=== PATIENT | female | born 1940 | race Caucasian/White ===

== ENCOUNTER → 2018-11-01 | Outpatient (CLI) | payer MEDICARE, SELFPAY ==
--- NOTE | 2018-11-01 16:27 | RAD_ITS ---
STUDY: X-RAY - LUMBAR SPINE REASON FOR EXAM: Female, 78 years old. Pain in right hip and lower back. TECHNIQUE: 3 view(s) of the lumbar spine were obtained. COMPARISON: May 02, 2015 FINDINGS: There is a grade 2 anterior spondylolisthesis of L4 on L5. There is a levoscoliosis of the lumbar spine. The bones are diffusely demineralized. There are chronic appearing compression deformities. There is diffuse demineralization with multi-level endplate spondylosis. There is multi-level degenerative disc disease with multi-level disc space narrowing. There is atherosclerotic calcification of the abdominal aorta without a demonstrated aneurysm. There is a round calcified focus within the pelvis and system with a calcified fibroid. RAD/Lumbar Spine 2 or 3 Views IMPRESSION: Levoscoliosis of the lumbar spine associated with degenerative changes of the spine, as detailed above. Atherosclerosis. Electronically Signed: Neeta Poole MD at 18:23 EDT Tel , Service support ,
--- NOTE | 2018-11-01 16:28 | RAD_ITS ---
STUDY: X-RAY - PELVIS AND RIGHT HIP REASON FOR EXAM: Female, 78 years old. Pain. TECHNIQUE: 3 views of the pelvis and hip. COMPARISON: None. FINDINGS: There is a non-specific bowel gas pattern. There are rounded calcifications within the pelvis consistent with calcified fibroids. There are vascular calcifications present. There are degenerative changes of the lumbar spine. Normal bilateral iliac wings, sacroiliac joints and visualized sacrum. Normal bilateral superior and inferior pubic rami. There are degenerative changes of the pubic symphysis. Normal bilateral ischial tuberosities. There are degenerative changes of the hips. RAD/HIP, UNI W/ Pelvis 2-3 Views IMPRESSION: Degenerative changes. Atherosclerosis. Electronically Signed: Neeta Poole MD at 17:36 EDT Tel , Service support ,
== END | disposition home or self-care (01) ==
LOC: RAD 16:24
PROVIDERS: Family Provider Physician Assistant; PCP Physician Assistant; Referring Provider Anesthesiology Pain Medicine; Visit Provider Anesthesiology Pain Medicine
DX: M54.5 Low back pain (principal); M25.551 Pain in right hip
CPT/HCPCS: 72100; 73502

== ENCOUNTER → 2019-01-21 | Outpatient (CLI) | payer MEDICARE, SELFPAY ==
[2018-11-10 14:12] VITALS: BMI 23.3
--- NOTE | 2019-01-21 16:45 | MRI_ITS ---
We are attempting to reach an attending provider to discuss findings. An addendum with communication details will be sent when the communication is complete. STUDY: MRI LUMBAR SPINE WITHOUT CONTRAST REASON FOR EXAM: Female, 78 years old. Right hip pain TECHNIQUE: Standardized fat and water weighted pulse sequences were obtained in the sagittal and axial planes. COMPARISON: None FINDINGS: T12-L1: Narrowed disc space and endplate spurring with desiccation of the disc and minimal bulging disc osteophyte complex. Normal bilateral facet joints. Normal central canal and bilateral lateral recesses. Normal bilateral intervertebral neural foramina. Normal lumbar lordosis. There is severe levo scoliosis. Normal conus medullaris that terminates at T12-L1 L1-2: There is mild compression of superior endplate of L2 demonstrating intramedullary bone marrow edema and linear fracture line.. Narrowed disc space with desiccation of disc and mild annular bulge with right foraminal disc protrusion. Right facet arthropathy.. Normal central canal. Moderate left lateral recess and neuroforaminal stenosis with more severe narrowing on the right.. L2-3: Degenerative endplate changes.. Normal disc height, desiccation and mild annular bulge. Bilateral facet arthropathy greater on the right. Normal central canal. Moderate left lateral recess and neuroforaminal stenosis with more severe narrowing on the right L3-4: Degenerative endplate changes. Old narrowing of the disc space with desiccation of the disc and moderate annular bulge.. Facet arthropathy greater on the left.. Normal central canal. Moderate bilateral recess stenosis and severe bilateral neuroforaminal stenosis. L4-5: Degenerative endplate changes. Grade 1 spondylolisthesis. Normal disc space height and mild bulging disc osteophyte complex. Bilateral facet arthropathy and thickening of ligamenta flava greater on the left. Mild narrowing of the central canal. Moderate right lateral recess and neural foraminal stenosis with more severe narrowing on the left. L5-S1: Normal endplates. Normal disc height, desiccation and minor annular bulge.. Bilateral facet arthropathy and thickening of ligamenta flava slightly more pronounced on the left. Normal central canal and bilateral lateral recesses. Mild right neuroforaminal stenosis and moderate narrowing on the left. Normal visualized sacral ala. 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 MRI/Spine Lumbar (Routine) IMPRESSION: Mild acute compression fracture of the superior endplate of L2 Severe scoliosis and degenerative changes with multilevel spinal stenosis secondary to disc disease and bony hypertrophy. Findings as above Electronically Signed: Erik Ruiz MD at 22:20 EDT , Service support ,
== END | disposition home or self-care (01) ==
LOC: MRI 16:16
PROVIDERS: Family Provider Physician Assistant; PCP Physician Assistant; Referring Provider Anesthesiology Pain Medicine; Visit Provider Anesthesiology Pain Medicine
DX: M54.9 Dorsalgia, unspecified (principal); M79.604 Pain in right leg
CPT/HCPCS: 72148

== ENCOUNTER → 2019-03-31 13:53 | Outpatient (CLI) | payer MEDICARE, SELFPAY ==
[2018-11-10 14:12] VITALS: BMI 23.3
[2019-03-31 15:02] LABS: Amphetamine Urine VISTA NEGATIVE (<1000 ng/mL); Barbiturate Urine VISTA NEGATIVE (< 200 ng/mL); Benzodiazepine Urine VISTA NEGATIVE (< 200 ng/mL); Cocaine Urine VISTA NEGATIVE (< 300 ng/mL); Ecstacy Urine VISTA NEGATIVE (< 500 ng/mL); Methadone Urine VISTA NEGATIVE (< 300 ng/mL); PCP Urine VISTA NEGATIVE (< 25 ng/mL); THC Urine VISTA NEGATIVE (< 50 ng/mL); Vista UDS pH Range 5
== END ==
PROVIDERS: Family Provider Physician Assistant; PCP Physician Assistant; Referring Provider Anesthesiology Pain Medicine; Visit Provider Anesthesiology Pain Medicine
DX: F11.20 Opioid dependence, uncomplicated (principal)
CPT/HCPCS: 80307

== ENCOUNTER → 2019-06-20 | Outpatient (CLI) | payer MEDICARE, SELFPAY ==
[2018-11-10 14:12] VITALS: BMI 23.3
--- NOTE | 2019-06-20 13:00 | SP.MBSS_ITS ---
PRIMARY / SECONDARY DIAGNOSIS: dysphagia (R13.10) REFERRING PHYSICIAN: Dr. Shad Freeman MD CURRENT DIET: regular textures, thin liquids DENTITION: WFL MENTAL STATUS: WNL RESPIRATORY STATUS: O2 via room air REASON FOR REFERRAL: The Patient is an 78 year old female referred for a modified barium swallow (MBS) study to objectively assess the Patients oropharyngeal swallow function under fluoroscopy secondary to reported post prandial globus sensation with occasional post prandial burning sensations described as moving superiorly through the esophagus; the Patient is currently under the care of a fisher swordfish (Dr. Freeman) with additional upcoming testing reported MEDICAL HISTORY: History of esophageal strictures status post dilation, gastroesophageal reflux disease, premature ventricular and atrial contraction, supraventricular tachycardia, status post cardiac radiofrequency ablation, status post total knee replacement, status post cataract surgery, status post hernia repair. PREVIOUS MODIFIED BARIUM SWALLOW STUDY: None ADDITIONAL OBJECTIVE ASSESSMENT RESULTS: 09/28/2015 upper GI study revealed moderate esophageal stricture in the upper esophagus most likely due to reflect esophagitis. 05/07/2015 upper GI series revealed an extremely large hiatal hernia with significant GE reflux; dilated esophagus with tertiary contractions and intraesophageal reflux ASSESSMENT PARAMETERS: The Patient participated in a Modified Barium Swallow (MBS) study on 06/20/2019. This study was recorded in the lateral view and images were sent to PACs for storage. Scoring was completed through each trial using the 8- point Penetration-Aspiration Scale (PAS) and summarized via the Videofluoroscopic Dysphagia Scale (VDS) and the Bolus Residue Scale (BRS), with severity scoring through the Dysphagia Severity Rating Scale (DSRS) and the Swallowing Performance Scale (SPS), and recommended diet textures through the International Dysphagia Diet Standardisation Initiative (IDDSI) RESULTS OF THE EVALUATION: The Patient presents with mastication and deglutition abilities found to be grossly within functional limits (DSRS: 1; SPS: 2) with abnormal esophageal phase findings. OBJECTIVE ASSESSMENT OF SWALLOW FUNCTION (QUANTITATIVE ? PER TRIAL): PENETRATION / ASPIRATION SCALE (CADENA): 1 = does not enter airway 2 = enters airway/above vocal folds/ejected 3 = enters airway/above vocal folds/not ejected 4 = enters airway/contacts vocal folds/ejected 5 = enters airway/contacts vocal folds/not ejected 6 = enters airway/below vocal folds/ejected 7 = enters airway/below vocal folds/not ejected despite effort 8 = enters airway/below vocal folds/no effort PENETRATION / ASPIRATION SCALE (SCORE): Thin liquid - 5 mL tsp.: 1 Thin liquids via cup (single sip): 1 Thin liquids via cup (single sip): 1 Thin liquids via cup (single sip): 1 Thin liquids via cup (sequential swallows): 2 Pudding via spoon: 1 Regular textured cookie: 1 Thin liquids via cup (single sip): 1 Thin liquids via cup (single sip): 1 OBJECTIVE ASSESSMENT OF SWALLOW FUNCTION (QUANTITATIVE ? AGGREGATE): VIDEOFLOROSCOPIC DYSPHAGIA SCALE (VDS): LIP CLOSURE: 0 (of 4) Intact BOLUS FORMATION: 0 (of 6) Intact MASTICATION: 0 (of 8) Intact APRAXIA: 0 (of 4.5) None TONGUE TO PALATE CONTACT: 0 (of 10) Intact PREMATURE BOLUS LOSS: 0 (of 4.5) None ORAL TRANSIT TIME: 0 (of 3) < 1.5s TRIGGERING OF PHARYNGEAL SWALLOW: 0 (of 4.5) Normal VALLECULAR RESIDUE: 2 (of 6) <10% LARYNGEAL ELEVATION: 0 (of 9) Normal PYRIFORM SINUS RESIDUE: 0 (of 13.5) None COATING OF PHARYNGEAL WALL: 0 (of 9) No PHARYNGEAL TRANSIT TIME: 0 (of 6) <1.0s ASPIRATION: 6 (of 12) Supraglottic penetration BOLUS RESIDUE SCALE (BRS): 2 (of 6) residue in valleculae OBJECTIVE ASSESSMENT OF SWALLOW FUNCTION (SEVERITY GRADING): DYSPHAGIA SEVERITY RATING SCALE (DSRS): 1 (within functional limits) SWALLOWING PERFORMANCE SCALE (SPS): 2 (within functional limits) OBJECTIVE ASSESSMENT OF SWALLOW FUNCTION (QUALITATIVE): ORAL PREPARATORY PHASE: competent bolus manipulation without fragmented swallowing (piecemeal deglutition); sufficient anterior oral containment during oral manipulation; preserved management of breathing / bolus formation ORAL TRANSITIONAL PHASE: no presence of transitional incompetence; no lingual discoordination (no tremor / undulations); no bolus consolidation impairments; no presence of premature posterior bolus loss. PHARYNGEAL PHASE: no functionally relevant dyssynchrony; appropriate hyolaryngeal excursion and laryngeal vestibule closure / pressure; sufficient / consistent laryngeal vestibule pressure generated to expel penetrated material; no signs of pharyngeal dysmotility; no signs of velopharyngeal impairments; ESOPHAGEAL PHASE: consolidated location of post prandial retention within the upper 3rd of the esophagus with what appears to be a rather large cricopharyngeal bar located at the C-7 location. INTERVENTION RECOMMENDATIONS AND CONSIDERATIONS: The Patient was able to comprehend information presented upon review and express recommended intake precautions (reduced bolus volume) to suggest high likelihood of compliance. I provided a brief overview of signs and symptoms of aspiration, with recommendations for the Patient to further discuss any further symptoms with the Patients primary care physician. No further skilled speech-language services warranted at this time targeting dysphagia. DIET TEXTURE RECOMMENDATIONS: Will recommend a regular textured (IDDSI: 7), thin liquid diet (IDDSI: 0) diet RECOMMENDED COMPENSATORY STRATEGIES: Consider cutting tougher textures into bite sized pieces, reduced bolus volume / rate of ingestion, seated upright at 90 degrees during PO intake, remain upright for 30-60 minutes post meal (GERD precaution) IMAGE COUNT: [id number] Jaxon Leach M.A., [employer]ER, CBIS MBSImP Certified, LSVT Certified [facility] Speech-Language Pathology Department [email or web address]
== END | disposition home or self-care (01) ==
LOC: RAD 13:06
PROVIDERS: Family Provider Physician Assistant; PCP Physician Assistant; Referring Provider Internal Medicine Gastroenterology; Visit Provider Internal Medicine Gastroenterology
DX: R13.10 Dysphagia, unspecified (principal)
CPT/HCPCS: 76000; 92611

== ENCOUNTER → 2020-01-09 | Outpatient (CLI) | payer MEDICARE, SELFPAY ==
[2019-11-09 13:06] VITALS: BMI 21.5
--- NOTE | 2020-01-09 11:51 | RAD_ITS ---
HISTORY: bilateral hip painNKI ADDITIONAL HISTORY: None provided. EXAMINATION/TECHNIQUE: XR Hips Bilateral with Pelvis when performed; 3-4 Views Bilateral Number of images including paperwork: 5 COMPARISON: None FINDINGS: BONES: No acute fracture. JOINTS: No subluxation. Moderate degenerative changes of the hips with joint space narrowing. Degenerative changes of the sacroiliac joints, symphysis pubis and visible spine. SOFT TISSUES: No distinct foreign body. Calcified uterine fibroid. Vascular calcifications. RAD/Hips B/L min 2 views w/ Pelvis IMPRESSION: Degenerative changes without acute osseous abnormality. at 0721 Reported and signed by: Tracy Clark MD Electronically Signed: Tracy Clark MD at 7:21 EDT Tel , Service support ,
== END | disposition home or self-care (01) ==
PROVIDERS: PCP Family Medicine; Referring Provider Anesthesiology Pain Medicine; Visit Provider Anesthesiology Pain Medicine
DX: M25.551 Pain in right hip (principal); M25.552 Pain in left hip
CPT/HCPCS: 73521

== ENCOUNTER → 2020-02-27 | Outpatient (CLI) | payer MEDICARE, SELFPAY ==
[2019-11-09 13:06] VITALS: BMI 21.5
== END | disposition home or self-care (01) ==
LOC: MFPLAB 16:52
PROVIDERS: PCP Family Medicine; Visit Provider Family Medicine
DX: Z20.828 Contact with and (suspected) exposure to other viral communicable diseases (principal)
CPT/HCPCS: 87635; U0003

== ENCOUNTER 2020-03-12 17:17 | Emergency (ER) | payer MEDICARE, SELFPAY ==
[2019-11-09 13:06] VITALS: BMI 21.5
[2020-03-12 17:18] VITALS: BP 100/63; PULSE 82; RESP 16; TEMP 36.2; O2SAT 96; BMI 21.4
--- NOTE | 2020-03-12 17:59 | ED.VIS.GEN ---
History of Present Illness Chief Complaint: Weakness Informant: Patient Narrative: Patient is an 79-year-old female with a past medical history of rheumatoid arthritis who presents to the emergency department for multiple complaints. She has been having significant pain in her joints including her lower extremities, hips mostly. She was taken off all of her RA medications at the beginning of February she states because of coronavirus. She did test positive after being taken off of these medications. She states that over the 1 week she was starting to get better but now she feels like she is getting much worse. She denies any shortness of breath or chest pain. She is had a mild nonproductive cough. She has had a fever that comes and goes. She denies any urinary symptoms. She denies any change in bowel habits. Denies any falls or trauma causing her joint pain. She has not been taking anything for this. She feels very weak in general. No unilateral focality to this. She has not been able to eat or drink lately given her nausea but has not been vomiting. She lives with her grandson currently. Past Medical History - Allergies and Home Meds Allergies/Adverse Reactions: Allergies amoxicillin trihydrate [From Trimox] Allergy (Verified 03/12/20 17:21) Rash Primary Care Physician: Po Ford MD [Primary Care Provider] - 3-5 Days Prior records reviewed: Yes - Rheumatoid arthritis Smoking Status: Never smoker Review of Systems All systems negative except as indicated General: Reports: Fever. Denies: Chills, Sweats Eyes: Denies: Visual changes - bilaterally, Diplopia ENT: Denies: Rhinorrhea, Sore throat Cardiovascular: Denies: Chest pain, Palpitations Respiratory: Reports: Cough. Denies: Dyspnea, Dyspnea on exertion Gastrointestinal: Reports: Abdominal pain - Chronic, at baseline, Nausea. Denies: Vomiting, Diarrhea, Melena, Hematochezia Genitourinary: Denies: Dysuria, Hematuria, Frequency Musculoskeletal: Reports: Arthralgias, Back pain, Extremity Pain Skin: Denies: Rash, Wounds Neurological: Denies: Headache, Weakness, Numbness Physical Exam Vital Signs/Narrative: Vital Signs Temp Pulse Resp BP Pulse Ox 03/12/20 17:18 97.2 F L 82 16 100/63 96 Inital Vital Signs reviewed: Yes General: Well nourished, Well developed, No Acute Distress Head: Normocephalic, Atraumatic Eyes: Perrl, EOMI ENT: No rhinorrhea, Dry mucous membranes Neck: Supple, Nontender Cardiovascular: Regular rate, Regular rhythm, No murmurs Respiratory: No distress, CTA bilaterally, Chest nontender Abdomen: Soft, Nontender, Nondistended, Normal bowel sounds Back: Nontender, Normal Inspection Extremities: Nontender, No edema. Negative for: Edema, Calf Tenderness Skin: Normal color, No rash Neurological: Alert, Cranial nerves II-XII grossly intact, Normal Strength, Normal Sensation Psychological: Normal affect, Normal Mood Diagnostic/Tx/Re-eval - Medical Decision Making Patient presents to the emergency department for joint pain that is diffuse. She has a history of RA and has been off of her prednisone and methotrexate given the immunosuppression and current pandemic. She did test positive for coronavirus 2 weeks ago. She states that she felt like she recovered from that but all of her other symptoms have been getting worse. She has been not eating or drinking well. She feels generally weak. Has been having significant joint pain. Will check basic lab work at this time. Will give [place] for symptomatic treatment. Lab work-up did not reveal any significant acute abnormalities. She is not anemic. No elevated white blood cell count. Kidney function within normal limits. Urine showed some evidence of possible UTI but she is denying any symptoms so we will send for culture and treat if this is positive. After the [place] and IV fluids she is feeling much better and would like to be discharged home. She was able to ambulate to the bathroom without any issues. This is been 2 weeks since her coronavirus test was positive but she is did start to feel better after the initial first week I do feel that she would probably benefit from restarting her prednisone and methotrexate. 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 At this time will discharge home in stable condition. Warning signs and symptoms for which to return to the ED were reviewed with her. She understands and is agreeable this plan. All questions answered. ED Disposition - Plan for ED Patient: Disposition: Home or Assisted Living Diagnosis: Joint pain, Generalized weakness Instructions: ED JOINT PAIN, ED Weakness [facility] Referrals: Po Ford MD [Primary Care Provider] - 3-5 Days
[2020-03-12] MEDS: HYDROcodone Bitartrate/Apap 5/325 Tablet PO (18:10)
[2020-03-12] MEDS: 0.9% Normal Saline 1,000 ML 999 ML IV (18:13)
[2020-03-12 18:53] LABS: Absolute Neutrophil Count 7.1 X10^3/uL (2.0-7.7); Basophil# 0.03 X10^3/uL; Basophil% 0.3 % (0-1); Eosinophil# 0.01 X10^3/uL; Eosinophils% 0.1 % (0-5); Hemoglobin 12.9 g/dL (12.0-15.0); Lymphocyte % 10.9 % (19-41); Mean Corp Hgb Conc 33.1 g/dL (32-36); Mean Corpuscular Hgb 32.3 pg (27.0-32.0); Mean Corpuscular Volume 97.7 fL (81-99); Mean Platelet Vol. 11.5 fl (6.2-12.0); Monocyte# 1.78 X10^3/uL; Monocyte% 17.7 % (0-10); NRBC Flagged by Analyzer 0 % (0-5); Neutrophil # 7.09 X10^3/uL (2.7-7.7); Neutrophil % 70.5 % (47-70); POSITIVE DIFFERENTIAL YES; Platelet Count 254 K/mm3 (150-450); RBC Distribution Width CV 13.4 % (11.6-14.6); RBC Distribution Width SD 47.8 fl (35.1-43.9); Red Blood Count 3.99 M/mm3 (4.2-5.4); White Blood Count 10.1 K/mm3 (4.4-11.0)
[2020-03-12 19:02] LABS: Differential Indicated SCAN CRITERIA MET
[2020-03-12 19:09] LABS: Anion Gap 7 (5-15); BUN 15 mg/dL (7-18); BUN/Creat Ratio 23.6 RATIO (10-20); Calcium,Total 9.2 mg/dL (8.5-10.1); Chloride 100 mmol/L (98-107); Creatinine, Serum 0.64 mg/dL (0.55-1.02); EST Glomerular Filtration Rate 95 mL/min (>60); Est Glom Filt Rate - Afr Amer 115 mL/min (>60); Glucose 97 mg/dL (74-106); Magnesium 2.1 mg/dL (1.6-2.6); Sodium Level 136 mmol/L (136-145)
[2020-03-12 19:19] LABS: Differential Comment SCANNED
[2020-03-12 19:37] LABS: Bacteria 0 SEEN /hpf (None Seen)
[2020-03-12 19:40] LABS: Color, Urine Amber (Yellow); Glucose, Dipstick Normal (Normal); Ketone-Dipstick 15 mg/dl (Negative); Leukocyte Esterase-Dipstick 500 /ul (Negative); Nitrite-Dipstick Negative (Negative); Occult Blood-Urine 10 /ul (Negative); Protein-Dipstick 30 mg/dl (Negative); Specific Gravity, Urine 1.025 (1.002-1.030); Urine Clarity Sl. Cloudy (Clear); Urine Urobilinogen 4 mg/dl (Normal)
[2020-03-12 19:45] LABS: Urine Bilirubin Dipstick 1 mg/dL (Negative)
[2020-03-12 19:49] LABS: White Blood Cells 10-25 SEEN /hpf (0-5)
[2020-03-12 19:50] LABS: Squamous Epithelial Cells - UA 0-5 SEEN /hpf (5-10)
[2020-03-12 19:51] LABS: Mucous, Urine 1+ /hpf (<or=2+); Red Blood Cells-Urine 0 SEEN /hpf (0-5); Renal Epithelial Cells 0-5 SEEN /hpf (0-5)
[2020-03-12 20:07] VITALS: BP 117/70; PULSE 74; RESP 16; O2SAT 96
== END 2020-03-12 20:07 | disposition home or self-care (01) ==
PROVIDERS: Emergency Provider Emergency Medicine; PCP Family Medicine
DX: R53.1 Weakness (principal); M06.9 Rheumatoid arthritis, unspecified
CPT/HCPCS: 80048; 81001; 83735; 84484; 85025; 96360; 96361; 99284; J7030; A4216

== ENCOUNTER 2021-02-13 10:00 | Outpatient (RCR) | payer MEDICARE, SELFPAY ==
--- NOTE | 2021-01-02 10:56 | HP.PTEVAL ---
Patient's Visit Information ESTEBAN VALERIO is a 80 year old F referred to Physical Therapy by Dr. Po Ford MD with a diagnosis of Dizzyness with walking.. Date of Evaluation: 01/02/21 Physical Therapist: Parviz Joshua, GEORGETTET, OCS, CSCS - Visit Plan Frequency: 2x /Week Duration: 4-6 Weeks Plan: 2x/week for 4-6 weeks for. 1. monitor any dizzyness for feeligns of unsteaddiness vs spinning(not present today or lately). 2. Teach and progress balance ex and LE strength ex at counter . Emphasize weight shifts, ec, foam and functional. 3. Encourage use of cane for safety - Subjective Feels dizzy. Has to be careful when she first gets up. This started in the summer insidiously. Started lying flat in bed adn ceiling started swirling for short time. Now just feeling wobbly. No falls. Balance is normal but has been less for 2-3 years. Happens when she gets up from chair, not anymore with lying or turning in bed. Activities are pretty normal just has to be very careful. Sleep is OK on meds from / [place]. Not employed. Hobbies include working in garden, is being careful and using gardening stool. Basic ADLs are going OK. Has neuropathy - Objective Walks without pushoff but I on firm flat surface. Trasnfer I with UE, steps reciprocal with two rails. Cervical aROM WFL and some pain end range rotation B. UE AROM limited in elevation and ext rotation due to RA. reflexes 2/3 bi and tri. Sensation UE WNL to gross light touch. LE Sensation inn feet at deficit to gross light touch. LE strength 4-/5, except PF whcih is 3 adn unable to heel raise or push off with gait. Obvious neuropathic gait pattern avoiding push off. Flexibilitya dn ROM WNL LE, Pes planus B with collapsing arches. - B hallpike brody. - roll test. Oculomotor: unremarkable. no nystagmus with gaze or head shake. - skew eye deviation. - ocular tilt. - head thrust. Pursuit is normal, convergence is slow. Saccades are slow adn give a little JACKSON but no dizzyness. VOR is normal albeit a little slow but no symptoms. No dizzyness able to be reproduced today but unsteadiness getting out of chair likely due to neuropathy. - Balance/Special Test Scores Functional Gait Assessment Score: 21 % Disability: 30.0000 CATSIB Score (Max score 120 seconds): 65 - Goals Goal 1:: Pt feel like balance is imroved 33% and manageable dizzyness unsteadiness. Goal Time Frame: 4-6 Weeks Goal 2:: I approp HEP to minimzie fall risk for balance and general LE ex Goal Time Frame: 4-6 Weeks Goal 3:: FGa to reduce fallr isk. Goal Time Frame: 4-6 Weeks - Rehabilitation Potential Physical Therapy Diagnosis: neuropathy creating unsteadiness with ambulation initially. Rehabilitation Potential: Fair - Anticipated Interventions Patient/Client Instruction: Educate patient on: Condition, Plan of Care For the Purpose of:: To improve muscle performance and motor function, To increase tolerance to activity/condition/position, To improve gait and locomotor functions Therapeutic Exercise to Include: Strength training, Balance training, Neuromotor development For the Purpose of:: To improve muscle performance and motor function, To increase tolerance to activity/condition/position, To improve gait and locomotor functions, To improve safety Thank you for the opportunity to evaluate your patient. For Medicare and Medicare HMO plans, please review the plan of care and approve it. It will need to be FAXED BACK to us at [phone] for Medicare purposes. For Medicare only, by signing this I certify the plan of care. Please let me know if there are questions or concerns regarding this plan of care. Physician Signature: Date:
--- NOTE | 2021-02-13 10:50 | HP.PTDCSUM_ITS ---
It has been my pleasure to treat ESTEBAN VALERIO referred by Dr. Po Ford MD, with the diagnosis of Dizzyness with walking. for a total of 6 visit(s). Discharge Date: 02/13/21 Please see the following information for a summary of their discharge status. Subjective: I think I am doing better. Not llurching so much when I walk. I can walk outside on eneven ground. No dizzyness with exercises , only if gets up too fast momentarily. HEP going well. % Improvement: 60 Objective/Function: FGA is +3 and patient has gained I with HEP. May talk to doctor about general strengthening exercises as she does have silver sneakers as an option but is not 100% sure what to do out in the gym(PT vs vocational trainer) Goal 1:: Pt feel like balance is imroved 33% and manageable dizzyness unsteadiness. Goal Progress: Goal Met Goal 2:: I approp HEP to minimzie fall risk for balance and general LE ex Goal Progress: Goal Met Goal 3:: FGa to reduce fallr isk. Goal Progress: Goal Met Plan: d/c to HEP, pt had visit from son which pushed her therapy back for a week or more and she ran out of time for all visits but doing well despite that. If there are questions or concerns regarding this patient's physical therapy, please feel free to call me at [phone]. Thank you for the referral of this patient. Sincerely, Parviz Joshua, DPT, OCS, CSCS Balance/Gait/Functional tests - Balance/Special Test Scores Functional Gait Assessment Score: 24 % Disability: 20.0000 CATSIB Score (Max score 120 seconds): 65 Lower Extremity Functional Score: 43
== END 2021-02-13 19:00 | disposition home or self-care (01) ==
LOC: PT 10:00
PROVIDERS: PCP Family Medicine; Referring Provider Family Medicine; Visit Provider Family Medicine
DX: R42 Dizziness and giddiness (principal)
CPT/HCPCS: 97110; 97162

== ENCOUNTER 2021-03-06 11:48 | Emergency (ER) | payer MEDICARE, SELFPAY ==
[2021-03-06 11:49] VITALS: BP 155/96; PULSE 83; RESP 16; TEMP 36.3; BMI 23.0
--- NOTE | 2021-03-06 12:13 | ED.VIS.BACK ---
HPI History of Present Illness Chief Complaint: Back Onset/Context/Timing Onset: Weeks (1) Context: - (Unsure of exact onset, thinks it was severe fairly quick but does not remember what she was doing or the exact day of onset last week) Injury: - (No injury) Timing: Continuous Quality: Aching Location: - (Mid back bilateral/across without radiation) Current Severity: Severe Maximum Severity: Severe Worsened by: improves with Movement Relieved by: Remaining Still Associated Symptoms Associated Symptoms: Abdominal Pain; Negative for Numbness, Tingling, Radiation to Right Leg, Radiation to Left Leg, Fever, Dysuria, Unable to Ambulate, Unable to Transfer, Urinary Retention, Urinary Incontinence, Constipation and Fecal Incontinence Narrative Narrative: Patient states for about the last week she has had this pain in her mid back as well as burning abdominal pain up the middle toward her esophagus/chest. All of this has been constant. She states she takes acid reflux medication and it apparently is not working because she associates this burning abdominal discomfort with reflux that she has had off and in the past. States she had a stomach surgery in [place], she is not sure which she had done but denies weight loss surgery or a Rosemary. Other than the burning esophagus discomfort she denies any other chest symptoms/angina/pain. No dyspnea or palpitations. No focal neurologic symptoms, no radiation of pain down her legs. Pain is not really in her low back it is intermittent upper back, below the scapula. Also states in the same period of time her knees have been more sore than usual, they were both replaced, with the right one being worse and warm but not red. She is stable to move them and walk on them. [facility] Medical History MVP (mitral valve prolapse) Premature atrial contraction Premature ventricular contraction Supraventricular tachycardia Home Medications methotrexate sodium (PF) 75 mg IM QWEEK 11/29/13 [History Last Taken Unknown] prednisone 5 mg PO DAILY 11/29/13 [History Last Taken Unknown] alendronate 70 mg tablet 70 mg PO QWEEK 11/10/18 [History Last Taken Unknown] folic acid 400 mcg tablet 0.8 mg PO DAILY@0800 tab 11/10/18 [History Last Taken Unknown] multivitamin 1 tab PO DAILY 11/10/18 [History Last Taken Unknown] tofacitinib 5 mg tablet 5 mg PO BID 11/10/18 [History Last Taken Unknown] tramadol 50 mg tablet 50 mg PO BID 11/09/19 [History Last Taken Unknown] celecoxib 200 mg capsule 200 mg PO DAILY PRN cap 12/12/20 [History Last Taken Unknown] famotidine 20 mg tablet 20 mg PO BID 12/12/20 [History Last Taken Unknown] loratadine 10 mg tablet 10 mg PO DAILY PRN 12/12/20 [History Last Taken Unknown] hydrocodone-acetaminophen 1 tab PO Q4H PRN PRN 2 Days #10 tablet 03/06/21 [Rx Last Taken Unknown] Allergy/AdvReac Type Severity Reaction Status Date / Time amoxicillin trihydrate Allergy Rash Verified 12/12/20 13:32 [From Trimox] Family History Father CAD (coronary artery disease) CVA (cerebral vascular accident) Hypertension Brother CAD (coronary artery disease) Mother No problems noted. Surgical History H/O total knee replacement History of cardiac radiofrequency ablation (~2000) Hx of cataract surgery Hx of hernia repair Social History Smoking Status: Never smoker ROS ROS ED Constitutional Constitutional ED: Denies chills or fever(s) Eyes Eyes: Denies change in vision or diplopia ENT ENT ED: Denies rhinorrhea or sore throat Cardiovascular Cardiovascular: Reports chest pain; Denies palpitations Respiratory/Chest Respiratory/Chest: Denies cough or dyspnea Gastrointestinal Gastrointestinal: Reports abdominal pain; Denies diarrhea, nausea or vomiting Genitourinary Genitourinary ED: Denies dysuria or hematuria Musculoskeletal Musculoskeletal: Reports as per HPI, back pain, extremity pain and joint pain; Denies neck pain Integumentary Denies abscess or rash Neurologic Neurologic: Denies headache(s), paresthesias or weakness Psychiatric Psychiatric: Denies anxiety or suicidal thoughts EXAM Physical Exam Const Vital Signs: 03/06/21 11:49 03/06/21 13:18 03/06/21 15:02 Temperature 97.3 F L Temperature Source Temporal Pulse Rate 83 62 80 Respiratory Rate 16 22 H 18 Blood Pressure 155/96 H 136/65 H 154/63 H Blood Pressure Mean 115 88 93 Pulse Ox 97 98 Oxygen Delivery Method Room Air Room Air Positive well nourished and well developed General Appearance ED: well developed and NAD HEENT Reports moist mucous membranes normocephalic and atraumatic Eyes PERRL and EOMs intact bilaterally Neck full ROM and supple Chest Wall inspection of chest normal and palpation of chest normal Resp normal respiratory effort and clear to auscultation bilaterally Cardio regular rate, regular rhythm and no murmurs Rate: Negative for tachycardic GI non-tender and non-distended Auscultation: normoactive bowel sounds Palpation: soft Back/Spine no CVA tenderness and normal to inspection Back/Spine Narrative: Straight leg raises increase her mid upper back pain but no radicular symptoms General Back: other FROM Lumbar Spine / Lower Back: straight leg raise negative bilaterally Extremity normal to inspection Extremity Narrative: Both knees normal-appearing with well-healed TKA scars and full range of motion without apparent difficulty without effusions. The right one is warmer than the left. There is no erythema or abnormal skin. General Extremety ED: Negative for edema, pulses abnormal or tenderness General Extremity: Negative for edema or pulses abnormal Neuro oriented x3, CN's II-XII intact bilaterally and no sensory deficits noted Sensorium / Orientation: awake and alert Motor Exam: strength 5/5 throughout Skin no rashes or lesions noted and no wounds MDM MDM MDM Narrative Medical decision making narrative: Patient was given morphine for pain which did take the edge off. She was seen by nursing walking comfortably to and from the bathroom but then moaning in pain whenever she would lay in bed. Given this patient's age, there is a wide differential diagnosis including musculoskeletal etiologies, aortic catastrophes, pulmonary embolus, pancreatitis, diverticulitis, cholecystitis, as well as sensory peripheral neuropathy in the thoracic spine. Therefore CTA of the chest abdomen pelvis was performed, it is negative for any obvious explanation of her pain. Incidentally it does show a right ovarian cystic mass 6x4, of unknown etiology. I discussed this with the patient, including the possibility that it could represent something malignant, and she does indicate that she wants to explore this more so she will be referred to gynecology since she does not have a local 1. She also does not have a PCP since she saw Dr. Ford and he retired and she has not been reassigned anyone to this point that she knows of. On reevaluation, she also states that she sees pain management. She sees him for her low back which she did not tell me early on in the history, and then goes on to say that the pain she has had in the past week or so has been completely different than her chronic low back pain that she associates with her rheumatoid arthritis, and this has indeed been higher. She will be given a short prescription for some analgesics, referral to gynecology and primary care. She is comfortable with that plan. Lab Data Attestation: I reviewed the patient's lab results. Labs: Laboratory Results - last 24 hr 03/06/21 03/06/21 03/06/21 12:20 12:20 13:55 WBC 5.8 RBC 3.81 L Hgb 12.1 Hct 37.6 MCV 98.7 MCH 31.8 MCHC 32.2 RDW Std Deviation 52.8 H RDW Coeff of Eusebio 14.8 H Plt Count 331 MPV 10.9 Immature Gran % (Auto) 0.300 Neut % (Auto) 79.9 H Lymph % (Auto) 9.4 L [place] % (Auto) 9.4 Eos % (Auto) 0.5 Baso % (Auto) 0.5 Absolute Neuts (auto) 4.6 Absolute Lymphs (auto) 0.54 L Nucleated RBC % 0 Differential Comment SCANNED Sodium 140 Potassium 4.4 Chloride 107 Carbon Dioxide 28.0 Anion Gap 5 BUN 18 Creatinine 0.81 Estim Creat Clear Calc 44.30 Est GFR (MDRD) Af Amer 87 Est GFR (MDRD) Non-Af 72 BUN/Creatinine Ratio 22.2 H Glucose 104 Calcium 9.2 Total Bilirubin 0.40 AST 28 ALT 16 Alkaline Phosphatase 103 Troponin I High Sens 6 Total Protein 6.9 Albumin 3.3 Globulin 3.6 Albumin/Globulin Ratio 0.9 Lipase 83 Urine Color Yellow Urine Clarity Sl. Cloudy Urine pH 7.0 Ur Specific [place] 1.010 Urine Protein Negative Urine Glucose (UA) Normal Urine Ketones Negative Urine Occult Blood Negative Urine Nitrite Negative Urine Bilirubin Negative Urine Urobilinogen Normal Ur Leukocyte Esterase 100 H Urine RBC 0 SEEN Urine WBC 0-5 SEEN Ur Squamous Epith Cells 0-5 SEEN Urine Bacteria 0 SEEN Urine Mucus 0 SEEN Radiography Diagnostic Testing: Clinical Impression(s) from Imaging Studies Chest/Abdomen/Pelvis CTA 03/06/21 13:30 IMPRESSION: No evidence of aortic dissection. Mild scarring at the lung bases. Enlarged calcified fibroid uterus. There is a 5.7 cm x 3.8 cm right ovarian cystic mass. Electronically Signed: Tanner Clemens MD at 14:08 EDT , Service support , Discharge Plan Triage Chief Complaint: Back ED Provider: Eb Kendrick Dx/Rx/DC Orders Clinical Impression: Acute bilateral thoracic back pain, Mass of right ovary, Chronic low back pain Instructions: ED Back Care Tips Prescriptions: New hydrocodone-acetaminophen [hydrocodone-acetaminophen] 1 TABLET tablet 1 tab PO Q4H PRN PRN (Reason: Pain) 2 Days Qty: 10 RF: 0 No Action Xeljanz 5 mg tablet 5 mg PO BID RF: 0 alendronate [Fosamax] 70 mg tablet 70 mg PO QWEEK RF: 0 multivitamin Tablet 1 tab PO DAILY RF: 0 tramadol 50 mg tablet 50 mg PO BID RF: 0 loratadine [Claritin] 10 mg tablet 10 mg PO DAILY PRNRF: 0 famotidine 20 mg tablet 20 mg PO BID RF: 0 prednisone 5 MG tablet 5 mg PO DAILY RF: 0 methotrexate sodium (PF) 25 MG/ML solution 75 mg IM QWEEK RF: 0 folic acid 400 mcg tablet 0.8 mg PO DAILY@0800 RF: 0 celecoxib 200 mg capsule 200 mg PO DAILY PRNRF: 0 Primary Care Provider: Care Physician,No Primary Referrals: Cade Pond MD [STAFF PHYSICIAN] - (call for follow up appt) Batool Marsh MD [STAFF PHYSICIAN] - (Call to make an appointment for further evaluation of right ovarian mass) Care Physician,No Primary [Primary Care Provider] - Disposition Disposition: Home, Self Care
[2021-03-06] MEDS: Ondansetron 4 MG/2 ML Vial IV (12:23)
[2021-03-06] MEDS: Morphine 4 MG/ML Syringe IV (12:23)
[2021-03-06] MEDS: Contrast Allergy Safety Check IV (12:26)
[2021-03-06 12:29] LABS: Absolute Lymphocyte Count 0.54 X10^3/uL (0.83-4.51); Absolute Neutrophil Count 4.6 X10^3/uL (2.0-7.7); Basophil# 0.03 X10^3/uL; Basophil% 0.5 % (0-1); Eosinophil# 0.03 X10^3/uL; Eosinophils% 0.5 % (0-5); Hematocrit 37.6 % (37-47); Hemoglobin 12.1 g/dL (12.0-15.0); Lymphocyte # 0.54 X10^3/ul (0.83-4.51); Lymphocyte % 9.4 % (19-41); Mean Corp Hgb Conc 32.2 g/dL (32-36); Mean Corpuscular Hgb 31.8 pg (27.0-32.0); Mean Corpuscular Volume 98.7 fL (81-99); Mean Platelet Vol. 10.9 fl (6.2-12.0); Monocyte# 0.54 X10^3/uL; Monocyte% 9.4 % (0-10); NRBC Flagged by Analyzer 0 % (0-5); Neutrophil % 79.9 % (47-70); POSITIVE DIFFERENTIAL YES; Platelet Count 331 K/mm3 (150-450); RBC Distribution Width CV 14.8 % (11.6-14.6); RBC Distribution Width SD 52.8 fl (35.1-43.9); Red Blood Count 3.81 M/mm3 (4.2-5.4); White Blood Count 5.8 K/mm3 (4.4-11.0)
[2021-03-06 12:42] LABS: Differential Indicated SCAN CRITERIA MET
[2021-03-06 12:46] LABS: Differential Comment SCANNED
[2021-03-06 13:10] LABS: ALB/GLOB Ratio 0.9 RATIO (0.9-2.4); AST(SGOT) 28 U/L (15-37); Alanine Aminotransfer ALT/SGPT 16 U/L (13-56); Albumin, Serum 3.3 g/dL (3.2-5.0); Alkaline Phosphatase 103 U/L (45-117); Anion Gap 5 (5-15); BUN 18 mg/dL (7-18); BUN/Creat Ratio 22.2 RATIO (10-20); Calcium,Total 9.2 mg/dL (8.5-10.1); Chloride 107 mmol/L (98-107); Creatinine, Serum 0.81 mg/dL (0.55-1.02); EST Glomerular Filtration Rate 72 mL/min (>60); Est Glom Filt Rate - Afr Amer 87 mL/min (>60); Globulin 3.6 g/dL (2.2-4.2); Glucose 104 mg/dL (74-106); Lipase 83 U/L (73-393); Potassium 4.4 mmol/L (3.5-5.1); Protein, Total 6.9 g/dL (6.4-8.2); Sodium Level 140 mmol/L (136-145); Troponin-I HS 6 pg/mL (3.0-54.0)
[2021-03-06 13:18] VITALS: BP 136/65; PULSE 62; RESP 22; O2SAT 97
--- NOTE | 2021-03-06 13:30 | CT_ITS ---
STUDY: CTA CHEST AND CTA ABDOMEN/PELVIS WITH CONTRAST REASON FOR EXAM: Female, 80 years old. Upper back pain, abd pain RADIATION DOSAGE (If Supplied By Facility): CTDIvol = ( 14.37 ) mGy, DLP = ( 718.26 ) mGycm TECHNIQUE: The examination was performed with the intravenous administration of IV 100mL Isovue-370. Post-processing of the angiographic images was performed, with multiplanar reformation and 3D reconstruction. Individualized dose optimization techniques were used for this CT. COMPARISON: No relevant priors. FINDINGS: CTA Chest Normal enhancement of the main pulmonary artery and right and left pulmonary arteries. Normal enhancement of the bilateral peripheral pulmonary arteries. There is no demonstrated pulmonary embolism. There is atherosclerotic calcification of the aortic arch with tortuosity. There is no demonstrated aortic dissection. Normal heart and pericardium. Normal mediastinum. Normal hilar regions. Normal visualized trachea and bronchi. The lungs are well expanded. Increased linear markings at the lung bases suggestive of a linear atelectasis and/or scarring. Linear scarring and/or atelectasis in the posterolateral aspect of the right Normal pleura. Normal chest wall structures. There are degenerative changes of thoracic spine. Almost complete collapse of the T4 vertebrae. Increased kyphosis. CTAAbdomen T Pelvis The visualized lung bases are unremarkable. The visualized portions of the heart are within normal limits. Normal liver. Normal gallbladder and extrahepatic biliary system. Normal spleen. Normal pancreas. Normal bilateral adrenal glands. Normal right kidney. Normal left kidney. The patient is status post hiatal hernia repair. Normal small intestine. There are multiple colonic diverticula consistent with diverticulosis. There is evidence of surgical anastomosis in the ascending colon. The appendix is visualized and appears normal. There is scattered atherosclerotic calcification of the abdominal aorta, without a demonstrated aneurysm. Normal inferior vena cava. Normal retroperitoneum. Normal urinary bladder. The largest calcified fibroid uterus. There is a 5.7 cm x 3.8 cm right ovarian cystic mass. Normal abdominal wall. There are diffuse degenerative changes of the visualized lumbar spine. Levoscoliosis. CT/CTA Chst, Abd, Pel W and/or WO IMPRESSION: No evidence of aortic dissection. Mild scarring at the lung bases. Enlarged calcified fibroid uterus. There is a 5.7 cm x 3.8 cm right ovarian cystic mass. Electronically Signed: Tanner Clemens MD at 14:08 EDT , Service support ,
--- NOTE | 2021-03-06 14:03 | ED.RN ---
PT AMBULATED TO BATHROOM WITHOUT DIFFICULTY. UPON REENTERING ROOM WITH FAMILY PT BEGINS MOANING AND VERBALIZING DISCOMFORT WHILE GETTING INTO BED. PT. AND FAMILY UPDATED THAT RESULTS ARE PENDING.
[2021-03-06 14:06] LABS: Bacteria 0 SEEN /hpf (None Seen); Mucous, Urine 0 SEEN /hpf (<or=2+); Red Blood Cells-Urine 0 SEEN /hpf (0-5)
[2021-03-06 14:13] LABS: Color, Urine Yellow (Yellow); Glucose, Dipstick Normal (Normal); Ketone-Dipstick Negative (Negative); Leukocyte Esterase-Dipstick 100 /ul (Negative); Nitrite-Dipstick Negative (Negative); Occult Blood-Urine Negative /ul (Negative); Protein-Dipstick Negative (Negative); Urine Bilirubin Dipstick Negative (Negative); Urine Clarity Sl. Cloudy (Clear); Urine Urobilinogen Normal (Normal)
[2021-03-06 14:18] LABS: Squamous Epithelial Cells - UA 0-5 SEEN /hpf (5-10)
[2021-03-06 14:19] LABS: White Blood Cells 0-5 SEEN /hpf (0-5)
[2021-03-06 15:02] VITALS: BP 154/63; PULSE 80; RESP 18; O2SAT 98
[2021-03-06 15:30] VITALS: BP 135/78; PULSE 72
[2021-03-06] MEDS: oxyCODONE 5 MG Tablet PO (15:31)
== END 2021-03-06 15:38 | disposition home or self-care (01) ==
PROVIDERS: Emergency Provider Emergency Medicine
DX: M54.6 Pain in thoracic spine (principal); G89.29 Other chronic pain; M54.50 Low back pain, unspecified; N83.9 Noninflammatory disorder of ovary, fallopian tube and broad ligament, unspecified
CPT/HCPCS: 71275; 74174; 80053; 81001; 83690; 84484; 85025; 96361; 96374; 96375; 99285; J7040; Q9967; A4216; J2405

== ENCOUNTER → 2021-03-15 09:56 | Outpatient (CLI) | payer MEDICARE, SELFPAY ==
--- NOTE | 2021-03-15 10:03 | US_ITS ---
STUDY: ULTRASOUND OF THE FEMALE PELVIS - COMPLETE REASON FOR EXAM: Female, 80 years old. OVARIAN MA TECHNIQUE: Transabdominal COMPARISON: CT 03/06/2021 FINDINGS: The uterus is anteverted and is in a midline position. The uterus measures 5.6 x 3.8 cm. Normal uterine cervix. The endometrium measures 1.4 mm in thickness, and is hyperechoic. There is no demonstrated endometrial mass. Uterine fibroid visualized measuring 28x 27 mm. I.U.D. - The patient does not have an I.U.D. The right ovary is visualized. The right ovary measures 6 x 6 cm. There is 51 x 52mm right ovarian cyst or ovarian mass. There is no visualized right adnexal mass or complex lesion. There is normal arterial and normal venous vascularity. There is nonvisualization of the left ovary due to overlying bowel gas. There is no fluid in the cul-de-sac. Urinary bladder measures 73 cc. US/Pelvic (Non ) IMPRESSION: Fibroid uterus. Cystic lesion of the right ovary. SRU Consensus Conference guidelines (Chan, et. al. Radiology 2019;293:359-371) suggest no follow-up is necessary. Electronically Signed: Jovan Lowe MD at 16:54 EDT , Service support ,
== END ==
PROVIDERS: Referring Provider Obstetrics & Gynecology; Visit Provider Obstetrics & Gynecology
DX: N83.8 Other noninflammatory disorders of ovary, fallopian tube and broad ligament (principal)
CPT/HCPCS: 76856

== ENCOUNTER → 2021-03-28 15:08 | Outpatient (CLI) | payer MEDICARE, SELFPAY ==
[2021-03-28 17:41] LABS: Absolute Lymphocyte Count 0.69 X10^3/uL (0.83-4.51); Absolute Neutrophil Count 10.9 X10^3/uL (2.0-7.7); Basophil# 0.06 X10^3/uL; Basophil% 0.5 % (0-1); Eosinophil# 0.05 X10^3/uL; Eosinophils% 0.4 % (0-5); Hematocrit 38.4 % (37-47); Hemoglobin 12.2 g/dL (12.0-15.0); Lymphocyte # 0.69 X10^3/ul (0.83-4.51); Lymphocyte % 5.4 % (19-41); Mean Corp Hgb Conc 31.8 g/dL (32-36); Mean Corpuscular Hgb 31.9 pg (27.0-32.0); Mean Corpuscular Volume 100.3 fL (81-99); Mean Platelet Vol. 11.1 fl (6.2-12.0); Monocyte# 0.91 X10^3/uL; Monocyte% 7.2 % (0-10); NRBC Flagged by Analyzer 0 % (0-5); Platelet Count 360 K/mm3 (150-450); RBC Distribution Width CV 14.7 % (11.6-14.6); RBC Distribution Width SD 52.9 fl (35.1-43.9); Red Blood Count 3.83 M/mm3 (4.2-5.4); White Blood Count 12.7 K/mm3 (4.4-11.0)
[2021-03-28 18:18] LABS: BNP,B-Type NATRIURETIC PEPTIDE 70.8 pg/mL (0-100)
[2021-03-28 18:43] LABS: Anion Gap 5 (5-15); BUN 17 mg/dL (7-18); BUN/Creat Ratio 23.4 RATIO (10-20); Calcium,Total 10.4 mg/dL (8.5-10.1); Chloride 104 mmol/L (98-107); Creatinine, Serum 0.73 mg/dL (0.55-1.02); EST Glomerular Filtration Rate 82 mL/min (>60); Est Glom Filt Rate - Afr Amer 99 mL/min (>60); Glucose 92 mg/dL (74-106); Sodium Level 139 mmol/L (136-145)
== END ==
PROVIDERS: PCP Nurse Practitioner Family; Referring Provider Nurse Practitioner Family; Visit Provider Nurse Practitioner Family
DX: L03.90 Cellulitis, unspecified (principal)
CPT/HCPCS: 36415; 80048; 83880; 85025

== ENCOUNTER → 2021-04-24 11:52 | Outpatient (CLI) | payer MEDICARE, SELFPAY ==
--- NOTE | 2021-04-24 11:59 | BI_ITS ---
MAMMOGRAPHY - BILATERAL SCREENING REASON FOR EXAM: Female, 80 years old. Routine annual screening examination. PERTINENT HISTORY: Grandmother with breast cancer. TECHNIQUE: Digital bilateral breast star (3D mammographic acquisition) in the CC and MLO projections. 2-D mediolateral oblique (MLO) and craniocaudad (CC) views of both breasts were obtained. CAD: Full Field Digital Mammography with Computer Added Detection was performed. COMPARISON: Comparison is made with prior outside examination dated 12/02/2017. FINDINGS: Breast Composition: There are scattered areas of fibroglandular density. There are no dominant masses or suspicious calcifications. No other significant abnormalities are identified. There has been no significant change since the prior study. BI/SCRN MAMM (CAD)W/STAR BILAT IMPRESSION: Stable bilateral screening mammogram. Yearly follow-up mammogram recommended. (A) ASSESSMENT CATEGORY: BIRADS Category 1: Negative. A letter regarding these results will be sent to the patient by the facility within 30 days. Approximately 10% of breast cancers are not detected by mammography. A normal mammogram should not delay biopsy of a clinically suspicious abnormality. [id number] Electronically Signed: Tanner Clemens MD at 13:06 EST , Service support ,
--- NOTE | 2021-04-24 13:28 | US_ITS ---
STUDY: ULTRASOUND OF THE FEMALE PELVIS - COMPLETE REASON FOR EXAM: Female, 80 years old. Right ovarian cyst. LMP: Patient is postmenopausal. TECHNIQUE: Transabdominal TECHNICAL QUALITY: Adequate. COMPARISON: Comparison is made with prior study dated 03/15/2021. FINDINGS: The uterus is retroflexed and is in a midline position. The uterus measures 4.8 cm x 1.9 cm x 1.5 cm. Normal uterine cervix. The endometrium measures 1.7 mm in thickness, and is hyperechoic. There is no demonstrated endometrial mass. There is a 3.1 cm x 4.2 cm x 2.8 cm calcified fibroid. I.U.D. - The patient does not have an I.U.D. The right ovary is visualized. The right ovary measures 7 cm x 4.8 cm x 3.8 cm. There is a 6.5 cm x 4.8 cm x 3.5 cm cyst within the ovary. This has increased in size as compared to prior study. There is no visualized right adnexal mass or complex lesion. There is normal arterial and normal venous vascularity. The left ovary is non-visualized. There is no fluid in the cul-de-sac. The pre void volume of the bladder was 195.5 ml. . US/Pelvic (Non ) IMPRESSION: 3.1 cm x 4.2 cm x 2.8 cm calcified fibroid. 6.5 cm x 4.8 cm x 3.5 cm right ovarian cyst. Electronically Signed: Tanner Clemens MD at 14:50 EST , Service support ,
== END ==
PROVIDERS: PCP Nurse Practitioner Family; Referring Provider Obstetrics & Gynecology; Visit Provider Obstetrics & Gynecology
DX: Z12.31 Encounter for screening mammogram for malignant neoplasm of breast (principal); N83.201 Unspecified ovarian cyst, right side
CPT/HCPCS: 76856; 77063; 77067

== ENCOUNTER 2021-07-02 12:37 | Day surgery (SDC) | payer MEDICARE, SELFPAY ==
--- NOTE | 2021-07-01 08:48 | EKG12_ITS ---
Test Reason : PREOP Blood Pressure : / mmHG Vent. Rate : 094 BPM Atrial Rate : 094 BPM P-R Int : 130 ms QRS Dur : 070 ms QT Int : 352 ms P-R-T Axes : 065 -49 -02 degrees QTc Int : 440 ms Normal sinus rhythm with sinus arrhythmia Left axis deviation Low voltage QRS Abnormal ECG Confirmed by ORLANDO VALERIO, SRINIVAS ([id number]), photo editor MARIA TERESA JACOBS ([id number]) on 07/02/2021 6:41:52 AM Referred By: Nilda Ulrich Confirmed By:SRINIVAS PERRY MD
[2021-07-01 09:52] LABS: Absolute Lymphocyte Count 0.65 X10^3/uL (0.83-4.51); Absolute Neutrophil Count 6.2 X10^3/uL (2.0-7.7); Basophil# 0.05 X10^3/uL; Basophil% 0.6 % (0-1); Eosinophils% 2.5 % (0-5); Hematocrit 40.4 % (37-47); Hemoglobin 13.2 g/dL (12.0-15.0); Lymphocyte # 0.65 X10^3/ul (0.83-4.51); Lymphocyte % 8.1 % (19-41); Mean Corp Hgb Conc 32.7 g/dL (32-36); Mean Corpuscular Hgb 31.4 pg (27.0-32.0); Mean Corpuscular Volume 96.2 fL (81-99); Mean Platelet Vol. 12.1 fl (6.2-12.0); Monocyte# 0.96 X10^3/uL; Monocyte% 11.9 % (0-10); NRBC Flagged by Analyzer 0 % (0-5); Neutrophil # 6.18 X10^3/uL (2.7-7.7); Neutrophil % 76.5 % (47-70); POSITIVE COUNT YES; Platelet Count 296 K/mm3 (150-450); RBC Distribution Width CV 15.9 % (11.6-14.6); RBC Distribution Width SD 55.9 fl (35.1-43.9); White Blood Count 8.1 K/mm3 (4.4-11.0)
[2021-07-01 09:53] LABS: Differential Indicated SCAN CRITERIA MET
[2021-07-01 10:17] LABS: ALB/GLOB Ratio 1.1 RATIO (0.9-2.4); AST(SGOT) 32 U/L (15-37); Alanine Aminotransfer ALT/SGPT 18 U/L (13-56); Albumin, Serum 3.5 g/dL (3.2-5.0); Alkaline Phosphatase 98 U/L (45-117); Anion Gap 4 (5-15); BUN 14 mg/dL (7-18); BUN/Creat Ratio 18.3 RATIO (10-20); Chloride 107 mmol/L (98-107); Creatinine, Serum 0.76 mg/dL (0.55-1.02); EST Glomerular Filtration Rate 77 mL/min (>60); Est Glom Filt Rate - Afr Amer 93 mL/min (>60); Globulin 3.2 g/dL (2.2-4.2); Glucose 88 mg/dL (74-106); Potassium 3.9 mmol/L (3.5-5.1); Protein, Total 6.7 g/dL (6.4-8.2); Sodium Level 141 mmol/L (136-145)
[2021-07-02] VITALS (8 sets, daily range): BP systolic 106–127; BP diastolic 54–81; PULSE 45–83; RESP 16; TEMP 36.3–37; O2SAT 92–99; BMI 21.3
--- NOTE | 2021-07-02 | OV_PTH ---
PATIENT: ESTEBAN VALERIO I LOC: [facility] [place] U#:[id number] AGE/SX: 80/F ROOM: RE07/02/[address]: Dr. Nilda Ulrich DO : 1940 BED: DIS: 07/02/2021 SPEC #: [id number] RECD: 07/03/21 09:46 STATUS: PARKER JAGUAR #: [id number] YASMIN: 07/02/21 00:[address]: Nilda Ulrich DEPT: SURGICAL PATHOLOGY RECD BY: Arian Sinclair ENTERED: 07/03/21 09:47 SP TYPE: OVARY OTHR DR: Milagros Aguirre, PIE FILLING MIXER-C Tissues: Right ovary Procedures: Surgery Specimen Level V HEADER OPERATION: Diagnostic laparoscopy, salpingo-oophorectomy PRE-OP DIAGNOSIS: Right ovarian cyst TISSUE SUBMITTED: Right ovary and fallopian tube MICROSCOPIC DIAGNOSIS Right ovary and fallopian tube, salpingo-oophorectomy: Ovary with serous cystadenoma. Fallopian tube with no significant pathologic change. AM:didi 07/04/2021 MICROSCOPIC DESCRIPTION Slides are reviewed. GROSS DESCRIPTION Received in fixative is one container labeled with the patient's name and designated right ovary and fallopian tube. The specimen consists of a smooth, glistening cystic ovary measuring 5 x 3 x 1 cm. The cyst ovary appears to have been collapsed. The external surface is inked and the ovary serially sectioned to reveal smooth, glistening inner lining without papillary projections or mass lesions. The cyst wall ranges in thickness from 0.1 to 0.2 cm. The adjacent fallopian tube measures 5 cm in length and 0.4 cm in average diameter and contains a normal fimbriated end. No tubo-ovarian adhesions are identified. Manager Pet sections are submitted in two cassettes as follows: 1 ? ovary, 2 ? fallopian tube. / AM:didi 07/03/2021 TC:1 CPT: 72463
[2021-07-02] MEDS: Lactated Ringers 1,000 ML 125 ML IV (13:17)
--- NOTE | 2021-07-02 14:57 | HP.PCM_ITS ---
History and Physical Date of Admission: 07/02/21 :1940 Provider:Dr. Nilda Ulrich, DOAge/Sex: 80/F [facility] Int[facility] Vital Signs 06/19/21 10:58 Height 5 ft 3 in Weight: 117 lb BMI 20.7 BP 130/80 H Intake Visit Reasons: review US results Information Systems Security Specialist Required: No Is patient in pain?: No Allergies amoxicillin trihydrate [From Trimox] Allergy (Verified 06/19/21 10:58) Rash Medications methotrexate sodium (PF) 75 mg IM QWEEK 11/29/13 [History Confirmed 06/19/21] prednisone 5 mg PO DAILY 11/29/13 [History Confirmed 06/19/21] alendronate 70 mg tablet 70 mg PO QWEEK 11/10/18 [History Confirmed 06/19/21] folic acid 400 mcg tablet 0.8 mg PO DAILY@0800 tab 11/10/18 [History Confirmed 06/19/21] multivitamin 1 tab PO DAILY 11/10/18 [History Confirmed 06/19/21] tofacitinib 5 mg tablet 5 mg PO BID 11/10/18 [History Confirmed 06/19/21] tramadol 50 mg tablet 50 mg PO BID 11/09/19 [History Confirmed 06/19/21] celecoxib 200 mg capsule 200 mg PO DAILY PRN cap 12/12/20 [History Confirmed 06/19/21] famotidine 20 mg tablet 20 mg PO BID 12/12/20 [History Confirmed 06/19/21] loratadine 10 mg tablet 10 mg PO DAILY PRN 12/12/20 [History Confirmed 06/19/21] hydrocodone-acetaminophen 1 tab PO Q4H PRN PRN 2 Days #10 tablet 03/06/21 [Rx Confirmed 06/19/21] Is last menstrual period known: No Post menopausal: Yes Patient : No : No PFSH Medical History MVP (mitral valve prolapse) Premature atrial contraction Premature ventricular contraction Supraventricular tachycardia Surgical History H/O total knee replacement History of cardiac radiofrequency ablation (~2000) Hx of cataract surgery Hx of hernia repair Family History Father CAD (coronary artery disease) CVA (cerebral vascular accident) Hypertension Brother CAD (coronary artery disease) Mother No problems noted. Social History Smoking Status: Never smoker alcohol intake: never substance use type: does not use what type of physical activity do you participate in: none HPI Details: HUYEN VALERIO is a 80 year old who presents for follow up ultrasound of right ovarian cyst. The cyst has grown from 5 cm to 6.5 cm from March to April and the patient continues to experience worse and worse pelvic pain. Huyen is 80 years old and has lost 15 pounds since her last visit due to the discomfort this cyst has caused. She states that she does not feel like sitting up to eat because of the pressure. The report does not have any mention of complexity or malignancy. ROS Const ROS Unobtainable: All systems reviewed & are unremarkable except as noted in H Resp Resp: Reports system reviewed and no additional complaints, except as documented; Denies cough GI GI: Reports as per HPI Psych Psych: Reports system reviewed and no additional complaints, except as documented Exam Const General: cooperative, healthy appearing, comfortable and no acute distress Resp Effort & Inspection: normal respiratory effort Skin General: no rashes or lesions noted Psych Appearance: grossly normal Speech and Movement: speech and movement normal Coding Level of Care Code Off vis,est,level 4 Diagnoses Ovarian cyst, right N83.201 MVP (mitral valve prolapse) I34.1 Premature ventricular contraction I49.3 Premature atrial contraction I49.1 History of cardiac radiofrequency ablation Z98.890 Supraventricular tachycardia I47.1 Assessment and Plan Assessment and Plan (1) Ovarian cyst, right: Status: Acute (2) MVP (mitral valve prolapse): Status: Acute (3) Premature ventricular contraction: Status: Acute (4) Premature atrial contraction: Status: Acute (5) History of cardiac radiofrequency ablation: Status: Resolved Comment: For SVT (6) Supraventricular tachycardia: Status: Resolved Plan - Dr. Nilda Ulrich, DO: After discussing the patient's diagnosis and treatment plan options, patient wishes to proceed with surgical management. I have discussed with the patient the risks, benefits, and alternatives of the procedure which include but are not limited to risks of anesthesia, bleeding, infection, possible damage to bowel, bladder, or surrounding vasculature which could lead to additional surgery to evaluate any complications. Patient agrees to procedure and wishes to proceed. ACOG/uptodate references given for additional information regarding procedure. The patient's daughter was with her during the entire exam and also agrees to proceed with surgery. Huyen will need permission from her flatwork assembler prior to proceeding with the planned laparoscopic RSO. UPDATE- I have seen the patient and performed any clinically relevant updates to the history and physical exam. Nilda Ulrich,
--- NOTE | 2021-07-02 14:58 | PCM.OP.BLANK ---
Problems Associated Problem List Diagnoses (1) Ovarian cyst, right: (2) MVP (mitral valve prolapse): (3) Premature ventricular contraction: (4) Premature atrial contraction: (5) History of cardiac radiofrequency ablation: (6) Supraventricular tachycardia: Operative Report Date of Procedure: 07/02/21 Pre-operative diagnosis: enlarging 6 cm right ovarian cyst, pelvic pain Post-operative diagnosis: enlarging 6 cm right ovarian cyst, pelvic pain Surgeon: Dr. Nilda Ulrich DO Net Developer Programmer: Shalonda TROY EBL: minimal Specimens removed: right ovary and fallopian tube Urine output: 100cc Fluids: 800cc complications: none Procedure details: Patient was taken in the operating room and was placed under general anesthesia was prepped and draped in normal sterile fashion in the dorsal lithotomy position. Bladder was drained of clear urine and SCDs were on preoperatively. Uterus was sounded and a uterine manipulator was placed after dilating. Attention was then paid to the abdominal portion of the procedure and the umbilicus was elevated and injected with Marcaine and after a 5 mm incision was made, a 5 mm trocar was inserted into the abdomen under direct visualization using the laparoscope. The Abdomen was insufflated with CO2 gas. A left lower quadrant 5 mm port and a 1 mm port suprapubically were placed under direct visualization. Uterus was well visualized and bilateral fallopian tubes identified. The left ovary was noted to be normal. The right contained a 6 cm clear cyst. The right IP ligament was grasped with the 1 mm trocar grasper and the LigaSure device was used to cauterize and cut the ligament. The ovary and fallopian tube were amputated from the uterus and side wall and then placed into an endocatch bag. The specimen was drawn to the level of the skin incision and the bag was opened. the cyst wall was pierced and a clear fluid returned. The specimen was then easily slipped through the 5 mm incision. Excellent hemostasis was noted at the operative site. . Liver and upper abdomen were visualized notably within normal limits and no other gross abnormalities were seen in the abdomen. All instruments removed from the abdomen after gas was desufflated. Port sites were closed with 3-0 Monocryl Steri's and surgical glue. All instruments removed from the vagina and patient was awoken and taken recovery in stable condition. Multi Select Codes Urinary/Genital Urinary/Genital CPT Codes: 90723 Laproscopic BS/O
--- NOTE | 2021-07-02 15:07 | PCM.DC ---
Discharge Instructions Diet Discharge Diet: No restrictions Activity Discharge Activity: Return to Normal Activity, May Not Drive (for two weeks or while taking narcotic pain medications.), May Shower and May Take a Tub Bath (in 7 days) May resume sexual activity in: 1 week Weight Bearing Status: Full weight bearing Dressing / Incision Call your doctor if you observe: Using more than 1 pad per hour, Shortness of breath, Chest pain and Uncontrolled pain Suture Line Care: Avoid Pulling/Pushing and Avoid Pinching/Bending Remove Dressing in: 1 week (if present) Cleanse incision/area with: Soap & Water and Keep Dressing Clean & Dry Follow Up Care Please Follow Up With: Nilda Ulrich DO When: Call to make an appointment with your doctor for a follow up incision check in 1-2 weeks. Test Results: Test results from this visit will be discussed in further detail at your follow-up appointment, if applicable. Discharge Plan Admission Primary Reason for Your Visit: laparoscopic removal of right ovary and fallopian tube Attending Provider: Nilda Ulrich Primary Care Provider: Milagros Aguirre NP Discharge Orders/Prescriptions Prescriptions: New ibuprofen 600 mg tablet 600 mg PO Q6H PRN (Reason: pain (scale score 4-6)) 7 Days Qty: 28 RF: 0 hydrocodone-acetaminophen 2.5-325 mg tablet 1 tab PO TID PRN (Reason: pain) 3 Days RF: 0 hydrocodone-acetaminophen 2.5-325 mg tablet 1 tab PO TID PRN (Reason: pain) 3 Days Qty: 10 RF: 0 Continued alendronate [Fosamax] 70 mg tablet 70 mg PO QWEEK RF: 0 multivitamin Tablet 2 tab PO DAILY RF: 0 tramadol 50 mg tablet 50 mg PO TID RF: 0 famotidine 20 mg tablet 20 mg PO BID RF: 0 prednisone 5 MG tablet 5 mg PO DAILY RF: 0 methotrexate sodium (PF) 25 MG/ML solution 75 mg IM TH RF: 0 folic acid 400 mcg tablet 0.8 mg PO DAILY@0800 RF: 0 celecoxib 200 mg capsule 200 mg PO DAILY PRN (Reason: Pain) RF: 0 multivitamin Tablet 3 tab PO DAILY RF: 0 buprenorphine [Butrans] 10 mcg/hour patch weekly 10 mcg topical FR RF: 0 Xeljanz 5 mg tablet 5 mg PO BID RF: 0 Referrals / Follow Up: Milagros Aguirre PROJECT MANAGEMENT PROFESSIONAL, PROJECT MANAGEMENT PROFESSIONAL-C [Primary Care Provider] - Disposition Disposition (needs filled in before D/C Order can be placed): Home, Self Care
[2021-07-02] MEDS: Ketorolac 15 MG/ML Vial IV (15:34)
== END 2021-07-02 23:59 | disposition home or self-care (01) ==
LOC: SDC 12:39 → AC 12:40
PROVIDERS: PCP Registered Nurse; Referring Provider Obstetrics & Gynecology; Visit Provider Obstetrics & Gynecology
PROC: (CPT 49320; principal; 2021-07-02 14:05)
DX: D27.0 Benign neoplasm of right ovary (principal); M06.9 Rheumatoid arthritis, unspecified; G47.30 Sleep apnea, unspecified; K21.9 Gastro-esophageal reflux disease without esophagitis; Z79.899 Other long term (current) drug therapy
CPT/HCPCS: 58661; 00840; 36415; 80053; 85025; 86850; 86900; 86901; 88305; 88307; 93005; J7120; J2405

== ENCOUNTER → 2021-09-16 | Outpatient (CLI) | payer MEDICARE, SELFPAY ==
--- NOTE | 2021-09-16 10:54 | CT_ITS ---
STUDY: CT ABDOMEN AND PELVIS WITHOUT CONTRAST REASON FOR EXAM: Female, 81 years old. Possible Incisional Hernia RADIATION DOSAGE (If Supplied By Facility): CTDIvol = ( 6.17 ) mGy, DLP = ( 63.7 ) mGycm TECHNIQUE: Transaxial images were obtained from the dome of the diaphragm to the symphysis pubis without oral contrast, and without intravenous contrast. Sagittal and coronal images were reconstructed. Individualized dose optimization techniques were used for this CT. COMPARISON: Comparison is made with prior study 03/06/2021. FINDINGS: The visualized lung bases are unremarkable. Coronary artery calcification. Normal liver. Normal gallbladder and extrahepatic biliary system. Normal spleen. Normal pancreas. Normal bilateral adrenal glands. Normal right kidney. Normal left kidney. Status post hiatal hernia repair. Persistent ventral hernia is seen. Normal small intestine. There are multiple colonic diverticula consistent with diverticulosis. The appendix is visualized and appears normal. There is diffuse atherosclerotic calcification of the abdominal aorta and its major visceral branches, without a demonstrated aneurysm. Normal inferior vena cava. Normal retroperitoneum. Normal urinary bladder. Densely calcified fibroid uterus. The previously seen right-sided cystic ovarian mass is not seen at this time. No evidence of incisional hernia. There are diffuse degenerative changes of the visualized lumbar spine. Levoconvex scoliosis. Grade 1 anterior listhesis of L4 on L5. Facet joint osteoarthritis. CT/Abdomen/Pelvis without Cont IMPRESSION: Calcified fibroid uterus. Atherosclerotic calcification of the abdominal aorta and its major visceral branches. Status post hiatal hernia repair. Persistent small hiatal hernia. Electronically Signed: Tanner Clemens MD at 12:17 EDT ,
== END | disposition home or self-care (01) ==
LOC: CT 10:53
PROVIDERS: PCP Registered Nurse; Visit Provider Surgery
DX: K46.9 Unspecified abdominal hernia without obstruction or gangrene (principal)
CPT/HCPCS: 74176

== ENCOUNTER 2021-10-01 10:24 | Day surgery (SDC) | payer MEDICARE, SELFPAY ==
--- NOTE | 2021-09-30 12:48 | EKG12_ITS ---
Test Reason : PREOP Blood Pressure : / mmHG Vent. Rate : 081 BPM Atrial Rate : 081 BPM P-R Int : 132 ms QRS Dur : 070 ms QT Int : 364 ms P-R-T Axes : 080 -47 -12 degrees QTc Int : 422 ms Sinus rhythm with Premature atrial complexes Low voltage QRS Left anterior fascicular block Abnormal ECG Confirmed by QAMAR VALERIO, MERI ([id number]), editor index MARIA TERESA JACOBS ([id number]) on 10/01/2021 7:13:25 AM Referred By: RADHA Confirmed By:MERI FOOTE MD
[2021-09-30 13:30] LABS: Hemoglobin 13.2 g/dL (12.0-15.0); Mean Corp Hgb Conc 31.4 g/dL (32-36); Mean Corpuscular Hgb 30.4 pg (27.0-32.0); Mean Corpuscular Volume 96.8 fL (81-99); Mean Platelet Vol. 11.3 fl (6.2-12.0); Platelet Count 290 K/mm3 (150-450); RBC Distribution Width CV 14.6 % (11.6-14.6); RBC Distribution Width SD 51.9 fl (35.1-43.9); Red Blood Count 4.34 M/mm3 (4.2-5.4); White Blood Count 11.7 K/mm3 (4.4-11.0)
[2021-09-30 13:51] LABS: Anion Gap 2 (5-15); BUN 18 mg/dL (7-18); BUN/Creat Ratio 23.9 RATIO (10-20); Calcium,Total 9.7 mg/dL (8.5-10.1); Chloride 108 mmol/L (98-107); Creatinine, Serum 0.75 mg/dL (0.55-1.02); EST Glomerular Filtration Rate 78 mL/min (>60); Est Glom Filt Rate - Afr Amer 94 mL/min (>60); Glucose 103 mg/dL (74-106); Potassium 4.6 mmol/L (3.5-5.1); Sodium Level 141 mmol/L (136-145)
[2021-10-01] VITALS (8 sets, daily range): BP systolic 117–134; BP diastolic 61–84; PULSE 65–90; RESP 15–18; TEMP 36.4–37.2; O2SAT 90–98; BMI 19.9
[2021-10-01] MEDS: Lactated Ringers 1,000 ML 15 ML IV (10:40)
--- NOTE | 2021-10-01 11:39 | PCM.HP.BLA ---
History and Physical Date of Admission: 10/01/21 Date of Service: 09/16/21 MR#:[id number]:[id number]: ESTEBAN VALERIO [facility] #:[id number]:[id number] Provider:Nita Greene/Sex: 81/F [facility] Vital Signs 09/16/21 09:33 Height 5 ft 3 in Weight: 114 lb 4 oz BMI 20.2 BP 133/82 H Blood Pressure Location Rt brachial Position Sitting Respiration 17 Pulse 70 Pulse Source Monitor Temp 97.2 F L Temp Source Temporal Pulse Oximetry (%) 96 Oxygen Delivery Method room air Intake Visit Reasons: ABDOMINAL HERNIA Chief Complaint: Incisional Hernia Pilot Safety Inspector Required: No Is patient in pain?: No Allergies amoxicillin trihydrate [From Trimox] Allergy (Verified 09/16/21 09:34) Rash Medications methotrexate sodium (PF) 75 mg IM TH 11/29/13 [History Confirmed 09/16/21] prednisone 5 mg PO DAILY 11/29/13 [History Confirmed 09/16/21] alendronate 70 mg tablet 70 mg PO QWEEK 11/10/18 [History Confirmed 09/16/21] folic acid 400 mcg tablet 0.8 mg PO DAILY@0800 tab 11/10/18 [History Confirmed 09/16/21] celecoxib 200 mg capsule 200 mg PO DAILY PRN cap 12/12/20 [History Confirmed 09/16/21] Xeljanz 5 mg PO BID 06/25/21 [History Confirmed 09/16/21] multivitamin 3 tab PO DAILY 06/25/21 [History Confirmed 09/16/21] ibuprofen 600 mg PO Q6H PRN 7 Days #28 tab 07/02/21 [Rx Confirmed 09/16/21] sertraline 50 mg tablet 50 mg PO DAILY 09/09/21 [History Confirmed 09/16/21] buprenorphine 10 mcg/hour weekly transdermal patch 5 mcg TOPICAL QWEEK ea 09/16/21 [History Confirmed 09/16/21] tramadol 50 mg tablet 50 mg PO DAILY tab 09/16/21 [History Confirmed 09/16/21] PFSH Medical History Arthritis Back pain Cardiology follow-up encounter Easy bruising Gastric reflux History of hiatal hernia History of irregular heartbeat History of pain when walking History of steroid therapy Injury of back MVP (mitral valve prolapse) Normal stress echocardiogram Post-menopausal Premature atrial contraction Premature ventricular contraction Rheumatoid arthritis Sleep apnea Supraventricular tachycardia Wears contact lenses Wears glasses Surgical History H/O total knee replacement History of cardiac radiofrequency ablation (~2000) Hx of cataract surgery Hx of hernia repair Hx of kyphoplasty Family History (Updated 09/16/21 @ 09:28 by Geraldine Thursday) Father CAD (coronary artery disease) CVA (cerebral vascular accident) Hypertension Heart disease Brother CAD (coronary artery disease) Mother Osteoporosis Social History Smoking Status: Never smoker alcohol intake: never substance use type: does not use what type of physical activity do you participate in: none HPI HPI HPI: ESTEBAN VALERIO, is a 81 F who presents to the office today for left lower quadrant hernia patient states she had laparoscopic surgery in June for laparoscopic oophorectomy states that right after surgery she noticed a bulge in the left lower quadrant trocar site which is a 5 mm. Patient states the last 2 to 3 weeks she has had pain at that site with the bulge, patient states the bulge always comes back after reducing. Patient did not does not have constant pain at the site but again its been more frequent recently. Patient states that she pushes hard she needed to go back in. Patient is tolerating diet and having bowel function. ROS General General: Yes weight change and fatigue; No appetite, colon cancer or breast cancer HEENT HEENT: Yes difficulty swallowing and eye surgery; No eye injury, swollen glands or hoarseness Endo Endocrine: No thyroid disease, diabetes mellitus, thyroid cancer, Hair loss, heat intolerance or cold intolerance Skin Skin: No rash or changing moles Musc Musculoskeletal: Yes back problems, arthritis and rheumatoid arthritis; No gout or joint pain Cardio Cardiovascular: No murmur, pacemaker, heart disease, atrial fibrillation, high blood pressure, heart attack, heart stent, palpitations, shortness of breat with exertion or chest pain Psych Psychiatric: No depression, anxiety or hearing voices Resp Respiratory: No shortness of breath, Yes sleep apnea, No cough, No COPD, No asthma, No emphysema and No wheezing Gastro Gastrointestinal: Yes abdominal pain, Yes nausea or vomiting, No diarrhea, Yes constipation, No blood in stool, No acid reflux, No hemorrhoids, No ulcers, No gallbladder problem and No black,tarry stools Luis Daniel Hematologic: No blood thinners, No blood disorders, No bleeding, No anemia and No blood clots Neuro Neurologic: No abnormal speech and No confusion Exam Const General: cooperative, healthy appearing, comfortable and no acute distress Neck Neck: normal visual inspection Resp Effort & Inspection: normal respiratory effort Cardio Rate: regular rate GI Inspection: non-distended Palpation: soft, no guarding, hernia (Left lower quadrant likely incisional) and tender in the LLQ (Hernia on exam believe it is reducible however it still difficult to tell as it recurs almost immediately and patient is quite slender); with no rebound tenderness Skin General: no rashes or lesions noted Neuro General: patient oriented x3 Psych Affect: normal affect COVID (Procedure Consent) Procedure Criteria Procedure Criteria: Yes Elective The surgeon/proceduralist and patient have discussed in detail the risk of exposure to and/or potential harm posed by the COVID-19 virus with having a surgery/procedure at this time versus the risk of delaying the surgery/procedure. It is not possible to know either the risk of delaying the surgery or procedure or chance of getting an infection with perfect accuracy, but a joint decision was made between the patient and the surgeon/proceduralist to proceed at this time with the scheduled surgery/procedure as indicated on the consent form. Assessment and Plan Assessment and Plan (1) Incisional hernia: Status: Acute Plan - Dr. Maria Victoria Campoverde MD: Plan to check a CT abdomen pelvis without contrast to better evaluate the hernia does seem to reduce in office but does immediately recur unsure if this is just due to weakness in the wall or if it could be a possible spigelian due to location just medial to the iliac and just happens to be where the previous incision was. Discussed with patient and her daughter would plan for repair either open at the site if it is incisional or if spigelian with plan to likely start laparoscopically but still does plan on permanent sutures and no mesh. Discussed the procedure with the patient and her daughter including risk of bleeding, infection, injury to another organ, and anesthesia. Will call patient with CT abdomen pelvis results to discuss plan for surgery further and then schedule. Maria Victoria Campoverde M.D. Pager: [phone] [facility] [address] [place] [address], [facility], [address] [place] [address] Office: [phone] Plan Details Other Orders: Orders: Abdomen/Pelvis without Cont Today K46.9 Coding Level of Care Code Off vis,new,level 4 Diagnoses Incisional hernia K43.2 09/16/21 1118<Electronically signed by Maria Victoria Campoverde MD>Date Maria Victoria Campoverde MD
[2021-10-01] MEDS: Clindamycin 900 MG/50 ML BAG 75 MG IV (11:56)
[2021-10-01] MEDS: Bupivacaine Mpf 0.5% 30 ML VIAL (11:58)
--- NOTE | 2021-10-01 12:55 | PCM.OPRPT ---
Report of Operation Date of Procedure: 10/01/21 Pre-Operative Diagnosis: Left lower quadrant incisional hernia Post-Operative Diagnosis: Same Surgery/Procedure Performed:: Repair of left lower quadrant abdominal incisional hernia Surgeon: Maria Victoria Campoverde temperature regulator: Caridad Nj Type of Anesthesia: Local MAC Anesthesiologist: Bi Aquino Special Medications: Clindamycin 900 mg IV x1 Specimen's removed: None Estimated Blood Loss (mL): <10 cc Description of Procedure: Patient was brought into the operating placed plan operating table. Timeout was completed verifying correct patient, procedure, site, positioning cervical vertebrae beginning procedure. MAC anesthesia was induced. Abdomen was prepped draped in a sterile fashion with chlorhexidine. The previous left lower quadrant trocar site was infiltrated with 0.5% Marcaine and an incision was made with 15 blade scalpel. This was deepened to the fascia. Hernia defect was identified about 7 mm in size. Intra-abdominal contents were reduced. Peritoneum was closed with 0 Vicryl [id number] suture. Fascia was closed with 0 Prolene [id number] suture. Skin was closed closed with 4-0 Monocryl. Dressed with OpSite. Patient tolerated procedure well. Taken to the postanesthesia care unit in stable condition. Complications none
--- NOTE | 2021-10-01 12:58 | DCINST_ITS ---
Discharge Instructions Diet Discharge Diet: Light diet - advance as tolerated Activity Discharge Activity: May Not Drive (while taking narcotic pain medications.) May shower in (days): 1 Lifting Restrictions: no lifting >20 lbs x 2 wks, no strenuous exercise for 4 wks Dressing / Incision Call your doctor if your incision/area has: Continuous Slow Oozing, Sudden Increased Bleeding, Increased Pain/ Swelling, Increased Redness, Foul Smelling Discharge and Swelling at the incision site Call your doctor if you observe: Fever of 101 or Higher Remove Dressing in: 2 days Cleanse incision/area with: Soap & Water Additional Dressing/Incision Instructions:: Steri-Strips will fall off in 7 to 10 days, if they do not fall off okay to remove after 10 days. Follow Up Care Please Follow Up With: Maria Victoria Campoverde MD When: Call the office for a follow-up appointment 2 weeks; after 5 PM and on the weekends call [phone] with any concerns. Test Results: Test results from this visit will be discussed in further detail at your follow-up appointment, if applicable. Discharge Plan Admission Attending Provider: Maria Victoria Campoverde Primary Care Provider: Milagros Aguirre NP Discharge Orders/Prescriptions Prescriptions: New oxycodone-acetaminophen 5-325 mg tablet 1 tab PO Q6H PRN (Reason: pain) 2 Days Qty: 3 RF: 0 Continued alendronate [Fosamax] 70 mg tablet 70 mg PO QWEEK RF: 0 tramadol 50 mg tablet 50 mg PO DAILY RF: 0 sertraline 50 mg tablet 50 mg PO DAILY RF: 0 prednisone 5 MG tablet 5 mg PO DAILY RF: 0 folic acid 400 mcg tablet 0.8 mg PO DAILY@0800 RF: 0 celecoxib 200 mg capsule 200 mg PO DAILY PRN (Reason: Pain) RF: 0 multivitamin Tablet 3 tab PO DAILY RF: 0 buprenorphine [Butrans] 10 mcg/hour patch weekly 5 mcg topical QWEEK RF: 0 Held methotrexate sodium (PF) 25 MG/ML solution 75 mg IM TH RF: 0 Hold Instructions: Resume on 10/15/21. Xeljanz 5 mg tablet 5 mg PO BID RF: 0 Hold Instructions: Resume on 10/15/21. Other Ambulatory Orders: 12 Lead EKG (Routine) Timeframe: [id number] Location: None Selected Ordered By: Dr. Parviz Escalona Referrals / Follow Up: Milagros Aguirre CREDIT HISTORIAN, CREDIT HISTORIAN-C [Primary Care Provider] - Disposition Disposition (needs filled in before D/C Order can be placed): Home, Self Care
[2021-10-01] MEDS: oxyCODONE 5 MG Tablet PO (14:25)
[2021-10-01] MEDS: Acetaminophen 325 MG Tablet PO (14:25)
== END 2021-10-01 14:44 | disposition home or self-care (01) ==
LOC: SDC 10:25 → AC 10:25
PROVIDERS: Anesthesiology; PCP Registered Nurse; Referring Provider Surgery; Visit Provider Surgery
PROC: (CPT 49560; principal; 2021-10-01 11:45)
DX: K43.2 Incisional hernia without obstruction or gangrene (principal); G47.30 Sleep apnea, unspecified; K21.9 Gastro-esophageal reflux disease without esophagitis
CPT/HCPCS: 49560; 00752; 36415; 80048; 85027; 93005; J7120; J2405

== ENCOUNTER 2021-10-18 16:51 | Emergency (ER) | payer MEDICARE, SELFPAY ==
[2021-10-18 16:52] VITALS: BP 190/100; PULSE 100; RESP 16; TEMP 37.2; O2SAT 98
--- NOTE | 2021-10-18 17:13 | EDS_ITS ---
HPI History of Present Illness HPI Narrative: Patient presents with right hand, left shoulder, neck, and back pain that began this morning. Patient states she woke up with the pain this morning. Patient has a history of rheumatoid arthritis. Patient states her pain is aching. Patient states it is worse with any movement. Patient denies any trauma or injury. Patient states she had her medications stopped for recent surgery. Patient states she started back on her medications 3 days ago. Patient states she took them Thursday, Thursday, and . Patient states she did not take them today because her stomach was upset. Patient admits to nausea but denies any vomiting. Patient admits to some urinary frequency. Chief Complaint: Upper Extremity Injury Informant: patient Onset/Context/Timing Onset: Today Context: Sudden Onset Timing: Continuous Quality of Pain: Aching Location: Right hand, left shoulder, neck, back Worsened by: Movement Relieved by: Nothing Associated Symptoms Associated Symptoms: Negative for Parasthesia, Weakness and Loss of Funtion PFSH PFSH Medical History Arthritis Back pain Cardiology follow-up encounter Easy bruising Gastric reflux History of hiatal hernia History of irregular heartbeat History of pain when walking History of steroid therapy Injury of back MVP (mitral valve prolapse) Normal stress echocardiogram Post-menopausal Premature atrial contraction Premature ventricular contraction Rheumatoid arthritis Sleep apnea Supraventricular tachycardia Wears contact lenses Wears glasses Home Medications methotrexate sodium (PF) 75 mg IM TH 11/29/13 [History Last Taken 09/16/21] prednisone 5 mg PO DAILY 11/29/13 [History Last Taken 07/02/21] alendronate 70 mg tablet 70 mg PO QWEEK 11/10/18 [History Last Taken Unknown] folic acid 400 mcg tablet 0.8 mg PO DAILY@0800 tab 11/10/18 [History Last Taken Unknown] celecoxib 200 mg capsule 200 mg PO DAILY PRN cap 12/12/20 [History Last Taken Unknown] Xeljanz 5 mg PO BID 06/25/21 [History Last Taken 09/16/21] multivitamin 3 tab PO DAILY 06/25/21 [History Last Taken Unknown] sertraline 50 mg tablet 50 mg PO DAILY 09/09/21 [History Last Taken Unknown] buprenorphine 10 mcg/hour weekly transdermal patch 5 mcg TOPICAL QWEEK ea 09/16/21 [History Last Taken Unknown] tramadol 50 mg tablet 50 mg PO DAILY tab 09/16/21 [History Last Taken Unknown] oxycodone-acetaminophen 1 tab PO Q6H PRN 2 Days #3 tab 10/01/21 [Rx Last Taken Unknown] prednisone 60 mg PO DAILY #15 tablet 10/18/21 [Rx Last Taken Unknown] Allergy/AdvReac Type Severity Reaction Status Date / Time amoxicillin trihydrate Allergy Rash Verified 10/18/21 16:52 [From Trimox] Family History (Updated 09/16/21 @ 09:28 by Geraldine Thursday) Father CAD (coronary artery disease) CVA (cerebral vascular accident) Hypertension Heart disease Brother CAD (coronary artery disease) Mother Osteoporosis Surgical History H/O total knee replacement History of cardiac radiofrequency ablation (~2000) Hx of cataract surgery Hx of hernia repair Hx of kyphoplasty Social History Smoking Status: Never smoker alcohol intake: never substance use type: does not use what type of physical activity do you participate in: none ROS ROS ED Constitutional Constitutional ED: Reports chills and subjective; Denies fever(s) Eyes Eyes: Denies blurry vision or change in vision ENT ENT ED: Reports sore throat; Denies rhinorrhea Cardiovascular Cardiovascular: Denies chest pain or palpitations Respiratory/Chest Respiratory/Chest: Denies cough or dyspnea Gastrointestinal Gastrointestinal: Reports nausea; Denies vomiting Genitourinary Genitourinary ED: Denies dysuria or hematuria Musculoskeletal Musculoskeletal: Denies back pain or neck pain Integumentary Denies abscess or rash Neurologic Neurologic: Reports headache(s); Denies weakness Allergic/Immunologic Allergic/Immunologic ED: Denies mouth swelling or urticaria EXAM Physical Exam Const Vital Signs: 10/18/21 16:52 Temperature 99 F Temperature Source Temporal Pulse Rate 100 Respiratory Rate 16 Blood Pressure 190/100 H Blood Pressure Mean 130 Pulse Ox 98 Oxygen Delivery Method Room Air Positive well nourished and well developed General Appearance ED: well developed and NAD HEENT Reports moist mucous membranes Neck Neck Narrative: There is tenderness over the cervical spine and paraspinal muscles. There is no bony crepitance or step-off. Range of motion was slightly limited in all motions of the cervical spine secondary to pain. General: tenderness Resp normal respiratory effort and clear to auscultation bilaterally Cardio regular rate and regular rhythm GI non-tender Palpation: soft Back/Spine Back/Spine Narrative: There is tenderness over the thoracic spine. There is no bony crepitance or step-off. Range of motion was limited in all motions of the thoracic spine secondary to pain. Thoracic Spine / Upper Back: thoracic spinal tenderness Extremity Extremity Narrative: There is edema, tenderness, and erythema over the right second, third, and fourth MCP joints. Range of motion was limited in all motions of the second, third, fourth digit secondary to pain. Radial pulses are equal bilaterally. There is also mild tenderness over the dorsal aspect of the right wrist. There is mild tenderness over the left shoulder and proximal humerus. There is no deformity. Range of motion was limited in all motions of the left shoulder secondary to pain. Sensation was intact to light touch bilat erally in the radial, median, and ulnar areas. Strength is 5/5 bilaterally in the radial, median, and ulnar areas. Neuro oriented x3, CN's II-XII intact bilaterally, moves all extremities, no focal motor deficits and no sensory deficits noted Sensorium / Orientation: alert Psych mental status grossly normal MDM MDM MDM Narrative Medical decision making narrative: Patient was given a dose of oxycodone here initially. X-rays of the cervical spine were obtained. There are 3 views. On my interpretation, there is no acute fracture or dislocation. There is no spondylolisthesis. Radiologist also interpreted the x-rays and agrees. X-rays of the left shoulder were obtained. There are 4 views. On my interpretation, there is no acute fracture or dislocation. There is no soft tissue swelling. Radiologist also interpreted the x-rays and agrees. X-rays of the right hand were obtained. There are 3 views. On my interpretation, there is no acute fracture. There is no dislocation. There is some mild soft tissue swelling. Radiologist also interpreted the x-rays and agrees. Patient was advised of her findings. Patient was given a repeat dose of morphine and a dose of prednisone here. Patient states her pain is improving. Patient was given a prescription for prednisone. Patient was instructed to follow-up with her primary care physician in 3 to 5 days. Patient was instructed return if worse in any way. Patient understood and was agreeable with the plan. All questions were answered. Discharge Plan Triage Chief Complaint: Upper Extremity Injury ED Provider: Parviz Berg Dx/Rx/DC Orders Clinical Impression: Rheumatoid arthritis flare Instructions: ED Rheumatoid Arthritis Prescriptions: New prednisone 20 MG tablet 60 mg PO DAILY Qty: 15 RF: 0 No Action alendronate [Fosamax] 70 mg tablet 70 mg PO QWEEK RF: 0 tramadol 50 mg tablet 50 mg PO DAILY RF: 0 sertraline 50 mg tablet 50 mg PO DAILY RF: 0 prednisone 5 MG tablet 5 mg PO DAILY RF: 0 methotrexate sodium (PF) 25 MG/ML solution 75 mg IM TH RF: 0 Hold Instructions: Resume on 10/15/21. folic acid 400 mcg tablet 0.8 mg PO DAILY@0800 RF: 0 celecoxib 200 mg capsule 200 mg PO DAILY PRN (Reason: Pain) RF: 0 multivitamin Tablet 3 tab PO DAILY RF: 0 Xeljanz 5 mg tablet 5 mg PO BID RF: 0 Hold Instructions: Resume on 10/15/21. buprenorphine [Butrans] 10 mcg/hour patch weekly 5 mcg topical QWEEK RF: 0 oxycodone-acetaminophen 5-325 mg tablet 1 tab PO Q6H PRN (Reason: pain) 2 Days Qty: 3 RF: 0 Primary Care Provider: Care Physician,No Primary Referrals: Katarina Wilks MD [STAFF PHYSICIAN] - 3-5 Days Care Physician,No Primary [Primary Care Provider] - Doctor,Your [STAFF PHYSICIAN] - 3-5 Days Activity Restrictions/Additional Instructions: Take the prednisone that we have prescribed for you for the next 5 days. After that you may return to your 5 mg dose daily. Disposition Disposition: Home, Self Care Discharge Date/Time: 10/18/21 20:37
--- NOTE | 2021-10-18 17:19 | RAD_ITS ---
INDICATION: Injury/Pain EXAMINATION/TECHNIQUE: X-RAY - XR Spine Cervical 4 or 5 Views COMPARISON: None. FINDINGS: VERTEBRAE: Vertebral body height and alignment are maintained. Multilevel cervical spondylosis with disc space narrowing endplate sclerosis and marginal osteophyte most notable at C5-6 and C6-7. No fracture destructive bony process. Odontoid process is intact. Facet hypertrophic changes are present from approximately C3-C7. DISCS: Disc space narrowing endplate sclerosis and marginal osteophyte formation most notable at C5-6 and C6-7. NECK SOFT TISSUES: No prevertebral soft tissue widening. LUNG APICES: Clear. RAD/Cerv Spine 2 or 3 Views IMPRESSION: 1. Diffuse cervical spondylosis and facet arthrosis without evidence of fracture malalignment or focal acute bony or paraspinous soft tissue abnormality.. Electronically Signed: Hever Aguero MD at 18:39 EDT ,
--- NOTE | 2021-10-18 17:19 | RAD_ITS ---
INDICATION: Injury/Pain EXAMINATION/TECHNIQUE: X-RAY - LEFT XR Shoulder Min 2 Views 4 VIEWS COMPARISON: None. FINDINGS: SOFT TISSUES: No soft tissue swelling or gas. No radiopaque foreign body. BONES/JOINTS: Moderate degenerative change at the glenohumeral joint with joint space narrowing subchondral sclerosis and marginal osteophyte formation. No fracture or dislocation. There is narrowing of the subacromial space which can contribute to rotator cuff impingement. Mild degenerative change involving the AC joint. Visualized rib cage is intact. RAD/Shoulder min 2 Views IMPRESSION: 1. Degenerative change noted at the level of the AC joint, osteophyte formation and subacromial space narrowing noted which can contribute to rotator cuff impingement. 2. Degenerative change of the glenohumeral joint as detailed, no fracture or dislocation noted. Electronically Signed: Hever Aguero MD at 18:35 EDT ,
--- NOTE | 2021-10-18 17:19 | RAD_ITS ---
INDICATION: Injury/Pain EXAMINATION/TECHNIQUE: X-RAY - RIGHT XR Hand Min 3 Views 3 VIEWS COMPARISON: None. FINDINGS: SOFT TISSUES: No soft tissue swelling or gas. No radiopaque foreign body. BONES/JOINTS: 1. No fractures noted. Significant degenerative change however present including phalangeal joints of digits 2-5, additional MCP degenerative changes most notable at the third digit, and marked degenerative change at the trapeziometacarpal articulation at the base of the thumb. Coarse osteophytes are noted. Joint space narrowing and subchondral sclerosis at these levels. 2. No fractures identified. No dislocation. 3. Degenerative change at the wrist also noted with chondrocalcinosis of TFCC. RAD/Hand Min 3 Views IMPRESSION: 1. Degenerative change as detailed, no evidence of fracture or dislocation involving the hand or visualized wrist. Electronically Signed: Hever Aguero MD at 18:37 EDT ,
[2021-10-18] MEDS: oxyCODONE 5 MG Tablet PO (17:32)
[2021-10-18 18:05] LABS: Absolute Lymphocyte Count 1.03 X10^3/uL (0.83-4.51); Absolute Neutrophil Count 10.2 X10^3/uL (2.0-7.7); Basophil# 0.07 X10^3/uL; Basophil% 0.5 % (0-1); Eosinophil# 0.07 X10^3/uL; Eosinophils% 0.5 % (0-5); Hematocrit 43.5 % (37-47); Hemoglobin 13.5 g/dL (12.0-15.0); Lymphocyte # 1.03 X10^3/ul (0.83-4.51); Lymphocyte % 8.1 % (19-41); Mean Corpuscular Hgb 29.3 pg (27.0-32.0); Mean Corpuscular Volume 94.6 fL (81-99); Mean Platelet Vol. 10.9 fl (6.2-12.0); Monocyte# 1.34 X10^3/uL; Monocyte% 10.5 % (0-10); NRBC Flagged by Analyzer 0 % (0-5); Neutrophil # 10.16 X10^3/uL (2.7-7.7); Neutrophil % 79.9 % (47-70); Platelet Count 400 K/mm3 (150-450); RBC Distribution Width CV 14.6 % (11.6-14.6); RBC Distribution Width SD 49.3 fl (35.1-43.9); White Blood Count 12.7 K/mm3 (4.4-11.0)
[2021-10-18 18:20] LABS: Anion Gap 5 (5-15); BUN 18 mg/dL (7-18); BUN/Creat Ratio 28.9 RATIO (10-20); Calcium,Total 9.5 mg/dL (8.5-10.1); Chloride 104 mmol/L (98-107); Creatinine, Serum 0.62 mg/dL (0.55-1.02); EST Glomerular Filtration Rate 97 mL/min (>60); Est Glom Filt Rate - Afr Amer 118 mL/min (>60); Estimated Creatinine Clearance 34.59 ml/min; Glucose 100 mg/dL (74-106); Potassium 4.1 mmol/L (3.5-5.1); Sodium Level 138 mmol/L (136-145)
--- NOTE | 2021-10-18 18:56 | CM.ED ---
Social Work Note Reason for Referral: No PCP SW reviewed chart and No PCP is listed for pt. SW in to speak with pt. Pt states she was seeing Dr. Ford but he left. Pt states that she then saw Milagros Aguirre but she left town. Pt states she is trying to get a PCP. SW provided pt with list of PCP. Binta Ortega COMPENSATION AND BENEFITS ADVISOR, SHRINKING MACHINE OPERATOR
[2021-10-18] MEDS: Morphine 4 MG/ML Syringe IV (18:59)
[2021-10-18] MEDS: predniSONE 20 MG Tablet 60 MG PO (19:03)
[2021-10-18 20:33] VITALS: BP 125/87
== END 2021-10-18 20:37 | disposition home or self-care (01) ==
PROVIDERS: Emergency Provider Emergency Medicine; Visit Provider Emergency Medicine
DX: M06.9 Rheumatoid arthritis, unspecified (principal)
CPT/HCPCS: 72040; 73030; 73130; 80048; 85025; 96374; 99284; A4216

== ENCOUNTER → 2022-01-28 | Outpatient (CLI) | payer MEDICARE, SELFPAY ==
[2022-01-28 16:50] LABS: BUP Internal Control LINE = VALID (VALID); Buprenorphine Drug Screen Positive (<10 ng/mL)
[2022-01-28 17:07] LABS: Amphetamine Urine VISTA NEGATIVE (<1000 ng/mL); Barbiturate Urine VISTA NEGATIVE (< 200 ng/mL); Benzodiazepine Urine VISTA NEGATIVE (< 200 ng/mL); Cocaine Urine VISTA NEGATIVE (< 300 ng/mL); Ecstacy Urine VISTA NEGATIVE (< 500 ng/mL); Methadone Urine VISTA NEGATIVE (< 300 ng/mL); PCP Urine VISTA NEGATIVE (< 25 ng/mL); THC Urine VISTA NEGATIVE (< 50 ng/mL); Vista UDS pH Range 4
== END | disposition home or self-care (01) ==
PROVIDERS: PCP Family Medicine; Visit Provider Anesthesiology Pain Medicine
DX: F11.20 Opioid dependence, uncomplicated (principal)
CPT/HCPCS: 80307

== ENCOUNTER 2022-05-04 12:06 | Emergency (ER) | payer MEDICARE, SELFPAY ==
[2022-05-04 12:07] VITALS: BP 150/102; PULSE 116; RESP 16; TEMP 36.8; O2SAT 98; BMI 19.6
--- NOTE | 2022-05-04 12:26 | CT_ITS ---
STUDY: CT Abdomen And Pelvis W/ Contrast Injection 05/04/2022 3:18 PM REASON FOR EXAM: Female, 81 years old. Abdominal pain RLQ pain -- IV PO Contrast Individualized dose optimization techniques were used for this CT. COMPARISON: 03/06/2021 and 9.22 TECHNIQUE: CT Abdomen And Pelvis W/ Contrast Injection Oral and amp; IV Gastrografin and amp; 100mL Isovue-370 FINDINGS: There are atherosclerotic calcifications of visualized coronary arteries. The visualized portions of the heart are within normal limits. Normal liver. Normal gallbladder and extrahepatic biliary system. Normal spleen. Normal pancreas. Normal bilateral adrenal glands. No acute findings of the right kidney. No acute findings of the left kidney. There is a small hiatal hernia. Normal small intestine. Stool throughout the colon. The appendix is visualized and appears normal. There are calcifications of the abdominal aorta. This is consistent for atherosclerotic disease. There is NO abdominal aortic aneurysm. Vascular workup can be obtained based on clinical correlation. Normal inferior vena cava. Subcentimeter mesenteric lymph nodes. Normal urinary bladder. The uterus is lobulated in contour. There are multiple partially calcified masses in the uterus. This is consistent for a fibroid/ myomatous uterus. There is scoliosis of the lumbar spine. Degenerative findings of the hips. Normal abdominal wall. There are diffuse degenerative changes of the visualized lumbar spine. There is a Grade [address]/Abdomen/Pelvis WITH Contrast IMPRESSION: (NOT LISTED IN ORDER OF SIGNIFICANCE) The appendix is visualized and appears normal. Fibroid uterus. Other findings as above. Electronically Signed: Jovan Lowe MD at 15:21 EST ,
--- NOTE | 2022-05-04 12:26 | EDS_ITS ---
HPI HPI - GI History of Present Illness Chief Complaint: Abd Pain Informant: patient and family Narrative Narrative: Here with daughter persistent right lower quadrant pain since this morning. No fevers. No vomiting or diarrhea normal bowel movement this morning. States had mild symptoms end of summer early fall that she noted similar have it went away. Has not caused problems since then. 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 States noncancerous. History of methotrexate secondary to rheumatoid arthritis. She is on tramadol for pain control. Denies urinary symptoms. Of note, 10 days out from COVID symptoms. Had diagnosis a week ago in [place]. Status post packed Slo-Bid. Symptomatically improved from her congestion sore throat and headaches.COVID 1 other time and has been vaccinated. Prior similar symptoms: Yes PFSH PFSH Medical History Arthritis Back pain Cardiology follow-up encounter Easy bruising Gastric reflux History of hiatal hernia History of irregular heartbeat History of pain when walking History of steroid therapy Injury of back MVP (mitral valve prolapse) Normal stress echocardiogram Post-menopausal Premature atrial contraction Premature ventricular contraction Rheumatoid arthritis Sleep apnea Supraventricular tachycardia Wears contact lenses Wears glasses Home Medications methotrexate sodium (PF) 25 mg/mL injection solution 75 mg IM TH 11/29/13 [History Last Taken 09/16/21] prednisone 5 mg tablet 5 mg PO DAILY 11/29/13 [History Last Taken 07/02/21] alendronate 70 mg tablet (Fosamax) 70 mg PO QWEEK 11/10/18 [History Last Taken Unknown] folic acid 400 mcg tablet 0.8 mg PO DAILY@0800 11/10/18 [History Last Taken Unknown] celecoxib 200 mg capsule 200 mg PO DAILY PRN Pain 12/12/20 [History Last Taken Unknown] multivitamin 3 tab PO DAILY 06/25/21 [History Last Taken Unknown] tofacitinib 5 mg tablet (Xeljanz) 5 mg PO BID 06/25/21 [History Last Taken 09/16/21] buprenorphine 10 mcg/hour weekly transdermal patch (Butrans) 5 mcg topical QWEEK 09/16/21 [History Last Taken Unknown] tramadol 50 mg tablet 50 mg PO BID 12/18/21 [History Last Taken Unknown] Allergy/AdvReac Type Severity Reaction Status Date / Time amoxicillin trihydrate Allergy Rash Verified 12/18/21 15:42 [From Trimox] Family History Father CAD (coronary artery disease) CVA (cerebral vascular accident) Hypertension Heart disease Brother CAD (coronary artery disease) Mother Osteoporosis Surgical History H/O total knee replacement History of cardiac radiofrequency ablation (~2000) History of incisional hernia repair History of removal of ovarian cyst Hx of cataract surgery Hx of hernia repair Hx of kyphoplasty Social History Smoking Status: Never smoker alcohol intake: never substance use type: does not use what type of physical activity do you participate in: none ROS ROS ED Constitutional Constitutional ED: Denies chills, fever(s) or sweats Eyes Eyes: Denies change in vision ENT ENT ED: Denies dysphagia or sore throat Cardiovascular Cardiovascular: Denies chest pain, leg edema, palpitations or racing heartbeat Respiratory/Chest Respiratory/Chest: Denies cough, dyspnea or dyspnea on exertion Gastrointestinal Gastrointestinal: Reports abdominal pain; Denies diarrhea, nausea or vomiting Genitourinary Genitourinary ED: Denies dysuria, hematuria or urinary frequency Musculoskeletal Musculoskeletal: Denies back pain, extremity pain or neck pain Integumentary Denies rash or wounds Neurologic Neurologic: Denies headache(s), paresthesias or weakness EXAM Physical Exam Const Vital Signs: 05/04/22 12:07 Temperature 98.3 F Temperature Source Temporal Pulse Rate 116 H Respiratory Rate 16 Blood Pressure 150/102 H Blood Pressure Mean 118 Pulse Ox 98 Oxygen Delivery Method Room Air Positive well nourished and well developed General Appearance ED: well developed and NAD HEENT Reports moist mucous membranes normocephalic and atraumatic Eyes PERRL, EOMs intact bilaterally and conjunctivae normal General Eye ED: Yes normal appearance of both eyes Neck no lymphadenopathy and supple General: Negative for tenderness Chest Wall Chest: Negative for tenderness Resp normal respiratory effort and normal air movement Effort and Inspection: symmetric chest movement; Negative for respiratory distress Cardio regular rhythm and no murmurs Rate: tachycardic Peripheral Pulses: pulses 2+ throughout GI normal to inspection, nondistended, normoactive bowel sounds GI Narrative: Tenderness to deep palpation right lower quadrant. Negative Zamora's. Negative Rovsing's. No rash. Palpation: Negative for guarding or rebound tenderness present Back/Spine no CVA tenderness and no thoracic nor lumbar tenderness Extremity normal to inspection General Extremety ED: Negative for edema or tenderness General Extremity: Negative for edema Neuro oriented x3 and no sensory deficits noted Sensorium / Orientation: awake and alert Skin no rashes or lesions noted and no wounds MDM MDM MDM Narrative Medical decision making narrative: Exam tender palpation right lower quadrant. Work-up initiated. She declined any medications. Abdominal labs were all normal. Urine with leukocytes and white cells and 3+ bacteria however she denies any urine symptoms or frequency or dysuria. Contrast CT scan abdomen pelvis per radiology normal appendix notes multiple uterine fibroids. Discussed the findings with patient and family. Discussed urine culture sent should be contacted for treatment. She will use Tylenol she will follow-up with her baker doughnut Dr. Vickers for outpatient evaluation. All questions were answered. Lab Data Labs: Laboratory Results - last 24 hr 05/04/22 05/04/22 05/04/22 12:55 12:55 13:40 WBC 8.8 RBC 4.26 Hgb 13.0 Hct 41.4 MCV 97.2 MCH 30.5 MCHC 31.4 L RDW Std Deviation 51.4 H RDW Coeff of Eusebio 14.6 Plt Count 357 MPV 10.6 Immature Gran % (Auto) 0.700 Neut % (Auto) 77.7 H Lymph % (Auto) 8.0 L [place] % (Auto) 12.2 H Eos % (Auto) 0.9 Baso % (Auto) 0.5 Absolute Neuts (auto) 6.9 Absolute Lymphs (auto) 0.71 L Nucleated RBC % 0 Sodium 142 Potassium 3.8 Chloride 107 Carbon Dioxide 29.0 Anion Gap 6 BUN 18 Creatinine 0.83 Estim Creat Clear Calc 40.82 Est GFR (MDRD) Af Amer 84 Est GFR (MDRD) Non-Af 70 BUN/Creatinine Ratio 21.6 H Glucose 94 Calcium 9.7 Total Bilirubin 0.60 AST 38 H ALT 22 Alkaline Phosphatase 109 Total Protein 7.0 Albumin 3.4 Globulin 3.6 Albumin/Globulin Ratio 0.9 Lipase 103 Urine Color Yellow Urine Clarity Sl. Cloudy Urine pH 5.0 Ur Specific [place] 1.020 Urine Protein 30 H Urine Glucose (UA) Normal Urine Ketones Negative Urine Occult Blood 50 H Urine Nitrite Negative Urine Bilirubin Negative Urine Urobilinogen Normal Ur Leukocyte Esterase 500 H Urine RBC 0-5 SEEN Urine WBC 50-100 SEEN Ur Squamous Epith Cells 0-5 SEEN Urine Bacteria 3+ Urine Mucus 0 SEEN Radiography Diagnostic Testing: Clinical Impression(s) from Imaging Studies Abdomen/Pelvis CT 05/04/22 12:26 IMPRESSION: (NOT LISTED IN ORDER OF SIGNIFICANCE) The appendix is visualized and appears normal. Fibroid uterus. Other findings as above. Electronically Signed: Jovan Lowe MD at 15:21 EST Reading Location ID and State: [facility] / [place] , Service support , Discharge Plan Triage Chief Complaint: Abd Pain ED Provider: Jackson Manning Dx/Rx/DC Orders Clinical Impression: Fibroid, uterine, Pain, pelvic, female Instructions: ED Uterine Fibroids Prescriptions: No Action alendronate [Fosamax] 70 mg tablet 70 mg PO QWEEK tramadol 50 mg tablet 50 mg PO BID prednisone 5 MG tablet 5 mg PO DAILY methotrexate sodium (PF) 25 MG/ML solution 75 mg IM TH Hold Instructions: Resume on 10/15/21. Label Comments: HOLD WEEK OF SURGERY-PER DR. HOLDEN folic acid 400 mcg tablet 0.8 mg PO DAILY@0800 celecoxib 200 mg capsule 200 mg PO DAILY PRN (Reason: Pain) multivitamin Tablet 3 tab PO DAILY Xeljanz 5 mg tablet 5 mg PO BID Hold Instructions: Resume on 10/15/21. buprenorphine [Butrans] 10 mcg/hour patch weekly 5 mcg topical QWEEK Label Comments: Thursday Primary Care Provider: Milagros Aguirre NP Referrals: Nilda Ulrich DO [Med Staff - Active Staff] - 1-2 Weeks Milagros Aguirre NP, JOB DEVELOPER-C [Primary Care Provider] - Activity Restrictions/Additional Instructions: Normal appendix on CT. uterine fibroids noted. Labs were normal. Urine culture sent will be contacted if you need antibiotics Since you are not having any symptoms of urine infection. Tylenol as needed. Follow-up with Dr. Vickers. Disposition Disposition: Home, Self Care Discharge Date/Time: 05/04/22 15:47
[2022-05-04] MEDS: 0.9% Normal Saline 1,000 ML 125 ML IV (12:58)
[2022-05-04 13:00] LABS: Absolute Lymphocyte Count 0.71 X10^3/uL (0.83-4.51); Absolute Neutrophil Count 6.9 X10^3/uL (2.0-7.7); Basophil# 0.04 X10^3/uL; Basophil% 0.5 % (0-1); Eosinophil# 0.08 X10^3/uL; Eosinophils% 0.9 % (0-5); Hematocrit 41.4 % (37-47); Lymphocyte # 0.71 X10^3/ul (0.83-4.51); Mean Corp Hgb Conc 31.4 g/dL (32-36); Mean Corpuscular Hgb 30.5 pg (27.0-32.0); Mean Corpuscular Volume 97.2 fL (81-99); Mean Platelet Vol. 10.6 fl (6.2-12.0); Monocyte# 1.08 X10^3/uL; Monocyte% 12.2 % (0-10); NRBC Flagged by Analyzer 0 % (0-5); Neutrophil # 6.85 X10^3/uL (2.7-7.7); Neutrophil % 77.7 % (47-70); Platelet Count 357 K/mm3 (150-450); RBC Distribution Width CV 14.6 % (11.6-14.6); RBC Distribution Width SD 51.4 fl (35.1-43.9); Red Blood Count 4.26 M/mm3 (4.2-5.4); White Blood Count 8.8 K/mm3 (4.4-11.0)
[2022-05-04 13:17] LABS: ALB/GLOB Ratio 0.9 RATIO (0.9-2.4); AST(SGOT) 38 U/L (15-37); Alanine Aminotransfer ALT/SGPT 22 U/L (13-56); Albumin, Serum 3.4 g/dL (3.2-5.0); Alkaline Phosphatase 109 U/L (45-117); Anion Gap 6 (5-15); BUN 18 mg/dL (7-18); BUN/Creat Ratio 21.6 RATIO (10-20); Calcium,Total 9.7 mg/dL (8.5-10.1); Chloride 107 mmol/L (98-107); Creatinine, Serum 0.83 mg/dL (0.55-1.02); EST Glomerular Filtration Rate 70 mL/min (>60); Est Glom Filt Rate - Afr Amer 84 mL/min (>60); Estimated Creatinine Clearance 40.82 ml/min; Globulin 3.6 g/dL (2.2-4.2); Glucose 94 mg/dL (74-106); Lipase 103 U/L (73-393); Potassium 3.8 mmol/L (3.5-5.1); Sodium Level 142 mmol/L (136-145)
[2022-05-04 13:44] LABS: Mucous, Urine 0 SEEN /hpf (<or=2+)
[2022-05-04 13:45] LABS: Color, Urine Yellow (Yellow); Glucose, Dipstick Normal (Normal); Ketone-Dipstick Negative (Negative); Leukocyte Esterase-Dipstick 500 /ul (Negative); Nitrite-Dipstick Negative (Negative); Occult Blood-Urine 50 /ul (Negative); Protein-Dipstick 30 mg/dl (Negative); Urine Bilirubin Dipstick Negative (Negative); Urine Clarity Sl. Cloudy (Clear); Urine Urobilinogen Normal (Normal)
[2022-05-04 13:51] LABS: Bacteria 3+ /hpf (None Seen); Red Blood Cells-Urine 0-5 SEEN /hpf (0-5); Squamous Epithelial Cells - UA 0-5 SEEN /hpf (5-10); White Blood Cells 50-100 SEEN /hpf (0-5)
== END 2022-05-04 15:47 | disposition home or self-care (01) ==
PROVIDERS: Emergency Provider Emergency Medicine; PCP Registered Nurse; Visit Provider Emergency Medicine
DX: D25.9 Leiomyoma of uterus, unspecified (principal); J02.9 Acute pharyngitis, unspecified; R51.9 Headache, unspecified; R10.813 Right lower quadrant abdominal tenderness; R10.31 Right lower quadrant pain; R10.2 Pelvic and perineal pain
CPT/HCPCS: 74177; 80053; 81001; 83690; 85025; 87086; 87088; 87811; 96360; 96361; 99283; J7030; Q9967

== ENCOUNTER 2022-05-11 10:16 | Emergency (ER) | payer MEDICARE, SELFPAY ==
[2022-05-11 10:17] VITALS: BP 146/79; PULSE 73; RESP 18; TEMP 36.1; O2SAT 100; BMI 19.3
--- NOTE | 2022-05-11 10:39 | CT_ITS ---
STUDY: CT ABDOMEN AND PELVIS WITH CONTRAST REASON FOR EXAM: Female, 81 years old. Abdominal pain RADIATION DOSAGE (If Supplied By Facility): CTDIvol = ( 13.91 ) mGy, DLP = ( 348.29 ) mGycm TECHNIQUE: Transaxial images were obtained from the dome of the diaphragm to the symphysis pubis without oral contrast. IV 100mL Isovue-370 was administered. Sagittal and coronal images were reconstructed. Individualized dose optimization techniques were used for this CT. COMPARISON: May 04, 2022 FINDINGS: There are chronic interstitial fibrotic changes of the lung bases. There are coronary artery calcifications. Normal liver. Normal gallbladder and extrahepatic biliary system. Normal spleen. Normal pancreas. Normal bilateral adrenal glands. Normal right kidney. Normal left kidney. There is moderate hiatal hernia with postoperative change at the gastroesophageal junction. There is wall thickening of the stomach. Normal small intestine. Normal colon. The appendix is visualized and appears normal. There is diffuse atherosclerotic calcification of the abdominal aorta with elongation and tortuosity, but without a demonstrated aneurysm. Normal inferior vena cava. Normal retroperitoneum. Normal urinary bladder. There are multiple calcified uterine fibroids. There is no free fluid in the abdomen or pelvis. Normal abdominal wall. There is levoscoliosis with degenerative change of the spine. There is arthritic change at the pubic symphysis. CT/Abdomen/Pelvis W IV Cont ONLY IMPRESSION: No obstruction. Hiatal hernia with postoperative change. Wall thickening of the stomach suggesting gastritis versus ulcer disease. Calcified uterine fibroids. Electronically Signed: Eb Franklin MD at 12:00 EST ,
--- NOTE | 2022-05-11 10:40 | ED.VIS.GI ---
HPI HPI - GI History of Present Illness Chief Complaint: Abd Pain Detail of Chief Complaint: Abdominal pain Informant: patient Abdominal Pain/Flank Pain Current Severity: 02/17 Narrative Narrative: Patient presents the emergency department complaint of abdominal pain that woke her up around 3 AM. She describes a sharp stabbing pain left abdomen from her ribs down to her lower abdomen. She has had dry heaves. She denies urinary symptoms. Patient states that last week she was seen in the ER for right-sided abdominal pain that then just resolved and no etiology was found. Patient denies any blood in her stool or black tarry stool. [facility] Medical History Arthritis Back pain Cardiology follow-up encounter Easy bruising Gastric reflux History of hiatal hernia History of irregular heartbeat History of pain when walking History of steroid therapy Injury of back MVP (mitral valve prolapse) Normal stress echocardiogram Post-menopausal Premature atrial contraction Premature ventricular contraction Rheumatoid arthritis Sleep apnea Supraventricular tachycardia Wears contact lenses Wears glasses Home Medications methotrexate sodium (PF) 25 mg/mL injection solution 75 mg IM TH 11/29/13 [History Last Taken 09/16/21] prednisone 5 mg tablet 5 mg PO DAILY 11/29/13 [History Last Taken 07/02/21] alendronate 70 mg tablet (Fosamax) 70 mg PO QWEEK 11/10/18 [History Last Taken Unknown] folic acid 400 mcg tablet 0.8 mg PO DAILY@0800 11/10/18 [History Last Taken Unknown] celecoxib 200 mg capsule 200 mg PO DAILY PRN Pain 12/12/20 [History Last Taken Unknown] multivitamin 3 tab PO DAILY 06/25/21 [History Last Taken Unknown] tofacitinib 5 mg tablet (Xeljanz) 5 mg PO BID 06/25/21 [History Last Taken 09/16/21] buprenorphine 10 mcg/hour weekly transdermal patch (Butrans) 5 mcg topical QWEEK 09/16/21 [History Last Taken Unknown] tramadol 50 mg tablet 50 mg PO BID 12/18/21 [History Last Taken Unknown] hydrocodone-acetaminophen 5-325mg 5mg-325mg 1 tab PO Q4H PRN PRN Pain 2 days #10 TABLETS 05/11/22 [Rx Last Taken Unknown] lansoprazole 30 mg capsule,delayed release (Prevacid) 30 mg PO DAILY 4 weeks #28 caps 05/11/22 [Rx Last Taken Unknown] Allergy/AdvReac Type Severity Reaction Status Date / Time amoxicillin trihydrate Allergy Rash Verified 05/11/22 10:18 [From Trimox] Family History Father CAD (coronary artery disease) CVA (cerebral vascular accident) Hypertension Heart disease Brother CAD (coronary artery disease) Mother Osteoporosis Surgical History H/O total knee replacement History of cardiac radiofrequency ablation (~2000) History of incisional hernia repair History of removal of ovarian cyst Hx of cataract surgery Hx of hernia repair Hx of kyphoplasty Social History Smoking Status: Never smoker alcohol intake: never substance use type: does not use what type of physical activity do you participate in: none ROS ROS ED Review of Systems ROS Unobtainable: other Constitutional Constitutional ED: Reports lethargy; Denies chills, fever(s), sweats or weight loss Eyes Eyes: Denies blurry vision, change in vision or diplopia ENT ENT ED: Denies rhinorrhea or sore throat Cardiovascular Cardiovascular: Denies chest pain, orthopnea or racing heartbeat Respiratory/Chest Respiratory/Chest: Denies cough, dyspnea, dyspnea on exertion, orthopnea or sputum Gastrointestinal Gastrointestinal: Reports abdominal pain, nausea and vomiting; Denies diarrhea Genitourinary Genitourinary ED: Denies dysuria, hematuria or urinary frequency Musculoskeletal Musculoskeletal: Denies arthralgias, back pain, myalgias or neck pain Integumentary Denies abscess, Abrasions or rash Neurologic Neurologic: Denies headache(s) or weakness Psychiatric Psychiatric: Denies anxiety, depression or suicidal thoughts Endocrine Endocrinology: Denies polydipsia, polyphagia or polyuria Hematologic/Lymphatic Hematologic/Lymphatic: Denies easy bleeding, easy bruising or lymphadenopathy Allergic/Immunologic Allergic/Immunologic ED: Denies mouth swelling, tongue swelling or urticaria EXAM Physical Exam Const Vital Signs: 05/11/22 10:17 05/11/22 12:41 Temperature 96.9 F L Temperature Source Temporal Pulse Rate 73 82 Respiratory Rate 18 18 Blood Pressure 146/79 H 158/87 H Blood Pressure Mean 101 110 Pulse Ox 100 96 Oxygen Delivery Method Room Air Room Air Positive well nourished and well developed General Appearance ED: well developed and NAD HEENT Reports TM's clear and moist mucous membranes normocephalic and atraumatic; Negative for trauma or tenderness Tympanic Membrane ED: Yes TM's clear Eyes PERRL and EOMs intact bilaterally General Eye ED: Negative for pale conjunctiva or scleral icterus Neck no lymphadenopathy, supple and no JVD General: Negative for tenderness Chest Wall inspection of chest normal and palpation of chest normal Chest: Negative for tenderness Resp normal respiratory effort and clear to auscultation bilaterally Effort and Inspection: Negative for respiratory distress or pain with movement Auscultation: Negative for rhonchi, wheezes or diminished lung sounds Cardio regular rate, regular rhythm, S1 normal heart sound, S2 normal heart sound and no murmurs Peripheral Pulses: pulses 2+ throughout GI normal to inspection, nondistended, normoactive bowel sounds, soft to palpation, non-distended and no masses GI Narrative: Tenderness palpation over left lower quadrant and left upper quadrant with guarding. There is no rebound, rigidity, or peritoneal signs. Mild CVA tenderness on the left. Back/Spine no CVA tenderness and no thoracic nor lumbar tenderness Extremity normal to inspection General Extremety ED: Negative for edema General Extremity: Negative for edema Neuro oriented x3, CN's II-XII intact bilaterally, no sensory deficits noted and gait normal Sensorium / Orientation: awake, alert, oriented to person, oriented to place and oriented to time Motor Exam: strength 5/5 throughout and strength abnormal Psych mental status grossly normal Skin no rashes or lesions noted and no wounds MDM MDM MDM Narrative Medical decision making narrative: IV line established on arrival. Patient was medicated with the law did and Zofran IV. Patient continued to have pain and was given a second dose of Dilaudid. Patient lab work-up was unremarkable. Lactate was normal. Urinalysis was normal. CT scan of the abdomen pelvis obtained with IV contrast that shows some thickening of the stomach wall which might represent gastritis versus an ulcer. I did give patient Protonix 80 mg bolus. I will start patient on Prevacid and write for a few hydrocodone for pain. I attempted to consult her shading painter but did not hear back. Patient advised to return if worsening pain, fever, vomiting, or condition should worsen anyway. She is to return if blood in her vomitus or black tarry stools. Lab Data Labs: Laboratory Results - last 24 hr 05/11/22 05/11/22 05/11/22 10:54 10:54 10:54 WBC 8.6 RBC 4.29 Hgb 13.1 Hct 41.5 MCV 96.7 MCH 30.5 MCHC 31.6 L RDW Std Deviation 49.5 H RDW Coeff of Eusebio 14.1 Plt Count 343 MPV 11.0 Immature Gran % (Auto) 0.600 Neut % (Auto) 75.9 H Lymph % (Auto) 9.7 L Crisp % (Auto) 12.8 H Eos % (Auto) 0.5 Baso % (Auto) 0.5 Absolute Neuts (auto) 6.5 Absolute Lymphs (auto) 0.83 Nucleated RBC % 0 Sodium 144 Potassium 3.9 Chloride 111 H Carbon Dioxide 30.0 Anion Gap 3 L BUN 12 Creatinine 0.77 Estim Creat Clear Calc 33.27 Est GFR (MDRD) Af Amer 92 Est GFR (MDRD) Non-Af 76 BUN/Creatinine Ratio 15.5 Glucose 106 Lactic Acid 0.9 Calcium 9.1 Total Bilirubin 0.40 AST 27 ALT 18 Alkaline Phosphatase 98 Total Protein 6.6 Albumin 3.2 Globulin 3.4 Albumin/Globulin Ratio 0.9 Urine Color Urine Clarity Urine pH Ur Specific [place] Urine Protein Urine Glucose (UA) Urine Ketones Urine Occult Blood Urine Nitrite Urine Bilirubin Urine Urobilinogen Ur Leukocyte Esterase Urine RBC Urine WBC Ur Squamous Epith Cells Urine Bacteria Urine Mucus 05/11/22 12:35 WBC RBC Hgb Hct MCV MCH MCHC RDW Std Deviation RDW Coeff of Eusebio Plt Count MPV Immature Gran % (Auto) Neut % (Auto) Lymph % (Auto) Crisp % (Auto) Eos % (Auto) Baso % (Auto) Absolute Neuts (auto) Absolute Lymphs (auto) Nucleated RBC % Sodium Potassium Chloride Carbon Dioxide Anion Gap BUN Creatinine Estim Creat Clear Calc Est GFR (MDRD) Af Amer Est GFR (MDRD) Non-Af BUN/Creatinine Ratio Glucose Lactic Acid Calcium Total Bilirubin AST ALT Alkaline Phosphatase Total Protein Albumin Globulin Albumin/Globulin Ratio Urine Color Yellow Urine Clarity Clear Urine pH 7.0 Ur Specific [place] 1.015 Urine Protein Negative Urine Glucose (UA) Normal Urine Ketones Negative Urine Occult Blood 250 H Urine Nitrite Negative Urine Bilirubin Negative Urine Urobilinogen Normal Ur Leukocyte Esterase 25 H Urine RBC 10-25 SEEN Urine WBC 0 SEEN Ur Squamous Epith Cells 0-5 SEEN Urine Bacteria 0 SEEN Urine Mucus 0 SEEN Radiography Diagnostic Testing: Clinical Impression(s) from Imaging Studies Abdomen/Pelvis CT 05/11/22 10:39 IMPRESSION: No obstruction. Hiatal hernia with postoperative change. Wall thickening of the stomach suggesting gastritis versus ulcer disease. Calcified uterine fibroids. Electronically Signed: Eb Franklin MD at 12:00 EST , Discharge Plan Triage Chief Complaint: Abd Pain ED Provider: Ross Adler Dx/Rx/DC Orders Clinical Impression: Abdominal pain Instructions: ED Abdominal Pain Unkn Cause Fem Prescriptions: New hydrocodone-acetaminophen [hydrocodone-acetaminophen] 1 TABLET tablet 1 tab PO Q4H PRN PRN (Reason: Pain) 2 Days Qty: 10 0RF lansoprazole [Prevacid] 30 mg capsule,delayed release(DR/EC) 30 mg PO DAILY 28 Days Qty: 28 0RF No Action alendronate [Fosamax] 70 mg tablet 70 mg PO QWEEK tramadol 50 mg tablet 50 mg PO BID prednisone 5 MG tablet 5 mg PO DAILY methotrexate sodium (PF) 25 MG/ML solution 75 mg IM TH Hold Instructions: Resume on 10/15/21. Label Comments: HOLD WEEK OF SURGERY-PER DR. HOLDEN folic acid 400 mcg tablet 0.8 mg PO DAILY@0800 celecoxib 200 mg capsule 200 mg PO DAILY PRN (Reason: Pain) multivitamin Tablet 3 tab PO DAILY Xeljanz 5 mg tablet 5 mg PO BID Hold Instructions: Resume on 10/15/21. buprenorphine [Butrans] 10 mcg/hour patch weekly 5 mcg topical QWEEK Label Comments: Thursday Primary Care Provider: Milagros Aguirre NP Referrals: Milagros Aguirre NP, [employer]ING MACHINE OPERATOR-[employer] [Primary Care Provider] - 3-5 Days Disposition Disposition: Home, Self Care
[2022-05-11] MEDS: HYDROmorphone 1 MG/ML Syringe IV ×2 (10:51→12:48)
[2022-05-11] MEDS: Ondansetron 4 MG/2 ML Vial IV (10:51)
[2022-05-11] MEDS: 0.9% Normal Saline 1,000 ML 125 ML IV (10:53)
[2022-05-11 11:09] LABS: Absolute Lymphocyte Count 0.83 X10^3/uL (0.83-4.51); Absolute Neutrophil Count 6.5 X10^3/uL (2.0-7.7); Basophil# 0.04 X10^3/uL; Basophil% 0.5 % (0-1); Eosinophil# 0.04 X10^3/uL; Eosinophils% 0.5 % (0-5); Hematocrit 41.5 % (37-47); Hemoglobin 13.1 g/dL (12.0-15.0); Lymphocyte # 0.83 X10^3/ul (0.83-4.51); Lymphocyte % 9.7 % (19-41); Mean Corp Hgb Conc 31.6 g/dL (32-36); Mean Corpuscular Hgb 30.5 pg (27.0-32.0); Mean Corpuscular Volume 96.7 fL (81-99); Monocyte% 12.8 % (0-10); NRBC Flagged by Analyzer 0 % (0-5); Neutrophil # 6.52 X10^3/uL (2.7-7.7); Neutrophil % 75.9 % (47-70); Platelet Count 343 K/mm3 (150-450); RBC Distribution Width CV 14.1 % (11.6-14.6); RBC Distribution Width SD 49.5 fl (35.1-43.9); Red Blood Count 4.29 M/mm3 (4.2-5.4); White Blood Count 8.6 K/mm3 (4.4-11.0)
[2022-05-11 11:17] LABS: ALB/GLOB Ratio 0.9 RATIO (0.9-2.4); AST(SGOT) 27 U/L (15-37); Alanine Aminotransfer ALT/SGPT 18 U/L (13-56); Albumin, Serum 3.2 g/dL (3.2-5.0); Alkaline Phosphatase 98 U/L (45-117); Anion Gap 3 (5-15); BUN 12 mg/dL (7-18); BUN/Creat Ratio 15.5 RATIO (10-20); Calcium,Total 9.1 mg/dL (8.5-10.1); Chloride 111 mmol/L (98-107); Creatinine, Serum 0.77 mg/dL (0.55-1.02); EST Glomerular Filtration Rate 76 mL/min (>60); Est Glom Filt Rate - Afr Amer 92 mL/min (>60); Estimated Creatinine Clearance 33.27 ml/min; Globulin 3.4 g/dL (2.2-4.2); Glucose 106 mg/dL (74-106); Potassium 3.9 mmol/L (3.5-5.1); Protein, Total 6.6 g/dL (6.4-8.2); Sodium Level 144 mmol/L (136-145)
[2022-05-11 11:25] LABS: Lactic Acid 0.9 mmol/L (0.4-1.9)
[2022-05-11 12:41] VITALS: BP 158/87; PULSE 82; RESP 18; O2SAT 96
[2022-05-11 12:42] LABS: Bacteria 0 SEEN /hpf (None Seen); Mucous, Urine 0 SEEN /hpf (<or=2+); White Blood Cells 0 SEEN /hpf (0-5)
[2022-05-11 12:49] LABS: Color, Urine Yellow (Yellow); Glucose, Dipstick Normal (Normal); Ketone-Dipstick Negative (Negative); Leukocyte Esterase-Dipstick 25 /ul (Negative); Nitrite-Dipstick Negative (Negative); Occult Blood-Urine 250 /ul (Negative); Protein-Dipstick Negative (Negative); Specific Gravity, Urine 1.015 (1.002-1.030); Urine Bilirubin Dipstick Negative (Negative); Urine Clarity Clear (Clear); Urine Urobilinogen Normal (Normal)
[2022-05-11 12:59] LABS: Red Blood Cells-Urine 10-25 SEEN /hpf (0-5); Squamous Epithelial Cells - UA 0-5 SEEN /hpf (5-10)
[2022-05-11 15:20] VITALS: BP 115/72; O2SAT 98
== END 2022-05-11 15:21 | disposition home or self-care (01) ==
PROVIDERS: Emergency Provider Emergency Medicine; PCP Registered Nurse; Visit Provider Emergency Medicine
DX: R10.9 Unspecified abdominal pain (principal); G47.30 Sleep apnea, unspecified
CPT/HCPCS: 74177; 80053; 81001; 83605; 85025; 96361; 96365; 96366; 96375; 96376; 99282; J7030; Q9967; J2405; J3490

== ENCOUNTER → 2022-05-27 | Outpatient (CLI) | payer MEDICARE, SELFPAY ==
--- NOTE | 2022-05-27 13:59 | BD_ITS ---
STUDY: DUAL ENERGY X-RAY ABSORPTIOMETRY / DXA REASON FOR EXAM: Female, 81 years old. [id number] TECHNIQUE: Bone Mineral Density (BMD) measurements of lumbar spine and bilateral hips were obtained. COMPARISON: None. FINDINGS: Lumbar Spine (L1-L4): g/cm2 (0.752) / T-score (-2.4) / Z-score (0.3) Findings are suggestive of osteopenia with a high fracture risk. Left Femur Total: g/cm2 (0.559) / T-score (-3.1) / Z-score (-0.9) Left Femoral Neck: g/cm2 (0.469) / T-score (-3.4) / Z-score (-1.0) Right Femur Total: g/cm2 (0.517) / T-score (-3.5) / Z-score (-1.2) Right Femoral Neck: g/cm2 (0.470) / T-score (-3.4) / Z-score (-1.0) BD/Dexa Bone Density Study IMPRESSION: The patient is considered osteoporotic as outlined below according to World Henrik Organization (WHO) criteria with a high fracture risk. Reference Information: The T-score is the number of standard deviations above or below the standard which is normal for young adults at their peak bone mineral density. The World Health Organization (WHO) interprets the T-scores as follows: Above -1 Normal bone density Between -1 and -2.5 Osteopenia Equal to / or below -2.5 Osteoporosis As a practical clinical guideline, osteopenia may be graded as follows: Mild -1 through -1.5 Moderate -1.6 through -2.0 Severe -2.1 through -2.4 The Z-score is the number of standard deviations above or below age-matched controls. A Z-score of less than -1.5 would be considered abnormal. References: 1. NIH Osteoporosis and Related Bone Diseases www osteo.org 2. International Society for Clinical Densitometry www iscd.org 3. National Osteoporosis Foundation www nof.org Electronically Signed: Tanner Clemens MD at 13:30 EST ,
== END | disposition home or self-care (01) ==
LOC: OPBD 13:50
PROVIDERS: PCP Registered Nurse; Visit Provider Registered Nurse
DX: M81.0 Age-related osteoporosis without current pathological fracture (principal)
CPT/HCPCS: 77080

== ENCOUNTER → 2022-06-24 | Outpatient (CLI) | payer MEDICARE, SELFPAY ==
--- NOTE | 2022-06-24 11:00 | BI_ITS ---
MAMMOGRAPHY - BILATERAL SCREENING REASON FOR EXAM: Female, 81 years old. Routine annual screening examination. PERTINENT HISTORY: Grandmother with breast cancer. TECHNIQUE: Digital bilateral breast star (3D mammographic acquisition) in the CC and MLO projections. 2-D mediolateral oblique (MLO) and craniocaudad (CC) views of both breasts were obtained. CAD: Full Field Digital Mammography with Computer Added Detection was performed. COMPARISON: Comparison is made with prior study dated 01/23/2021 and 11/04/2013. FINDINGS: Breast Composition: There are scattered areas of fibroglandular density. There are no dominant masses or suspicious calcifications. Stable bilateral secretory calcifications. No other significant abnormalities are identified. There has been no significant change since the prior study. BI/SCRN MAMM (CAD)W/STAR BILAT IMPRESSION: Stable bilateral screening mammogram. Yearly follow-up mammogram recommended. (A) ASSESSMENT CATEGORY: BIRADS Category 2: Benign. A letter regarding these results will be sent to the patient by the facility within 30 days. Approximately 10% of breast cancers are not detected by mammography. A normal mammogram should not delay biopsy of a clinically suspicious abnormality. [id number] Electronically Signed: Tanner Clemens MD at 12:02 EST ,
== END | disposition home or self-care (01) ==
LOC: OPBI 10:58
PROVIDERS: PCP Registered Nurse; Visit Provider Registered Nurse
DX: Z12.31 Encounter for screening mammogram for malignant neoplasm of breast (principal)
CPT/HCPCS: 77063; 77067

== ENCOUNTER → 2022-09-16 | Outpatient (CLI) | payer MEDICARE, SELFPAY ==
[2022-09-16 17:09] LABS: Amphetamine Urine VISTA NEGATIVE (<1000 ng/mL); Barbiturate Urine VISTA NEGATIVE (< 200 ng/mL); Benzodiazepine Urine VISTA NEGATIVE (< 200 ng/mL); Cocaine Urine VISTA NEGATIVE (< 300 ng/mL); Ecstacy Urine VISTA NEGATIVE (< 500 ng/mL); Methadone Urine VISTA NEGATIVE (< 300 ng/mL); PCP Urine VISTA NEGATIVE (< 25 ng/mL); THC Urine VISTA NEGATIVE (< 50 ng/mL); Vista UDS pH Range 4
== END | disposition home or self-care (01) ==
PROVIDERS: PCP Registered Nurse; Referring Provider Anesthesiology Pain Medicine; Visit Provider Anesthesiology Pain Medicine
DX: F11.20 Opioid dependence, uncomplicated (principal)
CPT/HCPCS: 80307

== ENCOUNTER 2022-09-29 09:09 | Inpatient (IN) | payer MEDICARE, SELFPAY ==
[2022-09-29] VITALS (9 sets, daily range): BP systolic 119–157; BP diastolic 7–88; PULSE 66–81; RESP 13–18; TEMP 36.7–37.8; O2SAT 91–98; BMI 21.5; BMI 20.3
--- NOTE | 2022-09-29 09:51 | RAD_ITS ---
INDICATION: fall EXAMINATION/TECHNIQUE: X-RAY - RIGHT XR Femur Min 2 Views 4 VIEWS COMPARISON: FINDINGS: SOFT TISSUES: There are vascular calcifications. There are rounded calcified foci within the pelvis suggestive of calcified fibroids. BONES/JOINTS: There appears to be a femoral neck deformity. No dislocation is visualized. There is a total knee arthroplasty that is grossly anatomic in alignment. Preservation of the joint space.. No sclerotic or destructive changes observed. RAD/Femur Min 2 Views IMPRESSION: Findings concerning for a femoral neck fracture. Electronically Signed: Neeta Poole MD at 11:11 EDT ,
--- NOTE | 2022-09-29 09:51 | RAD_ITS ---
STUDY: X-RAY - PELVIS REASON FOR EXAM: Female, 82 years old. Acute pain after a fall TECHNIQUE: One view of the pelvis was obtained. COMPARISON: None. FINDINGS: There is a non-specific bowel gas pattern. Normal visualized soft tissue structures. There is diffuse demineralization of the osseous structures. There is narrowing with cortical sclerosis and osteophyte formation of the sacroiliac joint consistent with degenerative osteoarthritic changes. Normal visualized bilateral superior and inferior pubic rami. Normal pubic symphysis. Normal ischial tuberosities. Popcorn-like calcification in the left hemipelvis likely represents involuted uterine fibroid. There are osteoarthritic changes of the right femoral head with marginal osteophyte formation. Normal right acetabulum. There is moderate articular joint space narrowing of the right hip. There are osteoarthritic changes of the left femoral head with marginal osteophyte formation. Normal left acetabulum. There is moderate articular joint space narrowing of the left hip. RAD/Pelvis 1 or 2 Views IMPRESSION: Osteopenia with age consistent bilateral hip and SI joint arthrosis, no demonstrated fracture or suspicious osseous lesion Electronically Signed: Catarino Ramírez MD at 10:53 EDT ,
--- NOTE | 2022-09-29 09:51 | CT_ITS ---
STUDY: CT BRAIN WITHOUT CONTRAST REASON FOR EXAM: Female, 82 years old. Headache after fall RADIATION DOSAGE (If Supplied By Facility): CTDIvol = ( 44.99 ) mGy, DLP = ( 812.98 ) mGycm TECHNIQUE: Transaxial CT imaging of the brain was performed without administration of intravenous contrast material. Individualized dose optimization techniques were used for this CT. COMPARISON: No relevant priors. FINDINGS: Normal soft tissue structures. Normal calvarium. There is mild cerebral atrophy with widening of the extra-axial spaces and ventricular dilatation. There are areas of decreased attenuation within the white matter tracts of the supratentorial brain, consistent with microvascular disease changes. Normal basal ganglia and thalami. Normal brainstem. Normal cerebellum. There is no intracranial hemorrhage. There are no findings of an acute ischemic infarction. Normal visualized paranasal sinuses. CT/Brain/Head without Contrast IMPRESSION: Chronic involutional changes of the brain, no acute hemorrhage. Electronically Signed: Catarino Ramírez MD at 10:48 EDT ,
--- NOTE | 2022-09-29 09:52 | CT_ITS ---
STUDY: CT CERVICAL SPINE WITHOUT CONTRAST REASON FOR EXAM: Female, 82 years old. Headache and neck pain after trauma RADIATION DOSAGE (If Supplied By Facility): CTDIvol = ( 11.81 ) mGy, DLP = ( 204.19 ) mGycm TECHNIQUE: High resolution transaxial imaging was performed without contrast material. Sagittal and coronal images were reconstructed. Individualized dose optimization techniques were used for this CT. COMPARISON: None FINDINGS: Normal craniovertebral junction. There are degenerative changes of the anterior atlantoaxial articulation. Normal odontoid process. Normal cervical lordosis. Bones are diffusely demineralized. C2-3: Normal endplates. Mild disc space narrowing.. Normal central canal and intervertebral neuroforamina. C3-4: Normal endplates. Disc space narrowing without central canal stenosis, bilateral foraminal narrowing due to facet joint hypertrophy. C4-5: Normal endplates. Disc space narrowing with broad-based central disc bulge which is partially calcified, no central canal stenosis, bilateral foraminal narrowing due to facet joint hypertrophy and spur formation C5-6: Normal endplates. Disc space narrowing with broad-based central disc bulge which is partially calcified, no central canal stenosis, bilateral foraminal narrowing due to facet joint hypertrophy and spur formation C6-7: Normal endplates. Disc space narrowing with broad-based central disc bulge which is partially calcified, no central canal stenosis, bilateral foraminal narrowing due to facet joint hypertrophy and spur formation C7-T1: Normal endplates. Mild disc space narrowing with broad-based central disc bulge, no central canal stenosis or foraminal narrowing. Normal visualized soft tissue structures. CT/Spine Cervical without Contras IMPRESSION: Multilevel degenerative changes, as described above. Electronically Signed: Catarino Ramírez MD at 10:51 EDT ,
[2022-09-29] MEDS: fentaNYL 100 MCG/2 ML Ampul 12.5 MCG IV (10:15)
[2022-09-29] MEDS: Ondansetron 4 MG/2 ML Vial IV (10:16)
[2022-09-29 10:18] LABS: Absolute Lymphocyte Count 0.82 X10^3/uL (0.83-4.51); Absolute Neutrophil Count 8.5 X10^3/uL (2.0-7.7); Basophil# 0.06 X10^3/uL; Basophil% 0.6 % (0-1); Hematocrit 44.5 % (37-47); Hemoglobin 14.4 g/dL (12.0-15.0); Lymphocyte # 0.82 X10^3/ul (0.83-4.51); Lymphocyte % 7.8 % (19-41); Mean Corp Hgb Conc 32.4 g/dL (32-36); Mean Corpuscular Hgb 31.4 pg (27.0-32.0); Mean Corpuscular Volume 97.2 fL (81-99); Mean Platelet Vol. 11.6 fl (6.2-12.0); Monocyte# 1.01 X10^3/uL; Monocyte% 9.6 % (0-10); NRBC Flagged by Analyzer 0 % (0-5); Neutrophil # 8.45 X10^3/uL (2.7-7.7); Neutrophil % 80.5 % (47-70); Platelet Count 338 K/mm3 (150-450); RBC Distribution Width CV 14.9 % (11.6-14.6); RBC Distribution Width SD 53.1 fl (35.1-43.9); Red Blood Count 4.58 M/mm3 (4.2-5.4); White Blood Count 10.5 K/mm3 (4.4-11.0)
[2022-09-29 10:47] LABS: Anion Gap 6 (5-15); BUN 13 mg/dL (7-18); BUN/Creat Ratio 19.3 RATIO (10-20); Calcium,Total 9.4 mg/dL (8.5-10.1); Chloride 108 mmol/L (98-107); Creatinine, Serum 0.67 mg/dL (0.55-1.02); EST Glomerular Filtration Rate 89 mL/min (>60); Est Glom Filt Rate - Afr Amer 107 mL/min (>60); Estimated Creatinine Clearance 33.12 ml/min; Glucose 91 mg/dL (74-106); Potassium 3.5 mmol/L (3.5-5.1); Sodium Level 143 mmol/L (136-145)
[2022-09-29] MEDS: fentaNYL 100 MCG/2 ML Ampul 25 MCG IV (11:43)
--- NOTE | 2022-09-29 11:56 | CT_ITS ---
STUDY: CT RIGHT FEMUR WITHOUT CONTRAST REASON FOR EXAM: Female, 82 years old. hip fracture RADIATION DOSAGE (If Supplied By Facility): CTDIvol = ( 12.36 ) mGy, DLP = ( 419.71 ) mGycm TECHNIQUE: Transaxial CT imaging of the femur was performed. Sagittal and coronal images were reconstructed. Individualized dose optimization techniques were used for this CT. COMPARISON: None. FINDINGS: An acute oblique subcapital/femoral neck fracture is present with mild displacement and foreshortening of the femur due to impaction. No additional acute fractures are present in the right hemipelvic structures. There is a healed fracture deformity in the posterior aspect of the right inferior pubic ramus. A small right hip joint effusion is present. Normal visualized soft tissue structure. The visualized intrapelvic structures are grossly unremarkable. CT/Extremity Lower without Contra IMPRESSION: 1. Complete oblique fracture through the right femoral neck with mild displacement. Electronically Signed: Eric Beasley MD at 12:56 EDT ,
[2022-09-29] MEDS: Morphine 4 MG/ML Syringe IV (12:19)
--- NOTE | 2022-09-29 13:03 | ED.VIS.FALL ---
HPI HPI - Fall History of Present Illness Chief Complaint: Fall Informant: patient Occured/Mechanism Occurred: Today Pain/Injury Pain Location: head and lower extremity Current Severity: Moderate Maximum Severity: Moderate Narrative Narrative: Presents secondary to fall. She states she tripped and fell this morning. She struck her forehead and injured her right hip. She did not get knocked out. She is not on blood thinners. PFSH PFS Medical History Arthritis Back pain Cardiology follow-up encounter Easy bruising Gastric reflux History of hiatal hernia History of irregular heartbeat History of pain when walking History of steroid therapy Injury of back MVP (mitral valve prolapse) Normal stress echocardiogram Post-menopausal Premature atrial contraction Premature ventricular contraction Rheumatoid arthritis Sleep apnea Supraventricular tachycardia Wears contact lenses Wears glasses Home Medications methotrexate sodium (PF) 25 mg/mL injection solution 75 mg IM TH 11/29/13 [History Last Taken 09/16/21] prednisone 5 mg tablet 5 mg PO DAILY 11/29/13 [History Last Taken 07/02/21] alendronate 70 mg tablet (Fosamax) 70 mg PO QWEEK 11/10/18 [History Last Taken 09/24/22] folic acid 400 mcg tablet 0.8 mg PO DAILY@0800 11/10/18 [History Last Taken Unknown] celecoxib 200 mg capsule 200 mg PO DAILY PRN Pain 12/12/20 [History Last Taken Unknown] multivitamin 3 tab PO DAILY 06/25/21 [History Last Taken Unknown] tofacitinib 5 mg tablet (Xeljanz) 5 mg PO BID 06/25/21 [History Last Taken 09/16/21] buprenorphine 10 mcg/hour weekly transdermal patch (Butrans) 5 mcg topical QWEEK 09/16/21 [History Last Taken 09/27/22] tramadol 50 mg tablet 50 mg PO BID 12/18/21 [History Last Taken Unknown] lansoprazole 30 mg capsule,delayed release (Prevacid) 30 mg PO DAILY 4 weeks #28 caps 05/11/22 [Rx Last Taken Unknown] ascorbic acid (vitamin C) 500 mg capsule 500 mg PO DAILY 05/27/22 [History Last Taken Unknown] cholecalciferol (vitamin D3) 50 mcg (2,000 unit) capsule 50 mcg PO DAILY 05/27/22 [History Last Taken Unknown] Allergy/AdvReac Type Severity Reaction Status Date / Time amoxicillin trihydrate Allergy Rash Verified 09/29/22 09:13 [From Trimox] Family History Father CAD (coronary artery disease) CVA (cerebral vascular accident) Hypertension Heart disease Brother CAD (coronary artery disease) Mother Osteoporosis Surgical History H/O total knee replacement History of cardiac radiofrequency ablation (~2000) History of incisional hernia repair History of removal of ovarian cyst Hx of cataract surgery Hx of hernia repair Hx of kyphoplasty Social History Smoking Status: Never smoker alcohol intake: never substance use type: does not use what type of physical activity do you participate in: none ROS ROS ED Constitutional Constitutional ED: Denies chills or fever(s) Eyes Eyes: Denies change in vision or discharge from eye(s) ENT ENT ED: Denies discharge from eye(s), rhinorrhea or sore throat Cardiovascular Cardiovascular: Denies chest pain or palpitations Respiratory/Chest Respiratory/Chest: Denies cough or dyspnea Gastrointestinal Gastrointestinal: Denies abdominal pain, nausea or vomiting Genitourinary Genitourinary ED: Denies difficulty urinating or dysuria Musculoskeletal Musculoskeletal: Reports extremity pain; Denies back pain Integumentary Reports other Details: Bruising to forehead ; Denies Abrasions or rash Neurologic Neurologic: Denies headache(s) or weakness Psychiatric Psychiatric: Denies anxiety or depression Allergic/Immunologic Allergic/Immunologic ED: Denies lip swelling or urticaria EXAM Physical Exam Const Vital Signs: 09/29/22 09:10 09/29/22 09:10 09/29/22 10:57 Temperature 98.1 F Temperature Source Oral Pulse Rate 67 66 Respiratory Rate 16 13 Respiratory Effort Normal Non-Labored Respiratory Depth Normal Respiratory Pattern Normal Blood Pressure 157/70 H 134/88 H Blood Pressure Mean 99 103 Pulse Ox 95 92 Oxygen Delivery Method Room Air Room Air Room Air 09/29/22 13:00 Temperature Temperature Source Pulse Rate 78 Respiratory Rate 17 Respiratory Effort Respiratory Depth Respiratory Pattern Blood Pressure 137/80 H Blood Pressure Mean 99 Pulse Ox 91 Oxygen Delivery Method Room Air Positive well nourished and well developed General Appearance ED: well developed HEENT Reports normocephalic HEENT Narrative: Right forehead ecchymosis. Eyes PERRL and EOMs intact bilaterally Neck supple Neck Narrative: No C-spine tenderness. Chest Wall inspection of chest normal and palpation of chest normal Resp normal respiratory effort and clear to auscultation bilaterally Cardio regular rate and regular rhythm GI normal to inspection, nondistended, normoactive bowel sounds Palpation: soft Extremity Extremity Narrative: Tenderness outpatient over the anterior right hip. Equal leg lengths. Strong distal pulses. Neuro oriented x3 and no sensory deficits noted Sensorium / Orientation: alert Psych mental status grossly normal MDM MDM MDM Narrative Medical decision making narrative: Given the patient's fall and history of rheumatoid arthritis, CT scan of the head as well as C-spine is obtained. X-ray of the pelvis and right femur obtained. Patient given fentanyl and Zofran for pain. Lab Data Attestation: I reviewed the patient's lab results. Labs: Laboratory Results - last 24 hr 09/29/22 09/29/22 09:40 09:40 WBC 10.5 RBC 4.58 Hgb 14.4 Hct 44.5 MCV 97.2 MCH 31.4 MCHC 32.4 RDW Std Deviation 53.1 H RDW Coeff of Eusebio 14.9 H Plt Count 338 MPV 11.6 Immature Gran % (Auto) 0.500 Neut % (Auto) 80.5 H Lymph % (Auto) 7.8 L [place] % (Auto) 9.6 Eos % (Auto) 1.0 Baso % (Auto) 0.6 Absolute Neuts (auto) 8.5 H Absolute Lymphs (auto) 0.82 L Nucleated RBC % 0 Sodium 143 Potassium 3.5 Chloride 108 H Carbon Dioxide 29.0 Anion Gap 6 BUN 13 Creatinine 0.67 Estim Creat Clear Calc 33.12 Est GFR (MDRD) Af Amer 107 Est GFR (MDRD) Non-Af 89 BUN/Creatinine Ratio 19.3 Glucose 91 Calcium 9.4 Radiography Diagnostic Testing: Clinical Impression(s) from Imaging Studies Brain CT 09/29/22 09:51 IMPRESSION: Chronic involutional changes of the brain, no acute hemorrhage. Electronically Signed: Catarino Ramírez MD at 10:48 EDT , Femur X-Ray 09/29/22 09:51 IMPRESSION: Findings concerning for a femoral neck fracture. Electronically Signed: Neeta Poole MD at 11:11 EDT , Pelvis X-Ray 09/29/22 09:51 IMPRESSION: Osteopenia with age consistent bilateral hip and SI joint arthrosis, no demonstrated fracture or suspicious osseous lesion Electronically Signed: Catarino Ramírez MD at 10:53 EDT , ADDENDUM: 09/29/22 1319 IMPRESSION: There is a slightly impacted subcapital femoral neck fracture the right femur. This is better seen and discussed on the dedicated study of the right femur. Electronically Signed: Catarino Ramírez MD at 13:12 EDT , Cervical Spine CT 09/29/22 09:52 IMPRESSION: Multilevel degenerative changes, as described above. Electronically Signed: Catarino Ramírez MD at 10:51 EDT , Lower Extremity CT 09/29/22 11:56 IMPRESSION: 1. Complete oblique fracture through the right femoral neck with mild displacement. Electronically Signed: Eric Beasley MD at 12:56 EDT , Treatment and Re-Evaluation Narrative: CBC and chemistry studies are unremarkable. Pelvis x-ray per my interpretation reveals shortening of the right femoral neck compared to left with concern for fracture. Right femur x-ray reveals similar. Radiology interpretation is reviewed and feels that there are findings suspicious for a right femoral neck fracture. Patient is then sent for CT scan of the pelvis/right hip. There is a complete oblique fracture through the right femoral neck with mild displacement. Patient has received fentanyl as well as morphine for pain. She continues to have muscle spasm. She will be given a small dose of Norflex. I will discuss case with orthopedics as well as hospitalist for admission. Patient's family members do comment that she has been having diarrhea since August. She has had C. difficile in the past. Although she does not have significantly elevated white count, I will order stool studies. Discharge Plan Dx/Rx/DC Orders Clinical Impression: Fracture of hip, right, closed, Fall, Closed head injury Disposition Disposition: Acute Care Hospital [facility]
--- NOTE | 2022-09-29 13:17 | ED.RN ---
THIS RN RECEIVES PHONE CALL FROM PT DAUGHTER, REPORTS CONCERN FOR PT BECAUSE SHE IS ON XELGANZ. REPORTS PT WILL NEED PRE-OPERATIVE ANTIBIOTICS.
[2022-09-29] MEDS: Orphenadrine 60 MG/2 ML Ampul 30 MG IM (13:26)
[2022-09-29 13:50] LABS: Magnesium 2.3 mg/dL (1.6-2.6); Phosphorus 1.9 mg/dL (2.5-4.9)
--- NOTE | 2022-09-29 13:51 | HP.PCM.HOS_ITS ---
HPI - General General Date of Admission: 09/29/22 Date of Service: 09/29/22 Chief Complaint: Fall after tripping over this morning stroke her right hip and had. No LOC. HPI Narrative ESTEBAN VALERIO, is a 82 F came to ED with her daughter after she tripped over in the morning and fell on the right side and hit her right hip and forehead. Peter clinton herself does not remember exact mechanism and circumstances of fall but is stuck on some thing and fell down on the right side. No LOC. Mild bruise on her right forehead. She also has diarrhea ongoing since August this year. As per the daughter she did not seek any medical attention or testing done for that. She has history of C. difficile about 3 to 4 years ago. No fever or chills. Denies abdominal pain or cramps. Denies outside unusual food, trips or camp. Patient has history of rheumatoid arthritis and she is on methotrexate, Xeljanz, folic acid and Celebrex by her air hole driller Dr. Church. Bilateral hand, wrist and small joints deformity. She complains of intermittent pain and spasm starting from hip area and spreads downwards. Pain about 7-8/10 intensity, intermittent. No acute swelling of her right hip. Patient had right hip x-ray which was not very clear therefore RLE CT scan which shows complete oblique fracture through right femoral neck with mild displacement. [facility] Medical History Arthritis Back pain Cardiology follow-up encounter Easy bruising Gastric reflux History of hiatal hernia History of irregular heartbeat History of pain when walking History of steroid therapy Injury of back MVP (mitral valve prolapse) Normal stress echocardiogram Post-menopausal Premature atrial contraction Premature ventricular contraction Rheumatoid arthritis Sleep apnea Supraventricular tachycardia Wears contact lenses Wears glasses Home Medications methotrexate sodium (PF) 25 mg/mL injection solution 75 mg IM TH 11/29/13 [History Last Taken 09/16/21] prednisone 5 mg tablet 5 mg PO DAILY 11/29/13 [History Last Taken 07/02/21] alendronate 70 mg tablet (Fosamax) 70 mg PO QWEEK 11/10/18 [History Last Taken 09/24/22] folic acid 400 mcg tablet 0.8 mg PO DAILY@0800 11/10/18 [History Last Taken Unknown] celecoxib 200 mg capsule 200 mg PO DAILY PRN Pain 12/12/20 [History Last Taken Unknown] multivitamin 3 tab PO DAILY 06/25/21 [History Last Taken Unknown] tofacitinib 5 mg tablet (Xeljanz) 5 mg PO BID 06/25/21 [History Last Taken 09/16/21] buprenorphine 10 mcg/hour weekly transdermal patch (Butrans) 5 mcg topical QWEEK 09/16/21 [History Last Taken 09/27/22] tramadol 50 mg tablet 50 mg PO BID 12/18/21 [History Last Taken Unknown] lansoprazole 30 mg capsule,delayed release (Prevacid) 30 mg PO DAILY 4 weeks #28 caps 05/11/22 [Rx Last Taken Unknown] ascorbic acid (vitamin C) 500 mg capsule 500 mg PO DAILY 05/27/22 [History Last Taken Unknown] cholecalciferol (vitamin D3) 50 mcg (2,000 unit) capsule 50 mcg PO DAILY 05/27/22 [History Last Taken Unknown] Allergy/AdvReac Type Severity Reaction Status Date / Time amoxicillin trihydrate Allergy Rash Verified 09/29/22 09:13 [From Trimox] Family History Father CAD (coronary artery disease) CVA (cerebral vascular accident) Hypertension Heart disease Brother CAD (coronary artery disease) Mother Osteoporosis Surgical History H/O total knee replacement History of cardiac radiofrequency ablation (~2000) History of incisional hernia repair History of removal of ovarian cyst Hx of cataract surgery Hx of hernia repair Hx of kyphoplasty Social History Smoking Status: Never smoker alcohol intake: never substance use type: does not use what type of physical activity do you participate in: none ROS ROS Narrative Constitutional: Reports fatigue and weakness. No fever. HEENT: Reports systems reviewed and no addt'l complaints, except as documented Respiratory/Chest: No acute shortness of breath or respiratory distress or w heezing. CVS: History of SVT and mitral valve prolapse status post ablation in 2000. No chest pain tightness or pressure. No palpitation. Gastrointestinal: Denies coffee ground emesis, hematemesis or vomiting. Diarrhea as described in HPI Genitourinary: Drinks less water usually. Urine output usually dark-colored illness amount due to low intake. Denies burning urination or new urinary tract symptoms Musculoskeletal: As described in HPI. History of RA Neurologic: Denies seizure-like symptoms. Denies strokelike symptoms. skin: No ulcer. No rash Endocrinology: Reports systems reviewed and no addt'l complaints, except as documented Hematologic/Lymphatic: Reports systems reviewed and no addt'l complaints, except as documented Rest 14 ROS are negative except as mentioned in HPI Vital Signs Vital Signs Vital Signs: 09/29/22 09:10 09/29/22 09:10 09/29/22 10:57 Temperature 98.1 F Temperature Source Oral Pulse Rate 67 66 Respiratory Rate 16 13 Respiratory Effort Normal Non-Labored Respiratory Depth Normal Respiratory Pattern Normal Blood Pressure 157/70 H 134/88 H Blood Pressure Mean 99 103 Pulse Ox 95 92 Oxygen Delivery Method Room Air Room Air Room Air 09/29/22 13:00 09/29/22 13:21 Temperature 98.1 F Temperature Source Oral Pulse Rate 78 79 Respiratory Rate 17 13 Respiratory Effort Respiratory Depth Respiratory Pattern Blood Pressure 137/80 H 126/69 H Blood Pressure Mean 99 88 Pulse Ox 91 92 Oxygen Delivery Method Room Air Room Air Weight Weight: 117 lb 15.157 oz Body Mass Index (BMI) 21.5 Physical Exam Narrative General: Alert, Oriented x3, Cooperative HEENT: Atraumatic, PERRLA, EOMI, Normocephalic Oral: Oral mucosa very dry. No Gingival or Mucosal Lesions/ Ulcerations Neck: Supple, No JVD, Negative Carotid Bruits Lungs: Air entry diminished in bilateral lung bases. No crepitation/rhonchi Cardiovascular: Regular rate, Regular Rhythm, Normal S1, Normal S2, soft LLSB systolic murmur grade 2/6 Abdomen: Bowel Sounds Present, Soft, Non Tender, Non-Distended : No renal angle tenderness. No suprapubic tenderness. Extremities: No edema, Capillary Refill Less than 3 Seconds Skin: No rashes, No breakdown Musculoskeletal: Acute tenderness present over right hip and right thigh joint. No acute swelling. ROM not attempted due to fracture and pain. Neurological: Cranial nerves II-XII grossly intact, DTR 2+/4 and Symmetrical, Neuro grossly intact Psych/Mental Status: Normal Affect, Appropriate. Results Lab / Micro Data Result Diagrams: 09/29/22 09:40 09/29/22 09:40 Labs: Laboratory Results - last 24 hr 09/29/22 09:40: WBC 10.5, RBC 4.58, Hgb 14.4, Hct 44.5, MCV 97.2, MCH 31.4, MCHC 32.4, RDW Std Deviation 53.1 H, RDW Coeff of Eusebio 14.9 H, Plt Count 338, MPV 11.6, Immature Gran % (Auto) 0.500, Neut % (Auto) 80.5 H, Lymph % (Auto) 7.8 L, [place] % (Auto) 9.6, Eos % (Auto) 1.0, Baso % (Auto) 0.6, Absolute Neuts (auto) 8.5 H, Absolute Lymphs (auto) 0.82 L, Nucleated RBC % 0 09/29/22 09:40: Sodium 143, Potassium 3.5, Chloride 108 H, Carbon Dioxide 29.0, Anion Gap 6, BUN 13, Creatinine 0.67, Estim Creat Clear Calc 33.12, Est GFR (MDRD) Af Amer 107, Est GFR (MDRD) Non-Af 89, BUN/Creatinine Ratio 19.3, Glucose 91, Calcium 9.4 09/29/22 09:40: Phosphorus 1.9 L, Magnesium 2.[address] 09/29/22 09:51 IMPRESSION: Chronic involutional changes of the brain, no acute hemorrhage. Electronically Signed: Catarino Ramírez MD at 10:48 EDT , Femur X-Ray 09/29/22 09:51 IMPRESSION: Findings concerning for a femoral neck fracture. Electronically Signed: Neeta Poole MD at 11:11 EDT , Pelvis X-Ray 09/29/22 09:51 IMPRESSION: Osteopenia with age consistent bilateral hip and SI joint arthrosis, no demonstrated fracture or suspicious osseous lesion Electronically Signed: Catarino Ramírez MD at 10:53 EDT , ADDENDUM: 09/29/22 1319 IMPRESSION: There is a slightly impacted subcapital femoral neck fracture the right femur. This is better seen and discussed on the dedicated study of the right femur. Electronically Signed: Catarino Ramírez MD at 13:12 EDT , Cervical Spine CT 09/29/22 09:52 IMPRESSION: Multilevel degenerative changes, as described above. Electronically Signed: Catarino Ramírez MD at 10:51 EDT , Lower Extremity CT 09/29/22 11:56 IMPRESSION: 1. Complete oblique fracture through the right femoral neck with mild displacement. Electronically Signed: Eric Beasley MD at 12:56 EDT , Assessment & Plan Assessment/Plan (1) Fracture of hip, right, closed: (2) Fall: PLAN: Plan This 82-year-old female is being admitted for right hip/RLE pain and debility after fall resulting into right femoral neck fracture. 1. Acute debility due to right complete optic femoral neck fracture with mild displacement: Patient is being admitted on MedSur floor. IV fluid Ringer lactate 100 mL/h for 2 L. Pain control and muscle relaxant with a small dose NSAID ibuprofen, tizanidine and opioids. Orthopedic surgeon Dr. Knutson is consulted. Perioperative risk assessment: As per the patient's daughter, after the of her about 20 years ago she usually stays at home but she can walk independently at home. Overall seems moderate functional capacity, >4 METS. She has rheumatoid arthritis and on Xeljanz, immunomodulator, Janus kinase inhibitor, methotrexate and folic acid. NSQIP surgical risk was calculated and serious complication, any complication pneumonia cardiac complication surgical site infection, UTI, VTE renal failure, readmission is below average. 2. Severe dehydration with chronic diarrhea: Patient having diarrhea for more than a month since beginning of August. No work-up has been done as an outpatient. Stool for C. difficile and Giardia antigen ordered. Enteric bacteriology panel, stool for occult blood and lactoferrin also ordered. She of C. difficile 3 to 4 years ago. Continue IV fluid as mentioned above. Patient does not have leukocytosis, fever therefore will wait for the test to come. Stool for Calmoseptine can be ordered but it takes 1 week time therefore may be appropriate for outpatient work-up. 3. Cardiac conditions: Patient has history of mitral valve prolapse, SVT status post ablation. Patient used to follow Dr. Nasir tomas February 2021. History of SVT status post radiofrequency ablation in 2000, mitral valve prolapse.Her cholesterols are in normal range LDL 112, HDL 83. Her last echo in February 2014 reported as EF 65%, LA mildly enlarged. Acute focal mitral valve prolapse trivial MR. Mild MR. RVSP 26 mmHg. Dobutamine stress echo was negative for acute ischemia last EKG in September 2021 sinus rhythm with PAC low voltage QRS LAFB. 4. 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 Yoan aguilera. On medications as mentioned above. Hold Xeljanz but continue folic acid and methotrexate. 5. VTE prophylaxis high risk: Heparin 5000 subcutaneous 3 times daily. Hold the morning dose before surgery Living will/advanced directive/end of life care: Patient does have living will or advanced directive. Patient's daughter who is nurses first POA and daughter present in ED his second POA. After discussion of benefits/risks procedures involved with full code, DNR CC arrest and DNR CC, the patient and her daughter opted for full code. Patient does want artificial life support including intubation, tube feed, ventilator and/chest compression, central venous catheter, vasopressor and DC shock if needed Total time spent in [id number] encounter in discussion of advanced directive 17 minutes. Laboratory Results 09/29/22 09:40: WBC 10.5, RBC 4.58, Hgb 14.4, Hct 44.5, MCV 97.2, MCH 31.4, MCHC 32.4, RDW Std Deviation 53.1 H, RDW Coeff of Eusebio 14.9 H, Plt Count 338, MPV 11.6, Immature Gran % (Auto) 0.500, Neut % (Auto) 80.5 H, Lymph % (Auto) 7.8 L, [place] % (Auto) 9.6, Eos % (Auto) 1.0, Baso % (Auto) 0.6, Absolute Neuts (auto) 8 .5 H, Absolute Lymphs (auto) 0.82 L, Nucleated RBC % 0 09/29/22 09:40: Sodium 143, Potassium 3.5, Chloride 108 H, Carbon Dioxide 29.0, Anion Gap 6, BUN 13, Creatinine 0.67, Estim Creat Clear Calc 33.12, Est GFR (M DRD) Af Amer 107, Est GFR (MDRD) Non-Af 89, BUN/Creatinine Ratio 19.3, Glucose 91, Calcium 9.4 09/29/22 09:40: Phosphorus 1.9 L, Magnesium 2.3 Clinical Impression(s) from Imaging Studies Brain CT 09/29/22 09:51 IMPRESSION: Chronic involutional changes of the brain, no acute hemorrhage. Femur X-Ray 09/29/22 09:51 IMPRESSION: Findings concerning for a femoral neck fracture. Cervical Spine CT 09/29/22 09:52 IMPRESSION: Multilevel degenerative changes, as described above. Electronically Signed: Catarino Ramírez MD at 10:51 EDT Reading Location ID and State: [facility] / [place] , Service support , Lower Extremity CT 09/29/22 11:56 IMPRESSION: 1. Complete oblique fracture through the right femoral neck with mild displacement. Electronically Signed: Charges/Coding Visit Charges Inpatient E&M: 16055 Init Hosp L3 Procedures Hospitalists Procedures: 70488 Advncd Care Plan 30 Min
[2022-09-29] MEDS: Lactated Ringers 1,000 ML 100 ML IV ×2 (13:59→21:39)
[2022-09-29] MEDS: Celecoxib 200 MG Capsule PO (16:43)
[2022-09-29] MEDS: oxyCODONE 5 MG Tablet PO ×2 (16:43→21:34)
[2022-09-29] MEDS: tiZANidine HCl 2 MG Tablet PO (16:43)
[2022-09-29] MEDS: Heparin Injection (Vial) 5,000 UNIT/ML VIAL 5000 UNIT SC ×2 (16:43→21:35)
[2022-09-30] VITALS (10 sets, daily range): BP systolic 100–139; BP diastolic 57–79; PULSE 82–95; RESP 12–16; TEMP 36.4–37.5; O2SAT 91–99; BMI 21.7; BMI 20.4
--- NOTE | 2022-09-30 01:22 | EKG12_ITS ---
Test Reason : PRE-OP Blood Pressure : / mmHG Vent. Rate : 084 BPM Atrial Rate : 084 BPM P-R Int : 128 ms QRS Dur : 076 ms QT Int : 336 ms P-R-T Axes : 066 -46 004 degrees QTc Int : 397 ms Normal sinus rhythm Left axis deviation Nonspecific T wave abnormality Abnormal ECG When compared with ECG of 30-SEP-2021 12:55, Premature atrial complexes are no longer Present Confirmed by QAMAR VALERIO, MERI ([id number]), news copy editor MARIA TERESA JACOBS ([id number]) on 09/30/2022 11:23:55 AM Referred By: AZIZA Confirmed By:MERI FOOTE MD
[2022-09-30] MEDS: oxyCODONE 5 MG Tablet PO ×2 (05:28→22:17)
[2022-09-30] MEDS: tiZANidine HCl 2 MG Tablet PO (05:28)
[2022-09-30 06:08] LABS: Absolute Lymphocyte Count 0.35 X10^3/uL (0.83-4.51); Absolute Neutrophil Count 9.4 X10^3/uL (2.0-7.7); Basophil# 0.04 X10^3/uL; Basophil% 0.3 % (0-1); Eosinophil# 0.11 X10^3/uL; Eosinophils% 0.9 % (0-5); Hematocrit 39.8 % (37-47); Hemoglobin 12.5 g/dL (12.0-15.0); Lymphocyte # 0.35 X10^3/ul (0.83-4.51); Mean Corp Hgb Conc 31.4 g/dL (32-36); Mean Corpuscular Hgb 30.6 pg (27.0-32.0); Mean Corpuscular Volume 97.3 fL (81-99); Mean Platelet Vol. 11.6 fl (6.2-12.0); Monocyte# 1.71 X10^3/uL; Monocyte% 14.6 % (0-10); NRBC Flagged by Analyzer 0 % (0-5); Neutrophil # 9.41 X10^3/uL (2.7-7.7); Neutrophil % 80.5 % (47-70); POSITIVE DIFFERENTIAL YES; Platelet Count 249 K/mm3 (150-450); RBC Distribution Width CV 14.8 % (11.6-14.6); RBC Distribution Width SD 52.7 fl (35.1-43.9); Red Blood Count 4.09 M/mm3 (4.2-5.4); White Blood Count 11.7 K/mm3 (4.4-11.0)
[2022-09-30 06:10] LABS: Differential Indicated SCAN CRITERIA MET
[2022-09-30 06:27] LABS: Partial Thromboplast Time 33.3 Seconds (24.1-36.2)
[2022-09-30 06:33] LABS: Differential Comment SCANNED
[2022-09-30 06:37] LABS: Anion Gap 8 (5-15); BUN 9 mg/dL (7-18); BUN/Creat Ratio 15.6 RATIO (10-20); Calcium,Total 8.5 mg/dL (8.5-10.1); Chloride 106 mmol/L (98-107); Creatinine, Serum 0.58 mg/dL (0.55-1.02); EST Glomerular Filtration Rate 106 mL/min (>60); Est Glom Filt Rate - Afr Amer 128 mL/min (>60); Estimated Creatinine Clearance 33.12 ml/min; Glucose 99 mg/dL (74-106); Potassium 3.7 mmol/L (3.5-5.1); Sodium Level 139 mmol/L (136-145)
[2022-09-30 06:54] LABS: AST(SGOT) 42 U/L (15-37); Alanine Aminotransfer ALT/SGPT 22 U/L (13-56); Albumin, Serum 2.9 g/dL (3.2-5.0); Alkaline Phosphatase 87 U/L (45-117); Bilirubin, Direct 0.39 mg/dL (0.00-0.30); Protein, Total 5.9 g/dL (6.4-8.2)
--- NOTE | 2022-09-30 07:39 | PCM.PN.HOSP ---
Reason for Visit Reason for Visit: Mechanical fall/right hip pain Subjective Subjective Mrs. Lakhani is an 82-year-old white female who presented to the emergency department on 09/29/2022 after mechanical fall. At the time she fell onto her right side and hit her right hip and forehead. She had no loss of consciousness and a mild bruise on her right forehead at presentation. She also complained of right hip pain. CT of the brain was unremarkable other than chronic involutional changes. CT of the cervical spine was unremarkable other than multilevel degenerative changes. Pelvic x-ray demonstrated osteopenia with age consistent bilateral hip SI joint arthrosis. And femoral x-ray on the right demonstrated findings concerning for femoral neck fracture. CT scan was then performed of the hip and pelvis and there was a complete oblique fracture through the right femoral neck with mild displacement. Patient also complained of ongoing diarrhea that has been problematic since August. She does have history of C. difficile however is reported that she tested negative for C. difficile just a few days prior. Stool studies were ordered on upon presentation however not yet been collected as patient has not yet had a bowel movement. Orthopedic surgery has been consulted and we are waiting input. I do anticipate that she will need to go to the OR for surgery on her right hip. Patient states her pain is currently well controlled. She was told she will go to the OR later this afternoon. It sounds like the plan is for a total hip arthroplasty. No diarrhea since admission. Patient does complain of some urinary frequency. I did discuss that we would order a UA for this and treat for UTI if UA is suggestive of urinary tract infection. Objective Data Objective Data Vital Signs: Vital Signs Temp Pulse Resp BP Pulse Ox O2 Del Method O2 Flow Rate 98.6 F 69 14 119/68 96 Nasal Cannula 2 09/29/22 22:00 09/29/22 22:00 09/29/22 22:00 09/29/22 22:00 09/29/22 22:00 09/29/22 22:00 09/29/22 22:00 Oxygen Flow Rate (L/min) 2 Oxygen Delivery Method Nasal Cannula Weight: 53.4 kg Body Mass Index (BMI) 21.7 Intake & Output: Intake and Output for Last 24 Hours 09/28/22 09/29/22 09/30/22 23:59 23:59 23:59 Intake Total 866.67 / 866.67 Balance 866.67 / 866.67 Lab / Micro Data Result Diagrams: 09/30/22 05:25 09/30/22 05:25 Labs: Laboratory Results - last 24 hr 09/29/22 09:40: WBC 10.5, RBC 4.58, Hgb 14.4, Hct 44.5, MCV 97.2, MCH 31.4, MCHC 32.4, RDW Std Deviation 53.1 H, RDW Coeff of Eusebio 14.9 H, Plt Count 338, MPV 11.6, Immature Gran % (Auto) 0.500, Neut % (Auto) 80.5 H, Lymph % (Auto) 7.8 L, [place] % (Auto) 9.6, Eos % (Auto) 1.0, Baso % (Auto) 0.6, Absolute Neuts (auto) 8.5 H, Absolute Lymphs (auto) 0.82 L, Nucleated RBC % 0 09/29/22 09:40: Sodium 143, Potassium 3.5, Chloride 108 H, Carbon Dioxide 29.0, Anion Gap 6, BUN 13, Creatinine 0.67, Estim Creat Clear Calc 33.12, Est GFR (MDRD) Af Amer 107, Est GFR (MDRD) Non-Af 89, BUN/Creatinine Ratio 19.3, Glucose 91, Calcium 9.4 09/29/22 09:40: Phosphorus 1.9 L, Magnesium 2.3 09/30/22 05:25: WBC 11.7 H, RBC 4.09 L, Hgb 12.5, Hct 39.8, MCV 97.3, MCH 30.6, MCHC 31.4 L, RDW Std Deviation 52.7 H, RDW Coeff of Eusebio 14.8 H, Plt Count 249, MPV 11.6, Immature Gran % (Auto) 0.700, Neut % (Auto) 80.5 H, Lymph % (Auto) 3.0 L, [place] % (Auto) 14.6 H, Eos % (Auto) 0.9, Baso % (Auto) 0.3, Absolute Neuts (auto) 9.4 H, Absolute Lymphs (auto) 0.35 L, Nucleated RBC % 0, Differential Comment SCANNED, Diff Path Review September09/30/22 05:25: Sodium 139, Potassium 3.7, Chloride 106, Carbon Dioxide 25.0, Anion Gap 8, BUN 9, Creatinine 0.58, Estim Creat Clear Calc 33.12, Est GFR (MDRD) Af Amer 128, Est GFR (MDRD) Non-Af 106, BUN/Creatinine Ratio 15.6, Glucose 99, Calcium 8.5 09/30/22 05:25: APTT 33.3 09/30/22 05:25: Total Bilirubin 1.30 H, Direct Bilirubin 0.39 H, AST 42 H, ALT 22, Alkaline Phosphatase 87, Total Protein 5.9 L, Albumin 2.9 L, Globulin 3.0 09/30/22 05:25: Blood Type O POSITIVE, Antibody Screen NEGATIVE Radiography Diagnostic Testing: Radiology Impression Brain CT 09/29/22 09:51 IMPRESSION: Chronic involutional changes of the brain, no acute hemorrhage. Electronically Signed: Catarino Ramírez MD at 10:48 EDT , Femur X-Ray 09/29/22 09:51 IMPRESSION: Findings concerning for a femoral neck fracture. Electronically Signed: Neeta Poole MD at 11:11 EDT , Pelvis X-Ray 09/29/22 09:51 IMPRESSION: Osteopenia with age consistent bilateral hip and SI joint arthrosis, no demonstrated fracture or suspicious osseous lesion Electronically Signed: Catarino Ramírez MD at 10:53 EDT , ADDENDUM: 09/29/22 1319 IMPRESSION: There is a slightly impacted subcapital femoral neck fracture the right femur. This is better seen and discussed on the dedicated study of the right femur. Electronically Signed: Catarino Ramírez MD at 13:12 EDT , Cervical Spine CT 09/29/22 09:52 IMPRESSION: Multilevel degenerative changes, as described above. Electronically Signed: Catarino Ramírez MD at 10:51 EDT , Lower Extremity CT 09/29/22 11:56 IMPRESSION: 1. Complete oblique fracture through the right femoral neck with mild displacement. Electronically Signed: Eric Beasley MD at 12:56 EDT , Physical Exam Const alert, oriented x3, no apparent distress and average body habitus Constitutional Narrative: Thin, elderly white female lying in bed, family at bedside, patient appears comfortable and nontoxic HEENT moist oral mucous membranes HEENT Narrative: Right frontotemporal ecchymotic area from fall, mild tenderness but no lacerations, dentition is poor, Mallampati is 2, no thrush Head and Scalp: normocephalic Resp normal respiratory effort, no retractions, no use of accessory muscles and clear to auscultation bilaterally Auscultation: Negative for rales, rhonchi or wheezes Cardio regular rate, regular rhythm, S1 normal heart sound, S2 normal heart sound, no murmurs, no rub, no gallops and no clicks GI normal to inspection, nondistended, normoactive bowel sounds, soft to palpation and non-tender Extremity no clubbing, cyanosis or edema Extremity Narrative: Right lower extremity is shortened and externally rotated Neuro oriented x3, no focal motor deficits and no sensory deficits noted Neuro Narrative: Otherwise generallyDecreased movement right lower extremity due to fracture and weakness proximal greater than distal in all other extremities Speech: speech normal Psych affect normal Psych Narrative: Pleasant, appropriately interactive Assessment & Plan Assessment/Plan (1) Fracture of hip, right, closed: (2) Fall: (3) Closed head injury: (4) Diarrhea: (5) Leukocytosis: (6) Hypophosphatemia: (7) Hyperbilirubinemia: (8) Dysuria: PLAN: Plan Right femoral neck fracture secondary to mechanical fall -Awaiting orthopedic input -Anticipate surgical repair -Nonweightbearing for now -PT/OT consultation after surgery -We will schedule Tylenol 1000 every 8 -Continue Norflex as ordered -Continue oxycodone as ordered -Start stool softeners as needed with history of diarrhea -Vitamin D level Diarrhea -No stool since admitted -Enteric panel and C. difficile have been ordered -Giardia/ova parasites pending -Stool lactoferrin pending -Hemoccult pending -Monitor clinically -At the very least we will make referral to GI at discharge Dysuria -Check UA -If UA consistent with infection we will obtain culture and start antibiotics Hypophosphatemia -Repeat Phos level in a.m. -Unclear if replacement was initiated on presentation Hyperbilirubinemia -This appears to be new -Repeat in a.m. for trend Closed head injury -CT negative for any acute findings -No laceration -Monitor clinically Falls -We will likely require placement at discharge -PT/OT consulted History of osteoporosis -Continue alendronate -Continue vitamin D as ordered -Vitamin D level is pending with fracture RA -Continue methotrexate at discharge -Hold Xeljanz--> we will hold at least for a week and discuss further with orthopedic surgery prior to discharge -Continue prednisone as ordered -We will hold Ultram and utilize oxycodone for now GERD -Continue PPI DVT prophylaxis -Heparin 5000 units 3 times daily CODE STATUS Full code Charges/Coding Visit Charges Inpatient E&M: 62349 Subs Hosp L2
--- NOTE | 2022-09-30 08:00 | CON.PCM.OR_ITS ---
HPI Consult Data Date of Consult: 09/30/22 HPI Narrative HPI Narrative: ESTEBAN VALERIO, is a 82 F who presents after a mechanical fall 09/29/2022 at home where she resides with her daughter. Patient is a household ambulator without assistive device. Patient states she tripped and fell, hit her head on the refrigerator door and then landed on the floor on her right hip. She was unable to bear weight following the injury. She denies any loss of consciousness, neck pain, and new numbness or tingling. Patient was brought to [facility] emergency department where x-rays and subsequent CT scan revealed a displaced right femoral neck fracture. Patient was admitted under the service of the hospitalist. Orthopedics was consulted. At time my examination, patient denies any other new pain. Patient reports polyarticular pain secondary to history of rheumatoid arthritis. Patient follows with a fiberglass finisher. She denies antecedent right hip or groin pain. She reports history of low back pain for which she receives injections from her pain management provider. [facility] Medical History (Updated 09/30/22 @ 07:[address] Josephine Watson, ) Arthritis Back pain Cardiology follow-up encounter Easy bruising Gastric reflux History of hiatal hernia History of irregular heartbeat History of pain when walking History of steroid therapy Injury of back Irregular heart beat Kidney stones MVP (mitral valve prolapse) Normal stress echocardiogram Post-menopausal Premature atrial contraction Premature ventricular contraction Rheumatoid arthritis Sleep apnea Supraventricular tachycardia Wears contact lenses Wears glasses Home Medications methotrexate sodium (PF) 25 mg/mL injection solution 75 mg IM TH 11/29/13 [History Last Taken 09/16/21] prednisone 5 mg tablet 5 mg PO DAILY 11/29/13 [History Last Taken 07/02/21] alendronate 70 mg tablet (Fosamax) 70 mg PO QWEEK 11/10/18 [History Last Taken 09/24/22] folic acid 400 mcg tablet 0.8 mg PO DAILY@0800 11/10/18 [History Last Taken Unknown] celecoxib 200 mg capsule 200 mg PO DAILY PRN Pain 12/12/20 [History Last Taken Unknown] multivitamin 3 tab PO DAILY 06/25/21 [History Last Taken Unknown] tofacitinib 5 mg tablet (Xeljanz) 5 mg PO BID 06/25/21 [History Last Taken 09/16/21] buprenorphine 10 mcg/hour weekly transdermal patch (Butrans) 5 mcg topical QWEEK 09/16/21 [History Last Taken 09/27/22] tramadol 50 mg tablet 50 mg PO BID 12/18/21 [History Last Taken Unknown] lansoprazole 30 mg capsule,delayed release (Prevacid) 30 mg PO DAILY 4 weeks #28 caps 05/11/22 [Rx Last Taken Unknown] ascorbic acid (vitamin C) 500 mg capsule 500 mg PO DAILY 05/27/22 [History Last Taken Unknown] cholecalciferol (vitamin D3) 50 mcg (2,000 unit) capsule 50 mcg PO DAILY 05/27/22 [History Last Taken Unknown] Allergy/AdvReac Type Severity Reaction Status Date / Time amoxicillin trihydrate Allergy Intermediate Rash Verified 09/29/22 14:48 [From Trimox] Penicillins Allergy Swelling Verified 09/29/22 14:49 Family History Father CAD (coronary artery disease) CVA (cerebral vascular accident) Hypertension Heart disease Brother CAD (coronary artery disease) Mother Osteoporosis Surgical History H/O total knee replacement History of cardiac radiofrequency ablation (~2000) History of incisional hernia repair History of removal of ovarian cyst Hx of cataract surgery Hx of hernia repair Hx of kyphoplasty Social History Smoking Status: Never smoker alcohol intake: never substance use type: does not use what type of physical activity do you participate in: none ROS ROS Narrative 12 point review systems obtained, negative as otherwise noted in HPI. Vital Signs Vital Signs Vital Signs: 09/29/22 09:10 09/29/22 09:10 09/29/22 10:57 Temperature 98.1 F Temperature Source Oral Pulse Rate 67 66 Pulse Strength Respiratory Rate 16 13 Respiratory Effort Normal Non-Labored Respiratory Depth Normal Respiratory Pattern Normal Blood Pressure 157/70 H 134/88 H Blood Pressure Mean 99 103 Blood Pressure Source Blood Pressure Position Blood Pressure Location Pulse Ox 95 92 Oxygen Delivery Method Room Air Room Air Room Air Oxygen Flow Rate (L/min) 09/29/22 13:00 09/29/22 13:21 09/29/22 14:35 Temperature 98.1 F 98.4 F Temperature Source Oral Oral Pulse Rate 78 79 81 Pulse Strength Respiratory Rate 17 13 16 Respiratory Effort Respiratory Depth Respiratory Pattern Blood Pressure 137/80 H 126/69 H 153/68 H Blood Pressure Mean 99 88 96 Blood Pressure Source Monitor Blood Pressure Position Supine Blood Pressure Location Right Arm Pulse Ox 91 92 95 Oxygen Delivery Method Room Air Room Air Room Air Oxygen Flow Rate (L/min) 3 09/29/22 14:19 09/29/22 13:50 09/29/22 18:15 Temperature 100.0 F H Temperature Source Oral Pulse Rate 80 Pulse Strength Respiratory Rate 18 Respiratory Effort Respiratory Depth Respiratory Pattern Blood Pressure 136/7 H Blood Pressure Mean 50 Blood Pressure Source Monitor Blood Pressure Position Semi-Fowlers Blood Pressure Location Right Arm Pulse Ox 95 98 Oxygen Delivery Method Nasal Cannula Nasal Cannula Nasal Cannula Oxygen Flow Rate (L/min) 2 2 2 09/29/22 21:29 09/29/22 22:00 09/29/22 22:00 Temperature 98.6 F Temperature Source Oral Pulse Rate 69 Pulse Strength Normal (2+) Respiratory Rate 14 Respiratory Effort Normal Respiratory Depth Normal Respiratory Pattern Normal Blood Pressure 119/68 Blood Pressure Mean 85 Blood Pressure Source Monitor Blood Pressure Position Semi-Fowlers Blood Pressure Location Left Arm Pulse Ox 96 Oxygen Delivery Method Nasal Cannula Nasal Cannula Oxygen Flow Rate (L/min) 2 2 09/29/22 22:00 09/30/22 07:54 09/30/22 07:40 Temperature 98.6 F 98.0 F Temperature Source Oral Oral Pulse Rate 69 83 Pulse Strength Respiratory Rate 14 16 Respiratory Effort Respiratory Depth Respiratory Pattern Blood Pressure 119/68 139/79 H Blood Pressure Mean 85 99 Blood Pressure Source Monitor Monitor Blood Pressure Position Semi-Fowlers Semi-Fowlers Blood Pressure Location Left Arm Right Arm Pulse Ox 96 96 96 Oxygen Delivery Method Nasal Cannula Nasal Cannula Room Air Oxygen Flow Rate (L/min) 2 2 Weight Weight: 117 lb 11.629 oz Body Mass Index (BMI) 21.7 Physical Exam Narrative General -A&Ox3, NAD, appears stated age. Vital signs stable, afebrile. Respiratory -normal work of breathing, no intercostal retractions. CV -pulses regular, brisk capillary refill ?4 limbs. Abdomen-soft, nontender, nondistended. No guarding, rigidity, rebound tenderness. Musculoskeletal/neurologic -full range of motion nontender throughout bilateral upper extremities, left lower extremity with full sensation and strength in all dermatomes and myotomes. No midline cervical tenderness. Right lower extremity-no obvious deformity. Pain with logroll of the left lower extremity. Nontender throughout the right knee, femoral shaft, tibial shaft and left foot/ankle. Brisk capillary refill. Sensation intact light touch L3-S1 dermatomes. DF, PF, EHL intact. DP, PT 2+. Pelvis is stable, nontender. Skin is intact without lacerations, abrasions. No ecchymosis noted. Lab / Micro Data Result Diagrams: 09/30/22 05:25 09/30/22 05:25 Labs: Laboratory Results - last 24 hr 09/29/22 09:40: WBC 10.5, RBC 4.58, Hgb 14.4, Hct 44.5, MCV 97.2, MCH 31.4, MCHC 32.4, RDW Std Deviation 53.1 H, RDW Coeff of Eusebio 14.9 H, Plt Count 338, MPV 11.6, Immature Gran % (Auto) 0.500, Neut % (Auto) 80.5 H, Lymph % (Auto) 7.8 L, [place] % (Auto) 9.6, Eos % (Auto) 1.0, Baso % (Auto) 0.6, Absolute Neuts (auto) 8.5 H, Absolute Lymphs (auto) 0.82 L, Nucleated RBC % 0 09/29/22 09:40: Sodium 143, Potassium 3.5, Chloride 108 H, Carbon Dioxide 29.0, Anion Gap 6, BUN 13, Creatinine 0.67, Estim Creat Clear Calc 33.12, Est GFR (MDRD) Af Amer 107, Est GFR (MDRD) Non-Af 89, BUN/Creatinine Ratio 19.3, Glucose 91, Calcium 9.4 09/29/22 09:40: Phosphorus 1.9 L, Magnesium 2.3 09/30/22 05:25: WBC 11.7 H, RBC 4.09 L, Hgb 12.5, Hct 39.8, MCV 97.3, MCH 30.6, MCHC 31.4 L, RDW Std Deviation 52.7 H, RDW Coeff of Eusebio 14.8 H, Plt Count 249, MPV 11.6, Immature Gran % (Auto) 0.700, Neut % (Auto) 80.5 H, Lymph % (Auto) 3.0 L, [place] % (Auto) 14.6 H, Eos % (Auto) 0.9, Baso % (Auto) 0.3, Absolute Neuts (auto) 9.4 H, Absolute Lymphs (auto) 0.35 L, Nucleated RBC % 0, Differential Comment SCANNED, Diff Path Review September09/30/22 05:25: Sodium 139, Potassium 3.7, Chloride 106, Carbon Dioxide 25.0, Anion Gap 8, BUN 9, Creatinine 0.58, Estim Creat Clear Calc 33.12, Est GFR (MDRD) Af Amer 128, Est GFR (MDRD) Non-Af 106, BUN/Creatinine Ratio 15.6, Glucose 99, Calcium 8.5 09/30/22 05:25: APTT 33.3 09/30/22 05:25: Total Bilirubin 1.30 H, Direct Bilirubin 0.39 H, AST 42 H, ALT 22, Alkaline Phosphatase 87, Total Protein 5.9 L, Albumin 2.9 L, Globulin 3.0 09/30/22 05:25: Blood Type O POSITIVE, Antibody Screen NEGATIVE Radiology Impression Brain CT 09/29/22 09:51 IMPRESSION: Chronic involutional changes of the brain, no acute hemorrhage. Electronically Signed: Catarino Ramírez MD at 10:48 EDT , Femur X-Ray 09/29/22 09:51 IMPRESSION: Findings concerning for a femoral neck fracture. Electronically Signed: Neeta Poole MD at 11:11 EDT , Pelvis X-Ray 09/29/22 09:51 IMPRESSION: Osteopenia with age consistent bilateral hip and SI joint arthrosis, no demonstrated fracture or suspicious osseous lesion Electronically Signed: Catarino Ramírez MD at 10:53 EDT , ADDENDUM: 09/29/22 1319 IMPRESSION: There is a slightly impacted subcapital femoral neck fracture the right femur. This is better seen and discussed on the dedicated study of the right femur. Electronically Signed: Catarino Ramírez MD at 13:12 EDT , Cervical Spine CT 09/29/22 09:52 IMPRESSION: Multilevel degenerative changes, as described above. Electronically Signed: Catarino Ramírez MD at 10:51 EDT , Lower Extremity CT 09/29/22 11:56 IMPRESSION: 1. Complete oblique fracture through the right femoral neck with mild displacement. Electronically Signed: Eric Beasley MD at 12:56 EDT , Assessment & Plan Assessment/Plan (1) Fracture of hip, right, closed: PLAN: Patient sustained a right displaced femoral neck fracture -Closed, neurovascularly intact -Isolated injury -Recommending surgical intervention in the form of right hip hemiarthroplasty -I discussed the procedure-its risks, benefits and alternative. Risks include but are not limited to bleeding, infection, loss of life or limb, risk of anesthesia, persistent pain or disability, need for additional surgery, instability, nonhealing wounds, failure of orthopedic hardware, neurovascular injury, DVT or PE. Patient expressed understanding these risks and wished proceed with surgery. -Maintenance IV fluids, clear liquid diet after midnight n.p.o. at 2 hours prior to surgery -Type and screen -AncTANYA henderson on-call to the OR -Bedrest, heel protectors -Plan to proceed with surgery later today when OR becomes available Thank you for this consultation.
[2022-09-30] MEDS: Morphine 2 MG/ML Syringe IV ×2 (08:33→11:12)
[2022-09-30 08:36] LABS: Vitamin D,25 Hydroxy 79.8 ng/mL
--- NOTE | 2022-09-30 10:39 | CASEMGMT ---
Discharge Planning SNF list created and sent to SW. Avani Edwards
--- NOTE | 2022-09-30 10:40 | CASEMGMT ---
JOSELO BENNETT Assessment: Face to Face with pt for initial transition planning/care coordination assessment. RN SABRINA introduced self and role at [facility], pt voices understanding and consents to assessment. Pt is A/O x4 and answers all questions appropriately at this time. Pt dtr present in room and another dtr and grandson came in mid assessment. Pt agreeable to assessment with family in room. Care providers, pharmacy, and demographics verified/updated. Admitting Dx: R femur neck fracture PCP:Milagros Aguirre QUALITATIVE EXECUTIVE RESEARCHER Specialists:Lashaun, rheum; Cardio, WHG; Aidee, pain mgmt; Bina, INDUSTRIAL CHEMISTRY TEACHER; Lydia, GI [facility] [place] Insurance: [employer] Prescription Benefit: yes LNOK: Cassy Yen, dtr; stephanie Corear Living Arrangements: Pt lives with grandcheyanne Alexander in a single story home with 5 steps to enter with a rail. Pt reports she was I in ADL's and denies concerns at home. Pt family present state they are all able to assist pt post surgery. Transportation: Pt drives self and denies concerns with transportation. Pt dtrs are able to transport her post surgery. DME/HHC/SNF: Pt does not have any DME in the home. Pt denies hx of HHC or SNF stays. Pt states no concerns with going home at time of dc. She is aware after surgery therapy will eval and RN CM will follow. Pt states no further concerns/needs. CM to follow. Advised pt to ask CM if any further question/concerns/needs arise, voices understanding. Pt Goal: Home Plan: TBD pending surgery and therapy evals
--- NOTE | 2022-09-30 11:39 | NURSING ---
Bladder scanned for 760cc made Dr. Watson aware. UA sent.
[2022-09-30 12:52] LABS: Pathologist Review Reviewed
[2022-09-30] MEDS: Lactated Ringers 1,000 ML 15 ML IV ×2 (14:00→17:38)
--- NOTE | 2022-09-30 14:30 | HIP_PTH ---
PATIENT: ESTEBAN VALERIO I LOC: MS3 U#:[id number] AGE/SX: 82/F [place] [facility] [id number] RE09/29/[address]: Dr. Josephine Watson DO : 1940 BED: 1 DIS: 10/02/2022 SPEC #: [id number] RECD: 09/30/22 17:05 STATUS: PARKER REAngelia #: [id number] YASMIN: 09/30/22 14:[address]: Constantine Preston DEPT: SURGICAL PATHOLOGY RECD BY: Ino Keith ENTERED: 10/01/22 09:27 SP TYPE: TOTAL HIP OTHR DR: DO Dr. Ever Bai MD Dr. Steven Widmer, MD Elizabeth Steiner, MOLECULAR SPECTROSCOPIST-C Tissues: Hip, NOS Procedures: Decalcification bone/plaque Surgery Specimen Level IV HEADER OPERATION: Hemiarthroplasty right hip PRE-OP DIAGNOSIS: Fracture of right hip, closed TISSUE SUBMITTED: Right hip MICROSCOPIC DIAGNOSIS Right hip, total hip replacement/hemiarthroplasty: Femoral head and detached pieces of bone with focal area of hemorrhage, clinically fractured right hip. RASHAUN:didi 10/03/2022 MICROSCOPIC DESCRIPTION Slides are reviewed. GROSS DESCRIPTION Received is one container labeled with the patient's name and designated right hip. The specimen consists of a colon femoral head with numerous instrumentation montes de oca measuring 5.0 x 4.5 x 4.0 cm. The articular surface is smooth. Resection margin is irregular and hemorrhagic. Also present free in the specimen container are multiple irregular fragments of dark colon bone measuring in aggregate 5.0 x 3.0 x 2.5 cm. Engraving Supervisor sections are submitted in three cassettes after decalcification as follows: 1 & 2 - femoral head, 3 - fragments of bone free in container. / AM:didi 10/01/2022 TC:5 CPT: 41639, 30978
[2022-09-30 14:32] LABS: Color, Urine Yellow (Yellow); Glucose, Dipstick Normal (Normal); Ketone-Dipstick 50 mg/dl (Negative); Leukocyte Esterase-Dipstick Negative /ul (Negative); Nitrite-Dipstick Negative (Negative); Occult Blood-Urine 10 /ul (Negative); Protein-Dipstick Negative (Negative); Urine Bilirubin Dipstick Negative (Negative); Urine Clarity Clear (Clear); Urine Urobilinogen Normal (Normal)
[2022-09-30] MEDS: Cefazolin 2 GM in 0.9% Normal Saline 100 ML IV (15:03)
[2022-09-30] MEDS: Bupivacaine Mpf 0.5% 30 ML VIAL (16:28)
--- NOTE | 2022-09-30 16:54 | PCM.OPRPT ---
Report of Operation Date of Procedure: 09/30/22 Description of Surgical Findings:: Preoperative diagnosis: Right displaced femoral neck fracture Postoperative diagnosis: Right displaced femoral neck fracture Procedure: Cemented right hip hemiarthroplasty Surgeon: Constantine Preston DO Environmental Safety Specialist: Yesi Shirley PA-C Anesthesia: General endotracheal Anesthesiologist: Dr. Escalona Complications: None apparent Drains: None Estimated blood loss: 200 cc Urinary output: Per anesthesia record IV fluids: 1600 cc crystalloid Specimens: Right femoral head Surgical implants: Sumner Accolade C 127 degree neck angle hip stem size #5 with Simplex cement, Unitrax neck adjustment sleeve +4 mm, Unitrax endoprosthesis head component outer diameter 48 mm Indications: This is an 82-year-old female who sustained a mechanical ground-level fall 09/29/2022.. She landed on her right side. She was brought to [facility] where x-rays revealed a displaced right femoral neck fracture. She was admitted under the service of the hospitalist. I was consulted to see the patient for surgical recommendations. I recommended a right hip hemiarthroplasty due to the pattern and displacement. I reviewed the procedure with the patient, its risk, benefits, alternatives. Risks included but were not limited to bleeding, infection, loss of life or limb, risk of anesthesia, neurovascular injury, persistent pain, instability, need for additional surgery, failure of orthopedic hardware, loosening, osteolysis, need for assistive devices long-term. Patient expressed understanding wish to proceed with surgery. Description of procedure: Prior to the procedure, patient was brought to the preoperative holding area where patient was identified by name, medical record number and date of . I confirmed the side, site, operation to be performed with the patient. Informed consent was confirmed, All questions were answered to patient satisfaction. The operative extremity was marked. She was also seen by anesthesia staff and anesthesia consent obtained.At time of the operative procedure, pt was brought to the operative suite. General anesthesia was induced on the hospital bed and endotracheal tube placed. After adequate anesthesia, patient was transferred to a standard operating table. She was then positioned in the lateral decubitus position with the right side up and held in position by AppNeta hip positioner system. All bony prominences were well-padded. A axillary roll was placed under the patient's left axilla. Peroneal nerve was free with a blanket on the nonoperative extremity. Leg lengths were reproduced from patient's position when she was supine. The right lower extremity was then prepped and draped in normal, sterile orthopedic fashion. We performed a timeout with all parties in attendance in agreement with the side, site, and operation to be performed. No concerns were voiced and would like to proceed. 2 g Ancef was administered IV prior to the incision by anesthesia staff. I first marked an incision along the lateral aspect of the hip centered over the greater trochanteric tip. In standard posterior approach, a curvilinear incision was made above the trochanter. Skin was sharply incised with a 10 blade scalpel carried deep through subcutaneous layers to the level of the IT band. Gelpi retractors were then placed. A Pate was used to expose the IT band. Bovie cautery was then used for hemostasis and then to open the IT band. This was opened in line with the incision. A Charnley retractor was then placed. Sciatic nerve was free. The trochanteric bursa was then debrided. This identified the short external rotators after internal rotation of the hip. The fracture site was easily identified at this point. Short external rotators were taken down and tagged for later repair. Hip capsule was also tagged for repair with a stay suture. We then freshened the neck cut with a sagittal saw. Anterior and posterior acetabular retractors were placed to gain access to the femoral head. A corkscrew was used to remove the head. Any remaining debris was debrided from the acetabulum. We then placed the femoral head on the back table for measurement. We did use trial heads and selected a final size 48 with good suction fit. Box chisel was then utilized to gain access to the femoral canal. Canal finder was placed. Sequential broaches were used in press-fit manner. A final size 5 achieved excellent vertical and rotational stability. We then trialed with a standard and subsequently high offset stem. I offset did achieve excellent stability and reproduction of abductor tension. I then prepared the femur for cementing. We trialed a centralizer to determine appropriate size. Simplex cement was then mixed on the back table. I placed a cement restrictor to an appropriate depth allowing for a 5 mm distal cement mantle. Wire brush was used to remove blood from the femoral canal. I then thoroughly irrigated the femoral canal. Canal was suctioned dry. I then placed dry vaginal packing to pack the femoral canal. After 3 minutes, the cement was pressurized in the femoral canal. Size # 5 stem was then placed by hand to an appropriate depth recreating appropriate anteversion of the femoral neck. This was held in place while cement cured. Excess cement was removed. After the cemented cured, we copiously irrigated the wound with normal saline solution. I retrialed with a +4 mm head trial which appropriately reproduce her leg lengths and was stable through an arc of motion. Final dislocation was performed. The trunnion was irrigated and dried. Final head was then impacted over the Wise taper neck. Final reduction was performed. A posterior capsular repair was performed with #2 Ethibond suture via bone tunnels. IT band was closed watertight with #1 strata fix suture. Deeper fascial layers were closed with 0 Vicryl suture in interrupted fashion. Subcutaneous layers were reapproximated with 2-0 Vicryl suture and skin reapproximated with skin duy. A silver dressing was applied. Patient tolerated procedure well without complication. She was positioned back in the supine position on her hospital bed and subsequently extubated safely. She was transferred to PACU in stable condition. Blankets were placed between the patient's legs. Need for skilled technical support assistant: Yesi Shirley PA-C was critical to the outcome of the case. During the course of the procedure the physician technical support assistant played a vital role. Her intimate knowledge of my steps in the procedure aided in safe and expedient completion of the procedure. The PA played a vital role in positioning particularly in obtaining the appropriate positioning. The PA was also vital in the retraction of soft tissues during the exposure and protecting vital structures. The PA was also vital in performing dislocations and reductions of the trial and final orthopedic components. She also played a vital role in closure and dressing application with my direct supervision. Post Operative Plan: Weightbearing: Weightbearing as tolerated left lower extremity, posterior hip precautions. Blankets between the legs for the first 24 hours Antibiotics: Ancef 1 g every 8 hours x 3 doses DVT Prophylaxis: Lovenox 30 mg subcu daily started postoperative day #1, SCDyokasta, EDWIN macias, early mobilization Gardner: Remove postoperative day #1 Dressing: Maintain silver dressing x7 days X-Rays: PACU x-rays were reviewed demonstrated well-positioned right hip hemiarthroplasty implant. Follow-up 2-week x-rays in the office. Follow-up: 2 weeks in my office for staple removal
--- NOTE | 2022-09-30 17:10 | RAD_ITS ---
INDICATION: Post Op EXAMINATION/TECHNIQUE: X-RAY - RIGHT XR Hip Unilateral with Pelvis when performed; 2-3 Views 2 VIEWS COMPARISON: 09/29/2022 FINDINGS: SOFT TISSUES: Postoperative changes involving the soft tissues, skin duy in place. No radiopaque foreign body. Pelvic calcifications likely fibroids are unchanged. BONES/JOINTS: Interval placement of a RIGHT hip arthroplasty,, normal alignment. No hardware failure or fracture. Visualized pelvic ring is unchanged. LEFT hip has unchanged appearance. RAD/Hip Min 2 Views (Portable) IMPRESSION: 1. Normal postoperative examination status post RIGHT hip arthroplasty with normal alignment. No fractures or acute bony changes. 2. Expected postoperative changes in the soft tissues. Electronically Signed: Hever Aguero MD at 17:31 EDT ,
[2022-09-30] MEDS: 0.9% Saline Lock 10 ML Syringe IV (19:53)
[2022-09-30] MEDS: Ketorolac 15 MG/ML Vial IV (19:53)
[2022-09-30] MEDS: Acetaminophen 500 MG Tablet 1000 MG PO (22:16)
[2022-09-30] MEDS: Heparin Injection (Vial) 5,000 UNIT/ML VIAL 5000 UNIT SC (22:18)
[2022-09-30] MEDS: Cefazolin 1 GM/50 ML BAG IV (22:18)
[2022-10-01 02:30] VITALS: BP 100/53; PULSE 83; RESP 16; TEMP 36.7; O2SAT 98
[2022-10-01] MEDS: Cefazolin 1 GM/50 ML BAG IV ×2 (05:56→16:05)
[2022-10-01 06:00] VITALS: BP 100/62; PULSE 85; RESP 16; TEMP 36.7; O2SAT 97
[2022-10-01] MEDS: Heparin Injection (Vial) 5,000 UNIT/ML VIAL 5000 UNIT SC (06:03)
[2022-10-01] MEDS: Acetaminophen 500 MG Tablet 1000 MG PO ×3 (06:03→21:14)
[2022-10-01] MEDS: Celecoxib 200 MG Capsule PO (06:04)
[2022-10-01 07:30] VITALS: O2SAT 94
--- NOTE | 2022-10-01 07:44 | PCM.PN.ORT ---
Subjective Subjective Patient seen and examined. Patient denies any new complaints. Patient denies fevers, chills, nausea vomiting, chest pain or shortness of breath. States pain is better controlled now than prior to surgery. Objective Data Objective Data Vital Signs: Vital Signs Temp Pulse Resp BP Pulse Ox O2 Del Method O2 Flow Rate 98.1 F 85 16 100/62 97 Room Air 2 10/01/22 06:00 10/01/22 06:00 10/01/22 06:00 10/01/22 06:00 10/01/22 06:00 10/01/22 06:00 09/30/22 22:25 Oxygen Flow Rate (L/min) 2 Oxygen Delivery Method Room Air Weight: 111 lb 1.808 oz Body Mass Index (BMI) 20.4 Intake & Output: Intake and Output for Last 24 Hours 09/29/22 09/30/22 10/01/22 23:59 23:59 23:59 Intake Total 866.67 / 866.67 2160 / 2260 300 / 300 Output Total 950 / 1100 450 / 450 Balance 866.67 / 866.67 1210 / 1160 -150 / -150 Lab / Micro Data Result Diagrams: 09/30/22 05:25 09/30/22 05:25 Labs: Laboratory Results - last 24 hr 09/30/22 05:25: Diff Path Review Reviewed 09/30/22 05:25: Vitamin D 25-Hydroxy 79.8 09/30/22 11:40: Urine Color Yellow, Urine Clarity Clear, Urine pH 7.0, Ur Specific [place] 1.010, Urine Protein Negative, Urine Glucose (UA) Normal, Urine Ketones 50 H, Urine Occult Blood 10 H, Urine Nitrite Negative, Urine Bilirubin Negative, Urine Urobilinogen Normal, Ur Leukocyte Esterase Negative Radiography Diagnostic Testing: Radiology Impression Hip X-Ray 09/30/22 17:10 IMPRESSION: 1. Normal postoperative examination status post RIGHT hip arthroplasty with normal alignment. No fractures or acute bony changes. 2. Expected postoperative changes in the soft tissues. Electronically Signed: Hever Aguero MD at 17:31 EDT , Physical Exam Narrative General - A&Ox3, NAD. VSS/AF Right lower extremity -incisional dressing C/D/I. SILT Sural, Saphenous, SPN, DPN, Tibial N. distributions. DP, PT 2+. BCR. DF, PF, EHL /. No calf TTP. Assessment & Plan Assessment/Plan (1) Fracture of hip, right, closed: PLAN: POD#1 s/p right hip hemiarthroplasty - Pain control - Medicine following for medical management - PT/OT -posterior hip precautions, weightbearing as tolerated right lower extremity - DVT PPX -subcutaneous heparin, SCDs, EDWIN colleen, early mobilization - Case management - D/C planning. Family wanting to take patient home when ready. We will mobilize with therapy today to ensure the safety of this disposition. Will follow
[2022-10-01] MEDS: Multivitamins,Therapeutic Tablet 3 TABLET PO (07:59)
[2022-10-01] MEDS: predniSONE 5 MG Tablet PO (08:00)
[2022-10-01] MEDS: Cholecalciferol (VIT D3) 25 MCG TABLET (1,000 UNITS) 50 MCG PO (08:00)
[2022-10-01] MEDS: Calcium Carbonate 500 MG Tablet PO ×3 (08:00→16:05)
[2022-10-01] MEDS: Pantoprazole Sodium 40 MG Tablet PO (08:00)
[2022-10-01] MEDS: Ascorbic Acid 500 MG Tablet PO (08:00)
[2022-10-01 08:40] LABS: Absolute Lymphocyte Count 0.25 X10^3/uL (0.83-4.51); Absolute Neutrophil Count 8.7 X10^3/uL (2.0-7.7); Basophil# 0.03 X10^3/uL; Basophil% 0.3 % (0-1); Hematocrit 35.2 % (37-47); Hemoglobin 11.2 g/dL (12.0-15.0); Lymphocyte # 0.25 X10^3/ul (0.83-4.51); Lymphocyte % 2.5 % (19-41); Mean Corp Hgb Conc 31.8 g/dL (32-36); Mean Corpuscular Hgb 31.5 pg (27.0-32.0); Mean Corpuscular Volume 98.9 fL (81-99); Mean Platelet Vol. 11.4 fl (6.2-12.0); Monocyte# 0.94 X10^3/uL; Monocyte% 9.4 % (0-10); NRBC Flagged by Analyzer 0 % (0-5); Neutrophil # 8.66 X10^3/uL (2.7-7.7); Neutrophil % 86.1 % (47-70); POSITIVE DIFFERENTIAL YES; Platelet Count 224 K/mm3 (150-450); RBC Distribution Width CV 14.6 % (11.6-14.6); RBC Distribution Width SD 53.1 fl (35.1-43.9); Red Blood Count 3.56 M/mm3 (4.2-5.4); White Blood Count 10.1 K/mm3 (4.4-11.0)
[2022-10-01 08:41] LABS: Differential Indicated SCAN CRITERIA MET
[2022-10-01 09:01] LABS: Anion Gap 6 (5-15); BUN 14 mg/dL (7-18); BUN/Creat Ratio 17.7 RATIO (10-20); Calcium,Total 8.6 mg/dL (8.5-10.1); Chloride 104 mmol/L (98-107); Creatinine, Serum 0.79 mg/dL (0.55-1.02); EST Glomerular Filtration Rate 74 mL/min (>60); Est Glom Filt Rate - Afr Amer 89 mL/min (>60); Glucose 141 mg/dL (74-106); Potassium 4.1 mmol/L (3.5-5.1); Sodium Level 137 mmol/L (136-145)
--- NOTE | 2022-10-01 10:46 | CASEMGMT ---
Social Work SW met with patient and patient's daughter Nona with daughter Cassy via phone and introduced herself and role as [facility] SW. Patient agreeable to discuss discharge plan. SW provided list of SNF providers including quality and resource use data and consistent with patient?s preferred geographic region, medical needs, and insurance network were provided from the [facility] Guide. Patient's daughter Cassy explains she works at [facility] [employer] [facility] but wants patient to go to a different rehab located in [facility]. SW discussed reviewing rehab facilities in network with patient's insurance and discussed admission criteria. SW also reviewed [facility] rehab, unaware of bed availability. Patient and family would like [facility] IPR as first choice. SW updated MD Watson who contacted ROMAIN Manley and reports patient is accepted to [facility] pending precert. MD Watson updated patient and patient's family. VICENTA spoke with Tara, IPR admissions, no beds available but will further review with MD Manley. Plan: IPR or rehab Michelle RICHARD, ROXANA
--- NOTE | 2022-10-01 11:51 | CASEMGMT ---
Social Work Tara with IPR admissions, states patient could come to TCU as a bed will be available tomorrow. Tara explained she could request IPR once a bed is available, however, does not believe patient's insurance will approve rehab. VICENTA met with patient and patient's daughters to review option for TCU. VICENTA explained therapy is provided daily but would not be as frequent as therapy would be for rehab. Patient reports being exhausted by therapy from earlier today and is agreeable to TCU. VICENTA explained admissions staff would try to have therapy approve IPR when a bed is available, however, insurance might not approve. Patient and patient's daughter voiced understanding. VICENTA updated Tara patient is agreeable to TCU. Plan: TCU pending precert Michelle RICHARD, ROXANA
[2022-10-01] MEDS: Alendronate Sodium 70 MG Tablet PO (12:04)
--- NOTE | 2022-10-01 13:13 | PCM.PN.HOSP ---
Reason for Visit Reason for Visit: Fall/right hip pain Subjective Subjective Urinary retention yesterday however the patient was limited to a bedpan preoperatively. We will try to get Gardner out today. UA done yesterday was not consistent with infection. Feels well this morning and had no issues overnight. Has yet to get up with therapy however. Would like to go home if possible however will need to see how she does with physical therapy and Occupational Therapy. Objective Data Objective Data Vital Signs: Vital Signs Temp Pulse Resp BP Pulse Ox O2 Del Method O2 Flow Rate 98.1 F 85 16 100/62 97 Room Air 2 10/01/22 06:00 10/01/22 06:00 10/01/22 06:00 10/01/22 06:00 10/01/22 06:00 10/01/22 08:00 09/30/22 22:25 Oxygen Flow Rate (L/min) 2 Oxygen Delivery Method Room Air Weight: 50.4 kg Body Mass Index (BMI) 20.4 Intake & Output: Intake and Output for Last 24 Hours 09/29/22 09/30/22 10/01/22 23:59 23:59 23:59 Intake Total 866.67 / 866.67 2160 / 2260 500 / 500 Output Total 950 / 1100 450 / 450 Balance 866.67 / 866.67 1210 / 1160 50 / 50 Lab / Micro Data Result Diagrams: 10/01/22 08:30 10/01/22 08:30 Labs: Laboratory Results - last 24 hr 09/30/22 11:40: Urine Color Yellow, Urine Clarity Clear, Urine pH 7.0, Ur Specific [place] 1.010, Urine Protein Negative, Urine Glucose (UA) Normal, Urine Ketones 50 H, Urine Occult Blood 10 H, Urine Nitrite Negative, Urine Bilirubin Negative, Urine Urobilinogen Normal, Ur Leukocyte Esterase Negative 10/01/22 08:30: WBC 10.1, RBC 3.56 L, Hgb 11.2 L, Hct 35.2 L, MCV 98.9, MCH 31.5, MCHC 31.8 L, RDW Std Deviation 53.1 H, RDW Coeff of Eusebio 14.6, Plt Count 224, MPV 11.4, Immature Gran % (Auto) 0.700, Neut % (Auto) 86.1 H, Lymph % (Auto) 2.5 L, [place] % (Auto) 9.4, Eos % (Auto) 1.0, Baso % (Auto) 0.3, Absolute Neuts (auto) 8.7 H, Absolute Lymphs (auto) 0.25 L, Nucleated RBC % 0, Differential Comment COMMENT 10/01/22 08:30: Sodium 137, Potassium 4.1, Chloride 104, Carbon Dioxide 27.0, Anion Gap 6, BUN 14, Creatinine 0.79, Estim Creat Clear Calc 31.60, Est GFR (MDRD) Af Amer 89, Est GFR (MDRD) Non-Af 74, BUN/Creatinine Ratio 17.7, Glucose 141 H, Calcium 8.6 Radiography Diagnostic Testing: Radiology Impression Hip X-Ray 09/30/22 17:10 IMPRESSION: 1. Normal postoperative examination status post RIGHT hip arthroplasty with normal alignment. No fractures or acute bony changes. 2. Expected postoperative changes in the soft tissues. Electronically Signed: Hever Aguero MD at 17:31 EDT , Physical Exam Const alert, oriented x3, no apparent distress and average body habitus Constitutional Narrative: Thin, elderly white female lying in bed, daughter at bedside, patient appears comfortable and nontoxic HEENT head/scalp atraumatic and moist oral mucous membranes Head and Scalp: normocephalic Resp normal respiratory effort, no retractions, no use of accessory muscles and clear to auscultation bilaterally Auscultation: Negative for rales, rhonchi or wheezes Cardio regular rate, regular rhythm, S1 normal heart sound, S2 normal heart sound, no murmurs, no rub, no gallops and no clicks GI normal to inspection, nondistended, normoactive bowel sounds, soft to palpation and non-tender Extremity no clubbing, cyanosis or edema Extremity Narrative: EDWIN hose in place, postoperative dressing covered with polar ice and EDWIN hose, no drainage Neuro oriented x3, no focal motor deficits and no sensory deficits noted Neuro Narrative: Decreased right lower extremity movement due to pain however improved since surgical intervention Speech: speech normal Psych affect normal Psych Narrative: Pleasant, appropriately interactive Assessment & Plan Assessment/Plan (1) Fracture of hip, right, closed: (2) Fall: (3) Closed head injury: (4) Diarrhea: (5) Leukocytosis: (6) Hypophosphatemia: (7) Hyperbilirubinemia: (8) Dysuria: PLAN: Plan Right femoral neck fracture secondary to mechanical fall -Postop day 1 right total hip arthroplasty -Weightbearing as tolerated -DVT prophylaxis with Lovenox 30 mg subcu recommended postoperatively for 30 days -Dressing to be maintained for 7 days -PT/OT has since seen the patient and are recommending rehab/skilled at discharge -I discussed the case with Dr. Manley and she is willing to take her at rehab -No beds currently available therefore will discharge to TCU with transition to acute rehab once bed becomes available -Will need pre-CERT prior to discharge -Continue Tylenol 1000 every 8 -Continue Norflex as ordered -Continue oxycodone as ordered -Start stool softeners as needed with history of diarrhea -Vitamin D level is 78.8 we will continue home supplementation -Appreciate orthopedic surgery input -Will need outpatient follow-up in 2 weeks Diarrhea -No significant stooling since admission therefore stool samples have not been able to be sent -At the very least we will make referral to GI at discharge Dysuria -UA is not consistent with infection Hypophosphatemia -Resolved Hyperbilirubinemia -This appears to be new -Repeat in a.m. for trend Closed head injury -CT negative for any acute findings -No laceration -Monitor clinically Falls -We will likely require placement at discharge -PT/OT consulted History of osteoporosis -Continue alendronate -Continue vitamin D as ordered -Vitamin D level is within normal range RA -Continue methotrexate at discharge -Hold Xeljanz--> we will hold at least for a week and discuss further with orthopedic surgery prior to discharge -Continue prednisone as ordered -We will hold Ultram and utilize oxycodone for now GERD -Continue PPI DVT prophylaxis -Lovenox 30 mg daily -Discontinue heparin CODE STATUS Full code Charges/Coding Visit Charges Inpatient E&M: 55954 Subs Hosp L2
[2022-10-01 15:00] VITALS: BP 112/60; PULSE 84; RESP 16; TEMP 36.9; O2SAT 99
[2022-10-01] MEDS: Enoxaparin 30 MG/0.3 ML Syringe SC (15:09)
[2022-10-01 17:46] VITALS: BMI 20.7
[2022-10-01] MEDS: Lactated Ringers 1,000 ML 100 ML IV (20:57)
[2022-10-01] MEDS: 0.9% Saline Lock 10 ML Syringe IV (20:57)
[2022-10-01 21:06] VITALS: BP 90/49; PULSE 81; RESP 18; TEMP 36.9; O2SAT 93
[2022-10-02 00:46] VITALS: BP 95/56; PULSE 79; RESP 18; TEMP 36.5; O2SAT 92
[2022-10-02] MEDS: Ketorolac 15 MG/ML Vial IV (00:53)
[2022-10-02 04:23] VITALS: BMI 20.7
[2022-10-02 04:35] LABS: Absolute Lymphocyte Count 0.38 X10^3/uL (0.83-4.51); Absolute Neutrophil Count 8.7 X10^3/uL (2.0-7.7); Basophil# 0.02 X10^3/uL; Basophil% 0.2 % (0-1); Eosinophil# 0.11 X10^3/uL; Eosinophils% 1.1 % (0-5); Hematocrit 29.2 % (37-47); Hemoglobin 9.2 g/dL (12.0-15.0); Lymphocyte # 0.38 X10^3/ul (0.83-4.51); Lymphocyte % 3.7 % (19-41); Mean Corp Hgb Conc 31.5 g/dL (32-36); Mean Corpuscular Hgb 30.7 pg (27.0-32.0); Mean Corpuscular Volume 97.3 fL (81-99); Mean Platelet Vol. 11.9 fl (6.2-12.0); Monocyte# 1.13 X10^3/uL; Monocyte% 10.9 % (0-10); NRBC Flagged by Analyzer 0 % (0-5); Neutrophil # 8.66 X10^3/uL (2.7-7.7); Neutrophil % 83.6 % (47-70); POSITIVE DIFFERENTIAL YES; Platelet Count 199 K/mm3 (150-450); RBC Distribution Width CV 14.8 % (11.6-14.6); RBC Distribution Width SD 52.6 fl (35.1-43.9); White Blood Count 10.4 K/mm3 (4.4-11.0)
[2022-10-02 04:38] LABS: Differential Indicated SCAN CRITERIA MET
[2022-10-02 04:46] VITALS: BP 96/52; PULSE 82; RESP 18; TEMP 36.6; O2SAT 96
[2022-10-02] MEDS: oxyCODONE 5 MG Tablet PO (04:49)
[2022-10-02] MEDS: Acetaminophen 500 MG Tablet 1000 MG PO ×2 (04:50→14:50)
[2022-10-02 05:09] LABS: Differential Comment SCANNED
[2022-10-02 05:24] LABS: ALB/GLOB Ratio 0.7 RATIO (0.9-2.4); AST(SGOT) 69 U/L (15-37); Alanine Aminotransfer ALT/SGPT 19 U/L (13-56); Albumin, Serum 2.1 g/dL (3.2-5.0); Alkaline Phosphatase 74 U/L (45-117); Anion Gap 5 (5-15); BUN 20 mg/dL (7-18); Calcium,Total 8.4 mg/dL (8.5-10.1); Chloride 109 mmol/L (98-107); Creatinine, Serum 0.74 mg/dL (0.55-1.02); EST Glomerular Filtration Rate 79 mL/min (>60); Est Glom Filt Rate - Afr Amer 96 mL/min (>60); Globulin 2.9 g/dL (2.2-4.2); Glucose 122 mg/dL (74-106); Phosphorus 1.9 mg/dL (2.5-4.9); Potassium 3.8 mmol/L (3.5-5.1); Sodium Level 141 mmol/L (136-145)
[2022-10-02 07:55] VITALS: O2SAT 94
[2022-10-02 08:39] VITALS: BP 99/62; PULSE 78; RESP 18; TEMP 36.6; O2SAT 93
[2022-10-02] MEDS: Multivitamins,Therapeutic Tablet 3 TABLET PO (08:57)
[2022-10-02] MEDS: Cholecalciferol (VIT D3) 25 MCG TABLET (1,000 UNITS) 50 MCG PO (08:57)
[2022-10-02] MEDS: Calcium Carbonate 500 MG Tablet PO ×3 (08:57→17:52)
[2022-10-02] MEDS: Pantoprazole Sodium 40 MG Tablet PO (08:57)
[2022-10-02] MEDS: Ascorbic Acid 500 MG Tablet PO (08:57)
[2022-10-02] MEDS: predniSONE 5 MG Tablet PO (09:02)
[2022-10-02] MEDS: Enoxaparin 30 MG/0.3 ML Syringe SC (09:02)
[2022-10-02] MEDS: 0.9% Saline Lock 10 ML Syringe IV (09:12)
[2022-10-02] MEDS: Tamsulosin HCl 0.4 MG Capsule PO ×2 (09:59→17:52)
[2022-10-02 10:16] VITALS: O2SAT 99
--- NOTE | 2022-10-02 11:33 | CASEMGMT ---
Addendum entered by Елена Aguirre 10/02/22 13:37: Discharge orders faxed to TCU for admission today. KEANU Doan Original Note: Social Work Per Tara in TCU precert has been obtained and pt can admit to TCU today. Physician updated and pt is ready for discharge today. SW met with pt and pt dgt and updated, both agreeable to d/c to TCU today. Bed will be available later in the day. Disposition: TCU, skilled level of care KEANU Doan
--- NOTE | 2022-10-02 12:27 | TREXTCAR_ITS ---
Diet Diet Order/Speech Therapy: 10/01/22 04:56 Diet: Regular - General Is pt able to select menu?: Yes Diet Comments: Distant supervision, No straws, GERD precautions Routine Orders/Code Status Suppository Frequency: Daily PRN O2 Frequency: PRN Routine Lab Work: CBC (1 week) and BMP (1 week) Code Status: Full Code Wound(s) right hip: Wound Type: Surgical Incision Suggestions for Active Care Change Position every (hours): 2 Therapies Weight Bearing: Weight bearing as tolerated Extremity Affected:: Right Lower Physical Therapy: Eval and Treat Occupational Therapy: Eval and Treat Speech Therapy: Eval and Treat Problem/Diagnosis (1) Fracture of hip, right, closed: Status: Acute Code(s): S72.001A - Fracture of unspecified part of neck of right femur, initial encounter for closed fracture (2) Fall: Status: Acute Code(s): W19.XXXA - Unspecified fall, initial encounter (3) Closed head injury: Status: Acute Code(s): S09.90XA - Unspecified injury of head, initial encounter (4) Diarrhea: Status: Acute Code(s): R19.7 - Diarrhea, unspecified (5) Leukocytosis: Status: Acute Code(s): D72.829 - Elevated white blood cell count, unspecified (6) Hypophosphatemia: Status: Acute Code(s): E83.39 - Other disorders of phosphorus metabolism (7) Hyperbilirubinemia: Status: Acute Code(s): E80.6 - Other disorders of bilirubin metabolism (8) Dysuria: Status: Acute Code(s): R30.0 - Dysuria Allergies/Procedures Done in Hospital Allergies amoxicillin trihydrate [From Trimox] Allergy (Intermediate, Verified 09/29/22 14:48) Rash Penicillins Allergy (Verified 09/29/22 14:49) Swelling Procedures: - (CT cervical spine/CT lower extremity/hips x-rays/CT brain) Type of Care/Length of Stay Estimated LOS: Convalescent Care Less Than 30 days Type of Care Needed: Skilled Rehab Potential: Good Prognosis: Good Additional Orders/Day of Discharge Additional Orders: As needed straight catheterizations. She is having some postop urinary retention Day of Discharge: 10/02/22 Dietary and Speech Recommendations Dietitian Recommendations/Changes: Continue liberal regular diet Discuss ONS w/ pt at time of follow up pending po intake and wt trends. Discharge Plan Admission Admit Date/Time: 09/29/22 13:18 Attending Provider: Josephine Watson Primary Care Provider: Milagros Aguirre NP Consulting Providers: Ever Hummel ; Alfred Knutson Discharge Orders/Prescriptions Prescriptions: No Action alendronate [Fosamax] 70 mg tablet 70 mg PO QWEEK tramadol 50 mg tablet 50 mg PO BID ascorbic acid (vitamin C) 500 mg capsule 500 mg PO DAILY cholecalciferol (vitamin D3) 50 mcg (2,000 unit) capsule 50 mcg PO DAILY prednisone 5 MG tablet 5 mg PO DAILY methotrexate sodium (PF) 25 MG/ML solution 75 mg IM TH Hold Instructions: Resume on 10/15/21. Label Comments: HOLD WEEK OF SURGERY-PER DR. HOLDEN folic acid 400 mcg tablet 0.8 mg PO DAILY@0800 celecoxib 200 mg capsule 200 mg PO DAILY PRN (Reason: Pain) multivitamin Tablet 3 tab PO DAILY Xeljanz 5 mg tablet 5 mg PO BID Hold Instructions: Resume on 10/15/21. buprenorphine [Butrans] 10 mcg/hour patch weekly 5 mcg topical QWEEK Label Comments: Thursday lansoprazole [Prevacid] 30 mg capsule,delayed release(/EC) 30 mg PO DAILY 28 Days Qty: 28 0RF Referrals / Follow Up: Milagros Aguirre NP, [facility] [Primary Care Provider] -
--- NOTE | 2022-10-02 12:32 | DS.PCM_ITS ---
Providers Date of Admission: 09/29/22 Date of Discharge: 10/02/22 Primary Care Physician: YENIFER Barrera Consultations 09/29/22 14:33 Consult: Orthopedics Routine Consulting Provider: Alfred Knutson Reason for Consult: right femoral neck fracture EMERGENT Consult: No MD Notified: Yes Date Notified: 09/29/22 Time Notified: 13:24 Method of Notification: ED Physician Initiated Reason For Visit: RIGHT FEMUR NECK FRACTURE Diagnosis Discharge Diagnosis (1) Fracture of hip, right, closed: Status: Acute Code(s): S72.001A - Fracture of unspecified part of neck of right femur, initial en counter for closed fracture (2) Fall: Status: Acute Code(s): W19.XXXA - Unspecified fall, initial encounter (3) Closed head injury: Status: Acute Code(s): S09.90XA - Unspecified injury of head, initial encounter (4) Diarrhea: Status: Acute Code(s): R19.7 - Diarrhea, unspecified (5) Leukocytosis: Status: Acute Code(s): D72.829 - Elevated white blood cell count, unspecified (6) Hypophosphatemia: Status: Acute Code(s): E83.39 - Other disorders of phosphorus metabolism (7) Hyperbilirubinemia: Status: Acute Code(s): E80.6 - Other disorders of bilirubin metabolism (8) Dysuria: Status: Acute Code(s): R30.0 - Dysuria Medications at Discharge Home Medications methotrexate sodium (PF) 25 mg/mL injection solution 75 mg IM TH 11/29/13 prednisone 5 mg tablet 5 mg PO DAILY 11/29/13 alendronate 70 mg tablet (Fosamax) 70 mg PO QWEEK 11/10/18 folic acid 400 mcg tablet 0.8 mg PO DAILY@0800 11/10/18 celecoxib 200 mg capsule 200 mg PO DAILY PRN Pain 12/12/20 multivitamin 3 tab PO DAILY 06/25/21 tofacitinib 5 mg tablet (Xeljanz) 5 mg PO BID 06/25/21 buprenorphine 10 mcg/hour weekly transdermal patch (Butrans) 5 mcg topical QWEEK 09/16/21 lansoprazole 30 mg capsule,delayed release (Prevacid) 30 mg PO DAILY 4 weeks #28 caps 05/11/22 ascorbic acid (vitamin C) 500 mg capsule 500 mg PO DAILY 05/27/22 cholecalciferol (vitamin D3) 50 mcg (2,000 unit) capsule 50 mcg PO DAILY 05/27/22 acetaminophen 500 mg tablet 1,000 mg PO Q8 #0 tabs 10/02/22 calcium carbonate 200 mg calcium (500 mg) chewable tablet 500 mg PO TIDCM #0 tabs 10/02/22 enoxaparin 30 mg/0.3 mL subcutaneous syringe 30 mg (0.3 mL) subcut DAILY #0 mL 10/02/22 tamsulosin 0.4 mg capsule 0.4 mg PO DAILY@1730 #0 caps 10/02/22 tizanidine 2 mg tablet 2 mg PO Q8H PRN PRN muscle spasm #0 tabs 10/02/22 tramadol 50 mg tablet 50 mg PO Q8H PRN pain #3 tabs 10/02/22 Hospital Course Operations total hip replacement Summary of Care Provided Minutes Spent on Discharge: 37 Hospital Course: Mrs. Lakhani is an 82-year-old white female who presented to the emergency department on 09/29/2022 after mechanical fall.? At the time she fell onto her right side and hit her right hip and forehead.? She had no loss of consciousness and a mild bruise on her right forehead at presentation.? She also complained of right hip pain.? CT of the brain was unremarkable other than chronic involutional changes.? CT of the cervical spine was unremarkable other than mu ltilevel degenerative changes.? Pelvic x-ray demonstrated osteopenia with age consistent bilateral hip SI joint arthrosis.? And femoral x-ray on the right demonstrated findings concerning for femoral neck fracture.? CT scan was then performed of the hip and pelvis and there was a complete oblique fracture through the right femoral neck with mild displacement.? Patient also complained of ongoing diarrhea that has been problematic since August.? She does have history of C. difficile however is reported that she tested negative for C. difficile just a few days prior.? Stool studies were ordered on upon presentation however he did not have any diarrhea throughout her hospital course so they were discontinued. She complained of dysuria at 1 point during her hospitalization and a UA was obtained and not consistent with infection. She was taken to the OR on 09/30/2022 at which time a right hip hemiarthroplasty was performed. We did obtain a vitamin D level and it was within normal range. She did extremely well postoperatively except with physical therapy she needed more help than she initially thought she was going to. She did anticipate being able to go home at the time of discharge however therapy recommended ongoing therapy prior to going home. Family was amenable to going to rehab or the TCU. She was excepted by the TCU with plans to transition to rehab if patient would be able to tolerate that therapy and they were able to obtain insurance approval. She did have some urinary retention postoperatively for which we started some Flomax. This can be discontinued once she starts voiding adequately. She may need some intermittent straight cathing depending on urinary production. Oral intake has been good. Pain has overall been well controlled with current regimen. Family had some concerns with regards to silent aspiration so speech therapy was consulted however they did not have time to evaluate her prior to discharge and she will be evaluated at TCU with regards to this. Orthopedic surgery has recommended?weightbearing as tolerated of the left lower extremity with posterior hip precautions, DVT prophylaxis with Lovenox 30 mg subcu daily for 30 days, SCDs, EDWIN hose and early mobilization, maintain her silver dressing for 7 days and postoperative follow-up in 2 weeks at his office. Also recommended that she follow-up with her primary care physician within the next month. We have held her Xeljanz for the time being given its immunosuppression and will hold it for another week postoperatively. She was able to be discharged in stable condition to the transitional care unit on 10/02/2022. Discharge diagnoses: Mechanical fall Right femoral neck fracture status post total hip arthroplasty Diarrhea-resolved Dysuria-resolved Urinary retention Hypophosphatemia-resolved Closed head injury History of osteoporosis Rheumatoid arthritis GERD Chronic prednisone use Physical Exam Const alert, oriented x3, no apparent distress and average body habitus Constitutional Narrative: Thin, elderly white female sitting up in bed, nursing at bedside, patient appears comfortable and nontoxic General Appearance: cooperative, comfortable, well kempt and well developed Orientation / Consciousness: awake, oriented to person, oriented to place and oriented to time Exam Limitations: no limitations Nutritional Appearance: thin HEENT normocephalic, head/scalp atraumatic and moist oral mucous membranes HEENT Narrative: Dentition is fair, Mallampati is 2, no thrush, moderate hearing loss Eyes PERRL, EOMs intact bilaterally and conjunctivae normal Eyes Narrative: No scleral icterus Neck no lymphadenopathy, supple and no JVD Neck Narrative: Trachea midline, no thyroid enlargement Resp normal respiratory effort, no retractions, no use of accessory muscles and clear to auscultation bilaterally Auscultation: Negative for rales, rhonchi or wheezes Cardio regular rate, regular rhythm, S1 normal heart sound, S2 normal heart sound, no murmurs, no rub, no gallops and no clicks GI normal to inspection, nondistended, normoactive bowel sounds, soft to palpation and non-tender Extremity no clubbing, cyanosis or edema Extremity Narrative: EDWIN hose in place, postoperative dressing covered with polar ice and EDWIN hose--> dressing is clean dry and intact without any signs of postoperative drainage Skin no wounds, skin turgor normal and no jaundice Skin Narrative: Scattered ecchymosis, ecchymosis noted on right yazidism from fall-healing well and no breaks in the skin Neuro oriented x3, CN's II-XII intact bilaterally, no focal motor deficits and no sensory deficits noted Neuro Narrative: Decreased right lower extremity movement due to pain however improved since surgical intervention Speech: speech normal Psych affect normal Psych Narrative: Pleasant, appropriately interactive Weight / BMI Weight Weight: 51.2 kg Body Mass Index (BMI) 20.7 ABG / Lab / Microbiology Data Result Diagrams: 10/02/22 04:10 10/02/22 04:10 Laboratory: Laboratory Results - last 24 hr 10/02/22 04:10: WBC 10.4, RBC 3.00 L, Hgb 9.2 L, Hct 29.2 L, MCV 97.3, MCH 30.7, MCHC 31.5 L, RDW Std Deviation 52.6 H, RDW Coeff of Eusebio 14.8 H, Plt Count 199, MPV 11.9, Immature Gran % (Auto) 0.500, Neut % (Auto) 83.6 H, Lymph % (Auto) 3.7 L, Medina % (Auto) 10.9 H, Eos % (Auto) 1.1, Baso % (Auto) 0.2, Absolute Neuts ( auto) 8.7 H, Absolute Lymphs (auto) 0.38 L, Nucleated RBC % 0, Differential Comment SCANNED 10/02/22 04:10: Sodium 141, Potassium 3.8, Chloride 109 H, Carbon Dioxide 27.0, Anion Gap 5, BUN 20 H, Creatinine 0.74, Estim Creat Clear Calc 31.60, Est GFR (MDRD) Af Amer 96, Est GFR (MDRD) Non-Af 79, BUN/Creatinine Ratio 27.0 H, Glucose 122 H, Calcium 8.4 L, Phosphorus 1.9 L, Total Bilirubin 0.50, AST 69 H, ALT 19, Alkaline Phosphatase 74, Total Protein 5.0 L, Albumin 2.1 L, Globulin 2.9, Albumin/Globulin Ratio 0.7 L D/C Instructions Discharge Diet: No restrictions Meaningful Use Info Meaningful Use Diagnoses (Choose all that apply): None applicable Discharge Plan Admission Admit Date/Time: 09/29/22 13:18 Primary Reason for Your Visit: Fall/ R Hip Pain Attending Provider: Josephine Watson Primary Care Provider: Milagros Aguirre NP Consulting Providers: Ever Hummel ; Alfred Knutson Discharge Orders/Prescriptions Prescriptions: New acetaminophen 500 mg Tablet 1,000 mg PO Q8 Qty: 0 0RF calcium carbonate 200 mg calcium (500 mg) Tablet,Chewable 500 mg PO TIDCM Qty: 0 0RF tizanidine 2 mg Tablet 2 mg PO Q8H PRN PRN (Reason: muscle spasm) Qty: 0 0RF tamsulosin 0.4 mg Capsule 0.4 mg PO DAILY@1730 Qty: 0 0RF Rx Instructions: stop if voiding well enoxaparin 30 mg/0.3 mL Syringe 30 mg subcut DAILY Qty: 0 0RF Rx Instructions: for 30 days postoperatively Continued alendronate [Fosamax] 70 mg tablet 70 mg PO QWEEK ascorbic acid (vitamin C) 500 mg capsule 500 mg PO DAILY cholecalciferol (vitamin D3) 50 mcg (2,000 unit) capsule 50 mcg PO DAILY prednisone 5 MG tablet 5 mg PO DAILY methotrexate sodium (PF) 25 MG/ML solution 75 mg IM TH Hold Instructions: Resume on 10/15/21. Label Comments: HOLD WEEK OF SURGERY-PER DR. HOLDEN folic acid 400 mcg tablet 0.8 mg PO DAILY@0800 celecoxib 200 mg capsule 200 mg PO DAILY PRN (Reason: Pain) multivitamin Tablet 3 tab PO DAILY buprenorphine [Butrans] 10 mcg/hour patch weekly 5 mcg topical QWEEK Label Comments: Thursday lansoprazole [Prevacid] 30 mg capsule,delayed release(DR/EC) 30 mg PO DAILY 28 Days Qty: 28 0RF Changed tramadol 50 mg tablet 50 mg PO Q8H PRN (Reason: pain) Qty: 3 0RF Held Xeljanz 5 mg tablet 5 mg PO BID Hold Instructions: Resume on 10/09/22. Referrals / Follow Up: Constantine Preston DO [Med Staff - Active Staff] - Within 2 Weeks Milagros Aguirre NP, [employer] [Primary Care Provider] - Within 1 Month Disposition Disposition (needs filled in before D/C Order can be placed): [facility] Facility Charges/Coding Visit Charges Inpatient E&M: 26146 SNF Disch >30 Min
[2022-10-02 13:34] VITALS: BP 95/59; PULSE 86; RESP 18; TEMP 36.7; O2SAT 94
--- NOTE | 2022-10-02 14:58 | NURSING ---
REINFORCED FLUID INTAKE WITH PATIENT. IVAC CHANGED, KPHOS INFUSING.
--- NOTE | 2022-10-02 17:55 | NURSING ---
report called to carlos in tcu
== END 2022-10-02 18:11 | disposition skilled nursing facility (03) | DRG 522 ==
LOC: ED 13:08 → MS3 13:53
PROVIDERS: Anesthesiology; Student in an Organized Health Care Education/Training Program; Admitting Provider Internal Medicine; Emergency Provider Emergency Medicine; PCP Registered Nurse; Visit Provider Internal Medicine
PROC: (CPT 27125; principal; 2022-09-30 14:10)
DX: S72.011A Unspecified intracapsular fracture of right femur, initial encounter for closed fracture (principal); Z79.891 Long term (current) use of opiate analgesic; E83.39 Other disorders of phosphorus metabolism; D72.829 Elevated white blood cell count, unspecified; S00.83XA Contusion of other part of head, initial encounter; E80.6 Other disorders of bilirubin metabolism; M06.9 Rheumatoid arthritis, unspecified; W18.09XA Striking against other object with subsequent fall, initial encounter; K52.9 Noninfective gastroenteritis and colitis, unspecified; I34.0 Nonrheumatic mitral (valve) insufficiency; K21.9 Gastro-esophageal reflux disease without esophagitis; M16.0 Bilateral primary osteoarthritis of hip; E86.0 Dehydration; Z79.83 Long term (current) use of bisphosphonates; R30.0 Dysuria; R33.9 Retention of urine, unspecified; Z79.52 Long term (current) use of systemic steroids; Z20.822 Contact with and (suspected) exposure to COVID-19; Z79.899 Other long term (current) drug therapy
CPT/HCPCS: 36415; 70450; 72125; 72170; 73502; 73552; 73700; 80048; 80053; 80076; 81002; 82306; 83735; 84100; 85025; 85730; 86850; 86900; 86901; 87426; 88305; 88311; 92610; 93005; 94668; 97110; 97162; 97166; 97530; 97535; 97802; 99284; C1776; J7050; J7120; A4216; J2405

== ENCOUNTER 2022-10-02 18:30 | Inpatient (IN) | payer MEDICARE, SELFPAY ==
--- NOTE | 2022-10-02 20:18 | HP.PCM_ITS ---
HPI - General General Date of Admission: 10/02/22 Date of Service: 10/02/22 Chief Complaint: Here for rehabilitation. HPI Narrative 09/29/2022 ESTEBAN VALERIO, is a 82 Female who presents to [facility] Emergency Department with fall. Tripped, fell, hit forehead, injured right hip, no loss of consciousness. X-ray showed right hip fracture. CT showed right hip fracture. Fentanyl, Morphine, Norflex given for pain/spasm. Check stool for c. diff due to chronic diarrhea. 09/29/2022 Admit to Hospital. IV fluids, pain control, Dr. Preston for right hip fracture. IV fluids, stool studies for diarrhea, deyhydration. 09/30/2022 PT/OT after surgery. CT head negative for intracranial injury. No stool since admission. 09/30/2022 Dr. Preston performed cemented right hip hemiarthroplasty. 10/01/2022 Lovenox 30mg sc daily x 30 days for DVT prophylaxis. PT/OT for SNF/Acute rehab. Diarrhea resolved. 10/02/2022 Replace phosphorous. 10/02/2022 Admit to TCU with debility, here for rehabilitation, strengthening, prior to discharge home alone. [facility] Medical History (Updated 10/02/22 @ 20:[address] Adalberto Willingham MD) Arthritis Back pain Cardiology follow-up encounter Easy bruising Gastric reflux History of hiatal hernia History of irregular heartbeat History of pain when walking History of steroid therapy Injury of back Irregular heart beat Kidney stones MVP (mitral valve prolapse) Normal stress echocardiogram Post-menopausal Premature atrial contraction Premature ventricular contraction Rheumatoid arthritis Sleep apnea Supraventricular tachycardia Wears contact lenses Wears glasses Home Medications methotrexate sodium (PF) 25 mg/mL injection solution 75 mg IM TH Check with primary doctor 11/29/13 [History Last Taken 09/16/21] prednisone 5 mg tablet 5 mg PO DAILY Check with primary doctor 11/29/13 [History Last Taken 07/02/21] alendronate 70 mg tablet (Fosamax) 70 mg PO QWEEK Check with primary doctor 11/10/18 [History Last Taken 10/01/22 12:05] folic acid 400 mcg tablet 0.8 mg PO DAILY@0800 Supplement 11/10/18 [History Last Taken Unknown] celecoxib 200 mg capsule 200 mg PO DAILY PRN Pain 12/12/20 [History Last Taken Unknown] multivitamin 3 tab PO DAILY Supplement 06/25/21 [History Last Taken Unknown] tofacitinib 5 mg tablet (Xeljanz) 5 mg PO BID Check with primary doctor 06/25/21 [History Last Taken 09/16/21] buprenorphine 10 mcg/hour weekly transdermal patch (Butrans) 5 mcg topical QWEEK Check with primary doctor 09/16/21 [History Last Taken 09/27/22] ascorbic acid (vitamin C) 500 mg capsule 500 mg PO DAILY Supplement 05/27/22 [History Last Taken Unknown] cholecalciferol (vitamin D3) 50 mcg (2,000 unit) capsule 50 mcg PO DAILY Supplement 05/27/22 [History Last Taken Unknown] acetaminophen 500 mg tablet 1,000 mg PO Q8 Pain 10/02/22 [History Last Taken Unknown] calcium carbonate 200 mg calcium (500 mg) chewable tablet 500 mg PO TIDCM Check with primary doctor 10/02/22 [History Last Taken Unknown] enoxaparin 30 mg/0.3 mL subcutaneous syringe 30 mg subcut DAILY Anticoagulant 10/02/22 [History Last Taken Unknown] lansoprazole 30 mg capsule,delayed release (Prevacid) 30 mg PO DAILY Check with primary doctor 10/02/22 [History Last Taken Unknown] tamsulosin 0.4 mg capsule 0.4 mg PO DAILY@1730 Bladder 10/02/22 [History Last Taken Unknown] tizanidine 2 mg tablet 2 mg PO Q8H PRN PRN muscle spasm #0 tabs 10/02/22 [Rx Last Taken Unknown] tramadol 50 mg tablet 50 mg PO Q8H PRN pain #3 tabs 10/02/22 [Rx Last Taken Unknown] Allergy/AdvReac Type Severity Reaction Status Date / Time amoxicillin trihydrate Allergy Intermediate Rash Verified 09/29/22 14:48 [From Trimox] Penicillins Allergy Swelling Verified 09/29/22 14:49 Family History Father CAD (coronary artery disease) CVA (cerebral vascular accident) Hypertension Heart disease Brother CAD (coronary artery disease) Mother Osteoporosis Surgical History (Updated 10/02/22 @ 20:[address] Adalberto Willingham MD) H/O total knee replacement History of cardiac radiofrequency ablation (~2000) History of incisional hernia repair History of removal of ovarian cyst History of right hip hemiarthroplasty Hx of cataract surgery Hx of hernia repair Hx of kyphoplasty Social History (Updated 10/02/22 @ 20:[address] Adalberto Willingham MD) household members: none Smoking Status: Never smoker alcohol intake: never substance use type: does not use what type of physical activity do you participate in: none ROS Constitutional Constitutional: Denies chills, fever(s) or weight gain ENT HEENT: Denies headache(s), nasal congestion or nasal discharge Cardiovascular Cardiovascular: Denies chest pain or palpitations Respiratory/Chest Respiratory/Chest: Denies cough, excessive phlegm production or shortness of breath with exertion Gastrointestinal Gastrointestinal: Denies abdominal pain, nausea or vomiting Genitourinary Genitourinary: Denies dysuria Musculoskeletal Musculoskeletal: Denies joint pain or joint swelling Integumentary Integumentary: Denies rash or wounds Neurologic Neurologic: Denies focal weakness, numbness or tingling Psychiatric Psychiatric: Denies anxiety, auditory hallucinations, depression, homicidal ideation or suicidal ideation Physical Exam Const alert General Appearance: cooperative HEENT normocephalic Eyes PERRL and EOMs intact bilaterally Neck supple, no JVD and no carotid bruits Resp normal respiratory effort, normal air movement and clear to auscultation bilaterally Cardio regular rate and regular rhythm GI normal to inspection, nondistended, normoactive bowel sounds, non-tender and non-distended Extremity normal capillary refill General Extremity: Negative for edema Skin no rashes or lesions noted General Skin Exam: no breakdown Psych affect normal Appearance: appropriate Assessment & Plan Assessment/Plan (1) Debility: (2) Fracture of hip, right, closed: (3) History of right hip hemiarthroplasty: (4) Chronic diarrhea: (5) Hypophosphatemia: (6) Rheumatoid arthritis: (7) Osteoporosis: (8) Osteoarthritis: (9) GERD (gastroesophageal reflux disease): PLAN: Plan 82 year old female with below past medical history hospitalized for right hip fracture, underwent cemented right hip hemiarthroplasty with Dr. Preston, complicated by low phosphorous, admitted to TCU with debility, here for rehabilitation, strengthening, prior to discharge home alone. * Debility - PT/OT. * Pain - Tylenol 1000mg q8, Tramadol 50mg q6h prn pain (1-5), Oxycodone 5mg q4h prn pain (6-10). * Bowel - Miralax 17gm daily, senna/colace 2 tablets bid, Dulcolax 10mg daily prn. * Adult immunization - Administer prevnar 20, covid19, flu vaccine as appropriate. * DVT prophylaxis - Lovenox 30mg sc daily thru 11/01/2022. * Osteoporosis - Alendronate 70mg qweek. * Vitamin C deficiency - Vitamin C 500mg daily. * Calcium deficiency - TUMS 500mg tidcm. * Osteoarthritis - Celebrex 200mg daily. * Folate deficiency - Folic acid 1 mg daily. * Nutrition - MVI 3 tablets daily. * GERD - Pantoprazole 40mg daily. * Rheumatoid arthritis - Prednisone 5mg daily. * Muscle spasm - Tizanidine 2mg q8h prn. * Vitamin D deficiency - D3 25mcg daily.
[2022-10-02 22:00] VITALS: BP 119/53; PULSE 82; PULSE 95; RESP 14; TEMP 36.2; O2SAT 92
[2022-10-02] MEDS: Acetaminophen 500 MG Tablet 1000 MG PO (22:00)
[2022-10-02 23:13] VITALS: BMI 19.8
[2022-10-03] MEDS: oxyCODONE 5 MG Tablet PO ×2 (06:01→11:39)
[2022-10-03] MEDS: Menthol/Lanolin/Calamine/Znox 113 GM Tube 1 APPLIC TOPICAL ×2 (06:01→17:31)
[2022-10-03] MEDS: Pantoprazole Sodium 40 MG Tablet PO (06:03)
[2022-10-03] MEDS: Enoxaparin 30 MG/0.3 ML Syringe SC (06:03)
[2022-10-03] MEDS: Bisacodyl 5 MG Tablet 10 MG PO (06:03)
[2022-10-03] MEDS: Acetaminophen 500 MG Tablet 1000 MG PO ×3 (06:04→20:22)
[2022-10-03] MEDS: Senna/Docusate Sodium 1 Tablet 2 TABLET PO ×2 (06:04→17:30)
[2022-10-03] MEDS: Cholecalciferol (VIT D3) 25 MCG TABLET (1,000 UNITS) 50 MCG PO (06:05)
[2022-10-03] MEDS: Ascorbic Acid 500 MG Tablet PO (06:05)
[2022-10-03 06:26] LABS: Absolute Lymphocyte Count 0.51 X10^3/uL (0.83-4.51); Absolute Neutrophil Count 7.2 X10^3/uL (2.0-7.7); Basophil# 0.03 X10^3/uL; Basophil% 0.3 % (0-1); Eosinophil# 0.16 X10^3/uL; Eosinophils% 1.8 % (0-5); Hematocrit 28.2 % (37-47); Hemoglobin 8.8 g/dL (12.0-15.0); Lymphocyte # 0.51 X10^3/ul (0.83-4.51); Lymphocyte % 5.6 % (19-41); Mean Corp Hgb Conc 31.2 g/dL (32-36); Mean Corpuscular Hgb 30.9 pg (27.0-32.0); Mean Corpuscular Volume 98.9 fL (81-99); Mean Platelet Vol. 12.1 fl (6.2-12.0); Monocyte# 1.06 X10^3/uL; Monocyte% 11.7 % (0-10); NRBC Flagged by Analyzer 0 % (0-5); Neutrophil # 7.22 X10^3/uL (2.7-7.7); Neutrophil % 79.5 % (47-70); POSITIVE DIFFERENTIAL YES; Platelet Count 244 K/mm3 (150-450); RBC Distribution Width CV 15.1 % (11.6-14.6); RBC Distribution Width SD 54.8 fl (35.1-43.9); Red Blood Count 2.85 M/mm3 (4.2-5.4); White Blood Count 9.1 K/mm3 (4.4-11.0)
[2022-10-03 06:39] LABS: Differential Indicated SCAN CRITERIA MET
[2022-10-03 06:41] LABS: Anion Gap 4 (5-15); BUN 21 mg/dL (7-18); BUN/Creat Ratio 41.9 RATIO (10-20); Calcium,Total 8.6 mg/dL (8.5-10.1); Chloride 111 mmol/L (98-107); EST Glomerular Filtration Rate 125 mL/min (>60); Est Glom Filt Rate - Afr Amer 151 mL/min (>60); Glucose 99 mg/dL (74-106); Potassium 4.3 mmol/L (3.5-5.1); Sodium Level 142 mmol/L (136-145)
--- NOTE | 2022-10-03 06:56 | NURSING ---
Pt bladder scanned at 428mL , Straight cathed per order for 450mL. Residual amount 58mL.RNs aware.
[2022-10-03 07:14] LABS: Differential Comment SCANNED
[2022-10-03] MEDS: Folic Acid 1 MG Tablet PO (09:17)
[2022-10-03] MEDS: predniSONE 5 MG Tablet PO (09:17)
[2022-10-03] MEDS: Multivitamins,Therapeutic Tablet 3 TABLET PO (09:17)
[2022-10-03] MEDS: Calcium Carbonate 500 MG Tablet PO ×3 (09:17→17:30)
[2022-10-03] MEDS: Polyethylene Glycol 3350 17 GM PACKET PO (09:19)
--- NOTE | 2022-10-03 09:24 | NURSING ---
Daughter brought in Butrans patch. This Nurse and Bernie RN counted in front of daughter. 2 Butrans patches noted and locked in medication room.
[2022-10-03] MEDS: traMADol 50 MG Tablet PO (09:28)
[2022-10-03] MEDS: Tuberculin,Purif.prot.deriv. 50 TU/ML Vial 0.1 ML ID (11:34)
--- NOTE | 2022-10-03 12:32 | CASEMGMT ---
Social Work Met with patient to complete initial assessment. Introduced self and role. Verified contacts. Discussed code status and MOLST form. Pt confirms full code. MOLST placed in chart. Educated to [facility] insurance with NRD 10/07 and continued stay is not guaranteed. Pt's goal is to return home close to PLOF , adult grandson can assist as needed. SW to continue to follow for DC planning. Beliks Reaves, ORTHOPAEDIC TECHNOLOGIST THERAPEUTIC SPECIALIST
--- NOTE | 2022-10-03 15:27 | SP.MBSS_ITS ---
Modified Barium Swallow - Patient Information Study Date: 10/03/22 Study Time: 14:30 Direct Billable Minutes: 180 Total Minutes procedure & reportin Diagnosis: GERD K21.9, DEBILITY R53.81 Referring Physician: Adalberto Willingham Chi Reason for Referral: Objectively assess swallow function, risk for aspiration, and determine recommendations for least restrictive diet textures and compensatory strategies to improve safety of swallow. Medical History: Huyen Lakhani is an 82-year-old female with PMH including arthritis, gastric reflux, hx of hiatal hernia (SEE EMR for full PMH) who came to ED with her daughter after fall in the morning on the right side, hitting her R hip and forehead. No LOC. She also has diarrhea ongoing since August this year. In ED, RLE CT scan which showed complete oblique fracture through right femoral neck with mild displacement. She was admitted and underwent cemented right hip hemiarthroplasty 09/30/2022. She was referred for ST consult for swallowing difficulty. Per pt and daughter, Cassy, the patient has history of swallowing difficulty for the past nine months characterized by sensation of foods caught in throat and chest, coughing episodes on foods (sometimes drinks), occ sensation of choking (however, never required the Heimlich), and occ regurgitation of foods. She feels full very quickly. Associated with these symptoms is at least 30lbs of unintentional weight loss in the past ~9 months. She has difficulty swallowing harder meats, such as hamburger, chicken breast, pork chop. Current Diet Ordered: Regular / Thin Liquids Dentition: WNL, Missing Teeth Mental Status: WNL Respiratory Status: Oxygenating on Room Air - Penetration-Aspiration Scale Penetration-Aspiration Scale: OBJECTIVE ASSESSMENT OF SWALLOW FUNCTION (QUANTITATIVE ? PER TRIAL): PENETRATION / ASPIRATION SCALE (CADENA): 1 = does not enter airway 2 = enters airway/above vocal folds/ejected 3 = enters airway/above vocal folds/not ejected 4 = enters airway/contacts vocal folds/ejected 5 = enters airway/contacts vocal folds/not ejected 6 = enters airway/below vocal folds/ejected 7 = enters airway/below vocal folds/not ejected despite effort 8 = enters airway/below vocal folds/no effort VIDEOFLOROSCOPIC SCALE SCORE (CADENA): Grade I = aspiration of material that has penetrated into the laryngeal vestibule, intact cough reflex Grade II = aspiration < 10 % of the bolus, intact cough reflex Grade III = aspiration of < 10 % of the bolus, reduced cough reflex or aspiration of > 10 % of the bolus, intact cough reflex Grade IV = aspiration of > 10 % of the bolus, reduced cough reflex - Penetration-Aspiration Scale Score Thin Liquid via teaspoon Result: 1= does not enter airway Thin Liquid via teaspoon Trial 2 Result: 1= does not enter airway Thin Liquid via small single sip from cup Result: 1= does not enter airway Thin Liquid via small single sip from cup Trial 2 Result: 1= does not enter airway [place] Thick Liquid via small single sip from cup Result: 1= does not enter airway Honey Thick Liquid via small single sip from cup Result: 1= does not enter airway Pudding Result: 1= does not enter airway Pudding Trial 2 Result: 1= does not enter airway Cookie Result: 1= does not enter airway - Oral Phase Labial Seal: No Labial Escape Tongue Control During Bolus Hold: Escape to lateral buccal cavity/floor of mouth Bolus Preparation/Mastication: Slow prolonged chewing/mashing with complete recollection Bolus Transport/Lingual Motion: Slowed tongue motion Oral Residue: Residue collection on oral structures - Pharyngeal Phase Initiation of Pharyngeal Swallow: Bolus head in valleculae Soft Palate Elevation: No bolus between soft palate and pharyngeal wall Laryngeal Elevation: Comp. Superior move thyroid cart w/comp. apprx arytenoid cart-epig pet Anterior Hyoid Excursion: Complete anterior movement Epiglottic Movement: Complete inversion Laryngeal Vestibule Closure at Height of Swallow: Complete; no air/contrast in laryngeal vestibule Pharyngeal Stripping Wave: Present - diminished Pharyngoesophageal Segment Opening: Parital distension and partial duration; parital obstruction of flow Tongue Base Retraction: No contrast between tongue base and posterior pharyngeal wall Pharyngeal Residue: Collection of residue within or on pharyngeal structures - Esophageal Phase Esophageal Clearance: Esophageal retention - Treatment Strategies Effects of treatment strategies attemped:: double swallows = not effective to clear retention liquid wash = not effective to clear retention - Diagnosis/Impression Diagnosis: oral phase dysphagia (R13.11), esophageal dysphagia (R13.14) Impression: Oral phase primarily marked by... - mastication insufficiency - swallow onset delay w/ various consistencies - up to 12-15s in length w/ pudding-thick consistency - poor AP transit w/ patient tilting head back to propel bolus - oral residue remaining in oral cavity requiring multiple swallows to clear - patient reports using effort to initiate swallow PO as seen during swallow study No penetration or aspiration observed throughout study. Patient is at high risk of reflux aspiration. CP bar at the level of C6 with outpouching above. Contrast collecting in pouch. PERPETUAL INVENTORY CLERK is suspecting Zenker's diverticulum. - Recommendations Diet: Regular Textures, Thin Liquids Compensatory Strategies: Small Bites, Small Sips, No Straws, Slow Rate, Multiple Swallows, Alternate bites/solids and sips/liquids, Sitting upright, Remain sitti ng upright for 30 minutes after PO intake Recommend Repeat Modified Barium Swallow: Yes Need for Skilled Speech Therapy Services: Yes Comment: Will recommend the patient for dysphagia therapy to address deficits in oropharyngeal swallow function. The patient would benefit from thorough education regarding diet recommendations and recommended compensatory strategies specifically GERD precautions. Recommended Referrals: GI Consult - PERPETUAL INVENTORY CLERK contacted Dr. Matthew for further intervention or if patient should be seen by ENT., ENT Consult Education Completed: 1. Described result of evaluation., 2. Pt understands evaluation & agrees with goals and treatment plan. - Status Active ST Patient: Active - Contact Information [facility] Speech Therapy:: Gladys Alejandro M.A., CCC-PERPETUAL INVENTORY CLERK Speech-Language Pathologist [facility] [address] [place] [address] [email or web address] [phone] 10/03/22 17:15
[2022-10-03 16:00] VITALS: BP 105/53; PULSE 73; RESP 18; TEMP 36.2; O2SAT 94
[2022-10-03] MEDS: Ensure Plus High Protein 120 ML LIQUID PO (20:24)
[2022-10-03] MEDS: 0.9% Saline Lock 10 ML Syringe IV (20:26)
[2022-10-03 22:30] VITALS: PULSE 95; RESP 14; O2SAT 94
[2022-10-04] MEDS: Fluconazole 100 MG Tablet PO (05:11)
[2022-10-04] MEDS: Menthol/Lanolin/Calamine/Znox 113 GM Tube 1 APPLIC TOPICAL ×2 (05:11→17:31)
[2022-10-04] MEDS: Bisacodyl 5 MG Tablet 10 MG PO (05:12)
[2022-10-04] MEDS: Senna/Docusate Sodium 1 Tablet 2 TABLET PO ×2 (05:12→17:30)
[2022-10-04] MEDS: Acetaminophen 500 MG Tablet 1000 MG PO ×3 (05:12→21:50)
[2022-10-04] MEDS: Pantoprazole Sodium 40 MG Tablet PO (05:13)
[2022-10-04] MEDS: Ascorbic Acid 500 MG Tablet PO (05:13)
[2022-10-04] MEDS: Cholecalciferol (VIT D3) 25 MCG TABLET (1,000 UNITS) 50 MCG PO (05:13)
[2022-10-04] MEDS: Enoxaparin 30 MG/0.3 ML Syringe SC (05:13)
[2022-10-04] MEDS: Ensure Plus High Protein 120 ML LIQUID PO ×4 (05:19→21:51)
[2022-10-04] MEDS: Folic Acid 1 MG Tablet PO (08:02)
[2022-10-04] MEDS: Multivitamins,Therapeutic Tablet 3 TABLET PO (08:02)
[2022-10-04] MEDS: Calcium Carbonate 500 MG Tablet PO ×3 (08:03→17:30)
[2022-10-04] MEDS: predniSONE 5 MG Tablet PO (08:03)
--- NOTE | 2022-10-04 10:53 | NURSING ---
Alexis patch changed. Old patch removed from right upper chest and wasted with RN. New patch applied to left upper chest per pt request
[2022-10-04 10:55] VITALS: PULSE 74; RESP 16; O2SAT 98
[2022-10-04 14:19] VITALS: BP 117/59; PULSE 76; RESP 16; TEMP 36.3; O2SAT 96
[2022-10-04] MEDS: 0.9% Saline Lock 10 ML Syringe IV (14:23)
[2022-10-04] MEDS: traMADol 50 MG Tablet PO (14:23)
[2022-10-04] MEDS: tiZANidine HCl 2 MG Tablet PO (17:30)
[2022-10-05] MEDS: Ensure Plus High Protein 120 ML LIQUID PO ×4 (06:09→21:39)
[2022-10-05] MEDS: Enoxaparin 30 MG/0.3 ML Syringe SC (06:09)
[2022-10-05] MEDS: Fluconazole 100 MG Tablet PO (06:09)
[2022-10-05] MEDS: Bisacodyl 5 MG Tablet 10 MG PO (06:09)
[2022-10-05] MEDS: Cholecalciferol (VIT D3) 25 MCG TABLET (1,000 UNITS) 50 MCG PO (06:10)
[2022-10-05] MEDS: traMADol 50 MG Tablet PO (06:10)
[2022-10-05] MEDS: Ascorbic Acid 500 MG Tablet PO (06:10)
[2022-10-05] MEDS: Acetaminophen 500 MG Tablet 1000 MG PO ×3 (06:10→21:39)
[2022-10-05] MEDS: Senna/Docusate Sodium 1 Tablet 2 TABLET PO ×2 (06:10→17:04)
[2022-10-05] MEDS: Pantoprazole Sodium 40 MG Tablet PO (06:10)
[2022-10-05] MEDS: Menthol/Lanolin/Calamine/Znox 113 GM Tube 1 APPLIC TOPICAL ×2 (06:18→17:04)
[2022-10-05 06:55] VITALS: BP 147/67; PULSE 72
[2022-10-05] MEDS: Folic Acid 1 MG Tablet PO (07:44)
[2022-10-05] MEDS: Calcium Carbonate 500 MG Tablet PO ×3 (07:44→17:04)
[2022-10-05] MEDS: predniSONE 5 MG Tablet PO (07:44)
[2022-10-05] MEDS: Multivitamins,Therapeutic Tablet 3 TABLET PO (07:44)
[2022-10-05 13:57] VITALS: BP 121/57; PULSE 74; RESP 16; TEMP 36.5; O2SAT 96
[2022-10-05 20:00] VITALS: PULSE 74; RESP 14; O2SAT 94
[2022-10-06] MEDS: Ascorbic Acid 500 MG Tablet PO (06:19)
[2022-10-06] MEDS: Enoxaparin 30 MG/0.3 ML Syringe SC (06:19)
[2022-10-06] MEDS: Cholecalciferol (VIT D3) 25 MCG TABLET (1,000 UNITS) 50 MCG PO (06:19)
[2022-10-06] MEDS: Acetaminophen 500 MG Tablet 1000 MG PO ×3 (06:21→19:59)
[2022-10-06] MEDS: traMADol 50 MG Tablet 75 MG PO (06:21)
[2022-10-06] MEDS: Fluconazole 100 MG Tablet PO (06:21)
[2022-10-06] MEDS: Pantoprazole Sodium 40 MG Tablet PO (06:21)
[2022-10-06] MEDS: Ensure Plus High Protein 120 ML LIQUID PO ×4 (06:25→20:00)
[2022-10-06] MEDS: Menthol/Lanolin/Calamine/Znox 113 GM Tube 1 APPLIC TOPICAL ×2 (06:25→17:04)
[2022-10-06] MEDS: Multivitamins,Therapeutic Tablet 3 TABLET PO (08:32)
[2022-10-06] MEDS: Calcium Carbonate 500 MG Tablet PO ×3 (08:33→17:02)
[2022-10-06] MEDS: Folic Acid 1 MG Tablet PO (08:34)
[2022-10-06] MEDS: predniSONE 5 MG Tablet PO (08:34)
[2022-10-06 14:42] VITALS: BP 108/67; PULSE 83; RESP 18; TEMP 36.4; O2SAT 95
[2022-10-07] MEDS: Bisacodyl 5 MG Tablet 10 MG PO (05:19)
[2022-10-07] MEDS: Acetaminophen 500 MG Tablet 1000 MG PO ×3 (05:19→20:32)
[2022-10-07] MEDS: Cholecalciferol (VIT D3) 25 MCG TABLET (1,000 UNITS) 50 MCG PO (05:19)
[2022-10-07] MEDS: Pantoprazole Sodium 40 MG Tablet PO (05:19)
[2022-10-07] MEDS: Ascorbic Acid 500 MG Tablet PO (05:19)
[2022-10-07] MEDS: Ensure Plus High Protein 120 ML LIQUID PO ×4 (05:20→20:31)
[2022-10-07] MEDS: Senna/Docusate Sodium 1 Tablet 2 TABLET PO (05:20)
[2022-10-07] MEDS: Enoxaparin 30 MG/0.3 ML Syringe SC (05:21)
[2022-10-07] MEDS: Menthol/Lanolin/Calamine/Znox 113 GM Tube 1 APPLIC TOPICAL ×2 (05:25→17:04)
[2022-10-07] MEDS: Multivitamins,Therapeutic Tablet 3 TABLET PO (07:37)
[2022-10-07] MEDS: predniSONE 5 MG Tablet PO (07:37)
[2022-10-07] MEDS: Calcium Carbonate 500 MG Tablet PO ×3 (07:38→17:02)
[2022-10-07] MEDS: Folic Acid 1 MG Tablet PO (07:38)
--- NOTE | 2022-10-07 09:58 | PCM.PN.DRR ---
TCU RX Drug Regimen Review Subjective: TCU Admission. 82 YOF presented to the ER with a fall. Hospitalized for right hip fracture, underwent cemented right hip hemiarthroplasty with Dr. Preston, complicated by low phosphorous. Admitted to TCU with debility for strengthening and rehabilitation. Objective: Allergies amoxicillin trihydrate [From Trimox] Allergy (Intermediate, Verified 09/29/22 14:48) Rash Penicillins Allergy (Verified 09/29/22 14:49) Swelling Current Medications Generic Name Dose Route Start Last Admin Trade Name Freq PRN Reason Stop Dose Admin Acetaminophen 1,000 mg 10/02/22 22:00 10/07/22 05:19 Acetaminophen 500 Mg Tablet PO 1,000 mg Q8 KALI Administration Alendronate Sodium 70 mg 10/08/22 06:00 Alendronate Sodium 70 Mg Tablet PO QWEEK KALI Ascorbic Acid 500 mg 10/03/22 06:00 10/07/22 05:19 Ascorbic Acid 500 Mg Tablet PO 500 mg DAILY KALI Administration Bisacodyl 10 mg 10/03/22 06:00 10/07/22 05:19 Bisacodyl 5 Mg Tablet PO 10 mg DAILY [facility] Administration Buprenorphine 1 each 10/04/22 10:00 10/04/22 10:36 Buprenorphine 5mcg/Hr Patch TD 1 each QWEEK [facility] Administration Calamine/Phenol 1 applic 10/03/22 06:00 10/07/22 05:25 Menthol/Lanolin/Calamine/Znox 113 Gm Tube TOPICAL 1 applic BID [facility] Administration Protocol Calcium Carbonate 500 mg 10/03/22 07:45 10/07/22 07:38 Calcium Carbonate 500 Mg Tablet PO 500 mg TIDCM KALI Administration Celecoxib 200 mg 10/02/22 19:07 Celecoxib 200 Mg Capsule PO DAILY PRN Pain Cholecalciferol 50 mcg 10/03/22 06:00 10/07/22 05:19 Cholecalciferol (Vit D3) 25 Mcg Tablet (1,000 Units) PO 50 mcg DAILY KALI Administration Enoxaparin Sodium 30 mg 10/03/22 06:00 10/07/22 05:21 Enoxaparin 30 Mg/0.3 Ml Syringe SC 11/01/22 06:01 30 mg DAILY KALI Administration Folic Acid 1 mg 10/03/22 08:00 10/07/22 07:38 Folic Acid 1 Mg Tablet PO 1 mg BREAKFAST KALI Administration Multivitamins 3 tablet 10/03/22 08:00 10/07/22 07:37 Multivitamins,Therapeutic Tablet PO 3 tablet DAILYCM KALI Administration Nutritional Formula (Lactose Free) 120 ml 10/03/22 06:00 10/07/22 05:20 Ensure Plus High Protein 120 Ml Liquid PO 120 ml 4X/DAY KALI Administration Pantoprazole Sodium 40 mg 10/03/22 06:00 10/07/22 05:19 Pantoprazole Sodium 40 Mg Tablet PO 40 mg DAILY KALI Administration Polyethylene Glycol 17 gm 10/03/22 06:00 10/07/22 05:25 Polyethylene Glycol 3350 17 Gm Packet PO Not Given DAILY KALI Prednisone 5 mg 10/03/22 08:00 10/07/22 07:37 Prednisone 5 Mg Tablet PO 5 mg DAILYCM KALI Administration Senna/Docusate Sodium 2 tablet 10/03/22 06:00 10/07/22 05:20 Senna/Docusate Sodium 1 Tablet PO 2 tablet BID KALI Administration Sodium Chloride 10 - 40 ml 10/03/22 00:07 10/04/22 14:23 0.9% Saline Lock 10 Ml Syringe IV 10 ml UD PRN Administration SALINE FLUSH Tizanidine HCl 2 mg 10/02/22 19:07 10/04/22 17:30 Tizanidine Hcl 2 Mg Tablet PO 2 mg Q8H PRN PRN Administration muscle spasm Tramadol HCl 75 mg 10/05/22 17:06 10/06/22 06:21 Tramadol 50 Mg Tablet PO 75 mg Q6H PRN PRN Administration Pain Score 1-5 Tuberculin PPD 0.1 ml 10/10/22 10:00 Tuberculin,Purif.Prot.Deriv. 50 Tu/Ml Vial ID 10/10/22 10:01 X1 ONE Problem List (Last Reviewed 10/02/22 @ 20:[address] Adalberto Willingham MD) GERD (gastroesophageal reflux disease) (Acute) Osteoarthritis (Acute) Osteoporosis (Acute) Rheumatoid arthritis (Acute) Hypophosphatemia (Acute) Chronic diarrhea (Chronic) History of right hip hemiarthroplasty (Acute) Debility (Acute) Fracture of hip, right, closed (Acute) Vital Signs Temp Pulse Resp BP Pulse Ox O2 Del Method 97.5 F L 83 18 108/67 95 Room Air 10/06/22 14:42 10/06/22 14:42 10/06/22 14:42 10/06/22 14:42 10/06/22 14:42 10/06/22 14:42 Oxygen Delivery Method Room Air Weight: 49.158 kg Body Mass Index (BMI) 19.8 Sodium 142 mmol/L (136-145) 10/03/22 05:17 Potassium 4.3 mmol/L (3.5-5.1) 10/03/22 05:17 Chloride 111 mmol/L (98-107) H 10/03/22 05:17 Carbon Dioxide 27.0 mmol/L (21.0-32.0) 10/03/22 05:17 Anion Gap 4 (5-15) L 10/03/22 05:17 BUN 21 mg/dL (7-18) H 10/03/22 05:17 Creatinine 0.50 mg/dL (0.55-1.02) L 10/03/22 05:17 Est GFR (MDRD) Af Amer 151 mL/min (>60) 10/03/22 05:17 Est GFR (MDRD) Non-Af 125 mL/min (>60) 10/03/22 05:17 BUN/Creatinine Ratio 41.9 RATIO (10-20) H 10/03/22 05:17 Glucose 99 mg/dL (74-106) 10/03/22 05:17 Assessment/Plan: 1. Pain: acetaminophen 1000mg PO Q8, buprenorphine patch 5mcg/hr 1 patch topical weekly and tramadol 75mg PO Q6H PRN pain 1-10. Resident has had 4 doses of tramadol for pain of 5-7 in the hip. Please continue to monitor for increased pain, constipation, PRN usage, rash and respiratory depression. 2. Bowel: Miralax 17gm PO daily, senna/docusate 2T PO BID and bisacodyl 10mg PO daily. Please consider changing Miralax to PRN as resident has refused 4/5 doses. Thanks. Please continue to monitor for constipation. Last documented bowel movement from 10/06. 3. DVT prophylaxis: enoxaparin 30mg SC daily thru 11/03/22. Please continue to monitor for S/S of bleeding/DVT, hemoglobin (last 8.8g/dL), platelets (last 244,000) and renal function. 4. Osteoporosis: alendronate 70mg PO weekly. Please continue to monitor for jaw pain, GI side effects and renal function. Please administer alendronate first thing in the morning on an empty stomach with a full glass of water and remain upright for 1 hour after dose. 5. GERD: pantoprazole 40mg PO daily. Please continue to monitor for S/S of GERD and diarrhea (BEERs medication). 6. Rheumatoid arthritis: prednisone 5mg PO daily. Please continue to monitor for S/S of RA, glucose and trouble sleeping. 7. Osteoarthritis: celecoxib 200mg PO daily PRN pain 1-10. Resident had not had any doses. Please continue to monitor for pain, PRN usage and S/S of osteoarthritis. 8. Muscle spasm: tizanidine 2mg PO Q8H PRN muscle spams. Resident has had 1 dose so far. Please continue to monitor for muscle spasms, PRN usage and BP (last 108/67) 9. Nutrition: multivitamin 3T PO DAILYCM. Please continue to monitor. 10. Vitamin C/vitamin D/calcium/folate deficiencies: ascorbic acid 500mg PO daily, calcium carbonate 500mg PO TIDCM, foliac acid 1mg PO daily and cholecalciferol 25mcg PO daily. Please continue to monitor calcium (last 8.6mg/dl) and vitamin D (last 09/30/22). Assessment/Plan for indications treated with psychotropic medications: None Medical chart and medication regimen reviewed. The following medication irregularities or issues were identified: 1. Miralax 17gm PO daily. Please consider changing Miralax to PRN as resident has refused 4/5 doses. Thanks. Date of Note:: 10/07/22
[2022-10-07 10:00] VITALS: PULSE 109; RESP 16; O2SAT 92
--- NOTE | 2022-10-07 10:25 | NURSING ---
Dr. Matthew notified of GI consult. He reviewed chart and says patient needs to see ENT. Received order for ENT consult and set up appointment with Fernanda LANGE. Patient aware of date and time, daughter to transport her.
[2022-10-07 11:25] VITALS: BMI 21.5
--- NOTE | 2022-10-07 12:35 | NURSING ---
Butrans patch confirmed on left chest/breast
--- NOTE | 2022-10-07 14:23 | NURSING ---
Offered bivalent covid booster and provided education on vaccine. Patient refuses at this time.
[2022-10-07 14:32] VITALS: BP 112/63; PULSE 82; RESP 16; TEMP 36.6; O2SAT 99
--- NOTE | 2022-10-07 17:52 | EX.PCM.CON.G ---
HPI Consult Data Date of Consult: 10/07/22 HPI Narrative Reason for Consultation: dysphagia HPI Narrative: ESTEBAN VALERIO, is a 82 F with a history of rheumatoid arthritis, Sjogren's syndrome and possibly scleroderma and she is on methotrexate, prednisone, Xeljanz, folic acid and Celebrex by her real estate appraiser Dr. Church.? Bilateral hand, wrist and small joints deformity.?history of palpitations, PACs/PVCs, SVT status post EPS/RFA in 2000, and mitral valve prolapse. I was asked to see her after she underwent a swallowing test and exhibited esophageal dysphagia and oropharyngeal dysphagia with regurgitation and double swallowing. She says that she has had trouble swallowing for the last 10 years. She was diagnosed with a Zenker's diverticulum multiple years ago. She says it has been really bad regarding her swallowing solid foods including pills and liquids over the last 6 months. [facility] Medical History (Updated 10/07/22 @ 17:[address] Gaona Friend, DO) Arthritis Back pain Cardiology follow-up encounter Easy bruising Gastric reflux History of hiatal hernia History of irregular heartbeat History of pain when walking History of steroid therapy Injury of back Irregular heart beat Kidney stones MVP (mitral valve prolapse) Normal stress echocardiogram Post-menopausal Premature atrial contraction Premature ventricular contraction Rheumatoid arthritis Sleep apnea Supraventricular tachycardia Wears contact lenses Wears glasses Home Medications methotrexate sodium (PF) 25 mg/mL injection solution 75 mg IM TH Check with primary doctor 11/29/13 [History Last Taken 09/16/21] prednisone 5 mg tablet 5 mg PO DAILY Check with primary doctor 11/29/13 [History Last Taken 07/02/21] alendronate 70 mg tablet (Fosamax) 70 mg PO QWEEK Check with primary doctor 11/10/18 [History Last Taken 10/01/22 12:05] folic acid 400 mcg tablet 0.8 mg PO DAILY@0800 Supplement 11/10/18 [History Last Taken Unknown] celecoxib 200 mg capsule 200 mg PO DAILY PRN Pain 12/12/20 [History Last Taken Unknown] multivitamin 3 tab PO DAILY Supplement 06/25/21 [History Last Taken Unknown] tofacitinib 5 mg tablet (Xeljanz) 5 mg PO BID Check with primary doctor 06/25/21 [History Last Taken 09/16/21] buprenorphine 10 mcg/hour weekly transdermal patch (Butrans) 5 mcg topical QWEEK Check with primary doctor 09/16/21 [History Last Taken 09/27/22] ascorbic acid (vitamin C) 500 mg capsule 500 mg PO DAILY Supplement 05/27/22 [History Last Taken Unknown] cholecalciferol (vitamin D3) 50 mcg (2,000 unit) capsule 50 mcg PO DAILY Supplement 05/27/22 [History Last Taken Unknown] acetaminophen 500 mg tablet 1,000 mg PO Q8 Pain 10/02/22 [History Last Taken Unknown] calcium carbonate 200 mg calcium (500 mg) chewable tablet 500 mg PO TIDCM Check with primary doctor 10/02/22 [History Last Taken Unknown] enoxaparin 30 mg/0.3 mL subcutaneous syringe 30 mg subcut DAILY Anticoagulant 10/02/22 [History Last Taken Unknown] lansoprazole 30 mg capsule,delayed release (Prevacid) 30 mg PO DAILY Check with primary doctor 10/02/22 [History Last Taken Unknown] tamsulosin 0.4 mg capsule 0.4 mg PO DAILY@1730 Bladder 10/02/22 [History Last Taken Unknown] tizanidine 2 mg tablet 2 mg PO Q8H PRN PRN muscle spasm #0 tabs 10/02/22 [Rx Last Taken Unknown] tramadol 50 mg tablet 50 mg PO Q8H PRN pain #3 tabs 10/02/22 [Rx Last Taken Unknown] Allergy/AdvReac Type Severity Reaction Status Date / Time amoxicillin trihydrate Allergy Intermediate Rash Verified 09/29/22 14:48 [From Trimox] Penicillins Allergy Swelling Verified 09/29/22 14:49 Family History Father CAD (coronary artery disease) CVA (cerebral vascular accident) Hypertension Heart disease Brother CAD (coronary artery disease) Mother Osteoporosis Surgical History (Updated 10/02/22 @ 20:[address] Adalberto Willingham MD) H/O total knee replacement History of cardiac radiofrequency ablation (~2000) History of incisional hernia repair History of removal of ovarian cyst History of right hip hemiarthroplasty Hx of cataract surgery Hx of hernia repair Hx of kyphoplasty Social History (Updated 10/02/22 @ 20:[address] Adalberto Willingham MD) household members: none Smoking Status: Never smoker alcohol intake: never substance use type: does not use what type of physical activity do you participate in: none ROS Constitutional Constitutional: Denies chills, fever(s) or weight gain ENT HEENT: Denies headache(s), nasal congestion or nasal discharge Cardiovascular Cardiovascular: Denies chest pain or palpitations Respiratory/Chest Respiratory/Chest: Denies cough, excessive phlegm production or shortness of breath with exertion Gastrointestinal Gastrointestinal: Denies abdominal pain, nausea or vomiting Genitourinary Genitourinary: Denies dysuria Musculoskeletal Musculoskeletal: Denies joint pain or joint swelling Integumentary Integumentary: Denies rash or wounds Neurologic Neurologic: Denies focal weakness, numbness or tingling Psychiatric Psychiatric: Denies anxiety, auditory hallucinations, depression, homicidal ideation or suicidal ideation Physical Exam Const alert General Appearance: cooperative HEENT normocephalic Eyes PERRL and EOMs intact bilaterally Neck supple, no JVD and no carotid bruits Resp normal respiratory effort, normal air movement and clear to auscultation bilaterally Cardio regular rate and regular rhythm GI normal to inspection, nondistended, normoactive bowel sounds, non-tender and non-distended Extremity normal capillary refill General Extremity: Negative for edema Skin no rashes or lesions noted General Skin Exam: no breakdown Psych affect normal Appearance: appropriate Medical Records Data Medical Nutrition Assessment Dietitian: Malnutrition Criteria Met Start: 10/03/22 14:22 Freq: Status: Active Protocol: Document 10/03/22 14:22 [facility] (Rec: 10/03/22 14:23 [facility] [id number]) Nutrition Malnutrition Evidence of Malnutrition Exists Yes Malnutrition (severe): Chronic Evidenced By Suboptimal Energy Intake ( Severe),Weight Loss (Severe), Physical Changes (Moderate) Clinical Problem Chronic Disease or Condition Related Malnutrition Etiology severe related to inadequate energy intake Signs/Symptoms as evidenced by 22.6% unintended wt loss and po intake meeting <50% of estimated nutritional needs x 3 years; 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 Status Active Problem Recommendation Dietitian Recommendations/Changes Continue liberal regular diet d/t signs/symptoms of malnutrition. Try chocolate CIB w/ dinner tonight - if res likes, then change to CIB w/ meals tid and d/c Ensure [place] High Protein at medpass. Rec consider appetite stimulant to help encourage increased po intake at meals. Lab / Micro Data Result Diagrams: 10/03/22 05:17 10/03/22 05:17 Assessment & Plan Assessment/Plan (1) Dysphagia: PLAN: The differential diagnosis for progressive dysphagia does include Sjogren syndrome, cricopharyngeal achalasia in the setting of a Zenker's diverticulum, esophageal dysmotility disorder, Alexa esophagitis secondary to prednisone, methotrexate and Xeljanz, esophageal ring or eosinophilic esophagitis with multiple esophageal rings. She should undergo an upper endoscopy to evaluate upper GI tract. If there is no clear abnormality other than the diverticulum then she may need a esophageal manometry. We also discussed possibility of doing Botox therapy and she has a scheduled appointment to see ENT on 10/20/2022. Charges/Coding Visit Charges Inpatient E&M: 16780 SNF Init L2
[2022-10-08] MEDS: Cholecalciferol (VIT D3) 25 MCG TABLET (1,000 UNITS) 50 MCG PO (05:15)
[2022-10-08] MEDS: Acetaminophen 500 MG Tablet 1000 MG PO ×3 (05:16→21:09)
[2022-10-08] MEDS: Pantoprazole Sodium 40 MG Tablet PO (05:16)
[2022-10-08] MEDS: Ascorbic Acid 500 MG Tablet PO (05:16)
[2022-10-08] MEDS: Alendronate Sodium 70 MG Tablet PO (05:16)
[2022-10-08] MEDS: Ensure Plus High Protein 120 ML LIQUID PO ×3 (05:17→21:10)
[2022-10-08] MEDS: Enoxaparin 30 MG/0.3 ML Syringe SC (05:17)
[2022-10-08] MEDS: Menthol/Lanolin/Calamine/Znox 113 GM Tube 1 APPLIC TOPICAL ×2 (05:30→17:06)
[2022-10-08] MEDS: Calcium Carbonate 500 MG Tablet PO ×2 (07:41→17:06)
[2022-10-08] MEDS: traMADol 50 MG Tablet 75 MG PO (07:41)
[2022-10-08] MEDS: predniSONE 5 MG Tablet PO (07:41)
[2022-10-08] MEDS: Folic Acid 1 MG Tablet PO (07:41)
[2022-10-08] MEDS: Multivitamins,Therapeutic Tablet 3 TABLET PO (07:41)
--- NOTE | 2022-10-08 10:44 | CASEMGMT ---
Social Work IDT met with patient and dtr for care plan meeting. Discussed patient's progress in PT/OT/ST/SN. Educated to [employer] insurance with NRD 10/14, EDC 10/17. Pt's goal is to return home with adult grandson, whom can assist as needed. SW to continue to follow for DC planning. Belkis Reaves, PATIENT FINANCIAL ADVOCATE PATTERNMAKER APPRENTICE WOOD
--- NOTE | 2022-10-08 11:04 | NURSING ---
THIS NURSE WENT TO OFFICE DUE TO OFFICE NOT GETTING BACK IN A TIMELY MANNER TO SEE IF PT IS HAVING A SCOPE TOMORROW [10/09/22] PER FAMILY. IN REPORT IT STATED IT WAS SUGGESTED. THIS NURSE TALKED TO TACK CUTTER AND STATED THAT WE NEED TO KNOW TODAY IF PT IS HAVING A SCOPE DONE AND IF SO TO MAKE SURE THAT PT INSURANCE COVERS IT AND TO PLEASE LET TCU KNOW TODAY. RN AWARE.
[2022-10-08 14:01] VITALS: BP 114/71; PULSE 94; RESP 16; TEMP 36.6; O2SAT 96
--- NOTE | 2022-10-08 16:37 | NURSING ---
TALKED TO SURGERY ON PT EGD TOMORROW 10/09/22. PT IS TO BE NPO AFTER MIDNIGHT. PT CAN HAVE TYLENOL IF NEEDED AND THE BUTRANS PATCH CAN STAY ON. STAFF WILL COME FOR PT AT 11:30 AM. DAUGHTER AND PT HAVE BEEN UPDATED. RN AWARE.
[2022-10-08 21:00] VITALS: O2SAT 96
[2022-10-09] MEDS: Acetaminophen 500 MG Tablet 1000 MG PO ×3 (05:22→21:09)
--- NOTE | 2022-10-09 05:26 | NURSING ---
Pt NPO since midnight. Scheduled tylenol administered per Dr. Matthew's order with small sips of water.
--- NOTE | 2022-10-09 10:05 | NURSING ---
Dr. Preston office contacted. Dr. Preston will be in to see patient on 10/16. Appt on 10/13 cancelled. Daughter made aware.
--- NOTE | 2022-10-09 11:29 | CASEMGMT ---
Social Work BIMS () and PHQ-9 (07/07) completed for MDS assessment. Belkis Reaves MSW ROLL SHEETING CUTTER
[2022-10-09 11:30] VITALS: BP 125/70; PULSE 78; RESP 16; TEMP 36.4; O2SAT 98
[2022-10-09] MEDS: predniSONE 5 MG Tablet PO (15:53)
--- NOTE | 2022-10-09 16:43 | NURSING ---
Return from EGD at 1520. Tolerated procedure well. Dilation of diverticulum to throat performed. Okay to return to regular diet. Daughter reports the plan is for patient to see ENT Dr. Snow for throat and possible Botox injections. Came back with IV that patient request be removed. Patient also requests all other missed daily medications besides prednisone be given with dinner.
[2022-10-09] MEDS: Cholecalciferol (VIT D3) 25 MCG TABLET (1,000 UNITS) 50 MCG PO (17:51)
[2022-10-09] MEDS: Ascorbic Acid 500 MG Tablet PO (17:51)
[2022-10-09] MEDS: Multivitamins,Therapeutic Tablet 3 TABLET PO (17:52)
[2022-10-09] MEDS: Folic Acid 1 MG Tablet PO (17:52)
[2022-10-09] MEDS: Senna/Docusate Sodium 1 Tablet 2 TABLET PO (17:53)
[2022-10-09] MEDS: Enoxaparin 40 MG/0.4 ML Syringe SC (17:54)
[2022-10-09] MEDS: Pantoprazole Sodium 40 MG Tablet PO (17:55)
[2022-10-09] MEDS: Ensure Plus High Protein 120 ML LIQUID PO ×2 (17:58→21:09)
[2022-10-09] MEDS: Calcium Carbonate 500 MG Tablet PO (17:59)
[2022-10-09] MEDS: Menthol/Lanolin/Calamine/Znox 113 GM Tube 1 APPLIC TOPICAL (18:02)
[2022-10-09 20:50] VITALS: PULSE 114; RESP 16; O2SAT 95
[2022-10-10 05:38] LABS: Absolute Lymphocyte Count 1.33 X10^3/uL (0.83-4.51); Absolute Neutrophil Count 11.6 X10^3/uL (2.0-7.7); Basophil# 0.05 X10^3/uL; Basophil% 0.3 % (0-1); Eosinophil# 0.06 X10^3/uL; Eosinophils% 0.4 % (0-5); Hematocrit 29.5 % (37-47); Hemoglobin 9.1 g/dL (12.0-15.0); Lymphocyte # 1.33 X10^3/ul (0.83-4.51); Lymphocyte % 9.1 % (19-41); Mean Corp Hgb Conc 30.8 g/dL (32-36); Mean Corpuscular Hgb 30.5 pg (27.0-32.0); Mean Platelet Vol. 10.6 fl (6.2-12.0); Monocyte# 1.26 X10^3/uL; Monocyte% 8.6 % (0-10); NRBC Flagged by Analyzer 0 % (0-5); Neutrophil # 11.57 X10^3/uL (2.7-7.7); Neutrophil % 78.9 % (47-70); Platelet Count 511 K/mm3 (150-450); RBC Distribution Width CV 15.2 % (11.6-14.6); RBC Distribution Width SD 55.3 fl (35.1-43.9); Red Blood Count 2.98 M/mm3 (4.2-5.4); White Blood Count 14.7 K/mm3 (4.4-11.0)
[2022-10-10 06:02] LABS: Anion Gap 4 (5-15); BUN 18 mg/dL (7-18); BUN/Creat Ratio 27.7 RATIO (10-20); Chloride 108 mmol/L (98-107); Creatinine, Serum 0.65 mg/dL (0.55-1.02); EST Glomerular Filtration Rate 92 mL/min (>60); Est Glom Filt Rate - Afr Amer 112 mL/min (>60); Estimated Creatinine Clearance 33.12 ml/min; Glucose 102 mg/dL (74-106); Potassium 4.9 mmol/L (3.5-5.1); Sodium Level 143 mmol/L (136-145)
[2022-10-10] MEDS: Ensure Plus High Protein 120 ML LIQUID PO ×4 (06:32→22:12)
[2022-10-10] MEDS: Cholecalciferol (VIT D3) 25 MCG TABLET (1,000 UNITS) 50 MCG PO (06:33)
[2022-10-10] MEDS: Senna/Docusate Sodium 1 Tablet 2 TABLET PO (06:33)
[2022-10-10] MEDS: Acetaminophen 500 MG Tablet 1000 MG PO ×3 (06:33→22:15)
[2022-10-10] MEDS: Ascorbic Acid 500 MG Tablet PO (06:33)
[2022-10-10] MEDS: Menthol/Lanolin/Calamine/Znox 113 GM Tube 1 APPLIC TOPICAL ×2 (06:37→16:40)
[2022-10-10] MEDS: Enoxaparin 40 MG/0.4 ML Syringe SC (06:39)
[2022-10-10] MEDS: Folic Acid 1 MG Tablet PO (07:44)
[2022-10-10] MEDS: Calcium Carbonate 500 MG Tablet PO ×3 (07:44→16:40)
[2022-10-10] MEDS: predniSONE 5 MG Tablet PO (07:44)
[2022-10-10] MEDS: traMADol 50 MG Tablet 75 MG PO (07:44)
[2022-10-10] MEDS: Tuberculin,Purif.prot.deriv. 50 TU/ML Vial 0.1 ML ID (10:03)
[2022-10-10] MEDS: Multivitamins,Therapeutic Tablet 3 TABLET PO (10:03)
[2022-10-10 12:48] VITALS: PULSE 75; RESP 16; O2SAT 96
[2022-10-10 13:56] VITALS: BP 117/61; PULSE 106; RESP 16; TEMP 36.7; O2SAT 96
[2022-10-10] MEDS: Pantoprazole Sodium 40 MG Tablet PO (16:40)
[2022-10-11] MEDS: Menthol/Lanolin/Calamine/Znox 113 GM Tube 1 APPLIC TOPICAL ×2 (05:53→17:11)
[2022-10-11] MEDS: Ensure Plus High Protein 120 ML LIQUID PO ×3 (05:53→17:08)
[2022-10-11] MEDS: Enoxaparin 40 MG/0.4 ML Syringe SC (05:53)
[2022-10-11] MEDS: Acetaminophen 500 MG Tablet 1000 MG PO ×3 (05:54→21:02)
[2022-10-11] MEDS: Ascorbic Acid 500 MG Tablet PO (05:55)
[2022-10-11] MEDS: Cholecalciferol (VIT D3) 25 MCG TABLET (1,000 UNITS) 50 MCG PO (05:55)
[2022-10-11] MEDS: Calcium Carbonate 500 MG Tablet PO ×3 (08:09→17:05)
[2022-10-11] MEDS: Multivitamins,Therapeutic Tablet 3 TABLET PO (08:09)
[2022-10-11] MEDS: Folic Acid 1 MG Tablet PO (08:10)
[2022-10-11] MEDS: predniSONE 5 MG Tablet PO (08:12)
[2022-10-11 08:15] LABS: Absolute Lymphocyte Count 1.23 X10^3/uL (0.83-4.51); Absolute Neutrophil Count 6.1 X10^3/uL (2.0-7.7); Basophil# 0.08 X10^3/uL; Basophil% 0.9 % (0-1); Eosinophil# 0.23 X10^3/uL; Eosinophils% 2.6 % (0-5); Hematocrit 31.2 % (37-47); Hemoglobin 9.6 g/dL (12.0-15.0); Lymphocyte # 1.23 X10^3/ul (0.83-4.51); Mean Corp Hgb Conc 30.8 g/dL (32-36); Mean Corpuscular Hgb 30.5 pg (27.0-32.0); Mean Platelet Vol. 10.4 fl (6.2-12.0); Monocyte# 0.91 X10^3/uL; Monocyte% 10.4 % (0-10); NRBC Flagged by Analyzer 0 % (0-5); Neutrophil # 6.07 X10^3/uL (2.7-7.7); Neutrophil % 69.4 % (47-70); Platelet Count 524 K/mm3 (150-450); RBC Distribution Width CV 15.5 % (11.6-14.6); RBC Distribution Width SD 56.1 fl (35.1-43.9); Red Blood Count 3.15 M/mm3 (4.2-5.4); White Blood Count 8.8 K/mm3 (4.4-11.0)
--- NOTE | 2022-10-11 09:33 | NURSING ---
OLD BUTRANS PATCH REMOVED,DISPOSED OF AND WITNESS BY JOSELO BARKLEY. NEW PATCH APPLIED TO RIGHT CHEST. LAST PATCH WAS USED,STATED TO PT THAT SHE NEEDED MORE. PT STATED OK I WILL LET MY DAUGHTER KNOW AND I SEE NEXT WEEK.
--- NOTE | 2022-10-11 14:51 | NURSING ---
dr miner notified of pt request to change miralax and senna s to PRN
[2022-10-11 16:00] VITALS: BP 111/61; PULSE 108; RESP 18; TEMP 36.3; O2SAT 96
[2022-10-11] MEDS: Pantoprazole Sodium 40 MG Tablet PO (17:05)
[2022-10-11 17:40] VITALS: PULSE 87
[2022-10-12] MEDS: Acetaminophen 500 MG Tablet 1000 MG PO ×3 (06:10→21:58)
[2022-10-12] MEDS: Ascorbic Acid 500 MG Tablet PO (06:11)
[2022-10-12] MEDS: Cholecalciferol (VIT D3) 25 MCG TABLET (1,000 UNITS) 50 MCG PO (06:11)
[2022-10-12] MEDS: Ensure Plus High Protein 120 ML LIQUID PO ×4 (06:11→21:57)
[2022-10-12] MEDS: Enoxaparin 40 MG/0.4 ML Syringe SC (06:11)
[2022-10-12] MEDS: Senna/Docusate Sodium 1 Tablet 2 TABLET PO (06:19)
--- NOTE | 2022-10-12 06:28 | NURSING ---
Pt continues to c/o LLQ abdominal pain that is constant and sharp. In mild distress. Has been passing gas. Reports LBM yesterday and feels she is passing an adequate amount of stool. Denies any loose or liquid stools. Denies any vomiting. Bowel sounds slightly hyperactive x 4 quadrants. Tenderness upon palpation to LLQ. No ecchymosis noted to abdomen. Small area of a raised texture to LLQ near the anterior hip bone. Pt reports pain is not improved or worse since last night. Has experienced this type of pain in the past. Unsure when this pain occurred last and what she did to relieve the symptoms. Senna-S 2 tablets given per pt request. Pt verbalizes she will continue to monitor symptoms. Staff to continue to monitor.
[2022-10-12] MEDS: Menthol/Lanolin/Calamine/Znox 113 GM Tube 1 APPLIC TOPICAL ×2 (07:58→17:32)
[2022-10-12] MEDS: Calcium Carbonate 500 MG Tablet PO ×3 (07:59→17:27)
[2022-10-12] MEDS: Multivitamins,Therapeutic Tablet 3 TABLET PO (08:00)
[2022-10-12] MEDS: Folic Acid 1 MG Tablet PO (08:00)
[2022-10-12] MEDS: predniSONE 5 MG Tablet PO (08:00)
[2022-10-12 09:25] VITALS: PULSE 85; RESP 18; O2SAT 92
--- NOTE | 2022-10-12 09:49 | NURSING ---
PT STATED SHE WANTED TO GO HOME SOON AND WAS CONCERNED ABOUT GETTING IN AND OUT OF THE SHOWER,CAR AND ETC. PT ALSO STATED SHE WOULD LIKE TO BE AB NICOLE IN ROOM. THIS NURSE STATED SHE WOULD LET THERAPY AND GLAZIER SUPERVISOR KNOW. PT THANKED THIS NURSE.
[2022-10-12 15:33] VITALS: BP 114/63; PULSE 73; RESP 18; TEMP 36.9; O2SAT 96
--- NOTE | 2022-10-12 19:11 | NURSING ---
BUTRANS PATCH VERIFIED TO RIGHT CHEST. PT ALSO STATED HER PAIN IN LLQ WENT AWAY THIS MORNING AND HASN'T CAME BACK.
[2022-10-12] MEDS: Pantoprazole Sodium 40 MG Tablet PO (21:59)
--- NOTE | 2022-10-13 04:31 | NURSING ---
Left vm for Belkis YADAV, to update on pt's request to dc home this week. Reports her grandson will be staying w/ her and assist her as needed. Dr. Preston is scheduled to visit pt on unit on 10/16 and encouraged pt to keep this appt prior to dc.
[2022-10-13] MEDS: Ensure Plus High Protein 120 ML LIQUID PO ×4 (05:56→21:05)
[2022-10-13] MEDS: Enoxaparin 40 MG/0.4 ML Syringe SC (05:56)
[2022-10-13] MEDS: Ascorbic Acid 500 MG Tablet PO (05:57)
[2022-10-13] MEDS: Cholecalciferol (VIT D3) 25 MCG TABLET (1,000 UNITS) 50 MCG PO (05:57)
[2022-10-13] MEDS: Acetaminophen 500 MG Tablet 1000 MG PO ×3 (05:57→21:05)
[2022-10-13] MEDS: Calcium Carbonate 500 MG Tablet PO ×3 (07:59→16:27)
[2022-10-13] MEDS: Multivitamins,Therapeutic Tablet 3 TABLET PO (07:59)
[2022-10-13] MEDS: predniSONE 5 MG Tablet PO (07:59)
[2022-10-13] MEDS: Folic Acid 1 MG Tablet PO (07:59)
[2022-10-13 15:19] VITALS: BP 98/71; PULSE 99; RESP 19; TEMP 36.6; O2SAT 97
--- NOTE | 2022-10-13 15:44 | CASEMGMT ---
Addendum entered by Belkis Reaves 10/13/22 16:20: Followed up with pt. Pt requesting to DC. Pt has f/u appt with ortho to remove sutures on 10/16. SW suggested 10/17. Pt agreed. Offered C PT/OT. Pt agreed but does not have a preference of HHC agency. SW provided printed list of skilled [facility] agencies with quality and resource data via [employer]. Dtr to review and pt to notify this worker of selections. No DME needs. Dtr to transport. Plan: DC home with son 10/17, [facility] PT/OT HILARY Johnson Original Note: Social Work SW attempted to follow up with pt about request to DC, but pt busy and requested this worker return. HILARY Johnson
[2022-10-13] MEDS: Menthol/Lanolin/Calamine/Znox 113 GM Tube 1 APPLIC TOPICAL (16:28)
--- NOTE | 2022-10-13 20:26 | DS.PCM_ITS ---
Providers Date of Admission: 10/02/22 Primary Care Physician: Milagros Aguirre, YENIFER Consultations 10/07/22 09:02 Consult: Gastroenterology Routine Consulting Provider: [facility] Reason for Consult: Zenkers diverticulum EMERGENT Consult: No Notified: Yes Date Notified: 10/07/22 Time Notified: 09:02 Method of Notification: Verbal Comments:: Notified Rashmi at office of consult 10/07/22 10:17 Consult: ENT Routine Consulting Provider: Michelle Manley Reason for Consult: Cricopharyngeal diverticulum EMERGENT Consult: No Notified: Yes Date Notified: 10/07/22 Time Notified: 10:17 Method of Notification: Verbal Comments:: Spoke w/ office staff Reason For Visit: RIGHT FEMORAL HIP FRACTURE Diagnosis Discharge Diagnosis (1) Dysphagia: Status: Acute Code(s): R13.10 - Dysphagia, unspecified (2) Fracture of hip, right, closed: Status: Inactive Code(s): S72.001A - Fracture of unspecified part of neck of right femur, initial encounter for closed fracture (3) Debility: Status: Acute Code(s): R53.81 - Other malaise (4) History of right hip hemiarthroplasty: Status: Acute Code(s): Z96.641 - Presence of right artificial hip joint (5) Chronic diarrhea: Status: Chronic Code(s): K52.9 - Noninfective gastroenteritis and colitis, unspecified (6) Hypophosphatemia: Status: Acute Code(s): E83.39 - Other disorders of phosphorus metabolism (7) Rheumatoid arthritis: Status: Acute Code(s): M06.9 - Rheumatoid arthritis, unspecified (8) Osteoporosis: Status: Acute Code(s): M81.0 - Age-related osteoporosis without current pathological fracture (9) Osteoarthritis: Status: Acute Code(s): M19.90 - Unspecified osteoarthritis, unspecified site (10) GERD (gastroesophageal reflux disease): Status: Acute Code(s): K21.9 - Gastro-esophageal reflux disease without esophagitis Plan 82 year old female with below past medical history hospitalized for right hip fracture, underwent cemented right hip hemiarthroplasty with Dr. Preston, complicated by low phosphorous, admitted to TCU with debility, here for rehabilitation, strengthening, prior to discharge home alone. * Debility - PT/OT. * Pain - Tylenol 1000mg q8, Tramadol 50mg q6h prn pain (1-5), Oxycodone 5mg q4h prn pain (6-10). * Bowel - Miralax 17gm daily, senna/colace 2 tablets bid, Dulcolax 10mg daily prn. * Adult immunization - Administer prevnar 20, covid19, flu vaccine as appropriate. * DVT prophylaxis - Lovenox 30mg sc daily thru 11/01/2022. * Osteoporosis - Alendronate 70mg qweek. * Vitamin C deficiency - Vitamin C 500mg daily. * Calcium deficiency - TUMS 500mg tidcm. * Osteoarthritis - Celebrex 200mg daily. * Folate deficiency - Folic acid 1 mg daily. * Nutrition - MVI 3 tablets daily. * GERD - Pantoprazole 40mg daily. * Rheumatoid arthritis - Prednisone 5mg daily. * Muscle spasm - Tizanidine 2mg q8h prn. * Vitamin D deficiency - D3 25mcg daily. Medications at Discharge Home Medications methotrexate sodium (PF) 25 mg/mL injection solution 75 mg IM TH Check with primary doctor 11/29/13 prednisone 5 mg tablet 5 mg PO DAILY Check with primary doctor 11/29/13 alendronate 70 mg tablet (Fosamax) 70 mg PO QWEEK Check with primary doctor 11/10/18 folic acid 400 mcg tablet 0.8 mg PO DAILY@0800 Supplement 11/10/18 celecoxib 200 mg capsule 200 mg PO DAILY PRN Pain 12/12/20 multivitamin 3 tab PO DAILY Supplement 06/25/21 tofacitinib 5 mg tablet (Xeljanz) 5 mg PO BID Check with primary doctor 06/25/21 buprenorphine 10 mcg/hour weekly transdermal patch (Butrans) 5 mcg topical QWEEK Check with primary doctor 09/16/21 ascorbic acid (vitamin C) 500 mg capsule 500 mg PO DAILY Supplement 05/27/22 cholecalciferol (vitamin D3) 50 mcg (2,000 unit) capsule 50 mcg PO DAILY Supplement 05/27/22 acetaminophen 500 mg tablet 1,000 mg PO Q8 Pain 10/02/22 calcium carbonate 200 mg calcium (500 mg) chewable tablet 500 mg PO TIDCM Check with primary doctor 10/02/22 lansoprazole 30 mg capsule,delayed release (Prevacid) 30 mg PO DAILY Check with primary doctor 10/02/22 tramadol 50 mg tablet 50 mg PO Q8H PRN pain #3 tabs 10/02/22 buprenorphine 5 mcg/hour weekly transdermal patch (Butrans) 1 ea transdermal QWEEK #0 ea 10/13/22 tizanidine 2 mg tablet 2 mg PO Q8H PRN PRN muscle spasm 30 days #90 tabs 10/13/22 Hospital Course Operations None and - (Right hip hemiarthroplasty.) Procedures EGD Summary of Care Provided Minutes Spent on Discharge: 35 Hospital Course: 82 year old female with below past medical history hospitalized for right hip fracture, underwent cemented right hip hemiarthroplasty with Dr. Preston, complicated by low phosphorous, admitted to TCU with debility, here for rehabilitation, strengthening, prior to discharge home alone. 10/09/2022 Dr. Matthew EGD showed Zenker's diverticulum, benign esophageal stenosis dilated, large hiatal hernia. Discharge home with son 10/17/2022, Home Health Care PT/OT. Physical Exam Const alert General Appearance: cooperative HEENT normocephalic Eyes PERRL and EOMs intact bilaterally Neck supple, no JVD and no carotid bruits Resp normal respiratory effort, normal air movement and clear to auscultation bilaterally Cardio regular rate and regular rhythm GI normal to inspection, nondistended, normoactive bowel sounds, non-tender and non-distended Extremity normal capillary refill General Extremity: Negative for edema Skin no rashes or lesions noted General Skin Exam: no breakdown Psych affect normal Appearance: appropriate Medical Records Data Medical Nutrition Assessment Dietitian: Malnutrition Criteria Met Start: 10/03/22 14:22 Freq: Status: Active Protocol: Document 10/08/22 12:04 NAVJOT (Rec: 10/08/22 12:04 [facility] [id number]) Nutrition Malnutrition Evidence of Malnutrition Exists Yes Malnutrition (severe): Chronic Evidenced By Suboptimal Energy Intake ( Severe),Weight Loss (Severe), Physical Changes (Moderate) Clinical Problem Chronic Disease or Condition Related Malnutrition Etiology severe related to inadequate energy intake Signs/Symptoms as evidenced by 22.6% unintended wt loss and po 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 Status Active Problem Recommendation Dietitian Recommendations/Changes Continue liberal regular diet d/t signs/symptoms of malnutrition. Continue Ensure [place] High Protein 4x/day w/ medpass at [facility]. Rec consider appetite stimulant to help encourage increased po intake at meals. Weight / BMI Weight Weight: 53.524 kg Body Mass Index (BMI) 21.5 ABG / Lab / Microbiology Data Result Diagrams: 10/11/22 07:51 10/10/22 05:12 Microbiology: Microbiology 10/06/22 06:30 Nasal Secretion SARS-CoV-2 Antigen (Rapid) - Final 10/04/22 05:30 Nasal Secretion SARS-CoV-2 Antigen (Rapid) - Final D/C Instructions Discharge Diet: No restrictions Discharge Activity: Return to Normal Activity, May Shower and Use Walker Weight Bearing Status: Weight bearing as tolerated Call your doctor if you observe: Fever of 101 or Higher, Inability to urinate, Inability to have a bowel movement, Shortness of breath, Dizziness, Fainting spells, Swelling in the ankles, Chest pain and Uncontrolled pain Additional Instructions: Discharge home with son 10/17/2022, Home Health Care PT/OT. Please Follow Up With: Constantine Preston, DO When: As scheduled. Meaningful Use Info Meaningful Use Diagnoses (Choose all that apply): None applicable Discharge Plan Admission Admit Date/Time: 10/02/22 18:30 Primary Reason for Your Visit: Debility. Attending Provider: Adalberto Willingham Chi Primary Care Provider: Milagros Aguirre NP Consulting Providers: Michelle Manley Instructions Additional Instructions / Restrictions: Discharge home with son 10/17/2022, Home Health Care PT/OT. Discharge Orders/Prescriptions Prescriptions: New tizanidine 2 mg Tablet 2 mg PO Q8H PRN PRN (Reason: muscle spasm) 30 Days Qty: 90 0RF buprenorphine [Butrans] 5 mcg/hour Patch Weekly 1 ea transdermal QWEEK Qty: 0 0RF Continued alendronate [Fosamax] 70 mg tablet 70 mg PO QWEEK ascorbic acid (vitamin C) 500 mg capsule 500 mg PO DAILY cholecalciferol (vitamin D3) 50 mcg (2,000 unit) capsule 50 mcg PO DAILY prednisone 5 MG tablet 5 mg PO DAILY methotrexate sodium (PF) 25 MG/ML solution 75 mg IM TH Hold Instructions: Resume on 10/15/21. Label Comments: HOLD WEEK OF SURGERY-PER DR. HOLDEN folic acid 400 mcg tablet 0.8 mg PO DAILY@0800 celecoxib 200 mg capsule 200 mg PO DAILY PRN (Reason: Pain) multivitamin Tablet 3 tab PO DAILY Xeljanz 5 mg tablet 5 mg PO BID Hold Instructions: Resume on 10/09/22. buprenorphine [Butrans] 10 mcg/hour patch weekly 5 mcg topical QWEEK Label Comments: Thursday tramadol 50 mg tablet 50 mg PO Q8H PRN (Reason: pain) Qty: 3 0RF acetaminophen 500 mg tablet 1,000 mg PO Q8 lansoprazole [Prevacid] 30 mg capsule,delayed release(DR/EC) 30 mg PO DAILY calcium carbonate 200 mg calcium (500 mg) tablet,chewable 500 mg PO TIDCM Discontinued tizanidine 2 mg Tablet 2 mg PO Q8H PRN PRN (Reason: muscle spasm) Qty: 0 0RF tamsulosin 0.4 mg capsule 0.4 mg PO DAILY@1730 Rx Instructions: stop if voiding well enoxaparin 30 mg/0.3 mL syringe 30 mg subcut DAILY Rx Instructions: for 30 days postoperatively Referrals / Follow Up: Milagros Aguirre NP, SYSTEMS OPERATOR-C [Primary Care Provider] - Disposition Disposition (needs filled in before D/C Order can be placed): Home Health Service
[2022-10-13 21:00] VITALS: O2SAT 94
[2022-10-13] MEDS: Pantoprazole Sodium 40 MG Tablet PO (21:06)
[2022-10-14] MEDS: Enoxaparin 40 MG/0.4 ML Syringe SC (05:08)
[2022-10-14] MEDS: Cholecalciferol (VIT D3) 25 MCG TABLET (1,000 UNITS) 50 MCG PO (05:10)
[2022-10-14] MEDS: Acetaminophen 500 MG Tablet 1000 MG PO ×3 (05:10→22:06)
[2022-10-14] MEDS: Ascorbic Acid 500 MG Tablet PO (05:11)
[2022-10-14] MEDS: Ensure Plus High Protein 120 ML LIQUID PO ×4 (05:11→22:06)
[2022-10-14] MEDS: Menthol/Lanolin/Calamine/Znox 113 GM Tube 1 APPLIC TOPICAL ×2 (05:13→17:40)
[2022-10-14] MEDS: Calcium Carbonate 500 MG Tablet PO ×3 (07:59→17:36)
[2022-10-14] MEDS: predniSONE 5 MG Tablet PO (07:59)
[2022-10-14] MEDS: Multivitamins,Therapeutic Tablet 3 TABLET PO (07:59)
[2022-10-14] MEDS: Folic Acid 1 MG Tablet PO (07:59)
[2022-10-14 10:18] VITALS: BMI 20.9
--- NOTE | 2022-10-14 11:13 | MDS.RN ---
Information for the mds was obtained from review of the clinical record, interview of resident, staff, and direct observation of resident's care.
--- NOTE | 2022-10-14 11:15 | NURSING ---
Patient returned from appointment with Dr. Hoskins. Patient to continue on current pain regimen, no new orders.
--- NOTE | 2022-10-14 13:17 | CASEMGMT ---
Social Work SW received call from dtr requesting [facility] services. Also requesting resources on Medicaid. SW offered to provide GUILLERMO marti and can assist with completion and submission. SW phoned referral to [facility] PT/OT. HILARY Johnson
[2022-10-14 14:46] VITALS: BP 127/61; PULSE 105; RESP 18; TEMP 36.3; O2SAT 96
--- NOTE | 2022-10-14 15:11 | NURSING ---
Patient returned from appointment at this time. No new orders.
--- NOTE | 2022-10-14 16:18 | CHAPLAIN ---
Type of Pastoral Visit _x__ Initial Visit ___ Follow-up Visit ___ On-call Visit ___ General Patient Visit ___ Spiritual Assessment ___ Family Conference ___ Bereavement ___ Rapid Response ___ Code Blue ___ Other (describe below) Pastoral Care Referral From _x__ Patient ___ Family ___ Nurse ___ Physician ___ Financial Services Auditor ___ Steamfitter Supervisor ___ Other (describe below) Sacrament/Intervention ___ Active listening ___ Anointing ___ Roman Catholic ___ Bereavement ___ Communion ___ Maryanne exploration ___ ___ Life review ___ Prayer ___ Reconciliation ___ Sacrament of Sick ___ Supportive presence ___ Wedding _x__ Other (describe below) Pastoral Comments patient was having therapy but interacted with daughter who was visiting and offered support; daughter is very pleased with TCU and the progress of mother; daughter believes pt is concerned about going home but daughter believes she is ready; daughter asks for cmm inspector to attempt a visit tomorrow
[2022-10-14] MEDS: traMADol 50 MG Tablet 75 MG PO (17:37)
[2022-10-14] MEDS: Pantoprazole Sodium 40 MG Tablet PO (22:06)
[2022-10-15] MEDS: Cholecalciferol (VIT D3) 25 MCG TABLET (1,000 UNITS) 50 MCG PO (06:08)
[2022-10-15] MEDS: Enoxaparin 40 MG/0.4 ML Syringe SC (06:08)
[2022-10-15] MEDS: Acetaminophen 500 MG Tablet 1000 MG PO ×3 (06:08→21:06)
[2022-10-15] MEDS: Ascorbic Acid 500 MG Tablet PO (06:08)
[2022-10-15] MEDS: Alendronate Sodium 70 MG Tablet PO (06:09)
[2022-10-15 06:43] VITALS: BP 124/68; PULSE 77
[2022-10-15] MEDS: Calcium Carbonate 500 MG Tablet PO ×3 (07:54→17:17)
[2022-10-15] MEDS: Multivitamins,Therapeutic Tablet 3 TABLET PO (07:54)
[2022-10-15] MEDS: predniSONE 5 MG Tablet PO (07:55)
[2022-10-15] MEDS: Folic Acid 1 MG Tablet PO (07:55)
[2022-10-15] MEDS: Ensure Plus High Protein 120 ML LIQUID PO ×3 (11:54→21:06)
[2022-10-15] MEDS: traMADol 50 MG Tablet 75 MG PO (11:54)
--- NOTE | 2022-10-15 13:45 | NURSING ---
NEW ORDERS FROM DR. MAY FOR LT HIP XRAYS,POST OP.
[2022-10-15 14:55] VITALS: BP 100/59; PULSE 103; RESP 14; TEMP 36.1; O2SAT 94
--- NOTE | 2022-10-15 15:30 | RAD_ITS ---
INDICATION: POST OP EXAMINATION/TECHNIQUE: X-RAY - XR Hip Unilateral with Pelvis when performed; 2-3 Views COMPARISON: None. FINDINGS: PELVIC BONES: No displaced fracture, destructive or sclerotic lesions. Note that overlapping bowel shadows may however obscure fine detail. Sacroiliac joints are unremarkable. No widening of the pubic symphysis. Degenerative lower lumbar vertebral changes and mild scoliosis. HIPS: There is a right hip prosthesis in place. Skin duy are noted laterally at the right hip. SOFT TISSUES: No soft tissue swelling or gas. There are pelvic calcifications related to fibroids. Vascular calcifications. RAD/HIP, UNI W/ Pelvis 2-3 Views IMPRESSION: Right hip prosthesis placement with postsurgical changes. Electronically Signed: Riley Miller DO at 17:06 EDT Reading Location ID and State: [facility] / [place] Tel [phone], Service support ,
[2022-10-15 20:25] VITALS: PULSE 78; RESP 16; O2SAT 98
[2022-10-15] MEDS: Pantoprazole Sodium 40 MG Tablet PO (21:06)
[2022-10-16] MEDS: Acetaminophen 500 MG Tablet 1000 MG PO ×3 (06:00→20:48)
[2022-10-16] MEDS: Cholecalciferol (VIT D3) 25 MCG TABLET (1,000 UNITS) 50 MCG PO (06:01)
[2022-10-16] MEDS: Ascorbic Acid 500 MG Tablet PO (06:01)
[2022-10-16] MEDS: Enoxaparin 40 MG/0.4 ML Syringe SC (06:01)
[2022-10-16] MEDS: Ensure Plus High Protein 120 ML LIQUID PO ×4 (06:01→20:48)
[2022-10-16] MEDS: Folic Acid 1 MG Tablet PO (07:40)
[2022-10-16] MEDS: Multivitamins,Therapeutic Tablet 3 TABLET PO (07:40)
[2022-10-16] MEDS: predniSONE 5 MG Tablet PO (07:40)
[2022-10-16] MEDS: Calcium Carbonate 500 MG Tablet PO ×3 (07:40→17:42)
--- NOTE | 2022-10-16 11:01 | CASEMGMT ---
Social Work BIMS () and PHQ-9 (07/07) completed for MDS assessment. Belkis Reaves MSW NARCOTICS INVESTIGATOR
[2022-10-16 13:51] VITALS: BP 93/46; PULSE 110; RESP 18; TEMP 36.6; O2SAT 90
--- NOTE | 2022-10-16 14:06 | PN.ORTHO_ITS ---
Subjective Subjective Patient seen and examined. Pain controlled. Ambulates without assistance utilizing a front wheel walker. She denies any new complaints. Denies fevers, chills, nausea vomiting, chest pain or shortness of breath. Objective Data Objective Data Vital Signs: Vital Signs Temp Pulse Resp BP Pulse Ox O2 Del Method 97.8 F 110 H 18 93/46 L 90 Room Air 10/16/22 13:51 10/16/22 13:51 10/16/22 13:51 10/16/22 13:51 10/16/22 13:51 10/16/22 13:51 Oxygen Delivery Method Room Air Weight: 114 lb 8 oz Body Mass Index (BMI) 20.9 Intake & Output: Intake and Output for Last 24 Hours 10/14/22 10/15/22 10/16/22 23:59 23:59 23:59 Intake Total 480 / 480 720 / 720 360 / 360 Balance 480 / 480 720 / 720 360 / 360 Medical Nutrition Assessment Dietitian: Malnutrition Criteria Met Start: 10/03/22 14:22 Freq: Status: Active Protocol: Document 10/08/22 12:04 NAVJOT (Rec: 10/08/22 12:04 [facility] [id number]) Nutrition Malnutrition Evidence of Malnutrition Exists Yes Malnutrition (severe): Chronic Evidenced By Suboptimal Energy Intake ( Severe),Weight Loss (Severe), Physical Changes (Moderate) Clinical Problem Chronic Disease or Condition Related Malnutrition Etiology severe related to inadequate energy intake Signs/Symptoms as evidenced by 22.6% unintended wt loss and 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 Status Active Problem Recommendation Dietitian Recommendations/Changes Continue liberal regular diet d/t signs/symptoms of malnutrition. Continue Ensure [place] High Protein 4x/day w/ medpass at medpass. Rec consider appetite stimulant to help encourage increased po intake at meals. Lab / Micro Data Result Diagrams: 10/11/22 07:51 10/10/22 05:12 Micro: Microbiology 10/06/22 06:30 Nasal Secretion SARS-CoV-2 Antigen (Rapid) - Final 10/04/22 05:30 Nasal Secretion SARS-CoV-2 Antigen (Rapid) - Final Physical Exam Narrative General - A&Ox3, NAD. VSS/AF Gait demonstrates significant knee flexion when ambulating, passively correctable right knee flexion contractures noted. Right lower extremity -well approximated posterior lateral hip incision with duy in place. No erythema or drainage. SILT Sural, Saphenous, SPN, DPN, Tibial N. distributions. DP, PT 2+. BCR. DF, PF, EHL 5/5. No calf TTP. Assessment & Plan Assessment/Plan (1) History of right hip hemiarthroplasty: PLAN: Patient doing well approximately 2 weeks status post right hip hemiarthroplasty. Continue posterior hip precautions. Continue PT/OT. Weightbearing as tolerated. Continue Lovenox for 4 weeks postoperatively as ordered. X-rays reviewed and appear benign. Plan to follow-up in 4 weeks for a 6-week postoperative follow-up. We will obtain new x-rays at that time. I explained we will discuss her driving privileges at that visit. I will have nursing remove duy. No tub soaks until 6 weeks postop. Please call if any questions or concerns arise in the meantime.
[2022-10-16] MEDS: Pneumococcal Vaccine 20 Valent 0.5 ML Syringe IM (15:03)
--- NOTE | 2022-10-16 15:20 | CHAPLAIN ---
Type of Pastoral Visit _x__ Initial Visit ___ Follow-up Visit ___ On-call Visit ___ General Patient Visit ___ Spiritual Assessment ___ Family Conference ___ Bereavement ___ Rapid Response ___ Code Blue ___ Other (describe below) Pastoral Care Referral From _x__ Patient ___ Family ___ Nurse ___ Physician ___ Turning Machine Operator Helper ___ Spectrograph Operator ___ Other (describe below) Sacrament/Intervention _x__ Active listening ___ Anointing ___ Restorationism ___ Bereavement ___ Communion ___ Maryanne exploration ___ _x__ Life review ___ Prayer ___ Reconciliation ___ Sacrament of Sick ___ Supportive presence ___ Wedding ___ Other (describe below) Pastoral Comments
--- NOTE | 2022-10-16 15:23 | NURSING ---
Removed duy from Lft hip, 23 duy intact. Surgical incision well approximated, minor swelling and redness noted. Scabs noted, drainage noted
[2022-10-16] MEDS: Pantoprazole Sodium 40 MG Tablet PO (20:48)
[2022-10-16] MEDS: tiZANidine HCl 2 MG Tablet PO (20:49)
[2022-10-16 20:56] VITALS: PULSE 71; RESP 16
[2022-10-17 05:53] LABS: Absolute Neutrophil Count 3.1 X10^3/uL (2.0-7.7); Basophil# 0.08 X10^3/uL; Basophil% 1.5 % (0-1); Eosinophil# 0.19 X10^3/uL; Eosinophils% 3.4 % (0-5); Hematocrit 32.1 % (37-47); Hemoglobin 9.7 g/dL (12.0-15.0); Lymphocyte % 18.1 % (19-41); Mean Corp Hgb Conc 30.2 g/dL (32-36); Mean Corpuscular Hgb 30.1 pg (27.0-32.0); Mean Corpuscular Volume 99.7 fL (81-99); Mean Platelet Vol. 10.9 fl (6.2-12.0); Monocyte# 1.11 X10^3/uL; Monocyte% 20.1 % (0-10); NRBC Flagged by Analyzer 0 % (0-5); Neutrophil # 3.07 X10^3/uL (2.7-7.7); Neutrophil % 55.8 % (47-70); Platelet Count 482 K/mm3 (150-450); RBC Distribution Width CV 15.6 % (11.6-14.6); RBC Distribution Width SD 56.6 fl (35.1-43.9); Red Blood Count 3.22 M/mm3 (4.2-5.4); White Blood Count 5.5 K/mm3 (4.4-11.0)
[2022-10-17] MEDS: Enoxaparin 40 MG/0.4 ML Syringe SC (06:15)
[2022-10-17] MEDS: Cholecalciferol (VIT D3) 25 MCG TABLET (1,000 UNITS) 50 MCG PO (06:17)
[2022-10-17] MEDS: Acetaminophen 500 MG Tablet 1000 MG PO (06:18)
[2022-10-17] MEDS: Ascorbic Acid 500 MG Tablet PO (06:18)
[2022-10-17 06:36] LABS: Anion Gap 6 (5-15); BUN 23 mg/dL (7-18); Calcium,Total 9.3 mg/dL (8.5-10.1); Chloride 107 mmol/L (98-107); EST Glomerular Filtration Rate 85 mL/min (>60); Est Glom Filt Rate - Afr Amer 103 mL/min (>60); Estimated Creatinine Clearance 33.12 ml/min; Glucose 88 mg/dL (74-106); Potassium 4.6 mmol/L (3.5-5.1); Sodium Level 143 mmol/L (136-145)
[2022-10-17] MEDS: Folic Acid 1 MG Tablet PO (09:05)
[2022-10-17] MEDS: Calcium Carbonate 500 MG Tablet PO (09:05)
[2022-10-17] MEDS: Multivitamins,Therapeutic Tablet 3 TABLET PO (09:05)
[2022-10-17] MEDS: predniSONE 5 MG Tablet PO (09:06)
[2022-10-17 09:15] VITALS: PULSE 69; RESP 16; O2SAT 94
[2022-10-17 09:37] VITALS: BP 100/64; PULSE 69; RESP 18; TEMP 36.8; O2SAT 94
--- NOTE | 2022-10-17 10:28 | CASEMGMT ---
Social Work Nursing notified this worker pt/dtr is asking for a walker. SW presented to room to inquire about walker needs. Confirmed pt does not have a walker at home and would need one to DC. Verbalized some options, but ultimately dtr agreed to wait to DC until [facility] could provide an answer on supplying a walker. VICENTA spoke with [facility] and [facility] [employer] to confirm a walker is in stock and can be dispensed to provide to pt for DC this date from onsite closet. Official referral sent to [facility] via [employer] to process through insurance. FWW provided to pt in room. Both appreciative. Belkis Reaves, CLINICAL EXERCISE PHYSIOLOGIST BALL MILL OPERATOR
[2022-10-17 11:09] VITALS: BP 100/64; PULSE 69; RESP 16; TEMP 36.8; O2SAT 94
== END 2022-10-17 10:40 | disposition home health service (06) | DRG 561 ==
PROVIDERS: Admitting Provider Family Medicine Geriatric Medicine; PCP Registered Nurse; Visit Provider Family Medicine Geriatric Medicine
DX: S72.001D Fracture of unspecified part of neck of right femur, subsequent encounter for closed fracture with routine healing (principal); E53.8 Deficiency of other specified B group vitamins; M06.9 Rheumatoid arthritis, unspecified; K21.9 Gastro-esophageal reflux disease without esophagitis; E55.9 Vitamin D deficiency, unspecified; M19.90 Unspecified osteoarthritis, unspecified site; W19.XXXD Unspecified fall, subsequent encounter; G47.30 Sleep apnea, unspecified; K22.5 Diverticulum of esophagus, acquired; Z79.01 Long term (current) use of anticoagulants; Z79.83 Long term (current) use of bisphosphonates; Z79.899 Other long term (current) drug therapy; R13.12 Dysphagia, oropharyngeal phase; Z79.52 Long term (current) use of systemic steroids; M81.0 Age-related osteoporosis without current pathological fracture; Z23 Encounter for immunization
CPT/HCPCS: 36415; 73502; 74230; 80048; 85025; 87811; 90677; 92526; 92610; 92611; 97110; 97112; 97116; 97162; 97166; 97530; 97535; 97802; G0009; A4216; J2405

== ENCOUNTER 2022-10-09 12:34 | Day surgery (SDC) | payer MEDICARE, SELFPAY ==
[2022-10-09] VITALS (7 sets, daily range): BP systolic 93–112; BP diastolic 54–75; PULSE 74–85; RESP 16–18; TEMP 36.4–36.9; O2SAT 95–100; BMI 21.6
--- NOTE | 2022-10-09 12:42 | PCM.HP.BLA ---
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 Bilateral hand, wrist and small joints deformity.?history of palpitations, PACs/PVCs, SVT status post EPS/RFA in 2000, and mitral valve prolapse.? I was asked to see her after she underwent a swallowing test and exhibited esophageal dysphagia and oropharyngeal dysphagia with regurgitation and double swallowing.? She says that she has had trouble swallowing for the last 10 years.? She was diagnosed with a Zenker's diverticulum multiple years ago.? She says it has been really bad regarding her swallowing solid foods including pills and liquids over the last 6 months. [facility] Medical History?(Updated 10/07/22 @ 17:[address] Gaona Friend, DO) Arthritis Back pain Cardiology follow-up encounter Easy bruising Gastric reflux History of hiatal hernia History of irregular heartbeat History of pain when walking History of steroid therapy Injury of back Irregular heart beat Kidney stones MVP (mitral valve prolapse) Normal stress echocardiogram Post-menopausal Premature atrial contraction Premature ventricular contraction Rheumatoid arthritis Sleep apnea Supraventricular tachycardia Wears contact lenses Wears glasses Home Medications methotrexate sodium (PF) 25 mg/mL injection solution 75 mg IM TH Check with primary doctor 11/29/13 [History Last Taken 09/16/21] prednisone 5 mg tablet 5 mg PO DAILY Check with primary doctor 11/29/13 [History Last Taken 07/02/21] alendronate 70 mg tablet (Fosamax) 70 mg PO QWEEK Check with primary doctor 11/10/18 [History Last Taken 10/01/22 12:05] folic acid 400 mcg tablet 0.8 mg PO DAILY@0800 Supplement 11/10/18 [History Last Taken Unknown] celecoxib 200 mg capsule 200 mg PO DAILY PRN Pain 12/12/20 [History Last Taken Unknown] multivitamin 3 tab PO DAILY Supplement 06/25/21 [History Last Taken Unknown] tofacitinib 5 mg tablet (Xeljanz) 5 mg PO BID Check with primary doctor 06/25/21 [History Last Taken 09/16/21] buprenorphine 10 mcg/hour weekly transdermal patch (Butrans) 5 mcg topical QWEEK Check with primary doctor 09/16/21 [History Last Taken 09/27/22] ascorbic acid (vitamin C) 500 mg capsule 500 mg PO DAILY Supplement 05/27/22 [History Last Taken Unknown] cholecalciferol (vitamin D3) 50 mcg (2,000 unit) capsule 50 mcg PO DAILY Supplement 05/27/22 [History Last Taken Unknown] acetaminophen 500 mg tablet 1,000 mg PO Q8 Pain 10/02/22 [History Last Taken Unknown] calcium carbonate 200 mg calcium (500 mg) chewable tablet 500 mg PO TIDCM Check with primary doctor 10/02/22 [History Last Taken Unknown] enoxaparin 30 mg/0.3 mL subcutaneous syringe 30 mg subcut DAILY Anticoagulant 10/02/22 [History Last Taken Unknown] lansoprazole 30 mg capsule,delayed release (Prevacid) 30 mg PO DAILY Check with primary doctor 10/02/22 [History Last Taken Unknown] tamsulosin 0.4 mg capsule 0.4 mg PO DAILY@1730 Bladder 10/02/22 [History Last Taken Unknown] tizanidine 2 mg tablet 2 mg PO Q8H PRN PRN muscle spasm #0 tabs 10/02/22 [Rx Last Taken Unknown] tramadol 50 mg tablet 50 mg PO Q8H PRN pain #3 tabs 10/02/22 [Rx Last Taken Unknown] Allergy/AdvReac Type Severity Reaction Status Date / Time amoxicillin trihydrate Allergy Intermediate Rash Verified 09/29/22 14:48 [From Trimox] ? Penicillins Allergy ? Swelling Verified 09/29/22 14:49 Family History? Father CAD (coronary artery disease) CVA (cerebral vascular accident) Hypertension Heart diseaseBrother CAD (coronary artery disease)Mother?? Osteoporosis Surgical History?(Updated 10/02/22 @ 20:[address] Adalberto Willingham MD) H/O total knee replacement History of cardiac radiofrequency ablation (~2000) History of incisional hernia repair History of removal of ovarian cyst History of right hip hemiarthroplasty Hx of cataract surgery Hx of hernia repair Hx of kyphoplasty Social History?(Updated 10/02/22 @ 20:[address] Adalberto Willingham MD) household members:? none Smoking Status:? Never smoker alcohol intake:? never substance use type:? does not use what type of physical activity do you participate in:? none ROS Constitutional Constitutional: Denies chills, fever(s) or weight gain ENT HEENT: Denies headache(s), nasal congestion or nasal discharge Cardiovascular Cardiovascular: Denies chest pain or palpitations Respiratory/Chest Respiratory/Chest: Denies cough, excessive phlegm production or shortness of breath with exertion Gastrointestinal Gastrointestinal: Denies abdominal pain, nausea or vomiting Genitourinary Genitourinary: Denies dysuria Musculoskeletal Musculoskeletal: Denies joint pain or joint swelling Integumentary Integumentary: Denies rash or wounds Neurologic Neurologic: Denies focal weakness, numbness or tingling Psychiatric Psychiatric: Denies anxiety, auditory hallucinations, depression, homicidal ideation or suicidal ideation Physical Exam Const alert General Appearance: cooperative HEENT normocephalic Eyes PERRL and EOMs intact bilaterally Neck supple, no JVD and no carotid bruits Resp normal respiratory effort, normal air movement and clear to auscultation bilaterally Cardio regular rate and regular rhythm GI normal to inspection, nondistended, normoactive bowel sounds, non-tender and non-distended Extremity normal capillary refill General Extremity: Negative for edema Skin no rashes or lesions noted General Skin Exam: no breakdown Psych affect normal Appearance: appropriate Medical Records Data Medical Nutrition Assessment Dietitian: Malnutrition Criteria Met ? Start:? 10/03/22 14:22 Freq:? Status: Active? Protocol:?Document ? ? 10/03/22 14:22? SLA? (Rec: 10/03/22 14:23? SLA? [id number]) ?Nutrition ?? ? Malnutrition ? ? ? Evidence of Malnutrition Exists? Yes ? ? ? Malnutrition (severe): ? Chronic ? ? ? Evidenced By ? Suboptimal Energy Intake ( ? Severe),Weight Loss (Severe), ? Physical Changes (Moderate) ?? ? Clinical Problem ? ? ? Chronic Disease or Condition Related Malnutrition ? Etiology? severe related to inadequate ? energy intake ? Signs/Symptoms? as evidenced by 22.6% ? unintended wt loss and po ? intake meeting <50% of ? estimated nutritional needs x ? 3 years; NFPA indicates ? moderate fat/muscle loss ? throughout body. ? Status? Active Problem ?? ? Recommendation ? ? ? Dietitian Recommendations/Changes? Continue liberal regular diet ? d/t signs/symptoms of ? malnutrition. ? Try chocolate CIB w/ dinner ? tonight - if res likes, then ? change to CIB w/ meals tid and ? d/c Ensure [place] High Protein ? at [facility]. ? Rec consider appetite ? stimulant to help encourage ? increased po intake at meals. Lab / Micro Data Result Diagrams: 10/03/22 05:17? 10/03/22 05:17? Assessment & Plan Assessment/Plan (1) Dysphagia: PLAN: The differential diagnosis for progressive dysphagia does include Sjogren syndrome, cricopharyngeal achalasia in the setting of a Zenker's diverticulum, esophageal dysmotility disorder, Alexa esophagitis secondary to prednisone, methotrexate and Xeljanz, esophageal ring or eosinophilic esophagitis with multiple esophageal rings.? She should undergo an upper endoscopy to evaluate upper GI tract.? If there is no clear abnormality other than the diverticulum then she may need a esophageal manometry.? We also discussed possibility of doing Botox therapy and she has a scheduled appointment to see ENT on 10/20/2022. I have examined the patient and the H&P has been reviewed. There are no clinical changes since date of exam.
--- NOTE | 2022-10-09 13:08 | OP.EGD_ITS ---
Patient Name: Huyen Lakhani Procedure Date: 10/09/2022 12:37 PM Date of : 1940 Age: 82 Procedure: Upper GI endoscopy Indications: Dysphagia, Abnormal cine-esophagram Providers: Jimenez Matthew DO Medicines: Monitored Anesthesia Care Patient Profile: This is an 82 year old female. Refer to note in patient chart for documentation of history and physical. Patient has symptoms of dysphagia with both liquids and solids. 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 Previously obtained barium swallow. Complications: No immediate complications. Procedure: Pre-Anesthesia Assessment: - Prior to the procedure, a History and Physical was performed, and patient medications and allergies were reviewed. The patient is competent. The risks and benefits of the procedure and the sedation options and risks were discussed with the patient. All questions were answered and informed consent was obtained. Patient identification and proposed procedure were verified by the physician in the pre-procedure area. Mental Status Examination: alert and oriented. Prophylactic Antibiotics: The patient does not require prophylactic antibiotics. Prior Anticoagulants: The patient has taken no previous anticoagulant or antiplatelet agents. After reviewing the risks and benefits, the patient was deemed in satisfactory condition to undergo the procedure. The anesthesia plan was to use monitored anesthesia care (MAC). Immediately prior to administration of medications, the patient was re-assessed for adequacy to receive sedatives. The heart rate, respiratory rate, oxygen saturations, blood pressure, adequacy of pulmonary ventilation, and response to care were monitored throughout the procedure. The physical status of the patient was re-assessed after the procedure. After obtaining informed consent, the endoscope was passed under direct vision. Throughout the procedure, the patient's blood pressure, pulse, and oxygen saturations were monitored continuously. The gastroscope was introduced through the mouth, and advanced to the second part of duodenum. The upper GI endoscopy was accomplished without difficulty. The patient tolerated the procedure well. Scope In: 12:52:21 PM Scope Out: 12:59:44 PM Total Procedure Duration Time 0 hours 7 minutes 23 seconds Findings: A non-bleeding Zenker's diverticulum with a small opening, no impacted food and no stigmata of recent bleeding was found. One benign-appearing, intrinsic stenosis was found 16 to 18 cm from the incisors. This stenosis was moderately severe and. The stenosis was traversed. A guidewire was placed and the scope was withdrawn. Dilation was performed with a Savary dilator with no resistance at 45 Fr. The dilation site was examined and showed moderate improvement in luminal narrowing. Estimated blood loss was minimal. A large hiatal hernia was present. No gross lesions were noted in the first portion of the duodenum. Impression: - Zenker's diverticulum. - Benign-appearing esophageal stenosis. Dilated. - Large hiatal hernia. - No gross lesions in the first portion of the duodenum. - No specimens collected. Recommendation: - Discharge patient to home. - Resume previous diet. - Continue present medications. Jimenez Matthew DO 10/09/2022 1:07:46 PM This report has been signed electronically. Number of Addenda: 0 Note Initiated On: 10/09/2022 12:37 PM
--- NOTE | 2022-10-09 13:08 | OP.CCLET_ITS ---
10/09/2022 Aiad Barrera Re : Upper GI endoscopy procedure for Huyen Lakhani Dear Carla This procedure was performed on October. My impressions and recommendations are as follows: Impressions : - Zenker's diverticulum. - Benign-appearing esophageal stenosis. Dilated. - Large hiatal hernia. - No gross lesions in the first portion of the duodenum. - No specimens collected. Recommendations : - Discharge patient to home. - Resume previous diet. - Continue present medications. My findings are described in the full procedure note, which is enclosed. If I can be of further assistance, please feel free to contact me at . Sincerely, Jimenez Matthew, 10/09/2022 1:07:46 PM This report has been signed electronically.
== END 2022-10-09 15:12 | disposition home or self-care (01) ==
LOC: EN 12:35 → AC 12:35
PROVIDERS: PCP Registered Nurse; Referring Provider Registered Nurse; Visit Provider Internal Medicine Gastroenterology
PROC: 0DJ08ZZ Inspection of Upper Intestinal Tract, Via Natural or Artificial Opening Endoscopic (ICD-10-PCS; CPT 43235; principal; 2022-10-09 12:40)
DX: K22.2 Esophageal obstruction (principal); K44.9 Diaphragmatic hernia without obstruction or gangrene; K22.5 Diverticulum of esophagus, acquired; Z79.01 Long term (current) use of anticoagulants; K21.9 Gastro-esophageal reflux disease without esophagitis
CPT/HCPCS: 43248; J7120

== ENCOUNTER 2022-11-27 11:21 | Emergency (ER) | payer MEDICARE, SELFPAY ==
[2022-11-27 11:22] VITALS: BP 137/96; PULSE 100; RESP 16; TEMP 38.6; O2SAT 96; BMI 20.2
--- NOTE | 2022-11-27 11:42 | EX.ED.DYSGE1 ---
HPI History of Present Illness Chief Complaint: Back Detail of Chief Complaint: Not feeling well since November 24 Informant: patient and family Onset/Context/Timing Onset: Days Context: Sudden Onset Timing: Continuous and Waxes and wanes Quality: Sense of unwellness, frequency, shaking chills this morning Location: Generalized Current Severity: Mild Maximum Severity: Moderate Worsened by: Nothing Relieved by: Nothing Associated Symptoms Associated Symptoms: Nausea and vomiting x1 today Narrative Narrative: Patient is an 82-year-old woman with history of rheumatoid arthritis on immunosuppressive meds. Her last dose of methotrexate was 1 week ago. She once when she received the other meds. She has not felt well since Thursday. She had trouble getting up out of bed. She had decreased p.o. intake and poor appetite. Patient states she felt worse on Thursday. She had increased urination starting Thursday. She denies dysuria or hematuria. She states yesterday November 26 she felt a little better. This morning she felt cold and had shaking chills. She states she felt worse after she took a shower. She does endorse thirst and dry mouth as well as orthostatic symptoms. She was not aware that she had a temperature of 101.4. She does complain of vague frontal head discomfort. She also reports rhinorrhea that started this morning. She denies trouble with her ears, hearing or ringing or ears. She denies sore throat. She denies difficulty swallowing. She reported coughing slightly this morning. She denies chest discomfort. She denies shortness of breath. She denies abdominal pain. She had nausea with emesis x1 today. She denies diarrhea. She does have back pain which is worse on the right side. She has not noted a rash. She does complain of aches in her arms and legs. Patient had a total right hip arthroplasty performed in September by Dr. Preston. She was released out of the transitional care unit in October. Recent Illness/Hospitalization: Yes (Total hip arthroplasty on the right) [facility] Medical History Arthritis Back pain Cardiology follow-up encounter Closed head injury Easy bruising Fracture of hip, right, closed Gastric reflux History of hiatal hernia History of irregular heartbeat History of pain when walking History of steroid therapy Injury of back Irregular heart beat Kidney stones MVP (mitral valve prolapse) Normal stress echocardiogram Post-menopausal Premature atrial contraction Premature ventricular contraction Rheumatoid arthritis Sleep apnea Supraventricular tachycardia Wears contact lenses Wears glasses Home Medications methotrexate sodium (PF) 25 mg/mL injection solution 75 mg IM TH Check with primary doctor 11/29/13 [History Last Taken 09/16/21] prednisone 5 mg tablet 5 mg PO DAILY Check with primary doctor 11/29/13 [History Last Taken 07/02/21] alendronate 70 mg tablet (Fosamax) 70 mg PO QWEEK Check with primary doctor 11/10/18 [History Last Taken 10/01/22 12:05] folic acid 400 mcg tablet 0.8 mg PO DAILY@0800 Supplement 11/10/18 [History Last Taken Unknown] celecoxib 200 mg capsule 200 mg PO DAILY PRN Pain 12/12/20 [History Last Taken Unknown] multivitamin 3 tab PO DAILY Supplement 06/25/21 [History Last Taken Unknown] tofacitinib 5 mg tablet (Xeljanz) 5 mg PO BID Check with primary doctor 06/25/21 [History Last Taken 09/16/21] buprenorphine 10 mcg/hour weekly transdermal patch (Butrans) 5 mcg topical QWEEK Check with primary doctor 09/16/21 [History Last Taken 09/27/22] ascorbic acid (vitamin C) 500 mg capsule 500 mg PO DAILY Supplement 05/27/22 [History Last Taken Unknown] cholecalciferol (vitamin D3) 50 mcg (2,000 unit) capsule 50 mcg PO DAILY Supplement 05/27/22 [History Last Taken Unknown] acetaminophen 500 mg tablet 1,000 mg PO Q8 Pain 10/02/22 [History Last Taken Unknown] calcium carbonate 200 mg calcium (500 mg) chewable tablet 500 mg PO TIDCM Check with primary doctor 10/02/22 [History Last Taken Unknown] lansoprazole 30 mg capsule,delayed release (Prevacid) 30 mg PO DAILY Check with primary doctor 10/02/22 [History Last Taken Unknown] tramadol 50 mg tablet 50 mg PO Q8H PRN pain #3 tabs 10/02/22 [Rx Last Taken Unknown] buprenorphine 5 mcg/hour weekly transdermal patch (Butrans) 1 ea transdermal QWEEK #0 ea 10/13/22 [Rx Last Taken Unknown] tizanidine 2 mg tablet 2 mg PO Q8H PRN PRN muscle spasm 30 days #90 tabs 10/13/22 [Rx Last Taken Unknown] rivaroxaban 10 mg tablet (Xarelto) 10 mg PO DAILY #15 TABLETS 10/14/22 [Rx Last Taken Unknown] levofloxacin 500 mg tablet 500 mg PO DAILY #2 tabs 11/27/22 [Rx Last Taken Unknown] Allergy/AdvReac Type Severity Reaction Status Date / Time amoxicillin trihydrate Allergy Intermediate Rash Verified 11/27/22 11:22 [From Trimox] Penicillins Allergy Swelling Verified 11/27/22 11:22 Family History Father CAD (coronary artery disease) CVA (cerebral vascular accident) Hypertension Heart disease Brother CAD (coronary artery disease) Mother Osteoporosis Surgical History H/O total knee replacement History of cardiac radiofrequency ablation (~2000) History of incisional hernia repair History of removal of ovarian cyst History of right hip hemiarthroplasty Hx of cataract surgery Hx of hernia repair Hx of kyphoplasty Social History household members: none Smoking Status: Never smoker alcohol intake: never substance use type: does not use what type of physical activity do you participate in: none ROS ROS ED Constitutional Constitutional ED: Reports chills; Denies sweats or weight loss Eyes Eyes: Denies blurry vision, change in vision or diplopia ENT ENT ED: Denies ear pain, rhinorrhea or sore throat Cardiovascular Cardiovascular: Reports other Details: Orthostatic symptoms ; Denies chest pain, orthopnea, palpitations, paroxysmal nocturnal dyspnea or racing heartbeat Respiratory/Chest Respiratory/Chest: Reports cough; Denies dyspnea, dyspnea on exertion, orthopnea, paroxysmal nocturnal dyspnea or sputum Gastrointestinal Gastrointestinal: Reports nausea and vomiting; Denies abdominal pain, constipation, diarrhea or melena Genitourinary Genitourinary ED: Denies dysuria, hematuria or urinary frequency Musculoskeletal Musculoskeletal: Reports back pain; Denies arthralgias, myalgias or neck pain Integumentary Denies abscess Neurologic Neurologic: Reports headache(s) and weakness; Denies paresthesias Psychiatric Psychiatric: Denies anxiety or depression Endocrine Endocrinology: Denies cold intolerance or heat intolerance Hematologic/Lymphatic Hematologic/Lymphatic: Reports systems reviewed and no addt'l complaints, except as documented EXAM Physical Exam Const Vital Signs: 11/27/22 11:22 11/27/22 12:23 Temperature 101.4 F H Temperature Source Temporal Pulse Rate 100 Respiratory Rate 16 Blood Pressure 137/96 H Blood Pressure Mean 109 Pulse Ox 96 96 Oxygen Delivery Method Room Air Room Air Positive well nourished and well developed Constitutional Narrative: Patient does not appear well. General Appearance ED: well developed, NAD and pallor; Negative for cyanotic or diaphoretic HEENT Reports dry mucous membranes HEENT Narrative: Head is atraumatic normocephalic. Ears normal. Nares patent. Posterior pharynx out erythema or exudate. Uvula is midline. Deviation with protrusion. Mouth ED: Yes dry mucous membranes Mouth: dry mucous membranes Eyes PERRL and EOMs intact bilaterally General Eye ED: Negative for pale conjunctiva or scleral icterus Neck no lymphadenopathy, supple and no JVD Neck Narrative: He has been blind. There is no dysphonia. There is no stridor. Chest Wall inspection of chest normal and palpation of chest normal Resp normal respiratory effort and clear to auscultation bilaterally Cardio regular rate, regular rhythm, S1 normal heart sound, S2 normal heart sound and no murmurs GI normal to inspection, nondistended, normoactive bowel sounds, non-tender, non-distended and no masses; Negative for hepatosplenomegaly Auscultation: hypoactive bowel sounds Palpation: soft Back/Spine General Back: CVA tenderness right Thoracic Spine / Upper Back: Negative for thoracic spinal tenderness Lumbar Spine / Lower Back: Negative for lumbar spinal tenderness Extremity normal to inspection General Extremety ED: Negative for edema or tenderness General Extremity: Negative for edema Neuro oriented x3, CN's II-XII intact bilaterally and no sensory deficits noted Sensorium / Orientation: alert Psych mental status grossly normal Skin no rashes or lesions noted, no wounds and No skin turgor normal General Skin Exam: pallor; Negative for elasticity normal or jaundice MDM MDM MDM Narrative Medical decision making narrative: With patient complaining of shaking chills documented temperature of 101.4 urinary frequency and right CVA tenderness is concerned patient's origin for infection is urologic. Because of her reported allergies to penicillin or amoxicillin she was treated with levofloxacin. This will also cover pulmonary pathogens since she does report cough. Chest x-ray was obtained to evaluate for evidence of pneumonia. Sepsis order set was initiated. A 10 cc/kg bolus of normal saline was ordered especially since clinically she appears dehydrated. Appropriate blood work was obtained to assess for endorgan dysfunction. History & Record Review Additional record(s) reviewed:: Prior inpatient record (Records regarding right total hip arthroplasty.) Lab Data Attestation: I reviewed the patient's lab results. Lab results narrative: White count is normal with shift. Coags are doing. Comp metabolic panel reveals an elevated BUN to creatinine ratio 22:1 and glucose of 162 with a normal CO2 and anion gap. Labs: Laboratory Results - last 24 hr 11/27/22 11/27/22 11/27/22 11:57 12:20 12:45 WBC 10.2 RBC 4.13 L Hgb 12.3 Hct 38.4 MCV 93.0 MCH 29.8 MCHC 32.0 RDW Std Deviation 49.3 H RDW Coeff of Eusebio 14.6 Plt Count 262 MPV 11.4 Immature Gran % (Auto) 0.800 Neut % (Auto) 90.7 H Lymph % (Auto) 2.2 L [place] % (Auto) 5.7 Eos % (Auto) 0.2 Baso % (Auto) 0.4 Absolute Neuts (auto) 9.3 H Absolute Lymphs (auto) 0.22 L Nucleated RBC % 0 Differential Comment COMMENT PT Cancelled 12.0 INR Cancelled 0.9 APTT Cancelled 28.0 Sodium 136 Potassium 3.9 Chloride 102 Carbon Dioxide 27.0 Anion Gap 7 BUN 18 Creatinine 0.81 Estim Creat Clear Calc 40.89 Est GFR (MDRD) Af Amer 87 Est GFR (MDRD) Non-Af 72 BUN/Creatinine Ratio 22.2 H Glucose 162 H Lactic Acid 1.7 Calcium 9.1 Total Bilirubin 0.80 AST 48 H ALT 21 Alkaline Phosphatase 194 H Total Protein 7.1 Albumin 3.3 Globulin 3.8 Albumin/Globulin Ratio 0.9 Urine Color Yellow Urine Clarity Clear Urine pH 5.0 Ur Specific [place] 1.020 Urine Protein 30 H Urine Glucose (UA) Normal Urine Ketones 15 H Urine Occult Blood 25 H Urine Nitrite Negative Urine Bilirubin Negative Urine Urobilinogen 4 H Ur Leukocyte Esterase Negative Urine RBC 0-5 SEEN Urine WBC 0 SEEN Ur Squamous Epith Cells 0 SEEN Urine Bacteria 0 SEEN Urine Mucus 0 SEEN Rhythm Strip Rhythm Strip: Narrow complex tachycardia. There appears to be some type of heart block. Rate: 110 Ectopy: None EKG Initial EKG: Interpretation: Sinus Tachycardia (Rate is 106 with Mobitz type I second-degree heart block. QRS duration 76 ms. QT duration 386 ms. There is evidence of low voltage. Stewart is to the left as well. 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 The automated manufacturing instructor Dr. Leiva was paged through service. Landfill Attendant has attempted to contact patient's nurse practitioner as well.) Treatment and Re-Evaluation :: Since patient is on immunosuppressive meds with fever prescribed short course of levofloxacin. If cultures come back positive will need additional doses of levofloxacin otherwise she can discontinue. Discharge Plan Triage Chief Complaint: Back ED Provider: Tommy Vazquez Dx/Rx/DC Orders Clinical Impression: Rheumatoid arthritis, Acute dehydration, Frequency of urination, Fever and chills Instructions: ED FUO Adult Prescriptions: New levofloxacin [levofloxacin] 500 mg tablet 500 mg PO DAILY Qty: 2 0RF Rx Instructions: Take first dose tomorrow Thursday, November 28 No Action alendronate [Fosamax] 70 mg tablet 70 mg PO QWEEK ascorbic acid (vitamin C) 500 mg capsule 500 mg PO DAILY cholecalciferol (vitamin D3) 50 mcg (2,000 unit) capsule 50 mcg PO DAILY prednisone 5 MG tablet 5 mg PO DAILY methotrexate sodium (PF) 25 MG/ML solution 75 mg IM TH Hold Instructions: Resume on 10/15/21. Patient Comments: HOLD WEEK OF SURGERY-PER DR. HOLDEN folic acid 400 mcg tablet 0.8 mg PO DAILY@0800 celecoxib 200 mg capsule 200 mg PO DAILY PRN (Reason: Pain) multivitamin Tablet 3 tab PO DAILY Xeljanz 5 mg tablet 5 mg PO BID Hold Instructions: Resume on 10/09/22. buprenorphine [Butrans] 10 mcg/hour patch weekly 5 mcg topical QWEEK Patient Comments: Thursday tramadol 50 mg tablet 50 mg PO Q8H PRN (Reason: pain) Qty: 3 0RF acetaminophen 500 mg tablet 1,000 mg PO Q8 lansoprazole [Prevacid] 30 mg capsule,delayed release(DR/EC) 30 mg PO DAILY calcium carbonate 200 mg calcium (500 mg) tablet,chewable 500 mg PO TIDCM tizanidine 2 mg Tablet 2 mg PO Q8H PRN PRN (Reason: muscle spasm) 30 Days Qty: 90 0RF buprenorphine [Butrans] 5 mcg/hour Patch Weekly 1 ea transdermal QWEEK Qty: 0 0RF Xarelto 10 mg tablet 10 mg PO DAILY Qty: 15 0RF Primary Care Provider: Milagros Aguirre NP Referrals: Katarina Holden MD [Med Staff - Vice President And Portfolio Manager] - As soon as possible Milagros Aguirre NP, IN [employer] REPA[employer] [Primary Care Provider] - 2 Days Activity Restrictions/Additional Instructions: Contact Dr. Holden regarding your next dose of medication to treat your rheumatoid arthritis since you have a fever. Take antibiotics starting tomorrow. If your cultures are positive you will be contacted and will have Prescribe appropriate duration of medication. If your blood cultures are positive you will be asked to return. Disposition Disposition: Home, Self Care
[2022-11-27 12:09] LABS: Absolute Lymphocyte Count 0.22 X10^3/uL (0.83-4.51); Absolute Neutrophil Count 9.3 X10^3/uL (2.0-7.7); Basophil# 0.04 X10^3/uL; Basophil% 0.4 % (0-1); Eosinophil# 0.02 X10^3/uL; Eosinophils% 0.2 % (0-5); Hematocrit 38.4 % (37-47); Hemoglobin 12.3 g/dL (12.0-15.0); Lymphocyte # 0.22 X10^3/ul (0.83-4.51); Lymphocyte % 2.2 % (19-41); Mean Corpuscular Hgb 29.8 pg (27.0-32.0); Mean Platelet Vol. 11.4 fl (6.2-12.0); Monocyte# 0.58 X10^3/uL; Monocyte% 5.7 % (0-10); NRBC Flagged by Analyzer 0 % (0-5); Neutrophil # 9.29 X10^3/uL (2.7-7.7); Neutrophil % 90.7 % (47-70); POSITIVE DIFFERENTIAL YES; Platelet Count 262 K/mm3 (150-450); RBC Distribution Width CV 14.6 % (11.6-14.6); RBC Distribution Width SD 49.3 fl (35.1-43.9); Red Blood Count 4.13 M/mm3 (4.2-5.4); White Blood Count 10.2 K/mm3 (4.4-11.0)
[2022-11-27 12:10] LABS: Differential Indicated SCAN CRITERIA MET
[2022-11-27 12:23] VITALS: O2SAT 96
[2022-11-27 12:24] LABS: ALB/GLOB Ratio 0.9 RATIO (0.9-2.4); AST(SGOT) 48 U/L (15-37); Alanine Aminotransfer ALT/SGPT 21 U/L (13-56); Albumin, Serum 3.3 g/dL (3.2-5.0); Alkaline Phosphatase 194 U/L (45-117); Anion Gap 7 (5-15); BUN 18 mg/dL (7-18); BUN/Creat Ratio 22.2 RATIO (10-20); Calcium,Total 9.1 mg/dL (8.5-10.1); Chloride 102 mmol/L (98-107); Creatinine, Serum 0.81 mg/dL (0.55-1.02); EST Glomerular Filtration Rate 72 mL/min (>60); Est Glom Filt Rate - Afr Amer 87 mL/min (>60); Estimated Creatinine Clearance 40.89 ml/min; Globulin 3.8 g/dL (2.2-4.2); Glucose 162 mg/dL (74-106); Potassium 3.9 mmol/L (3.5-5.1); Protein, Total 7.1 g/dL (6.4-8.2); Sodium Level 136 mmol/L (136-145)
[2022-11-27] MEDS: Acetaminophen 325 MG Tablet PO (12:28)
[2022-11-27] MEDS: levoFLOXacin IV 750 MG/150 ML BAG 100 MG IV (12:29)
--- NOTE | 2022-11-27 12:30 | RAD_ITS ---
STUDY: X-RAY CHEST REASON FOR EXAM: Female, 82 years old. Fever, shortness of breath TECHNIQUE: PA and 2 lateral views of the chest. COMPARISON: None. FINDINGS: Lungs are hyperexpanded with chronic interstitial changes, no superimposed acute pulmonary process. There is no demonstrated pleural abnormality. Normal size heart. Normal mediastinum and dian. Normal visualized pulmonary arteries. Normal visualized aortic arch and descending thoracic aorta. There are diffuse degenerative changes of the visualized thoracic spine. There is degenerative osteoarthritis of the bilateral shoulders. There is no demonstrated abnormality of the visualized soft tissue structures of the upper abdomen. RAD/Chest PA and Lateral IMPRESSION: Hyperexpanded lungs, no superimposed acute pulmonary process Electronically Signed: Catarino Ramírez MD at 12:49 EDT ,
[2022-11-27 12:41] LABS: International Normalized Ratio 0.9
[2022-11-27 12:43] LABS: Lactic Acid 1.7 mmol/L (0.4-1.9)
[2022-11-27 12:51] LABS: Bacteria 0 SEEN /hpf (None Seen); Mucous, Urine 0 SEEN /hpf (<or=2+); Squamous Epithelial Cells - UA 0 SEEN /hpf (5-10); White Blood Cells 0 SEEN /hpf (0-5)
[2022-11-27 12:56] LABS: Color, Urine Yellow (Yellow); Glucose, Dipstick Normal (Normal); Ketone-Dipstick 15 mg/dl (Negative); Leukocyte Esterase-Dipstick Negative /ul (Negative); Nitrite-Dipstick Negative (Negative); Occult Blood-Urine 25 /ul (Negative); Protein-Dipstick 30 mg/dl (Negative); Urine Bilirubin Dipstick Negative (Negative); Urine Clarity Clear (Clear); Urine Urobilinogen 4 mg/dl (Normal)
[2022-11-27 13:18] LABS: Red Blood Cells-Urine 0-5 SEEN /hpf (0-5)
[2022-11-27 14:43] VITALS: BP 132/87; PULSE 95; RESP 16; TEMP 37.2; O2SAT 97
== END 2022-11-27 14:45 | disposition home or self-care (01) ==
PROVIDERS: Emergency Provider Emergency Medicine; PCP Registered Nurse; Visit Provider Emergency Medicine
DX: E86.0 Dehydration (principal); M06.9 Rheumatoid arthritis, unspecified; R35.0 Frequency of micturition; Z96.641 Presence of right artificial hip joint; R50.9 Fever, unspecified; Z79.899 Other long term (current) drug therapy
CPT/HCPCS: 71046; 80053; 81001; 83605; 85025; 85610; 85730; 87040; 87086; 93005; 96365; 96366; 99285; J7030; A4216

== ENCOUNTER 2022-11-27 21:57 | Observation (INO) | payer MEDICARE, SELFPAY ==
[2022-11-27 21:58] VITALS: BP 138/74; PULSE 88; RESP 16; TEMP 38.2; O2SAT 93; BMI 21.4
--- NOTE | 2022-11-27 22:23 | CT_ITS ---
STUDY: CT BRAIN WITHOUT CONTRAST REASON FOR EXAM: Female, 82 years old. confusion RADIATION DOSAGE (If Supplied By Facility): CTDIvol = ( 44.99 ) mGy, DLP = ( 815.79 ) mGycm TECHNIQUE: Transaxial CT imaging of the brain was performed without administration of intravenous contrast material. Individualized dose optimization techniques were used for this CT. COMPARISON: 09/29/2022 FINDINGS: Normal soft tissue structures. Normal calvarium. There is mild cerebral atrophy with widening of the extra-axial spaces and ventricular dilatation. There are areas of decreased attenuation within the white matter tracts of the supratentorial brain, consistent with microvascular disease changes. Normal basal ganglia and thalami. Normal brainstem. Normal cerebellum. There is no intracranial hemorrhage. There are no findings of an acute ischemic infarction. Normal visualized paranasal sinuses. CT/Brain/Head without Contrast IMPRESSION: Chronic involutional changes of the brain. Electronically Signed: Hever Patten MD at 23:15 EDT ,
--- NOTE | 2022-11-27 22:26 | EX.ED.DYSGE1 ---
HPI History of Present Illness Chief Complaint: Weakness Informant: patient and family (daughter) Narrative Narrative: 82-year-old not feeling well for the last couple days, she was seen here in the ER earlier today almost 12 hours ago, the only thing that is different is that family talk to her on the phone and they were in different towns and the patient thought that she was in her basement. The daughter who is here states that the conversation occurred with the other daughter who is a nurse and so she called for an ambulance and for her to come back to the hospital. Details of the visit are not available from the patient and her family, but I did review it in the EMR. Patient states she is not confused. The daughter who is here disagrees with her. As per prior visit history, patient did not recognize any fevers prior to being in the ER, apparently she had a temperature of 101.4 the last time earlier today and now it is 100.7. She had some nausea and vomiting earlier after she took some sips of water, and she has chronic diarrhea for months and that is no different now. Has complained of a headache she states it is bifrontal and on top of her head and between my ears and she has back pain that is not new, family states she has a history of a problem at T4 with chronic pain there and lower in her back. She denies any trouble urinating when she went earlier at home. [facility] Medical History Arthritis Back pain Cardiology follow-up encounter Closed head injury Easy bruising Fracture of hip, right, closed Gastric reflux History of hiatal hernia History of irregular heartbeat History of pain when walking History of steroid therapy Injury of back Irregular heart beat Kidney stones MVP (mitral valve prolapse) Normal stress echocardiogram Post-menopausal Premature atrial contraction Premature ventricular contraction Rheumatoid arthritis Sleep apnea Supraventricular tachycardia Wears contact lenses Wears glasses Home Medications methotrexate sodium (PF) 25 mg/mL injection solution 75 mg IM TH Check with primary doctor 11/29/13 [History Last Taken 09/16/21] prednisone 5 mg tablet 5 mg PO DAILY Check with primary doctor 11/29/13 [History Last Taken 07/02/21] alendronate 70 mg tablet (Fosamax) 70 mg PO QWEEK Check with primary doctor 11/10/18 [History Last Taken 10/01/22 12:05] folic acid 400 mcg tablet 0.8 mg PO DAILY@0800 Supplement 11/10/18 [History Last Taken Unknown] celecoxib 200 mg capsule 200 mg PO DAILY PRN Pain 12/12/20 [History Last Taken Unknown] multivitamin 3 tab PO DAILY Supplement 06/25/21 [History Last Taken Unknown] tofacitinib 5 mg tablet (Xeljanz) 5 mg PO BID Check with primary doctor 06/25/21 [History Last Taken 09/16/21] ascorbic acid (vitamin C) 500 mg capsule 500 mg PO DAILY Supplement 05/27/22 [History Last Taken Unknown] cholecalciferol (vitamin D3) 50 mcg (2,000 unit) capsule 50 mcg PO DAILY Supplement 05/27/22 [History Last Taken Unknown] acetaminophen 500 mg tablet 1,000 mg PO Q8 Pain 10/02/22 [History Last Taken Unknown] calcium carbonate 200 mg calcium (500 mg) chewable tablet 500 mg PO TIDCM Check with primary doctor 10/02/22 [History Last Taken Unknown] lansoprazole 30 mg capsule,delayed release (Prevacid) 30 mg PO DAILY Check with primary doctor 10/02/22 [History Last Taken Unknown] tramadol 50 mg tablet 50 mg PO Q8H PRN pain #3 tabs 10/02/22 [Rx Last Taken Unknown] buprenorphine 5 mcg/hour weekly transdermal patch (Butrans) 1 ea transdermal QWEEK #0 ea 10/13/22 [Rx Last Taken Unknown] rivaroxaban 10 mg tablet (Xarelto) 10 mg PO DAILY #15 TABLETS 10/14/22 [Rx Last Taken Unknown] levofloxacin 500 mg tablet 500 mg PO DAILY #2 tabs 11/27/22 [Rx Last Taken Unknown] Allergy/AdvReac Type Severity Reaction Status Date / Time amoxicillin trihydrate Allergy Intermediate Rash Verified 11/27/22 11:22 [From Trimox] Penicillins Allergy Swelling Verified 11/27/22 11:22 Family History Father CAD (coronary artery disease) CVA (cerebral vascular accident) Hypertension Heart disease Brother CAD (coronary artery disease) Mother Osteoporosis Surgical History H/O total knee replacement History of cardiac radiofrequency ablation (~2000) History of incisional hernia repair History of removal of ovarian cyst History of right hip hemiarthroplasty Hx of cataract surgery Hx of hernia repair Hx of kyphoplasty Social History household members: none Smoking Status: Never smoker alcohol intake: never substance use type: does not use what type of physical activity do you participate in: none ROS ROS ED Constitutional Constitutional ED: Reports fatigue and weakness; Denies chills or fever(s) Eyes Eyes: Denies change in vision or diplopia ENT ENT ED: Denies rhinorrhea or sore throat Cardiovascular Cardiovascular: Denies chest pain or palpitations Respiratory/Chest Respiratory/Chest: Denies cough or dyspnea Gastrointestinal Gastrointestinal: Reports diarrhea, nausea and vomiting; Denies abdominal pain Genitourinary Genitourinary ED: Denies dysuria or hematuria Musculoskeletal Musculoskeletal: Reports back pain; Denies neck pain Integumentary Denies abscess or rash Neurologic Neurologic: Reports confusion and headache(s); Denies paresthesias or weakness Psychiatric Psychiatric: Denies anxiety or suicidal thoughts EXAM Physical Exam Const Vital Signs: 11/27/22 21:58 11/27/22 22:03 Temperature 100.7 F H Temperature Source Oral Pulse Rate 88 Respiratory Rate 16 Respiratory Effort Normal Non-Labored Respiratory Pattern Normal Blood Pressure 138/74 H Blood Pressure Mean 95 Pulse Ox 93 Oxygen Delivery Method Room Air Positive well nourished and well developed General Appearance ED: well developed and NAD HEENT HEENT Narrative: Dry lips. Patient states she is thirsty. normocephalic and atraumatic Eyes PERRL and EOMs intact bilaterally Neck full ROM, no lymphadenopathy and supple Chest Wall inspection of chest normal and palpation of chest normal Resp normal respiratory effort and clear to auscultation bilaterally Cardio regular rate, regular rhythm and no murmurs Rate: other Other Details: Occasional irregularity. No tachycardia or bradycardia. GI non-tender and non-distended Auscultation: normoactive bowel sounds Palpation: soft Back/Spine Back/Spine Narrative: Mild tenderness with Pradeep's punch bilateral CVA and with midline palpation upper thoracic spine no step-off, skin abnormalities, rash, or crepitance. General Back: other FROM Extremity normal to inspection General Extremety ED: Negative for edema, pulses abnormal or tenderness General Extremity: Negative for edema or pulses abnormal Neuro oriented x3, CN's II-XII intact bilaterally and no sensory deficits noted Neuro Narrative: Oriented x3, but needs to be prompted repeatedly to provide the answers although they are correct when she does so. Does seem mildly disoriented with conversation at times, patient states she is not disoriented and it is because I do not hear well. No aphasia or dysarthria. Sensorium / Orientation: awake and alert Motor Exam: general weakness Skin no rashes or lesions noted and no wounds MDM MDM MDM Narrative Medical decision making narrative: I reviewed the prior visit. I think the management was extremely reasonable. It was a septic work-up given her temperature, and although no source of infection or weakness was found except for dehydration, she was placed on empiric levofloxacin because of a relative immunocompromise state being on methotrexate for rheumatoid arthritis. She does have some CVA tenderness for me to, it is bilateral and nonspecific, she has pain throughout her back but is able to sit up with assistance without a significant degree of difficulty, and her urinalysis from earlier was negative for infection although it was concentrated. 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 I reviewed the images as well as the radiology interpretation which I agree with, basically negative for anything acute. Her chemistries are improved, with regards to her prerenal azotemia, a little. I reviewed her 2 view chest x-ray from earlier today, I agree it does not show acute consolidation/pneumonia. We gave her Tylenol for her temperature and some gentle IV fluids while waiting for the work-up. In talking to the patient more about her back, she states she does have chronic pain in her mid-low back as well as up closer to T4, and it is significantly worse in the last few days since she has been feeling weak. My concern is that she is on methotrexate and relatively immunocompromise due to that and could have developed discitis that is causing this fever. Also in the differential is low-grade fevers related to rheumatoid arthritis itself and not because of an acute infection. She is here late at night when MRI is not readily available. Her most recent imaging of the lower back is a lumbar spine MRI January 2019 that showed multilevel disc disease, multilevel spinal stenosis and severe scoliosis as well as a compression fracture superior endplate of L2. Discussed all this w/ Dr. Simon w/ spine surgery; agrees that especially given that pt has already had some empiric antibiotics, admitting for further evaluation including urgent nonemergent MRI of the affected area of the back to rule out discitis tomorrow when MRI available is most reasonable. Lab Data Attestation: I reviewed the patient's lab results. Labs: Laboratory Results - last 24 hr 11/27/22 22:29 Sodium 134 L Potassium 3.8 Chloride 101 Carbon Dioxide 27.0 Anion Gap 6 BUN 14 Creatinine 0.80 Estim Creat Clear Calc 41.40 Est GFR (MDRD) Af Amer 88 Est GFR (MDRD) Non-Af 73 BUN/Creatinine Ratio 17.6 Glucose 140 H Calcium 8.7 Radiography Diagnostic Testing: Clinical Impression(s) from Imaging Studies Brain CT 11/27/22 22:23 IMPRESSION: Chronic involutional changes of the brain. Electronically Signed: Hever Patten MD at 23:15 EDT Reading Location ID and State: [facility] hospital [facility] [place] Tel , Service support , Management Discussion w/another healthcare provider: Hospitalist and Regional Climate Change Analyst (Spine Dr. Simon) Discharge Plan Triage Chief Complaint: Weakness ED Provider: Eb Kendrick Dx/Rx/DC Orders Clinical Impression: Fever, Back pain Prescriptions: No Action alendronate [Fosamax] 70 mg tablet 70 mg PO QWEEK ascorbic acid (vitamin C) 500 mg capsule 500 mg PO DAILY cholecalciferol (vitamin D3) 50 mcg (2,000 unit) capsule 50 mcg PO DAILY prednisone 5 MG tablet 5 mg PO DAILY methotrexate sodium (PF) 25 MG/ML solution 75 mg IM TH Hold Instructions: Resume on 10/15/21. Patient Comments: HOLD WEEK OF SURGERY-PER DR. HOLDEN folic acid 400 mcg tablet 0.8 mg PO DAILY@0800 celecoxib 200 mg capsule 200 mg PO DAILY PRN (Reason: Pain) multivitamin Tablet 3 tab PO DAILY Xeljanz 5 mg tablet 5 mg PO BID Hold Instructions: Resume on 10/09/22. tramadol 50 mg tablet 50 mg PO Q8H PRN (Reason: pain) Qty: 3 0RF acetaminophen 500 mg tablet 1,000 mg PO Q8 lansoprazole [Prevacid] 30 mg capsule,delayed release(DR/EC) 30 mg PO DAILY calcium carbonate 200 mg calcium (500 mg) tablet,chewable 500 mg PO TIDCM buprenorphine [Butrans] 5 mcg/hour Patch Weekly 1 ea transdermal QWEEK Qty: 0 0RF Xarelto 10 mg tablet 10 mg PO DAILY Qty: 15 0RF levofloxacin [levofloxacin] 500 mg tablet 500 mg PO DAILY Qty: 2 0RF Rx Instructions: Take first dose tomorrow November 28 Primary Care Provider: Milagros Aguirre NP Referrals: Milagros Aguirre NP, [employer] [Primary Care Provider] - Disposition Disposition: [facility] Capacity Capacity Assessment Tool Can the patient make a choice & communicate that choice?: Yes Can the patient understand benefits, risks and alternatives?: Yes Can the patient make a logical, rational choice?: Yes Is the choice the patient makes consistent w/ their values?: Yes Is there an impending, emergent risk to the patient?: No Does the patient have an Advance Directive?: No Is there a Surrogate Available?: Yes i.e. close relative (spouse, child, parent, sibling)?: Yes
[2022-11-27] MEDS: Acetaminophen 500 MG Tablet 1000 MG PO (22:32)
[2022-11-27] MEDS: Ondansetron 4 MG/2 ML Vial IV (22:32)
[2022-11-27] MEDS: 0.9% Normal Saline 1,000 ML 200 ML IV (22:32)
[2022-11-27 23:05] LABS: Anion Gap 6 (5-15); BUN 14 mg/dL (7-18); BUN/Creat Ratio 17.6 RATIO (10-20); Calcium,Total 8.7 mg/dL (8.5-10.1); Chloride 101 mmol/L (98-107); EST Glomerular Filtration Rate 73 mL/min (>60); Est Glom Filt Rate - Afr Amer 88 mL/min (>60); Glucose 140 mg/dL (74-106); Potassium 3.8 mmol/L (3.5-5.1); Sodium Level 134 mmol/L (136-145)
[2022-11-28] VITALS (9 sets, daily range): BP systolic 86–148; BP diastolic 52–96; PULSE 64–113; RESP 16–20; TEMP 36.6–37.5; O2SAT 94–98; BMI 21.0
--- NOTE | 2022-11-28 00:55 | PCM.HP.STD ---
HPI - General General Date of Admission: 11/28/22 Date of Service: 11/28/22 Chief Complaint: Back pain HPI Narrative ESTEBAN VALERIO, is a 82 F with a significant history of rheumatoid arthritis who presents to the emergency department with excruciating back pain that started 3 days before presentation. Associated with her symptomis fever. On the same day of presentation patient was at the emergency department 2 times. After discharge from the hospital the first time patient became confused. [facility] Medical History Arthritis Back pain Cardiology follow-up encounter Closed head injury Easy bruising Fracture of hip, right, closed Gastric reflux History of hiatal hernia History of irregular heartbeat History of pain when walking History of steroid therapy Injury of back Irregular heart beat Kidney stones MVP (mitral valve prolapse) Normal stress echocardiogram Post-menopausal Premature atrial contraction Premature ventricular contraction Rheumatoid arthritis Sleep apnea Supraventricular tachycardia Wears contact lenses Wears glasses Home Medications methotrexate sodium (PF) 25 mg/mL injection solution 75 mg IM TH Check with primary doctor 11/29/13 [History Last Taken 11/20/22] prednisone 5 mg tablet 5 mg PO DAILY Check with primary doctor 11/29/13 [History Last Taken 11/25/22] alendronate 70 mg tablet (Fosamax) 70 mg PO QWEEK Check with primary doctor 11/10/18 [History Last Taken 11/26/22] folic acid 400 mcg tablet 0.8 mg PO DAILY@0800 Supplement 11/10/18 [History Last Taken Unknown] celecoxib 200 mg capsule 200 mg PO DAILY PRN Pain 12/12/20 [History Last Taken Unknown] multivitamin 3 tab PO DAILY Supplement 06/25/21 [History Last Taken 11/24/22] tofacitinib 5 mg tablet (Xeljanz) 5 mg PO BID Check with primary doctor 06/25/21 [History Last Taken 11/27/22] ascorbic acid (vitamin C) 500 mg capsule 500 mg PO DAILY Supplement 05/27/22 [History Last Taken 11/24/22] cholecalciferol (vitamin D3) 50 mcg (2,000 unit) capsule 50 mcg PO DAILY Supplement 05/27/22 [History Last Taken 11/24/22] acetaminophen 500 mg tablet 1,000 mg PO Q8 Pain 10/02/22 [History Last Taken 11/27/22] calcium carbonate 200 mg calcium (500 mg) chewable tablet 500 mg PO TIDCM Check with primary doctor 10/02/22 [History Last Taken Unknown] lansoprazole 30 mg capsule,delayed release (Prevacid) 30 mg PO DAILY Check with primary doctor 10/02/22 [History Last Taken 11/27/22] tramadol 50 mg tablet 50 mg PO Q8H PRN pain #3 tabs 10/02/22 [Rx Last Taken 11/27/22] buprenorphine 5 mcg/hour weekly transdermal patch (Butrans) 1 ea transdermal QWEEK #0 ea 10/13/22 [Rx Last Taken 11/22/22] levofloxacin 500 mg tablet 500 mg PO DAILY #2 tabs 11/27/22 [Rx Last Taken Unknown] Allergy/AdvReac Type Severity Reaction Status Date / Time amoxicillin trihydrate Allergy Intermediate Rash Verified 11/27/22 11:22 [From Trimox] Penicillins Allergy Swelling Verified 11/27/22 11:22 Family History Father CAD (coronary artery disease) CVA (cerebral vascular accident) Hypertension Heart disease Brother CAD (coronary artery disease) Mother Osteoporosis Surgical History H/O total knee replacement History of cardiac radiofrequency ablation (~2000) History of incisional hernia repair History of removal of ovarian cyst History of right hip hemiarthroplasty Hx of cataract surgery Hx of hernia repair Hx of kyphoplasty Social History household members: none Smoking Status: Never smoker alcohol intake: never substance use type: does not use what type of physical activity do you participate in: none ROS ROS Narrative Pertinent positives and pertinent negatives as noted in HPI. All other systems were reviewed and are negative Vital Signs Vital Signs Vital Signs: 11/27/22 21:58 11/27/22 22:03 11/28/22 00:45 Temperature 100.7 F H Temperature Source Oral Pulse Rate 88 76 Respiratory Rate 16 16 Respiratory Effort Normal Non-Labored Respiratory Pattern Normal Blood Pressure 138/74 H 92/52 L Blood Pressure Mean 95 65 Pulse Ox 93 Oxygen Delivery Method Room Air Weight Weight: 53.1 kg Body Mass Index (BMI) 21.4 Physical Exam Narrative Physical exam: General: Well-nourished, well-developed. Head: Normocephalic, atraumatic, no tenderness Eyes: Vision is grossly intact. EOMI ENT, no trauma, moist mucous membranes, no rhinorrhea Neck: Nontender, No thyromegaly. CVS: Regular rate and rhythm. S1-S2 present. No murmur, gallop or rub. Respiratory : clear to auscultation bilaterally, chest wall nontender Abdomen: Soft, nontender, nondistended, normal bowel sounds, no masses : Deferred Back: Nontender, no CVA tenderness, no midline spinal tenderness, deformities, step-offs Extremities: Nontender full range of motion, no trauma Skin: Normal color, no trauma, abrasions Neuro: Alert, oriented, cranial nerves II through XII grossly intact. Psychiatry: Normal mood. Normal affect. Not depressed. Not anxious. Results Lab / Micro Data 11/27/22 22:29 Labs: Laboratory Results - last 24 hr 11/27/22 22:29: Sodium 134 L, Potassium 3.8, Chloride 101, Carbon Dioxide 27.0, Anion Gap 6, BUN 14, Creatinine 0.80, Estim Creat Clear Calc 41.40, Est GFR (MDRD) Af Amer 88, Est GFR (MDRD) Non-Af 73, BUN/Creatinine Ratio 17.6, Glucose 140 H, Calcium 8.[address] 11/27/22 22:23 IMPRESSION: Chronic involutional changes of the brain. Electronically Signed: Hever Patten MD at 23:15 EDT , Assessment & Plan Assessment/Plan (1) Febrile illness, acute: PLAN: Plan Acute febrile illness Etiology unclear. No sports tenderness to assume discitis. We will hold off further antibiotics at this time. Will check MRI of back. We will check flu and COVID. Urinalysis not revealing. Urine culture ordered in the ED, follow. Blood culture ordered in the ED, follow. We will get MRI of back. Hold off immunosuppressants. Tramadol as needed continued. Impression of Head CT by radiology: Chronic involutional changes of the brain. Head CT was independently interpreted and I agree with radiologist interpretation. Tylenol as needed ordered. CBC showed normal white count. Trend. Check ESR and CRP. Paroxysmal A-fib Stable Xarelto continued DVT prophylaxis: Xarelto continued. Time spent in the patient's overall evaluation,decision-making process, review of diagnostic data, adjustment of management, discussion with other providers, nursing nursing and ancillary staff involved in patient's care documentation, 52 minutes. Charges/Coding Visit Charges Inpatient E&M: 26112 Init Hosp L2
--- NOTE | 2022-11-28 02:06 | MRI_ITS ---
STUDY: MRI THORACIC SPINE WITH AND WITHOUT CONTRAST REASON FOR EXAM: Female, 82 years old. Discitis, fever and back pain, covid + TECHNIQUE: IV 10 cc clariscan was administered for the contrast portion of the examination. COMPARISON: None. FINDINGS: Normal kyphosis of the thoracic spine. There is no substantial scoliosis. Old compression fractures of T7 and T8 status post kyphoplasty. There is retropulsion of the inferior endplate of T8 and disc narrowing the spinal canal but without cord compression. There is narrowing of T6-7 T7-8 and T8-9 disc spaces. There is tiny central disc protrusion at T6-7 mildly narrowing the spinal canal. . Grade 1 retrolisthesis at T12-L1. Narrowed disc space with mild bulging disc osteophyte complex mildly narrowing the spinal canal without cord compression Normal visualized thoracic cord. Normal conus medullaris that terminates at T12-L1 The soft tissue structures are unremarkable. There is no enhancing abnormality. MRI/Spine Thoracic W/WO Contrast IMPRESSION: No evidence for acute fracture or other significant bony pathology. . Old compression fractures of T7 and T8 status post kyphoplasty. Spondylosis and mild multilevel spinal stenosis without cord compression. No evidence for acute osteomyelitis or discitis Electronically Signed: Erik Ruiz MD at 17:16 EDT ,
--- NOTE | 2022-11-28 02:06 | MRI_ITS ---
STUDY: MRI LUMBAR SPINE WITH AND WITHOUT CONTRAST REASON FOR EXAM: Female, 82 years old. Discitis Discitis, fever and back pain, covid + TECHNIQUE: Standardized fat and water weighted pulse sequences were obtained in the sagittal and axial planes. IVclariscan 10 cc was administered for the contrast portion of the examination. COMPARISON: None FINDINGS: . Normal lumbar lordosis. There is severe levo scoliosis. Normal conus medullaris that terminates at T12-L1 L1-2: Grade 1 retrolisthesis. Narrowed disc space with degenerative endplate changes Desiccation of disc and mild to moderate bulging disc osteophyte complex. Facet arthropathy on the right. Mild narrowing the central canal. Moderate right lateral recess stenosis and severe bilateral neural foraminal stenosis. L2-3: Narrowed disc space with desiccation of the disc and small right foraminal disc protrusion. Mild facet arthropathy. Normal central canal and bilateral lateral recesses. Mild right neural foraminal stenosis. L3-4: Degenerative endplate changes. Mildly narrowed disc space with desiccation of the disc and mild to moderate annular bulge. Bilateral facet arthropathy slightly worse on the right. Mild narrowing of the central canal. Moderate right lateral recess stenosis. Severe bilateral neural foraminal stenosis L4-5: Grade 1 spondylolisthesis. Normal disc space height with desiccation of disc and mild bulging disc osteophyte complex. Facet arthropathy and thickening of ligamenta flava more severe on the left. Mild narrowing of the central canal. Normal bilateral lateral recesses. Severe bilateral neural foraminal stenosis worse on the left L5-S1: Normal endplates. Normal disc height, desiccation and mild annular bulge.. Mild facet arthropathy slightly worse on the left. Normal central canal and bilateral lateral recesses. Moderate right neural foraminal stenosis and more severe narrowing on the left. Normal visualized sacral ala. 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 Normal visualized paraspinous soft tissue structures. No enhancement following contrast administration. MRI/Spine Lumbar W/WO Contrast IMPRESSION: Severe scoliosis and degenerative changes. Multilevel spinal stenosis secondary to disc disease and facet arthropathy. No evidence for acute osteomyelitis or discitis Electronically Signed: Erik Ruiz MD at 17:27 EDT ,
--- NOTE | 2022-11-28 02:06 | MRI_ITS ---
STUDY: MRI CERVICAL SPINE WITH AND WITHOUT CONTRAST REASON FOR EXAM: Female, 82 years old. Discitis, fever and back pain, covid + TECHNIQUE: Standardized fat and water weighted pulse sequences were obtained in the sagittal and axial following administration of iv 10 cc clariscan. COMPARISON: CT scan of the cervical spine September 29, 2022 FINDINGS: Normal foramen magnum and brainstem-cervical cord junction. Normal craniovertebral junction. Normal anterior atlantoaxial articulation. Normal odontoid process. Normal cervical lordosis. Normal vertebral bodies and posterior osseous elements. C2-3: Normal endplates. Normal disc height, signal and morphology. Normal central canal and intervertebral neural foramina. C3-4: Normal endplates. Narrowed disc space and minor bulging of the disc.. Mild narrowing of the central canal. Minor bilateral neural foraminal encroachment secondary to bony hypertrophy.. C4-5: Normal endplates. Narrowed disc space and minor bulging of the disc with small right foraminal disc/osteophyte protrusion. Normal central canal. Moderate right neural foraminal stenosis secondary to disc and bony hypertrophy. C5-6: Normal endplates. Narrowed disc space and minor bulging of the disc.. Normal central canal. Minor bilateral neural foraminal encroachment secondary to bony hypertrophy. C6-7: Normal endplates. Narrowed disc space and minor bulging of the disc.. Mild narrowing of the central canal. Minor bilateral neural foraminal encroachment secondary to bony hypertrophy.. C7-T1: Normal endplates. Normal disc height, signal and tiny right paracentral disc protrusion. Normal central canal and intervertebral neural foramina. Normal cervical cord. Normal visualized soft tissue structures. MRI/Spine Cervical W/WO Contrast IMPRESSION: Spondylosis and mild multilevel spinal stenosis secondary to disc disease and bony hypertrophy. No evidence for cord compression or focal cord pathology. No enhancing lesions to suggest osteomyelitis and discitis. Electronically Signed: Erik Ruiz MD at 17:10 EDT ,
[2022-11-28] MEDS: 0.9% Normal Saline 1,000 ML 100 ML IV ×2 (02:27→09:10)
[2022-11-28] MEDS: Acetaminophen 325 MG Tablet 650 MG PO (04:46)
[2022-11-28 06:47] LABS: Absolute Lymphocyte Count 0.21 X10^3/uL (0.83-4.51); Absolute Neutrophil Count 7.1 X10^3/uL (2.0-7.7); Basophil# 0.02 X10^3/uL; Basophil% 0.2 % (0-1); Eosinophil# 0.01 X10^3/uL; Eosinophils% 0.1 % (0-5); Hematocrit 32.1 % (37-47); Hemoglobin 9.9 g/dL (12.0-15.0); Lymphocyte # 0.21 X10^3/ul (0.83-4.51); Lymphocyte % 2.6 % (19-41); Mean Corp Hgb Conc 30.8 g/dL (32-36); Mean Corpuscular Hgb 29.5 pg (27.0-32.0); Mean Corpuscular Volume 95.5 fL (81-99); Mean Platelet Vol. 11.5 fl (6.2-12.0); Monocyte# 0.78 X10^3/uL; Monocyte% 9.6 % (0-10); NRBC Flagged by Analyzer 0 % (0-5); Neutrophil # 7.07 X10^3/uL (2.7-7.7); Neutrophil % 86.6 % (47-70); POSITIVE DIFFERENTIAL YES; Platelet Count 192 K/mm3 (150-450); RBC Distribution Width CV 14.6 % (11.6-14.6); RBC Distribution Width SD 50.8 fl (35.1-43.9); Red Blood Count 3.36 M/mm3 (4.2-5.4); White Blood Count 8.2 K/mm3 (4.4-11.0)
[2022-11-28 06:53] LABS: Differential Indicated SCAN CRITERIA MET
[2022-11-28 07:11] LABS: Differential Comment SCANNED
[2022-11-28 07:15] LABS: Anion Gap 5 (5-15); BUN 12 mg/dL (7-18); BUN/Creat Ratio 20.6 RATIO (10-20); Calcium,Total 7.9 mg/dL (8.5-10.1); Chloride 108 mmol/L (98-107); Creatinine, Serum 0.58 mg/dL (0.55-1.02); EST Glomerular Filtration Rate 105 mL/min (>60); Est Glom Filt Rate - Afr Amer 127 mL/min (>60); Glucose 115 mg/dL (74-106); Potassium 3.6 mmol/L (3.5-5.1); Sodium Level 139 mmol/L (136-145)
[2022-11-28 07:51] LABS: Erythrocyte Sedimentation Rate 29 mm/hr (0-30)
--- NOTE | 2022-11-28 08:36 | PN.HOSP_ITS ---
Reason for Visit Reason for Visit: Back pain Subjective Subjective Patient is an 82-year-old white female who has a history of rheumatoid arthritis and is on immunosuppressive medication who presented to the emergency department at [facility] on 11/27/2022 for back pain and generalized malaise and not feeling well since Thursday. She evidently had trouble getting up out of bed and has had decreased p.o. intake with poor appetite. She woke up feeling worse on Thursday and reported increased urination but no dysuria or hematuria. She reported on Thursday she had felt a little bit better but did have some chills on the morning of admission. She got up and took a shower and felt worse following that. She did indicate she was thirsty and have a dry mouth. She had a fever of 101.4 as well as rhinorrhea that started on the morning of pres entation. She had 1 not episode of nausea and emesis on the day of presentation but no diarrhea. She reported her back pain was worse on the right. She was discharged home initially on a short course of Levaquin but came back to the emergency department later on the and her daughter reported she been having some confusion at home. Fever at the time of presentation at this visit was 100.7. Vital signs were otherwise stable at that time. CBC did show a significant left shift however her white count was not markedly elevated at 10.2. Left shift was 90.7%. Her sed rate was normal at 29. Her chemistry panel was overall unremarkable other than some mild hyperglycemia with a blood sugar 140. CRP was obtained and found to be 122. CT of the brain was performed and showed chronic involutional changes. Blood cultures and urine culture were obtained and pending at this time. Her SARS COVID-19 was positive. I suspect her fever is likely related to this however with her worsening back pain there was concern of discitis especially given the fact that she is immunosuppressed at baseline and MRI of her spine is pending. Objective Data Objective Data Vital Signs: Vital Signs Temp Pulse Resp BP Pulse Ox O2 Del Method 98.0 F 69 16 98/58 L 95 Room Air 11/28/22 03:09 11/28/22 03:09 11/28/22 03:09 11/28/22 03:09 11/28/22 03:09 11/28/22 04:00 Oxygen Delivery Method Room Air Weight: 50.6 kg Body Mass Index (BMI) 21.0 Intake & Output: Intake and Output for Last 24 Hours 11/26/22 11/27/22 11/28/22 23:59 23:59 23:59 Intake Total 893.33 / 893.33 Output Total 0 / 0 Balance 893.33 / 893.33 Lab / Micro Data 11/29/22 06:35 11/29/22 06:35 Labs: Laboratory Results - last 24 hr 11/27/22 22:29: Sodium 134 L, Potassium 3.8, Chloride 101, Carbon Dioxide 27.0, Anion Gap 6, BUN 14, Creatinine 0.80, Estim Creat Clear Calc 41.40, Est GFR (MDRD) Af Amer 88, Est GFR (MDRD) Non-Af 73, BUN/Creatinine Ratio 17.6, Glucose 140 H, Calcium 8.7 11/28/22 06:35: WBC 8.2, RBC 3.36 L, Hgb 9.9 L, Hct 32.1 L, MCV 95.5, MCH 29.5, MCHC 30.8 L, RDW Std Deviation 50.8 H, RDW Coeff of Eusebio 14.6, Plt Count 192, MPV 11.5, Immature Gran % (Auto) 0.900, Neut % (Auto) 86.6 H, Lymph % (Auto) 2.6 L, [place] % (Auto) 9.6, Eos % (Auto) 0.1, Baso % (Auto) 0.2, Absolute Neuts (auto) 7.1, Absolute Lymphs (auto) 0.21 L, Nucleated RBC % 0, Differential Comment SCANNED, ESR 29, Sodium 139, Potassium 3.6, Chloride 108 H, Carbon Dioxide 26.0, Anion Gap 5, BUN 12, Creatinine 0.58, Estim Creat Clear Calc 31.60, Est GFR (MDRD) Af Amer 127, Est GFR (MDRD) Non-Af 105, BUN/Creatinine Ratio 20.6 H, Glucose 115 H, Calcium 7.9 L, C-React Prot High Sens 122.00 H Micro: Microbiology 11/28/22 02:50 Nasal Secretion SARS-CoV-2 & FLU Antigen (Rapid) - Final SARS-CoV-2 (COVID 19) Radiography Diagnostic Testing: Radiology Impression Brain CT 11/27/22 22:23 IMPRESSION: Chronic involutional changes of the brain. Electronically Signed: Hever Patten MD at 23:15 EDT , Assessment & Plan Assessment/Plan (1) COVID-19 virus infection: (2) Back pain: PLAN: Plan COVID-19 infection -Suspect this is the etiology of her fever -Supportive care -Continue IV fluids at 100 cc/h for now and will reevaluate need once p.o. intake has been evaluated -No need for Decadron or remdesivir the patient is not hypoxic Back pain -With elevated CRP and fever MRI of spine is pending to rule out any discitis or epidural abscess however no neurological deficits noted -Suspect Alistair fever is from the above COVID-19 infection Recent right femoral neck fracture secondary to mechanical fall -September 2022 -Had right total hip arthroplasty performed -Seems to be progressing well Diarrhea -No significant stooling since admission therefore stool samples have not been able to be sent -At the very least we will make referral to GI at discharge Dysuria -UA is not consistent with infection Falls -We will likely require placement at discharge -PT/OT consulted History of osteoporosis -Continue alendronate -Continue vitamin D as ordered -Vitamin D level checked at last admission with fracture is within normal range RA -Continue methotrexate at discharge -Hold Xeljanz--> we will hold at least for a week and discuss further with orthopedic surgery prior to discharge -Continue prednisone as ordered -We will hold Ultram and utilize oxycodone for now GERD -Continue PPI DVT prophylaxis -Lovenox 40 mg daily CODE STATUS Full code
[2022-11-28] MEDS: Ascorbic Acid 500 MG Tablet PO (09:09)
[2022-11-28] MEDS: Folic Acid 1 MG Tablet PO (09:09)
[2022-11-28] MEDS: Pantoprazole Sodium 40 MG Tablet PO (09:09)
[2022-11-28] MEDS: Cholecalciferol (VIT D3) 25 MCG TABLET (1,000 UNITS) 50 MCG PO (09:09)
[2022-11-28] MEDS: Multivitamins,Therapeutic Tablet 1 TABLET PO ×3 (09:09→16:43)
[2022-11-28] MEDS: Menthol/Lanolin/Calamine/Znox 113 GM Tube 1 APPLIC TOPICAL ×2 (09:09→23:00)
[2022-11-28] MEDS: Enoxaparin 40 MG/0.4 ML Syringe SC (09:09)
[2022-11-28] MEDS: traMADol 50 MG Tablet PO ×2 (09:17→18:15)
--- NOTE | 2022-11-28 11:40 | CASEMGMT ---
JOSELO BENNETT Assessment: Face to Face with pt for initial transition planning/care coordination assessment. JOSELO BENNETT introduced self and role at [facility], pt voices understanding and consents to assessment. Pt is A/O x4 and answers all questions appropriately at this time. Pt sitting up in bed in no distress on RA. Care providers, pharmacy, and demographics verified/updated. Admitting Dx: possible discitis PCP:Milagros Aguirre CARBONATOR Specialists:HAYDEG, cardio; Basali, pain mgmt; Vellanki, rheum Preferred Pharmacy: [facility] Pres[facility] Benefit: yes LNOK: Cassy Yen, dtr; Nona Rich, dtr Living Arrangements: Pt lives with grandson in a single story home with no steps to enter but once in entrance there are 5 steps to go up with a rail. Pt reports she is I in ADL's and denies concerns at home. Pt states she does her own meals, laundry and grocery shopping. Transportation: Pt drives self and denies concerns with transportation. Pt states that her car is not running now and her dtr has been taking her to medical appts. DME/HHC/SNF: Pt states she is currently using a FWW at home as she is recovering from hip surgery but she typically does not use AD. Pt is active with [facility] PT. Pt would like to resume this upon dc. Pt denies need for a list of other options for agencies. Notified Richa at [facility] that pt would like to resume services. Pt denies SNF stays. Pt states no concerns with going home at time of dc. Pt states no further concerns/needs. CM to follow. Advised pt to ask CM if any further question/concerns/needs arise, voices understanding. Pt Goal: Home with [facility] PT resuming Plan: Home with [facility] PT resuming
[2022-11-28] MEDS: LORazepam 1 MG Tablet PO (13:40)
--- NOTE | 2022-11-28 15:15 | CASEMGMT ---
Discharge Planning Referral sent to [facility] via [facility]. Avani Edwards, Discharge Planning Asst.
[2022-11-28] MEDS: Acetaminophen 500 MG Tablet 1000 MG PO ×2 (16:42→23:00)
--- NOTE | 2022-11-28 17:16 | EKG12_ITS ---
Test Reason : TACHY Blood Pressure : / mmHG Vent. Rate : 107 BPM Atrial Rate : 170 BPM P-R Int : 000 ms QRS Dur : 076 ms QT Int : 300 ms P-R-T Axes : 000 -48 -36 degrees QTc Int : 400 ms Sinus tachycardia with AV dissociation Left axis deviation Low voltage QRS Abnormal ECG When compared with ECG of 27-NOV-2022 11:49, MANUAL COMPARISON REQUIRED, DATA IS UNCONFIRMED Confirmed by QAMAR VALERIO, MERI ([id number]), book or script editor MARIA TERESA JACOBS ([id number]) on 12/02/2022 7:26:26 AM Referred By: Tate Moreno Confirmed By:MERI FOOTE MD
--- NOTE | 2022-11-28 17:45 | EKG12_ITS ---
Test Reason : TACHY Blood Pressure : / mmHG Vent. Rate : 114 BPM Atrial Rate : 159 BPM P-R Int : 000 ms QRS Dur : 078 ms QT Int : 268 ms P-R-T Axes : 000 -51 -27 degrees QTc Int : 369 ms Sinus tachycardia with AV dissociation Left axis deviation Low voltage QRS Abnormal ECG When compared with ECG of 28-NOV-2022 17:16, MANUAL COMPARISON REQUIRED, DATA IS UNCONFIRMED Confirmed by QAMAR VALERIO, MERI ([id number]), design editor MARIA TERESA JACOBS ([id number]) on 12/02/2022 7:24:36 AM Referred By: Tate Moreno Confirmed By:MERI FOOTE MD
[2022-11-28] MEDS: Metoprolol Tartrate 25 MG Tablet PO (18:11)
[2022-11-28] MEDS: 0.9% Saline Lock 10 ML Syringe IV (23:00)
[2022-11-29 01:18] VITALS: PULSE 59; O2SAT 93
[2022-11-29 05:00] VITALS: BP 107/74; PULSE 65; RESP 18; TEMP 36.7; O2SAT 98
[2022-11-29] MEDS: Acetaminophen 500 MG Tablet 1000 MG PO (05:25)
[2022-11-29] MEDS: traMADol 50 MG Tablet PO (05:40)
[2022-11-29 06:52] LABS: Absolute Lymphocyte Count 0.43 X10^3/uL (0.83-4.51); Absolute Neutrophil Count 7.5 X10^3/uL (2.0-7.7); Basophil# 0.03 X10^3/uL; Basophil% 0.3 % (0-1); Eosinophil# 0.06 X10^3/uL; Eosinophils% 0.7 % (0-5); Hematocrit 31.6 % (37-47); Lymphocyte # 0.43 X10^3/ul (0.83-4.51); Mean Corp Hgb Conc 31.6 g/dL (32-36); Mean Corpuscular Hgb 29.9 pg (27.0-32.0); Mean Corpuscular Volume 94.3 fL (81-99); Mean Platelet Vol. 11.2 fl (6.2-12.0); Monocyte# 0.57 X10^3/uL; Monocyte% 6.6 % (0-10); NRBC Flagged by Analyzer 0 % (0-5); Neutrophil # 7.45 X10^3/uL (2.7-7.7); Neutrophil % 86.5 % (47-70); POSITIVE DIFFERENTIAL YES; Platelet Count 200 K/mm3 (150-450); RBC Distribution Width CV 14.8 % (11.6-14.6); RBC Distribution Width SD 51.1 fl (35.1-43.9); Red Blood Count 3.35 M/mm3 (4.2-5.4); White Blood Count 8.6 K/mm3 (4.4-11.0)
[2022-11-29 07:18] LABS: Anion Gap 4 (5-15); BUN 11 mg/dL (7-18); BUN/Creat Ratio 22.1 RATIO (10-20); Calcium,Total 8.5 mg/dL (8.5-10.1); Chloride 106 mmol/L (98-107); EST Glomerular Filtration Rate 126 mL/min (>60); Est Glom Filt Rate - Afr Amer 152 mL/min (>60); Glucose 97 mg/dL (74-106); Potassium 3.6 mmol/L (3.5-5.1); Sodium Level 136 mmol/L (136-145)
[2022-11-29 07:19] LABS: Differential Indicated SCAN CRITERIA MET
[2022-11-29 07:20] LABS: Differential Comment SCANNED
--- NOTE | 2022-11-29 09:48 | CASEMGMT ---
JOSELO BENNETT made tc to discuss GRIMES form with patient. JOSELO BENNETT explained GRIMES form, patient voiced understanding. Pt gave verbal consent that she understood, witnessed by second person. Pt provided with a copy of signed GRIMES form. Patient had no further questions or concerns at this time.
--- NOTE | 2022-11-29 09:52 | CASEMGMT ---
TC to [facility] [place], left message on intake's line to make aware pt is dc'ing today and to add APPLICATION MANAGER to referral for AL information per hospitalist.
[2022-11-29 10:21] VITALS: BP 100/75; PULSE 65; RESP 18; TEMP 36.3; O2SAT 96
[2022-11-29] MEDS: Enoxaparin 40 MG/0.4 ML Syringe SC (10:22)
[2022-11-29] MEDS: Pantoprazole Sodium 40 MG Tablet PO (10:22)
[2022-11-29 10:23] VITALS: PULSE 65
[2022-11-29] MEDS: Ascorbic Acid 500 MG Tablet PO (10:23)
[2022-11-29] MEDS: Multivitamins,Therapeutic Tablet 1 TABLET PO (10:23)
[2022-11-29] MEDS: Cholecalciferol (VIT D3) 25 MCG TABLET (1,000 UNITS) 50 MCG PO (10:23)
[2022-11-29] MEDS: Menthol/Lanolin/Calamine/Znox 113 GM Tube 1 APPLIC TOPICAL (10:23)
[2022-11-29] MEDS: Folic Acid 1 MG Tablet PO (10:23)
[2022-11-29] MEDS: Metoprolol Tartrate 25 MG Tablet PO (10:23)
[2022-11-29 11:03] VITALS: O2SAT 96
--- NOTE | 2022-11-29 11:19 | PCM.DC.SUM ---
Providers Date of Admission: 11/28/22 Date of Discharge: 11/29/22 Primary Care Physician: Milagros Aguirre, KULDIPC Reason For Visit: POSSIBLE DISCITIS Diagnosis Discharge Diagnosis (1) COVID-19 virus infection: Status: Acute Code(s): U07.1 - COVID-19 (2) Back pain: Status: Acute Code(s): M54.9 - Dorsalgia, unspecified Medications at Discharge Home Medications methotrexate sodium (PF) 25 mg/mL injection solution 75 mg IM TH Check with primary doctor 11/29/13 prednisone 5 mg tablet 5 mg PO DAILY Check with primary doctor 11/29/13 alendronate 70 mg tablet (Fosamax) 70 mg PO QWEEK Check with primary doctor 11/10/18 folic acid 400 mcg tablet 0.8 mg PO DAILY@0800 Supplement 11/10/18 celecoxib 200 mg capsule 200 mg PO DAILY PRN Pain 12/12/20 multivitamin 3 tab PO DAILY Supplement 06/25/21 tofacitinib 5 mg tablet (Xeljanz) 5 mg PO BID Check with primary doctor 06/25/21 ascorbic acid (vitamin C) 500 mg capsule 500 mg PO DAILY Supplement 05/27/22 cholecalciferol (vitamin D3) 50 mcg (2,000 unit) capsule 50 mcg PO DAILY Supplement 05/27/22 acetaminophen 500 mg tablet 1,000 mg PO Q8 Pain 10/02/22 calcium carbonate 200 mg calcium (500 mg) chewable tablet 500 mg PO TIDCM Check with primary doctor 10/02/22 lansoprazole 30 mg capsule,delayed release (Prevacid) 30 mg PO DAILY Check with primary doctor 10/02/22 tramadol 50 mg tablet 50 mg PO Q8H PRN pain #3 tabs 10/02/22 buprenorphine 5 mcg/hour weekly transdermal patch (Butrans) 1 ea transdermal QWEEK #0 ea 10/13/22 Hospital Course Operations None Procedures - (MRI cervical/thoracic/lumbar spine/CT brain) Summary of Care Provided Minutes Spent on Discharge: 37 Hospital Course: Mrs. Lakhani is an 82-year-old white female who has a history of rheumatoid arthritis and is on immunosuppressive medication who presented to the emergency department at [facility] on 11/27/2022 for back pain, generalized malaise, and not feeling well since Thursday. She evidently had trouble getting up out of bed and has had decreased p.o. intake with poor appetite. She woke up feeling worse on Thursday and reported increased urination but no dysuria or hematuria. She reported on Thursday she had felt a little bit better but did have some chills on the morning of admission which was . She got up and took a shower and felt worse following that. She did indicate she was thirsty and have a dry mouth. She had a fever of 101.4 as well as rhinorrhea that started on the morning of presentation. She had one episode of nausea and emesis on the day of presentation but no diarrhea. She reported her back pain was worse on the right. She was discharged home initially on a short course of Levaquin for the concern of UTI but came back to the emergency department later on the and her daughter reported she been having some confusion at home. Fever at the time of presentation at this visit was 100.7. Vital signs were otherwise stable at that time. CBC did show a significant left shift however her white count was not markedly elevated at 10.2. Left shift was 90.7%. Her sed rate was normal at 29. Her chemistry panel was overall unremarkable other than some mild hyperglycemia with a blood sugar 140. CRP was obtained and found to be 122. CT of the brain was performed and showed chronic involutional changes. Blood cultures and urine culture were obtained and pending at this time. Her SARS COVID-19 was found to be positive. There was concern about osteomyelitis or discitis as her back pain had worsened and an MRI of her cervical/thoracic/lumbar spine was performed. Patient has significant arthritis but no signs of any infectious process. Her urine culture was unremarkable and antibiotics were discontinued. Blood cultures remain pending at discharge however I have low anticipation that these are going to be positive as I suspect her fevers are related to her COVID-19 infection. She was seen by therapy and had some debility greater than baseline but not significantly impaired and home health was thought to be a reasonable option for her. She had been receiving home health for therapy services. Her oral intake improved dramatically within 24 hours of being admitted. We monitored her through 11/29/2022 and she was feeling much better overall. She was not quite back to her baseline however she indicated she wanted to go home and was feeling significantly improved. We have advised her to hold her oral immunosuppression Xeljanz until 10 days post symptoms which should be on Thursday. She is not due through her methotrexate until so she should be able to continue this without any issue and she is okay to continue her prednisone. I discussed the discharge plan with her daughter Stephanie prior to discharge and she voiced understanding. The patient was able to be discharged home in stable condition with home health care on 11/29/2022. Discharge diagnoses: Acute COVID-19 infection Fever-resolved Back pain Recent right femoral neck fracture status post mechanical fall Diarrhea Falls Osteoporosis Rheumatoid arthritis History of paroxysmal supraventricular tachycardia GERD Physical Exam Const alert, oriented x3, no apparent distress and average body habitus Constitutional Narrative: Elderly white female, sitting up in a chair at the bedside reclined reading a book, appears comfortable and nontoxic General Appearance: cooperative, comfortable, well kempt and well developed Orientation / Consciousness: awake, oriented to person, oriented to place and oriented to time Exam Limitations: no limitations Nutritional Appearance: thin HEENT normocephalic, head/scalp atraumatic and moist oral mucous membranes HEENT Narrative: Mild hearing loss, Mallampati is 2, no thrush Eyes PERRL, EOMs intact bilaterally and conjunctivae normal Eyes Narrative: No scleral icterus Neck no lymphadenopathy and supple Neck Narrative: Trachea No thyroid enlargement Resp normal respiratory effort, no retractions, no use of accessory muscles and clear to auscultation bilaterally Auscultation: Negative for rales, rhonchi or wheezes Cardio regular rate, regular rhythm, S1 normal heart sound, S2 normal heart sound, no murmurs, no rub, no gallops and no clicks Cardio Narrative: Few intermittent ectopic GI normal to inspection, nondistended, normoactive bowel sounds, soft to palpation and non-tender Extremity no clubbing, cyanosis or edema Extremity Narrative: Pedal pulses are 2+ Skin no wounds, skin turgor normal and no jaundice Skin Narrative: Skin is thin with few scattered ecchymosis Neuro oriented x3, CN's II-XII intact bilaterally, moves all extremities, no focal motor deficits and no sensory deficits noted Neuro Narrative: Mild to moderate generalized weakness-proximal greater than distal Speech: speech normal Psych affect normal Psych Narrative: Very pleasant, appropriately interactive Weight / BMI Weight Weight: 50.6 kg Body Mass Index (BMI) 21.0 ABG / Lab / Microbiology Data 11/29/22 06:35 11/29/22 06:35 Laboratory: Laboratory Results - last 24 hr 11/29/22 06:35: WBC 8.6, RBC 3.35 L, Hgb 10.0 L, Hct 31.6 L, MCV 94.3, MCH 29.9, MCHC 31.6 L, RDW Std Deviation 51.1 H, RDW Coeff of Eusebio 14.8 H, Plt Count 200, MPV 11.2, Immature Gran % (Auto) 0.900, Neut % (Auto) 86.5 H, Lymph % (Auto) 5.0 L, [place] % (Auto) 6.6, Eos % (Auto) 0.7, Baso % (Auto) 0.3, Absolute Neuts (auto) 7.5, Absolute Lymphs (auto) 0.43 L, Nucleated RBC % 0, Differential Comment SCANNED, Sodium 136, Potassium 3.6, Chloride 106, Carbon Dioxide 26.0, Anion Gap 4 L, BUN 11, Creatinine 0.50 L, Estim Creat Clear Calc 31.60, Est GFR (MDRD) Af Amer 152, Est GFR (MDRD) Non-Af 126, BUN/Creatinine Ratio 22.1 H, Glucose 97, Calcium 8.5 Microbiology: Microbiology 11/28/22 02:50 Nasal Secretion SARS-CoV-2 & FLU Antigen (Rapid) - Final SARS-CoV-2 (COVID 19) Radiography Diagnostic Testing: Radiology Impression Cervical Spine MRI 11/28/22 02:06 IMPRESSION: Spondylosis and mild multilevel spinal stenosis secondary to disc disease and bony hypertrophy. No evidence for cord compression or focal cord pathology. No enhancing lesions to suggest osteomyelitis and discitis. Electronically Signed: Erik Ruiz MD at 17:10 EDT , Lumbar Spine MRI 11/28/22 02:06 IMPRESSION: Severe scoliosis and degenerative changes. Multilevel spinal stenosis secondary to disc disease and facet arthropathy. No evidence for acute osteomyelitis or discitis Electronically Signed: Erik Ruiz MD at 17:27 EDT , Thoracic Spine MRI 11/28/22 02:06 IMPRESSION: No evidence for acute fracture or other significant bony pathology. . Old compression fractures of T7 and T8 status post kyphoplasty. Spondylosis and mild multilevel spinal stenosis without cord compression. No evidence for acute osteomyelitis or discitis Electronically Signed: Erik Ruiz MD at 17:16 EDT Reading Location ID and State: [facility] / [place] , Service support , D/C Instructions Discharge Diet: No restrictions Discharge Activity: Return to Normal Activity Meaningful Use Info Meaningful Use Diagnoses (Choose all that apply): None applicable Discharge Plan Admission Admit Date/Time: 11/28/22 01:08 Primary Reason for Your Visit: Fever/confusion Attending Provider: Josephine Watson Primary Care Provider: Milagros Aguirre NP Consulting Providers: Tate Moreno Instructions Additional Instructions / Restrictions: 1. Please wear a mask when around people through 12/03/2022 to avoid COVID-19 transmission Discharge Orders/Prescriptions Prescriptions: Continued alendronate [Fosamax] 70 mg tablet 70 mg PO QWEEK ascorbic acid (vitamin C) 500 mg capsule 500 mg PO DAILY cholecalciferol (vitamin D3) 50 mcg (2,000 unit) capsule 50 mcg PO DAILY prednisone 5 MG tablet 5 mg PO DAILY methotrexate sodium (PF) 25 MG/ML solution 75 mg IM TH Hold Instructions: Resume on 10/15/21. Patient Comments: HOLD WEEK OF SURGERY-PER DR. HOLDEN folic acid 400 mcg tablet 0.8 mg PO DAILY@0800 celecoxib 200 mg capsule 200 mg PO DAILY PRN (Reason: Pain) Hold Instructions: MD Ordered multivitamin Tablet 3 tab PO DAILY tramadol 50 mg tablet 50 mg PO Q8H PRN (Reason: pain) Qty: 3 0RF acetaminophen 500 mg tablet 1,000 mg PO Q8 lansoprazole [Prevacid] 30 mg capsule,delayed release(DR/EC) 30 mg PO DAILY calcium carbonate 200 mg calcium (500 mg) tablet,chewable 500 mg PO TIDCM Hold Instructions: MD Ordered buprenorphine [Butrans] 5 mcg/hour Patch Weekly 1 ea transdermal QWEEK Qty: 0 0RF Held Xeljanz 5 mg tablet 5 mg PO BID Hold Instructions: Resume on 12/03/22. Discontinued levofloxacin [levofloxacin] 500 mg tablet 500 mg PO DAILY Qty: 2 0RF Rx Instructions: Take first dose tomorrow November 28 Referrals / Follow Up: Milagros Aguirre NP, [facility] [Primary Care Provider] - Within 2 Weeks Disposition Disposition (needs filled in before D/C Order can be placed): Home Health Service Charges/Coding Visit Charges Inpatient E&M: 88080 Disch Hosp >30min
[2022-11-29 13:00] VITALS: BP 107/75; PULSE 57; RESP 18; O2SAT 94
[2022-11-29] MEDS: Acetaminophen 325 MG Tablet 650 MG PO (13:20)
== END 2022-11-29 13:25 | disposition home health service (06) ==
LOC: ED 11-28 00:24 → MS3 11-28 02:37
PROVIDERS: Admitting Provider Hospitalist; Emergency Provider Emergency Medicine; PCP Registered Nurse; Referring Provider Hospitalist; Visit Provider Internal Medicine
DX: U07.1 COVID-19 (principal); D84.9 Immunodeficiency, unspecified; M06.9 Rheumatoid arthritis, unspecified; I48.0 Paroxysmal atrial fibrillation; S72.001D Fracture of unspecified part of neck of right femur, subsequent encounter for closed fracture with routine healing; K21.9 Gastro-esophageal reflux disease without esophagitis; Z79.52 Long term (current) use of systemic steroids; E86.0 Dehydration; R73.9 Hyperglycemia, unspecified; Z79.83 Long term (current) use of bisphosphonates; M41.9 Scoliosis, unspecified; Z79.899 Other long term (current) drug therapy; W19.XXXD Unspecified fall, subsequent encounter
CPT/HCPCS: 36415; 70450; 72156; 72157; 72158; 80048; 85025; 85652; 86141; 87428; 93005; 96361; 96372; 96374; 97162; 97165; 99221; 99284; A9575; J7030; A4216; G0378; J2405

== ENCOUNTER 2023-06-30 09:34 | Emergency (ER) | payer MEDICARE, MEDICAID, SELFPAY ==
[2023-06-30 09:35] VITALS: BP 123/75; PULSE 94; RESP 14; TEMP 36.2; O2SAT 97
[2023-06-30 09:37] VITALS: BMI 21.4
--- NOTE | 2023-06-30 09:46 | ED.VIS.LOWEX ---
HPI History of Present Illness HPI Narrative: 82-year-old female fell last September had a right hip replacement done by Dr. Preston of orthopedics. She has been doing well. She is in the last 2 weeks she has had atraumatic right hip pain. Worse with walking. No fever. No redness or swelling. Chief Complaint: Lower Extremity Injury Informant: patient Occured/Mechanism Mechanism/Context: No injury and No blunt trauma Onset/Context/Timing Onset: Weeks Context: Gradual Onset Timing: Continuous Quality of Pain: Dull and Aching Current Severity: Mild Maximum Severity: Mild Associated Symptoms Associated Symptoms: Negative for Parasthesia, Weakness or Loss of Funtion Narrative Narrative: 82-year-old with prior right hip replacement May almost a year ago. Complaining of right hip pain for the last 2 weeks. No fall injury or trauma. No fever or redness or swelling. Prior similar symptoms: No Recent Illness/Hospitalization: No PFSH PFSH Medical History Arthritis Back pain Back pain Cardiology follow-up encounter Closed head injury Easy bruising Fracture of hip, right, closed Gastric reflux History of hiatal hernia History of irregular heartbeat History of pain when walking History of steroid therapy Injury of back Irregular heart beat Kidney stones MVP (mitral valve prolapse) Normal stress echocardiogram Post-menopausal Premature atrial contraction Premature ventricular contraction Rheumatoid arthritis Sleep apnea Supraventricular tachycardia Wears contact lenses Wears glasses Zenkers diverticulum Home Medications methotrexate sodium (PF) 25 mg/mL injection solution 75 mg IM TH Check with primary doctor 11/29/13 [History Last Taken 11/20/22] prednisone 5 mg tablet 5 mg PO DAILY Check with primary doctor 11/29/13 [History Last Taken 11/25/22] alendronate 70 mg tablet (Fosamax) 70 mg PO QWEEK Check with primary doctor 11/10/18 [History Last Taken 11/26/22] folic acid 400 mcg tablet 0.8 mg PO DAILY@0800 Supplement 11/10/18 [History Last Taken Unknown] multivitamin 3 tab PO DAILY Supplement 06/25/21 [History Last Taken 11/24/22] tofacitinib 5 mg tablet (Xeljanz) 5 mg PO BID Check with primary doctor 06/25/21 [History Last Taken 11/27/22] ascorbic acid (vitamin C) 500 mg capsule 500 mg PO DAILY Supplement 05/27/22 [History Last Taken 11/24/22] acetaminophen 500 mg tablet 1,000 mg PO Q8 Pain 10/02/22 [History Last Taken 11/27/22] lansoprazole 30 mg capsule,delayed release (Prevacid) 30 mg PO DAILY Check with primary doctor 10/02/22 [History Last Taken 11/27/22] tramadol 50 mg tablet 50 mg PO Q8H PRN pain #3 tabs 10/02/22 [Rx Last Taken 11/27/22] buprenorphine HCl 75 mcg buccal film (Belbuca) 75 mcg buccal Q12H 03/17/23 [History Last Taken Unknown] cholecalciferol (vitamin D3) 50 mcg (2,000 unit) capsule 125 mcg PO DAILY Supplement 03/17/23 [History Last Taken Unknown] zinc sulfate 66 mg tablet (Zinc-15) 66 mg PO DAILY 03/17/23 [History Last Taken Unknown] Allergy/AdvReac Type Severity Reaction Status Date / Time amoxicillin trihydrate Allergy Intermediate Rash Verified 06/30/23 09:34 [From Trimox] Penicillins Allergy Swelling Verified 06/30/23 09:34 Family History Father CAD (coronary artery disease) CVA (cerebral vascular accident) Hypertension Heart disease Brother CAD (coronary artery disease) Mother Osteoporosis Surgical History H/O total knee replacement History of cardiac radiofrequency ablation (~2000) History of incisional hernia repair History of removal of ovarian cyst History of right hip hemiarthroplasty Hx of cataract surgery Hx of hernia repair Hx of kyphoplasty Social History household members: none Smoking Status: Never smoker alcohol intake: never substance use type: does not use what type of physical activity do you participate in: none ROS ROS ED ROS Narrative Denies recent illness. Review of Systems ROS Unobtainable: Denies due to encephalopathy Constitutional Constitutional ED: Denies chills or fever(s) Eyes Eyes: Denies blurry vision ENT ENT ED: Denies ear pain Cardiovascular Cardiovascular: Denies chest pain Respiratory/Chest Respiratory/Chest: Denies cough or dyspnea Gastrointestinal Gastrointestinal: Denies abdominal pain Genitourinary Genitourinary ED: Denies dysuria or hematuria Musculoskeletal Musculoskeletal: Denies arthralgias Integumentary Denies abscess Neurologic Neurologic: Denies headache(s) Psychiatric Psychiatric: Denies anxiety or depression Endocrine Endocrinology: Denies polydipsia, polyphagia or polyuria Hematologic/Lymphatic Hematologic/Lymphatic: Denies easy bleeding or easy bruising Allergic/Immunologic Allergic/Immunologic ED: Denies mouth swelling, tongue swelling or urticaria EXAM Physical Exam Narrative Exam Narrative: Well-appearing 82-year-old female. Vital signs are stable afebrile. No acute distress. H EENT exam unremarkable. Neck nontender. Lungs clear to auscultation. Heart regular rhythm rate about 90 no murmur. Chest wall and ribs nontender. Abdomen soft nontender. Back nontender. Moving all 4 extremities. The right hip has mild tenderness. There is no redness, warmth or swelling. There is no bruising or signs of trauma. There is no gross bony deformity or any signs of obvious dislocation. She is able to flex and extend the right hip with mild discomfort. She has bilateral knee replacements she is able to flex and extend both knees and able to dorsi plantarflex. Both right and left lower extremities neurovascularly intact without edema. Neurologically she is awake and alert with no focal motor deficits. Const Vital Signs: 06/30/23 09:35 Temperature 97.2 F L Temperature Source Temporal Pulse Rate 94 Respiratory Rate 14 Blood Pressure 123/75 H Blood Pressure Mean 91 Pulse Ox 97 Oxygen Delivery Method Room Air Positive well nourished and well developed; Negative for obese, cachectic, contractures or unkempt General Appearance ED: well developed and NAD; Negative for unkempt, cachectic or contractures Nutritional Appearance: Negative for cachectic or obese HEENT Reports moist mucous membranes normocephalic and atraumatic; Negative for trauma or tenderness Eyes PERRL General Eye ED: Negative for other Neck full ROM and supple Thyroid: Negative for tender or other Lymph Lymphatic: Negative for other Chest Wall inspection of chest normal and palpation of chest normal Chest: Negative for other Resp normal respiratory effort, no retractions and clear to auscultation bilaterally Effort and Inspection: Negative for pain with movement Auscultation: Negative for rales, rhonchi or wheezes Cardio regular rate, regular rhythm, S1 normal heart sound, S2 normal heart sound and no murmurs Rate: Negative for bradycardia or tachycardic Rhythm: Negative for abnormal rhythm Bruits: Negative for other GI non-tender, non-distended and no masses Inspection: Negative for abdominal distention Auscultation: normoactive bowel sounds Palpation: Negative for guarding Bladder / Kidney Exam: No other Back/Spine no CVA tenderness General Back: Negative for CVA tenderness Cervical Spine: Negative for cervical spine tenderness Thoracic Spine / Upper Back: Negative for thoracic spinal tenderness Lumbar Spine / Lower Back: Negative for lumbar spinal tenderness Extremity normal to inspection and full ROM Extremity Narrative: Mild tenderness right hip. No gross bony deformity. No redness or warmth. No swelling. Able to do flexion extension of the right hip with some discomfort. No shortening or rotation. General Extremety ED: Negative for cyanosis or edema General Extremity: Negative for cyanosis or edema Neuro CN's II-XII intact bilaterally and moves all extremities Sensorium / Orientation: alert, oriented to person, oriented to place and oriented to time; Negative for orientation impaired, confused, lethargic or stuporous Motor Exam: strength 5/5 throughout Psych mental status grossly normal Appearance: Negative for unkempt Speech: No other Mood & Affect: Negative for anxious Skin no wounds Lesions: no lesions Rashes: no rashes Trauma: Negative for abrasion, laceration or puncture MDM MDM MDM Narrative Medical decision making narrative: 82-year-old female prior right hip replacement after a fall and fracture last September. Complaining of pain for the last 2 weeks worse with ambulation. Exam other than tender there is no signs of infection or trauma. X-ray of the pelvis and right hip being obtained. Repeat exam patient doing well. We went over x-ray results. I reexamined her hip no change. Again no redness, warmth, swelling or bruising. Normal range of motion. Patient be discharged home. She is on chronic pain medication she sees pain management. She will call make an appointment with Dr. Mohan grissom reevaluation of her hip and the prosthesis. History & Record Review Discussion w/independent historian: Patient Additional record(s) reviewed:: Prior inpatient record, Prior outpatient record, Prior ED visit and Prior labs Radiography Diagnostic Testing: Right hip x-ray and pelvis 3 views interpreted by myself shows no acute abnormality. No fracture or dislocation. Prosthesis appears to be in good shape. I went over the x-rays with the patient and family. Discharge Plan Triage Chief Complaint: Lower Extremity Injury ED Provider: Cyril Burden Dx/Rx/DC Orders Clinical Impression: Acute pain of right hip, History of hip fracture Instructions: ED Pain, Acute, Uncertain Cause Prescriptions: No Action alendronate [Fosamax] 70 mg tablet 70 mg PO QWEEK ascorbic acid (vitamin C) 500 mg capsule 500 mg PO DAILY cholecalciferol (vitamin D3) 50 mcg (2,000 unit) capsule 125 mcg PO DAILY Zinc-15 66 mg tablet 66 mg PO DAILY buprenorphine HCl [Belbuca] 75 mcg film 75 mcg buccal Q12H prednisone 5 MG tablet 5 mg PO DAILY methotrexate sodium (PF) 25 MG/ML solution 75 mg IM TH Hold Instructions: Resume on 10/15/21. Patient Comments: HOLD WEEK OF SURGERY-PER DR. HOLDEN folic acid 400 mcg tablet 0.8 mg PO DAILY@0800 multivitamin Tablet 3 tab PO DAILY Xeljanz 5 mg tablet 5 mg PO BID Hold Instructions: Resume on 12/03/22. tramadol 50 mg tablet 50 mg PO Q8H PRN (Reason: pain) Qty: 3 0RF acetaminophen 500 mg tablet 1,000 mg PO Q8 lansoprazole [Prevacid] 30 mg capsule,delayed release(DR/EC) 30 mg PO DAILY Primary Care Provider: Milagros Aguirre NP Referrals: Constantine Preston DO [Med Staff - Active Staff] - As soon as possible Milagros Aguirre NP, [facility] [Primary Care Provider] - Activity Restrictions/Additional Instructions: Ice to your hip. Your hip exam looks good. The hip prosthesis looks good. There is no fracture seen or dislocation. Usual pain medications at home. Call and follow-up with Dr. Preston for further evaluation. Disposition Disposition: Home, Self Care
--- NOTE | 2023-06-30 09:50 | RAD_ITS ---
STUDY: X-RAY - PELVIS AND RIGHT HIP REASON FOR EXAM: Female, 82 years old. Atraumatic right hip pain. History of prosthesis. TECHNIQUE: 3 views of the pelvis and hip. COMPARISON: Comparison is made with prior study dated October 15, 2022. FINDINGS: Moderate amount of fecal material is seen in the colon. Calcified fibroid uterus. There are atherosclerotic vascular calcifications. Normal bilateral iliac wings, sacroiliac joints and visualized sacrum. Healed fractures along the medial aspect of the right superior and inferior pubic rami. There is narrowing with sclerosis of the pubic symphysis. Normal bilateral ischial tuberosities. The patient is status post right total hip replacement. RAD/HIP, UNI W/ Pelvis 2-3 Views IMPRESSION: Status post right total hip replacement. No acute abnormality is seen. Electronically Signed: Tanner Clemens MD at 10:48 EST ,
[2023-06-30 10:32] VITALS: BP 149/91; PULSE 81; RESP 16; TEMP 36.4; O2SAT 98
== END 2023-06-30 10:35 | disposition home or self-care (01) ==
LOC: ED 10:23
PROVIDERS: Emergency Provider Emergency Medicine; PCP Registered Nurse; Visit Provider Emergency Medicine
DX: M25.551 Pain in right hip (principal); G89.29 Other chronic pain; Z96.641 Presence of right artificial hip joint; Z87.81 Personal history of (healed) traumatic fracture
CPT/HCPCS: 73502; 99282

== ENCOUNTER → 2023-09-08 | Outpatient (CLI) | payer MEDICARE, MEDICAID, SELFPAY ==
[2023-09-08 14:27] LABS: BUP Internal Control LINE = VALID (VALID); Buprenorphine Drug Screen Negative (<10 ng/mL)
[2023-09-08 14:32] LABS: Amphetamine Urine VISTA NEGATIVE (<1000 ng/mL); Barbiturate Urine VISTA NEGATIVE (< 200 ng/mL); Benzodiazepine Urine VISTA NEGATIVE (< 200 ng/mL); Cocaine Urine VISTA NEGATIVE (< 300 ng/mL); Ecstacy Urine VISTA NEGATIVE (< 500 ng/mL); Methadone Urine VISTA NEGATIVE (< 300 ng/mL); PCP Urine VISTA NEGATIVE (< 25 ng/mL); THC Urine VISTA NEGATIVE (< 50 ng/mL); Vista UDS pH Range 5
== END | disposition home or self-care (01) ==
PROVIDERS: PCP Registered Nurse; Referring Provider Anesthesiology Pain Medicine; Visit Provider Anesthesiology Pain Medicine
DX: F11.20 Opioid dependence, uncomplicated (principal)
CPT/HCPCS: 80307

== ENCOUNTER → 2023-09-18 | Outpatient (CLI) | payer MEDICARE, MEDICAID, SELFPAY ==
--- NOTE | 2023-09-18 07:45 | MRI_ITS ---
STUDY: MRI LUMBAR SPINE WITHOUT CONTRAST REASON FOR EXAM: Female, 83 years old. SPINAL STENOSIS TECHNIQUE: Standardized fat and water weighted pulse sequences were obtained in the sagittal and axial planes. COMPARISON: None FINDINGS: Normal lumbar lordosis. Severe levoscoliosis is present. No visualized acute fracture or compression deformity. Normal conus medullaris that terminates at the T12-L1 level. Sacral Tarlov cyst noted which is of no clinical significance. T12-L1: Moderate to severe disc space narrowing with a diffuse disc osteophyte complex. Retrolisthesis of T12 on L1 of 2 to 3 mm. Mild to moderate bilateral foraminal stenosis. Moderate facet joint hypertrophy. Normal central canal and bilateral lateral recesses. L1-2: Severe disc space narrowing with a diffuse disc osteophyte complex. Retrolisthesis of L1 on L2 of no more than 2 mm. Moderate right facet joint hypertrophy. Right lateral recess stenosis with nerve root compression. Moderate to severe right foraminal stenosis with nerve root compression. Normal left neural foramen and left lateral recess. Normal central canal. L2-3: Mild to moderate asymmetric disc space narrowing with diffuse disc bulge/disc spur complex. Mild facet joint hypertrophy. Normal central canal and bilateral lateral recesses. Normal bilateral intervertebral neural foramina. L3-4: Mild to moderate disc space narrowing with posterior annular bulging. Mild endplate spurring. Mild central canal stenosis and bilateral lateral recess stenosis. Moderate facet joint hypertrophy. Moderate bilateral foraminal stenosis with nerve root compression. L4-5: Left paracentral inferiorly extruded disc material which is a cluster and measures 4.4 mm in diameter see image 8/17 series 7 Diffuse disc desiccation with mild to moderate asymmetric disc space narrowing and posterior annular bulging. Mild Modic endplate degenerative signal and Schmorl''s node changes moderate facet joint hypertrophy. Left lateral recess stenosis with nerve root compression. Mild central canal stenosis. Severe left foraminal stenosis with nerve root compression. Normal right neural foramen. Anterolisthesis of L4 and L5 of 3 to 4 mm. L5-S1: Normal endplates. Diffuse disc desiccation with mild posterior asymmetric disc space narrowing and annular bulging. Moderate facet joint hypertrophy and degeneration. Normal central canal and bilateral lateral recesses. Normal bilateral intervertebral neural foramina. Normal visualized sacral ala. There is mild paraspinal muscular atrophy. MRI/Spine Lumbar (Routine) IMPRESSION: Multilevel degenerative changes, as described above. Electronically Signed: Eric Beasley MD at 14:37 EDT ,
--- NOTE | 2023-09-18 07:51 | BI_ITS ---
MAMMOGRAPHY - BILATERAL SCREENING REASON FOR EXAM: Female, 83 years old. Routine annual screening examination. PERTINENT HISTORY: Grandmother with breast cancer. TECHNIQUE: Digital bilateral breast star (3D mammographic acquisition) in the CC and MLO projections. 2-D mediolateral oblique (MLO) and craniocaudad (CC) views of both breasts were obtained. CAD: Full Field Digital Mammography with Computer Added Detection was performed. COMPARISON: Comparison is made with prior study dated June 24, 2022 and April 24, 2021. FINDINGS: Breast Composition: The breasts are heterogeneously dense, which may obscure small masses. There are no dominant masses or suspicious calcifications. Stable bilateral secretory calcifications. No other significant abnormalities are identified. There has been no significant change since the prior study. BI/SCRN MAMM (CAD)W/STAR BILAT IMPRESSION: Stable bilateral screening mammogram. Yearly follow-up mammogram recommended. (A) ASSESSMENT CATEGORY: BIRADS Category 2: Benign. A letter regarding these results will be sent to the patient by the facility within 30 days. Approximately 10% of breast cancers are not detected by mammography. A normal mammogram should not delay biopsy of a clinically suspicious abnormality. [id number] Electronically Signed: Tanner Clemens MD at 8:48 EDT ,
== END | disposition home or self-care (01) ==
PROVIDERS: PCP Registered Nurse; Referring Provider Orthopaedic Surgery; Visit Provider Orthopaedic Surgery
DX: Z12.31 Encounter for screening mammogram for malignant neoplasm of breast (principal); S32.040A Wedge compression fracture of fourth lumbar vertebra, initial encounter for closed fracture; S32.030A Wedge compression fracture of third lumbar vertebra, initial encounter for closed fracture; M48.061 Spinal stenosis, lumbar region without neurogenic claudication; X58.XXXA Exposure to other specified factors, initial encounter
CPT/HCPCS: 72148; 77063; 77067

== ENCOUNTER 2023-10-13 15:14 | Emergency (ER) | payer MEDICARE, MEDICAID, SELFPAY ==
[2023-10-13 15:16] VITALS: BP 156/86; PULSE 81; RESP 18; TEMP 36.9; O2SAT 97; BMI 21.4
--- NOTE | 2023-10-13 15:40 | VDLE_ITS ---
Reason For Study: Pain and swelling RIGHT LEFT GSV is normal. CFV is compressible, spontaneous, phasic, CFV is compressible, spontaneous, phasic, competent, and demonstrates normal competent and demonstrates normal augmentation. augmentation. FV is compressible, spontaneous, phasic, competent and demonstrates normal augmentation. POP V is compressible, spontaneous, phasic, competent and demonstrates normal augmentation. T/P Trunk is compressible. PTV is compressible. RT PerV is compressible. Procedure This is a venous duplex using B-mode, color flow and spectral Doppler. Exam performed in department. A preliminary report was called and/or faxed to Dr. Zimmerman. VL/Venous Duplex US, Unilateral Interpretation Summary Deep veins of the right lower extremity are patent and compressible segmentally . There is no evidence of right lower extremity deep vein thrombosis. The right great sapheno us vein appears patent and compressible segmentally. Ordering Physician: Roosevelt Zimmerman Referring Physician: Milagros Aguirre Performed By: Binta Levy RVT
--- NOTE | 2023-10-13 15:40 | CT_ITS ---
STUDY: CT BRAIN WITHOUT CONTRAST REASON FOR EXAM: Female, 83 years old. Trauma RADIATION DOSAGE (If Supplied By Facility): CTDIvol = ( 44.99 ) mGy, DLP = ( 796.11 ) mGycm TECHNIQUE: Transaxial CT imaging of the brain was performed without administration of intravenous contrast material. Individualized dose optimization techniques were used for this CT. COMPARISON: No relevant priors. FINDINGS: There is left periorbital soft tissue swelling. Fracture lines are noted involving the medial wall, lateral wall, and the floor of the left orbit. Fracture lines are noted of the left maxillary sinus inferior and lateral ventura. Normal size ventricles and extra-axial spaces for the patient''s age. Bilateral white matter microangiopathic ischemic changes of the cerebral hemispheres. Normal basal ganglia and thalami. Normal brainstem. Normal cerebellum. There is no intracranial hemorrhage. There are no findings of an acute ischemic infarction. Opacity of the left paranasal sinuses. CT/Brain/Head without Contrast IMPRESSION: No acute intracranial pathology of the brain. Left orbital and maxillary fractures. Electronically Signed: Riley Miller DO at 16:33 EDT Reading Location ID and State: [facility] / [place] Tel [phone], Service support ,
--- NOTE | 2023-10-13 15:43 | ED.VIS.FALL ---
HPI HPI - Fall History of Present Illness Chief Complaint: Fall Narrative Narrative: 83-year-old female presents via EMS status post fall in the parking lot. Her daughter is with her and states that they were coming out of the [employer] store. She stepped down off a curb. She fell forward onto her face, and left shoulder. She complains of headache on the left side, laceration to the left orthodox, no neck pain but has left shoulder pain. She is right-hand dominant. She has had bilateral total knee arthroplasties and complains of left knee pain as well. There was no loss of consciousness with the fall. She is unsure of her last tetanus immunization. [facility] Medical History Zenkers diverticulum Back pain Kidney stones Irregular heart beat Closed head injury Fracture of hip, right, closed Wears glasses Wears contact lenses Post-menopausal History of steroid therapy Arthritis Rheumatoid arthritis Easy bruising Injury of back Back pain History of hiatal hernia Gastric reflux Sleep apnea History of pain when walking Normal stress echocardiogram Cardiology follow-up encounter History of irregular heartbeat MVP (mitral valve prolapse) Premature ventricular contraction Premature atrial contraction Supraventricular tachycardia Home Medications ?Medication ?Instructions ?Recorded ?Last Taken ?Type methotrexate sodium (PF) 25 mg/mL 75 mg IM TH Check with primary 11/29/13 11/20/22 History injection solution doctor prednisone 5 mg tablet 5 mg PO DAILY Check with primary 11/29/13 11/25/22 History doctor alendronate 70 mg tablet (Fosamax) 70 mg PO QWEEK Check with primary 11/10/18 11/26/22 History doctor folic acid 400 mcg tablet 0.8 mg PO DAILY@0800 Supplement 11/10/18 Unknown History multivitamin 3 tab PO DAILY Supplement 06/25/21 11/24/22 History tofacitinib 5 mg tablet (Xeljanz) 5 mg PO BID Check with primary 06/25/21 11/27/22 History doctor ascorbic acid (vitamin C) 500 mg 500 mg PO DAILY Supplement 05/27/22 11/24/22 History capsule acetaminophen 500 mg tablet 1,000 mg PO Q8 Pain 10/02/22 11/27/22 History lansoprazole 30 mg capsule,delayed 30 mg PO DAILY Check with primary 10/02/22 11/27/22 History release (Prevacid) doctor tramadol 50 mg tablet 50 mg PO Q8H PRN pain #3 tabs 10/02/22 11/27/22 Rx buprenorphine HCl 75 mcg buccal 75 mcg buccal Q12H 03/17/23 Unknown History film (Belbuca) cholecalciferol (vitamin D3) 50 125 mcg PO DAILY Supplement 03/17/23 Unknown History mcg (2,000 unit) capsule zinc sulfate 66 mg tablet (Zinc-15) 66 mg PO DAILY 03/17/23 Unknown History hydrocodone-acetaminophen 5-325mg 1 tab PO Q6H PRN PRN Pain 3 days 10/13/23 Unknown Rx 5mg-325mg #12 TABLETS Allergy/AdvReac Type Severity Reaction Status Date / Time amoxicillin trihydrate (From Allergy Intermediate Rash Verified 06/30/23 09:34 Trimox) Penicillins Allergy Swelling Verified 06/30/23 09:34 Family History Father CAD (coronary artery disease) CVA (cerebral vascular accident) Hypertension Heart disease Brother CAD (coronary artery disease) Mother Osteoporosis Surgical History History of right hip hemiarthroplasty History of removal of ovarian cyst History of incisional hernia repair Hx of kyphoplasty History of cardiac radiofrequency ablation (~2000) Hx of cataract surgery Hx of hernia repair H/O total knee replacement Social History household members: none Smoking Status: Never smoker alcohol intake: never substance use type: does not use what type of physical activity do you participate in: none ROS ROS ED ROS Narrative Constitutional: No fever, no chills. HEENT: No sore throat. No neck pain. No loss of vision. No rhinorrhea. Laceration to left orthodox. Cardiovascular: No chest pain. No palpitations. Right pedal edema. Respiratory: No cough, no shortness of breath. Abdominal: No abdominal pain. No nausea. No vomiting. Genitourinary: No dysuria. No hematuria. Musculoskeletal: No myalgias. Left shoulder pain, left knee pain Neurologic: Positive left-sided headaches. No dizziness. No lightheadedness. Skin: No rash. No change in color. Psychiatric: No depression. No anxiety. EXAM Physical Exam Narrative Exam Narrative: Afebrile. Vital signs noted. GCS 15. ABCs intact. HEENT: Normocephalic. Positive tenderness to palpation left orthodox with 1.5 to 2 cm laceration running vertically. PERRL, EOMI. Neck soft and supple. No point tenderness or step off. Cardiovascular: Regular rate and rhythm. No murmurs, rubs, or gallops appreciated. Respiratory: No tachypnea. Lungs clear to auscultation bilaterally. Gastrointestinal: Abdomen soft, nontender, with normoactive bowel sounds. No rebound or guarding. Neurological: Awake. Alert. Nonfocal, nonlateralizing. Skin: No rash. Normal color. No pallor. Musculoskeletal: No pedal edema. Diffuse left shoulder pain and tenderness to palpation on proximal humerus. Neurovascular intact distally. With palpable radial pulse. Diffuse tenderness to palpation left knee. Flexion and extension mechanism intact. Palpable dorsalis pedis pulse. Mild swelling right foot. Const Vital Signs: 10/13/23 15:16 10/13/23 15:23 10/13/23 17:15 Temperature 98.4 F Temperature Source Oral Pulse Rate 81 71 Respiratory Rate 18 18 Respiratory Effort Normal Respiratory Depth Normal Respiratory Pattern Normal Blood Pressure 156/86 H 163/95 H Blood Pressure Mean 109 117 Pulse Ox 97 98 Oxygen Delivery Method Room Air Room Air MDM MDM MDM Narrative Medical decision making narrative: Patient will be given a tetanus immunization as she is unclear as to when her last one was. In the differential diagnosis is intracranial hemorrhage and skull fracture versus closed head injury. I will discuss closure of the laceration on the orthodox with the patient whether it be with sutures or skin adhesive. Lidocaine 1% was ordered for local anesthetic, and her wound will be cleansed. Regarding her left shoulder injury, she may have a contusion versus a proximal humerus fracture, and I doubt dislocation based on her physical examination. She may have more of a left knee contusion versus periprosthetic fracture. As I was exiting the room, her daughter requested that ultrasound be obtained of the right lower extremity because she relates history that they saw her nurse practitioner for right foot swelling, and they are unable to schedule an outpatient ultrasound until the , 2 weeks from now. Ultrasound will be obtained to rule out DVT. I reviewed the radiology report of the ultrasound and there is no evidence of DVT. X-rays of the left knee interpreted by myself independently shows no periprosthetic fracture. Reviewed the radiology report which confirms my independent interpretation. I also independently interpreted the left shoulder x-rays, and while there are degenerative changes no evidence of dislocation or fracture. I reviewed the radiology report which once again confirms my independent interpretation. I reviewed the radiology report of the CT of the brain. While there is no evidence of intracranial hemorrhage, she does have facial fractures. She has fractures of the left orbit and of the maxillary sinus. I was able to discuss the patient with plastic surgery at [facility], Dr. Calvin, who will follow-up with the patient as an outpatient a week from tomorrow. She had been given 1 [place] tablet here in the emergency department and a prescription written for 12 tablets to take for breakthrough pain. Procedure note: Laceration repair of 1.5 centimeter laceration left orthodox area by left eye. Patient was informed of the risk of infection and scarring and acknowledges an understanding. Lidocaine 1% was used as a local anesthetic. Area was irrigated and cleansed with Shur-Clens and normal saline. No evidence of foreign body. 3 simple interrupted sutures using 4 point 0 nylon were inserted without difficulty for good skin approximation. Patient tolerated procedure well. She is to have the sutures removed in 5 days. I feel she can be discharged to follow-up and that she does not require transfer for trauma evaluation. Disposition is discharged home in stable condition. Radiography Diagnostic Testing: Clinical Impression(s) from Imaging Studies Brain CT 10/13/23 15:40 IMPRESSION: No acute intracranial pathology of the brain. Left orbital and maxillary fractures. Electronically Signed: Riley Miller DO at 16:33 EDT Reading Location ID and State: [facility] / [place] Tel [phone], Service support , Venous Doppler Study 10/13/23 15:40 Interpretation Summary Deep veins of the right lower extremity are patent and compressible segmentally. There is no evidence of right lower extremity deep vein thrombosis. The right great saphenous vein appears patent and compressible segmentally. Ordering Physician: Roosevelt Zimmerman Referring Physician: Milagros Aguirre Performed By: Binta Levy T Knee X-Ray 10/13/23 16:20 IMPRESSION: Total knee placement. No acute bony injury. Electronically Signed: Riley Miller DO at 16:39 EDT , Shoulder X-Ray 10/13/23 16:20 IMPRESSION: Degenerative changes. Electronically Signed: Riley Miller DO at 16:42 EDT , Discharge Plan Triage Chief Complaint: Fall ED Provider: Roosevelt Zimmerman Dx/Rx/DC Orders Clinical Impression: Fall, Orbital fracture, Fracture of maxillary sinus, Facial laceration Instructions: ED Facial Fracture, ED Mechanical Fall, ED Head Injury (Adult), ED Laceration, All Closures Prescriptions: New hydrocodone-acetaminophen 5-325 mg tablet 1 tab PO Q6H PRN PRN (Reason: Pain) 3 Days Qty: 12 0RF No Action alendronate [Fosamax] 70 mg tablet 70 mg PO QWEEK ascorbic acid (vitamin C) 500 mg capsule 500 mg PO DAILY cholecalciferol (vitamin D3) 50 mcg (2,000 unit) capsule 125 mcg PO DAILY Zinc-15 66 mg tablet 66 mg PO DAILY buprenorphine HCl [Belbuca] 75 mcg film 75 mcg buccal Q12H prednisone 5 MG tablet 5 mg PO DAILY methotrexate sodium (PF) 25 MG/ML solution 75 mg IM TH Patient Comments: HOLD WEEK OF SURGERY-PER DR. HOLDEN folic acid 400 mcg tablet 0.8 mg PO DAILY@0800 multivitamin Tablet 3 tab PO DAILY Xeljanz 5 mg tablet 5 mg PO BID tramadol 50 mg tablet 50 mg PO Q8H PRN (Reason: pain) Qty: 3 0RF acetaminophen 500 mg tablet 1,000 mg PO Q8 lansoprazole [Prevacid] 30 mg capsule,delayed release(DR/EC) 30 mg PO DAILY Primary Care Provider: Milagros Aguirre NP Referrals: Milagros Aguirre NP, GE[employer] H[employer]BER OPERATOR-C [Primary Care Provider] - 5 Days for suture removal Activity Restrictions/Additional Instructions: Follow-up with Dr. Calvin with plastic surgery in one week from tomorrow. Call for an appointment. [phone] Have sutures removed by her primary care provider in 5 days. Print Language: Portuguese Disposition Disposition: Home, Self Care
[2023-10-13] MEDS: Lidocaine 1% (20 ml mdv) 20 ML Vial INFILT (15:55)
[2023-10-13] MEDS: Diphth,Pertuss(Acell),Tet Vac 0.5 ML Vial IM (15:56)
--- NOTE | 2023-10-13 16:20 | RAD_ITS ---
INDICATION: trauma EXAMINATION/TECHNIQUE: X-RAY - LEFT XR Shoulder Min 2 Views 2 VIEWS COMPARISON: FINDINGS: SOFT TISSUES: No soft tissue swelling or gas. No radiopaque foreign body. BONES/JOINTS: No acute fracture or subluxation.. Degenerative hypertrophy at the acromioclavicular articulation.. No sclerotic or destructive changes observed. RAD/Shoulder min 2 Views IMPRESSION: Degenerative changes. Electronically Signed: Riley Miller DO at 16:42 EDT ,
--- NOTE | 2023-10-13 16:20 | RAD_ITS ---
INDICATION: Trauma EXAMINATION/TECHNIQUE: X-RAY - LEFT XR Knee Complete 4 Views or More 4 VIEWS COMPARISON: FINDINGS: Status post total knee replacement. The hardware components are well aligned.. No acute bony injury. Vascular calcifications are present. RAD/Knee 4 or More Views IMPRESSION: Total knee placement. No acute bony injury. Electronically Signed: Riley Miller DO at 16:39 EDT ,
[2023-10-13 17:15] VITALS: BP 163/95; PULSE 71; RESP 18; O2SAT 98
[2023-10-13] MEDS: HYDROcodone Bitartrate/Apap 5/325 Tablet PO (17:35)
[2023-10-13 18:29] VITALS: BP 149/87; PULSE 86; RESP 18; TEMP 36.6; O2SAT 98
== END 2023-10-13 18:33 | disposition home or self-care (01) ==
PROVIDERS: Emergency Provider Emergency Medicine; PCP Registered Nurse; Visit Provider Emergency Medicine
DX: S01.81XA Laceration without foreign body of other part of head, initial encounter (principal); S02.832A Fracture of medial orbital wall, left side, initial encounter for closed fracture; S02.842A Fracture of lateral orbital wall, left side, initial encounter for closed fracture; S02.32XA Fracture of orbital floor, left side, initial encounter for closed fracture; S02.40DA Maxillary fracture, left side, initial encounter for closed fracture; M25.562 Pain in left knee; M19.012 Primary osteoarthritis, left shoulder; Z96.653 Presence of artificial knee joint, bilateral; W10.1XXA Fall (on)(from) sidewalk curb, initial encounter; Y92.481 Parking lot as the place of occurrence of the external cause; K21.9 Gastro-esophageal reflux disease without esophagitis; Z23 Encounter for immunization; M79.89 Other specified soft tissue disorders
CPT/HCPCS: 12011; 70450; 73030; 73564; 90471; 90715; 93971; 99283

== ENCOUNTER → 2023-11-03 | Outpatient (CLI) | payer MEDICARE, MEDICAID, SELFPAY ==
--- NOTE | 2023-11-03 11:25 | RAD_ITS ---
STUDY: X-RAY - FACIAL BONES REASON FOR STUDY: Female, 83 years old. Fall. Evaluate for facial fractures. TECHNIQUE: 3 view(s) of the facial bones. COMPARISON: None. FINDINGS: Osteopenia. Normal bilateral frontozygomatic and zygomatic-temporal arches. Normal bilateral medial and inferior orbital ventura. Normal bilateral orbits. Normal visualized nasal bones. Mild deviation of the nasal septum. Normal anterior nasal spine. The remaining visualized osseous structures are normal. Normal visualized paranasal sinuses. RAD/Facial Bones min 3 Views IMPRESSION: Osteopenia with mild deviation of the nasal septum. No acute abnormality. Electronically Signed: Girma Barajas MD at 11:46 EDT ,
== END | disposition home or self-care (01) ==
LOC: RAD 11:19
PROVIDERS: PCP Registered Nurse; Referring Provider Registered Nurse; Visit Provider Registered Nurse
DX: S02.92XA Unspecified fracture of facial bones, initial encounter for closed fracture (principal); X58.XXXA Exposure to other specified factors, initial encounter
CPT/HCPCS: 70150

== ENCOUNTER 2024-03-08 10:53 | Day surgery (SDC) | payer MEDICARE, SELFPAY ==
[2024-03-08] VITALS (8 sets, daily range): BP systolic 90–128; BP diastolic 56–74; PULSE 70–76; RESP 16; TEMP 36.3–37.7; O2SAT 97–100; BMI 22.4
--- NOTE | 2024-03-08 11:40 | PCM.PRE.AN2 ---
ASA Classification* ASA Classification ASA Classification: 3 Assessment & Plan Anesthesia* Anesthesia Assessment Anesthesia Assessment: Discussed sedation and/or anesthesia options, risks, benefits, and alternatives with patient/parents/legal guardian/POA. Questions invited. The patient/parents/legal guardian/POA seems to understand and agrees to proceed with anesthesia plan. Reviewed the physical assessment, medical history, allergy history and patient home medications list prior to surgery/procedure/anesthetic and documented any changes. Performed airway and anesthesia risk assessments. Anesthesia Type Anesthesia Type: MAC History Source History Obtained from:: Patient and Chart Anesthesia Focused Assessment* Temperature: 100 F Pulse Rate: 72 Blood Pressure: 128/74 Respiratory Rate: 16 Pulse Ox: 100 Oxygen Delivery Method: Room Air Airway Assessment Mouth opens: >3 cm Mallampati Score: III Teeth Condition: Chipped/Broken (Patient has several patient has several chipped teeth.) Neck Range of motion (ROM): Full ROM Focused Labs Anesthesia Preop lab: CBC WBC 8.6 K/mm3 (4.4-11.0) 11/29/22 06:35 RBC 3.35 M/mm3 (4.2-5.4) L 11/29/22 06:35 Hgb 10.0 g/dL (12.0-15.0) L 11/29/22 06:35 Hct 31.6 % (37-47) L 11/29/22 06:35 Plt Count 200 K/mm3 (150-450) 11/29/22 06:35 CHEMISTRY Potassium 3.6 mmol/L (3.5-5.1) 11/29/22 06:35 Sodium 136 mmol/L (136-145) 11/29/22 06:35 Magnesium 2.3 mg/dL (1.6-2.6) 09/29/22 09:40 Phosphorus 1.9 mg/dL (2.5-4.9) L 10/02/22 04:10 BUN 11 mg/dL (7-18) 11/29/22 06:35 Creatinine 0.50 mg/dL (0.55-1.02) L 11/29/22 06:35 Glucose 97 mg/dL (74-106) 11/29/22 06:35 TSH 0.81 uIU/mL (0.358-3.74) 11/04/13 09:53 COAG PT 12.0 SECONDS (11.7-14.9) 11/27/22 12:20 Pre-Assessment Diagnosis/Proposed Procedure Planned Operative Procedure(s): EGD Anesthesia History 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 When Was Last Pacemaker Check QUESTION #4 FULL TEXT: You/Your Family Experience fever (hyperthermia) with Anesthesia Last Oral Intake Last Oral intake: Last Oral Intake NPO since 00:00 03/08/24 11:18 Meds taken in AM with sips of Yes 03/08/24 11:18 water? 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 Female Yes 03/07/24 08:47 HX of Motion Sickness No 03/07/24 08:47 HX of N/V After Surgery No 03/07/24 08:47 Non-Smoker Yes 03/07/24 08:47 Duration of Surgery greater No 03/07/24 08:47 than 60 minutes Number of Risk Factors 2 03/07/24 08:47 PONV Score Moderate Risk 03/07/24 08:47 Height & Weight Height & Weight: Anesthesia: Height & Weight Height 5 ft 1 in 03/08/24 11:18 Weight: 53.8 kg 03/08/24 11:18 Body Mass Index (BMI) 22.4 03/08/24 11:18 Respiratory Assessment Respiratory Assessment - technical cable jointer: Respiratory Tract Infection Hx - technical cable jointer Hx Respiratory Tract Infection No 03/07/24 08:47 STOP Sleep Apnea STOP Sleep Apnea - technical cable jointer: STOP Sleep Apnea - technical cable jointer Hx Hypertension No 03/07/24 08:47 Hx Sleep Apnea Yes 03/07/24 08:47 CPAP No 03/07/24 08:47 BIPAP No 03/07/24 08:47 Do you snore loudly (louder than talking or can be heard Do you often feel tired/ fatigued/ sleepy during daytime? Has anyone observed you stop breathing during sleep? STOP Results Positive 03/07/24 08:47 QUESTION #5 FULL TEXT : Do you snore loudly (louder than talking or can be heard through closed doors)? 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 Specify any problems Hx of Preganancy in last 3 N/A 03/07/24 08:47 Months Nurse Filling Out Transfusion NBUCHER 03/07/24 08:47 & Questions: Date: 03/07/24 03/07/24 08:47 Time: 08:49 03/07/24 08:47 Patient unable to answer at this time (ie. confused, unrespo /Reproduction History /Reproductive History - technical cable jointer: /Reproductive Hx- technical cable jointer Hx Now Gestational Age (in weeks): EDC: Hx Hx Para Hx Section SAB No 03/07/24 08:47 PFSH Medical History (Updated 03/07/24 @ 08:52 by Earlene Vargas) History of fall Zenkers diverticulum Back pain Kidney stones Irregular heart beat Closed head injury Fracture of hip, right, closed Wears glasses Wears contact lenses Post-menopausal History of steroid therapy Arthritis Rheumatoid arthritis Easy bruising Injury of back Back pain History of hiatal hernia Gastric reflux Sleep apnea History of pain when walking Normal stress echocardiogram Cardiology follow-up encounter History of irregular heartbeat MVP (mitral valve prolapse) Premature ventricular contraction Premature atrial contraction Supraventricular tachycardia Home Medications ?Medication ?Instructions ?Recorded ?Last Taken ?Type methotrexate sodium (PF) 25 mg/mL 75 mg IM TH Check with primary 11/29/13 03/03/24 History injection solution doctor prednisone 5 mg tablet 5 mg PO DAILY Check with primary 11/29/13 03/07/24 History doctor alendronate 70 mg tablet (Fosamax) 70 mg PO QWEEK Check with primary 11/10/18 03/02/24 History doctor folic acid 400 mcg tablet 0.8 mg PO DAILY@0800 Supplement 11/10/18 03/07/24 History multivitamin 3 tab PO DAILY Supplement 06/25/21 03/07/24 History tofacitinib 5 mg tablet (Xeljanz) 5 mg PO BID Check with primary 06/25/21 03/08/24 History doctor ascorbic acid (vitamin C) 500 mg 500 mg PO DAILY Supplement 05/27/22 03/07/24 History capsule acetaminophen 500 mg tablet 1,000 mg PO Q8 Pain 10/02/22 03/07/24 History lansoprazole 30 mg capsule,delayed 30 mg PO DAILY Check with primary 10/02/22 03/08/24 History release (Prevacid) doctor tramadol 50 mg tablet 50 mg PO Q8H PRN pain #3 tabs 10/02/22 03/08/24 Rx cholecalciferol (vitamin D3) 50 125 mcg PO DAILY Supplement 03/17/23 03/07/24 History mcg (2,000 unit) capsule Allergy/AdvReac Type Severity Reaction Status Date / Time amoxicillin trihydrate (From Allergy Intermediate Rash Verified 03/08/24 11:17 Trimox) Penicillins Allergy Swelling Verified 03/08/24 11:17 Family History Father CAD (coronary artery disease) CVA (cerebral vascular accident) Hypertension Heart disease Brother CAD (coronary artery disease) Mother Osteoporosis Surgical History (Updated 03/07/24 @ 08:52 by Earlene Vargas) History of Zenker's diverticulum removal History of esophagogastroduodenoscopy (EGD) History of right hip hemiarthroplasty History of removal of ovarian cyst History of incisional hernia repair Hx of kyphoplasty History of cardiac radiofrequency ablation (~2000) Hx of cataract surgery Hx of hernia repair H/O total knee replacement Social History household members: none Smoking Status: Never smoker alcohol intake: never substance use type: does not use what type of physical activity do you participate in: none Review of Systems (Anesthesia) ROS Narrative System reviewed and no additional complaints, except as documented.
--- NOTE | 2024-03-08 11:52 | PCM.HP.BLA ---
History and Physical Date of Admission: 03/08/24 ESTEBAN VALERIO, is a 83 F who presents to the office today for establishment with [facility]. She has a PMHx of Zenker diverticulum, GERD, RA, MVP, PVCs and osteoporosis. She is here today for persistent nausea and epigastric pain. She had an EGD with Dr. Matthew in October 2022 which showed Zenker diverticulum, hiatal hernia and stenosis. She had repair of the diverticulum in March which helped with her dysphagia a little bit. She has had nausea for years. When she eats she will feel nauseous very quickly but tries hard not to vomit. She does not eat large meals. She has had a 30 lbs weight loss over the past year. The epigastric pain starts in her esophagus and goes up to her jaw. It wakes her up at night sometimes. SHe has been on prescription and OTC mediations for heartburn and nausea and nothing works. EGD .06.02 Zenker's diverticulum. - Benign-appearing esophageal stenosis. Dilated. - Large hiatal hernia. - No gross lesions in the first portion of the duodenum. - No specimens collected. ROS Const Constitutional: Positive for fatigue, fever(s), weakness and weight change (weight loss) ENT ENT: Positive for difficulty swallowing Cardio Cardiology: Positive for leg pain with exertion Gastro GI: Positive for abdominal pain, bloating, change in bowel habits, heartburn, difficulty swallowing, excessive flatus and nausea/dyspepsia; No belching, change in stool character, coffee ground emesis, constipation, cramping, diarrhea, feeling full early, incontinent of stools, Vomiting blood/hematemesis, Blood in stool, loose stools, Black,tarry stools, pain with swallowing, vomiting or other Musc Musculoskeletal: Positive for abnormal gait, joint pain, joint swelling, sciatica and leg pain with exertion Skin Skin: Positive for itchy eyes; No yellowing of the eye Neuro Neurology: Positive for abnormal gait and weakness Psych Psychiatric: No anxiety, No depression and Positive for Temper Tantrums Endo Endocrine: Positive for fatigue and weight change (weight loss) Aller/Imm Allergy/Immunologic: Positive for itchy eyes Luis Daniel/Lymp Hematologic/Lymphatic: No easy bleeding or easy bruising Exam Const General: cooperative and comfortable Nutritional Appearance: average body habitus and well nourished HENMT Head: normal to inspection Ears: hearing grossly normal bilaterally Nose: external nose normal Face and sinus: normal facial exam Mouth: oral mucosae normal Throat: posterior oropharynx normal Eyes General: appearance normal, both eyes and all related structures Neck Neck: normal visual inspection Chest Chest palpation & inspection: normal inspection of the chest Resp Effort & Inspection: normal respiratory effort GI Inspection: normal to inspection Palpation: no hepatosplenomegaly Skin General: no rashes or lesions noted Neuro General: patient alert Extrem General: normal to inspection Psych Affect: normal affect Assessment and Plan Assessment and Plan (1) Abdominal pain: (2) Nausea: Status: Acute (3) Hiatal hernia with GERD: Status: Acute Plan: Pt is an 83 yo female here today for evaluation. She has had chronic nausea and epigastric pain for years now. In March 2023 she has procedure to fix a zenker diverticulum. Since then her swallowing has improved but she still has to eat slow. She did have an EGD with dilation in October [address] Matthew. She may need dilation again. She will be scheduled for this.She has nausea daily but does not vomit. She is very hungry but as soon as she eats she gets full and feels nauseous. It is worse in the evening. She has never had a GES. Her symptoms seem consisted for gastroparesis. I will order GES to rule out a motility issue with her stomach. -EGD with dilation -GES -f/u in 3 months Orders: Orders Gastric Emptying Study Today R11.0 - Nausea
--- NOTE | 2024-03-08 12:00 | EGD_PTH ---
PATHOLOGY RESULTS PATIENT: ESTEBAN VALERIO I LOC: EN U#:[id number] AGE/SX: 83/F ROOM: RE03/08/[address]: Dr. Jimenez Matthew DO : 1940 BED: DIS: 03/08/2024 SPEC #: [id number] RECD: 03/08/24 12:58 STATUS: PARKER JAGUAR #: [id number] YASMIN: 03/08/24 12:[address]: Jimenez Matthew DEPT: SURGICAL PATHOLOGY RECD BY: Ino Keith ENTERED: 03/08/24 13:27 SP TYPE: EGD BIOPSY [facility] DR: Milagros Aguirre, DISPLAY ASSOCIATE-C Tissues: Esophagus, NOS Procedures: Special Stain Group I Surgery Specimen Level IV Alcian Blue/PAS (control) HEADER OPERATION: EGD with biopsy PRE-OP DIAGNOSIS: Abdominal pain, nausea, Hiatal hernia with GERD TISSUE SUBMITTED: Distal esophagus biopsy MICROSCOPIC DIAGNOSIS Distal esophagus, biopsy: Fragments of gastroesophageal mucosa with moderate chronic inflammation and mild acute inflammation. Intestinal metaplasia (goblet cell metaplasia) not identified. See comment. 03/09/2024 COMMENT Alcian blue/PAS stain with matched control is used in the evaluation of the specimen. MICROSCOPIC DESCRIPTION Slides are reviewed. GROSS DESCRIPTION Received in fixative is one container labeled with the patient's name and designated Distal esophagus biopsy. The specimen consists of two irregular fragments of light colon soft tissue that in aggregate measure 0.6 x 0.3 x 0.1 cm. The specimen is totally submitted in one cassette. 03/08/2024 TC:3 CPT:38400,45918
--- NOTE | 2024-03-08 12:12 | OP.EGD_ITS ---
Patient Name: Huyen Lakhani Procedure Date: 03/08/2024 11:53 AM Date of : 1940 Age: 83 Procedure: Upper GI endoscopy Indications: Epigastric abdominal pain, Dysphagia Providers: Jimenez Matthew DO Medicines: Monitored Anesthesia Care Patient Profile: This is an 83 year old female. Refer to note in patient chart for documentation of history and physical. Patient has symptoms of chronic abdominal cramping and acute abdominal distention. Complications: No immediate complications. Procedure: Pre-Anesthesia Assessment: - Prior to the procedure, a History and Physical was performed, and patient medications and allergies were reviewed. The patient is competent. The risks and benefits of the procedure and the sedation options and risks were discussed with the patient. All questions were answered and informed consent was obtained. Patient identification and proposed procedure were verified by the physician in the pre-procedure area. Mental Status Examination: alert and oriented. Airway Examination: normal oropharyngeal airway and neck mobility. Respiratory Examination: clear to auscultation. CV Examination: normal. Prophylactic Antibiotics: The patient does not require prophylactic antibiotics. Prior Anticoagulants: The patient has taken no anticoagulant or antiplatelet agents except for NSAID medication. ASA Grade Assessment: II - A patient with mild systemic disease. After reviewing the risks and benefits, the patient was deemed in satisfactory condition to undergo the procedure. The anesthesia plan was to use monitored anesthesia care (MAC). Immediately prior to administration of medications, the patient was re-assessed for adequacy to receive sedatives. The heart rate, respiratory rate, oxygen saturations, blood pressure, adequacy of pulmonary ventilation, and response to care were monitored throughout the procedure. The physical status of the patient was re-assessed after the procedure. After obtaining informed consent, the endoscope was passed under direct vision. Throughout the procedure, the patient's blood pressure, pulse, and oxygen saturations were monitored continuously. The Endoscope was introduced through the mouth, and advanced to the second part of duodenum. The upper GI endoscopy was accomplished without difficulty. The patient tolerated the procedure well. 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 The maximum longitudinal extent of these mucosal changes was 1 cm in length. Mucosa was biopsied with a cold forceps for histology in a targeted manner at intervals of 1 cm in the lower third of the esophagus. One specimen bottle was sent to pathology. Biopsies were taken with a cold forceps for histology. Verification of patient identification for the specimen was done. Estimated blood loss was minimal. Evidence of a fundoplication was found in the gastric fundus. The wrap appeared loose. This was traversed. A large amount of food (residue) was found in the gastric body. No gross lesions were noted in the first portion of the duodenum. 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 Biopsied. - A fundoplication was found. The wrap appears loose. There was partial dehiscence of previous fundoplication - A large amount of food (residue) in the stomach. - No gross lesions in the first portion of the duodenum. Recommendation: - Discharge patient to home. - Gastroparesis diet. - Use metoclopramide 5 mg PO QID; 30 min AC and HS for 4 weeks. - Continue present medications. Procedure Code(s): --- Professional --- 37883, Esophagogastroduodenoscopy, flexible, transoral; with biopsy, single or multiple CPT copyright 2021 [employer]. All rights reserved. The codes documented in this report are preliminary and upon printed circuit photographer review may be revised to meet current compliance requirements. Jimenez Matthew DO 03/08/2024 12:12:28 PM This report has been signed electronically. Number of Addenda: 0 Note Initiated On: 03/08/2024 11:53 AM
--- NOTE | 2024-03-08 12:12 | OP.CCLET_ITS ---
03/08/2024 Aida Barrera Re : Upper GI endoscopy procedure for Huyen Lakhani Dear Carla This procedure was performed on Friday, March 08, 2024. 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 Biopsied. - A fundoplication was found. The wrap appears loose. There was partial dehiscence of previous fundoplication - A large amount of food (residue) in the stomach. - No gross lesions in the first portion of the duodenum. Recommendations : - Discharge patient to home. - Gastroparesis diet. - Use metoclopramide 5 mg PO QID; 30 min AC and HS for 4 weeks. - Continue present medications. My findings are described in the full procedure note, which is enclosed. If I can be of further assistance, please feel free to contact me at . Sincerely, Jimenez Matthew, 03/08/2024 12:12:28 PM This report has been signed electronically.
--- NOTE | 2024-03-08 12:15 | PCM.POST.ANE ---
Anesthesia: Postop Eval I Current Vital Signs Temperature: 97.9 F Pulse Rate: 76 Blood Pressure: 105/64 Respiratory Rate: 16 Pulse Ox: 99 Oxygen Delivery Method: Room Air Assessment Airway patent: Yes Spontaneous unlabored respirations: Yes Mental status: Asleep nausea: No Vomiting: No Anesthesia Complication: No Fluid Hydration Crystalloid volume administer (ml): 30 Total IV fluid infused: 30 Progress Note Anesthesia document: Postop Eval 1 completed: Yes
--- NOTE | 2024-03-08 12:29 | PCM.POSTANE2 ---
Anesthesia Postop Eval I Sum Postop Eval Completion status Anesthesia document: Postop Eval 1 completed: Yes Anesthesia Postop Eval I Summary Anesthesia Postop Eval I Summary: Anesthesia Postop Eval I: Assessment Summary Airway patent Yes 03/08/24 12:16 [email or web address] Spontaneous unlabored Yes 03/08/24 12:16 [email or web address] respirations Mental status Asleep 03/08/24 12:16 [email or web address] nausea No 03/08/24 12:16 [email or web address] Vomiting No 03/08/24 12:16 [email or web address] Anesthesia Postop Eval I: Fluid Summary Crystalloid volume administer 30 03/08/24 12:16 [email or web address] (ml) Colloids volume administered ( ml) Blood Product volume administered (ml) Total IV fluid infused 30 03/08/24 12:16 [email or web address] Anesthesia Postop Eval I: Summary Notes Anesthesia Complication No 03/08/24 12:16 [email or web address] Anesthesia Complication Comment: Post-operative progress note Anesthesia: Postop Eval II Evaluation Mental status: Awake Pain Level: 0 nausea: No Vomiting: No
== END 2024-03-08 13:15 | disposition home or self-care (01) ==
LOC: EN 10:54 → AC 10:56
PROVIDERS: PCP Registered Nurse; Referring Provider Registered Nurse; Visit Provider Internal Medicine Gastroenterology
PROC: 0DJ08ZZ Inspection of Upper Intestinal Tract, Via Natural or Artificial Opening Endoscopic (ICD-10-PCS; CPT 43235; principal; 2024-03-08 11:55)
DX: K21.00 Gastro-esophageal reflux disease with esophagitis, without bleeding (principal); K44.9 Diaphragmatic hernia without obstruction or gangrene; Z79.52 Long term (current) use of systemic steroids; Z79.899 Other long term (current) drug therapy; Z87.19 Personal history of other diseases of the digestive system
CPT/HCPCS: 43239; 88305; 88312; A4216; J2405

== ENCOUNTER → 2024-04-19 | Outpatient (CLI) | payer MEDICARE, SELFPAY ==
--- NOTE | 2024-04-19 13:07 | NM_ITS ---
CLINICAL: 83-year-old female with history of chronic nausea. SEMI-SOLID PHASE 99m Tc SULFUR COLLOID GASTRIC EMPTYING STUDY COMPARISON: None available FINDINGS: The patient was administered 1.0 mCi of 99m Tc sulfur colloid mixed with oatmeal and consumed per os. Image acquisitions in the anterior-posterior projections were obtained for 60 minutes. There is prompt visualization of the stomach. There is no gastroesophageal reflux identified. The T ? linear fit was calculated to be 32.58 minutes, (Normal: 12-56 minutes). NM/Gastric Emptying Study IMPRESSION: 1. NORMAL 99m Tc sulfur colloid semi-solid phase (oatmeal) gastric emptying imaging examination. A. There is normal and preserved semi-solid phase gastric emptying compared to normal controls. (Yane et al, J Nucl Med Tech 38: 186, 2010). Electronically Signed: Hever Hernandez DO at 11:35 EST ,
== END | disposition home or self-care (01) ==
PROVIDERS: PCP Registered Nurse; Referring Provider Student in an Organized Health Care Education/Training Program; Visit Provider Student in an Organized Health Care Education/Training Program
DX: R11.0 Nausea (principal)
CPT/HCPCS: 78264; A9541

== ENCOUNTER → 2024-07-05 | Outpatient (CLI) | payer MEDICARE, SELFPAY ==
--- NOTE | 2024-07-05 12:30 | RAD_ITS ---
PROCEDURE: THORACIC SPINE 3 VIEWS REASON FOR EXAM: History of compression fracture. TECHNIQUE: AP and lateral views of the thoracic spine were obtained. COMPARISON: None. FINDINGS: Almost complete collapse of the T4 and T5 vertebrae. Prior vertebroplasty of the T4 vertebrae. Loss of height of the superior endplate of the T6 vertebrae. Mild multilevel disc space narrowing. Demineralization of the thoracic vertebrae. Increased kyphosis. Reading Location: [id number]
== END | disposition home or self-care (01) ==
LOC: RAD 12:28
PROVIDERS: PCP Registered Nurse; Referring Provider Anesthesiology Pain Medicine; Visit Provider Anesthesiology Pain Medicine
DX: S22.000A Wedge compression fracture of unspecified thoracic vertebra, initial encounter for closed fracture (principal); X58.XXXA Exposure to other specified factors, initial encounter
CPT/HCPCS: 72072

== ENCOUNTER → 2024-09-15 | Outpatient (CLI) | payer MEDICARE, SELFPAY ==
--- NOTE | 2024-09-15 14:42 | RAD_ITS ---
EXAM: XR Cervical Spine, 2 or 3 Views CLINICAL INDICATION: NECK PAIN TECHNIQUE: Frontal and lateral views of the cervical spine. COMPARISON: XR Cervical Spine dated 10/18/2021 FINDINGS: VERTEBRAE: Degenerative facet arthropathy throughout the cervical spine. Normal alignment. No acute fracture. DISC SPACES: Degenerative disc disease throughout the cervical spine. SOFT TISSUES: Unremarkable. RAD/Cerv Spine 2 or 3 Views IMPRESSION: 1. No acute fracture. 2. If symptoms persist, further evaluation with MRI is recommended. 3. Degenerative changes of the cervical spine as described. Reading Location: [id number]
== END | disposition home or self-care (01) ==
LOC: RAD 14:38
PROVIDERS: PCP Registered Nurse; Referring Provider Anesthesiology Pain Medicine; Visit Provider Anesthesiology Pain Medicine
DX: M54.2 Cervicalgia (principal)
CPT/HCPCS: 72040

== ENCOUNTER → 2024-10-04 | Outpatient (CLI) | payer MEDICARE, SELFPAY ==
--- NOTE | 2024-10-04 10:15 | BI_ITS ---
EXAM: SCRN MAMM (CAD)W/STAR BILAT DATE: 10/04/2024 CLINICAL HISTORY: F, Age 84 y/o , SCREENING Grandmother with breast cancer. BREAST CANCER RISK ASSESSMENT: Not assessed. TECHNIQUE: Bilateral screening digital breast tomosynthesis with 2D and 3D images. Computer aided detection. COMPARISON: Prior exam(s) dated September 18, 2023.. FINDINGS: TISSUE DENSITY: The breast tissue is composed of scattered area of fibroglandular density. Bilateral Breast Mammographic Findings: No significant masses, calcifications or other abnormalities are identified. No suspicious masses, areas of developing architectural distortion, or suspicious calcifications. There has been no significant interval change. BI/SCRN MAMM (CAD)W/STAR BILAT IMPRESSION: OVERALL FINAL ASSESSMENT: BIRADS 1 NEGATIVE RECOMMENDATION: Routine annual follow-up in 1 Year A letter with findings and recommendations will be mailed to the patient. Reading Location: [place] [id number]
== END | disposition home or self-care (01) ==
LOC: OPBI 10:14
PROVIDERS: PCP Registered Nurse; Referring Provider Registered Nurse; Visit Provider Registered Nurse
DX: Z12.31 Encounter for screening mammogram for malignant neoplasm of breast (principal)
CPT/HCPCS: 77063; 77067

== ENCOUNTER 2024-10-15 07:56 | Observation (INO) | payer MEDICARE, SELFPAY ==
[2024-10-15] VITALS (7 sets, daily range): BP systolic 130–154; BP diastolic 63–85; PULSE 62–87; RESP 15–18; TEMP 36.4–37.2; O2SAT 94–99; BMI 25.2; BMI 22.4
--- OUTSIDE RECORDS SUMMARY | 2024-10-15 08:35 | XMS RPT_ITS | CCD ---
Author Organization [facility] Care Team Providers Care Bulb Packer Name Role Phone Nasir VALERIO, Matias Shin Unavailable Taj Birmingham Unavailable Unavailable Blake RN, Jamila Frost Unavailable Lu DAY, LEAD PROGRAMMER-C Geraldine Primary Care Provider [phone] Lu DAY, LEAD PROGRAMMER-C Geraldine Referring Provider Dr. Nilda Ulrich Attending Provider Elsa DAY NP-C Milagros Primary Care Provider Dr. Matias Best Attending Provider Dr. Nilda Ulrich Referring Provider Dr. Nilda Ulrich Other Provider Elsa DAY NP-C Milagros Referring Provider Nancy DAY NP-C Jacquie Attending Provider Dr. Maria Victoria Campoverde Attending Provider Dr. Maria Victoria Campoverde Referring Provider Dr. Maria Victoria Campoverde Other Provider Dr. Nilda Ulrich Attending Provider Lu DAY LEAD PROGRAMMER-C Geraldine Referring Provider Dr. Tucker Hernandez Attending Provider [phone] Maria Victoria Campoverde Referring Provider Elsa DAY NP-C Milagros Primary Care Provider Elsa LEAD PROGRAMMER, LEAD PROGRAMMER-C Milagros Referring Provider [phone] Dr. Maria Victoria Campoverde Attending Provider Care Physician, No Primary Primary Care Provider Unavailable Care Physician, No Primary Referring Provider Un available Dr. Po Ford Referring Provider Roof LEAD PROGRAMMER, LEAD PROGRAMMER-C Po Powell Attending Provider ELSA CORK TILE FLOOR LAYER-SPENT GRAIN DRYER, MILAGROS A Primary Care Physi rubina JESSE MCDONALD, DR. POOLE Attending Unavaila ble ELSA SPENT GRAIN DRYER, MILAGROS A Primary Care Unavail able Elsa LEAD PROGRAMMER, LEAD PROGRAMMER-C Milagros Primary Care Provider Elsa LEAD PROGRAMMER, LEAD PROGRAMMER-C Milagros Referring Provider Nancy LEAD PROGRAMMER, LEAD PROGRAMMER-C Jacquie Attending Provider Elsa LEAD PROGRAMMER, LEAD PROGRAMMER-C Milagros Primary Care Provider Elsa LEAD PROGRAMMER, LEAD PROGRAMMER-C Milagros Referring Provider [phone] Nancy LEAD PROGRAMMER, LEAD PROGRAMMER-C Jacquie Attending Provider Elsa LEAD PROGRAMMER, LEAD PROGRAMMER-C Milagros Primary Care Provider Dr. Nilda Cole Emergency Provider Dr. Ever Hummel Admit Provider Dr. Ever Hummel Attending Provider Dr. Ever Hummel Other Provider Dr. Alfred Knutson Other Provider Dr. Josephine Watson Attending Provider Dr. Josephine Watson Other Provider Dr. Adalberto Willingham Chi Admit Provider Dr. Adalberto Willingham Chi Other Provider Dr. Michelle Manley Other Provider [phone] Tiff, Dr. Gaona Attending Provider Elsa LEAD PROGRAMMER, LEAD PROGRAMMER-C Milagros Referring Provider [phone] Dr. Jimenez Matthew Other Provider Dr. Adalberto Willingham Chi Referring Provider [phone] ALLAN, NORA C Primary Care Unavailable ALLAN, NORA C Attending Unavailable SALAZAR, KIYA J Consulting Unavailable ALLAN, NORA C Admitting Unavailable PROVIDER, UNKNOWN Consulting Unavailable MONAHAN, LORENZO C Attending Unavailable SALAZAR, KIYA J Consulting Unavailable SALAZAR, KIYA J Referring Unavailable MONAHAN, LORENZO C Admitting Unavailable MONAHAN, LORENZO C Primary Care Unavailable PROVIDER, UNKNOWN Consulting Unavailable ALLAN, NORA C Primary Care Unavailable ALLAN NORA C Attending Unavailable MILAGROS HUNTER NP Consulting Unavailabl e ALLAN, NORA C Admitting Unavailable PROVIDER, UNKNOWN Consulting Unavailable Elsa LEAD PROGRAMMER, LEAD PROGRAMMER-C Milagros Primary Care Provider Elsa LEAD PROGRAMMER, LEAD PROGRAMMER-Micheal Linares Referring Provider [phone] Alice LEAD PROGRAMMER, LEAD PROGRAMMER-C Po Powell Attending Provider [phone] Salazar, Kiya J Unavailable Elsa SPENT GRAIN DRYER, Milagros Angelo Primary Care Provider Katarina Wilks Unavailable HORN, NEFTALY GHANSHYAM Referring Unavailable HORN, NEFTALY GHANSHYAM Referring Unavailable HORN, NEFTALY GHANSHYAM Referring Unavailable HORN, NEFTALY GHANSHYAM Referring Unavailable HORN, NEFTALY GHANSHYAM Referring Unavailable HORN, NEFTALY GHANSHYAM Referring Unavailable HORN, NEFTALY GHANSHYAM Referring Unavailable HORN, NEFTALY GHANSHYAM Referring Unavailable HORN, NEFTALY GHANSHYAM Referring Unavailable HORN, NEFTALY GHANSHYAM Referring Unavailable HORN, NEFTALY GHANSHYAM Referring Unavailable HORN, NEFTALY GHANSHYAM Referring Unavailable HORN, NEFTALY GHANSHYAM Referring Unavailable HORN, NEFTALY GHANSHYAM Referring Unavailable HORN, NEFTALY GHANSHYAM Referring Unavailable HORN, NEFTALY GHANSHYAM Referring Unavailable SOCORRO ALCAZAR Referring Unavailable INGE, SOCORRO M Referring Unavailable INGE, SOCORRO M Referring Unavailable INGE, SOCORRO M Referring Unavailable INGE, SOCORRO M Referring Unavailable INGE, SOCORRO M Referring Unavailable HORN, NEFTALY GHANSHYAM Referring Unavailable SALAZAR, KIYA J Primary Care Unavailable VELLANVERONICA KATARINA L Referring Unavailable SALAZAR, KIYA J Primary Care Unavailable COOPERLAURE COCHRAN II Attending Unavailabl e ELSA, MILAGROS A Primary Care Unavailable SALAZAR, KIYA J Primary Care Unavailable SALAZAR, KIYA J Primary Care Unavailable SALAZAR, KIYA J Primary Care Unavailable SALAZAR, KIYA J Primary Care Unavailable SALAZAR, KIYA J Primary Care Unavailable KATARINA WILKS Referring Unavailable Elsa SPENT GRAIN DRYER, Milagros A Primary Care Provider ELSA CORK TILE FLOOR LAYER-SPENT GRAIN DRYER, MILAGROS Angelo Attending Un available ELSA CORK TILE FLOOR LAYER-SPENT GRAIN DRYER, MILAGROS A Primary Care Un available Elsa LEAD PROGRAMMER-C, [place] Primary Care Provider Elsa LEAD PROGRAMMER-C, Milagros Referring Provider [phone] Leilani Finch Attending Provider Leilani Finch Referring Provider Dr. Mylene Hoskins MD Attending Provider Dr. Mylene Hoskins MD Referring Provider Elsa LEAD PROGRAMMER-C, [place] Primary Care Provider [phone] Elsa LEAD PROGRAMMER-C, Milagros Referring Provider [phone] Leilani Finch Attending Provider Elsa LEAD PROGRAMMER-C, Milagros Attending Provider [phone] Roosevelt Zimmerman Attending Unavailable Elsa LEAD PROGRAMMER, [facility] Unavailabl e Elsa LEAD PROGRAMMER, Milagros Referring Unavailabl e Elsa LEAD PROGRAMMER, Milagros Attending Unavailabl e Elsa LEAD PROGRAMMER, [place] [facility] Unavailabl e Elsa LEAD PROGRAMMER, Milagros Attending Unavailabl e Elsa LEAD PROGRAMMER, [place] [facility] Unavailabl e Elsa LEAD PROGRAMMER, Milagros Referring Unavailabl e Parviz Mandujano Attending Unavailable Elsa LEAD PROGRAMMER, [place] [facility] Unavailabl e Elsa LEAD PROGRAMMER, Milagros Referring Unavailabl e Leilani Gonzales Attending Unavailable Elsa LEAD PROGRAMMER, [facility] UnavailMylene Sierra Referring Unavailable Mylene Hoskins Attending Unavailable Elsa LEAD PROGRAMMER, [place] [facility] Unavailabl e Elsa LEAD PROGRAMMER, [place] Referring Unavailabl Jimenez Rebolledo Attending Unavailable Jimenez Matthew Consulting Unavailable Elsa LEAD PROGRAMMER, [facility] Unavailabl e Atanasov, Leilani Attending Unavailable Elsa LEAD PROGRAMMER, Milagros Referring Unavailabl e Elsa LEAD PROGRAMMER, [facility] Unavailabl e Elsa LEAD PROGRAMMER, [place] Referring Unavailabl e Jus LEAD PROGRAMMER, Inge Attending Unavailable Elsa LEAD PROGRAMMER, [facility] Unavailabl e Atanasov, Leilani Referring Unavailable Atanasmax, Leilani Attending Unavailable Elsa LEAD PROGRAMMER, [facility] Unavailabl e Elsa LEAD PROGRAMMER, [place] Referring Unavailabl e Friend, Jimenez Attending Unavailable Elsa LEAD PROGRAMMER, [facility] Unavailabl e Basali, Ayman Referring Unavailable Basali, Mylene Attending Unavailable Elsa LEAD PROGRAMMER, [facility] Unavailabl e Elsa LEAD PROGRAMMER, [place] Referring Unavailabl e Atanasov, Leilani Attending Unavailable Elsa LEAD PROGRAMMER, [facility] Unavailabl e Basali, Ayman Referring Unavailable Basali, Mylene Attending Unavailable Elsa LEAD PROGRAMMER, [facility] Unavailabl e Elsa LEAD PROGRAMMER, Milagros Attending Unavailabl e Elsa LEAD PROGRAMMER, [facility] Unavailabl e Elsa LEAD PROGRAMMER, [place] Referring Unavailabl e Allergies Allergy Classification Reported Allergen(s) Allergy Type Date of Onset Reaction(s) Facility Penicillins (antibiotic) (1 source) Penicillins Drug Allergy 4 Hives, Rash, Swelling [facility] (4 sources) amoxicillin drug allergy 4 [facility] Work Phone: (18 sources) Amoxicillin; Translations: [amoxicillin trihydrate] Drug Allergy 2 [facility] (2 sources) Penicillin; Translations: [penicillins] Drug Allergy Weal (disorder) [facility] (9 sources) Penicillins; Translations: [PENICILLINS] Allergy to substance 4 [facility] (1 source) Penicillins Drug allergy (disorder) [facility] Repository (1 source) 06/10/17(+) CDIFF; Translations: [06/10/17(+) CDIFF] Propensity to adverse reactions (disorder) [facility] Repository (1 source) Penicillins Drug Allergy 4 Hives, Rash, Swelling [facility] (3 sources) Trimax; Translations: [TRIMAX] Drug Allergy 3 Rash [facility] (2 sources) ALLERGIES NOT ON FILE; Translations: [ALLERGIES NOT ON FILE] Propensity to adverse reactions (disorder) [facility] 2 Repository (1 source) Penicillins Drug allergy (disorder) 4 [facility] Repository Medications Current Medications Medication Drug Class(es) Dates Sig (Normalized) Sig (Original) acetaminophen 500 mg oral tablet (20 sources) Start: 10-31-2022 Tylenol Oral, 0 Refill(s) Start Date: 10/31/22 Status: Ordered Start: 10-02-2022 End: 03-15-2024 take 2 tablets by mouth every eight hours Acetaminophen 500 mg tablet Discontinued 1000 mg PO EVERY 8 HOURS October 02, 2022 6:52pm March 15, 2024 11:35am Start: 10-02-2022 End: 10-02-2022 take 1000 mg by mouth every eight hours Acetaminophen Active 1000 MG PO EVERY 8 HOURS October 02, 2022 6:52pm 0.8 ml adalimumab 50 mg/ml prefilled syringe (2 sources) Tumor Necrosis Factor Sarah inject 40 mg by subcutaneous injection once adalimumab (HUMIRA) 40 mg/0.8 mL injection Inject 40 mg subcutaneously one time only. 0 Active Comment on above: Inject 40 mg subcuta neously one time only. alendronic acid 70 mg oral tablet (20 sources) Bisphosphonate Start: 019 End: 025 take 1 tablet by mouth every week Alendronate (Fosamax) 70 mg tablet Active 70 mg PO EVERY WEEK November 10, 2018 12:00am ascorbic acid 500 mg oral capsule (13 sources) Vitamin C Start: 023 take 1 capsule by mouth once daily Ascorbic Acid (Vitamin C) 500 mg capsule Active 500 mg PO DAILY May 27, 2022 1:00am Start: 05-27-2022 Ascorbic Acid (Vitamin C) Active MG PO May 27, 2022 1:00am take 1 tablet by mouth once booker y Ascorbic Acid (VITAMIN C) 1,000 mg tablet Take 1,000 mg by mouth once daily. 0 Active Comment on above: Take 1,000 mg by олег th once daily. benoxinate hydrochloride 4 mg/ml / fluorescein sodium 3 mg/ml ophthalmic solution (1 source) Diagnostic Dye Start: 08-20-19 End: 08-21-19 fluorescein-benoxina te 0.3-0.4 % 1 Drop (FLURESS) 168 hr buprenorphine 0.005 mg/hr transdermal system (20 sources) Partial Opioid Agonist Start: 03-15-20 apply 5 ug transdermal route every week Buprenorphine (Butrans) 5 mcg/hour patch weekly Active 1 NMA TD EVERY WEEK March 15, 2024 1:00am Start: 07-29-2023 buprenorphine (BUTRANS) 5 mcg/hour Start: 06-19-2023 apply 1 dose transde rmal route every week buprenorphine 5 mcg/hr transdermal film, extended release Dose = 1 patch(es), Transdermal, qWeek, # 4 patch(es), 0 Refill(s), 52.7 Start Date: 06/19/23 Status: Ordered Start: 03-17-2023 End: 03-07-2024 Buprenorphine Hcl (Belbuca) 75 mcg film Discontinued 75 ug BUCCAL Q12H March 17, 2023 1:00am March 07, 2024 8:46am Start: 10-13-2022 End: 03-17-2023 apply 5 ug transdermal route every week Buprenorphine (Butrans) 5 mcg/hour Patch Weekly Discontinued 1 NMA TD EVERY WEEK 0 October 13, 2022 12:00am March 17, 2023 12:41pm Start: 12-18-2021 buprenorphine 5 mcg/hr transdermal film, extended release Apply 1 patch(es), Transdermal, qWeek, # 4 patch(es), 0 Refill(s) Start Date: 12/18/21 Status: Ordered Start: 09-16-2021 apply 10 ug topically every we ek Buprenorphine (Butrans) 10 mcg/hour patch weekly Active 5 MCG TOPICAL EVERY WEEK September 16, 2021 9:35am Start: 06-25-2021 End: 09-16-2021 apply 10 ug topically every hour Buprenorphine (Butran s) 10 mcg/hour patch weekly Discontinued 10 ug TOPICAL FR June 25, 2021 1:00am September 16, 2021 9:37am carboxymethylcellulose sodium 5 mg/ml / glycerin 10 mg/ml / polysorbate 80 5 mg/ml ophthalmic solution (2 sources) Non-Standardized Chemical Allergen Start: 05-26-2015 [id number] (REFRESH OPTIVE ADVANCED, PF,) 0.5-1-0.5 % dpet Use 1 Drop in both eyes four times daily. 0 05/26/2015 Active Comment on above: Use 1 Drop in both e yes four times daily. cholecalciferol 0.05 mg oral capsule (20 sources) Vitamin D Start: 03-17-2023 take 1 capsul e by mouth once daily Cholecalciferol (Vitamin D3) 50 mcg (2,000 unit) capsule Active 125 ug PO DAILY March 17, 2023 12:41pm Start: 05-27-2022 End: 03-17-2023 take 1 capsule by mouth once daily Cholecalciferol (Vitamin D3) 50 mcg (2,000 unit) capsule Discontinued 50 ug PO DAILY May 27, 2022 1:00am March 17, 2023 12:43pm Start: 05-16-2022 Vitamin D (3) 45 units oral capsule 0 Refill(s) Start Date: 05/16/22 Status: Ordered Start: 01-19-2014 take 1 tablet by олег th once daily VITAMIN D 400 UNIT TABS One tablet by mouth daily CHOLECALCIFEROL [id number] Michelle Pickering RN Start: 01-19-2014 take 1 tablet by олег th once daily VITAMIN D 2000 UNIT TABS One tablet by mouth daily CHOLECALCIFEROL [id number] Matias Best MD Start: 11-29-2013 End: 11-10-2018 take 1 capsule by mouth once daily Cholecalciferol (Vitamin D3) 1,000 UNIT capsule Discontinued 1000 U PO DAILY November 29, 2013 12:00am November 10, 2018 2:16pm Cholecalciferol, Vitamin D3, 25 mcg (1,000 unit) cap Take 1,000 Units by mouth. 0 Active Comment on above: Take 1,000 Units by mouth. cycloSPORINE 0.5 mg/ml ophthalmic suspension (6 sources) Calcineurin Inhibitor Immunosuppressant Start: 01-26-20 16 take 1 drop(s) into the eye(s) twice daily cycloSPORINE (RESTASIS) 0.05 % ophthalmic emulsion Use 1 Drop in both eyes twice daily. 60 Vial 2 01/26/2016 Active Start: 10-15-2015 RESTASIS 0.05 % EMUL as directed CYCLOSPORINE [id number] Matias Best MD Start: 10-15-2015 RESTASIS 0.05 % EMUL as directed CYCLOSPORINE [id number] Matias Best MD Comment on above: Use 1 Drop in both e yes twice daily. ERGOCALCIFEROL, VITAMIN D2, (VITAMIN D ORAL) (2 sources) ERGOCALCIFEROL, VITAMIN D2, (VITAMIN D ORAL) Take by mouth. 0 Active Comment on above: Take by mouth. famotidine 20 mg oral tablet (18 sources) Histamine-2 Receptor Antagonist Start: 05-16-2022 famotidine 20 mg oral tablet Dose : 20 mg = 1 tab(s), Oral, qHS, # 60 tab(s), 0 Refill(s), other reason (Rx) Start Date: 05/16/22 Status: Ordered Start: 12-12-2020 End: 09-16-2021 take 1 tablet by mouth twice daily Famotidine 20 mg tablet Discontinued 20 mg PO TWICE A DAY December 12, 2020 12:00am September 16, 2021 9:37am folic acid (20 sources) Start: 12-18-2021 folic acid qDa y, 800 mg daily, 0 Refill(s) Start Date: 12/18/21 Status: Ordered Start: 11-10-2018 take 0.8 mg by mouth once booker y Folic Acid 400 mcg tablet Active 0.8 mg PO DAILY@799November 10, 2018 2:14pm Start: 11-10-2018 take 0.8 mg by mouth once booker y Folic Acid Active 0.8 MG PO DAILY@799November 10, 2018 2:14pm Start: 01-19-2014 take 1 tablet by олег th once daily FOLIC ACID 800 MCG TABS One tablet by mouth daily FOLIC ACID [id number] Michelle Pickering RN Start: 11-29-2013 End: 11-10-2018 take 1 tablet by mouth once daily Folic Acid 0.4 MG tablet Discontinued 0.4 mg PO DAILY@799November 29, 2013 12:00am November 10, 2018 2:17pm take 1 tablet by олег th once daily folic acid 1 mg tablet Take 1 mg by mouth once daily. 0 Active Comment on above: Take 1 mg by mouth o nce daily. ibuprofen 600 mg oral tablet (1 source) Nonsteroidal Anti-inflammatory Drug Start: 07-02-19 take 1 tablet by mouth every six hours as needed for pain Ibuprofen Active 600 MG PO EVERY 6 HOURS 28 7 July 02, 2021 4:07pm one tab every 6 hrs as needed for mild to moderate pain. Do not take with celecoxib medication lansoprazole 30 mg delayed release oral capsule (20 sources) Proton Pump Inhibitor Start: 05-11-19 End: 01-10-20 take 1 capsule by mouth once daily Lansoprazole (Prevacid) 30 mg capsule,delayed release(DR/EC) Active 30 mg PO DAILY October 02, 2022 6:52pm lansoprazole ora lly disintegrating 30 mg disintegrating tablet Take 60 mg by mouth once daily. 0 Active Comment on above: Take 60 mg by mouth once daily. linseed oil 1000 mg oral capsule (2 sources) Start: 05-26-19 take 1 capsule by mouth twice daily Flaxseed Oil 1,000 mg cap Take 1 capsule by mouth twice daily. 0 05/26/2015 Active Comment on above: Take 1 capsule by mo ut twice daily. methotrexate 25 mg/mL injectable solution (2 sources) Start: 05-16-19 inject 1 dose by subcutaneous injection every week methotrexate 25 mg/mL injectable solution Dose : 25 mg =, Subcutaneous, qWeek, 0 Refill(s) Start Date: 05/16/22 Status: Ordered MiscMED Miscellaneous Medication (1 source) Start: 03-20-20 MiscMED Miscellaneous Medication See Instructions, Takes Align probiotic dailyisc, 0 Refill(s), 50.3 Start Date: 03/20/23 Status: Ordered Multivitamin preparation (20 sources) Start: 05-16-19 take 1 tablet by mouth once daily Multivitamin Dose = 1 tab(s), Oral, Daily, 0 Refill(s) Start Date: 05/16/22 Status: Ordered Start: 06-25-2021 take 3 tablets by mo uth once daily Multivitamin Active 3 TABLET PO DAILY June 25, 2021 3:33pm Start: 06-25-2021 take 3 tablets by mo uth once daily Multivitamin Active 3 TABLET PO DAILY June 25, 2021 12:00am Start: 06-25-2021 take 3 tablets by mo ut once daily Multivitamin Active 3 TABLET PO DAILY June 25, 2021 1:00am Start: 11-10-2018 End: 09-16-2021 take 2 tablets by mouth once daily Multivitamin Discontinued 2 TABLET PO DAILY November 10, 2018 2:15pm September 16, 2021 9:36am Start: 11-10-2018 End: 09-16-2021 take 2 tablets by mouth once daily Multivitamin Discontinued 2 TABLET PO DAILY November 09, 2018 11:00pm September 16, 2021 8:36am Start: 11-10-2018 End: 09-16-2021 take 2 tablets by mouth once daily Multivitamin Discontinued 2 TABLET PO DAILY November 10, 2018 12:00am September 16, 2021 9:36am Multivitamin Tablet (3 sources) Start: 06-25-2021 Multivitamin Tablet Active 3 {tbl} PO DAILY June 25, 2021 1:00am omeprazole 40 mg delayed release oral capsule (10 sources) Proton Pump Inhibitor Start: 01-19-2014 End: 10-20-2016 Omeprazole 40 mg capsule pantoprazole 40 mg delayed release oral tablet (3 sources) Proton Pump Inhibitor Start: 03-29-2024 take 1 tablet by mouth twice daily Pantoprazole 40 mg tablet,delayed release (DR/EC) Active 40 mg PO TWICE A DAY 60 March 29, 2024 1:00am predniSONE 10 mg oral tablet (20 sources) Corticosteroid Start: 02-17-2024 End: 02-29-2024 prednisone 10mg tab (TAPER) Taper 40-30-20-10 x 3 days each dose, Oral, qDay, Take with food/meal, # 30 tab(s), 0 Refill(s), Pharmacy: [facility], Right knee pain, 155, cm, 02/17/24 11:24:00 EDT, Height, kg, 02/17/24 11:34:00 EDT, Dosing Weight Start Date: 02/17/24 Stop Date: 02/29/24 Status: Ordered Start: 12-18-2021 predniSONE 5 m g oral delayed release tablet Dose : 5 mg = 1 tab(s), Oral, qDay, # 30 tab(s), 0 Refill(s) Start Date: 12/18/21 Status: Ordered Start: 10-18-2021 End: 12-18-2021 take 3 tablets by mouth once daily Prednisone 20 MG tablet Discontinued 60 mg PO DAILY October 18, 2021 12:00am December 18, 2021 3:46pm Start: 10-18-2021 End: 12-18-2021 take 60 mg by mouth once daily Prednisone Discontinued 60 MG PO DAILY October 18, 2021 12:00am December 18, 2021 3:46pm Start: 11-29-2013 take 1 tablet by олег th once daily Prednisone 5 MG tablet Active 5 mg PO DAILY November 29, 2013 12:00am take 5 mg by mouth once daily pr edniSONE 10 mg tablet Take 5 mg by mouth once daily. 0 Active Comment on above: Take 5 mg by mouth o nce daily. tofacitinib 5 mg oral tablet (20 sources) Kinase Inhibitor Start: 06-25-2021 take 1 tablet by mouth twice daily Tofacitinib (Xeljanz) 5 mg tablet Active 5 mg PO TWICE A DAY June 25, 2021 1:00am Start: 01-19-2014 take 1 tablet by олег th twice daily XELJANZ TABS One tablet by mouth twice daily TOFACITINIB CITRATE TABS [id number] Matias Best MD Start: 01-19-2014 take 1 tablet by олег th once daily XELJANZ TABS One tablet by mouth daily TOFACITINIB CITRATE TABS [id number] Michelle Pickering RN Start: 11-29-2013 End: 11-10-2018 take 1 tablet by mouth twice daily Tofacitinib 5 MG tablet Discontinued 5 mg PO TWICE A DAY November 29, 2013 12:00am November 10, 2018 2:16pm traMADol hydrochloride 50 mg oral tablet (20 sources) Opioid Agonist Start: 03-15-2024 take 1 tablet by mouth twice daily Tramadol 50 mg tablet Active 50 mg PO TWICE A DAY March 15, 2024 11:35am Start: 10-02-2022 End: 03-15-2024 take 1 tablet by mouth every eight hours as needed for pain Tramadol 50 mg tablet Discontinued 50 mg PO Q8H as needed for pain October 02, 2022 12:35pm March 15, 2024 11:35am Start: 12-18-2021 End: 10-02-2022 take 1 tablet by mouth twice daily Tramadol 50 mg tablet Discontinued 50 mg PO TWICE A DAY December 18, 2021 3:45pm October 02, 2022 12:35pm Start: 09-16-2021 End: 12-18-2021 take 1 tablet by mouth once daily Tramadol 50 mg tablet Discontinued 50 mg PO DAILY September 16, 2021 9:36am December 18, 2021 3:46pm Start: 11-09-2019 End: 09-16-2021 take 1 tablet by mouth three times daily Tramadol 50 mg tablet Discontinued 50 mg PO THREE TIMES A DAY November 09, 2019 12:00am September 16, 2021 9:37am tropicamide 10 mg/ml ophthalmic solution (1 source) Anticholinergic Start: 08-20-2023 End: 08-21-2023 tropicamide 1 % 1 Drop (MYDRIACYL) Vitamin C 25 mg oral tablet, chewable (2 sources) Start: 05-16-2022 Vitamin C 25 m g oral tablet, chewable Dose : 25 mg = 1 tab(s), Chewed, qDay, # 30 tab(s), 0 Refill(s) Start Date: 05/16/22 Status: Ordered Vonoprazan (Voquezna) 10 mg tablet (6 sources) Start: 07-05-2024 take 1 tablet by mouth once daily Vonoprazan (Voquezna) 10 mg tablet Active 10 mg PO daily July 05, 2024 1:00am Start: 06-28-2024 End: 07-05-2024 take 1 tablet by mouth once daily Vonoprazan (Voquezna) 10 mg tablet Discontinued 10 mg PO daily June 28, 2024 1:00am July 05, 2024 7:35am Completed/Discontinued Medications Medication Drug Class(es) Dates Sig (Normalized) Sig (Original) acetaminophen 325 mg / HYDROcodone bitartrate 5 mg oral tablet (20 sources) Opioid Agonist Start: 10-13-2023 End: 03-07-2024 Hydrocodone-Acetami nophen 5-325 mg tablet Discontinued 1 {tbl} PO EVERY 6 HOURS NEEDED as needed for Pain 04 12October 13, 2023 March 07, 2024 8:43am Start: 05-11-2022 End: 05-27-2022 Hydrocodone-Acetaminophen 1 TABLET tablet Discontinued 1 {tbl} PO EVERY 4 HOURS NEEDED as needed for Pain 10 2 May 11, 2022 May 27, 2022 9:53am Start: 05-11-2022 End: 05-27-2022 take 1 tablet by mouth every four hours as needed Hydrocodone-Acetaminophen Discontinued 1 TABLET PO EVERY 4 HOURS NEEDED 10 2 May 11, 2022 May 27, 2022 9:53am Start: 07-02-2021 End: 07-17-2021 Hydrocodone-Acetaminophen 2. 5-325 mg tablet Discontinued 1 {tbl} PO THREE TIMES A DAY as needed for pain 3 July 02, 2021 July 17, 2021 11:57am Start: 07-02-2021 End: 07-17-2021 take 1 tablet by mouth three times daily Hydrocodone-Acetaminophen Discontinued 1 TABLET PO THREE TIMES A DAY 3 July 02, 2021 July 17, 2021 11:57am acetaminophen 325 mg / oxyCODONE hydrochloride 5 mg oral tablet (20 sources) Opioid Agonist Start: 10-01-2021 End: 11-13-2021 Oxycodone-Acetaminophen 5-32 5 mg tablet Discontinued 1 {tbl} PO EVERY 6 HOURS as needed for pain 3 2 October 01, 2021 November 13, 2021 1:02pm Start: 10-01-2021 End: 11-13-2021 take 1 tablet by mouth every six hours Oxycodone-Acetaminophen Discontinued 1 TABLET PO EVERY 6 HOURS 3 2 October 01, 2021 November 13, 2021 1:02pm Start: 01-19-2014 End: 01-26-2014 PERCOCET 5-325 MG TABS As ne eded OXYCODONE-ACETAMINOPHEN [id number] Matias Best MD Start: 01-19-2014 End: 01-26-2014 PERCOCET 5-325 MG TABS As ne eded OXYCODONE-ACETAMINOPHEN [id number] Matias Best MD Start: 01-19-2014 PERCOCET 5-325 MG TABS As needed OXYCODONE-ACETAMINOPHEN [id number] Michelle Pickering RN Start: 11-29-2013 End: 11-10-2018 Oxycodone-Acetaminophen 1 TA BLET tablet Discontinued 1 - 2 {tbl} PO EVERY 4 HOURS NEEDED as needed for Pain November 29, 2013 12:00am November 10, 2018 2:16pm Start: 11-29-2013 End: 11-10-2018 take 1 tablet by mouth every four hours as needed Oxycodone-Acetaminophen Discontinued 1 - 2 TABLET PO EVERY 4 HOURS NEEDED November 29, 2013 12:00am November 10, 2018 2:16pm Biotene Dry Mouth oral solution (1 source) Start: 06-19-2023 End: 12-16-2023 apply 1 dose topically twice daily Biotene Dry Mouth oral solution Dose = 15 mL, Topical, BID, # 900 mL, 5 Refill(s), Pharmacy: [id number], Dry mouth, 155, cm, 06/19/23 11:39:00 EST, Height, kg, 06/19/23 11:39:00 EST, Dosing Weight Start Date: 06/19/23 Stop Date: 12/16/23 Status: Ordered Calcium (17 sources) Phosphate Binder, Calcium Start: 11-29-2013 End: 11-10-2018 Calcium (Elemental) Discontinued November 29, 2013 10:22am November 10, 2018 2:16pm Start: 11-29-2013 End: 11-10-2018 Calcium (Elemental) Disconti nued November 28, 2013 11:00pm November 10, 2018 1:16pm Start: 11-29-2013 End: 11-10-2018 Calcium (Elemental) Disconti nued November 29, 2013 12:00am November 10, 2018 2:16pm calcium carbonate 500 mg chewable tablet (20 sources) Start: 10-02-2022 End: 03-17-2023 take 1 tablet by mouth three times daily at mealtime Calcium Carbonate 200 mg calcium (500 mg) tablet,chewable Discontinued 500 mg PO 3 TIMES DAILY WITH MEALS October 02, 2022 6:52pm March 17, 2023 12:42pm Start: 01-19-2014 take 1 tablet by олег th once daily CALCIUM 600 600 MG TABS One tablet by mouth daily CALCIUM CARBONATE [id number] Michelle Pickering RN Start: 01-19-2014 take 1 tablet by олег th once daily CALCIUM 600 600 MG TABS One tablet by mouth daily CALCIUM CARBONATE [id number] Michelle Pickering RN calcium citrate / vitamin D (4 sources) Start: 01-19-2014 take 1 tablet by mouth once daily CALCIUM + D 315-200 MG-UNIT TABS One tablet by mouth daily CALCIUM CITRATE-VITAMIN D [id number] Matias Best MD celecoxib 200 mg oral capsule (20 sources) Nonsteroidal Anti-inflammatory Drug Start: 12-12-2020 End: 03-17-2023 take 1 capsule by mouth once daily as needed for pain Celecoxib 200 mg capsule Discontinued 200 mg PO DAILY as needed for Pain December 12, 2020 1:33pm March 17, 2023 12:42pm Start: 11-10-2018 End: 12-12-2020 take 1 capsule by mouth every other day Celecoxib 200 mg capsule Discontinued 200 mg PO every other day November 10, 2018 2:14pm December 12, 2020 1:34pm Start: 05-01-2015 take 1 tablet by олег every other day CELEBREX 200 MG CAPS One tablet by mouth every other day CELECOXIB [id number] Matias Best MD Start: 11-29-2013 End: 11-10-2018 take 1 capsule by mouth once daily Celecoxib 200 MG capsule Discontinued 200 mg PO DAILY November 29, 2013 12:00am November 10, 2018 2:17pm take [address] [facility] twice daily celecoxib (CELEBREX) 200 mg capsule Take 200 mg by mouth twice daily. 0 Active Comment on above: Take 200 mg by mouth twice daily. cyclobenzaprine hydrochloride 10 mg oral tablet (8 sources) Muscle Relaxant Start: End: CYCLOBENZAPRINE HCL 10 MG TABS As needed CYCLOBENZAPRINE HCL [id number] Michelle Pickering RN dexlansoprazole 60 mg delayed release oral capsule (6 sources) Proton Pump Inhibitor Start: 017 take 1 tablet by mouth once daily DEXILANT 60 MG CPDR One tablet by mouth daily DEXLANSOPRAZOLE [id number] Matias Best MD Comment on above: Take 60 mg by mouth once daily. 0.3 ml enoxaparin sodium 100 mg/ml prefilled syringe (16 sources) Low Molecular Weight Heparin Start: 023 End: 023 Enoxaparin 30 mg/0.3 mL syringe Discontinued 30 mg SC DAILY October 02, 2022 6:52pm October 13, 2022 8:28pm for 30 days postoperatively flaxseed extract (4 sources) Non-Standardized Food Allergenic Extract, Non-Standardized Plant Allergenic Extract Start: 017 take 1 tablet by mouth once daily FLAX SEED OIL CAPS One tablet by mouth daily FLAXSEED (LINSEED) CAPS [id number] Matias Best MD fluticasone propionate 0.05 mg/actuat metered dose nasal spray (16 sources) Corticosteroid Start: 015 End: FLUTICASONE PROPIONATE 50 MCG/ACT SUSP (0.05mg/inh) 1 spray each nostril once a day FLUTICASONE PROPIONATE [id number] Matias Best MD Start: 11-06-2014 End: 05-01-2015 take 0.05 mg by inhalation once daily FLUTICASONE PROPIONATE 50 MCG/ACT SUSP (0.05mg/inh) 1 spray each nostril once a day FLUTICASONE PROPIONATE [id number] Matias Best MD Start: 01-19-2014 End: 01-26-2014 FLONASE 50 MCG/ACT SUSP Take as directed FLUTICASONE PROPIONATE [id number] Michelle Pickering RN Start: 01-19-2014 FLONASE 50 MCG /ACT SUSP Take as directed FLUTICASONE PROPIONATE [id number] Michelle Pickering RN Start: 01-19-2014 End: 01-26-2014 FLONASE 50 MCG/ACT SUSP Take as directed FLUTICASONE PROPIONATE [id number] Matias Best MD ibandronic acid 150 mg oral tablet (6 sources) Bisphosphonate Start: 01-19-2014 take 1 tablet by mouth every month BONIVA 150 MG TABS One tablet by mouth monthly IBANDRONATE SODIUM [id number] Michelle Pickering RN Comment on above: Take 150 mg by mouth once every month. Lactobacillus Combination No.9 (Adult 50+ Probiotic) 4 billion cell capsule (17 sources) Start: 11-10-2018 End: 11-09-2019 take 4 capsules by mouth once daily Lactobacillus Combination No.9 (Adult 50+ Probiotic) 4 billion cell capsule Discontinued 4000 MMU CELLS PO DAILY November 10, 2018 2:15pm November 09, 2019 1:06pm Start: 11-10-2018 End: 11-09-2019 take 4 capsules by mouth once daily Lactobacillus Combination No.9 (Adult 50+ Probiotic) 4 billion cell capsule Discontinued 4000 NMA PO DAILY November 10, 2018 12:00am November 09, 2019 1:06pm Start: 11-10-2018 End: 11-09-2019 take 4 capsules by mouth once daily Lactobacillus Combination No.9 (Adult 50+ Probiotic) 4 billion cell capsule Discontinued 4000 MMU CELLS PO DAILY November 09, 2018 11:00pm November 09, 2019 12:06pm Start: 11-10-2018 End: 11-09-2019 take 4 capsules by mouth once daily Lactobacillus Combination No.9 (Adult 50+ Probiotic) 4 billion cell capsule Discontinued 4000 MMU CELLS PO DAILY November 10, 2018 12:00am November 09, 2019 1:06pm levoFLOXacin 500 mg oral tablet (20 sources) Quinolone Antimicrobial Start: 11-27-2022 End: 11-29-2022 take 1 tablet by mouth once daily Levofloxacin 500 mg tablet Discontinued 500 mg PO DAILY November 27, 2022 12:00am November 29, 2022 11:19am Take first dose tomorrow November 28 Start: 11-29-2013 End: 11-10-2018 take 1 tablet by mouth once daily Levofloxacin 750 MG tablet Discontinued 750 mg PO DAILY November 29, 2013 12:00am November 10, 2018 2:16pm LOTEPREDNOL ETABONATE (8 sources) Corticosteroid Start: 10-15-2015 End: 10-20-2016 LOTEMAX 0.5 % SUSP as directed LOTEPREDNOL ETABONATE [id number] Matias Best MD Start: 10-15-2015 End: 10-20-2016 LOTEMAX 0.5 % SUSP as direct ed LOTEPREDNOL ETABONATE [id number] Matias Best MD Start: 10-15-2015 LOTEMAX 0.5 % SUSP as directed LOTEPREDNOL ETABONATE [id number] Matias Best MD METHOTREXATE SODIUM SOLN (20 sources) Folate Analog Metabolic Inhibitor Start: 11-06-2014 METHOTREXATE SODIUM SOLN 75 mg once a week METHOTREXATE SODIUM SOLN Maitas Best MD Start: 01-19-2014 End: 01-26-2014 METHOTREXATE SODIUM SOLN as directed METHOTREXATE SODIUM SOLN Matias Best MD Start: 01-19-2014 METHOTREXATE S ODIUM SOLN as directed METHOTREXATE SODIUM SOLN Michelle Ray Raheel RN Start: 11-29-2013 Methotrexate S odium (Pf) 25 MG/ML solution Active 75 mg IM November 29, 2013 12:00am Start: 11-29-2013 Methotrexate S odium (Pf) Active 75 MG IM November 29, 2013 12:00am methotrexate 10 mg tablet Take 75 mg by mouth every Thursday. 0 Active Comment on above: Take 75 mg by mouth every Thursday. metoclopramide 5 mg oral tablet (3 sources) Dopamine-2 Receptor Antagonist Start: 03-08-20 End: 03-29-20 take 1 tablet by mouth three times daily Metoclopramide Hcl 5 mg tablet Discontinued 5 mg PO THREE TIMES A DAY 63 March 08, 2024 12:00am March 28, 2024 1:00am March 29, 2024 1:09am Multivitamin tablet (3 sources) Start: 11-11-19 End: 09-17-19 Multivitamin tablet Discontinued 2 {tbl} PO DAILY November 10, 2018 12:00am September 16, 2021 9:36am POLYVINYL ALCOHOL-POVIDONE (4 sources) Start: 10-15-19 16 REFRESH 1.4-0.6 % SOLN as directed POLYVINYL ALCOHOL-POVIDONE [id number] Matias Best MD Start: 10-15-2015 REFRESH 1.4-0. 6 % SOLN as directed POLYVINYL ALCOHOL-POVIDONE [id number] Matias Best MD raNITIdine 150 mg oral tablet (20 sources) Histamine-2 Receptor Antagonist Start: 11-29-2013 End: 11-10-2018 take 1 tablet by mouth twice daily Ranitidine Hcl 150 MG tablet Discontinued 150 mg PO TWICE A DAY November 29, 2013 12:00am November 10, 2018 2:16pm rivaroxaban 10 mg oral tablet (7 sources) Factor Xa Inhibitor Start: 10-14-2022 End: 11-28-2022 take 1 tablet by mouth once daily Rivaroxaban (Xarelto) 10 mg tablet Discontinued 10 mg PO DAILY October 14, 2022 12:00am November 28, 2022 2:20am sertraline 50 mg oral tablet (17 sources) Serotonin Reuptake Inhibitor Start: 09-09-2021 End: 12-18-2021 take 1 tablet by mouth once daily Sertraline 50 mg tablet Discontinued 50 mg PO DAILY September 09, 2021 12:00am December 18, 2021 3:46pm tamsulosin hydrochloride 0.4 mg oral capsule (16 sources) alpha-Adrenergic Sarah Start: 10-02-2022 End: 10-13-2022 take 1 capsule by mouth once daily Tamsulosin 0.4 mg capsule Discontinued 0.4 mg PO DAILY@1730 October 02, 2022 6:52pm October 13, 2022 8:28pm stop if voiding well tiZANidine 2 mg oral tablet (15 sources) Central alpha-2 Adrenergic Agonist Start: 10-02-2022 End: 11-27-2022 take 1 tablet by mouth every eight hours as needed for muscle spasms Tizanidine 2 mg Tablet Discontinued 2 mg PO EVERY 8 HOURS NEEDED as needed for muscle spasm 90 October 13, 2022 12:00am November 27, 2022 11:53pm traZODone hydrochloride 50 mg oral tablet (20 sources) Serotonin Reuptake Inhibitor Start: 01-19-2014 End: 11-06-2014 take 1 tablet by mouth at bedtime TRAZODONE HCL 50 MG TABS One tablet by mouth at bedtime. TRAZODONE HCL [id number] Matias Best MD Start: 11-29-2013 End: 11-10-2018 take 1 tablet by mouth once daily Trazodone 150 MG tablet Discontinued 150 mg PO DAILY November 29, 2013 12:00am November 10, 2018 2:17pm Vitamin B Complex (B Complex-Vitamin B12) tablet (17 sources) Start: 11-10-2018 End: 11-09-2019 take 1 tablet by mouth once daily Vitamin B Complex (B Complex-Vitamin B12) tablet Discontinued 1 TABLET PO DAILY November 10, 2018 2:16pm November 09, 2019 1:07pm Start: 11-10-2018 End: 11-09-2019 Vitamin B Complex (B Complex -Vitamin B12) tablet Discontinued 1 {tbl} PO DAILY November 10, 2018 12:00am November 09, 2019 1:07pm Start: 11-10-2018 End: 11-09-2019 take 1 tablet by mouth once daily Vitamin B Complex (B Complex-Vitamin B12) tablet Discontinued 1 TABLET PO DAILY November 09, 2018 11:00pm November 09, 2019 12:07pm Start: 11-10-2018 End: 11-09-2019 take 1 tablet by mouth once daily Vitamin B Complex (B Complex-Vitamin B12) tablet Discontinued 1 TABLET PO DAILY November 10, 2018 12:00am November 09, 2019 1:07pm zinc sulfate 66 mg oral tablet (5 sources) Start: 03-17-2023 End: 03-07-2024 take 1 tablet by mouth once daily Zinc Sulfate (Zinc-15) 66 mg tablet Discontinued 66 mg PO DAILY March 17, 2023 1:00am March 07, 2024 8:44am Problems Active Problems Problem Classification Problem Date Documented Date Episodic/Chronic Abdominal hernia (20 sources) Incisional hernia; Translations: [Incisional hernia without obstruction or gangrene] Episodic Comment on above: EGD 10/09/2022, Dr. Fr villagomez, noted diverticulum, large hiatal hernia, and patient had her throat stretched during EGD. Benign neoplasm of uterus (20 sources) Uterine leiomyoma; Translations: [Leiomyoma of uterus, unspecified] 05-27-2022 Episodic Cardiac dysrhythmias (20 sources) Ventricular premature beats; Translations: [Sinus tachycardia] Onset: 01-27-20 14 01-26-2014 Chronic Diseases of white blood cells (11 sources) Leukocytosis; Translations: [Elevated white blood cell count, unspecified] 09-30-2022 Chronic Disorders of teeth and jaw (1 source) Temporomandibular joint crepitus 01-30-2023 Episodic E Codes: Fall (14 sources) Fall; Translations: [Unspecified fall, initial encounter] 09-29-2022 Episodic Esophageal disorders (13 sources) Gastroesophageal reflux disease with hiatal hernia; Translations: [Gastroesophageal reflux disease] 12-20-2021 Chronic Esophageal disorders (9 sources) Zenker's diverticulum; Translations: [Diverticulum of esophagus, acquired] Onset: 10-22-19 23 03-17-2023 Episodic Comment on above: EGD 10/09/2022, Dr. Fr villagomez, noted diverticulum, large hiatal hernia, and patient had her throat stretched during EGD. Fever of unknown origin (19 sources) Fever with chills; Translations: [Fever, unspecified] 11-27-2022 Episodic Fluid and electrolyte disorders (7 sources) Dehydration; Translations: [Dehydration] 11-27-2022 Episodic Fracture of neck of femur (hip) (10 sources) Closed fracture of hip; Translations: [Fracture of unspecified part of neck of right femur, initial encounter for closed fracture] 09-29-2022 Episodic Genitourinary symptoms and ill-defined conditions (18 sources) Dysuria; Translations: [Dysuria] 09-30-2022 Episodic Heart valve disorders (20 sources) Mitral valve prolapse; Translations: [Nonrheumatic mitral (valve) prolapse] Onset: 01-27-20 14 01-26-2014 Chronic Malaise and fatigue (20 sources) Fatigue; Translations: [Asthenia] Onset: 10-21-19 17 10-20-2016 Episodic Noninfectious gastroenteritis (11 sources) Chronic diarrhea; Translations: [Noninfective gastroenteritis and colitis, unspecified] 10-02-2022 Episodic Open wounds of head; neck; and trunk (3 sources) Facial laceration ; Translations: [Laceration without foreign body of other part of head, initial encounter] 10-21-2023 Episodic Osteoarthritis (12 sources) Osteoarthritis; Translations: [Unspecified osteoarthritis, unspecified site] Onset: 07-08-19 24 10-02-2022 Chronic Osteoporosis (13 sources) Osteoporosis; Translations: [Age-related osteoporosis without current pathological fracture] 03-21-2022 Chronic Other connective tissue disease (8 sources) History of repair of hip joint; Translations: [Presence of right artificial hip joint] 10-02-2022 Chronic Other connective tissue disease (3 sources) Presence of right artificial hip joint; Translations: [Hip joint replacement] 10-02-2022 Chronic Other connective tissue disease (1 source) Pain of right lower leg 10-12-2023 Episodic Other connective tissue disease (2 sources) Calcium deposit in bursa, unspecified site; Translations: [Calcium deposit in bursa, unspecified site] Onset: 03-21-20 Episodic Other eye disorders (3 sources) Bilateral vitreous floaters; Translations: [Other vitreous opacities, bilateral] Onset: 05-26-19 16 08-20-2023 Chronic Other eye disorders (1 source) Fourth nerve palsy 11-06-2023 Episodic Other female genital disorders (17 sources) Mass of right ovary; Translations: [Other noninflammatory disorders of ovary, fallopian tube and broad ligament] 03-14-2021 Episodic Other fractures (1 source) Fracture of bone of hip region 10-31-2022 Episodic Other fractures (1 source) Wedge compression fracture of unspecified thoracic vertebra, initial encounter for closed fracture; Translations: [Wedge compression fracture of unspecified thoracic vertebra, initial encounter for closed fracture] Onset: 07-21-19 Episodic Other gastrointestinal disorders (10 sources) Dysphagia; Translations: [Dysphagia, unspecified] 12-18-2021 Episodic Other gastrointestinal disorders (8 sources) Diarrhea; Translations: [Diarrhea, unspecified] 09-30-2022 Episodic Other gastrointestinal disorders (3 sources) Diarrhea, unspecified; Translations: [Diarrhea] 10-02-2022 Episodic Other injuries and conditions due to external causes (8 sources) Closed injury of head; Translations: [Unspecified injury of head, initial encounter] 09-29-2022 Episodic Other injuries and conditions due to external causes (1 source) Unspecified injury of head, initial encounter; Translations: [Head injury, unspecified] 10-02-2022 Episodic Other injuries and conditions due to external causes (5 sources) H/O: hip fracture; Translations: [Personal history of (healed) traumatic fracture] 06-30-2023 Episodic Other liver diseases (2 sources) Elevated liver enzymes level 03-21-2022 Episodic Other lower respiratory disease (1 source) Rib pain 10-19-2023 Episodic Other nervous system disorders (2 sources) Other abnormalities of gait and mobility; Translations: [Other abnormalities of gait and mobility] Onset: 07-06-19 Episodic Other non-traumatic joint disorders (17 sources) Joint pain; Translations: [Pain in unspecified joint] 03-13-2020 Episodic Other non-traumatic joint disorders (5 sources) Hip pain; Translations: [Pain in right hip] 06-30-2023 Episodic Other non-traumatic joint disorders (2 sources) Pain in right hip; Translations: [Pain in right hip] Onset: 07-06-19 Episodic Other nutritional; endocrine; and metabolic disorders (8 sources) Hyperbilirubinemia; Translations: [Other disorders of bilirubin metabolism] 09-30-2022 Chronic Other nutritional; endocrine; and metabolic disorders (16 sources) Hypophosphatemia; Translations: [Other disorders of phosphorus metabolism] 09-30-2022 Chronic Other nutritional; endocrine; and metabolic disorders (3 sources) Other disorders of bilirubin metabolism; Translations: [Jaundice, unspecified, not of ] 10-02-2022 Chronic Other nutritional; endocrine; and metabolic disorders (6 sources) Other disorders of phosphorus metabolism; Translations: [Disorders of phosphorus metabolism] 10-02-2022 Chronic Other nutritional; endocrine; and metabolic disorders (2 sources) Abnormal weight loss; Translations: [Abnormal weight loss] Onset: 05-19-19 Episodic Other screening for suspected conditions (not mental disorders or infectious disease) (1 source) Encounter for screening mammogram for malignant neoplasm of breast; Translations: [Encounter for screening mammogram for malignant neoplasm of breast] Onset: 10-08-19 Episodic Ovarian cyst (20 sources) Cyst of ovary; Translations: [Unspecified ovarian cyst, right side] Episodic Comment on above: pathology showed ser ous cystadenoma Residual codes; unclassified (17 sources) History of radiofrequency ablation operation for arrhythmia; Translations: [Other specified postprocedural states] 03-12-2020 Episodic Comment on above: For SVT Residual codes; unclassified (10 sources) Other specified postprocedural states; Translations: [Personal history of surgery to heart and great vessels, presenting hazards to health] Episodic Residual codes; unclassified (15 sources) History of hernia repair; Translations: [Other specified postprocedural states] 10-11-2021 Episodic Rheumatoid arthritis and related disease (20 sources) Flare of rheumatoid arthritis; Translations: [Rheumatoid arthritis, unspecified] Onset: 05-26-1912-18-2021 Chronic Spondylosis; intervertebral disc disorders; other back problems (2 sources) Other spondylosis, cervical region; Translations: [Other spondylosis, lumbosacral region] Onset: 10-22-19 23 Chronic Spondylosis; intervertebral disc disorders; other back problems (20 sources) Chronic low back pain; Translations: [Chronic low back pain] Onset: 09-21-19 25 03-14-2021 Episodic Systemic lupus erythematosus and connective tissue disorders (6 sources) Keratoconjunctivitis sicca; 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] Onset: 10-16-19 16 08-20-2023 Chronic Viral infection (5 sources) Disease caused by 2019-nCoV; Translations: [COVID-19] 12-05-2022 Episodic Past or Other Problems Problem Classification Problem Date Documented Da te Episodic/Chronic Abdominal pain (20 sources) Pain in female pelvis; Translations: [Pelvic and perineal pain] Onset: 4 12-18-2021 Episodic Blindness and vision defects (5 sources) Bilateral regular astigmatism; Translations: [Regular astigmatism, bilateral] Onset: 6 Resolved: 6 08-20-2023 Episodic Cataract (3 sources) Bilateral pseudophakia; Translations: [Presence of intraocular lens] Onset: 6 Resolved: 6 08-20-2023 Chronic Nausea and vomiting (8 sources) Nausea; Translations: [Nausea] Onset: 5 02-02-2024 Episodic Other aftercare (2 sources) Taking high risk medication; Translations: [Other extermination supervisor (current) drug therapy] Onset: 6 05-26-2015 Episodic Other aftercare (5 sources) Other extermination supervisor (current) drug therapy; Translations: [Other extermination supervisor (current) drug therapy] Onset: 3 Episodic Other aftercare (4 sources) termite exterminator (current) use of systemic steroids; Translations: [[facility] (current) use of systemic steroids] Onset: 3 Episodic Other circulatory disease (4 sources) Electrocardiogram abnormal; Translations: [Abnormal electrocardiogram [ECG] [EKG]] Onset: 4 01-19-2014 Episodic Other connective tissue disease (1 source) Fibromyalgia; Translations: [Fibromyalgia] Onset: 4 Episodic Other connective tissue disease (1 source) Pain in right lower leg; Translations: [Pain in right lower leg] Onset: 4 Episodic Other eye disorders (1 source) Tear film insufficiency; Translations: [Dry eye syndrome of unspecified lacrimal gland] Onset: 6 Resolved: 6 10-16-2015 Episodic Other gastrointestinal disorders (4 sources) Dysphagia, unspecified; Translations: [Dysphagia, unspecified] Onset: 4 10-02-2022 Episodic Other injuries and conditions due to external causes (1 source) Encounter for examination and observation following other accident; Translations: [Encounter for examination and observation following other accident] Onset: 4 Episodic Other lower respiratory disease (4 sources) Dyspnea; Translations: [Shortness of breath] Onset: 4 01-19-2014 Episodic Residual codes; unclassified (1 source) Body mass index (BMI) 24.0-24.9, adult; Translations: [Body mass index (BMI) 24.0-24.9, adult] Onset: 7 10-20-2016 Episodic Residual codes; unclassified (1 source) Family history of stroke; Translations: [Family history of stroke] 01-26-2014 Episodic Skull and face fractures (8 sources) Fracture of maxilla; Translations: [Fracture of orbit] Onset: 4 10-19-2023 Episodic Unclassified (10 sources) FH: Hypertension; Translations: [Family history of stroke] Onset: 7 01-26-2014 Episodic Results Test Name Value Interpretation Reference Range Facility Breast imaging reportOrdered By: Tanner Clemens on 10-04-2024 Study report [facility] Imaging Services [address] [place], [place] [id number] SCRN MAMM (CAD)W/GABRIELBart LAURA MR#: [id number] Acct: [id number] Name: HUYEN VALERIO I Rep #: [id number] : 1940 F [id number] From: Bret Clemens MD PCP: Milagros Hunter NP-C Status: RE G CLI Study:SCRN MAMM (CAD)W/GABRIEL BOAT Date of Exa m: 10/04/24 Exam# [id number] Ordering Dr: Milagros Hunter NP LEAD PROGRAMMER-C EXAM: SCRN MAMM (CAD)W/GABRIEL BILAT DATE: 10/04/2024 CLINICAL HISTORY: F, Age 84 y/o , SCREENING Grandmother with breast cancer. BREAST CANCER RISK ASSESSMENT: Not assessed. TECHNIQUE: Bilateral screening digital breast tomosynthesis with 2D and 3D images. Computeraided detection. COMPARISON: Prior exam(s) dated September 18, 2023.. FINDINGS: TISSUE DENSITY: The breast tissue is composed of scattered area of fibroglandular density. Bilateral Breast Mammographic Findings: No significant masses, calcifications or other abnormalities are identified. No suspicious masses, areas of developing architectural distortion, or suspicious calcifications. There has been no significant interval change. BI/SCRN MAMM (CAD)W/GABRIEL BILAT IMPRESSION: OVERALL FINAL ASSESSMENT: BIRADS 1 NEGATIVE RECOMMENDATION: Routine annual follow-up in 1 Year A letter with findings and recommendations will be mailed to the patient. Reading Location: [place] [address] CC: LEAD PROGRAMMER-C Milagros Hunter ~ Hydro Operator: Signed [employer] [facility] SCRN MAMM (CAD)W/GABRIEL BILATo n 10-04-2024 SCRN MAMM (CAD)W/GABRIEL BILAT [facility] Imaging Services [address] [place] [address] [id number] SCRN MAMM (CAD)W/GABRIEL BILAT MR#: [id number] Acct: [id number] Name: HUYEN VALERIO I Rep #: [id number] : 1940 F 84 From: Tanner allan MD PCP: YENIFER Barrera Status: REG CLI Study: SCRN MAMM (CAD)W/GABRIEL BILAT Date of Exam: 09/09 12/02 Exam# [id number] Ordering Dr: Milagros Hunter NP LEAD PROGRAMMER-C EXAM: SCRN MAMM (CAD)W/GABRIEL BILAT DATE: 10/04/2024 CLINICAL HISTORY: F, Age 84 y/o , SCREENING Grandmother with breast cancer. BREAST CANCER RISK ASSESSMENT: Not assessed. TECHNIQUE: Bilateral screening digital breast tomosynthesis with 2D and 3D images. Computer aided detection. COMPARISON: Prior exam(s) dated September 18, 2023.. FINDINGS: TISSUE DENSITY: The breast tissue is composed of scattered area of fibroglandular density. Bilateral Breast Mammographic Findings: No significant masses, calcifications or other abnormalities are identified. No suspicious masses, areas of developing architectural distortion, or suspicious calcifications. There has been no significant interval change. BI/SCRN MAMM (CAD)W/GABRIEL BILAT IMPRESSION: OVERALL FINAL ASSESSMENT: BIRADS 1 NEGATIVE RECOMMENDATION: Routine annual follow-up in 1 Year A letter with findings and recommendations will be mailed to the patient. Reading Location: [place] [address] CC: LEAD PROGRAMMER-C Milagros Hunter Hydro Operator: Signed Normal [facility] Cerv Spine 2 or 3 Viewson Cerv Spine 2 or 3 Views [facility] Imaging Services [address] [place] [address] [id number] Cerv Spine 2 or 3 Views MR#: [id number] Acct: [id number] Name: HUYEN VALERIO I Rep #: [id number] : 1940 F 84 From: Rian Manning MD PCP: Milagros Hunter LEAD PROGRAMMER-C Status: REG CLI Study: Cerv Spine 2 or 3 Views Date of Exam: 09/15/24 Exam# [id number] Ordering Dr: Mylene Hoskins MD EXAM: XR Cervical Spine, 2 or 3 Views CLINICAL INDICATION: NECK PAIN TECHNIQUE: Frontal and lateral views of the cervical spine. COMPARISON: XR Cervical Spine dated 10/18/2021 FINDINGS: VERTEBRAE: Degenerative facet arthropathy throughout the cervical spine. Normal alignment. No acute fracture. DISC SPACES: Degenerative disc disease throughout the cervical spine. SOFT TISSUES: Unremarkable. RAD/Cerv Spine 2 or 3 Views IMPRESSION: 1. No acute fracture. 2. If symptoms persist, further evaluation with MRI is recommended. 3. Degenerative changes of the cervical spine as described. Reading Location: [facility] CC: YENIFER Hunter; Dr. Mylene Hoskins MD Hydro Operator: Signed Normal [facility] CBC (INCLUDES DIFF/PLT)on Basophils (Bld) [#/Vol] 0.061 10*3/uL Normal 0-200 [facility] Comment on above: Performed By: #### 6 399, 02846 #### [facility] of [address], [address] [place] [address] Supervisor [employer] Plant: Feliciano Corley MD Basophils/100 WBC (Bld) 1.1 % Normal [facility] Comment on above: Performed By: #### 6 399, 58799 #### [facility] of [place] [address] Supervisor [employer]: Feliciano Corley MD Eosinophils (Bld) [#/Vol] 0.072 10*3/uL Normal 15-500 [facility] Comment on above: Performed By: #### 6 399, 61561 #### [facility] of [address], [address] [place] [address] Supervisor [employer]: Feliciano Corley MD Eosinophils/100 WBC (Bld) 1.3 % Normal [facility] Comment on above: Performed By: #### 6 399, 60881 #### [facility] of [place] [address] Supervisor [employer]: Feliciano Corley MD Erythrocyte distribution width (RBC) [Ratio] 13.8 % Normal 11.0-15.0 [facility] Comment on above: Performed By: #### 6 399, 96093 #### [facility] of [place] [address] Supervisor [employer]: Feliciano Corley MD Hematocrit (Bld) [Volume fraction] 39.0 % Normal 35.0-45.0 [facility] Comment on above: Performed By: #### 6 399, 27028 #### [facility] of [place] [address] Supervisor [employer]: Feliciano Corley MD Hemoglobin (Bld) [Mass/Vol] 12.7 g/dL Normal 11.7-15.5 [facility] Comment on above: Performed By: #### 6 399, 72717 #### [facility] of [place] [address] Supervisor [employer]: Feliciano Corley MD Lymphocytes (Bld) [#/Vol] 0.974 10*3/uL Normal 850-3900 [facility] Comment on above: Performed By: #### 6 399, 88552 #### [facility] of [place] [address] Supervisor [employer]: Feliciano Corley MD Lymphocytes/100 WBC (Bld) 17.7 % Normal [facility] Comment on above: Performed By: #### 6 399, 80776 #### [facility] [place] [address] Supervisor [employer]ulf[employer] Plant: Feliciano Corley MD MCH (RBC) [Entitic mass] 31.1 pg Normal 27.0-33.0 [facility] Comment on above: Performed By: #### 6 399, 74772 #### [facility] of [place] [address] Supervisor [employer]: Feliciano Corley MD MCHC (RBC) [Mass/Vol] 32.6 g/dL Normal 32.0-36.[address] [facility] Comment on above: Result Comment: For adults, a slight decrease in the calculated MCHC value (in the range of 30 to 32 g/dL) is most likely not clinically significant; however, it should be interpreted with caution in correlation with other red cell parameters and the patient's clinical condition. Performed By: #### 6 399, 28048 #### [facility] of [place] [address] Supervisor [employer]: Feliciano Corley MD MCV (RBC) [Entitic vol] 95.6 fL Normal 80.0-100.0 [facility] Comment on above: Performed By: #### 6 399, 01356 #### [facility] of [place] [address] Supervisor [employer] Plant: Feliciano Corley MD Monocytes (Bld) [#/Vol] 0.6 10*3/uL Normal 200-950 [facility] Comment on above: Performed By: #### 6 399, 96465 #### [facility] of [place] [address] Supervisor [employer]: Feliciano Corley MD Monocytes/100 WBC (Bld) 10.9 % Normal [facility] Comment on above: Performed By: #### 6 399, 21210 #### [facility] of [place] [address] Supervisor [employer] Plant: Feliciano Corley MD Neutrophils (Bld) [#/Vol] 3.795 10*3/uL Normal 7655-2423 [facility] Comment on above: Performed By: #### 6 399, 61988 #### [facility] of [place] [address] Supervisor [employer]: Feliciano Corley MD Neutrophils/100 WBC (Bld) 69 % Normal [facility] Comment on above: Performed By: #### 6 399, 74897 #### [facility] of [place] [address] Supervisor [employer] Plant: Feliciano Corley MD Platelet mean volume (Bld) [Entitic vol] 12.3 fL Normal 7.5-12.5 [facility] Comment on above: Performed By: #### 6 399, 78795 #### [facility] of [place] [address] Supervisor [employer] Plant: Feliciano Corley MD Platelets (Bld) [#/Vol] 327 10*3/uL Normal 140-400 [facility] Comment on above: Performed By: #### 6 399, 76115 #### [facility] of [place] [address] Supervisor [employer]ulf[employer]: Feliciano Corley MD RBC (Bld) [#/Vol] 4.08 10*6/uL Normal 3.80-5.10 [facility] Comment on above: Performed By: #### 6 399, 07780 #### [facility] of [place] [address] Supervisor [employer]ulf[employer] Plant: Feliciano Corley MD WBC (Bld) [#/Vol] 5.5 10*3/uL Normal 3.8-10.8 [facility] Comment on above: Performed By: #### 6 399, 46515 #### [facility] of [place] [address] Supervisor Sulfuric Acid Plant: Feliciano Corley MD [facility] 08-20-2024 Albumin [Mass/Vol] 4.5 g/dL Normal 3.6-5.1 [facility] Comment on above: Performed By: #### 6 399, 89556 #### [facility] of [place] [address] Supervisor [employer]ulf[employer] Plant: Feliciano Corley MD Albumin/Globulin [Mass ratio] 2.4 {ratio} Normal 1.0-2.5 [facility] Comment on above: Performed By: #### 6 399, 25796 #### [facility] [place] [address] Supervisor Sulfuric [employer] Plant: Feliciano Corley MD ALP [Catalytic activity/Vol] 76 U/L Normal 37-153 [facility] Comment on above: Performed By: #### 6 399, 31123 #### [facility] of [place] [address] Supervisor Sulfuric [employer] Plant: Feliciano Corley MD ALT [Catalytic activity/Vol] 13 U/L Normal 6-29 [facility] Comment on above: Performed By: #### 6 399, 41732 #### [facility] of [place] [address] Supervisor [employer]ulfuric [employer] Plant: Feliciano Corley MD AST [Catalytic activity/Vol] 36 U/L High 10-35 [facility] Comment on above: Performed By: #### 6 399, 33989 #### [facility] of [place] [address] [place] [address] Supervisor Sulfuric Acid Plant: Feliciano Corley MD Bilirubin [Mass/Vol] 0.7 mg/dL Normal 0.2-1.2 [facility] Comment on above: Performed By: #### 6 399, 41769 #### [facility] [place] [address] Supervisor Sulfuric [employer] Plant: Feliciano Corley MD BUN/CREATININE RATIO SEE NOTE: Normal 6-22 [facility] Comment on above: Result Comment: Not Reported: BUN and Creatinine are within reference range. Performed By: #### 6 399, 84215 #### [facility] [place] [address] Supervisor Sulfuric [employer] Plant: Feliciano Corley MD Calcium [Mass/Vol] 9.4 mg/dL Normal 8.6-10.4 [facility] Comment on above: Performed By: #### 6 399, 37289 #### [facility] [place] [address] Supervisor Sulfuric [employer] Plant: Feliciano Corley MD Chloride [Moles/Vol] 104 mmol/L Normal 98-110 [facility] Comment on above: Performed By: #### 6 399, 60512 #### [facility] [place] [address] Supervisor [employer]ulf[employer] Plant: Feliciano Corley MD CO2 [Moles/Vol] 29 mmol/L Normal 20-32 [facility] Comment on above: Performed By: #### 6 399, 71614 #### [facility] [place] [address] Supervisor Sulfuric [employer] Plant: Feliciano Corley MD Creatinine [Mass/Vol] 0.83 mg/dL Normal 0.60-0.[address] [facility] Comment on above: Performed By: #### 6 399, 47854 #### [facility] [place] [address] Supervisor Sulfuric Acid Plant: Feliciano Corley MD GFR/1.73 sq M.predicted among non-blacks MDRD (S/P/Bld) [Vol rate/Area] 69 mL/min/{1.73_m2} Normal > OR = 60 [facility] Comment on above: Performed By: #### 6 399, 43754 #### [facility] [place] [address] Supervisor Sulfuric Acid Plant: Feliciano Corley MD Globulin (S) [Mass/Vol] 1.9 g/dL Normal 1.9-3.7 [facility] Comment on above: Performed By: #### 6 399, 42968 #### [facility] [place] [address] Supervisor Sulfuric Acid Plant: Feliciano Corley MD Glucose [Mass/Vol] 82 mg/dL Normal 65-99 [facility] Comment on above: Result Comment: Fasting reference interval Performed By: #### 6 399, 43339 #### [facility] [place] [address] Supervisor Sulfuric Acid Plant: Feliciano Corley MD Potassium [Moles/Vol] 4.6 mmol/L Normal 3.5-5.[address] [facility] [address] [facility] Comment on above: Performed By: #### 6 399, 49305 #### [facility] [place] [address] Supervisor Sulfuric Acid Plant: Feliciano Corley MD Protein [Mass/Vol] 6.4 g/dL Normal 6.1-8.1 [facility] Comment on above: Performed By: #### 6 399, 59281 #### [facility] [place] [address] Supervisor Sulfuric [employer] Plant: Feliciano Corley MD Sodium [Moles/Vol] 141 mmol/L Normal 135-146 [facility] Comment on above: Performed By: #### 6 399, 01944 #### [facility] [place] [address] Supervisor Sulfuric [employer] Plant: Feliciano Corley MD Urea nitrogen [Mass/Vol] 15 mg/dL Normal 7-25 [facility] Comment on above: Performed By: #### 6 399, 60952 #### [facility] [address], [address] [place] [address] Supervisor Sulfuric Acid Plant: Feliciano Corley MD Thoracic Spine 3 Viewson Thoracic Spine 3 Views [facility] Imaging Services [address] [place] [address] Thoracic Spine 3 Views MR#: [id number] Acct: [id number] Name: HUYEN VALERIO I Rep #: [id number] : 1940 F 83 From: Tanner allan MD PCP: Milagros Hunter, LEAD PROGRAMMER-C Status: REG CLI Study: Thoracic Spine 3 Views Date of Exam: 07/05/24 Exam# [id number] Ordering Dr: Mylene Hoskins MD PROCEDURE: THORACIC SPINE 3 VIEWS REASON FOR EXAM: History of compression fracture. TECHNIQUE: AP and lateral views of the thoracic spine were obtained. COMPARISON: None. FINDINGS: Almost complete collapse of the T4 and T5 vertebrae. Prior vertebroplasty of the T4 vertebrae. Loss of height of the superior endplate of the T6 vertebrae. Mild multilevel disc space narrowing. Demineralization of the thoracic vertebrae. Increased kyphosis. Reading Location: [id number] CC: LEAD PROGRAMMER-C Milagros Hunter; Dr. Mylene Hoskins MD Hydro Operator: Signed Normal [facility] Gastroenterology Visit Repor ton 06-28-2024 Gastroenterology Visit Report [facility] [address] [place] [address] OFFICE VISIT Date of Service: 06/28/24 MR#: [id number] Acct: [id number] Name: HUYEN VALERIO I I Rep #: [id number] : 1940 Provider: LESLIE Aguilar Age/Sex: 83/F Location: [facility] Status: Signed Intake Vital Signs 03/15/24 10:32 Height 5 ft 1 in Weight: 115 lb BMI 21.7 BP 120/78 Blood Pressure Location Lt brachial Position Sitting Respiration 16 Pulse 79 Pulse Source NIBP Intake Visit Reasons: Test Result Chief Complaint: heartburn Accompanied by: Daughter Allergies amoxicillin trihydrate (From Trimox) Allergy (Intermediate, Verified 03/29/24 13:59) Rash Penicillins Allergy (Verified 03/29/24 13:59) Swelling Have you fallen in the past year?: Yes Nurse's Note: OV Pt here for f/u. PFSH Medical History History of fall Zenkers diverticulum Back pain Kidney stones Irregular heart beat Closed head injury Fracture of hip, right, closed Wears glasses Wears contact lenses Post-menopausal History of steroid therapy Arthritis Rheumatoid arthritis Easy bruising Injury of back Back pain History of hiatal hernia Gastric reflux Sleep apnea History of pain when walking Normal stress echocardiogram Cardiology follow-up encounter History of irregular heartbeat MVP (mitral valve prolapse) Premature ventricular contraction Premature atrial contraction Supraventricular tachycardia Surgical History History of Zenker's diverticulum removal History of esophagogastroduodenoscopy (EGD) History of right hip hemiarthroplasty History of removal of ovarian cyst History of incisional hernia repair Hx of kyphoplasty History of cardiac radiofrequency ablation ( 2000) Hx of cataract surgery Hx of hernia repair H/O total knee replacement Family History Father CAD (coronary artery disease) CVA (cerebral vascular accident) Hypertension Heart disease Brother CAD (coronary artery disease) Mother Osteoporosis Social History household members: none Smoking Status: Never smoker alcohol intake: never substance use type: does not use what type of physical activity do you participate in: none HPI HPI Chief Complaint: heartburn Details: HUYEN VALERIO, is a 83 F who presents to the office today for f/u. BGI established 02.02.24 with PMHx of Zenker diverticulum in March 2023 which improved her dysphagia. Nausea for years. Endorses 30 lbs weight loss over the past year. EGD 10.09.22 Zenker's diverticulum. - Benign-appearing esophageal stenosis. Dilated. - Large hiatal hernia. - No gross lesions in the first portion of the duodenum. - No specimens collected. 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 Biopsied. - A fundoplication was found. The wrap appears loose. There was partial dehiscence of previous fundoplication - A large amount of food (residue) in the stomach. - No gross lesions in the first portion of the duodenum. Office visit 03.29.24 with continues nausea and abd fullness. Started on Reglan but discontinued it. GES ordered. Pantoprazole BID GES 04.19.24 normal 32 minutes OV 2.18.25 Pt with continues issues with heartburn mostly in the night. She continues with pantoprazole 40 mg BID. She does feel this has improved some of her symptoms. ROS Const Constitutional: Positive for fatigue; No fever(s) or weight change ENT ENT: No difficulty swallowing Gastro GI: Positive for abdominal pain and heartburn; No belching, bloating, change in bowel habits, change in stool character, coffee ground emesis, constipation, cramping, diarrhea, difficulty swallowing, feeling full early, excessive flatus, incontinent of stools, Vomiting blood/hematemesis, Blood in stool, loose stools, Black,tarry stools, nausea/dyspepsia, pain with swallowing, vomiting or other Musc Musculoskeletal: Positive for abnormal gait and joint pain Skin Skin: No yellowing of the eye or itchy eyes Neuro Neurology: Positive for abnormal gait and Increased tone in limbs Psych Psychiatric: No anxiety and No depression Endo Endocrine: Positive for fatigue; No weight change Aller/Imm Allergy/Immunologic: No itchy eyes Luis Daniel/Lymp Hematologic/Lymphatic: Positive for easy bruising; No easy bleeding Exam Const General: cooperative and comfortable Nutritional Appearance: average body habitus and well nourished [facility] Head: normal to inspection Ears: hearing grossly normal bilaterally Nose: external nose normal Face and sinus: normal f (more content not included)... Normal [facility] CBC W Auto Differential pane l (Bld)on 05-23-2024 Basophils (Bld) [#/Vol] 0.08 x10*3/uL Normal 0.00-0.10 [facility] Comment on above: Performed By: #### 5 7021-8 #### MEMBRENO KARRIE ([id number]) [facility]) [address] [place] [address] Basophils/100 WBC (Bld) 1.1 % Normal 0.0-2.0 [facility] Comment on above: Performed By: #### 5 7021-8 #### HASEEB YOON ([id number]) [facility] ([facility]) [address] [place] [address] 54670 Eosinophils (Bld) [#/Vol] 0.09 x10*3/uL Normal 0.00-0.40 [facility] Comment on above: Performed By: #### 7021-8 #### HASEEB YOON ([id number]) [facility] ([facility]) [address] [place] [address] 69198 Eosinophils/100 WBC (Bld) 1.3 % Normal 0.0-6.0 [facility] Comment on above: Performed By: #### 7021-8 #### HASEEB YOON ([id number]) [facility] ([facility]) [address] [place] [address] 90010 Erythrocyte distribution width (RBC) [Ratio] 15.4 % High 11.5-14.5 [facility] Comment on above: Performed By: #### 7021-8 #### HASEEB YOON ([id number]) [facility] ([facility]) [address] [place] [address] 94709 Hematocrit (Bld) [Volume fraction] 44.3 % Normal 36.0-46.0 [facility] Comment on above: Performed By: #### 5 7021-8 #### HASEEB YOON ([id number]) [facility] ([facility]) [address] [place] [address] 50345 Hemoglobin (Bld) [Mass/Vol] 13.3 g/dL Normal 12.0-16.0 [facility] Comment on above: Performed By: #### 5 7021-8 #### HASEEB YOON ([id number]) [facility] ([facility]) [address] [place] [address] 46121 Immature granulocytes (Bld) [#/Vol] 0.02 x10*3/uL Normal 0.00-0.50 [facility] Comment on above: Performed By: #### 5 7021-8 #### HASEEB YOON ([id number]) [facility]) [address] [place] [address] 10077 Immature granulocytes/100 WBC (Bld) 0.3 % Normal 0.0-0.9 [facility] Comment on above: Result Comment: Paty ture Granulocyte Count (IG) includes promyelocytes, myelocytes and metamyelocytes but does not include bands. Percent differential counts (%) should be interpreted in the context of the absolute cell counts (cells/UL). Performed By: #### 5 7021-8 #### HASEEB YOON ([id number]) [facility]) [address] [place] [address] 76224 Lymphocytes (Bld) [#/Vol] 1.05 x10*3/uL Normal 0.80-3.00 [facility] Comment on above: Performed By: #### 5 7021-8 #### HASEEB YOON ([id number]) [facility]) [address] [place] [address] 79272 Lymphocytes/100 WBC (Bld) 14.8 % Normal 13.0-44.0 [facility] Comment on above: Performed By: #### 5 7021-8 #### HASEEB YOON ([id number]) [facility]) [address] [place] [address] 18288 MCH (RBC) [Entitic mass] 30.4 pg Normal 26.0-34.0 [facility] Comment on above: Performed By: #### 5 7021-8 #### HASEEB YOON ([id number]) [facility]) [address] [place] [address] 41358 MCHC (RBC) [Mass/Vol] 30.0 g/dL Low 32.0-36.0 [facility] Comment on above: Performed By: #### 5 7021-8 #### HASEEB YOON ([id number]) [facility]) [address] [place] [address] 87165 MCV (RBC) [Entitic vol] 101 fL High 80-100 [facility] Comment on above: Performed By: #### 5 7021-8 #### HASEEB YOON ([id number]) [facility]) [address] [place] [address] 96175 Monocytes (Bld) [#/Vol] 0.87 x10*3/uL High 0.05-0.80 [facility] Comment on above: Performed By: #### 5 7021-8 #### HASEEB YOON ([id number]) [facility]) [address] [place] [address] 24273 Monocytes/100 WBC (Bld) 12.3 % Normal 2.0-10.0 [facility] Comment on above: Performed By: #### 5 7021-8 #### HASEEB YOON ([id number]) [facility]) [address] [place] [address] 72996 Neutrophils (Bld) [#/Vol] 4.98 x10*3/uL Normal 1.60-5.50 [facility] Comment on above: Result Comment: Perc ent differential counts (%) should be interpreted in the context of the absolute cell counts (cells/uL). Performed By: #### 5 7021-8 #### HASEEB YOON ([id number]) [facility]) [address] [place] [address] 30677 Neutrophils/100 WBC (Bld) 70.2 % Normal 40.0-80.0 [facility] Comment on above: Performed By: #### 5 7021-8 #### HASEEB YOON ([id number]) [facility]) [address] [place] [address] 68128 Nucleated RBC/100 WBC (Bld) [Ratio] 0.0 /100 WBCs Normal 0.0-0.0 [facility] Comment on above: Performed By: #### 5 7021-8 #### HASEEB YOON ([id number]) [facility]) [address] [place] [address] 80784 Platelets (Bld) [#/Vol] 357 x10*3/uL Normal 150-450 [facility] Comment on above: Performed By: #### 5 7021-8 #### HASEEB YOON ([id number]) [facility]) [address] [place] [address] 90225 RBC (Bld) [#/Vol] 4.38 x10*6/uL Normal 4.00-5.20 [facility] Comment on above: Performed By: #### 5 7021-8 #### HASEEB YOON ([id number]) [facility]) [address] [place] [address] 91577 WBC (Bld) [#/Vol] 7.1 x10*3/uL Normal 4.4-11.3 [facility] Comment on above: Performed By: #### 5 7021-8 #### HASEEB YOON ([id number]) [facility]) [address] [place] [address] 03188 Comprehensive metabolic 2000 panelon 05-23-2024 Albumin BCP dye [Mass/Vol] 4.2 g/dL Normal 3.4-5.0 [facility] Comment on above: Performed By: #### 2 4323-8 #### HASEEB YOON ([id number]) [facility]) [address] [place] [address] 03559 ALP [Catalytic activity/Vol] 76 U/L Normal 33-136 [facility] Comment on above: Performed By: #### 2 4323-8 #### HASEEB YOON ([id number]) [facility]) [address] [place] [address] 84563 ALT With P-5'-P [Catalytic activity/Vol] 10 U/L Normal 7-45 [facility] Comment on above: Result Comment: Bev ents treated with Sulfasalazine may generate falsely decreased results for ALT. Performed By: #### 2 4323-8 #### HASEEB YOON ([id number]) [facility]) [address] [place] [address] 91836 Anion gap [Moles/Vol] 8 mmol/L Low 10-20 [facility] Comment on above: Performed By: #### 2 4323-8 #### HASEEB YOON ([id number]) [facility] ([facility]) [address] [place] [address] AST With P-5'-P [Catalytic activity/Vol] 31 U/L Normal 9-39 [facility] Comment on above: Performed By: #### 2 432-8 #### HASEEB YOON ([id number]) [facility] ([facility]) [address] [place] [address] Bilirubin [Mass/Vol] 0.7 mg/dL Normal 0.0-1.2 [facility] Comment on above: Performed By: #### 2 4322-8 #### HASEEB YOON ([id number]) [facility] ([facility]) [address] [place] [address] 15971 Calcium [Mass/Vol] 9.8 mg/dL Normal 8.6-10.3 [facility] Comment on above: Performed By: #### 2 4322-8 #### HASEEB YOON ([id number]) [facility] ([facility]) [address] [place] [address] Chloride [Moles/Vol] 105 mmol/L Normal 98-107 [facility] Comment on above: Performed By: #### 2 4322-8 #### HASEEB YOON ([id number]) [facility] ([facility]) [address] [place] [address] CO2 [Moles/Vol] 33 mmol/L High 21-32 [facility] Comment on above: Performed By: #### 2 4322-8 #### HASEEB YOON ([id number]) [facility] ([facility]) [address] [place] [address] Creatinine [Mass/Vol] 0.79 mg/dL Normal 0.50-1.05 [facility] Comment on above: Performed By: #### 2 4322-8 #### HASEEB YOON ([id number]) [facility] ([facility]) [address] [place] [address] Glomerular filtration rate/1.73 sq M.predicted 73 mL/min/1.73m*2 Normal >60 [facility] Comment on above: Result Comment: Calc ulations of estimated GFR are performed using the 2020 CKD-EPI Study Refit equation without the race variable for the IDMS-Traceable creatinine methods. https://jasn.asnjournals.org/content//ASN.067920 0799 Performed By: #### 2 4323-8 #### HASEEB YOON ([id number]) [facility] ([facility]) [facility] [place] [address] Glucose [Mass/Vol] 104 mg/dL High 74-99 [facility] Comment on above: Performed By: #### 2 4323-8 #### HASEEB YOON ([id number]) [facility] ([facility]) [address] [place] [address] 07204 Potassium [Moles/Vol] 4.2 mmol/L Normal 3.5-5.3 [facility] Comment on above: Performed By: #### 2 4323-8 #### HASEEB YOON ([id number]) [facility] ([facility]) [address] [place] [address] 80039 Protein [Mass/Vol] 6.1 g/dL Low 6.4-8.2 [facility] Comment on above: Performed By: #### 2 4323-8 #### HASEEB YOON ([id number]) [facility] ([facility]) [address] [place] [address] 15249 Sodium [Moles/Vol] 142 mmol/L Normal 136-145 [facility] Comment on above: Performed By: #### 2 4323-8 #### HASEEB YOON ([id number]) [facility] ([facility]) [address] [place] [address] 13417 Urea nitrogen [Mass/Vol] 15 mg/dL Normal 6-23 [facility] Comment on above: Performed By: #### 2 4323-8 #### HASEEB YOON ([id number]) [facility] ([facility]) [address] [place] [address] 92299 Gastric Emptying Study Gastric Emptying Study [facility] Imaging Services [address] [place] [address] Gastric Emptying Study MR#: [id number] Acct: [id number] Name: HUYEN VALERIO I Rep #: [id number] : 1940 F 83 From: Marisol Arriaga PCP: Milagros Hunter, LEAD PROGRAMMER-C Status: REG CLI Study: Gastric Emptying Study Date of Exam: 04/19/24 Exam# [id number] Ordering Dr: Leilani Gonzales [id number] CLINICAL: 83-year-old female with history of chronic nausea. SEMI-SOLID PHASE 99m Tc SULFUR COLLOID GASTRIC EMPTYING STUDY COMPARISON: None available FINDINGS: The patient was administered 1.0 mCi of 99m Tc sulfur colloid mixed with oatmeal and consumed per os. Image acquisitions in the anterior-posterior projections were obtained for 60 minutes. There is prompt visualization of the stomach. There is no gastroesophageal reflux identified. The T ? linear fit was calculated to be 32.58 minutes, (Normal: 12-56 minutes). NM/Gastric Emptying Study IMPRESSION: 1. NORMAL 99m Tc sulfur colloid semi-solid phase (oatmeal) gastric emptying imaging examination. A. There is normal and preserved semi-solid phase gastric emptying compared to normal controls. (Yane garcia al, J Nucl Med Tech 38: 186, 2010). Electronically Signed: Marisol Hernandez DO at 11:35 EST , CC: LEAD PROGRAMMER-C Milagros Hunter; LESLIE Aguilar Hydro Operator: Signed Normal [facility] Gastroenterology Visit Repor ton 03-29-2024 Gastroenterology Visit Report [facility] [address] [place] [address] OFFICE VISIT Date of Service: 03/29/24 MR#: [id number] Acct: [id number] Name: HUYEN VALERIO I Rep #: [id number] : 1940 Provider: LESLIE Aguilar Age/Sex: 83/F Location: [facility] Status: Signed Intake Vital Signs 03/08/24 11:18 03/15/24 10:32 Height 5 ft 1 in 5 ft 1 in Weight: 115 lb BMI 21.7 BP 120/78 Blood Pressure Location Lt brachial Position Sitting Respiration 16 Pulse 79 Pulse Source NIBP Intake Visit Reasons: FOLLOW UP FROM [facility] Chief Complaint: f/u Allergies amoxicillin trihydrate (From Trimox) Allergy (Intermediate, Verified 03/29/24 13:59) Rash Penicillins Allergy (Verified 03/29/24 13:59) Swelling Medications ???Medication ???Instructions ???Recorded ???Confirmed ???Type methotrexate sodium (PF) 25 mg/mL 75 mg IM TH Check with primary 11/29/13 03/29/24 History injection solution doctor prednisone 5 mg tablet 5 mg PO DAILY Check with primary 11/29/13 03/29/24 History doctor alendronate 70 mg tablet (Fosamax) 70 mg PO QWEEK Check with primary 11/10/18 03/29/24 History doctor folic acid 400 mcg tablet 0.8 mg PO DAILY@0800 Supplement 11/10/18 03/29/24 History multivitamin 3 tab PO DAILY Supplement 06/25/21 03/29/24 History tofacitinib 5 mg tablet (Xeljanz) 5 mg PO BID Check with primary 06/25/21 03/29/24 History doctor ascorbic acid (vitamin C) 500 mg 500 mg PO DAILY Supplement 05/27/22 03/29/24 History capsule lansoprazole 30 mg capsule,delayed 30 mg PO DAILY Check with primary 10/02/22 03/29/24 History release (Prevacid) doctor cholecalciferol (vitamin D3) 50 125 mcg PO DAILY Supplement 03/17/23 03/29/24 History mcg (2,000 unit) capsule acetaminophen 500 mg tablet 1,000 mg PO Q8 PRN Pain 03/15/24 03/29/24 History buprenorphine 5 mcg/hour weekly 1 patch transdermal QWEEK 03/15/24 03/29/24 History transdermal patch (Butrans) tramadol 50 mg tablet 50 mg PO BID pain 03/15/24 03/29/24 History pantoprazole 40 mg tablet,delayed 40 mg PO BID #60 tabs 03/29/24 03/29/24 Rx release Have you fallen in the past year?: No Nurse's Note: Pt here to discuss test results. Reports no change in sx. Continues to take Reglan but says she hasn't seen any improvement in sx. [facility] Medical History History of fall Zenkers diverticulum Back pain Kidney stones Irregular heart beat Closed head injury Fracture of hip, right, closed Wears glasses Wears contact lenses Post-menopausal History of steroid therapy Arthritis Rheumatoid arthritis Easy bruising Injury of back Back pain History of hiatal hernia Gastric reflux Sleep apnea History of pain when walking Normal stress echocardiogram Cardiology follow-up encounter History of irregular heartbeat MVP (mitral valve prolapse) Premature ventricular contraction Premature atrial contraction Supraventricular tachycardia Surgical History History of Zenker's diverticulum removal History of esophagogastroduodenoscopy (EGD) History of right hip hemiarthroplasty History of removal of ovarian cyst History of incisional hernia repair Hx of kyphoplasty History of cardiac radiofrequency ablation ( 2000) Hx of cataract surgery Hx of hernia repair H/O total knee replacement Family History Father CAD (coronary artery disease) CVA (cerebral vascular accident) Hypertension Heart disease Brother CAD (coronary artery disease) Mother Osteoporosis Social History household members: none Smoking Status: Never smoker alcohol intake: never substance use type: does not use what type of physical activity do you participate in: none HPI HPI Chief Complaint: f/u Details: HUYEN VALERIO, is a 83 F who presents to the office today for f/u. [facility] established 02.02.24; She has a PMHx of Zenker diverticulum, GERD, RA, MVP, PVCs and osteoporosis. She is here today for persistent nausea and epigastric pain. She had an EGD with Dr. Matthew in October 2022 which showed Zenker diverticulum, hiatal hernia and stenosis. She had repair of the diverticulum in March which helped with her dysphagia a little bit. She has had nausea for years. When she eats she will feel nauseous very quickly but tries hard not to vomit. She does not eat large meals. She has had a 30 lbs weight loss over the past year. The epigastric pain starts in her esophagus and goes up to her jaw. It wakes her up at night sometimes. SHe has been on prescription and OTC mediations for heartburn and nausea and nothing works. EGD 6.. Zenker's diverticul (more content not included)... Normal [facility] CBC W Auto Differential pane l (Bld)on 03-21-2024 Basophils (Bld) [#/Vol] 0.05 x10*3/uL Normal 0.00-0.10 [facility] Comment on above: Performed By: #### 5 7021-8 #### HASEEB YOON ([id number]) [facility] ([facility]) [address] [place] [address] 48042 Basophils/100 WBC (Bld) 0.7 % Normal 0.0-2.0 [facility] Comment on above: Performed By: #### 5 7021-8 #### HASEEB YOON ([id number]) [facility] ([facility]) [address] [place] [address] 87384 Eosinophils (Bld) [#/Vol] 0.11 x10*3/uL Normal 0.00-0.40 [facility] Comment on above: Performed By: #### 5 7021-8 #### HASEEB YOON ([id number]) [facility] ([facility]) [address] [place] [address] 69231 Eosinophils/100 WBC (Bld) 1.5 % Normal 0.0-6.0 [facility] Comment on above: Performed By: #### 5 7021-8 #### HASEEB YOON ([id number]) [facility] ([facility]) [address] [place] [address] 96002 Erythrocyte distribution width (RBC) [Ratio] 16.2 % High 11.5-14.5 [facility] Comment on above: Performed By: #### 5 7021-8 #### HASEEB YOON ([id number]) [facility] ([facility]) [address] [place] [address] 44631 Hematocrit (Bld) [Volume fraction] 39.3 % Normal 36.0-46.0 [facility] Comment on above: Performed By: #### 5 7021-8 #### HASEEB YOON ([id number]) [facility] ([facility]) [address] [place] [address] 13782 Hemoglobin (Bld) [Mass/Vol] 12.1 g/dL Normal 12.0-16.0 [facility] Comment on above: Performed By: #### 5 7021-8 #### HASEEB YOON ([id number]) [facility] ([facility]) [address] [place] [address] 02407 Immature granulocytes (Bld) [#/Vol] 0.06 x10*3/uL Normal 0.00-0.50 [facility] Comment on above: Performed By: #### 5 7021-8 #### HASEEB YOON ([id number]) [facility] ([facility]) [address] [place] [address] 67250 Immature granulocytes/100 WBC (Bld) 0.8 % Normal 0.0-0.9 [facility] Comment on above: Result Comment: Paty ture Granulocyte Count (IG) includes promyelocytes, myelocytes and metamyelocytes but does not include bands. Percent differential counts (%) should be interpreted in the context of the absolute cell counts (cells/UL). Performed By: #### 5 7021-8 #### HASEEB YOON ([id number]) [facility] ([facility]) [address] [place] [address] 93801 Lymphocytes (Bld) [#/Vol] 0.59 x10*3/uL Low 0.80-3.00 [facility] Comment on above: Performed By: #### 5 7021-8 #### HASEEB YOON ([id number]) [facility] ([facility]) [address] [place] [address] 19652 Lymphocytes/100 WBC (Bld) 8.0 % Normal 13.0-44.0 [facility] Comment on above: Performed By: #### 5 7021-8 #### HASEEB YOON ([id number]) [facility] ([facility]) [address] [place] [address] 35229 MCH (RBC) [Entitic mass] 30.9 pg Normal 26.0-34.0 [facility] Comment on above: Performed By: #### 5 7021-8 #### HASEEB YOON ([id number]) [facility] ([facility]) [address] [place] [address] 51709 MCHC (RBC) [Mass/Vol] 30.8 g/dL Low 32.0-36.0 [facility] Comment on above: Performed By: #### 5 7021-8 #### HASEEB YOON ([id number]) [facility] ([facility]) [address] [place] [address] 06316 MCV (RBC) [Entitic vol] 100 fL Normal 80-100 [facility] Comment on above: Performed By: #### 5 7021-8 #### HASEEB YOON ([id number]) [facility] ([facility]) [address] [place] [address] 83452 Monocytes (Bld) [#/Vol] 0.92 x10*3/uL High 0.05-0.80 [facility] Comment on above: Performed By: #### 5 7021-8 #### HASEEB YOON ([id number]) [facility] ([facility]) [address] [place] [address] 51246 Monocytes/100 WBC (Bld) 12.5 % Normal 2.0-10.0 [facility] Comment on above: Performed By: #### 5 7021-8 #### HASEEB YOON ([id number]) [facility] ([facility]) [address] [place] [address] 76658 Neutrophils (Bld) [#/Vol] 5.63 x10*3/uL High 1.60-5.50 [facility] Comment on above: Result Comment: Perc ent differential counts (%) should be interpreted in the context of the absolute cell counts (cells/uL). Performed By: #### 5 7021-8 #### HASEEB YOON ([id number]) [facility] ([facility]) [address] [place] [address] 81239 Neutrophils/100 WBC (Bld) 76.5 % Normal 40.0-80.0 [facility] Comment on above: Performed By: #### 5 7021-8 #### HASEEB YOON ([id number]) [facility] ([facility]) [address] [place] [address] 30423 Nucleated RBC/100 WBC (Bld) [Ratio] 0.0 /100 WBCs Normal 0.0-0.0 [facility] Comment on above: Performed By: #### 5 7021-8 #### HASEEB YOON ([id number]) [facility] ([facility]) [address] [place] [address] 28446 Platelets (Bld) [#/Vol] 400 x10*3/uL Normal 150-450 [facility] Comment on above: Performed By: #### 5 7021-8 #### HASEEB YOON ([id number]) [facility] ([facility]) [address] [place] [address] 12045 RBC (Bld) [#/Vol] 3.92 x10*6/uL Low 4.00-5.20 [facility] Comment on above: Performed By: #### 5 7021-8 #### HASEEB YOON ([id number]) [facility] ([facility]) [address] [place] [address] 71609 WBC (Bld) [#/Vol] 7.4 x10*3/uL Normal 4.4-11.3 [facility] Comment on above: Performed By: #### 5 7021-8 #### HASEEB OYON ([id number]) [facility] ([facility]) [address] [place] [address] 89318 Comprehensive metabolic 2000 panelon 03-21-2024 Albumin BCP dye [Mass/Vol] 4.0 g/dL Normal 3.4-5.0 [facility] Comment on above: Performed By: #### 2 4323-8 #### HASEEB YOON ([id number]) [facility] ([facility]) [address] [place] [address] 38668 ALP [Catalytic activity/Vol] 140 U/L High 33-136 [facility] Comment on above: Performed By: #### 2 432-8 #### HASEEB YOON ([id number]) [facility] ([facility]) [address] [place] [address] ALT With P-5'-P [Catalytic activity/Vol] 12 U/L Normal 7-45 [facility] Comment on above: Result Comment: Bev ents treated with Sulfasalazine may generate falsely decreased results for ALT. Performed By: #### 2 432-8 #### HASEEB YOON ([id number]) [facility] ([facility]) [address] [place] [address] Anion gap [Moles/Vol] 9 mmol/L Low 10-20 [facility] Comment on above: Performed By: #### 2 4322-8 #### HASEEB YOON ([id number]) [facility] ([facility]) [address] [place] [address] 37939 AST With P-5'-P [Catalytic activity/Vol] 31 U/L Normal 9-39 [facility] Comment on above: Performed By: #### 2 432-8 #### HASEEB YOON ([id number]) [facility] ([facility]) [address] [place] [address] 91718 Bilirubin [Mass/Vol] 0.3 mg/dL Normal 0.0-1.2 [facility] Comment on above: Performed By: #### 2 432-8 #### HASEEB YOON ([id number]) [facility] ([facility]) [address] [place] [address] 49742 Calcium [Mass/Vol] 9.6 mg/dL Normal 8.6-10.3 [facility] Comment on above: Performed By: #### 2 432-8 #### HASEEB YOON ([id number]) [facility] ([facility]) [address] [place] [address] Chloride [Moles/Vol] 107 mmol/L Normal 98-107 [facility] Comment on above: Performed By: #### 2 432-8 #### HASEEB YOON ([id number]) [facility] ([facility]) [facility] [place] [address] CO2 [Moles/Vol] 32 mmol/L Normal 21-32 [facility] Comment on above: Performed By: #### 2 4323-8 #### HASEEB YOON ([id number]) [facility] ([facility]) [address] [place] [address] 47318 Creatinine [Mass/Vol] 0.72 mg/dL Normal 0.50-1.05 [facility] Comment on above: Performed By: #### 2 432-8 #### HASEEB YOON ([id number]) [facility] ([facility]) [address] [place] [address] 02776 Glomerular filtration rate/1.73 sq M.predicted 82 mL/min/1.73m*2 Normal >60 [facility] Comment on above: Result Comment: Calc ulations of estimated GFR are performed using the 2020 CKD-EPI Study Refit equation without the race variable for the IDMS-Traceable creatinine methods. https://jasn.asnjournals.org/content//ASN.147858 1632 Performed By: #### 2 4323-8 #### HASEEB YOON ([id number]) [facility] ([facility]) [address] [place] [address] 30249 Glucose [Mass/Vol] 106 mg/dL High 74-99 [facility] Comment on above: Performed By: #### 2 4323-8 #### HASEEB YOON ([id number]) [facility] ([facility]) [address] [place] [address] 95432 Potassium [Moles/Vol] 4.7 mmol/L Normal 3.5-5.3 [facility] Comment on above: Performed By: #### 2 4323-8 #### HASEEB YOON ([id number]) [facility] ([facility]) [address] [place] [address] 90078 Protein [Mass/Vol] 5.9 g/dL Low 6.4-8.2 [facility] Comment on above: Performed By: #### 2 4323-8 #### HASEEB YOON ([id number]) [facility] ([facility]) [address] [place] [address] 02122 Sodium [Moles/Vol] 143 mmol/L Normal 136-145 [facility] Comment on above: Performed By: #### 2 4323-8 #### HASEEB YOON ([id number]) [facility] ([facility]) [address] [place] [address] 18960 Urea nitrogen [Mass/Vol] 16 mg/dL Normal 6-23 [facility] Comment on above: Performed By: #### 2 4323-8 #### HASEEB YOON ([id number]) [facility] ([facility]) [address] [place] [address] 29713 Cardiology Visit Reporton Cardiology Visit Report [facility]. [address] [place], [place] [address] OFFICE VISIT Date of Service: 03/15/24 MR#: [id number] Acct: [id number] Name: HUYEN VALERIO I Rep #: [id number] : 1940 Provider: YENIFER fernández Age/Sex: 83/F Location: [facility] Status: Signed HPI HPI History of Present Illness Details: This is an 83-year-old white female who presents today for a cardiovascular follow-up visit. She has a history of palpitations, PACs/PVCs, SVT status post EPS/RFA in 2000, and mitral valve prolapse. From a cardiac standpoint, the patient is doing well. She denies any palpitations, chest pain, pressure or heaviness. She denies SOB, Orthopnea, and PND. She does not have bleeding issues; no blood in urine, stool or nosebleeds. She does acknowledge a decrease in energy level-she attributes this to her RA. She denies myalgias, or claudication. She does have bilateral lower extremity edema R>L-improves with elevation. She denies sudden weight gain. She denies dizziness, lightheadedness, syncopal or near syncopal episodes, and headaches. Intake Vital Signs 03/17/23 11:31 10/13/23 15:16 03/08/24 11:18 03/15/24 10:32 Height 5 ft 1 in 5 ft 2 in 5 ft 1 in 5 ft 1 in Weight: 115 lb BMI 21.7 BP 120/78 Blood Pressure Location Lt brachial Position Sitting Respiration 16 Pulse 79 Pulse Source NIBP Intake Visit Reasons: 1 Y FU/PREV PFM Hearing Aid Technician Required: No Accompanied by: Daughter Is patient in pain?: No Allergies amoxicillin trihydrate (From Trimox) Allergy (Intermediate, Verified 03/15/24 10:40) Rash Penicillins Allergy (Verified 03/15/24 10:40) Swelling Medications ???Medication ???Instructions ???Recorded ???Confirmed ???Type methotrexate sodium (PF) 25 mg/mL 75 mg IM TH Check with primary 11/29/13 03/15/24 History injection solution doctor prednisone 5 mg tablet 5 mg PO DAILY Check with primary 11/29/13 03/15/24 History doctor alendronate 70 mg tablet (Fosamax) 70 mg PO QWEEK Check with primary 11/10/18 03/15/24 History doctor folic acid 400 mcg tablet 0.8 mg PO DAILY@0800 Supplement 11/10/18 03/15/24 History multivitamin 3 tab PO DAILY Supplement 06/25/21 03/15/24 History tofacitinib 5 mg tablet (Xeljanz) 5 mg PO BID Check with primary 06/25/21 03/15/24 History doctor ascorbic acid (vitamin C) 500 mg 500 mg PO DAILY Supplement 05/27/22 03/15/24 History capsule lansoprazole 30 mg capsule,delayed 30 mg PO DAILY Check with primary 10/02/22 03/15/24 History release (Prevacid) doctor cholecalciferol (vitamin D3) 50 125 mcg PO DAILY Supplement 03/17/23 03/15/24 History mcg (2,000 unit) capsule metoclopramide HCl 5 mg tablet 5 mg PO TID 3 weeks #63 tabs 03/08/24 03/15/24 Rx acetaminophen 500 mg tablet 1,000 mg PO Q8 PRN Pain 03/15/24 03/15/24 History buprenorphine 5 mcg/hour weekly 1 patch transdermal QWEEK 03/15/24 03/15/24 History transdermal patch (Butrans) tramadol 50 mg tablet 50 mg PO BID pain 03/15/24 03/15/24 History Have you fallen in the past year?: Yes (October; missed step on curb; no major injury) [facility] Medical History History of fall Zenkers diverticulum Back pain Kidney stones Irregular heart beat Closed head injury Fracture of hip, right, closed Wears glasses Wears contact lenses Post-menopausal History of steroid therapy Arthritis Rheumatoid arthritis Easy bruising Injury of back Back pain History of hiatal hernia Gastric reflux Sleep apnea History of pain when walking Normal stress echocardiogram Cardiology follow-up encounter History of irregular heartbeat MVP (mitral valve prolapse) Premature ventricular contraction Premature atrial contraction Supraventricular tachycardia Surgical History History of Zenker's diverticulum removal History of esophagogastroduodenoscopy (EGD) History of right hip hemiarthroplasty History of removal of ovarian cyst History of incisional hernia repair Hx of kyphoplasty History of cardiac radiofrequency ablation ( 2000) Hx of cataract surgery Hx of hernia repair H/O total knee replacement Family History Father CAD (coronary artery disease) CVA (cerebral vascular accident) Hypertension Heart disease Brother CAD (coronary artery disease) Mother Osteoporosis Social History household members: none Smoking Status: Never smoker alcohol intake: never substance use type: does not use what type of physical activity do you participate in: none ROS Const Const: Positive for fatigue (chronic attributes to RA); Negative for weaknes (more content not included)... Normal [facility] EGD Reporton 03-08-2024 EGD Report [facility] Medical Records Department [address] [place] [address] EGD Report MR#: [id number] Acct: [id number] Name: HUYEN VALERIO I Rep #: [id number] : 1940 83 From: Jimenez Friend DO PCP: YENIFER Barrera Status:REG [facility] Patient Name: Huyen Valerio Procedure Date: 03/08/2024 11:53 AM Date of : 1940 Age: 83 Procedure: Upper GI endoscopy Indications: Epigastric abdominal pain, Dysphagia Providers: Jimenez Matthew DO Medicines: Monitored Anesthesia Care Patient Profile: This is an 83 year old female. Refer to note in patient chart for documentation of history and physical. Patient has symptoms of chronic abdominal cramping and acute abdominal distention. Complications: No immediate complications. Procedure: Pre-Anesthesia Assessment: - Prior to the procedure, a History and Physical was performed, and patient medications and allergies were reviewed. The patient is competent. The risks and benefits of the procedure and the sedation options and risks were discussed with the patient. All questions were answered and informed consent was obtained. Patient identification and proposed procedure were verified by the physician in the pre-procedure area. Mental Status Examination: alert and oriented. Airway Examination: normal oropharyngeal airway and neck mobility. Respiratory Examination: clear to auscultation. CV Examination: normal. Prophylactic Antibiotics: The patient does not require prophylactic antibiotics. Prior Anticoagulants: The patient has taken no anticoagulant or antiplatelet agents except for NSAID medication. ASA Grade Assessment: II - A patient with mild systemic disease. After reviewing the risks and benefits, the patient was deemed in satisfactory condition to undergo the procedure. The anesthesia plan was to use monitored anesthesia care (MAC). Immediately prior to administration of medications, the patient was re-assessed for adequacy to receive sedatives. The heart rate, respiratory rate, oxygen saturations, blood pressure, adequacy of pulmonary ventilation, and response to care were monitored throughout the procedure. The physical status of the patient was re-assessed after the procedure. After obtaining informed consent, the endoscope was passed under direct vision. Throughout the procedure, the patient's blood pressure, pulse, and oxygen saturations were monitored continuously. The Endoscope was introduced through the mouth, and advanced to the second part of duodenum. The upper GI endoscopy was accomplished without difficulty. The patient tolerated the procedure well. 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 The maximum longitudinal extent of these mucosal changes was 1 cm in length. Mucosa was biopsied with a cold forceps for histology in a targeted manner at intervals of 1 cm in the lower third of the esophagus. One specimen bottle was sent to pathology. Biopsies were taken with a cold forceps for histology. Verification of patient identification for the specimen was done. Estimated blood loss was minimal. Evidence of a fundoplication was found in the gastric fundus. The wrap appeared loose. This was traversed. A large amount of food (residue) was found in the gastric body. No gross lesions were noted in the first portion of the duodenum. 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 Biopsied. - A fundoplication was found. The wrap appears loose. There was partial dehiscence of previous fundoplication - A large amount of food (residue) in the stomach. - No gross lesions in the first portion of the duodenum. Recommendation: - Discharge patient to home. - Gastroparesis diet. - Use metoclopramide 5 mg PO QID; 30 min AC and HS for 4 weeks. - Continue present medications. Procedure Code(s): --- Professional --- 16726, Esophagogastroduodenoscopy, flexible, transoral; with biopsy, single or multiple CPT copyright 2021 [employer]. All rights reserved. The codes documented in this report are preliminary and upon orthopedic coder review may be revised to meet current compliance requirements. Jimenez Matthew DO 03/08/2024 12:12:28 PM This report has been signed electronically. Number of Addenda: 0 Note Initiated On: 03/08/2024 11:53 AM 03/08/24 1212 Date Jimenez Matthew DO Cosigner Signature: Date (if indicated) CC: LEAD PROGRAMMER-C Milagros Matthew DO Date Dictated: 03/08/24 1153 Date Transcribed: Tra (more content not included)... Normal [facility] MR/POSTOP.ANEon 03-08-2024 MR/POSTOP.ANE [facility] Medical Records Department [address] [place] [address] Anesthesia Postop Eval I 03/08/24 1215 MR#: [id number] Acct: [id number] Name: HUYEN VALERIO I Rep #: [id number] : 1940 83 From: Girma Whyte PCP: KULDIP BarreraC Status:REG SDC Y Race: C Location: [place] [address] Anesthesia: Postop Eval I Current Vital Signs Temperature: 97.9 F Pulse Rate: 76 Blood Pressure: 105/64 Respiratory Rate: 16 Pulse Ox: 99 Oxygen Delivery Method: Room Air Assessment Airway patent: Yes Spontaneous unlabored respirations: Yes Mental status: Asleep nausea: No Vomiting: No Anesthesia Complication: No Fluid Hydration Crystalloid volume administer (ml): 30 Total IV fluid infused: 30 Progress Note Anesthesia document: Postop Eval 1 completed: Yes 03/08/241215 Date Girma Brock Signature: Date CC: Signed [facility] MR/[id number] 03-08-2024 MR/POSTOPAN2 [facility] Medical Records Department [address] [place] [address] Anesthesia Postop Eval II 03/08/24 1229 MR#: [id number] Acct: [id number] Name: HUYEN VALERIO I Rep #: [id number] : 1940 83 From: Parviz Escalona MD PCP: YENIFER Barrera Status:REG SDC Y Race: C Location: [place] [address] Anesthesia Postop Eval I Sum Postop Eval Completion status Anesthesia document: Postop Eval 1 completed: Yes Anesthesia Postop Eval I Summary Anesthesia Postop Eval I Summary: Anesthesia Postop Eval I: Assessment Summary Airway patent Yes 03/08/24 12:16 [email or web address] Spontaneous unlabored Yes 03/08/24 12:16 [email or web address] respirations Mental status Asleep 03/08/24 12:16 [email or web address] nausea No 03/08/24 12:16 [email or web address] Vomiting No 03/08/24 12:16 [email or web address] Anesthesia Postop Eval I: Fluid Summary Crystalloid volume administer 30 03/08/24 12:16 [email or web address] (ml) Colloids volume administered ( ml) Blood Product volume administered (ml) Total IV fluid infused 30 03/08/24 12:16 [email or web address] Anesthesia Postop Eval I: Summary Notes Anesthesia Complication No 03/08/24 12:16 [email or web address] Anesthesia Complication Comment: Post-operative progress note Anesthesia: Postop Eval II Evaluation Mental status: Awake Pain Level: 0 nausea: No Vomiting: No 03/08/24 1229 Date Parviz Brock Signature: Date CC: Signed Normal [facility] Special Stain Group Ion 10-2 Special Stain Group I --------- Patient Age/Sex Location Account Attending Physician HUYEN VALERIO I 83/F EN [id number] Jimenez Matthew DO Specimen: [id number] Received: 03/08/24 Status: PARKER Rober Num: [id number] Spec Type: EGD BIOPSY Subm Dr: Jimenez Matthew DO HEADER OPERATION: EGD with biopsy PRE-OP DIAGNOSIS: Abdominal pain, nausea, Hiatal hernia with GERD TISSUE SUBMITTED: Distal esophagus biopsy MICROSCOPIC DIAGNOSIS Distal esophagus, biopsy: Fragments of gastroesophageal mucosa with moderate chronic inflammation and mild acute inflammation. Intestinal metaplasia (goblet cell metaplasia) not identified. See comment. 03/09/2024 COMMENT Alcian blue/PAS stain with matched control is used in the evaluation of the specimen. MICROSCOPIC DESCRIPTION Slides are reviewed. GROSS DESCRIPTION Received in fixative is one container labeled with the patient's name and designated Distal esophagus biopsy. The specimen consists of two irregular fragments of light colon soft tissue that in aggregate measure 0.6 x 0.3 x 0.1 cm. The specimen is totally submitted in one cassette. 03/08/2024 TC:3 CPT:30146,02504 Patient Age/Sex Location Account Attending Physician HUYEN VALERIO I 83/F EN [id number] Jimenez Matthew DO Signed (signature on file) Dr. Geoffrey Cristobal MD 03/09/24 1151 Normal [facility] Comment on above: Performed By: #### P SSI ####[facility] [address] [place], [place], [address] XR KNEE THREE VIEWS RIGHTon 02-17-2024 XR KNEE THREE VIEWS RIGHT ORIGINAL HISTORY: Pain COMPARISON: No FINDINGS: There is an arthroplasty in near anatomic alignment. There is no radiographic evidence of loosening or failure of hardware. There is soft tissue swelling, most prominently at the patella. There are vascular calcifications. IMPRESSION: Soft tissue swelling. Interpreted by: Karthikeyan Wakefield MD Preliminary Report By: Karthikeyan Wakefield MD Electronically signed By Karthikeyan Wakefield MD Dictated Date: 02/17/2024 1:16:17 PM Prelim Date: 02/17/2024 1:17:15 PM Sign Date: 02/17/2024 1:17:15 PM Ordering Provider: MILAGROS HUNTER [facility] Gastroenterology Visit Repor ton 02-02-2024 Gastroenterology Visit Report [facility]enterology [address] [place] [address] OFFICE VISIT Date of Service: 02/02/24 MR#: [id number] Acct: [id number] Name: HUYEN VALERIO I Rep #: [id number] : 1940 Provider: LESLIE Aguilar Age/Sex: 83/F Location: [facility] Status: Signed Intake Vital Signs 10/13/23 15:16 Height 5 ft 2 in Intake Visit Reasons: Abdominal pain Chief Complaint: nausea, GERD Allergies amoxicillin trihydrate (From Trimox) Allergy (Intermediate, Verified 06/30/23 09:34) Rash Penicillins Allergy (Verified 06/30/23 09:34) Swelling Medications ???Medication ???Instructions ???Recorded ???Confirmed ???Type methotrexate sodium (PF) 25 mg/mL 75 mg IM TH Check with primary 11/29/13 02/02/24 History injection solution doctor prednisone 5 mg tablet 5 mg PO DAILY Check with primary 11/29/13 02/02/24 History doctor alendronate 70 mg tablet (Fosamax) 70 mg PO QWEEK Check with primary 11/10/18 02/02/24 History doctor folic acid 400 mcg tablet 0.8 mg PO DAILY@0800 Supplement 11/10/18 02/02/24 History multivitamin 3 tab PO DAILY Supplement 06/25/21 02/02/24 History tofacitinib 5 mg tablet (Xeljanz) 5 mg PO BID Check with primary 06/25/21 02/02/24 History doctor ascorbic acid (vitamin C) 500 mg 500 mg PO DAILY Supplement 05/27/22 02/02/24 History capsule acetaminophen 500 mg tablet 1,000 mg PO Q8 Pain 10/02/22 02/02/24 History lansoprazole 30 mg capsule,delayed 30 mg PO DAILY Check with primary 10/02/22 02/02/24 History release (Prevacid) doctor tramadol 50 mg tablet 50 mg PO Q8H PRN pain #3 tabs 10/02/22 02/02/24 Rx buprenorphine HCl 75 mcg buccal 75 mcg buccal Q12H 03/17/23 02/02/24 History film (Belbuca) cholecalciferol (vitamin D3) 50 125 mcg PO DAILY Supplement 03/17/23 02/02/24 History mcg (2,000 unit) capsule zinc sulfate 66 mg tablet (Zinc-15) 66 mg PO DAILY 03/17/23 02/02/24 History hydrocodone-acetaminophen 5-325mg 1 tab PO Q6H PRN PRN Pain 3 days 10/13/23 02/02/24 Rx 5mg-325mg #12 TABLETS Have you fallen in the past year?: No PFSH Medical History Zenkers diverticulum Back pain Kidney stones Irregular heart beat Closed head injury Fracture of hip, right, closed Wears glasses Wears contact lenses Post-menopausal History of steroid therapy Arthritis Rheumatoid arthritis Easy bruising Injury of back Back pain History of hiatal hernia Gastric reflux Sleep apnea History of pain when walking Normal stress echocardiogram Cardiology follow-up encounter History of irregular heartbeat MVP (mitral valve prolapse) Premature ventricular contraction Premature atrial contraction Supraventricular tachycardia Surgical History History of right hip hemiarthroplasty History of removal of ovarian cyst History of incisional hernia repair Hx of kyphoplasty History of cardiac radiofrequency ablation ( 2000) Hx of cataract surgery Hx of hernia repair H/O total knee replacement Family History Father CAD (coronary artery disease) CVA (cerebral vascular accident) Hypertension Heart disease Brother CAD (coronary artery disease) Mother Osteoporosis Social History household members: none Smoking Status: Never smoker alcohol intake: never substance use type: does not use what type of physical activity do you participate in: none HPI HPI Chief Complaint: nausea, GERD Details: HUYEN VALERIO, is a 83 F who presents to the office today for establishment with [facility]. She has a PMHx of Zenker diverticulum, GERD, RA, MVP, PVCs and osteoporosis. She is here today for persistent nausea and epigastric pain. She had an EGD with Dr. Matthew in October 2022 which showed Zenker diverticulum, hiatal hernia and stenosis. She had repair of the diverticulum in March which helped with her dysphagia a little bit. She has had nausea for years. When she eats she will feel nauseous very quickly but tries hard not to vomit. She does not eat large meals. She has had a 30 lbs weight loss over the past year. The epigastric pain starts in her esophagus and goes up to her jaw. It wakes her up at night sometimes. SHe has been on prescription and OTC mediations for heartburn and nausea and nothing works. EGD 10.09.22 Zenker's diverticulum. - Benign-appearing esophageal stenosis. Dilated. - Large hiatal hernia. - No gross lesions in the first portion of the duodenum. - No specimens collected. ROS Const Constitutional: Positive for fatigue, fever(s), weakness and weight change (weight loss) ENT ENT: Positive for difficulty swallowing Cardio Cardiology: Positive for leg pain wi (more content not included)... Normal [facility] CBC W Auto Differential pane l (Bld)on 01-04-2024 Basophils (Bld) [#/Vol] 0.05 x10*3/uL Normal 0.00-0.10 [facility] Comment on above: Performed By: #### 5 7021-8 #### HASEEB YOON ([id number]) [facility]) [address] [place] [address] 75520 Basophils/100 WBC (Bld) 0.6 % Normal 0.0-2.0 [facility] Comment on above: Performed By: #### 5 7021-8 #### HASEEB YOON ([id number]) [facility]) [facility] [place] [address] Eosinophils (Bld) [#/Vol] 0.05 x10*3/uL Normal 0.00-0.40 [facility] Comment on above: Performed By: #### 5 7021-8 #### HASEEB YOON ([id number]) [facility] ([facility]) [address] [place] [address] 88919 Eosinophils/100 WBC (Bld) 0.6 % Normal 0.0-6.0 [facility] Comment on above: Performed By: #### 5 7021-8 #### HASEEB YOON ([id number]) [facility] ([facility]) [address] [place] [address] 10884 Erythrocyte distribution width (RBC) [Ratio] 15.5 % High 11.5-14.5 [facility] Comment on above: Performed By: #### 5 7021-8 #### HASEEB YOON ([id number]) [facility]) [address] [place] [address] 06372 Hematocrit (Bld) [Volume fraction] 39.8 % Normal 36.0-46.0 [facility] Comment on above: Performed By: #### 5 7021-8 #### HASEEB YOON ([id number]) [facility]) [address] [place] [address] 23409 Hemoglobin (Bld) [Mass/Vol] 12.3 g/dL Normal 12.0-16.0 [facility] Comment on above: Performed By: #### 5 7021-8 #### HASEEB YOON ([id number]) [facility]) [address] [place] [address] 21764 Immature granulocytes (Bld) [#/Vol] 0.03 x10*3/uL Normal 0.00-0.50 [facility] Comment on above: Performed By: #### 5 7021-8 #### HASEEB YOON ([id number]) [facility]) [address] [place] [address] 06086 Immature granulocytes/100 WBC (Bld) 0.4 % Normal 0.0-0.9 [facility] Comment on above: Result Comment: Paty ture Granulocyte Count (IG) includes promyelocytes, myelocytes and metamyelocytes but does not include bands. Percent differential counts (%) should be interpreted in the context of the absolute cell counts (cells/UL). Performed By: #### 5 7021-8 #### HASEEB YOON ([id number]) [facility]) [address] [place] [address] Lymphocytes (Bld) [#/Vol] 1.01 x10*3/uL Normal 0.80-3.00 [facility] Comment on above: Performed By: #### 5 7021-8 #### HASEEB YOON ([id number]) [facility]) [address] [place], [place] [id number] Lymphocytes/100 WBC (Bld) 12.8 % Normal 13.0-44.0 [facility] Comment on above: Performed By: #### 5 7021-8 #### HASEEB YOON ([id number]) [facility]) [address] [place] [address] 11297 MCH (RBC) [Entitic mass] 30.3 pg Normal 26.0-34.0 [facility] Comment on above: Performed By: #### 5 7021-8 #### HASEEB YOON ([id number]) [facility]) [address] [place] [address] 34909 MCHC (RBC) [Mass/Vol] 30.9 g/dL Low 32.0-36.0 [facility] Comment on above: Performed By: #### 5 7021-8 #### HASEEB YOON ([id number]) [facility]) [address] [place] [address] 46682 MCV (RBC) [Entitic vol] 98 fL Normal 80-100 [facility] Comment on above: Performed By: #### 5 7021-8 #### HASEEB YOON ([id number]) [facility]) [address] [place] [address] 19754 Monocytes (Bld) [#/Vol] 0.84 x10*3/uL High 0.05-0.80 [facility] Comment on above: Performed By: #### 5 7021-8 #### HASEEB YOON ([id number]) [facility]) [address] [place] [address] 97130 Monocytes/100 WBC (Bld) 10.7 % Normal 2.0-10.0 [facility] Comment on above: Performed By: #### 5 7021-8 #### HASEEB YOON ([id number]) [facility]) [address] [place] [address] 07827 Neutrophils (Bld) [#/Vol] 5.88 x10*3/uL High 1.60-5.50 [facility] Comment on above: Result Comment: Perc ent differential counts (%) should be interpreted in the context of the absolute cell counts (cells/uL). Performed By: #### 5 7021-8 #### HASEEB YOON ([id number]) [facility]) [address] [place] [address] 45172 Neutrophils/100 WBC (Bld) 74.9 % Normal 40.0-80.0 [facility] Comment on above: Performed By: #### 5 7021-8 #### HASEEB YOON ([id number]) [facility]) [address] [place] [address] 76573 Nucleated RBC/100 WBC (Bld) [Ratio] 0.0 /100 WBCs Normal 0.0-0.0 [facility] Comment on above: Performed By: #### 5 7021-8 #### HASEEB YOON ([id number]) [facility]) [address] [place] [address] 30940 Platelets (Bld) [#/Vol] 373 x10*3/uL Normal 150-450 [facility] Comment on above: Performed By: #### 5 7021-8 #### HASEEB YOON ([id number]) [facility]) [address] [place] [address] 77236 RBC (Bld) [#/Vol] 4.06 x10*6/uL Normal 4.00-5.20 [facility] Comment on above: Performed By: #### 5 7021-8 #### HASEEB YOON ([id number]) [facility]) [facility] [place] [address] WBC (Bld) [#/Vol] 7.9 x10*3/uL Normal 4.4-11.3 [facility] Comment on above: Performed By: #### 5 7021-8 #### HASEEB YOON ([id number]) [facility]) [address] [place] [address] Comprehensive metabolic 2000 panelon 01-04-2024 Albumin BCP dye [Mass/Vol] 4.2 g/dL Normal 3.4-5.0 [facility] Comment on above: Performed By: #### 2 4323-8 #### HASEEB YOON ([id number]) [facility]) [address] [place] [address] ALP [Catalytic activity/Vol] 91 U/L Normal 33-136 [facility] Comment on above: Performed By: #### 2 4323-8 #### HASEEB YOON ([id number]) [facility]) [address] [place] [address] 24057 ALT With P-5'-P [Catalytic activity/Vol] 10 U/L Normal 7-45 [facility] Comment on above: Result Comment: Bev ents treated with Sulfasalazine may generate falsely decreased results for ALT. Performed By: #### 2 4323-8 #### HASEEB YOON ([id number]) [facility]) [address] [place] [address] 60430 Anion gap [Moles/Vol] 12 mmol/L Normal 10-20 [facility] Comment on above: Performed By: #### 2 4323-8 #### HASEEB YOON ([id number]) [facility]) [address] [place] [address] 90021 AST With P-5'-P [Catalytic activity/Vol] 31 U/L Normal 9-39 [facility] Comment on above: Performed By: #### 2 4323-8 #### HASEEB YOON ([id number]) [facility]) [address] [place] [address] Bilirubin [Mass/Vol] 0.6 mg/dL Normal 0.0-1.2 [facility] Comment on above: Performed By: #### 2 4323-8 #### HASEEB YOON ([id number]) [facility]) [address] [place] [address] Calcium [Mass/Vol] 10.0 mg/dL Normal 8.6-10.3 [facility] Comment on above: Performed By: #### 2 432-8 #### HASEEB YOON ([id number]) [facility]) [address] [place] [address] 59072 Chloride [Moles/Vol] 104 mmol/L Normal 98-107 [facility] Comment on above: Performed By: #### 2 432-8 #### HASEEB YOON ([id number]) [facility]) [address] [place] [address] 75677 CO2 [Moles/Vol] 28 mmol/L Normal 21-32 [facility] Comment on above: Performed By: #### 2 4323-8 #### HASEEB YOON ([id number]) [facility]) [facility] [place] [address] Creatinine [Mass/Vol] 0.83 mg/dL Normal 0.50-1.05 [facility] Comment on above: Performed By: #### 2 4323-8 #### HASEEB YOON ([id number]) [facility]) [address] [place] [address] 12603 Glomerular filtration rate/1.73 sq M.predicted 69 mL/min/1.73m*2 Normal >60 [facility] Comment on above: Result Comment: Calc ulations of estimated GFR are performed using the 2020 CKD-EPI Study Refit equation without the race variable for the IDMS-Traceable creatinine methods. https://jasn.asnjournals.org/content//ASN.080508 0579 Performed By: #### 2 4323-8 #### HASEEB YOON ([id number]) [facility]) [facility] [place] [address] Glucose [Mass/Vol] 115 mg/dL High 74-99 [facility] Comment on above: Performed By: #### 2 4323-8 #### HASEEB YOON ([id number]) [facility]) [address] [place] [address] 46060 Potassium [Moles/Vol] 4.5 mmol/L Normal 3.5-5.3 [facility] Comment on above: Performed By: #### 2 4323-8 #### HASEEB YOON ([id number]) [facility]) [address] [place] [address] 90346 Protein [Mass/Vol] 6.6 g/dL Normal 6.4-8.2 [facility] Comment on above: Performed By: #### 2 4323-8 #### HASEEB YOON ([id number]) [facility]) [address] [place] [address] 82908 Sodium [Moles/Vol] 139 mmol/L Normal 136-145 [facility] Comment on above: Performed By: #### 2 4323-8 #### HASEEB YOON ([id number]) [facility]) [facility] [place] [address] Urea nitrogen [Mass/Vol] 20 mg/dL Normal 6-23 [facility] Comment on above: Performed By: #### 2 4323-8 #### HASEEB YOON ([id number]) [facility]) [address] [place] [address] 48955 Facial Bones min 3 Viewson 0 11-03-2023 Facial Bones min 3 Views [facility] Imaging Services [address] [place] [address] Facial Bones min 3 Views MR#: [id number] Acct: [id number] Name: HUYEN VALERIO I Rep #: [id number] : 1940 F 83 From: Girma Barajas MD PCP: YENIFER Barrera Status: REG CLI Study: Facial Bones min 3 Views Date of Exam: 4 Exam# [id number] Ordering Dr: Milagros Hunter NP 3:[id number] STUDY: X-RAY - FACIAL BONES REASON FOR STUDY: Female, 83 years old. Fall. Evaluate for facial fractures. TECHNIQUE: 3 view(s) of the facial bones. COMPARISON: None. FINDINGS: Osteopenia. Normal bilateral frontozygomatic and zygomatic-temporal arches. Normal bilateral medial and inferior orbital ventura. Normal bilateral orbits. Normal visualized nasal bones. Mild deviation of the nasal septum. Normal anterior nasal spine. The remaining visualized osseous structures are normal. Normal visualized paranasal sinuses. RAD/Facial Bones min 3 Views IMPRESSION: Osteopenia with mild deviation of the nasal septum. No acute abnormality. Electronically Signed: Girma Barajas MD at 11:46 EDT , CC: YENIFER Hunter Hydro Operator: Signed Normal [facility] 10-20-2023 [facility] TEODOROHUYEN I ([id number]) 1940 F Date Time Provider Department 10/20/23 DC [facility] During your visit today, we recorded the following information about you: Allergies As of Date: 10/20/2023 Noted Allergy Reaction PENICILLINS 01/19/2014 4 - Hives 2 - Rash 7 - Swelling TRIMAX 11/09/2012 2 - Rash Date Reviewed: 08/20/2023 Reviewed by: Ariel Kilgore COA - Fully Assessed Prescriptions as of 10/20/2023 - traMADol (ULTRAM) 50 mg tablet - XELJANZ 5 mg tablet - alendronate (FOSAMAX) 70 mg tablet - Cholecalciferol, Vitamin D3, 25 mcg (1,000 unit) cap Take 1,000 Units by mouth. - buprenorphine (BUTRANS) 5 mcg/hour - Dexlansoprazole 60 mg CpDM Take 60 mg by mouth once daily. - cycloSPORINE (RESTASIS) 0.05 % ophthalmic emulsion Use 1 Drop in both eyes twice daily. - Ibandronate 150 mg tablet Take 150 mg by mouth once every month. - Omeprazole 40 mg capsule - vtfogttqerujs-bpc-qwvj68-PF (REFRESH OPTIVE ADVANCED, PF,) 0.5-1-0.5 % dpet Use 1 Drop in both eyes four times daily. - Flaxseed Oil 1,000 mg cap Take 1 capsule by mouth twice daily. - methotrexate 10 mg tablet Take 75 mg by mouth every Thursday. - celecoxib (CELEBREX) 200 mg capsule Take 200 mg by mouth twice daily. - adalimumab (HUMIRA) 40 mg/0.8 mL injection Inject 40 mg subcutaneously one time only. - predniSONE 10 mg tablet Take 5 mg by mouth once daily. - lansoprazole orally disintegrating 30 mg disintegrating tablet Take 60 mg by mouth once daily. - folic acid 1 mg tablet Take 1 mg by mouth once daily. - Ascorbic Acid (VITAMIN C) 1,000 mg tablet Take 1,000 mg by mouth once daily. - ERGOCALCIFEROL, VITAMIN D2, (VITAMIN D ORAL) Take by mouth. 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] 10/16/2015 Regular astigmatism [H52.229] 11/26/2015 01/26/2016 Pseudophakia, right eye [Z96.1] 12/07/2015 01/31/2016 Astigmatism of left eye [H52.202] 12/10/2015 01/26/2016 S/P cataract extraction and insertion of intrao*01/31/2016 Encounter Status:Closed by SEPIDEH BAUTISTA on 10/20/23 Normal [facility] Brain/Head without Contrasto n 10-13-2023 Brain/Head without Contrast [facility] Imaging Services [address] [place] [address] Brain/Head without Contrast MR#: [id number] Acct: [id number] Name: HUYEN VALERIO I Rep #: [id number] : 1940 F 83 From: Riley Miller DO PCP: YENIFER Barrera Status: REG ER Study: Brain/Head without Contrast Date of Exam: 09/01 Exam# [id number] Ordering Dr: Roosevelt Zimmerman MD 0:[id number] STUDY: CT BRAIN WITHOUT CONTRAST REASON FOR EXAM: Female, 83 years old. Trauma RADIATION DOSAGE (If Supplied By Facility): CTDIvol = ( 44.99 ) mGy, DLP = ( 796.11 ) mGycm TECHNIQUE: Transaxial CT imaging of the brain was performed without administration of intravenous contrast material. Individualized dose optimization techniques were used for this CT. COMPARISON: No relevant priors. FINDINGS: There is left periorbital soft tissue swelling. Fracture lines are noted involving the medial wall, lateral wall, and the floor of the left orbit. Fracture lines are noted of the left maxillary sinus inferior and lateral ventura. Normal size ventricles and extra-axial spaces for the patient''s age. Bilateral white matter microangiopathic ischemic changes of the cerebral hemispheres. Normal basal ganglia and thalami. Normal brainstem. Normal cerebellum. There is no intracranial hemorrhage. There are no findings of an acute ischemic infarction. Opacity of the left paranasal sinuses. CT/Brain/Head without Contrast IMPRESSION: No acute intracranial pathology of the brain. Left orbital and maxillary fractures. Electronically Signed: Riley Miller DO at 16:33 EDT Reading Location ID and State: [facility] / [place] Tel [phone], Service support , CC: YENIFER Hunter; Dr. Roosevelt Zimmerman MD Hydro Operator: Signed Normal [facility] CBC W Auto Differential pane l (Bld)on 10-13-2023 Basophils (Bld) [#/Vol] 0.07 10*3/uL Normal <0.11 [facility] Comment on above: Order Comment: Speci men Type: BLOOD SPECIMEN Ordering Facility: [facility] Address: [address] [place] [address] Performed By: #### 5 7021-8 #### [facility] CLIA [id number] [address] [place] [address] [place] Basophils/100 WBC (Bld) 0.8 % Normal [facility] Comment on above: Order Comment: Speci men Type: BLOOD SPECIMEN Ordering Facility: [facility] Address: [address] [place] [address] Performed By: #### 5 7021-8 #### [facility] CLIA [id number] [address] [place] [address] [place] Differential cell count method Nom (Bld) Auto Normal [facility] Comment on above: Order Comment: Speci men Type: BLOOD SPECIMEN Ordering Facility: [facility] Address: [address] [place] [address] Performed By: #### 5 7021-8 #### [facility] CLIA [id number] [address] [place] [address] [place] Eosinophils (Bld) [#/Vol] 0.08 10*3/uL Normal <0.46 [facility] Comment on above: Order Comment: Speci men Type: BLOOD SPECIMEN Ordering Facility: [facility] Address: [address] [place] [address] Performed By: #### 5 7021-8 #### [facility] CLIA [id number] [address] [place] [address] [place] Eosinophils/100 WBC (Bld) 1.0 % Normal [facility] Comment on above: Order Comment: Speci men Type: BLOOD SPECIMEN Ordering Facility: [facility] Address: [address] [place] [address] Performed By: #### 5 7021-8 #### [facility] CLIA [id number] [address] [place] [address] [place] Erythrocyte distribution width (RBC) [Ratio] 16.9 % High 11.5-15.0 [facility] Comment on above: Order Comment: Speci men Type: BLOOD SPECIMEN Ordering Facility: [facility] Address: [address] [place] [address] Performed By: #### 5 7021-8 #### [facility] CLIA [id number] [address] [place] [address] [place] Hematocrit (Bld) [Volume fraction] 38.5 % Normal 36.0-46.0 [facility] Comment on above: Order Comment: Speci men Type: BLOOD SPECIMEN Ordering Facility: [facility] Address: [address] [place] [address] Performed By: #### 5 7021-8 #### [facility] CLIA [id number] [address] [place] [address] [place] Hemoglobin (Bld) [Mass/Vol] 11.9 g/dL Normal 11.5-15.5 [facility] Comment on above: Order Comment: Speci men Type: BLOOD SPECIMEN Ordering Facility: [facility] Address: [address] [place] [address] Performed By: #### 5 7021-8 #### [facility] CLIA [id number] [address] [place] [address] [place] Immature granulocytes (Bld) [#/Vol] 0.04 10*3/uL Normal <0.10 [facility] Comment on above: Order Comment: Speci men Type: BLOOD SPECIMEN Ordering Facility: [facility] Address: [address] [place] [address] Performed By: #### 5 7021-8 #### [facility] CLIA [id number] [address] [place] [address] [place] Immature granulocytes/100 WBC (Bld) 0.5 % Normal [facility] Comment on above: Order Comment: Speci men Type: BLOOD SPECIMEN Ordering Facility: [facility] Address: [address] [place] [address] Performed By: #### 5 7021-8 #### [facility] CLIA [id number] [address] [place] [address] [place] Lymphocytes (Bld) [#/Vol] 0.71 10*3/uL Low 1.00-4.00 [facility] Comment on above: Order Comment: Speci men Type: BLOOD SPECIMEN Ordering Facility: [facility] Address: [address] [place] [address] Performed By: #### 5 7021-8 #### [facility] CLIA [id number] [address] [place] [address] [place] Lymphocytes/100 WBC (Bld) 8.6 % Normal [facility] Comment on above: Order Comment: Speci men Type: BLOOD SPECIMEN Ordering Facility: [facility] Address: [address] [place] [address] Performed By: #### 5 7021-8 #### [facility] CLIA [id number] [address] [place] [address] [place] MCH (RBC) [Entitic mass] 29.7 pg Normal 26.0-34.0 [facility] Comment on above: Order Comment: Speci men Type: BLOOD SPECIMEN Ordering Facility: [facility] Address: [address] [place] [address] Performed By: #### 5 7021-8 #### [facility] CLIA [id number] [address] [place] [address] [place] MCHC (RBC) [Mass/Vol] 30.9 g/dL Normal 30.5-36.0 [facility] Comment on above: Order Comment: Speci men Type: BLOOD SPECIMEN Ordering Facility: [facility] Address: [address] [place] [address] Performed By: #### 5 7021-8 #### [facility] CLIA [id number] [address] [place] [address] [place] MCV (RBC) [Entitic vol] 96.0 fL Normal 80.0-100.0 [facility] Comment on above: Order Comment: Speci men Type: BLOOD SPECIMEN Ordering Facility: [facility] Address: [address] [place] [address] Performed By: #### 5 7021-8 #### [facility] CLIA [id number] [address] [place] [address] [place] Monocytes (Bld) [#/Vol] 0.78 10*3/uL Normal <0.87 [facility] Comment on above: Order Comment: Speci men Type: BLOOD SPECIMEN Ordering Facility: [facility] Address: [address] [place] [address] Performed By: #### 5 7021-8 #### [facility] CLIA [id number] [address] [place] [address] [place] Monocytes/100 WBC (Bld) 9.5 % Normal [facility] Comment on above: Order Comment: Speci men Type: BLOOD SPECIMEN Ordering Facility: [facility] Address: [address] [place] [address] Performed By: #### 5 7021-8 #### [facility] CLIA [id number] [address] [place] [address] [place] Neutrophils (Bld) [#/Vol] 6.56 10*3/uL Normal 1.45-7.50 [facility] Comment on above: Order Comment: Speci men Type: BLOOD SPECIMEN Ordering Facility: [facility] Address: [address] [place] [address] Performed By: #### 5 7021-8 #### [facility] CLIA [id number] [address] [place] [address] [place] Neutrophils/100 WBC (Bld) 79.6 % Normal [facility] Comment on above: Order Comment: Speci men Type: BLOOD SPECIMEN Ordering Facility: [facility] Address: [address] [place] [address] Performed By: #### 5 7021-8 #### [facility] CLIA [id number] [address] [place] [address] [place] Nucleated RBC (Bld) [#/Vol] 10*3/uL Normal <0.01 [facility] Comment on above: Order Comment: Speci men Type: BLOOD SPECIMEN Ordering Facility: [facility] Address: [address] [place] [address] Performed By: #### 5 7021-8 #### [facility] CLIA [id number] [address] [place] [address] [place] Nucleated RBC/100 WBC (Bld) [Ratio] 0.0 /100 WBC Normal [facility] Comment on above: Order Comment: Speci men Type: BLOOD SPECIMEN Ordering Facility: [facility] Address: [address] [place] [address] Performed By: #### 5 7021-8 #### [facility] CLIA [id number] [address] [place], [place] [address] [place] Platelet mean volume (Bld) [Entitic vol] 12.0 fL Normal 9.0-12.7 [facility] Comment on above: Order Comment: Speci men Type: BLOOD SPECIMEN Ordering Facility: [facility] Address: [address] [place] [address] Performed By: #### 5 7021-8 #### [facility] CLIA [id number] [address] [place] [address] [place] Platelets (Bld) [#/Vol] 326 10*3/uL Normal 150-400 [facility] Comment on above: Order Comment: Speci men Type: BLOOD SPECIMEN Ordering Facility: [facility] Address: [address] [place] [address] Performed By: #### 5 7021-8 #### [facility] CLIA [id number] [address] [place] [address] [place] RBC (Bld) [#/Vol] 4.01 10*6/uL Normal 3.90-5.20 [facility] Comment on above: Order Comment: Speci men Type: BLOOD SPECIMEN Ordering Facility: [facility] Address: [address] [place] [address] Performed By: #### 5 7021-8 #### [facility] CLIA [id number] [address] [place] [address] [place] WBC (Bld) [#/Vol] 8.24 10*3/uL Normal 3.70-11.00 [facility] Comment on above: Order Comment: Speci men Type: BLOOD SPECIMEN Ordering Facility: [facility] Address: [address] [place] [address] Performed By: #### 5 7021-8 #### [facility] CLIA [id number] [address] [place] [id number] [address] [place] Comprehensive metabolic 2000 panelon 10-13-2023 Albumin [Mass/Vol] 4.0 g/dL Normal 3.9-4.9 [facility] Comment on above: Order Comment: Speci men Type: BLOOD SPECIMEN Ordering Facility: [facility] Address: [address] [place] [address] Performed By: #### 2 4323-8 #### [facility] CLIA [id number] [address] [place] [address] [place] ALP [Catalytic activity/Vol] 112 U/L Normal 34-123 [facility] Comment on above: Order Comment: Speci men Type: BLOOD SPECIMEN Ordering Facility: [facility] Address: [address] [place] [address] Performed By: #### 2 4323-8 #### [facility] CLIA [id number] [address] [place] [address] [place] ALT [Catalytic activity/Vol] 13 U/L Normal 7-38 [facility] Comment on above: Order Comment: Speci men Type: BLOOD SPECIMEN Ordering Facility: [facility] Address: [address] [place] [address] Performed By: #### 2 4323-8 #### [facility] CLIA [id number] [address] [place] [address] [place] Anion gap [Moles/Vol] 13 mmol/L Normal 8-15 [facility] Comment on above: Order Comment: Speci men Type: BLOOD SPECIMEN Ordering Facility: [facility] Address: [address] [place] [address] Performed By: #### 2 4323-8 #### [facility] CLIA [id number] [address] [place] [address] [place] AST [Catalytic activity/Vol] 41 U/L High 13-35 [facility] Comment on above: Order Comment: Speci men Type: BLOOD SPECIMEN Ordering Facility: [facility] Address: [address] [place] [address] Performed By: #### 2 4323-8 #### [facility] CLIA [id number] [address] [place] [address] [place] Bilirubin [Mass/Vol] 0.4 mg/dL Normal 0.2-1.3 [facility] Comment on above: Order Comment: Speci men Type: BLOOD SPECIMEN Ordering Facility: [facility] Address: [address] [place] [address] Performed By: #### 2 4323-8 #### [facility] CLIA [id number] [address] [place] [address] [place] Calcium [Mass/Vol] 10.3 mg/dL High 8.5-10.2 [facility] Comment on above: Order Comment: Speci men Type: BLOOD SPECIMEN Ordering Facility: [facility] Address: [address] [place] [address] Performed By: #### 2 4323-8 #### [facility] CLIA [id number] [address] [place] [address] [place] Chloride [Moles/Vol] 103 mmol/L Normal 98-107 [facility] Comment on above: Order Comment: Speci men Type: BLOOD SPECIMEN Ordering Facility: [facility] Address: [address] [place] [address] Performed By: #### 2 4323-8 #### [facility] CLIA [id number] [address] [place] [address] [place] CO2 [Moles/Vol] 26 mmol/L Normal 22-30 [facility] Comment on above: Order Comment: Speci men Type: BLOOD SPECIMEN Ordering Facility: [facility] Address: [address] [place], [place] [id number] Performed By: #### 2 4323-8 #### [facility] CLIA [id number] [address] [place] [address] [place] Creatinine [Mass/Vol] 0.78 mg/dL Normal 0.58-0.96 [facility] Comment on above: Order Comment: Maryann patel Type: BLOOD SPECIMEN Ordering Facility: [facility] Address: [address] [place] [address] Performed By: #### 2 4323-8 #### [facility] CLIA [id number] [address] [place] [address] [place] Creatinine and Glomerular filtration rate.predicted panel (S/P/Bld) 75 mL/min/1.73m??? Normal >=60 [facility] Comment on above: Order Comment: Maryann patel Type: BLOOD SPECIMEN Ordering Facility: [facility] Address: [address] [place] [address] Result Comment: Kallie mated Glomerular Filtration Rate (eGFR) is calculated using the 2020 CKD-EPI creatinine equation. This equation utilizes serum creatinine, sex, and age as parameters. The creatinine assay has traceable calibration to isotope dilution-mass spectrometry. Refer to KDIGO guidelines for clinical interpretation. In patients with unstable renal function, e.g. those with acute kidney injury, the eGFR may not accurately reflect actual GFR. Performed By: #### 2 4323-8 #### [facility] CLIA [id number] [address] [place] [address] [place] Glucose [Mass/Vol] 94 mg/dL Normal 74-99 [facility] Comment on above: Order Comment: Maryann patel Type: BLOOD SPECIMEN Ordering Facility: [facility] Address: [address] [place] [address] Result Comment: The [place] [employer] (ADA) provides guidance for cutoff values for fasting glucose and random glucose. The ADA defines fasting as no caloric intake for at least 8 hours. Fasting plasma glucose results between 100 to 125 mg/dL indicate increased risk for diabetes (prediabetes). Fasting plasma glucose results greater than or equal to 126 mg/dL meet the criteria for diagnosis of diabetes. In the absence of unequivocal hyperglycemia, results should be confirmed by repeat testing. In a patient with classic symptoms of hyperglycemia or hyperglycemic crisis, random plasma glucose results greater than or equal to 200 mg/dL meet the criteria for diagnosis of diabetes. Reference: Standards of Medical Care in Diabetes 2016, [place] [employer]. Diabetes Care. 2016.39(Suppl 1). Performed By: #### 2 4323-8 #### [facility] CLIA [id number] [address] [place] [address] [place] Potassium [Moles/Vol] 4.5 mmol/L Normal 3.7-5.1 [facility] Comment on above: Order Comment: Speci men Type: BLOOD SPECIMEN Ordering Facility: [facility] Address: [address] [place] [address] Performed By: #### 2 4323-8 #### [facility] CLIA [id number] [address] [place] [address] [place] Protein [Mass/Vol] 6.2 g/dL Low 6.3-8.0 [facility] Comment on above: Order Comment: Speci men Type: BLOOD SPECIMEN Ordering Facility: [facility] Address: [address] [place] [address] Performed By: #### 2 4323-8 #### [facility] CLIA [id number] [address] [place] [address] [place] Sodium [Moles/Vol] 142 mmol/L Normal 136-144 [facility] Comment on above: Order Comment: Speci men Type: BLOOD SPECIMEN Ordering Facility: [facility] Address: [address] [place] [address] Performed By: #### 2 4323-8 #### [facility] CLIA [id number] [address] [place] [address] [place] Urea nitrogen [Mass/Vol] 18 mg/dL Normal 7-21 [facility] Comment on above: Order Comment: Speci men Type: BLOOD SPECIMEN Ordering Facility: [facility] Address: [address] [place] [address] Performed By: #### 2 4323-8 #### [facility] CLIA [id number] [address] [place] [address] OF [facility] Emergency Department Summary on 10-13-2023 Emergency Department Summary [facility] Medical Records Department [address] [place] [address] Emergency Department Summary 10/13/23 MR#: [id number] Acct: [id number] Name: HUYEN VALERIO I Rep #: [id number] : 1940 83 From: Roosevelt Zimmerman MD PCP: Milagros Hunter [employer]C Status:REG ER Location: ED HPI HPI - Fall History of Present Illness Chief Complaint: Fall Narrative Narrative: 83-year-old female presents via EMS status post fall in the parking lot. Her daughter is with her and states that they were coming out of the [employer] store. She stepped down off a curb. She fell forward onto her face, and left shoulder. She complains of headache on the left side, laceration to the left anglican, no neck pain but has left shoulder pain. She is right-hand dominant. She has had bilateral total knee arthroplasties and complains of left knee pain as well. There was no loss of consciousness with the fall. She is unsure of her last tetanus immunization. [facility] Medical History Zenkers diverticulum Back pain Kidney stones Irregular heart beat Closed head injury Fracture of hip, right, closed Wears glasses Wears contact lenses Post-menopausal History of steroid therapy Arthritis Rheumatoid arthritis Easy bruising Injury of back Back pain History of hiatal hernia Gastric reflux Sleep apnea History of pain when walking Normal stress echocardiogram Cardiology follow-up encounter History of irregular heartbeat MVP (mitral valve prolapse) Premature ventricular contraction Premature atrial contraction Supraventricular tachycardia Home Medications ???Medication ???Instructions ???Recorded ???Last Taken ???Type methotrexate sodium (PF) 25 mg/mL 75 mg IM TH Check with primary 11/29/13 11/20/22 History injection solution doctor prednisone 5 mg tablet 5 mg PO DAILY Check with primary 11/29/13 11/25/22 History doctor alendronate 70 mg tablet (Fosamax) 70 mg PO QWEEK Check with primary 11/10/18 11/26/22 History doctor folic acid 400 mcg tablet 0.8 mg PO DAILY@0800 Supplement 11/10/18 Unknown History multivitamin 3 tab PO DAILY Supplement 06/25/21 11/24/22 History tofacitinib 5 mg tablet (Xeljanz) 5 mg PO BID Check with primary 06/25/21 11/27/22 History doctor ascorbic acid (vitamin C) 500 mg 500 mg PO DAILY Supplement 05/27/22 11/24/22 History capsule acetaminophen 500 mg tablet 1,000 mg PO Q8 Pain 10/02/22 11/27/22 History lansoprazole 30 mg capsule,delayed 30 mg PO DAILY Check with primary 10/02/22 11/27/22 History release (Prevacid) doctor tramadol 50 mg tablet 50 mg PO Q8H PRN pain #3 tabs 10/02/22 11/27/22 Rx buprenorphine HCl 75 mcg buccal 75 mcg buccal Q12H 03/17/23 Unknown History film ([place]) cholecalciferol (vitamin D3) 50 125 mcg PO DAILY Supplement 03/17/23 Unknown History mcg (2,000 unit) capsule zinc sulfate 66 mg tablet (Zinc-15) 66 mg PO DAILY 03/17/23 Unknown History hydrocodone-acetaminophen 5-325mg 1 tab PO Q6H PRN PRN Pain 3 days 10/13/23 Unknown Rx 5mg-325mg #12 TABLETS Allergy/AdvReac Type Severity Reaction Status Date / Time amoxicillin trihydrate (From Allergy Intermediate Rash Verified 06/30/23 09:34 Trimox) Penicillins Allergy Swelling Verified 06/30/23 09:34 Family History Father CAD (coronary artery disease) CVA (cerebral vascular accident) Hypertension Heart disease Brother CAD (coronary artery disease) Mother Osteoporosis Surgical History History of right hip hemiarthroplasty History of removal of ovarian cyst History of incisional hernia repair Hx of kyphoplasty History of cardiac radiofrequency ablation ( 2000) Hx of cataract surgery Hx of hernia repair H/O total knee replacement Social History household members: none Smoking Status: Never smoker alcohol intake: never substance use type: does not use what type of physical activity do you participate in: none ROS ROS ED ROS Narrative Constitutional: No fever, no chills. HEENT: No sore throat. No neck pain. No loss of vision. No rhinorrhea. Laceration to left anglican. Cardiovascular: No chest pain. No palpitations. Right pedal edema. Respiratory: No cough, no shortness of breath. Abdominal: No abdominal pain. No nausea. No vomiting. Genitourinary: No dysuria. No hematuria. Musculoskeletal: No myalgias. Left shoulder pain, left knee pain Neurologic: Positive left-sided headaches. No dizziness. No lightheadedness. Skin: No rash. No change in color. Psychiatric: No depression. No anxiety. EXAM Physical Exam Narrative Exam Narrative: Afebrile. Vital signs noted. GCS 15. ABCs intact. HEENT: Normoceph (more content not included)... Normal [facility] Knee 4 or More Viewson 10-12 Knee 4 or More Views [facility] Imaging Services [address] [place] [address] [id number] Knee 4 or More Views MR#: [id number] Acct: [id number] Name: HUYEN VALERIO I Rep #: [id number] : 1940 F 83 From: Riley Miller DO PCP: YENIFER Barrera Status: REG ER Study: Knee 4 or More Views Date of Exam: 10/13/23 Exam# [id number] Ordering Dr: Roosevelt Zimmerman MD [id number] INDICATION: Trauma EXAMINATION/TECHNIQUE: X-RAY - LEFT XR Knee Complete 4 Views or More 4 VIEWS COMPARISON: FINDINGS: Status post total knee replacement. The hardware components are well aligned.. No acute bony injury. Vascular calcifications are present. RAD/Knee 4 or More Views IMPRESSION: Total knee placement. No acute bony injury. Electronically Signed: Riley Miller DO at 16:39 EDT , CC: YENIFER Hunter; Dr. Roosevelt Zimmerman MD Hydro Operator: Signed Normal [facility] Shoulder min 2 Viewson 10-12 Shoulder min 2 Views [facility] Imaging Services [address] [place] [address] Shoulder min 2 Views MR#: [id number] Acct: [id number] Name: HUYEN VALERIO I Rep #: [id number] : 1940 F 83 From: Riley Miller DO PCP: YENIFER Barrera Status: REG ER Study: Shoulder min 2 Views Date of Exam: 10/13/23 Exam# [id number] Ordering Dr: Roosevelt Zimmerman MD [id number] INDICATION: trauma EXAMINATION/TECHNIQUE: X-RAY - LEFT XR Shoulder Min 2 Views 2 VIEWS COMPARISON: FINDINGS: SOFT TISSUES: No soft tissue swelling or gas. No radiopaque foreign body. BONES/JOINTS: No acute fracture or subluxation.. Degenerative hypertrophy at the acromioclavicular articulation.. No sclerotic or destructive changes observed. RAD/Shoulder min 2 Views IMPRESSION: Degenerative changes. Electronically Signed: Riley Miller DO at 16:42 EDT , CC: YENIFER Hunter; Dr. Roosevelt Zimmerman MD Hydro Operator: Signed Normal [facility] Venous Duplex US, Unilateral on 10-13-2023 Venous Duplex US, Unilateral [facility] [address] [place] [address] Venous Duplex US, Unilateral 10/13/23 1544 MR#: [id number] Acct: [id number] Name: HUYEN VALERIO I Rep #: [id number] : 1940 83 From: Parviz Mandujano MD Attending Dr: Status: REG ER Ordering Dr: Roosevelt Zimmerman MD Date: 10/13/23 Location: ED Sex: F C Admitted: Reason For Study: Pain and swelling RIGHT LEFT GSV is normal. CFV is compressible, spontaneous, phasic, CFV is compressible, spontaneous, phasic, competent, and demonstrates normal competent and demonstrates normal augmentation. augmentation. FV is compressible, spontaneous, phasic, competent and demonstrates normal augmentation. POP V is compressible, spontaneous, phasic, competent and demonstrates normal augmentation. T/P Trunk is compressible. PTV is compressible. RT PerV is compressible. Procedure This is a venous duplex using B-mode, color flow and spectral Doppler. Exam performed in department. A preliminary report was called and/or faxed to Dr. Zimmerman. VL/Venous Duplex US, Unilateral Interpretation Summary Deep veins of the right lower extremity are patent and compressible segmentally. There is no evidence of right lower extremity deep vein thrombosis. The right great saphenous vein appears patent and compressible segmentally. Ordering Physician: Roosevelt Zimmerman Referring Physician: Milagros Hunter Performed By: Binta Levy T 10/13/23 1632 Date Parviz Mandujano MD CC: LEAD PROGRAMMER-C Milagros Hunter; Dr. Roosevelt Zimmerman MD Date Dictated: 10/13/23 1544 Date Transcribed: 10/13/23 0371 Hydro Operator: Signed Normal [facility] Laboratory - Drug toxicology Ordered By: Mylene Hoskins on 09-08-2023 Amphetamines Ql (U) Negative <1000 ng/mL [facility] Benzodiazepines Ql (U) Negative < 200 ng/mL [facility] Cannabinoids Screen Ql (U) Negative < 50 ng/mL [facility] Cocaine Ql (U) Negative < 300 ng/mL [facility] Opiates Ql (U) Negative < 300 ng/mL [facility] No Panel InformationOrdered By: Mylene Hoskins on 09-08-2023 MDMA (Ecstasy) Screen Negative < 500 ng/mL [facility] Miscellaneous Test See comment [facility] Comment on above: TEST RESULTS LIMITST ramadol POSITIVE [id number] Tramadol Conf, MS, UR >59033 ng/mL UFLYSE=604 TESTING PERFORMED AT [facility]. ORIGINAL REPORT ON FILE IN LAB CONTAINS ADDITIONAL TEST SITE INFORMATION. Urine Barbiturates Screen Negative < 200 ng/mL [facility] Urine Buprenorphine Screen Negative <10 ng/mL [facility] Urine Drug Screen Comment [facility] Comment on above: *Additional results available. Contact laboratory/see report*CONFIRMATORY TESTING FOR ALL POSITIVE URINE DRUG SCREENRESULTS WILL ONLY BE SENT OUT UPON PHYSICIAN ORDER. The results of Urine Drug Screen methods provide only preliminary analytical test results. A more specific alternate chemical method must be used in order to obtain a confirmed analytical result. Gas chromatography/mass spectrometery (GC/MS) is the preferred confirmatory method. Clinical consideration and professional judgement should be applied to any drug of abuse test result, particularly whenpreliminary positive results are used. Urine Methadone Screen Negative < 300 ng/mL [facility] Urine phencyclidine (PCP) de tectionOrdered By: Mylene Hoskins on 09-08-2023 Phencyclidine Ql (U) Negative < 25 ng/mL [facility] CBC W Auto Differential pane l (Bld)on 07-08-2023 Basophils (Bld) [#/Vol] 0.06 10*3/uL Normal <0.11 [facility] Comment on above: Order Comment: Speci men Type: BLOOD SPECIMEN Ordering Facility: [facility] Address: [address] [place] [address] Performed By: #### 5 7021-8 #### [facility] CLIA [id number] [address] [place] [address] [place] Basophils/100 WBC (Bld) 0.7 % Normal [facility] Comment on above: Order Comment: Speci men Type: BLOOD SPECIMEN Ordering Facility: [facility] Address: [address] [place] [address] Performed By: #### 5 7021-8 #### [facility] CLIA [id number] [address] [place] [address] [place] Differential cell count method Nom (Bld) Auto Normal [facility] Comment on above: Order Comment: Speci men Type: BLOOD SPECIMEN Ordering Facility: [facility] Address: [address] [place] [address] Performed By: #### 5 7021-8 #### [facility] CLIA [id number] [address] [place] [address] [place] Eosinophils (Bld) [#/Vol] 0.10 10*3/uL Normal <0.46 [facility] Comment on above: Order Comment: Speci men Type: BLOOD SPECIMEN Ordering Facility: [facility] Address: [address] [place] [address] Performed By: #### 5 7021-8 #### [facility] CLIA [id number] [address] [place] [address] [place] Eosinophils/100 WBC (Bld) 1.2 % Normal [facility] Comment on above: Order Comment: Speci men Type: BLOOD SPECIMEN Ordering Facility: [facility] Address: [address] [place] [address] Performed By: #### 5 7021-8 #### [facility] CLIA [id number] [address] [place] [address] [place] Erythrocyte distribution width (RBC) [Ratio] 16.3 % High 11.5-15.0 [facility] Comment on above: Order Comment: Speci men Type: BLOOD SPECIMEN Ordering Facility: [facility] Address: [address] [place] [address] Performed By: #### 5 7021-8 #### [facility] CLIA [id number] [address] [place] [address] [place] Hematocrit (Bld) [Volume fraction] 38.6 % Normal 36.0-46.0 [facility] Comment on above: Order Comment: Speci men Type: BLOOD SPECIMEN Ordering Facility: [facility] Address: [address] [place] [address] Performed By: #### 5 7021-8 #### [facility] CLIA [id number] [address] [place] [address] [place] Hemoglobin (Bld) [Mass/Vol] 12.0 g/dL Normal 11.5-15.5 [facility] Comment on above: Order Comment: Speci men Type: BLOOD SPECIMEN Ordering Facility: [facility] Address: [address] [place] [address] Performed By: #### 5 7021-8 #### [facility] CLIA [id number] [address] [place] [address] [place] Immature granulocytes (Bld) [#/Vol] 0.04 10*3/uL Normal <0.10 [facility] Comment on above: Order Comment: Speci men Type: BLOOD SPECIMEN Ordering Facility: [facility] Address: [address] [place] [address] Performed By: #### 5 7021-8 #### [facility] CLIA [id number] [address] [place] [address] [place] Immature granulocytes/100 WBC (Bld) 0.5 % Normal [facility] Comment on above: Order Comment: Speci men Type: BLOOD SPECIMEN Ordering Facility: [facility] Address: [address] [place] [address] Performed By: #### 5 7021-8 #### [facility] CLIA [id number] [address] [place] [address] [place] Lymphocytes (Bld) [#/Vol] 0.74 10*3/uL Low 1.00-4.00 [facility] Comment on above: Order Comment: Speci men Type: BLOOD SPECIMEN Ordering Facility: [facility] Address: [address] [place] [address] Performed By: #### 5 7021-8 #### [facility] IA [id number] [address] [place] [address] [place] Lymphocytes/100 WBC (Bld) 8.7 % Normal [facility] Comment on above: Order Comment: Speci men Type: BLOOD SPECIMEN Ordering Facility: [facility] Address: [address] [place] [address] Performed By: #### 5 7021-8 #### [facility] [place] [id number] [address] [place] [address] [place] MCH (RBC) [Entitic mass] 29.1 pg Normal 26.0-34.0 [facility] Comment on above: Order Comment: Speci men Type: BLOOD SPECIMEN Ordering Facility: [facility] Address: [address] [place] [address] Performed By: #### 5 7021-8 #### [facility] [place] [id number] [address] [place] [address] [place] MCHC (RBC) [Mass/Vol] 31.1 g/dL Normal 30.5-36.0 [facility] Comment on above: Order Comment: Speci men Type: BLOOD SPECIMEN Ordering Facility: [facility] Address: [address] [place] [address] Performed By: #### 5 7021-8 #### [facility] CLIA [id number] [address] [place] [address] [place] MCV (RBC) [Entitic vol] 93.5 fL Normal 80.0-100.0 [facility] Comment on above: Order Comment: Speci men Type: BLOOD SPECIMEN Ordering Facility: [facility] Address: [address] [place] [address] Performed By: #### 5 7021-8 #### [facility] CLIA [id number] [address] [place] [address] [place] Monocytes (Bld) [#/Vol] 0.64 10*3/uL Normal <0.87 [facility] Comment on above: Order Comment: Speci men Type: BLOOD SPECIMEN Ordering Facility: [facility] Address: [address] [place] [address] Performed By: #### 5 7021-8 #### [facility] CLIA [id number] [address] [place] [address] [place] Monocytes/100 WBC (Bld) 7.5 % Normal [facility] Comment on above: Order Comment: Speci men Type: BLOOD SPECIMEN Ordering Facility: [facility] Address: [address] [place] [address] Performed By: #### 5 7021-8 #### [facility] CLIA [id number] [address] [place] [address] [place] Neutrophils (Bld) [#/Vol] 6.92 10*3/uL Normal 1.45-7.50 [facility] Comment on above: Order Comment: Speci men Type: BLOOD SPECIMEN Ordering Facility: [facility] Address: [address] [place] [address] Performed By: #### 5 7021-8 #### [facility] CLIA [id number] [address] [place] [address] [place] Neutrophils/100 WBC (Bld) 81.4 % Normal [facility] Comment on above: Order Comment: Speci men Type: BLOOD SPECIMEN Ordering Facility: [facility] Address: [address] [place] [address] Performed By: #### 5 7021-8 #### [facility] CLIA [id number] [address] [place] [address] [place] Nucleated RBC (Bld) [#/Vol] 10*3/uL Normal <0.01 [facility] Comment on above: Order Comment: Speci men Type: BLOOD SPECIMEN Ordering Facility: [facility] Address: [address] [place] [address] Performed By: #### 5 7021-8 #### [facility] CLIA [id number] [address] [place] [address] [place] Nucleated RBC/100 WBC (Bld) [Ratio] 0.0 /100 WBC Normal [facility] Comment on above: Order Comment: Speci men Type: BLOOD SPECIMEN Ordering Facility: [facility] Address: [address] [place] [address] Performed By: #### 5 7021-8 #### [facility] CLIA [id number] [address] [place] [address] [place] Platelet mean volume (Bld) [Entitic vol] 11.3 fL Normal 9.0-12.7 [facility] Comment on above: Order Comment: Speci men Type: BLOOD SPECIMEN Ordering Facility: [facility] Address: [address] [place] [address] Performed By: #### 5 7021-8 #### [facility] CLIA [id number] [address] [place] [address] [place] Platelets (Bld) [#/Vol] 389 10*3/uL Normal 150-400 [facility] Comment on above: Order Comment: Speci men Type: BLOOD SPECIMEN Ordering Facility: [facility] Address: [address] [place] [address] Performed By: #### 5 7021-8 #### [facility] CLIA [id number] [address] [place] [address] [place] RBC (Bld) [#/Vol] 4.13 10*6/uL Normal 3.90-5.20 [facility] Comment on above: Order Comment: Speci men Type: BLOOD SPECIMEN Ordering Facility: [facility] Address: [address] [place] [address] Performed By: #### 5 7021-8 #### [facility] CLIA [id number] [address] [place] [address] [place] WBC (Bld) [#/Vol] 8.50 10*3/uL Normal 3.70-11.00 [facility] Comment on above: Order Comment: Speci men Type: BLOOD SPECIMEN Ordering Facility: [facility] Address: [address] [place] [address] Performed By: #### 5 7021-8 #### [facility] CLIA [id number] [address] [place] [address] [place] Comprehensive metabolic 2000 panelon 07-08-2023 Albumin [Mass/Vol] 4.0 g/dL Normal 3.9-4.9 [facility] Comment on above: Order Comment: Speci men Type: BLOOD SPECIMEN Ordering Facility: [facility] Address: [address] [place] [address] Performed By: #### 2 4323-8 #### [facility] CLIA [id number] [address] [place] [address] [place] ALP [Catalytic activity/Vol] 125 U/L High 34-123 [facility] Comment on above: Order Comment: Speci men Type: BLOOD SPECIMEN Ordering Facility: [facility] Address: [address] [place] [address] Performed By: #### 2 4323-8 #### [facility] CLIA [id number] [address] [place] [address] [place] ALT [Catalytic activity/Vol] 10 U/L Normal 7-38 [facility] Comment on above: Order Comment: Speci men Type: BLOOD SPECIMEN Ordering Facility: [facility] Address: [address] [place] [address] Performed By: #### 2 4323-8 #### [facility] CLIA [id number] [address] [place] [address] [place] Anion gap [Moles/Vol] 11 mmol/L Normal 9-18 [facility] Comment on above: Order Comment: Speci men Type: BLOOD SPECIMEN Ordering Facility: [facility] Address: [address] [place] [address] Performed By: #### 2 4323-8 #### [facility] CLIA [id number] [address] [place] [address] [place] AST [Catalytic activity/Vol] 36 U/L High 13-35 [facility] Comment on above: Order Comment: Speci men Type: BLOOD SPECIMEN Ordering Facility: [facility] Address: [address] [place] [address] Performed By: #### 2 4323-8 #### [facility] CLIA [id number] [address] [place] [address] [place] Bilirubin [Mass/Vol] 0.3 mg/dL Normal 0.2-1.3 [facility] Comment on above: Order Comment: Speci men Type: BLOOD SPECIMEN Ordering Facility: [facility] Address: [address] [place] [address] Performed By: #### 2 4323-8 #### [facility] CLIA [id number] [address] [place] [id number] [place] Calcium [Mass/Vol] 10.0 mg/dL Normal 8.5-10.2 [facility] Comment on above: Order Comment: Speci men Type: BLOOD SPECIMEN Ordering Facility: [facility] Address: [address] [place] [address] Performed By: #### 2 4323-8 #### [facility] CLIA [id number] [address] [place] [address] [place] Chloride [Moles/Vol] 102 mmol/L Normal 97-105 [facility] Comment on above: Order Comment: Speci men Type: BLOOD SPECIMEN Ordering Facility: [facility] Address: [address] [place] [address] Performed By: #### 2 4323-8 #### [facility] CLIA [id number] [address] [place] [address] [place] CO2 [Moles/Vol] 29 mmol/L Normal 22-30 [facility] Comment on above: Order Comment: Speci men Type: BLOOD SPECIMEN Ordering Facility: [facility] Address: [address] [place] [address] Performed By: #### 2 4323-8 #### [facility] CLIA [id number] [address] [place] [address] [place] Creatinine [Mass/Vol] 0.63 mg/dL Normal 0.58-0.96 [facility] Comment on above: Order Comment: Speci men Type: BLOOD SPECIMEN Ordering Facility: [facility] Address: [address] [place] [address] Performed By: #### 2 4323-8 #### [facility] CLIA [id number] [address] [place] [address] [place] Creatinine and Glomerular filtration rate.predicted panel (S/P/Bld) 88 mL/min/1.73m??? Normal >=60 [facility] Comment on above: Order Comment: Speci men Type: BLOOD SPECIMEN Ordering Facility: [facility] Address: [address] [place] [address] Result Comment: Kallie mated Glomerular Filtration Rate (eGFR) is calculated using the 2020 CKD-EPI creatinine equation. This equation utilizes serum creatinine, sex, and age as parameters. The creatinine assay has traceable calibration to isotope dilution-mass spectrometry. Refer to KDIGO guidelines for clinical interpretation. In patients with unstable renal function, e.g. those with acute kidney injury, the eGFR may not accurately reflect actual GFR. Performed By: #### 2 4323-8 #### [facility] CLIA [id number] [address] [place] [address] [place] Glucose [Mass/Vol] 100 mg/dL High 74-99 [facility] Comment on above: Order Comment: Maryann patel Type: BLOOD SPECIMEN Ordering Facility: [facility] Address: [address] [place] [address] Result Comment: The [place] [employer] (ADA) provides guidance for cutoff values for fasting glucose and random glucose. The ADA defines fasting as no caloric intake for at least 8 hours. Fasting plasma glucose results between 100 to 125 mg/dL indicate increased risk for diabetes (prediabetes). Fasting plasma glucose results greater than or equal to 126 mg/dL meet the criteria for diagnosis of diabetes. In the absence of unequivocal hyperglycemia, results should be confirmed by repeat testing. In a patient with classic symptoms of hyperglycemia or hyperglycemic crisis, random plasma glucose results greater than or equal to 200 mg/dL meet the criteria for diagnosis of diabetes. Reference: Standards of Medical Care in Diabetes 2016, [place] [employer]. Diabetes Care. 2016.39(Suppl 1). Performed By: #### 2 4323-8 #### [facility] CLIA [id number] [address] [place], [place] [address] [place] Potassium [Moles/Vol] 4.5 mmol/L Normal 3.7-5.1 [facility] Comment on above: Order Comment: Maryann patel Type: BLOOD SPECIMEN Ordering Facility: [facility] Address: [address] [place], [place] [id number] Performed By: #### 2 4323-8 #### [facility] CLIA [id number] [address] [address] [place] Protein [Mass/Vol] 6.9 g/dL Normal 6.3-8.0 [facility] Comment on above: Order Comment: Maryann patel Type: BLOOD SPECIMEN Ordering Facility: [facility] Address: [address] [place] [address] Performed By: #### 2 4323-8 #### [facility] CLIA [id number] [address] [place] [address] [place] Sodium [Moles/Vol] 142 mmol/L Normal 136-144 [facility] Comment on above: Order Comment: Skipi men Type: BLOOD SPECIMEN Ordering Facility: [facility] Address: [address] [place] [address] Performed By: #### 2 4323-8 #### [facility] CLIA [id number] [address] [place] [address] [place] Urea nitrogen [Mass/Vol] 10 mg/dL Normal 7-21 [facility] Comment on above: Order Comment: Skipi jorge Type: BLOOD SPECIMEN Ordering Facility: [facility] Address: [address] [place] [address] Performed By: #### 2 4323-8 #### [facility] CLIA [id number] [address] [place] [address] [place] BLOOD TB SCREENon 04-14-2023 M. tuberculosis tuberculin stim IFN-g Ql (Bld) Negative Normal [facility] Comment on above: Order Comment: Maryann patel Type: BLOOD SPECIMEN Ordering Facility: [facility] Address: [address] [place] [address] Performed By: #### I NFTBP #### [facility] CLIA [id number] [address] [place] [address] [place] MITOGEN MINUS NIL 2.59 IU/mL Normal >=0.50 [facility] Comment on above: Order Comment: Maryann patel Type: BLOOD SPECIMEN Ordering Facility: [facility] Address: [address] [place] [address] Performed By: #### I NFTBP #### [facility] CLIA [id number] [address] [place] [address] [place] TB GAMMA INTERPRETATION Infection with M. tuberculosis complex is unlikely. If latent tuberculosis infection is highly suspected, a negative result does not rule out the infection. Specimens from immunocompromised patients and those <5 years of age may show false negative results. In case of a contact investigation, please repeat 8-12 weeks after a known exposure. Normal [facility] Comment on above: Order Comment: Speci men Type: BLOOD SPECIMEN Ordering Facility: [facility] Address: [address] [place] [address] Performed By: #### I NFTBP #### [facility] CLIA [id number] [address] [place] [address] [place] TB NIL 0.09 IU/mL Normal <=8.00 [facility] Comment on above: Order Comment: Speci men Type: BLOOD SPECIMEN Ordering Facility: [facility] Address: [address] [place] [address] Performed By: #### I NFTBP #### [facility] CLIA [id number] [address] [place] [address] [place] TB1 AG MINUS NIL <0.00 Normal <0.35 [facility] Comment on above: Order Comment: Speci men Type: BLOOD SPECIMEN Ordering Facility: [facility] Address: [address] [place] [address] Performed By: #### I NFTBP #### [facility] CLIA [id number] [address] [place] [address] [place] TB2 AG MINUS NIL <0.00 Normal <0.35 [facility] Comment on above: Order Comment: Speci men Type: BLOOD SPECIMEN Ordering Facility: [facility] Address: [address] [place] [address] Performed By: #### I NFTBP #### [facility] CLIA [id number] [address] [place] [address] [place] CBC W Auto Differential pane l (Bld)on 04-07-2023 Anisocytosis Ql (Bld) Present Normal [facility] Comment on above: Order Comment: Specpatrick patel Type: BLOOD SPECIMEN Ordering Facility: [facility] Address: [address] [place] [address] Performed By: #### 5 7021-8 #### [facility] CLIA [id number] [address] [place] [address] [place] Basophils (Bld) [#/Vol] 0.18 10*3/uL High <0.11 [facility] Comment on above: Order Comment: Maryann patel Type: BLOOD SPECIMEN Ordering Facility: [facility] Address: [address] [place] [address] Performed By: #### 5 7021-8 #### [facility] CLIA [id number] [address] [place] [address] [place] Basophils/100 WBC (Bld) 1.7 % Normal [facility] Comment on above: Order Comment: Maryann patel Type: BLOOD SPECIMEN Ordering Facility: [facility] Address: [address] [place] [address] Performed By: #### 5 7021-8 #### [facility] CLIA [id number] [address] [place] [address] [place] Differential cell count method Nom (Bld) Manual Normal [facility] Comment on above: Order Comment: Skipi jorge Type: BLOOD SPECIMEN Ordering Facility: [facility] Address: [address] [place] [address] Performed By: #### 5 7021-8 #### [facility] CLIA [id number] [address] [place] [address] [place] Eosinophils (Bld) [#/Vol] 0.09 10*3/uL Normal <0.46 [facility] Comment on above: Order Comment: Skipi men Type: BLOOD SPECIMEN Ordering Facility: [facility] Address: [address] [place] [address] Performed By: #### 5 7021-8 #### [facility] CLIA [id number] [address] [place] [address] [place] Eosinophils/100 WBC (Bld) 0.9 % Normal [facility] Comment on above: Order Comment: Speci men Type: BLOOD SPECIMEN Ordering Facility: [facility] Address: [address] [place] [address] Performed By: #### 5 7021-8 #### [facility] CLIA [id number] [address] [place] [address] [place] Erythrocyte distribution width (RBC) [Ratio] 15.4 % High 11.5-15.0 [facility] Comment on above: Order Comment: Speci men Type: BLOOD SPECIMEN Ordering Facility: [facility] Address: [address] [place] [address] Performed By: #### 5 7021-8 #### [facility] CLIA [id number] [address] [place] [address] [place] Hematocrit (Bld) [Volume fraction] 39.6 % Normal 36.0-46.0 [facility] Comment on above: Order Comment: Speci men Type: BLOOD SPECIMEN Ordering Facility: [facility] Address: [address] [place] [address] Performed By: #### 5 7021-8 #### [facility] CLIA [id number] [address] [place] [address] [place] Hemoglobin (Bld) [Mass/Vol] 12.0 g/dL Normal 11.5-15.5 [facility] Comment on above: Order Comment: Speci men Type: BLOOD SPECIMEN Ordering Facility: [facility] Address: [address] [place] [address] Performed By: #### 5 7021-8 #### [facility] CLIA [id number] [address] [place] [address] [place] Lymphocytes (Bld) [#/Vol] 2.23 10*3/uL Normal 1.00-4.00 [facility] Comment on above: Order Comment: Speci men Type: BLOOD SPECIMEN Ordering Facility: [facility] Address: [address] [place] [address] Performed By: #### 5 7021-8 #### [facility] CLIA [id number] [address] [place] [address] [place] Lymphocytes/100 WBC (Bld) 21.6 % Normal [facility] Comment on above: Order Comment: Speci men Type: BLOOD SPECIMEN Ordering Facility: [facility] Address: [address] [place] [address] Performed By: #### 5 7021-8 #### [facility] CLIA [id number] [address] [place] [address] [place] MCH (RBC) [Entitic mass] 29.9 pg Normal 26.0-34.0 [facility] Comment on above: Order Comment: Speci men Type: BLOOD SPECIMEN Ordering Facility: [facility] Address: [address] [place] [address] Performed By: #### 5 7021-8 #### [facility] CLIA [id number] [address] [place] [address] [place] MCHC (RBC) [Mass/Vol] 30.3 g/dL Low 30.5-36.0 [facility] Comment on above: Order Comment: Speci men Type: BLOOD SPECIMEN Ordering Facility: [facility] Address: [address] [place] [address] Performed By: #### 5 7021-8 #### [facility] CLIA [id number] [address] [place] [address] [place] MCV (RBC) [Entitic vol] 98.8 fL Normal 80.0-100.0 [facility] Comment on above: Order Comment: Speci men Type: BLOOD SPECIMEN Ordering Facility: [facility] Address: [address] [place] [address] Performed By: #### 5 7021-8 #### [facility] CLIA [id number] [address] [place] [address] [place] Monocytes (Bld) [#/Vol] 1.96 10*3/uL High <0.87 [facility] Comment on above: Order Comment: Speci men Type: BLOOD SPECIMEN Ordering Facility: [facility] Address: [address] [place] [address] Performed By: #### 5 7021-8 #### [facility] CLIA [id number] [address] [place] [address] [place] Monocytes/100 WBC (Bld) 19.0 % Normal [facility] Comment on above: Order Comment: Speci men Type: BLOOD SPECIMEN Ordering Facility: [facility] Address: [address] [place] [address] Performed By: #### 5 7021-8 #### [facility] CLIA [id number] [address] [place] [address] [place] Neutrophils (Bld) [#/Vol] 5.87 10*3/uL Normal 1.45-7.50 [facility] Comment on above: Order Comment: Speci men Type: BLOOD SPECIMEN Ordering Facility: [facility] Address: [address] [place] [address] Performed By: #### 5 7021-8 #### [facility] CLIA [id number] [address] [place] [address] [place] Neutrophils/100 WBC (Bld) 56.8 % Normal [facility] Comment on above: Order Comment: Speci men Type: BLOOD SPECIMEN Ordering Facility: [facility] Address: [address] [place] [address] Performed By: #### 5 7021-8 #### [facility] CLIA [id number] [address] [place] [address] [place] Nucleated RBC (Bld) [#/Vol] 10*3/uL Normal <0.01 [facility] Comment on above: Order Comment: Speci men Type: BLOOD SPECIMEN Ordering Facility: [facility] Address: [address] [place] [address] Performed By: #### 5 7021-8 #### [facility] CLIA [id number] [address] [place] [address] [place] Nucleated RBC/100 WBC (Bld) [Ratio] 0.0 /100 WBC Normal [facility] Comment on above: Order Comment: Skipi men Type: BLOOD SPECIMEN Ordering Facility: [facility] Address: [address] [place] [address] Performed By: #### 5 7021-8 #### [facility] CLIA [id number] [address] [place] [address] [place] Ovalocytes LM Ql (Bld) Few Normal [facility] Comment on above: Order Comment: Skipi men Type: BLOOD SPECIMEN Ordering Facility: [facility] Address: [address] [place] [address] Performed By: #### 5 7021-8 #### [facility] CLIA [id number] [address] [place] [address] [place] Platelet mean volume (Bld) [Entitic vol] 11.7 fL Normal 9.0-12.7 [facility] Comment on above: Order Comment: Speci men Type: BLOOD SPECIMEN Ordering Facility: [facility] Address: [address] [place] [address] Performed By: #### 5 7021-8 #### [facility] CLIA [id number] [address] [place] [address] [place] Platelets (Bld) [#/Vol] 468 10*3/uL High 150-400 [facility] Comment on above: Order Comment: Speci men Type: BLOOD SPECIMEN Ordering Facility: [facility] Address: [address] [place] [address] Performed By: #### 5 7021-8 #### [facility] CLIA [id number] [address] [place] [address] [place] Platelets Estimate (Bld) [#/Vol] Increased Normal [facility] Comment on above: Order Comment: Speci men Type: BLOOD SPECIMEN Ordering Facility: [facility] Address: [address] [place] [address] Performed By: #### 5 7021-8 #### [facility] CLIA [id number] [address] [place] [address] [place] Polychromasia LM Ql (Bld) Slight Normal [facility] Comment on above: Order Comment: Speci men Type: BLOOD SPECIMEN Ordering Facility: [facility] Address: [address] [place] [address] Performed By: #### 5 7021-8 #### [facility] CLIA [id number] [address] [place] [address] [place] RBC (Bld) [#/Vol] 4.01 10*6/uL Normal 3.90-5.20 [facility] Comment on above: Order Comment: Speci men Type: BLOOD SPECIMEN Ordering Facility: [facility] Address: [address] [place] [address] Performed By: #### 5 7021-8 #### [facility] CLIA [id number] [address] [place] [address] [place] RED CELL MORPH Reviewed: see result s of individual morphologies Normal [facility] Comment on above: Order Comment: Speci men Type: BLOOD SPECIMEN Ordering Facility: [facility] Address: [address] [place] [address] Performed By: #### 5 7021-8 #### [facility] CLIA [id number] [address] [place] [address] [place] WBC (Bld) [#/Vol] 10.34 10*3/uL Normal 3.70-11.00 [facility] Comment on above: Order Comment: Speci men Type: BLOOD SPECIMEN Ordering Facility: [facility] Address: [address] [place] [address] Performed By: #### 5 7021-8 #### [facility] CLIA [id number] [address] [place] [address] [place] Comprehensive metabolic 2000 panelon 04-07-2023 Albumin [Mass/Vol] 3.8 g/dL Low 3.9-4.9 [facility] Comment on above: Order Comment: Speci men Type: BLOOD SPECIMEN Ordering Facility: [facility] Address: [address] [place] [address] Performed By: #### 2 4323-8 #### [facility] CLIA [id number] [address] [place] [address] [place] ALP [Catalytic activity/Vol] 121 U/L Normal 34-123 [facility] Comment on above: Order Comment: Speci men Type: BLOOD SPECIMEN Ordering Facility: [facility] Address: [address] [place] [address] Performed By: #### 2 4323-8 #### [facility] CLIA [id number] [address] [place] [address] [place] ALT [Catalytic activity/Vol] 10 U/L Normal 7-38 [facility] Comment on above: Order Comment: Speci men Type: BLOOD SPECIMEN Ordering Facility: [facility] Address: [address] [place] [address] Performed By: #### 2 4323-8 #### [facility] CLIA [id number] [address] [place] [address] [place] Anion gap [Moles/Vol] 14 mmol/L Normal 9-18 [facility] Comment on above: Order Comment: Speci men Type: BLOOD SPECIMEN Ordering Facility: [facility] Address: [address] [place] [address] Performed By: #### 2 4323-8 #### [facility] CLIA [id number] [address] [place] [address] [place] AST [Catalytic activity/Vol] 28 U/L Normal 13-35 [facility] Comment on above: Order Comment: Speci men Type: BLOOD SPECIMEN Ordering Facility: [facility] Address: [address] [place] [address] Performed By: #### 2 4323-8 #### [facility] CLIA [id number] [address] [place] [address] [place] Bilirubin [Mass/Vol] 0.4 mg/dL Normal 0.2-1.3 [facility] Comment on above: Order Comment: Speci men Type: BLOOD SPECIMEN Ordering Facility: [facility] Address: [address] [place] [address] Performed By: #### 2 4323-8 #### [facility] CLIA [id number] [address] [place] [address] [place] Calcium [Mass/Vol] 10.2 mg/dL Normal 8.5-10.2 [facility] Comment on above: Order Comment: Speci men Type: BLOOD SPECIMEN Ordering Facility: [facility] Address: [address] [place] [address] Performed By: #### 2 4323-8 #### [facility] CLIA [id number] [address] [place] [address] [place] Chloride [Moles/Vol] 103 mmol/L Normal 97-105 [facility] Comment on above: Order Comment: Speci men Type: BLOOD SPECIMEN Ordering Facility: [facility] Address: [address] [place], [place] [id number] Performed By: #### 2 4323-8 #### [facility] CLIA [id number] [address] [place] [address] [place] CO2 [Moles/Vol] 25 mmol/L Normal 22-30 [facility] Comment on above: Order Comment: Speci men Type: BLOOD SPECIMEN Ordering Facility: [facility] Address: [address] [place] [address] Performed By: #### 2 4323-8 #### [facility] CLIA [id number] [address] [place] [address] [place] Creatinine [Mass/Vol] 0.71 mg/dL Normal 0.58-0.96 [facility] Comment on above: Order Comment: Speci men Type: BLOOD SPECIMEN Ordering Facility: [facility] Address: [address] [place] [address] Performed By: #### 2 4323-8 #### [facility] CLIA [id number] [address] [place] [address] [place] Creatinine and Glomerular filtration rate.predicted panel (S/P/Bld) 84 mL/min/1.73m??? Normal >=60 [facility] Comment on above: Order Comment: Speci men Type: BLOOD SPECIMEN Ordering Facility: [facility] Address: [address] [place] [address] Result Comment: Kallie mated Glomerular Filtration Rate (eGFR) is calculated using the 2020 CKD-EPI creatinine equation. This equation utilizes serum creatinine, sex, and age as parameters. The creatinine assay has traceable calibration to isotope dilution-mass spectrometry. Refer to KDIGO guidelines for clinical interpretation. In patients with unstable renal function, e.g. those with acute kidney injury, the eGFR may not accurately reflect actual GFR. Performed By: #### 2 4323-8 #### [facility] CLIA [id number] [address] [place] [address] [place] Glucose [Mass/Vol] 92 mg/dL Normal 74-99 [facility] Comment on above: Order Comment: Speci men Type: BLOOD SPECIMEN Ordering Facility: [facility] Address: [address] [place] [address] Result Comment: The [place] [employer] (ADA) provides guidance for cutoff values for fasting glucose and random glucose. The ADA defines fasting as no caloric intake for at least 8 hours. Fasting plasma glucose results between 100 to 125 mg/dL indicate increased risk for diabetes (prediabetes). Fasting plasma glucose results greater than or equal to 126 mg/dL meet the criteria for diagnosis of diabetes. In the absence of unequivocal hyperglycemia, results should be confirmed by repeat testing. In a patient with classic symptoms of hyperglycemia or hyperglycemic crisis, random plasma glucose results greater than or equal to 200 mg/dL meet the criteria for diagnosis of diabetes. Reference: Standards of Medical Care in Diabetes 2016, [place] [employer]. Diabetes Care. 2016.39(Suppl 1). Performed By: #### 2 4323-8 #### [facility] CLIA [id number] [address] [place] [address] [place] Potassium [Moles/Vol] 4.2 mmol/L Normal 3.7-5.1 [facility] Comment on above: Order Comment: Speci men Type: BLOOD SPECIMEN Ordering Facility: [facility] Address: [address] [place] [address] Performed By: #### 2 432-8 #### [facility] CLIA [id number] [address] [place] [address] [place] Protein [Mass/Vol] 7.3 g/dL Normal 6.3-8.0 [facility] Comment on above: Order Comment: Speci men Type: BLOOD SPECIMEN Ordering Facility: [facility] Address: [address] [place] [address] Performed By: #### 2 4323-8 #### [facility] CLIA [id number] [address] [place] [address] [place] Sodium [Moles/Vol] 142 mmol/L Normal 136-144 [facility] Comment on above: Order Comment: Speci men Type: BLOOD SPECIMEN Ordering Facility: [facility] Address: [address] [place] [address] Performed By: #### 2 4323-8 #### [facility] CLIA [id number] [address] [place] Urea nitrogen [Mass/Vol] 14 mg/dL Normal 7-21 [facility] Comment on above: Order Comment: Speci men Type: BLOOD SPECIMEN Ordering Facility: [facility] Address: [address] [place] [address] Performed By: #### 2 4323-8 #### [facility] CLIA [id number] [address] [place] [address] [place] [address] [place] CHEST 1 VIEWon 03-31-2023 CHEST 1 VIEW [place] [address] Patient: HUYEN VALERIO I. Phone#: : 1940 Age: 82 Gender: F Pt. Type: Out Account: [id number] Location: [facility] Ordering: NORA LEMUS Exam Date: 03/31/2023/16:50 Family Phys: KIYA GIBBONSER Charge Code: [id number] Physician: Carolina Order #: [id number] Dose#: PROCEDURE: X-RAY CHEST 1 VIEW COMPARISON: [facility], , CHEST 2 VIEWS, 03/13/2023, 11:20. INDICATIONS: Chest pain. FINDINGS: LUNGS: Additional changes are present. No significant pulmonary parenchymal abnormalities. VASCULATURE: Normal. Unremarkable pulmonary vasculature. CARDIAC: Mild worsening cardiomegaly. MEDIASTINUM: The aorta is ectatic. PLEURA: Normal. No effusion or pleural thickening. BONES: Degenerative changes of the spine are present. There is curvature to the right. Degenerative changes of the shoulders are present. OTHER: Negative. CONCLUSION: 1. There is no evidence of acute pulmonary abnormality. 2. Cardiomegaly. Dictated by: Kathy Gan MD on 03/31/2023 at 17:57 Approved by: Kathy Gan MD on 03/31/2023 at 17:[address] [facility] CHEST 2 VIEWSon 03-31-2023 CHEST 2 VIEWS [place] [id number] Patient: HUYEN VALERIO I. Phone#: : 1940 Age: 82 Gender: F Pt. Type: Out Account: [id number] Location: [facility] Ordering: NORA LEMUS Exam Date: 03/31/2023/20:55 Family Phys: KIYA SALAZAR Charge Code: [id number] Physician: Carolina Order #: [id number] Dose#: PROCEDURE: X-RAY CHEST 2 VIEWS COMPARISON: [facility], XR, CHEST 1 VIEW, 03/31/2023, 16:50. INDICATIONS: Chest pain. FINDINGS: LUNGS: Chronic interstitial changes are present. No significant pulmonary parenchymal abnormalities. VASCULATURE: Normal. Unremarkable pulmonary vasculature. CARDIAC: Mild stable cardiomegaly. MEDIASTINUM: Retrocardiac density is consistent with hiatal hernia. PLEURA: Normal. No effusion or pleural thickening. BONES: Thoracolumbar scoliosis and degenerative changes are present. Degenerative changes are present at the shoulders. There is loss of height of midthoracic vertebral bodies. Vertebroplasty is present. OTHER: Negative. CONCLUSION: 1. There is no evidence of acute pulmonary abnormality. 2. Probable hiatal hernia is present. Dictated by: Kathy Gan MD on 04/01/2023 at 8:43 Approved by: Kathy Gan MD on 04/01/2023 at 8:[address] [facility] HEMATOCRITon 03-31-2023 Hematocrit (Bld) [Volume fraction] 37.3 % Normal 34.0 - 46.[address] [facility] Comment on above: Result Comment: {HH] Performed By: #### 2 59126 #### [facility],[address] [place] [address] HEMOGLOBINon 03-31-2023 Hemoglobin (Bld) [Mass/Vol] 11.7 g/dL Low 12.0 - 16.[address] [facility] Comment on above: Result Comment: {HH] Performed By: #### 2 34508 #### [facility],[address] [place], [place] [id number] CBC + DIFFon 03-13-2023 Baso # 0.10 x10EE3/UL Normal 0.00 - 0.[address] [facility] Comment on above: Performed By: #### 2 73373 #### [facility],[address] [place] [address] Basophils/100 WBC (Bld) 0.6 % Normal 0.0 - 2.[address] [facility] Comment on above: Performed By: #### 2 83834 #### [facility],[address] [place] [address] CBC + DIFF Normal [facility] Comment on above: Result Comment: CBC- COMPLETE BLOOD COUNT Performed By: #### 2 72272 #### [place] [address] EO # 0.10 x10EE3/UL Normal 0.00 - 0.[address] [facility] Comment on above: Performed By: #### 2 30174 #### [place] [address] Eosinophils/100 WBC (Bld) 1.4 % Normal 0.0 - 7.[address] [facility] Comment on above: Performed By: #### 2 04154 #### [place] [address] Erythrocyte distribution width (RBC) [Ratio] 18.5 % High 12.0 - 15.[address] [facility] Comment on above: Performed By: #### 2 84977 #### [facility],[address] [place] [address] Hematocrit (Bld) [Volume fraction] 35.4 % Normal 34.0 - 46.[address] [facility] Comment on above: Performed By: #### 2 15738 #### [facility],[address] [place] [address] Hemoglobin (Bld) [Mass/Vol] 11.1 g/dL Low 12.0 - 16.[address] [facility] Comment on above: Performed By: #### 2 49365 #### [facility],[address] [place] [address] Lymph # 0.80 x10EE3/UL Normal 0.80 - 2.[address] [facility] Comment on above: Performed By: #### 2 06898 #### [facility],[address] [place] [address] Lymphocytes/100 WBC (Bld) 8.0 % Low 20.0 - 45.[address] [facility] Comment on above: Performed By: #### 2 59916 #### [facility],[address] [place] [address] MANUAL DIFF N/A Normal [facility] Comment on above: Performed By: #### 2 37356 #### [facility],[address] [place] [address] MCH (RBC) [Entitic mass] 31 pg Normal 27 - [address] [facility] Comment on above: Performed By: #### 2 56597 #### [facility],[address] [place] [address] MCHC 32 X10 3 Normal 32 - [address] [facility] Comment on above: Performed By: #### 2 30528 #### [facility],[address] [place] [address] MCV (RBC) [Entitic vol] 97 fL Normal 80 - [address] [facility] Comment on above: Performed By: #### 2 25893 #### [facility],[address] [place] [address] Fleming # 1.10 x10EE3/UL High 0.20 - 1.[address] [facility] Comment on above: Performed By: #### 2 39587 #### [facility],[address] [place] [address] MONOS % 11.6 % High 0.0 - 10.[address] [facility] Comment on above: Performed By: #### 2 67404 #### [facility],[address] [place], [place] [address] Morphology Sukhwinder (Bld) [Interp] N/A Normal [facility] Comment on above: Performed By: #### 2 29468 #### [facility],[address] [place] [address]269 Neut # 7.50 x10EE3/UL High 1.50 - 7.[address] [facility] Comment on above: Performed By: #### 2 29271 #### [address] [address] Neutrophils/100 WBC (Bld) 78.4 % High 46.0 - 76.[address] [facility] Comment on above: Performed By: #### 2 18588 #### [facility],[address] [place] [address]328 PLATELET 460 x10EE3/UL High 150 - [address] [facility] Comment on above: Performed By: #### 2 12146 #### [facility],[address] [place] [address]447 Platelet mean volume (Bld) [Entitic vol] 9.3 fL Normal 6.6 - 10.[address] [facility] Comment on above: Result Comment: AUTO MATED DIFFERENTIAL Performed By: #### 2 52994 #### [address] [address] RBC 3.65 x 10EE6/UL Low 4.10 - 5.[address] [facility] Comment on above: Performed By: #### 2 83830 #### [facility],[address] [place] [address]346 WBC 9.6 x 10EE3/UL Normal 4.5 - 10.[address] [facility] Comment on above: Performed By: #### 2 84955 #### [facility],[address] [place] [address] 39017 CHEST 2 VIEWSon 03-13-2023 CHEST 2 VIEWS [place] [address] Patient: HUYEN VALERIO I. Phone#: : 1940 Age: 82 Gender: F Pt. Type: Out Account: [id number] Location: 2 Ordering: NORA LEMUS Exam Date: 03/13/2023/11:20 Family Phys: MILAGROS HUNTER Charge Code: [id number] Physician: Carolina Order #: [id number] Dose#: PROCEDURE: X-RAY CHEST 2 VIEWS COMPARISON: [facility], XR, CHEST 2 VIEWS, 06/24/2018, 14:42. INDICATIONS: Cough. FINDINGS: LUNGS: Lungs are hyperinflated. Chronic interstitial changes are present. VASCULATURE: Normal. Unremarkable pulmonary vasculature. CARDIAC: Moderate stable cardiomegaly. MEDIASTINUM: The aorta is ectatic. PLEURA: Normal. No effusion or pleural thickening. BONES: Curvature of the thoracic spine to the right is present there has been kyphoplasty at an upper thoracic vertebral body. OTHER: Negative. CONCLUSION: 1. There is no evidence of acute pulmonary abnormality. Mild hyperinflation. Dictated by: Kathy Gan MD on 03/13/2023 at 11:46 Approved by: Kathy Gan MD on 03/13/2023 at 11:[address] [facility] CMP with eGFRon 03-13-2023 AGE 82 years Normal [facility] Comment on above: Performed By: #### 2 97083 #### [facility],[address] [place] [address]991 Albumin [Mass/Vol] 3.4 g/dL Normal 3.4 - 5.[address] [facility] Comment on above: Performed By: #### 2 96466 #### [facility],[address] [place] [address]009 Albumin/Globulin [Mass ratio] 1.0 {ratio} Normal 0.9 - 1.[address] [facility] Comment on above: Performed By: #### 2 37013 #### [facility],[address] [place] [address]9535 ALK PHOS 120 U/L High 46 - [address] [facility] Comment on above: Performed By: #### 2 42932 #### [facility],[address] [place] [address] 38260 ALT [Catalytic activity/Vol] 20 U/L Normal 14 - [address] [facility] Comment on above: Performed By: #### 2 07228 #### [facility],[address] [place] [address] 26777 Anion gap [Moles/Vol] 14 mmol/L Normal 10 - 20 [facility] Comment on above: Performed By: #### 2 20350 #### [facility],[address] [place] [address] 13288 AST [Catalytic activity/Vol] 39 U/L Normal 13 - [address] [facility] Comment on above: Performed By: #### 2 63908 #### [facility],[address] [place] [address] 92902 B/C RATIO 24 ratio Normal 0 - [address] [facility] Comment on above: Performed By: #### 2 05423 #### [facility],[address] [place] [address] 17607 Bilirubin [Mass/Vol] 0.3 mg/dL Normal 0.2 - 1.[address] [facility] Comment on above: Performed By: #### 2 09618 #### [facility],[address] [place] [address] Calcium [Mass/Vol] 9.1 mg/dL Normal 8.5 - 10.[address] [facility] Comment on above: Performed By: #### 2 93213 #### [facility],[address] [place] [address] 75516 Chloride [Moles/Vol] 107 mmol/L Normal 98 - [address] [facility] Comment on above: Performed By: #### 2 10679 #### [facility],[address] [place] [address] 53014 CMP with eGFR Normal [facility] Comment on above: Result Comment: COMP REHENSIVE METABOLIC PANEL Performed By: #### 2 07825 #### [facility],[address] [place] [address] 95454 CO2 [Moles/Vol] 28.0 mmol/L Normal 21.0 - 32.[address] [facility] Comment on above: Performed By: #### 2 52716 #### [facility],[address] [place] [address] 15335 Creatinine [Mass/Vol] 0.66 mg/dL Normal 0.55 - 1.[address] [facility] Comment on above: Performed By: #### 2 72568 #### [facility],[address] [place] [address]1915 GFR/1.73 sq M.predicted among non-blacks MDRD (S/P/Bld) [Vol rate/Area] mL/min/{1.73_m2} Normal 60 - [address] [facility] Comment on above: Performed By: #### 2 06482 #### [facility],[address] [place] [address] Result Comment: ACCO RDING TO THE NATIONAL KIDNEY DISEASE EDUCATION PROGRAM(NKDE), A NORMAL eGFR IS A VALUE GREATER THAN OR EQUAL TO 60 ML/MIN/1.73 SQ METERS. CHRONIC KIDNEY DISEASE: <60mL/MIN/1.73 SQ METERS KIDNEY FAILURE: <15mL/MIN/1.73 SQ METERS THIS TEST SHOULD ONLY BE USED FOR PATIENTS 18 YEARS OF AGE AND OLDER. Globulin (S) [Mass/Vol] 3.3 g/dL Normal 1.5 - 3.[address] [facility] Comment on above: Performed By: #### 2 50252 #### [facility],[address] [place] [address] 73599 Glucose [Mass/Vol] 102 mg/dL Normal 74 - [address] [facility] Comment on above: Performed By: #### 2 52960 #### [facility],[address] [place] [address] 40473 Potassium [Moles/Vol] 4.2 mmol/L Normal 3.5 - 5.1 [facility] Comment on above: Performed By: #### 2 68301 #### [address] [address] Protein [Mass/Vol] 6.7 g/dL Normal 6.4 - 8.[address] [facility] Comment on above: Performed By: #### 2 87882 #### [facility],[address] [place] [address] 41997 Sodium [Moles/Vol] 145 mmol/L Normal 136 - [address] [facility] Comment on above: Performed By: #### 2 96616 #### [place] [id number] Urea nitrogen [Mass/Vol] 16 mg/dL Normal 7 - [address] [facility] Comment on above: Performed By: #### 2 86470 #### [facility],[address] [place], [place] [address] CBC W Auto Differential pane l (Bld)on 12-30-2022 Basophils (Bld) [#/Vol] 0.06 10*3/uL Normal <0.11 [facility] Comment on above: Order Comment: Speci men Type: BLOOD SPECIMEN Ordering Facility: [facility] Address: [address] [place] [address] Performed By: #### 5 7021-8 #### [facility] CLIA [id number] [address] [place] [address] [place] Basophils/100 WBC (Bld) 0.4 % Normal [facility] Comment on above: Order Comment: Speci men Type: BLOOD SPECIMEN Ordering Facility: [facility] Address: [address] [place] [address] Performed By: #### 5 7021-8 #### [facility] CLIA [id number] [address] [place] [address] [place] Differential cell count method Nom (Bld) Auto Normal [facility] Comment on above: Order Comment: Speci men Type: BLOOD SPECIMEN Ordering Facility: [facility] Address: [address] [place] [address] Performed By: #### 5 7021-8 #### [facility] CLIA [id number] [address] [place] [address] [place] Eosinophils (Bld) [#/Vol] 0.08 10*3/uL Normal <0.46 [facility] Comment on above: Order Comment: Speci men Type: BLOOD SPECIMEN Ordering Facility: [facility] Address: [address] [place] [address] Performed By: #### 5 7021-8 #### [facility] CLIA [id number] [address] [place] [address] [place] Eosinophils/100 WBC (Bld) 0.5 % Normal [facility] Comment on above: Order Comment: Speci men Type: BLOOD SPECIMEN Ordering Facility: [facility] Address: [address] [place] [address] Performed By: #### 5 7021-8 #### [facility] CLIA [id number] [address] [place] [address] [place] Erythrocyte distribution width (RBC) [Ratio] 15.9 % High 11.5-15.0 [facility] Comment on above: Order Comment: Speci men Type: BLOOD SPECIMEN Ordering Facility: [facility] Address: [address] [place] [address] Performed By: #### 5 7021-8 #### [facility] CLIA [id number] [address] [place] [address] [place] Hematocrit (Bld) [Volume fraction] 37.0 % Normal 36.0-46.0 [facility] Comment on above: Order Comment: Speci men Type: BLOOD SPECIMEN Ordering Facility: [facility] Address: [address] [place] [address] Performed By: #### 5 7021-8 #### [facility] CLIA [id number] [address] [place] [address] [place] Hemoglobin (Bld) [Mass/Vol] 11.4 g/dL Low 11.5-15.5 [facility] Comment on above: Order Comment: Speci men Type: BLOOD SPECIMEN Ordering Facility: [facility] Address: [address] [place] [address] Performed By: #### 5 7021-8 #### [facility] CLIA [id number] [address] [place] [address] [place] Immature granulocytes (Bld) [#/Vol] 0.20 10*3/uL High <0.10 [facility] Comment on above: Order Comment: Speci men Type: BLOOD SPECIMEN Ordering Facility: [facility] Address: [address] [place] [address] Performed By: #### 5 7021-8 #### [facility] CLIA [id number] [address] [place] [address] [place] Immature granulocytes/100 WBC (Bld) 1.2 % Normal [facility] Comment on above: Order Comment: Speci men Type: BLOOD SPECIMEN Ordering Facility: [facility] Address: [address] [place] [address] Performed By: #### 5 7021-8 #### [facility] CLIA [id number] [address] [place] [address] [place] Lymphocytes (Bld) [#/Vol] 1.54 10*3/uL Normal 1.00-4.00 [facility] Comment on above: Order Comment: Speci men Type: BLOOD SPECIMEN Ordering Facility: [facility] Address: [address] [place] [address] Performed By: #### 5 7021-8 #### [facility] CLIA [id number] [address] [place] [address] [place] Lymphocytes/100 WBC (Bld) 9.0 % Normal [facility] Comment on above: Order Comment: Speci men Type: BLOOD SPECIMEN Ordering Facility: [facility] Address: [address] [place] [address] Performed By: #### 5 7021-8 #### [facility] CLIA [id number] [address] [place] [address] [place] MCH (RBC) [Entitic mass] 28.9 pg Normal 26.0-34.0 [facility] Comment on above: Order Comment: Speci men Type: BLOOD SPECIMEN Ordering Facility: [facility] Address: [address] [place] [address] Performed By: #### 5 7021-8 #### [facility] CLIA [id number] [address] [place] [address] [place] MCHC (RBC) [Mass/Vol] 30.8 g/dL Normal 30.5-36.0 [facility] Comment on above: Order Comment: Speci men Type: BLOOD SPECIMEN Ordering Facility: [facility] Address: [address] [place] [address] Performed By: #### 5 7021-8 #### [facility] CLIA [id number] [address] [place] [address] [place] MCV (RBC) [Entitic vol] 93.7 fL Normal 80.0-100.0 [facility] Comment on above: Order Comment: Speci men Type: BLOOD SPECIMEN Ordering Facility: [facility] Address: [address] [place] [address] Performed By: #### 5 7021-8 #### [facility] CLIA [id number] [address] [place] [address] [place] Monocytes (Bld) [#/Vol] 0.81 10*3/uL Normal <0.87 [facility] Comment on above: Order Comment: Speci men Type: BLOOD SPECIMEN Ordering Facility: [facility] Address: [address] [place] [address] Performed By: #### 5 7021-8 #### [facility] CLIA [id number] [address] [place], [place] [address] [place] Monocytes/100 WBC (Bld) 4.7 % Normal [facility] Comment on above: Order Comment: Speci men Type: BLOOD SPECIMEN Ordering Facility: [facility] Address: [address] [place] [address] Performed By: #### 5 7021-8 #### [facility] CLIA [id number] [address] [place] [address] [place] Neutrophils (Bld) [#/Vol] 14.40 10*3/uL High 1.45-7.50 [facility] Comment on above: Order Comment: Speci men Type: BLOOD SPECIMEN Ordering Facility: [facility] Address: [address] [place] [address] Performed By: #### 5 7021-8 #### [facility] CLIA [id number] [address] [place] [address] [place] Neutrophils/100 WBC (Bld) 84.2 % Normal [facility] Comment on above: Order Comment: Speci men Type: BLOOD SPECIMEN Ordering Facility: [facility] Address: [address] [place] [address] Performed By: #### 5 7021-8 #### [facility] CLIA [id number] [address] [place] [address] [place] Nucleated RBC (Bld) [#/Vol] 10*3/uL Normal <0.01 [facility] Comment on above: Order Comment: Speci men Type: BLOOD SPECIMEN Ordering Facility: [facility] Address: [address] [place] [address] Performed By: #### 5 7021-8 #### [facility] CLIA [id number] [address] [place] [address] [place] Nucleated RBC/100 WBC (Bld) [Ratio] 0.0 /100 WBC Normal [facility] Comment on above: Order Comment: Speci men Type: BLOOD SPECIMEN Ordering Facility: [facility] Address: [address] [place] [address] Performed By: #### 5 7021-8 #### [facility] CLIA [id number] [address] [place] [address] [place] Platelet mean volume (Bld) [Entitic vol] 10.7 fL Normal 9.0-12.7 [facility] Comment on above: Order Comment: Speci men Type: BLOOD SPECIMEN Ordering Facility: [facility] Address: [address] [place] [address] Performed By: #### 5 7021-8 #### [facility] CLIA [id number] [address] [place] [address] [place] Platelets (Bld) [#/Vol] 722 10*3/uL High 150-400 [facility] Comment on above: Order Comment: Speci men Type: BLOOD SPECIMEN Ordering Facility: [facility] Address: [address] [place] [address] Performed By: #### 5 7021-8 #### [facility] CLIA [id number] [address] [place] [address] [place] RBC (Bld) [#/Vol] 3.95 10*6/uL Normal 3.90-5.20 [facility] Comment on above: Order Comment: Speci men Type: BLOOD SPECIMEN Ordering Facility: [facility] Address: [address] [place] [address] Performed By: #### 5 7021-8 #### [facility] CLIA [id number] [address] [place] [address] [place] WBC (Bld) [#/Vol] 17.09 10*3/uL High 3.70-11.00 [facility] Comment on above: Order Comment: Speci men Type: BLOOD SPECIMEN Ordering Facility: [facility] Address: [address] [place] [address] Performed By: #### 5 7021-8 #### [facility] CLIA [id number] [address] [place] [address] [place] Comprehensive metabolic 2000 panelon 12-30-2022 Albumin [Mass/Vol] 3.9 g/dL Normal 3.9-4.9 [facility] Comment on above: Order Comment: Speci men Type: BLOOD SPECIMEN Ordering Facility: [facility] Address: [address] [place] [address] Performed By: #### 2 4323-8 #### [facility] CLIA [id number] [address] [place] [address] [place] ALP [Catalytic activity/Vol] 206 U/L High 34-123 [facility] Comment on above: Order Comment: Speci men Type: BLOOD SPECIMEN Ordering Facility: [facility] Address: [address] [place] [address] Performed By: #### 2 4323-8 #### [facility] CLIA [id number] [address] [place] [address] [place] ALT [Catalytic activity/Vol] 14 U/L Normal 7-38 [facility] Comment on above: Order Comment: Speci men Type: BLOOD SPECIMEN Ordering Facility: [facility] Address: [address] [place] [address] Performed By: #### 2 4323-8 #### [facility] CLIA [id number] [address] [place] [address] [place] Anion gap [Moles/Vol] 12 mmol/L Normal 9-18 [facility] Comment on above: Order Comment: Speci men Type: BLOOD SPECIMEN Ordering Facility: [facility] Address: [address] [place], [place] [id number] Performed By: #### 2 4323-8 #### [facility] CLIA [id number] [address] [place] [address] [place] AST [Catalytic activity/Vol] 35 U/L Normal 13-35 [facility] Comment on above: Order Comment: Speci men Type: BLOOD SPECIMEN Ordering Facility: [facility] Address: [address] [place] [address] Performed By: #### 2 4323-8 #### [facility] CLIA [id number] [address] [place] [address] [place] Bilirubin [Mass/Vol] 0.5 mg/dL Normal 0.2-1.3 [facility] Comment on above: Order Comment: Speci men Type: BLOOD SPECIMEN Ordering Facility: [facility] Address: [address] [place] [address] Performed By: #### 2 4323-8 #### [facility] CLIA [id number] [address] [place] [address] [place] Calcium [Mass/Vol] 10.1 mg/dL Normal 8.5-10.2 [facility] Comment on above: Order Comment: Speci men Type: BLOOD SPECIMEN Ordering Facility: [facility] Address: [address] [place] [address] Performed By: #### 2 4323-8 #### [facility] CLIA [id number] [address] [place] [address] [place] Chloride [Moles/Vol] 100 mmol/L Normal 97-105 [facility] Comment on above: Order Comment: Speci men Type: BLOOD SPECIMEN Ordering Facility: [facility] Address: [address] [place] [address] Performed By: #### 2 4323-8 #### [facility] CLIA [id number] [address] [place] [address] [place] CO2 [Moles/Vol] 25 mmol/L Normal 22-30 [facility] Comment on above: Order Comment: Speci men Type: BLOOD SPECIMEN Ordering Facility: [facility] Address: [address] [place] [address] Performed By: #### 2 4323-8 #### [facility] CLIA [id number] [address] [place] [address] [place] Creatinine [Mass/Vol] 0.69 mg/dL Normal 0.58-0.96 [facility] Comment on above: Order Comment: Maryann patel Type: BLOOD SPECIMEN Ordering Facility: [facility] Address: [address] [place] [address] Performed By: #### 2 4323-8 #### [facility] CLIA [id number] [address] [place] [address] [place] [facility] Creatinine and Glomerular filtration rate.predicted panel (S/P/Bld) 86 mL/min/1.73m??? Normal >=60 [facility] Comment on above: Order Comment: Maryann patel Type: BLOOD SPECIMEN Ordering Facility: [facility] Address: [address] [place] [address] Result Comment: Kallie mated Glomerular Filtration Rate (eGFR) is calculated using the 2020 CKD-EPI creatinine equation. This equation utilizes serum creatinine, sex, and age as parameters. The creatinine assay has traceable calibration to isotope dilution-mass spectrometry. Refer to KDIGO guidelines for clinical interpretation. In patients with unstable renal function, e.g. those with acute kidney injury, the eGFR may not accurately reflect actual GFR. Performed By: #### 2 4323-8 #### [facility] CLIA [id number] [address] [place] [address] [place] Glucose [Mass/Vol] 78 mg/dL Normal 74-99 [facility] Comment on above: Order Comment: Maryann patel Type: BLOOD SPECIMEN Ordering Facility: [facility] Address: [address] [place] [address] Result Comment: The [place] [employer] (ADA) provides guidance for cutoff values for fasting glucose and random glucose. The ADA defines fasting as no caloric intake for at least 8 hours. Fasting plasma glucose results between 100 to 125 mg/dL indicate increased risk for diabetes (prediabetes). Fasting plasma glucose results greater than or equal to 126 mg/dL meet the criteria for diagnosis of diabetes. In the absence of unequivocal hyperglycemia, results should be confirmed by repeat testing. In a patient with classic symptoms of hyperglycemia or hyperglycemic crisis, random plasma glucose results greater than or equal to 200 mg/dL meet the criteria for diagnosis of diabetes. Reference: Standards of Medical Care in Diabetes 2016, [place] [employer]. Diabetes Care. 2016.39(Suppl 1). Performed By: #### 2 4323-8 #### [facility] CLIA [id number] [address] [place] [address] [place] Potassium [Moles/Vol] 5.0 mmol/L Normal 3.7-5.1 [facility] Comment on above: Order Comment: Speci men Type: BLOOD SPECIMEN Ordering Facility: [facility] Address: [address] [place] [address] Performed By: #### 2 4323-8 #### [facility] CLIA [id number] [address] [place] [address] [place] Protein [Mass/Vol] 7.0 g/dL Normal 6.3-8.0 [facility] Comment on above: Order Comment: Speci men Type: BLOOD SPECIMEN Ordering Facility: [facility] Address: [address] [place] [address] Performed By: #### 2 4323-8 #### [facility] CLIA [id number] [address] [place] [address] [place] Sodium [Moles/Vol] 137 mmol/L Normal 136-144 [facility] Comment on above: Order Comment: Speci men Type: BLOOD SPECIMEN Ordering Facility: [facility] Address: [address] [place] [address] Performed By: #### 2 4323-8 #### [facility] CLIA [id number] [address] [place] [address] [place] Urea nitrogen [Mass/Vol] 12 mg/dL Normal 7-21 [facility] Comment on above: Order Comment: Speci men Type: BLOOD SPECIMEN Ordering Facility: [facility] Address: [address] [place], [place] [address] Performed By: #### 2 4323-8 #### [facility] CLIA [id number] [address] [place] [address] [place] Absolute lymphocyte countOrd ered By: Tommy Vazquez on 11-27-2022 Lymphocytes Auto (Unsp spec) [#/Vol] 0.22 10*3/uL 0.83-4.51 [facility] Basophil percentageOrdered B y: Eb Kendrick on 11-27-2022 Chloride [Moles/Vol] 101 mmol/L 98-107 [facility] Glucose [Mass/Vol] 140 mg/dL 74-106 [facility] Comment on above: Fasting Glucose resu lt greater than or equal to 126 mg/dL suggests DIABETES MELLITUS per A.D.A. criteria. Potassium [Moles/Vol] 3.8 mmol/L 3.5-5.1 [facility] Sodium [Moles/Vol] 134 mmol/L 136-145 [facility] Basophil percentageOrdered B y: Tommy Vazquez on 11-27-2022 Basophil percentage 0 SEEN /hpf 0-5 [facility] Basophils/100 WBC (Bld) 0.4 % 0-1 [facility] Bilirubin [Mass/Vol] 0.80 mg/dL 0.20-1.00 [facility] Comment on above: For patients on eltr ombopag therapy, use of Dimension [place] TBIL is not recommended. Chloride [Moles/Vol] 102 mmol/L 98-107 [facility] Eosinophils/100 WBC (Bld) 0.2 % 0-5 [facility] Glucose [Mass/Vol] 162 mg/dL 74-106 [facility] Comment on above: Fasting Glucose resu lt greater than or equal to 126 mg/dL suggests DIABETES MELLITUS per A.D.A. criteria. Lactate [Moles/Vol] 1.7 mmol/L 0.4-2.0 [facility] Neutrophils (Bld) [#/Vol] 9.3 10*3/uL 2.0-7.7 [facility] Neutrophils/100 WBC (Bld) 90.7 % 47-70 [facility] Potassium [Moles/Vol] 3.9 mmol/L 3.5-5.1 [facility] Protein [Mass/Vol] 7.1 g/dL 6.4-8.2 [facility] Sodium [Moles/Vol] 136 mmol/L 136-145 [facility] WBC (Bld) [#/Vol] 10.2 10*3/uL 4.4-11.0 [facility] Bilirubin Test strip Ql (U)O rdered By: Tommy Vazquez on 11-27-2022 Bilirubin Ql (U) Negative Negative [facility] Blood erythrocytes count (nu mber/volume)Ordered By: Tommy Vazquez on 11-27-2022 RBC (Bld) [#/Vol] 4.13 10*6/uL 4.2-5.4 [facility] Blood hemoglobin measurement (mass/volume)Ordered By: Tommy Vazquez on 11-27-2022 Hemoglobin (Bld) [Mass/Vol] 12.3 g/dL 12.0-15.0 [facility] Blood lymphocytes/100 leukoc ytesOrdered By: Tommy Vazquez on 11-27-2022 Lymphocytes/100 WBC (Bld) 2.2 % 19-41 [facility] Blood manual differential co mment interpretation (narrative result)Ordered By: Tommy Vazquez on 11-27-2022 Manual differential comment Sukhwinder (Bld) [Interp] COMMENT [facility] Comment on above: LYMPHOPENIA. Blood monocytes/100 leukocyt esOrdered By: Tommy Vazquez on 11-27-2022 Monocytes/100 WBC (Bld) 5.7 % 0-10 [facility] Blood platelet mean volumeOr dered By: Tommy Vazquez on 11-27-2022 Platelet mean volume (Bld) [Entitic vol] 11.4 fL 6.2-12.0 [facility] Determination of erythrocyte mean corpuscular volume (MCV)Ordered By: Tommy Vazquez on 11-27-2022 MCV (RBC) [Entitic vol] 93.0 fL 81-99 [facility] Hematocrit Auto (Bld) [Volum e fraction]Ordered By: Tommy Vazquez on 11-27-2022 Hematocrit (Bld) [Volume fraction] 38.4 % 37-47 [facility] INR in Blood by Coagulation assayOrdered By: Tommy Vazquez on 11-27-2022 INR Coag (Bld) [Relative time] 0.9 {INR} [facility] Ketones Test strip Ql (U)Ord ered By: Tommy Vazquez on 11-27-2022 Ketones Ql (U) 15 mg/dl Negative [facility] Laboratory - Chemistry and C hemistry - challengeOrdered By: Eb Kendrick on 11-27-2022 CO2 [Moles/Vol] 27.0 mmol/L 21.0-32.0 [facility] Urea nitrogen/Creatinine [Mass ratio] 17.6 mg/mg 02-27 [facility] Laboratory - Chemistry and C hemistry - challengeOrdered By: Tommybart Vazquez on 11-27-2022 ALP [Catalytic activity/Vol] 194 U/L 45-117 [facility] ALT [Catalytic activity/Vol] 21 U/L 13-56 [facility] CO2 [Moles/Vol] 27.0 mmol/L 21.0-32.0 [facility] Globulin (S) [Mass/Vol] 3.8 g/dL 2.2-4.2 [facility] Urea nitrogen/Creatinine [Mass ratio] 22.2 mg/mg 02-27 [facility] Laboratory - CoagulationOrde red By: Tommy Vazquez on 11-27-2022 aPTT Coag (Bld) [Time] 28.0 s 24.1-36.2 [facility] PT Coag (PPP) [Time] 12.0 s 11.7-14.9 [facility] Laboratory - Hematology and Cell countsOrdered By: Tommy Vazquez on 11-27-2022 Erythrocyte distribution width (RBC) [Entitic vol] 49.3 fL 35.1-43.9 [facility] Erythrocyte distribution width (RBC) [Ratio] 14.6 % 11.6-14.6 [facility] Immature granulocytes/100 WBC (Bld) 0.800 % 0.0-0.9 [facility] Comment on above: IG% - Immature Granu locytes (promyelocytes, myelocytes and metamyelocytes) > 1% indicates that a LEFT SHIFT is Present. MCH (RBC) [Entitic mass] 29.8 pg 27.0-32.0 [facility] Nucleated RBC/100 WBC (Bld) [Ratio] 0 % 0-5 [facility] MCHC Auto (RBC) [Mass/Vol]Or dered By: Tommy Vazquez on 11-27-2022 MCHC (RBC) [Mass/Vol] 32.0 g/dL 32-36 [facility] Mucus LM Ql (Urine sed)Order ed By: Tommy Vazquez on 11-27-2022 Mucus Ql (Urine sed) 0 SEEN /hpf [facility] Nitrite Test strip Ql (U)Ord ered By: Tommy Vazquez on 11-27-2022 Nitrite Ql (U) Negative Negative [facility] No Panel InformationOrdered By: Eb Kendrick on 11-27-2022 Estimated Creatinine Clearance Calc 41.40 ml/min [facility] Estimated GFR (MDRD) Amer 88 mL/min >60 [facility] Comment on above: GFR Calc Estimated GFR (MDRD) Non-Af Amer 73 mL/min >60 [facility] Comment on above: Non- GFR Calc No Panel InformationOrdered By: Tommy Vazquez on 11-27-2022 Estimated Creatinine Clearance Calc 40.89 ml/min [facility] Estimated GFR (MDRD) Amer 87 mL/min >60 [facility] Comment on above: GFR Calc Estimated GFR (MDRD) Non-Af Amer 72 mL/min >60 [facility] Comment on above: Non- GFR Calc Platelets bldOrdered By: Tommy Vazquez on 11-27-2022 Platelets (Bld) [#/Vol] 262 10*3/uL 150-450 [facility] Protein Test strip Ql (U)Ord ered By: Tommy Vazquez on 11-27-2022 Protein Ql (U) 30 mg/dl Negative [facility] Serum or plasma albumin anay urement (mass/volume)Ordered By: Tommy Vazquez on 11-27-2022 Albumin [Mass/Vol] 3.3 g/dL 3.2-5.0 [facility] Serum or plasma albumin/glob ulin mass ratioOrdered By: Tommy Vazquez on 11-27-2022 Albumin/Globulin [Mass ratio] 0.9 {ratio} 0.9-2.4 [facility] Serum or plasma calcium anay urement (mass/volume)Ordered By: Eb Kendrick on 11-27-2022 Calcium [Mass/Vol] 8.7 mg/dL 8.5-10.1 [facility] Serum or plasma calcium anay urement (mass/volume)Ordered By: Tommy Vazquez on 11-27-2022 Calcium [Mass/Vol] 9.1 mg/dL 8.5-10.1 [facility] Serum or plasma creatinine m easurement (mass/volume)Ordered By: Eb Kendrick on 11-27-2022 Creatinine [Mass/Vol] 0.80 mg/dL 0.55-1.02 [facility] Comment on above: The validity of the calculated GFR & GFRAA in patients over 70 years has not been determined. Clinical correlation is essential. Serum or plasma creatinine m easurement (mass/volume)Ordered By: Tommy Vazquez on 11-27-2022 Creatinine [Mass/Vol] 0.81 mg/dL 0.55-1.02 [facility] Comment on above: The validity of the calculated GFR & GFRAA in patients over 70 years has not been determined. Clinical correlation is essential. Serum or plasma urea nitroge n measurement (mass/volume)Ordered By: Eb Kendrick on 11-27-2022 Urea nitrogen [Mass/Vol] 14 mg/dL 11-25 [facility] Serum or plasma urea nitroge n measurement (mass/volume)Ordered By: Tommy Vazquez on 11-27-2022 Urea nitrogen [Mass/Vol] 18 mg/dL 11-25 [facility] Squamous epithelial cells de tection in urine sediment by light microscopyOrdered By: Tommy Vazquez on 11-27-2022 Epithelial cells.squamous LM Ql (Urine sed) 0 SEEN /hpf 5-10 [facility] Thin prep Papanicolaou smear with manual screeningOrdered By: Eb Kendrick on 11-27-2022 Thin prep Papanicolaou smear with manual screening 6 - [facility] Thin prep Papanicolaou smear with manual screeningOrdered By: Tommy Vazquez on 11-27-2022 Thin prep Papanicolaou smear with manual screening 48 U/L 15-37 [facility] Thin prep Papanicolaou smear with manual screening 7 5-15 [facility] Urine blood detectionOrdered By: Tommy Vazquez on 11-27-2022 RBC Ql (U) 25 /ul Negative [facility] RBC Ql (U) 0-5 SEEN /hpf 0-5 [facility] Urine clarityOrdered By: Tommy Vazquez on 11-27-2022 Clarity (U) Clear Clear [facility] Urine color determinationOrd ered By: Tommy Vazquez on 11-27-2022 Color (U) Yellow Yellow [facility] Urine glucose detectionOrder ed By: Tommy Vazquez on 11-27-2022 Glucose Ql (U) Normal mg/dl Normal [facility] Urine leukocyte esterase det ection by dipstickOrdered By: Tommy Vazquez on 11-27-2022 Leukocyte esterase Test strip Ql (U) Negative Negative [facility] Urine pHOrdered By: Tommy arriaga on 11-27-2022 pH (U) 5.0 [pH] 5.0 - 8.0 [facility] Urine sediment bacteria coun t by microscopy (number/high power field)Ordered By: Tommy Vazquez on 11-27-2022 Bacteria LM.HPF (Urine sed) [#/Area] 0 /[HPF] None Seen [facility] Urine specific gravity measu rementOrdered By: Tommy Vazquez on 11-27-2022 Specific gravity (U) [Rel density] 1.020 1.002-1.03 0 [facility] Urobilinogen Auto test strip Ql (U)Ordered By: Tommy Vazquez on 11-27-2022 Urobilinogen Ql (U) 4 mg/dl Normal [facility] CBC W Auto Differential pane l (Bld)on 10-21-2022 Basophils (Bld) [#/Vol] 0.08 10*3/uL Normal <0.11 [facility] Comment on above: Order Comment: Speci men Type: BLOOD SPECIMEN Ordering Facility: [facility] Address: [address] [place], [place] [id number] Performed By: #### 5 7021-8 #### [facility] CLIA [id number] [address] [place] [address] [place] Basophils/100 WBC (Bld) 0.7 % Normal [facility] Comment on above: Order Comment: Speci men Type: BLOOD SPECIMEN Ordering Facility: [facility] Address: [address] [place] [address] Performed By: #### 5 7021-8 #### [facility] CLIA [id number] [address] [place] [address] [place] Differential cell count method Nom (Bld) Auto Normal [facility] Comment on above: Order Comment: Speci men Type: BLOOD SPECIMEN Ordering Facility: [facility] Address: [address] [place] [address] Performed By: #### 5 7021-8 #### [facility] CLIA [id number] [address] [place] [address] [place] Eosinophils (Bld) [#/Vol] 0.06 10*3/uL Normal <0.46 [facility] Comment on above: Order Comment: Speci men Type: BLOOD SPECIMEN Ordering Facility: [facility] Address: [address] [place] [address] Performed By: #### 5 7021-8 #### [facility] CLIA [id number] [address] [place] [address] [place] Eosinophils/100 WBC (Bld) 0.5 % Normal [facility] Comment on above: Order Comment: Speci men Type: BLOOD SPECIMEN Ordering Facility: [facility] Address: [address] [place] [address] Performed By: #### 5 7021-8 #### [facility] CLIA [id number] [address] [place] [address] [place] Erythrocyte distribution width (RBC) [Ratio] 15.4 % High 11.5-15.0 [facility] Comment on above: Order Comment: Speci men Type: BLOOD SPECIMEN Ordering Facility: [facility] Address: [address] [place] [address] Performed By: #### 5 7021-8 #### [facility] CLIA [id number] [address] [place] [address] [place] Hematocrit (Bld) [Volume fraction] 38.1 % Normal 36.0-46.0 [facility] Comment on above: Order Comment: Speci men Type: BLOOD SPECIMEN Ordering Facility: [facility] Address: [address] [place] [address] Performed By: #### 5 7021-8 #### [facility] CLIA [id number] [address] [place] [address] [place] Hemoglobin (Bld) [Mass/Vol] 11.3 g/dL Low 11.5-15.5 [facility] Comment on above: Order Comment: Speci men Type: BLOOD SPECIMEN Ordering Facility: [facility] Address: [address] [place] [address] Performed By: #### 5 7021-8 #### [facility] CLIA [id number] [address] [place] [address] [place] Immature granulocytes (Bld) [#/Vol] 0.08 10*3/uL Normal <0.10 [facility] Comment on above: Order Comment: Speci men Type: BLOOD SPECIMEN Ordering Facility: [facility] Address: [address] [place] [address] Performed By: #### 5 7021-8 #### [facility] CLIA [id number] [address] [place] [address] [place] Immature granulocytes/100 WBC (Bld) 0.7 % Normal [facility] Comment on above: Order Comment: Speci men Type: BLOOD SPECIMEN Ordering Facility: [facility] Address: [address] [place] [address] Performed By: #### 5 7021-8 #### [facility] CLIA [id number] [address] [place] [address] [place] Lymphocytes (Bld) [#/Vol] 0.86 10*3/uL Low 1.00-4.00 [facility] Comment on above: Order Comment: Speci men Type: BLOOD SPECIMEN Ordering Facility: [facility] Address: [address] [place] [address] Performed By: #### 5 7021-8 #### [facility] CLIA [id number] [address] [place] [address] [place] Lymphocytes/100 WBC (Bld) 7.4 % Normal [facility] Comment on above: Order Comment: Speci men Type: BLOOD SPECIMEN Ordering Facility: [facility] Address: [address] [place] [address] Performed By: #### 5 7021-8 #### [facility] CLIA [id number] [address] [place] [address] [place] MCH (RBC) [Entitic mass] 30.0 pg Normal 26.0-34.0 [facility] Comment on above: Order Comment: Speci men Type: BLOOD SPECIMEN Ordering Facility: [facility] Address: [address] [place] [address] Performed By: #### 5 7021-8 #### [facility] CLIA [id number] [address] [place] [address] [place] MCHC (RBC) [Mass/Vol] 29.7 g/dL Low 30.5-36.0 [facility] Comment on above: Order Comment: Speci men Type: BLOOD SPECIMEN Ordering Facility: [facility] Address: [address] [place] [address] Performed By: #### 5 7021-8 #### [facility] CLIA [id number] [address] [place] [address] [place] MCV (RBC) [Entitic vol] 101.1 fL High 80.0-100.0 [facility] Comment on above: Order Comment: Speci men Type: BLOOD SPECIMEN Ordering Facility: [facility] Address: [address] [place] [address] Performed By: #### 5 7021-8 #### [facility] CLIA [id number] [address] [place] [id number] [place] Monocytes (Bld) [#/Vol] 0.73 10*3/uL Normal <0.87 [facility] Comment on above: Order Comment: Speci men Type: BLOOD SPECIMEN Ordering Facility: [facility] Address: [address] [place] [address] Performed By: #### 5 7021-8 #### [facility] CLIA [id number] [address] [place] [address] [place] Monocytes/100 WBC (Bld) 6.2 % Normal [facility] Comment on above: Order Comment: Speci men Type: BLOOD SPECIMEN Ordering Facility: [facility] Address: [address] [place] [address] Performed By: #### 5 7021-8 #### [facility] CLIA [id number] [address] [place] [address] [place] Neutrophils (Bld) [#/Vol] 9.89 10*3/uL High 1.45-7.50 [facility] Comment on above: Order Comment: Speci men Type: BLOOD SPECIMEN Ordering Facility: [facility] Address: [address] [place] [address] Performed By: #### 5 7021-8 #### [facility] CLIA [id number] [address] [place] [address] [place] Neutrophils/100 WBC (Bld) 84.5 % Normal [facility] Comment on above: Order Comment: Speci men Type: BLOOD SPECIMEN Ordering Facility: [facility] Address: [address] [place] [address] Performed By: #### 5 7021-8 #### [facility] CLIA [id number] [address] [place] [id number] [place] Nucleated RBC (Bld) [#/Vol] 10*3/uL Normal <0.01 [facility] Comment on above: Order Comment: Speci men Type: BLOOD SPECIMEN Ordering Facility: [facility] Address: [address] [place] [address] Performed By: #### 5 7021-8 #### [facility] CLIA [id number] [address] [place] [address] [place] Nucleated RBC/100 WBC (Bld) [Ratio] 0.0 /100 WBC Normal [facility] Comment on above: Order Comment: Speci men Type: BLOOD SPECIMEN Ordering Facility: [facility] Address: [address] [place] [address] Performed By: #### 5 7021-8 #### [facility] CLIA [id number] [address] [place] [address] [place] Platelet mean volume (Bld) [Entitic vol] 12.0 fL Normal 9.0-12.7 [facility] Comment on above: Order Comment: Skipi men Type: BLOOD SPECIMEN Ordering Facility: [facility] Address: [address] [place] [address] Performed By: #### 5 7021-8 #### [facility] CLIA [id number] [address] [place] [address] [place] Platelets (Bld) [#/Vol] 440 10*3/uL High 150-400 [facility] Comment on above: Order Comment: Skipi men Type: BLOOD SPECIMEN Ordering Facility: [facility] Address: [address] [place] [address] Performed By: #### 5 7021-8 #### [facility] CLIA [id number] [address] [place] [address] [place] RBC (Bld) [#/Vol] 3.77 10*6/uL Low 3.90-5.20 [facility] Comment on above: Order Comment: Speci men Type: BLOOD SPECIMEN Ordering Facility: [facility] Address: [address] [place] [address] Performed By: #### 5 7021-8 #### [facility] CLIA [id number] [address] [place] [id number] [place] WBC (Bld) [#/Vol] 11.70 10*3/uL High 3.70-11.00 [facility] Comment on above: Order Comment: Speci men Type: BLOOD SPECIMEN Ordering Facility: [facility] Address: [address] [place] [address] Performed By: #### 5 7021-8 #### [facility] CLIA [id number] [address] [place], [place] [id number] [place] Comprehensive metabolic 2000 panelon 10-21-2022 Albumin [Mass/Vol] 4.0 g/dL Normal 3.9-4.9 [facility] Comment on above: Order Comment: Speci men Type: BLOOD SPECIMEN Ordering Facility: [facility] Address: [address] [place] [address] Performed By: #### 2 4323-8 #### [facility] CLIA [id number] [address] [place], [place] [id number] [place] ALP [Catalytic activity/Vol] 133 U/L High 34-123 [facility] Comment on above: Order Comment: Speci men Type: BLOOD SPECIMEN Ordering Facility: [facility] Address: [address] [place] [address] Performed By: #### 2 4323-8 #### [facility] CLIA [id number] [address] [place], [place] [id number] [place] ALT [Catalytic activity/Vol] 11 U/L Normal 7-38 [facility] Comment on above: Order Comment: Speci men Type: BLOOD SPECIMEN Ordering Facility: [facility] Address: [address] [place] [address] Performed By: #### 2 4323-8 #### [facility] CLIA [id number] [address] [place], [place] [id number] [place] Anion gap [Moles/Vol] 12 mmol/L Normal 9-18 [facility] Comment on above: Order Comment: Speci men Type: BLOOD SPECIMEN Ordering Facility: [facility] Address: [address] [place], [place] [address] Performed By: #### 2 4323-8 #### [facility] CLIA [id number] [address] [place] [address] [place] AST [Catalytic activity/Vol] 33 U/L Normal 13-35 [facility] Comment on above: Order Comment: Speci men Type: BLOOD SPECIMEN Ordering Facility: [facility] Address: [address] [place] [address] Performed By: #### 2 4323-8 #### [facility] CLIA [id number] [address] [place] [address] [place] Bilirubin [Mass/Vol] 0.3 mg/dL Normal 0.2-1.3 [facility] Comment on above: Order Comment: Speci men Type: BLOOD SPECIMEN Ordering Facility: [facility] Address: [address] [place] [address] Performed By: #### 2 4323-8 #### [facility] CLIA [id number] [address] [place] [address] [place] Calcium [Mass/Vol] 10.2 mg/dL Normal 8.5-10.2 [facility] Comment on above: Order Comment: Speci men Type: BLOOD SPECIMEN Ordering Facility: [facility] Address: [address] [place], [place] [id number] Performed By: #### 2 4323-8 #### [facility] CLIA [id number] [address] [place] [address] [place] Chloride [Moles/Vol] 105 mmol/L Normal 97-105 [facility] Comment on above: Order Comment: Speci men Type: BLOOD SPECIMEN Ordering Facility: [facility] Address: [address] [place] [address] Performed By: #### 2 4323-8 #### [facility] CLIA [id number] [facility] [place] [address] [place] CO2 [Moles/Vol] 24 mmol/L Normal 22-30 [facility] Comment on above: Order Comment: Speci men Type: BLOOD SPECIMEN Ordering Facility: [facility] Address: [address] [place] [address] Performed By: #### 2 4323-8 #### [facility] CLIA [id number] [address] [place] [address] [place] Creatinine [Mass/Vol] 0.68 mg/dL Normal 0.58-0.96 [facility] Comment on above: Order Comment: Speci men Type: BLOOD SPECIMEN Ordering Facility: [facility] Address: [address] [place] [address] Performed By: #### 2 4323-8 #### [facility] CLIA [id number] [address] [place] [address] [place] ESTIMATED GLOMERULAR FILTRATION RATE 86 mL/min/1.73m??? Normal >=60 [facility] Comment on above: Order Comment: Speci men Type: BLOOD SPECIMEN Ordering Facility: [facility] Address: [address] [place] [address] Result Comment: Kallie mated Glomerular Filtration Rate (eGFR) is calculated using the 2020 CKD-EPI creatinine equation. This equation utilizes serum creatinine, sex, and age as parameters. The creatinine assay has traceable calibration to isotope dilution-mass spectrometry. Refer to KDIGO guidelines for clinical interpretation. In patients with unstable renal function, e.g. those with acute kidney injury, the eGFR may not accurately reflect actual GFR. Performed By: #### 2 4323-8 #### [facility] CLIA [id number] [address] [place] [address] [place] Glucose [Mass/Vol] 92 mg/dL Normal 74-99 [facility] Comment on above: Order Comment: Speci men Type: BLOOD SPECIMEN Ordering Facility: [facility] Address: [address] [place] [address] Result Comment: The [place] [employer] (ADA) provides guidance for cutoff values for fasting glucose and random glucose. The ADA defines fasting as no caloric intake for at least 8 hours. Fasting plasma glucose results between 100 to 125 mg/dL indicate increased risk for diabetes (prediabetes). Fasting plasma glucose results greater than or equal to 126 mg/dL meet the criteria for diagnosis of diabetes. In the absence of unequivocal hyperglycemia, results should be confirmed by repeat testing. In a patient with classic symptoms of hyperglycemia or hyperglycemic crisis, random plasma glucose results greater than or equal to 200 mg/dL meet the criteria for diagnosis of diabetes. Reference: Standards of Medical Care in Diabetes 2016, [place] [employer]. Diabetes Care. 2016.39(Suppl 1). Performed By: #### 2 4323-8 #### [facility] CLIA [id number] [address] [place] [address] [place] Potassium [Moles/Vol] 5.2 mmol/L High 3.7-5.1 [facility] Comment on above: Order Comment: Speci men Type: BLOOD SPECIMEN Ordering Facility: [facility] Address: [address] [place] [address] Performed By: #### 2 4323-8 #### [facility] CLIA [id number] [address] [place] [address] [place] Protein [Mass/Vol] 6.8 g/dL Normal 6.3-8.0 [facility] Comment on above: Order Comment: Speci men Type: BLOOD SPECIMEN Ordering Facility: [facility] Address: [address] [place] [address] Performed By: #### 2 4323-8 #### [facility] CLIA [id number] [address] [place] [address] [place] Sodium [Moles/Vol] 141 mmol/L Normal 136-144 [facility] Comment on above: Order Comment: Speci men Type: BLOOD SPECIMEN Ordering Facility: [facility] Address: [address] [place] [address] Performed By: #### 2 4323-8 #### [facility] CLIA [id number] [address] [place] [address] [place] Urea nitrogen [Mass/Vol] 14 mg/dL Normal 7-21 [facility] Comment on above: Order Comment: Speci men Type: BLOOD SPECIMEN Ordering Facility: [facility] Address: [address] [place] [address], [place] [address] Performed By: #### 2 4323-8 #### [facility] CLIA [id number] [address] [place] [address] [place] Absolute lymphocyte countOrd ered By: Adalberto Willingham on 10-17-2022 Lymphocytes Auto (Unsp spec) [#/Vol] 1.00 10*3/uL 0.83-4.51 [facility] Basophil percentageOrdered B y: Adalberto Willingham on 10-17-2022 Basophils/100 WBC (Bld) 1.5 % 0-1 [facility] Chloride [Moles/Vol] 107 mmol/L 98-107 [facility] Eosinophils/100 WBC (Bld) 3.4 % 0-5 [facility] Glucose [Mass/Vol] 88 mg/dL 74-106 [facility] Neutrophils (Bld) [#/Vol] 3.1 10*3/uL 2.0-7.7 [facility] Neutrophils/100 WBC (Bld) 55.8 % 47-70 [facility] Potassium [Moles/Vol] 4.6 mmol/L 3.5-5.1 [facility] Sodium [Moles/Vol] 143 mmol/L 136-145 [facility] WBC (Bld) [#/Vol] 5.5 10*3/uL 4.4-11.0 [facility] Blood erythrocytes count (nu mber/volume)Ordered By: Adalberto Willingham on 10-17-2022 RBC (Bld) [#/Vol] 3.22 10*6/uL 4.2-5.4 [facility] Blood hemoglobin measurement (mass/volume)Ordered By: Adalberto Willingham on 10-17-2022 Hemoglobin (Bld) [Mass/Vol] 9.7 g/dL 12.0-15.0 [facility] Blood lymphocytes/100 leukoc ytesOrdered By: Adalberto Willingham on 10-17-2022 Lymphocytes/100 WBC (Bld) 18.1 % 19-41 [facility] Blood monocytes/100 leukocyt esOrdered By: Adalberto Willingham on 10-17-2022 Monocytes/100 WBC (Bld) 20.1 % 0-10 [facility] Blood platelet mean volumeOr dered By: Adalberto Willingham on 10-17-2022 Platelet mean volume (Bld) [Entitic vol] 10.9 fL 6.2-12.0 [facility] Determination of erythrocyte mean corpuscular volume (MCV)Ordered By: Adalberto Willingham on 10-17-2022 MCV (RBC) [Entitic vol] 99.7 fL 81-99 [facility] Hematocrit Auto (Bld) [Volum e fraction]Ordered By: Adalberto Willingham on 10-17-2022 Hematocrit (Bld) [Volume fraction] 32.1 % 37-47 [facility] Laboratory - Chemistry and C hemistry - challengeOrdered By: Adalberto Willingham 10-17-2022 CO2 [Moles/Vol] 30.0 mmol/L 21.0-32.0 [facility] Urea nitrogen/Creatinine [Mass ratio] 33.0 mg/mg 10-20 [facility] Laboratory - Hematology and Cell countsOrdered By: Adalberto Willingham 10-17-2022 Erythrocyte distribution width (RBC) [Entitic vol] 56.6 fL 35.1-43.9 [facility] Erythrocyte distribution width (RBC) [Ratio] 15.6 % 11.6-14.6 [facility] Immature granulocytes/100 WBC (Bld) 1.100 % 0.0-0.9 [facility] Comment on above: IG% - Immature Granu locytes (promyelocytes, myelocytes and metamyelocytes) > 1% indicates that a LEFT SHIFT is Present. MCH (RBC) [Entitic mass] 30.1 pg 27.0-32.0 [facility] Nucleated RBC/100 WBC (Bld) [Ratio] 0 % 0-5 [facility] MCHC Auto (RBC) [Mass/Vol]Or dered By: Adalberto Willingham on 10-17-2022 MCHC (RBC) [Mass/Vol] 30.2 g/dL 32-36 [facility] No Panel InformationOrdered By: Adalberto Willingham on 10-17-2022 Estimated Creatinine Clearance Calc 33.12 ml/min [facility] Estimated GFR (MDRD) Amer 103 mL/min >60 [facility] Comment on above: GFR Calc Estimated GFR (MDRD) Non-Af Amer 85 mL/min >60 [facility] Comment on above: Non- GFR Calc Platelets bldOrdered By: Adalberto Willingham on 10-17-2022 Platelets (Bld) [#/Vol] 482 10*3/uL 150-450 [facility] Serum or plasma calcium anay urement (mass/volume)Ordered By: Adalberto Willingham on 10-17-2022 Calcium [Mass/Vol] 9.3 mg/dL 8.5-10.1 [facility] Serum or plasma creatinine m easurement (mass/volume)Ordered By: Adalberto Willingham on 10-17-2022 Creatinine [Mass/Vol] 0.70 mg/dL 0.55-1.02 [facility] Comment on above: The validity of the calculated GFR & GFRAA in patients over 70 years has not been determined. Clinical correlation is essential. Serum or plasma urea nitroge n measurement (mass/volume)Ordered By: Adalberto Willingham on 10-17-2022 Urea nitrogen [Mass/Vol] 23 mg/dL 7-18 [facility] Thin prep Papanicolaou smear with manual screeningOrdered By: Adalberto Willingham on 10-17-2022 Thin prep Papanicolaou smear with manual screening 6 5-15 [facility] COVID-19 virus antigen assay Ordered By: Adalberto Willingham on 10-06-2022 SARS-CoV-2 (COVID-19) Ag IA.rapid Ql (Resp) [facility] COVID-19 virus antigen assay Ordered By: Dr. Willingham on 10-06-2022 SARS-CoV-2 (COVID-19) Ag IA.rapid Ql (Resp) [facility] Absolute lymphocyte countOrd ered By: Dr. Willingham on 10-03-2022 Lymphocytes Auto (Unsp spec) [#/Vol] 0.51 10*3/uL 0.83-4.51 [facility] Basophil percentageOrdered B y: Dr. Willingham on 10-03-2022 Basophils/100 WBC (Bld) 0.3 % 0-1 [facility] Chloride [Moles/Vol] 111 mmol/L 98-107 [facility] Eosinophils/100 WBC (Bld) 1.8 % 0-5 [facility] Glucose [Mass/Vol] 99 mg/dL 74-106 [facility] Neutrophils (Bld) [#/Vol] 7.2 10*3/uL 2.0-7.7 [facility] Neutrophils/100 WBC (Bld) 79.5 % 47-70 [facility] Potassium [Moles/Vol] 4.3 mmol/L 3.5-5.1 [facility] Sodium [Moles/Vol] 142 mmol/L 136-145 [facility] WBC (Bld) [#/Vol] 9.1 10*3/uL 4.4-11.0 [facility] Blood erythrocytes count (nu mber/volume)Ordered By: Dr. Willingham on 10-03-2022 RBC (Bld) [#/Vol] 2.85 10*6/uL 4.2-5.4 [facility] Blood hemoglobin measurement (mass/volume)Ordered By: Dr. Willingham on 10-03-2022 Hemoglobin (Bld) [Mass/Vol] 8.8 g/dL 12.0-15.0 [facility] Blood lymphocytes/100 leukoc ytesOrdered By: Dr. Willingham on 10-03-2022 Lymphocytes/100 WBC (Bld) 5.6 % 19-41 [facility] Blood manual differential co mment interpretation (narrative result)Ordered By: Dr. Willingham on 10-03-2022 Manual differential comment Sukhwinder (Bld) [Interp] SCANNED [facility] Comment on above: LYMPHOPENIA Blood monocytes/100 leukocyt esOrdered By: Dr[address] Willingham on 10-03-2022 Monocytes/100 WBC (Bld) 11.7 % 0-10 [facility] Blood platelet mean volumeOr dered By: Dr. Willingham on 10-03-2022 Platelet mean volume (Bld) [Entitic vol] 12.1 fL 6.2-12.0 [facility] Determination of erythrocyte mean corpuscular volume (MCV)Ordered By: Dr. Willingham on 10-03-2022 MCV (RBC) [Entitic vol] 98.9 fL 81-99 [facility] Hematocrit Auto (Bld) [Volum e fraction]Ordered By: Dr. Willingham on 10-03-2022 Hematocrit (Bld) [Volume fraction] 28.2 % 37-47 [facility] Laboratory - Chemistry and C hemistry - challengeOrdered By: Dr. Willingham on 10-03-2022 CO2 [Moles/Vol] 27.0 mmol/L 21.0-32.0 [facility] Urea nitrogen/Creatinine [Mass ratio] 41.9 mg/mg 10-20 [facility] Laboratory - Hematology and Cell countsOrdered By: Dr. Willingham on 10-03-2022 Erythrocyte distribution width (RBC) [Entitic vol] 54.8 fL 35.1-43.9 [facility] Erythrocyte distribution width (RBC) [Ratio] 15.1 % 11.6-14.6 [facility] Immature granulocytes/100 WBC (Bld) 1.100 % 0.0-0.9 [facility] Comment on above: IG% - Immature Granu locytes (promyelocytes, myelocytes and metamyelocytes) > 1% indicates that a LEFT SHIFT is Present. MCH (RBC) [Entitic mass] 30.9 pg 27.0-32.0 [facility] Nucleated RBC/100 WBC (Bld) [Ratio] 0 % 0-5 [facility] MCHC Auto (RBC) [Mass/Vol]Or dered By: Dr. Willingham on 10-03-2022 MCHC (RBC) [Mass/Vol] 31.2 g/dL 32-36 [facility] No Panel InformationOrdered By: Dr. Willingham on 10-03-2022 Estimated Creatinine Clearance Calc 32.50 ml/min [facility] Estimated GFR (MDRD) Amer 151 mL/min >60 [facility] Comment on above: GFR Calc Estimated GFR (MDRD) Non-Af Amer 125 mL/min >60 [facility] Comment on above: Non- GFR Calc Platelets bldOrdered By: Dr. Willingham on 10-03-2022 Platelets (Bld) [#/Vol] 244 10*3/uL 150-450 [facility] Serum or plasma calcium anay urement (mass/volume)Ordered By: Dr. Willingham on 10-03-2022 Calcium [Mass/Vol] 8.6 mg/dL 8.5-10.1 [facility] Serum or plasma creatinine m easurement (mass/volume)Ordered By: Dr. Willingham on 10-03-2022 Creatinine [Mass/Vol] 0.50 mg/dL 0.55-1.02 [facility] Comment on above: The validity of the calculated GFR & GFRAA in patients over 70 years has not been determined. Clinical correlation is essential. Serum or plasma urea nitroge n measurement (mass/volume)Ordered By: Dr. Willingham on 10-03-2022 Urea nitrogen [Mass/Vol] 21 mg/dL 7-18 [facility] Thin prep Papanicolaou smear with manual screeningOrdered By: Dr. Willingham on 10-03-2022 Thin prep Papanicolaou smear with manual screening 4 5-15 [facility] Absolute lymphocyte countOrd ered By: Dr. Watson on 10-02-2022 Lymphocytes Auto (Unsp spec) [#/Vol] 0.38 10*3/uL 0.83-4.51 [facility] Basophil percentageOrdered B y: Dr. Watson on 10-02-2022 Basophil percentage 1.9 mg/dL 2.5-4.9 [facility] Basophils/100 WBC (Bld) 0.2 % 0-1 [facility] Bilirubin [Mass/Vol] 0.50 mg/dL 0.20-1.00 [facility] Comment on above: For patients on eltr ombopag therapy, use of Dimension [place] TBIL is not recommended. Chloride [Moles/Vol] 109 mmol/L 98-107 [facility] Eosinophils/100 WBC (Bld) 1.1 % 0-5 [facility] Glucose [Mass/Vol] 122 mg/dL 74-106 [facility] Comment on above: Fasting Glucose resu lt from 100 to 125 mg/dL suggests IMPAIRED HOMEOSTASIS per A.D.A. criteria. Neutrophils (Bld) [#/Vol] 8.7 10*3/uL 2.0-7.7 [facility] Neutrophils/100 WBC (Bld) 83.6 % 47-70 [facility] Potassium [Moles/Vol] 3.8 mmol/L 3.5-5.1 [facility] Protein [Mass/Vol] 5.0 g/dL 6.4-8.2 [facility] Sodium [Moles/Vol] 141 mmol/L 136-145 [facility] WBC (Bld) [#/Vol] 10.4 10*3/uL 4.4-11.0 [facility] Blood erythrocytes count (nu mber/volume)Ordered By: Dr. Watson on 10-02-2022 RBC (Bld) [#/Vol] 3.00 10*6/uL 4.2-5.4 [facility] Blood hemoglobin measurement (mass/volume)Ordered By: Dr. Watson on 10-02-2022 Hemoglobin (Bld) [Mass/Vol] 9.2 g/dL 12.0-15.0 [facility] Blood lymphocytes/100 leukoc ytesOrdered By: Dr. Watson on 10-02-2022 Lymphocytes/100 WBC (Bld) 3.7 % 19-41 [facility] Blood manual differential co mment interpretation (narrative result)Ordered By: Dr. Watson on 10-02-2022 Manual differential comment Sukhwinder (Bld) [Interp] SCANNED [facility] Comment on above: LYMPHOPENIA NOTED Blood monocytes/100 leukocyt esOrdered By: Dr[address] Watson on 10-02-2022 Monocytes/100 WBC (Bld) 10.9 % 0-10 [facility] Blood platelet mean volumeOr dered By: Dr. Watson on 10-02-2022 Platelet mean volume (Bld) [Entitic vol] 11.9 fL 6.2-12.0 [facility] COVID-19 virus antigen assay Ordered By: Josephine Watson on 10-02-2022 SARS-CoV-2 (COVID-19) Ag IA.rapid Ql (Resp) [facility] COVID-19 virus antigen assay Ordered By: Dr. Watson on 10-02-2022 SARS-CoV-2 (COVID-19) Ag IA.rapid Ql (Resp) [facility] Determination of erythrocyte mean corpuscular volume (MCV)Ordered By: Dr. Watson on 10-02-2022 MCV (RBC) [Entitic vol] 97.3 fL 81-99 [facility] Hematocrit Auto (Bld) [Volum e fraction]Ordered By: Dr. Watson on 10-02-2022 Hematocrit (Bld) [Volume fraction] 29.2 % 37-47 [facility] Laboratory - Chemistry and C hemistry - challengeOrdered By: Dr. Watson on 10-02-2022 ALP [Catalytic activity/Vol] 74 U/L 45-117 [facility] ALT [Catalytic activity/Vol] 19 U/L 13-56 [facility] CO2 [Moles/Vol] 27.0 mmol/L 21.0-32.0 [facility] Globulin (S) [Mass/Vol] 2.9 g/dL 2.2-4.2 [facility] Urea nitrogen/Creatinine [Mass ratio] 27.0 mg/mg 10-20 [facility] Laboratory - Hematology and Cell countsOrdered By: Dr. Watson on 10-02-2022 Erythrocyte distribution width (RBC) [Entitic vol] 52.6 fL 35.1-43.9 [facility] Erythrocyte distribution width (RBC) [Ratio] 14.8 % 11.6-14.6 [facility] Immature granulocytes/100 WBC (Bld) 0.500 % 0.0-0.9 [facility] Comment on above: IG% - Immature Granu locytes (promyelocytes, myelocytes and metamyelocytes) > 1% indicates that a LEFT SHIFT is Present. MCH (RBC) [Entitic mass] 30.7 pg 27.0-32.0 [facility] Nucleated RBC/100 WBC (Bld) [Ratio] 0 % 0-5 [facility] MCHC Auto (RBC) [Mass/Vol]Or dered By: Dr. Watson on 10-02-2022 MCHC (RBC) [Mass/Vol] 31.5 g/dL 32-36 [facility] No Panel InformationOrdered By: Dr. Watson on 10-02-2022 Estimated Creatinine Clearance Calc 31.60 ml/min [facility] Estimated GFR (MDRD) Amer 96 mL/min >60 [facility] Comment on above: GFR Calc Estimated GFR (MDRD) Non-Af Amer 79 mL/min >60 [facility] Comment on above: Non- GFR Calc Platelets bldOrdered By: Dr. Watson on 10-02-2022 Platelets (Bld) [#/Vol] 199 10*3/uL 150-450 [facility] Serum or plasma albumin anay urement (mass/volume)Ordered By: Dr. Watson on 10-02-2022 Albumin [Mass/Vol] 2.1 g/dL 3.2-5.0 [facility] Serum or plasma albumin/glob ulin mass ratioOrdered By: Dr. Watson on 10-02-2022 Albumin/Globulin [Mass ratio] 0.7 {ratio} 0.9-2.4 [facility] Serum or plasma calcium anay urement (mass/volume)Ordered By: Dr. Watson on 10-02-2022 Calcium [Mass/Vol] 8.4 mg/dL 8.5-10.1 [facility] Serum or plasma creatinine m easurement (mass/volume)Ordered By: Dr. Watson on 10-02-2022 Creatinine [Mass/Vol] 0.74 mg/dL 0.55-1.02 [facility] Comment on above: The validity of the calculated GFR & GFRAA in patients over 70 years has not been determined. Clinical correlation is essential. Serum or plasma urea nitroge n measurement (mass/volume)Ordered By: Dr. Watson on 10-02-2022 Urea nitrogen [Mass/Vol] 20 mg/dL 7-18 [facility] Thin prep Papanicolaou smear with manual screeningOrdered By: Dr. Watson on 10-02-2022 Thin prep Papanicolaou smear with manual screening 69 U/L 15-37 [facility] Thin prep Papanicolaou smear with manual screening 5 5-15 [facility] Bilirubin Test strip Ql (U)O rdered By: Dr. Watson on 09-30-2022 Bilirubin Ql (U) Negative Negative [facility] Direct bilirubinOrdered By: Dr. Alaniz on 09-30-2022 Bilirubin.direct [Mass/Vol] 0.39 mg/dL 0.00-0.30 [facility] Ketones Test strip Ql (U)Ord ered By: Dr. Watson on 09-30-2022 Ketones Ql (U) 50 mg/dl Negative [facility] Laboratory - CoagulationOrde red By: Dr. Alaniz on 09-30-2022 aPTT Coag (Bld) [Time] 33.3 s 24.1-36.2 [facility] Nitrite Test strip Ql (U)Ord ered By: Dr. Watson on 09-30-2022 Nitrite Ql (U) Negative Negative [facility] No Panel InformationOrdered By: Dr. Watson on 09-30-2022 Vitamin D 25-Hydroxy 79.8 ng/mL [facility] Comment on above: Vitamin D 25(OH) Sta tus Range Deficiency <20 ng/mL (50nmol/L) Insufficiency 20 - 30 ng/mL (50 - 75 nmol/L) Sufficiency 30 - 100 ng/mL (75 - 250 nmol/L) Toxicity >100 ng/mL (>250 nmol/L) Protein Test strip Ql (U)Ord ered By: Dr. Watson on 09-30-2022 Protein Ql (U) Negative Negative [facility] Review by pathologistOrdered By: Dr. Hummel on 09-30-2022 Pathologist review Sukhwinder (Unsp spec) [Interp] Reviewed [facility] Comment on above: Previous reported re sult: September foll Edited by: RGOOD on 09/30/22:1252Neutrophilic leukocytosis.Clinical correlation necessary.Geoffrey Cristobal M.D. 09/30/22 AMENDED REPORT 09/30/22 1252 PATH REV previously reported as: Wendy neely Urine blood detectionOrdered By: Dr. Watson on 09-30-2022 RBC Ql (U) 10 /ul Negative [facility] Urine clarityOrdered By: Dr. Watson on 09-30-2022 Clarity (U) Clear Clear [facility] Urine color determinationOrd ered By: Dr. Watson on 09-30-2022 Color (U) Yellow Yellow [facility] Urine glucose detectionOrder ed By: Dr. Watson on 09-30-2022 Glucose Ql (U) Normal mg/dl Normal [facility] Urine leukocyte esterase det ection by dipstickOrdered By: Dr. Watson on 09-30-2022 Leukocyte esterase Test strip Ql (U) Negative Negative [facility] Urine pHOrdered By: Dr. Watson on 09-30-2022 pH (U) 7.0 [pH] 5.0 - 8.0 [facility] Urine specific gravity measu rementOrdered By: Dr. Watson on 09-30-2022 Specific gravity (U) [Rel density] 1.010 1.002-1.03 0 [facility] Urobilinogen Auto test strip Ql (U)Ordered By: Dr. Watson on 09-30-2022 Urobilinogen Ql (U) Normal mg/dl Normal [facility] Laboratory - Chemistry and C hemistry - challengeOrdered By: Dr. Hummel on 09-29-2022 Magnesium [Mass/Vol] 2.3 mg/dL 1.6-2.6 [facility] Laboratory - Drug toxicology Ordered By: Dr. Hoskins on 09-16-2022 Amphetamines Ql (U) Negative <1000 ng/mL [facility] Benzodiazepines Ql (U) Negative < 200 ng/mL [facility] Cannabinoids Screen Ql (U) Negative < 50 ng/mL [facility] Cocaine Ql (U) Negative < 300 ng/mL [facility] Opiates Ql (U) Negative < 300 ng/mL [facility] No Panel InformationOrdered By: Dr. Hoskins on 09-16-2022 MDMA (Ecstasy) Screen Negative < 500 ng/mL [facility] Miscellaneous Test See comment [facility] Comment on above: TEST RESULT LIMITSTr amadol Positive [id number] Tramad[place] [address] ng/mL Tqerqi=100 ___ [facility] ORIGINAL REPORT ON FILE IN LAB CONTAINS ADDITIONAL TEST SITE INFORMATION. Urine Barbiturates Screen Negative < 200 ng/mL [facility] Urine Drug Screen Comment [facility] Comment on above: CONFIRMATORY TESTING FOR ALL POSITIVE URINE DRUG SCREENRESULTS WILL ONLY BE SENT OUT UPON PHYSICIAN ORDER. VISTA Urine Drug Screen methods provide only preliminaryanalytical test results. A more specific alternate chemicalmethod must be used in order to obtain a confirmedanalytical result. Gas chromatography/mass spectrometery(GC/MS) is the preferred confirmatory method. Clinicalconsideration and professional judgement should be appliedto any drug of abuse test result, particularly whenpreliminary positive results are used. URINE TCA TESTING MUST BE ORDERED SEPARATELY. USE TESTMNEMONIC: [facility] Urine Methadone Screen Negative < 300 ng/mL [facility] Urine phencyclidine (PCP) de tectionOrdered By: Dr. Hoskins on 09-16-2022 Phencyclidine Ql (U) Negative < 25 ng/mL [facility] Final Surgical Pathology Rep meera 05-21-2022 Final Surgical Pathology Report . Pathology Reports Accession: Collected Date/Time: Received Date/Time: Pathologist: [id number] 05/19/2022 10:06 EST 05/20/2022 11:23 EST MD MARISOL COATS Final Surgical Pathology Report DIAGNOSIS: A. STOMACH, BIOPSY: - REACTIVE GASTROPATHY WITH MINIMAL CHRONIC INFLAMMATION - NEGATIVE FOR H. PYLORI COMMENT: [facility] [id number] CLINICAL INFORMATION: Procedure: EGD WITH BIOPSY Preoperative diagnosis: WEIGHT LOSS, ABNORMAL CT Postoperative diagnosis: SAME SPECIMEN: A GASTRIC BODY BIOPSY GROSS DESCRIPTION: A. Received in formalin, labeled with the patients name, Case #[id number], and gastric body 3 colon tissue fragments ranging from less than 0.1 to 0.4 cm. TS -1 Dictated by EUGENIA ALEXANDER MICROSCOPIC DESCRIPTION: The microscopic examination is performed, except in the case of Gross Only. Electronically Signed by Pathology Report verified by [facility] MARISOL COATS MD Sign out Date: 05/21/2022 11:40 Performing Lab: [facility], [address] [place] [address] Pathology Dept Normal [facility] ([place]) Absolute lymphocyte countOrd ered By: Dr. Adler on 05-11-2022 Lymphocytes Auto (Unsp spec) [#/Vol] 0.83 10*3/uL 0.83-4.51 [facility] Basophil percentageOrdered B y: Dr. Adler on 01-01-2023 Basophil percentage 0 SEEN /hpf 0-5 [facility] Basophils/100 WBC (Bld) 0.5 % 0-1 [facility] Bilirubin [Mass/Vol] 0.40 mg/dL 0.20-1.00 [facility] Comment on above: For patients on eltr ombopag therapy, use of Dimension [place] TBIL is not recommended. Chloride [Moles/Vol] 111 mmol/L 98-107 [facility] Eosinophils/100 WBC (Bld) 0.5 % 0-5 [facility] Glucose [Mass/Vol] 106 mg/dL 74-106 [facility] Comment on above: Fasting Glucose resu lt from 100 to 125 mg/dL suggests IMPAIRED HOMEOSTASIS per A.D.A. criteria. Lactate [Moles/Vol] 0.9 mmol/L 0.4-2.0 [facility] Neutrophils (Bld) [#/Vol] 6.5 10*3/uL 2.0-7.7 [facility] Neutrophils/100 WBC (Bld) 75.9 % 47-70 [facility] Potassium [Moles/Vol] 3.9 mmol/L 3.5-5.1 [facility] Protein [Mass/Vol] 6.6 g/dL 6.4-8.2 [facility] Sodium [Moles/Vol] 144 mmol/L 136-145 [facility] WBC (Bld) [#/Vol] 8.6 10*3/uL 4.4-11.0 [facility] Bilirubin Test strip Ql (U)O rdered By: Dr. Adler on 05-11-2022 Bilirubin Ql (U) Negative Negative [facility] Blood erythrocytes count (nu mber/volume)Ordered By: Dr. Adler on 05-11-2022 RBC (Bld) [#/Vol] 4.29 10*6/uL 4.2-5.4 [facility] Blood hemoglobin measurement (mass/volume)Ordered By: Dr. Adler on 05-11-2022 Hemoglobin (Bld) [Mass/Vol] 13.1 g/dL 12.0-15.0 [facility] Blood lymphocytes/100 leukoc ytesOrdered By: Dr. Adler on 05-11-2022 Lymphocytes/100 WBC (Bld) 9.7 % 19-41 [facility] Blood monocytes/100 leukocyt esOrdered By: Dr. Adler on 05-11-2022 Monocytes/100 WBC (Bld) 12.8 % 0-10 [facility] Blood platelet mean volumeOr dered By: Dr. Adler on 05-11-2022 Platelet mean volume (Bld) [Entitic vol] 11.0 fL 6.2-12.0 [facility] Determination of erythrocyte mean corpuscular volume (MCV)Ordered By: Dr. Adler on 05-11-2022 MCV (RBC) [Entitic vol] 96.7 fL 81-99 [facility] Hematocrit Auto (Bld) [Volum e fraction]Ordered By: Dr. Adler on 05-11-2022 Hematocrit (Bld) [Volume fraction] 41.5 % 37-47 [facility] Ketones Test strip Ql (U)Ord ered By: Dr. Adler on 05-11-2022 Ketones Ql (U) Negative Negative [facility] Laboratory - Chemistry and C hemistry - challengeOrdered By: Dr. Adler on 05-11-2022 ALP [Catalytic activity/Vol] 98 U/L 45-117 [facility] ALT [Catalytic activity/Vol] 18 U/L 13-56 [facility] CO2 [Moles/Vol] 30.0 mmol/L 21.0-32.0 [facility] Globulin (S) [Mass/Vol] 3.4 g/dL 2.2-4.2 [facility] Urea nitrogen/Creatinine [Mass ratio] 15.5 mg/mg 10-20 [facility] Laboratory - Hematology and Cell countsOrdered By: Dr. Adler on 05-11-2022 Erythrocyte distribution width (RBC) [Entitic vol] 49.5 fL 35.1-43.9 [facility] Erythrocyte distribution width (RBC) [Ratio] 14.1 % 11.6-14.6 [facility] Immature granulocytes/100 WBC (Bld) 0.600 % 0.0-0.9 [facility] Comment on above: IG% - Immature Granu locytes (promyelocytes, myelocytes and metamyelocytes) > 1% indicates that a LEFT SHIFT is Present. MCH (RBC) [Entitic mass] 30.5 pg 27.0-32.0 [facility] Nucleated RBC/100 WBC (Bld) [Ratio] 0 % 0-5 [facility] MCHC Auto (RBC) [Mass/Vol]Or dered By: Dr. Adler on 05-11-2022 MCHC (RBC) [Mass/Vol] 31.6 g/dL 32-36 [facility] Mucus LM Ql (Urine sed)Order ed By: Dr. Adler on 05-11-2022 Mucus Ql (Urine sed) 0 SEEN /hpf [facility] Nitrite Test strip Ql (U)Ord ered By: Dr. Adler on 05-11-2022 Nitrite Ql (U) Negative Negative [facility] No Panel InformationOrdered By: Dr. Adler on 05-11-2022 Estimated Creatinine Clearance Calc 33.27 ml/min [facility] Estimated GFR (MDRD) Amer 92 mL/min >60 [facility] Comment on above: GFR Calc Estimated GFR (MDRD) Non-Af Amer 76 mL/min >60 [facility] Comment on above: Non- GFR Calc Platelets bldOrdered By: Dr. Adler on 05-11-2022 Platelets (Bld) [#/Vol] 343 10*3/uL 150-450 [facility] Protein Test strip Ql (U)Ord ered By: Dr. Adler on 05-11-2022 Protein Ql (U) Negative Negative [facility] Serum or plasma albumin anay urement (mass/volume)Ordered By: Dr. Adler on 05-11-2022 Albumin [Mass/Vol] 3.2 g/dL 3.2-5.0 [facility] Serum or plasma albumin/glob ulin mass ratioOrdered By: Dr. Adler on 05-11-2022 Albumin/Globulin [Mass ratio] 0.9 {ratio} 0.9-2.4 [facility] Serum or plasma calcium anay urement (mass/volume)Ordered By: Dr. Adler on 05-11-2022 Calcium [Mass/Vol] 9.1 mg/dL 8.5-10.1 [facility] Serum or plasma creatinine m easurement (mass/volume)Ordered By: Dr. Adler on 05-11-2022 Creatinine [Mass/Vol] 0.77 mg/dL 0.55-1.02 [facility] Comment on above: The validity of the calculated GFR & GFRAA in patients over 70 years has not been determined. Clinical correlation is essential. Serum or plasma urea nitroge n measurement (mass/volume)Ordered By: Dr. Adler on 05-11-2022 Urea nitrogen [Mass/Vol] 12 mg/dL 7-18 [facility] Squamous epithelial cells de tection in urine sediment by light microscopyOrdered By: Dr. Adler on 05-11-2022 Epithelial cells.squamous LM Ql (Urine sed) 0-5 SEEN /hpf 5-10 [facility] Thin prep Papanicolaou smear with manual screeningOrdered By: Dr. Adler on 05-11-2022 Thin prep Papanicolaou smear with manual screening 27 U/L 15-37 [facility] Thin prep Papanicolaou smear with manual screening 3 5-15 [facility] Urine blood detectionOrdered By: Dr. Adler on 05-11-2022 RBC Ql (U) 250 /ul Negative [facility] RBC Ql (U) 10-25 SEEN /hpf 0-5 [facility] Urine clarityOrdered By: Dr. Adler on 05-11-2022 Clarity (U) Clear Clear [facility] Urine color determinationOrd ered By: Dr. Adler on 05-11-2022 Color (U) Yellow Yellow [facility] Urine glucose detectionOrder ed By: Dr. Adler on 05-11-2022 Glucose Ql (U) Normal mg/dl Normal [facility] Urine leukocyte esterase det ection by dipstickOrdered By: Dr. Adler on 05-11-2022 Leukocyte esterase Test strip Ql (U) 25 /ul Negative [facility] Urine pHOrdered By: Dr. Nati richardson on 05-11-2022 pH (U) 7.0 [pH] 5.0 - 8.0 [facility] Urine sediment bacteria coun t by microscopy (number/high power field)Ordered By: Dr. Adler on 05-11-2022 Bacteria LM.HPF (Urine sed) [#/Area] 0 /[HPF] None Seen [facility] Urine specific gravity measu rementOrdered By: Dr. dAler on 05-11-2022 Specific gravity (U) [Rel density] 1.015 1.002-1.03 0 [facility] Urobilinogen Auto test strip Ql (U)Ordered By: Dr. 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 Manning on 05-04-2022 Lymphocytes Auto (Unsp spec) [#/Vol] 0.71 10*3/uL 0.83-4.51 [facility] Basophil percentageOrdered B y: Dr. Manning on 05-04-2022 Basophil percentage 50-100 SEEN /hpf 0-5 [facility] Basophils/100 WBC (Bld) 0.5 % 0-1 [facility] Bilirubin [Mass/Vol] 0.60 mg/dL 0.20-1.00 [facility] Comment on above: For patients on eltr ombopag therapy, use of Dimension [place] TBIL is not recommended. Chloride [Moles/Vol] 107 mmol/L 98-107 [facility] Eosinophils/100 WBC (Bld) 0.9 % 0-5 [facility] Glucose [Mass/Vol] 94 mg/dL 74-106 [facility] Neutrophils (Bld) [#/Vol] 6.9 10*3/uL 2.0-7.7 [facility] Neutrophils/100 WBC (Bld) 77.7 % 47-70 [facility] Potassium [Moles/Vol] 3.8 mmol/L 3.5-5.1 [facility] Protein [Mass/Vol] 7.0 g/dL 6.4-8.2 [facility] Sodium [Moles/Vol] 142 mmol/L 136-145 [facility] WBC (Bld) [#/Vol] 8.8 10*3/uL 4.4-11.0 [facility] Bilirubin Test strip Ql (U)O rdered By: Dr. Manning on 05-04-2022 Bilirubin Ql (U) Negative Negative [facility] Blood erythrocytes count (nu mber/volume)Ordered By: Dr. Manning on 05-04-2022 RBC (Bld) [#/Vol] 4.26 10*6/uL 4.2-5.4 [facility] Blood hemoglobin measurement (mass/volume)Ordered By: Dr. Manning on 05-04-2022 Hemoglobin (Bld) [Mass/Vol] 13.0 g/dL 12.0-15.0 [facility] Blood lymphocytes/100 leukoc ytesOrdered By: Dr. Manning on 05-04-2022 Lymphocytes/100 WBC (Bld) 8.0 % 19-41 [facility] Blood monocytes/100 leukocyt esOrdered By: Dr. Manning on 05-04-2022 Monocytes/100 WBC (Bld) 12.2 % 0-10 [facility] Blood platelet mean volumeOr dered By: Dr. Manning on 05-04-2022 Platelet mean volume (Bld) [Entitic vol] 10.6 fL 6.2-12.0 [facility] COVID-19 virus antigen assay Ordered By: Dr. Manning on 05-04-2022 SARS-CoV-2 (COVID-19) Ag IA.rapid Ql (Resp) [facility] Determination of erythrocyte mean corpuscular volume (MCV)Ordered By: Dr. Manning on 05-04-2022 MCV (RBC) [Entitic vol] 97.2 fL 81-99 [facility] Hematocrit Auto (Bld) [Volum e fraction]Ordered By: Dr. Manning on 05-04-2022 Hematocrit (Bld) [Volume fraction] 41.4 % 37-47 [facility] Ketones Test strip Ql (U)Ord ered By: Dr. Manning on 05-04-2022 Ketones Ql (U) Negative Negative [facility] Laboratory - Chemistry and C hemistry - challengeOrdered By: Dr. Manning on 05-04-2022 ALP [Catalytic activity/Vol] 109 U/L 45-117 [facility] ALT [Catalytic activity/Vol] 22 U/L 13-56 [facility] CO2 [Moles/Vol] 29.0 mmol/L 21.0-32.0 [facility] Globulin (S) [Mass/Vol] 3.6 g/dL 2.2-4.2 [facility] Lipase [Catalytic activity/Vol] 103 U/L 73-393 [facility] Urea nitrogen/Creatinine [Mass ratio] 21.6 mg/mg 10-20 [facility] Laboratory - Hematology and Cell countsOrdered By: Dr. Manning on 05-04-2022 Erythrocyte distribution width (RBC) [Entitic vol] 51.4 fL 35.1-43.9 [facility] Erythrocyte distribution width (RBC) [Ratio] 14.6 % 11.6-14.6 [facility] Immature granulocytes/100 WBC (Bld) 0.700 % 0.0-0.9 [facility] Comment on above: IG% - Immature Granu locytes (promyelocytes, myelocytes and metamyelocytes) > 1% indicates that a LEFT SHIFT is Present. MCH (RBC) [Entitic mass] 30.5 pg 27.0-32.0 [facility] Nucleated RBC/100 WBC (Bld) [Ratio] 0 % 0-5 [facility] MCHC Auto (RBC) [Mass/Vol]Or dered By: Dr. Manning on 05-04-2022 MCHC (RBC) [Mass/Vol] 31.4 g/dL 32-36 [facility] Mucus LM Ql (Urine sed)Order ed By: Dr. Manning on 05-04-2022 Mucus Ql (Urine sed) 0 SEEN /hpf [facility] Nitrite Test strip Ql (U)Ord ered By: Dr. Manning on 05-04-2022 Nitrite Ql (U) Negative Negative [facility] No Panel InformationOrdered By: Dr. Manning on 05-04-2022 Estimated Creatinine Clearance Calc 40.82 ml/min [facility] Estimated GFR (MDRD) Amer 84 mL/min >60 [facility] Comment on above: GFR Calc Estimated GFR (MDRD) Non-Af Amer 70 mL/min >60 [facility] Comment on above: Non- GFR Calc Platelets bldOrdered By: Dr. Manning on 05-04-2022 Platelets (Bld) [#/Vol] 357 10*3/uL 150-450 [facility] Protein Test strip Ql (U)Ord ered By: Dr. Manning on 05-04-2022 Protein Ql (U) 30 mg/dl Negative [facility] Serum or plasma albumin anay urement (mass/volume)Ordered By: Dr. Manning on 05-04-2022 Albumin [Mass/Vol] 3.4 g/dL 3.2-5.0 [facility] Serum or plasma albumin/glob ulin mass ratioOrdered By: Dr. Manning on 05-04-2022 Albumin/Globulin [Mass ratio] 0.9 {ratio} 0.9-2.4 [facility] Serum or plasma calcium anay urement (mass/volume)Ordered By: Dr. Manning on 05-04-2022 Calcium [Mass/Vol] 9.7 mg/dL 8.5-10.1 [facility] Serum or plasma creatinine m easurement (mass/volume)Ordered By: Dr. Manning on 05-04-2022 Creatinine [Mass/Vol] 0.83 mg/dL 0.55-1.02 [facility] Comment on above: The validity of the calculated GFR & GFRAA in patients over 70 years has not been determined. Clinical correlation is essential. Serum or plasma urea nitroge n measurement (mass/volume)Ordered By: Dr. Manning on 05-04-2022 Urea nitrogen [Mass/Vol] 18 mg/dL 7-18 [facility] Squamous epithelial cells de tection in urine sediment by light microscopyOrdered By: Dr. Manning on 05-04-2022 Epithelial cells.squamous LM Ql (Urine sed) 0-5 SEEN /hpf 5-10 [facility] Thin prep Papanicolaou smear with manual screeningOrdered By: Dr. Manning on 05-04-2022 Thin prep Papanicolaou smear with manual screening 38 U/L 15-37 [facility] Thin prep Papanicolaou smear with manual screening 6 5-15 [facility] Urine blood detectionOrdered By: Dr. Manning on 05-04-2022 RBC Ql (U) 50 /ul Negative [facility] RBC Ql (U) 0-5 SEEN /hpf 0-5 [facility] Urine clarityOrdered By: Dr. Manning on 05-04-2022 Clarity (U) Sl. Cloudy Clear [facility] Urine color determinationOrd ered By: Dr. Manning on 05-04-2022 Color (U) Yellow Yellow [facility] Urine glucose detectionOrder ed By: Dr. Manning on 05-04-2022 Glucose Ql (U) Normal mg/dl Normal [facility] Urine leukocyte esterase det ection by dipstickOrdered By: Dr. Manning on 05-04-2022 Leukocyte esterase Test strip Ql (U) 500 /ul Negative [facility] Urine pHOrdered By: Dr. Manning o n 05-04-2022 pH (U) 5.0 [pH] 5.0 - 8.0 [facility] Urine sediment bacteria coun t by microscopy (number/high power field)Ordered By: Dr. Manning on 05-04-2022 Bacteria LM.HPF (Urine sed) [#/Area] 3 /[HPF] None Seen [facility] Urine specific gravity measu rementOrdered By: Dr. Manning on 05-04-2022 Specific gravity (U) [Rel density] 1.020 1.002-1.03 0 [facility] Urobilinogen Auto test strip Ql (U)Ordered By: Dr. Manning on 05-04-2022 Urobilinogen Ql (U) Normal mg/dl Normal [facility] EMERGENCY REPORTon 2 EMERGENCY REPORT [facility] EMERGENCY ROOM REPORT NAME ACCOUNT SEX AGE ADMIT DISCHARGE PT MED. RECORD# NUMBER DATE DATE TYPE HUYEN VALERIO I [id number] F 81 04/27/22 04/27/22 [id number] ROOM: ER DATE OF : 1940 DICTATING PHYSICIAN: Lorenzo Monahan CHIEF COMPLAINT: Head congestion, sore throat and fever. HISTORY OF PRESENT ILLNESS: The patient began on Thursday, 4 days ago, with symptoms. She states that it mainly just started with some mild sore throat and head congestion and has gotten gradually worse. She has had some fever with this, very minimal cough, nausea but no vomiting, generalized aching, and fatigue. She is able to get up and ambulate. She does go from room to room without difficulty. She is not complaining of shortness of breath. No chest pain. No recent injuries. PAST MEDICAL HISTORY: Significant for mainly rheumatoid arthritis. She does have a history of SVT in the past. PAST SURGICAL HISTORY: She has had knee replacements, hernia and cardiac ablation. MEDICATIONS: Per medication reconciliation list and include methotrexate for her rheumatoid arthritis. SOCIAL HISTORY: She lives at home. She does not smoke or drink alcohol. PHYSICAL EXAMINATION: GENERAL: This is an 81-year-old, pleasant female who is alert and appropriate. She does not appear toxic or in any distress. She ambulates well. SKIN: Her skin is pink, warm and dry. HEENT: Pupils are equal, round, and reactive to light. Extraocular muscles are intact. TMs, nose, mouth and throat are all within normal limits. NECK: Her neck is supple without any adenopathy. LUNGS: Lungs are clear without crackles or wheezes. CARDIAC: Cardiac examination is a regular rhythm without any ectopy, murmurs, gallops or rubs. ABDOMEN: Abdomen is soft and nontender. EXTREMITIES: She has good peripheral pulses and good capillary refill. No redness, tenderness or asymmetry. VITAL SIGNS: Temperature is 99.1, pulse 80, respirations 18, blood pressure 164/96, and oxygen saturation 97%. DIAGNOSTIC DATA: We do not have any influenza swabs. I did check for COVID-19, and it was a positive swab. EMERGENCY DEPARTMENT COURSE AND TREATMENT: I discussed management with her. With her age, rheumatoid arthritis and some degree of being immunocompromised, I felt that she certainly would be a candidate for Paxlovid, and I Page 1 of 2 HUYEN VALERIO I Emergency Room Report HUYEN VALERIO I : 1940 discussed this with her. She was in agreement with that. She has no history of any kidney disease or impairment. She was given a prescription for standard-dose Paxlovid. She is to follow up with her family doctor in 1-2 days, returning if symptoms worsen. DIAGNOSIS: COVID-19. Dictated By: Lorenzo Monahan MD 04/27/22 13:04 JOB #: [id number] Transcribed By: trinidad 04/28/22 09:00 Electronically signed by: IVIS Monahan M.D. 05/02/22 07:09 Page 2 of 2 HUYEN VALERIO I Emergency Room Report Normal [facility] CORONAVIRUS (SARS) ANTIGEN T ESTon 04-27-2022 EXTERNAL QC DONE? YES Normal [facility] Comment on above: Performed By: #### [id number] #### [facility],[address] [place] [address] INTERNAL CONTROL PASS Normal [facility] Comment on above: Performed By: #### [id number] #### [facility],[address] [place] [id number] SARS ANTIGEN Positive Abnormal NORMAL: NEGATIVE [facility] Comment on above: Result Comment: { CA LLED TO FELIBERTO/KYLAH 1249 { READ BACK BY [id number] Performed By: #### 2 [id number] #### [facility],[address] [place] [address] SEND TO ? YES Normal [facility] Comment on above: Result Comment: SARS -CoV-2 THIS TEST IS BEING USED UNDER THE FDA EUA PROCEDURE. THIS ASSAY HAS BEEN VALIDATED AT [facility] FOR USE WITH NASAL AND NASOPHARYNGEAL SWAB SPECIMENS. INTERPRETIVE DATA TEST RESULTS SHOULD ALWAYS BE CONSIDERED IN THE CONTEXT OF CLINICAL OBSERVATIONS AND EPIDEMIOLOGICAL DATA IN MAKING FINAL DIAGNOSIS AND PATIENT MANAGEMENT DECISIONS. PATIENT MANAGEMENT SHOULD FOLLOW CURRENT CDC GUIDELINES. THE CASSIE SARS ANTIGEN LUIS MIGUEL DOES NOT DIFFERENTIATE BETWEEN SARS-CoV & SARS-CoV-2. A POSITIVE TEST RESULT INDICATES THE PRESENCE OF SARS-CoV-2 NUCLEOCAPSID PROTEIN ANTIGEN, AND THE PATIENT IS INFECTED WITH THE VIRUS AND PRESUMED TO BE CONTAGIOUS. A NEGATIVE TEST RESULT FOR THIS TEST MEANS THAT SARS-CoV-2 NUCLEOCAPSID PROTEIN ANTIGEN WAS NOT PRESENT IN THE SPECIMEN ABOVE THE LIMIT OF DETECTION. HOWEVER, A NEGATIVE RESULT DOES NOT RULE OUT COVID-19 AND SHOULD NOT BE USED THE SOLE BASIS FOR TREATMENT OR PATIENT MANAGEMENT DECISIONS. A NEGATIVE RESULT DOES NOT EXCLUDE THE POSSIBILITY OF COVID-19. NEGATIVE RESULTS, FROM PATIENTS WITH SYMPTOM ONSET BEYOND FIVE DAYS, SHOULD BE TREATED PRESUMPTIVE AND CONFIRMATION WITH A MOLECULAR ASSAY, IF NECESSARY, FOR PATIENT MANAGEMENT, MAY BE PERFORMED. WHEN DIAGNOSTIC TESTING IS NEGATIVE, THE POSSIBLILTY OF A FALSE NEGATIVE RESULT SHOULD BE CONSIDERED IN THE CONTEXT OF A PATIENT'S RECENT EXPOSURES AND THE PRESENCE OF CLINICAL SIGNS AND SYMPTOMS CONSISTENT WITH COVID-19. THE POSSIBILITY OF A FALSE NEGATIVE RESULT SHOULD ESPECIALLY BE CONSIDERED IF THE PATIENT'S RECENT EXPOSURES OR CLINICAL PRESENTATION INDICATE THAT COVID-19 IS LIKELY, AND DIAGNOSTIC TESTS FOR OTHER CAUSES OF ILLNESS (e.g., OTHER RESPIRATORY ILLNESS) ARE NEGATIVE. IF COVID-19 IS STILL SUSPECTED BASED ON EXPOSURE HISTORY TOGETHER WITH OTHER CLINICAL FINDINGS, RE-TESTING SHOULD BE CONSIDERED BY HEALTHCARE PROVIDERS IN CONSULTATION WITH PUBLIC HEALTH AUTHORITIES. Performed By: #### 2 [id number] #### [facility],[address] [address] Laboratory - Drug toxicology on 01-28-2022 Amphetamines Ql (U) Negative <1000 ng/mL [facility] Work Phone: [phone] Benzodiazepines Ql (U) Negative < 200 ng/mL [facility] Work Phone: [phone] Cannabinoids Screen Ql (U) Negative < 50 ng/mL [facility] Work Phone: [phone] Cocaine Ql (U) Negative < 300 ng/mL [facility] Work Phone: [phone] Opiates Ql (U) Negative < 300 ng/mL [facility] Work Phone: [phone] Panel Informationon 01-28 MDMA (Ecstasy) Screen Negative < 500 ng/mL [facility] Work Phone: [phone] Miscellaneous Test See comment [facility] Work Phone: [phone] Comment on above: TEST RESULT LIMITSTr amadol Positive [id number] Tramadol Conf, [place], [place] >[id number] ___ TESTING PERFORMED AT [facility]. ORIGINAL REPORT ON FILE IN LAB CONTAINS ADDITIONAL TEST SITE INFORMATION. Urine Barbiturates Screen Negative < 200 ng/mL [facility] Work Phone: [phone] Urine Drug Screen Comment [facility] Work Phone: [phone] Comment on above: CONFIRMATORY TESTING FOR ALL POSITIVE URINE DRUG SCREENRESULTS WILL ONLY BE SENT OUT UPON PHYSICIAN ORDER. The results of Urine Drug Screen methods provide only preliminary analytical test results. A more specific alternate chemical method must be used in order to obtain a confirmed analytical result. Gas chromatography/mass spectrometery (GC/MS) is the preferred confirmatory method. Clinical consideration and professional judgement should be applied to any drug of abuse test result, particularly whenpreliminary positive results are used. Urine Methadone Screen Negative < 300 ng/mL [facility] Work Phone: Screening buprenorphine dete ctionon 01-28-2022 Buprenorphine Screen Ql (Unsp spec) Positive <10 ng/mL [facility] Work Phone: Urine phencyclidine (PCP) de tectionon 01-28-2022 Phencyclidine Ql (U) Negative < 25 ng/mL [facility] Work Phone: Absolute lymphocyte counton 10-18-2021 Lymphocytes Auto (Unsp spec) [#/Vol] 1.03 10*3/uL 0.83-4.51 [facility] Work Phone: Basophil percentageon 2021 Basophils/100 WBC (Bld) 0.5 % 0-1 [facility] Work Phone: Chloride [Moles/Vol] 104 mmol/L 98-107 [facility] Work Phone: Eosinophils/100 WBC (Bld) 0.5 % 0-5 [facility] Work Phone: Glucose [Mass/Vol] 100 mg/dL 74-106 [facility] Work Phone: Comment on above: Fasting Glucose resu lt from 100 to 125 mg/dL suggests IMPAIRED HOMEOSTASIS per A.D.A. criteria. Neutrophils (Bld) [#/Vol] 10.2 10*3/uL 2.0-7.7 [facility] Work Phone: Neutrophils/100 WBC (Bld) 79.9 % 47-70 [facility] Work Phone: Potassium [Moles/Vol] 4.1 mmol/L 3.5-5.1 [facility] Work Phone: Sodium [Moles/Vol] 138 mmol/L 136-145 [facility] Work Phone: WBC (Bld) [#/Vol] 12.7 10*3/uL 4.4-11.0 [facility] Work Phone: Blood erythrocytes count (nu mber/volume)on 10-18-2021 RBC (Bld) [#/Vol] 4.60 10*6/uL 4.2-5.4 [facility] Work Phone: Blood hemoglobin measurement (mass/volume)on 10-18-2021 Hemoglobin (Bld) [Mass/Vol] 13.5 g/dL 12.0-15.0 [facility] Work Phone: Blood lymphocytes/100 leukoc yteson 10-18-2021 Lymphocytes/100 WBC (Bld) 8.1 % 19-41 [facility] Work Phone: Blood monocytes/100 leukocyt eson 10-18-2021 Monocytes/100 WBC (Bld) 10.5 % 0-10 [facility] Work Phone: Blood platelet mean volumeon 10-18-2021 Platelet mean volume (Bld) [Entitic vol] 10.9 fL 6.2-12.0 [facility] Work Phone: Determination of erythrocyte mean corpuscular volume (MCV)on 10-18-2021 MCV (RBC) [Entitic vol] 94.6 fL 81-99 [facility] Work Phone: Hematocrit Auto (Bld) [Volum e fraction]on 10-18-2021 Hematocrit (Bld) [Volume fraction] 43.5 % 37-47 [facility] Work Phone: Laboratory - Chemistry and C hemistry - challengeon 10-18-2021 CO2 [Moles/Vol] 29.0 mmol/L 21.0-32.0 [facility] Work Phone: Urea nitrogen/Creatinine [Mass ratio] 28.9 mg/mg 10-20 [facility] Work Phone: Laboratory - Hematology and Cell countson 10-18-2021 Erythrocyte distribution width (RBC) [Entitic vol] 49.3 fL 35.1-43.9 [facility] Work Phone: Erythrocyte distribution width (RBC) [Ratio] 14.6 % 11.6-14.6 [facility] Work Phone: [phone] Immature granulocytes/100 WBC (Bld) 0.500 % 0.0-0.9 [facility] Work Phone: Comment on above: IG% - Immature Granu locytes (promyelocytes, myelocytes and metamyelocytes) > 1% indicates that a LEFT SHIFT is Present. MCH (RBC) [Entitic mass] 29.3 pg 27.0-32.0 [facility] Work Phone: Nucleated RBC/100 WBC (Bld) [Ratio] 0 % 0-5 [facility] Work Phone: [phone] MCHC Auto (RBC) [Mass/Vol]on 10-18-2021 MCHC (RBC) [Mass/Vol] 31.0 g/dL 32-36 [facility] Work Phone: No Panel Informationon 10-18 Estimated Creatinine Clearance Calc 34.59 ml/min [facility] Work Phone: [phone] Estimated GFR (MDRD) Amer 118 mL/min >60 [facility] Work Phone: [phone] Comment on above: GFR Calc Estimated GFR (MDRD) Non-Af Amer 97 mL/min >60 [facility] Work Phone: Comment on above: Non- GFR Calc Platelets bldon 10-18-2021 Platelets (Bld) [#/Vol] 400 10*3/uL 150-450 [facility] Work Phone: [phone] Serum or plasma calcium anay urement (mass/volume)on 10-18-2021 Calcium [Mass/Vol] 9.5 mg/dL 8.5-10.1 [facility] Work Phone: [phone] Serum or plasma creatinine m easurement (mass/volume)on 10-18-2021 Creatinine [Mass/Vol] 0.62 mg/dL 0.55-1.02 [facility] Work Phone: Comment on above: The validity of the calculated GFR & GFRAA in patients over 70 years has not been determined. Clinical correlation is essential. Serum or plasma urea nitroge n measurement (mass/volume)on 10-18-2021 Urea nitrogen [Mass/Vol] 18 mg/dL 7-18 [facility] Work Phone: Thin prep Papanicolaou smear with manual screeningon 10-18-2021 Thin prep Papanicolaou smear with manual screening 5 5-15 [facility] Work Phone: [phone] Basophil percentageon 2021 Chloride [Moles/Vol] 108 mmol/L 98-107 [facility] Work Phone: [phone] Glucose [Mass/Vol] 103 mg/dL 74-106 [facility] Work Phone: Comment on above: Fasting Glucose resu lt from 100 to 125 mg/dL suggests IMPAIRED HOMEOSTASIS per A.D.A. criteria. Potassium [Moles/Vol] 4.6 mmol/L 3.5-5.1 [facility] Work Phone: [phone] Sodium [Moles/Vol] 141 mmol/L 136-145 [facility] Work Phone: [phone] WBC (Bld) [#/Vol] 11.7 10*3/uL 4.4-11.0 [facility] Work Phone: [phone] Blood erythrocytes count (nu mber/volume)on 09-30-2021 RBC (Bld) [#/Vol] 4.34 10*6/uL 4.2-5.4 [facility] Work Phone: [phone] Blood hemoglobin measurement (mass/volume)on 09-30-2021 Hemoglobin (Bld) [Mass/Vol] 13.2 g/dL 12.0-15.0 [facility] Work Phone: [phone] Blood platelet mean volumeon 09-30-2021 Platelet mean volume (Bld) [Entitic vol] 11.3 fL 6.2-12.0 [facility] Work Phone: [phone] Determination of erythrocyte mean corpuscular volume (MCV)on 09-30-2021 MCV (RBC) [Entitic vol] 96.8 fL 81-99 [facility] Work Phone: [phone] Hematocrit Auto (Bld) [Volum e fraction]on 09-30-2021 Hematocrit (Bld) [Volume fraction] 42.0 % 37-47 [facility] Work Phone: [phone] Laboratory - Chemistry and C hemistry - challengeon 09-30-2021 CO2 [Moles/Vol] 31.0 mmol/L 21.0-32.0 [facility] Work Phone: [phone] Urea nitrogen/Creatinine [Mass ratio] 23.9 mg/mg 10-20 [facility] Work Phone: [phone] Laboratory - Hematology and Cell countson 09-30-2021 Erythrocyte distribution width (RBC) [Entitic vol] 51.9 fL 35.1-43.9 [facility] Work Phone: [phone] Erythrocyte distribution width (RBC) [Ratio] 14.6 % 11.6-14.6 [facility] Work Phone: [phone] MCH (RBC) [Entitic mass] 30.4 pg 27.0-32.0 [facility] Work Phone: [phone] MCHC Auto (RBC) [Mass/Vol]on 09-30-2021 MCHC (RBC) [Mass/Vol] 31.4 g/dL 32-36 [facility] Work Phone: No Panel Informationon 09-30 Estimated GFR (MDRD) Amer 94 mL/min >60 [facility] Work Phone: Comment on above: GFR Calc Estimated GFR (MDRD) Non-Af Amer 78 mL/min >60 [facility] Work Phone: [phone] Comment on above: Non- GFR Calc Platelets bldon 09-30-2021 Platelets (Bld) [#/Vol] 290 10*3/uL 150-450 [facility] Work Phone: [phone] Serum or plasma calcium anay urement (mass/volume)on 09-30-2021 Calcium [Mass/Vol] 9.7 mg/dL 8.5-10.1 [facility] Work Phone: Serum or plasma creatinine m easurement (mass/volume)on 09-30-2021 Creatinine [Mass/Vol] 0.75 mg/dL 0.55-1.02 [facility] Work Phone: Comment on above: The validity of the calculated GFR & GFRAA in patients over 70 years has not been determined. Clinical correlation is essential. Serum or plasma urea nitroge n measurement (mass/volume)on 09-30-2021 Urea nitrogen [Mass/Vol] 18 mg/dL 7-18 [facility] Work Phone: Thin prep Papanicolaou smear with manual screeningon 09-30-2021 Thin prep Papanicolaou smear with manual screening 2 5-15 [facility] Work Phone: Absolute lymphocyte counton 07-01-2021 Lymphocytes Auto (Unsp spec) [#/Vol] 0.65 10*3/uL 0.83-4.51 [facility] Work Phone: Basophil percentageon 2021 Basophils/100 WBC (Bld) 0.6 % 0-1 [facility] Work Phone: Bilirubin [Mass/Vol] 0.40 mg/dL 0.20-1.00 [facility] Work Phone: Comment on above: For patients on eltr ombopag therapy, use of [employer] [place] TBIL is not recommended. Chloride [Moles/Vol] 107 mmol/L 98-107 [facility] Work Phone: Eosinophils/100 WBC (Bld) 2.5 % 0-5 [facility] Work Phone: Glucose [Mass/Vol] 88 mg/dL 74-106 [facility] Work Phone: Neutrophils (Bld) [#/Vol] 6.2 10*3/uL 2.0-7.7 [facility] Work Phone: Neutrophils/100 WBC (Bld) 76.5 % 47-70 [facility] Work Phone: Potassium [Moles/Vol] 3.9 mmol/L 3.5-5.1 [facility] Work Phone: Protein [Mass/Vol] 6.7 g/dL 6.4-8.2 [facility] Work Phone: Sodium [Moles/Vol] 141 mmol/L 136-145 [facility] Work Phone: WBC (Bld) [#/Vol] 8.1 10*3/uL 4.4-11.0 [facility] Work Phone: Blood erythrocytes count (nu mber/volume)on 07-01-2021 RBC (Bld) [#/Vol] 4.20 10*6/uL 4.2-5.[address] [facility] Work Phone: Blood hemoglobin measurement (mass/volume)on 07-01-2021 Hemoglobin (Bld) [Mass/Vol] 13.2 g/dL 12.0-15.0 [facility] Work Phone: Blood lymphocytes/100 leukoc yteson 07-01-2021 Lymphocytes/100 WBC (Bld) 8.1 % 19-41 [facility] Work Phone: Blood monocytes/100 leukocyt eson 07-01-2021 Monocytes/100 WBC (Bld) 11.9 % 0-10 [facility] Work Phone: Blood platelet mean volumeon 07-01-2021 Platelet mean volume (Bld) [Entitic vol] 12.1 fL 6.2-12.0 [facility] Work Phone: Determination of erythrocyte mean corpuscular volume (MCV)on 07-01-2021 MCV (RBC) [Entitic vol] 96.2 fL 81-99 [facility] Work Phone: Hematocrit Auto (Bld) [Volum e fraction]on 07-01-2021 Hematocrit (Bld) [Volume fraction] 40.4 % 37-47 [facility] Work Phone: [phone] Laboratory - Chemistry and C hemistry - challengeon 07-01-2021 ALP [Catalytic activity/Vol] 98 U/L 45-117 [facility] Work Phone: [phone] ALT [Catalytic activity/Vol] 18 U/L 13-56 [facility] Work Phone: [phone] CO2 [Moles/Vol] 30.0 mmol/L 21.0-32.0 [facility] Work Phone: [phone] Globulin (S) [Mass/Vol] 3.2 g/dL 2.2-4.2 [facility] Work Phone: [phone] Urea nitrogen/Creatinine [Mass ratio] 18.3 mg/mg 10-20 [facility] Work Phone: [phone] Laboratory - Hematology and Cell countson 07-01-2021 Erythrocyte distribution width (RBC) [Entitic vol] 55.9 fL 35.1-43.9 [facility] Work Phone: [phone] Erythrocyte distribution width (RBC) [Ratio] 15.9 % 11.6-14.6 [facility] Work Phone: [phone] Immature granulocytes/100 WBC (Bld) 0.400 % 0.0-0.9 [facility] Work Phone: [phone] Comment on above: IG% - Immature Granu locytes (promyelocytes, myelocytes and metamyelocytes) > 1% indicates that a LEFT SHIFT is Present. MCH (RBC) [Entitic mass] 31.4 pg 27.0-32.0 [facility] Work Phone: [phone] Nucleated RBC/100 WBC (Bld) [Ratio] 0 % 0-5 [facility] Work Phone: [phone] MCHC Auto (RBC) [Mass/Vol]on 07-01-2021 MCHC (RBC) [Mass/Vol] 32.7 g/dL 32-36 [facility] Work Phone: [phone] Panel Informationon 07-01 Estimated GFR (MDRD) Amer 93 mL/min >60 [facility] Work Phone: Comment on above: GFR Calc Estimated GFR (MDRD) Non-Af Amer 77 mL/min >60 [facility] Work Phone: Comment on above: Non- GFR Calc Platelets bldon 07-01-2021 Platelets (Bld) [#/Vol] 296 10*3/uL 150-450 [facility] Work Phone: Serum or plasma albumin anay urement (mass/volume)on 07-01-2021 Albumin [Mass/Vol] 3.5 g/dL 3.2-5.0 [facility] Work Phone: Serum or plasma albumin/glob ulin mass ratioon 07-01-2021 Albumin/Globulin [Mass ratio] 1.1 {ratio} 0.9-2.4 [facility] Work Phone: Serum or plasma calcium anay urement (mass/volume)on 07-01-2021 Calcium [Mass/Vol] 9.0 mg/dL 8.5-10.1 [facility] Work Phone: Serum or plasma creatinine m easurement (mass/volume)on 07-01-2021 Creatinine [Mass/Vol] 0.76 mg/dL 0.55-1.02 [facility] Work Phone: Comment on above: The validity of the calculated GFR & GFRAA in patients over 70 years has not been determined. Clinical correlation is essential. Serum or plasma urea nitroge n measurement (mass/volume)on 07-01-2021 Urea nitrogen [Mass/Vol] 14 mg/dL 7-18 [facility] Work Phone: [phone] Thin prep Papanicolaou smear with manual screeningon 07-01-2021 Thin prep Papanicolaou smear with manual screening 32 U/L 15-37 [facility] Work Phone: [phone] Thin prep Papanicolaou smear with manual screening 4 5-15 [facility] Work Phone: Clinical Lists Update: [employer] 11-24-2016 Thyroid stimulating hormone (TSH) 1.090 u[iU]/mL Invalid Interpretation Code [employer] Work Phone: [phone] Erythrocytes (RBC) 3.98 10*6/uL Invalid Interpretation Code [employer] Work Phone: [phone] Hematocrit (HCT) 41.8 % Invalid Interpretation Code [employer] Work Phone: [phone] Hemoglobin (HGB) 12.5 g/dL Invalid Interpretation Code [employer] Work Phone: [phone] MCH 31.4 pg Invalid Interpretation Code [employer] Work Phone: [phone] MCHC 29.9 g/dL Low [employer] Work Phone: [phone] MCV 105.0 fL High [employer] Work Phone: [phone] Platelets 310 10*3/mm3 Invalid Interpretation Code [employer] Work Phone: [phone] PMV by Dawna 11.6 fL Invalid Interpretation Code [employer] Work Phone: [phone] RDW-CA 15.0 % Invalid Interpretation Code [employer] Work Phone: [phone] WBC (Leukocytes) 7.36 10*3/uL Invalid Interpretation Code [employer] Work Phone: [phone] Clinical Lists Update: [employer] 10-27-2016 Alanine aminotransferase (ALT) 8 U/L Invalid Interpretation Code [employer] Work Phone: [phone] Albumin 4.0 g/dL Invalid Interpretation Code [employer] Work Phone: [phone] Alkaline phosphatase (ALP) 92 U/L Invalid Interpretation Code [employer] Work Phone: [phone] ALP enzyme act/vol (Bld) 92 U/L [employer] Work Phone: [phone] Aspartate aminotransferase (AST) 22 U/L Invalid Interpretation Code [employer] Work Phone: [phone] Bilirubin (total) 0.8 mg/dL Invalid Interpretation Code [employer] Work Phone: [phone] BUN/Creatinine Ratio 19.8 mg/mg Invalid Interpretation Code [employer] Work Phone: [phone] Calcium 9.5 mg/dL Invalid Interpretation Code [employer] Work Phone: [phone] Chloride 108 mmol/L Invalid Interpretation Code [employer] Work Phone: [phone] Cholesterol 244 mg/dL Invalid Interpretation Code [employer] Work Phone: [phone] Cholesterol to HDL Ratio 25 {ratio} Invalid Interpretation Code [employer] Work Phone: [phone] CO2 30 mmol/L Invalid Interpretation Code [employer] Work Phone: [phone] CO2 ppres (BldV) 30 mmol/L [employer] Work Phone: [phone] Creatinine 0.83 mg/dL Invalid Interpretation Code [employer] Work Phone: [phone] Globulin 2.3 g/dL Invalid Interpretation Code [employer] Work Phone: [phone] Globulin mass conc (S) 2.3 g/dL [employer] Work Phone: [phone] Glucose 88 mg/dL Invalid Interpretation Code [employer] Work Phone: [phone] Glucose mass conc 88 mg/dL [employer] Work Phone: [phone] HDL Cholesterol 98 mg/dL Invalid Interpretation Code [employer] Work Phone: [phone] LDL Cholesterol 125 mg/dL Invalid Interpretation Code [employer] Work Phone: [phone] Potassium 3.9 mmol/L Invalid Interpretation Code [employer] Work Phone: [phone] Protein 6.3 g/dL Invalid Interpretation Code [employer] Work Phone: [phone] Sodium 143 mmol/L Invalid Interpretation Code [employer] Work Phone: [phone] Thyroid stimulating hormone (TSH) 1.53 u[iU]/mL [employer] Work Phone: [phone] Triglyceride 105 mg/dL Invalid Interpretation Code [employer] Work Phone: [phone] Urea nitrogen 16 mg/dL Invalid Interpretation Code [employer] Work Phone: [phone] Office Visiton 10-20-2016 Documentation of current medications (procedure) Done Invalid Interpretation Code [employer] Work Phone: [phone] Protein mass conc Done [employer] Work Phone: Office Visit: [facility] 05-01-20 15 Tobacco smoking status NHIS Never smoker [employer] Phone: [phone] Tobacco use [facility] Never smoker Invalid Interpretation Code [employer] Phone: [phone] Office Visiton 11-06-2014 cardiac risk group B Invalid Interpretation Code [employer] Phone: [phone] General cardiovascular disease 10Y risk [#] Monse.Jessica'Pedro 3 % Invalid Interpretation Code [employer] Work Phone: [phone] Replaced Document: [employer] [facility] CG Observationson 11-06-2014 EKG QRS axis -14 deg [employer] Work Phone: [phone] electrocardiogram interpretation Sinus Bradycardia - occasional ectopic ventricular beat Low voltage in limb leads. -Inferior infarct -age undetermined. ABNORMAL Invalid Interpretation Code [employer] Phone: [phone] GE use only - for [employer] import when terms are not otherwise specified 407 ms Invalid Interpretation Code [employer] Phone: [phone] Interpretation Sinus Bradycardia - occasional ectopic ventricular beat Low voltage in limb leads. -Inferior infarct -age undetermined. ABNORMAL [employer] Work Phone: [phone] P English 59 deg [employer] Work Phone: [phone] P wave axis, electrocardiogram 59 deg Invalid Interpretation Code [employer] Phone: [phone] MO Interval 130 ms [employer] Work Phone: [phone] MO interval, electrocardiogram 130 ms Invalid Interpretation Code [employer] Work Phone: [phone] Pulse (Heart Rate) 56 /min Invalid Interpretation Code [employer] Work Phone: [phone] QRS axis, electrocardiogram -14 deg Invalid Interpretation Code [employer] Phone: [phone] QRS Duration 80 ms [employer] Work Phone: [phone] QRS duration, electrocardiogram 80 ms Invalid Interpretation Code [employer] Phone: QT Interval new path ms [employer] Work Phone: QT interval, electrocardiogram new path ms Invalid Interpretation Code [employer] Work Phone: QTc Jay 407 ms [facility] Work Phone: [phone] T English -17 deg [facility] Work Phone: [phone] T wave axis, electrocardiogram -17 deg Invalid Interpretation Code [facility] Work Phone: [phone] Clinical Lists Update: [employer] 07-19-2014 Alanine aminotransferase (ALT) 15 U/L Invalid Interpretation Code [facility] Work Phone: [phone] Alkaline phosphatase (ALP) 94 U/L Invalid Interpretation Code [facility] Work Phone: [phone] Anion gap 9 mmol/L Invalid Interpretation Code [facility] Work Phone: [phone] Anion gap molar conc 9 mmol/L [facility] Work Phone: [phone] Aspartate aminotransferase (AST) 27 U/L Invalid Interpretation Code [facility] Work Phone: [phone] Bilirubin (total) 0.50 mg/dL Invalid Interpretation Code [facility] Work Phone: [phone] BUN/Creatinine Ratio 22.2 mg/mg Invalid Interpretation Code [facility] Work Phone: [phone] Calcium 10.1 mg/dL Invalid Interpretation Code [facility] Work Phone: [phone] Chloride 104 mmol/L Invalid Interpretation Code [facility] Work Phone: [phone] CO2 28.0 mmol/L Invalid Interpretation Code [facility] Work Phone: [phone] Creatinine 0.9 mg/dL Invalid Interpretation Code [facility] Work Phone: [phone] Erythrocytes (RBC) 4.23 10*6/uL Invalid Interpretation Code [facility] Work Phone: [phone] Glucose 68 mg/dL Low [facility] Work Phone: [phone] Hematocrit (HCT) 38.8 % Invalid Interpretation Code [facility] Work Phone: [phone] Hematocrit Volume Fraction (Bld) 38.8 % [facility] Work Phone: [phone] Hemoglobin (HGB) 12.1 g/dL [facility] Work Phone: [phone] MCH 28.6 pg Invalid Interpretation Code [facility] Work Phone: [phone] MCH Entitic mass (RBC) 28.6 pg [facility] Work Phone: [phone] MCHC 31.2 g/dL Invalid Interpretation Code [facility] Work Phone: [phone] MCHC mass conc (RBC) 31.2 g/dL [facility] Work Phone: [phone] MCV 91.7 fL Invalid Interpretation Code [facility] Work Phone: [phone] MCV Entitic volume (RBC) 91.7 fL [facility] Work Phone: [phone] Platelets 306 10*3/mm3 Invalid Interpretation Code [facility] Work Phone: [phone] Platelets #/vol (Bld) 306 10*3/mm3 [facility] Work Phone: [phone] Potassium 3.7 mmol/L Invalid Interpretation Code [facility] Work Phone: [phone] RBC #/vol (Bld) 4.23 10*6/uL [facility] Work Phone: [phone] Sodium 141 mmol/L Invalid Interpretation Code [facility] Work Phone: [phone] Urea nitrogen 20 mg/dL Invalid Interpretation Code [facility] Work Phone: [phone] WBC #/vol (Bld) 8.7 10*3/uL [facility] Work Phone: [phone] WBC (Leukocytes) 8.7 10*3/uL Invalid Interpretation Code [facility] Work Phone: [phone] Replaced Document: Bronson Ray [facility] Observationson 01-26-2014 Pulse (Heart Rate) 398 ms Invalid Interpretation Code [facility] Work Phone: [phone] Clinical Lists Update: [employer] 11-04-2013 Cholesterol 209 mg/dL High [facility] Work Phone: [phone] HDL Cholesterol 83 mg/dL High [facility] Work Phone: [phone] LDL Cholesterol 112 mg/dL Invalid Interpretation Code [facility] Work Phone: [phone] Thyroid stimulating hormone (TSH) 0.81 u[iU]/mL Invalid Interpretation Code [facility] Work Phone: [phone] Triglyceride 69 mg/dL Invalid Interpretation Code [facility] Work Phone: [phone] very low density lipoproteins 14 mg/dL Invalid Interpretation Code [facility] Work Phone: [phone] Albumin 3.5 g/dL Invalid Interpretation Code [facility] Work Phone: [phone] Erythrocyte distribution width Ratio (RBC) 17.0 % [facility] Work Phone: [phone] Globulin 3.6 g/dL Invalid Interpretation Code [facility] Work Phone: [phone] Platelet mean volume Entitic volume (Bld) 11.2 fL [facility] Work Phone: [phone] PMV by Dawna 11.2 fL Invalid Interpretation Code [facility] Work Phone: [phone] Protein 7.1 g/dL Invalid Interpretation Code [facility] Work Phone: [phone] RDW-CA 17.0 % Invalid Interpretation Code [facility] Work Phone: [phone] COVID-19 virus antigen assay SARS-CoV-2 (COVID-19) Ag IA.rapid Ql (Resp) [facility] Work Phone: Culture, urine Bacteria identified Cx Nom (U) 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 [facility] Work Phone: [phone] Vital Signs Date Time Vital Sign Value Performing Clinician Facility 06-30-2023 10:32-0500 Body temperature 97.5 [degF] LEAD PROGRAMMER-C Milagros Hunter LEAD PROGRAMMER Work Phone: [facility] 06-30-2023 10:32-0500 Diastolic blood pressure 91 mm[Hg] LEAD PROGRAMMER-Micheal Hunter LEAD PROGRAMMER Work Phone: [facility] 06-30-2023 10:32-0500 Heart rate 81 /min LEAD PROGRAMMER-Micheal Hunter LEAD PROGRAMMER Work Phone: [facility] 06-30-2023 10:32-0500 Respiratory rate 16 /min LEAD PROGRAMMER-Micheal Hunter LEAD PROGRAMMER Work Phone: [facility] 06-30-2023 10:32-0500 SaO2% (BldA) [Mass fraction] 98 % LEAD PROGRAMMER-C Milagros Hunter LEAD PROGRAMMER Work Phone: [facility] 06-30-2023 10:32-0500 Systolic blood pressure 149 mm[Hg] LEAD PROGRAMMER-C Milagros Hunter LEAD PROGRAMMER Work Phone: [facility] 06-30-2023 09:37-0500 Body mass index (BMI) [Ratio] 21.4 kg/m2 LEAD PROGRAMMER-C Milagros Hunter LEAD PROGRAMMER Work Phone: [facility] 06-30-2023 09:37-0500 Body weight 51.5 kg LEAD PROGRAMMER-C Milagros Hunter LEAD PROGRAMMER Work Phone: [facility] 06-30-2023 09:35-0500 Body height 154.94 cm LEAD PROGRAMMER-C Milagros Hunter LEAD PROGRAMMER Work Phone: [facility] 03-17-2023 11:31-0500 Body mass index (BMI) [Ratio] 21.1 kg/m2 LEAD PROGRAMMER-C Milagros Hunter LEAD PROGRAMMER Work Phone: [facility] 03-17-2023 11:31-0500 Body weight 50.8 kg LEAD PROGRAMMER-C Milagros Hunter LEAD PROGRAMMER Work Phone: [facility] 03-17-2023 11:31-0500 Diastolic blood pressure 74 mm[Hg] LEAD PROGRAMMER-C Milagros Hunter LEAD PROGRAMMER Work Phone: [facility] 03-17-2023 11:31-0500 Heart rate 81 /min LEAD PROGRAMMER-C Milagros Hunter LEAD PROGRAMMER Work Phone: [facility] 03-17-2023 11:31-0500 Respiratory rate 16 /min LEAD PROGRAMMER-C Milagros Hunter LEAD PROGRAMMER Work Phone: [facility] 03-17-2023 11:31-0500 Systolic blood pressure 117 mm[Hg] LEAD PROGRAMMER-C Milagros Hunter LEAD PROGRAMMER Work Phone: [facility] 11-28-2022 00:45-0400 Diastolic blood pressure 52 mm[Hg] LEAD PROGRAMMER-C Milagros Hunter LEAD PROGRAMMER Work Phone: [facility] 11-28-2022 00:45-0400 Heart rate 76 /min LEAD PROGRAMMER-C Milgaros Hunter LEAD PROGRAMMER Work Phone: [facility] 11-28-2022 00:45-0400 Respiratory rate 16 /min LEAD PROGRAMMER-C Milagros Hunter LEAD PROGRAMMER Work Phone: [facility] 11-28-2022 00:45-0400 Systolic blood pressure 92 mm[Hg] LEAD PROGRAMMER-C Milagros Hunter LEAD PROGRAMMER Work Phone: [facility] 11-27-2022 21:58-0400 Body height 157.48 cm LEAD PROGRAMMER-Micheal Hunter LEAD PROGRAMMER Work Phone: [facility] 11-27-2022 21:58-0400 Body mass index (BMI) [Ratio] 21.4 kg/m2 LEAD PROGRAMMER-Micheal Hunter LEAD PROGRAMMER Work Phone: [facility] 11-27-2022 21:58-0400 Body temperature 100.7 [degF] LEAD PROGRAMMER-C Milagros Hunter LEAD PROGRAMMER Work Phone: [facility] 11-27-2022 21:58-0400 Body weight 53.1 kg LEAD PROGRAMMER-iMcheal Hunter LEAD PROGRAMMER Work Phone: [facility] 11-27-2022 21:58-0400 SaO2% (BldA) [Mass fraction] 93 % LEAD PROGRAMMER-Micheal Hunter LEAD PROGRAMMER Work Phone: [facility] 11-27-2022 14:43-0400 Body temperature 98.9 [degF] LEAD PROGRAMMER-Micheal Hunter LEAD PROGRAMMER Work Phone: [facility] 11-27-2022 14:43-0400 Diastolic blood pressure 87 mm[Hg] LEAD PROGRAMMER-Micheal Hunter LEAD PROGRAMMER Work Phone: [facility] 11-27-2022 14:43-0400 Heart rate 95 /min LEAD PROGRAMMER-C Milagros Hunter LEAD PROGRAMMER Work Phone: [facility] 11-27-2022 14:43-0400 Respiratory rate 16 /min LEAD PROGRAMMER-C Milagros Hunter LEAD PROGRAMMER Work Phone: [facility] 11-27-2022 14:43-0400 SaO2% (BldA) [Mass fraction] 97 % LEAD PROGRAMMER-C Milagros Hunter LEAD PROGRAMMER Work Phone: [facility] 11-27-2022 14:43-0400 Systolic blood pressure 132 mm[Hg] LEAD PROGRAMMER-C Milagros Hunter LEAD PROGRAMMER Work Phone: [facility] 11-27-2022 11:22-0400 Body height 157.48 cm LEAD PROGRAMMER-C Milagros Hunter LEAD PROGRAMMER Work Phone: [facility] 11-27-2022 11:22-0400 Body mass index (BMI) [Ratio] 20.2 kg/m2 LEAD PROGRAMMER-C Milagros Hunter LEAD PROGRAMMER Work Phone: [facility] 11-27-2022 11:22-0400 Body weight 50.34 kg LEAD PROGRAMMER-C Milagros Hunter LEAD PROGRAMMER Work Phone: [facility] 10-17-2022 11:09-0400 Body temperature 98.3 [degF] LEAD PROGRAMMER-C Milagros Hunter LEAD PROGRAMMER Work Phone: [facility] 10-17-2022 11:09-0400 Diastolic blood pressure 64 mm[Hg] LEAD PROGRAMMER-C Milagros Hunter LEAD PROGRAMMER Work Phone: [facility] 10-17-2022 11:09-0400 Heart rate 69 /min LEAD PROGRAMMER-C Milagros Hunter LEAD PROGRAMMER Work Phone: [facility] 10-17-2022 11:09-0400 Respiratory rate 16 /min LEAD PROGRAMMER-C Milagros Hunter LEAD PROGRAMMER Work Phone: [facility] 10-17-2022 11:09-0400 SaO2% (BldA) [Mass fraction] 94 % LEAD PROGRAMMER-C Milagros Hunter LEAD PROGRAMMER Work Phone: [facility] 10-17-2022 11:09-0400 Systolic blood pressure 100 mm[Hg] LEAD PROGRAMMER-C Milagros Hunter LEAD PROGRAMMER Work Phone: [facility] 10-14-2022 10:18-0400 Body mass index (BMI) [Ratio] 20.9 kg/m2 LEAD PROGRAMMER-C Milagros Hunter LEAD PROGRAMMER Work Phone: [facility] 10-14-2022 10:18-0400 Body weight 51.93 kg LEAD PROGRAMMER-C Milagros Hunter LEAD PROGRAMMER Work Phone: [facility] 10-09-2022 13:25-0400 Body temperature 97.6 [degF] LEAD PROGRAMMER-C Milagros Hunter LEAD PROGRAMMER Work Phone: [facility] 10-09-2022 13:25-0400 Diastolic blood pressure 59 mm[Hg] LEAD PROGRAMMER-C Milagros Hunter LEAD PROGRAMMER Work Phone: [facility] 10-09-2022 13:25-0400 Heart rate 75 /min LEAD PROGRAMMER-C Milagros Hunter LEAD PROGRAMMER Work Phone: [facility] 10-09-2022 13:25-0400 Respiratory rate 18 /min LEAD PROGRAMMER-C Milagros Hunter LEAD PROGRAMMER Work Phone: [facility] 10-09-2022 13:25-0400 SaO2% (BldA) [Mass fraction] 100 % LEAD PROGRAMMER-C Milagros Hunter LEAD PROGRAMMER Work Phone: [facility] 10-09-2022 13:25-0400 Systolic blood pressure 109 mm[Hg] LEAD PROGRAMMER-C Milagros Hunter LEAD PROGRAMMER Work Phone: [facility] 10-09-2022 12:33-0400 Body height 157.48 cm LEAD PROGRAMMER-C Milagros Hunter LEAD PROGRAMMER Work Phone: [facility] 10-09-2022 12:33-0400 Body mass index (BMI) [Ratio] 21.6 kg/m2 LEAD PROGRAMMER-C Milagros Hunter LEAD PROGRAMMER Work Phone: [facility] 10-09-2022 12:33-0400 Body weight 53.58 kg LEAD PROGRAMMER-C Milagros Hunter LEAD PROGRAMMER Work Phone: [facility] 10-09-2022 11:30-0400 Body temperature 97.6 [degF] LEAD PROGRAMMER-C Milagros Hunter LEAD PROGRAMMER Work Phone: [facility] 10-09-2022 11:30-0400 Diastolic blood pressure 70 mm[Hg] LEAD PROGRAMMER-C Milagros Hunter LEAD PROGRAMMER Work Phone: [facility] 10-09-2022 11:30-0400 Heart rate 78 /min LEAD PROGRAMMER-C Milagros Hunter LEAD PROGRAMMER Work Phone: [facility] 10-09-2022 11:30-0400 Respiratory rate 16 /min LEAD PROGRAMMER-C Milagros Hunter LEAD PROGRAMMER Work Phone: [facility] 10-09-2022 11:30-0400 SaO2% (BldA) [Mass fraction] 98 % LEAD PROGRAMMER-C Milagros Hunter LEAD PROGRAMMER Work Phone: [facility] 10-09-2022 11:30-0400 Systolic blood pressure 125 mm[Hg] LEAD PROGRAMMER-C Milagros Hunter LEAD PROGRAMMER Work Phone: [facility] 10-08-2022 11:54-0400 Body weight 53.52 kg LEAD PROGRAMMER-C Milagros Hunter LEAD PROGRAMMER Work Phone: [facility] 10-07-2022 11:25-0400 Body mass index (BMI) [Ratio] 21.5 kg/m2 LEAD PROGRAMMER-C Milagros Hunter LEAD PROGRAMMER Work Phone: [facility] 10-02-2022 13:34-0400 Body temperature 98.1 [degF] LEAD PROGRAMMER-C Milagros Hunter LEAD PROGRAMMER Work Phone: [facility] 10-02-2022 13:34-0400 Diastolic blood pressure 59 mm[Hg] LEAD PROGRAMMER-C Milagros Hunter LEAD PROGRAMMER Work Phone: [facility] 10-02-2022 13:34-0400 Heart rate 86 /min LEAD PROGRAMMER-C Milagros Hunter LEAD PROGRAMMER Work Phone: [facility] 10-02-2022 13:34-0400 Respiratory rate 18 /min LEAD PROGRAMMER-C Milagros Hunter LEAD PROGRAMMER Work Phone: [facility] 10-02-2022 13:34-0400 SaO2% (BldA) [Mass fraction] 94 % LEAD PROGRAMMER-C Milagros Hunter LEAD PROGRAMMER Work Phone: [facility] 10-02-2022 13:34-0400 Systolic blood pressure 95 mm[Hg] LEAD PROGRAMMER-C Milagros Hunter LEAD PROGRAMMER Work Phone: [facility] 10-02-2022 04:23-0400 Body mass index (BMI) [Ratio] 20.7 kg/m2 LEAD PROGRAMMER-C Milagros Hunter LEAD PROGRAMMER Work Phone: [facility] 10-02-2022 04:23-0400 Body weight 51.2 kg LEAD PROGRAMMER-C Milagros Hunter LEAD PROGRAMMER Work Phone: [facility] 09-30-2022 22:25-0400 Inhaled oxygen flow rate 2 L/min LEAD PROGRAMMER-C Milagros Hunter LEAD PROGRAMMER Work Phone: [facility] 05-27-2022 08:57-0500 Body height 160.02 cm LEAD PROGRAMMER-C Milagros Hunter LEAD PROGRAMMER Work Phone: [facility] 05-27-2022 08:49-0500 Body mass index (BMI) [Ratio] 20.2 kg/m2 LEAD PROGRAMMER-C Milagros Hunter LEAD PROGRAMMER Work Phone: [facility] 05-27-2022 08:49-0500 Body weight 51.82 kg LEAD PROGRAMMER-C Milagros Hunter LEAD PROGRAMMER Work Phone: [facility] 05-27-2022 08:49-0500 Diastolic blood pressure 82 mm[Hg] LEAD PROGRAMMER-C Milagros Hunter LEAD PROGRAMMER Work Phone: [facility] 05-27-2022 08:49-0500 Systolic blood pressure 124 mm[Hg] LEAD PROGRAMMER-C Milagros Hunter LEAD PROGRAMMER Work Phone: [facility] 05-19-2022 10:25-0500 Diastolic Blood Pressure Non-Invasive [address] ZULEMA MOLINA MD [facility] 05-19-2022 10:25-0500 Systolic Blood Pressure Non-Invasive [address] ZULEMA MOLINA MD [facility] 05-19-2022 10:21-0500 Diastolic Blood Pressure Non-Invasive [address] ZULEMA MOLINA MD [facility] 05-19-2022 10:21-0500 Heart rate 67 /min DR ZULEMA MOLINA MD [facility] 05-19-2022 10:21-0500 Respiratory rate 16 /min DR ZULEMA MOLINA MD [facility] 05-19-2022 10:21-0500 Systolic Blood Pressure Non-Invasive [address] ZULEMA MOLINA MD [facility] 05-19-2022 10:09-0500 Body temperature 97.16 [degF] DR ZULEMA MOLINA MD [facility] 05-19-2022 10:09-0500 Diastolic Blood Pressure Non-Invasive [address] ZULEMA MOLINA MD [facility] 05-19-2022 10:09-0500 Heart rate 69 /min DR ZULEMA MOLINA MD [facility] 05-19-2022 10:09-0500 Respiratory rate 22 /min DR ZULEMA MOLINA MD [facility] 05-19-2022 10:09-0500 Systolic Blood Pressure Non-Invasive [address] ZULEMA MOLINA MD [facility] 05-19-2022 10:05-0500 Heart rate 77 /min DR ZULEMA MOLINA MD [facility] 05-19-2022 10:05-0500 Respiratory Rate - Anes 23 br/min DR ZULEMA MOLINA MD [facility] 05-19-2022 10:00-0500 Respiratory Rate - Anes 17 br/min DR ZULEMA MOLINA MD [facility] 05-19-2022 09:55-0500 Respiratory Rate - Anes 20 br/min DR ZULEMA MOLINA MD [facility] 05-19-2022 07:58-[address] ZULEMA MOLINA MD [facility] 05-19-2022 07:58-0500 Body height [address] ZULEMA MOLINA MD [facility] 05-19-2022 07:58-0500 Body temperature 97.16 [degF] DR ZULEMA MOLINA MD [facility] 05-19-2022 07:58-0500 Body weight [address] ZULEMA MOLINA MD [facility] 05-19-2022 07:58-0500 Heart rate 71 /min DR ZULEMA MOLINA MD [facility] 05-19-2022 07:58-0500 Respiratory rate 15 /min DR ZULEMA MOLINA MD [facility] 05-11-2022 15:20-0500 Diastolic blood pressure 72 mm[Hg] [facility] 05-11-2022 15:20-0500 SaO2% (BldA) [Mass fraction] 98 % [facility] 05-11-2022 15:20-0500 Systolic blood pressure 115 mm[Hg] [facility] 05-11-2022 12:41-0500 Heart rate 82 /min [facility] 05-11-2022 12:41-0500 Respiratory rate 18 /min [facility] 05-11-2022 10:17-0500 Body height 160.02 cm [facility] Work Phone: 05-11-2022 10:17-0500 Body mass index (BMI) [Ratio] 19.3 kg/m2 [facility] 05-11-2022 10:17-0500 Body temperature 96.9 [degF] [facility] 05-11-2022 10:17-0500 Body weight 49.44 kg [facility] 05-04-2022 12:07-0500 Body height 160.02 cm [facility] Work Phone: 05-04-2022 12:07-0500 Body mass index (BMI) [Ratio] 19.6 kg/m2 [facility] 05-04-2022 12:07-0500 Body temperature 98.3 [degF] [facility] 05-04-2022 12:07-0500 Body weight 50.34 kg [facility] 05-04-2022 12:07-0500 Diastolic blood pressure 102 mm[Hg] [facility] 05-04-2022 12:07-0500 Heart rate 116 /min [facility] 05-04-2022 12:07-0500 Respiratory rate 16 /min [facility] 05-04-2022 12:07-0500 SaO2% (BldA) [Mass fraction] 98 % [facility] 05-04-2022 12:07-0500 Systolic blood pressure 150 mm[Hg] [facility] 12-18-2021 15:41-0400 Body height 160.02 cm LEAD PROGRAMMER-C Milagros Hunter LEAD PROGRAMMER Work Phone: [facility] Work Phone: 12-18-2021 15:41-0400 Body mass index (BMI) [Ratio] 23 kg/m2 LEAD PROGRAMMER-C Milagros Hunter LEAD PROGRAMMER Work Phone: [facility] Work Phone: 12-18-2021 15:30-0400 Body weight 50.8 kg LEAD PROGRAMMER-C Milagros Hunter LEAD PROGRAMMER Work Phone: [facility] Work Phone: 12-18-2021 15:30-0400 Diastolic blood pressure 78 mm[Hg] LEAD PROGRAMMER-C Milagros Hunter LEAD PROGRAMMER Work Phone: [facility] Work Phone: 12-18-2021 15:30-0400 Heart rate 84 /min LEAD PROGRAMMER-C Milagros Hunter LEAD PROGRAMMER Work Phone: [facility] Work Phone: 12-18-2021 15:30-0400 Respiratory rate 16 /min LEAD PROGRAMMER-C Milagros Hunter LEAD PROGRAMMER Work Phone: [facility] Work Phone: 12-18-2021 15:30-0400 Systolic blood pressure 114 mm[Hg] LEAD PROGRAMMER-C Milagros Hunter LEAD PROGRAMMER Work Phone: [facility] Work Phone: 10-18-2021 20:33-0400 Diastolic blood pressure 87 mm[Hg] LEAD PROGRAMMER-C Milagros Hunter LEAD PROGRAMMER Work Phone: [facility] Work Phone: 10-18-2021 20:33-0400 Systolic blood pressure 125 mm[Hg] LEAD PROGRAMMER-C Milagros Hunter LEAD PROGRAMMER Work Phone: [facility] Work Phone: 10-18-2021 16:52-0400 Body height 160.02 cm LEAD PROGRAMMER-C Milagros Hunter LEAD PROGRAMMER Work Phone: [facility] Work Phone: 10-18-2021 16:52-0400 Body mass index (BMI) [Ratio] 20 kg/m2 LEAD PROGRAMMER-C Milagros Hunter LEAD PROGRAMMER Work Phone: [facility] Work Phone: 10-18-2021 16:52-0400 Body temperature 99 [degF] LEAD PROGRAMMER-C Milagros Hunter LEAD PROGRAMMER Work Phone: [facility] Work Phone: 10-18-2021 16:52-0400 Body weight 51.4 kg LEAD PROGRAMMER-C Milagros Hunter LEAD PROGRAMMER Work Phone: [facility] Work Phone: 10-18-2021 16:52-0400 Heart rate 100 /min LEAD PROGRAMMER-C Milagros Hunter LEAD PROGRAMMER Work Phone: [facility] Work Phone: 10-18-2021 16:52-0400 Respiratory rate 16 /min LEAD PROGRAMMER-C Milagros Hunter LEAD PROGRAMMER Work Phone: [facility] Work Phone: 10-18-2021 16:52-0400 SaO2% (BldA) [Mass fraction] 98 % LEAD PROGRAMMER-C Milagros Hunter LEAD PROGRAMMER Work Phone: [facility] Work Phone: 10-01-2021 14:42-0400 Diastolic blood pressure 78 mm[Hg] LEAD PROGRAMMER-C Geraldine Leigh LEAD PROGRAMMER Work Phone: [facility] Work Phone: 10-01-2021 14:42-0400 Heart rate 90 /min LEAD PROGRAMMER-C Geraldine Leigh LEAD PROGRAMMER Work Phone: [facility] Work Phone: 10-01-2021 14:42-0400 Respiratory rate 16 /min LEAD PROGRAMMER-C Geraldine Lu LEAD PROGRAMMER Work Phone: [facility] Work Phone: 10-01-2021 14:42-0400 SaO2% (BldA) [Mass fraction] 98 % LEAD PROGRAMMER-C Geraldine Lu LEAD PROGRAMMER Work Phone: [facility] Work Phone: 10-01-2021 14:42-0400 Systolic blood pressure 122 mm[Hg] LEAD PROGRAMMER-C Geraldine Lu LEAD PROGRAMMER Work Phone: [facility] Work Phone: 10-01-2021 13:45-0400 Body temperature 97.5 [degF] LEAD PROGRAMMER-C Geraldine Lu LEAD PROGRAMMER Work Phone: [facility] Work Phone: 10-01-2021 10:43-0400 Body height 160.02 cm LEAD PROGRAMMER-C Geraldine Lu LEAD PROGRAMMER Work Phone: [facility] Work Phone: 10-01-2021 10:43-0400 Body mass index (BMI) [Ratio] 19.9 kg/m2 LEAD PROGRAMMER-C Geraldine Lu LEAD PROGRAMMER Work Phone: [facility] Work Phone: 10-01-2021 10:43-0400 Body weight 51 kg LEAD PROGRAMMER-C Geraldine Lu LEAD PROGRAMMER Work Phone: [facility] Work Phone: 09-16-2021 09:33-0400 Body height 160.02 cm LEAD PROGRAMMER-C Geraldine Lu LEAD PROGRAMMER Work Phone: [facility] Work Phone: 09-16-2021 09:33-0400 Body mass index (BMI) [Ratio] 20.2 kg/m2 LEAD PROGRAMMER-C Geraldine Lu LEAD PROGRAMMER Work Phone: [facility] Work Phone: 09-16-2021 09:33-0400 Body temperature 97.2 [degF] LEAD PROGRAMMER-C Geraldine Lu LEAD PROGRAMMER Work Phone: [facility] Work Phone: 09-16-2021 09:33-0400 Body weight 51.82 kg LEAD PROGRAMMER-C Geraldine Lu LEAD PROGRAMMER Work Phone: [facility] Work Phone: 09-16-2021 09:33-0400 Diastolic blood pressure 82 mm[Hg] LEAD PROGRAMMER-C Geraldine Lu LEAD PROGRAMMER Work Phone: [facility] Work Phone: 09-16-2021 09:33-0400 Heart rate 70 /min LEAD PROGRAMMER-C Geraldine Lu LEAD PROGRAMMER Work Phone: [facility] Work Phone: 09-16-2021 09:33-0400 Respiratory rate 17 /min LEAD PROGRAMMER-C Geraldine Lu LEAD PROGRAMMER Work Phone: [facility] Work Phone: 09-16-2021 09:33-0400 SaO2% (BldA) [Mass fraction] 96 % LEAD PROGRAMMER-C Geraldine Lu LEAD PROGRAMMER Work Phone: [facility] Work Phone: 09-16-2021 09:33-0400 Systolic blood pressure 133 mm[Hg] LEAD PROGRAMMER-C Geraldine Lu LEAD PROGRAMMER Work Phone: [facility] Work Phone: 09-09-2021 14:54-0400 Body weight 53.07 kg LEAD PROGRAMMER-C Geraldine Lu LEAD PROGRAMMER Work Phone: [facility] Work Phone: 09-09-2021 14:54-0400 Diastolic blood pressure 78 mm[Hg] LEAD PROGRAMMER-C Geraldnie Lu LEAD PROGRAMMER Work Phone: [facility] Work Phone: 09-09-2021 14:54-0400 Systolic blood pressure 118 mm[Hg] LEAD PROGRAMMER-C Geraldine Lu LEAD PROGRAMMER Work Phone: [facility] Work Phone: 07-17-2021 09:58-0500 Body weight 52.21 kg LEAD PROGRAMMER-C Geraldine Lu LEAD PROGRAMMER Work Phone: [facility] Work Phone: 07-17-2021 09:58-0500 Diastolic blood pressure 74 mm[Hg] LEAD PROGRAMMER-C Geraldine Lu LEAD PROGRAMMER Work Phone: [facility] Work Phone: 07-17-2021 09:58-0500 Systolic blood pressure 118 mm[Hg] LEAD PROGRAMMER-C Geraldine Lu LEAD PROGRAMMER Work Phone: [facility] Work Phone: 07-02-2021 15:40-0500 Body temperature 98.1 [degF] LEAD PROGRAMMER-C Geraldine Lu LEAD PROGRAMMER Work Phone: [facility] Work Phone: 07-02-2021 15:40-0500 Diastolic blood pressure 59 mm[Hg] LEAD PROGRAMMER-C Geraldine Lu LEAD PROGRAMMER Work Phone: [facility] Work Phone: 07-02-2021 15:40-0500 Heart rate 79 /min LEAD PROGRAMMER-C Geraldine Lu LEAD PROGRAMMER Work Phone: [facility] Work Phone: 07-02-2021 15:40-0500 Respiratory rate 16 /min LEAD PROGRAMMER-C Geraldine Lu LEAD PROGRAMMER Work Phone: [facility] Work Phone: 07-02-2021 15:40-0500 SaO2% (BldA) [Mass fraction] 94 % LEAD PROGRAMMER-C Geraldine Lu LEAD PROGRAMMER Work Phone: [facility] Work Phone: 07-02-2021 15:40-0500 Systolic blood pressure 106 mm[Hg] LEAD PROGRAMMER-C Geraldine Lu LEAD PROGRAMMER Work Phone: [facility] Work Phone: 07-02-2021 12:11-0500 Body mass index (BMI) [Ratio] 21.3 kg/m2 LEAD PROGRAMMER-C Geraldine Lu LEAD PROGRAMMER Work Phone: [facility] Work Phone: 07-02-2021 12:11-0500 Body weight 52.9 kg LEAD PROGRAMMER-C Geraldine Lu LEAD PROGRAMMER Work Phone: [facility] Work Phone: 06-19-2021 09:58-0500 Body mass index (BMI) [Ratio] 20.7 kg/m2 LEAD PROGRAMMER-C Geraldine Lu LEAD PROGRAMMER Work Phone: [facility] Work Phone: 06-19-2021 09:58-0500 Body weight 53.07 kg LEAD PROGRAMMER-C Geraldine Lu LEAD PROGRAMMER Work Phone: [facility] Work Phone: 06-19-2021 09:58-0500 Diastolic blood pressure 80 mm[Hg] LEAD PROGRAMMER-C Geraldine Lu LEAD PROGRAMMER Work Phone: [facility] Work Phone: 06-19-2021 09:58-0500 Systolic blood pressure 130 mm[Hg] LEAD PROGRAMMER-C Geraldine Lu LEAD PROGRAMMER Work Phone: [facility] Work Phone: 10-20-2016 13:08-0400 BMI (Body Mass Index) 24.13 kg/m2 Matias Best MD [facility] Work Phone: 10-20-2016 13:08-0400 BP Diastolic 82 mm[Hg] Matias Best MD [facility] Work Phone: 10-20-2016 13:08-0400 BP Systolic 118 mm[Hg] Matias Best MD [facility] Work Phone: 10-20-2016 13:08-0400 Height 165.1 cm Matias Best MD [facility] Work Phone: 10-20-2016 13:08-0400 Pulse (Heart Rate) 68 /min [facility] Work Phone: 10-20-2016 13:08-0400 Respiratory Rate 16 /min Matias Best MD [facility] Work Phone: 10-20-2016 13:08-0400 Weight 65.77 kg Matias Best MD [facility] Work Phone: 10-15-2015 14:05-0400 BSA (Body Surface Area) 1.7 m2 Matias Best MD [facility] Work Phone: 11-06-2014 16:09-0400 Heart rate 56 /min Jamila Lozano RN [facility] Work Phone: 01-26-2014 11:01-0400 Heart rate 398 ms Jamila Lozano RN [facility] Work Phone: 01-26-2014 10:34-0400 Height 165.1 cm Matias Best MD [facility] Work Phone: Encounters Encounter Date Encounter Type Care Provider Facility Start: 10-04-2024 End: 10-04-2024 ambulatory Milagros Hunter NP-C Work Phone: [facility] Work Phone: Start: 10-04-2024 End: 10-04-2024 Patient encounter procedure Milagros Hunter LEAD PROGRAMMER-C -Outpatient Breast Imaging Work Phone: Start: 10-04-2024 End: 10-04-2024 ambulatory Milagros Hunter LEAD PROGRAMMER Facility:[facility] Start: 09-15-2024 End: 09-15-2024 ambulatory Milagros Hunter LEAD PROGRAMMER-C Work Phone: [facility] Work Phone: Start: 09-15-2024 End: 09-15-[address] Mylene Hoskins MD -Radiology, [facility] Work Phone: Start: 09-15-2024 End: 09-15-2024 ambulatory Mylene Hoskins Facility:[facility] Start: 07-05-2024 End: 07-05-2024 ambulatory Milagros Hunter LEAD PROGRAMMER-C Work Phone: [facility] Work Phone: Start: 07-05-2024 End: 07-05-[address] Mylene Hoskins MD -Radiology, [facility] Work Phone: Start: 07-05-2024 End: 07-05-2024 ambulatory Mylene Hoskins Facility:[facility] Start: 06-28-2024 End: 06-28-2024 Patient encounter procedure Leilani NELSON -[facility] Work Phone: Start: 06-28-2024 End: 06-28-2024 ambulatory Leilani Gonzales Facility:[facility] Start: 05-23-2024 End: 05-23-2024 ambulatory [facility] Start: 04-19-2024 End: 04-19-2024 Patient encounter procedure Leilani NELSON -Nuclear Medicine, [facility] Work Phone: Start: 04-19-2024 End: 04-19-2024 ambulatory Leilani Gonzales Facility:[facility] Start: 03-29-2024 End: 03-29-2024 Patient encounter procedure Leilani NELSON -[facility] Work Phone: Start: 03-29-2024 End: 03-29-2024 ambulatory Milagros Hunter LEAD PROGRAMMER Facility:[facility] Start: 03-21-2024 End: 03-21-2024 ambulatory [facility] Start: 03-15-2024 End: 03-15-2024 ambulatory Milagros Hunter LEAD PROGRAMMER Facility:[facility] Start: 03-08-2024 End: 03-08-2024 ambulatory Milagros Hunter LEAD PROGRAMMER Facility:[facility] Start: 02-17-2024 End: 02-17-2024 ambulatory MILAGROS HUNTER CORK TILE FLOOR LAYER-SPENT GRAIN DRYER Facility:[facility] Start: 02-17-2024 End: 02-17-2024 Patient encounter procedure MILAGROS HUNTER CORK TILE FLOOR LAYER-SPENT GRAIN DRYER [facility] Start: 02-02-2024 End: 02-02-2024 ambulatory Milagros Hunter LEAD PROGRAMMER Facility:[facility] Start: 01-21-2024 ambulatory Mylene Brooks Facility:[facility] Start: 01-04-2024 End: 01-04-2024 ambulatory [facility] Start: 11-03-2023 End: 11-03-2023 ambulatory Milagros Hunter LEAD PROGRAMMER Facility:[facility] Start: 10-27-2023 ambulatory Milagros Hunter LEAD PROGRAMMER Fa cility:[facility] Start: 10-20-2023 Telephone encounter Dc weems MD Work Phone: Plastic Surgery Start: 10-13-2023 ambulatory Parviz Mandujano Facility:[facility] Start: 10-13-2023 End: 10-13-2023 Emergency department patient visit Roosevelt Zimmerman Facility:[facility] Start: 10-13-2023 End: 10-13-2023 ambulatory MILAGROS HUNTER Facility:[facility] Start: 09-08-2023 End: 09-08-2023 ambulatory [facility] Work Phone: Start: 09-08-2023 End: 09-08-2023 Patient encounter procedure [facility]-Laboratory Work Phone: Start: 08-24-2023 End: 08-25-2023 ambulatory [facility] Start: 08-20-2023 End: 08-20-2023 ambulatory KIYA SALAZAR Facility:[facility] Start: 08-20-2023 End: 08-20-2023 Patient encounter procedure Laure Varela OD Work Phone: Optometry Comment on above: Keratitis sicca, bo ateral (HCC) (Primary Dx); Rheumatoid arthritis involving multiple sites, unspecified whether rheumatoid factor present (HCC); Pseudophakia of both eyes; Vitreous floaters of both eyes; Regular astigmatism, bilateral Start: 08-17-2023 End: 08-18-2023 ambulatory SOCORRO Carey [facility] Start: 08-14-2023 End: 08-15-2023 ambulatory SOCORRO M [facility] Start: 08-10-2023 End: 08-11-2023 ambulatory SOCORRO ALCAZAR [facility] Start: 08-05-2023 End: 08-06-2023 ambulatory SOCORRO Carey [facility] Start: 08-03-2023 End: 08-04-2023 ambulatory SOCORRO ALCAZAR [facility] Start: 07-29-2023 End: 07-30-2023 ambulatory SOCORRO Carey [facility] Start: 07-10-2023 End: 07-11-2023 ambulatory [facility] Start: 07-08-2023 ambulatory KIYA SALAZAR Facili ty:[facility] Start: 07-08-2023 End: 07-08-2023 ambulatory KIYA SALAZAR Facility:[facility] Start: 07-06-2023 End: 07-07-2023 ambulatory [facility] Start: 06-30-2023 End: 06-30-2023 Emergency department patient visit LEAD PROGRAMMER-C Milagros Hunter LEAD PROGRAMMER Work Phone: [facility]-Emergency Department Work Phone: Start: 06-29-2023 End: 06-30-2023 ambulatory [facility] Start: 06-26-2023 End: 06-27-2023 ambulatory [facility] Start: 06-19-2023 End: 06-20-2023 ambulatory [facility] Start: 06-17-2023 End: 06-18-2023 ambulatory [facility] Start: 06-08-2023 End: 06-09-2023 ambulatory [facility] Start: 06-05-2023 End: 06-06-2023 ambulatory [facility] Start: 06-01-2023 End: 06-02-2023 ambulatory [facility] Start: 05-22-2023 End: 05-23-2023 ambulatory [facility] Start: 05-15-2023 End: 05-16-2023 ambulatory [facility] Start: 05-13-2023 End: 05-14-2023 ambulatory [facility] Start: 05-06-2023 End: 05-07-2023 ambulatory [facility] Start: 04-29-2023 End: 04-30-2023 ambulatory [facility] Start: 04-27-2023 End: 04-28-2023 ambulatory [facility] Start: 04-20-2023 End: 04-21-2023 ambulatory [facility] Start: 04-14-2023 End: 04-14-2023 ambulatory [facility] Facility:[facility] Start: 04-07-2023 End: 04-07-2023 ambulatory [facility] Facility:[facility] Start: 03-31-2023 End: 04-01-2023 ambulatory NORA [facility] Start: 03-17-2023 Patient encounter status LEAD PROGRAMMER-Micheal Hunter LEAD PROGRAMMER Work Phone: [facility] Start: 03-17-2023 End: 03-17-2023 Encounter for other preprocedural examination LEAD PROGRAMMER-Micheal Hunter LEAD PROGRAMMER Work Phone: [facility] Start: 03-17-2023 End: 03-17-2023 Patient encounter procedure LEAD PROGRAMMER-Micheal Hunter LEAD PROGRAMMER Work Phone: [facility] Work Phone: Start: 03-13-2023 End: 03-13-2023 ambulatory NORA [facility] Start: 03-13-2023 End: 03-13-2023 Encounter for other preprocedural examination NORA [facility] Start: 12-30-2022 End: 12-30-2022 ambulatory [facility] Facility:[facility] Start: 11-28-2022 Evaluation and management of inpatient LEAD PROGRAMMER-C Milagros Hunter LEAD PROGRAMMER Work Phone: [facility]-Medical Surgical 3 Work Phone: Start: 11-28-2022 observation encounter LEAD PROGRAMMER-C Lexie aaliyah Hunter LEAD PROGRAMMER Work Phone: [facility] Work Phone: Start: 11-27-2022 End: 11-27-2022 Emergency department patient visit LEAD PROGRAMMER-C Milagros Hunter LEAD PROGRAMMER Work Phone: [facility]-Emergency Department Work Phone: Start: 10-21-2022 End: 10-21-2022 ambulatory [facility] Facility:[facility] Start: 10-09-2022 Non-patient / Non-visit LEAD PROGRAMMER-C Milagros Hunter LEAD PROGRAMMER Work Phone: [facility] Start: 10-09-2022 End: 10-09-2022 Admission to same day surgery center LEAD PROGRAMMER-C Milagros Hunter LEAD PROGRAMMER Work Phone: [facility]-Endoscopy Start: 10-09-2022 End: 10-09-2022 ambulatory LEAD PROGRAMMER-C Milagros Hunter LEAD PROGRAMMER Work Phone: [facility] Work Phone: Start: 10-07-2022 Non-patient / Non-visit LEAD PROGRAMMER-C Milagros Hunter LEAD PROGRAMMER Work Phone: [facility] Start: 10-02-2022 End: 10-17-2022 Evaluation and management of inpatient LEAD PROGRAMMER-C Milagros Hunter LEAD PROGRAMMER Work Phone: [facility]-Transitional Care Unit Start: 10-02-2022 Non-patient / Non-visit LEAD PROGRAMMER-C Milagros Hunter LEAD PROGRAMMER Work Phone: [facility] Start: 10-01-2022 Non-patient / Non-visit LEAD PROGRAMMER-C Milagros Hunter LEAD PROGRAMMER Work Phone: [facility] Start: 09-30-2022 Non-patient / Non-visit LEAD PROGRAMMER-C Milagros Hunter LEAD PROGRAMMER Work Phone: [facility] Start: 09-29-2022 Non-patient / Non-visit LEAD PROGRAMMER-C Milagros Hunter LEAD PROGRAMMER Work Phone: [facility] Start: 09-29-2022 End: 10-02-2022 Evaluation and management of inpatient LEAD PROGRAMMER-C Milagros Hunter LEAD PROGRAMMER Work Phone: [facility]-Medical Surgical 3 Start: 09-16-2022 End: 09-16-2022 ambulatory LEAD PROGRAMMER-C Milagros Hunter LEAD PROGRAMMER Work Phone: [facility] Work Phone: Start: 09-16-2022 End: 09-16-2022 Patient encounter procedure LEAD PROGRAMMER-C Milagros Hunter LEAD PROGRAMMER Work Phone: [facility]-Laboratory Start: 06-24-2022 End: 06-24-2022 ambulatory LEAD PROGRAMMER-C Mialgros Hunter LEAD PROGRAMMER Work Phone: [facility] Work Phone: Start: 06-24-2022 End: 06-24-2022 Patient encounter procedure LEAD PROGRAMMER-C Milagros Hunter LEAD PROGRAMMER Work Phone: [facility]-Outpatient Breast Imaging Start: 05-27-2022 End: 05-27-2022 ambulatory LEAD PROGRAMMER-C Milagros Hunter LEAD PROGRAMMER Work Phone: [facility] Work Phone: Start: 05-27-2022 End: 05-27-2022 Patient encounter procedure LEAD PROGRAMMER-C Milagros Robleser LEAD PROGRAMMER Work Phone: [facility]-Outpatient Bone Densitometry Start: 05-27-2022 End: 05-27-2022 Patient encounter procedure LEAD PROGRAMMER-C Milagros Hunter LEAD PROGRAMMER Work Phone: [facility] Start: 05-19-2022 End: 05-20-[address] ZULEMA MOLINA MD. Facility:[facility] Start: 05-19-2022 End: 05-19-[address] ZULEMA MOLINA MD [facility] Start: 05-11-2022 End: 05-11-2022 Emergency department patient visit [facility]-Emergency Department Start: 05-04-2022 End: 05-04-2022 Emergency department patient visit [facility]-Emergency Department Start: 04-27-2022 End: 04-27-2022 Emergency department patient visit LORENZO Micheal [facility] Start: 01-28-2022 End: 01-28-2022 ambulatory LEAD PROGRAMMER-C Milagros Hunter LEAD PROGRAMMER Work Phone: [facility] Work Phone: Start: 01-28-2022 End: 01-28-2022 Patient encounter procedure LEAD PROGRAMMER-C Milagros Hunter LEAD PROGRAMMER Work Phone: [facility]-Laboratory Start: 12-18-2021 End: 12-18-2021 Patient encounter procedure LEAD PROGRAMMER-C Milagros Hunter LEAD PROGRAMMER Work Phone: [facility] Start: 11-13-2021 End: 11-13-2021 Patient encounter procedure LEAD PROGRAMMER-C Milagros Hunter LEAD PROGRAMMER Work Phone: [facility] Start: 10-18-2021 End: 10-18-2021 Emergency department patient visit LEAD PROGRAMMER-Micheal Hunter LEAD PROGRAMMER Work Phone: [facility]-Emergency Department Start: 10-11-2021 End: 10-11-2021 Patient encounter procedure LEAD PROGRAMMER-C Milagros Hunter LEAD PROGRAMMER Work Phone: [facility] Start: 10-01-2021 Non-patient / Non-visit LEAD PROGRAMMER-C Geraldine Leigh LEAD PROGRAMMER Work Phone: [facility] Start: 10-01-2021 End: 10-01-2021 Admission to same day surgery center LEAD PROGRAMMER-C Geraldine Leigh LEAD PROGRAMMER [facility] Start: 09-30-2021 Non-patient / Non-visit LEAD PROGRAMMER-C Milagros Hunter LEAD PROGRAMMER Work Phone: [facility] Start: 09-16-2021 End: 09-16-2021 Patient encounter procedure LEAD PROGRAMMER-C Geraldine Leigh LEAD PROGRAMMER Work Phone: [facility] Start: 09-16-2021 End: 09-16-2021 Patient encounter procedure LEAD PROGRAMMER-C Geraldine Leigh LEAD PROGRAMMER Work Phone: [facility] Start: 09-09-2021 End: 09-09-2021 Patient encounter procedure LEAD PROGRAMMER-C Geraldine Leigh LEAD PROGRAMMER Work Phone: [facility] Start: 07-17-2021 End: 07-17-2021 Patient encounter procedure LEAD PROGRAMMER-C Geraldine Leigh LEAD PROGRAMMER Work Phone: [facility] Start: 07-02-2021 Non-patient / Non-visit LEAD PROGRAMMER-C Geraldine Leigh LEAD PROGRAMMER Work Phone: [facility] Start: 07-02-2021 End: 07-02-2021 Admission to same day surgery center LEAD PROGRAMMER-C Geraldine Leigh LEAD PROGRAMMER [facility] Start: 07-01-2021 Non-patient / Non-visit LEAD PROGRAMMER-C Geraldine Leigh LEAD PROGRAMMER [facility] Start: 06-19-2021 End: 06-19-2021 Patient encounter procedure LEAD PROGRAMMER-C Geraldine Leigh NP Work Phone: [facility] Procedures Date Procedure Procedure Detail Performing Clinician Start: 10-04-2024 Screening mammography Milagros CHRISTIANSENC Work Phone: Start: 09-15-2024 X-ray of cervical spine Mliagros CHRISTIANSENC Work Phone: Start: 07-05-2024 X-ray of thoracic spine, three views Milagros CHRISTIANSENC Work Phone: Start: 04-19-2024 Radionuclide gastric emptying study Milagros CHRISTIANSENC Work Phone: Start: 08-24-2023 FOLLOW UP IN PHYSICAL THERAPY NEFTALY HOR N Start: 08-17-2023 FOLLOW UP IN PHYSICAL THERAPY NEFTALY HOR N Start: 08-14-2023 FOLLOW UP IN PHYSICAL THERAPY NEFTALY HOR N Start: 08-10-2023 FOLLOW UP IN PHYSICAL THERAPY NEFTALY HOR N Start: 08-05-2023 FOLLOW UP IN PHYSICAL THERAPY NEFTALY HOR N Start: 08-03-2023 FOLLOW UP IN PHYSICAL THERAPY NEFTALY HOR N Start: 07-29-2023 FOLLOW UP IN PHYSICAL THERAPY NEFTALY HOR N Start: 07-10-2023 FOLLOW UP IN PHYSICAL THERAPY NEFTALY HOR N Start: 07-06-2023 FOLLOW UP IN PHYSICAL THERAPY NEFTALY HOR N Start: 06-30-2023 Plain x-ray of pelvis and lower extremity Start: 06-29-2023 FOLLOW UP IN PHYSICAL THERAPY NEFTALY HOR N Start: 06-26-2023 FOLLOW UP IN PHYSICAL THERAPY NEFTALY HOR N Start: 06-19-2023 FOLLOW UP IN PHYSICAL THERAPY NEFTALY HOR N Start: 06-17-2023 FOLLOW UP IN PHYSICAL THERAPY NEFTALY HOR N Start: 06-08-2023 FOLLOW UP IN PHYSICAL THERAPY NEFTALY HOR N Start: 06-05-2023 FOLLOW UP IN PHYSICAL THERAPY NEFTALY HOR N Start: 06-01-2023 FOLLOW UP IN PHYSICAL THERAPY NEFTALY HOR N Start: 05-22-2023 FOLLOW UP IN PHYSICAL THERAPY NEFTALY HOR N Start: 05-15-2023 FOLLOW UP IN PHYSICAL THERAPY NEFTALY HOR N Start: 05-13-2023 FOLLOW UP IN PHYSICAL THERAPY NEFTALY HOR N Start: 05-06-2023 FOLLOW UP IN PHYSICAL THERAPY NEFTALY HOR N Start: 04-29-2023 FOLLOW UP IN PHYSICAL THERAPY NEFTALY HOR N Start: 04-27-2023 FOLLOW UP IN PHYSICAL THERAPY NEFTALY HOR N Start: 04-20-2023 AMB REFERRAL TO PHYSICAL THERAPY NEFTALY SUGGS Start: 11-27-2022 CT of head without contrast LEAD PROGRAMMER-C Nicho mena Elsa LEAD PROGRAMMER Work Phone: Start: 10-15-2022 Plain x-ray of pelvis and lower extremity LEAD PROGRAMMER-C Milagros Elsa LEAD PROGRAMMER Work Phone: Start: 10-09-2022 Esophagogastroduodenoscopy LEAD PROGRAMMER-C Nae chris Elsa LEAD PROGRAMMER Work Phone: Start: 10-06-2022 Viral antigen assay LEAD PROGRAMMER-C Milagros Hunter LEAD PROGRAMMER Work Phone: Start: 10-03-2022 [employer] LEAD PROGRAMMER-C Milagros Elsa LEAD PROGRAMMER Work Phone: Start: 10-02-2022 Viral antigen assay LEAD PROGRAMMER-C Milagros Elsa LEAD PROGRAMMER Work Phone: Start: 09-30-2022 Plain X-ray of hip LEAD PROGRAMMER-C Milagros Hunter LEAD PROGRAMMER Work Phone: Start: 09-30-2022 Primary uncemented hemiarthroplasty of hip LEAD PROGRAMMER-C Milagros Hunter LEAD PROGRAMMER Work Phone: Start: 09-29-2022 MRI of lower extremity LEAD PROGRAMMER-C Milagros Hunter LEAD PROGRAMMER Work Phone: Start: 09-29-2022 CT cervical spine without contrast LEAD PROGRAMMER-C Milagros Hunter LEAD PROGRAMMER Work Phone: Start: 09-29-2022 CT of head without contrast LEAD PROGRAMMER-C Nicho Hunter LEAD PROGRAMMER Work Phone: Start: 09-29-2022 Pelvis X-ray LEAD PROGRAMMER-C Milagros Hunter LEAD PROGRAMMER Work Phone: Start: 09-29-2022 Plain X-ray of femur LEAD PROGRAMMER-C Milagros Hunter LEAD PROGRAMMER Work Phone: Start: 06-24-2022 Screening mammography LEAD PROGRAMMER-C Milagros Hunter LEAD PROGRAMMER Work Phone: Start: 05-27-2022 Dual energy X-ray absorptiometry LEAD PROGRAMMER-C Regino Hunter LEAD PROGRAMMER Work Phone: Start: 05-11-2022 Computed tomography of abdomen and pelvis with intravenous contrast Start: 05-04-2022 Computed tomography of abdomen and pelvis with contrast Start: 10-18-2021 Plain x-ray of hand LEAD PROGRAMMER-C Milagros Hunter LEAD PROGRAMMER Work Phone: Start: 10-18-2021 Plain X-ray of shoulder LEAD PROGRAMMER-C Milagros Hunter LEAD PROGRAMMER Work Phone: Start: 10-18-2021 X-ray of cervical spine LEAD PROGRAMMER-C Milagros Hunter LEAD PROGRAMMER Work Phone: Start: 10-01-2021 Repair of incisional hernia using surgical mesh LEAD PROGRAMMER-C Geraldine Leigh LEAD PROGRAMMER Work Phone: Start: 09-16-2021 CT of abdomen and pelvis without contrast LEAD PROGRAMMER-C Geraldine Leigh LEAD PROGRAMMER Work Phone: Start: 11-19-2016 End: 11-26-2016 CBC W Auto Differential panel - Blood Matias Best MD Start: 11-19-2016 End: 11-26-2016 Thyroid stimulating hormone (TSH) Matias Best MD Start: 11-18-2016 End: 11-19-2016 Stress Echocardiogram - Dobutamine Matias Best MD Start: 10-20-2016 End: 10-20-2016 Follow Up Appt 1 year Matias Best MD Start: 10-20-2016 End: 10-20-2016 PFM Matias Best MD Start: 01-31-2016 History of cataract extraction S/P cataract extraction and insertion of intraocular lens Laure Varela II, OD Work Phone: Start: 10-15-2015 End: 10-15-2015 Follow Up Appt 1 year Matias Best MD Start: 10-15-2015 End: 10-15-2015 PFM Matias Best MD Start: 05-01-2015 End: 05-01-2015 Follow Up Appt 6 months Jamila Bob PA-C Work Phone: Start: 05-01-2015 End: 05-01-2015 PFM Jamila Bob PA-C Work Phone: Start: 11-06-2014 End: 11-07-2014 Documentation of current medications Matias Best MD Start: 11-06-2014 End: 11-06-2014 Electrocardiogram, danie meadows MD Start: 11-06-2014 End: 11-06-2014 Follow Up Appt 6 months Matias Best MD Start: 11-06-2014 End: 11-06-2014 MMM Matias Best MD Start: 03-15-2014 End: 03-15-2014 Follow Up Appt 6 months Jamila Bob PA-C Work Phone: Start: 03-15-2014 End: 03-15-2014 PFM Jamila Bob PA-C Work Phone: Start: 01-26-2014 End: 03-02-2014 Echocardiography Matias Best MD Start: 01-26-2014 End: 03-02-2014 Electrocardiogram, danie meadows MD Start: 01-26-2014 End: 01-26-2014 Follow Up Appt 6 weeks Matias Best MD Start: 01-26-2014 End: 01-26-2014 MMM Matias Best MD Start: 01-26-2014 End: 03-02-2014 Stress Echocardiogram - Dobutamine Matias Best MD Arthrp kne condyle&p latu medial&lat compartments DR ZULEMA MOLINA MD Comment on above: BILATERAL Catheter ablation of arrhythmogenic focus DR ZULEMA MOLINA MD CT guided kyphoplast y of fracture of thoracic spine DR ZULEMA MOLINA MD Esophageal hiatus hernia repair DR ZULEMA MOLINA MD Urine culture Urine culture LEAD PROGRAMMER-C Milagros Hunter LEAD PROGRAMMER Work Phone: Viral antigen assay Viral antigen assay LEAD PROGRAMMER-C Lexie Hunter LEAD PROGRAMMER Work Phone: Plan of Treatment Date Care Activity Detail Author Start: 04-30-2030 Urine microalbumin profile DTa P,Tdap,Td Vaccine (2 - Td or Tdap) [facility] Start: 10-12-2026 Diabetes Screening Diabetes Screenin g [facility] Start: 07-08-2026 Diabetes Screening Diabetes Screenin g [facility] Start: 08-24-2024 End: 08-24-2024 Patient encounter procedure 08/24/2024 11:00 AM EDT Office Visit [facility] [address] [place] [address] Laure Varela II, OD [address] [place] [address] Eye exam Optometry Comment on above: Eye exam Start: 01-10-2024 Influenza vaccination Influenz a Vaccine (Season Ended) [facility] Start: 10-21-2023 End: 10-21-2023 Patient encounter procedure 10/21/2023 11:30 AM EDT Office Visit Plastic Surgery [address] [facility] [address] [place] [address] Dc Lemos MD [address] [facility] [address] [place] [address] Facial Fracture On 10/13/2023 went to [facility] for this and was told to follow up Plastic Surgery Comment on above: Facial Fracture On went to [facility] for this and was told to follow up Start: 06-30-2023 [facility] Start: 06-30-2023 Plain x-ray of pelvi s and lower extremity HIP, UNI W/ Pelvis 2-3 Views [facility] Start: 06-30-2023 XR Pelvis and Hip Views [facility] Start: 05-11-2023 Advance Directive Discussion Advance Directive Discussion [facility] Start: 05-11-2023 Behavioral Health Screening Behavioral Health Screening [facility] Start: 01-09-2023 Covid-19 Vaccine () Covid-19 Vaccine () [facility] Start: 11-28-2022 Blood chemistry [facility] Start: 11-28-2022 Assessment of risk o f venous thromboembolism [facility] Start: 11-28-2022 Insertion of cathete r into peripheral vein [facility] Start: 11-28-2022 Oxygen therapy [facility] Start: 11-28-2022 Providing care accor ding to standard [facility] Start: 11-28-2022 Provision of activit y privileges [facility] Start: 11-28-2022 Referral to occupati onal therapist [facility] Start: 11-28-2022 Referral to service [facility] Start: 11-28-2022 [facility] Start: 11-28-2022 Verification routine [facility] Start: 11-28-2022 Admission procedure [facility] Start: 11-27-2022 Bacteria identified in Blood by Culture Blood Culture [facility] Start: 11-27-2022 Bacteria identified in Urine by Culture Urine Culture [facility] Start: 11-27-2022 [facility] Start: 11-27-2022 Plain chest X-ray Chest PA and Later al [facility] Start: 11-27-2022 XR Chest PA and Lateral [facility] Start: 11-27-2022 End: 11-27-2022 Blood culture [facility] Start: 11-27-2022 End: 11-27-2022 [facility] Start: 11-07-2022 Blood chemistry [facility] Start: 10-31-2022 Blood chemistry [facility] Start: 10-24-2022 Blood chemistry [facility] Start: 10-17-2022 Blood chemistry [facility] Start: 10-17-2022 Patient discharge [facility] Start: 10-16-2022 Development of care plan [facility] Start: 10-16-2022 [facility] Start: 10-16-2022 [facility] Start: 10-14-2022 Referral to service [facility] Start: 10-13-2022 [facility] Start: 10-10-2022 Blood chemistry [facility] Start: 10-09-2022 Egd insert guide wir e dilator passage esophagus EGD GUIDE WIRE INSERTION [facility] Start: 10-09-2022 Patient discharge [facility] Start: 10-07-2022 Referral to ear, nos e and throat service [facility] Start: 10-07-2022 Referral to gastroenterology service [facility] Start: 10-03-2022 Application of device [facility] Start: 10-03-2022 Development of care plan [facility] Start: 10-03-2022 Developing a treatme nt plan [facility] Start: 10-03-2022 Verification routine [facility] Start: 10-03-2022 Introduction of urin samantha catheter [facility] Start: 10-03-2022 Speech therapy assessment [facility] Start: 10-03-2022 Following clinical p athway protocol [facility] Start: 10-02-2022 Admission procedure [facility] Start: 10-02-2022 Measuring intake and output [facility] Start: 10-02-2022 Patient referral to dietitian [facility] Start: 10-02-2022 Referral to occupati onal therapist [facility] Start: 10-02-2022 Referral to service [facility] Start: 10-02-2022 Vital signs measurements [facility] Start: 10-02-2022 End: 10-03-2022 [facility] Start: 10-02-2022 Patient discharge [facility] Start: 10-02-2022 Introduction of urin samantha catheter [facility] Start: 10-01-2022 Speech therapy assessment [facility] Start: 10-01-2022 Removal of urinary catheter [facility] Start: 10-01-2022 Removal of urinary catheter [facility] Start: 09-30-2022 End: 09-30-2022 [facility] Start: 09-30-2022 Ambulation therapy management [facility] Start: 09-30-2022 Application of device [facility] Start: 09-30-2022 Exercises [facility] Start: 09-30-2022 Following clinical p athway protocol [facility] Start: 09-30-2022 Neurovascular assessment [facility] Start: 09-30-2022 Patient education [facility] Start: 09-30-2022 Provision of activit y privileges [facility] Start: 09-30-2022 Recommendation to co judie with treatment [facility] Start: 09-30-2022 Referral to occupati onal therapist [facility] Start: 09-30-2022 Referral to service [facility] Start: 09-30-2022 Vital signs measurements [facility] Start: 09-30-2022 Wound care [facility] Start: 09-29-2022 End: 09-30-2022 [facility] Start: 09-29-2022 Ambulation without limitation [facility] Start: 09-29-2022 Assessment of risk o f venous thromboembolism [facility] Start: 09-29-2022 Consultation [facility] Start: 09-29-2022 Inhalation therapy procedure [facility] Start: 09-29-2022 Insertion of cathete r into peripheral vein [facility] Start: 09-29-2022 Measuring intake and output [facility] Start: 09-29-2022 Providing care accor ding to standard [facility] Start: 09-29-2022 Referral to occupati onal therapist [facility] Start: 05-22-2023 Referral to service [facility] Start: 09-29-2022 Care of central veno us catheter [facility] Start: 09-29-2022 Following clinical p athway protocol [facility] Start: 09-29-2022 Admission procedure [facility] Start: 09-29-2022 Patient referral to dietitian [facility] Start: 09-29-2022 [facility] Start: 09-16-2022 Procedure [facility] Start: 05-04-2022 [facility] Work Phone: Start: 05-04-2022 [facility] Start: 01-28-2022 Procedure [facility] Work Phone: Start: 10-01-2021 Anes hrna rpr upr ab d lmbr&ventral hernia&dehisc ANESTH REPAIR OF HERNIA [facility] Work Phone: Start: 10-01-2021 Repair first abdomin al wall hernia RPR VENTRAL UTE INIT REDUC [facility] Work Phone: Start: 09-09-2021 Patient referral [facility] Work Phone: Start: 07-02-2021 Anesthesia intraperi toneal lower abd w/laps nos ANESTH SURG LOWER ABDOMEN [facility] Work Phone: Start: 07-02-2021 Laparoscopy w/rmvl a dnexal structures LAPAROSCOPY REMOVE ADNEXA [facility] Work Phone: Start: 10-19-2017 End: 10-19-2017 Appointment [facility] Work Phone: Start: 11-19-2016 End: 11-26-2016 CBC W Auto Differential panel - Blood *CBC without Diff [facility] Work Phone: Start: 11-19-2016 End: 11-26-2016 Thyroid stimulating hormone (TSH) *TSH [facility] Work Phone: Start: 11-18-2016 End: 11-14-2016 Stress Echocardiogram - Dobutamine Stress Echocardiogram - Dobutamine [facility] Work Phone: Start: 10-20-2016 End: 10-20-2016 Follow Up Appt 1 year Follow Up Appt 1 year [facility] Work Phone: Start: 10-20-2016 End: 10-20-2016 Follow Up Appt Other Follow Up Appt Other [facility] Work Phone: Start: 10-20-2016 End: 10-20-2016 PFM PFM [facility] Work Phone: Start: 10-20-2016 End: 10-20-2016 Stress Echocardiogram - Dobutamine Stress Echocardiogram - Dobutamine [facility] Work Phone: Start: 10-15-2015 End: 10-15-2015 Follow Up Appt 1 year Follow Up Appt 1 year [facility] Work Phone: Start: 10-15-2015 End: 10-15-2015 PFM PFM [facility] Work Phone: Start: 05-01-2015 End: 05-01-2015 Follow Up Appt 6 months Follow Up Appt 6 months [facility] Work Phone: Start: 05-01-2015 End: 05-01-2015 PFM PFM [facility] Work Phone: Start: 11-06-2014 End: 11-06-2014 Electrocardiogram, complete EKG (In office) [facility] Work Phone: Start: 11-06-2014 End: 11-06-2014 Follow Up Appt 6 months Follow Up Appt 6 months [facility] Work Phone: Start: 11-06-2014 End: 11-06-2014 MMM MMM [facility] Work Phone: Start: 03-15-2014 End: 03-15-2014 Follow Up Appt 6 months Follow Up Appt 6 months [facility] Work Phone: Start: 03-15-2014 End: 03-15-2014 PFM PFM [facility] Work Phone: Start: 01-26-2014 End: 01-26-2014 Echocardiography Echocardiogram (complete) [facility] Work Phone: Start: 01-26-2014 End: 03-02-2014 [facility] Start: 01-26-2014 End: 01-26-2014 Follow Up Appt 6 weeks Follow Up Appt 6 weeks [facility] Work Phone: Start: 01-26-2014 End: 01-26-2014 MMM MMM [facility] Work Phone: Start: 01-26-2014 End: 01-26-2014 Stress Echocardiogram - Dobutamine Stress Echocardiogram - Dobutamine [facility] Work Phone: Start: 09-08-2003 Screening for osteoporosis Bone Dens ity Screening [facility] Start: 1998 RSV Vaccine (1 - 1-d ose 60+ series) RSV Vaccine (1 - 1-dose 60+ series) [facility] Start: 1957 Shingrix Vaccine (1 of 2) Hahn grix Vaccine (1 of 2) [facility] Start: 1949 Screening for malign ant neoplasm of cervix Cervical Cancer Screening [facility] Anion gap measurement [facility] Anion gap measurement [facility] Anion gap measurement [facility] Anion gap measurement [facility] Anion gap measurement [facility] Anion gap measurement [facility] Bacteria identified in Urine by Culture Urine Culture [facility] Work Phone: BUN/Creatinine ratio [facility] BUN/Creatinine ratio [facility] BUN/Creatinine ratio [facility] BUN/Creatinine ratio [facility] BUN/Creatinine ratio [facility] BUN/Creatinine ratio [facility] Calcium [Mass/volume ] in Serum or Plasma [facility] Calcium [Mass/volume ] in Serum or Plasma [facility] Calcium [Mass/volume ] in Serum or Plasma [facility] Calcium [Mass/volume ] in Serum or Plasma [facility] Calcium [Mass/volume ] in Serum or Plasma [facility] Calcium [Mass/volume ] in Serum or Plasma [facility] Carbon dioxide, tota l [Moles/volume] in Serum or Plasma [facility] Carbon dioxide, tota l [Moles/volume] in Serum or Plasma [facility] Carbon dioxide, tota l [Moles/volume] in Serum or Plasma [facility] Carbon dioxide, tota l [Moles/volume] in Serum or Plasma [facility] Carbon dioxide, tota l [Moles/volume] in Serum or Plasma [facility] Carbon dioxide, tota l [Moles/volume] in Serum or Plasma [facility] Chloride [Moles/volu me] in Serum or Plasma [facility] Chloride [Moles/volu me] in Serum or Plasma [facility] Chloride [Moles/volu me] in Serum or Plasma [facility] Chloride [Moles/volu me] in Serum or Plasma [facility] Chloride [Moles/volu me] in Serum or Plasma [facility] Chloride [Moles/volu me] in Serum or Plasma [facility] Creatinine [Moles/vo lume] in Serum or Plasma [facility] Creatinine [Moles/vo lume] in Serum or Plasma [facility] Creatinine [Moles/vo lume] in Serum or Plasma [facility] Creatinine [Moles/vo lume] in Serum or Plasma [facility] Creatinine [Moles/vo lume] in Serum or Plasma [facility] Creatinine [Moles/vo lume] in Serum or Plasma [facility] Glucose [Mass/volume ] in Serum or Plasma [facility] Glucose [Mass/volume ] in Serum or Plasma [facility] Glucose [Mass/volume ] in Serum or Plasma [facility] Glucose [Mass/volume ] in Serum or Plasma [facility] Glucose [Mass/volume ] in Serum or Plasma [facility] Glucose [Mass/volume ] in Serum or Plasma [facility] Hematocrit [Volume Fraction] of Blood [facility] Hematocrit [Volume Fraction] of Blood [facility] Hematocrit [Volume Fraction] of Blood [facility] Hematocrit [Volume Fraction] of Blood [facility] Hematocrit [Volume Fraction] of Blood [facility] Hematocrit [Volume Fraction] of Blood [facility] Hemoglobin [Mass/vol ume] in Blood [facility] Hemoglobin [Mass/vol ume] in Blood [facility] Hemoglobin [Mass/vol ume] in Blood [facility] Hemoglobin [Mass/vol ume] in Blood [facility] Hemoglobin [Mass/vol ume] in Blood [facility] Hemoglobin [Mass/vol ume] in Blood [facility] Leukocytes [#/volume ] in Blood [facility] Leukocytes [#/volume ] in Blood [facility] Leukocytes [#/volume ] in Blood [facility] Leukocytes [#/volume ] in Blood [facility] Leukocytes [#/volume ] in Blood [facility] Leukocytes [#/volume ] in Blood [facility] Mean corpuscular hemoglobin concentration determination [facility] Mean corpuscular hemoglobin concentration determination [facility] Mean corpuscular hemoglobin concentration determination [facility] Mean corpuscular hemoglobin concentration determination [facility] Mean corpuscular hemoglobin concentration determination [facility] Mean corpuscular hemoglobin concentration determination [facility] Mean corpuscular hemoglobin determination [facility] Mean corpuscular hemoglobin determination [facility] Mean corpuscular hemoglobin determination [facility] Mean corpuscular hemoglobin determination [facility] Mean corpuscular hemoglobin determination [facility] Mean corpuscular hemoglobin determination [facility] Measurement of renal function [facility] Measurement of renal function [facility] Measurement of renal function [facility] Measurement of renal function [facility] Measurement of renal function [facility] Measurement of renal function [facility] Neutrophil count [place] [facility] Neut[facility]il count [facility] Neutrophil count [facility] Neutrophil count [facility] Neutrophil count [facility] Neutrophil count [facility] Neutrophil percent differential count [facility] Neutrophil percent differential count [facility] Neutrophil percent differential count [facility] Neutrophil percent differential count [facility] Neutrophil percent differential count [facility] Neutrophil percent differential count [facility] Patient Education [facility] Work Phone: Patient referral [facility] Work Phone: Platelets [#/volume] in Blood [facility] Platelets [#/volume] in Blood [facility] Platelets [#/volume] in Blood [facility] Platelets [#/volume] in Blood [facility] Platelets [#/volume] in Blood [facility] Platelets [#/volume] in Blood [facility] Potassium [Moles/vol ume] in Serum or Plasma [facility] Potassium [Moles/vol ume] in Serum or Plasma [facility] Potassium [Moles/vol ume] in Serum or Plasma [facility] Potassium [Moles/vol ume] in Serum or Plasma [facility] Potassium [Moles/vol ume] in Serum or Plasma [facility] Potassium [Moles/vol ume] in Serum or Plasma [facility] Procedure [facility] Work Phone: Red blood cell count [facility] Red blood cell count [facility] Red blood cell count [facility] Red blood cell count [facility] Red blood cell count [facility] Red blood cell count [facility] Red cell distributio n width determination [facility] Red cell distributio n width determination [facility] Red cell distributio n width determination [facility] Red cell distributio n width determination [facility] Red cell distributio n width determination [facility] Red cell distributio n width determination [facility] Sodium [Moles/volume ] in Serum or Plasma [facility] Sodium [Moles/volume ] in Serum or Plasma [facility] Sodium [Moles/volume ] in Serum or Plasma [facility] Sodium [Moles/volume ] in Serum or Plasma [facility] Sodium [Moles/volume ] in Serum or Plasma [facility] Sodium [Moles/volume ] in Serum or Plasma [facility] Urea nitrogen [Mass/volume] in Serum or Plasma [facility] Urea nitrogen [Mass/volume] in Serum or Plasma [facility] Urea nitrogen [Mass/volume] in Serum or Plasma [facility] Urea nitrogen [Mass/volume] in Serum or Plasma [facility] Urea nitrogen [Mass/volume] in Serum or Plasma [facility] Urea nitrogen [Mass/volume] in Serum or Plasma [facility] Immunizations Immunization Date Immunization Notes Care Provider [facility] 10-13-2023 tetanus toxoid, redu natalee diphtheria toxoid, and acellular pertussis vaccine, adsorbed MILAGROS ELSA CORK TILE FLOOR LAYER-SPENT GRAIN DRYER [facility] 10-16-2022 pneumococcal 20-edel nt conjugate vaccine MILAGROSAALIYAH ROBLESER CORK TILE FLOOR LAYER-SPENT GRAIN DRYER [facility] 10-16-2022 Pneumococcal Vaccine PCV20 (Prevnar 20) LEAD PROGRAMMER-C Milagros Hunter LEAD PROGRAMMER Work Phone: [facility] 03-25-2022 influenza virus vacc ine, unspecified formulation DR ZULEMA MOLINA MD [facility] 03-25-2022 Influenza, high dose seasonal Milagros Hunter LEAD PROGRAMMER-C Work Phone: [facility] 03-25-2022 influenza, high dose seasonal, preservative-free LEAD PROGRAMMER-C Milagros Hunter LEAD PROGRAMMER Work Phone: [facility] 06-11-2021 SARS-CoV-2 (COVID-19 ) mRNA-[address] ZULEMA MOLINA MD [facility] 04-16-2021 influenza virus vacc ine, unspecified formulation DR ZULEMA MOLINA MD [facility] 04-16-2021 influenza, injectabl e, quadrivalent, preservative free LEAD PROGRAMMER-C Milagros Hunter LEAD PROGRAMMER Work Phone: [facility] 04-16-2021 influenza, seasonal, injectable LEAD PROGRAMMER-C Milagros Hunter LEAD PROGRAMMER Work Phone: [facility] 07-05-2020 SARS-CoV-2 (COVID-19 ) mRNA-[address] ZULEMA MOLINA MD [facility] 06-07-2020 SARS-CoV-2 (COVID-19 ) mRNA-[address] ZULEMA MOLINA MD [facility] 04-30-2020 tetanus toxoid, redu natalee diphtheria toxoid, and acellular pertussis vaccine, adsorbed DR ZULEMA MOLINA MD [facility] 03-27-2020 influenza virus vacc ine, unspecified formulation DR ZULEMA MOLINA MD [facility] 03-27-2020 Influenza, high dose seasonal Milagros Elsa LEAD PROGRAMMER-C Work Phone: [facility] 03-27-2020 influenza, high dose seasonal, preservative-free LEAD PROGRAMMER-C Milagros Elsa LEAD PROGRAMMER Work Phone: [facility] 03-16-2019 influenza virus vacc ine, unspecified formulation DR ZULEMA MOLINA MD [facility] 03-16-2019 influenza, injectabl e, quadrivalent, preservative free LEAD PROGRAMMER-C Milagros Elsa LEAD PROGRAMMER Work Phone: [facility] 03-16-2019 influenza, seasonal, injectable LEAD PROGRAMMER-C Milagros Elsa LEAD PROGRAMMER Work Phone: [facility] 03-12-2018 influenza virus vacc ine, unspecified formulation DR ZULEMA MOLINA MD [facility] 03-12-2018 influenza, injectabl e, quadrivalent, preservative free LEAD PROGRAMMER-C Milagros Elsa LEAD PROGRAMMER Work Phone: [facility] 03-12-2018 influenza, seasonal, injectable LEAD PROGRAMMER-C Milagros Elsa LEAD PROGRAMMER Work Phone: [facility] 05-01-2017 influenza virus vacc ine, unspecified formulation DR ZULEMA MOLINA MD [facility] 05-01-2017 influenza, injectabl e, quadrivalent, preservative free LEAD PROGRAMMER-C Milagros Elsa LEAD PROGRAMMER Work Phone: [facility] 05-01-2017 influenza, seasonal, injectable LEAD PROGRAMMER-C Milagros Elsa LEAD PROGRAMMER Work Phone: [facility] 11-07-2016 pneumococcal polysaccharide vaccine, [address] ZULEMA MOLINA MD [facility] 07-02-2016 influenza virus vacc ine, unspecified formulation DR ZULEMA MOLINA MD [facility] 07-02-2016 influenza, injectabl e, quadrivalent, preservative free LEAD PROGRAMMER-C Milagros Elsa LEAD PROGRAMMER Work Phone: [facility] 07-02-2016 influenza, seasonal, injectable LEAD PROGRAMMER-C Milagros Elsa LEAD PROGRAMMER Work Phone: [facility] 03-28-2015 influenza virus vacc ine, unspecified formulation DR ZULEMA MOLINA MD [facility] 03-28-2015 influenza, injectabl e, quadrivalent, preservative free LEAD PROGRAMMER-C Milagros Elsa LEAD PROGRAMMER Work Phone: [facility] 03-28-2015 influenza, seasonal, injectable LEAD PROGRAMMER-C Milagros Elsa LEAD PROGRAMMER Work Phone: [facility] 03-10-2014 influenza virus vacc ine, unspecified formulation DR ZULEMA MOLINA MD [facility] 03-10-2014 influenza, injectabl e, quadrivalent, preservative free LEAD PROGRAMMER-C Milagros Elsa LEAD PROGRAMMER Work Phone: [facility] 03-10-2014 influenza, seasonal, injectable LEAD PROGRAMMER-C Milagros Elsa LEAD PROGRAMMER Work Phone: [facility] 03-10-2014 pneumococcal polysaccharide vaccine, [address] ZULEMA MOLINA MD [facility] 06-29-2013 influenza virus vacc ine, unspecified formulation DR ZULEMA MOLINA MD [facility] 06-29-2013 influenza, injectabl e, quadrivalent, preservative free LEAD PROGRAMMER-C Milagros Hunter LEAD PROGRAMMER Work Phone: [facility] 06-29-2013 influenza, seasonal, injectable LEAD PROGRAMMER-C Milagros Robleser LEAD PROGRAMMER Work Phone: [facility] 04-22-2012 influenza virus vacc ine, unspecified formulation DR ZULEMA MOLINA MD [facility] 04-22-2012 influenza, injectabl e, quadrivalent, preservative free LEAD PROGRAMMER-C Milagros Hunter LEAD PROGRAMMER Work Phone: [facility] 04-22-2012 influenza, seasonal, injectable LEAD PROGRAMMER-C Milagros Robleser LEAD PROGRAMMER Work Phone: [facility] Payers Date Payer Category Payer Private Health Insurance [id number] 2023 Self-pay [id number] 2022 Medicaid [id number] 2011 Medicare HUMANA MEDICARE HUMANA MEDICARE PPO [id number] 2011-Present [phone] [place] [address] PPO [id number] 2011 Medicare [id number] 1938 Unknown [id number] 2..840.1.733988.3.579.2.6 1938 Unknown [id number] 2.16.840.1.463074.3.579.2.6 27 1938 Unknown [id number] 2.16.840.1.777142.3.579.2.6 1938 Unknown [id number] 2.16.840.1.498452.3.579.2.6 51 1938 Unknown [id number] 2.16.840.1.591814.3.579.2.6 51 1938 Unknown [id number] 2.16.840.1.960182.3.579.2.1 243 1938 Unknown [id number] 2.16.840.1.789687.3.579.2.1 243 1938 Unknown [id number] 2.16.840.1.058993.3.579.2.1 243 1938 Unknown [id number] 2.16.840.1.240022.3.579.2.1 243 1938 Unknown [id number] 2.16.840.1.506836.3.579.2.1 243 1938 Unknown [id number] 2.16.840.1.012532.3.579.2.1 243 1938 Unknown [id number] 2.16.840.1.337138.3.579.2.1 1938 Unknown [id number] 2.16.840.1.649465.3.579.2.1 1938 Unknown [id number] 2.16.840.1.776714.3.579.2.1 1938 Unknown [id number] 2.16.840.1.578134.3.579.2.1 1938 Unknown [id number] 2.16.840.1.891347.3.579.2.1 1938 Unknown [id number] 2.16.840.1.014239.3.579.2.1 1938 Unknown [id number] 2.16.840.1.314210.3.579.2.1 1938 Unknown [id number] 2.16.840.1.601945.3.579.2.1 1938 Unknown [id number] 2.16.840.1.810510.3.579.2.1 1938 Unknown [id number] 2.16.840.1.535755.3.579.2.1 1938 Unknown [id number] 2.16.840.1.782707.3.579.2.1 1938 Unknown [id number] 2.16.840.1.539163.3.579.2.1 1938 Unknown [id number] 2.840.1.565686.3.579.2.1 1938 Unknown [id number] 2.840.1.889279.3.579.2.1 1938 Unknown [id number] 2.840.1.359968.3.579.2.1 1938 Unknown [id number] 2.840.1.491614.3.579.2.1 [facility] 1940 Unknown [id number] 2.840.1.742791.3.579.2.1 1938 Unknown [id number] 2.840.1.135858.3.579.2.1 [facility] 1940 Unknown [id number] 2.840.1.029794.3.579.2.1 [facility] 1940 Unknown [id number] 2.16840.1.469964.3.579.2.1 245 Medicaid MEDICAID [id number] Unknown [id number] 2.16840.1.516345.3.579.2.4 62 Unknown [id number] 2.16840.1.635755.3.579.2.4 62 Unknown [id number] 2.16.840.1.243649.3.579.2.4 62 Unknown [id number] 2.16.840.1.797994.3.579.2.4 62 Unknown [id number] 2.16.840.1.455189.3.579.2.4 62 Unknown [id number] 2.16.840.1.290288.3.579.2.4 62 Unknown [id number] 2.16.840.1.893922.3.579.2.4 62 Unknown [id number] 2.16.840.1.750193.3.579.2.4 62 Unknown [id number] 2.16.840.1.688641.3.579.2.4 62 Unknown [id number] 2.16.840.1.593832.3.579.2.4 62 Unknown [id number] 2.16.840.1.451839.3.579.2.4 62 Unknown [id number] 2.16.840.1.399136.3.579.2.4 62 Unknown [id number] 2.16.840.1.577800.3.579.2.4 62 Unknown [id number] 2.16.840.1.399113.3.579.2.4 62 Unknown [id number] 2.16.840.1.395397.3.579.2.4 62 Social History Date Type Detail Facility [facility] Work Phone: Start: 09-16-2021 End: 06-30-2023 Tobacco smoking status INIS Unknown if ever smoked [facility] Start: 1940 Sex Assigned At Female [facility] Start: 12-18-2021 End: 03-07-2024 Tobacco smoking status Never smoked tobacco (finding) [facility] Start: 05-26-2015 Tobacco use and exposure Smokeless tobacco non-user [facility] Start: 08-20-2023 Alcohol intake Ex-drinker (finding) [facility] Start: 08-20-2023 History of Social function [facility] Start: 08-20-2023 Area Deprivation Index [facility] National Score (1-100), lower number is lower risk 47 [facility] Start: 1940 Sex Assigned At Not on file [facility] Start: 07-20-2024 Sex Female (finding) [facility] NEGATED: Highlighted row [facility] Medical Equipment Procedure Code Equipment Code Equipment Origin al Text Equipment Identifier Dates Primary uncemented hemiarthroplasty of hip KIT,FEMORAL BONE CEMENT PREP FDA Start: 09-30-2022 Primary uncemented hemiarthroplasty of hip ([id number]) Uncoated hip femur prosthesis, one-piece ()[id number] FDA Start: 09-30-2022 Primary uncemented hemiarthroplasty of hip ([id number]) Orthopaedic cement spacer ()[id number] FDA Start: 09-30-2022 Primary uncemented hemiarthroplasty of hip (104507310) Coated hip femur prosthesis, modular ()[id number] FDA Start: 09-30-2022 Primary uncemented hemiarthroplasty of hip (028898028) Uncoated hip femur prosthesis, one-piece ()[id number] FDA Start: 09-30-2022 Primary uncemented hemiarthroplasty of hip Orthopaedic cement, non-antimicrobial ()[id number] FDA Start: 09-30-2022 Primary uncemented hemiarthroplasty of hip KIT,FEMORAL BONE CEMENT PREP FDA Start: 09-30-2022 Primary uncemented hemiarthroplasty of hip KIT,FEMORAL BONE CEMENT PREP FDA Start: 09-30-2022 Primary uncemented hemiarthroplasty of hip KIT,FEMORAL BONE CEMENT PREP FDA Start: 09-30-2022 Primary uncemented hemiarthroplasty of hip KIT,FEMORAL BONE CEMENT PREP FDA Start: 09-30-2022 Primary uncemented hemiarthroplasty of hip KIT,FEMORAL BONE CEMENT PREP FDA Start: 09-30-2022 Primary uncemented hemiarthroplasty of hip KIT,FEMORAL BONE CEMENT PREP FDA Start: 09-30-2022 Primary uncemented hemiarthroplasty of hip KIT,FEMORAL BONE CEMENT PREP FDA Start: 09-30-2022 Goals Date Patient Goal Desired Activity /State Functional Status Date Assessment Result Facility 10-17-2022 Functional status Ambulates;Up ad gaye [facility] Work Phone: 10-09-2022 Functional status Bedrest [facility] Work Phone: 10-07-2022 Functional status Tolerates Activity Fair [facility] Work Phone: 10-02-2022 Functional status Chair [facility] Work Phone: 10-02-2022 Functional status Assistive Hannah faheem Rolling Walker [facility] Work Phone: 09-30-2022 Functional status Tolerates Activity Fair [facility] Work Phone: 05-19-2022 Functional Status Standard Safet y Precautions maintained [facility] 05-19-2022 Functional Status [facility] Mental Status Date Assessment Result Facility 11-27-2022 Cognitive function Level Of Cons ciousness Awake;Alert;Appropriate;Follow s Commands [facility] Work Phone: 10-17-2022 Cognitive function Voice/Name [facility] Work Phone: 10-13-2022 Cognitive function Appropriate [facility] Work Phone: 10-09-2022 Cognitive function Voice/Name [facility] Work Phone: 10-08-2022 Cognitive function Voice/Name [facility] Work Phone: 10-02-2022 Cognitive function Voice/Name [facility] Work Phone: 05-19-2022 Mental Status Orientation Oriented x 4 [facility] 10-01-2021 Cognitive function Voice/Name [facility] Work Phone: 07-02-2021 Cognitive function Voice/Name [place] [facility] Work Phone: Clinical Notes 12-10-2015 to 09-17-2024 Note Date & Type Note Facility 09-17-2024 Radiology Diagnostic study note [facility] Imaging Services [address] [place] [address] Cerv Spine 2 or 3 Views MR#: [id number] Acct: [id number] Name: HUYEN VALERIO Rep #: [id number] : 1940 F 84 From: Kelli Manning MD PCP: KULDIP BarreraC Status: HECTOR Nix CLI Study:Cerv Spine 2 or 3 Views Date of Exam: 09/15/24 Exam# [id number] Ordering Dr: Gi Hoskins MD EXAM: XR Cervical Spine, 2 or 3 Views CLINICAL INDICATION: NECK PAIN TECHNIQUE: Frontal and lateral views of the cervical spine. COMPARISON: XR Cervical Spine dated 10/18/2021 FINDINGS: VERTEBRAE: Degenerative facet arthropathy throughout the cervical spine. Normal alignment. No acute fracture. DISC SPACES: Degenerative disc disease throughout the cervical spine. SOFT TISSUES: Unremarkable. RAD/Cerv Spine 2 or 3 Views IMPRESSION: 1. No acute fracture. 2. If symptoms persist, further evaluation with MRI is recommended. 3. Degenerative changes of the cervical spine as described. Reading Location: [facility] CC: LEAD PROGRAMMER-Micheal Hunter; Dr. Mylene Hoskins MD ~ Hydro Operator: Signed [facility] 07-05-2024 Radiology Diagnostic study note [facility] Imaging Services [address] [place] [address] Thoracic Spine 3 Views MR#: [id number] Acct: [id number] Name: HUYEN VALERIO I Rep #: [id number] : 1940 F 83 From: Bret Clemens MD PCP: KULDIP BarreraC Status: HECTOR G CLI Study:Thoracic Spine 3 Views Date of Exam: 07/05/24 Exam# [id number] Ordering Dr: Gi Hoskins MD PROCEDURE: THORACIC SPINE 3 VIEWS REASON FOR EXAM: History of compression fracture. TECHNIQUE: AP and lateral views of the thoracic spine were obtained. COMPARISON: None. FINDINGS: Almost complete collapse of the T4 and T5 vertebrae. Prior vertebroplasty of the T4 vertebrae. Loss of height of the superior endplate of the T6 vertebrae. Mild multilevel disc space narrowing. Demineralization of the thoracic vertebrae. Increased kyphosis. Reading Location: [id number] CC: LEAD PROGRAMMER-C Milagros Hunter; Dr. Mylene Hoskins MD ~ Hydro Operator: Signed [facility] 06-28-2024 Evaluation note Diagnosis Onset Date Resolution Hiatal hernia with GERD acute June 28, 9:15am Nausea acute June 28, 2024 9:15am [facility] Work Phone: 1(493) 516-541211-19-2024 Evaluation note* Diagnosis Onset Date Resolution Status Admit Date Hiatal hernia with GERD acute N ovember 2023 1:49pm Nausea acute March 29, 2024 1:49pm Hiatal hernia with GERD acute F ebruary 2024 9:15am Nausea acute June 28, 2024 9:15am [facility] Work Phone: 1(124) 261-292310-29-2024 [facility] Medical Records Department [address] [place] [id number] History Physical Exam 03/08/24 1152 MR#: [id number] Acct: [id number] Name: HUYEN VALERIO I Rep #: [id number] : 1940 83 From: Jimenez Friend DO PCP: YENIFER Barrera Status:[facility] Location: [address] History and Physical Date of Admission: 03/08/24 HUYEN VALERIO, is a 83 F who presents to the office today for establishment with [facility]. She has a PMHx of Zenker diverticulum, GERD, RA, MVP, PVCs and osteoporosis. She is here today for persistent nausea and epigastric pain. She had an EGD with Dr. Matthew in October 2022 which showed Zenker diverticulum, hiatal hernia and stenosis. She had repair of the diverticulum in March which helped with her dysphagia a little bit. She has had nausea for years. When she eats she will feel nauseous very quickly but tries hard not to vomit. She does not eat large meals. She has had a 30 lbs weight loss over the past year. The epigastric pain starts in her esophagus and goes up to her jaw. It wakes her up at night sometimes. SHe has been on prescription and OTC mediations for heartburn and nausea and nothing works. EGD 10.09.22 Zenker's diverticulum. - Benign-appearing esophageal stenosis. Dilated. - Large hiatal hernia. - No gross lesions in the first portion of the duodenum. - No specimens collected. ROS Const Constitutional: Positive for fatigue, fever(s), weakness and weight change (weight loss) ENT ENT: Positive for difficulty swallowing Cardio Cardiology: Positive for leg pain with exertion Gastro GI: Positive for abdominal pain, bloating, change in bowel habits, heartburn, difficulty swallowing, excessive flatus and nausea/dyspepsia; No belching, change in stool character, coffee ground emesis, constipation, cramping, diarrhea, feeling full early, incontinent of stools, Vomiting blood/hematemesis, Blood in stool, loose stools, Black,tarry stools, pain with swallowing, vomiting or other Musc Musculoskeletal: Positive for abnormal gait, joint pain, joint swelling, sciatica and leg pain with exertion Skin Skin: Positive for itchy eyes; No yellowing of the eye Neuro Neurology: Positive for abnormal gait and weakness Psych Psychiatric: No anxiety, No depression and Positive for Temper Tantrums Endo Endocrine: Positive for fatigue and weight change (weight loss) Aller/Imm Allergy/Immunologic: Positive for itchy eyes Luis Daniel/Lymp Hematologic/Lymphatic: No easy bleeding or easy bruising Exam Const General: cooperative and comfortable Nutritional Appearance: average body habitus and well nourished [facility] Head: normal to inspection Ears: hearing grossly normal bilaterally Nose: external nose normal Face and sinus: normal facial exam Mouth: oral mucosae normal Throat: posterior oropharynx normal Eyes General: appearance normal, both eyes and all related structures Neck Neck: normal visual inspection Chest Chest palpation inspection: normal inspection of the chest Resp Effort Inspection: normal respiratory effort GI Inspection: normal to inspection Palpation: no hepatosplenomegaly Skin General: no rashes or lesions noted Neuro General: patient alert Extrem General: normal to inspection Psych Affect: normal affect Assessment and Plan Assessment and Plan (1) Abdominal pain: (2) Nausea: Status: Acute (3) Hiatal hernia with GERD: Status: Acute Plan: Pt is an 83 yo female here today for evaluation. She has had chronic nausea and epigastric pain for years now. In March 2023 she has procedure to fix a zenker diverticulum. Since then her swallowing has improved but she still has to eat slow. She did have an EGD with dilation in October [address] Matthew. She may need dilation again. She will be scheduled for this.She has nausea daily but does not vomit. She is very hungry but as soon as she eats she gets full and feels nauseous. It is worse in the evening. She has never had a GES. Her symptoms seem consisted for gastroparesis. I will order GES to rule out a motility issue with her stomach. -EGD with dilation -GES -f/u in 3 months Orders: Orders Gastric Emptying Study Today R11.0 - Nausea 03/08/24 1153 Cosigner Signature (if applicable): CC: LEAD PROGRAMMEROlvin Hunter; Jimenez Matthew DO [facility]igned[facility] Note ORIGINAL HISTORY: Pain COMPARISON: No FINDINGS: There is an arthroplasty in near anatomic alignment. There is no radiographic evidence of loosening or failure of hardware. There is soft tissue swelling, most prominently at the patella. There are vascular calcifications. IMPRESSION: Soft tissue swelling. 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 M06.9 Rheumatoid arthritis involving multiple sites, unspecified whether rheumatoid factor present (HCC) Comment: No ocular complications at this time. Monitor yearly. Z96.1 Pseudophakia of both eyes Comment: Posterior chamber intraocular lenses are well positioned and clear. H43.393 Vitreous floaters of both eyes Comment: Vitreal floaters stable both eyes. Retinas flat and intact with no apparent retinal tear or traction. Monitor yearly. H52.223 Regular astigmatism, bilateral Comment: Reported occasional ghosting likely due to uncorrected astigmatic refractive error. Patient tolerates for now and uses OTC readers for near tasks. I have confirmed and edited as necessary the relevant HPI, ophthalmic history, ROS, and the neuro exam findings as obtained by others. I have seen and examined Huyen Valerio. I have discussed the case and the management of this patient's care with the Resident/Fellow, if applicable. I also have reviewed and agree with the assessment and plan as stated above and agree withall of its relevant components. [facility]-2024 NoteHNO ID: [id number] Author: LAURE VARELA II, OD Service: ? 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 M06.9 Rheumatoid arthritis involving multiple sites, unspecified whether rheumatoid factor present (HCC) Comment: No ocular complications at this time. Monitor yearly. Z96.1 Pseudophakia of both eyes Comment: Posterior chamber intraocular lenses are well positioned and clear. H43.393 Vitreous floaters of both eyes Comment: Vitreal floaters stable both eyes. Retinas flat and intact with no apparent retinal tear or traction. Monitor yearly. H52.223 Regular astigmatism, bilateral Comment: Reported occasional ghosting likely due to uncorrected astigmatic refractive error. Patient tolerates for now and uses OTC readers for near tasks. I have confirmed and edited as necessary the relevant HPI, ophthalmic history, ROS, and the neuro exam findings as obtained by others. I have seen and examined Huyen Valerio. I have discussed the case and the management of this patient's care with the Resident/Fellow, if applicable. 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 M06.9 Rheumatoid arthritis involving multiple sites, unspecified whether rheumatoid factor present ([facility]) Comment: No ocular complications at this time. Monitor yearly. Z96.1 Pseudophakia of both eyes Comment: Posterior chamber intraocular lenses are well positioned and clear. H43.393 Vitreous floaters of both eyes Comment: Vitreal floaters stable both eyes. Retinas flat and intact with no apparent retinal tear or traction. Monitor yearly. H52.223 Regular astigmatism, bilateral Comment: Reported occasional ghosting likely due to uncorrected astigmatic refractive error. Patient tolerates for now and uses OTC readers for near tasks. I have confirmed and edited as necessary the relevant HPI, ophthalmic history, ROS, and the neuro exam findings as obtained by others. I have seen and examined Huyen Valerio. I have discussed the case and the management of this patient's care with the Resident/Fellow, if applicable. I also have reviewed and agree with the assessment and plan as stated above and agree withall of its relevant components. documented in this encounterChildren[facility]07-20-2023 Discharge summary Author Tommy Vazquez [facility] November 27, 2022 2:18pm Note Date/Time November 27, 2022 11:5 0am [facility] Medical Records Department [address] [place] [address] Emergency Department Summary 11/27/22 MR#: [id number] Acct: [id number] Name: HUYEN VALERIO I Rep #:[id number] : 1940 82 From: Tommy Vazquez MD PCP: KULDIP BarreraC Status:RE G ER Location: ED HPI History of Present Illness Chief Complaint: Back Detail of Chief Complaint: Not feeling well since November 24 Informant: patient and family Onset/Context/Timing Onset: Days Context: Sudden Onset Timing: Continuous and Waxes and wanes Quality: Sense of unwellness, frequency, shaking chills this morning Location: Generalized Current Severity: Mild Maximum Severity: Moderate Worsened by: Nothing Relieved by: Nothing Associated Symptoms Associated Symptoms: Nausea and vomiting x1 today Narrative Narrative: Patient is an 82-year-old woman with history of rheumatoid arthritis on immunosuppressive meds. Her last dose of methotrexate was 1 week ago. She oncewhen she received the other meds. She has not felt well since Thursday. She had trouble getting up out of bed. She had decreased p.o. intake and poor appetite. Patient states she felt worse on Thursday. She had increased urination startingThursday. She denies dysuria or hematuria. She states yesterday she felt a little better. This morning she felt cold and had shaking chills. She states she felt worse after she took a shower. She does endorse thirst anddry mouth as well as orthostatic symptoms. She was not aware that she had a temperature of 101.4. She does complain of vague frontal head discomfort. She also reports rhinorrhea that started this morning. She denies trouble with her ears, hearing or ringing or ears. She denies sore throat. She denies difficulty swallowing. She reported coughing slightly this morning. She denieschest discomfort. She denies shortness of breath. She denies abdominal pain. She had nausea with emesis x1 today. She denies diarrhea. She does have back pain which is worse on the right side. She has not noted a rash. She does complain of aches in her arms and legs. Patient had a total right hip arthroplasty performed in September by Dr. Preston. Shewas released out of the transitional care unit in October. Recent Illness/Hospitalization: Yes (Total hip arthroplasty on the right) [facility] Medical History Arthritis Back pain Cardiology follow-up encounter Closed head injury Easy bruising Fracture of hip, right, closed Gastric reflux History of hiatal hernia History of irregular heartbeat History of pain when walking History of steroid therapy Injury of back Irregular heart beat Kidney stones MVP (mitral valve prolapse) Normal stress echocardiogram Post-menopausal Premature atrial contraction Premature ventricular contraction Rheumatoid arthritis Sleep apnea Supraventricular tachycardia Wears contact lenses Wears glasses Home Medications methotrexate sodium (PF) 25 mg/mL injection solution 75 mg IM TH Check with primary doctor 11/29/13 [History Last Taken 09/16/21] prednisone 5 mg tablet 5 mg PO DAILY Check with primary doctor 11/29/13 [History Last Taken 07/02/21] alendronate 70 mg tablet (Fosamax) 70 mg PO QWEEK Check with primary doctor 11/10/18 [History Last Taken 10/01/22 12:05] folic acid 400 mcg tablet 0.8 mg PO DAILY@0800 Supplement 11/10/18 [History Last Taken Unknown] celecoxib 200 mg capsule 200 mg PO DAILY PRN Pain 12/12/20 [History Last Taken Unknown] multivitamin 3 tab PO DAILY Supplement 06/25/21 [History Last Taken Unknown] tofacitinib 5 mg tablet (Xeljanz) 5 mg PO BID Check with primary doctor 06/25/21[History Last Taken 09/16/21] buprenorphine 10 mcg/hour weekly transdermal patch (Butrans) 5 mcg topical QWEEKCheck with primary doctor 09/16/21 [History Last Taken 09/27/22] ascorbic acid (vitamin C) 500 mg capsule 500 mg PO DAILY Supplement 05/27/22 [History Last Taken Unknown] cholecalciferol (vitamin D3) 50 mcg (2,000 unit) capsule 50 mcg PO DAILY Supplement 05/27/22 [History Last Taken Unknown] acetaminophen 500 mg tablet 1,000 mg PO Q8 Pain 10/02/22 [History Last Taken Unknown] calcium carbonate 200 mg calcium (500 mg) chewable tablet 500 mg PO TIDCM Check with primary doctor 10/02/22 [History Last Taken Unknown] lansoprazole 30 mg capsule,delayed release (Prevacid) 30 mg PO DAILY Check with primary doctor 10/02/22 [History Last Taken Unknown] tramadol 50 mg tablet 50 mg PO Q8H PRN pain #3 tabs 10/02/22 [Rx Last Taken Unknown] buprenorphine 5 mcg/hour weekly transdermal patch (Butrans) 1 ea transdermal QWEEK #0 ea 10/13/22 [Rx Last Taken Unknown] tizanidine 2 mg tablet 2 mg PO Q8H PRN PRN muscle spasm 30 days #90 tabs 10/13/22 [Rx Last Taken Unknown] rivaroxaban 10 mg tablet (Xarelto) 10 mg PO DAILY #15 TABLETS 10/14/22 [Rx Last Taken Unknown] levofloxacin 500 mg tablet 500 mg PO DAILY #2 tabs 11/27/22 [Rx Last Taken Unknown] Allergy/AdvReac Type Severity Reaction Status Date / Time amoxicillin trihydrate Allergy Intermediate Rash Verified 11/27/22 11:22 [From Trimox] Penicillins Allergy Swelling Verified 11/27/22 11:22 Family History Father CAD (coronary artery disease) CVA (cerebral vascular accident) Hypertension Heart disease Brother CAD (coronary artery disease) Mother Osteoporosis Surgical History H/O total knee replacement History of cardiac radiofrequency ablation (~2000) History of incisional hernia repair History of removal of ovarian cyst History of right hip hemiarthroplasty Hx of cataract surgery Hx of hernia repair Hx of kyphoplasty Social History household members: none Smoking Status: Never smoker alcohol intake: never substance use type: does not use what type of physical activity do you participate in: none ROS ROS ED Constitutional Constitutional ED: Reports chills; Denies sweats or weight loss Eyes Eyes: Denies blurry vision, change in vision or diplopia ENT ENT ED: Denies ear pain, rhinorrhea or sore throat Cardiovascular Cardiovascular: Reports other Details: Orthostatic symptoms ; Denies chest pain, orthopnea, palpitations, paroxysmal nocturnal dyspnea or racing heartbeat Respiratory/Chest Respiratory/Chest: Reports cough; Denies dyspnea, dyspnea on exertion, orthopnea, paroxysmal nocturnal dyspnea or sputum Gastrointestinal Gastrointestinal: Reports nausea and vomiting; Denies abdominal pain, constipation, diarrhea or melena Genitourinary Genitourinary ED: Denies dysuria, hematuria or urinary frequency Musculoskeletal Musculoskeletal: Reports back pain; Denies arthralgias, myalgias or neck pain Integumentary Denies abscess Neurologic Neurologic: Reports headache(s) and weakness; Denies paresthesias Psychiatric Psychiatric: Denies anxiety or depression Endocrine Endocrinology: Denies cold intolerance or heat intolerance Hematologic/Lymphatic Hematologic/Lymphatic: Reports systems reviewed and no addt'l complaints, exceptas documented EXAM Physical Exam Const Vital Signs: 11/27/22 11:22 11/27/22 12:23 Temperature 101.4 F H Temperature Source Temporal Pulse Rate 100 Respiratory Rate 16 Blood Pressure 137/96 H Blood Pressure Mean 109 Pulse Ox 96 96 Oxygen Delivery Method Room Air Room Air Positive well nourished and well developed Constitutional Narrative: Patient does not appear well. General Appearance ED: well developed, NAD and pallor; Negative for cyanotic or diaphoretic HEENT Reports dry mucous membranes HEENT Narrative: Head is atraumatic normocephalic. Ears normal. Nares patent. Posterior pharynx out erythema or exudate. Uvula is midline. Deviation with protrusion. Mouth ED: Yes dry mucous membranes Mouth: dry mucous membranes Eyes PERRL and EOMs intact bilaterally General Eye ED: Negative for pale conjunctiva or scleral icterus Neck no lymphadenopathy, supple and no JVD Neck Narrative: He has been blind. There is no dysphonia. There is no stridor. Chest Wall inspection of chest normal and palpation of chest normal Resp normal respiratory effort and clear to auscultation bilaterally Cardio regular rate, regular rhythm, S1 normal heart sound, S2 normal heart sound and no murmurs GI normal to inspection, nondistended, normoactive bowel sounds, non-tender, non-distended and no masses; Negative for hepatosplenomegaly Auscultation: hypoactive bowel sounds Palpation: soft Back/Spine General Back: CVA tenderness right Thoracic Spine / Upper Back: Negative for thoracic spinal tenderness Lumbar Spine / Lower Back: Negative for lumbar spinal tenderness Extremity normal to inspection General Extremety ED: Negative for edema or tenderness General Extremity: Negative for edema Neuro oriented x3, CN's II-XII intact bilaterally and no sensory deficits noted Sensorium / Orientation: alert Psych mental status grossly normal Skin no rashes or lesions noted, no wounds and No skin turgor normal General Skin Exam: pallor; Negative for elasticity normal or jaundice MDM MDM MDM Narrative Medical decision making narrative: With patient complaining of shaking chills documented temperature of 101.4 urinary frequency and right CVA tenderness is concerned patient's origin for infection is urologic. Because of her reported allergies to penicillin or amoxicillin she was treated with levofloxacin. This will also cover pulmonary pathogens since she does report cough. Chest x-ray was obtained to evaluate forevidence of pneumonia. Sepsis order set was initiated. A 10 cc/kg bolus of normal saline was ordered especially since clinically she appears dehydrated. Appropriate blood work was obtained to assess for endorgan dysfunction. History & Record Review Additional record(s) reviewed:: Prior inpatient record (Records regarding right total hip arthroplasty.) Lab Data Attestation: I reviewed the patient's lab results. Lab results narrative: White count is normal with shift. Coags are doing. Comp metabolic panel reveals an elevated BUN to creatinine ratio 22:1 and glucose of 162 with a normal CO2 and anion gap. Labs: Laboratory Results - last 24 hr 11/27/22 11/27/22 11/27/22 11:57 12:20 12:45 WBC 10.2 RBC 4.13 L Hgb 12.3 Hct 38.4 MCV 93.0 MCH 29.8 MCHC 32.0 RDW Std Deviation 49.3 H RDW Coeff of Eusebio 14.6 Plt Count 262 MPV 11.4 Immature Gran % (Auto) 0.800 Neut % (Auto) 90.7 H Lymph % (Auto) 2.2 L Fleming % (Auto) 5.7 Eos % (Auto) 0.2 Baso % (Auto) 0.4 Absolute Neuts (auto) 9.3 H Absolute Lymphs (auto) 0.22 L Nucleated RBC % 0 Differential Comment COMMENT PT Cancelled 12.0 INR Cancelled 0.9 APTT Cancelled 28.0 Sodium 136 Potassium 3.9 Chloride 102 Carbon Dioxide 27.0 Anion Gap 7 BUN 18 Creatinine 0.81 Estim Creat Clear Calc 40.89 Est GFR (MDRD) Af Amer 87 Est GFR (MDRD) Non-Af 72 BUN/Creatinine Ratio 22.2 H Glucose 162 H Lactic Acid 1.7 Calcium 9.1 Total Bilirubin 0.80 AST 48 H ALT 21 Alkaline Phosphatase 194 H Total Protein 7.1 Albumin 3.3 Globulin 3.8 Albumin/Globulin Ratio 0.9 Urine Color Yellow Urine Clarity Clear Urine pH 5.0 Ur Specific Mooers 1.020 Urine Protein 30 H Urine Glucose (UA) Normal Urine Ketones 15 H Urine Occult Blood 25 H Urine Nitrite Negative Urine Bilirubin Negative Urine Urobilinogen 4 H Ur Leukocyte Esterase Negative Urine RBC 0-5 SEEN Urine WBC 0 SEEN Ur Squamous Epith Cells 0 SEEN Urine Bacteria 0 SEEN Urine Mucus 0 SEEN Rhythm Strip Rhythm Strip: Narrow complex tachycardia. There appears to be some type of heart block. Rate: 110 Ectopy: None EKG Initial EKG: Interpretation: Sinus Tachycardia (Rate is 106 with Mobitz type I second-degree heart block. QRS duration 76 ms. QT duration 386 ms. There is evidenceof low voltage. English is to the left as well. The EKG is not normal.) Differential Diagnosis Chest pain/SOB: pneumothorax Reason(s) pneumothorax less likely: Positive for bilateral breath sounds and COMMUNITY RECREATION PROGRAMMER withhout PTX, pneumonia Reason(s) pneumonia lesslikely: Positive for no infiltrate on CXR and aortic dissection Management Discussion w/another healthcare provider: Other (Her radiation control health physicist office apparently is closed today. The radiation control health physicist Dr. Leiva was paged through service. [facility] has attempted to contact patient's nurse practitioner as well.) Treatment and Re-Evaluation :: Since patient is on immunosuppressive meds with fever prescribed short course oflevofloxacin. If cultures come back positive will need additional doses of levofloxacin otherwise she can discontinue. Discharge Plan Triage Chief Complaint: Back ED Provider: Tommy Vazquez Dx/Rx/DC Orders Clinical Impression: Rheumatoid arthritis, Acute dehydration, Frequency of urination, Fever and chills Instructions: ED FUO Adult Prescriptions: New levofloxacin [levofloxacin] 500 mg tablet 500 mg PO DAILY Qty: 2 0RF Rx Instructions: Take first dose tomorrow November 28 No Action alendronate [Fosamax] 70 mg tablet 70 mg PO QWEEK ascorbic acid (vitamin C) 500 mg capsule 500 mg PO DAILY cholecalciferol (vitamin D3) 50 mcg (2,000 unit) capsule 50 mcg PO DAILY prednisone 5 MG tablet 5 mg PO DAILY methotrexate sodium (PF) 25 MG/ML solution 75 mg IM TH Hold Instructions: Resume on 10/15/21. Patient Comments: HOLD WEEK OF SURGERY-PER DR. WILKS folic acid 400 mcg tablet 0.8 mg PO DAILY@0800 celecoxib 200 mg capsule 200 mg PO DAILY PRN (Reason: Pain) multivitamin Tablet 3 tab PO DAILY Xeljanz 5 mg tablet 5 mg PO BID Hold Instructions: Resume on 10/09/22. buprenorphine [Butrans] 10 mcg/hour patch weekly 5 mcg topical QWEEK Patient Comments: Thursday tramadol 50 mg tablet 50 mg PO Q8H PRN (Reason: pain) Qty: 3 0RF acetaminophen 500 mg tablet 1,000 mg PO Q8 lansoprazole [Prevacid] 30 mg capsule,delayed release(DR/EC) 30 mg PO DAILY calcium carbonate 200 mg calcium (500 mg) tablet,chewable 500 mg PO TIDCM tizanidine 2 mg Tablet 2 mg PO Q8H PRN PRN (Reason: muscle spasm) 30 Days Qty: 90 0RF buprenorphine [Butrans] 5 mcg/hour Patch Weekly 1 ea transdermal QWEEK Qty: 0 0RF Xarelto 10 mg tablet 10 mg PO DAILY Qty: 15 0RF Primary Care Provider: Milagros Hunter NP Referrals: Katarina Wilks MD [Med Staff - Volunteer Manager] - As soon as possible Milagros Hunter NP, LEAD PROGRAMMER-C [Primary Care Provider] - 2 Days Activity Restrictions/Additional Instructions: Contact Dr. Wilks regarding your next dose of medication to treat your rheumatoid arthritis since you have a fever. Take antibiotics starting tomorrow. If your cultures are positive you will be contacted and will have DrEsequiel Prescribe appropriate duration of medication. If your blood cultures are positive you will be asked to return. Disposition Disposition: Home, Self Care What to do if you have Problems For any increased pain, shortness of breath, bleeding, nausea or vomiting, chestpain, or any unexpected problems, contact your Primary Care Provider. Call [facility] ([phone]) or report to the closest Emergency Room. Call 911 if necessary. 11/27/22 1418 <Electronically signed by Tommy Vazquez MD> Kristinaigner Signature (if applicable): CC: YENIFER Hunter ~ Signed [facility] Work Phone: 1(157) 225-876106-01-2023 History and physical note Author Jimenez Friend [facility] October 09, 2022 12:42pm Note Date/Time October 09, 2022 12:42 pm [facility] Medical Records Department [address] [place] [address] History & Physical Exam 10/09/22 1242 MR#: [id number] Acct: [id number] Name: HUYEN VALERIO I Rep #:[id number] : 1940 82 From: Jimenez Matthew DO PCP: Milagros Hunter, LEAD PROGRAMMER-C Status:RE G [facility] Location: [place] [address] History and Physical Date of Admission: 10/09/22 HUYEN VALERIO, is a 82 F with a history of rheumatoid arthritis, Sjogren's syndrome and possibly scleroderma and she is on methotrexate, prednisone, Xeljanz, folic acid and Celebrex by her radiation control health physicist Dr. Church.? Bilateral hand, wrist and small joints deformity.?history of palpitations, PACs/PVCs, SVT status post EPS/RFA in 2000, and mitral valve prolapse.? I was asked to see her after she underwent a swallowing test and exhibited esophageal dysphagia and oropharyngeal dysphagia with regurgitation and double swallowing.? She says that she has had trouble swallowing for the last 10 years.? She was diagnosed with a Zenker's diverticulum multiple years ago.? She says it has been really bad regarding her swallowing solid foods including pillsand liquids over the last 6 months. [facility] Medical History?(Updated 10/07/22 @ 17:[address] Gaona Friend, ) Arthritis Back pain Cardiology follow-up encounter Easy bruising Gastric reflux History of hiatal hernia History of irregular heartbeat History of pain when walking History of steroid therapy Injury of back Irregular heart beat Kidney stones MVP (mitral valve prolapse) Normal stress echocardiogram Post-menopausal Premature atrial contraction Premature ventricular contraction Rheumatoid arthritis Sleep apnea Supraventricular tachycardia Wears contact lenses Wears glasses Home Medications methotrexate sodium (PF) 25 mg/mL injection solution 75 mg IM TH Check with primary doctor 11/29/13 [History Last Taken 09/16/21] prednisone 5 mg tablet 5 mg PO DAILY Check with primary doctor 11/29/13 [History Last Taken 07/02/21] alendronate 70 mg tablet (Fosamax) 70 mg PO QWEEK Check with primary doctor 11/10/18 [History Last Taken 10/01/22 12:05] folic acid 400 mcg tablet 0.8 mg PO DAILY@0800 Supplement 11/10/18 [History Last Taken Unknown] celecoxib 200 mg capsule 200 mg PO DAILY PRN Pain 12/12/20 [History Last Taken Unknown] multivitamin 3 tab PO DAILY Supplement 06/25/21 [History Last Taken Unknown] tofacitinib 5 mg tablet (Xeljanz) 5 mg PO BID Check with primary doctor 06/25/21 [History Last Taken 09/16/21] buprenorphine 10 mcg/hour weekly transdermal patch (Butrans) 5 mcg topical QWEEK Check with primary doctor 09/16/21 [History Last Taken 09/27/22] ascorbic acid (vitamin C) 500 mg capsule 500 mg PO DAILY Supplement 05/27/22 [History Last Taken Unknown] cholecalciferol (vitamin D3) 50 mcg (2,000 unit) capsule 50 mcg PO DAILY Supplem ent 05/27/22 [History Last Taken Unknown] acetaminophen 500 mg tablet 1,000 mg PO Q8 Pain 10/02/22 [History Last Taken Unknown] calcium carbonate 200 mg calcium (500 mg) chewable tablet 500 mg PO TIDCM Check with primary doctor 10/02/22 [History Last Taken Unknown] enoxaparin 30 mg/0.3 mL subcutaneous syringe 30 mg subcut DAILY Anticoagulant 10/02/22 [History Last Taken Unknown] lansoprazole 30 mg capsule,delayed release (Prevacid) 30 mg PO DAILY Check with primary doctor 10/02/22 [History Last Taken Unknown] tamsulosin 0.4 mg capsule 0.4 mg PO DAILY@1730 Bladder 10/02/22 [History Last Ta gorge Unknown] tizanidine 2 mg tablet 2 mg PO Q8H PRN PRN muscle spasm #0 tabs 10/02/22 [Rx Last Taken Unknown] tramadol 50 mg tablet 50 mg PO Q8H PRN pain #3 tabs 10/02/22 [Rx Last Taken Unknown] Allergy/AdvReac Type Severity Reaction Status Date / Time amoxicillin trihydrate Allergy Intermediate Rash Verified 09/29/22 14:48 [From Trimox] ? Penicillins Allergy ? Swelling Verified 09/29/22 14:49 Family History? Father CAD (coronary artery disease) CVA (cerebral vascular accident) Hypertension Heart diseaseBrother CAD (coronary artery disease)Mother?? Osteoporosis Surgical History?(Updated 10/02/22 @ 20:[address] Adalberto Willingham MD) H/O total knee replacement History of cardiac radiofrequency ablation (~2000) History of incisional hernia repair History of removal of ovarian cyst History of right hip hemiarthroplasty Hx of cataract surgery Hx of hernia repair Hx of kyphoplasty Social History?(Updated 10/02/22 @ 20:[address] Adalberto Willingham MD) household members:? none Smoking Status:? Never smoker alcohol intake:? never substance use type:? does not use what type of physical activity do you participate in:? none ROS Constitutional Constitutional: Denies chills, fever(s) or weight gain ENT HEENT: Denies headache(s), nasal congestion or nasal discharge Cardiovascular Cardiovascular: Denies chest pain or palpitations Respiratory/Chest Respiratory/Chest: Denies cough, excessive phlegm production or shortness of breath with exertion Gastrointestinal Gastrointestinal: Denies abdominal pain, nausea or vomiting Genitourinary Genitourinary: Denies dysuria Musculoskeletal Musculoskeletal: Denies joint pain or joint swelling Integumentary Integumentary: Denies rash or wounds Neurologic Neurologic: Denies focal weakness, numbness or tingling Psychiatric Psychiatric: Denies anxiety, auditory hallucinations, depression, homicidal ideation or suicidal ideation Physical Exam Const alert General Appearance: cooperative HEENT normocephalic Eyes PERRL and EOMs intact bilaterally Neck supple, no JVD and no carotid bruits Resp normal respiratory effort, normal air movement and clear to auscultation bilaterally Cardio regular rate and regular rhythm GI normal to inspection, nondistended, normoactive bowel sounds, non-tender and non-distended Extremity normal capillary refill General Extremity: Negative for edema Skin no rashes or lesions noted General Skin Exam: no breakdown Psych affect normal Appearance: appropriate Medical Records Data Medical Nutrition Assessment Dietitian: Malnutrition Criteria Met ? Start:? 10/03/22 14:22 Freq:? Status: Active? Protocol:?Document ? ? 10/03/22 14:22? SLA? (Rec: 10/03/22 14:23? SLA? [id number]) ?Nutrition ?? ? Malnutrition ? ? ? Evidence of Malnutrition Exists? Yes ? ? ? Malnutrition (severe): ? Chronic ? ? ? Evidenced By ? Suboptimal Energy Intake ( ? Severe),Weight Loss (Severe), ? Physical Changes (Moderate) ?? ? Clinical Problem ? ? ? Chronic Disease or Condition Related Malnutrition ? Etiology? severe related to inadequate ? energy intake ? Signs/Symptoms? as evidenced by 22.6% ? unintended wt loss and po ? intake meeting <50% of ? estimated nutritional needs x ? 3 years; NFPA indicates ? moderate fat/muscle loss ? throughout body. ? Status? Active Problem ?? ? Recommendation ? ? ? Dietitian Recommendations/Changes? Continue liberal regular diet ? d/t signs/symptoms of ? malnutrition. ? Try chocolate CIB w/ dinner ? tonight - if res likes, then ? change to CIB w/ meals tid and ? d/[facility] Ensure [facility] ? Rec consider appetite ? stimulant to help encourage ? increased po intake at meals. Lab / Micro Data Result Diagrams: 10/03/22 05:17? 10/03/22 05:17? Assessment & Plan Assessment/Plan (1) Dysphagia: PLAN: The differential diagnosis for progressive dysphagia does include Sjogren syndrome, cricopharyngeal achalasia in the setting of a Zenker's diverticulum, esophageal dysmotility disorder, Alexa esophagitis secondary to prednisone, methotrexate and Xeljanz, esophageal ring or eosinophilic esophagitis with multiple esophageal rings.? She should undergo an upper endoscopy to evaluate upper GI tract.? If there is no clear abnormality other than the diverticulum then she may need a esophageal manometry.? We also discussed possibility of doing Botox therapy and she has a scheduled appointment to see ENT on 10/20/2022. I have examined the patient and the H&P has been reviewed. There are no clinicalchanges since date of exam. 10/09/22 1242 <Electronically signed by Jimenez Matthew DO> Cosigner Signature (if applicable): CC: YENIFER Hunter; Jimenez Matthew DO~ Signed [facility] Work Phone: [phone]) 280-107806-01-2023 Procedure [facility] 10-09-2022 Procedure [facility] Evaluation + Plan noteExtracted from: Title:Clinical Document Author:ZULEMA MOLINA Date:05/19/22 [facility] ADMISSION HISTORY AN D PHYSICIAL CHIEF COMPLAINT: HISTORY OF PRESENT ILLNESS: REVIEW OF SYSTEMS: ACTIVE PROBLEMS: (6) Dysphagia ([id number]) Elevated liver enzymes (2128154815) Hiatal hernia with GERD (11cm 11/29/13) (2271589344) Osteoporosis (103396069) Rheumatoid arthritis (514083494) Stomach burning (532659729) MEDICATIONS: Active Inpt Meds: None Active PRN Meds: None One Time Meds: None Active IV Meds: Lactated Ringers Infusion 1,000 mL (LR 1,000 mL) Start: 05/19/22 7:38:00 EST, Rate: 50 mL/hr, 05/19/22 7:38:00 EST ALLERGIES: (1) penicillin FAMILY HISTORY: SOCIAL HISTORY: PHYSICAL EXAM: VITALS: PtaejzHmdqCFRnuqbELMtM9GGI8SeceWg(kg) 05/19 07:5836.2--827512ZY08/09 50.0 24 Hr Tmax: 36.2 at 05/19 07:58 36 Hr Tmax: 36.2 at 05/19 07:58 Vital Signs are the last 5 in the past 48 hours. Weights display the last 5 within 7 days. Initial Wt: 05/19 50.0 kg 110 lb Current Wt: 05/19 50.0 kg 110 lb GENERAL: HEENT: CARDIOVASCULAR: RESPIRATORY: ABDOMEN: EXREMETIES: NEUROLOGICAL: PSYCHIATRIC: LABS: No 36hr Lab Data DIAGNOSTICS: IMPRESSION: PLAN: History and Physical Update I have examined the patient; reviewed the H&P and there are no changes to the H&P unless noted below. Future Appointments Appointment Date:06/20/2022 11:30:00 AM Scheduled Provider:MILAGROS HUNTER Location:[facility] Appointment Type:PC OV Future Scheduled Tests Radiology* MA Mammo Screening Bilateral w/ Gabriel 05/16/22 * BD Bone Density DEXA Axial Skeleton 03/21/22 [facility] 01-09-2023 Hospital Discharge instructions Patient Education 05/19/2022 10:17:31 Moderate Conscious Sedation, Adult, Care After Moderate Conscious Sedation, Adult, Care After These instructions provide you with information about caring for yourself after your procedure. Your health care provider may also give you more specific instructions. Your treatment has been plannedaccording to current medical practices, but problems sometimes occur. Call your health care provider if you have any problems or questions after your procedure. What can I expect after the procedure? After your procedure, it is common: To feel sleepy for several hours. To feel clumsy and have poor balance for several hours. To have poor judgment for several hours. To vomit if you eat too soon. Follow these instructions at home: For at least 24 hours after the procedure: Do not: ?Participate in activities where you could fall or become injured. ?Drive. ?Use heavy machinery. ?Drink alcohol. ?Take sleeping pills or medicines that cause drowsiness. ?Make important decisions or sign legal documents. ?Take care of children on your own. Rest. Eating and drinking Follow the diet recommended by your health care provider. If you vomit: ?Drink water, juice, or soup when you can drink without vomiting. ?Make sure you have little or no nausea before eating solid foods. General instructions Have a responsible adult stay with you until you are awake and alert. Take mzkn-cya-sswwdfv and prescription medicines only as told by your health care provider. If you smoke, do not smoke without supervision. Keep all follow-up visits as told by your health care provider. This is important. Contact a health care provider if: You keep feeling nauseous or you keep vomiting. You feel light-headed. You develop a rash. You have a fever. Get help right away if: You have trouble breathing. This information is not intended to replace advice given to you by your health care provider. Make sure you discuss any questions you have with your health care provider. Document Released: 02/15/2014 Document Revised: 04/09/2018 Document Reviewed: 08/16/2016 [employer] Patient Education 2020 [employer] 05/19/2022 10:17:21 Esophagogastroduodenoscopy, Care After (74609) Esophagogastroduodenoscopy, Care After Refer to this sheet in the next few weeks. These instructions provide you with information about caring for yourself after your procedure. Your health care provider may also give you more specific instructions. Your treatment has been planned according to current medical practices, but problems sometimes occur. Call your health care provider if you have any problems or questions after your procedure. What can I expect after the procedure? After the procedure, it is common to have: A sore throat. Nausea. Bloating. Dizziness. Fatigue. Follow these instructions at home: Do not eat or drink anything until the numbing medicine (local anesthetic) has worn off and your gag reflex has returned. You will know that the local anesthetic has worn off when you can swallow comfortably. Do not drive for 24 hours if you received a medicine to help you relax (sedative). If your health care provider took a tissue sample for testing during the procedure, make sure to get your test results. This is your responsibility. Ask your health care provider or the department performing the test when your results will be ready. Keep all follow-up visits as told by your health care provider. This is important. Contact a health care provider if: You cannot stop coughing. You are not urinating. You are urinating less than usual. Get help right away if: You have trouble swallowing. You cannot eat or drink. You have throat or chest pain that gets worse. You are dizzy or light-headed. You faint. You have nausea or vomiting. You have chills. You have a fever. You have severe abdominal pain. You have black, tarry, or bloody stools. This information is not intended to replace advice given to you by your health care provider. Make sure you discuss any questions you have with your health care provider. Document Released: 04/13/2013 Document Revised: 10/02/2016 Document Reviewed: 03/20/2016 [employer] Interactive Patient Education 2019 [employer] Follow Up Care 05/15/2022 08:21:03 With:ZULEMA MOLINA MD Address: [address] [phone] When: Unknown Comments:BIOPSY TAKEN, PLEASE CALL FOR RESULT AND ANY FOLLOW UP [facility] 01-09-2023 Summary of episode note Discharge Instructions Thank you for allowing [facility] to assist you with your healthcare needs. The following is importantdischarge information regarding your hospital visit. Your Care Team MILAGROS HUNTER What to do next Scheduled Follow-Up Appointments Appointment Type When With Where Contact InformationPC OV 06/20/2022 11:30 AM MILAGROS RAO [facility] [address] [place] [address] Follow Up Appointments Follow Up with ZULEMA MOLINA MD When Why: BIOPSY TAKEN, PLEASE CALL FOR RESULT AND ANY FOLLOW UP Where: [address] [facility] [address] [place] [address]- [phone] Allergies penicillin (Hives) Medications Please ask your primary doctor or pharmacist before taking any other medication not listed, including over the counter drugs, herbal medications, vitamins and or supplements as they may interact withyour home medications. What How Much When Instructions Last Dose Unchanged ascorbic acid (Vitamin C 25 mg oral tablet, chewable) 1 tab(s) Chewed Once a day Unchanged buprenorphine (buprenorphine 5 mcg/ hr transdermal film, extended release) 1 patch(es) Transdermal Every week Unchanged cholecalciferol (Vitamin D (3) 45 units oral capsule) Unchanged famotidine (famotidine 20 mg oral tablet) 1 tab(s) by mouth Daily at bedtime Unchanged folic acid Once a day 800 mg daily Unchanged methotrexate (methotrexate 25 mg/ mL injectable solution) 25 Milligram Subcutaneous Every week Unchanged multivitamin (Multivitamin) 1 tab(s) by mouth Every day Unchanged predniSONE (predniSONE 5 mg oral delayed release tablet) 1 tab(s) by mouth Once a day Unchanged tofacitinib (Xeljanz 5 mg oral tablet) 1 tab(s) by mouth Two (2) times a day Unchanged traMADol (traMADol 50 mg oral tablet) 1 tab(s) by mouth Every 12 hours as needed for for pain Please take this list to your next doctor s visit. Bring all medications you take, including over the counter medications, herbals and other supplements with you to your doctor s visit. Patients and families are reminded to discard old lists and to update any records with all medication providers or retail pharmacies. Education Materials Moderate Conscious Sedation, Adult, Care After These instructions provide you with information about caring for yourself after your procedure. Your health care provider may also give you more specific instructions. Your treatment has been plannedaccording to current medical practices, but problems sometimes occur. Call your health care provider if you have any problems or questions after your procedure. What can I expect after the procedure? After your procedure, it is common: To feel sleepy for several hours. To feel clumsy and have poor balance for several hours. To have poor judgment for several hours. To vomit if you eat too soon. Follow these instructions at home: For at least 24 hours after the procedure: Do not: ? Participate in activities where you could fall or become injured. ? Drive. ? Use heavy machinery. ? Drink alcohol. ? Take sleeping pills or medicines that cause drowsiness. ? Make important decisions or sign legal documents. ? Take care of children on your own. Rest. Eating and drinking Follow the diet recommended by your health care provider. If you vomit: ? Drink water, juice, or soup when you can drink without vomiting. ? Make sure you have little or no nausea before eating solid foods. General instructions Have a responsible adult stay with you until you are awake and alert. Take owcx-eqj-nuoyowb and prescription medicines only as told by your health care provider. If you smoke, do not smoke without supervision. Keep all follow-up visits as told by your health care provider. This is important. Contact a health care provider if: You keep feeling nauseous or you keep vomiting. You feel light-headed. You develop a rash. You have a fever. Get help right away if: You have trouble breathing. This information is not intended to replace advice given to you by your health care provider. Make sure you discuss any questions you have with your health care provider. Document Released: 02/15/2014 Document Revised: 04/09/2018 Document Reviewed: 08/16/2016 [employer] Patient Education 2020 [employer] Esophagogastroduodenoscopy, Care After Refer to this sheet in the next few weeks. These instructions provide you with information about caring for yourself after your procedure. Your health care provider may also give you more specific instructions. Your treatment has been planned according to current medical practices, but problems sometimes occur. Call your health care provider if you have any problems or questions after your procedure. What can I expect after the procedure? After the procedure, it is common to have: A sore throat. Nausea. Bloating. Dizziness. Fatigue. Follow these instructions at home: Do not eat or drink anything until the numbing medicine (local anesthetic) has worn off and your gag reflex has returned. You will know that the local anesthetic has worn off when you can swallow comfortably. Do not drive for 24 hours if you received a medicine to help you relax (sedative). If your health care provider took a tissue sample for testing during the procedure, make sure to get your test results. This is your responsibility. Ask your health care provider or the department performing the test when your results will be ready. Keep all follow-up visits as told by your health care provider. This is important. Contact a health care provider if: You cannot stop coughing. You are not urinating. You are urinating less than usual. Get help right away if: You have trouble swallowing. You cannot eat or drink. You have throat or chest pain that gets worse. You are dizzy or light-headed. You faint. You have nausea or vomiting. You have chills. You have a fever. You have severe abdominal pain. You have black, tarry, or bloody stools. This information is not intended to replace advice given to you by your health care provider. Make sure you discuss any questions you have with your health care provider. Document Released: 04/13/2013 Document Revised: 10/02/2016 Document Reviewed: 03/20/2016 [employer] Interactive Patient Education 2019 [employer] Additional Information VACCINATE! IT SAVES LIVES! Members of the community who have not yet received the COVID-19 vaccine and would like to receive it can visit one of [facility] vaccine clinics. There are many vaccine clinic locations within the [facility]. For locations and available times, please visit [email or web address] It is important to note that some COVID mobile vaccine clinics are held outdoors and may be canceled in rainy or stormy conditions. To learn more about pediatric vaccinations (ages 5-11), we invite you to visit the [facility] webpage. [email or web address]/[email or web address]-[email or web address]-[email or web address] stions.htmlTo learn more about the COVID-19 vaccine, we invite you to visit the [employer] website for a list of frequently asked questions. [email or web address] [facility] [facility] Patient Portal Access Instructions: Stay connected with your healthcare team and access your personal medical information anytime with the [facility] Patient Portal.If you would like a full copy of your medical records, please contact the [facility] Medical Records Department, Thursday through Thursday between 8a.m. and 4:30p.m. Please follow the directions below to access the portal: 1.Access the email account you provided upon registration to the [facility].2.Look for an invitation email from [facility].3.Open the email and access the invitation link: Accept Invitation to [facility] [facility]4.Fill in the required suggs to create your account. Sign into [email or web address] with your username and password that you created in the above steps to stay up to date. You can then view a summary of results, a summary of your visits, and the ability to download your summaries to your computer or send the information securely to a physician. Remember that your healthcare information is confidential, so carefully consider who you will allow to register on the [facility] Patient Portal for access to your information. You can also access the [facility] Patient Portal on the [employer] marti. Simply click on Health Records under Daily Deals for [employer] and then click on the [facility] logo. HOW TO SAFELY DISPOSE OF PRESCRIPTION MEDICATIONS Please use one of the following methods to safely dispose of your unused medications. 1.Use a drug disposal kit: the drug disposal pouch allows you to safely discard your old and unuseddrugs. Ask your nurse to give you one when you are discharged.2.Visit a local take-back location: Many local pharmacies and police departments have programs that collect old and unwanted prescriptiondrugs. Call your local pharmacy or go to http://bit.ly/7K8Ei9q to find one close to you.3.Make use of household items: Use cat litter or old coffee grounds to dispose medications if other options arenot available. Mix your drugs with these household products, seal them in an airtight container andthrow it into the garbage. Call [facility]: [phone] to be sure your drugs can be disposed of in this way. Some medicines may require a different approach.4.Never flush your medications down the toilet. IF YOU HAVE BEEN PRESCRIBED AN OPIOID FOR PAIN If you have been prescribed an opioid (such as hydrocodone, oxycodone or morphine), it is critical to understand the possible side effects and risks of opioid pain medications. Even when taken as directed, opioids can have several side effects including: Tolerance, meaning you might need to take more of a medication for the same pain relief. Nausea, vomiting and/or constipation. Sleepiness, dizziness, dry mouth, confusion, depression or itching. Physical dependence, meaning you have withdrawal symptoms when a medication is stopped, can develop within a few days. KNOW YOUR RESPONSIBILITIES It is important to know exactly how much and how often to take the opioid pain medications you are prescribed. Never take opioids in higher amounts or more often than prescribed. Do not combine opioids with alcohol or other drugs that cause drowsiness, such as benzodiazepines, also known as benzos, including diazepam and alprazolam, muscle relaxants or sleep aids. Never sell or share prescription opioids. This is illegal. Store opioids in a secure place and out of reach of others (including children, family, friends and visitors). The last page of this document has been signed and retained as a CHART COPY. Signatures Patient Education Materials Moderate Conscious Sedation, Adult, Care After Esophagogastroduodenoscopy, Care After (55558) Medication Leaflets My discharge plan and instructions have been reviewed and explained to me and I,HUYEN VALERIO I understand my current condition and have read and understand these discharge instructions. I have received a written copy of the plan/instructions. If I have questions, I am aware that I should contact my doctor. 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 Respiratory function: lungs are clear to auscultation. Respiratory support: none. CV function: Normal rate. Cardiovascular support: none. Pain. Nausea status: denies nausea. Postoperative hydration status: within normal limits. Digitally Signed by MADHAVI RUBY on 05/19/2022 10:09 AM [facility]01-09-2023 Note [facility] ADMISSION HISTORY AND PHYSICIAL CHIEF COMPLAINT: HISTORY OF PRESENT ILLNESS: REVIEW OF SYSTEMS: ACTIVE PROBLEMS: (6) Dysphagia (68676537) Elevated liver enzymes (7033492074) Hiatal hernia with GERD (11cm 11/29/13) (2329856312) Osteoporosis (233785826) Rheumatoid arthritis (051868293) Stomach burning (543892553) MEDICATIONS: Active Inpt Meds: None Active PRN Meds: None One Time Meds: None Active IV Meds: Lactated Ringers Infusion 1,000 mL (LR 1,000 mL) Start: 05/19/22 7:38:00 EST, Rate: 50 mL/hr, 05/19/22 7:38:00 EST ALLERGIES: (1) penicillin FAMILY HISTORY: SOCIAL HISTORY: PHYSICAL EXAM: VITALS: EqwjfyRmqxDITpoohKUTnX8YEM5YidxEg(kg) 05/19 07:5836.2--204759LW72/09 50.0 24 Hr Tmax: 36.2 at 05/19 07:58 36 Hr Tmax: 36.2 at 05/19 07:58 Vital Signs are the last 5 in the past 48 hours. Weights display the last 5 within 7 days. Initial Wt: 05/19 50.0 kg 110 lb Current Wt: 05/19 50.0 kg 110 lb GENERAL: HEENT: CARDIOVASCULAR: RESPIRATORY: ABDOMEN: EXREMETIES: NEUROLOGICAL: PSYCHIATRIC: LABS: No 36hr Lab Data DIAGNOSTICS: IMPRESSION: PLAN: History and Physical Update I have examined the patient; reviewed the H&P and there are no changes to the H&P unless noted below. Digitally Signed by ZULEMA MOLINA MD on 05/19/2022 09:57 AM [facility]01-09-2023 Anesthesiology Consult note Patient: HUYEN VALERIO I Age: 81 years Sex: Female : 1940 Associated Diagnoses: None Author: MADHAVI RUBY APRN-BUS INSPECTOR Preoperative Information Time of last food or liquid consumption: 05/19/2022 00:00:00 Anesthesia history Patient's history: negative. Family's history: negative. Review of Systems Ear/Nose/Mouth/Throat: Negative. Respiratory: Negative. Cardiovascular: Negative. Gastrointestinal: Reflux, dysphagia. Genitourinary: Negative. Endocrine: Negative. Musculoskeletal: arthritis. Integumentary: Negative. Neurologic: Negative. Health Status Allergies: Allergic Reactions (Selected) Severity Not Documented Penicillin- Hives., Allergies (1) ActiveReaction penicillinHives Current medications: (Selected) Inpatient Medications Ordered LR 1,000 mL: 50 mL/hr, Intravenous Prescriptions Prescribed famotidine 20 mg oral tablet: 20 mg, 1 tab(s), Oral, qHS, 60 tab(s), 0 Refill(s) Documented Medications Documented Multivitamin: 1 tab(s), Oral, Daily, 0 Refill(s) Vitamin C 25 mg oral tablet, chewable: 25 mg, 1 tab(s), Chewed, qDay, 30 tab(s), 0 Refill(s) Vitamin D (3) 45 units oral capsule: 0 Refill(s) Xeljanz 5 mg oral tablet: 5 mg, 1 tab(s), Oral, BID, 60 tab(s), 0 Refill(s) buprenorphine 5 mcg/hr transdermal film, extended release: 1 patch(es), Transdermal, qWeek, 4 patch(es), 0 Refill(s) folic acid: qDay, 800 mg daily, 0 Refill(s) methotrexate 25 mg/mL injectable solution: 25 mg, Subcutaneous, qWeek, 0 Refill(s) predniSONE 5 mg oral delayed release tablet: 5 mg, 1 tab(s), Oral, qDay, 30 tab(s), 0 Refill(s) traMADol 50 mg oral tablet: 50 mg, 1 tab(s), Oral, q12h, PRN: for pain, 30 tab(s), 0 Refill(s), Medications (1) Active Scheduled: (0) Continuous: (1) Lactated Ringers Infusion 1,000 mL 1,000 mL, Intravenous, 50 mL/hr PRN: (0) Problem list: Medical Dysphagia / SNOMED CT 44142351 / Confirmed Elevated liver enzymes / SNOMED CT 7256485077 / Confirmed Hiatal hernia with GERD (11cm 11/29/13) / SNOMED CT 3443240886 / Confirmed Osteoporosis / SNOMED CT 972521315 / Confirmed Rheumatoid arthritis / SNOMED CT 118835414 / Confirmed Stomach burning / SNOMED CT 894253446 / Confirmed, Active Problems (6) Dysphagia Elevated liver enzymes Hiatal hernia with GERD (11cm 11/29/13) Osteoporosis Rheumatoid arthritis Stomach burning Histories Past Medical History: No active or resolved past medical history items have been selected or recorded. Family History: No family history items have been selected or recorded. Procedure history: Arthroplasty, knee, condyle and plateau; medial AND lateral compartments with or without patella resurfacing (total knee arthroplasty) (83611). Comments: 05/19/2022 7:53 EST - JOSELO Sapp BILATERAL Esophageal hiatus hernia repair (23840573). Catheter ablation of arrhythmogenic focus (9430750359). Kyphoplasty of fracture of thoracic spine using computed tomography (CT) guidance (9544050435). Social History Social & Psychosocial Habits Alcohol 12/18/2021 Use: Never Tobacco 12/18/2021 Tobacco Use: Never (less than 100 in l . Physical Examination Vital Signs 05/19/2022 7:58 EST Temperature Temporal Artery 36.2 DegC Apical Heart Rate 71 bpm Respiratory Rate 15 br/min Systolic Blood Pressure Non-Invasive 138 mmHg Diastolic Blood Pressure Non-Invasive 81 mmHg Blood Pressure Location Left arm Vital Signs(last 24 hrs) Last Charted Resp Rate 15 br/min (MAY 19 07:58) IZA606 mmHg (MAY 19 07:58) DBP81 mmHg (MAY 19 07:58) Measurements from flowsheet : Measurements 05/19/2022 7:58 EST Height 155 cm Admission Weight 50.0 kg Weight Method Stated [place] Body Weight 47.85 kg Pain assessment: Pain Assessment 05/19/2022 7:58 EST Primary Pain Intensity 0 Pain Scale Type 0-10 Pain scale . General: Alert and oriented. Airway: Normal temporomandibular joint mobility. Mallampati classification: II (soft palate, fauces, uvula visible). Head: Normocephalic. Dentition Evaluation: Own teeth. Neck: Supple. Respiratory: Lungs are clear to auscultation. Cardiovascular: Normal rate. Heart Sounds: Normal. Gastrointestinal: Soft. Musculoskeletal Normal range of motion. Integumentary: Intact. Neurologic: Alert, Oriented. Review / Management Results review: No qualifying data available , Lab results 05/19/2022 9:48 EST SN - PP - Body Position Lateral Right Side-up Standard Intra-op 05/19/2022 9:45 EST SN - Proc - Actual Procedure ESOPHAGOGASTRODUODENOSCOPY 05/19/2022 9:45 EST SN - GCD - Post-operative Diagnosis WEIGHT LOSS, ABNORMAL CT SN - GCD - Case Level OPD Level 3 05/19/2022 9:15 EST SN - CAt - Case Attendee SN - CAt - Case Attendee SN - CAt - Case Attendee SN - CAt - Case Attendee SN - CAt - Case Attendee SN - CAt - Case Attendee SN - CAt - Case Attendee SN - CAt - Case Attendee SN - CAt - Role Performed Primary Surgeon SN - CAt - Role Performed Broadcast News Producer 1 SN - CAt - Role Performed BUS INSPECTOR SN - CAt - Role Performed Peoplesoft Analyst 05/19/2022 7:58 EST Designated Person #1 We May Share JAY HERNANDEZ [phone] Designated Person #1 Relationship Daughter Privacy Restrictions Requested None Height 155 cm Admission Weight 50.0 kg Weight Method Stated [place] Body Weight 47.85 kg Temperature Temporal Artery 36.2 DegC Apical Heart Rate 71 bpm Respiratory Rate 15 br/min Systolic Blood Pressure Non-Invasive 138 mmHg Diastolic Blood Pressure Non-Invasive 81 mmHg Blood Pressure Location Left arm Primary Pain Intensity 0 Pain Scale Type 0-10 Pain scale Monitor Alarms On and Limits Checked Heart Rhythm Regular Oxygen Therapy Room air Oxygen Saturation 97 % Abdomen Description Non-distended Status N/A Skin Temperature Warm Skin Description R[place] Skin Integrity Intact Skin Moisture General Dry Antecubital Right 22 gauge Peripheral IV Activity: Insert new site Peripheral IV Site Condition: No complications Peripheral IV Equipment: Extension set Peripheral IV Number of Attempts: 1 Characteristics of Speech Clear Level of Consciousness Alert Strength All Extremities Weak Tone All Extremities Flaccid Sensation All Extremities Intact Affect/Behavior Appropriate Orientation Oriented x 4 Sleep Apnea Snore No Sleep Apnea Tired No Sleep Apnea Obstruction No Sleep Apnea Pressure No Sleep Apnea BMI No Sleep Apnea Age Yes Sleep Apnea Neck No Sleep Apnea Gender No Sleep Apnea Score 1 High Risk for Sleep Apnea No Diagnosed With Sleep Apnea Yes Advanced Directives No - refuses information Infectious Disease Symptoms Patient states no symptoms Infectious Disease Recent Exposure No Alcohol and Drug Use No Employee of Institutional Living No Health Care Employee No History of Exposure to TB No History of Positive Chest X-Ray for TB No History of Positive TB Skin Test No Homeless No Known Immunosuppression No Recent Immigrant No Resident of Institutional Living No Bloody Sputum No Fatigue No Fever No Loss of Appetite No Night Sweats No Persistent Cough > 3 Weeks No Weight Loss No Barriers to Learning None evident Teaching Method Explanation Preferred Written Language [place] Leonean Preferred Spoken Language [place] Information Given by Patient Patient's Current Physicians Patient's Current Physicians Standard Safety ID band on, Allergy Band on, Call device within reach, Bed in low position, Wheels locked Prev Test Positive/Diagnosis w/COVID-19 Yes Previous COVID-19 Positive Date APR 27 Current Quarantine/Isolated any Illness No Any Contact with Sick Animals/Birds No Traveled Anywhere in Last 30 Days No Lost Weight Unintentionally Recently Yes, 34 lb or more weight loss Eat Poorly Due to Decreased Appetite Yes Total MST Score 5 N/A Anesthesia/Transfusions Prior anesthesia Admission Note-Nursing Same Day Patient History . Assessment and Plan [place] [employer] Anesthesiologists (ASA) physical status classification: Class II. Anesthetic Preoperative Plan Anesthetic technique: MAC. Postoperative pain management: Per surgeon. Informed consent: signed by patient. Digitally Signed by MADHAVI RUBY on 05/19/2022 09:51 AM [facility]08-01-2016 History of Past illness Narrative* Problem Noted Date Diagnosed Date Resolved Date Astigmatism of left eye 12/10/201501/09 Pseudophakia, right eye 12/07/201501/10 Regular astigmatism 11/26/2015 01/26/20 16 Combined form of senile cataract of left eye 6 01/31/2016 Dry eye syndrome 05/26/2015 10/16/2015 documented as of this encounter (statuses as of 08/21/2023) [facility] N[facility]* Chief Complaint 1 Y FU PREV PFM HIP Reason for Visit Pre-op evaluation MVP (mitral valve prolapse) Premature atrial contraction Premature ventricular contraction History of cardiac radiofrequency ablation Supraventricular tachycardia [facility] Work Phone: Discharge summary Author Cyril Burden [facility] June 30, 2023 10:21am Note Date/Time June 30, 2023 9:51am [facility] Medical Records Department [address] [place] [address] Emergency Department Summary 06/30/23 MR#: [id number] Acct: [id number] Name: HUYEN VALERIO I Rep #:[id number] : 1940 82 From: Cyril Burden MD PCP: Milagros Hunter NP-C Status:MO E ER Location: ED HPI History of Present Illness HPI Narrative: 82-year-old female fell last September had a right hip replacement done by Dr. Amin orthopedics. She has been doing well. She is in the last 2 weeks she has had atraumatic right hip pain. Worse with walking. No fever. No redness or swelling. Chief Complaint: Lower Extremity Injury Informant: patient Occured/Mechanism Mechanism/Context: No injury and No blunt trauma Onset/Context/Timing Onset: Weeks Context: Gradual Onset Timing: Continuous Quality of Pain: Dull and Aching Current Severity: Mild Maximum Severity: Mild Associated Symptoms Associated Symptoms: Negative for Parasthesia, Weakness or Loss of Funtion Narrative Narrative: 82-year-old with prior right hip replacement May almost a year ago. Complainingof right hip pain for the last 2 weeks. No fall injury or trauma. No fever or redness or swelling. Prior similar symptoms: No Recent Illness/Hospitalization: No PFSH PFSH Medical History Arthritis Back pain Back pain Cardiology follow-up encounter Closed head injury Easy bruising Fracture of hip, right, closed Gastric reflux History of hiatal hernia History of irregular heartbeat History of pain when walking History of steroid therapy Injury of back Irregular heart beat Kidney stones MVP (mitral valve prolapse) Normal stress echocardiogram Post-menopausal Premature atrial contraction Premature ventricular contraction Rheumatoid arthritis Sleep apnea Supraventricular tachycardia Wears contact lenses Wears glasses Zenkers diverticulum Home Medications methotrexate sodium (PF) 25 mg/mL injection solution 75 mg IM TH Check with primary doctor 11/29/13 [History Last Taken 11/20/22] prednisone 5 mg tablet 5 mg PO DAILY Check with primary doctor 11/29/13 [History Last Taken 11/25/22] alendronate 70 mg tablet (Fosamax) 70 mg PO QWEEK Check with primary doctor 11/10/18 [History Last Taken 11/26/22] folic acid 400 mcg tablet 0.8 mg PO DAILY@0800 Supplement 11/10/18 [History Last Taken Unknown] multivitamin 3 tab PO DAILY Supplement 06/25/21 [History Last Taken 11/24/22] tofacitinib 5 mg tablet (Xeljanz) 5 mg PO BID Check with primary doctor 06/25/21[History Last Taken 11/27/22] ascorbic acid (vitamin C) 500 mg capsule 500 mg PO DAILY Supplement 05/27/22 [History Last Taken 11/24/22] acetaminophen 500 mg tablet 1,000 mg PO Q8 Pain 10/02/22 [History Last Taken 11/27/22] lansoprazole 30 mg capsule,delayed release (Prevacid) 30 mg PO DAILY Check with primary doctor 10/02/22 [History Last Taken 11/27/22] tramadol 50 mg tablet 50 mg PO Q8H PRN pain #3 tabs 10/02/22 [Rx Last Taken 11/27/22] buprenorphine HCl 75 mcg buccal film (Belbuca) 75 mcg buccal Q12H 03/17/23 [History Last Taken Unknown] cholecalciferol (vitamin D3) 50 mcg (2,000 unit) capsule 125 mcg PO DAILY Supplement 03/17/23 [History Last Taken Unknown] zinc sulfate 66 mg tablet (Zinc-15) 66 mg PO DAILY 03/17/23 [History Last Taken Unknown] Allergy/AdvReac Type Severity Reaction Status Date / Time amoxicillin trihydrate Allergy Intermediate Rash Verified 06/30/23 09:34 [From Trimox] Penicillins Allergy Swelling Verified 06/30/23 09:34 Family History Father CAD (coronary artery disease) CVA (cerebral vascular accident) Hypertension Heart disease Brother CAD (coronary artery disease) Mother Osteoporosis Surgical History H/O total knee replacement History of cardiac radiofrequency ablation (~2000) History of incisional hernia repair History of removal of ovarian cyst History of right hip hemiarthroplasty Hx of cataract surgery Hx of hernia repair Hx of kyphoplasty Social History household members: none Smoking Status: Never smoker alcohol intake: never substance use type: does not use what type of physical activity do you participate in: none ROS ROS ED ROS Narrative Denies recent illness. Review of Systems ROS Unobtainable: Denies due to encephalopathy Constitutional Constitutional ED: Denies chills or fever(s) Eyes Eyes: Denies blurry vision ENT ENT ED: Denies ear pain Cardiovascular Cardiovascular: Denies chest pain Respiratory/Chest Respiratory/Chest: Denies cough or dyspnea Gastrointestinal Gastrointestinal: Denies abdominal pain Genitourinary Genitourinary ED: Denies dysuria or hematuria Musculoskeletal Musculoskeletal: Denies arthralgias Integumentary Denies abscess Neurologic Neurologic: Denies headache(s) Psychiatric Psychiatric: Denies anxiety or depression Endocrine Endocrinology: Denies polydipsia, polyphagia or polyuria Hematologic/Lymphatic Hematologic/Lymphatic: Denies easy bleeding or easy bruising Allergic/Immunologic Allergic/Immunologic ED: Denies mouth swelling, tongue swelling or urticaria EXAM Physical Exam Narrative Exam Narrative: Well-appearing 82-year-old female. Vital signs are stable afebrile. No acute distress. H EENT exam unremarkable. Neck nontender. Lungs clear to auscultation. Heart regular rhythm rate about 90 no murmur. Chest wall and ribs nontender. Abdomen soft nontender. Back nontender. Moving all 4 extremities. The right hip has mild tenderness. There is no redness, warmth orswelling. There is no bruising or signs of trauma. There is no gross bony deformity or any signs of obvious dislocation. She is able to flex and extend the right hip with mild discomfort. She has bilateral knee replacements she is able to flex and extend both knees and able to dorsi plantarflex. Both right and left lower extremities neurovascularly intact without edema. Neurologicallyshe is awake and alert with no focal motor deficits. Const Vital Signs: 06/30/23 09:35 Temperature 97.2 F L Temperature Source Temporal Pulse Rate 94 Respiratory Rate 14 Blood Pressure 123/75 H Blood Pressure Mean 91 Pulse Ox 97 Oxygen Delivery Method Room Air Positive well nourished and well developed; Negative for obese, cachectic, contractures or unkempt General Appearance ED: well developed and NAD; Negative for unkempt, cachectic or contractures Nutritional Appearance: Negative for cachectic or obese HEENT Reports moist mucous membranes normocephalic and atraumatic; Negative for trauma or tenderness Eyes PERRL General Eye ED: Negative for other Neck full ROM and supple Thyroid: Negative for tender or other Lymph Lymphatic: Negative for other Chest Wall inspection of chest normal and palpation of chest normal Chest: Negative for other Resp normal respiratory effort, no retractions and clear to auscultation bilaterally Effort and Inspection: Negative for pain with movement Auscultation: Negative for rales, rhonchi or wheezes Cardio regular rate, regular rhythm, S1 normal heart sound, S2 normal heart sound and no murmurs Rate: Negative for bradycardia or tachycardic Rhythm: Negative for abnormal rhythm Bruits: Negative for other GI non-tender, non-distended and no masses Inspection: Negative for abdominal distention Auscultation: normoactive bowel sounds Palpation: Negative for guarding Bladder / Kidney Exam: No other Back/Spine no CVA tenderness General Back: Negative for CVA tenderness Cervical Spine: Negative for cervical spine tenderness Thoracic Spine / Upper Back: Negative for thoracic spinal tenderness Lumbar Spine / Lower Back: Negative for lumbar spinal tenderness Extremity normal to inspection and full ROM Extremity Narrative: Mild tenderness right hip. No gross bony deformity. No redness or warmth. No swelling. Able to do flexion extension of the right hip with some discomfort. No shortening or rotation. General Extremety ED: Negative for cyanosis or edema General Extremity: Negative for cyanosis or edema Neuro CN's II-XII intact bilaterally and moves all extremities Sensorium / Orientation: alert, oriented to person, oriented to place and oriented to time; Negative for orientation impaired, confused, lethargic or stuporous Motor Exam: strength 5/5 throughout Psych mental status grossly normal Appearance: Negative for unkempt Speech: No other Mood & Affect: Negative for anxious Skin no wounds Lesions: no lesions Rashes: no rashes Trauma: Negative for abrasion, laceration or puncture MDM MDM MDM Narrative Medical decision making narrative: 82-year-old female prior right hip replacement after a fall and fracture last September. Complaining of pain for the last 2 weeks worse with ambulation. Exam other than tender there is no signs of infection or trauma. X-ray of the pelvisand right hip being obtained. Repeat exam patient doing well. We went over x-ray results. I reexamined her hip no change. Again no redness, warmth, swelling or bruising. Normal range ofmotion. Patient be discharged home. She is on chronic pain medication she seespain management. She will call make an appointment with Dr. Preston day reevaluation of her hip and the prosthesis. History & Record Review Discussion w/independent historian: Patient Additional record(s) reviewed:: Prior inpatient record, Prior outpatient record,Prior ED visit and Prior labs Radiography Diagnostic Testing: Right hip x-ray and pelvis 3 views interpreted by myself shows no acute abnormality. No fracture or dislocation. Prosthesis appears to be in good shape. I went over the x-rays with the patient and family. Discharge Plan Triage Chief Complaint: Lower Extremity Injury ED Provider: Cyril Burden Dx/Rx/DC Orders Clinical Impression: Acute pain of right hip, History of hip fracture Instructions: ED Pain, Acute, Uncertain Cause Prescriptions: No Action alendronate [Fosamax] 70 mg tablet 70 mg PO QWEEK ascorbic acid (vitamin C) 500 mg capsule 500 mg PO DAILY cholecalciferol (vitamin D3) 50 mcg (2,000 unit) capsule 125 mcg PO DAILY Zinc-15 66 mg tablet 66 mg PO DAILY buprenorphine HCl [Belbuca] 75 mcg film 75 mcg buccal Q12H prednisone 5 MG tablet 5 mg PO DAILY methotrexate sodium (PF) 25 MG/ML solution 75 mg IM TH Hold Instructions: Resume on 10/15/21. Patient Comments: HOLD WEEK OF SURGERY-PER DR. WILKS folic acid 400 mcg tablet 0.8 mg PO DAILY@0800 multivitamin Tablet 3 tab PO DAILY Xeljanz 5 mg tablet 5 mg PO BID Hold Instructions: Resume on 12/03/22. tramadol 50 mg tablet 50 mg PO Q8H PRN (Reason: pain) Qty: 3 0RF acetaminophen 500 mg tablet 1,000 mg PO Q8 lansoprazole [Prevacid] 30 mg capsule,delayed release(DR/EC) 30 mg PO DAILY Primary Care Provider: Milagros Hunter NP Referrals: Constantine Preston DO [Med Staff - Active Staff] - As soon as possible Milagros Hunter LEAD PROGRAMMER, LEAD PROGRAMMER-C [Primary Care Provider] - Activity Restrictions/Additional Instructions: Ice to your hip. Your hip exam looks good. The hip prosthesis looks good. There is no fracture seen or dislocation. Usual pain medications at home. Call and follow-up with Dr. Preston for further evaluation. Disposition Disposition: Home, Self Care What to do if you have Problems For any increased pain, shortness of breath, bleeding, nausea or vomiting, chestpain, or any unexpected problems, contact your Primary Care Provider. Call [facility] ([phone]) or report to the closest Emergency Room. Call 911 if necessary. 06/30/23 1021 <Electronically signed by Cyril Burden MD> Kristinaign Signature (if applicable): CC: LEAD PROGRAMMER-C Milagros Hunter ~ Signed [facility] Work Phone: Evaluation + Plan note Future Appointments Appointment Date:04/15/2024 11:30:00 AM Scheduled Provider:MILAGROS HUNTER APRN-SPENT GRAIN DRYER Location:[facility] Appointment Type:PC OV Future Scheduled Tests Radiology* XR Knee 3 Views Right 02/17/24 * XR Ribs 2 Views Left 10/19/23 [facility] Evaluation note* Diagnosis Onset Date Resolution Status MVP (mitral valve prolapse) acute Ovarian cyst, right acute Premature atrial contraction acute Premature ventricular contraction acute History of cardiac radiofrequency ablation resolved Supraventricular tachycardia resolved MVP (mitral valve prolapse) acute Ovarian cyst, right acute Premature atrial contraction acute Premature ventricular contraction acute History of cardiac radiofrequency ablation resolved Supraventricular tachycardia resolved Ovarian cyst, right acute Abdominal hernia acute Incisional hernia acute [facility] Work Phone: Evaluation note* Diagnosis Onset Date Resolution Status MVP (mitral valve prolapse) acute Ovarian cyst, right acute Premature atrial contraction acute Premature ventricular contraction acute History of cardiac radiofrequency ablation resolved Supraventricular tachycardia resolved Ovarian cyst, right acute Incisional hernia acute Incisional hernia acute S/P hernia repair acute [facility] Work Phone: Evaluation note* Diagnosis Onset Date Resolution Status Incisional hernia acute S/P hernia repair acute Incisional hernia acute S/P hernia repair acute MVP (mitral valve prolapse) chronic Premature atrial contraction chronic Premature ventricular contraction chronic History of cardiac radiofrequency ablation resolved Supraventricular tachycardia resolved [facility] Work Phone: Evaluation noteNo assessment information available [facility] Work Phone: Evaluation note* Diagnosis Onset Date Resolution Status Degeneration of uterine fibroid acute [facility] Work Phone: Evaluation note* Diagnosis Onset Date Resolution Status Closed head injury acute Diarrhea acute Dysuria acute Fall acute Fracture of hip, right, closed acute Hyperbilirubinemia acute Hypophosphatemia acute Leukocytosis acute Debility acute Dysphagia acute Fracture of hip, right, closed acute GERD (gastroesophageal reflux disease) acute History of right hip hemiarthroplasty acute Hypophosphatemia acute Osteoarthritis acute Osteoporosis acute Rheumatoid arthritis acute Chronic diarrhea chronic [facility] Work Phone: Evaluation note* Diagnosis Onset Date Resolution Status Diarrhea resolved Dysuria resolved Fall resolved Hyperbilirubinemia resolved Hypophosphatemia resolved Leukocytosis resolved Debility acute GERD (gastroesophageal reflux disease) acute History of right hip hemiarthroplasty acute Osteoarthritis acute Osteoporosis acute Rheumatoid arthritis acute Chronic diarrhea chronic Dysphagia resolved Hypophosphatemia resolved [facility] Work Phone: Evaluation note* Diagnosis Onset Date Resolution Status Diarrhea resolved Dysuria resolved Fall resolved Hyperbilirubinemia resolved Hypophosphatemia resolved Leukocytosis resolved Debility acute GERD (gastroesophageal reflux disease) acute History of right hip hemiarthroplasty acute Osteoarthritis acute Osteoporosis acute Rheumatoid arthritis acute Chronic diarrhea chronic Dysphagia resolved Hypophosphatemia resolved Back pain acute Fever acute [facility] Work Phone: Evaluation note* Diagnosis Onset Date Resolution Status Pre-op evaluation acute MVP (mitral valve prolapse) chronic Premature atrial contraction chronic Premature ventricular contraction chronic History of cardiac radiofrequency ablation resolved Supraventricular tachycardia resolved [facility] Work Phone: Evaluation note* Diagnosis Keratitis sicca, bilateral (HCC)- Primary Other forms of keratitis Rheumatoid arthritis involving multiple sites, unspecified whether rheumatoid factor present (HCC) Pseudophakia of both eyes Lens replaced by other means Vitreous floaters of both eyes Regular astigmatism, bilateral documented in this encounter [facility] course Narrative No data available for this section [facility] Hospital Discharge instructions Additional Instructions Normal appendix on CT. uterine fibroids noted. Labs were normal. Urine culture sent will be contacted if you need antibiotics Since you are not having any symptoms of urine infection. Tylenol as needed. Follow-up with Dr. Vickers.[facility] Work Phone: Hospital Discharge instructions Additional Instructions Contact Dr. Wilks regarding your next dose of medication to treat your rheumatoid arthritis since you have a fever. Take antibiotics starting tomorrow. If your cultures are positive you will be contacted and will have DrEsequiel Prescribe appropriate duration of medication. If your blood cultures are positive you will be asked to return.[facility] Work Phone: Hospital Discharge instructions Additional Instructions Ice to your hip. Your hip exam looks good. The hip prosthesis looks good. There is no fracture seen or dislocation. Usual pain medications at home. Call and follow-up with Dr. Preston for further evaluation.[facility] Work Phone: Hospital Discharge instructions No data available for this section [facility] Progress note No data available for this section [facility] Reason for referral (narrative)No reason for referral information availableW[facility] Work Phone: Chief Complaint and Reason for Visit Chief Complaint review US results DIAGNOSTIC LAP, RT SALPING OOPH DIAGNOSTIC LAP, RT SALPING OOPH DIAGNOSTIC LAP, RT SALPING OOPH 2 wk diag. lap RSO bump on incision site from surgery in JUN ABDOMINAL HERNIA INCISIONAL HERNIA Reason for Visit MVP (mitral valve pr olapse) Ovarian cyst, right Premature atrial contraction Premature ventricular contraction History of cardiac radiofrequency ablation Supraventricular tachycardia MVP (mitral valve prolapse) Ovarian cyst, right Premature atrial contraction Premature ventricular contraction History of cardiac radiofrequency ablation Supraventricular tachycardia Ovarian cyst, right Abdominal hernia Incisional hernia Chief Complaint review US results DIAGNOSTIC LAP, RT SALPING OOPH DIAGNOSTIC LAP, RT SALPING OOPH DIAGNOSTIC LAP, RT SALPING OOPH 2 wk diag. lap RSO bump on incision site from surgery in J[place] ABDOMINAL HERNIA INCISIONAL HERNIA INCISIONAL HERNIA REPAIR INCISIONAL HERNIA REPAIR Reason for Visit MVP (mitral valve pr olapse) Ovarian cyst, right Premature atrial contraction Premature ventricular contraction History of cardiac radiofrequency ablation Supraventricular tachycardia MVP (mitral valve prolapse) Ovarian cyst, right Premature atrial contraction Premature ventricular contraction History of cardiac radiofrequency ablation Supraventricular tachycardia Ovarian cyst, right Abdominal hernia Incisional hernia Chief Complaint DIAGNOSTIC LAP, RT S ALPING OOPH DIAGNOSTIC LAP, RT SALPING OOPH DIAGNOSTIC LAP, RT SALPING OOPH 2 wk diag. lap RSO bump on incision site from surgery in [place]UN ABDOMINAL HERNIA INCISIONAL HERNIA INCISIONAL HERNIA REPAIR INCISIONAL HERNIA REPAIR INCISIONAL HERNIA REPAIR HERNIA 10/01 arm Reason for Visit MVP (mitral valve pr olapse) Ovarian cyst, right Premature atrial contraction Premature ventricular contraction History of cardiac radiofrequency ablation Supraventricular tachycardia Ovarian cyst, right Incisional hernia Incisional hernia S/P hernia repair Chief Complaint HERNIA 10/01 arm HERNIA 10/01 1 y fu Reason for Visit Incisional hernia S/P hernia repair Incisional hernia S/P hernia repair MVP (mitral valve prolapse) Premature atrial contraction Premature ventricular contraction History of cardiac radiofrequency ablation Supraventricular tachycardia Chief Complaint abd pain Chief Complaint abd pain abd pain Chief Complaint abd pain abd pain [facility] ED f/u for fibroids OSTEO Reason for Visit Degeneration of uter ine fibroid Chief Complaint abd pain abd pain [facility] ED f/u for fibroids OSTEO SCREENING Reason for Visit Degeneration of uter ine fibroid Chief Complaint [facility] ED f/u for fibro ids OSTEO SCREENING Opioid dependence, uncomplicated Reason for Visit Degeneration of uter ine fibroid Chief Complaint SCREENING Opioid dependence, uncomplicated RIGHT FEMUR NECK FRACTURE RIGHT FEMUR NECK FRACTURE RIGHT FEMUR NECK FRACTURE RIGHT FEMUR NECK FRACTURE RIGHT FEMUR NECK FRACTURE RIGHT FEMORAL HIP FRACTURE RIGHT FEMORAL HIP FRACTURE Reason for Visit Closed head injury Diarrhea Dysuria Fall Fracture of hip, right, closed Hyperbilirubinemia Hypophosphatemia Leukocytosis Debility Dysphagia Fracture of hip, right, closed GERD (gastroesophageal reflux disease) History of right hip hemiarthroplasty Hypophosphatemia Osteoarthritis Osteoporosis Rheumatoid arthritis Chronic diarrhea Chief Complaint Opioid dependence, u ncomplicated RIGHT FEMUR NECK FRACTURE RIGHT FEMUR NECK FRACTURE RIGHT FEMUR NECK FRACTURE RIGHT FEMUR NECK FRACTURE RIGHT FEMUR NECK FRACTURE RIGHT FEMORAL HIP FRACTURE RIGHT FEMORAL HIP FRACTURE back Reason for Visit Diarrhea Dysuria Fall Hyperbilirubinemia Hypophosphatemia Leukocytosis Debility GERD (gastroesophageal reflux disease) History of right hip hemiarthroplasty Osteoarthritis Osteoporosis Rheumatoid arthritis Chronic diarrhea Dysphagia Hypophosphatemia Chief Complaint Opioid dependence, u ncomplicated RIGHT FEMUR NECK FRACTURE RIGHT FEMUR NECK FRACTURE RIGHT FEMUR NECK FRACTURE RIGHT FEMUR NECK FRACTURE RIGHT FEMUR NECK FRACTURE RIGHT FEMORAL HIP FRACTURE RIGHT FEMORAL HIP FRACTURE back WEAKNESS Reason for Visit Diarrhea Dysuria Fall Hyperbilirubinemia Hypophosphatemia Leukocytosis Debility GERD (gastroesophageal reflux disease) History of right hip hemiarthroplasty Osteoarthritis Osteoporosis Rheumatoid arthritis Chronic diarrhea Dysphagia Hypophosphatemia Back pain Fever Chief Complaint HIP Chief Complaint Admit Date FOLLOW UP FROM SCOPE March 29, 2024 1:49pm NAUSEA April 19, 2024 1:03pm Test Result June 28, 2024 9:15am COMPRESSION FX July 05, 2024 12:26pm Reason for Visit Admit Date Hiatal hernia with GERD March 29, 2 024 1:49pm Nausea March 29, 2024 1:49pm Hiatal hernia with GERD June 28 2 025 9:15am Nausea June 28, 2024 9:15am Chief Complaint Admit Date Test Result June 28, 2024 9:15am COMPRESSION FX July 05, 2024 12:26pm NECK PAIN September 15, 2024 2:34pm Reason for Visit Admit Date Hiatal hernia with GERD June 28 2 025 9:15am Nausea June 28, 2024 9:15am Chief Complaint Admit Date Test Result June 28, 2024 9:15am COMPRESSION FX July 05, 2024 12:26pm NECK PAIN September 15, 2024 2:34pm SCREENING October 04, 2024 9:51a m Family History No Family History Records Found Relationship Condition Age at Onset Recorded Date/T kvng father Coronary artery disease Unknown Cerebrovascular accident (CVA) Unknown Hypertension Unknown Cardiac disease Unknown brother Coronary artery disease Unknown mother Osteoporosis Unknown Advance Directives No Advanced Directives Records Found Advance Directive Response Recorded Date/ Time Living Will Yes June 25, 022 3:53pm Power of Repeat Chief Yes June 25, 2021 3:53pm Advance Directive Response Recorded Date/ Time Name of Medical Power of Repeat Chief DAUGHTER June 25, 2021 3:53pm Living Will No September 26, 2021 2 :11pm Power of Repeat Chief No September 26, 2021 2:11pm Advance Directive Response Recorded Date/ Time Name of Medical Power of Repeat Chief DAUGHTER June 25, 2021 3:53pm Living Will No October 18, 2021 5:32pm Power of Repeat Chief No October 18 5:32pm Advance Directive Response Recorded Date/ Time Living Will No October 18, 2021 5:32pm Power of Repeat Chief No October 18 5:32pm Advance Directive Response Recorded Date/ Time Living Will No May 04 022 12:59pm Power of Repeat Chief No May 04, 2022 12:59pm Advance Directive Response Recorded Date/ Time Living Will No May 11 3 11:06am Power of Repeat Chief No May 11, 2 023 11:06am Advance Directive Response Recorded Date/ Time Living Will No May 11 3 12:06pm Power of Repeat Chief No May 11, 2 023 12:06pm Advance Directive Response Recorded Date/ Time Living Will No October 08, 2022 3 :50pm Power of Repeat Chief No October 08, 2022 3:50pm Advance Directive Response Recorded Date/ Time Living Will No November 27, 2022 2:43pm Power of Repeat Chief No November 27 2:43pm Advance Directive Response Recorded Date/ Time Living Will No November 27, 2022 10:03pm Power of Repeat Chief No November 27 3 10:03pm Advance Directive Response Recorded Date/ Time Living Will No June 30 024 9:41am Power of Repeat Chief No June 30, 2023 9:41am Advance Directive Response Recorded Date/ Time Living Will No June 30 10:41am Power of Repeat Chief No June 30, 2023 10:41am Advance Directive Response Recorded Date/ Time Living Will Yes March 07 8:47am Power of Repeat Chief Yes March 07, 2024 8:47am Living Will No October 13, 2023 3 :23pm Power of Repeat Chief No October 13, 2023 3:23pm Summary Purpose Additional Source Comments Goals (unrecognized section and content) Goals may be documented in a n alternate sectionGoals may be documented in an alternate sectionGoals may be documented in an alternate sectionGoals may be documented in an alternate sectionGoals may be documented in an alternate sectionGoals may be documented in an alternate section No data available for this sectionGoals may be documented in an alternate sectionGoals may be documented in an alternate sectionGoals may be documented in an alternate sectionGoals may be documented in an alternate sectionGoals may be documented in an alternate section No data available for this sectionGoals may be documented in an alternate sectionGoals may be documented in an alternate sectionGoals may be documented in an alternate section Care Team (unrecognized sect ion and content) Care Team Personnel Name: MILAGROS HUNTER APRN-SPENT GRAIN DRYER Position: P4 Advanced Practice Nurse Member Role: Primary Care Physician Address: Address: [address] Care Team Related Persons Name: MARY DOUGLAS INFORMATION SOURCE (unrecogn ized section and content) DATE CREATED AUTHOR 05/28/2022 [facility]) DATE CREATED AUTHOR AUTHOR'S ORGANIZ ATION 04/02/2023 [facility] DATE CREATED AUTHOR AUTHOR'S ORGANIZ ATION 08/29/2023 [facility] DATE CREATED AUTHOR AUTHOR'S ORGANIZ ATION 10/14/2023 [facility] DATE CREATED AUTHOR AUTHOR'S ORGANIZ ATION 10/21/2023 [facility] DATE CREATED AUTHOR AUTHOR'S ORGANIZ ATION 02/19/2024 [facility] DATE CREATED AUTHOR AUTHOR'S ORGANIZ ATION 05/29/2024 [facility] DATE CREATED AUTHOR AUTHOR'S ORGANIZ ATION 08/21/2024 [facility] DATE CREATED AUTHOR AUTHOR'S ORGANIZ ATION [facility] Care Teams (unrecognized sec tion and content) Team Status: Active Member Role Status Dates Kiya NELSON, PA Family Provider Active Milagros Hunter LEAD PROGRAMMER, LEAD PROGRAMMER-C Primary Care Provider Activ e Team Status: Inactive Member Role Status Dates Milagros Hunter LEAD PROGRAMMER, LEAD PROGRAMMER-C Primary Care Provider, Refe rring Provider Active Jacquie Cruz LEAD PROGRAMMER, LEAD PROGRAMMER-C Attending Provider Active Team Status: Inactive Member Role Status Dates Milagros Hunter LEAD PROGRAMMER, LEAD PROGRAMMER-C Primary Care Provider, Atte nding Provider Active Team Status: Inactive Member Role Status Dates Milagros Hunter LEAD PROGRAMMER, LEAD PROGRAMMER-C Primary Care Provider Activ e Dr. Jackson Manning , DO Attending Provider, Emergency Provide r Active Team Status: Inactive Member Role Status Dates Milagros Hunter LEAD PROGRAMMER, LEAD PROGRAMMER-C Primary Care Provider Activ e Dr. Ross Adler , Attending Provider, Emergency Pro vider Active Team Status: Inactive Member Role Status Dates Milagros Hunter LEAD PROGRAMMER, LEAD PROGRAMMER-C Primary Care Provider Activ e Dr. Mylene Hoskins MD Attending Provider, Referring Pr ovider Active Team Status: Active Member Role Status Dates Milagros Hunter LEAD PROGRAMMER, LEAD PROGRAMMER-C Primary Care Provider Activ e Dr. Nilda Cole MD Emergency Provider Active Dr. Ever Hummel MD Admit Provider, A ttending Provider, Other Provider Active Team Status: Active Member Role Status Dates Milagros Hunter NP, LEAD PROGRAMMER-C Primary Care Provider Activ e Dr. Nilda Cole MD Emergency Provider Active Dr. Ever Hummel MD Admit Provider, Other Provider Active Dr. Alfred Knutson MD Other Provider Active Dr. Josephine Watson DO Attending Provider, Other Provide r Active Team Status: Active Member Role Status Dates Milagros Hunter LEAD PROGRAMMER, LEAD PROGRAMMER-C Primary Care Provider Activ e Dr. Nilda Cole MD Emergency Provider Active Dr. Ever Hummel MD Admit Provider, Other Provider Active Dr. Josephine Watson DO Attending Provider, Other Provide r Active Dr. Alfred Knutson MD Other Provider Active Team Status: Active Member Role Status Dates Milagros Hunter LEAD PROGRAMMER, LEAD PROGRAMMER-C Primary Care Provider Activ e Dr. Adalberto Willingham MD Admit Provider, Other Provider A ctive Dr. Michelle Manley , Other Provider Active Dr. Jimenez Matthew , DO Attending Provider Active Team Status: Active Member Role Status Dates Milagros Hunter LEAD PROGRAMMER, LEAD PROGRAMMER-C Primary Care Provider, Refe rring Provider Active Dr. Jimenez Matthew , Attending Provider, Other Prov ider Active Team Status: Inactive Member Role Status Dates Milagros Hunter NP, LEAD PROGRAMMER-C Primary Care Provider Activ e Dr. Nilda Cole MD Emergency Provider Active Dr. Ever Hummel MD Admit Provider, Other Provider Active Dr. Josephine Watson , Attending Provider Active Dr. Alfred Knutson MD Other Provider Active Team Status: Active Member Role Status Dates Milagros Hunter NP, LEAD PROGRAMMER-C Primary Care Provider Activ e Dr. Adalberto Willingham MD Admit Provider, Attending Provid er Active Dr. Michelle Manley , DO Other Provider Active Team Status: Inactive Member Role Status Dates Milagros Hunter LEAD PROGRAMMER, LEAD PROGRAMMER-C Primary Care Provider, Refe rring Provider Active Dr. Jimenez Matthew , Attending Provider Active Team Status: Active Member Role Status Dates Milagros Hunter NP, LEAD PROGRAMMER-C Primary Care Provider Activ e Dr. Adalberto Willingham MD Admit Provider, Re ferring Provider, Other Provider Active Dr. Michelle Manley , Other Provider Active Dr. Jimenez Matthew , Attending Provider Active Team Status: Inactive Member Role Status Dates Milagros Hunter NP, LEAD PROGRAMMER-C Primary Care Provider Activ e Dr. Adalberto Willingham MD Admit Provider, Attending Provid er Active Dr. Michelle Manley , Other Provider Active Team Status: Inactive Member Role Status Dates Milagros Hunter NP, LEAD PROGRAMMER-C Primary Care Provider Activ e Dr. Tommy Vazquez MD Emergency Provider Active Team Status: Active Member Role Status Dates Milagros Hunter NP, LEAD PROGRAMMER-C Primary Care Provider Activ e Dr. Eb Kendrick MD Emergency Provider Active Dr. Tate Moreno MD Admit Provider, Attending Provider, Referring Provider Active Team Status: Inactive Member Role Status Dates Milagros Hunter LEAD PROGRAMMER, LEAD PROGRAMMER-C Primary Care Provider, Refe rring Provider Active Dr. Matias Best MD Active Po Jenkins NP, LEAD PROGRAMMER-C Attending Provider Active Team Status: Inactive Member Role Status Dates Milagros Hunter NP, LEAD PROGRAMMER-C Primary Care Provider Activ e Dr. Cyril Burden MD Emergency Provider Active Bulb Packer Relationship Specialty Start Date End Date Milagros Hunter CNP [address] [place] [id number] PCP - General Family Medicine 08/20/23 Kiya Salazar Family Medicine 05/21/15 Katarina Wilks [address] [place] [address] Rheumatology 08/20/23 Team Status: Inactive Member Role Status Dates Milagros Hunter NP, LEAD PROGRAMMER-C Primary Care Provider Activ e Dr. Cyril Burden MD Attending Provider, Emergency Pro vider Active Bulb Packer Relationship Specialty Start Date End Date Milagros Hunter CNP [address] [place] [id number] PCP - General [facility] 08/20/23 Kiya Salazar [facility] 05/21/15 Katarina Wilks [address] [place] [address] Rheumatology 08/20/23 Team Status: Inactive Member Role Status Dates Milagros Hunter NP, LEAD PROGRAMMER-C Primary Care Provider Activ e Start: March 29, 2024 End: March 29, 2024 Milagros Hunter NP, LEAD PROGRAMMER-C Referring Provider Active Start: March 29, 2024 End: March 29, 2024 LESLIE Aguilar Attending Provider Active Start: March 29, 2024 End: March 29, 2024 Team Status: Inactive Member Role Status Dates Milagros Hunter NP, LEAD PROGRAMMER-C Primary Care Provider Activ e Start: April 19, 2024 End: April 19, 2024 LESLIE Aguilar Attending Provider Active Start: April 19, 2024 End: April 19, 2024 LESLIE Aguilar Referring Provider Active Start: April 19, 2024 End: April 19, 2024 Team Status: Inactive Member Role Status Dates Milagros Hunter LEAD PROGRAMMER, LEAD PROGRAMMER-C Primary Care Provider Activ e Start: June 28, 2024 End: June 28, 2024 Milagros Hunter NP, LEAD PROGRAMMER-C Referring Provider Active Start: June 28, 2024 End: June 28, 2024 LESLIE Aguilar Attending Provider Active Start: June 28, 2024 End: June 28, 2024 Team Status: Inactive Member Role Status Dates Milagros Hunter NP, LEAD PROGRAMMER-C Primary Care Provider Activ e Start: July 05, 2024 End: July 05, 2024 Dr. Mylene Hoskins MD Attending Provider Active Start: July 05, 2024 End: July 05, 2024 Dr. Mylene Hoskins MD Referring Provider Active Start: July 05, 2024 End: July 05, 2024 Team Status: Active Member Role Status Dates Milagros Hunter LEAD PROGRAMMER, LEAD PROGRAMMER-C Primary Care Provider Activ e Team Status: Inactive Member Role Status Dates Milagros Hunter LEAD PROGRAMMER, LEAD PROGRAMMER-C Primary Care Provider Activ e Start: September 15, 2024 End: September 15, 2024 Dr. Mylene Hoskins MD Attending Provider Active Start: September 15, 2024 End: September 15, 2024 Dr. Mylene Hoskins MD Referring Provider Active Start: September 15, 2024 End: September 15, 2024 Team Status: Inactive Member Role Status Dates Milagros Hunter NP, LEAD PROGRAMMER-C Primary Care Provider Activ e Start: October 04, 2024 End: October 04, 2024 Milagros Hunter NP, LEAD PROGRAMMER-C Attending Provider Active Start: October 04, 2024 End: October 04, 2024 Milagros Hunter LEAD PROGRAMMER, LEAD PROGRAMMER-C Referring Provider Active Start: October 04, 2024 End: October 04, 2024 Source Comments (unrecognize d section and content) In the event this informatio n is protected by the Federal Confidentiality of Alcohol and Drug Abuse Patient Records regulations: The Federal rules restrict any use of the information to criminally investigate or prosecute any alcohol or drug abuse patient.[facility] RehabilitationIn the event this information is protected by the Federal Confidentiality of Alcohol and Drug Abuse Patient Records regulations: The Federal rules restrict any use of the information to criminally investigate or prosecute any alcohol or drug abuse patient.[facility] Reason for Visit (unrecogniz ed section and content) Reason Comments Yearly Exam Active Administered Medications - up to 3 most recent administrations Administered Medications (un recognized section and content) Medication Order MAR Action Action Date Dose Rate Site fluorescein-benoxinate 0.3-0.4 % 1 Drop (FLURESS) 1 Drop, BOTH EYES, DIRECTED, Starting on Belinda 08/20/23 at 1400, Until Thu08/21/23 at 0159, Administer for applanation tonometry. In the event of a Fluress shortage, administer Rice-Fluor 1 drop into both eyes as directed for applanation tonometry Given 08/20/2023 2:00 PM EDT 1 Drop tropicamide 1 % 1 Drop (MYDRIACYL) 1 Drop, BOTH EYES, DIRECTED, Starting on Belinda 08/20/23 at 1400, Until Thu08/21/23 at 0159, Administer for dilation Given 08/20/2023 2:00 PM EDT 1 Drop FOR RECORDS PERTAINING TO PATIENTS WHO ARE OR HAVE BEEN ENROLLED IN A CHEMICAL DEPENDENCY/SUBSTANCEABUSE PROGRAM, SOME INFORMATION MAY BE OMITTED. This clinical summary was aggregated from multiple sources. Caution should be exercised in using it in the provision of clinical care. This summary normalizes information from multiple sources, and as a consequence, information in this document may materially change the coding, format and clinical context of patient data. In addition, data may be omitted in some cases. CLINICAL DECISIONS SHOULD BE BASED ON THE PRIMARY CLINICAL RECORDS. [facility] [employer] [facility]. provides no warranty or guarantee of the accuracy or completeness of information in this document.
--- NOTE | 2024-10-15 08:45 | RAD_ITS ---
PROCEDURE: SHOULDER MIN 2 VIEWS 10/15/2024 REASON FOR EXAM: INJURY/PAIN TECHNIQUE: Three views of the right shoulder COMPARISON: None FINDINGS: Diffuse osteopenia. No fracture or dislocation. Severe degenerative changes of the glenohumeral and acromioclavicular joints. Acromiohumeral interval is maintained. Imaged lung suggs are clear. Degenerative changes of the cervicothoracic spine. Prior postoperative changes of thoracic kyphoplasty on remote compression deformities. RAD/Shoulder min 2 Views IMPRESSION: See above. Reading Location: [facility]
--- NOTE | 2024-10-15 08:45 | RAD_ITS ---
PROCEDURE: FEMUR MIN 2 VIEWS; PELVIS 1 OR 2 VIEWS 10/15/2024 REASON FOR EXAM: INJURY/PAIN TECHNIQUE: 2 view(s) of the right femur and pelvis . COMPARISON: 06/30/2023 FINDINGS: Status post right hip arthroplasty and knee replacement with patellar resurfacing. Hardware is intact. No acute fracture or dislocation. Diffuse osteopenia. No focal soft tissue abnormality. Dense arterial calcifications. Densely calcified uterine fibroids. RAD/Pelvis 1 or 2 Views IMPRESSION: See above Reading Location: [facility]
--- NOTE | 2024-10-15 08:45 | RAD_ITS ---
PROCEDURE: FEMUR MIN 2 VIEWS; PELVIS 1 OR 2 VIEWS 10/15/2024 REASON FOR EXAM: INJURY/PAIN TECHNIQUE: 2 view(s) of the right femur and pelvis . COMPARISON: 06/30/2023 FINDINGS: Status post right hip arthroplasty and knee replacement with patellar resurfacing. Hardware is intact. No acute fracture or dislocation. Diffuse osteopenia. No focal soft tissue abnormality. Dense arterial calcifications. Densely calcified uterine fibroids. RAD/Femur Min 2 Views IMPRESSION: See above Reading Location: [facility]
--- NOTE | 2024-10-15 09:29 | EDS_ITS ---
HPI History of Present Illness Chief Complaint: Fall Detail of Chief Complaint: Patient fell after getting out of bed. Informant: patient and family Onset/Context/Timing Onset: Today and Hours Mechanism/Context: Blunt Injury and Fall Location of pain/injuries: Right shoulder, Right hip and Right thigh Quality of Pain: Dull and Aching Location: Right shoulder, and thigh predominant Current Severity: Mild Maximum Severity: Moderate Worsened by: Movement especially the right lower extremity Relieved by: Rest Associated Symptoms Associated Symptoms: Negative for Parasthesias, Weakness, Loss of function, Loss of consciousness or Amnesia Narrative Narrative: Patient is an 84-year-old woman. She is not on an anticoagulant. She fell getting out of bed. She was reaching for something and she fell. She presents with bruising swelling and pain right shoulder and right hip/thigh. She is status post total knee arthroplasty and total hip arthroplasty on the right. She states her right upper extremity motion is limited due to arthritis of her joint. She denies head trauma. Denies headache. Denies double vision blurred vision loss of vision. [place] ringing or ears. Has trouble with speech or swallowing. She denies neck pain. She denies paresthesia, anesthesia or motor weakness upper or lower extremity. Patient denies abdominal pain. Patient denies black or maroon-colored stool. Patient is not on an antithrombotic or anticoagulant. Prior similar symptoms: Yes Recent Illness/Hospitalization: No PFSH [facility] Medical History History of fall Zenkers diverticulum Back pain Kidney stones Irregular heart beat Closed head injury Fracture of hip, right, closed Wears glasses Wears contact lenses Post-menopausal History of steroid therapy Arthritis Rheumatoid arthritis Easy bruising Injury of back Back pain History of hiatal hernia Gastric reflux Sleep apnea History of pain when walking Normal stress echocardiogram Cardiology follow-up encounter History of irregular heartbeat MVP (mitral valve prolapse) Premature ventricular contraction Premature atrial contraction Supraventricular tachycardia Home Medications ?Medication ?Instructions ?Recorded ?Last Taken ?Type methotrexate sodium (PF) 25 mg/mL 75 mg IM TH Check wi primary 11/29/13 03/03/24 History injection solution doctor prednisone 5 mg tablet 5 mg PO DAILY Check with [facility] 11/29/13 03/07/24 History doctor alendronate 70 mg tablet (Fosamax) 70 mg PO QWEEK formerly [facility] with primary 11/10/18 03/02/24 History doctor folic acid 400 mcg tablet 0.8 mg PO DAILY@0800 Supplem ent 11/10/18 03/07/24 History multivitamin 3 tab PO DAILY Supplement 03/07/24 History tofacitinib 5 mg tablet (Xeljanz) 5 mg PO BID Check wi th primary 06/25/21 03/08/24 History doctor ascorbic acid (vitamin C) 500 mg 500 mg PO DAILY Suppl ement 05/27/22 03/07/24 History capsule lansoprazole 30 mg capsule,delayed 30 mg PO DAILY [facility] with primary 10/02/22 03/08/24 History release (Prevacid) doctor cholecalciferol (vitamin D3) 50 125 mcg PO DAILY Suppl ement 03/17/23 03/07/24 History mcg (2,000 unit) capsule acetaminophen 500 mg tablet 1,000 mg PO Q8 PRN Pain Unknown History buprenorphine 5 mcg/hour weekly 1 patch transdermal QW SKAGWAY 03/15/24 Unknown History transdermal patch (Butrans) tramadol 50 mg tablet 50 mg PO BID pain 03/15/24 U nknown History pantoprazole 40 mg tablet,delayed 40 mg PO BID #60 tab s 03/29/24 Unknown Rx release vonoprazan 10 mg tablet (Voquezna) 10 mg PO QDAY #90 t abs 07/05/24 Unknown Rx Allergy/AdvReac Type Severity Reaction Status Date / Time amoxicillin trihydrate (From Allergy Intermediate Rash Verified 03/29/24 13:59 Trimox) Penicillins Allergy Swelling Verified 03/29/24 13:59 Family History Father CAD (coronary artery disease) CVA (cerebral vascular accident) Hypertension Heart disease Brother CAD (coronary artery disease) Mother Osteoporosis Surgical History History of Zenker's diverticulum removal History of esophagogastroduodenoscopy (EGD) History of right hip hemiarthroplasty History of removal of ovarian cyst History of incisional hernia repair Hx of kyphoplasty History of cardiac radiofrequency ablation (~2000) Hx of cataract surgery Hx of hernia repair H/O total knee replacement Social History household members: none Smoking Status: Never smoker alcohol intake: never substance use type: does not use what type of physical activity do you participate in: none ROS ROS ED Constitutional Constitutional ED: Denies chills, fever(s) or subjective Eyes Eyes: Denies blurry vision or change in vision Cardiovascular Cardiovascular: Denies chest pain or palpitations Respiratory/Chest Respiratory/Chest: Denies cough, dyspnea or dyspnea on exertion Gastrointestinal Gastrointestinal: Denies abdominal pain, nausea or vomiting Genitourinary Genitourinary ED: Denies hematuria Musculoskeletal Musculoskeletal: Denies arthralgias, back pain, myalgias or neck pain Integumentary Reports other Details: Bruising right upper extremity/arm Neurologic Neurologic: Denies headache(s), paresthesias or weakness Endocrine Endocrinology: Denies cold intolerance or heat intolerance Hematologic/Lymphatic Hematologic/Lymphatic: Denies easy bleeding or easy bruising EXAM Physical Exam Const Vital Signs: 10/15/24 07:56 Temperature 97.9 F Temperature Source Temporal Pulse Rate 87 Respiratory Rate 16 Blood Pressure 132/85 H Blood Pressure Mean 100 Pulse Ox 98 Oxygen Delivery Method Room Air Positive well nourished and well developed General Appearance ED: well developed and NAD HEENT HEENT Narrative: Ears normal. No hemotympanum. No clinical signs of basilar skull fracture. No septal deviation hematoma 2. No evidence of dental trauma. atraumatic Eyes PERRL and EOMs intact bilaterally General Eye ED: Yes other Other Details: There is no subconjunctival hemorrhage. Neck full ROM General: Negative for tenderness Chest Wall inspection of chest normal and palpation of chest normal Resp normal respiratory effort and clear to auscultation bilaterally Cardio regular rhythm, S1 normal heart sound, S2 normal heart sound and no murmurs Rate: regular rate GI normal to inspection, nondistended, normoactive bowel sounds, non-tender, non- distended and no masses GI Narrative: There is no pain the patient in the pubic symphysis, iliac wing right or left or ischial tuberosity right or left. Back/Spine normal to inspection and no thoracic nor lumbar tenderness Extremity Negative for normal to inspection or full ROM Extremity Narrative: Patient is limited range of motion at the right shoulder. There is bruising noted and soft tissue swelling. There is pain ovation of the proximal humerus. There is no pain ovation of the clavicle or AC joint. There is no pain the patient over the lateral medial epicondyle, olecranon process or radial head. Axillary, median, radial and ulnar function intact. There may be a small abrasion lateral aspect of the elbow. Patient unable to lift her right leg off the bed. Logrolling causes discomfort to the entire anterior right thigh. There is no pain ovation over the greater trochanteric region. There is no evidence of trauma to the knee. There are surgical scar noted secondary to right total knee arthroplasty. There is no obvious effusion. There is no neurovasc Otomize of that extremity. Patient has bilateral pedal edema. This is chronic. Neuro oriented x3, CN's II-XII intact bilaterally, no focal motor deficits, no sensory deficits noted and gait normal Plantar Reflex: Downgoing: bilateral Psych mental status grossly normal and thought process normal Skin no rashes or lesions noted, skin turgor normal and no jaundice MDM MDM MDM Narrative Medical decision making narrative: With no history of head trauma no headache no neurologic symptoms no neck pain imaging of the head and neck was not obtained. Imaging of the shoulder hip and femur were obtained. The hip was changed to a pelvis with the femur. Radiography Chest X-Ray - ED: 1 View (Single view x-ray of the pelvis was dependently r geoffiewed by me. Patient may have fibroids. There is no evidence of fracture of the pelvis. Patient's status post right total hip arthroplasty. The left femoral neck and proximal shaft appear normal.), 2 View (2 view x-ray of the femur reveals right total hip arthroplasty. There is no periprosthetic fracture noted. She also has a total left knee arthroplasty with no evidence of fracture.) and Read by ED Physician (4 view x-ray of the right shoulder reveals significant arthritic changes of the humeral glenoid joint. There is no fracture, subluxation or dislocation per my independent read at 0930.) Diagnostic Testing: Clinical Impression(s) from Imaging Studies Femur X-Ray 10/15/24 08:45 IMPRESSION: See above Reading Location: [facility] Pelvis X-Ray 10/15/24 08:45 IMPRESSION: See above Reading Location: [facility] Shoulder X-Ray 10/15/24 08:45 IMPRESSION: See above. Reading Location: [facility] Radiology report was reviewed at 1016. My impression and his impression are in agreement. Therefore will discharge to home. Treatment and Re-Evaluation Narrative: Informed patient and daughter of results. She is in pain management. She is presently on multiple meds for pain. She has been struck to apply ice. Discharge Plan Triage Chief Complaint: Fall ED Provider: Tommy Vazquez Dx/Rx/DC Orders Clinical Impression: Contusion of multiple sites of right shoulder, Osteoporosis, Osteoarthritis, GERD (gastroesophageal reflux disease), Contusion of right hip and thigh, Injury due to fall Instructions: ED Contusion, Lower Extremity, ED Contusion, Upper Extremity Prescriptions: No Action alendronate [Fosamax] 70 mg tablet 70 mg PO QWEEK ascorbic acid (vitamin C) 500 mg capsule 500 mg PO DAILY cholecalciferol (vitamin D3) 50 mcg (2,000 unit) capsule 125 mcg PO DAILY buprenorphine [Butrans] 5 mcg/hour patch weekly 1 patch transdermal QWEEK tramadol 50 mg tablet 50 mg PO BID pantoprazole 40 mg tablet,delayed release (DR/EC) 40 mg PO BID Qty: 60 2RF prednisone 5 MG tablet 5 mg PO DAILY methotrexate sodium (PF) 25 MG/ML solution 75 mg IM TH folic acid 400 mcg tablet 0.8 mg PO DAILY@0800 multivitamin Tablet 3 tab PO DAILY Xeljanz 5 mg tablet 5 mg PO BID lansoprazole [Prevacid] 30 mg capsule,delayed release(DR/EC) 30 mg PO DAILY acetaminophen 500 mg tablet 1,000 mg PO Q8 PRN (Reason: Pain) Voquezna 10 mg tablet 10 mg PO QDAY Qty: 90 2RF Primary Care Provider: Milagros Aguirre NP Referrals: Milagros Aguirre NP, [employer] [Primary Care Provider] - 1 Week if not improving Activity Restrictions/Additional Instructions: 1. Take your pain medicine as prescribed by Dr. Cee 2. You may hurt in more places you presently do. 3. You may hurt more than you presently do. 4. Apply ice 6-8 times a day to your right shoulder and right thigh region. Print Language: Bahamian Disposition Disposition: Home, Self Care
--- OUTSIDE RECORDS SUMMARY | 2024-10-15 11:06 | XMS RPT_ITS | CCD ---
Author Organization [facility] Care Team Providers Care Health Commissioner Name Role Phone Nasir VALERIO, Matias Shin Unavailable Taj Birmingham Unavailable Unavailable Blake RN, Jamila Frost Unavailable Lu DAY, LIGHT OIL OPERATOR-C Geraldine Primary Care Provider [phone] Lu DAY, LIGHT OIL OPERATOR-C Geraldine Referring Provider Dr. Nilda Ulrich Attending Provider Elsa DAY NP-C Milagros Primary Care Provider Dr. Matias Best Attending Provider Dr. Nilda Ulrich Referring Provider Dr. Nilda Ulrich Other Provider Elsa DAY NP-C Milagros Referring Provider [phone] Nancy DAY NP-C Jacquie Attending Provider Dr. Maria Victoria Campoverde Attending Provider Dr. Maria Victoria Campoverde Referring Provider Dr. Maria Victoria Campoverde Other Provider Dr. Nilda Ulrich Attending Provider Lu DAY LIGHT OIL OPERATOR-C Geraldine Referring Provider Dr. Tucker Hernandez Attending Provider [phone] Maria Victoria Campoverde Referring Provider Elsa DAY NP-C Milagros Primary Care Provider Elsa LIGHT OIL OPERATOR, LIGHT OIL OPERATOR-C Milagros Referring Provider Dr. Maria Victoria Campoverde Attending Provider Care Physician, No Primary Primary Care Provider Unavailable Care Physician, No Primary Referring Provider Un available Dr. Po Ford Referring Provider Roof LIGHT OIL OPERATOR, LIGHT OIL OPERATOR-C Po Powell Attending Provider ELSA NITRATE OPERATOR-URGENT CARE PHYSICIAN, MILAGROS A Primary Care Physi rubina JESSE MCDONALD, DR. POOLE Attending Unavaila ble ELSA URGENT CARE PHYSICIAN, MILAGROS A Primary Care Unavail able Elsa LIGHT OIL OPERATOR, LIGHT OIL OPERATOR-C Milagros Primary Care Provider Elsa LIGHT OIL OPERATOR, LIGHT OIL OPERATOR-C Milagros Referring Provider Nancy LIGHT OIL OPERATOR, LIGHT OIL OPERATOR-C Jacquie Attending Provider Elsa LIGHT OIL OPERATOR, LIGHT OIL OPERATOR-C Milagros Primary Care Provider Elsa LIGHT OIL OPERATOR, LIGHT OIL OPERATOR-C Milagros Referring Provider Nancy LIGHT OIL OPERATOR, LIGHT OIL OPERATOR-C Jacquie Attending Provider Elsa LIGHT OIL OPERATOR, LIGHT OIL OPERATOR-C Milagros Primary Care Provider Dr. Nilda Cole [...] [phone] Tiff, Dr. Gaona Attending Provider Elsa LIGHT OIL OPERATOR, LIGHT OIL OPERATOR-C Milagros Referring Provider Dr. Jimenez Matthew Other Provider Dr. Adalberto Willingham Chi Referring Provider ALLAN, NORA C Primary Care Unavailable ALLAN, [...] Admitting Unavailable PROVIDER, UNKNOWN Consulting Unavailable Elsa LIGHT OIL OPERATOR, LIGHT OIL OPERATOR-C Milagros Primary Care Provider Elsa LIGHT OIL OPERATOR, LIGHT OIL OPERATOR-Micheal Linares Referring Provider [phone] Alice LIGHT OIL OPERATOR, LIGHT OIL OPERATOR-C Po Powell Attending Provider Salazar, Kiya J Unavailable Elsa URGENT CARE PHYSICIAN, Milagros Angelo Primary Care Provider Katarina Wilks [...] Care Unavailable KATARINA WILKS Referring Unavailable Elsa URGENT CARE PHYSICIAN, Milagros A Primary Care Provider ELSA NITRATE OPERATOR-URGENT CARE PHYSICIAN, MILAGROS Angelo Attending Un available ELSA NITRATE OPERATOR-URGENT CARE PHYSICIAN, MILAGROS A Primary Care Un available Elsa LIGHT OIL OPERATOR-C, [place] Primary Care Provider [phone] Elsa LIGHT OIL OPERATOR-C, Milagros Referring Provider [phone] Leilani Finch Attending Provider Leilani Finch Referring Provider Dr. Mylene Hoskins MD Attending Provider Dr. Mylene Hoskins MD Referring Provider Elsa LIGHT OIL OPERATOR-C, [place] Primary Care Provider Elsa LIGHT OIL OPERATOR-C, Milagros Referring Provider [phone] Leilani Finch Attending Provider Elsa LIGHT OIL OPERATOR-C, Milagros Attending Provider [phone] Roosevelt Zimmerman Attending Unavailable Elsa LIGHT OIL OPERATOR, [facility] Unavailabl e Elsa LIGHT OIL OPERATOR, Milagros Referring Unavailabl e Elsa LIGHT OIL OPERATOR, Milagros Attending Unavailabl e Elsa LIGHT OIL OPERATOR, [place] Primary Care Unavailabl e Elsa LIGHT OIL OPERATOR, Milgaros Attending Unavailabl e Elsa LIGHT OIL OPERATOR, [place] Primary Care Unavailabl e Elsa LIGHT OIL OPERATOR, Milagros Referring Unavailabl e Parviz Mandujano Attending Unavailable Elsa LIGHT OIL OPERATOR, [place] Primary Care Unavailabl e Elsa LIGHT OIL OPERATOR, Milagros Referring Unavailabl e Leilani Gonzales Attending Unavailable Elsa LIGHT OIL OPERATOR, [facility] UnavailMylene Sierra Referring Unavailable Mylene Hoskins Attending Unavailable Elsa LIGHT OIL OPERATOR, [place] Primary Care Unavailabl e Elsa LIGHT OIL OPERATOR, [place] Referring Unavailabl Jimenez Rebolledo Attending Unavailable Jimenez Matthew Consulting Unavailable Elsa LIGHT OIL OPERATOR, [facility] Unavailabl e Atanasov, Leilani Attending Unavailable Elsa LIGHT OIL OPERATOR, Milagros Referring Unavailabl e Elsa LIGHT OIL OPERATOR, [facility] Unavailabl e Elsa LIGHT OIL OPERATOR, [place] Referring Unavailabl e Jus LIGHT OIL OPERATOR, Inge Attending Unavailable Elsa LIGHT OIL OPERATOR, [facility] Unavailabl e Atanasov, Leilani Referring Unavailable Atanasmax, Leilani Attending Unavailable Elsa LIGHT OIL OPERATOR, [facility] Unavailabl e Elsa LIGHT OIL OPERATOR, [place] Referring Unavailabl e Friend, Jimenez Attending Unavailable Elsa LIGHT OIL OPERATOR, [facility] Unavailabl e Basali, Ayman Referring Unavailable Basali, Mylene Attending Unavailable Elsa LIGHT OIL OPERATOR, [facility] Unavailabl e Elsa LIGHT OIL OPERATOR, [place] Referring Unavailabl e Atanasov, Leilani Attending Unavailable Elsa LIGHT OIL OPERATOR, [facility] Unavailabl e Basali, Ayman Referring Unavailable Basali, Mylene Attending Unavailable Elsa LIGHT OIL OPERATOR, [facility] Unavailabl e Elsa LIGHT OIL OPERATOR, Milagros Attending Unavailabl e Elsa LIGHT OIL OPERATOR, [facility] Unavailabl e Elsa LIGHT OIL OPERATOR, [place] Referring Unavailabl e Allergies Allergy Classification Reported Allergen(s) Allergy Type Date of Onset Reaction(s) Facility Penicillins (antibiotic) (1 source) Penicillins Drug Allergy 4 Hives, Rash, Swelling [facility] (4 sources) amoxicillin drug allergy 4 [facility] Work Phone: (18 sources) Amoxicillin; Translations: [amoxicillin trihydrate] Drug Allergy 2 [facility] (2 sources) Penicillin; Translations: [penicillins] Drug Allergy Weal (disorder) [facility] (9 sources) Penicillins; Translations: [PENICILLINS] Allergy to substance 4 [facility] (1 source) Penicillins Drug allergy (disorder) [facility] (1 source) 06/10/17(+) CDIFF; Translations: [06/10/17(+) CDIFF] Propensity to adverse reactions (disorder) [facility] (1 source) Penicillins Drug Allergy 4 Hives, Rash, Swelling [facility] (3 sources) Trimax; Translations: [TRIMAX] Drug Allergy 3 Rash [facility] (2 sources) ALLERGIES NOT ON FILE; Translations: [ALLERGIES NOT ON FILE] Propensity to adverse reactions (disorder) [facility] 2 Repository (1 source) Penicillins Drug allergy (disorder) 4 [facility] Repository Medications Current Medications Medication Drug Class(es) [...] (2 sources) Non-Standardized Chemical Allergen Start: 05-26-2015 [id number] (REFRESH OPTIVE ADVANCED, PF,) 0.5-1-0.5 % dpet [...] TABS One tablet by mouth daily CHOLECALCIFEROL [id number] Michelle Pickering RN Start: 01-19-2014 take 1 tablet by олег th once daily VITAMIN D 2000 UNIT TABS One tablet by mouth daily CHOLECALCIFEROL [id number] Matias Best MD Start: 11-29-2013 End: 11-10-2018 [...] RESTASIS 0.05 % EMUL as directed CYCLOSPORINE [id number] Matias Best MD Start: 10-15-2015 RESTASIS 0.05 % EMUL as directed CYCLOSPORINE [id number] Matias Best MD Comment on above: Use [...] One tablet by mouth daily FOLIC ACID 74428030648 Michelle Pickering RN Start: 11-29-2013 End: 11-10-2018 [...] food/meal, # 30 tab(s), 0 Refill(s), Pharmacy: [facility], Right knee pain, 155, cm, 02/17/24 11:24:00 [...] by mouth twice daily TOFACITINIB CITRATE TABS [id number] Matias Best MD Start: 01-19-2014 take 1 tablet by олег th once daily XELJANZ TABS One tablet by mouth daily TOFACITINIB CITRATE TABS 76127323316 Michelle Pickering RN Start: 11-29-2013 End: 11-10-2018 [...] 5-325 MG TABS As ne eded OXYCODONE-ACETAMINOPHEN 23525917526 Matias Best MD Start: 01-19-2014 End: 01-26-2014 PERCOCET 5-325 MG TABS As ne eded OXYCODONE-ACETAMINOPHEN 53539550451 Matias Best MD Start: 01-19-2014 PERCOCET 5-325 MG TABS As needed OXYCODONE-ACETAMINOPHEN [id number] Michelle Pickering RN Start: 11-29-2013 End: 11-10-2018 [...] BID, # 900 mL, 5 Refill(s), Pharmacy: [id number], Dry mouth, 155, cm, [...] One tablet by mouth daily CALCIUM CARBONATE 35056929460 Michelle Pickering RN Start: 01-19-2014 take 1 tablet by олег th once daily CALCIUM 600 600 MG TABS One tablet by mouth daily CALCIUM CARBONATE 12464588834 Michelle Pickering RN calcium citrate / vitamin D (4 sources) Start: 01-19-2014 take 1 tablet by mouth once daily CALCIUM + D 315-200 MG-UNIT TABS One tablet by mouth daily CALCIUM CITRATE-VITAMIN D 71786052699 Matias Best MD celecoxib 200 mg oral [...] tablet by mouth every other day CELECOXIB [id number] Matias Best MD Start: 11-29-2013 End: 11-10-2018 take 1 capsule by mouth once daily Celecoxib 200 MG capsule Discontinued 200 mg PO DAILY November 29, 2013 12:00am November 10, 2018 2:17pm take 1 capsule by mo [facility] twice daily celecoxib (CELEBREX) 200 mg capsule Take 200 mg by mouth twice daily. 0 Active Comment on above: Take 200 mg by mouth twice daily. cyclobenzaprine hydrochloride 10 mg oral tablet (8 sources) Muscle Relaxant Start: End: CYCLOBENZAPRINE HCL 10 MG TABS As needed CYCLOBENZAPRINE HCL 82742307485 Michelle Pickering RN dexlansoprazole 60 mg delayed release oral capsule (6 sources) Proton Pump Inhibitor Start: 017 take 1 tablet by mouth once daily DEXILANT 60 MG CPDR One tablet by mouth daily DEXLANSOPRAZOLE 64690909795 Matias Best MD Comment on above: Take [...] tablet by mouth daily FLAXSEED (LINSEED) CAPS [id number] Matias Best MD fluticasone propionate 0.05 mg/actuat metered dose nasal spray (16 sources) Corticosteroid Start: 015 End: FLUTICASONE PROPIONATE 50 MCG/ACT SUSP (0.05mg/inh) 1 spray each nostril once a day FLUTICASONE PROPIONATE 86026436983 Matias Best MD Start: 11-06-2014 End: 05-01-2015 take 0.05 mg by inhalation once daily FLUTICASONE PROPIONATE 50 MCG/ACT SUSP (0.05mg/inh) 1 spray each nostril once a day FLUTICASONE PROPIONATE 95059510312 Matias Best MD Start: 01-19-2014 End: 01-26-2014 FLONASE 50 MCG/ACT SUSP Take as directed FLUTICASONE PROPIONATE 53750032519 Michelle Pickering RN Start: 01-19-2014 FLONASE 50 MCG /ACT SUSP Take as directed FLUTICASONE PROPIONATE [id number] Michelle Pickering RN Start: 01-19-2014 End: 01-26-2014 FLONASE 50 MCG/ACT SUSP Take as directed FLUTICASONE PROPIONATE 00622658929 Matias Best MD ibandronic acid 150 mg oral tablet (6 sources) Bisphosphonate Start: 01-19-2014 take 1 tablet by mouth every month BONIVA 150 MG TABS One tablet by mouth monthly IBANDRONATE SODIUM 34929957896 Michelle Pickering RN Comment on above: Take [...] 0.5 % SUSP as directed LOTEPREDNOL ETABONATE 33984587107 Matias Best MD Start: 10-15-2015 End: 10-20-2016 LOTEMAX 0.5 % SUSP as direct ed LOTEPREDNOL ETABONATE 79280587179 Matias Best MD Start: 10-15-2015 LOTEMAX 0.5 % SUSP as directed LOTEPREDNOL ETABONATE 10143604021 Matias Best MD METHOTREXATE SODIUM SOLN (20 sources) Folate Analog Metabolic Inhibitor Start: 11-06-2014 METHOTREXATE SODIUM SOLN 75 mg once a week METHOTREXATE SODIUM SOLN Matias Best MD Start: 01-19-2014 End: 01-26-2014 METHOTREXATE [...] 1.4-0.6 % SOLN as directed POLYVINYL ALCOHOL-POVIDONE 06974910796 Matias Best MD Start: 10-15-2015 REFRESH 1.4-0. 6 % SOLN as directed POLYVINYL ALCOHOL-POVIDONE 23728672593 Matias Best MD raNITIdine 150 mg oral [...] tablet by mouth at bedtime. TRAZODONE HCL 58610091774 Matias Best MD Start: 11-29-2013 End: 11-10-2018 [...] sources) Taking high risk medication; Translations: [Other kiln stacker (current) drug therapy] Onset: 6 05-26-2015 Episodic Other aftercare (5 sources) Other kiln stacker (current) drug therapy; Translations: [Other kiln stacker (current) drug therapy] Onset: 3 Episodic Other aftercare (4 sources) home lending officer (current) use of systemic steroids; Translations: [senior care (current) use of systemic steroids] Onset: 3 [...] By: Tanner Clemens on 10-04-2024 Study report [facility] Imaging Services [address] [place], [place] [id number] SCRN MAMM (CAD)W/GABRIELBart LAURA MR#: [id number] Acct: [id number] Name: HUYEN VALERIO I Rep #: [id number] : 1940 F 84 From: Bret Clemens MD PCP: iMlagros Hunter NP-C Status: RE G CLI Study:SCRN MAMM (CAD)W/GABRIEL BOAT Date of Exa m: 10/04/24 Exam# [id number] Ordering Dr: Milagros Hunter NP LIGHT OIL OPERATOR-C EXAM: SCRN MAMM (CAD)W/GABRIEL BILAT DATE: 10/04/2024 [...] be mailed to the patient. Reading Location: [place] [address] CC: LIGHT OIL OPERATOR-C Milagros Hunter ~ Product Test Specialist: Signed [facility] SCRN MAMM (CAD)W/GABRIEL BILATo n 10-04-2024 SCRN MAMM (CAD)W/GABRIEL BILAT [facility] Imaging Services [address] [place] [id number] SCRN MAMM (CAD)W/GABRIEL BILAT MR#: [id number] Acct: [id number] Name: HUYEN VALERIO I Rep #: [id number] : 1940 F 84 From: Tanner allan MD PCP: YENIFER Barrera Status: REG CLI Study: SCRN MAMM (CAD)W/GABRIEL BILAT Date of Exam: 09/09 12/02 Exam# [id number] Ordering Dr: Milagros Hunter NP LIGHT OIL OPERATOR-C EXAM: SCRN MAMM (CAD)W/GABRIEL BILAT DATE: 10/04/2024 [...] be mailed to the patient. Reading Location: [place] [address] CC: LIGHT OIL OPERATOR-C Milagros Hunter Product Test Specialist: Signed Normal [facility] Cerv Spine 2 or 3 Viewson Cerv Spine 2 or 3 Views [facility] Imaging Services [address] [place] [id number] Cerv Spine 2 or 3 Views MR#: [id number] Acct: [id number] Name: HUYEN VALERIO I Rep #: [id number] : 1940 F 84 From: Rian Manning MD PCP: Milagros Hunter LIGHT OIL OPERATOR-C Status: REG CLI Study: Cerv Spine 2 or 3 Views Date of Exam: 09/15/24 Exam# [id number] Ordering Dr: Mylene Hoskins MD EXAM: XR [...] the cervical spine as described. Reading Location: [facility] CC: YENIFER Hunter; Dr. Mylene Hoskins MD Product Test Specialist: Signed Normal [facility] CBC (INCLUDES DIFF/PLT)on Basophils (Bld) [#/Vol] 0.061 10*3/uL Normal 0-200 [facility] Comment on above: Performed By: #### 6 399, 73068 #### [facility] of [address], [address] [place] [address] Police Liaison Officer: Feliciano Corley MD Basophils/100 WBC (Bld) 1.1 % Normal [facility] Comment on above: Performed By: #### 6 399, 94273 #### [facility] of [place] [address] Police Liaison Officer: Feliciano Corley MD Eosinophils (Bld) [#/Vol] 0.072 10*3/uL Normal 15-500 [facility] Comment on above: Performed By: #### 6 399, 48342 #### [facility] of [address], [address] [place] [address] Police Liaison Officer: Feliciano Corley MD Eosinophils/100 WBC (Bld) 1.3 % Normal [facility] Comment on above: Performed By: #### 6 399, 76270 #### [facility] of [place] [address] Police Liaison Officer: Feliciano Corley MD Erythrocyte distribution width (RBC) [Ratio] 13.8 % Normal 11.0-15.0 [facility] Comment on above: Performed By: #### 6 399, 89815 #### [facility] of [place] [address] Police Liaison Officer: Feliciano Corley MD Hematocrit (Bld) [Volume fraction] 39.0 % Normal 35.0-45.0 [facility] Comment on above: Performed By: #### 6 399, 32477 #### [facility] of [place] [address] Police Liaison Officer: Feliciano Corley MD Hemoglobin (Bld) [Mass/Vol] 12.7 g/dL Normal 11.7-15.5 [facility] Comment on above: Performed By: #### 6 399, 18032 #### [facility] of [place] [address] Police Liaison Officer: Feliciano Corley MD Lymphocytes (Bld) [#/Vol] 0.974 10*3/uL Normal 850-3900 [facility] Comment on above: Performed By: #### 6 399, 92147 #### [facility] of [place] [address] Police Liaison Officer: Feliciano Corley MD Lymphocytes/100 WBC (Bld) 17.7 % Normal [facility] Comment on above: Performed By: #### 6 399, 54924 #### [facility] [place] [address] Police Liaison Officer: Felicinao Corley MD MCH (RBC) [Entitic mass] 31.1 pg Normal 27.0-33.0 [facility] Comment on above: Performed By: #### 6 399, 03180 #### [facility] of [place] [address] Police Liaison Officer: Feliciano Corley MD MCHC (RBC) [Mass/Vol] 32.6 [...] clinical condition. Performed By: #### 6 399, 17813 #### [facility] of [place] [address] Police Liaison Officer: Feliciano Corley MD MCV (RBC) [Entitic vol] 95.6 fL Normal 80.0-100.0 [facility] Comment on above: Performed By: #### 6 399, 47826 #### [facility] of [place] [address] Police Liaison Officer: Feliciano Corley MD Monocytes (Bld) [#/Vol] 0.6 10*3/uL Normal 200-950 [facility] Comment on above: Performed By: #### 6 399, 30613 #### [facility] of [place] [address] Police Liaison Officer: Feliciano Corley MD Monocytes/100 WBC (Bld) 10.9 % Normal [facility] Comment on above: Performed By: #### 6 399, 54517 #### [facility] of [place] [address] Police Liaison Officer: Feliciano Corley MD Neutrophils (Bld) [#/Vol] 3.795 10*3/uL Normal 4567-4965 [facility] Comment on above: Performed By: #### 6 399, 32783 #### [facility] of [place] [address] Police Liaison Officer: Feliciano Corley MD Neutrophils/100 WBC (Bld) 69 % Normal [facility] Comment on above: Performed By: #### 6 399, 43662 #### [facility] of [place] [address] Police Liaison Officer: Feliciano Corley MD Platelet mean volume (Bld) [Entitic vol] 12.3 fL Normal 7.5-12.5 [facility] Comment on above: Performed By: #### 6 399, 63966 #### [facility] of [place] [address] Police Liaison Officer: Feliciano Corley MD Platelets (Bld) [#/Vol] 327 10*3/uL Normal 140-400 [facility] Comment on above: Performed By: #### 6 399, 85966 #### [facility] of [place] [address] Police Liaison Officer: Feliciano Corley MD RBC (Bld) [#/Vol] 4.08 10*6/uL Normal 3.80-5.10 [facility] Comment on above: Performed By: #### 6 399, 74214 #### [facility] of [place] [address] Police Liaison Officer: Feliciano Corley MD WBC (Bld) [#/Vol] 5.5 10*3/uL Normal 3.8-10.8 [facility] Comment on above: Performed By: #### 6 399, 22838 #### [facility] of [place] [address] Police Liaison Officer: Feliciano Corley MD [facility] 08-20-2024 Albumin [Mass/Vol] 4.5 g/dL Normal 3.6-5.1 [facility] Comment on above: Performed By: #### 6 399, 57226 #### [facility] of [place] [address] Police Liaison Officer: Feliciano Corley MD Albumin/Globulin [Mass ratio] 2.4 {ratio} Normal 1.0-2.5 [facility] Comment on above: Performed By: #### 6 399, 58090 #### [facility] [place] [address] Police Liaison Officer: Feliciano Corley MD ALP [Catalytic activity/Vol] 76 U/L Normal 37-153 [facility] Comment on above: Performed By: #### 6 399, 15144 #### [facility] of [place] [address] Police Liaison Officer: Feliciano Corley MD ALT [Catalytic activity/Vol] 13 U/L Normal 6-29 [facility] Comment on above: Performed By: #### 6 399, 89800 #### [facility] of [place] [address] Police Liaison Officer: Feliciano Corley MD AST [Catalytic activity/Vol] 36 U/L High 10-35 [facility] Comment on above: Performed By: #### 6 399, 15040 #### [facility] of [place] [address] [place] [address] Police Liaison Officer: Feliciano Corley MD Bilirubin [Mass/Vol] 0.7 mg/dL Normal 0.2-1.2 [facility] Comment on above: Performed By: #### 6 399, 84982 #### [facility] [place] [address] Police Liaison Officer: Feliciano Corley MD BUN/CREATININE RATIO SEE NOTE: Normal 6-22 [facility] Comment on above: Result Comment: Not Reported: BUN and Creatinine are within reference range. Performed By: #### 6 399, 70610 #### [facility] [place] [address] Police Liaison Officer: Feliciano Corley MD Calcium [Mass/Vol] 9.4 mg/dL Normal 8.6-10.4 [facility] Comment on above: Performed By: #### 6 399, 73339 #### [facility] [place] [address] Police Liaison Officer: Feliciano Corley MD Chloride [Moles/Vol] 104 mmol/L Normal 98-110 [facility] Comment on above: Performed By: #### 6 399, 69573 #### [facility] [place] [address] Police Liaison Officer: Feliciano Corley MD CO2 [Moles/Vol] 29 mmol/L Normal 20-32 [facility] Comment on above: Performed By: #### 6 399, 61916 #### [facility] [place] [address] Police Liaison Officer: Feliciano Corley MD Creatinine [Mass/Vol] 0.83 mg/dL Normal 0.60-0.[address] [facility] Comment on above: Performed By: #### 6 399, 11981 #### [facility] [place] [address] Police Liaison Officer: Feliciano Corley MD GFR/1.73 sq M.predicted among non-blacks MDRD (S/P/Bld) [Vol rate/Area] 69 mL/min/{1.73_m2} Normal > OR = 60 [facility] Comment on above: Performed By: #### 6 399, 93408 #### [facility] [place] [address] Police Liaison Officer: Feliciano Corley MD Globulin (S) [Mass/Vol] 1.9 g/dL Normal 1.9-3.7 [facility] Comment on above: Performed By: #### 6 399, 66087 #### [facility] [place] [address] Police Liaison Officer: Feliciano Corley MD Glucose [Mass/Vol] 82 mg/dL Normal 65-99 [facility] Comment on above: Result Comment: Fasting reference interval Performed By: #### 6 399, 64707 #### [facility] [place] [address] Police Liaison Officer: Feliciano Corley MD Potassium [Moles/Vol] 4.6 mmol/L Normal 3.5-5.[address] [facility] [address] [facility] Comment on above: Performed By: #### 6 399, 46664 #### [facility] [place] [address] Police Liaison Officer: Feliciano Corley MD Protein [Mass/Vol] 6.4 g/dL Normal 6.1-8.1 [facility] Comment on above: Performed By: #### 6 399, 86694 #### [facility] [place] [address] Police Liaison Officer: Feliciano Corley MD Sodium [Moles/Vol] 141 mmol/L Normal 135-146 [facility] Comment on above: Performed By: #### 6 399, 15499 #### [facility] [place] [address] Police Liaison Officer: Feliciano Corley MD Urea nitrogen [Mass/Vol] 15 mg/dL Normal 7-25 [facility] Comment on above: Performed By: #### 6 399, 11943 #### [facility] [address], [address] [place] [address] Police Liaison Officer: Feliciano Corley MD Thoracic Spine 3 Viewson Thoracic Spine 3 Views [facility] Imaging Services [address] [place] [address] Thoracic Spine 3 Views MR#: [id number] Acct: [id number] Name: HUYEN VALERIO I Rep #: [id number] : 1940 F 83 From: Tanner allan MD PCP: Milagros Hunter, LIGHT OIL OPERATOR-C Status: REG CLI Study: Thoracic Spine 3 Views Date of Exam: 07/05/24 Exam# [id number] Ordering Dr: Mylene Hoskins MD PROCEDURE: THORACIC [...] the thoracic vertebrae. Increased kyphosis. Reading Location: [id number] CC: LIGHT OIL OPERATOR-C Milagros Hunter; Dr. Mylene Hoskins MD Product Test Specialist: Signed Normal [facility] Gastroenterology Visit Repor ton 06-28-2024 Gastroenterology Visit Report [facility] [address] [place] [address] OFFICE VISIT Date of Service: 06/28/24 MR#: [id number] Acct: [id number] Name: HUYEN VALERIO I I Rep #: [id number] : 1940 Provider: LESLIE Aguilar Age/Sex: 83/F Location: [facility] Status: Signed Intake Vital Signs 03/15/24 10:32 [...] Appearance: average body habitus and well nourished [facility] Head: normal to inspection Ears: hearing grossly normal bilaterally Nose: external nose normal Face and sinus: normal f (more content not included)... Normal [facility] CBC W Auto Differential pane l (Bld)on 05-23-2024 Basophils (Bld) [#/Vol] 0.08 x10*3/uL Normal 0.00-0.10 [facility] Comment on above: Performed By: #### 5 7021-8 #### MEMBRENO KARRIE ([id number]) [facility] ([facility]) [address] [place] [address] Basophils/100 WBC (Bld) 1.1 % Normal 0.0-2.0 [facility] Comment on above: Performed By: #### 5 7021-8 #### HASEEB YOON ([id number]) [facility] ([facility]) [address] [place] [address] 13525 Eosinophils (Bld) [#/Vol] 0.09 x10*3/uL Normal 0.00-0.40 [facility] Comment on above: Performed By: #### 7021-8 #### HASEEB YOON ([id number]) [facility] ([facility]) [address] [place] [address] 44589 Eosinophils/100 WBC (Bld) 1.3 % Normal 0.0-6.0 [facility] Comment on above: Performed By: #### 7021-8 #### HASEEB YOON ([id number]) [facility] ([facility]) [address] [place] [address] 46364 Erythrocyte distribution width (RBC) [Ratio] 15.4 % High 11.5-14.5 [facility] Comment on above: Performed By: #### 7021-8 #### HASEEB YOON ([id number]) [facility] ([facility]) [address] [place] [address] 23777 Hematocrit (Bld) [Volume fraction] 44.3 % Normal 36.0-46.0 [facility] Comment on above: Performed By: #### 5 7021-8 #### HASEEB YOON (75474) [facility] ([facility]) [address] [place] [address] 72585 Hemoglobin (Bld) [Mass/Vol] 13.3 g/dL Normal 12.0-16.0 [facility] Comment on above: Performed By: #### 5 7021-8 #### HASEEB YOON (18229) [facility] ([facility]) [address] [place] [address] 19878 Immature granulocytes (Bld) [#/Vol] 0.02 x10*3/uL Normal 0.00-0.50 [facility] Comment on above: Performed By: #### 5 7021-8 #### HASEEB YOON ([id number]) [facility] ([facility]) [address] [place] [address] 72783 Immature granulocytes/100 WBC (Bld) 0.3 % Normal 0.0-0.9 [facility] Comment on above: Result Comment: Paty ture Granulocyte Count (IG) includes promyelocytes, myelocytes and metamyelocytes but does not include bands. Percent differential counts (%) should be interpreted in the context of the absolute cell counts (cells/UL). Performed By: #### 5 7021-8 #### HASEEB YOON ([id number]) [facility] ([facility]) [address] [place] [address] 83256 Lymphocytes (Bld) [#/Vol] 1.05 x10*3/uL Normal 0.80-3.00 [facility] Comment on above: Performed By: #### 5 7021-8 #### HASEEB YOON (45011) [facility] ([facility]) [address] [place] [address] 89427 Lymphocytes/100 WBC (Bld) 14.8 % Normal 13.0-44.0 [facility] Comment on above: Performed By: #### 5 7021-8 #### HASEEB YOON (87383) [facility] ([facility]) [address] [place] [address] 72145 MCH (RBC) [Entitic mass] 30.4 pg Normal 26.0-34.0 [facility] Comment on above: Performed By: #### 5 7021-8 #### HASEEB YOON (37703) [facility] ([facility]) [address] [place] [address] 81701 MCHC (RBC) [Mass/Vol] 30.0 g/dL Low 32.0-36.0 [facility] Comment on above: Performed By: #### 5 7021-8 #### HASEEB YOON (37804) [facility] ([facility]) [address] [place] [address] 41454 MCV (RBC) [Entitic vol] 101 fL High 80-100 [facility] Comment on above: Performed By: #### 5 7021-8 #### HASEEB YOON (26313) [facility] ([facility]) [address] [place] [address] 09370 Monocytes (Bld) [#/Vol] 0.87 x10*3/uL High 0.05-0.80 [facility] Comment on above: Performed By: #### 5 7021-8 #### HASEEB YOON (05242) [facility] ([facility]) [address] [place] [address] 31876 Monocytes/100 WBC (Bld) 12.3 % Normal 2.0-10.0 [facility] Comment on above: Performed By: #### 5 7021-8 #### HASEEB YOON (21497) [facility] ([facility]) [address] [place] [address] 63619 Neutrophils (Bld) [#/Vol] 4.98 x10*3/uL Normal 1.60-5.50 [facility] Comment on above: Result Comment: Perc ent differential counts (%) should be interpreted in the context of the absolute cell counts (cells/uL). Performed By: #### 5 7021-8 #### HASEEB YOON (35963) [facility] ([facility]) [address] [place] [address] 53880 Neutrophils/100 WBC (Bld) 70.2 % Normal 40.0-80.0 [facility] Comment on above: Performed By: #### 5 7021-8 #### HASEEB YOON (20210) [facility] ([facility]) [address] [place] [address] 59203 Nucleated RBC/100 WBC (Bld) [Ratio] 0.0 /100 WBCs Normal 0.0-0.0 [facility] Comment on above: Performed By: #### 5 7021-8 #### HASEEB YOON (04741) [facility] ([facility]) [address] [place] [address] 61478 Platelets (Bld) [#/Vol] 357 x10*3/uL Normal 150-450 [facility] Comment on above: Performed By: #### 5 7021-8 #### HASEEB YOON (76413) [facility] ([facility]) [address] [place] [address] 70871 RBC (Bld) [#/Vol] 4.38 x10*6/uL Normal 4.00-5.20 [facility] Comment on above: Performed By: #### 5 7021-8 #### HASEEB YOON (95407) [facility] ([facility]) [address] [place] [address] 67085 WBC (Bld) [#/Vol] 7.1 x10*3/uL Normal 4.4-11.3 [facility] Comment on above: Performed By: #### 5 7021-8 #### HASEEB YOON (56044) [facility] ([facility]) [address] [place] [address] 99698 Comprehensive metabolic 2000 panelon 05-23-2024 Albumin BCP dye [Mass/Vol] 4.2 g/dL Normal 3.4-5.0 [facility] Comment on above: Performed By: #### 2 4323-8 #### HASEEB YOON (21809) [facility] ([facility]) [address] [place] [address] 27353 ALP [Catalytic activity/Vol] 76 U/L Normal 33-136 [facility] Comment on above: Performed By: #### 2 4323-8 #### HASEEB YOON (44426) [facility] ([facility]) [address] [place] [address] 54272 ALT With P-5'-P [Catalytic activity/Vol] 10 U/L Normal 7-45 [facility] Comment on above: Result Comment: Bev ents treated with Sulfasalazine may generate falsely decreased results for ALT. Performed By: #### 2 4323-8 #### HASEEB YOON (91395) [facility] ([facility]) [address] [place] [address] 50998 Anion gap [Moles/Vol] 8 mmol/L Low 10-20 [facility] Comment on above: Performed By: #### 2 4323-8 #### HASEEB YOON (41182) [facility] ([facility]) [address] [place] [address] AST With P-5'-P [Catalytic activity/Vol] 31 U/L Normal 9-39 [facility] Comment on above: Performed By: #### 2 432-8 #### HASEEB YOON (81599) [facility] ([facility]) [address] [place] [address] Bilirubin [Mass/Vol] 0.7 mg/dL Normal 0.0-1.2 [facility] Comment on above: Performed By: #### 2 4322-8 #### HASEEB YOON (08450) [facility] ([facility]) [address] [place] [address] 59414 Calcium [Mass/Vol] 9.8 mg/dL Normal 8.6-10.3 [facility] Comment on above: Performed By: #### 2 4322-8 #### HASEEB YOON (59616) [facility] ([facility]) [address] [place] [address] Chloride [Moles/Vol] 105 mmol/L Normal 98-107 [facility] Comment on above: Performed By: #### 2 4322-8 #### HASEEB YOON (38244) [facility] ([facility]) [address] [place] [address] CO2 [Moles/Vol] 33 mmol/L High 21-32 [facility] Comment on above: Performed By: #### 2 4322-8 #### HASEEB YOON (66553) [facility] ([facility]) [address] [place] [address] Creatinine [Mass/Vol] 0.79 mg/dL Normal 0.50-1.05 [facility] Comment on above: Performed By: #### 2 4322-8 #### HASEEB YOON (84961) [facility] ([facility]) [address] [place] [address] Glomerular filtration rate/1.73 sq M.predicted 73 mL/min/1.73m*2 Normal >60 [facility] Comment on above: Result Comment: Calc ulations of estimated GFR are performed using the 2020 CKD-EPI Study Refit equation without the race variable for the IDMS-Traceable creatinine methods. https://jasn.asnjournals.org/content//ASN.788011 1338 Performed By: #### 2 4323-8 #### HASEEB YOON (60432) [facility] ([facility]) [facility] [place] [address] Glucose [Mass/Vol] 104 mg/dL High 74-99 [facility] Comment on above: Performed By: #### 2 4323-8 #### HASEEB YOON (03255) [facility] ([facility]) [address] [place] [address] 68595 Potassium [Moles/Vol] 4.2 mmol/L Normal 3.5-5.3 [facility] Comment on above: Performed By: #### 2 4323-8 #### HASEEB YOON (69446) [facility] ([facility]) [address] [place] [address] 14524 Protein [Mass/Vol] 6.1 g/dL Low 6.4-8.2 [facility] Comment on above: Performed By: #### 2 4323-8 #### HASEEB YOON (97682) [facility] ([facility]) [address] [place] [address] 87488 Sodium [Moles/Vol] 142 mmol/L Normal 136-145 [facility] Comment on above: Performed By: #### 2 4323-8 #### HASEEB YOON (55389) [facility] ([facility]) [address] [place] [address] 38308 Urea nitrogen [Mass/Vol] 15 mg/dL Normal 6-23 [facility] Comment on above: Performed By: #### 2 4323-8 #### HASEEB YOON (61842) [facility] ([facility]) [address] [place] [address] 67202 Gastric Emptying Study Gastric Emptying Study [facility] [address] [place] [address] Gastric Emptying Study MR#: [id number] Acct: [id number] Name: HUYEN VALERIO I Rep #: [id number] : 1940 F 83 From: Marisol Arriaga PCP: Milagros Hunter, LIGHT OIL OPERATOR-C Status: REG CLI Study: Gastric Emptying Study Date of Exam: 04/19/24 Exam# [id number] Ordering Dr: Leilani Gonzales [id number] CLINICAL: 83-year-old female with history of chronic [...] Hernandez DO at 11:35 EST , CC: LIGHT OIL OPERATOR-C Milagros Hunter; LESLIE Aguilar Product Test Specialist: Signed Normal [facility] Gastroenterology Visit Repor ton 03-29-2024 Gastroenterology Visit Report [facility] [address] [place] [address] OFFICE VISIT Date of Service: 03/29/24 MR#: [id number] Acct: [id number] Name: HUYEN VALERIO I Rep #: [id number] : 1940 Provider: LESLIE Aguilar Age/Sex: 83/F Location: [facility] [place] Status: Signed Intake Vital Signs 03/08/24 11:18 [...] she hasn't seen any improvement in sx. [facility] Medical History History of fall Zenkers diverticulum [...] presents to the office today for f/u. [facility] established 02.02.24; She has a PMHx of [...] Zenker's diverticul (more content not included)... Normal [facility] CBC W Auto Differential pane l (Bld)on 03-21-2024 Basophils (Bld) [#/Vol] 0.05 x10*3/uL Normal 0.00-0.10 [facility] Comment on above: Performed By: #### 5 7021-8 #### HASEEB YOON (75228) [facility] ([facility]) [address] [place] [address] 37927 Basophils/100 WBC (Bld) 0.7 % Normal 0.0-2.0 [facility] Comment on above: Performed By: #### 5 7021-8 #### HASEEB YOON (99116) [facility] ([facility]) [address] [place] [address] 96850 Eosinophils (Bld) [#/Vol] 0.11 x10*3/uL Normal 0.00-0.40 [facility] Comment on above: Performed By: #### 5 7021-8 #### HASEEB YOON (98980) [facility] ([facility]) [address] [place] [address] 19689 Eosinophils/100 WBC (Bld) 1.5 % Normal 0.0-6.0 [facility] Comment on above: Performed By: #### 5 7021-8 #### HASEEB YOON (00077) [facility] ([facility]) [address] [place] [address] 89749 Erythrocyte distribution width (RBC) [Ratio] 16.2 % High 11.5-14.5 [facility] Comment on above: Performed By: #### 5 7021-8 #### HASEEB YOON (99312) [facility] ([facility]) [address] [place] [address] 36275 Hematocrit (Bld) [Volume fraction] 39.3 % Normal 36.0-46.0 [facility] Comment on above: Performed By: #### 5 7021-8 #### HASEEB YOON (66835) [facility] ([facility]) [address] [place] [address] 98526 Hemoglobin (Bld) [Mass/Vol] 12.1 g/dL Normal 12.0-16.0 [facility] Comment on above: Performed By: #### 5 7021-8 #### HASEEB YOON (47763) [facility] ([facility]) [address] [place] [address] 48344 Immature granulocytes (Bld) [#/Vol] 0.06 x10*3/uL Normal 0.00-0.50 [facility] Comment on above: Performed By: #### 5 7021-8 #### HASEEB YOON (48138) [facility] ([facility]) [address] [place] [address] 66491 Immature granulocytes/100 WBC (Bld) 0.8 % Normal 0.0-0.9 [facility] Comment on above: Result Comment: Paty ture Granulocyte Count (IG) includes promyelocytes, myelocytes and metamyelocytes but does not include bands. Percent differential counts (%) should be interpreted in the context of the absolute cell counts (cells/UL). Performed By: #### 5 7021-8 #### HASEEB YOON (99130) [facility] ([facility]) [address] [place] [address] 57415 Lymphocytes (Bld) [#/Vol] 0.59 x10*3/uL Low 0.80-3.00 [facility] Comment on above: Performed By: #### 5 7021-8 #### HASEEB YOON (83722) [facility] ([facility]) [address] [place] [address] 98302 Lymphocytes/100 WBC (Bld) 8.0 % Normal 13.0-44.0 [facility] Comment on above: Performed By: #### 5 7021-8 #### HASEEB YOON (82776) [facility] ([facility]) [address] [place] [address] 05788 MCH (RBC) [Entitic mass] 30.9 pg Normal 26.0-34.0 [facility] Comment on above: Performed By: #### 5 7021-8 #### HASEEB YOON (40695) [facility] ([facility]) [address] [place] [address] 22990 MCHC (RBC) [Mass/Vol] 30.8 g/dL Low 32.0-36.0 [facility] Comment on above: Performed By: #### 5 7021-8 #### HASEEB YOON (55226) [facility] ([facility]) [address] [place] [address] 98848 MCV (RBC) [Entitic vol] 100 fL Normal 80-100 [facility] Comment on above: Performed By: #### 5 7021-8 #### HASEEB YOON (96400) [facility] ([facility]) [address] [place] [address] 02642 Monocytes (Bld) [#/Vol] 0.92 x10*3/uL High 0.05-0.80 [facility] Comment on above: Performed By: #### 5 7021-8 #### HASEEB YOON (76263) [facility] ([facility]) [address] [place] [address] 83349 Monocytes/100 WBC (Bld) 12.5 % Normal 2.0-10.0 [facility] Comment on above: Performed By: #### 5 7021-8 #### HASEEB YOON (59058) [facility] ([facility]) [address] [place] [address] 79065 Neutrophils (Bld) [#/Vol] 5.63 x10*3/uL High 1.60-5.50 [facility] Comment on above: Result Comment: Perc ent differential counts (%) should be interpreted in the context of the absolute cell counts (cells/uL). Performed By: #### 5 7021-8 #### HASEEB YOON (30219) [facility] ([facility]) [address] [place] [address] 46394 Neutrophils/100 WBC (Bld) 76.5 % Normal 40.0-80.0 [facility] Comment on above: Performed By: #### 5 7021-8 #### HASEEB YOON (13790) [facility] ([facility]) [address] [place] [address] 89738 Nucleated RBC/100 WBC (Bld) [Ratio] 0.0 /100 WBCs Normal 0.0-0.0 [facility] Comment on above: Performed By: #### 5 7021-8 #### HASEEB YOON (14614) [facility] ([facility]) [address] [place] [address] 10877 Platelets (Bld) [#/Vol] 400 x10*3/uL Normal 150-450 [facility] Comment on above: Performed By: #### 5 7021-8 #### HASEEB YOON (91421) [facility] ([facility]) [address] [place] [address] 01443 RBC (Bld) [#/Vol] 3.92 x10*6/uL Low 4.00-5.20 [facility] Comment on above: Performed By: #### 5 7021-8 #### HASEEB YOON (86578) [facility] ([facility]) [address] [place] [address] 99815 WBC (Bld) [#/Vol] 7.4 x10*3/uL Normal 4.4-11.3 [facility] Comment on above: Performed By: #### 5 7021-8 #### HASEEB YOON (34485) [facility] ([facility]) [address] [place] [address] 31296 Comprehensive metabolic 2000 panelon 03-21-2024 Albumin BCP dye [Mass/Vol] 4.0 g/dL Normal 3.4-5.0 [facility] Comment on above: Performed By: #### 2 4323-8 #### HASEEB YOON (12748) [facility] ([facility]) [address] [place] [address] 84547 ALP [Catalytic activity/Vol] 140 U/L High 33-136 [facility] Comment on above: Performed By: #### 2 432-8 #### HASEEB YOON (76589) [facility] ([facility]) [address] [place] [address] ALT With P-5'-P [Catalytic activity/Vol] 12 U/L Normal 7-45 [facility] Comment on above: Result Comment: Bev ents treated with Sulfasalazine may generate falsely decreased results for ALT. Performed By: #### 2 432-8 #### HASEEB YOON (43632) [facility] ([facility]) [address] [place] [address] Anion gap [Moles/Vol] 9 mmol/L Low 10-20 [facility] Comment on above: Performed By: #### 2 4322-8 #### HASEEB YOON (44344) [facility] ([facility]) [address] [place] [address] 96516 AST With P-5'-P [Catalytic activity/Vol] 31 U/L Normal 9-39 [facility] Comment on above: Performed By: #### 2 432-8 #### HASEEB YOON (30832) [facility] ([facility]) [address] [place] [address] 25208 Bilirubin [Mass/Vol] 0.3 mg/dL Normal 0.0-1.2 [facility] Comment on above: Performed By: #### 2 432-8 #### HASEEB YOON (78491) [facility] ([facility]) [address] [place] [address] 04349 Calcium [Mass/Vol] 9.6 mg/dL Normal 8.6-10.3 [facility] Comment on above: Performed By: #### 2 432-8 #### HASEEB YOON (07411) [facility] ([facility]) [address] [place] [address] Chloride [Moles/Vol] 107 mmol/L Normal 98-107 [facility] Comment on above: Performed By: #### 2 432-8 #### HASEEB YOON (85204) [facility] ([facility]) [facility] [place] [address] CO2 [Moles/Vol] 32 mmol/L Normal 21-32 [facility] Comment on above: Performed By: #### 2 4323-8 #### HASEEB YOON (25364) [facility] ([facility]) [address] [place] [address] 27617 Creatinine [Mass/Vol] 0.72 mg/dL Normal 0.50-1.05 [facility] Comment on above: Performed By: #### 2 432-8 #### HASEEB YOON (26843) [facility] ([facility]) [address] [place] [address] 66343 Glomerular filtration rate/1.73 sq M.predicted 82 mL/min/1.73m*2 Normal >60 [facility] Comment on above: Result Comment: Calc ulations of estimated GFR are performed using the 2020 CKD-EPI Study Refit equation without the race variable for the IDMS-Traceable creatinine methods. https://jasn.asnjournals.org/content//ASN.903072 2721 Performed By: #### 2 4323-8 #### HASEEB YOON (90054) [facility] ([facility]) [address] [place] [address] 50851 Glucose [Mass/Vol] 106 mg/dL High 74-99 [facility] Comment on above: Performed By: #### 2 4323-8 #### HASEEB YOON (21275) [facility] ([facility]) [address] [place] [address] 79315 Potassium [Moles/Vol] 4.7 mmol/L Normal 3.5-5.3 [facility] Comment on above: Performed By: #### 2 4323-8 #### HASEEB YOON (12453) [facility] ([facility]) [address] [place] [address] 83418 Protein [Mass/Vol] 5.9 g/dL Low 6.4-8.2 [facility] Comment on above: Performed By: #### 2 4323-8 #### HASEEB YOON (93860) [facility] ([facility]) [address] [place] [address] 01426 Sodium [Moles/Vol] 143 mmol/L Normal 136-145 [facility] Comment on above: Performed By: #### 2 4323-8 #### HASEEB YOON (98193) [facility] ([facility]) [address] [place] [address] 89680 Urea nitrogen [Mass/Vol] 16 mg/dL Normal 6-23 [facility] Comment on above: Performed By: #### 2 4323-8 #### HASEEB YOON (01623) [facility] ([facility]) [address] [place] [address] 89501 Cardiology Visit Reporton Cardiology Visit Report [facility]. [address] [place], [place] [address] OFFICE VISIT Date of Service: 03/15/24 MR#: [id number] Acct: [id number] Name: HUYEN VALERIO I Rep #: [id number] : 1940 Provider: YENIFER fernández Age/Sex: 83/F Location: [facility] [place] Status: Signed HPI HPI History of Present [...] Intake Visit Reasons: 1 Y FU/PREV PFM Basting Marker Required: No Accompanied by: Daughter Is patient [...] missed step on curb; no major injury) [facility] Medical History History of fall [place] diverticulum [...] for weaknes (more content not included)... Normal [facility] EGD Reporton 03-08-2024 EGD Report [facility] Medical Records Department [address] [place] [address] EGD Report MR#: [id number] Acct: [id number] Name: HUYEN VALERIO I Rep #: [id number] : 1940 83 From: Jimenez Friend DO PCP: YENIFER Barrera Status:REG [facility] [place] Patient Name: Huyen Valerio Procedure Date: 03/08/2024 [...] present medications. Procedure Code(s): --- Professional --- 58232, Esophagogastroduodenoscopy, flexible, transoral; with biopsy, single or multiple CPT copyright 2021 [employer]. All rights reserved. The codes documented in this report are preliminary and upon decal transferrer review may be revised to meet current compliance requirements. Jimenez Matthew DO 03/08/2024 12:12:28 PM This report has been signed electronically. Number of Addenda: 0 Note Initiated On: 03/08/2024 11:53 AM 03/08/24 1212 Date Jimenez Matthew DO Cosigner Signature: Date (if indicated) CC: LIGHT OIL OPERATOR-C Milagros Matthew DO Date Dictated: 03/08/24 1153 Date Transcribed: Tra (more content not included)... Normal [facility] MR/POSTOP.ANEon 03-08-2024 MR/POSTOP.ANE [facility] Medical Records Department [address] [place] [address] Anesthesia Postop Eval I 03/08/24 1215 MR#: [id number] Acct: [id number] Name: HUYEN VALERIO I Rep #: [id number] : 1940 83 From: Girma Whyte PCP: KULDIP BarreraC Status:REG SDC Y Race: C Location: [place] [address] Anesthesia: Postop Eval I Current Vital Signs [...] Date Girma Brock Signature: Date CC: Signed [facility] MR/AEECKYIU1cv 03-08-2024 MR/POSTOPAN2 [facility] Medical Records Department [address] [place] [address] Anesthesia Postop Eval II 03/08/24 1229 MR#: [id number] Acct: [id number] Name: HUYEN VALERIO I Rep #: [id number] : 1940 83 From: Parviz Escalona MD PCP: YENIFER Barrera Status:REG SDC Y Race: C Location: [place] [address] Anesthesia Postop Eval I Sum Postop Eval [...] Parviz Brock Signature: Date CC: Signed Normal [facility] Special Stain Group Ion 10-2 Special Stain Group I --------- Patient Age/Sex Location Account Attending Physician HUYEN VALERIO I 83/F EN [id number] Jimenez Matthew DO Specimen: [id number] Received: 03/08/24 Status: PARKER Rober Num: [id number] Spec Type: EGD BIOPSY Subm Dr: Jimenez [...] totally submitted in one cassette. 03/08/2024 TC:3 CPT:21933,94048 Patient Age/Sex Location Account Attending Physician HUYEN VALERIO I 83/F EN [id number] Jimenez Matthew DO Signed (signature on file) Dr. Geoffrey Cristobal MD 03/09/[address] [facility] Comment on above: Performed By: #### P SSI ####[facility] [address] [place], [place], [address] XR KNEE THREE VIEWS RIGHTon 02-17-2024 XR [...] 02/17/2024 1:17:15 PM Ordering Provider: MILAGROS HUNTER [facility] Gastroenterology Visit Repor ton 02-02-2024 Gastroenterology Visit Report [facility] Gastroenterology [address] [place] [address] OFFICE VISIT Date of Service: 02/02/24 MR#: [id number] Acct: [id number] Name: HUYEN VALERIO I Rep #: [id number] : 1940 Provider: LESLIE Aguilar Age/Sex: 83/F Location: [facility] [place] Status: Signed Intake Vital Signs 10/13/23 15:16 [...] to the office today for establishment with [facility]. She has a PMHx of Zenker diverticulum, [...] pain wi (more content not included)... Normal [facility] CBC W Auto Differential pane l (Bld)on 01-04-2024 Basophils (Bld) [#/Vol] 0.05 x10*3/uL Normal 0.00-0.10 [facility] Comment on above: Performed By: #### 5 7021-8 #### HASEEB YOON ([id number]) [facility] ([facility]) [address] [place] [address] Basophils/100 WBC (Bld) 0.6 % Normal 0.0-2.0 [facility] Comment on above: Performed By: #### 5 7021-8 #### HASEEB YOON (73700) [facility] ([facility]) [facility] [place] [address] Eosinophils (Bld) [#/Vol] 0.05 x10*3/uL Normal 0.00-0.40 [facility] Comment on above: Performed By: #### 5 7021-8 #### HASEEB YOON ([id number]) [facility] ([facility]) [address] [place] [address] Eosinophils/100 WBC (Bld) 0.6 % Normal 0.0-6.0 [facility] Comment on above: Performed By: #### 5 7021-8 #### HASEEB YOON (95806) [facility] ([facility]) [address] [place] [address] 67660 Erythrocyte distribution width (RBC) [Ratio] 15.5 % High 11.5-14.5 [facility] Comment on above: Performed By: #### 5 7021-8 #### HASEEB YOON (57513) [facility] ([facility]) [address] [place] [address]953 Hematocrit (Bld) [Volume fraction] 39.8 % Normal 36.0-46.0 [facility] Comment on above: Performed By: #### 5 7021-8 #### HASEEB YOON (88907) [facility] ([facility]) [address] [place] [address]8 Hemoglobin (Bld) [Mass/Vol] 12.3 g/dL Normal 12.0-16.0 [facility] Comment on above: Performed By: #### 5 7021-8 #### HASEEB YOON (99291) [facility] ([facility]) [address] [place] [address] 31321 Immature granulocytes (Bld) [#/Vol] 0.03 x10*3/uL Normal 0.00-0.50 [facility] Comment on above: Performed By: #### 5 7021-8 #### HASEEB YOON (24029) [facility] ([facility]) [address] [place] [address] 24812 Immature granulocytes/100 WBC (Bld) 0.4 % Normal 0.0-0.9 [facility] Comment on above: Result Comment: Paty ture Granulocyte Count (IG) includes promyelocytes, myelocytes and metamyelocytes but does not include bands. Percent differential counts (%) should be interpreted in the context of the absolute cell counts (cells/UL). Performed By: #### 5 7021-8 #### HASEEB YOON ([id number]) [facility] ([facility]) [address] [place] [address] Lymphocytes (Bld) [#/Vol] 1.01 x10*3/uL Normal 0.80-3.00 [facility] Comment on above: Performed By: #### 5 7021-8 #### HASEEB YOON ([id number]) [facility] ([facility]) [address] [place], [place] [address] Lymphocytes/100 WBC (Bld) 12.8 % Normal 13.0-44.0 [facility] Comment on above: Performed By: #### 5 7021-8 #### HASEEB YOON ([id number]) [facility] ([facility]) [address] [place] [address] 52685 MCH (RBC) [Entitic mass] 30.3 pg Normal 26.0-34.0 [facility] Comment on above: Performed By: #### 5 7021-8 #### HASEEB YOON (49515) [facility] ([facility]) [address] [place] [address] 30313 MCHC (RBC) [Mass/Vol] 30.9 g/dL Low 32.0-36.0 [facility] Comment on above: Performed By: #### 5 7021-8 #### HASEEB YOON (49879) [facility] ([facility]) [address] [place] [address] 68319 MCV (RBC) [Entitic vol] 98 fL Normal 80-100 [facility] Comment on above: Performed By: #### 5 7021-8 #### HASEEB YOON ([id number]) [facility] ([facility]) [address] [place] [address] 31497 Monocytes (Bld) [#/Vol] 0.84 x10*3/uL High 0.05-0.80 [facility] Comment on above: Performed By: #### 5 7021-8 #### HASEEB YOON (03099) [facility] ([facility]) [address] [place] [address] 06148 Monocytes/100 WBC (Bld) 10.7 % Normal 2.0-10.0 [facility] Comment on above: Performed By: #### 5 7021-8 #### HASEEB YOON ([id number]) [facility] ([facility]) [address] [place] [address] 84627 Neutrophils (Bld) [#/Vol] 5.88 x10*3/uL High 1.60-5.50 [facility] Comment on above: Result Comment: Perc ent differential counts (%) should be interpreted in the context of the absolute cell counts (cells/uL). Performed By: #### 5 7021-8 #### HASEEB YOON ([id number]) [facility] ([facility]) [address] [place] [address] 48373 Neutrophils/100 WBC (Bld) 74.9 % Normal 40.0-80.0 [facility] Comment on above: Performed By: #### 5 7021-8 #### HASEEB YOON (64534) [facility] ([facility]) [address] [place] [address] 91380 Nucleated RBC/100 WBC (Bld) [Ratio] 0.0 /100 WBCs Normal 0.0-0.0 [facility] Comment on above: Performed By: #### 5 7021-8 #### HASEEB YOON (05907) [facility] ([facility]) [address] [place] [address] Platelets (Bld) [#/Vol] 373 x10*3/uL Normal 150-450 [facility] Comment on above: Performed By: #### 5 7021-8 #### HASEEB YOON ([id number]) [facility] ([facility]) [address] [place] [address] 99529 RBC (Bld) [#/Vol] 4.06 x10*6/uL Normal 4.00-5.20 [facility] Comment on above: Performed By: #### 5 7021-8 #### HASEEB YOON (81124) [facility] ([facility]) [facility] [place] [address] WBC (Bld) [#/Vol] 7.9 x10*3/uL Normal 4.4-11.3 [facility] Comment on above: Performed By: #### 5 7021-8 #### HASEEB YOON (49475) [facility] ([facility]) [address] [place] [address] Comprehensive metabolic 2000 panelon 01-04-2024 Albumin BCP dye [Mass/Vol] 4.2 g/dL Normal 3.4-5.0 [facility] Comment on above: Performed By: #### 2 4323-8 #### HASEEB YOON (20884) [facility] ([facility]) [address] [place] [address] ALP [Catalytic activity/Vol] 91 U/L Normal 33-136 [facility] Comment on above: Performed By: #### 2 4323-8 #### HASEEB YOON (91136) [facility] ([facility]) [address] [place] [address] 50095 ALT With P-5'-P [Catalytic activity/Vol] 10 U/L Normal 7-45 [facility] Comment on above: Result Comment: Bev ents treated with Sulfasalazine may generate falsely decreased results for ALT. Performed By: #### 2 4323-8 #### HASEEB YOON (74782) [facility] ([facility]) [address] [place] [address] 32678 Anion gap [Moles/Vol] 12 mmol/L Normal 10-20 [facility] Comment on above: Performed By: #### 2 4323-8 #### HASEEB YOON (96505) [facility] ([facility]) [address] [place] [address] 70563 AST With P-5'-P [Catalytic activity/Vol] 31 U/L Normal 9-39 [facility] Comment on above: Performed By: #### 2 4323-8 #### HASEEB YOON (86628) [facility] ([facility]) [address] [place] [address] Bilirubin [Mass/Vol] 0.6 mg/dL Normal 0.0-1.2 [facility] Comment on above: Performed By: #### 2 4323-8 #### HASEEB YOON (88278) [facility] ([facility]) [address] [place] [address] Calcium [Mass/Vol] 10.0 mg/dL Normal 8.6-10.3 [facility] Comment on above: Performed By: #### 2 432-8 #### HASEEB YOON (28253) [facility] ([facility]) [address] [place] [address] 72991 Chloride [Moles/Vol] 104 mmol/L Normal 98-107 [facility] Comment on above: Performed By: #### 2 432-8 #### HASEEB YOON (60811) [facility] ([facility]) [address] [place] [address] 96158 CO2 [Moles/Vol] 28 mmol/L Normal 21-32 [facility] Comment on above: Performed By: #### 2 4323-8 #### HASEEB YOON (32974) [facility] ([facility]) [facility] [place] [address] Creatinine [Mass/Vol] 0.83 mg/dL Normal 0.50-1.05 [facility] Comment on above: Performed By: #### 2 4323-8 #### HASEEB YOON (61494) [facility] ([facility]) [address] [place] [address] 85659 Glomerular filtration rate/1.73 sq M.predicted 69 mL/min/1.73m*2 Normal >60 [facility] Comment on above: Result Comment: Calc ulations of estimated GFR are performed using the 2020 CKD-EPI Study Refit equation without the race variable for the IDMS-Traceable creatinine methods. https://jasn.asnjournals.org/content//ASN.502417 6668 Performed By: #### 2 4323-8 #### HASEEB YOON (66481) [facility] ([facility]) [facility] [place] [address] Glucose [Mass/Vol] 115 mg/dL High 74-99 [facility] Comment on above: Performed By: #### 2 4323-8 #### HASEEB YOON (05322) [facility] ([facility]) [address] [place] [address] 99576 Potassium [Moles/Vol] 4.5 mmol/L Normal 3.5-5.3 [facility] Comment on above: Performed By: #### 2 4323-8 #### HASEEB YOON (52589) [facility] ([facility]) [address] [place] [address] 49044 Protein [Mass/Vol] 6.6 g/dL Normal 6.4-8.2 [facility] Comment on above: Performed By: #### 2 4323-8 #### HASEEB YOON (28679) [facility] ([facility]) [address] [place] [address] 67880 Sodium [Moles/Vol] 139 mmol/L Normal 136-145 [facility] Comment on above: Performed By: #### 2 4323-8 #### HASEEB YOON ([id number]) [facility] ([facility]) [facility] [place] [address] Urea nitrogen [Mass/Vol] 20 mg/dL Normal 6-23 [facility] Comment on above: Performed By: #### 2 4323-8 #### HASEEB YOON ([id number]) [facility] ([facility]) [address] [place] [address] 33346 Facial Bones min 3 Viewson 0 11-03-2023 Facial Bones min 3 Views [facility] Imaging Services [address] [place] [address] Facial Bones min 3 Views MR#: [id number] Acct: [id number] Name: HUYEN VALERIO I Rep #: [id number] : 1940 F 83 From: Girma Barajas MD PCP: YENIFER Barrera Status: REG CLI Study: Facial Bones min 3 Views Date of Exam: 4 Exam# [id number] Ordering Dr: Milagros Hunter NP 3:[id number] STUDY: X-RAY - FACIAL BONES REASON FOR [...] at 11:46 EDT , CC: YENIFER Hunter Product Test Specialist: Signed Normal [facility] 10-20-2023 [facility] TEODOROHUYEN I ([id number]) 1940 F Date Time Provider Department 10/20/23 DC LEMOS [facility] During your visit today, we recorded [...] month. - Omeprazole 40 mg capsule - [id number]-PF (REFRESH OPTIVE ADVANCED, PF,) 0.5-1-0.5 % dpet [...] Status:Closed by SEPIDEH BAUTISTA on 10/20/23 Normal [facility] Brain/Head without Contrasto n 10-13-2023 Brain/Head without Contrast [facility] Imaging Services [address] [place] [address] Brain/Head without Contrast MR#: [id number] Acct: [id number] Name: HUYEN VALERIO I Rep #: [id number] : 1940 F 83 From: Riley Miller DO PCP: YENIFER Barrera Status: REG ER Study: Brain/Head without Contrast Date of Exam: 09/01 Exam# [id number] Ordering Dr: Roosevelt Zimmerman MD 0:[id number] STUDY: CT BRAIN WITHOUT CONTRAST REASON FOR [...] 16:33 EDT Reading Location ID and State: [facility] / [place] Tel [phone], Service support , CC: YENIFER Hunter; Dr. Roosevelt Zimmerman MD Product Test Specialist: Signed Normal [facility] CBC W Auto Differential pane l (Bld)on 10-13-2023 Basophils (Bld) [#/Vol] 0.07 10*3/uL Normal <0.11 [facility] Comment on above: Order Comment: Speci men Type: BLOOD SPECIMEN Ordering Facility: [facility] Address: [address] [place] [address] Performed By: #### 5 7021-8 #### [facility] CLIA [id number] [address] [place] [address] [place] Basophils/100 WBC (Bld) 0.8 % Normal [facility] Comment on above: Order Comment: Speci men Type: BLOOD SPECIMEN Ordering Facility: [facility] Address: [address] [place] [address] Performed By: #### 5 7021-8 #### [facility] CLIA [id number] [address] [place] [address] [place] Differential cell count method Nom (Bld) Auto Normal [facility] Comment on above: Order Comment: Speci men Type: BLOOD SPECIMEN Ordering Facility: [facility] Address: [address] [place] [address] Performed By: #### 5 7021-8 #### [facility] CLIA [id number] [address] [place] [address] [place] Eosinophils (Bld) [#/Vol] 0.08 10*3/uL Normal <0.46 [facility] Comment on above: Order Comment: Speci men Type: BLOOD SPECIMEN Ordering Facility: [facility] Address: [address] [place] [address] Performed By: #### 5 7021-8 #### [facility] CLIA [id number] [address] [place] [address] [place] Eosinophils/100 WBC (Bld) 1.0 % Normal [facility] Comment on above: Order Comment: Speci men Type: BLOOD SPECIMEN Ordering Facility: [facility] Address: [address] [place] [address] Performed By: #### 5 7021-8 #### [facility] CLIA [id number] [address] [place] [address] [place] Erythrocyte distribution width (RBC) [Ratio] 16.9 % High 11.5-15.0 [facility] Comment on above: Order Comment: Speci men Type: BLOOD SPECIMEN Ordering Facility: [facility] Address: [address] [place] [address] Performed By: #### 5 7021-8 #### [facility] CLIA [id number] [address] [place] [address] [place] Hematocrit (Bld) [Volume fraction] 38.5 % Normal 36.0-46.0 [facility] Comment on above: Order Comment: Speci men Type: BLOOD SPECIMEN Ordering Facility: [facility] Address: [address] [place] [address] Performed By: #### 5 7021-8 #### [facility] CLIA [id number] [address] [place] [address] [place] Hemoglobin (Bld) [Mass/Vol] 11.9 g/dL Normal 11.5-15.5 [facility] Comment on above: Order Comment: Speci men Type: BLOOD SPECIMEN Ordering Facility: [facility] Address: [address] [place] [address] Performed By: #### 5 7021-8 #### [facility] CLIA [id number] [address] [place] [address] [place] Immature granulocytes (Bld) [#/Vol] 0.04 10*3/uL Normal <0.10 [facility] Comment on above: Order Comment: Speci men Type: BLOOD SPECIMEN Ordering Facility: [facility] Address: [address] [place] [address] Performed By: #### 5 7021-8 #### [facility] CLIA [id number] [address] [place] [address] [place] Immature granulocytes/100 WBC (Bld) 0.5 % Normal [facility] Comment on above: Order Comment: Speci men Type: BLOOD SPECIMEN Ordering Facility: [facility] Address: [address] [place] [address] Performed By: #### 5 7021-8 #### [facility] CLIA [id number] [address] [place] [address] [place] Lymphocytes (Bld) [#/Vol] 0.71 10*3/uL Low 1.00-4.00 [facility] Comment on above: Order Comment: Speci men Type: BLOOD SPECIMEN Ordering Facility: [facility] Address: [address] [place] [address] Performed By: #### 5 7021-8 #### [facility] CLIA [id number] [address] [place] [address] [place] Lymphocytes/100 WBC (Bld) 8.6 % Normal [facility] Comment on above: Order Comment: Speci men Type: BLOOD SPECIMEN Ordering Facility: [facility] Address: [address] [place] [address] Performed By: #### 5 7021-8 #### [facility] CLIA [id number] [address] [place] [address] [place] MCH (RBC) [Entitic mass] 29.7 pg Normal 26.0-34.0 [facility] Comment on above: Order Comment: Speci men Type: BLOOD SPECIMEN Ordering Facility: [facility] Address: [address] [place] [address] Performed By: #### 5 7021-8 #### [facility] CLIA [id number] [address] [place] [address] [place] MCHC (RBC) [Mass/Vol] 30.9 g/dL Normal 30.5-36.0 [facility] Comment on above: Order Comment: Speci men Type: BLOOD SPECIMEN Ordering Facility: [facility] Address: [address] [place] [address] Performed By: #### 5 7021-8 #### [facility] CLIA [id number] [address] [place] [address] [place] MCV (RBC) [Entitic vol] 96.0 fL Normal 80.0-100.0 [facility] Comment on above: Order Comment: Speci men Type: BLOOD SPECIMEN Ordering Facility: [facility] Address: [address] [place] [address] Performed By: #### 5 7021-8 #### [facility] CLIA [id number] [address] [place] [address] [place] Monocytes (Bld) [#/Vol] 0.78 10*3/uL Normal <0.87 [facility] Comment on above: Order Comment: Speci men Type: BLOOD SPECIMEN Ordering Facility: [facility] Address: [address] [place] [address] Performed By: #### 5 7021-8 #### [facility] CLIA [id number] [address] [place] [address] [place] Monocytes/100 WBC (Bld) 9.5 % Normal [facility] Comment on above: Order Comment: Speci men Type: BLOOD SPECIMEN Ordering Facility: [facility] Address: [address] [place] [address] Performed By: #### 5 7021-8 #### [facility] CLIA [id number] [address] [place] [address] [place] Neutrophils (Bld) [#/Vol] 6.56 10*3/uL Normal 1.45-7.50 [facility] Comment on above: Order Comment: Speci men Type: BLOOD SPECIMEN Ordering Facility: [facility] Address: [address] [place] [address] Performed By: #### 5 7021-8 #### [facility] CLIA [id number] [address] [place] [address] [place] Neutrophils/100 WBC (Bld) 79.6 % Normal [facility] Comment on above: Order Comment: Speci men Type: BLOOD SPECIMEN Ordering Facility: [facility] Address: [address] [place] [address] Performed By: #### 5 7021-8 #### [facility] CLIA [id number] [address] [place] [address] [place] Nucleated RBC (Bld) [#/Vol] 10*3/uL Normal <0.01 [facility] Comment on above: Order Comment: Speci men Type: BLOOD SPECIMEN Ordering Facility: [facility] Address: [address] [place] [address] Performed By: #### 5 7021-8 #### [facility] CLIA [id number] [address] [place] [address] [place] Nucleated RBC/100 WBC (Bld) [Ratio] 0.0 /100 WBC Normal [facility] Comment on above: Order Comment: Speci men Type: BLOOD SPECIMEN Ordering Facility: [facility] Address: [address] [place] [address] Performed By: #### 5 7021-8 #### [facility] CLIA [id number] [address] [place], [place] [address] [place] Platelet mean volume (Bld) [Entitic vol] 12.0 fL Normal 9.0-12.7 [facility] Comment on above: Order Comment: Speci men Type: BLOOD SPECIMEN Ordering Facility: [facility] Address: [address] [place] [address] Performed By: #### 5 7021-8 #### [facility] CLIA [id number] [address] [place] [address] [place] Platelets (Bld) [#/Vol] 326 10*3/uL Normal 150-400 [facility] Comment on above: Order Comment: Speci men Type: BLOOD SPECIMEN Ordering Facility: [facility] Address: [address] [place] [address] Performed By: #### 5 7021-8 #### [facility] CLIA [id number] [address] [place] [address] [place] RBC (Bld) [#/Vol] 4.01 10*6/uL Normal 3.90-5.20 [facility] Comment on above: Order Comment: Speci men Type: BLOOD SPECIMEN Ordering Facility: [facility] Address: [address] [place] [address] Performed By: #### 5 7021-8 #### [facility] CLIA [id number] [address] [place] [address] [place] WBC (Bld) [#/Vol] 8.24 10*3/uL Normal 3.70-11.00 [facility] Comment on above: Order Comment: Speci men Type: BLOOD SPECIMEN Ordering Facility: [facility] Address: [address] [place] [address] Performed By: #### 5 7021-8 #### [facility] CLIA [id number] [address] [id number], [place] [address] [place] Comprehensive metabolic 2000 panelon 10-13-2023 Albumin [Mass/Vol] 4.0 g/dL Normal 3.9-4.9 [facility] Comment on above: Order Comment: Speci men Type: BLOOD SPECIMEN Ordering Facility: [facility] Address: [address] [place] [address] Performed By: #### 2 4323-8 #### [facility] CLIA [id number] [address] [place] [address] [place] ALP [Catalytic activity/Vol] 112 U/L Normal 34-123 [facility] Comment on above: Order Comment: Speci men Type: BLOOD SPECIMEN Ordering Facility: [facility] Address: [address] [place] [address] Performed By: #### 2 4323-8 #### [facility] CLIA [id number] [address] [place] [address] [place] ALT [Catalytic activity/Vol] 13 U/L Normal 7-38 [facility] Comment on above: Order Comment: Speci men Type: BLOOD SPECIMEN Ordering Facility: [facility] Address: [address] [place] [address] Performed By: #### 2 4323-8 #### [facility] CLIA [id number] [address] [place] [address] [place] Anion gap [Moles/Vol] 13 mmol/L Normal 8-15 [facility] Comment on above: Order Comment: Speci men Type: BLOOD SPECIMEN Ordering Facility: [facility] Address: [address] [place] [address] Performed By: #### 2 4323-8 #### [facility] CLIA [id number] [address] [place] [address] [place] AST [Catalytic activity/Vol] 41 U/L High 13-35 [facility] Comment on above: Order Comment: Speci men Type: BLOOD SPECIMEN Ordering Facility: [facility] Address: [address] [place] [address] Performed By: #### 2 4323-8 #### [facility] CLIA [id number] [address] [place] [address] [place] Bilirubin [Mass/Vol] 0.4 mg/dL Normal 0.2-1.3 [facility] Comment on above: Order Comment: Speci men Type: BLOOD SPECIMEN Ordering Facility: [facility] Address: [address] [place] [address] Performed By: #### 2 4323-8 #### [facility] CLIA [id number] [address] [place] [address] [place] Calcium [Mass/Vol] 10.3 mg/dL High 8.5-10.2 [facility] Comment on above: Order Comment: Speci men Type: BLOOD SPECIMEN Ordering Facility: [facility] Address: [address] [place] [address] Performed By: #### 2 4323-8 #### [facility] CLIA [id number] [address] [place] [address] [place] Chloride [Moles/Vol] 103 mmol/L Normal 98-107 [facility] Comment on above: Order Comment: Speci men Type: BLOOD SPECIMEN Ordering Facility: [facility] Address: [address] [place] [address] Performed By: #### 2 4323-8 #### [facility] CLIA [id number] [address] [place] [address] [place] CO2 [Moles/Vol] 26 mmol/L Normal 22-30 [facility] Comment on above: Order Comment: Speci men Type: BLOOD SPECIMEN Ordering Facility: [facility] Address: [address] [place], [place] [address] Performed By: #### 2 4323-8 #### [facility] CLIA [id number] [address] [place] [address] [place] Creatinine [Mass/Vol] 0.78 mg/dL Normal 0.58-0.96 [facility] Comment on above: Order Comment: Maryann patel Type: BLOOD SPECIMEN Ordering Facility: [facility] Address: [address] [place] [address] Performed By: #### 2 4323-8 #### [facility] CLIA [id number] [address] [place] [address] [place] Creatinine and Glomerular filtration rate.predicted panel (S/P/Bld) 75 mL/min/1.73m??? Normal >=60 [facility] Comment on above: Order Comment: Maryann patel Type: BLOOD SPECIMEN Ordering Facility: [facility] Address: [address] [place] [address] Result Comment: Kallie mated Glomerular Filtration Rate [...] GFR. Performed By: #### 2 4323-8 #### [facility] CLIA [id number] [address] [place] [address] [place] Glucose [Mass/Vol] 94 mg/dL Normal 74-99 [facility] Comment on above: Order Comment: Maryann patel Type: BLOOD SPECIMEN Ordering Facility: [facility] Address: [address] [place] [address] Result Comment: The [place] [employer] (ADA) provides guidance for cutoff [...] Standards of Medical Care in Diabetes 2016, [place] [employer]. Diabetes Care. 2016.39(Suppl 1). Performed By: #### 2 4323-8 #### [facility] CLIA [id number] [address] [place] [address] [place] Potassium [Moles/Vol] 4.5 mmol/L Normal 3.7-5.1 [facility] Comment on above: Order Comment: Speci men Type: BLOOD SPECIMEN Ordering Facility: [facility] Address: [address] [place] [address] Performed By: #### 2 4323-8 #### [facility] CLIA [id number] [address] [place] [address] [place] Protein [Mass/Vol] 6.2 g/dL Low 6.3-8.0 [facility] Comment on above: Order Comment: Speci men Type: BLOOD SPECIMEN Ordering Facility: [facility] Address: [address] [place] [address] Performed By: #### 2 4323-8 #### [facility] CLIA [id number] [address] [place] [address] [place] Sodium [Moles/Vol] 142 mmol/L Normal 136-144 [facility] Comment on above: Order Comment: Speci men Type: BLOOD SPECIMEN Ordering Facility: [facility] Address: [address] [place] [address] Performed By: #### 2 4323-8 #### [facility] CLIA [id number] [address] [place] [address] [place] Urea nitrogen [Mass/Vol] 18 mg/dL Normal 7-21 [facility] Comment on above: Order Comment: Speci men Type: BLOOD SPECIMEN Ordering Facility: [facility] Address: [address] [place] [address] Performed By: #### 2 4323-8 #### [facility] CLIA [id number] [address] [place] [address] OF [facility] Emergency Department Summary on 10-13-2023 Emergency Department Summary [facility] Medical Records Department [address] [place] [address] Emergency Department Summary 10/13/23 MR#: [id number] Acct: [id number] Name: HUYEN VALERIO I Rep #: [id number] : 1940 83 From: Roosevelt Zimmerman MD PCP: Milagros Hunter 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 Her daughter is with her and states that they were coming out of the [employer] store. She stepped down off a curb. She fell forward onto her face, and left shoulder. She complains of headache on the left side, laceration to the left latter-day, no neck pain but has left shoulder pain. She is right-hand dominant. She has had bilateral total knee arthroplasties and complains of left knee pain as well. There was no loss of consciousness with the fall. She is unsure of her last tetanus immunization. [facility] Medical History [place] diverticulum Back pain Kidney [...] of vision. No rhinorrhea. Laceration to left latter-day. Cardiovascular: No chest pain. No palpitations. Right [...] HEENT: Normoceph (more content not included)... Normal [facility] Knee 4 or More Viewson 10-12 Knee 4 or More Views [facility] Imaging Services [address] [place] [address] [id number] Knee 4 or More Views MR#: [id number] Acct: [id number] Name: HUYEN VALERIO I Rep #: [id number] : 1940 F 83 From: Riley Miller DO PCP: YENIFER Barrera Status: REG ER Study: Knee 4 or More Views Date of Exam: 10/13/23 Exam# [id number] Ordering Dr: Roosevelt Zimmerman MD [id number] INDICATION: Trauma EXAMINATION/TECHNIQUE: X-RAY - LEFT XR [...] CC: YENIFER Hunter; Dr. Roosevelt Zimmerman MD Product Test Specialist: Signed Normal [facility] Shoulder min 2 Viewson 10-12 Shoulder min 2 Views [facility] Imaging Services [address] [place] [address] Shoulder min 2 Views MR#: [id number] Acct: [id number] Name: HUYEN VALERIO I Rep #: [id number] : 1940 F 83 From: Riley Miller DO PCP: YENIFER Barrera Status: REG ER Study: Shoulder min 2 Views Date of Exam: 10/13/23 Exam# [id number] Ordering Dr: Roosevelt Zimmerman MD [id number] INDICATION: trauma EXAMINATION/TECHNIQUE: X-RAY - LEFT XR [...] CC: YENIFER Hunter; Dr. Roosevelt Zimmerman MD Product Test Specialist: Signed Normal [facility] Venous Duplex US, Unilateral on 10-13-2023 Venous Duplex US, Unilateral [facility] [address] [place] [address] Venous Duplex US, Unilateral 10/13/23 1544 MR#: [id number] Acct: [id number] Name: HUYEN VALERIO I Rep #: [id number] : 1940 83 From: Parviz Mandujano MD [...] 10/13/23 1632 Date Parviz Mandujano MD CC: LIGHT OIL OPERATOR-C Milagros Hunter; Dr. Roosevelt Zimmerman MD Date Dictated: 10/13/23 1544 Date Transcribed: 10/13/23 5496 Product Test Specialist: Signed Normal [facility] Laboratory - Drug toxicology Ordered By: Mylene Hoskins on 09-08-2023 Amphetamines Ql (U) Negative <1000 ng/mL [facility] Benzodiazepines Ql (U) Negative < 200 ng/mL [facility] Cannabinoids Screen Ql (U) Negative < 50 ng/mL [facility] Cocaine Ql (U) Negative < 300 ng/mL [facility] Opiates Ql (U) Negative < 300 ng/mL [facility] No Panel InformationOrdered By: Mylene Hoskins on 09-08-2023 MDMA (Ecstasy) Screen Negative < 500 ng/mL [facility] Miscellaneous Test See comment [facility] Comment on above: TEST RESULTS LIMITST ramadol POSITIVE [id number] Tramadol Conf, [place], [place] >84889 ng/mL VKOLYR=647 TESTING PERFORMED AT [facility]. ORIGINAL REPORT ON FILE IN LAB CONTAINS ADDITIONAL TEST SITE INFORMATION. Urine Barbiturates Screen Negative < 200 ng/mL [facility] Urine Buprenorphine Screen Negative <10 ng/mL [facility] Urine Drug Screen Comment [facility] Comment on above: *Additional results available. Contact [...] Urine Methadone Screen Negative < 300 ng/mL [facility] Urine phencyclidine (PCP) de tectionOrdered By: Mylene Hoskins on 09-08-2023 Phencyclidine Ql (U) Negative < 25 ng/mL [facility] CBC W Auto Differential pane l (Bld)on 07-08-2023 Basophils (Bld) [#/Vol] 0.06 10*3/uL Normal <0.11 [facility] Comment on above: Order Comment: Speci men Type: BLOOD SPECIMEN Ordering Facility: [facility] Address: [address] [place] [address] Performed By: #### 5 7021-8 #### [facility] CLIA [id number] [address] [place] [address] [place] Basophils/100 WBC (Bld) 0.7 % Normal [facility] Comment on above: Order Comment: Speci men Type: BLOOD SPECIMEN Ordering Facility: [facility] Address: [address] [place] [address] Performed By: #### 5 7021-8 #### [facility] CLIA [id number] [address] [place] [address] [place] Differential cell count method Nom (Bld) Auto Normal [facility] Comment on above: Order Comment: Speci men Type: BLOOD SPECIMEN Ordering Facility: [facility] Address: [address] [place] [address] Performed By: #### 5 7021-8 #### [facility] CLIA [id number] [address] [place] [address] [place] Eosinophils (Bld) [#/Vol] 0.10 10*3/uL Normal <0.46 [facility] Comment on above: Order Comment: Speci men Type: BLOOD SPECIMEN Ordering Facility: [facility] Address: [address] [place] [address] Performed By: #### 5 7021-8 #### [facility] CLIA [id number] [address] [place] [address] [place] Eosinophils/100 WBC (Bld) 1.2 % Normal [facility] Comment on above: Order Comment: Speci men Type: BLOOD SPECIMEN Ordering Facility: [facility] Address: [address] [place] [address] Performed By: #### 5 7021-8 #### [facility] CLIA [id number] [address] [place] [address] [place] Erythrocyte distribution width (RBC) [Ratio] 16.3 % High 11.5-15.0 [facility] Comment on above: Order Comment: Speci men Type: BLOOD SPECIMEN Ordering Facility: [facility] Address: [address] [place] [address] Performed By: #### 5 7021-8 #### [facility] CLIA [id number] [address] [place] [address] [place] Hematocrit (Bld) [Volume fraction] 38.6 % Normal 36.0-46.0 [facility] Comment on above: Order Comment: Speci men Type: BLOOD SPECIMEN Ordering Facility: [facility] Address: [address] [place] [address] Performed By: #### 5 7021-8 #### [facility] CLIA [id number] [address] [place] [address] [place] Hemoglobin (Bld) [Mass/Vol] 12.0 g/dL Normal 11.5-15.5 [facility] Comment on above: Order Comment: Speci men Type: BLOOD SPECIMEN Ordering Facility: [facility] Address: [address] [place] [address] Performed By: #### 5 7021-8 #### [facility] CLIA [id number] [address] [place] [address] [place] Immature granulocytes (Bld) [#/Vol] 0.04 10*3/uL Normal <0.10 [facility] Comment on above: Order Comment: Speci men Type: BLOOD SPECIMEN Ordering Facility: [facility] Address: [address] [place] [address] Performed By: #### 5 7021-8 #### [facility] CLIA [id number] [address] [place] [address] [place] Immature granulocytes/100 WBC (Bld) 0.5 % Normal [facility] Comment on above: Order Comment: Speci men Type: BLOOD SPECIMEN Ordering Facility: [facility] Address: [address] [place] [address] Performed By: #### 5 7021-8 #### [facility] CLIA [id number] [address] [place] [address] [place] Lymphocytes (Bld) [#/Vol] 0.74 10*3/uL Low 1.00-4.00 [facility] Comment on above: Order Comment: Speci men Type: BLOOD SPECIMEN Ordering Facility: [facility] Address: [address] [place] [address] Performed By: #### 5 7021-8 #### [facility] IA [id number] [address] [place] [address] [place] Lymphocytes/100 WBC (Bld) 8.7 % Normal [facility] Comment on above: Order Comment: Speci men Type: BLOOD SPECIMEN Ordering Facility: [facility] Address: [address] [place] [address] Performed By: #### 5 7021-8 #### [facility] IA [id number] [address] [place] [address] [place] MCH (RBC) [Entitic mass] 29.1 pg Normal 26.0-34.0 [facility] Comment on above: Order Comment: Speci men Type: BLOOD SPECIMEN Ordering Facility: [facility] Address: [address] [place] [address] Performed By: #### 5 7021-8 #### [facility] IA [id number] [address] [place] [address] [place] MCHC (RBC) [Mass/Vol] 31.1 g/dL Normal 30.5-36.0 [facility] Comment on above: Order Comment: Speci men Type: BLOOD SPECIMEN Ordering Facility: [facility] Address: [address] [place] [address] Performed By: #### 5 7021-8 #### [facility] CLIA [id number] [address] [place] [address] [place] MCV (RBC) [Entitic vol] 93.5 fL Normal 80.0-100.0 [facility] Comment on above: Order Comment: Speci men Type: BLOOD SPECIMEN Ordering Facility: [facility] Address: [address] [place] [address] Performed By: #### 5 7021-8 #### [facility] CLIA [id number] [address] [place] [address] [place] Monocytes (Bld) [#/Vol] 0.64 10*3/uL Normal <0.87 [facility] Comment on above: Order Comment: Speci men Type: BLOOD SPECIMEN Ordering Facility: [facility] Address: [address] [place] [address] Performed By: #### 5 7021-8 #### [facility] CLIA [id number] [address] [place] [address] [place] Monocytes/100 WBC (Bld) 7.5 % Normal [facility] Comment on above: Order Comment: Speci men Type: BLOOD SPECIMEN Ordering Facility: [facility] Address: [address] [place] [address] Performed By: #### 5 7021-8 #### [facility] CLIA [id number] [address] [place] [address] [place] Neutrophils (Bld) [#/Vol] 6.92 10*3/uL Normal 1.45-7.50 [facility] Comment on above: Order Comment: Speci men Type: BLOOD SPECIMEN Ordering Facility: [facility] Address: [address] [place] [address] Performed By: #### 5 7021-8 #### [facility] CLIA [id number] [address] [place] [address] [place] Neutrophils/100 WBC (Bld) 81.4 % Normal [facility] Comment on above: Order Comment: Speci men Type: BLOOD SPECIMEN Ordering Facility: [facility] Address: [address] [place] [address] Performed By: #### 5 7021-8 #### [facility] CLIA [id number] [address] [place] [address] [place] Nucleated RBC (Bld) [#/Vol] 10*3/uL Normal <0.01 [facility] Comment on above: Order Comment: Speci men Type: BLOOD SPECIMEN Ordering Facility: [facility] Address: [address] [place] [address] Performed By: #### 5 7021-8 #### [facility] CLIA [id number] [address] [place] [address] [place] Nucleated RBC/100 WBC (Bld) [Ratio] 0.0 /100 WBC Normal [facility] Comment on above: Order Comment: Speci men Type: BLOOD SPECIMEN Ordering Facility: [facility] Address: [address] [place] [address] Performed By: #### 5 7021-8 #### [facility] CLIA [id number] [address] [place] [address] [place] Platelet mean volume (Bld) [Entitic vol] 11.3 fL Normal 9.0-12.7 [facility] Comment on above: Order Comment: Speci men Type: BLOOD SPECIMEN Ordering Facility: [facility] Address: [address] [place] [address] Performed By: #### 5 7021-8 #### [facility] CLIA [id number] [address] [place] [address] [place] Platelets (Bld) [#/Vol] 389 10*3/uL Normal 150-400 [facility] Comment on above: Order Comment: Speci men Type: BLOOD SPECIMEN Ordering Facility: [facility] Address: [address] [place] [address] Performed By: #### 5 7021-8 #### [facility] CLIA [id number] [address] [place] [address] [place] RBC (Bld) [#/Vol] 4.13 10*6/uL Normal 3.90-5.20 [facility] Comment on above: Order Comment: Speci men Type: BLOOD SPECIMEN Ordering Facility: [facility] Address: [address] [place] [address] Performed By: #### 5 7021-8 #### [facility] CLIA [id number] [address] [place] [address] [place] WBC (Bld) [#/Vol] 8.50 10*3/uL Normal 3.70-11.00 [facility] Comment on above: Order Comment: Speci men Type: BLOOD SPECIMEN Ordering Facility: [facility] Address: [address] [place] [address] Performed By: #### 5 7021-8 #### [facility] CLIA [id number] [address] [place] [address] [place] Comprehensive metabolic 2000 panelon 07-08-2023 Albumin [Mass/Vol] 4.0 g/dL Normal 3.9-4.9 [facility] Comment on above: Order Comment: Speci men Type: BLOOD SPECIMEN Ordering Facility: [facility] Address: [address] [place] [address] Performed By: #### 2 4323-8 #### [facility] CLIA [id number] [address] [place] [address] [place] ALP [Catalytic activity/Vol] 125 U/L High 34-123 [facility] Comment on above: Order Comment: Speci men Type: BLOOD SPECIMEN Ordering Facility: [facility] Address: [address] [place] [address] Performed By: #### 2 4323-8 #### [facility] CLIA [id number] [address] [place] [address] [place] ALT [Catalytic activity/Vol] 10 U/L Normal 7-38 [facility] Comment on above: Order Comment: Speci men Type: BLOOD SPECIMEN Ordering Facility: [facility] Address: [address] [place] [address] Performed By: #### 2 4323-8 #### [facility] CLIA [id number] [address] [place] [address] [place] Anion gap [Moles/Vol] 11 mmol/L Normal 9-18 [facility] Comment on above: Order Comment: Speci men Type: BLOOD SPECIMEN Ordering Facility: [facility] Address: [address] [place] [address] Performed By: #### 2 4323-8 #### [facility] CLIA [id number] [address] [place] [address] [place] AST [Catalytic activity/Vol] 36 U/L High 13-35 [facility] Comment on above: Order Comment: Speci men Type: BLOOD SPECIMEN Ordering Facility: [facility] Address: [address] [place] [address] Performed By: #### 2 4323-8 #### [facility] CLIA [id number] [address] [place] [address] [place] Bilirubin [Mass/Vol] 0.3 mg/dL Normal 0.2-1.3 [facility] Comment on above: Order Comment: Speci men Type: BLOOD SPECIMEN Ordering Facility: [facility] Address: [address] [place] [address] Performed By: #### 2 4323-8 #### [facility] CLIA [id number] [address] [place] [address] [place] Calcium [Mass/Vol] 10.0 mg/dL Normal 8.5-10.2 [facility] Comment on above: Order Comment: Speci men Type: BLOOD SPECIMEN Ordering Facility: [facility] Address: [address] [place] [address] Performed By: #### 2 4323-8 #### [facility] CLIA [id number] [address] [place] [address] [place] Chloride [Moles/Vol] 102 mmol/L Normal 97-105 [facility] Comment on above: Order Comment: Speci men Type: BLOOD SPECIMEN Ordering Facility: [facility] Address: [address] [place] [address] Performed By: #### 2 4323-8 #### [facility] CLIA [id number] [address] [place] [address] [place] CO2 [Moles/Vol] 29 mmol/L Normal 22-30 [facility] Comment on above: Order Comment: Speci men Type: BLOOD SPECIMEN Ordering Facility: [facility] Address: [address] [place] [address] Performed By: #### 2 4323-8 #### [facility] CLIA [id number] [address] [place] [address] [place] Creatinine [Mass/Vol] 0.63 mg/dL Normal 0.58-0.96 [facility] Comment on above: Order Comment: Speci men Type: BLOOD SPECIMEN Ordering Facility: [facility] Address: [address] [place] [address] Performed By: #### 2 4323-8 #### [facility] CLIA [id number] [address] [place] [address] [place] Creatinine and Glomerular filtration rate.predicted panel (S/P/Bld) 88 mL/min/1.73m??? Normal >=60 [facility] Comment on above: Order Comment: Speci men Type: BLOOD SPECIMEN Ordering Facility: [facility] Address: [address] [place] [address] Result Comment: Kallie mated Glomerular Filtration Rate [...] GFR. Performed By: #### 2 4323-8 #### [facility] CLIA [id number] [address] [place] [address] [place] Glucose [Mass/Vol] 100 mg/dL High 74-99 [facility] Comment on above: Order Comment: Maryann patel Type: BLOOD SPECIMEN Ordering Facility: [facility] Address: [address] [place] [address] Result Comment: The [place] [employer] (ADA) provides guidance for cutoff [...] Standards of Medical Care in Diabetes 2016, [place] [employer]. Diabetes Care. 2016.39(Suppl 1). Performed By: #### 2 4323-8 #### [facility] CLIA [id number] [address] [place], [place] [address] [place] Potassium [Moles/Vol] 4.5 mmol/L Normal 3.7-5.1 [facility] Comment on above: Order Comment: Maryann patel Type: BLOOD SPECIMEN Ordering Facility: [facility] Address: [address] [place], [place] [address] Performed By: #### 2 4323-8 #### [facility] CLIA [id number] [address] [address] [place] Protein [Mass/Vol] 6.9 g/dL Normal 6.3-8.0 [facility] Comment on above: Order Comment: Maryann patel Type: BLOOD SPECIMEN Ordering Facility: [facility] Address: [address] [place] [address] Performed By: #### 2 4323-8 #### [facility] CLIA [id number] [address] [place] [address] [place] Sodium [Moles/Vol] 142 mmol/L Normal 136-144 [facility] Comment on above: Order Comment: Skipi men Type: BLOOD SPECIMEN Ordering Facility: [facility] Address: [address] [place] [address] Performed By: #### 2 4323-8 #### [facility] CLIA [id number] [address] [place] [address] [place] Urea nitrogen [Mass/Vol] 10 mg/dL Normal 7-21 [facility] Comment on above: Order Comment: Skipi jorge Type: BLOOD SPECIMEN Ordering Facility: [facility] Address: [address] [place] [address] Performed By: #### 2 4323-8 #### [facility] CLIA [id number] [address] [place] [address] [place] BLOOD TB SCREENon 04-14-2023 M. tuberculosis tuberculin stim IFN-g Ql (Bld) Negative Normal [facility] Comment on above: Order Comment: Maryann patel Type: BLOOD SPECIMEN Ordering Facility: [facility] Address: [address] [place] [address] Performed By: #### I NFTBP #### [facility] CLIA [id number] [address] [place] [address] [place] MITOGEN MINUS NIL 2.59 IU/mL Normal >=0.50 [facility] Comment on above: Order Comment: Maryann patel Type: BLOOD SPECIMEN Ordering Facility: [facility] Address: [address] [place] [address] Performed By: #### I NFTBP #### [facility] CLIA [id number] [address] [place] [address] [place] TB GAMMA INTERPRETATION Infection with M. tuberculosis complex is unlikely. If latent tuberculosis infection is highly suspected, a negative result does not rule out the infection. Specimens from immunocompromised patients and those <5 years of age may show false negative results. In case of a contact investigation, please repeat 8-12 weeks after a known exposure. Normal [facility] Comment on above: Order Comment: Speci men Type: BLOOD SPECIMEN Ordering Facility: [facility] Address: [address] [place] [address] Performed By: #### I NFTBP #### [facility] CLIA [id number] [address] [place] [address] [place] TB NIL 0.09 IU/mL Normal <=8.00 [facility] Comment on above: Order Comment: Speci men Type: BLOOD SPECIMEN Ordering Facility: [facility] Address: [address] [place] [address] Performed By: #### I NFTBP #### [facility] CLIA [id number] [address] [place] [address] [place] TB1 AG MINUS NIL <0.00 Normal <0.35 [facility] Comment on above: Order Comment: Speci men Type: BLOOD SPECIMEN Ordering Facility: [facility] Address: [address] [place] [address] Performed By: #### I NFTBP #### [facility] CLIA [id number] [address] [place] [address] [place] TB2 AG MINUS NIL <0.00 Normal <0.35 [facility] Comment on above: Order Comment: Speci men Type: BLOOD SPECIMEN Ordering Facility: [facility] Address: [address] [place] [address] Performed By: #### I NFTBP #### [facility] CLIA [id number] [address] [place] [address] [place] CBC W Auto Differential pane l (Bld)on 04-07-2023 Anisocytosis Ql (Bld) Present Normal [facility] Comment on above: Order Comment: Specpatrick patel Type: BLOOD SPECIMEN Ordering Facility: [facility] Address: [address] [place] [address] Performed By: #### 5 7021-8 #### [facility] CLIA [id number] [address] [place] [address] [place] Basophils (Bld) [#/Vol] 0.18 10*3/uL High <0.11 [facility] Comment on above: Order Comment: Maryann patel Type: BLOOD SPECIMEN Ordering Facility: [facility] Address: [address] [place] [address] Performed By: #### 5 7021-8 #### [facility] CLIA [id number] [address] [place] [address] [place] Basophils/100 WBC (Bld) 1.7 % Normal [facility] Comment on above: Order Comment: Maryann patel Type: BLOOD SPECIMEN Ordering Facility: [facility] Address: [address] [place] [address] Performed By: #### 5 7021-8 #### [facility] CLIA [id number] [address] [place] [address] [place] Differential cell count method Nom (Bld) Manual Normal [facility] Comment on above: Order Comment: Skipi jorge Type: BLOOD SPECIMEN Ordering Facility: [facility] Address: [address] [place] [address] Performed By: #### 5 7021-8 #### [facility] CLIA [id number] [address] [place] [address] [place] Eosinophils (Bld) [#/Vol] 0.09 10*3/uL Normal <0.46 [facility] Comment on above: Order Comment: Skipi men Type: BLOOD SPECIMEN Ordering Facility: [facility] Address: [address] [place] [address] Performed By: #### 5 7021-8 #### [facility] CLIA [id number] [address] [place] [address] [place] Eosinophils/100 WBC (Bld) 0.9 % Normal [facility] Comment on above: Order Comment: Speci men Type: BLOOD SPECIMEN Ordering Facility: [facility] Address: [address] [place] [address] Performed By: #### 5 7021-8 #### [facility] CLIA [id number] [address] [place] [address] [place] Erythrocyte distribution width (RBC) [Ratio] 15.4 % High 11.5-15.0 [facility] Comment on above: Order Comment: Speci men Type: BLOOD SPECIMEN Ordering Facility: [facility] Address: [address] [place] [address] Performed By: #### 5 7021-8 #### [facility] CLIA [id number] [address] [place] [address] [place] Hematocrit (Bld) [Volume fraction] 39.6 % Normal 36.0-46.0 [facility] Comment on above: Order Comment: Speci men Type: BLOOD SPECIMEN Ordering Facility: [facility] Address: [address] [place] [address] Performed By: #### 5 7021-8 #### [facility] CLIA [id number] [address] [place] [address] [place] Hemoglobin (Bld) [Mass/Vol] 12.0 g/dL Normal 11.5-15.5 [facility] Comment on above: Order Comment: Speci men Type: BLOOD SPECIMEN Ordering Facility: [facility] Address: [address] [place] [address] Performed By: #### 5 7021-8 #### [facility] CLIA [id number] [address] [place] [address] [place] Lymphocytes (Bld) [#/Vol] 2.23 10*3/uL Normal 1.00-4.00 [facility] Comment on above: Order Comment: Speci men Type: BLOOD SPECIMEN Ordering Facility: [facility] Address: [address] [place] [address] Performed By: #### 5 7021-8 #### [facility] CLIA [id number] [address] [place] [address] [place] Lymphocytes/100 WBC (Bld) 21.6 % Normal [facility] Comment on above: Order Comment: Speci men Type: BLOOD SPECIMEN Ordering Facility: [facility] Address: [address] [place] [address] Performed By: #### 5 7021-8 #### [facility] CLIA [id number] [address] [place] [address] [place] MCH (RBC) [Entitic mass] 29.9 pg Normal 26.0-34.0 [facility] Comment on above: Order Comment: Speci men Type: BLOOD SPECIMEN Ordering Facility: [facility] Address: [address] [place] [address] Performed By: #### 5 7021-8 #### [facility] CLIA [id number] [address] [place] [address] [place] MCHC (RBC) [Mass/Vol] 30.3 g/dL Low 30.5-36.0 [facility] Comment on above: Order Comment: Speci men Type: BLOOD SPECIMEN Ordering Facility: [facility] Address: [address] [place] [address] Performed By: #### 5 7021-8 #### [facility] CLIA [id number] [address] [place] [address] [place] MCV (RBC) [Entitic vol] 98.8 fL Normal 80.0-100.0 [facility] Comment on above: Order Comment: Speci men Type: BLOOD SPECIMEN Ordering Facility: [facility] Address: [address] [place] [address] Performed By: #### 5 7021-8 #### [facility] CLIA [id number] [address] [place] [address] [place] Monocytes (Bld) [#/Vol] 1.96 10*3/uL High <0.87 [facility] Comment on above: Order Comment: Speci men Type: BLOOD SPECIMEN Ordering Facility: [facility] Address: [address] [place] [address] Performed By: #### 5 7021-8 #### [facility] CLIA [id number] [address] [place] [address] [place] Monocytes/100 WBC (Bld) 19.0 % Normal [facility] Comment on above: Order Comment: Speci men Type: BLOOD SPECIMEN Ordering Facility: [facility] Address: [address] [place] [address] Performed By: #### 5 7021-8 #### [facility] CLIA [id number] [address] [place] [address] [place] Neutrophils (Bld) [#/Vol] 5.87 10*3/uL Normal 1.45-7.50 [facility] Comment on above: Order Comment: Speci men Type: BLOOD SPECIMEN Ordering Facility: [facility] Address: [address] [place] [address] Performed By: #### 5 7021-8 #### [facility] CLIA [id number] [address] [place] [address] [place] Neutrophils/100 WBC (Bld) 56.8 % Normal [facility] Comment on above: Order Comment: Speci men Type: BLOOD SPECIMEN Ordering Facility: [facility] Address: [address] [place] [address] Performed By: #### 5 7021-8 #### [facility] CLIA [id number] [address] [place] [address] [place] Nucleated RBC (Bld) [#/Vol] 10*3/uL Normal <0.01 [facility] Comment on above: Order Comment: Speci men Type: BLOOD SPECIMEN Ordering Facility: [facility] Address: [address] [place] [address] Performed By: #### 5 7021-8 #### [facility] CLIA [id number] [address] [place] [address] [place] Nucleated RBC/100 WBC (Bld) [Ratio] 0.0 /100 WBC Normal [facility] Comment on above: Order Comment: Skipi men Type: BLOOD SPECIMEN Ordering Facility: [facility] Address: [address] [place] [address] Performed By: #### 5 7021-8 #### [facility] CLIA [id number] [address] [place] [address] [place] Ovalocytes LM Ql (Bld) Few Normal [facility] Comment on above: Order Comment: Skipi men Type: BLOOD SPECIMEN Ordering Facility: [facility] Address: [address] [place] [address] Performed By: #### 5 7021-8 #### [facility] CLIA [id number] [address] [place] [address] [place] Platelet mean volume (Bld) [Entitic vol] 11.7 fL Normal 9.0-12.7 [facility] Comment on above: Order Comment: Speci men Type: BLOOD SPECIMEN Ordering Facility: [facility] Address: [address] [place] [address] Performed By: #### 5 7021-8 #### [facility] CLIA [id number] [address] [place] [address] [place] Platelets (Bld) [#/Vol] 468 10*3/uL High 150-400 [facility] Comment on above: Order Comment: Speci men Type: BLOOD SPECIMEN Ordering Facility: [facility] Address: [address] [place] [address] Performed By: #### 5 7021-8 #### [facility] CLIA [id number] [address] [place] [address] [place] Platelets Estimate (Bld) [#/Vol] Increased Normal [facility] Comment on above: Order Comment: Speci men Type: BLOOD SPECIMEN Ordering Facility: [facility] Address: [address] [place] [address] Performed By: #### 5 7021-8 #### [facility] CLIA [id number] [address] [place] [address] [place] Polychromasia LM Ql (Bld) Slight Normal [facility] Comment on above: Order Comment: Speci men Type: BLOOD SPECIMEN Ordering Facility: [facility] Address: [address] [place] [address] Performed By: #### 5 7021-8 #### [facility] CLIA [id number] [address] [place] [address] [place] RBC (Bld) [#/Vol] 4.01 10*6/uL Normal 3.90-5.20 [facility] Comment on above: Order Comment: Speci men Type: BLOOD SPECIMEN Ordering Facility: [facility] Address: [address] [place] [address] Performed By: #### 5 7021-8 #### [facility] CLIA [id number] [address] [place] [address] [place] RED CELL MORPH Reviewed: see result s of individual morphologies Normal [facility] Comment on above: Order Comment: Speci men Type: BLOOD SPECIMEN Ordering Facility: [facility] Address: [address] [place] [address] Performed By: #### 5 7021-8 #### [facility] CLIA [id number] [address] [place] [address] [place] WBC (Bld) [#/Vol] 10.34 10*3/uL Normal 3.70-11.00 [facility] Comment on above: Order Comment: Speci men Type: BLOOD SPECIMEN Ordering Facility: [facility] Address: [address] [place] [address] Performed By: #### 5 7021-8 #### [facility] CLIA [id number] [address] [place] [address] [place] Comprehensive metabolic 2000 panelon 04-07-2023 Albumin [Mass/Vol] 3.8 g/dL Low 3.9-4.9 [facility] Comment on above: Order Comment: Speci men Type: BLOOD SPECIMEN Ordering Facility: [facility] Address: [address] [place] [address] Performed By: #### 2 4323-8 #### [facility] CLIA [id number] [address] [place] [address] [place] ALP [Catalytic activity/Vol] 121 U/L Normal 34-123 [facility] Comment on above: Order Comment: Speci men Type: BLOOD SPECIMEN Ordering Facility: [facility] Address: [address] [place] [address] Performed By: #### 2 4323-8 #### [facility] CLIA [id number] [address] [place] [address] [place] ALT [Catalytic activity/Vol] 10 U/L Normal 7-38 [facility] Comment on above: Order Comment: Speci men Type: BLOOD SPECIMEN Ordering Facility: [facility] Address: [address] [place] [address] Performed By: #### 2 4323-8 #### [facility] CLIA [id number] [address] [place] [address] [place] Anion gap [Moles/Vol] 14 mmol/L Normal 9-18 [facility] Comment on above: Order Comment: Speci men Type: BLOOD SPECIMEN Ordering Facility: [facility] Address: [address] [place] [address] Performed By: #### 2 4323-8 #### [facility] CLIA [id number] [address] [place] [address] [place] AST [Catalytic activity/Vol] 28 U/L Normal 13-35 [facility] Comment on above: Order Comment: Speci men Type: BLOOD SPECIMEN Ordering Facility: [facility] Address: [address] [place] [address] Performed By: #### 2 4323-8 #### [facility] CLIA [id number] [address] [place] [address] [place] Bilirubin [Mass/Vol] 0.4 mg/dL Normal 0.2-1.3 [facility] Comment on above: Order Comment: Speci men Type: BLOOD SPECIMEN Ordering Facility: [facility] Address: [address] [place] [address] Performed By: #### 2 4323-8 #### [facility] CLIA [id number] [address] [place] [address] [place] Calcium [Mass/Vol] 10.2 mg/dL Normal 8.5-10.2 [facility] Comment on above: Order Comment: Speci men Type: BLOOD SPECIMEN Ordering Facility: [facility] Address: [address] [place] [address] Performed By: #### 2 4323-8 #### [facility] CLIA [id number] [address] [place] [address] [place] Chloride [Moles/Vol] 103 mmol/L Normal 97-105 [facility] Comment on above: Order Comment: Speci men Type: BLOOD SPECIMEN Ordering Facility: [facility] Address: [address] [place], [place] [address] Performed By: #### 2 4323-8 #### [facility] CLIA [id number] [address] [place] [address] [place] CO2 [Moles/Vol] 25 mmol/L Normal 22-30 [facility] Comment on above: Order Comment: Speci men Type: BLOOD SPECIMEN Ordering Facility: [facility] Address: [address] [place] [address] Performed By: #### 2 4323-8 #### [facility] CLIA [id number] [address] [place] [address] [place] Creatinine [Mass/Vol] 0.71 mg/dL Normal 0.58-0.96 [facility] Comment on above: Order Comment: Speci men Type: BLOOD SPECIMEN Ordering Facility: [facility] Address: [address] [place] [address] Performed By: #### 2 4323-8 #### [facility] CLIA [id number] [address] [place] [address] [place] Creatinine and Glomerular filtration rate.predicted panel (S/P/Bld) 84 mL/min/1.73m??? Normal >=60 [facility] Comment on above: Order Comment: Speci men Type: BLOOD SPECIMEN Ordering Facility: [facility] Address: [address] [place] [address] Result Comment: Kallie mated Glomerular Filtration Rate [...] GFR. Performed By: #### 2 4323-8 #### [facility] CLIA [id number] [address] [place] [address] [place] Glucose [Mass/Vol] 92 mg/dL Normal 74-99 [facility] Comment on above: Order Comment: Speci men Type: BLOOD SPECIMEN Ordering Facility: [facility] Address: [address] [place] [address] Result Comment: The [place] [employer] (ADA) provides guidance for cutoff [...] Standards of Medical Care in Diabetes 2016, [place] [employer]. Diabetes Care. 2016.39(Suppl 1). Performed By: #### 2 4323-8 #### [facility] CLIA [id number] [address] [place] [address] [place] Potassium [Moles/Vol] 4.2 mmol/L Normal 3.7-5.1 [facility] Comment on above: Order Comment: Speci men Type: BLOOD SPECIMEN Ordering Facility: [facility] Address: [address] [place] [address] Performed By: #### 2 432-8 #### [facility] CLIA [id number] [address] [place] [address] [place] Protein [Mass/Vol] 7.3 g/dL Normal 6.3-8.0 [facility] Comment on above: Order Comment: Speci men Type: BLOOD SPECIMEN Ordering Facility: [facility] Address: [address] [place] [address] Performed By: #### 2 4323-8 #### [facility] CLIA [id number] [address] [place] [address] [place] Sodium [Moles/Vol] 142 mmol/L Normal 136-144 [facility] Comment on above: Order Comment: Speci men Type: BLOOD SPECIMEN Ordering Facility: [facility] Address: [address] [place] [address] Performed By: #### 2 4323-8 #### [facility] CLIA [id number] [address] [place] Urea nitrogen [Mass/Vol] 14 mg/dL Normal 7-21 [facility] Comment on above: Order Comment: Speci men Type: BLOOD SPECIMEN Ordering Facility: [facility] Address: [address] [place] [address] Performed By: #### 2 4323-8 #### [facility] CLIA [id number] [address] [place] [address] [place] [address] [place] CHEST 1 VIEWon 03-31-2023 CHEST 1 VIEW [place] [address] Patient: HUYEN VALERIO I. Phone#: : 1940 Age: 82 Gender: F Pt. Type: Out Account: [id number] Location: [facility] Ordering: NORA LEMUS Exam Date: 03/31/2023/16:50 Family Phys: KIYA GIBBONSER Charge Code: [id number] Physician: [place] Order #: [id number] Dose#: PROCEDURE: X-RAY CHEST 1 VIEW COMPARISON: [facility], , CHEST 2 VIEWS, 03/13/2023, 11:20. [...] Gan MD on 03/31/2023 at 17:59 Normal [facility] CHEST 2 VIEWSon 03-31-2023 CHEST 2 VIEWS [place] [id number] Patient: HUYEN VALERIO I. Phone#: : 1940 Age: 82 Gender: F Pt. Type: Out Account: [id number] Location: [facility] Ordering: NORA LEMUS Exam Date: 03/31/2023/20:55 Family Phys: KIYA SALAZAR Charge Code: [id number] Physician: [place] Order #: [id number] Dose#: PROCEDURE: X-RAY CHEST 2 VIEWS COMPARISON: [facility], XR, CHEST 1 VIEW, 03/31/2023, 16:50. [...] Gan MD on 04/01/2023 at 8:55 Normal [facility] HEMATOCRITon 03-31-2023 Hematocrit (Bld) [Volume fraction] 37.3 % Normal 34.0 - 46.0 [facility] Comment on above: Result Comment: {HH] Performed By: #### 2 [id number] #### [facility],[address] [place] [address] HEMOGLOBINon 03-31-2023 Hemoglobin (Bld) [Mass/Vol] 11.7 g/dL Low 12.0 - 16.0 [facility] Comment on above: Result Comment: {HH] Performed By: #### 2 42165 #### [facility],[address] [place], [place] [id number] CBC + DIFFon 03-13-2023 Baso # 0.10 [id number]/UL Normal 0.00 - 0.10 [facility] Comment on above: Performed By: #### 2 11574 #### [facility],[address] [place] [address] Basophils/100 WBC (Bld) 0.6 % Normal 0.0 - 2.0 [facility] Comment on above: Performed By: #### 2 91803 #### [facility],[address] [place] [address] CBC + DIFF Normal [facility] Comment on above: Result Comment: CBC- COMPLETE BLOOD COUNT Performed By: #### 2 40771 #### [place] [address] EO # 0.10 x10EE3/UL Normal 0.00 - 0.50 [facility] Comment on above: Performed By: #### 2 12635 #### [place] [address] Eosinophils/100 WBC (Bld) 1.4 % Normal 0.0 - 7.0 [facility] Comment on above: Performed By: #### 2 32813 #### [place] [address] Erythrocyte distribution width (RBC) [Ratio] 18.5 % High 12.0 - 15.6 [facility] Comment on above: Performed By: #### 2 53447 #### [facility],[address] [place] [address] Hematocrit (Bld) [Volume fraction] 35.4 % Normal 34.0 - 46.0 [facility] Comment on above: Performed By: #### 2 84652 #### [facility],[address] [place] [address] Hemoglobin (Bld) [Mass/Vol] 11.1 g/dL Low 12.0 - 16.0 [facility] Comment on above: Performed By: #### 2 05741 #### [facility],[address] [place] [address] Lymph # 0.80 x10EE3/UL Normal 0.80 - 2.80 [facility] Comment on above: Performed By: #### 2 32338 #### [facility],[address] [place] [address] Lymphocytes/100 WBC (Bld) 8.0 % Low 20.0 - 45.0 [facility] Comment on above: Performed By: #### 2 61229 #### [facility],[address] [place] [address] MANUAL DIFF N/A Normal [facility] Comment on above: Performed By: #### 2 92200 #### [facility],[address] [place] [address] MCH (RBC) [Entitic mass] 31 pg Normal 27 - 33 [facility] Comment on above: Performed By: #### 2 25405 #### [facility],[address] [place] [address] MCHC 32 X10 3 Normal 32 - 36 [facility] Comment on above: Performed By: #### 2 19935 #### [facility],[address] [place] [address] MCV (RBC) [Entitic vol] 97 fL Normal 80 - 99 [facility] Comment on above: Performed By: #### 2 90756 #### [facility],[address] [place] [address] [place] # 1.10 x10EE3/UL High 0.20 - 1.00 [facility] Comment on above: Performed By: #### 2 22712 #### [facility],[address] [place] [address] MONOS % 11.6 % High 0.0 - 10.0 [facility] Comment on above: Performed By: #### 2 74402 #### [facility],[address] [place], [place] [address] Morphology Sukhwinder (Bld) [Interp] N/A Normal [facility] Comment on above: Performed By: #### 2 66562 #### [facility],[address] [place] [address] Neut # 7.50 x10EE3/UL High 1.50 - 7.10 [facility] Comment on above: Performed By: #### 2 24756 #### [address] [address] Neutrophils/100 WBC (Bld) 78.4 % High 46.0 - 76.0 [facility] Comment on above: Performed By: #### 2 75106 #### [facility],[address] [place] [address] PLATELET 460 x10EE3/UL High 150 - 450 [facility] Comment on above: Performed By: #### 2 42645 #### [facility],[address] [place] [address] Platelet mean volume (Bld) [Entitic vol] 9.3 fL Normal 6.6 - 10.5 [facility] Comment on above: Result Comment: AUTO MATED DIFFERENTIAL Performed By: #### 2 59002 #### [address] [address] RBC 3.65 x 10EE6/UL Low 4.10 - 5.30 [facility] Comment on above: Performed By: #### 2 90306 #### [facility],[address] [place] [address]259 WBC 9.6 x 10EE3/UL Normal 4.5 - 10.8 [facility] Comment on above: Performed By: #### 2 41672 #### [facility],[address] [place] [address] CHEST 2 VIEWSon 03-13-2023 CHEST 2 VIEWS [place] [address] Patient: HUYEN VALERIO I. Phone#: : 1940 Age: 82 Gender: F Pt. Type: Out Account: [id number] Location: 2 Ordering: NORA LEMUS Exam Date: 03/13/2023/11:20 Family Phys: MILAGROS HUNTER Charge Code: 726212 Physician: [place] Order #: [id number] Dose#: PROCEDURE: X-RAY CHEST 2 VIEWS COMPARISON: [facility], XR, CHEST 2 VIEWS, 06/24/2018, 14:42. [...] Gan MD on 03/13/2023 at 11:47 Normal [facility] CMP with eGFRon 03-13-2023 AGE 82 years Normal [facility] Comment on above: Performed By: #### 2 93216 #### [facility],[address] [place] [address]50 Albumin [Mass/Vol] 3.4 g/dL Normal 3.4 - 5.0 [facility] Comment on above: Performed By: #### 2 76654 #### [facility],[address] [place] [address]60 Albumin/Globulin [Mass ratio] 1.0 {ratio} Normal 0.9 - 1.6 [facility] Comment on above: Performed By: #### 2 21269 #### [facility],[address] [place] [address] ALK PHOS 120 U/L High 46 - 116 [facility] Comment on above: Performed By: #### 2 43827 #### [facility],[address] [place] [address]1314 ALT [Catalytic activity/Vol] 20 U/L Normal 14 - 59 [facility] Comment on above: Performed By: #### 2 40148 #### [facility],[address] [place] [address] Anion gap [Moles/Vol] 14 mmol/L Normal 10 - 20 [facility] Comment on above: Performed By: #### 2 35179 #### [facility],[address] [place] [address]605 AST [Catalytic activity/Vol] 39 U/L Normal 13 - 39 [facility] Comment on above: Performed By: #### 2 39594 #### [facility],[address] [place] [address] 67811 B/C RATIO 24 ratio Normal 0 - 30 [facility] Comment on above: Performed By: #### 2 24130 #### [facility],[address] [place] [address]77 Bilirubin [Mass/Vol] 0.3 mg/dL Normal 0.2 - 1.0 [facility] Comment on above: Performed By: #### 2 60749 #### [facility],[address] [place] [address]203 Calcium [Mass/Vol] 9.1 mg/dL Normal 8.5 - 10.1 [facility] Comment on above: Performed By: #### 2 37636 #### [facility],[address] [place] [address] 90770 Chloride [Moles/Vol] 107 mmol/L Normal 98 - 107 [facility] Comment on above: Performed By: #### 2 90263 #### [facility],[address] [place] [address] 09180 CMP with eGFR Normal [facility] Comment on above: Result Comment: COMP REHENSIVE METABOLIC PANEL Performed By: #### 2 50628 #### [facility],[address] [place] [address] 39841 CO2 [Moles/Vol] 28.0 mmol/L Normal 21.0 - 32.0 [facility] Comment on above: Performed By: #### 2 92016 #### [facility],[address] [place] [address]405 Creatinine [Mass/Vol] 0.66 mg/dL Normal 0.55 - 1.02 [facility] Comment on above: Performed By: #### 2 34858 #### [facility],[address] [place] [address]604 GFR/1.73 sq M.predicted among non-blacks MDRD (S/P/Bld) [Vol rate/Area] mL/min/{1.73_m2} Normal 60 - 999 [facility] Comment on above: Performed By: #### 2 52801 #### [facility],[address] [place] [address] Result Comment: ACCO RDING TO THE NATIONAL KIDNEY DISEASE EDUCATION PROGRAM(NKDE), A NORMAL eGFR IS A VALUE GREATER THAN OR EQUAL TO 60 ML/MIN/1.73 SQ METERS. CHRONIC KIDNEY DISEASE: <60mL/MIN/1.73 SQ METERS KIDNEY FAILURE: <15mL/MIN/1.73 SQ METERS THIS TEST SHOULD ONLY BE USED FOR PATIENTS 18 YEARS OF AGE AND OLDER. Globulin (S) [Mass/Vol] 3.3 g/dL Normal 1.5 - 3.8 [facility] Comment on above: Performed By: #### 2 61445 #### [facility],[address] [place] [address] 27471 Glucose [Mass/Vol] 102 mg/dL Normal 74 - 106 [facility] Comment on above: Performed By: #### 2 45119 #### [facility],[address] [place] [address] 33471 Potassium [Moles/Vol] 4.2 mmol/L Normal 3.5 - 5.1 [facility] Comment on above: Performed By: #### 2 79061 #### [address] [address] Protein [Mass/Vol] 6.7 g/dL Normal 6.4 - 8.2 [facility] Comment on above: Performed By: #### 2 49439 #### [facility],[address] [place] [address] 86676 Sodium [Moles/Vol] 145 mmol/L Normal 136 - 145 [facility] Comment on above: Performed By: #### 2 47115 #### [place] [id number] Urea nitrogen [Mass/Vol] 16 mg/dL Normal 7 - 18 [facility] Comment on above: Performed By: #### 2 51280 #### [facility],[address] [place], [place] [address] CBC W Auto Differential pane l (Bld)on 12-30-2022 Basophils (Bld) [#/Vol] 0.06 10*3/uL Normal <0.11 [facility] Comment on above: Order Comment: Speci men Type: BLOOD SPECIMEN Ordering Facility: [facility] Address: [address] [place] [address] Performed By: #### 5 7021-8 #### [facility] CLIA [id number] [address] [place] [address] [place] Basophils/100 WBC (Bld) 0.4 % Normal [facility] Comment on above: Order Comment: Speci men Type: BLOOD SPECIMEN Ordering Facility: [facility] Address: [address] [place] [address] Performed By: #### 5 7021-8 #### [facility] CLIA [id number] [address] [place] [address] [place] Differential cell count method Nom (Bld) Auto Normal [facility] Comment on above: Order Comment: Speci men Type: BLOOD SPECIMEN Ordering Facility: [facility] Address: [address] [place] [address] Performed By: #### 5 7021-8 #### [facility] CLIA [id number] [address] [place] [address] [place] Eosinophils (Bld) [#/Vol] 0.08 10*3/uL Normal <0.46 [facility] Comment on above: Order Comment: Speci men Type: BLOOD SPECIMEN Ordering Facility: [facility] Address: [address] [place] [address] Performed By: #### 5 7021-8 #### [facility] CLIA [id number] [address] [place] [address] [place] Eosinophils/100 WBC (Bld) 0.5 % Normal [facility] Comment on above: Order Comment: Speci men Type: BLOOD SPECIMEN Ordering Facility: [facility] Address: [address] [place] [address] Performed By: #### 5 7021-8 #### [facility] CLIA [id number] [address] [place] [address] [place] Erythrocyte distribution width (RBC) [Ratio] 15.9 % High 11.5-15.0 [facility] Comment on above: Order Comment: Speci men Type: BLOOD SPECIMEN Ordering Facility: [facility] Address: [address] [place] [address] Performed By: #### 5 7021-8 #### [facility] CLIA [id number] [address] [place] [address] [place] Hematocrit (Bld) [Volume fraction] 37.0 % Normal 36.0-46.0 [facility] Comment on above: Order Comment: Speci men Type: BLOOD SPECIMEN Ordering Facility: [facility] Address: [address] [place] [address] Performed By: #### 5 7021-8 #### [facility] CLIA [id number] [address] [place] [address] [place] Hemoglobin (Bld) [Mass/Vol] 11.4 g/dL Low 11.5-15.5 [facility] Comment on above: Order Comment: Speci men Type: BLOOD SPECIMEN Ordering Facility: [facility] Address: [address] [place] [address] Performed By: #### 5 7021-8 #### [facility] CLIA [id number] [address] [place] [address] [place] Immature granulocytes (Bld) [#/Vol] 0.20 10*3/uL High <0.10 [facility] Comment on above: Order Comment: Speci men Type: BLOOD SPECIMEN Ordering Facility: [facility] Address: [address] [place] [address] Performed By: #### 5 7021-8 #### [facility] CLIA [id number] [address] [place] [address] [place] Immature granulocytes/100 WBC (Bld) 1.2 % Normal [facility] Comment on above: Order Comment: Speci men Type: BLOOD SPECIMEN Ordering Facility: [facility] Address: [address] [place] [address] Performed By: #### 5 7021-8 #### [facility] CLIA [id number] [address] [place] [address] [place] Lymphocytes (Bld) [#/Vol] 1.54 10*3/uL Normal 1.00-4.00 [facility] Comment on above: Order Comment: Speci men Type: BLOOD SPECIMEN Ordering Facility: [facility] Address: [address] [place] [address] Performed By: #### 5 7021-8 #### [facility] CLIA [id number] [address] [place] [address] [place] Lymphocytes/100 WBC (Bld) 9.0 % Normal [facility] Comment on above: Order Comment: Speci men Type: BLOOD SPECIMEN Ordering Facility: [facility] Address: [address] [place] [address] Performed By: #### 5 7021-8 #### [facility] CLIA [id number] [address] [place] [address] [place] MCH (RBC) [Entitic mass] 28.9 pg Normal 26.0-34.0 [facility] Comment on above: Order Comment: Speci men Type: BLOOD SPECIMEN Ordering Facility: [facility] Address: [address] [place] [address] Performed By: #### 5 7021-8 #### [facility] CLIA [id number] [address] [place] [address] [place] MCHC (RBC) [Mass/Vol] 30.8 g/dL Normal 30.5-36.0 [facility] Comment on above: Order Comment: Speci men Type: BLOOD SPECIMEN Ordering Facility: [facility] Address: [address] [place] [address] Performed By: #### 5 7021-8 #### [facility] CLIA [id number] [address] [place] [address] [place] MCV (RBC) [Entitic vol] 93.7 fL Normal 80.0-100.0 [facility] Comment on above: Order Comment: Speci men Type: BLOOD SPECIMEN Ordering Facility: [facility] Address: [address] [place] [address] Performed By: #### 5 7021-8 #### [facility] CLIA [id number] [address] [place] [address] [place] Monocytes (Bld) [#/Vol] 0.81 10*3/uL Normal <0.87 [facility] Comment on above: Order Comment: Speci men Type: BLOOD SPECIMEN Ordering Facility: [facility] Address: [address] [place] [address] Performed By: #### 5 7021-8 #### [facility] CLIA [id number] [address] [place], [place] [address] [place] Monocytes/100 WBC (Bld) 4.7 % Normal [facility] Comment on above: Order Comment: Speci men Type: BLOOD SPECIMEN Ordering Facility: [facility] Address: [address] [place] [address] Performed By: #### 5 7021-8 #### [facility] CLIA [id number] [address] [place] [address] [place] Neutrophils (Bld) [#/Vol] 14.40 10*3/uL High 1.45-7.50 [facility] Comment on above: Order Comment: Speci men Type: BLOOD SPECIMEN Ordering Facility: [facility] Address: [address] [place] [address] Performed By: #### 5 7021-8 #### [facility] CLIA [id number] [address] [place] [address] [place] Neutrophils/100 WBC (Bld) 84.2 % Normal [facility] Comment on above: Order Comment: Speci men Type: BLOOD SPECIMEN Ordering Facility: [facility] Address: [address] [place] [address] Performed By: #### 5 7021-8 #### [facility] CLIA [id number] [address] [place] [address] [place] Nucleated RBC (Bld) [#/Vol] 10*3/uL Normal <0.01 [facility] Comment on above: Order Comment: Speci men Type: BLOOD SPECIMEN Ordering Facility: [facility] Address: [address] [place] [address] Performed By: #### 5 7021-8 #### [facility] CLIA [id number] [address] [place] [address] [place] Nucleated RBC/100 WBC (Bld) [Ratio] 0.0 /100 WBC Normal [facility] Comment on above: Order Comment: Speci men Type: BLOOD SPECIMEN Ordering Facility: [facility] Address: [address] [place] [address] Performed By: #### 5 7021-8 #### [facility] CLIA [id number] [address] [place] [address] [place] Platelet mean volume (Bld) [Entitic vol] 10.7 fL Normal 9.0-12.7 [facility] Comment on above: Order Comment: Speci men Type: BLOOD SPECIMEN Ordering Facility: [facility] Address: [address] [place] [address] Performed By: #### 5 7021-8 #### [facility] CLIA [id number] [address] [place] [address] [place] Platelets (Bld) [#/Vol] 722 10*3/uL High 150-400 [facility] Comment on above: Order Comment: Speci men Type: BLOOD SPECIMEN Ordering Facility: [facility] Address: [address] [place] [address] Performed By: #### 5 7021-8 #### [facility] CLIA [id number] [address] [place] [address] [place] RBC (Bld) [#/Vol] 3.95 10*6/uL Normal 3.90-5.20 [facility] Comment on above: Order Comment: Speci men Type: BLOOD SPECIMEN Ordering Facility: [facility] Address: [address] [place] [address] Performed By: #### 5 7021-8 #### [facility] CLIA [id number] [address] [place] [address] [place] WBC (Bld) [#/Vol] 17.09 10*3/uL High 3.70-11.00 [facility] Comment on above: Order Comment: Speci men Type: BLOOD SPECIMEN Ordering Facility: [facility] Address: [address] [place] [address] Performed By: #### 5 7021-8 #### [facility] CLIA [id number] [address] [place] [address] [place] Comprehensive metabolic 2000 panelon 12-30-2022 Albumin [Mass/Vol] 3.9 g/dL Normal 3.9-4.9 [facility] Comment on above: Order Comment: Speci men Type: BLOOD SPECIMEN Ordering Facility: [facility] Address: [address] [place] [address] Performed By: #### 2 4323-8 #### [facility] CLIA [id number] [address] [place] [address] [place] ALP [Catalytic activity/Vol] 206 U/L High 34-123 [facility] Comment on above: Order Comment: Speci men Type: BLOOD SPECIMEN Ordering Facility: [facility] Address: [address] [place] [address] Performed By: #### 2 4323-8 #### [facility] CLIA [id number] [address] [place] [address] [place] ALT [Catalytic activity/Vol] 14 U/L Normal 7-38 [facility] Comment on above: Order Comment: Speci men Type: BLOOD SPECIMEN Ordering Facility: [facility] Address: [address] [place] [address] Performed By: #### 2 4323-8 #### [facility] CLIA [id number] [address] [place] [address] [place] Anion gap [Moles/Vol] 12 mmol/L Normal 9-18 [facility] Comment on above: Order Comment: Speci men Type: BLOOD SPECIMEN Ordering Facility: [facility] Address: [address] [place], [place] [address] Performed By: #### 2 4323-8 #### [facility] CLIA [id number] [address] [place] [address] [place] AST [Catalytic activity/Vol] 35 U/L Normal 13-35 [facility] Comment on above: Order Comment: Speci men Type: BLOOD SPECIMEN Ordering Facility: [facility] Address: [address] [place] [address] Performed By: #### 2 4323-8 #### [facility] CLIA [id number] [address] [place] [address] [place] Bilirubin [Mass/Vol] 0.5 mg/dL Normal 0.2-1.3 [facility] Comment on above: Order Comment: Speci men Type: BLOOD SPECIMEN Ordering Facility: [facility] Address: [address] [place] [address] Performed By: #### 2 4323-8 #### [facility] CLIA [id number] [address] [place] [address] [place] Calcium [Mass/Vol] 10.1 mg/dL Normal 8.5-10.2 [facility] Comment on above: Order Comment: Speci men Type: BLOOD SPECIMEN Ordering Facility: [facility] Address: [address] [place] [address] Performed By: #### 2 4323-8 #### [facility] CLIA [id number] [address] [place] [address] [place] Chloride [Moles/Vol] 100 mmol/L Normal 97-105 [facility] Comment on above: Order Comment: Speci men Type: BLOOD SPECIMEN Ordering Facility: [facility] Address: [address] [place] [address] Performed By: #### 2 4323-8 #### [facility] CLIA [id number] [address] [place] [address] [place] CO2 [Moles/Vol] 25 mmol/L Normal 22-30 [facility] Comment on above: Order Comment: Speci men Type: BLOOD SPECIMEN Ordering Facility: [facility] Address: [address] [place] [address] Performed By: #### 2 4323-8 #### [facility] CLIA [id number] [address] [place] [address] [place] Creatinine [Mass/Vol] 0.69 mg/dL Normal 0.58-0.96 [facility] Comment on above: Order Comment: Maryann patel Type: BLOOD SPECIMEN Ordering Facility: [facility] Address: [address] [place] [address] Performed By: #### 2 4323-8 #### [facility] CLIA [id number] [address] [place] [address] [facility] Creatinine and Glomerular filtration rate.predicted panel (S/P/Bld) 86 mL/min/1.73m??? Normal >=60 [facility] Comment on above: Order Comment: Maryann patel Type: BLOOD SPECIMEN Ordering Facility: [facility] Address: [address] [place] [address] Result Comment: Kallie mated Glomerular Filtration Rate [...] GFR. Performed By: #### 2 4323-8 #### [facility] CLIA [id number] [address] [place] [address] [place] Glucose [Mass/Vol] 78 mg/dL Normal 74-99 [facility] Comment on above: Order Comment: Maryann patel Type: BLOOD SPECIMEN Ordering Facility: [facility] Address: [address] [place] [address] Result Comment: The [place] [employer] (ADA) provides guidance for cutoff [...] Standards of Medical Care in Diabetes 2016, [place] [employer]. Diabetes Care. 2016.39(Suppl 1). Performed By: #### 2 4323-8 #### [facility] CLIA [id number] [address] [place] [address] [place] Potassium [Moles/Vol] 5.0 mmol/L Normal 3.7-5.1 [facility] Comment on above: Order Comment: Speci men Type: BLOOD SPECIMEN Ordering Facility: [facility] Address: [address] [place] [address] Performed By: #### 2 4323-8 #### [facility] CLIA [id number] [address] [place] [address] [place] [place] Protein [Mass/Vol] 7.0 g/dL Normal 6.3-8.0 [facility] Comment on above: Order Comment: Speci men Type: BLOOD SPECIMEN Ordering Facility: [facility] Address: [address] [place] [address] Performed By: #### 2 4323-8 #### [facility] CLIA [id number] [address] [place] [address] [place] Sodium [Moles/Vol] 137 mmol/L Normal 136-144 [facility] Comment on above: Order Comment: Speci men Type: BLOOD SPECIMEN Ordering Facility: [facility] Address: [address] [place] [address] Performed By: #### 2 4323-8 #### [facility] CLIA [id number] [address] [place] [address] [place] Urea nitrogen [Mass/Vol] 12 mg/dL Normal 7-21 [facility] Comment on above: Order Comment: Speci men Type: BLOOD SPECIMEN Ordering Facility: [facility] Address: [address] [place], [place] [address] Performed By: #### 2 4323-8 #### [facility] CLIA [id number] [address] [place] [address] [place] Absolute lymphocyte countOrd ered By: Tommy Vazquez on 11-27-2022 Lymphocytes Auto (Unsp spec) [#/Vol] 0.22 10*3/uL 0.83-4.51 [facility] Basophil percentageOrdered B y: Eb Kendrick on 11-27-2022 Chloride [Moles/Vol] 101 mmol/L 98-107 [facility] Glucose [Mass/Vol] 140 mg/dL 74-106 [facility] Comment on above: Fasting Glucose resu lt greater than or equal to 126 mg/dL suggests DIABETES MELLITUS per A.D.A. criteria. Potassium [Moles/Vol] 3.8 mmol/L 3.5-5.1 [facility] Sodium [Moles/Vol] 134 mmol/L 136-145 [facility] Basophil percentageOrdered B y: Tommy aVzquez on 11-27-2022 Basophil percentage 0 SEEN /hpf 0-5 [facility] Basophils/100 WBC (Bld) 0.4 % 0-1 [facility] Bilirubin [Mass/Vol] 0.80 mg/dL 0.20-1.00 [facility] Comment on above: For patients on eltr ombopag therapy, use of Dimension Stewart TBIL is not recommended. Chloride [Moles/Vol] 102 mmol/L 98-107 [facility] Eosinophils/100 WBC (Bld) 0.2 % 0-5 [facility] Glucose [Mass/Vol] 162 mg/dL 74-106 [facility] Comment on above: Fasting Glucose resu lt greater than or equal to 126 mg/dL suggests DIABETES MELLITUS per A.D.A. criteria. Lactate [Moles/Vol] 1.7 mmol/L 0.4-2.0 [facility] Neutrophils (Bld) [#/Vol] 9.3 10*3/uL 2.0-7.7 [facility] Neutrophils/100 WBC (Bld) 90.7 % 47-70 [facility] Potassium [Moles/Vol] 3.9 mmol/L 3.5-5.1 [facility] Protein [Mass/Vol] 7.1 g/dL 6.4-8.2 [facility] Sodium [Moles/Vol] 136 mmol/L 136-145 [facility] WBC (Bld) [#/Vol] 10.2 10*3/uL 4.4-11.0 [facility] Bilirubin Test strip Ql (U)O rdered By: Tommy Vazquez on 11-27-2022 Bilirubin Ql (U) Negative Negative [facility] Blood erythrocytes count (nu mber/volume)Ordered By: Tommy Vazquez on 11-27-2022 RBC (Bld) [#/Vol] 4.13 10*6/uL 4.2-5.4 [facility] Blood hemoglobin measurement (mass/volume)Ordered By: Tommy Vazquez on 11-27-2022 Hemoglobin (Bld) [Mass/Vol] 12.3 g/dL 12.0-15.0 [facility] Blood lymphocytes/100 leukoc ytesOrdered By: Tommy Vazquez on 11-27-2022 Lymphocytes/100 WBC (Bld) 2.2 % 19-41 [facility] Blood manual differential co mment interpretation (narrative result)Ordered By: Tommy Vazquez on 11-27-2022 Manual differential comment Sukhwinder (Bld) [Interp] COMMENT [facility] Comment on above: LYMPHOPENIA. Blood monocytes/100 leukocyt esOrdered By: Tommy Vazquez on 11-27-2022 Monocytes/100 WBC (Bld) 5.7 % 0-10 [facility] Blood platelet mean volumeOr dered By: Tommy Vazquez on 11-27-2022 Platelet mean volume (Bld) [Entitic vol] 11.4 fL 6.2-12.0 [facility] Determination of erythrocyte mean corpuscular volume (MCV)Ordered By: Tommy Vazquez on 11-27-2022 MCV (RBC) [Entitic vol] 93.0 fL 81-99 [facility] Hematocrit Auto (Bld) [Volum e fraction]Ordered By: Tommy Vazquez on 11-27-2022 Hematocrit (Bld) [Volume fraction] 38.4 % 37-47 [facility] INR in Blood by Coagulation assayOrdered By: Tommy Vazquez on 11-27-2022 INR Coag (Bld) [Relative time] 0.9 {INR} [facility] Ketones Test strip Ql (U)Ord ered By: Tommy Vazquez on 11-27-2022 Ketones Ql (U) 15 mg/dl Negative [facility] - Chemistry and C hemistry - challengeOrdered By: Eb Kendrick on 11-27-2022 CO2 [Moles/Vol] 27.0 mmol/L 21.0-32.0 [facility] Urea nitrogen/Creatinine [Mass ratio] 17.6 mg/mg 02-27 [facility] - Chemistry and C hemistry - challengeOrdered By: Tommybart Vazquez on 11-27-2022 ALP [Catalytic activity/Vol] 194 U/L 45-117 [facility] ALT [Catalytic activity/Vol] 21 U/L 13-56 [facility] CO2 [Moles/Vol] 27.0 mmol/L 21.0-32.0 [facility] Globulin (S) [Mass/Vol] 3.8 g/dL 2.2-4.2 [facility] Urea nitrogen/Creatinine [Mass ratio] 22.2 mg/mg 02-27 [facility] - CoagulationOrde red By: Tommy Vazquez on 11-27-2022 aPTT Coag (Bld) [Time] 28.0 s 24.1-36.2 [facility] PT Coag (PPP) [Time] 12.0 s 11.7-14.9 [facility] - Hematology and Cell countsOrdered By: Tommy Vazquez on 11-27-2022 Erythrocyte distribution width (RBC) [Entitic vol] 49.3 fL 35.1-43.9 [facility] Erythrocyte distribution width (RBC) [Ratio] 14.6 % 11.6-14.6 [facility] Immature granulocytes/100 WBC (Bld) 0.800 % 0.0-0.9 [facility] Comment on above: IG% - Immature Granu locytes (promyelocytes, myelocytes and metamyelocytes) > 1% indicates that a LEFT SHIFT is Present. MCH (RBC) [Entitic mass] 29.8 pg 27.0-32.0 [facility] Nucleated RBC/100 WBC (Bld) [Ratio] 0 % 0-5 [facility] MCHC Auto (RBC) [Mass/Vol]Or dered By: Tommy Vazquez on 11-27-2022 MCHC (RBC) [Mass/Vol] 32.0 g/dL 32-36 [facility] Mucus LM Ql (Urine sed)Order ed By: Tommy Vazquez on 11-27-2022 Mucus Ql (Urine sed) 0 SEEN /hpf [facility] Nitrite Test strip Ql (U)Ord ered By: Tommy Vazquez on 11-27-2022 Nitrite Ql (U) Negative Negative [facility] No Panel InformationOrdered By: Eb Kendrick on 11-27-2022 Estimated Creatinine Clearance Calc 41.40 ml/min [facility] Estimated GFR (MDRD) Amer 88 mL/min >60 [facility] Comment on above: GFR Calc Estimated GFR (MDRD) Non-Af Amer 73 mL/min >60 [facility] Comment on above: Non- GFR Calc No Panel InformationOrdered By: Tommy Vazquez on 11-27-2022 Estimated Creatinine Clearance Calc 40.89 ml/min [facility] Estimated GFR (MDRD) Amer 87 mL/min >60 [facility] Comment on above: GFR Calc Estimated GFR (MDRD) Non-Af Amer 72 mL/min >60 [facility] Comment on above: Non- GFR Calc Platelets bldOrdered By: Tommy Vazquez on 11-27-2022 Platelets (Bld) [#/Vol] 262 10*3/uL 150-450 [facility] Protein Test strip Ql (U)Ord ered By: Tommy Vazquez on 11-27-2022 Protein Ql (U) 30 mg/dl Negative [facility] Serum or plasma albumin anay urement (mass/volume)Ordered By: Tommy Vazquez on 11-27-2022 Albumin [Mass/Vol] 3.3 g/dL 3.2-5.0 [facility] Serum or plasma albumin/glob ulin mass ratioOrdered By: Tommy Vazquez on 11-27-2022 Albumin/Globulin [Mass ratio] 0.9 {ratio} 0.9-2.4 [facility] Serum or plasma calcium anay urement (mass/volume)Ordered By: Eb Kendrick on 11-27-2022 Calcium [Mass/Vol] 8.7 mg/dL 8.5-10.1 [facility] Serum or plasma calcium anay urement (mass/volume)Ordered By: Tommy Vazquez on 11-27-2022 Calcium [Mass/Vol] 9.1 mg/dL 8.5-10.1 [facility] Serum or plasma creatinine m easurement (mass/volume)Ordered By: Eb Kendrick on 11-27-2022 Creatinine [Mass/Vol] 0.80 mg/dL 0.55-1.02 [facility] Comment on above: The validity of the calculated GFR & GFRAA in patients over 70 years has not been determined. Clinical correlation is essential. Serum or plasma creatinine m easurement (mass/volume)Ordered By: Tommy Vazquez on 11-27-2022 Creatinine [Mass/Vol] 0.81 mg/dL 0.55-1.02 [facility] Comment on above: The validity of the calculated GFR & GFRAA in patients over 70 years has not been determined. Clinical correlation is essential. Serum or plasma urea nitroge n measurement (mass/volume)Ordered By: Eb Kendrick on 11-27-2022 Urea nitrogen [Mass/Vol] 14 mg/dL 11-25 [facility] Serum or plasma urea nitroge n measurement (mass/volume)Ordered By: Tommy Vazquez on 11-27-2022 Urea nitrogen [Mass/Vol] 18 mg/dL 11-25 [facility] Squamous epithelial cells de tection in urine sediment by light microscopyOrdered By: Tommy Vazquez on 11-27-2022 Epithelial cells.squamous LM Ql (Urine sed) 0 SEEN /hpf 5-10 [facility] Thin prep Papanicolaou smear with manual screeningOrdered By: Eb Kendrick on 11-27-2022 Thin prep Papanicolaou smear with manual screening 6 - [facility] Thin prep Papanicolaou smear with manual screeningOrdered By: Tommy Vazuqez on 11-27-2022 Thin prep Papanicolaou smear with manual screening 48 U/L 15-37 [facility] Thin prep Papanicolaou smear with manual screening 7 5-15 [facility] Urine blood detectionOrdered By: Tommy Vazquez on 11-27-2022 RBC Ql (U) 25 /ul Negative [facility] RBC Ql (U) 0-5 SEEN /hpf 0-5 [facility] Urine clarityOrdered By: Tommy Vazquez on 11-27-2022 Clarity (U) Clear Clear [facility] Urine color determinationOrd ered By: Tommy Vazquez on 11-27-2022 Color (U) Yellow Yellow [facility] Urine glucose detectionOrder ed By: Tommy Vazquez on 11-27-2022 Glucose Ql (U) Normal mg/dl Normal [facility] Urine leukocyte esterase det ection by dipstickOrdered By: Tommy Vazquez on 11-27-2022 Leukocyte esterase Test strip Ql (U) Negative Negative [facility] Urine pHOrdered By: Tommy arriaga on 11-27-2022 pH (U) 5.0 [pH] 5.0 - 8.0 [facility] Urine sediment bacteria coun t by microscopy (number/high power field)Ordered By: Tommy Vazquez on 11-27-2022 Bacteria LM.HPF (Urine sed) [#/Area] 0 /[HPF] None Seen [facility] Urine specific gravity measu rementOrdered By: Tommy Vazquez on 11-27-2022 Specific gravity (U) [Rel density] 1.020 1.002-1.[address] [facility] Urobilinogen Auto test strip Ql (U)Ordered By: Tommy Vazquez on 11-27-2022 Urobilinogen Ql (U) 4 mg/dl Normal [facility] CBC W Auto Differential pane l (Bld)on 10-21-2022 Basophils (Bld) [#/Vol] 0.08 10*3/uL Normal <0.11 [facility] Comment on above: Order Comment: Speci men Type: BLOOD SPECIMEN Ordering Facility: [facility] Address: [address] [place], [place] [address] Performed By: #### 5 7021-8 #### [facility] CLIA [id number] [address] [place] [address] [place] Basophils/100 WBC (Bld) 0.7 % Normal [facility] Comment on above: Order Comment: Speci men Type: BLOOD SPECIMEN Ordering Facility: [facility] Address: [address] [place] [address] Performed By: #### 5 7021-8 #### [facility] CLIA [id number] [address] [place] [address] [place] Differential cell count method Nom (Bld) Auto Normal [facility] Comment on above: Order Comment: Speci men Type: BLOOD SPECIMEN Ordering Facility: [facility] Address: [address] [place] [address] Performed By: #### 5 7021-8 #### [facility] CLIA [id number] [address] [place] [address] [place] Eosinophils (Bld) [#/Vol] 0.06 10*3/uL Normal <0.46 [facility] Comment on above: Order Comment: Speci men Type: BLOOD SPECIMEN Ordering Facility: [facility] Address: [address] [place] [address] Performed By: #### 5 7021-8 #### [facility] CLIA [id number] [address] [place] [address] [place] Eosinophils/100 WBC (Bld) 0.5 % Normal [facility] Comment on above: Order Comment: Speci men Type: BLOOD SPECIMEN Ordering Facility: [facility] Address: [address] [place] [address] Performed By: #### 5 7021-8 #### [facility] CLIA [id number] [address] [place] [address] [place] Erythrocyte distribution width (RBC) [Ratio] 15.4 % High 11.5-15.0 [facility] Comment on above: Order Comment: Speci men Type: BLOOD SPECIMEN Ordering Facility: [facility] Address: [address] [place] [address] Performed By: #### 5 7021-8 #### [facility] CLIA [id number] [address] [place] [address] [place] Hematocrit (Bld) [Volume fraction] 38.1 % Normal 36.0-46.0 [facility] Comment on above: Order Comment: Speci men Type: BLOOD SPECIMEN Ordering Facility: [facility] Address: [address] [place] [address] Performed By: #### 5 7021-8 #### [facility] CLIA [id number] [address] [place] [address] [place] Hemoglobin (Bld) [Mass/Vol] 11.3 g/dL Low 11.5-15.5 [facility] Comment on above: Order Comment: Speci men Type: BLOOD SPECIMEN Ordering Facility: [facility] Address: [address] [place] [address] Performed By: #### 5 7021-8 #### [facility] CLIA [id number] [address] [place] [address] [place] Immature granulocytes (Bld) [#/Vol] 0.08 10*3/uL Normal <0.10 [facility] Comment on above: Order Comment: Speci men Type: BLOOD SPECIMEN Ordering Facility: [facility] Address: [address] [place] [address] Performed By: #### 5 7021-8 #### [facility] CLIA [id number] [address] [place] [address] [place] Immature granulocytes/100 WBC (Bld) 0.7 % Normal [facility] Comment on above: Order Comment: Speci men Type: BLOOD SPECIMEN Ordering Facility: [facility] Address: [address] [place] [address] Performed By: #### 5 7021-8 #### [facility] CLIA [id number] [address] [place] [address] [place] Lymphocytes (Bld) [#/Vol] 0.86 10*3/uL Low 1.00-4.00 [facility] Comment on above: Order Comment: Speci men Type: BLOOD SPECIMEN Ordering Facility: [facility] Address: [address] [place] [address] Performed By: #### 5 7021-8 #### [facility] CLIA [id number] [address] [place] [address] [place] Lymphocytes/100 WBC (Bld) 7.4 % Normal [facility] Comment on above: Order Comment: Speci men Type: BLOOD SPECIMEN Ordering Facility: [facility] Address: [address] [place] [address] Performed By: #### 5 7021-8 #### [facility] CLIA [id number] [address] [place] [address] [place] MCH (RBC) [Entitic mass] 30.0 pg Normal 26.0-34.0 [facility] Comment on above: Order Comment: Speci men Type: BLOOD SPECIMEN Ordering Facility: [facility] Address: [address] [place] [address] Performed By: #### 5 7021-8 #### [facility] CLIA [id number] [address] [place] [address] [place] MCHC (RBC) [Mass/Vol] 29.7 g/dL Low 30.5-36.0 [facility] Comment on above: Order Comment: Speci men Type: BLOOD SPECIMEN Ordering Facility: [facility] Address: [address] [place] [address] Performed By: #### 5 7021-8 #### [facility] CLIA [id number] [address] [place] [address] [place] MCV (RBC) [Entitic vol] 101.1 fL High 80.0-100.0 [facility] Comment on above: Order Comment: Speci men Type: BLOOD SPECIMEN Ordering Facility: [facility] Address: [address] [place] [address] Performed By: #### 5 7021-8 #### [facility] CLIA [id number] [address] [place] [id number] [place] Monocytes (Bld) [#/Vol] 0.73 10*3/uL Normal <0.87 [facility] Comment on above: Order Comment: Speci men Type: BLOOD SPECIMEN Ordering Facility: [facility] Address: [address] [place] [address] Performed By: #### 5 7021-8 #### [facility] CLIA [id number] [address] [place] [address] [place] Monocytes/100 WBC (Bld) 6.2 % Normal [facility] Comment on above: Order Comment: Speci men Type: BLOOD SPECIMEN Ordering Facility: [facility] Address: [address] [place] [address] Performed By: #### 5 7021-8 #### [facility] CLIA [id number] [address] [place] [address] [place] Neutrophils (Bld) [#/Vol] 9.89 10*3/uL High 1.45-7.50 [facility] Comment on above: Order Comment: Speci men Type: BLOOD SPECIMEN Ordering Facility: [facility] Address: [address] [place] [address] Performed By: #### 5 7021-8 #### [facility] CLIA [id number] [address] [place] [address] [place] Neutrophils/100 WBC (Bld) 84.5 % Normal [facility] Comment on above: Order Comment: Speci men Type: BLOOD SPECIMEN Ordering Facility: [facility] Address: [address] [place] [address] Performed By: #### 5 7021-8 #### [facility] CLIA [id number] [address] [place] [id number] [place] Nucleated RBC (Bld) [#/Vol] 10*3/uL Normal <0.01 [facility] Comment on above: Order Comment: Speci men Type: BLOOD SPECIMEN Ordering Facility: [facility] Address: [address] [place] [address] Performed By: #### 5 7021-8 #### [facility] CLIA [id number] [address] [place] [address] [place] Nucleated RBC/100 WBC (Bld) [Ratio] 0.0 /100 WBC Normal [facility] Comment on above: Order Comment: Speci men Type: BLOOD SPECIMEN Ordering Facility: [facility] Address: [address] [place] [address] Performed By: #### 5 7021-8 #### [facility] CLIA [id number] [address] [place] [address] [place] Platelet mean volume (Bld) [Entitic vol] 12.0 fL Normal 9.0-12.7 [facility] Comment on above: Order Comment: Skip[place] men Type: BLOOD SPECIMEN Ordering Facility: [facility] Address: [address] [place] [address] Performed By: #### 5 7021-8 #### [facility] CLIA [id number] [address] [place] [address] [place] Platelets (Bld) [#/Vol] 440 10*3/uL High 150-400 [facility] Comment on above: Order Comment: Skip[place] men Type: BLOOD SPECIMEN Ordering Facility: [facility] Address: [address] [place] [address] Performed By: #### 5 7021-8 #### [facility] CLIA [id number] [address] [place] [address] [place] RBC (Bld) [#/Vol] 3.77 10*6/uL Low 3.90-5.20 [facility] Comment on above: Order Comment: Speci men Type: BLOOD SPECIMEN Ordering Facility: [facility] Address: [address] [place] [address] Performed By: #### 5 7021-8 #### [facility] CLIA [id number] [address] [place] [id number] [place] WBC (Bld) [#/Vol] 11.70 10*3/uL High 3.70-11.00 [facility] Comment on above: Order Comment: Speci men Type: BLOOD SPECIMEN Ordering Facility: [facility] Address: [address] [place] [address] Performed By: #### 5 7021-8 #### [facility] CLIA [id number] [address] [place], [place] [address] [place] Comprehensive metabolic 2000 panelon 10-21-2022 Albumin [Mass/Vol] 4.0 g/dL Normal 3.9-4.9 [facility] Comment on above: Order Comment: Speci men Type: BLOOD SPECIMEN Ordering Facility: [facility] Address: [address] [place] [address] Performed By: #### 2 4323-8 #### [facility] CLIA [id number] [address] [place], [place] [address] [place] ALP [Catalytic activity/Vol] 133 U/L High 34-123 [facility] Comment on above: Order Comment: Speci men Type: BLOOD SPECIMEN Ordering Facility: [facility] Address: [address] [place] [address] Performed By: #### 2 4323-8 #### [facility] CLIA [id number] [address] [place], [place] [address] [place] ALT [Catalytic activity/Vol] 11 U/L Normal 7-38 [facility] Comment on above: Order Comment: Speci men Type: BLOOD SPECIMEN Ordering Facility: [facility] Address: [address] [place] [address] Performed By: #### 2 4323-8 #### [facility] CLIA [id number] [address] [place], [place] [address] [place] Anion gap [Moles/Vol] 12 mmol/L Normal 9-18 [facility] Comment on above: Order Comment: Speci men Type: BLOOD SPECIMEN Ordering Facility: [facility] Address: [address] [place], [place] [address] Performed By: #### 2 4323-8 #### [facility] CLIA [id number] [address] [place] [address] [place] AST [Catalytic activity/Vol] 33 U/L Normal 13-35 [facility] Comment on above: Order Comment: Speci men Type: BLOOD SPECIMEN Ordering Facility: [facility] Address: [address] [place] [address] Performed By: #### 2 4323-8 #### [facility] CLIA [id number] [address] [place] [address] [place] Bilirubin [Mass/Vol] 0.3 mg/dL Normal 0.2-1.3 [facility] Comment on above: Order Comment: Speci men Type: BLOOD SPECIMEN Ordering Facility: [facility] Address: [address] [place] [address] Performed By: #### 2 4323-8 #### [facility] CLIA [id number] [address] [place] [address] [place] Calcium [Mass/Vol] 10.2 mg/dL Normal 8.5-10.2 [facility] Comment on above: Order Comment: Speci men Type: BLOOD SPECIMEN Ordering Facility: [facility] Address: [address] [place], [place] [address] Performed By: #### 2 4323-8 #### [facility] CLIA [id number] [address] [place] [address] [place] Chloride [Moles/Vol] 105 mmol/L Normal 97-105 [facility] Comment on above: Order Comment: Speci men Type: BLOOD SPECIMEN Ordering Facility: [facility] Address: [address] [place] [address] Performed By: #### 2 4323-8 #### [facility] CLIA [id number] [facility] [place] [address] [place] CO2 [Moles/Vol] 24 mmol/L Normal 22-30 [facility] Comment on above: Order Comment: Speci men Type: BLOOD SPECIMEN Ordering Facility: [facility] Address: [address] [place] [address] Performed By: #### 2 4323-8 #### [facility] CLIA [id number] [address] [place] [address] [place] Creatinine [Mass/Vol] 0.68 mg/dL Normal 0.58-0.96 [facility] Comment on above: Order Comment: Speci men Type: BLOOD SPECIMEN Ordering Facility: [facility] Address: [address] [place] [address] Performed By: #### 2 4323-8 #### [facility] CLIA [id number] [address] [place] [address] [place] ESTIMATED GLOMERULAR FILTRATION RATE 86 mL/min/1.73m??? Normal >=60 [facility] Comment on above: Order Comment: Speci men Type: BLOOD SPECIMEN Ordering Facility: [facility] Address: [address] [place] [address] Result Comment: Kallie mated Glomerular Filtration Rate [...] GFR. Performed By: #### 2 4323-8 #### [facility] CLIA [id number] [address] [place] [address] [place] Glucose [Mass/Vol] 92 mg/dL Normal 74-99 [facility] Comment on above: Order Comment: Speci men Type: BLOOD SPECIMEN Ordering Facility: [facility] Address: [address] [place] [address] Result Comment: The [place] [employer] (ADA) provides guidance for cutoff [...] Standards of Medical Care in Diabetes 2016, [place] [employer]. Diabetes Care. 2016.39(Suppl 1). Performed By: #### 2 4323-8 #### [facility] CLIA [id number] [address] [place] [address] [place] Potassium [Moles/Vol] 5.2 mmol/L High 3.7-5.1 [facility] Comment on above: Order Comment: Speci men Type: BLOOD SPECIMEN Ordering Facility: [facility] Address: [address] [place] [address] Performed By: #### 2 4323-8 #### [facility] CLIA [id number] [address] [place] [address] [place] Protein [Mass/Vol] 6.8 g/dL Normal 6.3-8.0 [facility] Comment on above: Order Comment: Speci men Type: BLOOD SPECIMEN Ordering Facility: [facility] Address: [address] [place] [address] Performed By: #### 2 4323-8 #### [facility] CLIA [id number] [address] [place] [address] [place] Sodium [Moles/Vol] 141 mmol/L Normal 136-144 [facility] Comment on above: Order Comment: Speci men Type: BLOOD SPECIMEN Ordering Facility: [facility] Address: [address] [place] [address] Performed By: #### 2 4323-8 #### [facility] CLIA [id number] [address] [place] [address] [place] Urea nitrogen [Mass/Vol] 14 mg/dL Normal 7-21 [facility] Comment on above: Order Comment: Speci men Type: BLOOD SPECIMEN Ordering Facility: [facility] Address: [address] [place] [address], [place] [address] Performed By: #### 2 4323-8 #### [facility] CLIA [id number] [address] [place] [address] [place] Absolute lymphocyte countOrd ered By: Adalberto Willingham on 10-17-2022 Lymphocytes Auto (Unsp spec) [#/Vol] 1.00 10*3/uL 0.83-4.51 [facility] Basophil percentageOrdered B y: Adalberto Willingham on 10-17-2022 Basophils/100 WBC (Bld) 1.5 % 0-1 [facility] Chloride [Moles/Vol] 107 mmol/L 98-107 [facility] Eosinophils/100 WBC (Bld) 3.4 % 0-5 [facility] Glucose [Mass/Vol] 88 mg/dL 74-106 [facility] Neutrophils (Bld) [#/Vol] 3.1 10*3/uL 2.0-7.7 [facility] Neutrophils/100 WBC (Bld) 55.8 % 47-70 [facility] Potassium [Moles/Vol] 4.6 mmol/L 3.5-5.1 [facility] Sodium [Moles/Vol] 143 mmol/L 136-145 [facility] WBC (Bld) [#/Vol] 5.5 10*3/uL 4.4-11.0 [facility] Blood erythrocytes count (nu mber/volume)Ordered By: Adalberto Willingham on 10-17-2022 RBC (Bld) [#/Vol] 3.22 10*6/uL 4.2-5.4 [facility] Blood hemoglobin measurement (mass/volume)Ordered By: Adalberto Willingham on 10-17-2022 Hemoglobin (Bld) [Mass/Vol] 9.7 g/dL 12.0-15.0 [facility] Blood lymphocytes/100 leukoc ytesOrdered By: Adalberto Willingham on 10-17-2022 Lymphocytes/100 WBC (Bld) 18.1 % 19-41 [facility] Blood monocytes/100 leukocyt esOrdered By: Adalberto Willingham on 10-17-2022 Monocytes/100 WBC (Bld) 20.1 % 0-10 [facility] Blood platelet mean volumeOr dered By: Adalberto Willingham on 10-17-2022 Platelet mean volume (Bld) [Entitic vol] 10.9 fL 6.2-12.0 [facility] Determination of erythrocyte mean corpuscular volume (MCV)Ordered By: Adalberto Willingham on 10-17-2022 MCV (RBC) [Entitic vol] 99.7 fL 81-99 [facility] Hematocrit Auto (Bld) [Volum e fraction]Ordered By: Adalberto Willingham on 10-17-2022 Hematocrit (Bld) [Volume fraction] 32.1 % 37-47 [facility] - Chemistry and C hemistry - challengeOrdered By: Adalberto Willingham 10-17-2022 CO2 [Moles/Vol] 30.0 mmol/L 21.0-32.0 [facility] Urea nitrogen/Creatinine [Mass ratio] 33.0 mg/mg 10-20 [facility] - Hematology and Cell countsOrdered By: Adalberto Willingham 10-17-2022 Erythrocyte distribution width (RBC) [Entitic vol] 56.6 fL 35.1-43.9 [facility] Erythrocyte distribution width (RBC) [Ratio] 15.6 % 11.6-14.6 [facility] Immature granulocytes/100 WBC (Bld) 1.100 % 0.0-0.9 [facility] Comment on above: IG% - Immature Granu locytes (promyelocytes, myelocytes and metamyelocytes) > 1% indicates that a LEFT SHIFT is Present. MCH (RBC) [Entitic mass] 30.1 pg 27.0-32.0 [facility] Nucleated RBC/100 WBC (Bld) [Ratio] 0 % 0-5 [facility] MCHC Auto (RBC) [Mass/Vol]Or dered By: Adalberto Willingham on 10-17-2022 MCHC (RBC) [Mass/Vol] 30.2 g/dL 32-36 [facility] No Panel InformationOrdered By: Adalberto Willingham on 10-17-2022 Estimated Creatinine Clearance Calc 33.12 ml/min [facility] Estimated GFR (MDRD) Amer 103 mL/min >60 [facility] Comment on above: GFR Calc Estimated GFR (MDRD) Non-Af Amer 85 mL/min >60 [facility] Comment on above: Non- GFR Calc Platelets bldOrdered By: Adalberto Willingham on 10-17-2022 Platelets (Bld) [#/Vol] 482 10*3/uL 150-450 [facility] Serum or plasma calcium anay urement (mass/volume)Ordered By: Adalberto Willingham on 10-17-2022 Calcium [Mass/Vol] 9.3 mg/dL 8.5-10.1 [facility] Serum or plasma creatinine m easurement (mass/volume)Ordered By: Adalberto Willingham on 10-17-2022 Creatinine [Mass/Vol] 0.70 mg/dL 0.55-1.02 [facility] Comment on above: The validity of the calculated GFR & GFRAA in patients over 70 years has not been determined. Clinical correlation is essential. Serum or plasma urea nitroge n measurement (mass/volume)Ordered By: Adalberto Willingham on 10-17-2022 Urea nitrogen [Mass/Vol] 23 mg/dL 7-18 [facility] Thin prep Papanicolaou smear with manual screeningOrdered By: Adalberto Willingham on 10-17-2022 Thin prep Papanicolaou smear with manual screening 6 5-15 [facility] COVID-19 virus antigen assay Ordered By: Adalberto Willingham on 10-06-2022 SARS-CoV-2 (COVID-19) Ag IA.rapid Ql (Resp) [facility] COVID-19 virus antigen assay Ordered By: Dr. Willingham on 10-06-2022 SARS-CoV-2 (COVID-19) Ag IA.rapid Ql (Resp) [facility] Absolute lymphocyte countOrd ered By: Dr. Willingham on 10-03-2022 Lymphocytes Auto (Unsp spec) [#/Vol] 0.51 10*3/uL 0.83-4.51 [facility] Basophil percentageOrdered B y: Dr. Willingham on 10-03-2022 Basophils/100 WBC (Bld) 0.3 % 0-1 [facility] Chloride [Moles/Vol] 111 mmol/L 98-107 [facility] Eosinophils/100 WBC (Bld) 1.8 % 0-5 [facility] Glucose [Mass/Vol] 99 mg/dL 74-106 [facility] Neutrophils (Bld) [#/Vol] 7.2 10*3/uL 2.0-7.7 [facility] Neutrophils/100 WBC (Bld) 79.5 % 47-70 [facility] Potassium [Moles/Vol] 4.3 mmol/L 3.5-5.1 [facility] Sodium [Moles/Vol] 142 mmol/L 136-145 [facility] WBC (Bld) [#/Vol] 9.1 10*3/uL 4.4-11.0 [facility] Blood erythrocytes count (nu mber/volume)Ordered By: Dr. Willingham on 10-03-2022 RBC (Bld) [#/Vol] 2.85 10*6/uL 4.2-5.4 [facility] Blood hemoglobin measurement (mass/volume)Ordered By: Dr. Willingham on 10-03-2022 Hemoglobin (Bld) [Mass/Vol] 8.8 g/dL 12.0-15.0 [facility] Blood lymphocytes/100 leukoc ytesOrdered By: Dr. Willingham on 10-03-2022 Lymphocytes/100 WBC (Bld) 5.6 % 19-41 [facility] Blood manual differential co mment interpretation (narrative result)Ordered By: Dr. Willingham on 10-03-2022 Manual differential comment Sukhwinder (Bld) [Interp] SCANNED [facility] Comment on above: LYMPHOPENIA Blood monocytes/100 leukocyt esOrdered By: Dr. Willingham on 10-03-2022 Monocytes/100 WBC (Bld) 11.7 % 0-10 [facility] Blood platelet mean volumeOr dered By: Dr. Willingham on 10-03-2022 Platelet mean volume (Bld) [Entitic vol] 12.1 fL 6.2-12.0 [facility] Determination of erythrocyte mean corpuscular volume (MCV)Ordered By: Dr. Willingham on 10-03-2022 MCV (RBC) [Entitic vol] 98.9 fL 81-99 [facility] Hematocrit Auto (Bld) [Volum e fraction]Ordered By: Dr. Willingham on 10-03-2022 Hematocrit (Bld) [Volume fraction] 28.2 % 37-47 [facility] - Chemistry and C hemistry - challengeOrdered By: Dr. Willingham on 10-03-2022 CO2 [Moles/Vol] 27.0 mmol/L 21.0-32.0 [facility] Urea nitrogen/Creatinine [Mass ratio] 41.9 mg/mg 10-20 [facility] - Hematology and Cell countsOrdered By: Dr. Willingham on 10-03-2022 Erythrocyte distribution width (RBC) [Entitic vol] 54.8 fL 35.1-43.9 [facility] Erythrocyte distribution width (RBC) [Ratio] 15.1 % 11.6-14.6 [facility] Immature granulocytes/100 WBC (Bld) 1.100 % 0.0-0.9 [facility] Comment on above: IG% - Immature Granu locytes (promyelocytes, myelocytes and metamyelocytes) > 1% indicates that a LEFT SHIFT is Present. MCH (RBC) [Entitic mass] 30.9 pg 27.0-32.0 [facility] Nucleated RBC/100 WBC (Bld) [Ratio] 0 % 0-5 [facility] MCHC Auto (RBC) [Mass/Vol]Or dered By: Dr. Willingham on 10-03-2022 MCHC (RBC) [Mass/Vol] 31.2 g/dL 32-36 [facility] No Panel InformationOrdered By: Dr. Willingham on 10-03-2022 Estimated Creatinine Clearance Calc 32.50 ml/min [facility] Estimated GFR (MDRD) Amer 151 mL/min >60 [facility] Comment on above: GFR Calc Estimated GFR (MDRD) Non-Af Amer 125 mL/min >60 [facility] Comment on above: Non- GFR Calc Platelets bldOrdered By: Dr. Willingham on 10-03-2022 Platelets (Bld) [#/Vol] 244 10*3/uL 150-450 [facility] Serum or plasma calcium anay urement (mass/volume)Ordered By: Dr. Willingham on 10-03-2022 Calcium [Mass/Vol] 8.6 mg/dL 8.5-10.1 [facility] Serum or plasma creatinine m easurement (mass/volume)Ordered By: Dr. Willingham on 10-03-2022 Creatinine [Mass/Vol] 0.50 mg/dL 0.55-1.02 [facility] Comment on above: The validity of the calculated GFR & GFRAA in patients over 70 years has not been determined. Clinical correlation is essential. Serum or plasma urea nitroge n measurement (mass/volume)Ordered By: Dr. Willingham on 10-03-2022 Urea nitrogen [Mass/Vol] 21 mg/dL 7-18 [facility] Thin prep Papanicolaou smear with manual screeningOrdered By: Dr. Willingham on 10-03-2022 Thin prep Papanicolaou smear with manual screening 4 5-15 [facility] Absolute lymphocyte countOrd ered By: Dr. Watson on 10-02-2022 Lymphocytes Auto (Unsp spec) [#/Vol] 0.38 10*3/uL 0.83-4.51 [facility] Basophil percentageOrdered B y: Dr. Watson on 10-02-2022 Basophil percentage 1.9 mg/dL 2.5-4.9 [facility] Basophils/100 WBC (Bld) 0.2 % 0-1 [facility] Bilirubin [Mass/Vol] 0.50 mg/dL 0.20-1.00 [facility] Comment on above: For patients on eltr ombopag therapy, use of Dimension Stewart TBIL is not recommended. Chloride [Moles/Vol] 109 mmol/L 98-107 [facility] Eosinophils/100 WBC (Bld) 1.1 % 0-5 [facility] Glucose [Mass/Vol] 122 mg/dL 74-106 [facility] Comment on above: Fasting Glucose resu lt from 100 to 125 mg/dL suggests IMPAIRED HOMEOSTASIS per A.D.A. criteria. Neutrophils (Bld) [#/Vol] 8.7 10*3/uL 2.0-7.7 [facility] Neutrophils/100 WBC (Bld) 83.6 % 47-70 [facility] Potassium [Moles/Vol] 3.8 mmol/L 3.5-5.1 [facility] Protein [Mass/Vol] 5.0 g/dL 6.4-8.2 [facility] Sodium [Moles/Vol] 141 mmol/L 136-145 [facility] WBC (Bld) [#/Vol] 10.4 10*3/uL 4.4-11.0 [facility] Blood erythrocytes count (nu mber/volume)Ordered By: Dr. Watson on 10-02-2022 RBC (Bld) [#/Vol] 3.00 10*6/uL 4.2-5.4 [facility] Blood hemoglobin measurement (mass/volume)Ordered By: Dr. Watson on 10-02-2022 Hemoglobin (Bld) [Mass/Vol] 9.2 g/dL 12.0-15.0 [facility] Blood lymphocytes/100 leukoc ytesOrdered By: Dr. Watson on 10-02-2022 Lymphocytes/100 WBC (Bld) 3.7 % 19-41 [facility] Blood manual differential co mment interpretation (narrative result)Ordered By: Dr. Watson on 10-02-2022 Manual differential comment Sukhwinder (Bld) [Interp] SCANNED [facility] Comment on above: LYMPHOPENIA NOTED Blood monocytes/100 leukocyt esOrdered By: Dr. Watson on 10-02-2022 Monocytes/100 WBC (Bld) 10.9 % 0-10 [facility] Blood platelet mean volumeOr dered By: Dr. Watson on 10-02-2022 Platelet mean volume (Bld) [Entitic vol] 11.9 fL 6.2-12.0 [facility] COVID-19 virus antigen assay Ordered By: Josephine Watson on 10-02-2022 SARS-CoV-2 (COVID-19) Ag IA.rapid Ql (Resp) [facility] COVID-19 virus antigen assay Ordered By: Dr. Watson on 10-02-2022 SARS-CoV-2 (COVID-19) Ag IA.rapid Ql (Resp) [facility] Determination of erythrocyte mean corpuscular volume (MCV)Ordered By: Dr. Watson on 10-02-2022 MCV (RBC) [Entitic vol] 97.3 fL 81-99 [facility] Hematocrit Auto (Bld) [Volum e fraction]Ordered By: Dr. Watson on 10-02-2022 Hematocrit (Bld) [Volume fraction] 29.2 % 37-47 [facility] - Chemistry and C hemistry - challengeOrdered By: Dr. Watson on 10-02-2022 ALP [Catalytic activity/Vol] 74 U/L 45-117 [facility] ALT [Catalytic activity/Vol] 19 U/L 13-56 [facility] CO2 [Moles/Vol] 27.0 mmol/L 21.0-32.0 [facility] Globulin (S) [Mass/Vol] 2.9 g/dL 2.2-4.2 [facility] Urea nitrogen/Creatinine [Mass ratio] 27.0 mg/mg 10-20 [facility] - Hematology and Cell countsOrdered By: Dr. Watson on 10-02-2022 Erythrocyte distribution width (RBC) [Entitic vol] 52.6 fL 35.1-43.9 [facility] Erythrocyte distribution width (RBC) [Ratio] 14.8 % 11.6-14.6 [facility] Immature granulocytes/100 WBC (Bld) 0.500 % 0.0-0.9 [facility] Comment on above: IG% - Immature Granu locytes (promyelocytes, myelocytes and metamyelocytes) > 1% indicates that a LEFT SHIFT is Present. MCH (RBC) [Entitic mass] 30.7 pg 27.0-32.0 [facility] Nucleated RBC/100 WBC (Bld) [Ratio] 0 % 0-5 [facility] MCHC Auto (RBC) [Mass/Vol]Or dered By: Dr. Watson on 10-02-2022 MCHC (RBC) [Mass/Vol] 31.5 g/dL 32-36 [facility] No Panel InformationOrdered By: Dr. Watson on 10-02-2022 Estimated Creatinine Clearance Calc 31.60 ml/min [facility] Estimated GFR (MDRD) Amer 96 mL/min >60 [facility] Comment on above: GFR Calc Estimated GFR (MDRD) Non-Af Amer 79 mL/min >60 [facility] Comment on above: Non- GFR Calc Platelets bldOrdered By: Dr. Watson on 10-02-2022 Platelets (Bld) [#/Vol] 199 10*3/uL 150-450 [facility] Serum or plasma albumin anay urement (mass/volume)Ordered By: Dr. Watson on 10-02-2022 Albumin [Mass/Vol] 2.1 g/dL 3.2-5.0 [facility] Serum or plasma albumin/glob ulin mass ratioOrdered By: Dr. Watson on 10-02-2022 Albumin/Globulin [Mass ratio] 0.7 {ratio} 0.9-2.4 [facility] Serum or plasma calcium anay urement (mass/volume)Ordered By: Dr. Watson on 10-02-2022 Calcium [Mass/Vol] 8.4 mg/dL 8.5-10.1 [facility] Serum or plasma creatinine m easurement (mass/volume)Ordered By: Dr. Watson on 10-02-2022 Creatinine [Mass/Vol] 0.74 mg/dL 0.55-1.02 [facility] Comment on above: The validity of the calculated GFR & GFRAA in patients over 70 years has not been determined. Clinical correlation is essential. Serum or plasma urea nitroge n measurement (mass/volume)Ordered By: Dr. Watson on 10-02-2022 Urea nitrogen [Mass/Vol] 20 mg/dL 7-18 [facility] Thin prep Papanicolaou smear with manual screeningOrdered By: Dr. Watson on 10-02-2022 Thin prep Papanicolaou smear with manual screening 69 U/L 15-37 [facility] Thin prep Papanicolaou smear with manual screening 5 5-15 [facility] Bilirubin Test strip Ql (U)O rdered By: Dr. Wtason on 09-30-2022 Bilirubin Ql (U) Negative Negative [facility] Direct bilirubinOrdered By: Dr. Alaniz on 09-30-2022 Bilirubin.direct [Mass/Vol] 0.39 mg/dL 0.00-0.30 [facility] Ketones Test strip Ql (U)Ord ered By: Dr. Watson on 09-30-2022 Ketones Ql (U) 50 mg/dl Negative [facility] - CoagulationOrde red By: Dr. Alaniz on 09-30-2022 aPTT Coag (Bld) [Time] 33.3 s 24.1-36.2 [facility] Nitrite Test strip Ql (U)Ord ered By: Dr. Watson on 09-30-2022 Nitrite Ql (U) Negative Negative [facility] No Panel InformationOrdered By: Dr. Watson on 09-30-2022 Vitamin D 25-Hydroxy 79.8 ng/mL [facility] Comment on above: Vitamin D 25(OH) Sta tus Range Deficiency <20 ng/mL (50nmol/L) Insufficiency 20 - 30 ng/mL (50 - 75 nmol/L) Sufficiency 30 - 100 ng/mL (75 - 250 nmol/L) Toxicity >100 ng/mL (>250 nmol/L) Protein Test strip Ql (U)Ord ered By: Dr. Watson on 09-30-2022 Protein Ql (U) Negative Negative [facility] Review by pathologistOrdered By: Dr. Hummel on 09-30-2022 Pathologist review Sukhwinder (Unsp spec) [Interp] Reviewed [facility] Comment on above: Previous reported re sult: September foll Edited by: RGOOD on 09/30/22:1252Neutrophilic leukocytosis.Clinical correlation necessary.Geoffrey Cristobal M.D. 09/30/22 AMENDED REPORT 09/30/22 1252 PATH REV previously reported as: Wendy neely Urine blood detectionOrdered By: Dr. Watson on 09-30-2022 RBC Ql (U) 10 /ul Negative [facility] Urine clarityOrdered By: Dr. Watson on 09-30-2022 Clarity (U) Clear Clear [facility] Urine color determinationOrd ered By: Dr. Watson on 09-30-2022 Color (U) Yellow Yellow [facility] Urine glucose detectionOrder ed By: Dr. Watson on 09-30-2022 Glucose Ql (U) Normal mg/dl Normal [facility] Urine leukocyte esterase det ection by dipstickOrdered By: Dr. Watson on 09-30-2022 Leukocyte esterase Test strip Ql (U) Negative Negative [facility] Urine pHOrdered By: Dr. Watson on 09-30-2022 pH (U) 7.0 [pH] 5.0 - 8.0 [facility] Urine specific gravity measu rementOrdered By: Dr. Watson on 09-30-2022 Specific gravity (U) [Rel density] 1.010 1.002-1.[address] [facility] Urobilinogen Auto test strip Ql (U)Ordered By: Dr. Watson on 09-30-2022 Urobilinogen Ql (U) Normal mg/dl Normal [facility] - Chemistry and C hemistry - challengeOrdered By: Dr. Hummel on 09-29-2022 Magnesium [Mass/Vol] 2.3 mg/dL 1.6-2.6 [facility] - Drug toxicology Ordered By: Dr. Hoskins on 09-16-2022 Amphetamines Ql (U) Negative <1000 ng/mL [facility] Benzodiazepines Ql (U) Negative < 200 ng/mL [facility] Cannabinoids Screen Ql (U) Negative < 50 ng/mL [facility] Cocaine Ql (U) Negative < 300 ng/mL [facility] Opiates Ql (U) Negative < 300 ng/mL [facility] No Panel InformationOrdered By: Dr. Hoskins on 09-16-2022 MDMA (Ecstasy) Screen Negative < 500 ng/mL [facility] Miscellaneous Test See comment [facility] Comment on above: TEST RESULT LIMITSTr amadol Positive Aescsa=647 Tramadol Conf,MS,UR 42994 ng/mL Ombhxl=100 ___ [facility] ORIGINAL REPORT ON FILE IN LAB CONTAINS ADDITIONAL TEST SITE INFORMATION. Urine Barbiturates Screen Negative < 200 ng/mL [facility] Urine Drug Screen Comment [facility] Comment on above: CONFIRMATORY TESTING FOR ALL [...] Urine Methadone Screen Negative < 300 ng/mL [facility] Urine phencyclidine (PCP) de tectionOrdered By: Dr. Hoskins on 09-16-2022 Phencyclidine Ql (U) Negative < 25 ng/mL [facility] Final Surgical Pathology Rep meera 05-21-2022 Final Surgical Pathology Report . Pathology Reports Accession: Collected Date/Time: Received Date/Time: Pathologist: [id number] 05/19/2022 10:06 EST 05/20/2022 11:23 EST MD MARISOL COATS Final Surgical Pathology Report DIAGNOSIS: A. STOMACH, BIOPSY: - REACTIVE GASTROPATHY WITH MINIMAL CHRONIC INFLAMMATION - NEGATIVE FOR H. PYLORI COMMENT: [facility] [id number] CLINICAL INFORMATION: Procedure: EGD WITH BIOPSY Preoperative [...] Electronically Signed by Pathology Report verified by [facility] MARISOL COATS MD Sign out Date: 05/21/2022 11:40 Performing Lab: [facility], [address] [place] [address] Pathology Dept Normal [facility] ([place]) Absolute lymphocyte countOrd ered By: Dr. Adler on 05-11-2022 Lymphocytes Auto (Unsp spec) [#/Vol] 0.83 10*3/uL 0.83-4.51 [facility] Basophil percentageOrdered B y: Dr. Adler on 01-01-2023 Basophil percentage 0 SEEN /hpf 0-5 [facility] Basophils/100 WBC (Bld) 0.5 % 0-1 [facility] Bilirubin [Mass/Vol] 0.40 mg/dL 0.20-1.00 [facility] Comment on above: For patients on eltr ombopag therapy, use of Dimension Stewart TBIL is not recommended. Chloride [Moles/Vol] 111 mmol/L 98-107 [facility] Eosinophils/100 WBC (Bld) 0.5 % 0-5 [facility] Glucose [Mass/Vol] 106 mg/dL 74-106 [facility] Comment on above: Fasting Glucose resu lt from 100 to 125 mg/dL suggests IMPAIRED HOMEOSTASIS per A.D.A. criteria. Lactate [Moles/Vol] 0.9 mmol/L 0.4-2.0 [facility] Neutrophils (Bld) [#/Vol] 6.5 10*3/uL 2.0-7.7 [facility] Neutrophils/100 WBC (Bld) 75.9 % 47-70 [facility] Potassium [Moles/Vol] 3.9 mmol/L 3.5-5.1 [facility] Protein [Mass/Vol] 6.6 g/dL 6.4-8.2 [facility] Sodium [Moles/Vol] 144 mmol/L 136-145 [facility] WBC (Bld) [#/Vol] 8.6 10*3/uL 4.4-11.0 [facility] Bilirubin Test strip Ql (U)O rdered By: Dr. Adler on 05-11-2022 Bilirubin Ql (U) Negative Negative [facility] Blood erythrocytes count (nu mber/volume)Ordered By: Dr. Adler on 05-11-2022 RBC (Bld) [#/Vol] 4.29 10*6/uL 4.2-5.4 [facility] Blood hemoglobin measurement (mass/volume)Ordered By: Dr. Adler on 05-11-2022 Hemoglobin (Bld) [Mass/Vol] 13.1 g/dL 12.0-15.0 [facility] Blood lymphocytes/100 leukoc ytesOrdered By: Dr. Adler on 05-11-2022 Lymphocytes/100 WBC (Bld) 9.7 % 19-41 [facility] Blood monocytes/100 leukocyt esOrdered By: Dr. Adler on 05-11-2022 Monocytes/100 WBC (Bld) 12.8 % 0-10 [facility] Blood platelet mean volumeOr dered By: Dr. Adler on 05-11-2022 Platelet mean volume (Bld) [Entitic vol] 11.0 fL 6.2-12.0 [facility] Determination of erythrocyte mean corpuscular volume (MCV)Ordered By: Dr. Adler on 05-11-2022 MCV (RBC) [Entitic vol] 96.7 fL 81-99 [facility] Hematocrit Auto (Bld) [Volum e fraction]Ordered By: Dr. Adler on 05-11-2022 Hematocrit (Bld) [Volume fraction] 41.5 % 37-47 [facility] Ketones Test strip Ql (U)Ord ered By: Dr. Adler on 05-11-2022 Ketones Ql (U) Negative Negative [facility] - Chemistry and C hemistry - challengeOrdered By: Dr. Adler on 05-11-2022 ALP [Catalytic activity/Vol] 98 U/L 45-117 [facility] ALT [Catalytic activity/Vol] 18 U/L 13-56 [facility] CO2 [Moles/Vol] 30.0 mmol/L 21.0-32.0 [facility] Globulin (S) [Mass/Vol] 3.4 g/dL 2.2-4.2 [facility] Urea nitrogen/Creatinine [Mass ratio] 15.5 mg/mg 10-20 [facility] Laboratory - Hematology and Cell countsOrdered By: Dr. Adler on 05-11-2022 Erythrocyte distribution width (RBC) [Entitic vol] 49.5 fL 35.1-43.9 [facility] Erythrocyte distribution width (RBC) [Ratio] 14.1 % 11.6-14.6 [facility] Immature granulocytes/100 WBC (Bld) 0.600 % 0.0-0.9 [facility] Comment on above: IG% - Immature Granu locytes (promyelocytes, myelocytes and metamyelocytes) > 1% indicates that a LEFT SHIFT is Present. MCH (RBC) [Entitic mass] 30.5 pg 27.0-32.0 [facility] Nucleated RBC/100 WBC (Bld) [Ratio] 0 % 0-5 [facility] MCHC Auto (RBC) [Mass/Vol]Or dered By: Dr. Adler on 05-11-2022 MCHC (RBC) [Mass/Vol] 31.6 g/dL 32-36 [facility] Mucus LM Ql (Urine sed)Order ed By: Dr. Adler on 05-11-2022 Mucus Ql (Urine sed) 0 SEEN /hpf [facility] Nitrite Test strip Ql (U)Ord ered By: Dr. Adler on 05-11-2022 Nitrite Ql (U) Negative Negative [facility] No Panel InformationOrdered By: Dr. Adler on 05-11-2022 Estimated Creatinine Clearance Calc 33.27 ml/min [facility] Estimated GFR (MDRD) Amer 92 mL/min >60 [facility] Comment on above: GFR Calc Estimated GFR (MDRD) Non-Af Amer 76 mL/min >60 [facility] Comment on above: Non- GFR Calc Platelets bldOrdered By: Dr. Adler on 05-11-2022 Platelets (Bld) [#/Vol] 343 10*3/uL 150-450 [facility] Protein Test strip Ql (U)Ord ered By: Dr. Adler on 05-11-2022 Protein Ql (U) Negative Negative [facility] Serum or plasma albumin anay urement (mass/volume)Ordered By: Dr. Adler on 05-11-2022 Albumin [Mass/Vol] 3.2 g/dL 3.2-5.0 [facility] Serum or plasma albumin/glob ulin mass ratioOrdered By: Dr. Adler on 05-11-2022 Albumin/Globulin [Mass ratio] 0.9 {ratio} 0.9-2.4 [facility] Serum or plasma calcium anay urement (mass/volume)Ordered By: Dr. Adler on 05-11-2022 Calcium [Mass/Vol] 9.1 mg/dL 8.5-10.1 [facility] Serum or plasma creatinine m easurement (mass/volume)Ordered By: Dr. Adler on 05-11-2022 Creatinine [Mass/Vol] 0.77 mg/dL 0.55-1.02 [facility] Comment on above: The validity of the calculated GFR & GFRAA in patients over 70 years has not been determined. Clinical correlation is essential. Serum or plasma urea nitroge n measurement (mass/volume)Ordered By: Dr. Adler on 05-11-2022 Urea nitrogen [Mass/Vol] 12 mg/dL 7-18 [facility] Squamous epithelial cells de tection in urine sediment by light microscopyOrdered By: Dr. Adler on 05-11-2022 Epithelial cells.squamous LM Ql (Urine sed) 0-5 SEEN /hpf 5-10 [facility] Thin prep Papanicolaou smear with manual screeningOrdered By: Dr. Adler on 05-11-2022 Thin prep Papanicolaou smear with manual screening 27 U/L 15-37 [facility] Thin prep Papanicolaou smear with manual screening 3 5-15 [facility] Urine blood detectionOrdered By: Dr. Adler on 05-11-2022 RBC Ql (U) 250 /ul Negative [facility] RBC Ql (U) 10-25 SEEN /hpf 0-5 [facility] Urine clarityOrdered By: Dr. Adler on 05-11-2022 Clarity (U) Clear Clear [facility] Urine color determinationOrd ered By: Dr. Adler on 05-11-2022 Color (U) Yellow Yellow [facility] Urine glucose detectionOrder ed By: Dr. Adler on 05-11-2022 Glucose Ql (U) Normal mg/dl Normal [facility] Urine leukocyte esterase det ection by dipstickOrdered By: Dr. Adler on 05-11-2022 Leukocyte esterase Test strip Ql (U) 25 /ul Negative [facility] Urine pHOrdered By: Dr. Nati richardson on 05-11-2022 pH (U) 7.0 [pH] 5.0 - 8.0 [facility] Urine sediment bacteria coun t by microscopy (number/high power field)Ordered By: Dr. Adler on 05-11-2022 Bacteria LM.HPF (Urine sed) [#/Area] 0 /[HPF] None Seen [facility] Urine specific gravity measu rementOrdered By: Dr. Adler on 05-11-2022 Specific gravity (U) [Rel density] 1.015 1.002-1.[address] [facility] Urobilinogen Auto test strip Ql (U)Ordered By: Dr. Adler on 05-11-2022 Urobilinogen Ql (U) Normal mg/dl Normal [facility] Culture, urineOrdered By: Dr Esequiel Manning on 05-06-2022 Bacteria identified Cx Nom (U) GNR lactose wing commander [facility] Absolute lymphocyte countOrd ered By: Dr. Manning on 05-04-2022 Lymphocytes Auto (Unsp spec) [#/Vol] 0.71 10*3/uL 0.83-4.51 [facility] Basophil percentageOrdered B y: Dr. Manning on 05-04-2022 Basophil percentage 50-100 SEEN /hpf 0-5 [facility] Basophils/100 WBC (Bld) 0.5 % 0-1 [facility] Bilirubin [Mass/Vol] 0.60 mg/dL 0.20-1.00 [facility] Comment on above: For patients on eltr ombopag therapy, use of Dimension Stewart TBIL is not recommended. Chloride [Moles/Vol] 107 mmol/L 98-107 [facility] Eosinophils/100 WBC (Bld) 0.9 % 0-5 [facility] Glucose [Mass/Vol] 94 mg/dL 74-106 [facility] Neutrophils (Bld) [#/Vol] 6.9 10*3/uL 2.0-7.7 [facility] Neutrophils/100 WBC (Bld) 77.7 % 47-70 [facility] Potassium [Moles/Vol] 3.8 mmol/L 3.5-5.1 [facility] Protein [Mass/Vol] 7.0 g/dL 6.4-8.2 [facility] Sodium [Moles/Vol] 142 mmol/L 136-145 [facility] WBC (Bld) [#/Vol] 8.8 10*3/uL 4.4-11.0 [facility] Bilirubin Test strip Ql (U)O rdered By: Dr. Manning on 05-04-2022 Bilirubin Ql (U) Negative Negative [facility] Blood erythrocytes count (nu mber/volume)Ordered By: Dr. Manning on 05-04-2022 RBC (Bld) [#/Vol] 4.26 10*6/uL 4.2-5.4 [facility] Blood hemoglobin measurement (mass/volume)Ordered By: Dr. Manning on 05-04-2022 Hemoglobin (Bld) [Mass/Vol] 13.0 g/dL 12.0-15.0 [facility] Blood lymphocytes/100 leukoc ytesOrdered By: Dr. Manning on 05-04-2022 Lymphocytes/100 WBC (Bld) 8.0 % 19-41 [facility] Blood monocytes/100 leukocyt esOrdered By: Dr. Manning on 05-04-2022 Monocytes/100 WBC (Bld) 12.2 % 0-10 [facility] Blood platelet mean volumeOr dered By: Dr. Manning on 05-04-2022 Platelet mean volume (Bld) [Entitic vol] 10.6 fL 6.2-12.0 [facility] COVID-19 virus antigen assay Ordered By: Dr. Manning on 05-04-2022 SARS-CoV-2 (COVID-19) Ag IA.rapid Ql (Resp) [facility] Determination of erythrocyte mean corpuscular volume (MCV)Ordered By: Dr. Manning on 05-04-2022 MCV (RBC) [Entitic vol] 97.2 fL 81-99 [facility] Hematocrit Auto (Bld) [Volum e fraction]Ordered By: Dr. Manning on 05-04-2022 Hematocrit (Bld) [Volume fraction] 41.4 % 37-47 [facility] Ketones Test strip Ql (U)Ord ered By: Dr. Manning on 05-04-2022 Ketones Ql (U) Negative Negative [facility] Laboratory - Chemistry and C hemistry - challengeOrdered By: Dr. Manning on 05-04-2022 ALP [Catalytic activity/Vol] 109 U/L 45-117 [facility] ALT [Catalytic activity/Vol] 22 U/L 13-56 [facility] CO2 [Moles/Vol] 29.0 mmol/L 21.0-32.0 [facility] Globulin (S) [Mass/Vol] 3.6 g/dL 2.2-4.2 [facility] Lipase [Catalytic activity/Vol] 103 U/L 73-393 [facility] Urea nitrogen/Creatinine [Mass ratio] 21.6 mg/mg 10-20 [facility] Laboratory - Hematology and Cell countsOrdered By: Dr. Manning on 05-04-2022 Erythrocyte distribution width (RBC) [Entitic vol] 51.4 fL 35.1-43.9 [facility] Erythrocyte distribution width (RBC) [Ratio] 14.6 % 11.6-14.6 [facility] Immature granulocytes/100 WBC (Bld) 0.700 % 0.0-0.9 [facility] Comment on above: IG% - Immature Granu locytes (promyelocytes, myelocytes and metamyelocytes) > 1% indicates that a LEFT SHIFT is Present. MCH (RBC) [Entitic mass] 30.5 pg 27.0-32.0 [facility] Nucleated RBC/100 WBC (Bld) [Ratio] 0 % 0-5 [facility] MCHC Auto (RBC) [Mass/Vol]Or dered By: Dr. Manning on 05-04-2022 MCHC (RBC) [Mass/Vol] 31.4 g/dL 32-36 [facility] Mucus LM Ql (Urine sed)Order ed By: Dr. Manning on 05-04-2022 Mucus Ql (Urine sed) 0 SEEN /hpf [facility] Nitrite Test strip Ql (U)Ord ered By: Dr. Manning on 05-04-2022 Nitrite Ql (U) Negative Negative [facility] No Panel InformationOrdered By: Dr. Manning on 05-04-2022 Estimated Creatinine Clearance Calc 40.82 ml/min [facility] Estimated GFR (MDRD) Amer 84 mL/min >60 [facility] Comment on above: GFR Calc Estimated GFR (MDRD) Non-Af Amer 70 mL/min >60 [facility] Comment on above: Non- GFR Calc Platelets bldOrdered By: Dr. Manning on 05-04-2022 Platelets (Bld) [#/Vol] 357 10*3/uL 150-450 [facility] Protein Test strip Ql (U)Ord ered By: Dr. Manning on 05-04-2022 Protein Ql (U) 30 mg/dl Negative [facility] Serum or plasma albumin anay urement (mass/volume)Ordered By: Dr. Manning on 05-04-2022 Albumin [Mass/Vol] 3.4 g/dL 3.2-5.0 [facility] Serum or plasma albumin/glob ulin mass ratioOrdered By: Dr. Manning on 05-04-2022 Albumin/Globulin [Mass ratio] 0.9 {ratio} 0.9-2.4 [facility] Serum or plasma calcium anay urement (mass/volume)Ordered By: Dr. Manning on 05-04-2022 Calcium [Mass/Vol] 9.7 mg/dL 8.5-10.1 [facility] Serum or plasma creatinine m easurement (mass/volume)Ordered By: Dr. Manning on 05-04-2022 Creatinine [Mass/Vol] 0.83 mg/dL 0.55-1.02 [facility] Comment on above: The validity of the calculated GFR & GFRAA in patients over 70 years has not been determined. Clinical correlation is essential. Serum or plasma urea nitroge n measurement (mass/volume)Ordered By: Dr. Manning on 05-04-2022 Urea nitrogen [Mass/Vol] 18 mg/dL 7-18 [facility] Squamous epithelial cells de tection in urine sediment by light microscopyOrdered By: Dr. Manning on 05-04-2022 Epithelial cells.squamous LM Ql (Urine sed) 0-5 SEEN /hpf 5-10 [facility] Thin prep Papanicolaou smear with manual screeningOrdered By: Dr. Manning on 05-04-2022 Thin prep Papanicolaou smear with manual screening 38 U/L 15-37 [facility] Thin prep Papanicolaou smear with manual screening 6 5-15 [facility] Urine blood detectionOrdered By: Dr. Manning on 05-04-2022 RBC Ql (U) 50 /ul Negative [facility] RBC Ql (U) 0-5 SEEN /hpf 0-5 [facility] Urine clarityOrdered By: Dr. Manning on 05-04-2022 Clarity (U) Sl. Cloudy Clear [facility] Urine color determinationOrd ered By: Dr. Manning on 05-04-2022 Color (U) Yellow Yellow [facility] Urine glucose detectionOrder ed By: Dr. Manning on 05-04-2022 Glucose Ql (U) Normal mg/dl Normal [facility] Urine leukocyte esterase det ection by dipstickOrdered By: Dr. Manning on 05-04-2022 Leukocyte esterase Test strip Ql (U) 500 /ul Negative [facility] Urine pHOrdered By: Dr. Manning o n 05-04-2022 pH (U) 5.0 [pH] 5.0 - 8.0 [facility] Urine sediment bacteria coun t by microscopy (number/high power field)Ordered By: Dr. Manning on 05-04-2022 Bacteria LM.HPF (Urine sed) [#/Area] 3 /[HPF] None Seen [facility] Urine specific gravity measu rementOrdered By: Dr. Manning on 05-04-2022 Specific gravity (U) [Rel density] 1.020 1.002-1.[address] [facility] Urobilinogen Auto test strip Ql (U)Ordered By: Dr. Manning on 05-04-2022 Urobilinogen Ql (U) Normal mg/dl Normal [facility] EMERGENCY REPORTon 2 EMERGENCY REPORT [facility] EMERGENCY ROOM REPORT NAME ACCOUNT SEX AGE ADMIT DISCHARGE PT MED. RECORD# NUMBER DATE DATE TYPE HUYEN VALERIO I [id number] F [id number] 04/27/22 04/27/22 [id number] ROOM: ER DATE OF : 1940 DICTATING [...] Lorenzo Monahan MD 04/27/22 13:04 JOB #: [id number] Transcribed By: [email or web address] 04/28/22 09:00 Electronically signed by: IVIS Monahan M.D. 05/02/22 07:09 Page 2 of 2 HUYEN VALERIO I Emergency Room Report Normal [facility] CORONAVIRUS (SARS) ANTIGEN T ESTon 04-27-2022 EXTERNAL QC DONE? YES Normal [facility] Comment on above: Performed By: #### [id number] #### [facility],[address] [place] [address] INTERNAL CONTROL PASS Normal [facility] Comment on above: Performed By: #### [id number] #### [facility],[address] [place] [id number] SARS ANTIGEN Positive Abnormal NORMAL: NEGATIVE [facility] Comment on above: Result Comment: { CA LLED TO FELIBERTO/KYLAH 1249 { READ BACK BY [id number] Performed By: #### [id number] #### [facility],[address] [place] [id number] SEND TO ? YES Normal [facility] Comment on above: Result Comment: SARS -CoV-2 THIS TEST IS BEING USED UNDER THE FDA EUA PROCEDURE. THIS ASSAY HAS BEEN VALIDATED AT [facility] FOR USE WITH NASAL AND NASOPHARYNGEAL SWAB [...] PUBLIC HEALTH AUTHORITIES. Performed By: #### [id number] #### [facility],[address] [address] Laboratory - Drug toxicology on 01-28-2022 Amphetamines Ql (U) Negative <1000 ng/mL [facility] Work Phone: [phone] Benzodiazepines Ql (U) Negative < 200 ng/mL [facility] Work Phone: [phone] Cannabinoids Screen Ql (U) Negative < 50 ng/mL [facility] Work Phone: [phone] Cocaine Ql (U) Negative < 300 ng/mL [facility] Work Phone: [phone] Opiates Ql (U) Negative < 300 ng/mL [facility] Work Phone: [phone] No Panel Informationon 01-28 MDMA (Ecstasy) Screen Negative < 500 ng/mL [facility] Work Phone: [phone] Miscellaneous Test See comment [facility] Work Phone: [phone] Comment on above: TEST RESULT LIMITSTr amadol Positive Nrvfys=367 Tramadol Conf, [place], [place] >[address] Wmbgex=100 ___ TESTING PERFORMED AT [facility]. ORIGINAL REPORT ON FILE IN LAB CONTAINS ADDITIONAL TEST SITE INFORMATION. Urine Barbiturates Screen Negative < 200 ng/mL [facility] Work Phone: [phone] Urine Drug Screen Comment [facility] Work Phone: [phone] Comment on above: CONFIRMATORY TESTING FOR ALL [...] Urine Methadone Screen Negative < 300 ng/mL [facility] Work Phone: Screening buprenorphine dete ctionon 01-28-2022 Buprenorphine Screen Ql (Unsp spec) Positive <10 ng/mL [facility] Work Phone: Urine phencyclidine (PCP) de tectionon 01-28-2022 Phencyclidine Ql (U) Negative < 25 ng/mL [facility] Work Phone: Absolute lymphocyte counton 10-18-2021 Lymphocytes Auto (Unsp spec) [#/Vol] 1.03 10*3/uL 0.83-4.51 [facility] Work Phone: Basophil percentageon 2021 Basophils/100 WBC (Bld) 0.5 % 0-1 [facility] Work Phone: Chloride [Moles/Vol] 104 mmol/L 98-107 [facility] Work Phone: Eosinophils/100 WBC (Bld) 0.5 % 0-5 [facility] Work Phone: Glucose [Mass/Vol] 100 mg/dL 74-106 [facility] Work Phone: Comment on above: Fasting Glucose resu lt from 100 to 125 mg/dL suggests IMPAIRED HOMEOSTASIS per A.D.A. criteria. Neutrophils (Bld) [#/Vol] 10.2 10*3/uL 2.0-7.7 [facility] Work Phone: Neutrophils/100 WBC (Bld) 79.9 % 47-70 [facility] Work Phone: Potassium [Moles/Vol] 4.1 mmol/L 3.5-5.1 [facility] Work Phone: Sodium [Moles/Vol] 138 mmol/L 136-145 [facility] Work Phone: WBC (Bld) [#/Vol] 12.7 10*3/uL 4.4-11.0 [facility] Work Phone: Blood erythrocytes count (nu mber/volume)on 10-18-2021 RBC (Bld) [#/Vol] 4.60 10*6/uL 4.2-5.4 [facility] Work Phone: Blood hemoglobin measurement (mass/volume)on 10-18-2021 Hemoglobin (Bld) [Mass/Vol] 13.5 g/dL 12.0-15.0 [facility] Work Phone: Blood lymphocytes/100 leukoc yteson 10-18-2021 Lymphocytes/100 WBC (Bld) 8.1 % 19-41 [facility] Work Phone: Blood monocytes/100 leukocyt eson 10-18-2021 Monocytes/100 WBC (Bld) 10.5 % 0-10 [facility] Work Phone: Blood platelet mean volumeon 10-18-2021 Platelet mean volume (Bld) [Entitic vol] 10.9 fL 6.2-12.0 [facility] Work Phone: Determination of erythrocyte mean corpuscular volume (MCV)on 10-18-2021 MCV (RBC) [Entitic vol] 94.6 fL 81-99 [facility] Work Phone: Hematocrit Auto (Bld) [Volum e fraction]on 10-18-2021 Hematocrit (Bld) [Volume fraction] 43.5 % 37-47 [facility] Work Phone: Laboratory - Chemistry and C hemistry - challengeon 10-18-2021 CO2 [Moles/Vol] 29.0 mmol/L 21.0-32.0 [facility] Work Phone: Urea nitrogen/Creatinine [Mass ratio] 28.9 mg/mg 10-20 [facility] Work Phone: Laboratory - Hematology and Cell countson 10-18-2021 Erythrocyte distribution width (RBC) [Entitic vol] 49.3 fL 35.1-43.9 [facility] Work Phone: Erythrocyte distribution width (RBC) [Ratio] 14.6 % 11.6-14.6 [facility] Work Phone: [phone] Immature granulocytes/100 WBC (Bld) 0.500 % 0.0-0.9 [facility] Work Phone: Comment on above: IG% - Immature Granu locytes (promyelocytes, myelocytes and metamyelocytes) > 1% indicates that a LEFT SHIFT is Present. MCH (RBC) [Entitic mass] 29.3 pg 27.0-32.0 [facility] Work Phone: Nucleated RBC/100 WBC (Bld) [Ratio] 0 % 0-5 [facility] Work Phone: [phone] MCHC Auto (RBC) [Mass/Vol]on 10-18-2021 MCHC (RBC) [Mass/Vol] 31.0 g/dL 32-36 [facility] Work Phone: No Panel Informationon 10-18 Estimated Creatinine Clearance Calc 34.59 ml/min [facility] Work Phone: [phone] Estimated GFR (MDRD) Amer 118 mL/min >60 [facility] Work Phone: [phone] Comment on above: GFR Calc Estimated GFR (MDRD) Non-Af Amer 97 mL/min >60 [facility] Work Phone: Comment on above: Non- GFR Calc Platelets bldon 10-18-2021 Platelets (Bld) [#/Vol] 400 10*3/uL 150-450 [facility] Work Phone: [phone] Serum or plasma calcium anay urement (mass/volume)on 10-18-2021 Calcium [Mass/Vol] 9.5 mg/dL 8.5-10.1 [facility] Work Phone: [phone] Serum or plasma creatinine m easurement (mass/volume)on 10-18-2021 Creatinine [Mass/Vol] 0.62 mg/dL 0.55-1.02 [facility] Work Phone: Comment on above: The validity of the calculated GFR & GFRAA in patients over 70 years has not been determined. Clinical correlation is essential. Serum or plasma urea nitroge n measurement (mass/volume)on 10-18-2021 Urea nitrogen [Mass/Vol] 18 mg/dL 7-18 [facility] Work Phone: Thin prep Papanicolaou smear with manual screeningon 10-18-2021 Thin prep Papanicolaou smear with manual screening 5 5-15 [facility] Work Phone: [phone] Basophil percentageon 2021 Chloride [Moles/Vol] 108 mmol/L 98-107 [facility] Work Phone: [phone] Glucose [Mass/Vol] 103 mg/dL 74-106 [facility] Work Phone: Comment on above: Fasting Glucose resu lt from 100 to 125 mg/dL suggests IMPAIRED HOMEOSTASIS per A.D.A. criteria. Potassium [Moles/Vol] 4.6 mmol/L 3.5-5.1 [facility] Work Phone: [phone] Sodium [Moles/Vol] 141 mmol/L 136-145 [facility] Work Phone: [phone] WBC (Bld) [#/Vol] 11.7 10*3/uL 4.4-11.0 [facility] Work Phone: [phone] Blood erythrocytes count (nu mber/volume)on 09-30-2021 RBC (Bld) [#/Vol] 4.34 10*6/uL 4.2-5.4 [facility] Work Phone: [phone] Blood hemoglobin measurement (mass/volume)on 09-30-2021 Hemoglobin (Bld) [Mass/Vol] 13.2 g/dL 12.0-15.0 [facility] Work Phone: [phone] Blood platelet mean volumeon 09-30-2021 Platelet mean volume (Bld) [Entitic vol] 11.3 fL 6.2-12.0 [facility] Work Phone: [phone] Determination of erythrocyte mean corpuscular volume (MCV)on 09-30-2021 MCV (RBC) [Entitic vol] 96.8 fL 81-99 [facility] Work Phone: [phone] Hematocrit Auto (Bld) [Volum e fraction]on 09-30-2021 Hematocrit (Bld) [Volume fraction] 42.0 % 37-47 [facility] Work Phone: [phone] Laboratory - Chemistry and C hemistry - challengeon 09-30-2021 CO2 [Moles/Vol] 31.0 mmol/L 21.0-32.0 [facility] Work Phone: [phone] Urea nitrogen/Creatinine [Mass ratio] 23.9 mg/mg 10-20 [facility] Work Phone: [phone] Laboratory - Hematology and Cell countson 09-30-2021 Erythrocyte distribution width (RBC) [Entitic vol] 51.9 fL 35.1-43.9 [facility] Work Phone: [phone] Erythrocyte distribution width (RBC) [Ratio] 14.6 % 11.6-14.6 [facility] Work Phone: [phone] MCH (RBC) [Entitic mass] 30.4 pg 27.0-32.0 [facility] Work Phone: [phone] MCHC Auto (RBC) [Mass/Vol]on 09-30-2021 MCHC (RBC) [Mass/Vol] 31.4 g/dL 32-36 [facility] Work Phone: No Panel Informationon 09-30 Estimated GFR (MDRD) Amer 94 mL/min >60 [facility] Work Phone: Comment on above: GFR Calc Estimated GFR (MDRD) Non-Af Amer 78 mL/min >60 [facility] Work Phone: [phone] Comment on above: Non- GFR Calc Platelets bldon 09-30-2021 Platelets (Bld) [#/Vol] 290 10*3/uL 150-450 [facility] Work Phone: [phone] Serum or plasma calcium anay urement (mass/volume)on 09-30-2021 Calcium [Mass/Vol] 9.7 mg/dL 8.5-10.1 [facility] Work Phone: Serum or plasma creatinine m easurement (mass/volume)on 09-30-2021 Creatinine [Mass/Vol] 0.75 mg/dL 0.55-1.02 [facility] Work Phone: Comment on above: The validity of the calculated GFR & GFRAA in patients over 70 years has not been determined. Clinical correlation is essential. Serum or plasma urea nitroge n measurement (mass/volume)on 09-30-2021 Urea nitrogen [Mass/Vol] 18 mg/dL 7-18 [facility] Work Phone: Thin prep Papanicolaou smear with manual screeningon 09-30-2021 Thin prep Papanicolaou smear with manual screening 2 5-15 [facility] Work Phone: Absolute lymphocyte counton 07-01-2021 Lymphocytes Auto (Unsp spec) [#/Vol] 0.65 10*3/uL 0.83-4.51 [facility] Work Phone: Basophil percentageon 2021 Basophils/100 WBC (Bld) 0.6 % 0-1 [facility] Work Phone: Bilirubin [Mass/Vol] 0.40 mg/dL 0.20-1.00 [facility] Work Phone: Comment on above: For patients on eltr ombopag therapy, use of Dimension Stewart TBIL is not recommended. Chloride [Moles/Vol] 107 mmol/L 98-107 [facility] Work Phone: Eosinophils/100 WBC (Bld) 2.5 % 0-5 [facility] Work Phone: Glucose [Mass/Vol] 88 mg/dL 74-106 [facility] Work Phone: Neutrophils (Bld) [#/Vol] 6.2 10*3/uL 2.0-7.7 [facility] Work Phone: Neutrophils/100 WBC (Bld) 76.5 % 47-70 [facility] Work Phone: Potassium [Moles/Vol] 3.9 mmol/L 3.5-5.1 [facility] Work Phone: Protein [Mass/Vol] 6.7 g/dL 6.4-8.2 [facility] Work Phone: Sodium [Moles/Vol] 141 mmol/L 136-145 [place] [facility] Work Phone: WBC (Bld) [#/Vol] 8.1 10*3/uL 4.4-11.0 [facility] Work Phone: Blood erythrocytes count (nu mber/volume)on 07-01-2021 RBC (Bld) [#/Vol] 4.20 10*6/uL 4.2-[facility].[address] [facility]: Blood hemoglobin measurement (mass/volume)on 07-01-2021 Hemoglobin (Bld) [Mass/Vol] 13.2 g/dL 12.0-15.0 [facility] Work Phone: Blood lymphocytes/100 leukoc yteson 07-01-2021 Lymphocytes/100 WBC (Bld) 8.1 % 19-41 [facility] Work Phone: Blood monocytes/100 leukocyt eson 07-01-2021 Monocytes/100 WBC (Bld) 11.9 % 0-10 [facility] Work Phone: Blood platelet mean volumeon 07-01-2021 Platelet mean volume (Bld) [Entitic vol] 12.1 fL 6.2-12.0 [facility] Work Phone: Determination of erythrocyte mean corpuscular volume (MCV)on 07-01-2021 MCV (RBC) [Entitic vol] 96.2 fL 81-99 [facility] Work Phone: Hematocrit Auto (Bld) [Volum e fraction]on 07-01-2021 Hematocrit (Bld) [Volume fraction] 40.4 % 37-47 [facility] Work Phone: [phone] Laboratory - Chemistry and C hemistry - challengeon 07-01-2021 ALP [Catalytic activity/Vol] 98 U/L 45-117 [facility] Work Phone: [phone] ALT [Catalytic activity/Vol] 18 U/L 13-56 [facility] Work Phone: [phone] CO2 [Moles/Vol] 30.0 mmol/L 21.0-32.0 [facility] Work Phone: [phone] Globulin (S) [Mass/Vol] 3.2 g/dL 2.2-4.2 [facility] Work Phone: [phone] Urea nitrogen/Creatinine [Mass ratio] 18.3 mg/mg 10-20 [facility] Work Phone: [phone] Laboratory - Hematology and Cell countson 07-01-2021 Erythrocyte distribution width (RBC) [Entitic vol] 55.9 fL 35.1-43.9 [facility] Work Phone: [phone] Erythrocyte distribution width (RBC) [Ratio] 15.9 % 11.6-14.6 [facility] Work Phone: [phone] Immature granulocytes/100 WBC (Bld) 0.400 % 0.0-0.9 [facility] Work Phone: [phone] Comment on above: IG% - Immature Granu locytes (promyelocytes, myelocytes and metamyelocytes) > 1% indicates that a LEFT SHIFT is Present. MCH (RBC) [Entitic mass] 31.4 pg 27.0-32.0 [facility] Work Phone: [phone] Nucleated RBC/100 WBC (Bld) [Ratio] 0 % 0-5 [facility] Work Phone: [phone] MCHC Auto (RBC) [Mass/Vol]on 07-01-2021 MCHC (RBC) [Mass/Vol] 32.7 g/dL 32-36 [facility] Work Phone: [phone] Panel Informationon 07-01 Estimated GFR (MDRD) Amer 93 mL/min >60 [facility] Work Phone: Comment on above: GFR Calc Estimated GFR (MDRD) Non-Af Amer 77 mL/min >60 [facility] Work Phone: Comment on above: Non- GFR Calc Platelets bldon 07-01-2021 Platelets (Bld) [#/Vol] 296 10*3/uL 150-450 [facility] Work Phone: Serum or plasma albumin anay urement (mass/volume)on 07-01-2021 Albumin [Mass/Vol] 3.5 g/dL 3.2-5.0 [facility] Work Phone: Serum or plasma albumin/glob ulin mass ratioon 07-01-2021 Albumin/Globulin [Mass ratio] 1.1 {ratio} 0.9-2.4 [facility] Work Phone: Serum or plasma calcium anay urement (mass/volume)on 07-01-2021 Calcium [Mass/Vol] 9.0 mg/dL 8.5-10.1 [facility] Work Phone: Serum or plasma creatinine m easurement (mass/volume)on 07-01-2021 Creatinine [Mass/Vol] 0.76 mg/dL 0.55-1.02 [facility] Work Phone: Comment on above: The validity of the calculated GFR & GFRAA in patients over 70 years has not been determined. Clinical correlation is essential. Serum or plasma urea nitroge n measurement (mass/volume)on 07-01-2021 Urea nitrogen [Mass/Vol] 14 mg/dL 7-18 [facility] Work Phone: [phone] Thin prep Papanicolaou smear with manual screeningon 07-01-2021 Thin prep Papanicolaou smear with manual screening 32 U/L 15-37 [facility] Work Phone: [phone] Thin prep Papanicolaou smear with manual screening 4 5-15 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 Thyroid stimulating hormone (TSH) 1.090 u[iU]/mL Invalid Interpretation Code [employer] Work Phone: [phone] Erythrocytes (RBC) 3.98 10*6/uL Invalid Interpretation Code [employer] Work Phone: [phone] Hematocrit (HCT) 41.8 % Invalid Interpretation Code [employer] Work Phone: [phone] Hemoglobin (HGB) 12.5 g/dL Invalid Interpretation Code [employer] Work Phone: [phone] MCH 31.4 pg Invalid Interpretation Code [employer] Work Phone: [phone] MCHC 29.9 g/dL Low [employer] Work Phone: [phone] MCV 105.0 fL High [employer] Work Phone: [phone] Platelets 310 10*3/mm3 Invalid Interpretation Code [employer] Work Phone: [phone] PMV by Dawna 11.6 fL Invalid Interpretation Code [employer] Work Phone: [phone] RDW-CA 15.0 % Invalid Interpretation Code [employer] Work Phone: [phone] WBC (Leukocytes) 7.36 10*3/uL Invalid Interpretation Code [employer] Work Phone: [phone] Clinical Lists Update: [employer]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8 mg/mg Invalid Interpretation Code [employer] Work Phone: [phone] Calcium 9.5 mg/dL Invalid Interpretation Code [employer] Work Phone: [phone] Chloride 108 mmol/L Invalid Interpretation Code [employer] Work Phone: [phone] Cholesterol 244 mg/dL Invalid Interpretation Code [employer] Work Phone: [phone] Cholesterol to HDL Ratio 25 {ratio} Invalid Interpretation Code [employer] Work Phone: [phone] CO2 30 mmol/L Invalid Interpretation Code [employer] Work Phone: [phone] CO2 ppres (BldV) 30 mmol/L [employer] Work Phone: [phone] Creatinine 0.83 mg/dL Invalid Interpretation Code [employer] Work Phone: [phone] Globulin 2.3 g/dL Invalid Interpretation Code [employer] Work Phone: [phone] Globulin mass conc (S) 2.3 g/dL [employer] Work Phone: [phone] Glucose 88 mg/dL Invalid Interpretation Code [employer] Work Phone: [phone] Glucose mass conc 88 mg/dL [employer] Work Phone: [phone] HDL Cholesterol 98 mg/dL Invalid Interpretation Code [employer] Work Phone: [phone] LDL Cholesterol 125 mg/dL Invalid Interpretation Code [employer] Work Phone: [phone] Potassium 3.9 mmol/L Invalid Interpretation Code [employer] Work Phone: [phone] Protein 6.3 g/dL Invalid Interpretation Code [employer] Work Phone: [phone] Sodium 143 mmol/L Invalid Interpretation Code [employer] Work Phone: [phone] Thyroid stimulating hormone (TSH) 1.53 u[iU]/mL [employer] Work Phone: [phone] Triglyceride 105 mg/dL Invalid Interpretation Code [employer] Work Phone: [phone] Urea nitrogen 16 mg/dL Invalid Interpretation Code [employer] Work Phone: [phone] Office Visiton 10-20-2016 Documentation of current medications (procedure) Done Invalid Interpretation Code [employer] Work Phone: [phone] Protein mass conc Done [employer] Work Phone: Office Visit: [facility] 05-01-20 15 Tobacco smoking status NHIS Never smoker [employer] Phone: [phone] Tobacco use [facility] Never smoker Invalid Interpretation Code [employer] [facility] Phone: [phone] Office Visiton 11-06-2014 cardiac risk group B Invalid Interpretation Code [employer] [facility] Phone: [phone] General cardiovascular disease 10Y risk [#] Monse.Jessica'Pedro 3 % Invalid Interpretation Code [employer] Work Phone: [phone] Replaced Document: [facility] [facility] CG Observationson 11-06-2014 EKG QRS axis -14 deg [employer] Work Phone: [phone] electrocardiogram interpretation Sinus Bradycardia - occasional ectopic ventricular beat Low voltage in limb leads. -Inferior infarct -age undetermined. ABNORMAL Invalid Interpretation Code [employer] [facility] Phone: [phone] GE use only - for [employer] import when terms are not otherwise specified 407 ms Invalid Interpretation Code [employer] [facility] Phone: [phone] Interpretation Sinus Bradycardia - occasional ectopic ventricular beat Low voltage in limb leads. -Inferior infarct -age undetermined. ABNORMAL [employer] Work Phone: [phone] P Cornucopia 59 deg [employer] Work Phone: [phone] P wave axis, electrocardiogram 59 deg Invalid Interpretation Code [employer] [facility] Phone: [phone] WI Interval 130 ms [employer] Work Phone: [phone] WI interval, electrocardiogram 130 ms Invalid Interpretation Code [employer] Work Phone: [phone] Pulse (Heart Rate) 56 /min Invalid Interpretation Code [employer] Work Phone: [phone] QRS axis, electrocardiogram -14 deg Invalid Interpretation Code [employer] [facility] Phone: [phone] QRS Duration 80 ms [employer] Work Phone: [phone] QRS duration, electrocardiogram 80 ms Invalid Interpretation Code [employer] [facility] Phone: QT Interval new path ms [employer] Work Phone: QT interval, electrocardiogram new path ms Invalid Interpretation Code [employer] Work Phone: QTc Jay 407 ms [facility] Work Phone: [phone] T Cornucopia -17 deg [facility] Work Phone: [phone] T wave axis, electrocardiogram -17 deg Invalid Interpretation Code [facility] Work Phone: [phone] 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 Alanine aminotransferase (ALT) 15 U/L Invalid Interpretation Code [facility] Work Phone: [phone] Alkaline phosphatase (ALP) 94 U/L Invalid Interpretation Code [facility] Work Phone: [phone] Anion gap 9 mmol/L Invalid Interpretation Code [facility] Work Phone: [phone] Anion gap molar conc 9 mmol/L [facility] Work Phone: [phone] Aspartate aminotransferase (AST) 27 U/L Invalid Interpretation Code [facility] Work Phone: [phone] Bilirubin (total) 0.50 mg/dL Invalid Interpretation Code [facility] Work Phone: [phone] BUN/Creatinine Ratio 22.2 mg/mg Invalid Interpretation Code [facility] Work Phone: [phone] Calcium 10.1 mg/dL Invalid Interpretation Code [facility] Work Phone: [phone] Chloride 104 mmol/L Invalid Interpretation Code [facility] Work Phone: [phone] CO2 28.0 mmol/L Invalid Interpretation Code [facility] Work Phone: [phone] Creatinine 0.9 mg/dL Invalid Interpretation Code [facility] Work Phone: [phone] Erythrocytes (RBC) 4.23 10*6/uL Invalid Interpretation Code [facility] Work Phone: [phone] Glucose 68 mg/dL Low [facility] Work Phone: [phone] Hematocrit (HCT) 38.8 % Invalid Interpretation Code [facility] Work Phone: [phone] Hematocrit Volume Fraction (Bld) 38.8 % [facility] Work Phone: [phone] Hemoglobin (HGB) 12.1 g/dL [facility] Work Phone: [phone] MCH 28.6 pg Invalid Interpretation Code [facility] Work Phone: [phone] MCH Entitic mass (RBC) 28.6 pg [facility] Work Phone: [phone] MCHC 31.2 g/dL Invalid Interpretation Code [facility] Work Phone: [phone] MCHC mass conc (RBC) 31.2 g/dL [facility] Work Phone: [phone] MCV 91.7 fL Invalid Interpretation Code [facility] Work Phone: [phone] MCV Entitic volume (RBC) 91.7 fL [facility] Work Phone: [phone] Platelets 306 10*3/mm3 Invalid Interpretation Code [facility] Work Phone: [phone] Platelets #/vol (Bld) 306 10*3/mm3 [facility] Work Phone: [phone] Potassium 3.7 mmol/L Invalid Interpretation Code [facility] Work Phone: [phone] RBC #/vol (Bld) 4.23 10*6/uL [facility] Work Phone: [phone] Sodium 141 mmol/L Invalid Interpretation Code [facility] Work Phone: [phone] Urea nitrogen 20 mg/dL Invalid Interpretation Code [facility] Work Phone: [phone] WBC #/vol (Bld) 8.7 10*3/uL [facility] Work Phone: [phone] WBC (Leukocytes) 8.7 10*3/uL Invalid Interpretation Code [facility] Work Phone: [phone] Replaced Document: Bronson Ray CG Observationson 01-26-2014 Pulse (Heart Rate) 398 ms Invalid Interpretation Code [facility] Work Phone: [phone] Clinical Lists Update: 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 Cholesterol 209 mg/dL High [facility] Work Phone: [phone] HDL Cholesterol 83 mg/dL High [facility] Work Phone: [phone] LDL Cholesterol 112 mg/dL Invalid Interpretation Code [facility] Work Phone: [phone] Thyroid stimulating hormone (TSH) 0.81 u[iU]/mL Invalid Interpretation Code [facility] Work Phone: [phone] Triglyceride 69 mg/dL Invalid Interpretation Code [facility] Work Phone: [phone] very low density lipoproteins 14 mg/dL Invalid Interpretation Code [facility] Work Phone: [phone] Albumin 3.5 g/dL Invalid Interpretation Code [facility] Work Phone: [phone] Erythrocyte distribution width Ratio (RBC) 17.0 % [facility] Work Phone: [phone] Globulin 3.6 g/dL Invalid Interpretation Code [facility] Work Phone: [phone] Platelet mean volume Entitic volume (Bld) 11.2 fL [facility] Work Phone: [phone] PMV by Dawna 11.2 fL Invalid Interpretation Code [facility] Work Phone: [phone] Protein 7.1 g/dL Invalid Interpretation Code [facility] Work Phone: [phone] RDW-CA 17.0 % Invalid Interpretation Code [facility] Work Phone: [phone] COVID-19 virus antigen assay SARS-CoV-2 (COVID-19) Ag IA.rapid Ql (Resp) [facility] Work Phone: Culture, urine Bacteria identified Cx Nom (U) GNR lactose wing commander [facility] Work Phone: [phone] Vital Signs Date Time Vital Sign Value Performing Clinician Facility 06-30-2023 10:32-0500 Body temperature 97.5 [degF] LIGHT OIL OPERATOR-C Milagros 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 06-30-2023 10:32-0500 Diastolic blood pressure 91 mm[Hg] LIGHT OIL OPERATOR-Micheal 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 06-30-2023 10:32-0500 Heart rate 81 /min LIGHT OIL OPERATOR-Micheal 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 06-30-2023 10:32-0500 Respiratory rate 16 /min LIGHT OIL OPERATOR-Micheal 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 06-30-2023 10:32-0500 SaO2% (BldA) [Mass fraction] 98 % LIGHT OIL OPERATOR-C Milagros 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 06-30-2023 10:32-0500 Systolic blood pressure 149 mm[Hg] LIGHT OIL OPERATOR-C Milagros 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 06-30-2023 09:37-0500 Body mass index (BMI) [Ratio] 21.4 kg/m2 LIGHT OIL OPERATOR-C Milagros 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 06-30-2023 09:37-0500 Body weight 51.5 kg LIGHT OIL OPERATOR-C Milagros 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 06-30-2023 09:35-0500 Body height 154.94 cm LIGHT OIL OPERATOR-C Milagros 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 03-17-2023 11:31-0500 Body mass index (BMI) [Ratio] 21.1 kg/m2 LIGHT OIL OPERATOR-C Milagros 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 03-17-2023 11:31-0500 Body weight 50.8 kg LIGHT OIL OPERATOR-C Milagros 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 03-17-2023 11:31-0500 Diastolic blood pressure 74 mm[Hg] LIGHT OIL OPERATOR-C Milagros 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 03-17-2023 11:31-0500 Heart rate 81 /min LIGHT OIL OPERATOR-C Milagros 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 03-17-2023 11:31-0500 Respiratory rate 16 /min LIGHT OIL OPERATOR-C Milagros 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 03-17-2023 11:31-0500 Systolic blood pressure 117 mm[Hg] LIGHT OIL OPERATOR-C Milagros 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 11-28-2022 00:45-0400 Diastolic blood pressure 52 mm[Hg] LIGHT OIL OPERATOR-C Milagros 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 11-28-2022 00:45-0400 Heart rate 76 /min LIGHT OIL OPERATOR-C Milagros 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 11-28-2022 00:45-0400 Respiratory rate 16 /min LIGHT OIL OPERATOR-C Milagros 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 11-28-2022 00:45-0400 Systolic blood pressure 92 mm[Hg] LIGHT OIL OPERATOR-C Milagros 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 11-27-2022 21:58-0400 Body height 157.48 cm LIGHT OIL OPERATOR-Micheal 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 11-27-2022 21:58-0400 Body mass index (BMI) [Ratio] 21.4 kg/m2 LIGHT OIL OPERATOR-Micheal 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 11-27-2022 21:58-0400 Body temperature 100.7 [degF] LIGHT OIL OPERATOR-C Milagros 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 11-27-2022 21:58-0400 Body weight 53.1 kg LIGHT OIL OPERATOR-Micheal 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 11-27-2022 21:58-0400 SaO2% (BldA) [Mass fraction] 93 % LIGHT OIL OPERATOR-Micheal 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 11-27-2022 14:43-0400 Body temperature 98.9 [degF] LIGHT OIL OPERATOR-Micheal 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 11-27-2022 14:43-0400 Diastolic blood pressure 87 mm[Hg] LIGHT OIL OPERATOR-Micheal 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 11-27-2022 14:43-0400 Heart rate 95 /min LIGHT OIL OPERATOR-C Milagros 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 11-27-2022 14:43-0400 Respiratory rate 16 /min LIGHT OIL OPERATOR-C Milagros 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 11-27-2022 14:43-0400 SaO2% (BldA) [Mass fraction] 97 % LIGHT OIL OPERATOR-C Milagros 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 11-27-2022 14:43-0400 Systolic blood pressure 132 mm[Hg] LIGHT OIL OPERATOR-C Milagros 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 11-27-2022 11:22-0400 Body height 157.48 cm LIGHT OIL OPERATOR-C Milagros 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 11-27-2022 11:22-0400 Body mass index (BMI) [Ratio] 20.2 kg/m2 LIGHT OIL OPERATOR-C Milagros 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 11-27-2022 11:22-0400 Body weight 50.34 kg LIGHT OIL OPERATOR-C Milagros 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 10-17-2022 11:09-0400 Body temperature 98.3 [degF] LIGHT OIL OPERATOR-C Milagros 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 10-17-2022 11:09-0400 Diastolic blood pressure 64 mm[Hg] LIGHT OIL OPERATOR-C Milagros 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 10-17-2022 11:09-0400 Heart rate 69 /min LIGHT OIL OPERATOR-C Milagros 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 10-17-2022 11:09-0400 Respiratory rate 16 /min LIGHT OIL OPERATOR-C Milagros 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 10-17-2022 11:09-0400 SaO2% (BldA) [Mass fraction] 94 % LIGHT OIL OPERATOR-C Milagros 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 10-17-2022 11:09-0400 Systolic blood pressure 100 mm[Hg] LIGHT OIL OPERATOR-C Milagros 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 10-14-2022 10:18-0400 Body mass index (BMI) [Ratio] 20.9 kg/m2 LIGHT OIL OPERATOR-C Milagros 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 10-14-2022 10:18-0400 Body weight 51.93 kg LIGHT OIL OPERATOR-C Milagros 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 10-09-2022 13:25-0400 Body temperature 97.6 [degF] LIGHT OIL OPERATOR-C Milagros 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 10-09-2022 13:25-0400 Diastolic blood pressure 59 mm[Hg] LIGHT OIL OPERATOR-C Milagros 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 10-09-2022 13:25-0400 Heart rate 75 /min LIGHT OIL OPERATOR-C Milagros 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 10-09-2022 13:25-0400 Respiratory rate 18 /min LIGHT OIL OPERATOR-C Milagros 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 10-09-2022 13:25-0400 SaO2% (BldA) [Mass fraction] 100 % LIGHT OIL OPERATOR-C Milagros 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 10-09-2022 13:25-0400 Systolic blood pressure 109 mm[Hg] LIGHT OIL OPERATOR-C Milagros 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 10-09-2022 12:33-0400 Body height 157.48 cm LIGHT OIL OPERATOR-C Milagros 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 10-09-2022 12:33-0400 Body mass index (BMI) [Ratio] 21.6 kg/m2 LIGHT OIL OPERATOR-C Milagros 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 10-09-2022 12:33-0400 Body weight 53.58 kg LIGHT OIL OPERATOR-C Milagros 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 10-09-2022 11:30-0400 Body temperature 97.6 [degF] LIGHT OIL OPERATOR-C Milagros 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 10-09-2022 11:30-0400 Diastolic blood pressure 70 mm[Hg] LIGHT OIL OPERATOR-C Milagros 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 10-09-2022 11:30-0400 Heart rate 78 /min LIGHT OIL OPERATOR-C Milagros 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 10-09-2022 11:30-0400 Respiratory rate 16 /min LIGHT OIL OPERATOR-C Milagros 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 10-09-2022 11:30-0400 SaO2% (BldA) [Mass fraction] 98 % LIGHT OIL OPERATOR-C Milagros 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 10-09-2022 11:30-0400 Systolic blood pressure 125 mm[Hg] LIGHT OIL OPERATOR-C Milagros 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 10-08-2022 11:54-0400 Body weight 53.52 kg LIGHT OIL OPERATOR-C Milagros 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 10-07-2022 11:25-0400 Body mass index (BMI) [Ratio] 21.5 kg/m2 LIGHT OIL OPERATOR-C Milagros 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 10-02-2022 13:34-0400 Body temperature 98.1 [degF] LIGHT OIL OPERATOR-C Milagros 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 10-02-2022 13:34-0400 Diastolic blood pressure 59 mm[Hg] LIGHT OIL OPERATOR-C Milagros 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 10-02-2022 13:34-0400 Heart rate 86 /min LIGHT OIL OPERATOR-C Milagros 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 10-02-2022 13:34-0400 Respiratory rate 18 /min LIGHT OIL OPERATOR-C Milagros 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 10-02-2022 13:34-0400 SaO2% (BldA) [Mass fraction] 94 % LIGHT OIL OPERATOR-C Milagros 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 10-02-2022 13:34-0400 Systolic blood pressure 95 mm[Hg] LIGHT OIL OPERATOR-C Milagros 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 10-02-2022 04:23-0400 Body mass index (BMI) [Ratio] 20.7 kg/m2 LIGHT OIL OPERATOR-C Milagros 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 10-02-2022 04:23-0400 Body weight 51.2 kg LIGHT OIL OPERATOR-C Milagros 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 09-30-2022 22:25-0400 Inhaled oxygen flow rate 2 L/min LIGHT OIL OPERATOR-C Milagros 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 05-27-2022 08:57-0500 Body height 160.02 cm LIGHT OIL OPERATOR-C Milagros 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 05-27-2022 08:49-0500 Body mass index (BMI) [Ratio] 20.2 kg/m2 LIGHT OIL OPERATOR-C Milagros 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 05-27-2022 08:49-0500 Body weight 51.82 kg LIGHT OIL OPERATOR-C Milagros 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 05-27-2022 08:49-0500 Diastolic blood pressure 82 mm[Hg] LIGHT OIL OPERATOR-C Milagros 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 05-27-2022 08:49-0500 Systolic blood pressure 124 mm[Hg] LIGHT OIL OPERATOR-C Milagros 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 05-19-2022 10:25-0500 Diastolic Blood Pressure Non-Invasive [address] ZULEMA MOLINA MD [facility] 05-19-2022 10:25-0500 Systolic Blood Pressure Non-Invasive [address] ZULEMA MOLINA MD [facility] 05-19-2022 10:21-0500 Diastolic Blood Pressure Non-Invasive [address] ZULEMA MOLINA MD [facility] 05-19-2022 10:21-0500 Heart rate 67 /min DR ZULEMA MOLINA MD [facility] 05-19-2022 10:21-0500 Respiratory rate 16 /min DR ZULEMA MOLINA MD [facility] 05-19-2022 10:21-0500 Systolic Blood Pressure Non-Invasive [address] ZULEMA MOLINA MD [facility] 05-19-2022 10:09-0500 Body temperature 97.16 [degF] DR ZULEMA MOLINA MD [facility] 05-19-2022 10:09-0500 Diastolic Blood Pressure Non-Invasive 68 1 DR ZULEMA MOLINA MD [facility] 05-19-2022 10:09-0500 Heart rate 69 /min DR ZULEMA MOLINA MD [facility] 05-19-2022 10:09-0500 Respiratory rate 22 /min DR ZULEMA MOLINA MD [facility] 05-19-2022 10:09-0500 Systolic Blood Pressure Non-Invasive [address] ZULEMA MOLINA MD [facility] 05-19-2022 10:05-0500 Heart rate 77 /min DR ZULEMA MOLINA MD [facility] 05-19-2022 10:05-0500 Respiratory Rate - Anes 23 br/min DR ZULEMA MOLINA MD [facility] 05-19-2022 10:00-0500 Respiratory Rate - Anes 17 br/min DR ZULEMA MOLINA MD [facility] 05-19-2022 09:55-0500 Respiratory Rate - Anes 20 br/min DR ZULEMA MOLINA MD [facility] 05-19-2022 07:58-[address] ZULEMA MOLINA MD [facility] 05-19-2022 07:58-0500 Body height [address] ZULEMA MOLINA MD [facility] 05-19-2022 07:58-0500 Body temperature 97.16 [degF] DR ZULEMA MOLINA MD [facility] 05-19-2022 07:58-0500 Body weight [address] ZULEMA MOLINA MD [facility] 05-19-2022 07:58-0500 Heart rate 71 /min DR ZULEMA MOLINA MD [facility] 05-19-2022 07:58-0500 Respiratory rate 15 /min DR ZULEMA MOLINA MD [facility] 05-11-2022 15:20-0500 Diastolic blood pressure 72 mm[Hg] [facility] 05-11-2022 15:20-0500 SaO2% (BldA) [Mass fraction] 98 % [facility] 05-11-2022 15:20-0500 Systolic blood pressure 115 mm[Hg] [facility] 05-11-2022 12:41-0500 Heart rate 82 /min [facility] 05-11-2022 12:41-0500 Respiratory rate 18 /min [facility] 05-11-2022 10:17-0500 Body height 160.02 cm [facility] Work Phone: 05-11-2022 10:17-0500 Body mass index (BMI) [Ratio] 19.3 kg/m2 [facility] 05-11-2022 10:17-0500 Body temperature 96.9 [degF] [facility] 05-11-2022 10:17-0500 Body weight 49.44 kg [facility] 05-04-2022 12:07-0500 Body height 160.02 cm [facility] Work Phone: 05-04-2022 12:07-0500 Body mass index (BMI) [Ratio] 19.6 kg/m2 [facility] 05-04-2022 12:07-0500 Body temperature 98.3 [degF] [facility] 05-04-2022 12:07-0500 Body weight 50.34 kg [facility] 05-04-2022 12:07-0500 Diastolic blood pressure 102 mm[Hg] [facility] 05-04-2022 12:07-0500 Heart rate 116 /min [facility] 05-04-2022 12:07-0500 Respiratory rate 16 /min [facility] 05-04-2022 12:07-0500 SaO2% (BldA) [Mass fraction] 98 % [facility] 05-04-2022 12:07-0500 Systolic blood pressure 150 mm[Hg] [facility] 12-18-2021 15:41-0400 Body height 160.02 cm LIGHT OIL OPERATOR-C Milagros 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 Work Phone: 12-18-2021 15:41-0400 Body mass index (BMI) [Ratio] 23 kg/m2 LIGHT OIL OPERATOR-C Milagros 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 Work Phone: 12-18-2021 15:30-0400 Body weight 50.8 kg LIGHT OIL OPERATOR-C Milagros 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 Work Phone: 12-18-2021 15:30-0400 Diastolic blood pressure 78 mm[Hg] LIGHT OIL OPERATOR-C Milagros 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 Work Phone: 12-18-2021 15:30-0400 Heart rate 84 /min LIGHT OIL OPERATOR-C Milagros 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 Work Phone: 12-18-2021 15:30-0400 Respiratory rate 16 /min LIGHT OIL OPERATOR-C Milagros 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 Work Phone: 12-18-2021 15:30-0400 Systolic blood pressure 114 mm[Hg] LIGHT OIL OPERATOR-C Milagros 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 Work Phone: 10-18-2021 20:33-0400 Diastolic blood pressure 87 mm[Hg] LIGHT OIL OPERATOR-C Milagros 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 Work Phone: 10-18-2021 20:33-0400 Systolic blood pressure 125 mm[Hg] LIGHT OIL OPERATOR-C Milagros 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 Work Phone: 10-18-2021 16:52-0400 Body height 160.02 cm LIGHT OIL OPERATOR-C Milagros 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 Work Phone: 10-18-2021 16:52-0400 Body mass index (BMI) [Ratio] 20 kg/m2 LIGHT OIL OPERATOR-C Milagros 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 Work Phone: 10-18-2021 16:52-0400 Body temperature 99 [degF] LIGHT OIL OPERATOR-C Milagros 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 Work Phone: 10-18-2021 16:52-0400 Body weight 51.4 kg LIGHT OIL OPERATOR-C Milagros 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 Work Phone: 10-18-2021 16:52-0400 Heart rate 100 /min LIGHT OIL OPERATOR-C Milagros 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 Work Phone: 10-18-2021 16:52-0400 Respiratory rate 16 /min LIGHT OIL OPERATOR-C Milagros 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 Work Phone: 10-18-2021 16:52-0400 SaO2% (BldA) [Mass fraction] 98 % LIGHT OIL OPERATOR-C Milagros 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 Work Phone: 10-01-2021 14:42-0400 Diastolic blood pressure 78 mm[Hg] LIGHT OIL OPERATOR-C Geraldine Leigh LIGHT OIL OPERATOR Work Phone: [facility] Work Phone: 10-01-2021 14:42-0400 Heart rate 90 /min LIGHT OIL OPERATOR-C Geraldine Leigh LIGHT OIL OPERATOR Work Phone: [facility] Work Phone: 10-01-2021 14:42-0400 Respiratory rate 16 /min LIGHT OIL OPERATOR-C Geraldine Lu LIGHT OIL OPERATOR Work Phone: [facility] Work Phone: 10-01-2021 14:42-0400 SaO2% (BldA) [Mass fraction] 98 % LIGHT OIL OPERATOR-C Geraldine Lu LIGHT OIL OPERATOR Work Phone: [facility] Work Phone: 10-01-2021 14:42-0400 Systolic blood pressure 122 mm[Hg] LIGHT OIL OPERATOR-C Geraldine Lu LIGHT OIL OPERATOR Work Phone: [facility] Work Phone: 10-01-2021 13:45-0400 Body temperature 97.5 [degF] LIGHT OIL OPERATOR-C Geraldine Lu LIGHT OIL OPERATOR Work Phone: [facility] Work Phone: 10-01-2021 10:43-0400 Body height 160.02 cm LIGHT OIL OPERATOR-C Geraldine Lu LIGHT OIL OPERATOR Work Phone: [facility] Work Phone: 10-01-2021 10:43-0400 Body mass index (BMI) [Ratio] 19.9 kg/m2 LIGHT OIL OPERATOR-C Geraldine Lu LIGHT OIL OPERATOR Work Phone: [facility] Work Phone: 10-01-2021 10:43-0400 Body weight 51 kg LIGHT OIL OPERATOR-C Geraldine Lu LIGHT OIL OPERATOR Work Phone: [facility] Work Phone: 09-16-2021 09:33-0400 Body height 160.02 cm LIGHT OIL OPERATOR-C Geraldine Lu LIGHT OIL OPERATOR Work Phone: [facility] Work Phone: 09-16-2021 09:33-0400 Body mass index (BMI) [Ratio] 20.2 kg/m2 LIGHT OIL OPERATOR-C Geraldine Lu LIGHT OIL OPERATOR Work Phone: [facility] Work Phone: 09-16-2021 09:33-0400 Body temperature 97.2 [degF] LIGHT OIL OPERATOR-C Geraldine Lu LIGHT OIL OPERATOR Work Phone: [facility] Work Phone: 09-16-2021 09:33-0400 Body weight 51.82 kg LIGHT OIL OPERATOR-C Geraldine Lu LIGHT OIL OPERATOR Work Phone: [facility] Work Phone: 09-16-2021 09:33-0400 Diastolic blood pressure 82 mm[Hg] LIGHT OIL OPERATOR-C Geraldine Lu LIGHT OIL OPERATOR Work Phone: [facility] Work Phone: 09-16-2021 09:33-0400 Heart rate 70 /min LIGHT OIL OPERATOR-C Geraldine Lu LIGHT OIL OPERATOR Work Phone: [facility] Work Phone: 09-16-2021 09:33-0400 Respiratory rate 17 /min LIGHT OIL OPERATOR-C Geraldine Lu LIGHT OIL OPERATOR Work Phone: [facility] Work Phone: 09-16-2021 09:33-0400 SaO2% (BldA) [Mass fraction] 96 % LIGHT OIL OPERATOR-C Geraldine Lu LIGHT OIL OPERATOR Work Phone: [facility] Work Phone: 09-16-2021 09:33-0400 Systolic blood pressure 133 mm[Hg] LIGHT OIL OPERATOR-C Geraldine Lu LIGHT OIL OPERATOR Work Phone: [facility] Work Phone: 09-09-2021 14:54-0400 Body weight 53.07 kg LIGHT OIL OPERATOR-C Geraldine Lu LIGHT OIL OPERATOR Work Phone: [facility] Work Phone: 09-09-2021 14:54-0400 Diastolic blood pressure 78 mm[Hg] LIGHT OIL OPERATOR-C Geraldine Lu LIGHT OIL OPERATOR Work Phone: [facility] Work Phone: 09-09-2021 14:54-0400 Systolic blood pressure 118 mm[Hg] LIGHT OIL OPERATOR-C Geraldine Lu LIGHT OIL OPERATOR Work Phone: [facility] Work Phone: 07-17-2021 09:58-0500 Body weight 52.21 kg LIGHT OIL OPERATOR-C Geraldine Lu LIGHT OIL OPERATOR Work Phone: [facility] Work Phone: 07-17-2021 09:58-0500 Diastolic blood pressure 74 mm[Hg] LIGHT OIL OPERATOR-C Geraldine Lu LIGHT OIL OPERATOR Work Phone: [facility] Work Phone: 07-17-2021 09:58-0500 Systolic blood pressure 118 mm[Hg] LIGHT OIL OPERATOR-C Geraldine Lu LIGHT OIL OPERATOR Work Phone: [facility] Work Phone: 07-02-2021 15:40-0500 Body temperature 98.1 [degF] LIGHT OIL OPERATOR-C Geraldine Lu LIGHT OIL OPERATOR Work Phone: [facility] Work Phone: 07-02-2021 15:40-0500 Diastolic blood pressure 59 mm[Hg] LIGHT OIL OPERATOR-C Geraldine Lu LIGHT OIL OPERATOR Work Phone: [facility] Work Phone: 07-02-2021 15:40-0500 Heart rate 79 /min LIGHT OIL OPERATOR-C Geraldine Lu LIGHT OIL OPERATOR Work Phone: [facility] Work Phone: 07-02-2021 15:40-0500 Respiratory rate 16 /min LIGHT OIL OPERATOR-C Geraldine Lu LIGHT OIL OPERATOR Work Phone: [facility] Work Phone: 07-02-2021 15:40-0500 SaO2% (BldA) [Mass fraction] 94 % LIGHT OIL OPERATOR-C Geraldine Lu LIGHT OIL OPERATOR Work Phone: [facility] Work Phone: 07-02-2021 15:40-0500 Systolic blood pressure 106 mm[Hg] LIGHT OIL OPERATOR-C Geraldine Lu LIGHT OIL OPERATOR Work Phone: [facility] Work Phone: 07-02-2021 12:11-0500 Body mass index (BMI) [Ratio] 21.3 kg/m2 LIGHT OIL OPERATOR-C Geraldine Lu LIGHT OIL OPERATOR Work Phone: [facility] Work Phone: 07-02-2021 12:11-0500 Body weight 52.9 kg LIGHT OIL OPERATOR-C Geraldine Lu LIGHT OIL OPERATOR Work Phone: [facility] Work Phone: 06-19-2021 09:58-0500 Body mass index (BMI) [Ratio] 20.7 kg/m2 LIGHT OIL OPERATOR-C Geraldine Lu LIGHT OIL OPERATOR Work Phone: [facility] Work Phone: 06-19-2021 09:58-0500 Body weight 53.07 kg LIGHT OIL OPERATOR-C Geraldine Lu LIGHT OIL OPERATOR Work Phone: [facility] Work Phone: 06-19-2021 09:58-0500 Diastolic blood pressure 80 mm[Hg] LIGHT OIL OPERATOR-C Geraldine Lu LIGHT OIL OPERATOR Work Phone: [facility] Work Phone: 06-19-2021 09:58-0500 Systolic blood pressure 130 mm[Hg] LIGHT OIL OPERATOR-C Geraldine Lu LIGHT OIL OPERATOR Work Phone: [facility] Work Phone: 10-20-2016 13:08-0400 BMI (Body Mass Index) 24.13 kg/m2 Matias Best MD [facility] Work Phone: 10-20-2016 13:08-0400 BP Diastolic 82 mm[Hg] Matias Best MD [facility] Work Phone: 10-20-2016 13:08-0400 BP Systolic 118 mm[Hg] Matias Best MD [facility] Work Phone: 10-20-2016 13:08-0400 Height 165.1 cm Matias Best MD [facility] Work Phone: 10-20-2016 13:08-0400 Pulse (Heart Rate) 68 /min [facility] Work Phone: 10-20-2016 13:08-0400 Respiratory Rate 16 /min Matias Best MD [facility] Work Phone: 10-20-2016 13:08-0400 Weight 65.77 kg Matias Best MD [facility] Work Phone: 10-15-2015 14:05-0400 BSA (Body Surface Area) 1.7 m2 Matias Best MD [facility] Work Phone: 11-06-2014 16:09-0400 Heart rate 56 /min Jamila Lozano RN [facility] Work Phone: 01-26-2014 11:01-0400 Heart rate 398 ms Jamila Lozano RN [facility] Work Phone: 01-26-2014 10:34-0400 Height 165.1 cm Matias Best MD [facility] Work Phone: Encounters Encounter Date Encounter Type Care Provider Facility Start: 10-04-2024 End: 10-04-2024 ambulatory Milagros Hunter NP-C Work Phone: [facility] Work Phone: Start: 10-04-2024 End: 10-04-2024 Patient encounter procedure Milagros Hunter LIGHT OIL OPERATOR-C -Outpatient Breast Imaging Work Phone: Start: 10-04-2024 End: 10-04-2024 ambulatory Milagros Hunter LIGHT OIL OPERATOR Facility:[facility] Start: 09-15-2024 End: 09-15-2024 ambulatory Milagros Hutner LIGHT OIL OPERATOR-C Work Phone: [facility] Work Phone: Start: 09-15-2024 End: 09-15-[address] Mylene Hoskins MD -Radiology, [facility] Work Phone: Start: 09-15-2024 End: 09-15-2024 ambulatory Mylene Hoskins Facility:[facility] Start: 07-05-2024 End: 07-05-2024 ambulatory Milagros Hunter LIGHT OIL OPERATOR-C Work Phone: [facility] Work Phone: Start: 07-05-2024 End: 07-05-[address] Mylene Hoskins MD -Radiology, [facility] Work Phone: Start: 07-05-2024 End: 07-05-2024 ambulatory Mylene Hoskins Facility:[facility] Start: 06-28-2024 End: 06-28-2024 Patient encounter procedure Leilani NELSON -[facility] Work Phone: Start: 06-28-2024 End: 06-28-2024 ambulatory Leilani Gonzales Facility:[facility] Start: 05-23-2024 End: 05-23-2024 ambulatory [facility] Start: 04-19-2024 End: 04-19-2024 Patient encounter procedure Leilani NELSON -Nuclear Medicine, [facility] Work Phone: Start: 04-19-2024 End: 04-19-2024 ambulatory Leilani Gonzales Facility:[facility] Start: 03-29-2024 End: 03-29-2024 Patient encounter procedure Leilani NELSON -[facility] Work Phone: Start: 03-29-2024 End: 03-29-2024 ambulatory Milagros Hunter LIGHT OIL OPERATOR Facility:[facility] Start: 03-21-2024 End: 03-21-2024 ambulatory [facility] Start: 03-15-2024 End: 03-15-2024 ambulatory Milagros Hunter LIGHT OIL OPERATOR Facility:[facility] Start: 03-08-2024 End: 03-08-2024 ambulatory Milagros Hunter LIGHT OIL OPERATOR Facility:[facility] Start: 02-17-2024 End: 02-17-2024 ambulatory MILAGROS HUNTER NITRATE OPERATOR-URGENT CARE PHYSICIAN Facility:[facility] Start: 02-17-2024 End: 02-17-2024 Patient encounter procedure MILAGROS HUNTER NITRATE OPERATOR-URGENT CARE PHYSICIAN [facility] Start: 02-02-2024 End: 02-02-2024 ambulatory Milagros Hunter LIGHT OIL OPERATOR Facility:[facility] Start: 01-21-2024 ambulatory Mylene Brooks Facility:[facility] Start: 01-04-2024 End: 01-04-2024 ambulatory [facility] Start: 11-03-2023 End: 11-03-2023 ambulatory Milagros Hunter LIGHT OIL OPERATOR Facility:[facility] Start: 10-27-2023 ambulatory Milagros Hunter LIGHT OIL OPERATOR Fa cility:[facility] Start: 10-20-2023 Telephone encounter Dc weems MD Work Phone: Plastic Surgery Start: 10-13-2023 ambulatory Parviz Mandujano Facility:[facility] Start: 10-13-2023 End: 10-13-2023 Emergency department patient visit Roosevelt Zimmerman Facility:[facility] Start: 10-13-2023 End: 10-13-2023 ambulatory MILAGROS HUNTER Facility:[facility] Start: 09-08-2023 End: 09-08-[address] [facility] Work Phone: Start: 09-08-2023 End: 09-08-[address] [facility] Work Phone: Start: 08-24-2023 End: 08-25-2023 ambulatory [facility] Start: 08-20-2023 End: 08-20-2023 ambulatory KIYA SALAZAR Facility:[facility] Start: 08-20-2023 End: 08-20-2023 Patient encounter procedure Laure Varela OD Work Phone: Optometry Comment on above: Keratitis sicca, bo ateral (HCC) (Primary Dx); Rheumatoid arthritis involving multiple sites, unspecified whether rheumatoid factor present (HCC); Pseudophakia of both eyes; Vitreous floaters of both eyes; Regular astigmatism, bilateral Start: 08-17-2023 End: 08-18-2023 ambulatory SOCORRO Carey INGE [facility] Start: 08-14-2023 End: 08-15-2023 ambulatory SOCORRO M INGE [facility] Start: 08-10-2023 End: 08-11-2023 ambulatory SOCORRO ALCAZAR [facility] Start: 08-05-2023 End: 08-06-2023 ambulatory SOCORRO Carey INGE [facility] Start: 08-03-2023 End: 08-04-2023 ambulatory SOCORRO ALCAZAR [facility] Start: 07-29-2023 End: 07-30-2023 ambulatory SOCORRO Carey INGE [facility] Start: 07-10-2023 End: 07-11-2023 ambulatory [facility] Start: 07-08-2023 ambulatory KIYA SALAZAR Facili ty:[facility] Start: 07-08-2023 End: 07-08-2023 ambulatory KIYA SALAZAR Facility:[facility] Start: 07-06-2023 End: 07-07-2023 ambulatory [facility] Start: 06-30-2023 End: 06-30-2023 Emergency 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 Work Phone: Start: 06-29-2023 End: 06-30-2023 ambulatory [facility] Start: 06-26-2023 End: 06-27-2023 ambulatory [facility] Start: 06-19-2023 End: 06-20-2023 ambulatory [facility] Start: 06-17-2023 End: 06-18-2023 ambulatory [facility] Start: 06-08-2023 End: 06-09-2023 ambulatory [facility] Start: 06-05-2023 End: 06-06-2023 ambulatory [facility] Start: 06-01-2023 End: 06-02-2023 ambulatory [facility] Start: 05-22-2023 End: 05-23-2023 ambulatory [facility] Start: 05-15-2023 End: 05-16-2023 ambulatory [facility] Start: 05-13-2023 End: 05-14-2023 ambulatory [facility] Start: 05-06-2023 End: 05-07-2023 ambulatory [facility] Start: 04-29-2023 End: 04-30-2023 ambulatory [facility] Start: 04-27-2023 End: 04-28-2023 ambulatory [facility] Start: 04-20-2023 End: 04-21-2023 ambulatory [facility] Start: 04-14-2023 End: 04-14-2023 ambulatory [facility] Facility:[facility] Start: 04-07-2023 End: 04-07-2023 ambulatory [facility] Facility:[facility] Start: 03-31-2023 End: 04-01-2023 ambulatory [facility] Start: 03-17-2023 Patient encounter status LIGHT OIL OPERATOR-Micheal 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 Start: 03-17-2023 End: 03-17-2023 Encounter for other preprocedural examination LIGHT OIL OPERATOR-Micheal 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 Start: 03-17-2023 End: 03-17-2023 Patient encounter procedure LIGHT OIL OPERATOR-Micheal Hunter LIGHT OIL OPERATOR Work Phone: [facility] Work Phone: Start: 03-13-2023 End: 03-13-2023 ambulatory NORA Burton [facility] Start: 03-13-2023 End: 03-13-2023 Encounter for other preprocedural examination NORA Burton [facility] Start: 12-30-2022 End: 12-30-2022 ambulatory [facility] Facility:[facility] Start: 11-28-2022 Evaluation and management of inpatient LIGHT OIL OPERATOR-C Milagros 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 3 Work Phone: Start: 11-28-2022 observation encounter LIGHT OIL OPERATOR-C Lexie aaliyah 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 Work Phone: Start: 11-27-2022 End: 11-27-2022 Emergency 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 Work Phone: Start: 10-21-2022 End: 10-21-2022 ambulatory [facility] Facility:[facility] Start: 10-09-2022 Non-patient / Non-visit LIGHT OIL OPERATOR-C Milagros 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 Start: 10-09-2022 End: 10-09-2022 Admission to same day surgery center LIGHT OIL OPERATOR-C Milagros 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End[facility] Start: 10-09-2022 End: 10-09-2022 ambulatory LIGHT OIL OPERATOR-C Milagros 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 Work Phone: Start: 10-07-2022 Non-patient / Non-visit LIGHT OIL OPERATOR-C Milagros Hunter LIGHT OIL OPERATOR Work Phone: [facility] Start: 10-02-2022 End: 10-17-2022 Evaluation and management of inpatient LIGHT OIL OPERATOR-C Milagros 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Trans[facility] Unit Start: 10-02-2022 Non-patient / Non-visit LIGHT OIL OPERATOR-C Milagros Hunter LIGHT OIL OPERATOR Work Phone: [facility] Start: 10-01-2022 Non-patient / Non-visit LIGHT OIL OPERATOR-C Milargos Hunter LIGHT OIL OPERATOR Work Phone: [facility] Start: 09-30-2022 Non-patient / Non-visit LIGHT OIL OPERATOR-C Milagros Hunter LIGHT OIL OPERATOR Work Phone: [facility] Start: 09-29-2022 Non-patient / Non-visit LIGHT OIL OPERATOR-C Milagros Hunter LIGHT OIL OPERATOR Work Phone: [facility] Start: 09-29-2022 End: 10-02-2022 Evaluation and management of inpatient LIGHT OIL OPERATOR-C Milagros 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 3 Start: 09-16-2022 End: 09-16-2022 ambulatory LIGHT OIL OPERATOR-C Milagros 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 Work Phone: Start: 09-16-2022 End: 09-16-2022 Patient encounter procedure LIGHT OIL OPERATOR-C Milagros 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 Start: 06-24-2022 End: 06-24-2022 ambulatory LIGHT OIL OPERATOR-C Milagros 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 Work Phone: Start: 06-24-2022 End: 06-24-2022 Patient encounter procedure LIGHT OIL OPERATOR-C Milagros 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Outpatient Breast Imaging Start: 05-27-2022 End: 05-27-2022 ambulatory LIGHT OIL OPERATOR-C Milagros 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 Work Phone: Start: 05-27-2022 End: 05-27-2022 Patient encounter procedure LIGHT OIL OPERATOR-C Milagros Robleser LIGHT OIL OPERATOR Work Phone: [facility]-Outpatient Bone Densitometry Start: 05-27-2022 End: 05-27-2022 Patient encounter procedure LIGHT OIL OPERATOR-C Milagros Hunter LIGHT OIL OPERATOR Work Phone: [facility] Start: 05-19-2022 End: 05-20-[address] ZULEMA MOLINA MD. Facility:[facility] Start: 05-19-2022 End: 05-19-[address] ZULEMA MOLINA MD [facility] Start: 05-11-2022 End: 05-11-2022 Emergency department patient visit [facility] Start: 05-04-2022 End: 05-04-2022 Emergency department patient visit [facility] Start: 04-27-2022 End: 04-27-2022 Emergency department patient visit LORENZO Micheal [facility] Start: 01-28-2022 End: 01-28-2022 ambulatory LIGHT OIL OPERATOR-C Milagros 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 Work Phone: Start: 01-28-2022 End: 01-28-2022 Patient encounter procedure LIGHT OIL OPERATOR-C Milagros 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 Start: 12-18-2021 End: 12-18-2021 Patient encounter procedure LIGHT OIL OPERATOR-C Milagros 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 Start: 11-13-2021 End: 11-13-2021 Patient encounter procedure LIGHT OIL OPERATOR-C Milagros 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 Start: 10-18-2021 End: 10-18-2021 Emergency department patient visit LIGHT OIL OPERATOR-Micheal 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 Start: 10-11-2021 End: 10-11-2021 Patient encounter procedure LIGHT OIL OPERATOR-C Milagros 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 Start: 10-01-2021 Non-patient / Non-visit LIGHT OIL OPERATOR-C Geraldine Leigh LIGHT OIL OPERATOR Work Phone: [facility] Start: 10-01-2021 End: 10-01-2021 Admission to same day surgery center LIGHT OIL OPERATOR-C Geraldine Leigh LIGHT OIL OPERATOR [facility] Start: 09-30-2021 Non-patient / Non-visit LIGHT OIL OPERATOR-C Milagros Hunter LIGHT OIL OPERATOR Work Phone: [facility] Start: 09-16-2021 End: 09-16-2021 Patient encounter procedure LIGHT OIL OPERATOR-C Geraldine Leigh LIGHT OIL OPERATOR Work Phone: [facility] Start: 09-16-2021 End: 09-16-2021 Patient encounter procedure LIGHT OIL OPERATOR-C Geraldine Leigh LIGHT OIL OPERATOR Work Phone: [facility] Start: 09-09-2021 End: 09-09-2021 Patient encounter procedure LIGHT OIL OPERATOR-C Geraldine Leigh LIGHT OIL OPERATOR Work Phone: [facility] Start: 07-17-2021 End: 07-17-2021 Patient encounter procedure LIGHT OIL OPERATOR-C Geraldine Leigh LIGHT OIL OPERATOR Work Phone: [facility] Start: 07-02-2021 Non-patient / Non-visit LIGHT OIL OPERATOR-C Geraldine Leigh LIGHT OIL OPERATOR Work Phone: [facility] Start: 07-02-2021 End: 07-02-2021 Admission to same day surgery center LIGHT OIL OPERATOR-C Geraldine Leigh LIGHT OIL OPERATOR Work Phone[facility] Start: 07-01-2021 Non-patient / Non-visit LIGHT OIL OPERATOR-C Geraldine Leigh LIGHT OIL OPERATOR Work Phone: [facility] Start: 06-19-2021 End: 06-19-2021 Patient encounter procedure LIGHT OIL OPERATOR-C Geraldine Leigh NP Work Phone: [facility] Procedures Date Procedure Procedure Detail Performing Clinician Start: 10-04-2024 Screening mammography Milagros CHRISTIANSENC Work Phone: Start: 09-15-2024 X-ray of cervical spine Milagros CHRISTIANSENC Work Phone: Start: 07-05-2024 X-ray of [...] Start: 11-27-2022 CT of head without contrast LIGHT OIL OPERATOR-C Nicho mena Elsa LIGHT OIL OPERATOR Work Phone: Start: 10-15-2022 Plain x-ray of pelvis and lower extremity LIGHT OIL OPERATOR-C Milagros Elsa LIGHT OIL OPERATOR Work Phone: Start: 10-09-2022 Esophagogastroduodenoscopy LIGHT OIL OPERATOR-C Nae chris Elsa LIGHT OIL OPERATOR Work Phone: Start: 10-06-2022 Viral antigen assay LIGHT OIL OPERATOR-C Milagros Hunter LIGHT OIL OPERATOR Work Phone: Start: 10-03-2022 [employer]wallow LIGHT OIL OPERATOR-C Milagros Elsa LIGHT OIL OPERATOR Work Phone: Start: 10-02-2022 Viral antigen assay LIGHT OIL OPERATOR-C Milagros Elsa LIGHT OIL OPERATOR Work Phone: Start: 09-30-2022 Plain X-ray of hip LIGHT OIL OPERATOR-C Milagros Hunter LIGHT OIL OPERATOR Work Phone: Start: 09-30-2022 Primary uncemented hemiarthroplasty of hip LIGHT OIL OPERATOR-C Milagros Hunter LIGHT OIL OPERATOR Work Phone: Start: 09-29-2022 MRI of lower extremity LIGHT OIL OPERATOR-C Milagros Hunter LIGHT OIL OPERATOR Work Phone: Start: 09-29-2022 CT cervical spine without contrast LIGHT OIL OPERATOR-C Milagros Hunter LIGHT OIL OPERATOR Work Phone: Start: 09-29-2022 CT of head without contrast LIGHT OIL OPERATOR-C Nicho Hunter LIGHT OIL OPERATOR Work Phone: Start: 09-29-2022 Pelvis X-ray LIGHT OIL OPERATOR-C Milagros Hunter LIGHT OIL OPERATOR Work Phone: Start: 09-29-2022 Plain X-ray of femur LIGHT OIL OPERATOR-C Milagros Hunter LIGHT OIL OPERATOR Work Phone: Start: 06-24-2022 Screening mammography LIGHT OIL OPERATOR-C Milagros Hunter LIGHT OIL OPERATOR Work Phone: Start: 05-27-2022 Dual energy X-ray absorptiometry LIGHT OIL OPERATOR-C Regino Hunter LIGHT OIL OPERATOR Work Phone: Start: 05-11-2022 Computed tomography of abdomen and pelvis with intravenous contrast Start: 05-04-2022 Computed tomography of abdomen and pelvis with contrast Start: 10-18-2021 Plain x-ray of hand LIGHT OIL OPERATOR-C Milagros Hunter LIGHT OIL OPERATOR Work Phone: Start: 10-18-2021 Plain X-ray of shoulder LIGHT OIL OPERATOR-C Milagros Hunter LIGHT OIL OPERATOR Work Phone: Start: 10-18-2021 X-ray of cervical spine LIGHT OIL OPERATOR-C Milagros Hunter LIGHT OIL OPERATOR Work Phone: Start: 10-01-2021 Repair of incisional hernia using surgical mesh LIGHT OIL OPERATOR-C Geraldine Leigh LIGHT OIL OPERATOR Work Phone: Start: 09-16-2021 CT of abdomen and pelvis without contrast LIGHT OIL OPERATOR-C Geraldine Leigh LIGHT OIL OPERATOR Work Phone: Start: 11-19-2016 End: 11-26-2016 CBC [...] ZULEMA MOLINA MD Urine culture Urine culture LIGHT OIL OPERATOR-C Milagros Hunter LIGHT OIL OPERATOR Work Phone: Viral antigen assay Viral antigen assay LIGHT OIL OPERATOR-C Lexie Hunter LIGHT OIL OPERATOR Work Phone: Plan of Treatment Date Care Activity Detail Author Start: 04-30-2030 Urine microalbumin profile DTa P,Tdap,Td Vaccine (2 - Td or Tdap) [facility] Start: 10-12-2026 Diabetes Screening Diabetes Screenin g [facility] Start: 07-08-2026 Diabetes Screening Diabetes Screenin g [facility] Start: 08-24-2024 End: 08-24-2024 Patient encounter procedure 08/24/2024 11:00 AM EDT Office Visit [facility] [address] [place] [address] Laure Varela II, OD [address] [place] [address] Eye exam Optometry Comment on above: Eye exam Start: 01-10-2024 Influenza vaccination Influenz a Vaccine (Season Ended) [facility] Start: 10-21-2023 End: 10-21-2023 Patient encounter procedure 10/21/2023 11:30 AM EDT Office Visit Plastic Surgery [address] [facility] [address] [place] [address] Dc Lemos MD [address] [facility] [address] [place] [address] Facial Fracture On 10/13/2023 went to [facility] for this and was told to follow up Plastic Surgery Comment on above: Facial Fracture On went to [facility] for this and was told to follow up Start: 06-30-[address] [facility] Start: 06-30-2023 Plain x-ray of pelvi s and lower extremity HIP, UNI W/ Pelvis 2-[address] [facility] Start: 06-30-2023 XR Pelvis and Hip Views [facility] Start: 05-11-2023 Advance Directive Discussion Advance Directive Discussion [facility] Start: 05-11-2023 Behavioral Health Screening Behavioral Health Screening [facility] Start: 01-09-2023 Covid-19 Vaccine () Covid-19 Vaccine () [facility] Start: 11-28-[address] [facility] Start: 11-28-2022 Assessment of risk o f venous thromboembolism [facility] Start: 11-28-2022 Insertion of cathete r into peripheral vein [facility] Start: 11-28-[address] [facility] Start: 11-28-2022 Providing care accor ding to standard [facility] Start: 11-28-2022 Provision of activit y privileges [facility] Start: 11-28-2022 Referral to occupati onal therapist [facility] Start: 11-28-2022 Referral to service [facility] Start: 11-28-[address] [facility] Start: 11-28-2022 Verification routine [facility] Start: 11-28-2022 Admission procedure [facility] Start: 11-27-2022 Bacteria identified in Blood by Culture Blood Culture [facility] Start: 11-27-2022 Bacteria identified in Urine by Culture Urine Culture [facility] Start: 11-27-[address] [facility] Start: 11-27-2022 Plain chest X-ray Chest PA and Later al [facility] Start: 11-27-2022 XR Chest PA and Lateral [facility] Start: 11-27-2022 End: 11-27-[address] [facility] Start: 11-27-2022 End: 11-27-2022 [facility] Start: 11-07-[address] [facility] Start: 10-31-[address] [facility] Start: 10-24-[address] [facility] Start: 10-17-[address] [facility] Start: 10-17-2022 Patient discharge [facility] Start: 10-16-[address] [facility] Start: 10-16-[address] [facility] Start: 10-16-[address] [facility] Start: 10-14-2022 Referral to service [facility] Start: 10-13-[address] [facility] Start: 10-10-[address] [facility] Start: 10-09-2022 Egd insert guide wir e dilator passage esophagus EGD GUIDE WIRE INSERTION [facility] Start: 10-09-2022 Patient discharge [facility] Start: 10-07-2022 Referral to ear, nos e and throat service [facility] Start: 10-07-2022 Referral to gastroenterology service [facility] Start: 10-03-2022 Application of device [facility] Start: 10-03-[address] [facility] Start: 10-03-2022 Developing a treatme nt plan [facility] Start: 10-03-2022 Verification routine [facility] Start: 10-03-2022 Introduction of urin samantha catheter [facility] Start: 10-03-[address] [facility] Start: 10-03-2022 Following clinical p athway protocol [facility] Start: 10-02-2022 Admission procedure [facility] Start: 10-02-2022 Me[address]uring intake and output [facility] Start: 10-02-2022 Patient referral to dietitian [facility] Start: 10-02-2022 Referral to occupati onal therapist [facility] Start: 10-02-2022 Referral to service [facility] Start: 10-02-[address] [facility] Start: 10-02-2022 End: 10-03-2022 [facility] Start: 10-02-2022 Patient discharge [facility] Start: 10-02-2022 Introduction of urin samantha catheter [facility] Start: 10-01-[address] [facility] Start: 10-01-2022 Removal of urinary catheter [facility] Start: 10-01-2022 Removal of urinary catheter [facility] Start: 09-30-2022 End: 09-30-2022 [facility] Start: 09-30-[address] [facility] Start: 09-30-2022 Application of device [facility] Start: 09-30-[address] [facility] Start: 09-30-2022 Following clinical p athway protocol [facility] Start: 09-30-[address] [facility] Start: 09-30-2022 Patient education [facility] Start: 09-30-2022 Provision of activit y privileges [facility] Start: 09-30-2022 Recommendation to co judie with treatment [facility] Start: 09-30-2022 Referral to occupati onal therapist [facility] Start: 09-30-2022 Referral to service [facility] Start: 09-30-[address] [facility] Start: 09-30-2022 Wound care [facility] Start: 09-29-2022 End: 09-30-2022 [facility] Start: 09-29-[address] [facility] Start: 09-29-2022 Assessment of risk o f venous thromboembolism [facility] Start: 09-29-[address] [facility] Start: 09-29-[address] [facility] Start: 09-29-2022 Insertion of cathete r into peripheral vein [facility] Start: 09-29-2022 Measuring intake and output [facility] Start: 09-29-2022 Providing care accor ding to standard [facility] Start: 09-29-2022 Referral to occupati onal therapist [facility] Start: 05-22-2023 Referral to service [facility] Start: 09-29-2022 Care of central veno us catheter [facility] Start: 09-29-2022 Following clinical p athway protocol [facility] Start: 09-29-2022 Admission procedure [facility] Start: 09-29-2022 Patient referral to dietitian [facility] Start: 09-29-[address] [facility] Start: 09-16-[address] [facility] Start: 05-04-[address] [facility] Work Phone: Start: 05-04-[address] [facility] Start: 01-28-[address] [facility] Work Phone: Start: 10-01-2021 Anes hrna rpr upr ab d lmbr&ventral hernia&dehisc ANESTH REPAIR OF HERNIA [facility] Work Phone: Start: 10-01-2021 Repair first abdomin al wall hernia RPR VENTRAL UTE INIT REDUC [facility] Work Phone: Start: 09-09-2021 Patient referral [facility] Work Phone: Start: 07-02-2021 Anesthesia intraperi toneal lower abd w/laps nos ANESTH SURG LOWER ABDOMEN [facility] Work Phone: Start: 07-02-2021 Laparoscopy w/rmvl a dnexal structures LAPAROSCOPY REMOVE ADNEXA [facility] Work Phone: Start: 10-19-2017 End: 10-19-2017 Appointment [facility] Work Phone: Start: 11-19-2016 End: 11-26-2016 CBC W Auto Differential panel - Blood *CBC without Diff [facility] Work Phone: Start: 11-19-2016 End: 11-26-2016 Thyroid stimulating hormone (TSH) *TSH [facility] Work Phone: Start: 11-18-2016 End: 11-14-2016 Stress Echocardiogram - Dobutamine Stress Echocardiogram - Dobutamine [facility] Work Phone: Start: 10-20-2016 End: 10-20-2016 Follow Up Appt 1 year Follow Up Appt 1 year [facility] Work Phone: Start: 10-20-2016 End: 10-20-2016 Follow Up Appt Other Follow Up Appt Other [facility] Work Phone: Start: 10-20-2016 End: 10-20-2016 PFM PFM [facility] Work Phone: Start: 10-20-2016 End: 10-20-2016 Stress Echocardiogram - Dobutamine Stress Echocardiogram - Dobutamine [facility] Work Phone: Start: 10-15-2015 End: 10-15-2015 Follow Up Appt 1 year Follow Up Appt 1 year [facility] Work Phone: Start: 10-15-2015 End: 10-15-2015 PFM PFM [facility] Work Phone: Start: 05-01-2015 End: 05-01-2015 Follow Up Appt 6 months Follow Up Appt 6 months [facility] Work Phone: Start: 05-01-2015 End: 05-01-2015 PFM PFM [facility] Work Phone: Start: 11-06-2014 End: 11-06-2014 Electrocardiogram, complete EKG (In office) [facility] Work Phone: Start: 11-06-2014 End: 11-06-2014 Follow Up Appt 6 months Follow Up Appt 6 months [facility] Work Phone: Start: 11-06-2014 End: 11-06-2014 MMM MMM [facility] Work Phone: Start: 03-15-2014 End: 03-15-2014 Follow Up Appt 6 months Follow Up Appt 6 months [facility] Work Phone: Start: 03-15-2014 End: 03-15-2014 PFM PFM [facility] Work Phone: Start: 01-26-2014 End: 01-26-2014 Echocardiography Echocardiogram (complete) [facility] Work Phone: Start: 01-26-2014 End: 03-02-2014 [facility] Start: 01-26-2014 End: 01-26-2014 Follow Up Appt 6 weeks Follow Up Appt 6 weeks [employer] [facility] Work Phone: Start: 01-26-2014 End: 01-26-2014 MMM MMM [employer] Work Phone: Start: 01-26-2014 End: 01-26-2014 Stress Echocardiogram - Dobutamine Stress Echocardiogram - Dobutamine [employer] [facility] Work Phone: Start: 09-08-2003 Screening for osteoporosis Bone Dens ity Screening [facility] Start: 1998 RSV Vaccine (1 - 1-d ose 60+ series) RSV Vaccine (1 - 1-dose 60+ series) [facility] Start: 1957 Shingrix Vaccine (1 of 2) Hahn grix Vaccine (1 of 2) [facility] Start: 1949 Screening for malign ant neoplasm of cervix Cervical Cancer Screening [facility] Anion gap measurement [facility] Anion gap measurement [facility] Anion gap measurement [facility] Anion gap measurement [facility] Anion gap measurement [facility] Anion gap measurement [facility] Bacteria identified in Urine by Culture Urine Culture [facility] Work Phone: BUN/Creatinine ratio [facility] BUN/Creatinine ratio [facility] BUN/Creatinine ratio [facility] BUN/Creatinine ratio [facility] BUN/Creatinine ratio [facility] BUN/Creatinine ratio [facility] Calcium [Mass/volume ] in Serum or Plasma [facility] Calcium [Mass/volume ] in Serum or Plasma [facility] Calcium [Mass/volume ] in Serum or Plasma [facility] Calcium [Mass/volume ] in Serum or Plasma [facility] Calcium [Mass/volume ] in Serum or Plasma [facility] Calcium [Mass/volume ] in Serum or Plasma [facility] Carbon dioxide, tota l [Moles/volume] in Serum or Plasma [facility] Carbon dioxide, tota l [Moles/volume] in Serum or Plasma [facility] Carbon dioxide, tota l [Moles/volume] in Serum or Plasma [facility] Carbon dioxide, tota l [Moles/volume] in Serum or Plasma [facility] Carbon dioxide, tota l [Moles/volume] in Serum or Plasma [facility] Carbon dioxide, tota l [Moles/volume] in Serum or Plasma [facility] Chloride [Moles/volu me] in Serum or Plasma [facility] Chloride [Moles/volu me] in Serum or Plasma [facility] Chloride [Moles/volu me] in Serum or Plasma [facility] Chloride [Moles/volu me] in Serum or Plasma [facility] Chloride [Moles/volu me] in Serum or Plasma [facility] Chloride [Moles/volu me] in Serum or Plasma [facility] Creatinine [Moles/vo lume] in Serum or Plasma [facility] Creatinine [Moles/vo lume] in Serum or Plasma [facility] Creatinine [Moles/vo lume] in Serum or Plasma [facility] Creatinine [Moles/vo lume] in Serum or Plasma [facility] Creatinine [Moles/vo lume] in Serum or Plasma [facility] Creatinine [Moles/vo lume] in Serum or Plasma [facility] Glucose [Mass/volume ] in Serum or Plasma [facility] Glucose [Mass/volume ] in Serum or Plasma [facility] Glucose [Mass/volume ] in Serum or Plasma [facility] Glucose [Mass/volume ] in Serum or Plasma [facility] Glucose [Mass/volume ] in Serum or Plasma [facility] Glucose [Mass/volume ] in Serum or Plasma [facility] Hematocrit [Volume Fraction] of Blood [facility] Hematocrit [Volume Fraction] of Blood [facility] Hematocrit [Volume Fraction] of Blood [facility] Hematocrit [Volume Fraction] of Blood [facility] Hematocrit [Volume Fraction] of Blood [facility] Hematocrit [Volume Fraction] of Blood [facility] Hemoglobin [Mass/vol ume] in Blood [facility] Hemoglobin [Mass/vol ume] in Blood [facility] Hemoglobin [Mass/vol ume] in Blood [facility] Hemoglobin [Mass/vol ume] in Blood [facility] Hemoglobin [Mass/vol ume] in Blood [facility] Hemoglobin [Mass/vol ume] in Blood [facility] Leukocytes [#/volume ] in Blood [facility] Leukocytes [#/volume ] in Blood [facility] Leukocytes [#/volume ] in Blood [facility] Leukocytes [#/volume ] in Blood [facility] Leukocytes [#/volume ] in Blood [facility] Leukocytes [#/volume ] in Blood [facility] Mean corpuscular hemoglobin concentration determination [facility] Mean corpuscular hemoglobin concentration determination [facility] Mean corpuscular hemoglobin concentration determination [facility] Mean corpuscular hemoglobin concentration determination [facility] Mean corpuscular hemoglobin concentration determination [facility] Mean corpuscular hemoglobin concentration determination [facility] Mean corpuscular hemoglobin determination [facility] Mean corpuscular hemoglobin determination [facility] Mean corpuscular hemoglobin determination [facility] Mean corpuscular hemoglobin determination [facility] Mean corpuscular hemoglobin determination [facility] Mean corpuscular hemoglobin determination [facility] Measurement of renal function [facility] Measurement of renal function [facility] Measurement of renal function [facility] Measurement of renal function [facility] Measurement of renal function [facility] Measurement of renal function [facility] Neutrophil count [facility] Neutrophil count [facility] Neutrophil count [facility] Neutrophil count [facility] Neutrophil count [facility] Neutrophil count [facility] Neutrophil percent differential count [facility] Neutrophil percent differential count [facility] Neutrophil percent differential count [facility] Neutrophil percent differential count [facility] Neutrophil percent differential count [facility] Neutrophil percent differential count [facility] Patient Education [facility] Work Phone: Patient referral [facility] Work Phone: Platelets [#/volume] in Blood [facility] Platelets [#/volume] in Blood [facility] Platelets [#/volume] in Blood [facility] Platelets [#/volume] in Blood [facility] Platelets [#/volume] in Blood [facility] Platelets [#/volume] in Blood [facility] Potassium [Moles/vol ume] in Serum or Plasma [facility] Potassium [Moles/vol ume] in Serum or Plasma [facility] Potassium [Moles/vol ume] in Serum or Plasma [facility] Potassium [Moles/vol ume] in Serum or Plasma [facility] Potassium [Moles/vol ume] in Serum or Plasma [facility] Potassium [Moles/vol ume] in Serum or Plasma [facility] Procedure [facility] Work Phone: Red blood cell count [facility] Red blood cell count [facility] Red blood cell count [facility] Red blood cell count [facility] Red blood cell count [facility] Red blood cell count [facility] Red cell distributio n width determination [facility] Red cell distributio n width determination [facility] Red cell distributio n width determination [facility] Red cell distributio n width determination [facility] Red cell distributio n width determination [facility] Red cell distributio n width determination [facility] Sodium [Moles/volume ] in Serum or Plasma [facility] Sodium [Moles/volume ] in Serum or Plasma [facility] Sodium [Moles/volume ] in Serum or Plasma [facility] Sodium [Moles/volume ] in Serum or Plasma [facility] Sodium [Moles/volume ] in Serum or Plasma [facility] Sodium [Moles/volume ] in Serum or Plasma [facility] Urea nitrogen [Mass/volume] in Serum or Plasma [facility] Urea nitrogen [Mass/volume] in Serum or Plasma [facility] Urea nitrogen [Mass/volume] in Serum or Plasma [facility] Urea nitrogen [Mass/volume] in Serum or Plasma [facility] Urea nitrogen [Mass/volume] in Serum or Plasma [facility] Urea nitrogen [Mass/volume] in Serum or Plasma [facility] Immunizations Immunization Date Immunization Notes Care Provider Kamala [facility] 10-13-2023 tetanus toxoid, redu natalee diphtheria toxoid, and acellular pertussis vaccine, adsorbed MILAGROS ELSA NITRATE OPERATOR-URGENT CARE PHYSICIAN [facility] 10-16-2022 pneumococcal 20-edel nt conjugate vaccine MILAGROSAALIYAH ROBLESER NITRATE OPERATOR-URGENT CARE PHYSICIAN [facility] 10-16-2022 Pneumococcal Vaccine PCV20 (Prevnar 20) LIGHT OIL OPERATOR-C Milagros 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 03-25-2022 influenza virus vacc ine, unspecified formulation DR ZULEMA MOLINA MD [facility] 03-25-2022 Influenza, high dose seasonal Milagros Hunter LIGHT OIL OPERATOR-C Work Phone: [facility] 03-25-2022 influenza, high dose seasonal, preservative-free LIGHT OIL OPERATOR-C Milagros 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 06-11-2021 SARS-CoV-2 (COVID-19 ) mRNA-[address] ZULEMA MOLINA MD [facility] 04-16-2021 influenza virus vacc ine, unspecified formulation DR ZULEMA MOLINA MD [facility] 04-16-2021 influenza, injectabl e, quadrivalent, preservative free LIGHT OIL OPERATOR-C Milagros 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 04-16-2021 influenza, seasonal, injectable LIGHT OIL OPERATOR-C Milagros 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 07-05-2020 SARS-CoV-2 (COVID-19 ) mRNA-[address] ZULEMA MOLINA MD [facility] 06-07-2020 SARS-CoV-2 (COVID-19 ) mRNA-[address] ZULEMA MOLINA MD [facility] 04-30-2020 tetanus toxoid, redu natalee diphtheria toxoid, and acellular pertussis vaccine, adsorbed DR ZULEMA MOLINA MD [facility] 03-27-2020 influenza virus vacc ine, unspecified formulation DR ZULEMA MOLINA MD [facility] 03-27-2020 Influenza, high dose seasonal Milagros Elsa LIGHT OIL OPERATOR-C Work Phone: [facility] 03-27-2020 influenza, high dose seasonal, preservative-free LIGHT OIL OPERATOR-C Milagros Elsa LIGHT OIL OPERATOR Work Phone: [facility] 03-16-2019 influenza virus vacc ine, unspecified formulation DR ZULEMA MOLINA MD [facility] 03-16-2019 influenza, injectabl e, quadrivalent, preservative free LIGHT OIL OPERATOR-C Milagros Elsa LIGHT OIL OPERATOR Work Phone: [facility] 03-16-2019 influenza, seasonal, injectable LIGHT OIL OPERATOR-C Milagros Elsa LIGHT OIL OPERATOR Work Phone: [facility] 03-12-2018 influenza virus vacc ine, unspecified formulation DR ZULEMA MOLINA MD [facility] 03-12-2018 influenza, injectabl e, quadrivalent, preservative free LIGHT OIL OPERATOR-C Milagros Elsa LIGHT OIL OPERATOR Work Phone: [facility] 03-12-2018 influenza, seasonal, injectable LIGHT OIL OPERATOR-C Milagros Elsa LIGHT OIL OPERATOR Work Phone: [facility] 05-01-2017 influenza virus vacc ine, unspecified formulation DR ZULEMA MOLINA MD [facility] 05-01-2017 influenza, injectabl e, quadrivalent, preservative free LIGHT OIL OPERATOR-C Milagros Elsa LIGHT OIL OPERATOR Work Phone: [facility] 05-01-2017 influenza, seasonal, injectable LIGHT OIL OPERATOR-C Milagros Elsa LIGHT OIL OPERATOR Work Phone: [facility] 11-07-2016 pneumococcal polysaccharide vaccine, [address] ZULEMA MOLINA MD [facility] 07-02-2016 influenza virus vacc ine, unspecified formulation DR ZULEMA MOLINA MD [facility] 07-02-2016 influenza, injectabl e, quadrivalent, preservative free LIGHT OIL OPERATOR-C Milagros Elsa LIGHT OIL OPERATOR Work Phone: [facility] 07-02-2016 influenza, seasonal, injectable LIGHT OIL OPERATOR-C Milagros Elsa LIGHT OIL OPERATOR Work Phone: [facility] 03-28-2015 influenza virus vacc ine, unspecified formulation DR ZULEMA MOLINA MD [facility] 03-28-2015 influenza, injectabl e, quadrivalent, preservative free LIGHT OIL OPERATOR-C Milagros Elsa LIGHT OIL OPERATOR Work Phone: [facility] 03-28-2015 influenza, seasonal, injectable LIGHT OIL OPERATOR-C Milagros Elsa LIGHT OIL OPERATOR Work Phone: [facility] 03-10-2014 influenza virus vacc ine, unspecified formulation DR ZULEMA MOLINA MD [facility] 03-10-2014 influenza, injectabl e, quadrivalent, preservative free LIGHT OIL OPERATOR-C Milagros Elsa LIGHT OIL OPERATOR Work Phone: [facility] 03-10-2014 influenza, seasonal, injectable LIGHT OIL OPERATOR-C Milagros Elsa LIGHT OIL OPERATOR Work Phone: [facility] 03-10-2014 pneumococcal polysaccharide vaccine, [address] ZULEMA MOLINA MD [facility] 06-29-2013 influenza virus vacc ine, unspecified formulation DR ZULEMA MOLINA MD [facility] 06-29-2013 influenza, injectabl e, quadrivalent, preservative free LIGHT OIL OPERATOR-C Milagros 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 06-29-2013 influenza, seasonal, injectable LIGHT OIL OPERATOR-C Milagros Robleser LIGHT OIL OPERATOR Work Phone: [facility] 04-22-2012 influenza virus vacc ine, unspecified formulation DR ZULEMA MOLINA MD [facility] 04-22-2012 influenza, injectabl e, quadrivalent, preservative free LIGHT OIL OPERATOR-C Milagros 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 04-22-2012 influenza, seasonal, injectable LIGHT OIL OPERATOR-C Milagros Robleser LIGHT OIL OPERATOR Work Phone: [facility] Payers Date Payer Category Payer Private Health Insurance [id number] 2023 Self-pay [id number] 2022 Medicaid [id number] 2011 Medicare HUMANA MEDICARE HUMANA MEDICARE PPO [id number] 2011-Present [phone] [place] [address] PPO [id number] 2011 Medicare [id number] 1938 Unknown [id number] 2..840.1.766953.3.579.2.6 1938 Unknown [id number] 2.16.840.1.923374.3.579.2.6 27 1938 Unknown [id number] 2.16.840.1.204896.3.579.2.6 1938 Unknown [id number] 2.16.840.1.713705.3.579.2.6 51 1938 Unknown [id number] 2.16.840.1.967070.3.579.2.6 51 1938 Unknown [id number] 2.16.840.1.896204.3.579.2.1 243 1938 Unknown [id number] 2.16.840.1.785711.3.579.2.1 243 1938 Unknown [id number] 2.16.840.1.743912.3.579.2.1 243 1938 Unknown [id number] 2.16.840.1.939901.3.579.2.1 243 1938 Unknown [id number] 2.16.840.1.003059.3.579.2.1 243 1938 Unknown [id number] 2.16.840.1.796834.3.579.2.1 243 1938 Unknown [id number] 2.16.840.1.912018.3.579.2.1 1938 Unknown [id number] 2.16.840.1.508534.3.579.2.1 1938 Unknown [id number] 2.16.840.1.460814.3.579.2.1 1938 Unknown [id number] 2.16.840.1.000998.3.579.2.1 1938 Unknown [id number] 2.16.840.1.983956.3.579.2.1 1938 Unknown [id number] 2.16.840.1.902016.3.579.2.1 1938 Unknown [id number] 2.16.840.1.835436.3.579.2.1 1938 Unknown [id number] 2.16.840.1.519915.3.579.2.1 1938 Unknown [id number] 2.16.840.1.028069.3.579.2.1 1938 Unknown [id number] 2.16.840.1.592870.3.579.2.1 1938 Unknown [id number] 2.16.840.1.060428.3.579.2.1 1938 Unknown [id number] 2.16.840.1.447919.3.579.2.1 1938 Unknown [id number] 2.840.1.279218.3.579.2.1 1938 Unknown [id number] 2.840.1.021012.3.579.2.1 1938 Unknown [id number] 2.840.1.953465.3.579.2.1 1938 Unknown [id number] 2.840.1.176893.3.579.2.1 [facility] 1938 Unknown [id number] 2.840.1.152965.3.579.2.1 1938 Unknown [id number] 2.840.1.315493.3.579.2.1 [facility] 1938 Unknown [id number] 2.840.1.485567.3.579.2.1 [facility] 1938 Unknown [id number] 2.16840.1.762490.3.579.2.1 245 Medicaid MEDICAID [id number] Unknown [id number] 2.16840.1.778625.3.579.2.4 62 Unknown [id number] 2.16840.1.317806.3.579.2.4 62 Unknown [id number] 2.16.840.1.545119.3.579.2.4 62 Unknown [id number] 2.16.840.1.957417.3.579.2.4 62 Unknown [id number] 2.16.840.1.707418.3.579.2.4 62 Unknown [id number] 2.16.840.1.355467.3.579.2.4 62 Unknown [id number] 2.16.840.1.769714.3.579.2.4 62 Unknown [id number] 2.16.840.1.628010.3.579.2.4 62 Unknown [id number] 2.16.840.1.933117.3.579.2.4 62 Unknown [id number] 2.16.840.1.414416.3.579.2.4 62 Unknown [id number] 2.16.840.1.295649.3.579.2.4 62 Unknown [id number] 2.16.840.1.901473.3.579.2.4 62 Unknown [id number] 2.16.840.1.076488.3.579.2.4 62 Unknown [id number] 2.16.840.1.536958.3.579.2.4 62 Unknown [id number] 2.16.840.1.639982.3.579.2.4 62 Social History Date Type Detail Facility [facility] Work Phone: Start: 09-16-2021 End: 06-30-2023 Tobacco smoking status OKIS Unknown if ever smoked [facility] Start: 1940 Sex Assigned At Female A [facility] Start: 12-18-2021 End: 03-07-2024 Tobacco smoking status Never smoked tobacco (finding) [facility] Start: 05-26-2015 Tobacco use and exposure Smokeless tobacco non-user [facility] Start: 08-20-2023 Alcohol intake Ex-drinker (finding) [facility] Start: 08-20-2023 History of Social function [facility] Start: 08-20-2023 Area Deprivation Index [facility] National Score (1-100), lower number is lower risk 47 [facility] Start: 1940 Sex Assigned At Not on file [facility] Start: 07-20-2024 Sex Female (finding) [facility] NEGATED: Highlighted row [facility] Medical Equipment Procedure Code Equipment Code Equipment Origin al Text Equipment Identifier Dates Primary uncemented hemiarthroplasty of hip KIT,FEMORAL BONE CEMENT PREP FDA Start: 09-30-2022 Primary uncemented hemiarthroplasty of hip ([id number]) Uncoated hip femur prosthesis, one-piece ()[id number] FDA Start: 09-30-2022 Primary uncemented hemiarthroplasty of hip (939357640) Orthopaedic cement spacer ()[id number] FDA Start: 09-30-2022 Primary uncemented hemiarthroplasty of hip (965144429) Coated hip femur prosthesis, modular ()[id number] FDA Start: 09-30-2022 Primary uncemented hemiarthroplasty of hip (846505766) Uncoated hip femur prosthesis, one-piece ()[id number] FDA Start: 09-30-2022 Primary uncemented hemiarthroplasty of hip Orthopaedic cement, non-antimicrobial ()[id number])[id number] FDA Start: 09-30-2022 Primary uncemented hemiarthroplasty [...] Facility 10-17-2022 Functional status Ambulates;Up ad gaye [facility] Work Phone: 10-09-2022 Functional status Bedrest [facility] Work Phone: 10-07-2022 Functional status Tolerates Activity [facility] Work Phone: 10-02-2022 Functional status Chair [facility] Work Phone: 10-02-2022 Functional status Assistive Hannah faheem Rolling Walker [facility] Work Phone: 09-30-2022 Functional status Tolerates Activity [facility] Work Phone: 05-19-2022 Functional Status Standard Safet y Precautions maintained [facility] 05-19-2022 Functional Status [facility] Mental Status Date Assessment Result Facility 11-27-2022 Cognitive function Level Of Cons ciousness Awake;Alert;Appropriate;Follow s Commands [facility] Work Phone: 10-17-2022 Cognitive function Voice/Name [facility] Work Phone: 10-13-2022 Cognitive function Appropriate [facility] Work Phone: 10-09-2022 Cognitive function Voice/Name [facility] Work Phone: 10-08-2022 Cognitive function Voice/Name [facility] Work Phone: 10-02-2022 Cognitive function Voice/Name [facility] Work Phone: 05-19-2022 Mental Status Orientation Oriented x 4 [facility] 10-01-2021 Cognitive function Voice/Name [facility] Work Phone: 07-02-2021 Cognitive function Voice/Name [place] [facility] Work Phone: Clinical Notes 12-10-2015 to 09-17-2024 Note Date & Type Note Facility 09-17-2024 Radiology Diagnostic study note [facility] Imaging Services [address] [place] [address] Cerv Spine 2 or 3 Views MR#: [id number] Acct: [id number] Name: HUYEN VALERIO Rep #: [id number] : 1940 F 84 From: Kelli Manning MD PCP: KULDIP BarreraC Status: HECTOR Nix CLI Study:Cerv Spine 2 or 3 Views Date of Exam: 09/15/24 Exam# [id number] Ordering Dr: Gi Hoskins MD EXAM: XR [...] the cervical spine as described. Reading Location: [facility] CC: LIGHT OIL OPERATOR-Micheal Hunter; Dr. Mylene Hoskins MD ~ Product Test Specialist: Signed [facility] 07-05-2024 Radiology Diagnostic study note [facility] Imaging Services [address] [place] [address] Thoracic Spine 3 Views MR#: [id number] Acct: [id number] Name: HUYEN VALERIO I Rep #: [id number] : 1940 F 83 From: Bret Clemens MD PCP: KULDIP BarreraC Status: HECTOR G CLI Study:Thoracic Spine 3 Views Date of Exam: 07/05/24 Exam# [id number] Ordering Dr: Gi Hoskins MD PROCEDURE: THORACIC [...] the thoracic vertebrae. Increased kyphosis. Reading Location: [id number] CC: LIGHT OIL OPERATOR-C Milagros Hunter; Dr. Mylene Hoskins MD ~ Product Test Specialist: Signed [facility] 06-28-2024 Evaluation note Diagnosis Onset Date Resolution Hiatal hernia with GERD acute June 28, 9:15am Nausea acute June 28, 2024 9:15am [facility] Work Phone: 1(279) 652-967111-19-2024 Evaluation note* Diagnosis Onset Date Resolution Status Admit Date Hiatal hernia with GERD acute N ovember 2023 1:49pm Nausea acute March 29, 2024 1:49pm Hiatal hernia with GERD acute F ebruary 2024 9:15am Nausea acute June 28, 2024 9:15am [facility] Work Phone: 1(409) 243-540110-29-2024 [facility] Medical Records Department [address] [place] [address] History Physical Exam 03/08/24 1152 MR#: [id number] Acct: [id number] Name: HUYEN VALERIO I Rep #: [id number] : 1940 83 From: Jimenez Friend DO PCP: YENIFER Barrera Status:[facility] Location: [address] History and Physical Date of Admission: 03/08/24 HUYEN VALERIO, is a 83 F who presents to the office today for establishment with [facility]. She has a PMHx of Zenker diverticulum, [...] Appearance: average body habitus and well nourished [facility] Head: normal to inspection Ears: hearing grossly [...] 03/08/24 1153 Cosigner Signature (if applicable): CC: LIGHT OIL OPERATOROlvin Hunter; Jimenez Matthew 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 [facility]24 NoteHNO ID: [id number] Author: LAURE VARELA II, OD Service: ? 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 M06.9 Rheumatoid arthritis involving multiple sites, unspecified whether rheumatoid factor present ([facility]) Comment: No ocular complications at this time. [...] of its relevant components. [facility]2023 Discharge summary Author Tommy Vazquez [facility] November 27, 2022 2:18pm Note Date/Time November 27, 2022 11:5 0am [facility] Medical Records Department [address] [place] [address] Emergency Department Summary 11/27/22 MR#: [id number] Acct: [id number] Name: HUYEN VALERIO I Rep #:[id number] : 1940 82 From: Tommy Vazquez MD [...] Yes (Total hip arthroplasty on the right) [facility] Medical History Arthritis Back pain Cardiology follow-up [...] 90.7 H Lymph % (Auto) 2.2 L [place] % (Auto) 5.7 Eos % (Auto) 0.2 [...] Clarity Clear Urine pH 5.0 Ur Specific [place] 1.020 Urine Protein 30 H Urine Glucose [...] 386 ms. There is evidenceof low voltage. Cornucopia is to the left as well. The EKG is not normal.) Differential Diagnosis Chest pain/SOB: pneumothorax Reason(s) pneumothorax less likely: Positive for bilateral breath sounds and TELEPHONE ANSWERING SERVICE OPERATOR withhout PTX, pneumonia Reason(s) pneumonia lesslikely: Positive for no infiltrate on CXR and aortic dissection Management Discussion w/another healthcare provider: Other (Her manager asset office apparently is closed today. The manager asset Dr. Leiva was paged through service. Nipomo has attempted to contact patient's nurse practitioner [...] Referrals: Katarina Wilks MD [Med Staff - Api Architect] - As soon as possible Milagros Hunter NP, LIGHT OIL OPERATOR-C [Primary Care Provider] - 2 Days Activity [...] your Primary Care Provider. Call [facility] ([phone]) or report to the closest Emergency Room. Call 911 if necessary. 11/27/22 1418 <Electronically signed by Tommy Vazquez MD> Kristinaigner Signature (if applicable): CC: YENIFER Hunter ~ Signed [facility] Work Phone: 1(235) 256-868606-01-2023 History and physical note Author Jimenez Friend [facility] October 09, 2022 12:42pm Note Date/Time October 09, 2022 12:42 pm [facility] Medical Records Department [address] [place] [address] History & Physical Exam 10/09/22 1242 MR#: [id number] Acct: [id number] Name: HUYEN VALERIO I Rep #:[id number] : 1940 82 From: Jimenez Matthew DO PCP: Milagros Hunter, LIGHT OIL OPERATOR-C Status:RE [facility] Location: [place] [address] History and Physical Date of Admission: 10/09/22 HUYEN VALERIO, is a 82 F with a history of rheumatoid arthritis, Sjogren's syndrome and possibly scleroderma and she is on methotrexate, prednisone, Xeljanz, folic acid and Celebrex by her manager asset Dr. Church.? Bilateral hand, wrist and small [...] pillsand liquids over the last 6 months. [facility] Medical History?(Updated 10/07/22 @ 17:[address] [...] 10/03/22 14:22? SLA? (Rec: 10/03/22 14:23? SLA? [id number]) ?Nutrition ?? ? Malnutrition ? ? ? [...] w/ meals tid and ? d/c Ensure [place] High Protein [facility] ? Rec consider appetite ? stimulant to [...] CC: YENIFER Hunter; Jimenez Matthew DO~ Signed [facility] Work Phone: 1(639) 724-519306-01-2023 Procedure [facility] 10-09-2022 Procedure [facility]01-09-2023 Evaluation + Plan noteExtracted from: Title:Clinical Document Author:ZULEMA MOLINA Date:05/19/22 CHAMPION ADMISSION HISTORY AN D PHYSICIAL CHIEF COMPLAINT: HISTORY OF PRESENT ILLNESS: REVIEW OF SYSTEMS: ACTIVE PROBLEMS: (6) Dysphagia (39740827) Elevated liver enzymes (8832564286) Hiatal hernia with GERD (11cm 11/29/13) (3967263032) Osteoporosis (166317876) Rheumatoid arthritis (840978201) Stomach burning (481696892) MEDICATIONS: Active Inpt Meds: None Active PRN Meds: None One Time Meds: None Active IV Meds: Lactated Ringers Infusion 1,000 mL (LR 1,000 mL) Start: 05/19/22 7:38:00 EST, Rate: 50 mL/hr, 05/19/22 7:38:00 EST ALLERGIES: (1) penicillin FAMILY HISTORY: SOCIAL HISTORY: PHYSICAL EXAM: VITALS: FiynirLzicXTPlybpYGQqX0GKZ1OzjrXd(kg) 05/19 07:5836.2--760657MV71/09 50.0 24 Hr Tmax: 36.2 at 05/19 [...] Appointment Date:06/20/2022 11:30:00 AM Scheduled Provider:MILAGROS HUNTER Location:[facility] Appointment Type:PC OV Future Scheduled Tests Radiology* MA Mammo Screening Bilateral w/ Gabriel 05/16/22 * BD Bone Density DEXA Axial Skeleton 03/21/22 [facility] [place] 01-09-2023 Hospital Discharge instructions Patient Education 05/19/2022 [...] until you are awake and alert. Take ohpf-uun-kjprsvg and prescription medicines only as told by [...] 02/15/2014 Document Revised: 04/09/2018 Document Reviewed: 08/16/2016 [employer] Patient Education 2020 7-bites 05/19/2022 10:17:21 Esophagogastroduodenoscopy, Care After (68495) Esophagogastroduodenoscopy, Care After Refer to this sheet [...] 04/13/2013 Document Revised: 10/02/2016 Document Reviewed: 03/20/2016 [employer] Interactive Patient Education 2019 7-bites Follow Up Care 05/15/2022 08:21:03 With:ZULEMA MOLINA MD Address: [address] [phone] When: Unknown Comments:BIOPSY TAKEN, PLEASE CALL FOR RESULT AND ANY FOLLOW UP [facility] 01-09-2023 Summary of episode note Discharge Instructions Thank you for allowing [facility] to assist you with your healthcare needs. The following is importantdischarge information regarding your hospital visit. Your Care Team MILAGROS HUNTER What to do next Scheduled Follow-Up Appointments Appointment Type When With Where Contact InformationPC OV 06/20/2022 11:30 AM MILAGROS RAO [facility] [address] [place] [address] Follow Up Appointments Follow Up with ZULEMA MOLINA MD When Why: BIOPSY TAKEN, PLEASE CALL FOR RESULT AND ANY FOLLOW UP Where: [address] [facility] [address] [place] [phone] Allergies penicillin (Hives) Medications Please ask your [...] until you are awake and alert. Take bsoa-egm-inugxve and prescription medicines only as told by [...] 02/15/2014 Document Revised: 04/09/2018 Document Reviewed: 08/16/2016 [employer] Patient Education 2020 [employer] Esophagogastroduodenoscopy, Care After Refer to this [...] 04/13/2013 Document Revised: 10/02/2016 Document Reviewed: 03/20/2016 [employer] Interactive Patient Education 2019 [employer] Additional Information VACCINATE! IT SAVES LIVES! Members of the community who have not yet received the COVID-19 vaccine and would like to receive it can visit one of [facility] vaccine clinics. There are many vaccine clinic locations within the [facility]. For locations and available times, please visit [email or web address] It is important to note that some COVID mobile vaccine clinics are held outdoors and may be canceled in rainy or stormy conditions. To learn more about pediatric vaccinations (ages 5-11), we invite you to visit the [facility] webpage. [email or web address]/[email or web address]-[email or web address]-[email or web address] [email or web address].htmlTo learn more about the COVID-19 vaccine, we invite you to visit the [employer] website for a list of frequently asked questions. [email or web address] _[email or web address]-Questions.pdf [facility] Patient Portal Access Instructions: Stay connected with your healthcare team and access your personal medical information anytime with the [facility] [employer] Patient Portal.If you would like a full copy of your medical records, please contact the [facility] Medical Records Department, Thursday through Thursday between 8a.m. and 4:30p.m. Please follow the directions below to access the portal: 1.Access the email account you provided upon registration to the [facility].2.Look for an invitation email from [facility].3.Open the email and access the invitation link: Accept Invitation to [facility]4.Fill in the required suggs to create your account. Sign into www.[employer] with your username and password that you [...] you will allow to register on the [facility] [employer] Patient Portal for access to your information. You can also access the [facility] [employer] Patient Portal on the [employer] marti. Simply click on Health Records under [employer] and then click on the [facility] logo. [...] Call your local pharmacy or go to http://bit.ly/6U8Sb2v to find one close to you.3.Make use of household items: Use cat litter or old coffee grounds to dispose medications if other options arenot available. Mix your drugs with these household products, seal them in an airtight container andthrow it into the garbage. Call [facility]: [phone] to be sure your drugs can be [...] Sedation, Adult, Care After Esophagogastroduodenoscopy, Care After (36220) Medication Leaflets My discharge plan and instructions have been reviewed and explained to me and I,HUYEN VALERIO I understand my current condition and have read and understand these discharge instructions. I have received a written copy of the plan/instructions. If I have questions, I am aware that I should contact my doctor. Patient/Upholstery Handler Signature: Date/Time: Relationship to Patient: Witness Name/Signature: Date/Time: [facility]01-09-2023 Anesthesiology Consult note Patient: HUYEN VALERIO I [...] by MADHAVI RUBY on 05/19/2022 10:09 AM [facility]01-09-2023 Note [facility]AMPION ADMISSION HISTORY AND PHYSICIAL CHIEF COMPLAINT: HISTORY OF PRESENT ILLNESS: REVIEW OF SYSTEMS: ACTIVE PROBLEMS: (6) Dysphagia (99180966) Elevated liver enzymes (2367158161) Hiatal hernia with GERD (11cm 11/29/13) (5922514957) Osteoporosis (232474985) Rheumatoid arthritis (303580597) Stomach burning (419862827) MEDICATIONS: Active Inpt Meds: None Active PRN Meds: None One Time Meds: None Active IV Meds: Lactated Ringers Infusion 1,000 mL (LR 1,000 mL) Start: 05/19/22 7:38:00 EST, Rate: 50 mL/hr, 05/19/22 7:38:00 EST ALLERGIES: (1) penicillin FAMILY HISTORY: SOCIAL HISTORY: PHYSICAL EXAM: VITALS: BmdiydSbrvSYZpslmEABzJ3CHY9GxsoAq(kg) 05/19 07:5836.2--807047BJ84/09 50.0 24 Hr Tmax: 36.2 at 05/19 [...] ZULEMA MOLINA MD on 05/19/2022 09:57 AM [facility]01-09-2023 Anesthesiology Consult note Patient: HUYEN VALERIO I Age: 81 years Sex: Female : 1940 Associated Diagnoses: None Author: MADHAVI RUBY APRN-LEGAL SUPPORT MANAGER Preoperative Information Time of last food or [...] Problem list: Medical Dysphagia / SNOMED CT 57218759 / Confirmed Elevated liver enzymes / SNOMED CT 7100010284 / Confirmed Hiatal hernia with GERD (11cm 11/29/13) / SNOMED CT 9647392053 / Confirmed Osteoporosis / SNOMED CT 690623126 / Confirmed Rheumatoid arthritis / SNOMED CT 682356025 / Confirmed Stomach burning / SNOMED CT 558029059 / Confirmed, Active Problems (6) Dysphagia Elevated [...] or without patella resurfacing (total knee arthroplasty) (22349). Comments: 05/19/2022 7:53 EST - JOSELO Sapp BILATERAL Esophageal hiatus hernia repair (56925392). Catheter ablation of arrhythmogenic focus (9558668493). Kyphoplasty of fracture of thoracic spine using computed tomography (CT) guidance (1390559184). Social History Social & Psychosocial Habits Alcohol [...] Resp Rate 15 br/min (MAY 19 07:58) GVT959 mmHg (MAY 19 07:58) DBP81 mmHg (MAY 19 07:58) Measurements from flowsheet : Measurements 05/19/2022 7:58 EST Height 155 cm Admission Weight 50.0 kg Weight Method Stated Ferdinand Body Weight 47.85 kg Pain assessment: Pain [...] Surgeon SN - CAt - Role Performed Custodial Officer 1 SN - CAt - Role Performed LEGAL SUPPORT MANAGER SN - CAt - Role Performed Digital Advisor 05/19/2022 7:58 EST Designated Person #1 We May Share JAY HERNANDEZ [phone] Designated Person #1 Relationship Daughter Privacy Restrictions Requested None Height 155 cm Admission Weight 50.0 kg Weight Method Stated Ferdinand Body Weight 47.85 kg Temperature Temporal Artery [...] Status N/A Skin Temperature Warm Skin Description [place] Skin Integrity Intact Skin Moisture General Dry [...] evident Teaching Method Explanation Preferred Written Language German Preferred Spoken Language German Information Given by Patient Patient's Current Physicians [...] Day Patient History . Assessment and Plan [place] [employer]esthesi[employer] (ASA) physical status classification: Class II. Anesthetic Preoperative Plan Anesthetic technique: MAC. Postoperative pain management: Per surgeon. Informed consent: signed by patient. Digitally Signed by MADHAVI RUBY on 05/19/2022 09:51 AM [facility]08-01-2016 History of Past illness Narrative* Problem Noted Date Diagnosed Date Resolved Date Astigmatism of left eye 12/10/201501/09 Pseudophakia, right eye 12/07/201501/10 Regular astigmatism 11/26/2015 01/26/20 16 Combined form of senile cataract of left eye 6 01/31/2016 Dry eye syndrome 05/26/2015 10/16/2015 documented as of this encounter (statuses as of 08/21/2023) [facility] N[facility]* Chief Complaint 1 Y FU PREV PFM HIP Reason for Visit Pre-op evaluation MVP (mitral valve prolapse) Premature atrial contraction Premature ventricular contraction History of cardiac radiofrequency ablation Supraventricular tachycardia [facility] Work Phone: Discharge summary Author Cyril Burden [facility] June 30, 2023 10:21am Note Date/Time June 30, 2023 9:51am [facility] Medical Records Department [address] [place] [address] Emergency Department Summary 06/30/23 MR#: [id number] Acct: [id number] Name: HUYEN VALERIO I Rep #:[id number] : 1940 82 From: Cyril Burden MD PCP: Milagros Hunter NP-C Status:WI E ER Location: ED HPI History of [...] - As soon as possible Milagros Hunter LIGHT OIL OPERATOR, LIGHT OIL OPERATOR-C [Primary Care Provider] - Activity Restrictions/Additional Instructions: [...] your Primary Care Provider. Call [facility] ([phone]) or report to the closest Emergency Room. Call 911 if necessary. 06/30/23 1021 <Electronically signed by Cyril Burden MD> Kristinaign Signature (if applicable): CC: LIGHT OIL OPERATOR-C Milagros Hunter ~ Signed [facility] Work Phone: Evaluation + Plan note Future Appointments Appointment Date:04/15/2024 11:30:00 AM Scheduled Provider:MILAGROS HUNTER APRN-URGENT CARE PHYSICIAN Location:[facility] Appointment Type:PC OV Future Scheduled Tests Radiology* XR Knee 3 Views Right 02/17/24 * XR Ribs 2 Views Left 10/19/23 [facility] Evaluation note* Diagnosis Onset Date Resolution Status [...] acute Abdominal hernia acute Incisional hernia acute [facility] Work Phone: Evaluation note* Diagnosis Onset Date Resolution Status MVP (mitral valve prolapse) acute Ovarian cyst, right acute Premature atrial contraction acute Premature ventricular contraction acute History of cardiac radiofrequency ablation resolved Supraventricular tachycardia resolved Ovarian cyst, right acute Incisional hernia acute Incisional hernia acute S/P hernia repair acute [facility] Work Phone: Evaluation note* Diagnosis Onset Date Resolution Status Incisional hernia acute S/P hernia repair acute Incisional hernia acute S/P hernia repair acute MVP (mitral valve prolapse) chronic Premature atrial contraction chronic Premature ventricular contraction chronic History of cardiac radiofrequency ablation resolved Supraventricular tachycardia resolved [facility] Work Phone: Evaluation noteNo assessment information available [facility] Work Phone: Evaluation note* Diagnosis Onset Date Resolution Status Degeneration of uterine fibroid acute [facility] Work Phone: Evaluation note* Diagnosis Onset Date [...] acute Rheumatoid arthritis acute Chronic diarrhea chronic [facility] Work Phone: Evaluation note* Diagnosis Onset Date Resolution Status Diarrhea resolved Dysuria resolved Fall resolved Hyperbilirubinemia resolved Hypophosphatemia resolved Leukocytosis resolved Debility acute GERD (gastroesophageal reflux disease) acute History of right hip hemiarthroplasty acute Osteoarthritis acute Osteoporosis acute Rheumatoid arthritis acute Chronic diarrhea chronic Dysphagia resolved Hypophosphatemia resolved [facility] Work Phone: Evaluation note* Diagnosis Onset Date Resolution Status Diarrhea resolved Dysuria resolved Fall resolved Hyperbilirubinemia resolved Hypophosphatemia resolved Leukocytosis resolved Debility acute GERD (gastroesophageal reflux disease) acute History of right hip hemiarthroplasty acute Osteoarthritis acute Osteoporosis acute Rheumatoid arthritis acute Chronic diarrhea chronic Dysphagia resolved Hypophosphatemia resolved Back pain acute Fever acute [facility] Work Phone: Evaluation note* Diagnosis Onset Date Resolution Status Pre-op evaluation acute MVP (mitral valve prolapse) chronic Premature atrial contraction chronic Premature ventricular contraction chronic History of cardiac radiofrequency ablation resolved Supraventricular tachycardia resolved [facility] Work Phone: Evaluation note* Diagnosis Keratitis sicca, bilateral (HCC)- Primary Other forms of keratitis Rheumatoid arthritis involving multiple sites, unspecified whether rheumatoid factor present (HCC) Pseudophakia of both eyes Lens replaced by other means Vitreous floaters of both eyes Regular astigmatism, bilateral documented in this encounter [facility] course Narrative No data available for this section [facility] Discharge instructions Additional Instructions Normal appendix on CT. uterine fibroids noted. Labs were normal. Urine culture sent will be contacted if you need antibiotics Since you are not having any symptoms of urine infection. Tylenol as needed. Follow-up with Dr. Vickers.[facility] Work Phone: Hospital Discharge instructions Additional Instructions Contact Dr. Wilks regarding your next dose of medication to treat your rheumatoid arthritis since you have a fever. Take antibiotics starting tomorrow. If your cultures are positive you will be contacted and will have DrEsequiel Prescribe appropriate duration of medication. If your blood cultures are positive you will be asked to return.[facility] Work Phone: Hospital Discharge instructions Additional Instructions Ice to your hip. Your hip exam looks good. The hip prosthesis looks good. There is no fracture seen or dislocation. Usual pain medications at home. Call and follow-up with Dr. Preston for further evaluation.[facility] Work Phone: Hospital Discharge instructions No data available for this section [facility] Progress note No data available for this section [facility] Reason for referral (narrative)No reason for referral information availableWTriHealth [facility] Work Phone: Chief Complaint and Reason [...] pain Chief Complaint abd pain abd pain [facility] ED f/u for fibroids OSTEO Reason for Visit Degeneration of uter ine fibroid Chief Complaint abd pain abd pain [facility] ED f/u for fibroids OSTEO SCREENING Reason for Visit Degeneration of uter ine fibroid Chief Complaint [facility] ED f/u for fibro ids OSTEO [...] Yes June 25, 022 3:53pm Power of [employer] Worker Yes June 25, 2021 3:53pm Advance Directive Response Recorded Date/ Time Name of Medical Power of [employer] Worker DAUGHTER June 25, 2021 3:53pm Living Will No September 26, 2021 2 :11pm Power of [employer] Worker No September 26, 2021 2:11pm Advance Directive Response Recorded Date/ Time Name of Medical Power of [employer] Worker DAUGHTER June 25, 2021 3:53pm Living Will No October 18, 2021 5:32pm Power of [employer] Worker No October 18 5:32pm Advance Directive Response Recorded Date/ Time Living Will No October 18, 2021 5:32pm Power of [employer] Worker No October 18 5:32pm Advance Directive Response Recorded Date/ Time Living Will No May 04 022 12:59pm Power of [employer] Worker No May 04, 2022 12:59pm Advance Directive Response Recorded Date/ Time Living Will No May 11 3 11:06am Power of [employer] Worker No May 11, 2 023 11:06am Advance Directive Response Recorded Date/ Time Living Will No May 11 3 12:06pm Power of [employer] Worker No May 11, 2 023 12:06pm Advance Directive Response Recorded Date/ Time Living Will No October 08, 2022 3 :50pm Power of [employer] Worker No October 08, 2022 3:50pm Advance Directive Response Recorded Date/ Time Living Will No November 27, 2022 2:43pm Power of [employer] Worker No November 27 2:43pm Advance Directive Response Recorded Date/ Time Living Will No November 27, 2022 10:03pm Power of [employer] Worker No November 27 3 10:03pm Advance Directive Response Recorded Date/ Time Living Will No June 30 024 9:41am Power of [employer] Worker No June 30, 2023 9:41am Advance Directive Response Recorded Date/ Time Living Will No June 30 10:41am Power of [employer] Worker No June 30, 2023 10:41am Advance Directive Response Recorded Date/ Time Living Will Yes March 07 8:47am Power of [employer] Worker Yes March 07, 2024 8:47am Living Will No October 13, 2023 3 :23pm Power of [employer] Worker No October 13, 2023 3:23pm Summary Purpose [...] content) Care Team Personnel Name: MILAGROS HUNTER APRN-URGENT CARE PHYSICIAN Position: P4 Advanced Practice Nurse Member Role: Primary Care Physician Address: Address: [address] Care Team Related Persons Name: MARY DOUGLAS INFORMATION SOURCE (unrecogn ized section and content) DATE CREATED AUTHOR 05/28/2022 [facility]) DATE CREATED AUTHOR AUTHOR'S ORGANIZ ATION 04/02/2023 [facility] DATE CREATED AUTHOR AUTHOR'S ORGANIZ ATION 08/29/2023 [facility] DATE CREATED AUTHOR AUTHOR'S ORGANIZ ATION 10/14/2023 [facility] DATE CREATED AUTHOR AUTHOR'S ORGANIZ ATION 10/21/2023 [facility] DATE CREATED AUTHOR AUTHOR'S ORGANIZ ATION 02/19/2024 [facility] DATE CREATED AUTHOR AUTHOR'S ORGANIZ ATION 05/29/2024 [facility] DATE CREATED AUTHOR AUTHOR'S ORGANIZ ATION 08/21/2024 [facility] DATE CREATED AUTHOR AUTHOR'S ORGANIZ ATION 10/09/2024 [facility] Care Teams (unrecognized sec tion and content) Team Status: Active Member Role Status Dates Kiya NELSON, PA Family Provider Active Milagros Hunter LIGHT OIL OPERATOR, LIGHT OIL OPERATOR-C Primary Care Provider Activ e Team Status: Inactive Member Role Status Dates Milagros Hunter LIGHT OIL OPERATOR, LIGHT OIL OPERATOR-C Primary Care Provider, Refe rring Provider Active Jacquie Cruz LIGHT OIL OPERATOR, LIGHT OIL OPERATOR-C Attending Provider Active Team Status: Inactive Member Role Status Dates iMlagros Hunter LIGHT OIL OPERATOR, LIGHT OIL OPERATOR-C Primary Care Provider, Atte nding Provider Active Team Status: Inactive Member Role Status Dates Milagros Hunter LIGHT OIL OPERATOR, LIGHT OIL OPERATOR-C Primary Care Provider Activ e Dr. Jackson Manning , DO Attending Provider, Emergency Provide r Active Team Status: Inactive Member Role Status Dates Milagros Hunter LIGHT OIL OPERATOR, LIGHT OIL OPERATOR-C Primary Care Provider Activ e Dr. Ross Adler , Attending Provider, Emergency Pro vider Active Team Status: Inactive Member Role Status Dates Milagros Hunter LIGHT OIL OPERATOR, LIGHT OIL OPERATOR-C Primary Care Provider Activ e Dr. Mylene Hoskins MD Attending Provider, Referring Pr ovider Active Team Status: Active Member Role Status Dates Milagros Hunter LIGHT OIL OPERATOR, LIGHT OIL OPERATOR-C Primary Care Provider Activ e Dr. Nilda Cole MD Emergency Provider Active Dr. Ever Hummel MD Admit Provider, A ttending Provider, Other Provider Active Team Status: Active Member Role Status Dates Milagros Hunter NP, LIGHT OIL OPERATOR-C Primary Care Provider Activ e Dr. Nilda Cole MD Emergency Provider Active Dr. Ever Hummel MD Admit Provider, Other Provider Active Dr. Alfred Knutson MD Other Provider Active Dr. Josephine Watson DO Attending Provider, Other Provide r Active Team Status: Active Member Role Status Dates Milagros Hunter LIGHT OIL OPERATOR, LIGHT OIL OPERATOR-C Primary Care Provider Activ e Dr. Nilda Cole MD Emergency Provider Active Dr. Ever Hummel MD Admit Provider, Other Provider Active Dr. Josephine Watson DO Attending Provider, Other Provide r Active Dr. Alfred Knutson MD Other Provider Active Team Status: Active Member Role Status Dates Milagros Hunter LIGHT OIL OPERATOR, LIGHT OIL OPERATOR-C Primary Care Provider Activ e Dr. Adalberto Willingham MD Admit Provider, Other Provider A ctive Dr. Michelle Manley , Other Provider Active Dr. Jimenez Matthew , DO Attending Provider Active Team Status: Active Member Role Status Dates Milagros Hunter LIGHT OIL OPERATOR, LIGHT OIL OPERATOR-C Primary Care Provider, Refe rring Provider Active Dr. Jimenez Matthew , Attending Provider, Other Prov ider Active Team Status: Inactive Member Role Status Dates Milagros Hunter NP, LIGHT OIL OPERATOR-C Primary Care Provider Activ e Dr. Nilda Cole MD Emergency Provider Active Dr. Ever Hummel MD Admit Provider, Other Provider Active Dr. Josephine Watson , Attending Provider Active Dr. Alfred Knutson MD Other Provider Active Team Status: Active Member Role Status Dates Milagros Hunter NP, LIGHT OIL OPERATOR-C Primary Care Provider Activ e Dr. Adalberto Willingham MD Admit Provider, Attending Provid er Active Dr. Michelle Manley , DO Other Provider Active Team Status: Inactive Member Role Status Dates Milagros Hunter LIGHT OIL OPERATOR, LIGHT OIL OPERATOR-C Primary Care Provider, Refe rring Provider Active Dr. Jimenez Matthew , Attending Provider Active Team Status: Active Member Role Status Dates Milagros Hunter NP, LIGHT OIL OPERATOR-C Primary Care Provider Activ e Dr. Adalberto Willingham MD Admit Provider, Re ferring Provider, Other Provider Active Dr. Michelle Manley , Other Provider Active Dr. Jimenez Matthew , Attending Provider Active Team Status: Inactive Member Role Status Dates Milagros Hunter NP, LIGHT OIL OPERATOR-C Primary Care Provider Activ e Dr. Adalberto Willingham MD Admit Provider, Attending Provid er Active Dr. Michelle Manley , Other Provider Active Team Status: Inactive Member Role Status Dates Milagros Hunter NP, LIGHT OIL OPERATOR-C Primary Care Provider Activ e Dr. Tommy Vazquez MD Emergency Provider Active Team Status: Active Member Role Status Dates Milagors Hunter NP, LIGHT OIL OPERATOR-C Primary Care Provider Activ e Dr. Eb Kendrick MD Emergency Provider Active Dr. Tate Moreno MD Admit Provider, Attending Provider, Referring Provider Active Team Status: Inactive Member Role Status Dates Milagros Hunter LIGHT OIL OPERATOR, LIGHT OIL OPERATOR-C Primary Care Provider, Refe rring Provider Active Dr. Matias Best MD Active Po Jenkins NP, LIGHT OIL OPERATOR-C Attending Provider Active Team Status: Inactive Member Role Status Dates Milagros Hunter NP, LIGHT OIL OPERATOR-C Primary Care Provider Activ e Dr. Cyril Burden MD Emergency Provider Active Health Commissioner Relationship Specialty Start Date End Date Milagros Hunter CNP [address] [place] [id number] PCP - General Family Medicine 08/20/23 Kiya Salazar Family Medicine 05/21/15 Katarina Wilks [address] [place] [address] Rheumatology 08/20/23 Team Status: Inactive Member Role Status Dates Milagros Hunter NP, LIGHT OIL OPERATOR-C Primary Care Provider Activ e Dr. Cyril Burden MD Attending Provider, Emergency Pro vider Active Health Commissioner Relationship Specialty Start Date End Date Milagros Hunter CNP [address] [place] [id number] PCP - General [facility] Medicine 08/20/23 Kiya Salazar [facility] 05/21/15 Katarina Wilks [address] [place] [address] Rheumatology 08/20/23 Team Status: Inactive Member Role Status Dates Milagros Hunter NP, LIGHT OIL OPERATOR-C Primary Care Provider Activ e Start: March 29, 2024 End: March 29, 2024 Milagros Hunter NP, LIGHT OIL OPERATOR-C Referring Provider Active Start: March 29, 2024 End: March 29, 2024 LESLIE Aguilar Attending Provider Active Start: March 29, 2024 End: March 29, 2024 Team Status: Inactive Member Role Status Dates Milagros Hunter NP, LIGHT OIL OPERATOR-C Primary Care Provider Activ e Start: April 19, 2024 End: April 19, 2024 LESLIE Aguilar Attending Provider Active Start: April 19, 2024 End: April 19, 2024 LESLIE Aguilar Referring Provider Active Start: April 19, 2024 End: April 19, 2024 Team Status: Inactive Member Role Status Dates Milagros Hunter LIGHT OIL OPERATOR, LIGHT OIL OPERATOR-C Primary Care Provider Activ e Start: June 28, 2024 End: June 28, 2024 Milagros Hunter NP, LIGHT OIL OPERATOR-C Referring Provider Active Start: June 28, 2024 End: June 28, 2024 LESLIE Aguilar Attending Provider Active Start: June 28, 2024 End: June 28, 2024 Team Status: Inactive Member Role Status Dates Milagros Hunter NP, LIGHT OIL OPERATOR-C Primary Care Provider Activ e Start: July 05, 2024 End: July 05, 2024 Dr. Mylene Hoskins MD Attending Provider Active Start: July 05, 2024 End: July 05, 2024 Dr. Mylene Hoskins MD Referring Provider Active Start: July 05, 2024 End: July 05, 2024 Team Status: Active Member Role Status Dates Milagros Hunter LIGHT OIL OPERATOR, LIGHT OIL OPERATOR-C Primary Care Provider Activ e Team Status: Inactive Member Role Status Dates Milagros Hunter LIGHT OIL OPERATOR, LIGHT OIL OPERATOR-C Primary Care Provider Activ e Start: September 15, 2024 End: September 15, 2024 Dr. Mylene Hoskins MD Attending Provider Active Start: September 15, 2024 End: September 15, 2024 Dr. Mylene Hoskins MD Referring Provider Active Start: September 15, 2024 End: September 15, 2024 Team Status: Inactive Member Role Status Dates Milagros Hunter NP, LIGHT OIL OPERATOR-C Primary Care Provider Activ e Start: October 04, 2024 End: October 04, 2024 Milagros Hunter NP, LIGHT OIL OPERATOR-C Attending Provider Active Start: October 04, 2024 End: October 04, 2024 Milagros Hunter LIGHT OIL OPERATOR, LIGHT OIL OPERATOR-C Referring Provider Active Start: October 04, 2024 End: October 04, 2024 Source Comments (unrecognize d section and content) In the event this informatio n is protected by the Federal Confidentiality of Alcohol and Drug Abuse Patient Records regulations: The Federal rules restrict any use of the information to criminally investigate or prosecute any alcohol or drug abuse patient.[facility] the event this information is protected by the Federal Confidentiality of Alcohol and Drug Abuse Patient Records regulations: The Federal rules restrict any use of the information to criminally investigate or prosecute any alcohol or drug abuse patient.[facility] Reason for Visit (unrecogniz ed section and [...] the event of a Fluress shortage, administer [place]-Fluor 1 drop into both eyes as directed [...] BE BASED ON THE PRIMARY CLINICAL RECORDS. [facility] Channel[facility]. provides no warranty or guarantee of the accuracy or completeness of information in this document."
--- OUTSIDE RECORDS SUMMARY | 2024-10-15 11:09 | XMS RPT_ITS | CCD ---
Author Organization [facility] Care Team Providers Care Turn Down Worker Name Role Phone Nasir VALERIO, Matias Shin Unavailable Taj Birmingham Unavailable Unavailable Blake RN, Jamila Frost Unavailable Lu DAY, HARVEST FIELD TICKETER-C Geraldine Primary Care Provider [phone] Lu DAY, HARVEST FIELD TICKETER-C Geraldine Referring Provider Dr. Nilda Ulrich Attending [...] Dr. Nilda Ulrich Attending Provider Lu DAY HARVEST FIELD TICKETER-C Geraldine Referring Provider Dr. Tucker Hernandez Attending Provider [phone] Maria Victoria Campoverde Referring Provider Elsa DAY NP-C Milagros Primary Care Provider Elsa HARVEST FIELD TICKETER, HARVEST FIELD TICKETER-C Milagros Referring Provider Dr. Maria Victoria Campoverde Attending Provider Care Physician, No Primary Primary Care Provider Unavailable Care Physician, No Primary Referring Provider Un available Dr. Po Ford Referring Provider Roof HARVEST FIELD TICKETER, HARVEST FIELD TICKETER-C Po Powell Attending Provider ELSA PROPERTY CLERK-TOBACCO SPRAYER, MILAGROS A Primary Care Physi rubina JESSE MCDONALD, DR. POOLE Attending Unavaila ble ELSA TOBACCO SPRAYER, MILAGROS A Primary Care Unavail able Elsa HARVEST FIELD TICKETER, HARVEST FIELD TICKETER-C Milagros Primary Care Provider Elsa HARVEST FIELD TICKETER, HARVEST FIELD TICKETER-C Milagros Referring Provider [phone] Nancy HARVEST FIELD TICKETER, HARVEST FIELD TICKETER-C Jacquie Attending Provider Elsa HARVEST FIELD TICKETER, HARVEST FIELD TICKETER-C Milagros Primary Care Provider Elsa HARVEST FIELD TICKETER, HARVEST FIELD TICKETER-C Milagros Referring Provider [phone] Nancy HARVEST FIELD TICKETER, HARVEST FIELD TICKETER-C Jacquie Attending Provider Elsa HARVEST FIELD TICKETER, HARVEST FIELD TICKETER-C Milagros Primary Care Provider Dr. Nilda Cole [...] [phone] Tiff, Dr. Gaona Attending Provider Elsa HARVEST FIELD TICKETER, HARVEST FIELD TICKETER-C Milagros Referring Provider Dr. Jimenez Matthew Other Provider Dr. dAalberto Willingham Chi Referring Provider ALLAN, NORA C Primary Care Unavailable ALLAN, NORA C Attending Unavailable SALAZAR, KIYA J Consulting Unavailable ALLAN, NORA C Admitting Unavailable PROVIDER, UNKNOWN Consulting Unavailable MONAHAN, LORENZO C Attending Unavailable SALAZAR, KIYA J Consulting Unavailable SALAZAR, KIYA J Referring Unavailable MONAHAN, LORENZO C Admitting Unavailable MONAHAN, LORENZO C Primary Care Unavailable PROVIDER, UNKNOWN Consulting Unavailable ALLAN, NOAR C Primary Care Unavailable ALLAN NORA C Attending Unavailable MILAGROS HUNTER NP Consulting Unavailabl e ALLAN, NORA C Admitting Unavailable PROVIDER, UNKNOWN Consulting Unavailable Elsa HARVEST FIELD TICKETER, HARVEST FIELD TICKETER-C Milagros Primary Care Provider Elsa HARVEST FIELD TICKETER, HARVEST FIELD TICKETER-Micheal Linares Referring Provider Alice HARVEST FIELD TICKETER, HARVEST FIELD TICKETER-C Po Powell Attending Provider Salazar, Kiya J Unavailable lEsa TOBACCO SPRAYER, Milagros Angelo Primary Care Provider Katarina Wilks [...] Care Unavailable KATARINA WILKS Referring Unavailable Elsa TOBACCO SPRAYER, Milagros A Primary Care Provider ELSA PROPERTY CLERK-TOBACCO SPRAYER, MILAGROS Angelo Attending Un available ELSA PROPERTY CLERK-TOBACCO SPRAYER, MILAGROS A Primary Care Un available Elsa HARVEST FIELD TICKETER-C, Rochelle Primary Care Provider [phone] Elsa HARVEST FIELD TICKETER-C, Milagros Referring Provider [phone] Leilani Finch Attending Provider Leilani Finch Referring Provider Dr. Mylene Hoskins MD Attending Provider Dr. Mylene Hoskins MD Referring Provider Elsa HARVEST FIELD TICKETER-C, Rochelle Primary Care Provider Elsa HARVEST FIELD TICKETER-C, Milagros Referring Provider [phone] Leilani Finch Attending Provider Elsa HARVEST FIELD TICKETER-C, Milagros Attending Provider [phone] Roosevelt Zimmerman Attending Unavailable Elsa HARVEST FIELD TICKETER, [facility] Unavailabl e Elsa HARVEST FIELD TICKETER, Milagros Referring Unavailabl e Elsa HARVEST FIELD TICKETER, Milagros Attending Unavailabl e Elsa HARVEST FIELD TICKETER, Rochelle Primary Care Unavailabl e Elsa HARVEST FIELD TICKETER, Milagros Attending Unavailabl e Elsa HARVEST FIELD TICKETER, Rochelle Primary Care Unavailabl e Elsa HARVEST FIELD TICKETER, Milagros Referring Unavailabl e Parviz Mandujano Attending Unavailable Elsa HARVEST FIELD TICKETER, Rochelle Primary Care Unavailabl e Elsa HARVEST FIELD TICKETER, Milagros Referring Unavailabl e Leilani Gonzales Attending Unavailable Elsa HARVEST FIELD TICKETER, [facility] UnavailMylene Sierra Referring Unavailable Mylene Hoskins Attending Unavailable Elsa HARVEST FIELD TICKETER, [place]le Primary Care Unavailabl e Elsa HARVEST FIELD TICKETER, [place]le Referring Unavailabl Jimenez Rebolledo Attending Unavailable Jimenez Matthew Consulting Unavailable Elsa HARVEST FIELD TICKETER, [facility] Unavailabl e Atanasov, Leilani Attending Unavailable Elsa HARVEST FIELD TICKETER, Milagros Referring Unavailabl e Elsa HARVEST FIELD TICKETER, [facility] Unavailabl e Elsa HARVEST FIELD TICKETER, [place]le Referring Unavailabl e Jus HARVEST FIELD TICKETER, Inge Attending Unavailable Elsa HARVEST FIELD TICKETER, [facility] Unavailabl e Atanasov, Leilani Referring Unavailable Atanasmax, Leilani Attending Unavailable Elsa HARVEST FIELD TICKETER, [facility] Unavailabl e Elsa HARVEST FIELD TICKETER, [place]le Referring Unavailabl e Friend, Jimenez Attending Unavailable Elsa HARVEST FIELD TICKETER, [facility] Unavailabl e Basali, Ayman Referring Unavailable Basali, Mylene Attending Unavailable Elsa HARVEST FIELD TICKETER, [facility] Unavailabl e Elsa HARVEST FIELD TICKETER, [place]le Referring Unavailabl e Atanasov, Leilani Attending Unavailable Elsa HARVEST FIELD TICKETER, [facility] Unavailabl e Basali, Ayman Referring Unavailable Basali, Mylene Attending Unavailable Elsa HARVEST FIELD TICKETER, [facility] Unavailabl e Elsa HARVEST FIELD TICKETER, Milagros Attending Unavailabl e Elsa HARVEST FIELD TICKETER, [facility] Unavailabl e Elsa HARVEST FIELD TICKETER, Rochelle Referring Unavailabl e Allergies Allergy Classification Reported Allergen(s) Allergy Type Date of Onset Reaction(s) Facility Penicillins (antibiotic) (1 source) Penicillins Drug Allergy 4 Hives, Rash, Swelling [facility] (4 sources) amoxicillin drug allergy 4 [facility] Work Phone: (18 sources) Amoxicillin; Translations: [amoxicillin trihydrate] Drug Allergy 2 [facility] (2 sources) Penicillin; Translations: [penicillins] Drug Allergy Weal (disorder) [facility] (9 sources) Penicillins; Translations: [PENICILLINS] Allergy to substance 4 [facility] (1 source) Penicillins Drug allergy (disorder) [facility] Repository (1 source) 06/10/17(+) CDIFF; Translations: [06/10/17(+) CDIFF] Propensity to adverse reactions (disorder) [facility] Repository (1 source) Penicillins Drug Allergy 4 Hives, Rash, Swelling [facility] (3 sources) Trimax; Translations: [TRIMAX] Drug Allergy 3 Rash [facility] (2 sources) ALLERGIES NOT ON FILE; Translations: [ALLERGIES NOT ON FILE] Propensity to adverse reactions (disorder) [facility] 2 Repository (1 source) Penicillins Drug allergy (disorder) 4 [facility] Repository Medications Current Medications Medication Drug Class(es) [...] (2 sources) Non-Standardized Chemical Allergen Start: 05-26-2015 [id number] (REFRESH OPTIVE ADVANCED, PF,) 0.5-1-0.5 % dpet [...] TABS One tablet by mouth daily CHOLECALCIFEROL [id number] Michelle Pickering RN Start: 01-19-2014 take 1 tablet by олег th once daily VITAMIN D 2000 UNIT TABS One tablet by mouth daily CHOLECALCIFEROL [id number] Matias Best MD Start: 11-29-2013 End: 11-10-2018 [...] RESTASIS 0.05 % EMUL as directed CYCLOSPORINE [id number] Matias Best MD Start: 10-15-2015 RESTASIS 0.05 % EMUL as directed CYCLOSPORINE [id number] Matias Best MD Comment on above: Use [...] One tablet by mouth daily FOLIC ACID 35876790278 Michelle Pickering RN Start: 11-29-2013 End: 11-10-2018 [...] food/meal, # 30 tab(s), 0 Refill(s), Pharmacy: [facility], Right knee pain, 155, cm, [...] by mouth twice daily TOFACITINIB CITRATE TABS [id number] Matias Best MD Start: 01-19-2014 take 1 tablet by олег th once daily XELJANZ TABS One tablet by mouth daily TOFACITINIB CITRATE TABS [id number] Michelle Pickering RN Start: 11-29-2013 End: 11-10-2018 [...] 5-325 MG TABS As ne eded OXYCODONE-ACETAMINOPHEN 02023967764 Matias Best MD Start: 01-19-2014 End: 01-26-2014 PERCOCET 5-325 MG TABS As ne eded OXYCODONE-ACETAMINOPHEN 59205501519 Matias Best MD Start: 01-19-2014 PERCOCET 5-325 MG TABS As needed OXYCODONE-ACETAMINOPHEN 36973815658 Michelle Pickering RN Start: 11-29-2013 End: 11-10-2018 [...] BID, # 900 mL, 5 Refill(s), Pharmacy: [id number], Dry mouth, 155, cm, [...] One tablet by mouth daily CALCIUM CARBONATE [id number] Michelle Pickering RN Start: 01-19-2014 take 1 tablet by олег th once daily CALCIUM 600 600 MG TABS One tablet by mouth daily CALCIUM CARBONATE 87999620652 Michelle Pickering RN calcium citrate / vitamin D (4 sources) Start: 01-19-2014 take 1 tablet by mouth once daily CALCIUM + D 315-200 MG-UNIT TABS One tablet by mouth daily CALCIUM CITRATE-VITAMIN D 14047253280 Matias Best MD celecoxib 200 mg oral [...] tablet by mouth every other day CELECOXIB 87097095508 Matias Best MD Start: 11-29-2013 End: 11-10-2018 take 1 capsule by mouth once daily Celecoxib 200 MG capsule Discontinued 200 mg PO DAILY November 29, 2013 12:00am November 10, 2018 2:17pm take 1 capsule by mo [facility] twice daily celecoxib (CELEBREX) 200 mg capsule Take 200 mg by mouth twice daily. 0 Active Comment on above: Take 200 mg by mouth twice daily. cyclobenzaprine hydrochloride 10 mg oral tablet (8 sources) Muscle Relaxant Start: End: CYCLOBENZAPRINE HCL 10 MG TABS As needed CYCLOBENZAPRINE HCL 49182234920 Michelle Pickering RN dexlansoprazole 60 mg delayed release oral capsule (6 sources) Proton Pump Inhibitor Start: 017 take 1 tablet by mouth once daily DEXILANT 60 MG CPDR One tablet by mouth daily DEXLANSOPRAZOLE 66144786432 Matias Best MD Comment on above: Take [...] tablet by mouth daily FLAXSEED (LINSEED) CAPS [id number] Matias Best MD fluticasone propionate 0.05 mg/actuat metered dose nasal spray (16 sources) Corticosteroid Start: 015 End: FLUTICASONE PROPIONATE 50 MCG/ACT SUSP (0.05mg/inh) 1 spray each nostril once a day FLUTICASONE PROPIONATE 61770646085 Matias Best MD Start: 11-06-2014 End: 05-01-2015 take 0.05 mg by inhalation once daily FLUTICASONE PROPIONATE 50 MCG/ACT SUSP (0.05mg/inh) 1 spray each nostril once a day FLUTICASONE PROPIONATE 25636974330 Matias Best MD Start: 01-19-2014 End: 01-26-2014 FLONASE 50 MCG/ACT SUSP Take as directed FLUTICASONE PROPIONATE 14717954141 Michelle Pickering RN Start: 01-19-2014 FLONASE 50 MCG /ACT SUSP Take as directed FLUTICASONE PROPIONATE 93205410038 Michelle Pickering RN Start: 01-19-2014 End: 01-26-2014 FLONASE 50 MCG/ACT SUSP Take as directed FLUTICASONE PROPIONATE 01721668845 Matias Best MD ibandronic acid 150 mg oral tablet (6 sources) Bisphosphonate Start: 01-19-2014 take 1 tablet by mouth every month BONIVA 150 MG TABS One tablet by mouth monthly IBANDRONATE SODIUM 25694600900 Michelle Pickering RN Comment on above: Take [...] 0.5 % SUSP as directed LOTEPREDNOL ETABONATE 68699591514 Matias Best MD Start: 10-15-2015 End: 10-20-2016 LOTEMAX 0.5 % SUSP as direct ed LOTEPREDNOL ETABONATE 89963823359 Matias Best MD Start: 10-15-2015 LOTEMAX 0.5 % SUSP as directed LOTEPREDNOL ETABONATE 76730300578 Matias Best MD METHOTREXATE SODIUM SOLN (20 [...] 1.4-0.6 % SOLN as directed POLYVINYL ALCOHOL-POVIDONE 95688837178 Matias Best MD Start: 10-15-2015 REFRESH 1.4-0. 6 % SOLN as directed POLYVINYL ALCOHOL-POVIDONE 07961357625 Matias Best MD raNITIdine 150 mg oral [...] tablet by mouth at bedtime. 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 Reading Location: [place] [address] CC: HARVEST FIELD TICKETER-C Milagros Hunter ~ Condenser Tube Tender: Signed [facility] SCRN MAMM (CAD)W/GABRIEL BILATo n 10-04-2024 SCRN MAMM (CAD)W/GABRIEL BILAT [facility] Services [address] [place] [id number] SCRN MAMM (CAD)W/GABRIEL BILAT MR#: [id number] Acct: [id number] Name: HUYEN VALERIO I Rep #: [id number] : 1940 F 84 From: Tanner allan MD PCP: YENIFER Barrera Status: REG CLI Study: SCRN MAMM (CAD)W/GABRIEL BILAT Date of Exam: 09/09 12/02 Exam# [id number] Ordering Dr: Milagros Hunter NP HARVEST FIELD TICKETER-C EXAM: SCRN MAMM (CAD)W/GABRIEL BILAT DATE: 10/04/2024 [...] be mailed to the patient. Reading Location: [place] [address] CC: HARVEST FIELD TICKETER-C Milagros Hunter Condenser Tube Tender: Signed Normal [facility] Cerv Spine 2 or 3 Viewson Cerv Spine [address] [facility] [address] [place] [address] Cerv Spine 2 or 3 Views MR#: [id number] Acct: [id number] Name: HUYEN VALERIO I Rep #: [id number] : 1940 F 84 From: Rian Manning MD PCP: Milagros Hunter HARVEST FIELD TICKETER-C Status: REG CLI Study: Cerv Spine 2 or 3 Views Date of Exam: 09/15/24 Exam# [id number] Ordering Dr: Mylene Hoskins MD EXAM: XR [...] the cervical spine as described. Reading Location: [facility] CC: YENIFER Hunter; Dr. Mylene Hoskins MD Condenser Tube Tender: Signed Normal [facility] CBC (INCLUDES DIFF/PLT)on Basophils (Bld) [#/Vol] 0.061 10*3/uL Normal 0-200 [facility] Comment on above: Performed By: #### 6 399, 86828 #### [facility] of [address], [address] [place] [address] Disc Recordist: Feliciano Corley MD Basophils/100 WBC (Bld) 1.1 % Normal [facility] Comment on above: Performed By: #### 6 399, 05247 #### [facility] of [place] [address] Disc Recordist: Feliciano Corley MD Eosinophils (Bld) [#/Vol] 0.072 10*3/uL Normal 15-500 [facility] Comment on above: Performed By: #### 6 399, 94394 #### [facility] of [address], [address] [place] [address] Disc Recordist: Feliciano Corley MD Eosinophils/100 WBC (Bld) 1.3 % Normal [facility] Comment on above: Performed By: #### 6 399, 84018 #### [facility] of [place] [address] Disc Recordist: Feliciano Corley MD Erythrocyte distribution width (RBC) [Ratio] 13.8 % Normal 11.0-15.0 [facility] Comment on above: Performed By: #### 6 399, 13954 #### [facility] of [place] [address] Disc Recordist: Feliciano Corley MD Hematocrit (Bld) [Volume fraction] 39.0 % Normal 35.0-45.0 [facility] Comment on above: Performed By: #### 6 399, 82781 #### [facility] of [place] [address] Disc Recordist: Feliciano Corley MD Hemoglobin (Bld) [Mass/Vol] 12.7 g/dL Normal 11.7-15.5 [facility] Comment on above: Performed By: #### 6 399, 72068 #### [facility] of [place] [address] Disc Recordist: Feliciano Corley MD Lymphocytes (Bld) [#/Vol] 0.974 10*3/uL Normal 850-3900 [facility] Comment on above: Performed By: #### 6 399, 39375 #### [facility] of [place] [address] Disc Recordist: Feliciano Corley MD Lymphocytes/100 WBC (Bld) 17.7 % Normal [facility] Comment on above: Performed By: #### 6 399, 67741 #### [facility] [place] [address] Disc Recordist: Feliciano Corley MD MCH (RBC) [Entitic mass] 31.1 pg Normal 27.0-33.0 [facility] Comment on above: Performed By: #### 6 399, 46698 #### [facility] of [place] [address] Disc Recordist: Feliciano Corley MD MCHC (RBC) [Mass/Vol] 32.6 [...] clinical condition. Performed By: #### 6 399, 13354 #### [facility] of [place] [address] Disc Recordist: Feliciano Corley MD MCV (RBC) [Entitic vol] 95.6 fL Normal 80.0-100.0 [facility] Comment on above: Performed By: #### 6 399, 23198 #### [facility] of [place] [address] Disc Recordist: Feliciano Corley MD Monocytes (Bld) [#/Vol] 0.6 10*3/uL Normal 200-950 [facility] Comment on above: Performed By: #### 6 399, 54181 #### [facility] of [place] [address] Disc Recordist: Feliciano Corley MD Monocytes/100 WBC (Bld) 10.9 % Normal [facility] Comment on above: Performed By: #### 6 399, 55956 #### [facility] of [place] [address] Disc Recordist: Feliciano Corley MD Neutrophils (Bld) [#/Vol] 3.795 10*3/uL Normal 0092-2175 [facility] Comment on above: Performed By: #### 6 399, 61665 #### [facility] of [place] [address] Disc Recordist: eFliciano Corley MD Neutrophils/100 WBC (Bld) 69 % Normal [facility] Comment on above: Performed By: #### 6 399, 02799 #### [facility] of [place] [address] Disc Recordist: Feliciano Corley MD Platelet mean volume (Bld) [Entitic vol] 12.3 fL Normal 7.5-12.5 [facility] Comment on above: Performed By: #### 6 399, 94512 #### [facility] of [place] [address] Disc Recordist: Feliciano Corley MD Platelets (Bld) [#/Vol] 327 10*3/uL Normal 140-400 [facility] Comment on above: Performed By: #### 6 399, 33911 #### [facility] of [place] [address] Disc Recordist: Feliciano Corley MD RBC (Bld) [#/Vol] 4.08 10*6/uL Normal 3.80-5.10 [facility] Comment on above: Performed By: #### 6 399, 41151 #### [facility] of [place] [address] Disc Recordist: Feliciano Corley MD WBC (Bld) [#/Vol] 5.5 10*3/uL Normal 3.8-10.8 [facility] Comment on above: Performed By: #### 6 399, 13418 #### [facility] of [place] [address] Disc Recordist: Feliciano Corley MD [facility] 08-20-2024 Albumin [Mass/Vol] 4.5 g/dL Normal 3.6-5.1 [facility] Comment on above: Performed By: #### 6 399, 36260 #### [facility] of [place] [address] Disc Recordist: Feliciano Corley MD Albumin/Globulin [Mass ratio] 2.4 {ratio} Normal 1.0-2.5 [facility] Comment on above: Performed By: #### 6 399, 29963 #### [facility] [place] [address] Disc Recordist: Feliciano Corley MD ALP [Catalytic activity/Vol] 76 U/L Normal 37-153 [facility] Comment on above: Performed By: #### 6 399, 47663 #### [facility] of [place] [address] Disc Recordist: Feliciano Corley MD ALT [Catalytic activity/Vol] 13 U/L Normal 6-29 [facility] Comment on above: Performed By: #### 6 399, 10856 #### [facility] of [place] [address] Disc Recordist: Feliciano Corley MD AST [Catalytic activity/Vol] 36 U/L High 10-35 [facility] Comment on above: Performed By: #### 6 399, 73119 #### [facility] of [place] [address] [place] [address] Disc Recordist: Feliciano Corley MD Bilirubin [Mass/Vol] 0.7 mg/dL Normal 0.2-1.2 [facility] Comment on above: Performed By: #### 6 399, 94351 #### [facility] [place] [address] Disc Recordist: Feliciano Corley MD BUN/CREATININE RATIO SEE NOTE: Normal 6-22 [facility] Comment on above: Result Comment: Not Reported: BUN and Creatinine are within reference range. Performed By: #### 6 399, 00964 #### [facility] [place] [address] Disc Recordist: Feliciano Corley MD Calcium [Mass/Vol] 9.4 mg/dL Normal 8.6-10.4 [facility] Comment on above: Performed By: #### 6 399, 88309 #### [facility] [place] [address] Disc Recordist: Feliciano Corley MD Chloride [Moles/Vol] 104 mmol/L Normal 98-110 [facility] Comment on above: Performed By: #### 6 399, 68105 #### [facility] [place] [address] Disc Recordist: Feliciano Corley MD CO2 [Moles/Vol] 29 mmol/L Normal 20-32 [facility] Comment on above: Performed By: #### 6 399, 63857 #### [facility] [place] [address] Disc Recordist: Feliciano Corley MD Creatinine [Mass/Vol] 0.83 mg/dL Normal 0.60-0.[address] [facility] Comment on above: Performed By: #### 6 399, 06936 #### [facility] [place] [address] Disc Recordist: Feliciano Corley MD GFR/1.73 sq M.predicted among non-blacks MDRD (S/P/Bld) [Vol rate/Area] 69 mL/min/{1.73_m2} Normal > OR = 60 [facility] Comment on above: Performed By: #### 6 399, 41475 #### [facility] [place] [address] Disc Recordist: Feliciano Corley MD Globulin (S) [Mass/Vol] 1.9 g/dL Normal 1.9-3.7 [facility] Comment on above: Performed By: #### 6 399, 91738 #### [facility] [place] [address] Disc Recordist: Feliciano Corley MD Glucose [Mass/Vol] 82 mg/dL Normal 65-99 [facility] Comment on above: Result Comment: Fasting reference interval Performed By: #### 6 399, 27281 #### [facility] [place] [address] Disc Recordist: Feliciano Corley MD Potassium [Moles/Vol] 4.6 mmol/L Normal 3.5-5.3 [facility] Comment on above: Performed By: #### 6 399, 72898 #### [facility] [place] [address] Disc Recordist: Feliciano Corley MD Protein [Mass/Vol] 6.4 g/dL Normal 6.1-8.1 [facility] Comment on above: Performed By: #### 6 399, 52191 #### [facility] [place] [address] Disc Recordist: Feliciano Corley MD Sodium [Moles/Vol] 141 mmol/L Normal 135-146 [facility] Comment on above: Performed By: #### 6 399, 73468 #### [facility] [place] [address] Disc Recordist: Feliciano Corley MD Urea nitrogen [Mass/Vol] 15 mg/dL Normal 7-25 [facility] Comment on above: Performed By: #### 6 399, 83683 #### [facility] [address], [address] [place] [address] Disc Recordist: Feliciano Corley MD Thoracic Spine 3 Viewson Thoracic Spine [address] [facility] Services [address] [place] [address] Thoracic Spine 3 Views MR#: [id number] Acct: [id number] Name: HUYEN VALERIO I Rep #: [id number] : 1940 F 83 From: Tanenr allan MD PCP: Milagros Hunter, HARVEST FIELD TICKETER-C Status: REG CLI Study: Thoracic Spine 3 Views Date of Exam: 07/05/24 Exam# [id number] Ordering Dr: Mylene Hoskins MD PROCEDURE: THORACIC [...] the thoracic vertebrae. Increased kyphosis. Reading Location: [id number] CC: HARVEST FIELD TICKETER-C Milagros Hunter; Dr. Mylene Hoskins MD Condenser Tube Tender: Signed Normal [facility] Gastroenterology Visit Repor ton 06-28-2024 Gastroenterology Visit Report [facility] [address] [place] [address] OFFICE VISIT Date of Service: 06/28/24 MR#: [id number] Acct: [id number] Name: HUYEN VALERIO I I Rep #: [id number] : 1940 Provider: LESLIE Aguilar Age/Sex: 83/F [place] Status: Signed Intake Vital Signs 03/15/24 [...] Appearance: average body habitus and well nourished [facility] Head: normal to inspection Ears: hearing grossly normal bilaterally Nose: external nose normal Face and sinus: normal f (more content not included)... Normal [facility] CBC W Auto Differential pane l (Bld)on 05-23-2024 Basophils (Bld) [#/Vol] 0.08 x10*3/uL Normal 0.00-0.10 [facility] Comment on above: Performed By: #### 5 7021-8 #### MEMBRENO KARRIE ([id number]) [facility] ([facility]) [address] [place] [address] Basophils/100 WBC (Bld) 1.1 % Normal 0.0-2.0 [facility] Comment on above: Performed By: #### 5 7021-8 #### HASEEB YOON ([id number]) [facility] ([facility]) [address] [place] [address] 60719 Eosinophils (Bld) [#/Vol] 0.09 x10*3/uL Normal 0.00-0.40 [facility] Comment on above: Performed By: #### 7021-8 #### HASEEB YOON ([id number]) [facility] ([facility]) [address] [place] [address] 88936 Eosinophils/100 WBC (Bld) 1.3 % Normal 0.0-6.0 [facility] Comment on above: Performed By: #### 7021-8 #### HASEEB YOON ([id number]) [facility] ([facility]) [address] [place] [address] 65676 Erythrocyte distribution width (RBC) [Ratio] 15.4 % High 11.5-14.5 [facility] Comment on above: Performed By: #### 7021-8 #### HASEEB YOON ([id number]) [facility] ([facility]) [address] [place] [address] 36904 Hematocrit (Bld) [Volume fraction] 44.3 % Normal 36.0-46.0 [facility] Comment on above: Performed By: #### 5 7021-8 #### HASEEB YOON ([id number]) [facility] ([facility]) [address] [place] [address] 95206 Hemoglobin (Bld) [Mass/Vol] 13.3 g/dL Normal 12.0-16.0 [facility] Comment on above: Performed By: #### 5 7021-8 #### HASEEB YOON ([id number]) [facility] ([facility]) [address] [place] [address] 16591 Immature granulocytes (Bld) [#/Vol] 0.02 x10*3/uL Normal 0.00-0.50 [facility] Comment on above: Performed By: #### 5 7021-8 #### HASEEB YOON ([id number]) [facility] ([facility]) [address] [place] [address] 78562 Immature granulocytes/100 WBC (Bld) 0.3 % Normal 0.0-0.9 [facility] Comment on above: Result Comment: Paty ture Granulocyte Count (IG) includes promyelocytes, myelocytes and metamyelocytes but does not include bands. Percent differential counts (%) should be interpreted in the context of the absolute cell counts (cells/UL). Performed By: #### 5 7021-8 #### HASEEB YOON ([id number]) [facility] ([facility]) [address] [place] [address] 11798 Lymphocytes (Bld) [#/Vol] 1.05 x10*3/uL Normal 0.80-3.00 [facility] Comment on above: Performed By: #### 5 7021-8 #### HASEEB YOON ([id number]) [facility] ([facility]) [address] [place] [address] 61497 Lymphocytes/100 WBC (Bld) 14.8 % Normal 13.0-44.0 [facility] Comment on above: Performed By: #### 5 7021-8 #### HASEEB YOON ([id number]) [facility] ([facility]) [address] [place] [address] 77483 MCH (RBC) [Entitic mass] 30.4 pg Normal 26.0-34.0 [facility] Comment on above: Performed By: #### 5 7021-8 #### HASEEB YOON ([id number]) [facility] ([facility]) [address] [place] [address] 86767 MCHC (RBC) [Mass/Vol] 30.0 g/dL Low 32.0-36.0 [facility] Comment on above: Performed By: #### 5 7021-8 #### HASEEB YOON ([id number]) [facility] ([facility]) [address] [place] [address] 04813 MCV (RBC) [Entitic vol] 101 fL High 80-100 [facility] Comment on above: Performed By: #### 5 7021-8 #### HASEEB YOON ([id number]) [facility] ([facility]) [address] [place] [address] 07930 Monocytes (Bld) [#/Vol] 0.87 x10*3/uL High 0.05-0.80 [facility] Comment on above: Performed By: #### 5 7021-8 #### HASEEB YOON ([id number]) [facility] ([facility]) [address] [place] [address] 27306 Monocytes/100 WBC (Bld) 12.3 % Normal 2.0-10.0 [facility] Comment on above: Performed By: #### 5 7021-8 #### HASEEB YOON ([id number]) [facility] ([facility]) [address] [place] [address] 78022 Neutrophils (Bld) [#/Vol] 4.98 x10*3/uL Normal 1.60-5.50 [facility] Comment on above: Result Comment: Perc ent differential counts (%) should be interpreted in the context of the absolute cell counts (cells/uL). Performed By: #### 5 7021-8 #### HASEEB YOON ([id number]) [facility] ([facility]) [address] [place] [address] 04599 Neutrophils/100 WBC (Bld) 70.2 % Normal 40.0-80.0 [facility] Comment on above: Performed By: #### 5 7021-8 #### HASEEB YOON ([id number]) [facility] ([facility]) [address] [place] [address] 64111 Nucleated RBC/100 WBC (Bld) [Ratio] 0.0 /100 WBCs Normal 0.0-0.0 [facility] Comment on above: Performed By: #### 5 7021-8 #### HASEEB YOON ([id number]) [facility] ([facility]) [address] [place] [address] 32951 Platelets (Bld) [#/Vol] 357 x10*3/uL Normal 150-450 [facility] Comment on above: Performed By: #### 5 7021-8 #### HASEEB YOON ([id number]) [facility] ([facility]) [address] [place] [address] 33205 RBC (Bld) [#/Vol] 4.38 x10*6/uL Normal 4.00-5.20 [facility] Comment on above: Performed By: #### 5 7021-8 #### HASEEB YOON ([id number]) [facility] ([facility]) [address] [place] [address] 80960 WBC (Bld) [#/Vol] 7.1 x10*3/uL Normal 4.4-11.3 [facility] Comment on above: Performed By: #### 5 7021-8 #### HASEEB YOON ([id number]) [facility] ([facility]) [address] [place] [address] 28434 Comprehensive metabolic 2000 panelon 05-23-2024 Albumin BCP dye [Mass/Vol] 4.2 g/dL Normal 3.4-5.0 [facility] Comment on above: Performed By: #### 2 4323-8 #### HASEEB YOON ([id number]) [facility] ([facility]) [address] [place] [address] 42496 ALP [Catalytic activity/Vol] 76 U/L Normal 33-136 [facility] Comment on above: Performed By: #### 2 4323-8 #### HASEEB YOON ([id number]) [facility] ([facility]) [address] [place] [address] 85175 ALT With P-5'-P [Catalytic activity/Vol] 10 U/L Normal 7-45 [facility] Comment on above: Result Comment: Bev ents treated with Sulfasalazine may generate falsely decreased results for ALT. Performed By: #### 2 4323-8 #### HASEEB YOON ([id number]) [facility] ([facility]) [address] [place] [address] 37596 Anion gap [Moles/Vol] 8 mmol/L Low 10-20 [facility] Comment on above: Performed By: #### 2 4323-8 #### HASEEB YOON ([id number]) [facility] ([facility]) [address] [place] [address] AST With P-5'-P [Catalytic activity/Vol] 31 U/L Normal 9-39 [facility] Comment on above: Performed By: #### 2 432-8 #### HASEEB YOON ([id number]) [facility] ([facility]) [address] [place] [address] Bilirubin [Mass/Vol] 0.7 mg/dL Normal 0.0-1.2 [facility] Comment on above: Performed By: #### 2 4322-8 #### HASEEB YOON ([id number]) [facility] ([facility]) [address] [place] [address] 60742 Calcium [Mass/Vol] 9.8 mg/dL Normal 8.6-10.3 [facility] Comment on above: Performed By: #### 2 4322-8 #### HASEEB YOON ([id number]) [facility] ([facility]) [address] [place] [address] Chloride [Moles/Vol] 105 mmol/L Normal 98-107 [facility] Comment on above: Performed By: #### 2 4322-8 #### HASEEB YOON ([id number]) [facility] ([facility]) [address] [place] [address] CO2 [Moles/Vol] 33 mmol/L High 21-32 [facility] Comment on above: Performed By: #### 2 4322-8 #### HASEEB YOON ([id number]) [facility] ([facility]) [address] [place] [address] Creatinine [Mass/Vol] 0.79 mg/dL Normal 0.50-1.05 [facility] Comment on above: Performed By: #### 2 4322-8 #### HASEEB YOON ([id number]) [facility] ([facility]) [address] [place] [address] Glomerular filtration rate/1.73 sq M.predicted 73 mL/min/1.73m*2 Normal >60 [facility] Comment on above: Result Comment: Calc ulations of estimated GFR are performed using the 2020 CKD-EPI Study Refit equation without the race variable for the IDMS-Traceable creatinine methods. https://jasn.asnjournals.org/content//ASN.393634 0251 Performed By: #### 2 4323-8 #### HASEEB YOON ([id number]) [facility] ([facility]) [facility] [place] [address] Glucose [Mass/Vol] 104 mg/dL High 74-99 [facility] Comment on above: Performed By: #### 2 4323-8 #### HASEEB YOON ([id number]) [facility] ([facility]) [address] [place] [address] 13584 Potassium [Moles/Vol] 4.2 mmol/L Normal 3.5-5.3 [facility] Comment on above: Performed By: #### 2 4323-8 #### HASEEB YOON ([id number]) [facility] ([facility]) [address] [place] [address] 68824 Protein [Mass/Vol] 6.1 g/dL Low 6.4-8.2 [facility] Comment on above: Performed By: #### 2 4323-8 #### HASEEB YOON ([id number]) [facility] ([facility]) [address] [place] [address] 49873 Sodium [Moles/Vol] 142 mmol/L Normal 136-145 [facility] Comment on above: Performed By: #### 2 4323-8 #### HASEEB YOON ([id number]) [facility] ([facility]) [address] [place] [address] 60921 Urea nitrogen [Mass/Vol] 15 mg/dL Normal 6-23 [facility] Comment on above: Performed By: #### 2 4323-8 #### HASEEB YOON ([id number]) [facility] ([facility]) [address] [place] [address] 08550 Gastric Emptying Study Gastric Emptying Study [facility] [address] [place] [address] Gastric Emptying Study MR#: [id number] Acct: [id number] Name: HUYEN VALERIO I Rep #: [id number] : 1940 F 83 From: Marisol Arriaga PCP: Milagros Hunter, [employer] T[employer]ER-C Status: REG CLI Study: Gastric Emptying Study Date of Exam: 04/19/24 Exam# [id number] Ordering Dr: Leilani Gonzales [id number] CLINICAL: 83-year-old female with history of chronic [...] Hernandez DO at 11:35 EST , CC: [employer]-C Milagros Hunter; LESLIE Aguilar 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 [address] OFFICE VISIT Date of Service: 03/29/24 MR#: [id number] Acct: [id number] Name: HUYEN VALERIO I Rep #: [id number] : 1940 Provider: LESLIE Aguilar Age/Sex: 83/F [place] [facility] Status: Signed Intake Vital Signs 03/08/24 11:18 [...] she hasn't seen any improvement in sx. [facility] Medical History History of fall Zenkers [...] presents to the office today for f/u. 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 Normal [facility] CBC W Auto Differential pane l (Bld)on 03-21-2024 Basophils (Bld) [#/Vol] 0.05 x10*3/uL Normal 0.00-0.10 [facility] Comment on above: Performed By: #### 5 7021-8 #### HASEEB YOON ([id number]) [facility] ([facility]) [address] [place] [address] 21199 Basophils/100 WBC (Bld) 0.7 % Normal 0.0-2.0 [facility] Comment on above: Performed By: #### 5 7021-8 #### HASEEB YOON ([id number]) [facility] ([facility]) [address] [place] [address] 73730 Eosinophils (Bld) [#/Vol] 0.11 x10*3/uL Normal 0.00-0.40 [facility] Comment on above: Performed By: #### 5 7021-8 #### HASEEB YOON ([id number]) [facility] ([facility]) [address] [place] [address] 01454 Eosinophils/100 WBC (Bld) 1.5 % Normal 0.0-6.0 [facility] Comment on above: Performed By: #### 5 7021-8 #### HASEEB YOON ([id number]) [facility] ([facility]) [address] [place] [address] 25565 Erythrocyte distribution width (RBC) [Ratio] 16.2 % High 11.5-14.5 [facility] Comment on above: Performed By: #### 5 7021-8 #### HASEEB YOON ([id number]) [facility] ([facility]) [address] [place] [address] 09132 Hematocrit (Bld) [Volume fraction] 39.3 % Normal 36.0-46.0 [facility] Comment on above: Performed By: #### 5 7021-8 #### HASEEB YOON ([id number]) [facility] ([facility]) [address] [place] [address] 81365 Hemoglobin (Bld) [Mass/Vol] 12.1 g/dL Normal 12.0-16.0 [facility] Comment on above: Performed By: #### 5 7021-8 #### HASEEB YOON ([id number]) [facility] ([facility]) [address] [place] [address] 55994 Immature granulocytes (Bld) [#/Vol] 0.06 x10*3/uL Normal 0.00-0.50 [facility] Comment on above: Performed By: #### 5 7021-8 #### HASEEB YOON ([id number]) [facility] ([facility]) [address] [place] [address] 30035 Immature granulocytes/100 WBC (Bld) 0.8 % Normal 0.0-0.9 [facility] Comment on above: Result Comment: Paty ture Granulocyte Count (IG) includes promyelocytes, myelocytes and metamyelocytes but does not include bands. Percent differential counts (%) should be interpreted in the context of the absolute cell counts (cells/UL). Performed By: #### 5 7021-8 #### HASEEB YOON ([id number]) [facility] ([facility]) [address] [place] [address] 91067 Lymphocytes (Bld) [#/Vol] 0.59 x10*3/uL Low 0.80-3.00 [facility] Comment on above: Performed By: #### 5 7021-8 #### HASEEB YOON ([id number]) [facility] ([facility]) [address] [place] [address] 66168 Lymphocytes/100 WBC (Bld) 8.0 % Normal 13.0-44.0 [facility] Comment on above: Performed By: #### 5 7021-8 #### HASEEB YOON ([id number]) [facility] ([facility]) [address] [place] [address] 40368 MCH (RBC) [Entitic mass] 30.9 pg Normal 26.0-34.0 [facility] Comment on above: Performed By: #### 5 7021-8 #### HASEEB YOON ([id number]) [facility] ([facility]) [address] [place] [address] 86818 MCHC (RBC) [Mass/Vol] 30.8 g/dL Low 32.0-36.0 [facility] Comment on above: Performed By: #### 5 7021-8 #### HASEEB YOON ([id number]) [facility] ([facility]) [address] [place] [address] 04598 MCV (RBC) [Entitic vol] 100 fL Normal 80-100 [facility] Comment on above: Performed By: #### 5 7021-8 #### HASEEB YOON ([id number]) [facility] ([facility]) [address] [place] [address] 25427 Monocytes (Bld) [#/Vol] 0.92 x10*3/uL High 0.05-0.80 [facility] Comment on above: Performed By: #### 5 7021-8 #### HASEEB YOON ([id number]) [facility] ([facility]) [address] [place] [address] 24985 Monocytes/100 WBC (Bld) 12.5 % Normal 2.0-10.0 [facility] Comment on above: Performed By: #### 5 7021-8 #### HASEEB YOON ([id number]) [facility] ([facility]) [address] [place] [address] 17448 Neutrophils (Bld) [#/Vol] 5.63 x10*3/uL High 1.60-5.50 [facility] Comment on above: Result Comment: Perc ent differential counts (%) should be interpreted in the context of the absolute cell counts (cells/uL). Performed By: #### 5 7021-8 #### HASEEB YOON ([id number]) [facility] ([facility]) [address] [place] [address] 52135 Neutrophils/100 WBC (Bld) 76.5 % Normal 40.0-80.0 [facility] Comment on above: Performed By: #### 5 7021-8 #### HASEEB YOON ([id number]) [facility] ([facility]) [address] [place] [address] 43137 Nucleated RBC/100 WBC (Bld) [Ratio] 0.0 /100 WBCs Normal 0.0-0.0 [facility] Comment on above: Performed By: #### 5 7021-8 #### HASEEB YOON ([id number]) [facility] ([facility]) [address] [place] [address] 84221 Platelets (Bld) [#/Vol] 400 x10*3/uL Normal 150-450 [facility] Comment on above: Performed By: #### 5 7021-8 #### HASEEB YOON ([id number]) [facility] ([facility]) [address] [place] [address] 68858 RBC (Bld) [#/Vol] 3.92 x10*6/uL Low 4.00-5.20 [facility] Comment on above: Performed By: #### 5 7021-8 #### HASEEB YOON ([id number]) [facility] ([facility]) [address] [place] [address] 68590 WBC (Bld) [#/Vol] 7.4 x10*3/uL Normal 4.4-11.3 [facility] Comment on above: Performed By: #### 5 7021-8 #### HASEEB YOON ([id number]) [facility] ([facility]) [address] [place] [address] 08219 Comprehensive metabolic 2000 panelon 03-21-2024 Albumin BCP dye [Mass/Vol] 4.0 g/dL Normal 3.4-5.0 [facility] Comment on above: Performed By: #### 2 4323-8 #### HASEEB YOON ([id number]) [facility] ([facility]) [address] [place] [address] 94782 ALP [Catalytic activity/Vol] 140 U/L High 33-136 [facility] Comment on above: Performed By: #### 2 432-8 #### HASEEB YOON ([id number]) [facility] ([facility]) [address] [place] [address] ALT With P-5'-P [Catalytic activity/Vol] 12 U/L Normal 7-45 [facility] Comment on above: Result Comment: Bev ents treated with Sulfasalazine may generate falsely decreased results for ALT. Performed By: #### 2 432-8 #### HASEEB YOON ([id number]) [facility] ([facility]) [address] [place] [address] Anion gap [Moles/Vol] 9 mmol/L Low 10-20 [facility] Comment on above: Performed By: #### 2 4322-8 #### HASEEB YOON ([id number]) [facility] ([facility]) [address] [place] [address] 43923 AST With P-5'-P [Catalytic activity/Vol] 31 U/L Normal 9-39 [facility] Comment on above: Performed By: #### 2 432-8 #### HASEEB YOON ([id number]) [facility] ([facility]) [address] [place] [address] 37523 Bilirubin [Mass/Vol] 0.3 mg/dL Normal 0.0-1.2 [facility] Comment on above: Performed By: #### 2 432-8 #### HASEEB YOON ([id number]) [facility] ([facility]) [address] [place] [address] 03422 Calcium [Mass/Vol] 9.6 mg/dL Normal 8.6-10.3 [facility] Comment on above: Performed By: #### 2 432-8 #### HASEEB YOON ([id number]) [facility] ([facility]) [address] [place] [address] Chloride [Moles/Vol] 107 mmol/L Normal 98-107 [facility] Comment on above: Performed By: #### 2 432-8 #### HASEEB YOON ([id number]) [facility] ([facility]) [facility] [place] [address] CO2 [Moles/Vol] 32 mmol/L Normal 21-32 [facility] Comment on above: Performed By: #### 2 4323-8 #### HASEEB YOON ([id number]) [facility] ([facility]) [address] [place] [address] 59818 Creatinine [Mass/Vol] 0.72 mg/dL Normal 0.50-1.05 [facility] Comment on above: Performed By: #### 2 432-8 #### HASEEB YOON ([id number]) [facility] ([facility]) [address] [place] [address] 05945 Glomerular filtration rate/1.73 sq M.predicted 82 mL/min/1.73m*2 Normal >60 [facility] Comment on above: Result Comment: Calc ulations of estimated GFR are performed using the 2020 CKD-EPI Study Refit equation without the race variable for the IDMS-Traceable creatinine methods. https://jasn.asnjournals.org/content//ASN.316209 3273 Performed By: #### 2 4323-8 #### HASEEB YOON ([id number]) [facility] ([facility]) [address] [place] [address] [id number] Glucose [Mass/Vol] 106 mg/dL High 74-99 [facility] Comment on above: Performed By: #### 2 4323-8 #### HASEEB YOON ([id number]) [facility] ([facility]) [address] [place] [address] 76853 Potassium [Moles/Vol] 4.7 mmol/L Normal 3.5-5.3 [facility] Comment on above: Performed By: #### 2 4323-8 #### HASEEB YOON ([id number]) [facility] ([facility]) [address] [place] [address] 34769 Protein [Mass/Vol] 5.9 g/dL Low 6.4-8.2 [facility] Comment on above: Performed By: #### 2 4323-8 #### HASEEB YOON ([id number]) [facility] ([facility]) [address] [place] [address] 25923 Sodium [Moles/Vol] 143 mmol/L Normal 136-145 [facility] Comment on above: Performed By: #### 2 4323-8 #### HASEEB YOON ([id number]) [facility] ([facility]) [address] [place] [address] [id number] Urea nitrogen [Mass/Vol] 16 mg/dL Normal 6-23 [facility] Comment on above: Performed By: #### 2 4323-8 #### HASEEB YOON ([id number]) [facility] [facility] ([facility]) [address] [place] [address] Cardiology Visit Reporton Cardiology Visit Report [facility]. [address] [place], [place] [address] OFFICE VISIT Date of Service: 03/15/24 MR#: [id number] Acct: [id number] Name: HUYEN VALERIO I Rep #: [id number] : 1940 Provider: YENIFER fernández Age/Sex: 83/F [place] [facility] Status: Signed HPI HPI History of [...] Intake Visit Reasons: 1 Y FU/PREV PFM Reed Fixer Required: No Accompanied by: Daughter Is patient [...] missed step on curb; no major injury) [facility] Medical History History of fall Zenkers [...] for weaknes (more content not included)... Normal [facility] EGD Reporton 03-08-2024 EGD Report [facility] Medical Records Department [address] [place] [address] EGD Report MR#: [id number] Acct: [id number] Name: HUYEN VALERIO I Rep #: [id number] : 1940 83 From: Jimenez Friend DO [...] present medications. Procedure Code(s): --- Professional --- 17399, Esophagogastroduodenoscopy, flexible, transoral; with biopsy, single or multiple CPT copyright 2021 [employer]. All rights reserved. The codes documented in this report are preliminary and upon information coder review may be revised to meet current compliance requirements. Jimenez Matthew DO 03/08/2024 12:12:28 PM This report has been signed electronically. Number of Addenda: 0 Note Initiated On: 03/08/2024 11:53 AM 03/08/24 1212 Date Jimenez Matthew DO Cosigner Signature: Date (if indicated) CC: [employer]-C Milagros Matthew DO Date Dictated: 03/08/24 1153 Date Transcribed: Tra (more content not included)... Normal [facility] MR/POSTOP.ANEon 03-08-2024 MR/POSTOP.ANE [facility] Medical Records Department [address] [place] [address] Anesthesia Postop Eval I 03/08/24 1215 MR#: [id number] Acct: [id number] Name: HUYEN VALERIO I Rep #: [id number] : 1940 83 From: Girma Whyte PCP: KULDIP BarreraC Status:REG SDC Y Race: C Location: [place] [address] Anesthesia: Postop Eval I Current Vital Signs [...] Date Girma Brock Signature: Date CC: Signed [facility] MR/URGHWLEK4zl 03-08-2024 MR/POSTOPAN2 [facility] Medical Records Department [address] [place] [address] Anesthesia Postop Eval II 03/08/24 1229 MR#: [id number] Acct: [id number] Name: HUYEN VALERIO I Rep #: [id number] : 1940 83 From: Parviz Escalona MD PCP: YENIFER Barrera Status:REG SDC Y Race: C Location: [place] [address] Anesthesia Postop Eval I Sum Postop Eval [...] Parviz Brock Signature: Date CC: Signed Normal [facility] Special Stain Group Ion 10-2 Special Stain Group I --------- Patient Age/Sex Location Account Attending Physician HUYEN VALERIO I 83/F EN [id number] Jimenez Matthew DO Specimen: [id number] Received: 03/08/24 Status: PARKER Rober Num: [id number] Spec Type: EGD BIOPSY Subm Dr: Jimenez [...] totally submitted in one cassette. 03/08/2024 TC:3 CPT:00053,60949 Patient Age/Sex Location Account Attending Physician HUYEN VALERIO I 83/F EN [id number] Jimenez Matthew DO Signed (signature on file) Dr. Geoffrey Cristobal MD 03/09/24 1151 Normal [facility] Comment on above: Performed By: #### P SSI ####[facility] [id number] [place], [place], [address] XR KNEE THREE VIEWS RIGHTon 02-17-2024 XR [...] 02/17/2024 1:17:15 PM Ordering Provider: MILAGROS HUNTER [facility] Gastroenterology Visit Repor ton 02-02-2024 Gastroenterology Visit Report [facility] [address] [place] [address] OFFICE VISIT Date of Service: 02/02/24 MR#: [id number] Acct: [id number] Name: HUYEN VALERIO I Rep #: [id number] : 1940 Provider: LESLIE Aguilar Age/Sex: 83/F [place] [facility] Status: Signed Intake Vital Signs 10/13/23 15:16 [...] to the office today for establishment with [facility] She has a PMHx of Zenker [...] pain wi (more content not included)... Normal [facility] CBC W Auto Differential pane l (Bld)on 01-04-2024 Basophils (Bld) [#/Vol] 0.05 x10*3/uL Normal 0.00-0.10 [facility] Comment on above: Performed By: #### 5 7021-8 #### HASEEB YOON ([id number]) [facility] ([facility]) [address] [place] [address] 72796 Basophils/100 WBC (Bld) 0.6 % Normal 0.0-2.0 [facility] Comment on above: Performed By: #### 5 7021-8 #### HASEEB YOON ([id number]) [facility] ([facility]) [facility] [place] [address] Eosinophils (Bld) [#/Vol] 0.05 x10*3/uL Normal 0.00-0.40 [facility] Comment on above: Performed By: #### 5 7021-8 #### HASEEB YOON ([id number]) [facility] ([facility]) [address] [place] [address] 17027 Eosinophils/100 WBC (Bld) 0.6 % Normal 0.0-6.0 [facility] Comment on above: Performed By: #### 5 7021-8 #### HASEEB YOON ([id number]) [facility] ([facility]) [address] [place] [address] 30870 Erythrocyte distribution width (RBC) [Ratio] 15.5 % High 11.5-14.5 [facility] Comment on above: Performed By: #### 5 7021-8 #### HASEEB YOON ([id number]) [facility] ([facility]) [address] [place] [address] 14012 Hematocrit (Bld) [Volume fraction] 39.8 % Normal 36.0-46.0 [facility] Comment on above: Performed By: #### 5 7021-8 #### HASEEB YOON ([id number]) [facility] ([facility]) [address] [place] [address] 67757 Hemoglobin (Bld) [Mass/Vol] 12.3 g/dL Normal 12.0-16.0 [facility] Comment on above: Performed By: #### 5 7021-8 #### HASEEB YOON ([id number]) [facility] ([facility]) [address] [place] [address] 48844 Immature granulocytes (Bld) [#/Vol] 0.03 x10*3/uL Normal 0.00-0.50 [facility] Comment on above: Performed By: #### 5 7021-8 #### HASEEB YOON ([id number]) [facility] ([facility]) [address] [place] [address] 99025 Immature granulocytes/100 WBC (Bld) 0.4 % Normal 0.0-0.9 [facility] Comment on above: Result Comment: Paty ture Granulocyte Count (IG) includes promyelocytes, myelocytes and metamyelocytes but does not include bands. Percent differential counts (%) should be interpreted in the context of the absolute cell counts (cells/UL). Performed By: #### 5 7021-8 #### HASEEB YOON ([id number]) [facility] ([facility]) [address] [place] [address] Lymphocytes (Bld) [#/Vol] 1.01 x10*3/uL Normal 0.80-3.00 [facility] Comment on above: Performed By: #### 5 7021-8 #### HASEEB YOON ([id number]) [facility] ([facility]) [address] [place], [place] [address] Lymphocytes/100 WBC (Bld) 12.8 % Normal 13.0-44.0 [facility] Comment on above: Performed By: #### 5 7021-8 #### HASEEB YOON ([id number]) [facility] ([facility]) [address] [place] [address] 29394 MCH (RBC) [Entitic mass] 30.3 pg Normal 26.0-34.0 [facility] Comment on above: Performed By: #### 5 7021-8 #### HASEEB YOON ([id number]) [facility] ([facility]) [address] [place] [address] 50188 MCHC (RBC) [Mass/Vol] 30.9 g/dL Low 32.0-36.0 [facility] Comment on above: Performed By: #### 5 7021-8 #### HASEEB YOON ([id number]) [facility] ([facility]) [address] [place] [address] 12687 MCV (RBC) [Entitic vol] 98 fL Normal 80-100 [facility] Comment on above: Performed By: #### 5 7021-8 #### HASEEB YOON ([id number]) [facility] ([facility]) [address] [place] [address] 83952 Monocytes (Bld) [#/Vol] 0.84 x10*3/uL High 0.05-0.80 [facility] Comment on above: Performed By: #### 5 7021-8 #### HASEEB YOON ([id number]) [facility] ([facility]) [address] [place] [address] 78506 Monocytes/100 WBC (Bld) 10.7 % Normal 2.0-10.0 [facility] Comment on above: Performed By: #### 5 7021-8 #### HASEEB YOON ([id number]) [facility] ([facility]) [address] [place] [address] 49756 Neutrophils (Bld) [#/Vol] 5.88 x10*3/uL High 1.60-5.50 [facility] Comment on above: Result Comment: Perc ent differential counts (%) should be interpreted in the context of the absolute cell counts (cells/uL). Performed By: #### 5 7021-8 #### HASEEB YOON ([id number]) [facility] ([facility]) [address] [place] [address] 52713 Neutrophils/100 WBC (Bld) 74.9 % Normal 40.0-80.0 [facility] Comment on above: Performed By: #### 5 7021-8 #### HASEEB YOON ([id number]) [facility] ([facility]) [address] [place] [address] 92331 Nucleated RBC/100 WBC (Bld) [Ratio] 0.0 /100 WBCs Normal 0.0-0.0 [facility] Comment on above: Performed By: #### 5 7021-8 #### HASEEB YOON ([id number]) [facility] ([facility]) [address] [place] [address] 68515 Platelets (Bld) [#/Vol] 373 x10*3/uL Normal 150-450 [facility] Comment on above: Performed By: #### 5 7021-8 #### HASEEB YOON ([id number]) [facility] ([facility]) [address] [place] [address] 32426 RBC (Bld) [#/Vol] 4.06 x10*6/uL Normal 4.00-5.20 [facility] Comment on above: Performed By: #### 5 7021-8 #### HASEEB YOON ([id number]) [facility] ([facility]) [facility] [place] [address] WBC (Bld) [#/Vol] 7.9 x10*3/uL Normal 4.4-11.3 [facility] Comment on above: Performed By: #### 5 7021-8 #### HASEEB YOON ([id number]) [facility] ([facility]) [address] [place] [address] Comprehensive metabolic 2000 panelon 01-04-2024 Albumin BCP dye [Mass/Vol] 4.2 g/dL Normal 3.4-5.0 [facility] Comment on above: Performed By: #### 2 4323-8 #### HASEEB YOON ([id number]) [facility] ([facility]) [address] [place] [address] ALP [Catalytic activity/Vol] 91 U/L Normal 33-136 [facility] Comment on above: Performed By: #### 2 4323-8 #### HASEEB YOON ([id number]) [facility] ([facility]) [address] [place] [address] 34327 ALT With P-5'-P [Catalytic activity/Vol] 10 U/L Normal 7-45 [facility] Comment on above: Result Comment: Bev ents treated with Sulfasalazine may generate falsely decreased results for ALT. Performed By: #### 2 4323-8 #### HASEEB YOON ([id number]) [facility] ([facility]) [address] [place] [address] 82259 Anion gap [Moles/Vol] 12 mmol/L Normal 10-20 [facility] Comment on above: Performed By: #### 2 4323-8 #### HASEEB YOON (06606) [facility] ([facility]) [address] [place] [address] 72964 AST With P-5'-P [Catalytic activity/Vol] 31 U/L Normal 9-39 [facility] Comment on above: Performed By: #### 2 4323-8 #### HASEEB YOON ([id number]) [facility] ([facility]) [address] [place] [address] Bilirubin [Mass/Vol] 0.6 mg/dL Normal 0.0-1.2 [facility] Comment on above: Performed By: #### 2 4323-8 #### HASEEB YOON ([id number]) [facility] ([facility]) [address] [place] [address] Calcium [Mass/Vol] 10.0 mg/dL Normal 8.6-10.3 [facility] Comment on above: Performed By: #### 2 432-8 #### HASEEB YOON ([id number]) [facility] ([facility]) [address] [place] [address] 10504 Chloride [Moles/Vol] 104 mmol/L Normal 98-107 [facility] Comment on above: Performed By: #### 2 432-8 #### HASEEB YOON ([id number]) [facility] ([facility]) [address] [place] [address] 81199 CO2 [Moles/Vol] 28 mmol/L Normal 21-32 [facility] Comment on above: Performed By: #### 2 4323-8 #### HASEEB YOON ([id number]) [facility] ([facility]) [facility] [place] [address] Creatinine [Mass/Vol] 0.83 mg/dL Normal 0.50-1.05 [facility] Comment on above: Performed By: #### 2 4323-8 #### HASEEB YOON ([id number]) [facility] ([facility]) [address] [place] [address] 01643 Glomerular filtration rate/1.73 sq M.predicted 69 mL/min/1.73m*2 Normal >60 [facility] Comment on above: Result Comment: Calc ulations of estimated GFR are performed using the 2020 CKD-EPI Study Refit equation without the race variable for the IDMS-Traceable creatinine methods. https://jasn.asnjournals.org/content//ASN.754646 3475 Performed By: #### 2 4323-8 #### HASEEB YOON ([id number]) [facility] ([facility]) [facility] [place] [address] Glucose [Mass/Vol] 115 mg/dL High 74-99 [facility] Comment on above: Performed By: #### 2 4323-8 #### HASEEB YOON ([id number]) [facility] ([facility]) [address] [place] [address] 28524 Potassium [Moles/Vol] 4.5 mmol/L Normal 3.5-5.3 [facility] Comment on above: Performed By: #### 2 4323-8 #### HASEEB YOON ([id number]) [facility] ([facility]) [address] [place] [address] 57597 Protein [Mass/Vol] 6.6 g/dL Normal 6.4-8.2 [facility] Comment on above: Performed By: #### 2 4323-8 #### HASEEB YOON ([id number]) [facility] ([facility]) [address] [place] [address] 37397 Sodium [Moles/Vol] 139 mmol/L Normal 136-145 [facility] Comment on above: Performed By: #### 2 4323-8 #### HASEEB YOON ([id number]) [facility] ([facility]) [facility] [place] [address] Urea nitrogen [Mass/Vol] 20 mg/dL Normal 6-23 [facility] Comment on above: Performed By: #### 2 4323-8 #### HASEEB YOON ([id number]) [facility] ([facility]) [address] [place] [address] 24810 Facial Bones min 3 Viewson 0 11-03-[address]23 Facial Bones min [address] [facility] Imaging Services [address] [place] [address] Facial Bones min 3 Views MR#: [id number] Acct: [id number] Name: HUYEN VALERIO I Rep #: [id number] : 1940 F 83 From: Girma Barajas MD PCP: YENIFER Barrera Status: REG CLI Study: Facial Bones min 3 Views Date of Exam: 4 Exam# [id number] Ordering Dr: Milagros Hunter NP 3:[id number] STUDY: X-RAY - FACIAL BONES REASON FOR [...] at 11:46 EDT , CC: YENIFER Hunter Condenser Tube Tender: Signed Normal [facility] 10-20-2023 [facility] TEODOROH[facility]EN I ([id number]) 1940 F Date Time Provider Department 10/20/23 DC [facility] During your visit today, we recorded [...] month. - Omeprazole 40 mg capsule - hihsolhrtfbpz-[id number]-PF (REFRESH OPTIVE ADVANCED, PF,) 0.5-1-0.5 % dpet [...] Status:Closed by SEPIDEH BAUTISTA on 10/20/23 Normal [facility] Brain/Head without Contrasto n 10-13-2023 Brain/Head without Contrast [facility] Imaging Services [address] [place] [address] 61871 Brain/Head without Contrast MR#: [id number] Acct: [id number] Name: HUYEN VALERIO I Rep #: [id number] : 1940 F 83 From: Riley Miller DO PCP: YENIFER Barrera Status: REG ER Study: Brain/Head without Contrast Date of Exam: 09/01 Exam# [id number] Ordering Dr: Roosevelt Zimmerman MD 0:[id number] STUDY: CT BRAIN WITHOUT CONTRAST REASON FOR [...] EDT Reading Location ID and State: [facility] / [place] Tel [phone], Service support , CC: YENIFER Hunter; Dr. Roosevelt Zimmerman MD Condenser Tube Tender: Signed Normal [facility] CBC W Auto Differential pane l (Bld)on 10-13-2023 Basophils (Bld) [#/Vol] 0.07 10*3/uL Normal <0.11 [facility] Comment on above: Order Comment: Speci men Type: BLOOD SPECIMEN Ordering Facility: [facility] Address: [address] [place] [address] Performed By: #### 5 7021-8 #### [facility] CLIA [id number] [address] [place] [address] [place] Basophils/100 WBC (Bld) 0.8 % Normal [facility] Comment on above: Order Comment: Speci men Type: BLOOD SPECIMEN Ordering Facility: [facility] Address: [address] [place] [address] Performed By: #### 5 7021-8 #### [facility] CLIA [id number] [address] [place] [address] [place] Differential cell count method Nom (Bld) Auto Normal [facility] Comment on above: Order Comment: Speci men Type: BLOOD SPECIMEN Ordering Facility: [facility] Address: [address] [place] [address] Performed By: #### 5 7021-8 #### [facility] CLIA [id number] [address] [place] [address] [place] Eosinophils (Bld) [#/Vol] 0.08 10*3/uL Normal <0.46 [facility] Comment on above: Order Comment: Speci men Type: BLOOD SPECIMEN Ordering Facility: [facility] Address: [address] [place] [address] Performed By: #### 5 7021-8 #### [facility] CLIA [id number] [address] [place] [address] [place] Eosinophils/100 WBC (Bld) 1.0 % Normal [facility] Comment on above: Order Comment: Speci men Type: BLOOD SPECIMEN Ordering Facility: [facility] Address: [address] [place] [address] Performed By: #### 5 7021-8 #### [facility] CLIA [id number] [address] [place] [address] [place] Erythrocyte distribution width (RBC) [Ratio] 16.9 % High 11.5-15.0 [facility] Comment on above: Order Comment: Speci men Type: BLOOD SPECIMEN Ordering Facility: [facility] Address: [address] [place] [address] Performed By: #### 5 7021-8 #### [facility] CLIA [id number] [address] [place] [address] [place] Hematocrit (Bld) [Volume fraction] 38.5 % Normal 36.0-46.0 [facility] Comment on above: Order Comment: Speci men Type: BLOOD SPECIMEN Ordering Facility: [facility] Address: [address] [place] [address] Performed By: #### 5 7021-8 #### [facility] CLIA [id number] [address] [place] [address] [place] Hemoglobin (Bld) [Mass/Vol] 11.9 g/dL Normal 11.5-15.5 [facility] Comment on above: Order Comment: Speci men Type: BLOOD SPECIMEN Ordering Facility: [facility] Address: [address] [place] [address] Performed By: #### 5 7021-8 #### [facility] CLIA [id number] [address] [place] [address] [place] Immature granulocytes (Bld) [#/Vol] 0.04 10*3/uL Normal <0.10 [facility] Comment on above: Order Comment: Speci men Type: BLOOD SPECIMEN Ordering Facility: [facility] Address: [address] [place] [address] Performed By: #### 5 7021-8 #### [facility] CLIA [id number] [address] [place] [address] [place] Immature granulocytes/100 WBC (Bld) 0.5 % Normal [facility] Comment on above: Order Comment: Speci men Type: BLOOD SPECIMEN Ordering Facility: [facility] Address: [address] [place] [address] Performed By: #### 5 7021-8 #### [facility] CLIA [id number] [address] [place] [address] [place] Lymphocytes (Bld) [#/Vol] 0.71 10*3/uL Low 1.00-4.00 [facility] Comment on above: Order Comment: Speci men Type: BLOOD SPECIMEN Ordering Facility: [facility] Address: [address] [place] [address] Performed By: #### 5 7021-8 #### [facility] CLIA [id number] [address] [place] [address] [place] Lymphocytes/100 WBC (Bld) 8.6 % Normal [facility] Comment on above: Order Comment: Speci men Type: BLOOD SPECIMEN Ordering Facility: [facility] Address: [address] [place] [address] Performed By: #### 5 7021-8 #### [facility] CLIA [id number] [address] [place] [address] [place] MCH (RBC) [Entitic mass] 29.7 pg Normal 26.0-34.0 [facility] Comment on above: Order Comment: Speci men Type: BLOOD SPECIMEN Ordering Facility: [facility] Address: [address] [place] [address] Performed By: #### 5 7021-8 #### [facility] CLIA [id number] [address] [place] [address] [place] MCHC (RBC) [Mass/Vol] 30.9 g/dL Normal 30.5-36.0 [facility] Comment on above: Order Comment: Speci men Type: BLOOD SPECIMEN Ordering Facility: [facility] Address: [address] [place] [address] Performed By: #### 5 7021-8 #### [facility] CLIA [id number] [address] [place] [address] [place] MCV (RBC) [Entitic vol] 96.0 fL Normal 80.0-100.0 [facility] Comment on above: Order Comment: Speci men Type: BLOOD SPECIMEN Ordering Facility: [facility] Address: [address] [place] [address] Performed By: #### 5 7021-8 #### [facility] CLIA [id number] [address] [place] [address] [place] Monocytes (Bld) [#/Vol] 0.78 10*3/uL Normal <0.87 [facility] Comment on above: Order Comment: Speci men Type: BLOOD SPECIMEN Ordering Facility: [facility] Address: [address] [place] [address] Performed By: #### 5 7021-8 #### [facility] CLIA [id number] [address] [place] [address] [place] Monocytes/100 WBC (Bld) 9.5 % Normal [facility] Comment on above: Order Comment: Speci men Type: BLOOD SPECIMEN Ordering Facility: [facility] Address: [address] [place] [address] Performed By: #### 5 7021-8 #### [facility] [facility] CLIA [id number] [address] [place] [address] [place] Neutrophils (Bld) [#/Vol] 6.56 10*3/uL Normal 1.45-7.50 [facility] Comment on above: Order Comment: Speci men Type: BLOOD SPECIMEN Ordering Facility: [facility] Address: [address] [place] [address] Performed By: #### 5 7021-8 #### [facility] CLIA [id number] [address] [place] [address] [place] Neutrophils/100 WBC (Bld) 79.6 % Normal [facility] Comment on above: Order Comment: Speci men Type: BLOOD SPECIMEN Ordering Facility: [facility] Address: [address] [place] [address] Performed By: #### 5 7021-8 #### [facility] CLIA [id number] [address] [place] [address] [place] Nucleated RBC (Bld) [#/Vol] 10*3/uL Normal <0.01 [facility] Comment on above: Order Comment: Speci men Type: BLOOD SPECIMEN Ordering Facility: [facility] Address: [address] [place] [address] Performed By: #### 5 7021-8 #### [facility] CLIA [id number] [address] [place] [address] [place] Nucleated RBC/100 WBC (Bld) [Ratio] 0.0 /100 WBC Normal [facility] Comment on above: Order Comment: Speci men Type: BLOOD SPECIMEN Ordering Facility: [facility] Address: [address] [place] [address] Performed By: #### 5 7021-8 #### [facility] CLIA [id number] [address] [place], [place] [address] [place] Platelet mean volume (Bld) [Entitic vol] 12.0 fL Normal 9.0-12.7 [facility] Comment on above: Order Comment: Speci men Type: BLOOD SPECIMEN Ordering Facility: [facility] Address: [address] [place] [address] Performed By: #### 5 7021-8 #### [facility] CLIA [id number] [address] [place] [address] [place] Platelets (Bld) [#/Vol] 326 10*3/uL Normal 150-400 [facility] Comment on above: Order Comment: Speci men Type: BLOOD SPECIMEN Ordering Facility: [facility] Address: [address] [place] [address] Performed By: #### 5 7021-8 #### [facility] CLIA [id number] [address] [place] [address] [place] RBC (Bld) [#/Vol] 4.01 10*6/uL Normal 3.90-5.20 [facility] Comment on above: Order Comment: Speci men Type: BLOOD SPECIMEN Ordering Facility: [facility] Address: [address] [place] [address] Performed By: #### 5 7021-8 #### [facility] CLIA [id number] [address] [place] [address] [place] WBC (Bld) [#/Vol] 8.24 10*3/uL Normal 3.70-11.00 [facility] Comment on above: Order Comment: Speci men Type: BLOOD SPECIMEN Ordering Facility: [facility] Address: [address] [place] [address] Performed By: #### 5 7021-8 #### [facility] CLIA [id number] [address] [place] [address] [place] Comprehensive metabolic 2000 panelon 10-13-2023 Albumin [Mass/Vol] 4.0 g/dL Normal 3.9-4.9 [facility] Comment on above: Order Comment: Speci men Type: BLOOD SPECIMEN Ordering Facility: [facility] Address: [address] [place] [address] Performed By: #### 2 4323-8 #### [facility] CLIA [id number] [address] [place] [address] [place] ALP [Catalytic activity/Vol] 112 U/L Normal 34-123 [facility] Comment on above: Order Comment: Speci men Type: BLOOD SPECIMEN Ordering Facility: [facility] Address: [address] [place] [address] Performed By: #### 2 4323-8 #### [facility] CLIA [id number] [address] [place] [address] [place] ALT [Catalytic activity/Vol] 13 U/L Normal 7-38 [facility] Comment on above: Order Comment: Speci men Type: BLOOD SPECIMEN Ordering Facility: [facility] Address: [address] [place] [address] Performed By: #### 2 4323-8 #### [facility] CLIA [id number] [address] [place] [address] [place] Anion gap [Moles/Vol] 13 mmol/L Normal 8-15 [facility] Comment on above: Order Comment: Speci men Type: BLOOD SPECIMEN Ordering Facility: [facility] Address: [address] [place] [address] Performed By: #### 2 4323-8 #### [facility] CLIA [id number] [address] [place] [address] [place] AST [Catalytic activity/Vol] 41 U/L High 13-35 [facility] Comment on above: Order Comment: Speci men Type: BLOOD SPECIMEN Ordering Facility: [facility] Address: [address] [place] [address] Performed By: #### 2 4323-8 #### [facility] CLIA [id number] [address] [place] [address] [place] Bilirubin [Mass/Vol] 0.4 mg/dL Normal 0.2-1.3 [facility] Comment on above: Order Comment: Speci men Type: BLOOD SPECIMEN Ordering Facility: [facility] Address: [address] [place] [address] Performed By: #### 2 4323-8 #### [facility] CLIA [id number] [address] [place] [address] [place] Calcium [Mass/Vol] 10.3 mg/dL High 8.5-10.2 [facility] Comment on above: Order Comment: Speci men Type: BLOOD SPECIMEN Ordering Facility: [facility] Address: [address] [place] [address] Performed By: #### 2 4323-8 #### [facility] CLIA [id number] [address] [place] [address] [place] Chloride [Moles/Vol] 103 mmol/L Normal 98-107 [facility] Comment on above: Order Comment: Speci men Type: BLOOD SPECIMEN Ordering Facility: [facility] Address: [address] [place] [address] Performed By: #### 2 4323-8 #### [facility] CLIA [id number] [address] [place] [address] [place] CO2 [Moles/Vol] 26 mmol/L Normal 22-30 [facility] Comment on above: Order Comment: Speci men Type: BLOOD SPECIMEN Ordering Facility: [facility] Address: [address] [place], [place] [id number] Performed By: #### 2 4323-8 #### [facility] CLIA [id number] [address] [place] [address] [place] Creatinine [Mass/Vol] 0.78 mg/dL Normal 0.58-0.96 [facility] Comment on above: Order Comment: Maryann patel Type: BLOOD SPECIMEN Ordering Facility: [facility] Address: [address] [place] [address] Performed By: #### 2 4323-8 #### [facility] CLIA [id number] [address] [place] [address] [place] Creatinine and Glomerular filtration rate.predicted panel (S/P/Bld) 75 mL/min/1.73m??? Normal >=60 [facility] Comment on above: Order Comment: Maryann patel Type: BLOOD SPECIMEN Ordering Facility: [facility] Address: [address] [place] [address] Result Comment: Kallie mated Glomerular Filtration Rate [...] GFR. Performed By: #### 2 4323-8 #### [facility] CLIA [id number] [address] [place] [address] [place] Glucose [Mass/Vol] 94 mg/dL Normal 74-99 [facility] Comment on above: Order Comment: Maryann patel Type: BLOOD SPECIMEN Ordering Facility: [facility] Address: [address] [place] [address] Result Comment: The [place] [employer] (ADA) provides guidance for cutoff [...] Standards of Medical Care in Diabetes 2016, [place] [employer]. Diabetes Care. 2016.39(Suppl 1). Performed By: #### 2 4323-8 #### [facility] CLIA [id number] [address] [place] [address] [place] Potassium [Moles/Vol] 4.5 mmol/L Normal 3.7-5.1 [facility] Comment on above: Order Comment: Speci men Type: BLOOD SPECIMEN Ordering Facility: [facility] Address: [address] [place] [address] Performed By: #### 2 4323-8 #### [facility] CLIA [id number] [address] [place] [address] [place] Protein [Mass/Vol] 6.2 g/dL Low 6.3-8.0 [facility] Comment on above: Order Comment: Speci men Type: BLOOD SPECIMEN Ordering Facility: [facility] Address: [address] [place] [address] Performed By: #### 2 4323-8 #### [facility] CLIA [id number] [address] [place] [address] [place] Sodium [Moles/Vol] 142 mmol/L Normal 136-144 [facility] Comment on above: Order Comment: Speci men Type: BLOOD SPECIMEN Ordering Facility: [facility] Address: [address] [place] [address] Performed By: #### 2 4323-8 #### [facility] CLIA [id number] [address] [place] [address] [place] Urea nitrogen [Mass/Vol] 18 mg/dL Normal 7-21 [facility] Comment on above: Order Comment: Speci men Type: BLOOD SPECIMEN Ordering Facility: [facility] Address: [address] [place] [address] Performed By: #### 2 4323-8 #### [facility] CLIA [id number] [address] [place] [address] OF [facility] Emergency Department Summary on 10-13-2023 Emergency Department Summary [facility] Medical Records Department [address] [place] [address] Emergency Department Summary 10/13/23 MR#: [id number] Acct: [id number] Name: HUYEN VALERIO I Rep #: [id number] : 1940 83 From: Roosevelt Zimmerman MD PCP: Milagros Hunter [employer]-C Status:REG ER Location: ED HPI HPI - Fall History of Present Illness Chief Complaint: Fall Narrative Narrative: 83-year-old female presents via EMS status post fall in the parking lot. Her daughter is with her and states that they were coming out of the [employer] store. She stepped down off a curb. She fell forward onto her face, and left shoulder. She complains of headache on the left side, laceration to the left faith, no neck pain but has left shoulder pain. She is right-hand dominant. She has had bilateral total knee arthroplasties and complains of left knee pain as well. There was no loss of consciousness with the fall. She is unsure of her last tetanus immunization. [facility] Medical History [place] diverticulum Back pain Kidney [...] of vision. No rhinorrhea. Laceration to left faith. Cardiovascular: No chest pain. No palpitations. Right [...] HEENT: Normoceph (more content not included)... Normal [facility] Knee 4 or More Viewson 10-12 Knee 4 or More Views [facility] [address] [place] [address] [id number] Knee 4 or More Views MR#: [id number] Acct: [id number] Name: HUYEN VALERIO I Rep #: [id number] : 1940 F 83 From: Riley Miller DO PCP: YENIFER Barrera Status: REG ER Study: Knee 4 or More Views Date of Exam: 10/13/23 Exam# [id number] Ordering Dr: Roosevelt Zimmerman MD [id number] INDICATION: Trauma EXAMINATION/TECHNIQUE: X-RAY - LEFT XR [...] CC: YENIFER Hunter; Dr. Roosevelt Zimmerman MD Condenser Tube Tender: Signed Normal [facility] Shoulder min 2 Viewson 10-12 Shoulder min 2 Views [facility] Imaging Services [address] [place] [address] Shoulder min 2 Views MR#: [id number] Acct: [id number] Name: HUYEN VALERIO I Rep #: [id number] : 1940 F 83 From: Riley Miller DO PCP: YENIFER Barrera Status: REG ER Study: Shoulder min 2 Views Date of Exam: 10/13/23 Exam# [id number] Ordering Dr: Roosevelt Zimmerman MD [id number] INDICATION: trauma EXAMINATION/TECHNIQUE: X-RAY - LEFT XR [...] CC: YENIFER Hunter; Dr. Roosevelt Zimmerman MD Condenser Tube Tender: Signed Normal [facility] Venous Duplex US, Unilateral on 10-13-2023 Venous Duplex US, Unilateral [facility] [address] [place] [address] Venous Duplex US, Unilateral 10/13/23 1544 MR#: [id number] Acct: [id number] Name: HUYEN VALERIO I Rep #: [id number] : 1940 83 From: Parviz Mandujano MD [...] 10/13/23 1632 Date Parviz Mandujano MD CC: [employer]-C Milagros Hunter; Dr. Roosevelt Zimmerman MD Date Dictated: 10/13/23 1544 Date Transcribed: 10/13/23 7691 Condenser Tube Tender: Signed Normal [facility] Laboratory - Drug toxicology Ordered By: Mylene Hoskins on 09-08-2023 Amphetamines Ql (U) Negative <1000 ng/mL [facility] Benzodiazepines Ql (U) Negative < 200 ng/mL [facility] Cannabinoids Screen Ql (U) Negative < 50 ng/mL [facility] Cocaine Ql (U) Negative < 300 ng/mL [facility] Opiates Ql (U) Negative < 300 ng/mL [facility] No Panel InformationOrdered By: Mylene Hoskins on 09-08-2023 MDMA (Ecstasy) Screen Negative < 500 ng/mL [facility] Miscellaneous Test See comment [facility] Comment on above: TEST RESULTS LIMITST ramadol POSITIVE [id number]=585 Tramadol Conf, [place], [place] >77526 ng/mL RHTOMB=868 TESTING PERFORMED AT [facility]. ORIGINAL REPORT ON FILE IN LAB CONTAINS ADDITIONAL TEST SITE INFORMATION. Urine Barbiturates Screen Negative < 200 ng/mL [facility] Urine Buprenorphine Screen Negative <10 ng/mL [facility] Urine Drug Screen Comment [facility] Comment on above: *Additional results available. Contact [...] Urine Methadone Screen Negative < 300 ng/mL [facility] Urine phencyclidine (PCP) de tectionOrdered By: Mylene Hoskins on 09-08-2023 Phencyclidine Ql (U) Negative < 25 ng/mL [facility] CBC W Auto Differential pane l (Bld)on 07-08-2023 Basophils (Bld) [#/Vol] 0.06 10*3/uL Normal <0.11 [facility] Comment on above: Order Comment: Speci men Type: BLOOD SPECIMEN Ordering Facility: [facility] Address: [address] [place] [address] Performed By: #### 5 7021-8 #### [facility] CLIA [id number] [address] [place] [address] [place] Basophils/100 WBC (Bld) 0.7 % Normal [facility] Comment on above: Order Comment: Speci men Type: BLOOD SPECIMEN Ordering Facility: [facility] Address: [address] [place] [address] Performed By: #### 5 7021-8 #### [facility] CLIA [id number] [address] [place] [address] [place] Differential cell count method Nom (Bld) Auto Normal [facility] Comment on above: Order Comment: Speci men Type: BLOOD SPECIMEN Ordering Facility: [facility] Address: [address] [place] [address] Performed By: #### 5 7021-8 #### [facility] CLIA [id number] [address] [place] [address] [place] Eosinophils (Bld) [#/Vol] 0.10 10*3/uL Normal <0.46 [facility] Comment on above: Order Comment: Speci men Type: BLOOD SPECIMEN Ordering Facility: [facility] Address: [address] [place] [address] Performed By: #### 5 7021-8 #### [facility] CLIA [id number] [address] [place] [address] [place] Eosinophils/100 WBC (Bld) 1.2 % Normal [facility] Comment on above: Order Comment: Speci men Type: BLOOD SPECIMEN Ordering Facility: [facility] Address: [address] [place] [address] Performed By: #### 5 7021-8 #### [facility] CLIA [id number] [address] [place] [address] [place] Erythrocyte distribution width (RBC) [Ratio] 16.3 % High 11.5-15.0 [facility] Comment on above: Order Comment: Speci men Type: BLOOD SPECIMEN Ordering Facility: [facility] Address: [address] [place] [address] Performed By: #### 5 7021-8 #### [facility] CLIA [id number] [address] [place] [address] [place] Hematocrit (Bld) [Volume fraction] 38.6 % Normal 36.0-46.0 [facility] Comment on above: Order Comment: Speci men Type: BLOOD SPECIMEN Ordering Facility: [facility] Address: [address] [place] [address] Performed By: #### 5 7021-8 #### [facility] CLIA [id number] [address] [place] [address] [place] Hemoglobin (Bld) [Mass/Vol] 12.0 g/dL Normal 11.5-15.5 [facility] Comment on above: Order Comment: Speci men Type: BLOOD SPECIMEN Ordering Facility: [facility] Address: [address] [place] [address] Performed By: #### 5 7021-8 #### [facility] CLIA [id number] [address] [place] [address] [place] Immature granulocytes (Bld) [#/Vol] 0.04 10*3/uL Normal <0.10 [facility] Comment on above: Order Comment: Speci men Type: BLOOD SPECIMEN Ordering Facility: [facility] Address: [address] [place] [address] Performed By: #### 5 7021-8 #### [facility] CLIA [id number] [address] [place] [address] [place] Immature granulocytes/100 WBC (Bld) 0.5 % Normal [facility] Comment on above: Order Comment: Speci men Type: BLOOD SPECIMEN Ordering Facility: [facility] Address: [address] [place] [address] Performed By: #### 5 7021-8 #### [facility] CLIA [id number] [address] [place] [address] [place] Lymphocytes (Bld) [#/Vol] 0.74 10*3/uL Low 1.00-4.00 [facility] Comment on above: Order Comment: Speci men Type: BLOOD SPECIMEN Ordering Facility: [facility] Address: [address] [place] [address] Performed By: #### 5 7021-8 #### [facility] IA [id number] [address] [place] [address] [place] Lymphocytes/100 WBC (Bld) 8.7 % Normal [facility] Comment on above: Order Comment: Speci men Type: BLOOD SPECIMEN Ordering Facility: [facility] Address: [address] [place] [address] Performed By: #### 5 7021-8 #### [facility] IA [id number] [address] [place] [address] [place] MCH (RBC) [Entitic mass] 29.1 pg Normal 26.0-34.0 [facility] Comment on above: Order Comment: Speci men Type: BLOOD SPECIMEN Ordering Facility: [facility] Address: [address] [place] [address] Performed By: #### 5 7021-8 #### [facility] IA [id number] [address] [place] [address] [place] MCHC (RBC) [Mass/Vol] 31.1 g/dL Normal 30.5-36.0 [facility] Comment on above: Order Comment: Speci men Type: BLOOD SPECIMEN Ordering Facility: [facility] Address: [address] [place] [address] Performed By: #### 5 7021-8 #### [facility] CLIA [id number] [address] [place] [address] [place] MCV (RBC) [Entitic vol] 93.5 fL Normal 80.0-100.0 [facility] Comment on above: Order Comment: Speci men Type: BLOOD SPECIMEN Ordering Facility: [facility] Address: [address] [place] [address] Performed By: #### 5 7021-8 #### [facility] CLIA [id number] [address] [place] [address] [place] Monocytes (Bld) [#/Vol] 0.64 10*3/uL Normal <0.87 [facility] Comment on above: Order Comment: Speci men Type: BLOOD SPECIMEN Ordering Facility: [facility] Address: [address] [place] [address] Performed By: #### 5 7021-8 #### [facility] CLIA [id number] [address] [place] [address] [place] Monocytes/100 WBC (Bld) 7.5 % Normal [facility] Comment on above: Order Comment: Speci men Type: BLOOD SPECIMEN Ordering Facility: [facility] Address: [address] [place] [address] Performed By: #### 5 7021-8 #### [facility] CLIA [id number] [address] [place] [address] [place] Neutrophils (Bld) [#/Vol] 6.92 10*3/uL Normal 1.45-7.50 [facility] Comment on above: Order Comment: Speci men Type: BLOOD SPECIMEN Ordering Facility: [facility] Address: [address] [place] [address] Performed By: #### 5 7021-8 #### [facility] CLIA [id number] [address] [place] [address] [place] Neutrophils/100 WBC (Bld) 81.4 % Normal [facility] Comment on above: Order Comment: Speci men Type: BLOOD SPECIMEN Ordering Facility: [facility] Address: [address] [place] [address] Performed By: #### 5 7021-8 #### [facility] CLIA [id number] [address] [place] [address] [place] Nucleated RBC (Bld) [#/Vol] 10*3/uL Normal <0.01 [facility] Comment on above: Order Comment: Speci men Type: BLOOD SPECIMEN Ordering Facility: [facility] Address: [address] [place] [address] Performed By: #### 5 7021-8 #### [facility] CLIA [id number] [address] [place] [address] [place] Nucleated RBC/100 WBC (Bld) [Ratio] 0.0 /100 WBC Normal [facility] Comment on above: Order Comment: Speci men Type: BLOOD SPECIMEN Ordering Facility: [facility] Address: [address] [place] [address] Performed By: #### 5 7021-8 #### [facility] CLIA [id number] [address] [place] [address] [place] Platelet mean volume (Bld) [Entitic vol] 11.3 fL Normal 9.0-12.7 [facility] Comment on above: Order Comment: Speci men Type: BLOOD SPECIMEN Ordering Facility: [facility] Address: [address] [place] [address] Performed By: #### 5 7021-8 #### [facility] CLIA [id number] [address] [place] [address] [place] Platelets (Bld) [#/Vol] 389 10*3/uL Normal 150-400 [facility] Comment on above: Order Comment: Speci men Type: BLOOD SPECIMEN Ordering Facility: [facility] Address: [address] [place] [address] Performed By: #### 5 7021-8 #### [facility] CLIA [id number] [address] [place] [address] [place] RBC (Bld) [#/Vol] 4.13 10*6/uL Normal 3.90-5.20 [facility] Comment on above: Order Comment: Speci men Type: BLOOD SPECIMEN Ordering Facility: [facility] Address: [address] [place] [address] Performed By: #### 5 7021-8 #### [facility] CLIA [id number] [address] [place] [address] [place] WBC (Bld) [#/Vol] 8.50 10*3/uL Normal 3.70-11.00 [facility] Comment on above: Order Comment: Speci men Type: BLOOD SPECIMEN Ordering Facility: [facility] Address: [address] [place] [address] Performed By: #### 5 7021-8 #### [facility] CLIA [id number] [address] [place] [address] [place] Comprehensive metabolic 2000 panelon 07-08-2023 Albumin [Mass/Vol] 4.0 g/dL Normal 3.9-4.9 [facility] [facility] Comment on above: Order Comment: Speci men Type: BLOOD SPECIMEN Ordering Facility: [facility] Address: [address] [place] [address] Performed By: #### 2 4323-8 #### [facility] CLIA [id number] [address] [place] [address] [place] ALP [Catalytic activity/Vol] 125 U/L High 34-123 [facility] Comment on above: Order Comment: Speci men Type: BLOOD SPECIMEN Ordering Facility: [facility] Address: [address] [place] [address] Performed By: #### 2 4323-8 #### [facility] CLIA [id number] [address] [place] [address] [place] ALT [Catalytic activity/Vol] 10 U/L Normal 7-38 [facility] Comment on above: Order Comment: Speci men Type: BLOOD SPECIMEN Ordering Facility: [facility] Address: [address] [place] [address] Performed By: #### 2 4323-8 #### [facility] CLIA [id number] [address] [place] [address] [place] Anion gap [Moles/Vol] 11 mmol/L Normal 9-18 [facility] Comment on above: Order Comment: Speci men Type: BLOOD SPECIMEN Ordering Facility: [facility] Address: [address] [place] [address] Performed By: #### 2 4323-8 #### [facility] CLIA [id number] [address] [place] [address] [place] AST [Catalytic activity/Vol] 36 U/L High 13-35 [facility] Comment on above: Order Comment: Speci men Type: BLOOD SPECIMEN Ordering Facility: [facility] Address: [address] [place] [address] Performed By: #### 2 4323-8 #### [facility] CLIA [id number] [address] [place] [address] [place] Bilirubin [Mass/Vol] 0.3 mg/dL Normal 0.2-1.3 [facility] Comment on above: Order Comment: Speci men Type: BLOOD SPECIMEN Ordering Facility: [facility] Address: [address] [place] [address] Performed By: #### 2 4323-8 #### [facility] CLIA [id number] [address] [place] [id number] [place] Calcium [Mass/Vol] 10.0 mg/dL Normal 8.5-10.2 [facility] Comment on above: Order Comment: Speci men Type: BLOOD SPECIMEN Ordering Facility: [facility] Address: [address] [place] [address] Performed By: #### 2 4323-8 #### [facility] CLIA [id number] [address] [place] [address] [place] Chloride [Moles/Vol] 102 mmol/L Normal 97-105 [facility] Comment on above: Order Comment: Speci men Type: BLOOD SPECIMEN Ordering Facility: [facility] Address: [address] [place] [address] Performed By: #### 2 4323-8 #### [facility] CLIA [id number] [address] [place] [address] [place] CO2 [Moles/Vol] 29 mmol/L Normal 22-30 [facility] Comment on above: Order Comment: Speci men Type: BLOOD SPECIMEN Ordering Facility: [facility] Address: [address] [place] [address] Performed By: #### 2 4323-8 #### [facility] CLIA [id number] [address] [place] [address] [place] Creatinine [Mass/Vol] 0.63 mg/dL Normal 0.58-0.96 [facility] Comment on above: Order Comment: Speci men Type: BLOOD SPECIMEN Ordering Facility: [facility] Address: [address] [place] [address] Performed By: #### 2 4323-8 #### [facility] CLIA [id number] [address] [place] [address] [place] Creatinine and Glomerular filtration rate.predicted panel (S/P/Bld) 88 mL/min/1.73m??? Normal >=60 [facility] Comment on above: Order Comment: Speci men Type: BLOOD SPECIMEN Ordering Facility: [facility] Address: [address] [place] [address] Result Comment: Kallie mated Glomerular Filtration Rate [...] GFR. Performed By: #### 2 4323-8 #### [facility] CLIA [id number] [address] [place] [address] [place] Glucose [Mass/Vol] 100 mg/dL High 74-99 [facility] Comment on above: Order Comment: Maryann patel Type: BLOOD SPECIMEN Ordering Facility: [facility] Address: [address] [place] [address] Result Comment: The [place] [employer] (ADA) provides guidance for cutoff [...] Standards of Medical Care in Diabetes 2016, [place] [employer]. Diabetes Care. 2016.39(Suppl 1). Performed By: #### 2 4323-8 #### [facility] CLIA [id number] [address] [place], [place] [address] [place] Potassium [Moles/Vol] 4.5 mmol/L Normal 3.7-5.1 [facility] Comment on above: Order Comment: Maryann patel Type: BLOOD SPECIMEN Ordering Facility: [facility] Address: [address] [place], [place] [id number] Performed By: #### 2 4323-8 #### [facility] CLIA [id number] [address] [address] [place] Protein [Mass/Vol] 6.9 g/dL Normal 6.3-8.0 [facility] Comment on above: Order Comment: Maryann patel Type: BLOOD SPECIMEN Ordering Facility: [facility] Address: [address] [place] [address] Performed By: #### 2 4323-8 #### [facility] CLIA [id number] [address] [place] [address] [place] Sodium [Moles/Vol] 142 mmol/L Normal 136-144 [facility] Comment on above: Order Comment: Skipi men Type: BLOOD SPECIMEN Ordering Facility: [facility] Address: [address] [place] [address] Performed By: #### 2 4323-8 #### [facility] CLIA [id number] [address] [place] [address] [place] Urea nitrogen [Mass/Vol] 10 mg/dL Normal 7-21 [facility] Comment on above: Order Comment: Skipi jorge Type: BLOOD SPECIMEN Ordering Facility: [facility] Address: [address] [place] [address] Performed By: #### 2 4323-8 #### [facility] CLIA [id number] [address] [place] [address] [place] BLOOD TB SCREENon 04-14-2023 M. tuberculosis tuberculin stim IFN-g Ql (Bld) Negative Normal [facility] Comment on above: Order Comment: Maryann patel Type: BLOOD SPECIMEN Ordering Facility: [facility] Address: [address] [place] [address] Performed By: #### I NFTBP #### [facility] CLIA [id number] [address] [place] [address] [place] MITOGEN MINUS NIL 2.59 IU/mL Normal >=0.50 [facility] Comment on above: Order Comment: Maryann patel Type: BLOOD SPECIMEN Ordering Facility: [facility] Address: [address] [place] [address] Performed By: #### I NFTBP #### [facility] CLIA [id number] [address] [place] [address] [place] TB GAMMA INTERPRETATION Infection with M. tuberculosis complex is unlikely. If latent tuberculosis infection is highly suspected, a negative result does not rule out the infection. Specimens from immunocompromised patients and those <5 years of age may show false negative results. In case of a contact investigation, please repeat 8-12 weeks after a known exposure. Normal [facility] Comment on above: Order Comment: Speci men Type: BLOOD SPECIMEN Ordering Facility: [facility] Address: [address] [place] [address] Performed By: #### I NFTBP #### [facility] CLIA [id number] [address] [place] [address] [place] TB NIL 0.09 IU/mL Normal <=8.00 [facility] Comment on above: Order Comment: Speci men Type: BLOOD SPECIMEN Ordering Facility: [facility] Address: [address] [place] [address] Performed By: #### I NFTBP #### [facility] CLIA [id number] [address] [place] [address] [place] TB1 AG MINUS NIL <0.00 Normal <0.35 [facility] Comment on above: Order Comment: Speci men Type: BLOOD SPECIMEN Ordering Facility: [facility] Address: [address] [place] [address] Performed By: #### I NFTBP #### [facility] CLIA [id number] [address] [place] [address] [place] TB2 AG MINUS NIL <0.00 Normal <0.35 [facility] Comment on above: Order Comment: Speci men Type: BLOOD SPECIMEN Ordering Facility: [facility] Address: [address] [place] [address] Performed By: #### I NFTBP #### [facility] CLIA [id number] [address] [place] [address] [place] CBC W Auto Differential pane l (Bld)on 04-07-2023 Anisocytosis Ql (Bld) Present Normal [facility] Comment on above: Order Comment: Specpatrick patel Type: BLOOD SPECIMEN Ordering Facility: [facility] Address: [address] [place] [address] Performed By: #### 5 7021-8 #### [facility] CLIA [id number] [address] [place] [address] [place] Basophils (Bld) [#/Vol] 0.18 10*3/uL High <0.11 [facility] Comment on above: Order Comment: Maryann patel Type: BLOOD SPECIMEN Ordering Facility: [facility] Address: [address] [place] [address] Performed By: #### 5 7021-8 #### [facility] CLIA [id number] [address] [place] [address] [place] Basophils/100 WBC (Bld) 1.7 % Normal [facility] Comment on above: Order Comment: Maryann patel Type: BLOOD SPECIMEN Ordering Facility: [facility] Address: [address] [place] [address] Performed By: #### 5 7021-8 #### [facility] CLIA [id number] [address] [place] [address] [place] Differential cell count method Nom (Bld) Manual Normal [facility] Comment on above: Order Comment: Skipi jorge Type: BLOOD SPECIMEN Ordering Facility: [facility] Address: [address] [place] [address] Performed By: #### 5 7021-8 #### [facility] CLIA [id number] [address] [place] [address] [place] Eosinophils (Bld) [#/Vol] 0.09 10*3/uL Normal <0.46 [facility] Comment on above: Order Comment: Skipi men Type: BLOOD SPECIMEN Ordering Facility: [facility] Address: [address] [place] [address] Performed By: #### 5 7021-8 #### [facility] CLIA [id number] [address] [place] [address] [place] Eosinophils/100 WBC (Bld) 0.9 % Normal [facility] Comment on above: Order Comment: Speci men Type: BLOOD SPECIMEN Ordering Facility: [facility] Address: [address] [place] [address] Performed By: #### 5 7021-8 #### [facility] CLIA [id number] [address] [place] [address] [place] Erythrocyte distribution width (RBC) [Ratio] 15.4 % High 11.5-15.0 [facility] Comment on above: Order Comment: Speci men Type: BLOOD SPECIMEN Ordering Facility: [facility] Address: [address] [place] [address] Performed By: #### 5 7021-8 #### [facility] CLIA [id number] [address] [place] [address] [place] Hematocrit (Bld) [Volume fraction] 39.6 % Normal 36.0-46.0 [facility] Comment on above: Order Comment: Speci men Type: BLOOD SPECIMEN Ordering Facility: [facility] Address: [address] [place] [address] Performed By: #### 5 7021-8 #### [facility] CLIA [id number] [address] [place] [address] [place] Hemoglobin (Bld) [Mass/Vol] 12.0 g/dL Normal 11.5-15.5 [facility] Comment on above: Order Comment: Speci men Type: BLOOD SPECIMEN Ordering Facility: [facility] Address: [address] [place] [address] Performed By: #### 5 7021-8 #### [facility] CLIA [id number] [address] [place] [address] [place] Lymphocytes (Bld) [#/Vol] 2.23 10*3/uL Normal 1.00-4.00 [facility] Comment on above: Order Comment: Speci men Type: BLOOD SPECIMEN Ordering Facility: [facility] Address: [address] [place] [address] Performed By: #### 5 7021-8 #### [facility] CLIA [id number] [address] [place] [address] [place] Lymphocytes/100 WBC (Bld) 21.6 % Normal [facility] Comment on above: Order Comment: Speci men Type: BLOOD SPECIMEN Ordering Facility: [facility] Address: [address] [place] [address] Performed By: #### 5 7021-8 #### [facility] CLIA [id number] [address] [place] [address] [place] MCH (RBC) [Entitic mass] 29.9 pg Normal 26.0-34.0 [facility] Comment on above: Order Comment: Speci men Type: BLOOD SPECIMEN Ordering Facility: [facility] Address: [address] [place] [address] Performed By: #### 5 7021-8 #### [facility] CLIA [id number] [address] [place] [address] [place] MCHC (RBC) [Mass/Vol] 30.3 g/dL Low 30.5-36.0 [facility] Comment on above: Order Comment: Speci men Type: BLOOD SPECIMEN Ordering Facility: [facility] Address: [address] [place] [address] Performed By: #### 5 7021-8 #### [facility] CLIA [id number] [address] [place] [address] [place] MCV (RBC) [Entitic vol] 98.8 fL Normal 80.0-100.0 [facility] Comment on above: Order Comment: Speci men Type: BLOOD SPECIMEN Ordering Facility: [facility] Address: [address] [place] [address] Performed By: #### 5 7021-8 #### [facility] CLIA [id number] [address] [place] [address] [place] Monocytes (Bld) [#/Vol] 1.96 10*3/uL High <0.87 [facility] Comment on above: Order Comment: Speci men Type: BLOOD SPECIMEN Ordering Facility: [facility] Address: [address] [place] [address] Performed By: #### 5 7021-8 #### [facility] CLIA [id number] [address] [place] [address] [place] Monocytes/100 WBC (Bld) 19.0 % Normal [facility] Comment on above: Order Comment: Speci men Type: BLOOD SPECIMEN Ordering Facility: [facility] Address: [address] [place] [address] Performed By: #### 5 7021-8 #### [facility] CLIA [id number] [address] [place] [address] [place] Neutrophils (Bld) [#/Vol] 5.87 10*3/uL Normal 1.45-7.50 [facility] Comment on above: Order Comment: Speci men Type: BLOOD SPECIMEN Ordering Facility: [facility] Address: [address] [place] [address] Performed By: #### 5 7021-8 #### [facility] CLIA [id number] [address] [place] [address] [place] Neutrophils/100 WBC (Bld) 56.8 % Normal [facility] Comment on above: Order Comment: Speci men Type: BLOOD SPECIMEN Ordering Facility: [facility] Address: [address] [place] [address] Performed By: #### 5 7021-8 #### [facility] CLIA [id number] [address] [place] [address] [place] Nucleated RBC (Bld) [#/Vol] 10*3/uL Normal <0.01 [facility] Comment on above: Order Comment: Speci men Type: BLOOD SPECIMEN Ordering Facility: [facility] Address: [address] [place] [address] Performed By: #### 5 7021-8 #### [facility] CLIA [id number] [address] [place] [address] [place] Nucleated RBC/100 WBC (Bld) [Ratio] 0.0 /100 WBC Normal [facility] Comment on above: Order Comment: Skipi men Type: BLOOD SPECIMEN Ordering Facility: [facility] Address: [address] [place] [address] Performed By: #### 5 7021-8 #### [facility] CLIA [id number] [address] [place] [address] [place] Ovalocytes LM Ql (Bld) Few Normal [facility] Comment on above: Order Comment: Skipi men Type: BLOOD SPECIMEN Ordering Facility: [facility] Address: [address] [place] [address] Performed By: #### 5 7021-8 #### [facility] CLIA [id number] [address] [place] [address] [place] Platelet mean volume (Bld) [Entitic vol] 11.7 fL Normal 9.0-12.7 [facility] Comment on above: Order Comment: Speci men Type: BLOOD SPECIMEN Ordering Facility: [facility] Address: [address] [place] [address] Performed By: #### 5 7021-8 #### [facility] CLIA [id number] [address] [place] [address] [place] Platelets (Bld) [#/Vol] 468 10*3/uL High 150-400 [facility] Comment on above: Order Comment: Speci men Type: BLOOD SPECIMEN Ordering Facility: [facility] Address: [address] [place] [address] Performed By: #### 5 7021-8 #### [facility] CLIA [id number] [address] [place] [address] [place] Platelets Estimate (Bld) [#/Vol] Increased Normal [facility] Comment on above: Order Comment: Speci men Type: BLOOD SPECIMEN Ordering Facility: [facility] Address: [address] [place] [address] Performed By: #### 5 7021-8 #### [facility] CLIA [id number] [address] [place] [address] [place] Polychromasia LM Ql (Bld) Slight Normal [facility] Comment on above: Order Comment: Speci men Type: BLOOD SPECIMEN Ordering Facility: [facility] Address: [address] [place] [address] Performed By: #### 5 7021-8 #### [facility] CLIA [id number] [address] [place] [address] [place] RBC (Bld) [#/Vol] 4.01 10*6/uL Normal 3.90-5.20 [facility] Comment on above: Order Comment: Speci men Type: BLOOD SPECIMEN Ordering Facility: [facility] Address: [address] [place] [address] Performed By: #### 5 7021-8 #### [facility] CLIA [id number] [address] [place] [address] [place] RED CELL MORPH Reviewed: see result s of individual morphologies Normal [facility] Comment on above: Order Comment: Speci men Type: BLOOD SPECIMEN Ordering Facility: [facility] Address: [address] [place] [address] Performed By: #### 5 7021-8 #### [facility] CLIA [id number] [address] [place] [address] [place] WBC (Bld) [#/Vol] 10.34 10*3/uL Normal 3.70-11.00 [facility] Comment on above: Order Comment: Speci men Type: BLOOD SPECIMEN Ordering Facility: [facility] Address: [address] [place] [address] Performed By: #### 5 7021-8 #### [facility] CLIA [id number] [address] [place] [address] [place] Comprehensive metabolic 2000 panelon 04-07-2023 Albumin [Mass/Vol] 3.8 g/dL Low 3.9-4.9 [facility] Comment on above: Order Comment: Speci men Type: BLOOD SPECIMEN Ordering Facility: [facility] Address: [address] [place] [address] Performed By: #### 2 4323-8 #### [facility] CLIA [id number] [address] [place] [address] [place] ALP [Catalytic activity/Vol] 121 U/L Normal 34-123 [facility] Comment on above: Order Comment: Speci men Type: BLOOD SPECIMEN Ordering Facility: [facility] Address: [address] [place] [address] Performed By: #### 2 4323-8 #### [facility] CLIA [id number] [address] [place] [address] [place] ALT [Catalytic activity/Vol] 10 U/L Normal 7-38 [facility] Comment on above: Order Comment: Speci men Type: BLOOD SPECIMEN Ordering Facility: [facility] Address: [address] [place] [address] Performed By: #### 2 4323-8 #### [facility] CLIA [id number] [address] [place] [address] [place] Anion gap [Moles/Vol] 14 mmol/L Normal 9-18 [facility] Comment on above: Order Comment: Speci men Type: BLOOD SPECIMEN Ordering Facility: [facility] Address: [address] [place] [address] Performed By: #### 2 4323-8 #### [facility] CLIA [id number] [address] [place] [address] [place] AST [Catalytic activity/Vol] 28 U/L Normal 13-35 [facility] Comment on above: Order Comment: Speci men Type: BLOOD SPECIMEN Ordering Facility: [facility] Address: [address] [place] [address] Performed By: #### 2 4323-8 #### [facility] CLIA [id number] [address] [place] [address] [place] Bilirubin [Mass/Vol] 0.4 mg/dL Normal 0.2-1.3 [facility] Comment on above: Order Comment: Speci men Type: BLOOD SPECIMEN Ordering Facility: [facility] Address: [address] [place] [address] Performed By: #### 2 4323-8 #### [facility] CLIA [id number] [address] [place] [address] [place] Calcium [Mass/Vol] 10.2 mg/dL Normal 8.5-10.2 [facility] Comment on above: Order Comment: Speci men Type: BLOOD SPECIMEN Ordering Facility: [facility] Address: [address] [place] [address] Performed By: #### 2 4323-8 #### [facility] CLIA [id number] [address] [place] [address] [place] Chloride [Moles/Vol] 103 mmol/L Normal 97-105 [facility] Comment on above: Order Comment: Speci men Type: BLOOD SPECIMEN Ordering Facility: [facility] Address: [address] [place], [place] [id number] Performed By: #### 2 4323-8 #### [facility] CLIA [id number] [address] [place] [address] [place] CO2 [Moles/Vol] 25 mmol/L Normal 22-30 [facility] Comment on above: Order Comment: Speci men Type: BLOOD SPECIMEN Ordering Facility: [facility] Address: [address] [place] [address] Performed By: #### 2 4323-8 #### [facility] CLIA [id number] [address] [place] [address] [place] Creatinine [Mass/Vol] 0.71 mg/dL Normal 0.58-0.96 [facility] Comment on above: Order Comment: Speci men Type: BLOOD SPECIMEN Ordering Facility: [facility] Address: [address] [place] [address] Performed By: #### 2 4323-8 #### [facility] CLIA [id number] [address] [place] [address] [place] Creatinine and Glomerular filtration rate.predicted panel (S/P/Bld) 84 mL/min/1.73m??? Normal >=60 [facility] Comment on above: Order Comment: Speci men Type: BLOOD SPECIMEN Ordering Facility: [facility] Address: [address] [place] [address] Result Comment: Kallie mated Glomerular Filtration Rate [...] GFR. Performed By: #### 2 4323-8 #### [facility] CLIA [id number] [address] [place] [address] [place] Glucose [Mass/Vol] 92 mg/dL Normal 74-99 [facility] Comment on above: Order Comment: Speci men Type: BLOOD SPECIMEN Ordering Facility: [facility] Address: [address] [place] [address] Result Comment: The [place] [employer] (ADA) provides guidance for cutoff [...] Standards of Medical Care in Diabetes 2016, [place] [employer]. Diabetes Care. 2016.39(Suppl 1). Performed By: #### 2 4323-8 #### [facility] CLIA [id number] [address] [place] [address] [place] Potassium [Moles/Vol] 4.2 mmol/L Normal 3.7-5.1 [facility] Comment on above: Order Comment: Speci men Type: BLOOD SPECIMEN Ordering Facility: [facility] Address: [address] [place] [address] Performed By: #### 2 432-8 #### [facility] CLIA [id number] [address] [place] [address] [place] Protein [Mass/Vol] 7.3 g/dL Normal 6.3-8.0 [facility] Comment on above: Order Comment: Speci men Type: BLOOD SPECIMEN Ordering Facility: [facility] Address: [address] [place] [address] Performed By: #### 2 4323-8 #### [facility] CLIA [id number] [address] [place] [address] [place] Sodium [Moles/Vol] 142 mmol/L Normal 136-144 [facility] Comment on above: Order Comment: Speci men Type: BLOOD SPECIMEN Ordering Facility: [facility] Address: [address] [place] [address] Performed By: #### 2 4323-8 #### [facility] CLIA [id number] [address] [place] Urea nitrogen [Mass/Vol] 14 mg/dL Normal 7-21 [facility] Comment on above: Order Comment: Speci men Type: BLOOD SPECIMEN Ordering Facility: [facility] Address: [address] [place] [address] Performed By: #### 2 4323-8 #### [facility] CLIA [id number] [address] [place] [address] [place] [address] [place] CHEST 1 VIEWon 03-31-2023 CHEST 1 VIEW [place] [address] Patient: HUYEN VALERIO I. Phone#: : 1940 Age: 82 Gender: F Pt. Type: Out Account: [id number] Location: [facility] Ordering: NORA LEMUS Exam Date: 03/31/2023/16:50 Family Phys: KIYA GIBBONSER Charge Code: [id number] Physician: Barber Order #: [id number] Dose#: PROCEDURE: X-RAY CHEST 1 VIEW COMPARISON: [facility], , CHEST 2 VIEWS, 03/13/2023, 11:20. INDICATIONS: [...] Gan MD on 03/31/2023 at 17:59 Normal [facility] CHEST 2 VIEWSon 03-31-2023 CHEST 2 VIEWS [place] [id number] Patient: HUYEN VALERIO I. Phone#: : 1940 Age: 82 Gender: F Pt. Type: Out Account: [id number] Location: [facility] Ordering: NORA LEMUS Exam Date: 03/31/2023/20:55 Family Phys: KIYA SALAZAR Charge Code: [id number] Physician: Barber Order #: [id number] Dose#: PROCEDURE: X-RAY CHEST 2 VIEWS COMPARISON: [facility], XR, CHEST 1 VIEW, 03/31/2023, 16:50. INDICATIONS: [...] Gan MD on 04/01/2023 at 8:55 Normal [facility] HEMATOCRITon 03-31-2023 Hematocrit (Bld) [Volume fraction] 37.3 % Normal 34.0 - 46.0 [facility] Comment on above: Result Comment: {HH] Performed By: #### 2 00977 #### [facility],[address] [place] [address] HEMOGLOBINon 03-31-2023 Hemoglobin (Bld) [Mass/Vol] 11.7 g/dL Low 12.0 - 16.0 [facility] Comment on above: Result Comment: {HH] Performed By: #### 2 93509 #### [facility],[address] [place], [place] [id number] CBC + DIFFon 03-13-2023 Baso # 0.10 x10EE3/UL Normal 0.00 - 0.10 [facility] Comment on above: Performed By: #### 2 42351 #### [facility],[address] [place] [address] Basophils/100 WBC (Bld) 0.6 % Normal 0.0 - 2.0 [facility] Comment on above: Performed By: #### 2 17907 #### [facility],[address] [place] [address] CBC + DIFF Normal [facility] Comment on above: Result Comment: CBC- COMPLETE BLOOD COUNT Performed By: #### 2 02697 #### [place] [address] EO # 0.10 x10EE3/UL Normal 0.00 - 0.50 [facility] Comment on above: Performed By: #### 2 75401 #### [place] [address] Eosinophils/100 WBC (Bld) 1.4 % Normal 0.0 - 7.0 [facility] Comment on above: Performed By: #### 2 10973 #### [place] [address] Erythrocyte distribution width (RBC) [Ratio] 18.5 % High 12.0 - 15.6 [facility] Comment on above: Performed By: #### 2 86245 #### [facility],[address] [place] [address] Hematocrit (Bld) [Volume fraction] 35.4 % Normal 34.0 - 46.0 [facility] Comment on above: Performed By: #### 2 38368 #### [facility],[address] [place] [address] Hemoglobin (Bld) [Mass/Vol] 11.1 g/dL Low 12.0 - 16.0 [facility] Comment on above: Performed By: #### 2 24220 #### [facility],[address] [place] [address] Lymph # 0.80 x10EE3/UL Normal 0.80 - 2.80 [facility] Comment on above: Performed By: #### 2 50806 #### [facility],[address] [place] [address] Lymphocytes/100 WBC (Bld) 8.0 % Low 20.0 - 45.0 [facility] Comment on above: Performed By: #### 2 18482 #### [facility],[address] [place] [address] MANUAL DIFF N/A Normal [facility] Comment on above: Performed By: #### 2 64312 #### [facility],[address] [place] [address] MCH (RBC) [Entitic mass] 31 pg Normal 27 - 33 [facility] Comment on above: Performed By: #### 2 86837 #### [facility],[address] [place] [address] MCHC 32 X10 3 Normal 32 - 36 [facility] Comment on above: Performed By: #### 2 22624 #### [facility],[address] [place] [address] MCV (RBC) [Entitic vol] 97 fL Normal 80 - 99 [facility] Comment on above: Performed By: #### 2 52740 #### [facility],[address] [place] [address] [place] # 1.10 x10EE3/UL High 0.20 - 1.00 [facility] Comment on above: Performed By: #### 2 71084 #### [facility],[address] [place] [address] MONOS % 11.6 % High 0.0 - 10.0 [facility] Comment on above: Performed By: #### 2 08089 #### [facility],[address] [place], [place] [phone] Morphology Sukhwinder (Bld) [Interp] N/A Normal [facility] Comment on above: Performed By: #### 2 31915 #### [facility],[address] [place] [address] Neut # 7.50 x10EE3/UL High 1.50 - 7.10 [facility] Comment on above: Performed By: #### 2 32734 #### [address] [address] Neutrophils/100 WBC (Bld) 78.4 % High 46.0 - 76.0 [facility] Comment on above: Performed By: #### 2 41599 #### [facility],[address] [place] [address] PLATELET 460 x10EE3/UL High 150 - 450 [facility] Comment on above: Performed By: #### 2 75569 #### [facility],[address] [place] [address] Platelet mean volume (Bld) [Entitic vol] 9.3 fL Normal 6.6 - 10.5 [facility] Comment on above: Result Comment: AUTO MATED DIFFERENTIAL Performed By: #### 2 93762 #### [address] [address] RBC 3.65 x 10EE6/UL Low 4.10 - 5.30 [facility] Comment on above: Performed By: #### 2 15247 #### [facility],[address] [place] [address] WBC 9.6 x 10EE3/UL Normal 4.5 - 10.8 [facility] Comment on above: Performed By: #### 2 68570 #### [facility],[address] [place] [address] CHEST 2 VIEWSon 03-13-2023 CHEST 2 VIEWS [place] [address] Patient: HUYEN VALERIO I. Phone#: : 1940 Age: 82 Gender: F Pt. Type: Out Account: [id number] Location: 2 Ordering: NORA LEMUS Exam Date: 03/13/2023/11:20 Family Phys: MILAGROS HUNTER Charge Code: [id number] Physician: Barber Order #: [id number] Dose#: PROCEDURE: X-RAY CHEST 2 VIEWS COMPARISON: [facility], XR, CHEST 2 VIEWS, 06/24/2018, 14:42. INDICATIONS: [...] Gan MD on 03/13/2023 at 11:47 Normal [facility] CMP with eGFRon 03-13-2023 AGE 82 years Normal [facility] Comment on above: Performed By: #### 2 08599 #### [facility],[address] [place] [address] Albumin [Mass/Vol] 3.4 g/dL Normal 3.4 - 5.0 [facility] Comment on above: Performed By: #### 2 45316 #### [facility],[address] [place] [address] Albumin/Globulin [Mass ratio] 1.0 {ratio} Normal 0.9 - 1.6 [facility] Comment on above: Performed By: #### 2 73714 #### [facility],[address] [place] [address] ALK PHOS 120 U/L High 46 - 116 [facility] Comment on above: Performed By: #### 2 68097 #### [facility],[address] [place] [address] ALT [Catalytic activity/Vol] 20 U/L Normal 14 - 59 [facility] Comment on above: Performed By: #### 2 23626 #### [facility],[address] [place] [address] Anion gap [Moles/Vol] 14 mmol/L Normal 10 - 20 [facility] Comment on above: Performed By: #### 2 80275 #### [facility],[address] [place] [address] AST [Catalytic activity/Vol] 39 U/L Normal 13 - 39 [facility] Comment on above: Performed By: #### 2 60012 #### [facility],[address] [place] [address] B/C RATIO 24 ratio Normal 0 - 30 [facility] Comment on above: Performed By: #### 2 56252 #### [facility],[address] [place] [address]862 Bilirubin [Mass/Vol] 0.3 mg/dL Normal 0.2 - 1.0 [facility] Comment on above: Performed By: #### 2 27388 #### [facility],[address] [place] [address] Calcium [Mass/Vol] 9.1 mg/dL Normal 8.5 - 10.1 [facility] Comment on above: Performed By: #### 2 76407 #### [facility],[address] [place] [address]106 Chloride [Moles/Vol] 107 mmol/L Normal 98 - 107 [facility] Comment on above: Performed By: #### 2 42667 #### [facility],[address] [place] [address]997 CMP with eGFR Normal [facility] Comment on above: Result Comment: COMP REHENSIVE METABOLIC PANEL Performed By: #### 2 62902 #### [facility],[address] [place] [address] 13870 CO2 [Moles/Vol] 28.0 mmol/L Normal 21.0 - 32.0 [facility] Comment on above: Performed By: #### 2 09224 #### [facility],[address] [place] [address] Creatinine [Mass/Vol] 0.66 mg/dL Normal 0.55 - 1.02 [facility] Comment on above: Performed By: #### 2 70937 #### [facility],[address] [place] [address]13 GFR/1.73 sq M.predicted among non-blacks MDRD (S/P/Bld) [Vol rate/Area] mL/min/{1.73_m2} Normal 60 - 999 [facility] Comment on above: Performed By: #### 2 72205 #### [facility],[address] [place] [address] Result Comment: ACCO RDING TO THE NATIONAL KIDNEY DISEASE EDUCATION PROGRAM(NKDE), A NORMAL eGFR IS A VALUE GREATER THAN OR EQUAL TO 60 ML/MIN/1.73 SQ METERS. CHRONIC KIDNEY DISEASE: <60mL/MIN/1.73 SQ METERS KIDNEY FAILURE: <15mL/MIN/1.73 SQ METERS THIS TEST SHOULD ONLY BE USED FOR PATIENTS 18 YEARS OF AGE AND OLDER. Globulin (S) [Mass/Vol] 3.3 g/dL Normal 1.5 - 3.8 [facility] Comment on above: Performed By: #### 2 99498 #### [facility],[address] [place] [address] Glucose [Mass/Vol] 102 mg/dL Normal 74 - 106 [facility] Comment on above: Performed By: #### 2 30015 #### [facility],[address] [place] [address] Potassium [Moles/Vol] 4.2 mmol/L Normal 3.5 - 5.1 [facility] Comment on above: Performed By: #### 2 03256 #### [address] [address] Protein [Mass/Vol] 6.7 g/dL Normal 6.4 - 8.2 [facility] Comment on above: Performed By: #### 2 13521 #### [facility],[address] [place] [address] Sodium [Moles/Vol] 145 mmol/L Normal 136 - 145 [facility] Comment on above: Performed By: #### 2 10857 #### [place] [phone] Urea nitrogen [Mass/Vol] 16 mg/dL Normal 7 - 18 [facility] Comment on above: Performed By: #### 2 67142 #### [facility],[address] [place], [place] [address] CBC W Auto Differential pane l (Bld)on 12-30-2022 Basophils (Bld) [#/Vol] 0.06 10*3/uL Normal <0.11 [facility] Comment on above: Order Comment: Speci men Type: BLOOD SPECIMEN Ordering Facility: [facility] Address: [address] [place] [address] Performed By: #### 5 7021-8 #### [facility] CLIA [id number] [address] [place] [address] [place] Basophils/100 WBC (Bld) 0.4 % Normal [facility] Comment on above: Order Comment: Speci men Type: BLOOD SPECIMEN Ordering Facility: [facility] Address: [address] [place] [address] Performed By: #### 5 7021-8 #### [facility] CLIA [id number] [address] [place] [address] [place] Differential cell count method Nom (Bld) Auto Normal [facility] Comment on above: Order Comment: Speci men Type: BLOOD SPECIMEN Ordering Facility: [facility] Address: [address] [place] [address] Performed By: #### 5 7021-8 #### [facility] CLIA [id number] [address] [place] [address] [place] Eosinophils (Bld) [#/Vol] 0.08 10*3/uL Normal <0.46 [facility] Comment on above: Order Comment: Speci men Type: BLOOD SPECIMEN Ordering Facility: [facility] Address: [address] [place] [address] Performed By: #### 5 7021-8 #### [facility] CLIA [id number] [address] [place] [address] [place] Eosinophils/100 WBC (Bld) 0.5 % Normal [facility] Comment on above: Order Comment: Speci men Type: BLOOD SPECIMEN Ordering Facility: [facility] Address: [address] [place] [address] Performed By: #### 5 7021-8 #### [facility] CLIA [id number] [address] [place] [address] [place] Erythrocyte distribution width (RBC) [Ratio] 15.9 % High 11.5-15.0 [facility] Comment on above: Order Comment: Speci men Type: BLOOD SPECIMEN Ordering Facility: [facility] Address: [address] [place] [address] Performed By: #### 5 7021-8 #### [facility] CLIA [id number] [address] [place] [address] [place] Hematocrit (Bld) [Volume fraction] 37.0 % Normal 36.0-46.0 [facility] Comment on above: Order Comment: Speci men Type: BLOOD SPECIMEN Ordering Facility: [facility] Address: [address] [place] [address] Performed By: #### 5 7021-8 #### [facility] CLIA [id number] [address] [place] [address] [place] Hemoglobin (Bld) [Mass/Vol] 11.4 g/dL Low 11.5-15.5 [facility] Comment on above: Order Comment: Speci men Type: BLOOD SPECIMEN Ordering Facility: [facility] Address: [address] [place] [address] Performed By: #### 5 7021-8 #### [facility] CLIA [id number] [address] [place] [address] [place] Immature granulocytes (Bld) [#/Vol] 0.20 10*3/uL High <0.10 [facility] Comment on above: Order Comment: Speci men Type: BLOOD SPECIMEN Ordering Facility: [facility] Address: [address] [place] [address] Performed By: #### 5 7021-8 #### [facility] CLIA [id number] [address] [place] [address] [place] Immature granulocytes/100 WBC (Bld) 1.2 % Normal [facility] Comment on above: Order Comment: Speci men Type: BLOOD SPECIMEN Ordering Facility: [facility] Address: [address] [place] [address] Performed By: #### 5 7021-8 #### [facility] CLIA [id number] [address] [place] [address] [place] Lymphocytes (Bld) [#/Vol] 1.54 10*3/uL Normal 1.00-4.00 [facility] Comment on above: Order Comment: Speci men Type: BLOOD SPECIMEN Ordering Facility: [facility] Address: [address] [place] [address] Performed By: #### 5 7021-8 #### [facility] CLIA [id number] [address] [place] [address] [place] Lymphocytes/100 WBC (Bld) 9.0 % Normal [facility] Comment on above: Order Comment: Speci men Type: BLOOD SPECIMEN Ordering Facility: [facility] Address: [address] [place] [address] Performed By: #### 5 7021-8 #### [facility] CLIA [id number] [address] [place] [address] [place] MCH (RBC) [Entitic mass] 28.9 pg Normal 26.0-34.0 [facility] Comment on above: Order Comment: Speci men Type: BLOOD SPECIMEN Ordering Facility: [facility] Address: [address] [place] [address] Performed By: #### 5 7021-8 #### [facility] CLIA [id number] [address] [place] [address] [place] MCHC (RBC) [Mass/Vol] 30.8 g/dL Normal 30.5-36.0 [facility] Comment on above: Order Comment: Speci men Type: BLOOD SPECIMEN Ordering Facility: [facility] Address: [address] [place] [address] Performed By: #### 5 7021-8 #### [facility] CLIA [id number] [address] [place] [address] [place] MCV (RBC) [Entitic vol] 93.7 fL Normal 80.0-100.0 [facility] Comment on above: Order Comment: Speci men Type: BLOOD SPECIMEN Ordering Facility: [facility] Address: [address] [place] [address] Performed By: #### 5 7021-8 #### [facility] CLIA [id number] [address] [place] [address] [place] Monocytes (Bld) [#/Vol] 0.81 10*3/uL Normal <0.87 [facility] Comment on above: Order Comment: Speci men Type: BLOOD SPECIMEN Ordering Facility: [facility] Address: [address] [place] [address] Performed By: #### 5 7021-8 #### [facility] CLIA [id number] [address] [place], [place] [address] [place] Monocytes/100 WBC (Bld) 4.7 % Normal [facility] Comment on above: Order Comment: Speci men Type: BLOOD SPECIMEN Ordering Facility: [facility] Address: [address] [place] [address] Performed By: #### 5 7021-8 #### [facility] CLIA [id number] [address] [place] [address] [place] Neutrophils (Bld) [#/Vol] 14.40 10*3/uL High 1.45-7.50 [facility] Comment on above: Order Comment: Speci men Type: BLOOD SPECIMEN Ordering Facility: [facility] Address: [address] [place] [address] Performed By: #### 5 7021-8 #### [facility] CLIA [id number] [address] [place] [address] [place] Neutrophils/100 WBC (Bld) 84.2 % Normal [facility] Comment on above: Order Comment: Speci men Type: BLOOD SPECIMEN Ordering Facility: [facility] Address: [address] [place] [address] Performed By: #### 5 7021-8 #### [facility] CLIA [id number] [address] [place] [address] [place] Nucleated RBC (Bld) [#/Vol] 10*3/uL Normal <0.01 [facility] Comment on above: Order Comment: Speci men Type: BLOOD SPECIMEN Ordering Facility: [facility] Address: [address] [place] [address] Performed By: #### 5 7021-8 #### [facility] CLIA [id number] [address] [place] [address] [place] Nucleated RBC/100 WBC (Bld) [Ratio] 0.0 /100 WBC Normal [facility] Comment on above: Order Comment: Speci men Type: BLOOD SPECIMEN Ordering Facility: [facility] Address: [address] [place] [address] Performed By: #### 5 7021-8 #### [facility] CLIA [id number] [address] [place] [address] [place] Platelet mean volume (Bld) [Entitic vol] 10.7 fL Normal 9.0-12.7 [facility] Comment on above: Order Comment: Speci men Type: BLOOD SPECIMEN Ordering Facility: [facility] Address: [address] [place] [address] Performed By: #### 5 7021-8 #### [facility] CLIA [id number] [address] [place] [address] [place] Platelets (Bld) [#/Vol] 722 10*3/uL High 150-400 [facility] Comment on above: Order Comment: Speci men Type: BLOOD SPECIMEN Ordering Facility: [facility] Address: [address] [place] [address] Performed By: #### 5 7021-8 #### [facility] CLIA [id number] [address] [place] [address] [place] RBC (Bld) [#/Vol] 3.95 10*6/uL Normal 3.90-5.20 [facility] Comment on above: Order Comment: Speci men Type: BLOOD SPECIMEN Ordering Facility: [facility] Address: [address] [place] [address] Performed By: #### 5 7021-8 #### [facility] CLIA [id number] [address] [place] [address] [place] WBC (Bld) [#/Vol] 17.09 10*3/uL High 3.70-11.00 [facility] Comment on above: Order Comment: Speci men Type: BLOOD SPECIMEN Ordering Facility: [facility] Address: [address] [place] [address] Performed By: #### 5 7021-8 #### [facility] CLIA [id number] [address] [place] [address] [place] Comprehensive metabolic 2000 panelon 12-30-2022 Albumin [Mass/Vol] 3.9 g/dL Normal 3.9-4.9 [facility] Comment on above: Order Comment: Speci men Type: BLOOD SPECIMEN Ordering Facility: [facility] Address: [address] [place] [address] Performed By: #### 2 4323-8 #### [facility] CLIA [id number] [address] [place] [address] [place] ALP [Catalytic activity/Vol] 206 U/L High 34-123 [facility] Comment on above: Order Comment: Speci men Type: BLOOD SPECIMEN Ordering Facility: [facility] Address: [address] [place] [address] Performed By: #### 2 4323-8 #### [facility] CLIA [id number] [address] [place] [address] [place] ALT [Catalytic activity/Vol] 14 U/L Normal 7-38 [facility] Comment on above: Order Comment: Speci men Type: BLOOD SPECIMEN Ordering Facility: [facility] Address: [address] [place] [address] Performed By: #### 2 4323-8 #### [facility] CLIA [id number] [address] [place] [address] [place] Anion gap [Moles/Vol] 12 mmol/L Normal 9-18 [facility] Comment on above: Order Comment: Speci men Type: BLOOD SPECIMEN Ordering Facility: [facility] Address: [address] [place], [place] [id number] Performed By: #### 2 4323-8 #### [facility] [facility] CLIA [id number] [address] [place] [address] [place] AST [Catalytic activity/Vol] 35 U/L Normal 13-35 [facility] Comment on above: Order Comment: Speci men Type: BLOOD SPECIMEN Ordering Facility: [facility] Address: [address] [place] [address] Performed By: #### 2 4323-8 #### [facility] CLIA [id number] [address] [place] [address] [place] Bilirubin [Mass/Vol] 0.5 mg/dL Normal 0.2-1.3 [facility] Comment on above: Order Comment: Speci men Type: BLOOD SPECIMEN Ordering Facility: [facility] Address: [address] [place] [address] Performed By: #### 2 4323-8 #### [facility] CLIA [id number] [address] [place] [address] [place] Calcium [Mass/Vol] 10.1 mg/dL Normal 8.5-10.2 [facility] Comment on above: Order Comment: Speci men Type: BLOOD SPECIMEN Ordering Facility: [facility] Address: [address] [place] [address] Performed By: #### 2 4323-8 #### [facility] CLIA [id number] [address] [place] [address] [place] Chloride [Moles/Vol] 100 mmol/L Normal 97-105 [facility] Comment on above: Order Comment: Speci men Type: BLOOD SPECIMEN Ordering Facility: [facility] Address: [address] [place] [address] Performed By: #### 2 4323-8 #### [facility] CLIA [id number] [address] [place] [address] [place] CO2 [Moles/Vol] 25 mmol/L Normal 22-30 [facility] Comment on above: Order Comment: Speci men Type: BLOOD SPECIMEN Ordering Facility: [facility] Address: [address] [place] [address] Performed By: #### 2 4323-8 #### [facility] CLIA [id number] [address] [place] [address] [place] Creatinine [Mass/Vol] 0.69 mg/dL Normal 0.58-0.96 [facility] Comment on above: Order Comment: Maryann patel Type: BLOOD SPECIMEN Ordering Facility: [facility] Address: [address] [place] [address] Performed By: #### 2 4323-8 #### [facility] CLIA [id number] [address] [place] [address] [place] [facility] Creatinine and Glomerular filtration rate.predicted panel (S/P/Bld) 86 mL/min/1.73m??? Normal >=60 [facility] Comment on above: Order Comment: Maryann patel Type: BLOOD SPECIMEN Ordering Facility: [facility] Address: [address] [place] [address] Result Comment: Kallie mated Glomerular Filtration Rate [...] GFR. Performed By: #### 2 4323-8 #### [facility] CLIA [id number] [address] [place] [address] [place] Glucose [Mass/Vol] 78 mg/dL Normal 74-99 [facility] Comment on above: Order Comment: Maryann patel Type: BLOOD SPECIMEN Ordering Facility: [facility] Address: [address] [place] [address] Result Comment: The [place] [employer] (ADA) provides guidance for cutoff [...] Standards of Medical Care in Diabetes 2016, [place] [employer]. Diabetes Care. 2016.39(Suppl 1). Performed By: #### 2 4323-8 #### [facility] CLIA [id number] [address] [place] [address] [place] Potassium [Moles/Vol] 5.0 mmol/L Normal 3.7-5.1 [facility] Comment on above: Order Comment: Speci men Type: BLOOD SPECIMEN Ordering Facility: [facility] Address: [address] [place] [address] Performed By: #### 2 4323-8 #### [facility] CLIA [id number] [address] [place] [address] [place] Protein [Mass/Vol] 7.0 g/dL Normal 6.3-8.0 [facility] Comment on above: Order Comment: Speci men Type: BLOOD SPECIMEN Ordering Facility: [facility] Address: [address] [place] [address] Performed By: #### 2 4323-8 #### [facility] CLIA [id number] [address] [place] [address] [place] Sodium [Moles/Vol] 137 mmol/L Normal 136-144 [facility] Comment on above: Order Comment: Speci men Type: BLOOD SPECIMEN Ordering Facility: [facility] Address: [address] [place] [address] Performed By: #### 2 4323-8 #### [facility] CLIA [id number] [address] [place] [address] [place] Urea nitrogen [Mass/Vol] 12 mg/dL Normal 7-21 [facility] Comment on above: Order Comment: Speci men Type: BLOOD SPECIMEN Ordering Facility: [facility] Address: [address] [place], [place] [address] Performed By: #### 2 4323-8 #### [facility] CLIA [id number] [address] [place] [address] [place] Absolute lymphocyte countOrd ered By: Tommy Vazquez on 11-27-2022 Lymphocytes Auto (Unsp spec) [#/Vol] 0.22 10*3/uL 0.83-4.51 [facility] Basophil percentageOrdered B y: Eb Kendrick on 11-27-2022 Chloride [Moles/Vol] 101 mmol/L 98-107 [facility] Glucose [Mass/Vol] 140 mg/dL 74-106 [facility] Comment on above: Fasting Glucose resu lt greater than or equal to 126 mg/dL suggests DIABETES MELLITUS per A.D.A. criteria. Potassium [Moles/Vol] 3.8 mmol/L 3.5-5.1 [facility] Sodium [Moles/Vol] 134 mmol/L 136-145 [facility] Basophil percentageOrdered B y: Tommy Vazquez on 11-27-2022 Basophil percentage 0 SEEN /hpf 0-5 [facility] Basophils/100 WBC (Bld) 0.4 % 0-1 [facility] Bilirubin [Mass/Vol] 0.80 mg/dL 0.20-1.00 [facility] Comment on above: For patients on eltr ombopag therapy, use of Dimension [place] TBIL is not recommended. Chloride [Moles/Vol] 102 mmol/L 98-107 [facility] Eosinophils/100 WBC (Bld) 0.2 % 0-5 [facility] Glucose [Mass/Vol] 162 mg/dL 74-106 [facility] Comment on above: Fasting Glucose resu lt greater than or equal to 126 mg/dL suggests DIABETES MELLITUS per A.D.A. criteria. Lactate [Moles/Vol] 1.7 mmol/L 0.4-2.0 [facility] Neutrophils (Bld) [#/Vol] 9.3 10*3/uL 2.0-7.7 [facility] Neutrophils/100 WBC (Bld) 90.7 % 47-70 [facility] Potassium [Moles/Vol] 3.9 mmol/L 3.5-5.1 [facility] Protein [Mass/Vol] 7.1 g/dL 6.4-8.2 [facility] Sodium [Moles/Vol] 136 mmol/L 136-145 [facility] WBC (Bld) [#/Vol] 10.2 10*3/uL 4.4-11.0 [facility] Bilirubin Test strip Ql (U)O rdered By: Tommy Vazquez on 11-27-2022 Bilirubin Ql (U) Negative Negative [facility] Blood erythrocytes count (nu mber/volume)Ordered By: Tommy Vazquez on 11-27-2022 RBC (Bld) [#/Vol] 4.13 10*6/uL 4.2-5.4 [facility] Blood hemoglobin measurement (mass/volume)Ordered By: Tommy Vazquez on 11-27-2022 Hemoglobin (Bld) [Mass/Vol] 12.3 g/dL 12.0-15.0 [facility] Blood lymphocytes/100 leukoc ytesOrdered By: Tommy Vazquez on 11-27-2022 Lymphocytes/100 WBC (Bld) 2.2 % 19-41 [facility] Blood manual differential co mment interpretation (narrative result)Ordered By: Tommy Vazquez on 11-27-2022 Manual differential comment Sukhwinder (Bld) [Interp] COMMENT [facility] Comment on above: LYMPHOPENIA. Blood monocytes/100 leukocyt esOrdered By: Tommy Vazquez on 11-27-2022 Monocytes/100 WBC (Bld) 5.7 % 0-10 [facility] Blood platelet mean volumeOr dered By: Tommy Vazquez on 11-27-2022 Platelet mean volume (Bld) [Entitic vol] 11.4 fL 6.2-12.0 [facility] Determination of erythrocyte mean corpuscular volume (MCV)Ordered By: Tommy Vazquez on 11-27-2022 MCV (RBC) [Entitic vol] 93.0 fL 81-99 [facility] Hematocrit Auto (Bld) [Volum e fraction]Ordered By: Tommy Vazquez on 11-27-2022 Hematocrit (Bld) [Volume fraction] 38.4 % 37-47 [facility] INR in Blood by Coagulation assayOrdered By: Tommy Vazquez on 11-27-2022 INR Coag (Bld) [Relative time] 0.9 {INR} [facility] Ketones Test strip Ql (U)Ord ered By: Tommy Vazquez on 11-27-2022 Ketones Ql (U) 15 mg/dl Negative [facility] Laboratory - Chemistry and C hemistry - challengeOrdered By: Eb Kendrick on 11-27-2022 CO2 [Moles/Vol] 27.0 mmol/L 21.0-32.0 [facility] Urea nitrogen/Creatinine [Mass ratio] 17.6 mg/mg 02-27 [facility] - Chemistry and C hemistry - challengeOrdered By: Tommybart Vazquez on 11-27-2022 ALP [Catalytic activity/Vol] 194 U/L 45-117 [facility] ALT [Catalytic activity/Vol] 21 U/L 13-56 [facility] CO2 [Moles/Vol] 27.0 mmol/L 21.0-32.0 [facility] Globulin (S) [Mass/Vol] 3.8 g/dL 2.2-4.2 [facility] Urea nitrogen/Creatinine [Mass ratio] 22.2 mg/mg 02-27 [facility] Laboratory - CoagulationOrde red By: Tommy Vazquez on 11-27-2022 aPTT Coag (Bld) [Time] 28.0 s 24.1-36.2 [facility] PT Coag (PPP) [Time] 12.0 s 11.7-14.9 [facility] - Hematology and Cell countsOrdered By: Tommy Vazquez on 11-27-2022 Erythrocyte distribution width (RBC) [Entitic vol] 49.3 fL 35.1-43.9 [facility] Erythrocyte distribution width (RBC) [Ratio] 14.6 % 11.6-14.6 [facility] Immature granulocytes/100 WBC (Bld) 0.800 % 0.0-0.9 [facility] Comment on above: IG% - Immature Granu locytes (promyelocytes, myelocytes and metamyelocytes) > 1% indicates that a LEFT SHIFT is Present. MCH (RBC) [Entitic mass] 29.8 pg 27.0-32.0 [facility] Nucleated RBC/100 WBC (Bld) [Ratio] 0 % 0-5 [facility] MCHC Auto (RBC) [Mass/Vol]Or dered By: Tommy Vazquez on 11-27-2022 MCHC (RBC) [Mass/Vol] 32.0 g/dL 32-36 [facility] Mucus LM Ql (Urine sed)Order ed By: Tommy Vazquez on 11-27-2022 Mucus Ql (Urine sed) 0 SEEN /hpf [facility] Nitrite Test strip Ql (U)Ord ered By: Tommy Vazquez on 11-27-2022 Nitrite Ql (U) Negative Negative [facility] No Panel InformationOrdered By: Eb Kendrick on 11-27-2022 Estimated Creatinine Clearance Calc 41.40 ml/min [facility] Estimated GFR (MDRD) Amer 88 mL/min >60 [facility] Comment on above: GFR Calc Estimated GFR (MDRD) Non-Af Amer 73 mL/min >60 [facility] Comment on above: Non- GFR Calc No Panel InformationOrdered By: Tommy Vazquez on 11-27-2022 Estimated Creatinine Clearance Calc 40.89 ml/min [facility] Estimated GFR (MDRD) Amer 87 mL/min >60 [facility] Comment on above: GFR Calc Estimated GFR (MDRD) Non-Af Amer 72 mL/min >60 [facility] Comment on above: Non- GFR Calc Platelets bldOrdered By: Tommy Vazquez on 11-27-2022 Platelets (Bld) [#/Vol] 262 10*3/uL 150-450 [facility] Protein Test strip Ql (U)Ord ered By: Tommy Vazquez on 11-27-2022 Protein Ql (U) 30 mg/dl Negative [facility] Serum or plasma albumin anay urement (mass/volume)Ordered By: Tommy Vazquez on 11-27-2022 Albumin [Mass/Vol] 3.3 g/dL 3.2-5.0 [facility] Serum or plasma albumin/glob ulin mass ratioOrdered By: Tommy Vazquez on 11-27-2022 Albumin/Globulin [Mass ratio] 0.9 {ratio} 0.9-2.4 [facility] Serum or plasma calcium anay urement (mass/volume)Ordered By: Eb Kendrick on 11-27-2022 Calcium [Mass/Vol] 8.7 mg/dL 8.5-10.1 [facility] Serum or plasma calcium anay urement (mass/volume)Ordered By: Tommy Vazquez on 11-27-2022 Calcium [Mass/Vol] 9.1 mg/dL 8.5-10.1 [facility] Serum or plasma creatinine m easurement (mass/volume)Ordered By: Eb Kendrick on 11-27-2022 Creatinine [Mass/Vol] 0.80 mg/dL 0.55-1.02 [facility] Comment on above: The validity of the calculated GFR & GFRAA in patients over 70 years has not been determined. Clinical correlation is essential. Serum or plasma creatinine m easurement (mass/volume)Ordered By: Tommy Vazquez on 11-27-2022 Creatinine [Mass/Vol] 0.81 mg/dL 0.55-1.02 [facility] Comment on above: The validity of the calculated GFR & GFRAA in patients over 70 years has not been determined. Clinical correlation is essential. Serum or plasma urea nitroge n measurement (mass/volume)Ordered By: Eb Kendrick on 11-27-2022 Urea nitrogen [Mass/Vol] 14 mg/dL 11-25 [facility] Serum or plasma urea nitroge n measurement (mass/volume)Ordered By: Tommy Vazquez on 11-27-2022 Urea nitrogen [Mass/Vol] 18 mg/dL 11-25 [facility] Squamous epithelial cells de tection in urine sediment by light microscopyOrdered By: Tommy Vazquez on 11-27-2022 Epithelial cells.squamous LM Ql (Urine sed) 0 SEEN /hpf 5-10 [facility] Thin prep Papanicolaou smear with manual screeningOrdered By: Eb Kendrick on 11-27-2022 Thin prep Papanicolaou smear with manual screening 6 - [facility] Thin prep Papanicolaou smear with manual screeningOrdered By: Tommy Vazquez on 11-27-2022 Thin prep Papanicolaou smear with manual screening 48 U/L 15-37 [facility] Thin prep Papanicolaou smear with manual screening 7 5-15 [facility] Urine blood detectionOrdered By: Tommy Vazquez on 11-27-2022 RBC Ql (U) 25 /ul Negative [facility] RBC Ql (U) 0-5 SEEN /hpf 0-5 [facility] Urine clarityOrdered By: Tommy Vazquez on 11-27-2022 Clarity (U) Clear Clear [facility] Urine color determinationOrd ered By: Tommy Vazquez on 11-27-2022 Color (U) Yellow Yellow [facility] Urine glucose detectionOrder ed By: Tommy Vazquez on 11-27-2022 Glucose Ql (U) Normal mg/dl Normal [facility] Urine leukocyte esterase det ection by dipstickOrdered By: Tommy Vazquez on 11-27-2022 Leukocyte esterase Test strip Ql (U) Negative Negative [facility] Urine pHOrdered By: Tommy arriaga on 11-27-2022 pH (U) 5.0 [pH] 5.0 - 8.0 [facility] Urine sediment bacteria coun t by microscopy (number/high power field)Ordered By: Tommy Vazquez on 11-27-2022 Bacteria LM.HPF (Urine sed) [#/Area] 0 /[HPF] None Seen [facility] Urine specific gravity measu rementOrdered By: Tommy Vazquez on 11-27-2022 Specific gravity (U) [Rel density] 1.020 1.002-1.03 0 [facility] Urobilinogen Auto test strip Ql (U)Ordered By: Tommy Vazquez on 11-27-2022 Urobilinogen Ql (U) 4 mg/dl Normal [facility] CBC W Auto Differential pane l (Bld)on 10-21-2022 Basophils (Bld) [#/Vol] 0.08 10*3/uL Normal <0.11 [facility] Comment on above: Order Comment: Speci men Type: BLOOD SPECIMEN Ordering Facility: [facility] Address: [address] [place], [place] [id number] Performed By: #### 5 7021-8 #### [facility] CLIA [id number] [address] [place] [address] [place] Basophils/100 WBC (Bld) 0.7 % Normal [facility] Comment on above: Order Comment: Speci men Type: BLOOD SPECIMEN Ordering Facility: [facility] Address: [address] [place] [address] Performed By: #### 5 7021-8 #### [facility] CLIA [id number] [address] [place] [address] [place] Differential cell count method Nom (Bld) Auto Normal [facility] Comment on above: Order Comment: Speci men Type: BLOOD SPECIMEN Ordering Facility: [facility] Address: [address] [place] [address] Performed By: #### 5 7021-8 #### [facility] CLIA [id number] [address] [place] [address] [place] Eosinophils (Bld) [#/Vol] 0.06 10*3/uL Normal <0.46 [facility] Comment on above: Order Comment: Speci men Type: BLOOD SPECIMEN Ordering Facility: [facility] Address: [address] [place] [address] Performed By: #### 5 7021-8 #### [facility] CLIA [id number] [address] [place] [address] [place] Eosinophils/100 WBC (Bld) 0.5 % Normal [facility] Comment on above: Order Comment: Speci men Type: BLOOD SPECIMEN Ordering Facility: [facility] Address: [address] [place] [address] Performed By: #### 5 7021-8 #### [facility] CLIA [id number] [address] [place] [address] [place] Erythrocyte distribution width (RBC) [Ratio] 15.4 % High 11.5-15.0 [facility] Comment on above: Order Comment: Speci men Type: BLOOD SPECIMEN Ordering Facility: [facility] Address: [address] [place] [address] Performed By: #### 5 7021-8 #### [facility] CLIA [id number] [address] [place] [address] [place] Hematocrit (Bld) [Volume fraction] 38.1 % Normal 36.0-46.0 [facility] Comment on above: Order Comment: Speci men Type: BLOOD SPECIMEN Ordering Facility: [facility] Address: [address] [place] [address] Performed By: #### 5 7021-8 #### [facility] CLIA [id number] [address] [place] [address] [place] Hemoglobin (Bld) [Mass/Vol] 11.3 g/dL Low 11.5-15.5 [facility] Comment on above: Order Comment: Speci men Type: BLOOD SPECIMEN Ordering Facility: [facility] Address: [address] [place] [address] Performed By: #### 5 7021-8 #### [facility] CLIA [id number] [address] [place] [address] [place] Immature granulocytes (Bld) [#/Vol] 0.08 10*3/uL Normal <0.10 [facility] Comment on above: Order Comment: Speci men Type: BLOOD SPECIMEN Ordering Facility: [facility] Address: [address] [place] [address] Performed By: #### 5 7021-8 #### [facility] CLIA [id number] [address] [place] [address] [place] Immature granulocytes/100 WBC (Bld) 0.7 % Normal [facility] Comment on above: Order Comment: Speci men Type: BLOOD SPECIMEN Ordering Facility: [facility] Address: [address] [place] [address] Performed By: #### 5 7021-8 #### [facility] CLIA [id number] [address] [place] [address] [place] Lymphocytes (Bld) [#/Vol] 0.86 10*3/uL Low 1.00-4.00 [facility] Comment on above: Order Comment: Speci men Type: BLOOD SPECIMEN Ordering Facility: [facility] Address: [address] [place] [address] Performed By: #### 5 7021-8 #### [facility] CLIA [id number] [address] [place] [address] [place] Lymphocytes/100 WBC (Bld) 7.4 % Normal [facility] Comment on above: Order Comment: Speci men Type: BLOOD SPECIMEN Ordering Facility: [facility] Address: [address] [place] [address] Performed By: #### 5 7021-8 #### [facility] CLIA [id number] [address] [place] [address] [place] MCH (RBC) [Entitic mass] 30.0 pg Normal 26.0-34.0 [facility] Comment on above: Order Comment: Speci men Type: BLOOD SPECIMEN Ordering Facility: [facility] Address: [address] [place] [address] Performed By: #### 5 7021-8 #### [facility] CLIA [id number] [address] [place] [address] [place] MCHC (RBC) [Mass/Vol] 29.7 g/dL Low 30.5-36.0 [facility] Comment on above: Order Comment: Speci men Type: BLOOD SPECIMEN Ordering Facility: [facility] Address: [address] [place] [address] Performed By: #### 5 7021-8 #### [facility] CLIA [id number] [address] [place] [address] [place] MCV (RBC) [Entitic vol] 101.1 fL High 80.0-100.0 [facility] Comment on above: Order Comment: Speci men Type: BLOOD SPECIMEN Ordering Facility: [facility] Address: [address] [place] [address] Performed By: #### 5 7021-8 #### [facility] CLIA [id number] [address] [place] [id number] [place] Monocytes (Bld) [#/Vol] 0.73 10*3/uL Normal <0.87 [facility] Comment on above: Order Comment: Speci men Type: BLOOD SPECIMEN Ordering Facility: [facility] Address: [address] [place] [address] Performed By: #### 5 7021-8 #### [facility] CLIA [id number] [address] [place] [address] [place] Monocytes/100 WBC (Bld) 6.2 % Normal [facility] Comment on above: Order Comment: Speci men Type: BLOOD SPECIMEN Ordering Facility: [facility] Address: [address] [place] [address] Performed By: #### 5 7021-8 #### [facility] CLIA [id number] [address] [place] [address] [place] Neutrophils (Bld) [#/Vol] 9.89 10*3/uL High 1.45-7.50 [facility] Comment on above: Order Comment: Speci men Type: BLOOD SPECIMEN Ordering Facility: [facility] Address: [address] [place] [address] Performed By: #### 5 7021-8 #### [facility] CLIA [id number] [address] [place] [address] [place] Neutrophils/100 WBC (Bld) 84.5 % Normal [facility] Comment on above: Order Comment: Speci men Type: BLOOD SPECIMEN Ordering Facility: [facility] Address: [address] [place] [address] Performed By: #### 5 7021-8 #### [facility] CLIA [id number] [address] [place] [id number] [place] Nucleated RBC (Bld) [#/Vol] 10*3/uL Normal <0.01 [facility] Comment on above: Order Comment: Speci men Type: BLOOD SPECIMEN Ordering Facility: [facility] Address: [address] [place] [address] Performed By: #### 5 7021-8 #### [facility] CLIA [id number] [address] [place] [address] [place] Nucleated RBC/100 WBC (Bld) [Ratio] 0.0 /100 WBC Normal [facility] Comment on above: Order Comment: Speci men Type: BLOOD SPECIMEN Ordering Facility: [facility] Address: [address] [place] [address] Performed By: #### 5 7021-8 #### [facility] CLIA [id number] [address] [place] [address] [place] Platelet mean volume (Bld) [Entitic vol] 12.0 fL Normal 9.0-12.7 [facility] Comment on above: Order Comment: Skipi men Type: BLOOD SPECIMEN Ordering Facility: [facility] Address: [address] [place] [address] Performed By: #### 5 7021-8 #### [facility] CLIA [id number] [address] [place] [address] [place] Platelets (Bld) [#/Vol] 440 10*3/uL High 150-400 [facility] Comment on above: Order Comment: Skipi men Type: BLOOD SPECIMEN Ordering Facility: [facility] Address: [address] [place] [address] Performed By: #### 5 7021-8 #### [facility] CLIA [id number] [address] [place] [address] [place] RBC (Bld) [#/Vol] 3.77 10*6/uL Low 3.90-5.20 [facility] Comment on above: Order Comment: Speci men Type: BLOOD SPECIMEN Ordering Facility: [facility] Address: [address] [place] [address] Performed By: #### 5 7021-8 #### [facility] CLIA [id number] [address] [id number] [place] WBC (Bld) [#/Vol] 11.70 10*3/uL High 3.70-11.00 [facility] Comment on above: Order Comment: Speci men Type: BLOOD SPECIMEN Ordering Facility: [facility] Address: [address] [place] [address] Performed By: #### 5 7021-8 #### [facility] CLIA [id number] [address] [place], [place] [address] [place] Comprehensive metabolic 2000 panelon 10-21-2022 Albumin [Mass/Vol] 4.0 g/dL Normal 3.9-4.9 [facility] Comment on above: Order Comment: Speci men Type: BLOOD SPECIMEN Ordering Facility: [facility] Address: [address] [place] [address] Performed By: #### 2 4323-8 #### [facility] CLIA [id number] [address] [place], [place] [address] [place] ALP [Catalytic activity/Vol] 133 U/L High 34-123 [facility] Comment on above: Order Comment: Speci men Type: BLOOD SPECIMEN Ordering Facility: [facility] Address: [address] [place] [address] Performed By: #### 2 4323-8 #### [facility] CLIA [id number] [address] [place], [place] [address] [place] ALT [Catalytic activity/Vol] 11 U/L Normal 7-38 [facility] Comment on above: Order Comment: Speci men Type: BLOOD SPECIMEN Ordering Facility: [facility] Address: [address] [place] [address] Performed By: #### 2 4323-8 #### [facility] CLIA [id number] [address] [place], [place] [address] [place] Anion gap [Moles/Vol] 12 mmol/L Normal 9-18 [facility] Comment on above: Order Comment: Speci men Type: BLOOD SPECIMEN Ordering Facility: [facility] Address: [address] [place], [place] [address] Performed By: #### 2 4323-8 #### [facility] CLIA [id number] [address] [place] [address] [place] AST [Catalytic activity/Vol] 33 U/L Normal 13-35 [facility] Comment on above: Order Comment: Speci men Type: BLOOD SPECIMEN Ordering Facility: [facility] Address: [address] [place] [address] Performed By: #### 2 4323-8 #### [facility] CLIA [id number] [address] [place] [address] [place] Bilirubin [Mass/Vol] 0.3 mg/dL Normal 0.2-1.3 [facility] Comment on above: Order Comment: Speci men Type: BLOOD SPECIMEN Ordering Facility: [facility] Address: [address] [place] [address] Performed By: #### 2 4323-8 #### [facility] CLIA [id number] [address] [place] [address] [place] Calcium [Mass/Vol] 10.2 mg/dL Normal 8.5-10.2 [facility] Comment on above: Order Comment: Speci men Type: BLOOD SPECIMEN Ordering Facility: [facility] Address: [address] [place], [place] [id number] Performed By: #### 2 4323-8 #### [facility] CLIA [id number] [address] [place] [address] [place] Chloride [Moles/Vol] 105 mmol/L Normal 97-105 [facility] Comment on above: Order Comment: Speci men Type: BLOOD SPECIMEN Ordering Facility: [facility] Address: [address] [place] [address] Performed By: #### 2 4323-8 #### [facility] CLIA [id number] [facility] [place] [address] [place] CO2 [Moles/Vol] 24 mmol/L Normal 22-30 [facility] Comment on above: Order Comment: Speci men Type: BLOOD SPECIMEN Ordering Facility: [facility] Address: [address] [place] [address] Performed By: #### 2 4323-8 #### [facility] CLIA [id number] [address] [place] [address] [place] Creatinine [Mass/Vol] 0.68 mg/dL Normal 0.58-0.96 [facility] Comment on above: Order Comment: Speci men Type: BLOOD SPECIMEN Ordering Facility: [facility] Address: [address] [place] [address] Performed By: #### 2 4323-8 #### [facility] CLIA [id number] [address] [place] [address] [place] ESTIMATED GLOMERULAR FILTRATION RATE 86 mL/min/1.73m??? Normal >=60 [facility] Comment on above: Order Comment: Speci men Type: BLOOD SPECIMEN Ordering Facility: [facility] Address: [address] [place] [address] Result Comment: Kallie mated Glomerular Filtration Rate [...] GFR. Performed By: #### 2 4323-8 #### [facility] CLIA [id number] [address] [place] [address] [place] Glucose [Mass/Vol] 92 mg/dL Normal 74-99 [facility] Comment on above: Order Comment: Speci men Type: BLOOD SPECIMEN Ordering Facility: [facility] Address: [address] [place] [address] Result Comment: The [place] [employer] (ADA) provides guidance for cutoff [...] Standards of Medical Care in Diabetes 2016, [place] [employer]. Diabetes Care. 2016.39(Suppl 1). Performed By: #### 2 4323-8 #### [facility] CLIA [id number] [address] [place] [address] [place] Potassium [Moles/Vol] 5.2 mmol/L High 3.7-5.1 [facility] Comment on above: Order Comment: Speci men Type: BLOOD SPECIMEN Ordering Facility: [facility] Address: [address] [place] [address] Performed By: #### 2 4323-8 #### [facility] CLIA [id number] [address] [place] [address] [place] Protein [Mass/Vol] 6.8 g/dL Normal 6.3-8.0 [facility] Comment on above: Order Comment: Speci men Type: BLOOD SPECIMEN Ordering Facility: [facility] Address: [address] [place] [address] Performed By: #### 2 4323-8 #### [facility] CLIA [id number] [address] [place] [address] [place] Sodium [Moles/Vol] 141 mmol/L Normal 136-144 [facility] Comment on above: Order Comment: Speci men Type: BLOOD SPECIMEN Ordering Facility: [facility] Address: [address] [place] [address] Performed By: #### 2 4323-8 #### [facility] CLIA [id number] [address] [place] [address] [place] Urea nitrogen [Mass/Vol] 14 mg/dL Normal 7-21 [facility] Comment on above: Order Comment: Speci men Type: BLOOD SPECIMEN Ordering Facility: [facility] Address: [address] [place] [address], [place] [address] Performed By: #### 2 4323-8 #### [facility] CLIA [id number] [address] [place] [address] [place] Absolute lymphocyte countOrd ered By: Adalberto Willingham on 10-17-2022 Lymphocytes Auto (Unsp spec) [#/Vol] 1.00 10*3/uL 0.83-4.51 [facility] Basophil percentageOrdered B y: Adalberto Willingham on 10-17-2022 Basophils/100 WBC (Bld) 1.5 % 0-1 [facility] Chloride [Moles/Vol] 107 mmol/L 98-107 [facility] Eosinophils/100 WBC (Bld) 3.4 % 0-5 [facility] Glucose [Mass/Vol] 88 mg/dL 74-106 [facility] Neutrophils (Bld) [#/Vol] 3.1 10*3/uL 2.0-7.7 [facility] Neutrophils/100 WBC (Bld) 55.8 % 47-70 [facility] Potassium [Moles/Vol] 4.6 mmol/L 3.5-5.1 [facility] Sodium [Moles/Vol] 143 mmol/L 136-145 [facility] WBC (Bld) [#/Vol] 5.5 10*3/uL 4.4-11.0 [facility] Blood erythrocytes count (nu mber/volume)Ordered By: Adalberto Willingham on 10-17-2022 RBC (Bld) [#/Vol] 3.22 10*6/uL 4.2-5.4 [facility] Blood hemoglobin measurement (mass/volume)Ordered By: Adalberto Willingham on 10-17-2022 Hemoglobin (Bld) [Mass/Vol] 9.7 g/dL 12.0-15.0 [facility] Blood lymphocytes/100 leukoc ytesOrdered By: Adalberto Willingham on 10-17-2022 Lymphocytes/100 WBC (Bld) 18.1 % 19-41 [facility] Blood monocytes/100 leukocyt esOrdered By: Adalberto Willingham on 10-17-2022 Monocytes/100 WBC (Bld) 20.1 % 0-10 [facility] Blood platelet mean volumeOr dered By: Adalberto Willingham on 10-17-2022 Platelet mean volume (Bld) [Entitic vol] 10.9 fL 6.2-12.0 [facility] Determination of erythrocyte mean corpuscular volume (MCV)Ordered By: Adalberto Willingham on 10-17-2022 MCV (RBC) [Entitic vol] 99.7 fL 81-99 [facility] Hematocrit Auto (Bld) [Volum e fraction]Ordered By: Adalberto Willingham on 10-17-2022 Hematocrit (Bld) [Volume fraction] 32.1 % 37-47 [facility] Laboratory - Chemistry and C hemistry - challengeOrdered By: Adalberto Willingham 10-17-2022 CO2 [Moles/Vol] 30.0 mmol/L 21.0-32.0 [facility] Urea nitrogen/Creatinine [Mass ratio] 33.0 mg/mg 10-20 [facility] Laboratory - Hematology and Cell countsOrdered By: Adalberto Willingham 10-17-2022 Erythrocyte distribution width (RBC) [Entitic vol] 56.6 fL 35.1-43.9 [facility] Erythrocyte distribution width (RBC) [Ratio] 15.6 % 11.6-14.6 [facility] Immature granulocytes/100 WBC (Bld) 1.100 % 0.0-0.9 [facility] Comment on above: IG% - Immature Granu locytes (promyelocytes, myelocytes and metamyelocytes) > 1% indicates that a LEFT SHIFT is Present. MCH (RBC) [Entitic mass] 30.1 pg 27.0-32.0 [facility] Nucleated RBC/100 WBC (Bld) [Ratio] 0 % 0-5 [facility] MCHC Auto (RBC) [Mass/Vol]Or dered By: Adalberto Willingham on 10-17-2022 MCHC (RBC) [Mass/Vol] 30.2 g/dL 32-36 [facility] No Panel InformationOrdered By: Adalberto Willingham on 10-17-2022 Estimated Creatinine Clearance Calc 33.12 ml/min [facility] Estimated GFR (MDRD) Amer 103 mL/min >60 [facility] Comment on above: GFR Calc Estimated GFR (MDRD) Non-Af Amer 85 mL/min >60 [facility] Comment on above: Non- GFR Calc Platelets bldOrdered By: Adalberto Willingham on 10-17-2022 Platelets (Bld) [#/Vol] 482 10*3/uL 150-450 [facility] Serum or plasma calcium anay urement (mass/volume)Ordered By: Adalberto Willingham on 10-17-2022 Calcium [Mass/Vol] 9.3 mg/dL 8.5-10.1 [facility] Serum or plasma creatinine m easurement (mass/volume)Ordered By: Adalberto Willingham on 10-17-2022 Creatinine [Mass/Vol] 0.70 mg/dL 0.55-1.02 [facility] Comment on above: The validity of the calculated GFR & GFRAA in patients over 70 years has not been determined. Clinical correlation is essential. Serum or plasma urea nitroge n measurement (mass/volume)Ordered By: Adalberto Willingham on 10-17-2022 Urea nitrogen [Mass/Vol] 23 mg/dL 7-18 [facility] Thin prep Papanicolaou smear with manual screeningOrdered By: Adalberto Willingham on 10-17-2022 Thin prep Papanicolaou smear with manual screening 6 5-15 [facility] COVID-19 virus antigen assay Ordered By: Adalberto Willingham on 10-06-2022 SARS-CoV-2 (COVID-19) Ag IA.rapid Ql (Resp) [facility] COVID-19 virus antigen assay Ordered By: Dr. Willingham on 10-06-2022 SARS-CoV-2 (COVID-19) Ag IA.rapid Ql (Resp) [facility] Absolute lymphocyte countOrd ered By: Dr. Willingham on 10-03-2022 Lymphocytes Auto (Unsp spec) [#/Vol] 0.51 10*3/uL 0.83-4.51 [facility] Basophil percentageOrdered B y: Dr. Willingham on 10-03-2022 Basophils/100 WBC (Bld) 0.3 % 0-1 [facility] Chloride [Moles/Vol] 111 mmol/L 98-107 [facility] Eosinophils/100 WBC (Bld) 1.8 % 0-5 [facility] Glucose [Mass/Vol] 99 mg/dL 74-106 [facility] Neutrophils (Bld) [#/Vol] 7.2 10*3/uL 2.0-7.7 [facility] Neutrophils/100 WBC (Bld) 79.5 % 47-70 [facility] Potassium [Moles/Vol] 4.3 mmol/L 3.5-5.1 [facility] Sodium [Moles/Vol] 142 mmol/L 136-145 [facility] WBC (Bld) [#/Vol] 9.1 10*3/uL 4.4-11.0 [facility] Blood erythrocytes count (nu mber/volume)Ordered By: Dr. Willingham on 10-03-2022 RBC (Bld) [#/Vol] 2.85 10*6/uL 4.2-5.4 [facility] Blood hemoglobin measurement (mass/volume)Ordered By: Dr. Willingham on 10-03-2022 Hemoglobin (Bld) [Mass/Vol] 8.8 g/dL 12.0-15.0 [facility] Blood lymphocytes/100 leukoc ytesOrdered By: Dr. Willingham on 10-03-2022 Lymphocytes/100 WBC (Bld) 5.6 % 19-41 [facility] Blood manual differential co mment interpretation (narrative result)Ordered By: Dr. Willingham on 10-03-2022 Manual differential comment Sukhwinder (Bld) [Interp] SCANNED [facility] Comment on above: LYMPHOPENIA Blood monocytes/100 leukocyt esOrdered By: Dr. Willingham on 10-03-2022 Monocytes/100 WBC (Bld) 11.7 % 0-10 [facility] Blood platelet mean volumeOr dered By: Dr. Willingham on 10-03-2022 Platelet mean volume (Bld) [Entitic vol] 12.1 fL 6.2-12.0 [facility] Determination of erythrocyte mean corpuscular volume (MCV)Ordered By: Dr. Willingham on 10-03-2022 MCV (RBC) [Entitic vol] 98.9 fL 81-99 [facility] Hematocrit Auto (Bld) [Volum e fraction]Ordered By: Dr. Willingham on 10-03-2022 Hematocrit (Bld) [Volume fraction] 28.2 % 37-47 [facility] Laboratory - Chemistry and C hemistry - challengeOrdered By: Dr. Willingham on 10-03-2022 CO2 [Moles/Vol] 27.0 mmol/L 21.0-32.0 [facility] Urea nitrogen/Creatinine [Mass ratio] 41.9 mg/mg 10-20 [facility] Laboratory - Hematology and Cell countsOrdered By: Dr. Willingham on 10-03-2022 Erythrocyte distribution width (RBC) [Entitic vol] 54.8 fL 35.1-43.9 [facility] Erythrocyte distribution width (RBC) [Ratio] 15.1 % 11.6-14.6 [facility] Immature granulocytes/100 WBC (Bld) 1.100 % 0.0-0.9 [facility] Comment on above: IG% - Immature Granu locytes (promyelocytes, myelocytes and metamyelocytes) > 1% indicates that a LEFT SHIFT is Present. MCH (RBC) [Entitic mass] 30.9 pg 27.0-32.0 [facility] Nucleated RBC/100 WBC (Bld) [Ratio] 0 % 0-5 [facility] MCHC Auto (RBC) [Mass/Vol]Or dered By: Dr. Willingham on 10-03-2022 MCHC (RBC) [Mass/Vol] 31.2 g/dL 32-36 [facility] No Panel InformationOrdered By: Dr. Willingham on 10-03-2022 Estimated Creatinine Clearance Calc 32.50 ml/min [facility] Estimated GFR (MDRD) Amer 151 mL/min >60 [facility] Comment on above: GFR Calc Estimated GFR (MDRD) Non-Af Amer 125 mL/min >60 [facility] Comment on above: Non- GFR Calc Platelets bldOrdered By: Dr. Willingham on 10-03-2022 Platelets (Bld) [#/Vol] 244 10*3/uL 150-450 [facility] Serum or plasma calcium anay urement (mass/volume)Ordered By: Dr. Willingham on 10-03-2022 Calcium [Mass/Vol] 8.6 mg/dL 8.5-10.1 [facility] Serum or plasma creatinine m easurement (mass/volume)Ordered By: Dr. Willingham on 10-03-2022 Creatinine [Mass/Vol] 0.50 mg/dL 0.55-1.02 [facility] Comment on above: The validity of the calculated GFR & GFRAA in patients over 70 years has not been determined. Clinical correlation is essential. Serum or plasma urea nitroge n measurement (mass/volume)Ordered By: Dr. Willingham on 10-03-2022 Urea nitrogen [Mass/Vol] 21 mg/dL 7-18 [facility] Thin prep Papanicolaou smear with manual screeningOrdered By: Dr. Willingham on 10-03-2022 Thin prep Papanicolaou smear with manual screening 4 5-15 [facility] Absolute lymphocyte countOrd ered By: Dr. Watson on 10-02-2022 Lymphocytes Auto (Unsp spec) [#/Vol] 0.38 10*3/uL 0.83-4.51 [facility] Basophil percentageOrdered B y: Dr. Watson on 10-02-2022 Basophil percentage 1.9 mg/dL 2.5-4.9 [facility] Basophils/100 WBC (Bld) 0.2 % 0-1 [facility] Bilirubin [Mass/Vol] 0.50 mg/dL 0.20-1.00 [facility] Comment on above: For patients on eltr ombopag therapy, use of Dimension [place] TBIL is not recommended. Chloride [Moles/Vol] 109 mmol/L 98-107 [facility] Eosinophils/100 WBC (Bld) 1.1 % 0-5 [facility] Glucose [Mass/Vol] 122 mg/dL 74-106 [facility] Comment on above: Fasting Glucose resu lt from 100 to 125 mg/dL suggests IMPAIRED HOMEOSTASIS per A.D.A. criteria. Neutrophils (Bld) [#/Vol] 8.7 10*3/uL 2.0-7.7 [facility] Neutrophils/100 WBC (Bld) 83.6 % 47-70 [facility] Potassium [Moles/Vol] 3.8 mmol/L 3.5-5.1 [facility] Protein [Mass/Vol] 5.0 g/dL 6.4-8.2 [facility] Sodium [Moles/Vol] 141 mmol/L 136-145 [facility] WBC (Bld) [#/Vol] 10.4 10*3/uL 4.4-11.0 [facility] Blood erythrocytes count (nu mber/volume)Ordered By: Dr. Watson on 10-02-2022 RBC (Bld) [#/Vol] 3.00 10*6/uL 4.2-5.4 [facility] Blood hemoglobin measurement (mass/volume)Ordered By: Dr. Watson on 10-02-2022 Hemoglobin (Bld) [Mass/Vol] 9.2 g/dL 12.0-15.0 [facility] Blood lymphocytes/100 leukoc ytesOrdered By: Dr. Watson on 10-02-2022 Lymphocytes/100 WBC (Bld) 3.7 % 19-41 [facility] Blood manual differential co mment interpretation (narrative result)Ordered By: Dr. Watson on 10-02-2022 Manual differential comment Sukhwinder (Bld) [Interp] SCANNED [facility] Comment on above: LYMPHOPENIA NOTED Blood monocytes/100 leukocyt esOrdered By: [address] Watson on 10-02-2022 Monocytes/100 WBC (Bld) 10.9 % 0-10 [facility] Blood platelet mean volumeOr dered By: Dr. Watson on 10-02-2022 Platelet mean volume (Bld) [Entitic vol] 11.9 fL 6.2-12.0 [facility] COVID-19 virus antigen assay Ordered By: Josephine Watson on 10-02-2022 SARS-CoV-2 (COVID-19) Ag IA.rapid Ql (Resp) [facility] COVID-19 virus antigen assay Ordered By: Dr. Watson on 10-02-2022 SARS-CoV-2 (COVID-19) Ag IA.rapid Ql (Resp) [facility] Determination of erythrocyte mean corpuscular volume (MCV)Ordered By: Dr. Watson on 10-02-2022 MCV (RBC) [Entitic vol] 97.3 fL 81-99 [facility] Hematocrit Auto (Bld) [Volum e fraction]Ordered By: Dr. Watson on 10-02-2022 Hematocrit (Bld) [Volume fraction] 29.2 % 37-47 [facility] Laboratory - Chemistry and C hemistry - challengeOrdered By: Dr. Watson on 10-02-2022 ALP [Catalytic activity/Vol] 74 U/L 45-117 [facility] ALT [Catalytic activity/Vol] 19 U/L 13-56 [facility] CO2 [Moles/Vol] 27.0 mmol/L 21.0-32.0 [facility] Globulin (S) [Mass/Vol] 2.9 g/dL 2.2-4.2 [facility] Urea nitrogen/Creatinine [Mass ratio] 27.0 mg/mg 10-20 [facility] Laboratory - Hematology and Cell countsOrdered By: Dr. Watson on 10-02-2022 Erythrocyte distribution width (RBC) [Entitic vol] 52.6 fL 35.1-43.9 [facility] Erythrocyte distribution width (RBC) [Ratio] 14.8 % 11.6-14.6 [facility] Immature granulocytes/100 WBC (Bld) 0.500 % 0.0-0.9 [facility] Comment on above: IG% - Immature Granu locytes (promyelocytes, myelocytes and metamyelocytes) > 1% indicates that a LEFT SHIFT is Present. MCH (RBC) [Entitic mass] 30.7 pg 27.0-32.0 [facility] Nucleated RBC/100 WBC (Bld) [Ratio] 0 % 0-5 [facility] MCHC Auto (RBC) [Mass/Vol]Or dered By: Dr. Watson on 10-02-2022 MCHC (RBC) [Mass/Vol] 31.5 g/dL 32-36 [facility] No Panel InformationOrdered By: Dr. Watson on 10-02-2022 Estimated Creatinine Clearance Calc 31.60 ml/min [facility] Estimated GFR (MDRD) Amer 96 mL/min >60 [facility] Comment on above: GFR Calc Estimated GFR (MDRD) Non-Af Amer 79 mL/min >60 [facility] Comment on above: Non- GFR Calc Platelets bldOrdered By: Dr. Watson on 10-02-2022 Platelets (Bld) [#/Vol] 199 10*3/uL 150-450 [facility] Serum or plasma albumin anay urement (mass/volume)Ordered By: Dr. Watson on 10-02-2022 Albumin [Mass/Vol] 2.1 g/dL 3.2-5.0 [facility] Serum or plasma albumin/glob ulin mass ratioOrdered By: Dr. Watson on 10-02-2022 Albumin/Globulin [Mass ratio] 0.7 {ratio} 0.9-2.4 [facility] Serum or plasma calcium anay urement (mass/volume)Ordered By: Dr. Watson on 10-02-2022 Calcium [Mass/Vol] 8.4 mg/dL 8.5-10.1 [facility] Serum or plasma creatinine m easurement (mass/volume)Ordered By: Dr. Watson on 10-02-2022 Creatinine [Mass/Vol] 0.74 mg/dL 0.55-1.02 [facility] Comment on above: The validity of the calculated GFR & GFRAA in patients over 70 years has not been determined. Clinical correlation is essential. Serum or plasma urea nitroge n measurement (mass/volume)Ordered By: Dr. Watson on 10-02-2022 Urea nitrogen [Mass/Vol] 20 mg/dL 7-18 [facility] Thin prep Papanicolaou smear with manual screeningOrdered By: Dr. Watson on 10-02-2022 Thin prep Papanicolaou smear with manual screening 69 U/L 15-37 [facility] Thin prep Papanicolaou smear with manual screening 5 5-15 [facility] Bilirubin Test strip Ql (U)O rdered By: Dr. Watson on 09-30-2022 Bilirubin Ql (U) Negative Negative [facility] Direct bilirubinOrdered By: Dr. Alaniz on 09-30-2022 Bilirubin.direct [Mass/Vol] 0.39 mg/dL 0.00-0.30 [facility] Ketones Test strip Ql (U)Ord ered By: Dr. Watson on 09-30-2022 Ketones Ql (U) 50 mg/dl Negative [facility] Laboratory - CoagulationOrde red By: Dr. Alaniz on 09-30-2022 aPTT Coag (Bld) [Time] 33.3 s 24.1-36.2 [facility] Nitrite Test strip Ql (U)Ord ered By: Dr. Watson on 09-30-2022 Nitrite Ql (U) Negative Negative [facility] [facility] No Panel InformationOrdered By: Dr. Watson on 09-30-2022 Vitamin D 25-Hydroxy 79.8 ng/mL [facility] Comment on above: Vitamin D 25(OH) Sta tus Range Deficiency <20 ng/mL (50nmol/L) Insufficiency 20 - 30 ng/mL (50 - 75 nmol/L) Sufficiency 30 - 100 ng/mL (75 - 250 nmol/L) Toxicity >100 ng/mL (>250 nmol/L) Protein Test strip Ql (U)Ord ered By: Dr. Watson on 09-30-2022 Protein Ql (U) Negative Negative [facility] Review by pathologistOrdered By: Dr. Hummel on 09-30-2022 Pathologist review Sukhwinder (Unsp spec) [Interp] Reviewed [facility] Comment on above: Previous reported re sult: September foll Edited by: RGOOD on 09/30/22:1252Neutrophilic leukocytosis.Clinical correlation necessary.Geoffrey Cristobal M.D. 09/30/22 AMENDED REPORT 09/30/22 1252 PATH REV previously reported as: Wendy neely Urine blood detectionOrdered By: Dr. Watson on 09-30-2022 RBC Ql (U) 10 /ul Negative [facility] Urine clarityOrdered By: Dr. Watson on 09-30-2022 Clarity (U) Clear Clear [facility] Urine color determinationOrd ered By: Dr. Watson on 09-30-2022 Color (U) Yellow Yellow [facility] Urine glucose detectionOrder ed By: Dr. Watson on 09-30-2022 Glucose Ql (U) Normal mg/dl Normal [facility] Urine leukocyte esterase det ection by dipstickOrdered By: Dr. Watson on 09-30-2022 Leukocyte esterase Test strip Ql (U) Negative Negative [facility] Urine pHOrdered By: Dr. Watson on 09-30-2022 pH (U) 7.0 [pH] 5.0 - 8.0 [facility] Urine specific gravity measu rementOrdered By: Dr. Watson on 09-30-2022 Specific gravity (U) [Rel density] 1.010 1.002-1.03 0 [facility] Urobilinogen Auto test strip Ql (U)Ordered By: Dr. Watson on 09-30-2022 Urobilinogen Ql (U) Normal mg/dl Normal [facility] Laboratory - Chemistry and C hemistry - challengeOrdered By: Dr. Hummel on 09-29-2022 Magnesium [Mass/Vol] 2.3 mg/dL 1.6-2.6 [facility] Laboratory - Drug toxicology Ordered By: Dr. Hoskins on 09-16-2022 Amphetamines Ql (U) Negative <1000 ng/mL [facility] Benzodiazepines Ql (U) Negative < 200 ng/mL [facility] Cannabinoids Screen Ql (U) Negative < 50 ng/mL [facility] Cocaine Ql (U) Negative < 300 ng/mL [facility] Opiates Ql (U) Negative < 300 ng/mL [facility] No Panel InformationOrdered By: Dr. Hoskins on 09-16-2022 MDMA (Ecstasy) Screen Negative < 500 ng/mL [facility] Miscellaneous Test See comment [facility] Comment on above: TEST RESULT LIMITSTr amadol Positive Dgieri=185 [place]am[place] [address] ng/mL Ulmcgk=100 ___ [facility] ORIGINAL REPORT ON FILE IN LAB CONTAINS ADDITIONAL TEST SITE INFORMATION. Urine Barbiturates Screen Negative < 200 ng/mL [facility] Urine Drug Screen Comment [facility] Comment on above: CONFIRMATORY TESTING FOR ALL [...] Urine Methadone Screen Negative < 300 ng/mL [facility] Urine phencyclidine (PCP) de tectionOrdered By: Dr. Hoskins on 09-16-2022 Phencyclidine Ql (U) Negative < 25 ng/mL [facility] Final Surgical Pathology Rep meera 05-21-2022 Final Surgical Pathology Report . Pathology Reports Accession: Collected Date/Time: Received Date/Time: Pathologist: [id number] 05/19/2022 10:06 EST 05/20/2022 11:23 EST MD MARISOL COATS Final Surgical Pathology Report DIAGNOSIS: A. STOMACH, BIOPSY: - REACTIVE GASTROPATHY WITH MINIMAL CHRONIC INFLAMMATION - NEGATIVE FOR H. PYLORI COMMENT: [facility] [id number] CLINICAL INFORMATION: Procedure: EGD WITH BIOPSY Preoperative [...] Electronically Signed by Pathology Report verified by [facility] MARISOL COATS MD Sign out Date: 05/21/2022 11:40 Performing Lab: [facility], [address] [place] [address] Pathology Dept Normal [facility] ([place]) Absolute lymphocyte countOrd ered By: Dr. Adler on 05-11-2022 Lymphocytes Auto (Unsp spec) [#/Vol] 0.83 10*3/uL 0.83-4.51 [facility] Basophil percentageOrdered B y: Dr. Adler on 01-01-2023 Basophil percentage 0 SEEN /hpf 0-5 [facility] Basophils/100 WBC (Bld) 0.5 % 0-1 [facility] Bilirubin [Mass/Vol] 0.40 mg/dL 0.20-1.00 [facility] Comment on above: For patients on eltr ombopag therapy, use of Dimension [place] TBIL is not recommended. Chloride [Moles/Vol] 111 mmol/L 98-107 [facility] Eosinophils/100 WBC (Bld) 0.5 % 0-5 [facility] Glucose [Mass/Vol] 106 mg/dL 74-106 [facility] Comment on above: Fasting Glucose resu lt from 100 to 125 mg/dL suggests IMPAIRED HOMEOSTASIS per A.D.A. criteria. Lactate [Moles/Vol] 0.9 mmol/L 0.4-2.0 [facility] Neutrophils (Bld) [#/Vol] 6.5 10*3/uL 2.0-7.7 [facility] Neutrophils/100 WBC (Bld) 75.9 % 47-70 [facility] Potassium [Moles/Vol] 3.9 mmol/L 3.5-5.1 [facility] Protein [Mass/Vol] 6.6 g/dL 6.4-8.2 [facility] Sodium [Moles/Vol] 144 mmol/L 136-145 [facility] WBC (Bld) [#/Vol] 8.6 10*3/uL 4.4-11.0 [facility] Bilirubin Test strip Ql (U)O rdered By: Dr. Adler on 05-11-2022 Bilirubin Ql (U) Negative Negative [facility] Blood erythrocytes count (nu mber/volume)Ordered By: Dr. Adler on 05-11-2022 RBC (Bld) [#/Vol] 4.29 10*6/uL 4.2-5.4 [facility] Blood hemoglobin measurement (mass/volume)Ordered By: Dr. Adler on 05-11-2022 Hemoglobin (Bld) [Mass/Vol] 13.1 g/dL 12.0-15.0 [facility] Blood lymphocytes/100 leukoc ytesOrdered By: Dr. Adler on 05-11-2022 Lymphocytes/100 WBC (Bld) 9.7 % 19-41 [facility] Blood monocytes/100 leukocyt esOrdered By: Dr. Adler on 05-11-2022 Monocytes/100 WBC (Bld) 12.8 % 0-10 [facility] Blood platelet mean volumeOr dered By: Dr. Adler on 05-11-2022 Platelet mean volume (Bld) [Entitic vol] 11.0 fL 6.2-12.0 [facility] Determination of erythrocyte mean corpuscular volume (MCV)Ordered By: Dr. Adler on 05-11-2022 MCV (RBC) [Entitic vol] 96.7 fL 81-99 [facility] Hematocrit Auto (Bld) [Volum e fraction]Ordered By: Dr. Adler on 05-11-2022 Hematocrit (Bld) [Volume fraction] 41.5 % 37-47 [facility] Ketones Test strip Ql (U)Ord ered By: Dr. Adler on 05-11-2022 Ketones Ql (U) Negative Negative [facility] Laboratory - Chemistry and C hemistry - challengeOrdered By: Dr. Adler on 05-11-2022 ALP [Catalytic activity/Vol] 98 U/L 45-117 [facility] ALT [Catalytic activity/Vol] 18 U/L 13-56 [facility] CO2 [Moles/Vol] 30.0 mmol/L 21.0-32.0 [facility] Globulin (S) [Mass/Vol] 3.4 g/dL 2.2-4.2 [facility] Urea nitrogen/Creatinine [Mass ratio] 15.5 mg/mg 10-20 [facility] Laboratory - Hematology and Cell countsOrdered By: Dr. Adler on 05-11-2022 Erythrocyte distribution width (RBC) [Entitic vol] 49.5 fL 35.1-43.9 [facility] Erythrocyte distribution width (RBC) [Ratio] 14.1 % 11.6-14.6 [facility] Immature granulocytes/100 WBC (Bld) 0.600 % 0.0-0.9 [facility] Comment on above: IG% - Immature Granu locytes (promyelocytes, myelocytes and metamyelocytes) > 1% indicates that a LEFT SHIFT is Present. MCH (RBC) [Entitic mass] 30.5 pg 27.0-32.0 [facility] Nucleated RBC/100 WBC (Bld) [Ratio] 0 % 0-5 [facility] MCHC Auto (RBC) [Mass/Vol]Or dered By: Dr. Adler on 05-11-2022 MCHC (RBC) [Mass/Vol] 31.6 g/dL 32-36 [facility] Mucus LM Ql (Urine sed)Order ed By: Dr. Adler on 05-11-2022 Mucus Ql (Urine sed) 0 SEEN /hpf [facility] Nitrite Test strip Ql (U)Ord ered By: Dr. Adler on 05-11-2022 Nitrite Ql (U) Negative Negative [facility] No Panel InformationOrdered By: Dr. Adler on 05-11-2022 Estimated Creatinine Clearance Calc 33.27 ml/min [facility] Estimated GFR (MDRD) Amer 92 mL/min >60 [facility] Comment on above: GFR Calc Estimated GFR (MDRD) Non-Af Amer 76 mL/min >60 [facility] Comment on above: Non- GFR Calc Platelets bldOrdered By: Dr. Adler on 05-11-2022 Platelets (Bld) [#/Vol] 343 10*3/uL 150-450 [facility] Protein Test strip Ql (U)Ord ered By: Dr. Adler on 05-11-2022 Protein Ql (U) Negative Negative [facility] Serum or plasma albumin anay urement (mass/volume)Ordered By: Dr. Adler on 05-11-2022 Albumin [Mass/Vol] 3.2 g/dL 3.2-5.0 [facility] Serum or plasma albumin/glob ulin mass ratioOrdered By: Dr. Adler on 05-11-2022 Albumin/Globulin [Mass ratio] 0.9 {ratio} 0.9-2.4 [facility] Serum or plasma calcium anay urement (mass/volume)Ordered By: Dr. Adelr on 05-11-2022 Calcium [Mass/Vol] 9.1 mg/dL 8.5-10.1 [facility] Serum or plasma creatinine m easurement (mass/volume)Ordered By: Dr. Adler on 05-11-2022 Creatinine [Mass/Vol] 0.77 mg/dL 0.55-1.02 [facility] Comment on above: The validity of the calculated GFR & GFRAA in patients over 70 years has not been determined. Clinical correlation is essential. Serum or plasma urea nitroge n measurement (mass/volume)Ordered By: Dr. Adler on 05-11-2022 Urea nitrogen [Mass/Vol] 12 mg/dL 7-18 [facility] Squamous epithelial cells de tection in urine sediment by light microscopyOrdered By: Dr. Adler on 05-11-2022 Epithelial cells.squamous LM Ql (Urine sed) 0-5 SEEN /hpf 5-10 [facility] Thin prep Papanicolaou smear with manual screeningOrdered By: Dr. Adler on 05-11-2022 Thin prep Papanicolaou smear with manual screening 27 U/L 15-37 [facility] Thin prep Papanicolaou smear with manual screening 3 5-15 [facility] Urine blood detectionOrdered By: Dr. Adler on 05-11-2022 RBC Ql (U) 250 /ul Negative [facility] RBC Ql (U) 10-25 SEEN /hpf 0-5 [facility] Urine clarityOrdered By: Dr. Adler on 05-11-2022 Clarity (U) Clear Clear [facility] Urine color determinationOrd ered By: Dr. Adler on 05-11-2022 Color (U) Yellow Yellow [facility] Urine glucose detectionOrder ed By: Dr. Adler on 05-11-2022 Glucose Ql (U) Normal mg/dl Normal [facility] Urine leukocyte esterase det ection by dipstickOrdered By: Dr. Adler on 05-11-2022 Leukocyte esterase Test strip Ql (U) 25 /ul Negative [facility] Urine pHOrdered By: Dr. Nati richardson on 05-11-2022 pH (U) 7.0 [pH] 5.0 - 8.0 [facility] Urine sediment bacteria coun t by microscopy (number/high power field)Ordered By: Dr. Adler on 05-11-2022 Bacteria LM.HPF (Urine sed) [#/Area] 0 /[HPF] None Seen [facility] Urine specific gravity measu rementOrdered By: Dr. Adler on 05-11-2022 Specific gravity (U) [Rel density] 1.015 1.002-1.03 0 [facility] Urobilinogen Auto test strip Ql (U)Ordered By: Dr. 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 Manning on 05-04-2022 Lymphocytes Auto (Unsp spec) [#/Vol] 0.71 10*3/uL 0.83-4.51 [facility] Basophil percentageOrdered B y: Dr. Manning on 05-04-2022 Basophil percentage 50-100 SEEN /hpf 0-5 [facility] Basophils/100 WBC (Bld) 0.5 % 0-1 [facility] Bilirubin [Mass/Vol] 0.60 mg/dL 0.20-1.00 [facility] Comment on above: For patients on eltr ombopag therapy, use of Dim[place] TBIL is not recommended. Chloride [Moles/Vol] 107 mmol/L 98-107 [facility] Eosinophils/100 WBC (Bld) 0.9 % 0-5 [facility] Glucose [Mass/Vol] 94 mg/dL 74-106 [facility] Neutrophils (Bld) [#/Vol] 6.9 10*3/uL 2.0-7.7 [facility] Neutrophils/100 WBC (Bld) 77.7 % 47-70 [facility] Potassium [Moles/Vol] 3.8 mmol/L 3.5-5.1 [facility] Protein [Mass/Vol] 7.0 g/dL 6.4-8.2 [facility] Sodium [Moles/Vol] 142 mmol/L 136-145 [facility] WBC (Bld) [#/Vol] 8.8 10*3/uL 4.4-11.0 [facility] Bilirubin Test strip Ql (U)O rdered By: Dr. Manning on 05-04-2022 Bilirubin Ql (U) Negative Negative [facility] Blood erythrocytes count (nu mber/volume)Ordered By: Dr. Manning on 05-04-2022 RBC (Bld) [#/Vol] 4.26 10*6/uL 4.2-5.4 [facility] Blood hemoglobin measurement (mass/volume)Ordered By: Dr. Manning on 05-04-2022 Hemoglobin (Bld) [Mass/Vol] 13.0 g/dL 12.0-15.0 [facility] Blood lymphocytes/100 leukoc ytesOrdered By: Dr. Manning on 05-04-2022 Lymphocytes/100 WBC (Bld) 8.0 % 19-41 [facility] Blood monocytes/100 leukocyt esOrdered By: Dr. Manning on 05-04-2022 Monocytes/100 WBC (Bld) 12.2 % 0-10 [facility] Blood platelet mean volumeOr dered By: Dr. Manning on 05-04-2022 Platelet mean volume (Bld) [Entitic vol] 10.6 fL 6.2-12.0 [facility] COVID-19 virus antigen assay Ordered By: Dr. Manning on 05-04-2022 SARS-CoV-2 (COVID-19) Ag IA.rapid Ql (Resp) [facility] Determination of erythrocyte mean corpuscular volume (MCV)Ordered By: Dr. Manning on 05-04-2022 MCV (RBC) [Entitic vol] 97.2 fL 81-99 [facility] Hematocrit Auto (Bld) [Volum e fraction]Ordered By: Dr. Manning on 05-04-2022 Hematocrit (Bld) [Volume fraction] 41.4 % 37-47 [facility] Ketones Test strip Ql (U)Ord ered By: Dr. Manning on 05-04-2022 Ketones Ql (U) Negative Negative [facility] Laboratory - Chemistry and C hemistry - challengeOrdered By: Dr. Manning on 05-04-2022 ALP [Catalytic activity/Vol] 109 U/L 45-117 [facility] ALT [Catalytic activity/Vol] 22 U/L 13-56 [facility] CO2 [Moles/Vol] 29.0 mmol/L 21.0-32.0 [facility] Globulin (S) [Mass/Vol] 3.6 g/dL 2.2-4.2 [facility] Lipase [Catalytic activity/Vol] 103 U/L 73-393 [facility] Urea nitrogen/Creatinine [Mass ratio] 21.6 mg/mg 10-20 [facility] Laboratory - Hematology and Cell countsOrdered By: Dr. Manning on 05-04-2022 Erythrocyte distribution width (RBC) [Entitic vol] 51.4 fL 35.1-43.9 [facility] Erythrocyte distribution width (RBC) [Ratio] 14.6 % 11.6-14.6 [facility] Immature granulocytes/100 WBC (Bld) 0.700 % 0.0-0.9 [facility] Comment on above: IG% - Immature Granu locytes (promyelocytes, myelocytes and metamyelocytes) > 1% indicates that a LEFT SHIFT is Present. MCH (RBC) [Entitic mass] 30.5 pg 27.0-32.0 [facility] Nucleated RBC/100 WBC (Bld) [Ratio] 0 % 0-5 [facility] MCHC Auto (RBC) [Mass/Vol]Or dered By: Dr. Manning on 05-04-2022 MCHC (RBC) [Mass/Vol] 31.4 g/dL 32-36 [facility] Mucus LM Ql (Urine sed)Order ed By: Dr. Manning on 05-04-2022 Mucus Ql (Urine sed) 0 SEEN /hpf [facility] Nitrite Test strip Ql (U)Ord ered By: Dr. Manning on 05-04-2022 Nitrite Ql (U) Negative Negative [facility] No Panel InformationOrdered By: Dr. Manning on 05-04-2022 Estimated Creatinine Clearance Calc 40.82 ml/min [facility] Estimated GFR (MDRD) Amer 84 mL/min >60 [facility] Comment on above: GFR Calc Estimated GFR (MDRD) Non-Af Amer 70 mL/min >60 [facility] Comment on above: Non- GFR Calc Platelets bldOrdered By: Dr. Manning on 05-04-2022 Platelets (Bld) [#/Vol] 357 10*3/uL 150-450 [facility] Protein Test strip Ql (U)Ord ered By: Dr. Manning on 05-04-2022 Protein Ql (U) 30 mg/dl Negative [facility] Serum or plasma albumin anay urement (mass/volume)Ordered By: Dr. Manning on 05-04-2022 Albumin [Mass/Vol] 3.4 g/dL 3.2-5.0 [facility] Serum or plasma albumin/glob ulin mass ratioOrdered By: Dr. Manning on 05-04-2022 Albumin/Globulin [Mass ratio] 0.9 {ratio} 0.9-2.4 [facility] Serum or plasma calcium anay urement (mass/volume)Ordered By: Dr. Manning on 05-04-2022 Calcium [Mass/Vol] 9.7 mg/dL 8.5-10.1 [facility] Serum or plasma creatinine m easurement (mass/volume)Ordered By: Dr. Manning on 05-04-2022 Creatinine [Mass/Vol] 0.83 mg/dL 0.55-1.02 [facility] Comment on above: The validity of the calculated GFR & GFRAA in patients over 70 years has not been determined. Clinical correlation is essential. Serum or plasma urea nitroge n measurement (mass/volume)Ordered By: Dr. Manning on 05-04-2022 Urea nitrogen [Mass/Vol] 18 mg/dL 7-18 [facility] Squamous epithelial cells de tection in urine sediment by light microscopyOrdered By: Dr. Manning on 05-04-2022 Epithelial cells.squamous LM Ql (Urine sed) 0-5 SEEN /hpf 5-10 [facility] Thin prep Papanicolaou smear with manual screeningOrdered By: Dr. Manning on 05-04-2022 Thin prep Papanicolaou smear with manual screening 38 U/L 15-37 [facility] Thin prep Papanicolaou smear with manual screening 6 5-15 [facility] Urine blood detectionOrdered By: Dr. Manning on 05-04-2022 RBC Ql (U) 50 /ul Negative [facility] RBC Ql (U) 0-5 SEEN /hpf 0-5 [facility] Urine clarityOrdered By: Dr. Manning on 05-04-2022 Clarity (U) Sl. Cloudy Clear [facility] Urine color determinationOrd ered By: Dr. Manning on 05-04-2022 Color (U) Yellow Yellow [facility] Urine glucose detectionOrder ed By: Dr. Manning on 05-04-2022 Glucose Ql (U) Normal mg/dl Normal [facility] Urine leukocyte esterase det ection by dipstickOrdered By: Dr. aMnning on 05-04-2022 Leukocyte esterase Test strip Ql (U) 500 /ul Negative [facility] Urine pHOrdered By: Dr. Manning o n 05-04-2022 pH (U) 5.0 [pH] 5.0 - 8.0 [facility] Urine sediment bacteria coun t by microscopy (number/high power field)Ordered By: Dr. Manning on 05-04-2022 Bacteria LM.HPF (Urine sed) [#/Area] 3 /[HPF] None Seen [facility] Urine specific gravity measu rementOrdered By: Dr. Manning on 05-04-2022 Specific gravity (U) [Rel density] 1.020 1.002-1.03 0 [facility] Urobilinogen Auto test strip Ql (U)Ordered By: Dr. Manning on 05-04-2022 Urobilinogen Ql (U) Normal mg/dl Normal [facility] EMERGENCY REPORTon 2 EMERGENCY REPORT [facility] EMERGENCY ROOM REPORT NAME ACCOUNT SEX AGE ADMIT DISCHARGE PT MED. RECORD# NUMBER DATE DATE TYPE HUYEN VALERIO I [id number] F [id number] 04/27/22 04/27/22 3 [id number] ROOM: ER DATE OF : 1940 DICTATING [...] Lorenzo Monahan MD 04/27/22 13:04 JOB #: [id number] Transcribed By: [email or web address] 04/28/22 09:00 Electronically signed by: IVIS Monahan M.D. 05/02/22 07:09 Page 2 of 2 HUYEN VALERIO I Emergency Room Report Normal [facility] CORONAVIRUS (SARS) ANTIGEN T ESTon 04-27-2022 EXTERNAL QC DONE? YES Normal [facility] Comment on above: Performed By: #### [id number] #### [facility],[address] [place] [address] INTERNAL CONTROL PASS Normal [facility] Comment on above: Performed By: #### 2 [id number] #### [facility],[address] [place] [id number] SARS ANTIGEN Positive Abnormal NORMAL: NEGATIVE [facility] Comment on above: Result Comment: { CA LLED TO FELIBERTO/KYLAH 1249 { READ BACK BY [id number] Performed By: #### 2 [id number] #### [facility],[address] [place] [id number] SEND TO ? YES Normal [facility] Comment on above: Result Comment: SARS -CoV-2 THIS TEST IS BEING USED UNDER THE FDA EUA PROCEDURE. THIS ASSAY HAS BEEN VALIDATED AT [facility] FOR USE WITH NASAL AND NASOPHARYNGEAL [...] PUBLIC HEALTH AUTHORITIES. Performed By: #### 2 [id number] #### [facility],[address] [address] Laboratory - Drug toxicology on 01-28-2022 Amphetamines Ql (U) Negative <1000 ng/mL [facility] Work Phone: [phone] Benzodiazepines Ql (U) Negative < 200 ng/mL [facility] Work Phone: [phone] Cannabinoids Screen Ql (U) Negative < 50 ng/mL [facility] Work Phone: [phone] Cocaine Ql (U) Negative < 300 ng/mL [facility] Work Phone: [phone] Opiates Ql (U) Negative < 300 ng/mL [facility] Work Phone: [phone] No Panel Informationon 01-28 MDMA (Ecstasy) Screen Negative < 500 ng/mL [facility] Work Phone: [phone] Miscellaneous Test See comment [facility] Work Phone: [phone] Comment on above: TEST RESULT LIMITSTr amadol Positive Qpladd=225 Tramadol Conf, [place], [place] >[id number] Aohmxe=100 ___ TESTING PERFORMED AT [facility]. ORIGINAL REPORT ON FILE IN LAB CONTAINS ADDITIONAL TEST SITE INFORMATION. Urine Barbiturates Screen Negative < 200 ng/mL [facility] Work Phone: [phone] Urine Drug Screen Comment [facility] Work Phone: [phone] Comment on above: CONFIRMATORY TESTING FOR ALL [...] Urine Methadone Screen Negative < 300 ng/mL [facility] Work Phone: Screening buprenorphine dete ctionon 01-28-2022 Buprenorphine Screen Ql (Unsp spec) Positive <10 ng/mL [facility] Work Phone: Urine phencyclidine (PCP) de tectionon 01-28-2022 Phencyclidine Ql (U) Negative < 25 ng/mL [facility] Work Phone: Absolute lymphocyte counton 10-18-2021 Lymphocytes Auto (Unsp spec) [#/Vol] 1.03 10*3/uL 0.83-4.51 [facility] Work Phone: Basophil percentageon 2021 Basophils/100 WBC (Bld) 0.5 % 0-1 [facility] Work Phone: Chloride [Moles/Vol] 104 mmol/L 98-107 [facility] Work Phone: Eosinophils/100 WBC (Bld) 0.5 % 0-5 [facility] Work Phone: Glucose [Mass/Vol] 100 mg/dL 74-106 [facility] Work Phone: Comment on above: Fasting Glucose resu lt from 100 to 125 mg/dL suggests IMPAIRED HOMEOSTASIS per A.D.A. criteria. Neutrophils (Bld) [#/Vol] 10.2 10*3/uL 2.0-7.7 [facility] Work Phone: Neutrophils/100 WBC (Bld) 79.9 % 47-70 [facility] Work Phone: Potassium [Moles/Vol] 4.1 mmol/L 3.5-5.1 [facility] Work Phone: Sodium [Moles/Vol] 138 mmol/L 136-145 [facility] Work Phone: WBC (Bld) [#/Vol] 12.7 10*3/uL 4.4-11.0 [facility] Work Phone: Blood erythrocytes count (nu mber/volume)on 10-18-2021 RBC (Bld) [#/Vol] 4.60 10*6/uL 4.2-5.4 [facility] Work Phone: Blood hemoglobin measurement (mass/volume)on 10-18-2021 Hemoglobin (Bld) [Mass/Vol] 13.5 g/dL 12.0-15.0 [facility] Work Phone: Blood lymphocytes/100 leukoc yteson 10-18-2021 Lymphocytes/100 WBC (Bld) 8.1 % 19-41 [facility] Work Phone: Blood monocytes/100 leukocyt eson 10-18-2021 Monocytes/100 WBC (Bld) 10.5 % 0-10 [facility] Work Phone: Blood platelet mean volumeon 10-18-2021 Platelet mean volume (Bld) [Entitic vol] 10.9 fL 6.2-12.0 [facility] Work Phone: Determination of erythrocyte mean corpuscular volume (MCV)on 10-18-2021 MCV (RBC) [Entitic vol] 94.6 fL 81-99 [facility] Work Phone: Hematocrit Auto (Bld) [Volum e fraction]on 10-18-2021 Hematocrit (Bld) [Volume fraction] 43.5 % 37-47 [facility] Work Phone: Laboratory - Chemistry and C hemistry - challengeon 10-18-2021 CO2 [Moles/Vol] 29.0 mmol/L 21.0-32.0 [facility] Work Phone: Urea nitrogen/Creatinine [Mass ratio] 28.9 mg/mg 10-20 [facility] Work Phone: Laboratory - Hematology and Cell countson 10-18-2021 Erythrocyte distribution width (RBC) [Entitic vol] 49.3 fL 35.1-43.9 [facility] Work Phone: Erythrocyte distribution width (RBC) [Ratio] 14.6 % 11.6-14.6 [facility] Work Phone: [phone] Immature granulocytes/100 WBC (Bld) 0.500 % 0.0-0.9 [facility] Work Phone: Comment on above: IG% - Immature Granu locytes (promyelocytes, myelocytes and metamyelocytes) > 1% indicates that a LEFT SHIFT is Present. MCH (RBC) [Entitic mass] 29.3 pg 27.0-32.0 [facility] Work Phone: Nucleated RBC/100 WBC (Bld) [Ratio] 0 % 0-5 [facility] Work Phone: [phone] MCHC Auto (RBC) [Mass/Vol]on 10-18-2021 MCHC (RBC) [Mass/Vol] 31.0 g/dL 32-36 [facility] Work Phone: No Panel Informationon 10-18 Estimated Creatinine Clearance Calc 34.59 ml/min [facility] Work Phone: [phone] Estimated GFR (MDRD) Amer 118 mL/min >60 [facility] Work Phone: [phone] Comment on above: GFR Calc Estimated GFR (MDRD) Non-Af Amer 97 mL/min >60 [facility] Work Phone: Comment on above: Non- GFR Calc Platelets bldon 10-18-2021 Platelets (Bld) [#/Vol] 400 10*3/uL 150-450 [facility] Work Phone: [phone] Serum or plasma calcium anay urement (mass/volume)on 10-18-2021 Calcium [Mass/Vol] 9.5 mg/dL 8.5-10.1 [facility] Work Phone: [phone] Serum or plasma creatinine m easurement (mass/volume)on 10-18-2021 Creatinine [Mass/Vol] 0.62 mg/dL 0.55-1.02 [facility] Work Phone: Comment on above: The validity of the calculated GFR & GFRAA in patients over 70 years has not been determined. Clinical correlation is essential. Serum or plasma urea nitroge n measurement (mass/volume)on 10-18-2021 Urea nitrogen [Mass/Vol] 18 mg/dL 7-18 [facility] Work Phone: Thin prep Papanicolaou smear with manual screeningon 10-18-2021 Thin prep Papanicolaou smear with manual screening 5 5-15 [facility] Work Phone: [phone] Basophil percentageon 2021 Chloride [Moles/Vol] 108 mmol/L 98-107 [facility] Work Phone: [phone] Glucose [Mass/Vol] 103 mg/dL 74-106 [facility] Work Phone: Comment on above: Fasting Glucose resu lt from 100 to 125 mg/dL suggests IMPAIRED HOMEOSTASIS per A.D.A. criteria. Potassium [Moles/Vol] 4.6 mmol/L 3.5-5.1 [facility] Work Phone: [phone] Sodium [Moles/Vol] 141 mmol/L 136-145 [facility] Work Phone: [phone] WBC (Bld) [#/Vol] 11.7 10*3/uL 4.4-11.0 [facility] Work Phone: [phone] Blood erythrocytes count (nu mber/volume)on 09-30-2021 RBC (Bld) [#/Vol] 4.34 10*6/uL 4.2-5.4 [facility] Work Phone: [phone] Blood hemoglobin measurement (mass/volume)on 09-30-2021 Hemoglobin (Bld) [Mass/Vol] 13.2 g/dL 12.0-15.0 [facility] Work Phone: [phone] Blood platelet mean volumeon 09-30-2021 Platelet mean volume (Bld) [Entitic vol] 11.3 fL 6.2-12.0 [facility] Work Phone: [phone] Determination of erythrocyte mean corpuscular volume (MCV)on 09-30-2021 MCV (RBC) [Entitic vol] 96.8 fL 81-99 [facility] Work Phone: [phone] Hematocrit Auto (Bld) [Volum e fraction]on 09-30-2021 Hematocrit (Bld) [Volume fraction] 42.0 % 37-47 [facility] Work Phone: [phone] Laboratory - Chemistry and C hemistry - challengeon 09-30-2021 CO2 [Moles/Vol] 31.0 mmol/L 21.0-32.0 [facility] Work Phone: [phone] Urea nitrogen/Creatinine [Mass ratio] 23.9 mg/mg 10-20 [facility] Work Phone: [phone] Laboratory - Hematology and Cell countson 09-30-2021 Erythrocyte distribution width (RBC) [Entitic vol] 51.9 fL 35.1-43.9 [facility] Work Phone: [phone] Erythrocyte distribution width (RBC) [Ratio] 14.6 % 11.6-14.6 [facility] Work Phone: [phone] MCH (RBC) [Entitic mass] 30.4 pg 27.0-32.0 [facility] Work Phone: [phone] MCHC Auto (RBC) [Mass/Vol]on 09-30-2021 MCHC (RBC) [Mass/Vol] 31.4 g/dL 32-36 [facility] Work Phone: No Panel Informationon 09-30 Estimated GFR (MDRD) Amer 94 mL/min >60 [facility] Work Phone: Comment on above: GFR Calc Estimated GFR (MDRD) Non-Af Amer 78 mL/min >60 [facility] Work Phone: [phone] Comment on above: Non- GFR Calc Platelets bldon 09-30-2021 Platelets (Bld) [#/Vol] 290 10*3/uL 150-450 [facility] Work Phone: [phone] Serum or plasma calcium anay urement (mass/volume)on 09-30-2021 Calcium [Mass/Vol] 9.7 mg/dL 8.5-10.1 [facility] Work Phone: Serum or plasma creatinine m easurement (mass/volume)on 09-30-2021 Creatinine [Mass/Vol] 0.75 mg/dL 0.55-1.02 [facility] Work Phone: Comment on above: The validity of the calculated GFR & GFRAA in patients over 70 years has not been determined. Clinical correlation is essential. Serum or plasma urea nitroge n measurement (mass/volume)on 09-30-2021 Urea nitrogen [Mass/Vol] 18 mg/dL 7-18 [facility] Work Phone: Thin prep Papanicolaou smear with manual screeningon 09-30-2021 Thin prep Papanicolaou smear with manual screening 2 5-15 [facility] Work Phone: Absolute lymphocyte counton 07-01-2021 Lymphocytes Auto (Unsp spec) [#/Vol] 0.65 10*3/uL 0.83-4.51 [facility] Work Phone: Basophil percentageon 2021 Basophils/100 WBC (Bld) 0.6 % 0-1 [facility] Work Phone: Bilirubin [Mass/Vol] 0.40 mg/dL 0.20-1.00 [facility] Work Phone: Comment on above: For patients on eltr ombopag therapy, use of Dimension [place] TBIL is not recommended. Chloride [Moles/Vol] 107 mmol/L 98-107 [facility] Work Phone: Eosinophils/100 WBC (Bld) 2.5 % 0-5 [facility] Work Phone: Glucose [Mass/Vol] 88 mg/dL 74-106 [facility] Work Phone: Neutrophils (Bld) [#/Vol] 6.2 10*3/uL 2.0-7.7 [facility] Work Phone: Neutrophils/100 WBC (Bld) 76.5 % 47-70 [facility] Work Phone: Potassium [Moles/Vol] 3.9 mmol/L 3.5-5.1 [facility] Work Phone: Protein [Mass/Vol] 6.7 g/dL 6.4-8.2 [facility] Work Phone: Sodium [Moles/Vol] 141 mmol/L 136-145 [place] [facility] Work Phone: WBC (Bld) [#/Vol] 8.1 10*3/uL 4.4-11.0 [facility] [facility] Work Phone: Blood erythrocytes count (nu mber/volume)on 07-01-2021 RBC (Bld) [#/Vol] 4.20 10*6/uL 4.2-5.4 [facility]: Blood hemoglobin measurement (mass/volume)on 07-01-2021 Hemoglobin (Bld) [Mass/Vol] 13.2 g/dL 12.0-15.0 [facility] Work Phone: Blood lymphocytes/100 leukoc yteson 07-01-2021 Lymphocytes/100 WBC (Bld) 8.1 % 19-41 [facility] Work Phone: Blood monocytes/100 leukocyt eson 07-01-2021 Monocytes/100 WBC (Bld) 11.9 % 0-10 [facility] Work Phone: Blood platelet mean volumeon 07-01-2021 Platelet mean volume (Bld) [Entitic vol] 12.1 fL 6.2-12.0 [facility] Work Phone: Determination of erythrocyte mean corpuscular volume (MCV)on 07-01-2021 MCV (RBC) [Entitic vol] 96.2 fL 81-99 [facility] Work Phone: Hematocrit Auto (Bld) [Volum e fraction]on 07-01-2021 Hematocrit (Bld) [Volume fraction] 40.4 % 37-47 [facility] Work Phone: [phone] Laboratory - Chemistry and C hemistry - challengeon 07-01-2021 ALP [Catalytic activity/Vol] 98 U/L 45-117 [facility] Work Phone: [phone] ALT [Catalytic activity/Vol] 18 U/L 13-56 [facility] Work Phone: [phone] CO2 [Moles/Vol] 30.0 mmol/L 21.0-32.0 [facility] Work Phone: [phone] Globulin (S) [Mass/Vol] 3.2 g/dL 2.2-4.2 [facility] Work Phone: [phone] Urea nitrogen/Creatinine [Mass ratio] 18.3 mg/mg 10-20 [facility] Work Phone: [phone] Laboratory - Hematology and Cell countson 07-01-2021 Erythrocyte distribution width (RBC) [Entitic vol] 55.9 fL 35.1-43.9 [facility] Work Phone: [phone] Erythrocyte distribution width (RBC) [Ratio] 15.9 % 11.6-14.6 [facility] Work Phone: [phone] Immature granulocytes/100 WBC (Bld) 0.400 % 0.0-0.9 [facility] Work Phone: [phone] Comment on above: IG% - Immature Granu locytes (promyelocytes, myelocytes and metamyelocytes) > 1% indicates that a LEFT SHIFT is Present. MCH (RBC) [Entitic mass] 31.4 pg 27.0-32.0 [facility] Work Phone: [phone] Nucleated RBC/100 WBC (Bld) [Ratio] 0 % 0-5 [facility] Work Phone: [phone] MCHC Auto (RBC) [Mass/Vol]on 07-01-2021 MCHC (RBC) [Mass/Vol] 32.7 g/dL 32-36 [facility] Work Phone: [phone] Panel Informationon 07-01 Estimated GFR (MDRD) Amer 93 mL/min >60 [facility] Work Phone: Comment on above: GFR Calc Estimated GFR (MDRD) Non-Af Amer 77 mL/min >60 [facility] Work Phone: Comment on above: Non- GFR Calc Platelets bldon 07-01-2021 Platelets (Bld) [#/Vol] 296 10*3/uL 150-450 [facility] Work Phone: Serum or plasma albumin anay urement (mass/volume)on 07-01-2021 Albumin [Mass/Vol] 3.5 g/dL 3.2-5.0 [facility] Work Phone: Serum or plasma albumin/glob ulin mass ratioon 07-01-2021 Albumin/Globulin [Mass ratio] 1.1 {ratio} 0.9-2.4 [facility] Work Phone: Serum or plasma calcium anay urement (mass/volume)on 07-01-2021 Calcium [Mass/Vol] 9.0 mg/dL 8.5-10.1 [facility] Work Phone: Serum or plasma creatinine m easurement (mass/volume)on 07-01-2021 Creatinine [Mass/Vol] 0.76 mg/dL 0.55-1.02 [facility] Work Phone: Comment on above: The validity of the calculated GFR & GFRAA in patients over 70 years has not been determined. Clinical correlation is essential. 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-2016 Thyroid stimulating hormone (TSH) 1.090 u[iU]/mL Invalid Interpretation Code [facility] Work Phone: [phone] Erythrocytes (RBC) 3.98 10*6/uL Invalid Interpretation Code [facility] Work Phone: [phone] Hematocrit (HCT) 41.8 % Invalid Interpretation Code [facility] Work Phone: [phone] Hemoglobin (HGB) 12.5 g/dL Invalid Interpretation Code [facility] Work Phone: [phone] MCH 31.4 pg Invalid Interpretation Code [facility] Work Phone: [phone] MCHC 29.9 g/dL Low [facility] Work Phone: [phone] MCV 105.0 fL High [facility] Work Phone: [phone] Platelets 310 10*3/mm3 Invalid Interpretation Code [facility] Work Phone: [phone] PMV by Dawna 11.6 fL Invalid Interpretation Code [facility] Work Phone: [phone] RDW-CA 15.0 % Invalid Interpretation Code [facility] Work Phone: [phone] WBC (Leukocytes) 7.36 10*3/uL Invalid Interpretation Code [facility] Work Phone: [phone] Clinical Lists Update: P[employer]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 10-27-2016 Alanine aminotransferase (ALT) 8 U/L Invalid Interpretation Code [facility] Work Phone: [phone] Albumin 4.0 g/dL Invalid Interpretation Code [facility] Work Phone: [phone] Alkaline phosphatase (ALP) 92 U/L Invalid Interpretation Code [facility] Work Phone: [phone] ALP enzyme act/vol (Bld) 92 U/L [facility] Work Phone: [phone] Aspartate aminotransferase (AST) 22 U/L Invalid Interpretation Code [facility] Work Phone: [phone] Bilirubin (total) 0.8 mg/dL Invalid Interpretation Code [facility] Work Phone: [phone] BUN/Creatinine Ratio 19.8 mg/mg Invalid Interpretation Code [facility] Work Phone: [phone] Calcium 9.5 mg/dL Invalid Interpretation Code [facility] Work Phone: [phone] Chloride 108 mmol/L Invalid Interpretation Code [facility] Work Phone: [phone] Cholesterol 244 mg/dL Invalid Interpretation Code [facility] Work Phone: [phone] Cholesterol to HDL Ratio 25 {ratio} Invalid Interpretation Code [facility] Work Phone: [phone] CO2 30 mmol/L Invalid Interpretation Code [facility] Work Phone: [phone] CO2 ppres (BldV) 30 mmol/L [facility] Work Phone: [phone] Creatinine 0.83 mg/dL Invalid Interpretation Code [facility] Work Phone: [phone] Globulin 2.3 g/dL Invalid Interpretation Code [facility] Work Phone: [phone] Globulin mass conc (S) 2.3 g/dL [facility] Work Phone: [phone] Glucose 88 mg/dL Invalid Interpretation Code [facility] Work Phone: [phone] Glucose mass conc 88 mg/dL [facility] Work Phone: [phone] HDL Cholesterol 98 mg/dL Invalid Interpretation Code [facility] Work Phone: [phone] LDL Cholesterol 125 mg/dL Invalid Interpretation Code [facility] Work Phone: [phone] Potassium 3.9 mmol/L Invalid Interpretation Code [facility] Work Phone: [phone] Protein 6.3 g/dL Invalid Interpretation Code [facility] Work Phone: [phone] Sodium 143 mmol/L Invalid Interpretation Code [facility] Work Phone: [phone] Thyroid stimulating hormone (TSH) 1.53 u[iU]/mL [facility] Work Phone: [phone] Triglyceride 105 mg/dL Invalid Interpretation Code [facility] Work Phone: [phone] Urea nitrogen 16 mg/dL Invalid Interpretation Code [facility] Work Phone: [phone] Office Visiton 10-20-2016 Documentation of current medications (procedure) Done Invalid Interpretation Code [facility] Work Phone: [phone] Protein mass conc Done [facility] Work Phone: Office Visit: [facility] 05-01-20 15 Tobacco smoking status NHIS Never smoker [employer] Phone: [phone] Tobacco use [facility] Never smoker Invalid Interpretation Code [employer] Phone: [phone] Office Visiton 11-06-2014 cardiac risk group B Invalid Interpretation Code [employer] Phone: [phone] General cardiovascular disease 10Y risk [#] Monse.Jessica'Pedro 3 % Invalid Interpretation Code [facility] Work Phone: [phone] Replaced Document: [facility] [facility] CG Observationson 11-06-2014 EKG QRS axis -14 deg [facility] Work Phone: [phone] electrocardiogram interpretation Sinus Bradycardia - occasional ectopic ventricular beat Low voltage in limb leads. -Inferior infarct -age undetermined. ABNORMAL Invalid Interpretation Code [employer] Phone: [phone] GE use only - for [employer] import when terms are not otherwise specified 407 ms Invalid Interpretation Code [employer] Phone: [phone] Interpretation Sinus Bradycardia - occasional ectopic ventricular beat Low voltage in limb leads. -Inferior infarct -age undetermined. ABNORMAL [facility] Work Phone: [phone] P [place] 59 deg [facility] Work Phone: [phone] P wave axis, electrocardiogram 59 deg Invalid Interpretation Code [employer] Phone: [phone] VT Interval 130 ms [facility] Work Phone: [phone] VT interval, electrocardiogram 130 ms Invalid Interpretation Code [facility] Work Phone: [phone] Pulse (Heart Rate) 56 /min Invalid Interpretation Code [facility] Work Phone: [phone] QRS axis, electrocardiogram -14 deg Invalid Interpretation Code [employer] Phone: [phone] QRS Duration 80 ms [facility] Work Phone: [phone] QRS duration, electrocardiogram 80 ms Invalid Interpretation Code [employer] Phone: QT Interval new path ms [facility] Work Phone: QT interval, electrocardiogram new path ms Invalid Interpretation Code [facility] Work Phone: QTc Jay 407 ms [facility] Work Phone: [phone] T [place] -17 deg [facility] Work Phone: [phone] T wave axis, electrocardiogram -17 deg Invalid Interpretation Code [facility] Work Phone: [phone] Clinical Lists Update: 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 07-19-2014 Alanine aminotransferase (ALT) 15 U/L Invalid Interpretation Code [facility] Work Phone: [phone] Alkaline phosphatase (ALP) 94 U/L Invalid Interpretation Code [facility] Work Phone: [phone] Anion gap 9 mmol/L Invalid Interpretation Code [facility] Work Phone: [phone] Anion gap molar conc 9 mmol/L [facility] Work Phone: [phone] Aspartate aminotransferase (AST) 27 U/L Invalid Interpretation Code [facility] Work Phone: [phone] Bilirubin (total) 0.50 mg/dL Invalid Interpretation Code [facility] Work Phone: [phone] BUN/Creatinine Ratio 22.2 mg/mg Invalid Interpretation Code [facility] Work Phone: [phone] Calcium 10.1 mg/dL Invalid Interpretation Code [facility] Work Phone: [phone] Chloride 104 mmol/L Invalid Interpretation Code [facility] Work Phone: [phone] CO2 28.0 mmol/L Invalid Interpretation Code [facility] Work Phone: [phone] Creatinine 0.9 mg/dL Invalid Interpretation Code [facility] Work Phone: [phone] Erythrocytes (RBC) 4.23 10*6/uL Invalid Interpretation Code [facility] Work Phone: [phone] Glucose 68 mg/dL Low [facility] Work Phone: [phone] Hematocrit (HCT) 38.8 % Invalid Interpretation Code [facility] Work Phone: [phone] Hematocrit Volume Fraction (Bld) 38.8 % [facility] Work Phone: [phone] Hemoglobin (HGB) 12.1 g/dL [facility] Work Phone: [phone] MCH 28.6 pg Invalid Interpretation Code [facility] Work Phone: [phone] Entitic mass (RBC) 28.6 pg [facility] Work Phone: [phone] MCHC 31.2 g/dL Invalid Interpretation Code [facility] Work Phone: [phone] MCHC mass conc (RBC) 31.2 g/dL [facility] Work Phone: [phone] MCV 91.7 fL Invalid Interpretation Code [facility] Work Phone: [phone] MCV Entitic volume (RBC) 91.7 fL [facility] Work Phone: [phone] Platelets 306 10*3/mm3 Invalid Interpretation Code [facility] Work Phone: [phone] Platelets #/vol (Bld) 306 10*3/mm3 [facility] Work Phone: [phone] Potassium 3.7 mmol/L Invalid Interpretation Code [facility] Work Phone: [phone] RBC #/vol (Bld) 4.23 10*6/uL [facility] Work Phone: [phone] Sodium 141 mmol/L Invalid Interpretation Code [facility] Work Phone: [phone] Urea nitrogen 20 mg/dL Invalid Interpretation Code [facility] Work Phone: [phone] WBC #/vol (Bld) 8.7 10*3/uL [facility] Work Phone: [phone] WBC (Leukocytes) 8.7 10*3/uL Invalid Interpretation Code [facility] Work Phone: [phone] Replaced Document: Bronson Ray CG Observationson 01-26-2014 Pulse (Heart Rate) 398 ms Invalid Interpretation Code [facility] Work Phone: [phone] Clinical Lists Update: P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 11-04-2013 Cholesterol 209 mg/dL High [facility] Work Phone: [phone] HDL Cholesterol 83 mg/dL High [facility] Work Phone: [phone] LDL Cholesterol 112 mg/dL Invalid Interpretation Code [facility] Work Phone: [phone] Thyroid stimulating hormone (TSH) 0.81 u[iU]/mL Invalid Interpretation Code [facility] Work Phone: [phone] Triglyceride 69 mg/dL Invalid Interpretation Code [facility] Work Phone: [phone] very low density lipoproteins 14 mg/dL Invalid Interpretation Code [facility] Work Phone: [phone] Albumin 3.5 g/dL Invalid Interpretation Code [facility] Work Phone: [phone] Erythrocyte distribution width Ratio (RBC) 17.0 % [facility] Work Phone: [phone] Globulin 3.6 g/dL Invalid Interpretation Code [facility] Work Phone: [phone] Platelet mean volume Entitic volume (Bld) 11.2 fL [facility] Work Phone: [phone] PMV by Dawna 11.2 fL Invalid Interpretation Code [facility] Work Phone: [phone] Protein 7.1 g/dL Invalid Interpretation Code [facility] Work Phone: [phone] RDW-CA 17.0 % Invalid Interpretation Code [facility] Work Phone: [phone] COVID-19 virus antigen assay SARS-CoV-2 (COVID-19) Ag IA.rapid Ql (Resp) [facility] Work Phone: Culture, urine Bacteria identified Cx Nom (U) 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 [facility] Work Phone: [phone] Vital Signs Date Time Vital Sign Value Performing Clinician Facility 06-30-2023 10:32-0500 Body temperature 97.5 [degF] [employer] Milagros Hunter [employer] Work Phone: [facility] 06-30-2023 10:32-0500 Diastolic blood pressure 91 mm[Hg] [employer]-Micheal Hunter [employer] Work Phone: [facility] 06-30-2023 10:32-0500 Heart rate 81 /min [employer]-Micheal Hunter [employer] Work Phone: [facility] 06-30-2023 10:32-0500 Respiratory rate 16 /min [employer]-Micheal Hunter [employer] Work Phone: [facility] 06-30-2023 10:32-0500 SaO2% (BldA) [Mass fraction] 98 % [employer] Milagros Hunter [employer] Work Phone: [facility] 06-30-2023 10:32-0500 Systolic blood pressure 149 mm[Hg] [employer] Milagros Hunter [employer] Work Phone: [facility] 06-30-2023 09:37-0500 Body mass index (BMI) [Ratio] 21.4 kg/m2 [employer] Milagros Hunter [employer] Work Phone: [facility] 06-30-2023 09:37-0500 Body weight 51.5 kg [employer] Milagros Hunter [employer] Work Phone: [facility] 06-30-2023 09:35-0500 Body height 154.94 cm [employer] Milagros Hunter [employer] Work Phone: [facility] 03-17-2023 11:31-0500 Body mass index (BMI) [Ratio] 21.1 kg/m2 [employer] Milagros Hunter [employer] Work Phone: [facility] 03-17-2023 11:31-0500 Body weight 50.8 kg [employer] Milagros Hunter [employer] Work Phone: [facility] 03-17-2023 11:31-0500 Diastolic blood pressure 74 mm[Hg] [employer] Milagros Hunter [employer] Work Phone: [facility] 03-17-2023 11:31-0500 Heart rate 81 /min [employer] Milagros Hunter [employer] Work Phone: [facility] 03-17-2023 11:31-0500 Respiratory rate 16 /min [employer] Milagros Hunter [employer] Work Phone: [facility] 03-17-2023 11:31-0500 Systolic blood pressure 117 mm[Hg] [employer] Milagros Hunter [employer] Work Phone: [facility] 11-28-2022 00:45-0400 Diastolic blood pressure 52 mm[Hg] [employer] Milagros Hunter [employer] Work Phone: [facility] 11-28-2022 00:45-0400 Heart rate 76 /min [employer] Milagros Hunter [employer] Work Phone: [facility] 11-28-2022 00:45-0400 Respiratory rate 16 /min [employer] Milagros Hunter [employer] Work Phone: [facility] 11-28-2022 00:45-0400 Systolic blood pressure 92 mm[Hg] [employer] Milagros Hunter [employer] Work Phone: [facility] 11-27-2022 21:58-0400 Body height 157.48 cm [employer]-Micheal Hunter [employer] Work Phone: [facility] 11-27-2022 21:58-0400 Body mass index (BMI) [Ratio] 21.4 kg/m2 [employer]-Micheal Hunter [employer] Work Phone: [facility] 11-27-2022 21:58-0400 Body temperature 100.7 [degF] [employer] Milagros Hunter [employer] Work Phone: [facility] 11-27-2022 21:58-0400 Body weight 53.1 kg [employer]-Micheal Hunter [employer] Work Phone: [facility] 11-27-2022 21:58-0400 SaO2% (BldA) [Mass fraction] 93 % [employer]-Micheal Hunter [employer] Work Phone: [facility] 11-27-2022 14:43-0400 Body temperature 98.9 [degF] [employer]-Micheal Hunter [employer] Work Phone: [facility] 11-27-2022 14:43-0400 Diastolic blood pressure 87 mm[Hg] [employer]-Micheal Hunter [employer] Work Phone: [facility] 11-27-2022 14:43-0400 Heart rate 95 /min [employer] Milagros Hunter [employer] Work Phone: [facility] 11-27-2022 14:43-0400 Respiratory rate 16 /min [employer] Milagros Hunter [employer] Work Phone: [facility] 11-27-2022 14:43-0400 SaO2% (BldA) [Mass fraction] 97 % [employer] Milagros Hunter [employer] Work Phone: [facility] 11-27-2022 14:43-0400 Systolic blood pressure 132 mm[Hg] [employer] Milagros Hunter [employer] Work Phone: [facility] 11-27-2022 11:22-0400 Body height 157.48 cm [employer] Milagros Hunter [employer] Work Phone: [facility] 11-27-2022 11:22-0400 Body mass index (BMI) [Ratio] 20.2 kg/m2 [employer] Milagros Hunter [employer] Work Phone: [facility] 11-27-2022 11:22-0400 Body weight 50.34 kg [employer] Milagros Hunter [employer] Work Phone: [facility] 10-17-2022 11:09-0400 Body temperature 98.3 [degF] [employer] Milagros Hunter [employer] Work Phone: [facility] 10-17-2022 11:09-0400 Diastolic blood pressure 64 mm[Hg] [employer] Milagros Hunter [employer] Work Phone: [facility] 10-17-2022 11:09-0400 Heart rate 69 /min [employer] Milagros Hunter [employer] Work Phone: [facility] 10-17-2022 11:09-0400 Respiratory rate 16 /min [employer] Milagros Hunter [employer] Work Phone: [facility] 10-17-2022 11:09-0400 SaO2% (BldA) [Mass fraction] 94 % [employer] Milagros Hunter [employer] Work Phone: [facility] 10-17-2022 11:09-0400 Systolic blood pressure 100 mm[Hg] [employer] Milagros Hunter [employer] Work Phone: [facility] 10-14-2022 10:18-0400 Body mass index (BMI) [Ratio] 20.9 kg/m2 [employer] Milagros Hunter [employer] Work Phone: [facility] 10-14-2022 10:18-0400 Body weight 51.93 kg [employer] Milagros Hunter [employer] Work Phone: [facility] 10-09-2022 13:25-0400 Body temperature 97.6 [degF] [employer] Milagros Hunter [employer] Work Phone: [facility] 10-09-2022 13:25-0400 Diastolic blood pressure 59 mm[Hg] [employer] Milagros Hunter [employer] Work Phone: [facility] 10-09-2022 13:25-0400 Heart rate 75 /min [employer] Milagros Hunter [employer] Work Phone: [facility] 10-09-2022 13:25-0400 Respiratory rate 18 /min [employer] Milagros Hunter [employer] Work Phone: [facility] 10-09-2022 13:25-0400 SaO2% (BldA) [Mass fraction] 100 % [employer] Milagros Hunter [employer] Work Phone: [facility] 10-09-2022 13:25-0400 Systolic blood pressure 109 mm[Hg] [employer] Milagros Hunter [employer] Work Phone: [facility] 10-09-2022 12:33-0400 Body height 157.48 cm [employer] Milagros Hunter [employer] Work Phone: [facility] 10-09-2022 12:33-0400 Body mass index (BMI) [Ratio] 21.6 kg/m2 [employer] Milagros Hunter [employer] Work Phone: [facility] 10-09-2022 12:33-0400 Body weight 53.58 kg [employer] Milagros Hunter [employer] Work Phone: [facility] 10-09-2022 11:30-0400 Body temperature 97.6 [degF] [employer] Milagros Hunter [employer] Work Phone: [facility] 10-09-2022 11:30-0400 Diastolic blood pressure 70 mm[Hg] [employer] Milagros Hunter [employer] Work Phone: [facility] 10-09-2022 11:30-0400 Heart rate 78 /min [employer] Milagros Hunter [employer] Work Phone: [facility] 10-09-2022 11:30-0400 Respiratory rate 16 /min [employer] Milagros Hunter [employer] Work Phone: [facility] 10-09-2022 11:30-0400 SaO2% (BldA) [Mass fraction] 98 % [employer] Milagros Hunter [employer] Work Phone: [facility] 10-09-2022 11:30-0400 Systolic blood pressure 125 mm[Hg] [employer] Milagros Hunter [employer] Work Phone: [facility] 10-08-2022 11:54-0400 Body weight 53.52 kg [employer] Milagros Hunter [employer] Work Phone: [facility] 10-07-2022 11:25-0400 Body mass index (BMI) [Ratio] 21.5 kg/m2 [employer] Milagros Hunter [employer] Work Phone: [facility] 10-02-2022 13:34-0400 Body temperature 98.1 [degF] [employer] Milagros Hunter [employer] Work Phone: [facility] 10-02-2022 13:34-0400 Diastolic blood pressure 59 mm[Hg] [employer] Milgaros Hunter [employer] Work Phone: [facility] 10-02-2022 13:34-0400 Heart rate 86 /min [employer] Milagros Hunter [employer] Work Phone: [facility] 10-02-2022 13:34-0400 Respiratory rate 18 /min [employer] Milagros Hunter [employer] Work Phone: [facility] 10-02-2022 13:34-0400 SaO2% (BldA) [Mass fraction] 94 % [employer] Milagros Hunter [employer] Work Phone: [facility] 10-02-2022 13:34-0400 Systolic blood pressure 95 mm[Hg] [employer] Milagros Hunter [employer] Work Phone: [facility] 10-02-2022 04:23-0400 Body mass index (BMI) [Ratio] 20.7 kg/m2 [employer] Milagros Hunter [employer] Work Phone: [facility] 10-02-2022 04:23-0400 Body weight 51.2 kg [employer] Milagros Hunter [employer] Work Phone: [facility] 09-30-2022 22:25-0400 Inhaled oxygen flow rate 2 L/min [employer] Milagros Hunter [employer] Work Phone: [facility] 05-27-2022 08:57-0500 Body height 160.02 cm [employer] Milagros Hunter [employer] Work Phone: [facility] 05-27-2022 08:49-0500 Body mass index (BMI) [Ratio] 20.2 kg/m2 [employer] Milagros Hunter [employer] Work Phone: [facility] 05-27-2022 08:49-0500 Body weight 51.82 kg [employer] Milagros Hunter [employer] Work Phone: [facility] 05-27-2022 08:49-0500 Diastolic blood pressure 82 mm[Hg] [employer] Milagros Hunter [employer] Work Phone: [facility] 05-27-2022 08:49-0500 Systolic blood pressure 124 mm[Hg] [employer] Milagros Hunter [employer] Work Phone: [facility] 05-19-2022 10:25-0500 Diastolic Blood Pressure Non-Invasive [address] ZULEMA MOLINA MD [facility] 05-19-2022 10:25-0500 Systolic Blood Pressure Non-Invasive [address] ZULEMA MOLINA MD [facility] 05-19-2022 10:21-0500 Diastolic Blood Pressure Non-Invasive [address] ZULEMA MOLINA MD [facility] 05-19-2022 10:21-0500 Heart rate 67 /min DR ZULEMA MOLINA MD [facility] 05-19-2022 10:21-0500 Respiratory rate 16 /min DR ZULEMA MOLINA MD [facility] 05-19-2022 10:21-0500 Systolic Blood Pressure Non-Invasive [address] ZULEMA MOLINA MD [facility] 05-19-2022 10:09-0500 Body temperature 97.16 [degF] DR ZULEMA MOLINA MD [facility] 05-19-2022 10:09-0500 Diastolic Blood Pressure Non-Invasive [address] ZULEMA MOLINA MD [facility] 05-19-2022 10:09-0500 Heart rate 69 /min DR ZULEMA MOLINA MD [facility] 05-19-2022 10:09-0500 Respiratory rate 22 /min DR ZULEMA MOLINA MD [facility] 05-19-2022 10:09-0500 Systolic Blood Pressure Non-Invasive [address] ZULEMA MOLINA MD [facility] 05-19-2022 10:05-0500 Heart rate 77 /min DR ZULEMA MOLINA MD [facility] 05-19-2022 10:05-0500 Respiratory Rate - Anes 23 br/min DR ZULEMA MOLINA MD [facility] 05-19-2022 10:00-0500 Respiratory Rate - Anes 17 br/min DR ZULEMA MOLINA MD [facility] 05-19-2022 09:55-0500 Respiratory Rate - Anes 20 br/min DR ZULEMA MOLINA MD [facility] 05-19-2022 07:58-[address] ZULEMA MOLINA MD [facility] 05-19-2022 07:58-0500 Body height [address] ZULEMA MOLINA MD [facility] 05-19-2022 07:58-0500 Body temperature 97.16 [degF] DR ZULEMA MOLINA MD [facility] 05-19-2022 07:58-0500 Body weight [address] ZULEMA MOLINA MD [facility] 05-19-2022 07:58-0500 Heart rate 71 /min DR ZULEMA MOLINA MD [facility] 05-19-2022 07:58-0500 Respiratory rate 15 /min DR ZULEMA MOLINA MD [facility] 05-11-2022 15:20-0500 Diastolic blood pressure 72 mm[Hg] [facility] 05-11-2022 15:20-0500 SaO2% (BldA) [Mass fraction] 98 % [facility] 05-11-2022 15:20-0500 Systolic blood pressure 115 mm[Hg] [facility] 05-11-2022 12:41-0500 Heart rate 82 /min [facility] 05-11-2022 12:41-0500 Respiratory rate 18 /min [facility] 05-11-2022 10:17-0500 Body height 160.02 cm [facility] Work Phone: 05-11-2022 10:17-0500 Body mass index (BMI) [Ratio] 19.3 kg/m2 [facility] 05-11-2022 10:17-0500 Body temperature 96.9 [degF] [facility] 05-11-2022 10:17-0500 Body weight 49.44 kg [facility] 05-04-2022 12:07-0500 Body height 160.02 cm [facility] Work Phone: 05-04-2022 12:07-0500 Body mass index (BMI) [Ratio] 19.6 kg/m2 [facility] 05-04-2022 12:07-0500 Body temperature 98.3 [degF] [facility] 05-04-2022 12:07-0500 Body weight 50.34 kg [facility] 05-04-2022 12:07-0500 Diastolic blood pressure 102 mm[Hg] [facility] 05-04-2022 12:07-0500 Heart rate 116 /min [facility] 05-04-2022 12:07-0500 Respiratory rate 16 /min [facility] 05-04-2022 12:07-0500 SaO2% (BldA) [Mass fraction] 98 % [facility] 05-04-2022 12:07-0500 Systolic blood pressure 150 mm[Hg] [facility] 12-18-2021 15:41-0400 Body height 160.02 cm [employer] Milagros Hunter [employer] Work Phone: [facility] Work Phone: 12-18-2021 15:41-0400 Body mass index (BMI) [Ratio] 23 kg/m2 [employer] Milagros Hunter [employer] Work Phone: [facility] Work Phone: 12-18-2021 15:30-0400 Body weight 50.8 kg [employer] Milagros Hunter [employer] Work Phone: [facility] Work Phone: 12-18-2021 15:30-0400 Diastolic blood pressure 78 mm[Hg] [employer] Milagros Hunter [employer] Work Phone: [facility] Work Phone: 12-18-2021 15:30-0400 Heart rate 84 /min [employer] Milagros Hunter [employer] Work Phone: [facility] Work Phone: 12-18-2021 15:30-0400 Respiratory rate 16 /min [employer] Milagros Hunter [employer] Work Phone: [facility] Work Phone: 12-18-2021 15:30-0400 Systolic blood pressure 114 mm[Hg] [employer] Milagros Hunter [employer] Work Phone: [facility] Work Phone: 10-18-2021 20:33-0400 Diastolic blood pressure 87 mm[Hg] [employer] Milagros Hunter [employer] Work Phone: [facility] Work Phone: 10-18-2021 20:33-0400 Systolic blood pressure 125 mm[Hg] [employer] Milagros Hunter [employer] Work Phone: [facility] Work Phone: 10-18-2021 16:52-0400 Body height 160.02 cm [employer] Milagros Hunter [employer] Work Phone: [facility] Work Phone: 10-18-2021 16:52-0400 Body mass index (BMI) [Ratio] 20 kg/m2 [employer] Milagros Hunter [employer] Work Phone: [facility] Work Phone: 10-18-2021 16:52-0400 Body temperature 99 [degF] [employer] Milagros Hunter [employer] Work Phone: [facility] Work Phone: 10-18-2021 16:52-0400 Body weight 51.4 kg [employer] Milagros Hunter [employer] Work Phone: [facility] Work Phone: 10-18-2021 16:52-0400 Heart rate 100 /min [employer] Milagros Hunter [employer] Work Phone: [facility] Work Phone: 10-18-2021 16:52-0400 Respiratory rate 16 /min [employer] Milagros Hunter [employer] Work Phone: [facility] Work Phone: 10-18-2021 16:52-0400 SaO2% (BldA) [Mass fraction] 98 % [employer] Milagros Hunter [employer] Work Phone: [facility] Work Phone: 10-01-2021 14:42-0400 Diastolic blood pressure 78 mm[Hg] [employer] Geraldine Leigh [employer] Work Phone: [facility] Work Phone: 10-01-2021 14:42-0400 Heart rate 90 /min [employer] Geraldine Leigh [employer] Work Phone: [facility] Work Phone: 10-01-2021 14:42-0400 Respiratory rate 16 /min [employer] Geraldine Lu [employer] Work Phone: [facility] Work Phone: 10-01-2021 14:42-0400 SaO2% (BldA) [Mass fraction] 98 % [employer] Geraldine Lu [employer] Work Phone: [facility] Work Phone: 10-01-2021 14:42-0400 Systolic blood pressure 122 mm[Hg] [employer] Geraldine Lu [employer] Work Phone: [facility] Work Phone: 10-01-2021 13:45-0400 Body temperature 97.5 [degF] [employer] Geraldine Lu [employer] Work Phone: [facility] Work Phone: 10-01-2021 10:43-0400 Body height 160.02 cm [employer] Geraldine Lu [employer] Work Phone: [facility] Work Phone: 10-01-2021 10:43-0400 Body mass index (BMI) [Ratio] 19.9 kg/m2 [employer] Geraldine Lu [employer] Work Phone: [facility] Work Phone: 10-01-2021 10:43-0400 Body weight 51 kg [employer] Geraldine Lu [employer] Work Phone: [facility] Work Phone: 09-16-2021 09:33-0400 Body height 160.02 cm [employer] Geraldine Lu [employer] Work Phone: [facility] Work Phone: 09-16-2021 09:33-0400 Body mass index (BMI) [Ratio] 20.2 kg/m2 [employer] Geraldine Lu [employer] Work Phone: [facility] Work Phone: 09-16-2021 09:33-0400 Body temperature 97.2 [degF] [employer] Geraldine Lu [employer] Work Phone: [facility] Work Phone: 09-16-2021 09:33-0400 Body weight 51.82 kg [employer] Geraldine Lu [employer] Work Phone: [facility] Work Phone: 09-16-2021 09:33-0400 Diastolic blood pressure 82 mm[Hg] [employer] Geraldine Lu [employer] Work Phone: [facility] Work Phone: 09-16-2021 09:33-0400 Heart rate 70 /min [employer] Geraldine Lu [employer] Work Phone: [facility] Work Phone: 09-16-2021 09:33-0400 Respiratory rate 17 /min [employer] Geraldine Lu [employer] Work Phone: [facility] Work Phone: 09-16-2021 09:33-0400 SaO2% (BldA) [Mass fraction] 96 % [employer] Geraldine Lu [employer] Work Phone: [facility] Work Phone: 09-16-2021 09:33-0400 Systolic blood pressure 133 mm[Hg] [employer] Geraldine Lu [employer] Work Phone: [facility] Work Phone: 09-09-2021 14:54-0400 Body weight 53.07 kg [employer] Geraldine Lu [employer] Work Phone: [facility] Work Phone: 09-09-2021 14:54-0400 Diastolic blood pressure 78 mm[Hg] [employer] Geraldine Lu [employer] Work Phone: [facility] Work Phone: 09-09-2021 14:54-0400 Systolic blood pressure 118 mm[Hg] [employer] Geraldine Lu [employer] Work Phone: [facility] Work Phone: 07-17-2021 09:58-0500 Body weight 52.21 kg [employer] Geraldine Lu [employer] Work Phone: [facility] Work Phone: 07-17-2021 09:58-0500 Diastolic blood pressure 74 mm[Hg] [employer] Geraldine Lu [employer] Work Phone: [facility] Work Phone: 07-17-2021 09:58-0500 Systolic blood pressure 118 mm[Hg] [employer] Geraldine Lu [employer] Work Phone: [facility] Work Phone: 07-02-2021 15:40-0500 Body temperature 98.1 [degF] [employer] Geraldine Lu [employer] Work Phone: [facility] Work Phone: 07-02-2021 15:40-0500 Diastolic blood pressure 59 mm[Hg] [employer] Geraldine Lu [employer] Work Phone: [facility] Work Phone: 07-02-2021 15:40-0500 Heart rate 79 /min [employer] Geraldine Lu [employer] Work Phone: [facility] Work Phone: 07-02-2021 15:40-0500 Respiratory rate 16 /min [employer] Geraldine Lu [employer] Work Phone: [facility] Work Phone: 07-02-2021 15:40-0500 SaO2% (BldA) [Mass fraction] 94 % [employer] Geraldine Lu [employer] Work Phone: [facility] Work Phone: 07-02-2021 15:40-0500 Systolic blood pressure 106 mm[Hg] [employer] Geraldine Lu [employer] Work Phone: [facility] Work Phone: 07-02-2021 12:11-0500 Body mass index (BMI) [Ratio] 21.3 kg/m2 [employer] Geraldine Lu [employer] Work Phone: [facility] Work Phone: 07-02-2021 12:11-0500 Body weight 52.9 kg [employer] Geraldine Lu [employer] Work Phone: [facility] Work Phone: 06-19-2021 09:58-0500 Body mass index (BMI) [Ratio] 20.7 kg/m2 [employer] Geraldine Lu [employer] Work Phone: [facility] Work Phone: 06-19-2021 09:58-0500 Body weight 53.07 kg [employer] Geraldine Lu [employer] Work Phone: [facility] Work Phone: 06-19-2021 09:58-0500 Diastolic blood pressure 80 mm[Hg] HAR[employer]ST FIELD TICKETER-C Geraldine Lu HAR[employer]ST FIELD TICKETER Work Phone: [facility] Work Phone: 06-19-2021 09:58-0500 Systolic blood pressure 130 mm[Hg] [employer]ST FIELD TICKETER-C Geraldine Lu HAR[employer]ST FIELD TICKETER Work Phone: [facility] Work Phone: 10-20-2016 13:08-0400 BMI (Body Mass Index) 24.13 kg/m2 Matias Best MD [facility] Work Phone: 10-20-2016 13:08-0400 BP Diastolic 82 mm[Hg] Matias Best MD [facility] Work Phone: 10-20-2016 13:08-0400 BP Systolic 118 mm[Hg] Matias Best MD [facility] Work Phone: 10-20-2016 13:08-0400 Height 165.1 cm Matias Best MD [facility] Work Phone: 10-20-2016 13:08-0400 Pulse (Heart Rate) 68 /min [facility] Work Phone: 10-20-2016 13:08-0400 Respiratory Rate 16 /min Matias Best MD [facility] Work Phone: 10-20-2016 13:08-0400 Weight 65.77 kg Matias Best MD [facility] Work Phone: 10-15-2015 14:05-0400 BSA (Body Surface Area) 1.7 m2 Matias Best MD [facility] Work Phone: 11-06-2014 16:09-0400 Heart rate 56 /min Jamila Lozano RN [facility] Work Phone: 01-26-2014 11:01-0400 Heart rate 398 ms Jamila Lozano RN [facility] Work Phone: 01-26-2014 10:34-0400 Height 165.1 cm Matias Best MD [facility] Work Phone: Encounters Encounter Date Encounter Type Care Provider Facility Start: 10-04-2024 End: 10-04-2024 ambulatory Milagros Hunter NP-C Work Phone: [facility] Work Phone: Start: 10-04-2024 End: 10-04-2024 Patient encounter procedure Milagros Hunter [employer]ST FIELD TICKETER-C -Outpatient Breast Imaging Work Phone: Start: 10-04-2024 End: 10-04-2024 ambulatory Milagros Hunter [employer] FI[employer] TICKETER Facility:[facility] Start: 09-15-2024 End: 09-15-2024 ambulatory Milagros Hunter HAR[employer]ST FIELD TICKETER-C Work Phone: [facility] Work Phone: Start: 09-15-2024 End: 09-15-[address] Mylene Hoskins MD -Radiology, [facility] Work Phone: Start: 09-15-2024 End: 09-15-2024 ambulatory Mylene Hoskins Facility:[facility] Start: 07-05-2024 End: 07-05-2024 ambulatory Milagros Hunter [employer]ST FIELD TICKETER-C Work Phone: [facility] Work Phone: Start: 07-05-2024 End: 07-05-[address] Mylene Hoskins MD -Radiology, [facility] Work Phone: Start: 07-05-2024 End: 07-05-2024 ambulatory Mylene Hoskins Facility:[facility] Start: 06-28-2024 End: 06-28-2024 Patient encounter procedure Leilani NELSON -[facility] Work Phone: Start: 06-28-2024 End: 06-28-2024 ambulatory Leilani Gonzales Facility:[facility] Start: 05-23-2024 End: 05-23-2024 ambulatory [facility] Start: 04-19-2024 End: 04-19-2024 Patient encounter procedure Leilani NELSON -Nuclear Medicine, [facility] Work Phone: Start: 04-19-2024 End: 04-19-2024 ambulatory Leilani Gonzales Facility:[facility] Start: 03-29-2024 End: 03-29-2024 Patient encounter procedure Leilani NELSON -[facility] Work Phone: Start: 03-29-2024 End: 03-29-2024 ambulatory Milagros Hunter [employer] FI[employer] TICKETER Facility:[facility] Start: 03-21-2024 End: 03-21-2024 ambulatory [facility] Start: 03-15-2024 End: 03-15-2024 ambulatory Milagros Hunter HAR[employer]ST FIELD TICKETER [facility] Start: 03-08-2024 End: 03-08-2024 ambulatory Milagros Hunter [employer]ST FIELD TICKETER Facility:[facility] Start: 02-17-2024 End: 02-17-2024 ambulatory MILAGROS HUNTER PROPERTY CLERK-TOBACCO SPRAYER Facility:[facility] Start: 02-17-2024 End: 02-17-2024 Patient encounter procedure MILAGROS HUNTER PROPERTY CLERK-TOBACCO SPRAYER [facility] Start: 02-02-2024 End: 02-02-2024 ambulatory Milagros Hunter [employer] FIELD TICKETER Facility:[facility] Start: 01-21-2024 ambulatory Mylene Brooks Facility:[facility] Start: 01-04-2024 End: 01-04-2024 ambulatory [facility] Start: 11-03-2023 End: 11-03-2023 ambulatory Milagros Hunter HAR[employer]ST FIELD TICKETER Facility:[facility] Start: 10-27-2023 ambulatory Milagros Hunter HAR[employer]ST FIELD TICKETER Fa cility:[facility] Start: 10-20-2023 Telephone encounter Dc weems MD Work Phone: Plastic Surgery Start: 10-13-2023 ambulatory Parviz Mandujano Facility:[facility] Start: 10-13-2023 End: 10-13-2023 Emergency department patient visit Roosevelt Zimmerman Facility:[facility] Start: 10-13-2023 End: 10-13-2023 ambulatory MILAGROS HUNTER Facility:[facility] Start: 09-08-2023 End: 09-08-2023 ambulatory [facility] Work Phone: Start: 09-08-2023 End: 09-08-2023 Patient encounter procedure [facility]-Laboratory Work Phone: Start: 08-24-2023 End: 08-25-2023 ambulatory [facility] Start: 08-20-2023 End: 08-20-2023 ambulatory KIYA SALAZAR Facility:[facility] Start: 08-20-2023 End: 08-20-2023 Patient encounter procedure Laure Vareal OD Work Phone: Optometry Comment on above: Keratitis sicca, bo ateral (HCC) (Primary Dx); Rheumatoid arthritis involving multiple sites, unspecified whether rheumatoid factor present (HCC); Pseudophakia of both eyes; Vitreous floaters of both eyes; Regular astigmatism, bilateral Start: 08-17-2023 End: 08-18-2023 ambulatory SOCORRO Carey INGE [facility] Start: 08-14-2023 End: 08-15-2023 ambulatory SOCORRO M INGE [facility] Start: 08-10-2023 End: 08-11-2023 ambulatory SOCORRO ALCAZAR [facility] Start: 08-05-2023 End: 08-06-2023 ambulatory SOCORRO Carey INGE [facility] Start: 08-03-2023 End: 08-04-2023 ambulatory SOCORRO ALCAZAR [facility] Start: 07-29-2023 End: 07-30-2023 ambulatory SOCORRO Carey INGE [facility] Start: 07-10-2023 End: 07-11-2023 ambulatory [facility] Start: 07-08-2023 ambulatory KIYA SALAZAR Facili ty:[facility] Start: 07-08-2023 End: 07-08-2023 ambulatory KIYA SALAZAR Facility:[facility] Start: 07-06-2023 End: 07-07-2023 ambulatory [facility] Start: 06-30-2023 End: 06-30-2023 Emergency department patient visit [employer] TICKETER-C Milagros Hunter HAR[employer]ST FIELD TICKETER Work Phone: [facility]-Emergency Department Work Phone: Start: 06-29-2023 End: 06-30-2023 ambulatory [facility] Start: 06-26-2023 End: 06-27-2023 ambulatory [facility] Start: 06-19-2023 End: 06-20-2023 ambulatory [facility] Start: 06-17-2023 End: 06-18-2023 ambulatory [facility] Start: 06-08-2023 End: 06-09-2023 ambulatory [facility] Start: 06-05-2023 End: 06-06-2023 ambulatory [facility] Start: 06-01-2023 End: 06-02-2023 ambulatory [facility] Start: 05-22-2023 End: 05-23-2023 ambulatory [facility] Start: 05-15-2023 End: 05-16-2023 ambulatory [facility] Start: 05-13-2023 End: 05-14-2023 ambulatory [facility] Start: 05-06-2023 End: 05-07-2023 ambulatory [facility] Start: 04-29-2023 End: 04-30-2023 ambulatory [facility] Start: 04-27-2023 End: 04-28-2023 ambulatory [facility] Start: 04-20-2023 End: 04-21-2023 ambulatory [facility] Start: 04-14-2023 End: 04-14-2023 ambulatory [facility] Facility:[facility] Start: 04-07-2023 End: 04-07-2023 ambulatory [facility] Facility:[facility] Start: 03-31-2023 End: 04-01-2023 ambulatory NORA [facility] Start: 03-17-2023 Patient encounter status HARVEST FIELD TICKETER-Micheal Hunter HARVEST FIELD TICKETER Work Phone: [facility] Start: 03-17-2023 End: 03-17-2023 Encounter for other preprocedural examination HARVEST FIELD TICKETER-Micheal Hunter HARVEST FIELD TICKETER Work Phone: [facility] Start: 03-17-2023 End: 03-17-2023 Patient encounter procedure HAR[employer] FIELD TICKETER-Micheal Hunter HARVEST FIELD TICKETER Work Phone: [facility] Work Phone: Start: 03-13-2023 End: 03-13-2023 ambulatory NORA Burton [facility] Start: 03-13-2023 End: 03-13-2023 Encounter for other preprocedural examination NORA Burton [facility] Start: 12-30-2022 End: 12-30-2022 ambulatory [facility] Facility:[facility] Start: 11-28-2022 Evaluation and management of inpatient [employer] TICKETER-C Milagros Hunter HAR[employer]ST FIELD TICKETER Work Phone: [facility]-Medical Surgical 3 Work Phone: Start: 11-28-2022 observation encounter [employer] TICKETER-C Lexie aaliyah Hunter HARVEST FIELD TICKETER Work Phone: [facility] Work Phone: Start: 11-27-2022 End: 11-27-2022 Emergency department patient visit [employer] FI[employer] TICKETER-C Milagros Hunter HARVEST FIELD TICKETER Work Phone: [facility]-Emergency Department Work Phone: Start: 10-21-2022 End: 10-21-2022 ambulatory [facility] Facility:[facility] Start: 10-09-2022 Non-patient / Non-visit [employer] TICKETER-C Milagros Hunter HARVEST FIELD TICKETER Work Phone: [facility] Start: 10-09-2022 End: 10-09-2022 Admission to same day surgery center HAR[employer] FIELD TICKETER-C Milagros Hunter HARVEST FIELD TICKETER Work Phone: [facility]-Endoscopy Start: 10-09-2022 End: 10-09-2022 ambulatory [employer] FIELD TICKETER-C Milagros Hunter HARVEST FIELD TICKETER Work Phone: [facility] Work Phone: Start: 10-07-2022 Non-patient / Non-visit [employer] FI[employer] TICKETER-C Milagros Hunter HARVEST FIELD TICKETER Work Phone: [facility] Start: 10-02-2022 End: 10-17-2022 Evaluation and management of inpatient [employer] FIELD TICKETER-C Milagros Hunter HARVEST FIELD TICKETER Work Phone: [facility]-Transitional Care Unit Start: 10-02-2022 Non-patient / Non-visit [employer] FI[employer] TICKETER-C Milagros Hunter HARVEST FIELD TICKETER Work Phone: [facility] Start: 10-01-2022 Non-patient / Non-visit HAR[employer] FIELD TICKETER-C Milagros Hunter HARVEST FIELD TICKETER Work Phone: [facility] Start: 09-30-2022 Non-patient / Non-visit HAR[employer] FIELD TICKETER-C Milagros Hunter HARVEST FIELD TICKETER Work Phone: [facility] Start: 09-29-2022 Non-patient / Non-visit HAR[employer]ST FIELD TICKETER-C Milagros Hunter HARVEST FIELD TICKETER Work Phone: [facility] Start: 09-29-2022 End: 10-02-2022 Evaluation and management of inpatient [employer] FIELD TICKETER-C Milagros Hunter HAR[employer]ST FIELD TICKETER Work Phone: [facility]-Medical Surgical 3 Start: 09-16-2022 End: 09-16-2022 ambulatory HAR[employer] FIELD TICKETER-C Milagros Hunter HARVEST FIELD TICKETER Work Phone: [facility] Work Phone: Start: 09-16-2022 End: 09-16-2022 Patient encounter procedure HAR[employer] FIELD TICKETER-C Milagros Hunter HARVEST FIELD TICKETER Work Phone: [facility]-Laboratory Start: 06-24-2022 End: 06-24-2022 ambulatory [employer] FI[employer] TICKETER-C Milagros Hunter HARVEST FIELD TICKETER Work Phone: [facility] Work Phone: Start: 06-24-2022 End: 06-24-2022 Patient encounter procedure HAR[employer] FIELD TICKETER-C Milagros Hunter HARVEST FIELD TICKETER Work Phone: [facility]-Outpatient Breast Imaging Start: 05-27-2022 End: 05-27-2022 ambulatory [employer] FI[employer] TICKETER-C Milagros Hunter HARVEST FIELD TICKETER Work Phone: [facility] Work Phone: Start: 05-27-2022 End: 05-27-2022 Patient encounter procedure [employer] FI[employer] TICKETER-C Milagros Robleser HARVEST FIELD TICKETER Work Phone: [facility]-Outpatient Bone Densitometry Start: 05-27-2022 End: 05-27-2022 Patient encounter procedure HAR[employer]ST FIELD TICKETER-C Milagros Hunter HARVEST FIELD TICKETER Work Phone: [facility] Start: 05-19-2022 End: 05-20-[address] ZULEMA MOLINA MD. Facility:[facility] Start: 05-19-2022 End: 05-19-[address] ZULEMA MOLINA MD [facility] Start: 05-11-2022 End: 05-11-2022 Emergency department patient visit [facility]-Emergency Department Start: 05-04-2022 End: 05-04-2022 Emergency department patient visit [facility]-Emergency Department Start: 04-27-2022 End: 04-27-2022 Emergency department patient visit [facility] Start: 01-28-2022 End: 01-28-2022 ambulatory [employer] TICKETER-C Milagros Hunter HARVEST FIELD TICKETER Work Phone: [facility] Work Phone: Start: 01-28-2022 End: 01-28-2022 Patient encounter procedure HAR[employer] FIELD TICKETER-C Milagros Hunter HARVEST FIELD TICKETER Work Phone: [facility]-Laboratory Start: 12-18-2021 End: 12-18-2021 Patient encounter procedure HAR[employer] FIELD TICKETER-C Milagros Hunter HARVEST FIELD TICKETER Work Phone: [facility] Start: 11-13-2021 End: 11-13-2021 Patient encounter procedure [employer] FIELD TICKETER-C Milgaros Hunter HARVEST FIELD TICKETER Work Phone: [facility] Start: 10-18-2021 End: 10-18-2021 Emergency department patient visit HAR[employer]ST FIELD TICKETER-Micheal Hunter HARVEST FIELD TICKETER Work Phone: [facility]-Emergency Department Start: 10-11-2021 End: 10-11-2021 Patient encounter procedure HAR[employer] FIELD TICKETER-C Milagros Hunter HARVEST FIELD TICKETER Work Phone: [facility] Start: 10-01-2021 Non-patient / Non-visit [employer] FI[employer] TICKETER-C Geraldine Leigh HARVEST FIELD TICKETER Work Phone: [facility] Start: 10-01-2021 End: 10-01-2021 Admission to same day surgery center HAR[employer] FIELD TICKETER-C Geraldine Leigh HARVEST FIELD TICKETER [facility] Start: 09-30-2021 Non-patient / Non-visit [employer] FI[employer] TICKETER-C Milagros Hunter HARVEST FIELD TICKETER Work Phone: [facility] Start: 09-16-2021 End: 09-16-2021 Patient encounter procedure HAR[employer]ST FIELD TICKETER-C Geraldine Leigh HARVEST FIELD TICKETER Work Phone: [facility] Start: 09-16-2021 End: 09-16-2021 Patient encounter procedure HAR[employer]ST FIELD TICKETER-C Geraldine Leigh HARVEST FIELD TICKETER Work Phone: [facility] Start: 09-09-2021 End: 09-09-2021 Patient encounter procedure HAR[employer]ST FIELD TICKETER-C Geraldine Leigh HARVEST FIELD TICKETER Work Phone: [facility] Start: 07-17-2021 End: 07-17-2021 Patient encounter procedure HAR[employer] FIELD TICKETER-C Geraldine Leigh HARVEST FIELD TICKETER Work Phone: [facility] Start: 07-02-2021 Non-patient / Non-visit HAR[employer] FIELD TICKETER-C Geraldine Leigh HARVEST FIELD TICKETER Work Phone: [facility] Start: 07-02-2021 End: 07-02-2021 Admission to same day surgery center HAR[employer] FIELD TICKETER-C Geraldine Leigh HARVEST FIELD TICKETER [facility] Start: 07-01-2021 Non-patient / Non-visit [employer] FIELD TICKETER-C Geraldine Leigh HAR[employer]ST FIELD TICKETER [facility] Start: 06-19-2021 End: 06-19-2021 Patient encounter procedure [employer] FI[employer] TICKETER-C Geraldine Leigh NP Work Phone: [facility] Procedures Date Procedure Procedure Detail [...] Start: 11-27-2022 CT of head without contrast HAR[employer] FIELD TICKETER-C Nicho mena Elsa HAR[employer]ST FIELD TICKETER Work Phone: Start: 10-15-2022 Plain x-ray of pelvis and lower extremity [employer] FI[employer] TICKETER-C Milagros Elsa HAR[employer]ST FIELD TICKETER Work Phone: Start: 10-09-2022 Esophagogastroduodenoscopy HAR[employer] FIELD TICKETER-C Nae chris Elsa HAR[employer]ST FIELD TICKETER Work Phone: Start: 10-06-2022 Viral antigen assay [employer] TICKETER-C Milagros Hunter HAR[employer]ST FIELD TICKETER Work Phone: Start: 10-03-2022 Videoswallow HAR[employer] FIELD TICKETER-C Milagros Elsa HAR[employer]ST FIELD TICKETER Work Phone: Start: 10-02-2022 Viral antigen assay [employer] FI[employer] TICKETER-C Milagros Elsa HAR[employer]ST FIELD TICKETER Work Phone: Start: 09-30-2022 Plain X-ray of hip [employer] TICKETER-C Milagros Hunter HAR[employer]ST FIELD TICKETER Work Phone: Start: 09-30-2022 Primary uncemented hemiarthroplasty of hip [employer] FIELD TICKETER-C Milagros Hunter HAR[employer]ST FIELD TICKETER Work Phone: Start: 09-29-2022 MRI of lower extremity [employer] TICKETER-C Milagros Hunter HAR[employer]ST FIELD TICKETER Work Phone: Start: 09-29-2022 CT cervical spine without contrast [employer] FIELD TICKETER-C Milagros Hunter HAR[employer]ST FIELD TICKETER Work Phone: Start: 09-29-2022 CT of head without contrast [employer] FIELD TICKETER-C Nicho Hunter HAR[employer]ST FIELD TICKETER Work Phone: Start: 09-29-2022 Pelvis X-ray [employer] TICKETER-C Milagros Hunter HAR[employer] FIELD TICKETER Work Phone: Start: 09-29-2022 Plain X-ray of femur [employer] TICKETER-C Milagros Hunter HAR[employer]ST FIELD TICKETER Work Phone: Start: 06-24-2022 Screening mammography [employer] TICKETER-C Milagros Hunter HAR[employer]ST FIELD TICKETER Work Phone: Start: 05-27-2022 Dual energy X-ray absorptiometry [employer] TICK[employer]ER-C Regino Hunter HAR[employer]ST FIELD TICKETER Work Phone: Start: 05-11-2022 Computed tomography of abdomen and pelvis with intravenous contrast Start: 05-04-2022 Computed tomography of abdomen and pelvis with contrast Start: 10-18-2021 Plain x-ray of hand [employer] TICKETER-C Milagros Hunter HAR[employer] FIELD TICKETER Work Phone: Start: 10-18-2021 Plain X-ray of shoulder [employer] TICKETER-C Milagros Hunter HAR[employer]ST FIELD TICKETER Work Phone: Start: 10-18-2021 X-ray of cervical spine [employer] FI[employer] TICKETER-C Milagros Hunter HAR[employer] FIELD TICKETER Work Phone: Start: 10-01-2021 Repair of incisional hernia using surgical mesh [employer] TICKETER-C Geraldine Leigh HAR[employer]ST FIELD TICKETER Work Phone: Start: 09-16-2021 CT of abdomen and pelvis without contrast [employer] FIELD TICKETER-C Geraldine Leigh HAR[employer]ST FIELD TICKETER Work Phone: Start: 11-19-2016 End: 11-26-2016 CBC [...] ZULEMA MOLINA MD Urine culture Urine culture [employer] TICKETER-C Milagros Hunter HAR[employer]ST FIELD TICKETER Work Phone: Viral antigen assay Viral antigen assay HAR[employer] TICKETER-C Lexie Hunter HAR[employer]ST FIELD TICKETER Work Phone: Plan of Treatment Date Care Activity Detail Author Start: 04-30-2030 Urine microalbumin profile DTa P,Tdap,Td Vaccine (2 - Td or Tdap) [facility] Start: 10-12-2026 Diabetes Screening Diabetes Screenin g [facility] Start: 07-08-2026 Diabetes Screening Diabetes Screenin g [facility] Start: 08-24-2024 End: 08-24-2024 Patient encounter procedure 08/24/2024 11:00 AM EDT Office Visit [facility] [address] [place] [address] Laure Varela II, OD [address] [place] [address] Eye exam Optometry Comment on above: Eye exam Start: 01-10-2024 Influenza vaccination Influenz a Vaccine (Season Ended) [facility] Start: 10-21-2023 End: 10-21-2023 Patient encounter procedure 10/21/2023 11:30 AM EDT Office Visit Plastic Surgery [address] [place] [address] Dc Lemos MD [address] [place] [address] Facial Fracture On 10/13/2023 went to [facility] for this and was told to follow up Plastic Surgery Comment on above: Facial Fracture On went to [facility] for this and was told to follow up Start: 06-30-2023 [facility] Start: 06-30-2023 Plain x-ray of pelvi s and lower extremity HIP, UNI W/ Pelvis 2-3 Views [facility] Start: 06-30-2023 XR Pelvis and Hip Views [facility] Start: 05-11-2023 Advance Directive Discussion Advance Directive Discussion [facility] Start: 05-11-2023 Behavioral Health Screening Behavioral Health Screening [facility] Start: 01-09-2023 Covid-19 Vaccine () Covid-19 Vaccine () [facility] Start: 11-28-2022 Blood chemistry [facility] Start: 11-28-2022 Assessment of risk o f venous thromboembolism [facility] Start: 11-28-2022 Insertion of cathete r into peripheral vein [facility] Start: 11-28-2022 Oxygen therapy [facility] Start: 11-28-2022 Providing care accor ding to standard [facility] Start: 11-28-2022 Provision of activit y privileges [facility] Start: 11-28-2022 Referral to occupati onal therapist [facility] Start: 11-28-2022 Referral to service [facility] Start: 11-28-2022 [facility] Start: 11-28-2022 Verification routine [facility] Start: 11-28-2022 Admission procedure [facility] Start: 11-27-2022 Bacteria identified in Blood by Culture Blood Culture [facility] Start: 11-27-2022 Bacteria identified in Urine by Culture Urine Culture [facility] Start: 11-27-2022 [facility] Start: 11-27-2022 Plain chest X-ray Chest PA and Later al [facility] Start: 11-27-2022 XR Chest PA and Lateral [facility] Start: 11-27-2022 End: 11-27-2022 Blood culture [facility] Start: 11-27-2022 End: 11-27-2022 [facility] Start: 11-07-2022 Blood chemistry [facility] Start: 10-31-2022 Blood chemistry [facility] Start: 10-24-2022 Blood chemistry [facility] Start: 10-17-2022 Blood chemistry [facility] Start: 10-17-2022 Patient discharge [facility] Start: 10-16-2022 Development of care plan [facility] Start: 10-16-2022 [facility] Start: 10-16-2022 [facility] Start: 10-14-2022 Referral to service [facility] Start: 10-13-2022 [facility] Start: 10-10-2022 Blood chemistry [facility] Start: 10-09-2022 Egd insert guide wir e dilator passage esophagus EGD GUIDE WIRE INSERTION [facility] Start: 10-09-2022 Patient discharge [facility] Start: 10-07-2022 Referral to ear, nos e and throat service [facility] Start: 10-07-2022 [facility] [facility] Start: 10-03-2022 Application of device [facility] Start: 10-03-2022 Development of care plan [facility] Start: 10-03-2022 Developing a treatme nt plan [facility] Start: 10-03-2022 Verification routine [facility] Start: 10-03-2022 Introduction of urin samantha catheter [facility] Start: 10-03-2022 Speech therapy assessment [facility] Start: 10-03-2022 Following clinical p athway protocol [facility] Start: 10-02-2022 Admission procedure [facility] Start: 10-02-2022 Measuring intake and output [facility] Start: 10-02-2022 Patient referral to dietitian [facility] Start: 10-02-2022 Referral to occupati onal therapist [facility] Start: 10-02-2022 Referral to service [facility] Start: 10-02-2022 Vital signs measurements [facility] Start: 10-02-2022 End: 10-03-2022 [facility] Start: 10-02-2022 Patient discharge [facility] Start: 10-02-2022 Introduction of urin samantha catheter [facility] Start: 10-01-2022 Speech therapy assessment [facility] Start: 10-01-2022 Removal of urinary catheter [facility] Start: 10-01-2022 Removal of urinary catheter [facility] Start: 09-30-2022 End: 09-30-2022 [facility] Start: 09-30-2022 Ambulation therapy management [facility] Start: 09-30-2022 Application of device [facility] Start: 09-30-2022 Exercises [facility] Start: 09-30-2022 Following clinical p athway protocol [facility] Start: 09-30-2022 Neurovascular assessment [facility] Start: 09-30-2022 Patient education [facility] Start: 09-30-2022 Provision of activit y privileges [facility] Start: 09-30-2022 Recommendation to co judie with treatment [facility] Start: 09-30-2022 Referral to occupati onal therapist [facility] Start: 09-30-2022 Referral to service [facility] Start: 09-30-2022 Vital signs measurements [facility] Start: 09-30-2022 Wound care [facility] Start: 09-29-2022 End: 09-30-2022 [facility] Start: 09-29-2022 Ambulation without limitation [facility] Start: 09-29-2022 Assessment of risk o f venous thromboembolism [facility] Start: 09-29-2022 Consultation [facility] Start: 09-29-2022 Inhalation therapy procedure [facility] Start: 09-29-2022 Insertion of cathete r into peripheral vein [facility] Start: 09-29-2022 Measuring intake and output [facility] Start: 09-29-2022 Providing care accor ding to standard [facility] Start: 09-29-2022 Referral to occupati onal therapist [facility] Start: 05-22-2023 Referral to service [facility] Start: 09-29-2022 Care of central veno us catheter [facility] Start: 09-29-2022 Following clinical p athway protocol [facility] Start: 09-29-2022 Admission procedure [facility] Start: 09-29-2022 Patient referral to dietitian [facility] Start: 09-29-2022 [facility] Start: 09-16-2022 Procedure [facility] Start: 05-04-2022 [facility] Work Phone: Start: 05-04-2022 [facility] Start: 01-28-2022 Procedure [facility] Work Phone: Start: 10-01-2021 Anes hrna rpr upr ab d lmbr&ventral hernia&dehisc ANESTH REPAIR OF HERNIA [facility] Work Phone: Start: 10-01-2021 Repair first abdomin al wall hernia RPR VENTRAL UTE INIT REDUC [facility] Work Phone: Start: 09-09-[address] [facility] Work Phone: Start: 07-02-2021 Anesthesia intraperi toneal lower abd w/laps nos ANESTH SURG LOWER ABDOMEN [facility] Work Phone: Start: 07-02-2021 Laparoscopy w/rmvl a dnexal structures LAPAROSCOPY REMOVE ADNEXA [facility] Work Phone: Start: 10-19-2017 End: 10-19-2017 Appointment [facility] Work Phone: Start: 11-19-2016 End: 11-26-2016 CBC W Auto Differential panel - Blood *CBC without Diff [facility] Work Phone: Start: 11-19-2016 End: 11-26-2016 Thyroid stimulating hormone (TSH) *TSH [facility] Work Phone: Start: 11-18-2016 End: 11-14-2016 Stress Echocardiogram - Dobutamine Stress Echocardiogram - Dobutamine [facility] Work Phone: Start: 10-20-2016 End: 10-20-2016 Follow Up Appt 1 year Follow Up Appt 1 year [facility] Work Phone: Start: 10-20-2016 End: 10-20-2016 Follow Up Appt Other Follow Up Appt Other [facility] Work Phone: Start: 10-20-2016 End: 10-20-2016 PFM PFM [facility] Work Phone: Start: 10-20-2016 End: 10-20-2016 Stress Echocardiogram - Dobutamine Stress Echocardiogram - Dobutamine [facility] Work Phone: Start: 10-15-2015 End: 10-15-2015 Follow Up Appt 1 year Follow Up Appt 1 year [facility] Work Phone: Start: 10-15-2015 End: 10-15-2015 PFM PFM [facility] Work Phone: Start: 05-01-2015 End: 05-01-2015 Follow Up Appt 6 months Follow Up Appt 6 months [facility] Work Phone: Start: 05-01-2015 End: 05-01-2015 PFM PFM [facility] Work Phone: Start: 11-06-2014 End: 11-06-2014 Electrocardiogram, complete EKG (In office) [facility] Work Phone: Start: 11-06-2014 End: 11-06-2014 Follow Up Appt 6 months Follow Up Appt 6 months [facility] Work Phone: Start: 11-06-2014 End: 11-06-2014 MMM MMM [facility] Work Phone: Start: 03-15-2014 End: 03-15-2014 Follow Up Appt 6 months Follow Up Appt 6 months [facility] Work Phone: Start: 03-15-2014 End: 03-15-2014 PFM PFM [facility] Work Phone: Start: 01-26-2014 End: 01-26-2014 Echocardiography Echocardiogram (complete) [facility] Work Phone: Start: 01-26-2014 End: 03-02-2014 Electrocardiogram, [facility] ([facility] Work Phone: Start: 01-26-2014 End: 01-26-2014 Follow Up Appt 6 weeks Follow Up Appt 6 weeks [facility] Work Phone: Start: 01-26-2014 End: 01-26-2014 MMM MMM [facility] Work Phone: Start: 01-26-2014 End: 01-26-2014 Stress Echocardiogram - Dobutamine Stress Echocardiogram - Dobutamine [facility] Work Phone: Start: 09-08-2003 Screening for osteoporosis Bone Dens ity Screening [facility] Start: 1998 RSV Vaccine (1 - 1-d ose 60+ series) RSV Vaccine (1 - 1-dose 60+ series) [facility] Start: 1957 Shingrix Vaccine (1 of 2) Hahn grix Vaccine (1 of 2) [facility] Start: 1949 Screening for malign ant neoplasm of cervix Cervical Cancer Screening [facility] Anion gap measurement [facility] Anion gap measurement [facility] Anion gap measurement [facility] Anion gap measurement [facility] Anion gap measurement [facility] Anion gap measurement [facility] Bacteria identified in Urine by Culture Urine Culture [facility] Work Phone: BUN/Creatinine ratio [facility] BUN/Creatinine ratio [facility] BUN/Creatinine ratio [facility] BUN/Creatinine ratio [facility] BUN/Creatinine ratio [facility] BUN/Creatinine ratio [facility] Calcium [Mass/volume ] in Serum or Plasma [facility] Calcium [Mass/volume ] in Serum or Plasma [facility] Calcium [Mass/volume ] in Serum or Plasma [facility] Calcium [Mass/volume ] in Serum or Plasma [facility] Calcium [Mass/volume ] in Serum or Plasma [facility] Calcium [Mass/volume ] in Serum or Plasma [facility] Carbon dioxide, tota l [Moles/volume] in Serum or Plasma [facility] Carbon dioxide, tota l [Moles/volume] in Serum or Plasma [facility] Carbon dioxide, tota l [Moles/volume] in Serum or Plasma [facility] Carbon dioxide, tota l [Moles/volume] in Serum or Plasma [facility] Carbon dioxide, tota l [Moles/volume] in Serum or Plasma [facility] Carbon dioxide, tota l [Moles/volume] in Serum or Plasma [facility] Chloride [Moles/volu me] in Serum or Plasma [facility] Chloride [Moles/volu me] in Serum or Plasma [facility] Chloride [Moles/volu me] in Serum or Plasma [facility] Chloride [Moles/volu me] in Serum or Plasma [facility] Chloride [Moles/volu me] in Serum or Plasma [facility] Chloride [Moles/volu me] in Serum or Plasma [facility] Creatinine [Moles/vo lume] in Serum or Plasma [facility] Creatinine [Moles/vo lume] in Serum or Plasma [facility] Creatinine [Moles/vo lume] in Serum or Plasma [facility] Creatinine [Moles/vo lume] in Serum or Plasma [facility] Creatinine [Moles/vo lume] in Serum or Plasma [facility] Creatinine [Moles/vo lume] in Serum or Plasma [facility] Glucose [Mass/volume ] in Serum or Plasma [facility] Glucose [Mass/volume ] in Serum or Plasma [facility] Glucose [Mass/volume ] in Serum or Plasma [facility] Glucose [Mass/volume ] in Serum or Plasma [facility] Glucose [Mass/volume ] in Serum or Plasma [facility] Glucose [Mass/volume ] in Serum or Plasma [facility] Hematocrit [Volume Fraction] of Blood [facility] Hematocrit [Volume Fraction] of Blood [facility] Hematocrit [Volume Fraction] of Blood [facility] Hematocrit [Volume Fraction] of Blood [facility] Hematocrit [Volume Fraction] of Blood [facility] Hematocrit [Volume Fraction] of Blood [facility] Hemoglobin [Mass/vol ume] in Blood [facility] Hemoglobin [Mass/vol ume] in Blood [facility] Hemoglobin [Mass/vol ume] in Blood [facility] Hemoglobin [Mass/vol ume] in Blood [facility] Hemoglobin [Mass/vol ume] in Blood [facility] Hemoglobin [Mass/vol ume] in Blood [facility] Leukocytes [#/volume ] in Blood [facility] Leukocytes [#/volume ] in Blood [facility] Leukocytes [#/volume ] in Blood [facility] Leukocytes [#/volume ] in Blood [facility] Leukocytes [#/volume ] in Blood [facility] Leukocytes [#/volume ] in Blood [facility] Mean corpuscular hemoglobin concentration determination [facility] Mean corpuscular hemoglobin concentration determination [facility] Mean corpuscular hemoglobin concentration determination [facility] Mean corpuscular hemoglobin concentration determination [facility] Mean corpuscular hemoglobin concentration determination [facility] Mean corpuscular hemoglobin concentration determination [facility] Mean corpuscular hemoglobin determination [facility] Mean corpuscular hemoglobin determination [facility] Mean corpuscular hemoglobin determination [facility] Mean corpuscular hemoglobin determination [facility] Mean corpuscular hemoglobin determination [facility] Mean corpuscular hemoglobin determination [facility] Measurement of renal function [facility] Measurement of renal function [facility] Measurement of renal function [facility] Measurement of renal function [facility] Measurement of renal function [facility] Measurement of renal function [facility] Neutrophil count [facility] Neutrophil count [facility] Neutrophil count [facility] Neutrophil count [facility] Neutrophil count [facility] Neutrophil count [facility] Neutrophil percent differential count [facility] Neutrophil percent differential count [facility] Neutrophil percent differential count [facility] Neutrophil percent differential count [facility] Neutrophil percent differential count [facility] Neutrophil percent differential count [facility] Patient Education [facility] Work Phone: Patient referral [facility] Work Phone: Platelets [#/volume] in Blood [facility] Platelets [#/volume] in Blood [facility] Platelets [#/volume] in Blood [facility] Platelets [#/volume] in Blood [facility] Platelets [#/volume] in Blood [facility] Platelets [#/volume] in Blood [facility] Potassium [Moles/vol ume] in Serum or Plasma [facility] Potassium [Moles/vol ume] in Serum or Plasma [facility] Potassium [Moles/vol ume] in Serum or Plasma [facility] Potassium [Moles/vol ume] in Serum or Plasma [facility] Potassium [Moles/vol ume] in Serum or Plasma [facility] Potassium [Moles/vol ume] in Serum or Plasma [facility] Procedure [facility] Work Phone: Red blood cell count [facility] Red blood cell count [facility] Red blood cell count [facility] Red blood cell count [facility] Red blood cell count [facility] Red blood cell count [facility] Red cell distributio n width determination [facility] Red cell distributio n width determination [facility] Red cell distributio n width determination [facility] Red cell distributio n width determination [facility] Red cell distributio n width determination [facility] Red cell distributio n width determination [facility] Sodium [Moles/volume ] in Serum or Plasma [facility] Sodium [Moles/volume ] in Serum or Plasma [facility] Sodium [Moles/volume ] in Serum or Plasma [facility] Sodium [Moles/volume ] in Serum or Plasma [facility] Sodium [Moles/volume ] in Serum or Plasma [facility] Sodium [Moles/volume ] in Serum or Plasma [facility] Urea nitrogen [Mass/volume] in Serum or Plasma [facility] Urea nitrogen [Mass/volume] in Serum or Plasma [facility] Urea nitrogen [Mass/volume] in Serum or Plasma [facility] Urea nitrogen [Mass/volume] in Serum or Plasma [facility] Urea nitrogen [Mass/volume] in Serum or Plasma [facility] Urea nitrogen [Mass/volume] in Serum or Plasma [facility] Immunizations Immunization Date Immunization Notes Care Provider Kamlaa [facility] 10-13-2023 tetanus toxoid, redu natalee diphtheria toxoid, and acellular pertussis vaccine, adsorbed MILAGROS ELSA [employer] [facility] 10-16-2022 pneumococcal 20-edel nt conjugate vaccine 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[employer] SPR[employer]ER [facility] 10-16-2022 Pneumococcal Vaccine PCV20 (Prevnar 20) [employer] Milagros Hunter [employer] Work Phone: [facility] 03-25-2022 influenza virus vacc ine, unspecified formulation DR ZULEMA MOLINA MD [facility] 03-25-2022 Influenza, high dose seasonal Milagros Hunter [employer] Work Phone: [facility] 03-25-2022 influenza, high dose seasonal, preservative-free [employer] Milagros Hunter [employer] Work Phone: [facility] 06-11-2021 SARS-CoV-2 (COVID-19 ) mRNA-[address] ZULEMA MOLINA MD [facility] 04-16-2021 influenza virus vacc ine, unspecified formulation DR ZULEMA MOLINA MD [facility] 04-16-2021 influenza, injectabl e, quadrivalent, preservative free [employer] Milagros Hunter [employer] T[employer] Work Phone: [facility] 04-16-2021 influenza, seasonal, injectable [employer] Milagros Hunter [employer] Work Phone: [facility] 07-05-2020 SARS-CoV-2 (COVID-19 ) mRNA-[address] ZULEMA MOLINA MD [facility] 06-07-2020 SARS-CoV-2 (COVID-19 ) mRNA-[address] ZULEMA MOLINA MD [facility] 04-30-2020 tetanus toxoid, redu natalee diphtheria toxoid, and acellular pertussis vaccine, adsorbed DR ZULEMA MOLINA MD [facility] 03-27-2020 influenza virus vacc ine, unspecified formulation DR ZULEMA MOLINA MD [facility] 03-27-2020 Influenza, high dose seasonal Milagros Elsa [employer] Work Phone: [facility] 03-27-2020 influenza, high dose seasonal, preservative-free [employer] Milagros Elsa [employer] T[employer] Work Phone: [facility] 03-16-2019 influenza virus vacc ine, unspecified formulation DR ZULEMA MOLINA MD [facility] 03-16-2019 influenza, injectabl e, quadrivalent, preservative free [employer] Milagros Elsa [employer] FI[employer] T[employer] Work Phone: [facility] 03-16-2019 influenza, seasonal, injectable [employer] Milagros Elsa [employer] Work Phone: [facility] 03-12-2018 influenza virus vacc ine, unspecified formulation DR ZULEMA MOLINA MD [facility] 03-12-2018 influenza, injectabl e, quadrivalent, preservative free [employer] Milagros Elsa [employer] FI[employer] T[employer]ER Work Phone: [facility] 03-12-2018 influenza, seasonal, injectable [employer] Milagros Elsa [employer] T[employer]ER Work Phone: [facility] 05-01-2017 influenza virus vacc ine, unspecified formulation DR ZULEMA MOLINA MD [facility] 05-01-2017 influenza, injectabl e, quadrivalent, preservative free [employer] Milagros Elsa [employer] Work Phone: [facility] 05-01-2017 influenza, seasonal, injectable [employer] Milagros Elsa [employer] Work Phone: [facility] 11-07-2016 pneumococcal polysaccharide vaccine, [address] ZULEMA MOLINA MD [facility] 07-02-2016 influenza virus vacc ine, unspecified formulation DR ZULEMA MOLINA MD [facility] 07-02-2016 influenza, injectabl e, quadrivalent, preservative free [employer] Milagros Elsa [employer] Work Phone: [facility] 07-02-2016 influenza, seasonal, injectable [employer] Milagros Elsa [employer] Work Phone: [facility] 03-28-2015 influenza virus vacc ine, unspecified formulation DR ZULEMA MOLINA MD [facility] 03-28-2015 influenza, injectabl e, quadrivalent, preservative free [employer] Milagros Elsa [employer] Work Phone: [facility] 03-28-2015 influenza, seasonal, injectable [employer] Milagros Elsa [employer] Work Phone: [facility] 03-10-2014 influenza virus vacc ine, unspecified formulation DR ZULEMA MOLINA MD [facility] 03-10-2014 influenza, injectabl e, quadrivalent, preservative free [employer] Milagros Elsa [employer] Work Phone: [facility] 03-10-2014 influenza, seasonal, injectable [employer] Milagros Elsa [employer] T[employer] Work Phone: [facility] 03-10-2014 pneumococcal polysaccharide vaccine, [address] ZULEMA MOLINA MD [facility] 06-29-2013 influenza virus vacc ine, unspecified formulation DR ZULEMA MOLINA MD [facility] 06-29-2013 influenza, injectabl e, quadrivalent, preservative free [employer] Milagros Hunter [employer] Work Phone: [facility] 06-29-2013 influenza, seasonal, injectable [employer] Milagros Robleser [employer] Work Phone: [facility] 04-22-2012 influenza virus vacc ine, unspecified formulation DR ZULEMA MOLINA MD [facility] 04-22-2012 influenza, injectabl e, quadrivalent, preservative free [employer] Milagros Hunter [employer] Work Phone: [facility] 04-22-2012 influenza, seasonal, injectable [employer] Milagros Robleser [employer] Work Phone: [facility] Payers Date Payer Category Payer Private Health Insurance [id number] 2023 Self-pay [id number] 2022 Medicaid [id number] 2011 Medicare HUMANA MEDICARE HUMANA MEDICARE PPO [id number] 2011-Present [phone] [place] [address] PPO [id number] 2011 Medicare [id number] 1940 Unknown [id number] 2..840.1.848726.3.579.2.6 1938 Unknown [id number] 2.16.840.1.154712.3.579.2.6 27 1938 Unknown [id number] 2.16.840.1.918022.3.579.2.6 1938 Unknown [id number] 2.16.840.1.240235.3.579.2.6 51 1938 Unknown [id number] 2.16.840.1.263306.3.579.2.6 51 1938 Unknown [id number] 2.16.840.1.806952.3.579.2.1 243 1938 Unknown [id number] 2.16.840.1.429096.3.579.2.1 243 1938 Unknown [id number] 2.16.840.1.289690.3.579.2.1 243 1938 Unknown [id number] 2.16.840.1.566117.3.579.2.1 243 1938 Unknown [id number] 2.16.840.1.479877.3.579.2.1 243 1938 Unknown [id number] 2.16.840.1.215144.3.579.2.1 243 1938 Unknown [id number] 2.16.840.1.369283.3.579.2.1 1938 Unknown [id number] 2.16.840.1.381549.3.579.2.1 1938 Unknown [id number] 2.16.840.1.931470.3.579.2.1 1938 Unknown [id number] 2.16.840.1.040056.3.579.2.1 1938 Unknown [id number] 2.16.840.1.126680.3.579.2.1 1938 Unknown [id number] 2.16.840.1.339893.3.579.2.1 1938 Unknown [id number] 2.16.840.1.564652.3.579.2.1 1938 Unknown [id number] 2.16.840.1.197710.3.579.2.1 1938 Unknown [id number] 2.16.840.1.140749.3.579.2.1 1938 Unknown [id number] 2.16.840.1.022935.3.579.2.1 1938 Unknown [id number] 2.16.840.1.673778.3.579.2.1 1938 Unknown [id number] 2.16.840.1.085988.3.579.2.1 1938 Unknown [id number] 2.840.1.680515.3.579.2.1 1938 Unknown [id number] 2.840.1.951025.3.579.2.1 1938 Unknown [id number] 2.840.1.600307.3.579.2.1 1938 Unknown [id number] 2.840.1.598444.3.579.2.1 [facility] 1940 Unknown [id number] 2.840.1.204813.3.579.2.1 1938 Unknown [id number] 2.840.1.000299.3.579.2.1 [facility] 1940 Unknown [id number] 2.840.1.479322.3.579.2.1 [facility] 1938 Unknown [id number] 2.16840.1.380189.3.579.2.1 245 Medicaid MEDICAID [id number] Unknown [id number] 2.16840.1.647533.3.579.2.4 62 Unknown [id number] 2.16840.1.354745.3.579.2.4 62 Unknown [id number] 2.16.840.1.030176.3.579.2.4 62 Unknown [id number] 2.16.840.1.889794.3.579.2.4 62 Unknown [id number] 2.16.840.1.347077.3.579.2.4 62 Unknown [id number] 2.16.840.1.715766.3.579.2.4 62 Unknown [id number] 2.16.840.1.076180.3.579.2.4 62 Unknown [id number] 2.16.840.1.619365.3.579.2.4 62 Unknown [id number] 2.16.840.1.467300.3.579.2.4 62 Unknown [id number] 2.16.840.1.301616.3.579.2.4 62 Unknown [id number] 2.16.840.1.272939.3.579.2.4 62 Unknown [id number] 2.16.840.1.278250.3.579.2.4 62 Unknown [id number] 2.16.840.1.035333.3.579.2.4 62 Unknown [id number] 2.16.840.1.526673.3.579.2.4 62 Unknown [id number] 2.16.840.1.317689.3.579.2.4 62 Social History Date Type Detail Facility [facility] Work Phone: Start: 09-16-2021 End: 06-30-2023 Tobacco smoking status TNIS Unknown if ever smoked [facility] Start: 1940 Sex Assigned At Female A [facility] Start: 12-18-2021 End: 03-07-2024 Tobacco smoking status Never smoked tobacco (finding) [facility] Start: 05-26-2015 Tobacco use and exposure Smokeless tobacco non-user [facility] Start: 08-20-2023 Alcohol intake Ex-drinker (finding) [facility] Start: 08-20-2023 History of Social function [facility] Start: 08-20-2023 Area Deprivation Index [facility] National Score (1-100), lower number is lower risk 47 [facility] Start: 1940 Sex Assigned At Not on file C [facility] Start: 07-20-2024 Sex Female (finding) [facility] NEGATED: Highlighted row [facility] Medical Equipment Procedure Code Equipment Code Equipment Origin al Text Equipment Identifier Dates Primary uncemented hemiarthroplasty of hip KIT,FEMORAL BONE CEMENT PREP FDA Start: 09-30-2022 Primary uncemented hemiarthroplasty of hip ([id number]) Uncoated hip femur prosthesis, one-piece ()[id number])[id number] FDA Start: 09-30-2022 Primary uncemented hemiarthroplasty of hip (570298447) Orthopaedic cement spacer ()[id number])[id number] FDA Start: 09-30-2022 Primary uncemented hemiarthroplasty of hip (455973257) Coated hip femur prosthesis, modular ()[id number])[id number] FDA Start: 09-30-2022 Primary uncemented hemiarthroplasty of hip (248523824) Uncoated hip femur prosthesis, one-piece ()[id number])[id number] FDA Start: 09-30-2022 Primary uncemented hemiarthroplasty of hip Orthopaedic cement, non-antimicrobial ()[id number])[id number] FDA Start: 09-30-2022 Primary uncemented hemiarthroplasty [...] Result Facility 10-17-2022 Functional status Ambulates;Up ad gyae [facility] Work Phone: 10-09-2022 Functional status Bedrest [facility] Work Phone: 10-07-2022 Functional status Tolerates Activity Fair [facility] Work Phone: 10-02-2022 Functional status Chair [facility] Work Phone: 10-02-2022 Functional status Assistive Hannah faheem Rolling Walker [facility] Work Phone: 09-30-2022 Functional status Tolerates Activity Fair [facility] Work Phone: 05-19-2022 Functional Status Standard Safet y Precautions maintained [facility] 05-19-2022 Functional Status [facility] Mental Status Date Assessment Result Facility 11-27-2022 Cognitive function Level Of Cons ciousness Awake;Alert;Appropriate;Follow s Commands [facility] Work Phone: 10-17-2022 Cognitive function Voice/Name [facility] Work Phone: 10-13-2022 Cognitive function Appropriate [facility] Work Phone: 10-09-2022 Cognitive function Voice/Name [facility] Work Phone: 10-08-2022 Cognitive function Voice/Name [facility] Work Phone: 10-02-2022 Cognitive function Voice/Name [facility] Work Phone: 05-19-2022 Mental Status Orientation Oriented x 4 [facility] 10-01-2021 Cognitive function Voice/Name [facility] Work Phone: 07-02-2021 Cognitive function Voice/Name [facility] Work Phone: Clinical Notes 12-10-2015 to 09-17-2024 Note Date & Type Note Facility 09-17-2024 Radiology Diagnostic study note [facility] Imaging Services [address] [place] [address] Cerv Spine 2 or 3 Views MR#: [id number] Acct: [id number] Name: HUYEN VALERIO Rep #: [id number] : 1940 F 84 From: Kelli Manning MD PCP: KULDIP BarreraC Status: HECTOR Nix CLI Study:Cerv Spine 2 or 3 Views Date of Exam: 09/15/24 Exam# [id number] Ordering Dr: Gi Hoskins MD EXAM: XR [...] the cervical spine as described. Reading Location: [facility] CC: HARVEST FIELD TICKETER-Micheal Hunter; Dr. Mylene Hoskins MD ~ Condenser Tube Tender: Signed [facility] 07-05-2024 Radiology Diagnostic study note [facility] Imaging Services [address] [place] [address] Thoracic Spine 3 Views MR#: [id number] Acct: [id number] Name: HUYEN VALERIO I Rep #: [id number] : 1940 F 83 From: Bret Clemens MD PCP: KULDIP BarreraC Status: HECTOR G CLI Study:Thoracic Spine 3 Views Date of Exam: 07/05/24 Exam# [id number] Ordering Dr: Gi Hoskins MD PROCEDURE: THORACIC [...] the thoracic vertebrae. Increased kyphosis. Reading Location: [id number] CC: HARVEST FIELD TICKETER-C Milagros Hunter; Dr. Mylene Hoskins MD ~ Condenser Tube Tender: Signed [facility] 06-28-2024 Evaluation note Diagnosis Onset Date Resolution Hiatal hernia with GERD acute June 28, 9:15am Nausea acute June 28, 2024 9:15am [facility] Work Phone: 1(964) 942-519811-19-2024 Evaluation note* Diagnosis Onset Date Resolution Status Admit Date Hiatal hernia with GERD acute N ovember 2023 1:49pm Nausea acute March 29, 2024 1:49pm Hiatal hernia with GERD acute F ebruary 2024 9:15am Nausea acute June 28, 2024 9:15am [facility] Work Phone: 1(560) 978-838810-29-2024 [facility] Medical Records Department [address] [place] [address] History Physical Exam 03/08/24 1152 MR#: [id number] Acct: [id number] Name: HUYEN VALERIO I Rep #: [id number] : 1940 83 From: Jimenez Friend DO PCP: YENIFER Barrera Status:[facility] Location: [address] History and Physical Date of Admission: 03/08/24 UHYEN VALERIO, is a 83 F who presents to the office today for establishment with [facility]. 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 [facility]-2024 NoteHNO ID: [id number] Author: LAURE VARELA II, OD Service: ? 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 M06.9 Rheumatoid arthritis involving multiple sites, unspecified whether rheumatoid factor present ([facility]) Comment: No ocular complications at this time. [...] of its relevant components. documented in this encounterProm[facility]07-20-2023 Discharge summary Author Tommy Vazquez [facility] November 27, 2022 2:18pm Note Date/Time November 27, 2022 11:5 0am [facility] Medical Records Department [address] [place] [address] Emergency Department Summary 11/27/22 MR#: [id number] Acct: [id number] Name: HUYEN VALERIO I Rep #:[id number] : 1940 82 From: Tommy Vazquez MD [...] Yes (Total hip arthroplasty on the right) [facility] Medical History Arthritis Back pain Cardiology follow-up [...] 90.7 H Lymph % (Auto) 2.2 L [place] % (Auto) 5.7 Eos % (Auto) 0.2 [...] Clarity Clear Urine pH 5.0 Ur Specific [place] 1.020 Urine Protein 30 H Urine Glucose [...] 386 ms. There is evidenceof low voltage. [place] is to the left as well. 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 The committee member Dr. Leiva was paged through service. [place] has attempted to contact patient's nurse practitioner [...] Referrals: Katarina Wilks MD [Med Staff - Retail Sales Advisor] - As soon as possible Milagros Hunter NP, HARVEST FIELD TICKETER-C [Primary Care Provider] - 2 Days Activity [...] your Primary Care Provider. Call [facility] ([phone]) or report to the closest Emergency Room. Call 911 if necessary. 11/27/22 1418 <Electronically signed by Tommy Vazquez MD> Kristinaigner Signature (if applicable): CC: YENIFER Hunter ~ Signed [facility] Work Phone: 1(681) 889-686906-01-2023 History and physical note Author Jimenez Friend [facility] October 09, 2022 12:42pm Note Date/Time October 09, 2022 12:42 pm [facility] Medical Records Department [address] [place] [address] History & Physical Exam 10/09/22 1242 MR#: [id number] Acct: [id number] Name: HUYEN VALERIO I Rep #:[id number] : 1940 82 From: Jimenez Matthew DO PCP: Milagros Hunter, HARVEST FIELD TICKETER-C Status:RE [facility] Location: [place] [address] History and Physical Date of Admission: 10/09/22 HUYEN VALERIO, is a 82 F with a history of rheumatoid arthritis, Sjogren's syndrome and possibly scleroderma and she is on methotrexate, prednisone, Xeljanz, folic acid and Celebrex by her committee member Dr. Church.? Bilateral hand, wrist and small [...] pillsand liquids over the last 6 months. [facility] Medical History?(Updated 10/07/22 @ 17:56 by [...] 10/03/22 14:22? SLA? (Rec: 10/03/22 14:23? SLA? [id number]) ?Nutrition ?? ? Malnutrition ? ? ? [...] w/ meals tid and ? d/c Ensure [place] High Protein ? [facility]. ? Rec consider appetite ? stimulant to [...] Signature (if applicable): CC: YENIFER Hunter; Jimenez Mtathew DO~ Signed [facility] Work Phone: 1(952) 408-912906-01-2023 Procedure [facility] 10-09-2022 Procedure [facility]01-09-2023 Evaluation + Plan noteExtracted from: Title:Clinical Document Author:ZULEMA MOLINA Date:05/19/22 CYCLONE ADMISSION HISTORY AN D PHYSICIAL CHIEF COMPLAINT: HISTORY OF PRESENT ILLNESS: REVIEW OF SYSTEMS: ACTIVE PROBLEMS: (6) Dysphagia (68676476) Elevated liver enzymes (2587313913) Hiatal hernia with GERD (11cm 11/29/13) (0299414292) Osteoporosis (723892228) Rheumatoid arthritis (816954620) Stomach burning (975912247) MEDICATIONS: Active Inpt Meds: None Active PRN Meds: None One Time Meds: None Active IV Meds: Lactated Ringers Infusion 1,000 mL (LR 1,000 mL) Start: 05/19/22 7:38:00 EST, Rate: 50 mL/hr, 05/19/22 7:38:00 EST ALLERGIES: (1) penicillin FAMILY HISTORY: SOCIAL HISTORY: PHYSICAL EXAM: VITALS: IesyxkKxewYCSejlsUVZeQ6UTR3FbowAa(kg) 05/19 07:5836.2--931582EO45/09 50.0 24 Hr Tmax: 36.2 at 05/19 [...] Appointment Date:06/20/2022 11:30:00 AM Scheduled Provider:MILAGROS HUNTER Location:[facility] Appointment Type:PC OV Future Scheduled Tests Radiology* MA Mammo Screening Bilateral w/ Gabriel 05/16/22 * BD Bone Density DEXA Axial Skeleton 03/21/22 [facility] 01-09-2023 Hospital Discharge instructions Patient Education 05/19/2022 [...] until you are awake and alert. Take zjik-dev-eprduuc and prescription medicines only as told by [...] 02/15/2014 Document Revised: 04/09/2018 Document Reviewed: 08/16/2016 [employer] Patient Education 2020 [employer] 05/19/2022 10:17:21 Esophagogastroduodenoscopy, Care After (62452) Esophagogastroduodenoscopy, Care After Refer to this sheet [...] 04/13/2013 Document Revised: 10/02/2016 Document Reviewed: 03/20/2016 [employer] Interactive Patient Education 2019 [employer] Follow Up Care 05/15/2022 08:21:03 With:ZULEMA MOLINA MD Address: [address] [address] [phone] When: Unknown Comments:BIOPSY TAKEN, PLEASE CALL FOR RESULT AND ANY FOLLOW UP [facility] 01-09-2023 Summary of episode note Discharge Instructions Thank you for allowing [facility] to assist you with your healthcare needs. The following is importantdischarge information regarding your hospital visit. Your Care Team MILAGROS HUNTER What to do next Scheduled Follow-Up Appointments Appointment Type When With Where Contact InformationPC OV 06/20/2022 11:30 AM MILAGROS RAO [facility] [address] [place] [address] Follow Up Appointments Follow Up with ZULMEA MOLINA MD When Why: BIOPSY TAKEN, PLEASE CALL FOR RESULT AND ANY FOLLOW UP Where: [address] [facility] [address] [place] [address]- [phone] Allergies penicillin (Hives) Medications Please ask your [...] until you are awake and alert. Take qwbc-zyq-sdzesml and prescription medicines only as told by [...] 02/15/2014 Document Revised: 04/09/2018 Document Reviewed: 08/16/2016 [employer] Patient Education 2020 [employer] Esophagogastroduodenoscopy, Care After Refer to this [...] 04/13/2013 Document Revised: 10/02/2016 Document Reviewed: 03/20/2016 [employer] Interactive Patient Education 2019 [employer] Additional Information VACCINATE! IT SAVES LIVES! Members of the community who have not yet received the COVID-19 vaccine and would like to receive it can visit one of [facility] vaccine clinics. There are many vaccine clinic locations within the [facility]. For locations and available times, please visit [email or web address] It is important to note that some COVID mobile vaccine clinics are held outdoors and may be canceled in rainy or stormy conditions. To learn more about pediatric vaccinations (ages 5-11), we invite you to visit the [employer] [facility] webpage. [email or web address]://[email or web address]/pages/[email or web address]-Jveda-Qdygtsetjes-Hyazxzknvr-Nvrei-Fgu stions.htmlTo learn more about the COVID-19 vaccine, we invite you to visit the [facility] website for a list of frequently asked questions. [email or web address]-Fxnbauke/yhkga-Qzvaczy-Kdxeylktua _Asked-Questions.pdf [facility] Patient [facility] Access Instructions: Stay connected with your healthcare team and access your personal medical information anytime with the [facility] Patient Portal.If you would like a full copy of your medical records, please contact the [facility] Medical Records Department, Thursday through Thursday between 8a.m. and 4:30p.m. Please follow the directions below to access the portal: 1.Access the email account you provided upon registration to the [facility].2.Look for an invitation email from [facility].3.Open the email and access the invitation link: Accept Invitation to [facility]4.Fill in the required suggs to create your account. Sign into [email or web address] with your username and password that you [...] you will allow to register on the [facility] Patient Portal for access to your information. You can also access the [facility] Patient Portal on the [employer]. Simply click on Health Records under [employer] and then click on the [facility] logo. [...] Call your local pharmacy or go to http://bit.ly/7E8Kj4j to find one close to you.3.Make use of household items: Use cat litter or old coffee grounds to dispose medications if other options arenot available. Mix your drugs with these household products, seal them in an airtight container andthrow it into the garbage. Call [facility]: [phone] to be sure your drugs can be [...] Sedation, Adult, Care After Esophagogastroduodenoscopy, Care After (65910) Medication Leaflets My discharge plan and instructions have been reviewed and explained to me and I,HUYEN VALERIO I understand my current condition and have read and understand these discharge instructions. I have received a written copy of the plan/instructions. If I have questions, I am aware that I should contact my doctor. Patient/Fast Food Manager Signature: Date/Time: Relationship to Patient: Witness Name/Signature: Date/Time: [facility]01-09-2023 Anesthesiology Consult note Patient: HUYEN VALERIO I [...] by MADHAVI RUBY on 05/19/2022 10:09 AM [facility]01-09-2023 Note CYCLONE ADMISSION HISTORY AND PHYSICIAL CHIEF COMPLAINT: HISTORY OF PRESENT ILLNESS: REVIEW OF SYSTEMS: ACTIVE PROBLEMS: (6) Dysphagia (01161578) Elevated liver enzymes (5144839082) Hiatal hernia with GERD (11cm 11/29/13) (2023200205) Osteoporosis (218445805) Rheumatoid arthritis (736867925) Stomach burning (536209401) MEDICATIONS: Active Inpt Meds: None Active PRN Meds: None One Time Meds: None Active IV Meds: Lactated Ringers Infusion 1,000 mL (LR 1,000 mL) Start: 05/19/22 7:38:00 EST, Rate: 50 mL/hr, 05/19/22 7:38:00 EST ALLERGIES: (1) penicillin FAMILY HISTORY: SOCIAL HISTORY: PHYSICAL EXAM: VITALS: KccwjoOrwjGFVbclkCTOwA7IKM6EeqxAp(kg) 05/19 07:5836.2--518821KB56/09 50.0 24 Hr Tmax: 36.2 at 05/19 [...] ZULEMA MOLINA MD on 05/19/2022 09:57 AM [facility]01-09-2023 Anesthesiology Consult note Patient: HUYEN VALERIO I Age: 81 years Sex: Female : 1940 Associated Diagnoses: None Author: MADHAVI RUBY APRN-ASSISTANT MEN'S SOCCER COACH Preoperative Information Time of last food or [...] Problem list: Medical Dysphagia / SNOMED CT 13073629 / Confirmed Elevated liver enzymes / SNOMED CT 5982724588 / Confirmed Hiatal hernia with GERD (11cm 11/29/13) / SNOMED CT 8190787318 / Confirmed Osteoporosis / SNOMED CT 212589538 / Confirmed Rheumatoid arthritis / SNOMED CT 346014460 / Confirmed Stomach burning / SNOMED CT 337737998 / Confirmed, Active Problems (6) Dysphagia Elevated [...] or without patella resurfacing (total knee arthroplasty) (83513). Comments: 05/19/2022 7:53 EST - JOSELO Sapp BILATERAL Esophageal hiatus hernia repair (07184866). Catheter ablation of arrhythmogenic focus (1297974213). Kyphoplasty of fracture of thoracic spine using computed tomography (CT) guidance (9606949550). Social History Social & Psychosocial Habits Alcohol [...] Resp Rate 15 br/min (MAY 19 07:58) CZR577 mmHg (MAY 19 07:58) DBP81 mmHg (MAY 19 07:58) Measurements from flowsheet : Measurements 05/19/2022 7:58 EST Height 155 cm Admission Weight 50.0 kg Weight Method Stated [place] Body Weight 47.85 kg Pain assessment: Pain [...] Surgeon SN - CAt - Role Performed Chief Sales Officer 1 SN - CAt - Role Performed ASSISTANT MEN'S SOCCER COACH SN - CAt - Role Performed Bridge Teacher 05/19/2022 7:58 EST Designated Person #1 We May Share JAY HERNANDEZ [phone] Designated Person #1 Relationship Daughter Privacy Restrictions Requested None Height 155 cm Admission Weight 50.0 kg Weight Method Stated [place] Body Weight 47.85 kg Temperature Temporal Artery [...] N/A Skin Temperature Warm Skin Description [place] Skin Integrity Intact Skin Moisture General Dry [...] evident Teaching Method Explanation Preferred Written Language Bolivian Preferred Spoken Language Bolivian Information Given by Patient Patient's Current Physicians [...] Day Patient History . Assessment and Plan [place] [employer] of Anesthesiologists (ASA) physical status classification: Class II. Anesthetic Preoperative Plan Anesthetic technique: MAC. Postoperative pain management: Per surgeon. Informed consent: signed by patient. Digitally Signed by MADHAVI RUBY on 05/19/2022 09:51 AM [facility]08[facility] History of Past illness Narrative* Problem Noted Date Diagnosed Date Resolved Date Astigmatism of left eye 12/10/201501/09 Pseudophakia, right eye 12/07/201501/10 Regular astigmatism 11/26/2015 01/26/20 16 Combined form of senile cataract of left eye 6 01/31/2016 Dry eye syndrome 05/26/2015 10/16/2015 documented as of this encounter (statuses as of 08/21/2023) [facility]Reason for visit Narrative* Chief Complaint 1 Y FU PREV PFM HIP Reason for Visit Pre-op evaluation MVP (mitral valve prolapse) Premature atrial contraction Premature ventricular contraction History of cardiac radiofrequency ablation Supraventricular tachycardia [facility] Work Phone: Discharge summary Author Cyril Burden [facility] June 30, 2023 10:21am Note Date/Time June 30, 2023 9:51am [facility] [facility] Medical Records Department [address] [place] [address] Emergency Department Summary 06/30/23 MR#: [id number] Acct: [id number] Name: HUYEN VALERIO I Rep #:[id number] : 1940 82 From: Cyril Burden MD PCP: Milagros Hunter NP-C Status:VT E ER Location: ED HPI History of [...] - As soon as possible Milagros Hunter HARVEST FIELD TICKETER, HARVEST FIELD TICKETER-C [Primary Care Provider] - Activity Restrictions/Additional Instructions: [...] your Primary Care Provider. Call [facility] ([phone]) or report to the closest Emergency Room. Call 911 if necessary. 06/30/23 1021 <Electronically signed by Cyril Burden MD> Kristinaign Signature (if applicable): CC: HARVEST FIELD TICKETER-C Milagros Hunter ~ Signed [facility] Work Phone: Evaluation + Plan note Future Appointments Appointment Date:04/15/2024 11:30:00 AM Scheduled Provider:MILAGROS HUNTER APRN-TOBACCO SPRAYER Location:[facility] Appointment Type:PC OV Future Scheduled Tests Radiology* XR Knee 3 Views Right 02/17/24 * XR Ribs 2 Views Left 10/19/23 [facility] Evaluation note* Diagnosis Onset Date Resolution Status [...] acute Abdominal hernia acute Incisional hernia acute [facility] Work Phone: Evaluation note* Diagnosis Onset Date Resolution Status MVP (mitral valve prolapse) acute Ovarian cyst, right acute Premature atrial contraction acute Premature ventricular contraction acute History of cardiac radiofrequency ablation resolved Supraventricular tachycardia resolved Ovarian cyst, right acute Incisional hernia acute Incisional hernia acute S/P hernia repair acute [facility] Work Phone: Evaluation note* Diagnosis Onset Date Resolution Status Incisional hernia acute S/P hernia repair acute Incisional hernia acute S/P hernia repair acute MVP (mitral valve prolapse) chronic Premature atrial contraction chronic Premature ventricular contraction chronic History of cardiac radiofrequency ablation resolved Supraventricular tachycardia resolved [facility] Work Phone: Evaluation noteNo assessment information available [facility] Work Phone: Evaluation note* Diagnosis Onset Date Resolution Status Degeneration of uterine fibroid acute [facility] Work Phone: Evaluation note* Diagnosis Onset Date [...] acute Rheumatoid arthritis acute Chronic diarrhea chronic [facility] Work Phone: Evaluation note* Diagnosis Onset Date Resolution Status Diarrhea resolved Dysuria resolved Fall resolved Hyperbilirubinemia resolved Hypophosphatemia resolved Leukocytosis resolved Debility acute GERD (gastroesophageal reflux disease) acute History of right hip hemiarthroplasty acute Osteoarthritis acute Osteoporosis acute Rheumatoid arthritis acute Chronic diarrhea chronic Dysphagia resolved Hypophosphatemia resolved [facility] Work Phone: Evaluation note* Diagnosis Onset Date Resolution Status Diarrhea resolved Dysuria resolved Fall resolved Hyperbilirubinemia resolved Hypophosphatemia resolved Leukocytosis resolved Debility acute GERD (gastroesophageal reflux disease) acute History of right hip hemiarthroplasty acute Osteoarthritis acute Osteoporosis acute Rheumatoid arthritis acute Chronic diarrhea chronic Dysphagia resolved Hypophosphatemia resolved Back pain acute Fever acute [facility] Work Phone: Evaluation note* Diagnosis Onset Date Resolution Status Pre-op evaluation acute MVP (mitral valve prolapse) chronic Premature atrial contraction chronic Premature ventricular contraction chronic History of cardiac radiofrequency ablation resolved Supraventricular tachycardia resolved [facility] Work Phone: Evaluation note* Diagnosis Keratitis sicca, bilateral (HCC)- Primary Other forms of keratitis Rheumatoid arthritis involving multiple sites, unspecified whether rheumatoid factor present (HCC) Pseudophakia of both eyes Lens replaced by other means Vitreous floaters of both eyes Regular astigmatism, bilateral documented in this encounter [facility] course Narrative No data available for this section [facility] Hospital Discharge instructions Additional Instructions Normal appendix on CT. uterine fibroids noted. Labs were normal. Urine culture sent will be contacted if you need antibiotics Since you are not having any symptoms of urine infection. Tylenol as needed. Follow-up with Dr. Vickers.[facility] Work Phone: Hospital Discharge instructions Additional Instructions Contact Dr. Wilks regarding your next dose of medication to treat your rheumatoid arthritis since you have a fever. Take antibiotics starting tomorrow. If your cultures are positive you will be contacted and will have DrEsequiel Prescribe appropriate duration of medication. If your blood cultures are positive you will be asked to return.[facility] Work Phone: Hospital Discharge instructions Additional Instructions Ice to your hip. Your hip exam looks good. The hip prosthesis looks good. There is no fracture seen or dislocation. Usual pain medications at home. Call and follow-up with Dr. Preston for further evaluation.[facility] Work Phone: Hospital Discharge instructions No data available for this section [facility] Progress note No data available for this section [facility] Reason for referral (narrative)No reason for referral information [facility] Work Phone: Chief Complaint and Reason for [...] pain Chief Complaint abd pain abd pain [facility] ED f/u for fibroids OSTEO Reason for Visit Degeneration of uter ine fibroid Chief Complaint abd pain abd pain [facility] ED f/u for fibroids OSTEO SCREENING Reason for Visit Degeneration of uter ine fibroid Chief Complaint [facility] ED f/u for fibro ids [...] Yes June 25, 022 3:53pm Power of Tax Audit Manager Yes June 25, 2021 3:53pm Advance Directive Response Recorded Date/ Time Name of Medical Power of Tax Audit Manager DAUGHTER June 25, 2021 3:53pm Living Will No September 26, 2021 2 :11pm Power of Tax Audit Manager No September 26, 2021 2:11pm Advance Directive Response Recorded Date/ Time Name of Medical Power of Tax Audit Manager DAUGHTER June 25, 2021 3:53pm Living Will No October 18, 2021 5:32pm Power of Tax Audit Manager No October 18 5:32pm Advance Directive Response Recorded Date/ Time Living Will No October 18, 2021 5:32pm Power of Tax Audit Manager No October 18 5:32pm Advance Directive Response Recorded Date/ Time Living Will No May 04 022 12:59pm Power of Tax Audit Manager No May 04, 2022 12:59pm Advance Directive Response Recorded Date/ Time Living Will No May 11 3 11:06am Power of Tax Audit Manager No May 11, 2 023 11:06am Advance Directive Response Recorded Date/ Time Living Will No May 11 3 12:06pm Power of Tax Audit Manager No May 11, 2 023 12:06pm Advance Directive Response Recorded Date/ Time Living Will No October 08, 2022 3 :50pm Power of Tax Audit Manager No October 08, 2022 3:50pm Advance Directive Response Recorded Date/ Time Living Will No November 27, 2022 2:43pm Power of Tax Audit Manager No November 27 2:43pm Advance Directive Response Recorded Date/ Time Living Will No November 27, 2022 10:03pm Power of Tax Audit Manager No November 27 3 10:03pm Advance Directive Response Recorded Date/ Time Living Will No June 30 024 9:41am Power of Tax Audit Manager No June 30, 2023 9:41am Advance Directive Response Recorded Date/ Time Living Will No June 30 10:41am Power of Tax Audit Manager No June 30, 2023 10:41am Advance Directive Response Recorded Date/ Time Living Will Yes March 07 8:47am Power of Tax Audit Manager Yes March 07, 2024 8:47am Living Will No October 13, 2023 3 :23pm Power of Tax Audit Manager No October 13, 2023 3:23pm Summary Purpose [...] content) Care Team Personnel Name: MILAGROS HUNTER APRN-TOBACCO SPRAYER Position: P4 Advanced Practice Nurse Member Role: Primary Care Physician Address: Address: [address] Care Team Related Persons Name: MARY DOUGLAS INFORMATION SOURCE (unrecogn ized section and content) DATE CREATED AUTHOR 05/28/2022 [facility]) DATE CREATED AUTHOR AUTHOR'S ORGANIZ ATION 04/02/2023 [facility] DATE CREATED AUTHOR AUTHOR'S ORGANIZ ATION 08/29/2023 [facility] DATE CREATED AUTHOR AUTHOR'S ORGANIZ ATION 10/14/2023 [facility] DATE CREATED AUTHOR AUTHOR'S ORGANIZ ATION 10/21/2023 [facility] DATE CREATED AUTHOR AUTHOR'S ORGANIZ ATION 02/19/2024 [facility] DATE CREATED AUTHOR AUTHOR'S ORGANIZ ATION 05/29/[address] [facility] DATE CREATED AUTHOR AUTHOR'S ORGANIZ ATION 08/21/2024 [facility] DATE CREATED AUTHOR AUTHOR'S ORGANIZ ATION 10/09/2024 [facility] Care Teams (unrecognized sec tion and content) Team Status: Active Member Role Status Dates Kiya NELSON, PA Family Provider Active Milagros Hunter HARVEST FIELD TICKETER, HARVEST FIELD TICKETER-C Primary Care Provider Activ e Team Status: Inactive Member Role Status Dates Milagros Hunter HARVEST FIELD TICKETER, HARVEST FIELD TICKETER-C Primary Care Provider, Refe rring Provider Active Jacquie Cruz HARVEST FIELD TICKETER, HARVEST FIELD TICKETER-C Attending Provider Active Team Status: Inactive Member Role Status Dates Milagros Hunter HARVEST FIELD TICKETER, HARVEST FIELD TICKETER-C Primary Care Provider, Atte nding Provider Active Team Status: Inactive Member Role Status Dates Milagros Hunter HARVEST FIELD TICKETER, HARVEST FIELD TICKETER-C Primary Care Provider Activ e Dr. Jackson Manning , DO Attending Provider, Emergency Provide r Active Team Status: Inactive Member Role Status Dates Milagros Hunter HARVEST FIELD TICKETER, HARVEST FIELD TICKETER-C Primary Care Provider Activ e Dr. Ross Adler , Attending Provider, Emergency Pro vider Active Team Status: Inactive Member Role Status Dates Milagros Hunter HARVEST FIELD TICKETER, HARVEST FIELD TICKETER-C Primary Care Provider Activ e Dr. Mylene Hoskins MD Attending Provider, Referring Pr ovider Active Team Status: Active Member Role Status Dates Milagros Hunter HARVEST FIELD TICKETER, HARVEST FIELD TICKETER-C Primary Care Provider Activ e Dr. Nilda Cole MD Emergency Provider Active Dr. Ever Hummel MD Admit Provider, A ttending Provider, Other Provider Active Team Status: Active Member Role Status Dates Milagros Hunter NP, HARVEST FIELD TICKETER-C Primary Care Provider Activ e Dr. Nilda Cole MD Emergency Provider Active Dr. Ever Hummel MD Admit Provider, Other Provider Active Dr. Alfred Knutson MD Other Provider Active Dr. Josephine Watson DO Attending Provider, Other Provide r Active Team Status: Active Member Role Status Dates Milagros Hunter HARVEST FIELD TICKETER, HARVEST FIELD TICKETER-C Primary Care Provider Activ e Dr. Nilda Cole MD Emergency Provider Active Dr. Ever Hummel MD Admit Provider, Other Provider Active Dr. Josephine Watson DO Attending Provider, Other Provide r Active Dr. Alfred Knutson MD Other Provider Active Team Status: Active Member Role Status Dates Milagros Hunter HARVEST FIELD TICKETER, HARVEST FIELD TICKETER-C Primary Care Provider Activ e Dr. Adalberto Willingham MD Admit Provider, Other Provider A ctive Dr. Michelle Manley , Other Provider Active Dr. Jimenez Matthew , DO Attending Provider Active Team Status: Active Member Role Status Dates Milagros Hunter HARVEST FIELD TICKETER, HARVEST FIELD TICKETER-C Primary Care Provider, Refe rring Provider Active Dr. Jimenez Matthew , Attending Provider, Other Prov ider Active Team Status: Inactive Member Role Status Dates Milagros Hunter NP, HARVEST FIELD TICKETER-C Primary Care Provider Activ e Dr. Nilda Cole MD Emergency Provider Active Dr. Ever Hummel MD Admit Provider, Other Provider Active Dr. Josephine Watson , Attending Provider Active Dr. Alfred Knutson MD Other Provider Active Team Status: Active Member Role Status Dates Milagros Hunter NP, HARVEST FIELD TICKETER-C Primary Care Provider Activ e Dr. Adalberto Willingham MD Admit Provider, Attending Provid er Active Dr. Michelle Manley , DO Other Provider Active Team Status: Inactive Member Role Status Dates Milagros Hunter HARVEST FIELD TICKETER, HARVEST FIELD TICKETER-C Primary Care Provider, Refe rring Provider Active Dr. Jimenez Matthew , Attending Provider Active Team Status: Active Member Role Status Dates Milagros Hunter NP, HARVEST FIELD TICKETER-C Primary Care Provider Activ e Dr. Adalberto Willingham MD Admit Provider, Re ferring Provider, Other Provider Active Dr. Michelle Manley , Other Provider Active Dr. Jimenez Matthew , Attending Provider Active Team Status: Inactive Member Role Status Dates Milagros Hunter NP, HARVEST FIELD TICKETER-C Primary Care Provider Activ e Dr. Adalberto Willingham MD Admit Provider, Attending Provid er Active Dr. Michelle Manley , Other Provider Active Team Status: Inactive Member Role Status Dates Milagros Hunter NP, HARVEST FIELD TICKETER-C Primary Care Provider Activ e Dr. Tommy Vazquez MD Emergency Provider Active Team Status: Active Member Role Status Dates Milagros Hunter NP, HARVEST FIELD TICKETER-C Primary Care Provider Activ e Dr. Eb Kendrick MD Emergency Provider Active Dr. Tate Moreno MD Admit Provider, Attending Provider, Referring Provider Active Team Status: Inactive Member Role Status Dates Milagros Hunter HARVEST FIELD TICKETER, HARVEST FIELD TICKETER-C Primary Care Provider, Refe rring Provider Active Dr. Matias Best MD Active Po Jenkins NP, HARVEST FIELD TICKETER-C Attending Provider Active Team Status: Inactive Member Role Status Dates Milagros Hunter NP, HARVEST FIELD TICKETER-C Primary Care Provider Activ e Dr. Cyril Burden MD Emergency Provider Active Turn Down Worker Relationship Specialty Start Date End Date Milagros Hunter CNP [address] [place] [id number] PCP - General Family Medicine 08/20/23 Kiya Salazar Family Medicine 05/21/15 Katarina Wilks [address] [place] [address] Rheumatology 08/20/23 Team Status: Inactive Member Role Status Dates Milagros Hunter NP, HARVEST FIELD TICKETER-C Primary Care Provider Activ e Dr. Cyril Burden MD Attending Provider, Emergency Pro vider Active Turn Down Worker Relationship Specialty Start Date End Date Milagros Hunter CNP [address] [place] [id number] PCP - General [facility] Medicine 08/20/23 Kiya Salazar [facility] 05/21/15 Katarina Wilks [address] [place] [address] Rheumatology 08/20/23 Team Status: Inactive Member Role Status Dates Milagros Hunter NP, HARVEST FIELD TICKETER-C Primary Care Provider Activ e Start: March 29, 2024 End: March 29, 2024 Milagros Hunter NP, HARVEST FIELD TICKETER-C Referring Provider Active Start: March 29, 2024 End: March 29, 2024 LESLIE Aguilar Attending Provider Active Start: March 29, 2024 End: March 29, 2024 Team Status: Inactive Member Role Status Dates Milagros Hunter NP, HARVEST FIELD TICKETER-C Primary Care Provider Activ e Start: April 19, 2024 End: April 19, 2024 LESLIE Aguilar Attending Provider Active Start: April 19, 2024 End: April 19, 2024 LESLIE Aguilar Referring Provider Active Start: April 19, 2024 End: April 19, 2024 Team Status: Inactive Member Role Status Dates Milagros Hunter HARVEST FIELD TICKETER, HARVEST FIELD TICKETER-C Primary Care Provider Activ e Start: June 28, 2024 End: June 28, 2024 Milagros Hunter NP, HARVEST FIELD TICKETER-C Referring Provider Active Start: June 28, 2024 End: June 28, 2024 LESLIE Aguilar Attending Provider Active Start: June 28, 2024 End: June 28, 2024 Team Status: Inactive Member Role Status Dates Milagros Hunter NP, HARVEST FIELD TICKETER-C Primary Care Provider Activ e Start: July 05, 2024 End: July 05, 2024 Dr. Mylene Hoskins MD Attending Provider Active Start: July 05, 2024 End: July 05, 2024 Dr. Mylene Hoskins MD Referring Provider Active Start: July 05, 2024 End: July 05, 2024 Team Status: Active Member Role Status Dates Milagros Hunter HARVEST FIELD TICKETER, HARVEST FIELD TICKETER-C Primary Care Provider Activ e Team Status: Inactive Member Role Status Dates Milagros Hunter HARVEST FIELD TICKETER, HARVEST FIELD TICKETER-C Primary Care Provider Activ e Start: September 15, 2024 End: September 15, 2024 Dr. Mylene Hoskins MD Attending Provider Active Start: September 15, 2024 End: September 15, 2024 Dr. Mylene Hoskins MD Referring Provider Active Start: September 15, 2024 End: September 15, 2024 Team Status: Inactive Member Role Status Dates Milagros Hunter NP, HARVEST FIELD TICKETER-C Primary Care Provider Activ e Start: October 04, 2024 End: October 04, 2024 Milagros Hunter NP, HARVEST FIELD TICKETER-C Attending Provider Active Start: October 04, 2024 End: October 04, 2024 Milagros Hunter HARVEST FIELD TICKETER, HARVEST FIELD TICKETER-C Referring Provider Active Start: October 04, 2024 End: October 04, 2024 Source Comments (unrecognize d section and content) In the event this informatio n is protected by the Federal Confidentiality of Alcohol and Drug Abuse Patient Records regulations: The Federal rules restrict any use of the information to criminally investigate or prosecute any alcohol or drug abuse patient.[facility] the event this information is protected by the Federal Confidentiality of Alcohol and Drug Abuse Patient Records regulations: The Federal rules restrict any use of the information to criminally investigate or prosecute any alcohol or drug abuse patient.[facility] Reason for Visit (unrecogniz ed section and [...] the event of a Fluress shortage, administer [place]-Fluor 1 drop into both eyes as directed [...] BE BASED ON THE PRIMARY CLINICAL RECORDS. [facility] [employer] [facility]. provides no warranty or guarantee of the accuracy or completeness of information in this document.
[2024-10-15] MEDS: Acetaminophen 500 MG Tablet 1000 MG PO ×2 (12:35→21:26)
--- NOTE | 2024-10-15 13:24 | HP.PCM.HOS_ITS ---
HPI - General General Date of Admission: 10/15/24 HPI Narrative ESTEBAN VALERIO, is a 84 F who presents to the hospital after mechanical fall with right sided joint pain mostly in her right lower extremity. Imaging studies do not demonstrate a fracture she has had a previous hip and knee replacement on that side. She was not unable to place weight on her right lower extremity and could not ambulate in the ER which is why she was admitted. Vital signs are stable, and lab work is all unremarkable. She does have a baseline history of arthritis in her right shoulder which does limit mobility at baseline. [facility] Medical History History of fall Zenkers diverticulum Back pain Kidney stones Irregular heart beat Closed head injury Fracture of hip, right, closed Wears glasses Wears contact lenses Post-menopausal History of steroid therapy Arthritis Rheumatoid arthritis Easy bruising Injury of back Back pain History of hiatal hernia Gastric reflux Sleep apnea History of pain when walking Normal stress echocardiogram Cardiology follow-up encounter History of irregular heartbeat MVP (mitral valve prolapse) Premature ventricular contraction Premature atrial contraction Supraventricular tachycardia Home Medications ?Medication ?Instructions ?Recorded ?Last Taken ?Type methotrexate sodium (PF) 25 mg/mL 75 mg IM TH Check wi th primary 11/29/13 03/03/24 History injection solution doctor prednisone 5 mg tablet 5 mg PO DAILY Check with [facility] 11/29/13 03/07/24 History doctor alendronate 70 mg tablet (Fosamax) 70 mg PO QWEEK [facility] with primary 11/10/18 03/02/24 History doctor folic acid 400 mcg tablet 0.8 mg PO DAILY@0800 Supplem ent 11/10/18 03/07/24 History multivitamin 3 tab PO DAILY Supplement 03/07/24 History tofacitinib 5 mg tablet (Xeljanz) 5 mg PO BID Check wi th primary 06/25/21 03/08/24 History doctor ascorbic acid (vitamin C) 500 mg 500 mg PO DAILY Suppl ement 05/27/22 03/07/24 History capsule lansoprazole 30 mg capsule,delayed 30 mg PO DAILY Chec k with primary 10/02/22 03/08/24 History release (Prevacid) doctor cholecalciferol (vitamin D3) 50 125 mcg PO DAILY Suppl ement 03/17/23 03/07/24 History mcg (2,000 unit) capsule acetaminophen 500 mg tablet 1,000 mg PO Q8 PRN Pain Unknown History buprenorphine 5 mcg/hour weekly 1 patch transdermal QW [facility] 03/15/24 Unknown History transdermal patch (Butrans) tramadol 50 mg tablet 50 mg PO BID pain 03/15/24 U nknown History pantoprazole 40 mg tablet,delayed 40 mg PO BID #60 tab s 03/29/24 Unknown Rx release vonoprazan 10 mg tablet (Voquezna) 10 mg PO QDAY #90 t abs 07/05/24 Unknown Rx Allergy/AdvReac Type Severity Reaction Status Date / Time amoxicillin trihydrate (From Allergy Intermediate Rash Verified 03/29/24 13:59 Trimox) Penicillins Allergy Swelling Verified 03/29/24 13:59 Family History Father CAD (coronary artery disease) CVA (cerebral vascular accident) Hypertension Heart disease Brother CAD (coronary artery disease) Mother Osteoporosis Surgical History History of Zenker's diverticulum removal History of esophagogastroduodenoscopy (EGD) History of right hip hemiarthroplasty History of removal of ovarian cyst History of incisional hernia repair Hx of kyphoplasty History of cardiac radiofrequency ablation (~2000) Hx of cataract surgery Hx of hernia repair H/O total knee replacement Social History household members: none Smoking Status: Never smoker alcohol intake: never substance use type: does not use what type of physical activity do you participate in: none ROS Constitutional Constitutional: Denies chills, fatigue, fever(s) or malaise Eyes Eyes: Denies blurry vision ENT HEENT: Denies headache(s) or nasal discharge Cardiovascular Cardiovascular: Denies chest pain, dyspnea on exertion or syncope Respiratory/Chest Respiratory/Chest: Denies cough, shortness of breath at rest or shortness of breath with exertion Gastrointestinal Gastrointestinal: Denies constipation, diarrhea, nausea or vomiting Genitourinary Genitourinary: Denies dysuria Musculoskeletal Musculoskeletal: Reports joint pain Neurologic Neurologic: Denies focal weakness, numbness or tremor(s) Psychiatric Psychiatric: Denies anxiety or depression Vital Signs Vital Signs Vital Signs: 10/15/24 07:56 10/15/24 09:56 10/15/24 10:34 Temperature 97.9 F Temperature Source Temporal Pulse Rate 87 74 Respiratory Rate 16 16 Respiratory Effort Normal Non-Labored Respiratory Depth Normal Respiratory Pattern Normal Blood Pressure 132/85 H 154/72 H Blood Pressure Mean 100 99 Blood Pressure Source Blood Pressure Position Blood Pressure Location Pulse Ox 98 97 Oxygen Delivery Method Room Air Room Air Room Air 10/15/24 11:00 10/15/24 11:04 10/15/24 11:44 Temperature 98.9 F 97.5 F L Temperature Source Oral Pulse Rate 80 80 62 Respiratory Rate 18 16 Respiratory Effort Respiratory Depth Respiratory Pattern Blood Pressure 147/70 H 147/70 H 145/63 H Blood Pressure Mean 95 95 90 Blood Pressure Source Monitor Blood Pressure Position Semi-Fowlers Blood Pressure Location Left Arm Pulse Ox 99 99 94 Oxygen Delivery Method Room Air Weight Weight: 114 lb 8 oz Body Mass Index (BMI) 22.4 Physical Exam Narrative General: Alert, Oriented x3, Cooperative, No apparent distress HEENT: Atraumatic, PERRLA, EOMI, Normocephalic Oral: Moist Mucosa Neck: Supple, No JVD Lungs: Diminished, Normal air movement, No rhonchi, No wheeze, No rales Cardiovascular: Regular rate, Regular Rhythm, Normal S1, Normal S2, No murmurs Abdomen: Soft, Non Tender, Non-Distended, No Hepato-splenomegaly Extremities: No edema, Capillary Refill Less than 3 Seconds Skin: No rashes, No breakdown Musculoskeletal: Ecchymosis in her right shoulder, and pain to palpation of her right hip and knee Neurological: No focal neurological deficits, Motor Exam 5/5 strength throughout, Sensory exam intact to light touch and pain, right lower extremity and right upper extremity limited due to pain Psych/Mental Status: Normal Affect, Appropriate Results Imaging Radiology Impression Femur X-Ray 10/15/24 08:45 IMPRESSION: See above Reading [facility] 10/15/24 08:45 IMPRESSION: See above Reading Location: [facility] Shoulder X-Ray 10/15/24 08:45 IMPRESSION: See above. Reading Location: [facility] Assessment & Plan Assessment/Plan (1) Inability to ambulate due to knee: (2) Inability to ambulate due to hip: (3) Injury due to fall: PLAN: Plan 1. Right shoulder and right lower extremity pain due to mechanical fall ? No fracture in either her hip, shoulder or knee. She denies hitting her head and she denies any prodromal symptoms prior to her fall, it seems to be purely mechanical ? PT/OT ? Pain management ? If she has continued inability to ambulate, case management has been consulted for possible placement 2. GERD ? Appears to be stable however it also appears that she is on multiple different medications for this, will await them to be verified ? She does have a history of Zenker's diverticulum and has been seen as an outpatient in the GI clinic for persistent nausea and epigastric pain, this is limited her p.o. intake and on her evaluation in March 2020 for she admits to having lost 30 pounds over the last year due to poor p.o. intake ? Previous EGD demonstrated chronic and acute inflammation in her stomach, Priyanka at that time did not help and encouraged her to continue gastroparesis diet and placed her on Protonix 40 mg twice daily. Unclear if she is still on this medication or not we will await verification 3. Rheumatoid arthritis/chronic pain ? It appears that she may be on methotrexate and folic acid ? Can reorder once verified ? Also appear that she might be on a buprenorphine transdermal patch, like to continue this as well once verified depending on when she is put on 4. Osteoporosis ? It appears that she might be taking alendronate ? Can resume once verified DVT: SCDs 56 minutes was spent on direct patient care, including documentation as well as chart review and collaboration with colleagues Charges/Coding Visit Charges Inpatient E&M: 72262 Init Hosp L2
[2024-10-15] MEDS: TOFACITINIB CITRATE 5 MG PO (21:21)
[2024-10-15] MEDS: Pantoprazole Sodium 40 MG Tablet PO (21:22)
[2024-10-15] MEDS: traMADol 50 MG Tablet PO (21:26)
[2024-10-16] MEDS: Acetaminophen 500 MG Tablet 1000 MG PO ×3 (05:51→21:17)
[2024-10-16 06:07] VITALS: BP 116/55; PULSE 66; RESP 16; TEMP 36.7; O2SAT 96
[2024-10-16 08:57] VITALS: BP 111/81; PULSE 73; RESP 18; TEMP 36.1; O2SAT 96
[2024-10-16] MEDS: Folic Acid 1 MG Tablet PO (09:02)
[2024-10-16] MEDS: predniSONE 5 MG Tablet PO (09:02)
[2024-10-16] MEDS: Pantoprazole Sodium 40 MG Tablet PO ×2 (09:03→21:17)
[2024-10-16] MEDS: TOFACITINIB CITRATE 5 MG PO ×2 (09:04→21:17)
[2024-10-16] MEDS: traMADol 50 MG Tablet PO ×2 (09:14→21:17)
[2024-10-16] MEDS: Buprenorphine 5 MCG PATCH.TDWK 1 PATCH TD (09:22)
--- NOTE | 2024-10-16 11:08 | PN.HOSP_ITS ---
Subjective Subjective Tried to ambulate yesterday evening but still had severe pain with weightbearing on the right lower extremity Objective Data Objective Data Vital Signs: Vital Signs Temp Pulse Resp BP Pulse Ox O2 Del Method 97.0 F L 73 18 111/81 H 96 Room Air 10/16/24 08:57 10/16/24 08:57 10/16/24 08:57 10/16/24 08:57 10/16/24 08:57 10/16/24 08:57 Oxygen Delivery Method Room Air Weight: 114 lb 8 oz Body Mass Index (BMI) 22.4 Intake & Output: Intake and Output for Last 24 Hours 10/15/24 10/16/24 10/17/24 03:59 03:59 03:59 Output Total 500 / 500 Balance -500 / -500 Physical Exam Narrative General: Alert, Oriented x3, Cooperative, No apparent distress HEENT: Atraumatic, PERRLA, EOMI, Normocephalic Oral: Moist Mucosa Neck: Supple, No JVD Lungs: Diminished, Normal air movement, No rhonchi, No wheeze, No rales Cardiovascular: Regular rate, Regular Rhythm, Normal S1, Normal S2, No murmurs Abdomen: Soft, Non Tender, Non-Distended, No Hepato-splenomegaly Extremities: No edema, Capillary Refill Less than 3 Seconds Skin: No rashes, No breakdown Musculoskeletal: Ecchymosis in her right shoulder, and pain to palpation of her right hip and knee Neurological: No focal neurological deficits, Motor Exam 5/5 strength throughou t, Sensory exam intact to light touch and pain, right lower extremity and right upper extremity limited due to pain Psych/Mental Status: Normal Affect, Appropriate Assessment & Plan Assessment/Plan (1) Inability to ambulate due to knee: (2) Inability to ambulate due to hip: (3) Injury due to fall: PLAN: Plan 1. Right shoulder and right lower extremity pain due to mechanical fall ? No fracture in either her hip, shoulder or knee. She denies hitting her head and she denies any prodromal symptoms prior to her fall, it seems to be purely mechanical ? PT/OT ? Pain management including her baseline tramadol and buprenorphine patch on top of as needed oxycodone ? If she has continued inability to ambulate, case management has been consulted for possible placement ? Given her narcotics we will place her on a stool softener 2. GERD ? Appears to be stable however it also appears that she is on multiple different medications for this, will await them to be verified ? She does have a history of Zenker's diverticulum and has been seen as an outpatient in the GI clinic for persistent nausea and epigastric pain, this is limited her p.o. intake and on her evaluation in March 2020 for she admits to having lost 30 pounds over the last year due to poor p.o. intake ? Previous EGD demonstrated chronic and acute inflammation in her stomach, Priyanka at that time did not help and encouraged her to continue gastroparesis diet and placed her on Protonix 40 mg twice daily. Will continue with her home PPI 3. Rheumatoid arthritis/chronic pain ? It appears that she may be on methotrexate and folic acid ? Continue with Xeljanz as well as her daily prednisone, folic acid, her methotrexate as I am on ? Will reapply her buprenorphine patch today 4. Osteoporosis ? It appears that she might be taking alendronate ? Can resume if she is here in the hospital when she takes it again DVT: SCDs Charges/Coding Visit Charges Inpatient E&M: 05679 Subs Hosp L2
[2024-10-16] MEDS: Senna/Docusate Sodium 1 Tablet PO ×2 (12:44→21:17)
[2024-10-16 14:51] VITALS: BP 135/75; PULSE 76; RESP 18; TEMP 37.2; O2SAT 96
[2024-10-16 21:11] VITALS: BP 112/68; PULSE 69; RESP 18; TEMP 36.6; O2SAT 97
[2024-10-17 05:20] VITALS: BP 155/84; PULSE 71; RESP 18; TEMP 36.6; O2SAT 96
[2024-10-17] MEDS: Acetaminophen 500 MG Tablet 1000 MG PO ×3 (05:23→20:39)
[2024-10-17 06:07] LABS: Absolute Lymphocyte Count 1.12 X10^3/uL (0.83-4.51); Absolute Neutrophil Count 4.5 X10^3/uL (2.0-7.7); Basophil# 0.06 X10^3/uL; Basophil% 0.9 % (0-1); Eosinophils% 2.9 % (0-5); Hematocrit 34.5 % (37-47); Hemoglobin 11.2 g/dL (12.0-15.0); Lymphocyte # 1.12 X10^3/ul (0.83-4.51); Lymphocyte % 16.4 % (19-41); Mean Corp Hgb Conc 32.5 g/dL (32-36); Mean Corpuscular Hgb 31.5 pg (27.0-32.0); Mean Corpuscular Volume 97.2 fL (81-99); Mean Platelet Vol. 11.6 fl (6.2-12.0); Monocyte# 0.97 X10^3/uL; Monocyte% 14.2 % (0-10); NRBC Flagged by Analyzer 0 % (0-5); Neutrophil # 4.46 X10^3/uL (2.7-7.7); Neutrophil % 65.2 % (47-70); Platelet Count 284 K/mm3 (150-450); RBC Distribution Width CV 15.4 % (11.6-14.6); RBC Distribution Width SD 54.1 fl (35.1-43.9); Red Blood Count 3.55 M/mm3 (4.2-5.4); White Blood Count 6.8 K/mm3 (4.4-11.0)
[2024-10-17 06:43] LABS: Anion Gap 9 (5-15); BUN 10 mg/dL (4-19); BUN/Creat Ratio 14.9 RATIO (10-20); Calcium,Total 9.2 mg/dL (7.6-11.0); Carbon Dioxide 26.8 mmol/L (21.0-32.0); Chloride 106 mmol/L (98-108); Creatinine, Serum 0.68 mg/dL (0.70-1.20); EST Glomerular Filtration Rate 85 (>60); Estimated Creatinine Clearance 36.26 ml/min (50-250); Glucose 88 mg/dL (70-99); Potassium 3.9 mmol/L (3.3-5.1); Sodium Level 142 mmol/L (133-145)
[2024-10-17 08:00] VITALS: BP 133/70; PULSE 65; RESP 16; TEMP 36.7; O2SAT 96
[2024-10-17] MEDS: Folic Acid 1 MG Tablet PO (08:43)
[2024-10-17] MEDS: traMADol 50 MG Tablet PO ×2 (08:44→20:39)
[2024-10-17] MEDS: Pantoprazole Sodium 40 MG Tablet PO ×2 (08:44→20:39)
[2024-10-17] MEDS: predniSONE 5 MG Tablet PO (08:44)
[2024-10-17] MEDS: TOFACITINIB CITRATE 5 MG PO ×2 (08:44→20:39)
--- NOTE | 2024-10-17 09:54 | CASEMGMT ---
Discharge Planning A list of?SNF providers including quality and resource use data and consistent with the patient's preferred geographic region, medical needs, and insurance network was created in [employer] Guide.? This list was provided to the SW. Avani Edwards Discharge Planning Asst.
--- NOTE | 2024-10-17 11:34 | CASEMGMT ---
Social Work- SW met with pt to discuss discharge planning. SW introduced self and role; pt agreeable to meeting. Pt reports that she lives with grandson, but has been having extreme pain in hip following a fall and is currently unable to bear weight on it. Pt reports this is impacting ambulation and making it unsafe for her to return home at this time. Pt declined a SNF list at this time, as she has been to TCU in the past and would prefer to have a referral to TCU for an inpatient stay again. SW provided referral to [facility]/TCU admissions. [facility] remains available to follow. KEANU Lacey
[2024-10-17 15:16] VITALS: BP 108/66; PULSE 81; RESP 16; TEMP 36.7; O2SAT 96
--- NOTE | 2024-10-17 15:23 | CASEMGMT ---
GRIMES Met with patient to complete GRIMES form. GRIMES form and its content were verbally explained and patient's questions were answered to the best of my ability.? Patient voiced understanding and signed GRIMES form.? Patient provided a copy of signed GRIMES form and original placed in patient's chart.? Patient had no further questions. Avani Edwards, Discharge Planning Asst
--- NOTE | 2024-10-17 16:07 | PCM.PROGNOTE ---
Subjective Subjective Patient seen and examined today with her nurse by her bedside. Her granddaughter was also by her bedside. She had no active complaints. She was admitted with a complaint of mechanical fall. On further inquiry patient admits to falling several times. Her granddaughter did say she had a fall in the remote past and patient was seen. Review of systems otherwise negative. She is awaiting PT OT evaluation today. She has remained hemodynamically stable. Objective Data Objective Data Vital Signs: Vital Signs Temp Pulse Resp BP Pulse Ox O2 Del Method 98.1 F 81 16 108/66 96 Room Air 10/17/24 15:16 10/17/24 15:16 10/17/24 15:16 10/17/24 15:16 10/17/24 15:16 10/17/24 15:16 Oxygen Delivery Method Room Air Weight: 114 lb 8 oz Body Mass Index (BMI) 22.4 Intake & Output: Intake and Output for Last 24 Hours 10/15/24 10/16/24 10/17/24 23:59 23:59 23:59 Intake Total 750 / 750 200 / 200 Output Total 500 / 500 Balance -500 / -500 750 / 750 200 / 200 Lab / Micro Data 10/17/24 05:47 10/17/24 05:47 Labs: Laboratory Results - last 24 hr 10/17/24 05:47: WBC 6.8, RBC 3.55 L, Hgb 11.2 L, Hct 34.5 L, MCV 97.2, MCH 31.5, MCHC 32.5, RDW Std Deviation 54.1 H, RDW Coeff of Eusebio 15.4 H, Plt Count 284, MPV 11.6, Immature Gran % (Auto) 0.400, Neut % (Auto) 65.2, Lymph % (Auto) 16.4 L, [place] % (Auto) 14.2 H, Eos % (Auto) 2.9, Baso % (Auto) 0.9, Absolute Neuts (auto) 4.5, Absolute Lymphs (auto) 1.12, Nucleated RBC % 0, Sodium 142, Potassium 3.9, Chloride 106, Carbon Dioxide 26.8, Anion Gap 9, BUN 10, Creatinine 0.68 L, Estim Creat Clear Calc 36.26 L, Est GFR (MDRD) Non-Af 85, BUN/Creatinine Ratio 14.9, Glucose 88, Calcium 9.2 Physical Exam Const alert, oriented x3 and no apparent distress General Appearance: cooperative HEENT normocephalic, head/scalp atraumatic, moist oral mucous membranes and oropharynx normal Eyes PERRL and EOMs intact bilaterally Neck supple Lymph Lymphatic: no lymphedema noted Resp normal respiratory effort, normal air movement and clear to auscultation bilaterally Cardio regular rate, regular rhythm, S1 normal heart sound, S2 normal heart sound and no murmurs GI normal to inspection, nondistended, normoactive bowel sounds, soft to palpation, non-tender and non-distended Extremity normal capillary refill, no clubbing, cyanosis or edema and no calf tenderness General Extremity: no tenderness to palpation of joints or extremities Skin General Skin Exam: no breakdown Neuro no focal motor deficits and no sensory deficits noted Motor Exam: general weakness Psych thought process normal and cooperative Appearance: appropriate Assessment & Plan Assessment/Plan (1) Debility: (2) Contusion of right hip and thigh: PLAN: Plan #Right shoulder and right lower extremity pain due to mechanical fall Patient fell falls at home. She has had several falls over the past few months. Imaging showed no evidence of fracture in her hip, shoulder or knee. On tramadol and buprenorphine patch as well as oxycodone as needed. PT OT on board. Fall precautions. Depending on PT OT evaluation she may need placement. Patient says her grandson currently lives with her to help her around the house. #GERD: On PPI. She also does have a history of Zenker's diverticulum. She previously had EGD which showed chronic and acute inflammation in the stomach. There was concern for gastroparesis. He was on PPI #Rheumatoid arthritis: On methotrexate and folic acid as well as Xeljanz and prednisone as well as folic acid. Buprenorphine patch as needed History of osteoporosis: on alendronate DVT prophylaxis: SCDs. Charges/Coding Visit Charges Inpatient E&M: 99690 Subs Hosp L2
[2024-10-17 20:44] VITALS: BP 135/60; PULSE 66; RESP 16; TEMP 36.7; O2SAT 96
[2024-10-18 02:27] VITALS: BP 126/50; PULSE 66; RESP 17; TEMP 36.6; O2SAT 94
[2024-10-18] MEDS: Acetaminophen 500 MG Tablet 1000 MG PO ×2 (05:25→13:25)
[2024-10-18 08:05] VITALS: BP 145/81; PULSE 69; RESP 16; TEMP 36.6; O2SAT 98
[2024-10-18] MEDS: Folic Acid 1 MG Tablet PO (08:14)
[2024-10-18] MEDS: predniSONE 5 MG Tablet PO (08:14)
--- NOTE | 2024-10-18 09:33 | PN_ITS ---
Subjective Subjective Patient seen and examined with her nurse by her bedside. She still complained of some hip pain. Review of system is otherwise negative. She has remained hemodynamically stable. Objective Data Objective Data Vital Signs: Vital Signs Temp Pulse Resp BP Pulse Ox O2 Del Method 97.8 F 69 16 145/81 H 98 Room Air 10/18/24 08:05 10/18/24 08:05 10/18/24 08:05 10/18/24 08:05 10/18/24 08:05 10/18/24 08:05 Oxygen Delivery Method Room Air Weight: 114 lb 8 oz Body Mass Index (BMI) 22.4 Intake & Output: Intake and Output for Last 24 Hours 10/16/24 10/17/24 10/18/24 23:59 23:59 23:59 Intake Total 750 / 750 520 / 520 120 / 120 Balance 750 / 750 520 / 520 120 / 120 Lab / Micro Data 10/17/24 05:47 10/17/24 05:47 Physical Exam Const alert, oriented x3 and no apparent distress General Appearance: cooperative HEENT normocephalic, head/scalp atraumatic, moist oral mucous membranes and oropharynx normal Eyes PERRL and EOMs intact bilaterally Neck supple Lymph Lymphatic: no lymphedema noted Resp normal respiratory effort, normal air movement and clear to auscultation bilaterally Cardio regular rate, regular rhythm, S1 normal heart sound, S2 normal heart sound and no murmurs GI normal to inspection, nondistended, normoactive bowel sounds, soft to palpation, non-tender and non-distended Extremity normal capillary refill, no clubbing, cyanosis or edema and no calf tenderness General Extremity: no tenderness to palpation of joints or extremities Skin General Skin Exam: no breakdown Neuro no focal motor deficits and no sensory deficits noted Motor Exam: general weakness Psych thought process normal and cooperative Appearance: appropriate Assessment & Plan Assessment/Plan (1) Debility: (2) Contusion of right hip and thigh: PLAN: Plan #Right shoulder and right lower extremity pain due to mechanical fall * Patient fell falls at home. She has had several falls over the past few months. Imaging showed no evidence of fracture in her hip, shoulder or knee. * On tramadol and buprenorphine patch as well as oxycodone as needed. * PT OT on board. Fall precautions. * now agreeable to placement and wants to go to TCU. case management on board to help facilitate placement. #GERD: * On PPI. She also does have a history of Zenker's diverticulum. * She previously had EGD which showed chronic and acute inflammation in the stomach. * There was concern for gastroparesis. He was on PPI #Rheumatoid arthritis: * On methotrexate and folic acid as well as Xeljanz and prednisone as well as folic acid. * Buprenorphine patch as needed * History of osteoporosis: on alendronate DVT prophylaxis: SCDs. Disposition: awaiting placement. Charges/Coding Visit Charges Inpatient E&M: 06567 Subs Hosp L2
[2024-10-18] MEDS: Pantoprazole Sodium 40 MG Tablet PO (10:15)
[2024-10-18] MEDS: TOFACITINIB CITRATE 5 MG PO (10:16)
[2024-10-18] MEDS: traMADol 50 MG Tablet PO (10:17)
--- NOTE | 2024-10-18 11:18 | CASEMGMT ---
Social Work- SW met with pt to provide update that precert has been obtained and hospitalist indicated that pt will discharge today. Pt agreeable to plan. SW remains available to follow. Plan: TCU; skilled level of care KEANU Lacey
--- NOTE | 2024-10-18 13:15 | TREXTCAR_ITS ---
Diet Diet Order/Speech Therapy: INPATIENT Hospital Diet / Speech Therapy Order(s) 10/15/24 11:33 Diet: Regular - General Food consistency:: Regular Liquid Consistency:: Regular/Thin Routine Orders/Code Status Enema Type: Fleetz Enema Frequency: Daily PRN Suppository Type: Dulcolax 10mg Suppository Frequency: Daily PRN DC O2, CPAP, BIPAP needs Home O2 Discharge instructions: No Wound(s) rt dejesus: Wound Type: Abrasion Therapies Weight Bearing: Weight bearing as tolerated Physical Therapy: Eval and Treat Occupational Therapy: Eval and Treat Problem/Diagnosis (1) Debility: Status: Acute Code(s): R53.81 - Other malaise (2) Contusion of right hip and thigh: Status: Acute Code(s): S70.01XA - Contusion of right hip, initial encounter; S70.11XA - Contusion of right thigh, initial encounter Plan #Right shoulder and right lower extremity pain due to mechanical fall * Patient fell falls at home. She has had several falls over the past few months. Imaging showed no evidence of fracture in her hip, shoulder or knee. * On tramadol and buprenorphine patch as well as oxycodone as needed. * PT OT on board. Fall precautions. * now agreeable to placement and wants to go to TCU. case management on board to help facilitate placement. #GERD: * On PPI. She also does have a history of Zenker's diverticulum. * She previously had EGD which showed chronic and acute inflammation in the stomach. * There was concern for gastroparesis. He was on PPI #Rheumatoid arthritis: * On methotrexate and folic acid as well as Xeljanz and prednisone as well as folic acid. * Buprenorphine patch as needed * History of osteoporosis: on alendronate DVT prophylaxis: SCDs. Disposition: awaiting placement. Allergies/Procedures Done in Hospital Allergies amoxicillin trihydrate (From Trimox) Allergy (Intermediate, Verified 03/29/24 13:59) Rash Penicillins Allergy (Verified 03/29/24 13:59) Swelling Procedures: None Type of Care/Length of Stay Estimated LOS: Convalescent Care Less Than 30 days Type of Care Needed: Skilled Rehab Potential: Fair Prognosis: Fair Additional Orders/Day of Discharge Day of Discharge: 10/18/24 Discharge Plan Admission Admit Date/Time: 10/15/24 10:54 Primary Reason for Your Visit: mechanical fall Attending Provider: Mena Schrader Primary Care Provider: Milagros Aguirre NP Consulting Providers: Constantine Busch Instructions Patient Instructions: ED Contusion, Lower Extremity, ED Contusion, Upper Extremity Additional Instructions / Restrictions: 1. Take your pain medicine as prescribed by Dr. Cee 2. You may hurt in more places you presently do. 3. You may hurt more than you presently do. 4. Apply ice 6-8 times a day to your right shoulder and right thigh region. Discharge Orders/Prescriptions Prescriptions: Continued alendronate [Fosamax] 70 mg tablet 70 mg PO QWEEK ascorbic acid (vitamin C) 500 mg capsule 500 mg PO DAILY cholecalciferol (vitamin D3) 50 mcg (2,000 unit) capsule 125 mcg PO DAILY buprenorphine [Butrans] 5 mcg/hour patch weekly 1 patch transdermal QWEEK Patient Comments: pt takes on thursday tramadol 50 mg tablet 50 mg PO BID pantoprazole 40 mg tablet,delayed release (DR/EC) 40 mg PO BID Qty: 60 2RF prednisone 5 MG tablet 5 mg PO DAILY methotrexate sodium (PF) 25 MG/ML solution 75 mg IM TH folic acid 400 mcg tablet 0.8 mg PO DAILY@0800 multivitamin Tablet 3 tab PO DAILY Xeljanz 5 mg tablet 5 mg PO BID magnesium 200 mg tablet 400 mg PO BID Referrals / Follow Up: Milagros Aguirre NP, [facility] [Primary Care Provider] - Within 1 Week Disposition Disposition (needs filled in before D/C Order can be placed): Residential Facility
[2024-10-18 13:29] VITALS: BP 122/76; PULSE 86; RESP 16; TEMP 36.6; O2SAT 97
--- NOTE | 2024-10-18 13:59 | CASEMGMT ---
Social Work- Precert has been obtained.? Physician updated and pt is ready for discharge today.? SW met with pt and they are agreeable to discharge plan as stated above.? Bedside nurse and TCU admissions notified of discharge. KEANU Lacey
--- NOTE | 2024-10-18 16:40 | DS.PCM_ITS ---
Providers Date of Admission: 10/15/24 Date of Discharge: 10/18/24 Primary Care Physician: Milagros Aguirre, SHAY-C Reason For Visit: FALL Diagnosis Discharge Diagnosis (1) Debility: Status: Acute Code(s): R53.81 - Other malaise (2) Contusion of right hip and thigh: Status: Acute Code(s): S70.01XA - Contusion of right hip, initial encounter; S70.11XA - Contusion of right thigh, initial encounter Plan #Right shoulder and right lower extremity pain due to mechanical fall * Patient fell falls at home. She has had several falls over the past few months. Imaging showed no evidence of fracture in her hip, shoulder or knee. * On tramadol and buprenorphine patch as well as oxycodone as needed. * PT OT on board. Fall precautions. * now agreeable to placement and wants to go to TCU. case management on board to help facilitate placement. #GERD: * On PPI. She also does have a history of Zenker's diverticulum. * She previously had EGD which showed chronic and acute inflammation in the stomach. * There was concern for gastroparesis. He was on PPI #Rheumatoid arthritis: * On methotrexate and folic acid as well as Xeljanz and prednisone as well as folic acid. * Buprenorphine patch as needed * History of osteoporosis: on alendronate DVT prophylaxis: SCDs. Disposition: awaiting placement. Medications at Discharge Home Medications methotrexate sodium (PF) 25 mg/mL injection solution 75 mg IM TH Check with primary doctor 11/29/13 prednisone 5 mg tablet 5 mg PO DAILY Check with primary doctor 11/29/13 alendronate 70 mg tablet (Fosamax) 70 mg PO QWEEK Check with primary doctor 11/10/18 folic acid 400 mcg tablet 0.8 mg PO DAILY@0800 Supplement 11/10/18 multivitamin 3 tab PO DAILY Supplement 06/25/21 tofacitinib 5 mg tablet (Xeljanz) 5 mg PO BID Check with primary doctor 06/25/21 ascorbic acid (vitamin C) 500 mg capsule 500 mg PO DAILY Supplement 05/27/22 cholecalciferol (vitamin D3) 50 mcg (2,000 unit) capsule 125 mcg PO DAILY Supplement 03/17/23 buprenorphine 5 mcg/hour weekly transdermal patch (Butrans) 1 patch transdermal QWEEK pain 03/15/24 tramadol 50 mg tablet 50 mg PO BID pain 03/15/24 pantoprazole 40 mg tablet,delayed release 40 mg PO BID acid reflux #60 tabs 03/29/24 magnesium 200 mg tablet 400 mg PO BID supplement 10/15/24 Hospital Course Operations None Procedures None Summary of Care Provided Minutes Spent on Discharge: 55 Hospital Course: Patient is an 84-year-old female with past medical history as outlined was admitted to the ED on 10/15/2024 with a complaint of right-sided lower extremity pain after mechanical fall. Patient had had several such falls in the past. She lived at home and her grandson lived with her to help her. On admission she could not weight-bear on her right lower extremity. Imaging done however was negative for any evidence of fracture. She was admitted to be managed for debility due to mechanical fall. PT OT was consulted and she was placed on pain medication. She did work with PT OT and patient opted to go to TCU for rehab. She had an uneventful stay and was discharged to the rehab unit on 10/18/2024. Patient was seen and examined prior to discharge. She had no complaints. She was seen with her nurse by her bedside. Review of systems otherwise negative. Labs and vitals reviewed. Home medications reviewed and reconciled. Physical Exam Const alert, oriented x3 and no apparent distress General Appearance: cooperative and comfortable Orientation / Consciousness: awake HEENT normocephalic, head/scalp atraumatic, hearing grossly normal bilaterally, moist oral mucous membranes and oropharynx normal Mouth: oral and palatal mucosa normal Eyes PERRL and EOMs intact bilaterally Neck supple Lymph Lymphatic: no lymphedema noted Resp normal respiratory effort, normal air movement and clear to auscultation bilaterally Cardio regular rate, regular rhythm, S1 normal heart sound, S2 normal heart sound and no murmurs GI normal to inspection, nondistended, normoactive bowel sounds, soft to palpation, non-tender and non-distended Extremity full ROM, normal capillary refill, no clubbing, cyanosis or edema and no calf tenderness General Extremity: no tenderness to palpation of joints or extremities Skin no rashes or lesions noted Neuro oriented x3, moves all extremities, no focal motor deficits and no sensory deficits noted Sensorium / Orientation: awake and alert Motor Exam: general weakness Psych thought process normal and cooperative Appearance: appropriate Weight / BMI Weight Weight: 114 lb 8 oz Body Mass Index (BMI) 22.4 ABG / Lab / Microbiology Data 10/17/24 05:47 10/17/24 05:47 D/C Instructions Discharge Diet: No restrictions DC O2, CPAP, BIPAP Needs Home O2 Discharge instructions: No Meaningful Use Info Meaningful Use Meaningful Use Diagnoses (Choose all that apply): None applicable Ischemic Stroke Statin Dosing Therapy Reference: STATIN DOSE THERAPY REFERENCE: * Patients > 75 years receive moderate or high dose statin therapy. * Patients 75 years or YOUNGER should receive HIGH intensity statin dose unless contraindicated. You will be required to document reason for non-treatment if statin daily dose does not meet guidelines. HIGH DOSE STATIN THERAPY DAILY Atorvastatin > than or = to 40 mg Rosuvastatin > than or = to 20 mg Amlodipine + Atorvastatin > than or = to 2.5/40 mg Ezetimibe + Simvastatin 10/80 mg Simvastatin 80mg Discharge Plan Admission Admit Date/Time: 10/15/24 10:54 Primary Reason for Your Visit: mechanical fall Attending Provider: Mena Schrader Primary Care Provider: Milagros Aguirre NP Consulting Providers: Constantine Busch Instructions Patient Instructions: ED Contusion, Lower Extremity, ED Contusion, Upper Extremity Additional Instructions / Restrictions: 1. Take your pain medicine as prescribed by Dr. Cee 2. You may hurt in more places you presently do. 3. You may hurt more than you presently do. 4. Apply ice 6-8 times a day to your right shoulder and right thigh region. Discharge Orders/Prescriptions Prescriptions: Continued alendronate [Fosamax] 70 mg tablet 70 mg PO QWEEK ascorbic acid (vitamin C) 500 mg capsule 500 mg PO DAILY cholecalciferol (vitamin D3) 50 mcg (2,000 unit) capsule 125 mcg PO DAILY buprenorphine [Butrans] 5 mcg/hour patch weekly 1 patch transdermal QWEEK Patient Comments: pt takes on thursday tramadol 50 mg tablet 50 mg PO BID pantoprazole 40 mg tablet,delayed release (DR/EC) 40 mg PO BID Qty: 60 2RF prednisone 5 MG tablet 5 mg PO DAILY methotrexate sodium (PF) 25 MG/ML solution 75 mg IM TH folic acid 400 mcg tablet 0.8 mg PO DAILY@0800 multivitamin Tablet 3 tab PO DAILY Xeljanz 5 mg tablet 5 mg PO BID magnesium 200 mg tablet 400 mg PO BID Referrals / Follow Up: Milagros Aguirre BACTERIOLOGIST [facility], BACTERIOLOGIST [facility]-C [Primary Care Provider] - Within 1 Week Disposition Disposition (needs filled in before D/C Order can be placed): Detention Facility Charges/Coding Visit Charges Inpatient E&M: 09215 Disch Hosp >30min
== END 2024-10-18 15:53 | disposition skilled nursing facility (03) ==
LOC: ED 10:21 → MS3 11:06
PROVIDERS: Admitting Provider Family Medicine; Emergency Provider Emergency Medicine; PCP Registered Nurse; Visit Provider Student in an Organized Health Care Education/Training Program
DX: S70.01XA Contusion of right hip, initial encounter (principal); M06.9 Rheumatoid arthritis, unspecified; R53.81 Other malaise; Z96.651 Presence of right artificial knee joint; Z96.641 Presence of right artificial hip joint; M81.0 Age-related osteoporosis without current pathological fracture; K21.9 Gastro-esophageal reflux disease without esophagitis; R26.2 Difficulty in walking, not elsewhere classified; W06.XXXA Fall from bed, initial encounter; M19.90 Unspecified osteoarthritis, unspecified site; Z79.52 Long term (current) use of systemic steroids; S40.011A Contusion of right shoulder, initial encounter; Y93.89 Activity, other specified; Y92.9 Unspecified place or not applicable; S70.11XA Contusion of right thigh, initial encounter; Z79.899 Other long term (current) drug therapy; G89.29 Other chronic pain; R29.6 Repeated falls
CPT/HCPCS: 36415; 72170; 73030; 73552; 80048; 85025; 97116; 97161; 97165; 97530; 97535; 99221; 99284; A4216; G0378

== ENCOUNTER 2024-10-18 16:07 | Inpatient (IN) | payer MEDICARE, SELFPAY ==
[2024-10-18 16:13] VITALS: BP 146/82; PULSE 71; RESP 18; TEMP 36.3; O2SAT 100; BMI 22.1
--- NOTE | 2024-10-18 20:40 | HP.PCM_ITS ---
HPI - General General Date of Admission: 10/18/24 Date of Service: 10/18/24 Chief Complaint: Here for rehabilitation. HPI Narrative ESTEBAN VALERIO, is a 84 Female who presents with followin10/15/2024 [facility] ED fall. Fell getting out of bed, right shoulder pain, right hip pain, right thigh pain. No head injury, no LOC. X-ray pelvis negative, X-ray right hip showed right total hip replacement, no fracture. Unable to walk, unable to walk with walker. Unable to go home. 10/15/2024 Admit [facility]. PT/OT/CM for placement. 10/16/2024 Severe pain upon weight bearing on right lower extremity. Pain control, bowel regimen. Xeljanz, prednisone, folic acid, methotrexate for rheumatoid arthritis. Butrans patch for chronic pain. 10/17/2024 PT/OT SNF. Pain control. 10/18/2024 Right hip pain, patient stable. PT/OT for TCU. 10/18/2024 Admit to TCU with debility, here for rehabilitation, strengthening, prior to discharge home with grandson. [facility] Medical History History of fall Zenkers diverticulum Back pain Kidney stones Irregular heart beat Closed head injury Fracture of hip, right, closed Wears glasses Wears contact lenses Post-menopausal History of steroid therapy Arthritis Rheumatoid arthritis Easy bruising Injury of back Back pain History of hiatal hernia Gastric reflux Sleep apnea History of pain when walking Normal stress echocardiogram Cardiology follow-up encounter History of irregular heartbeat MVP (mitral valve prolapse) Premature ventricular contraction Premature atrial contraction Supraventricular tachycardia Home Medications ?Medication ?Instructions ?Recorded ?Last Taken ?Type methotrexate sodium (PF) 25 mg/mL 75 mg IM TH Check wi th primary 11/29/13 03/03/24 History injection solution doctor prednisone 5 mg tablet 5 mg PO DAILY Check with nikko urena 11/29/13 03/07/24 History doctor alendronate 70 mg tablet (Fosamax) 70 mg PO [facility]EEK [facility] 11/10/18 03/02/24 History doctor folic acid 400 mcg tablet 0.8 mg PO DAILY@0800 Supplem ent 11/10/18 03/07/24 History multivitamin 3 tab PO DAILY Supplement 03/07/24 History tofacitinib 5 mg tablet (Xeljanz) 5 mg PO BID Check wi th primary 06/25/21 03/08/24 History doctor ascorbic acid (vitamin C) 500 mg 500 mg PO DAILY Suppl ement 05/27/22 03/07/24 H istory capsule cholecalciferol (vitamin D3) 50 125 mcg PO DAILY Suppl ement 03/17/23 03/07/24 History mcg (2,000 unit) capsule buprenorphine 5 mcg/hour weekly 1 patch transdermal QW [place] pain 03/15/24 Unknown History transdermal patch (Butrans) tramadol 50 mg tablet 50 mg PO BID pain 03/15/24 U nknown History pantoprazole 40 mg tablet,delayed 40 mg PO BID acid re flux #60 tabs 03/29/24 Unknown Rx release magnesium 200 mg tablet 400 mg PO BID supplement 12/02 Unknown History Allergy/AdvReac Type Severity Reaction Status Date / Time amoxicillin trihydrate (From Allergy Intermediate Rash Verified 03/29/24 13:59 Trimox) Penicillins Allergy Swelling Verified 03/29/24 13:59 Family History Father CAD (coronary artery disease) CVA (cerebral vascular accident) Hypertension Heart disease Brother CAD (coronary artery disease) Mother Osteoporosis Surgical History History of Zenker's diverticulum removal History of esophagogastroduodenoscopy (EGD) History of right hip hemiarthroplasty History of removal of ovarian cyst History of incisional hernia repair Hx of kyphoplasty History of cardiac radiofrequency ablation (~2000) Hx of cataract surgery Hx of hernia repair H/O total knee replacement Social History (Updated 10/18/24 @ 20:[address] Adalberto Willingham MD) household members: family and other details: Grandson lives with her, but he works weekdays. Smoking Status: Never smoker alcohol intake: never substance use type: does not use what type of physical activity do you participate in: none ROS Constitutional Constitutional: Reports weakness; Denies chills, fever(s) or weight gain ENT HEENT: Denies headache(s), nasal congestion or nasal discharge Cardiovascular Cardiovascular: Denies chest pain or palpitations Respiratory/Chest Respiratory/Chest: Denies cough, excessive phlegm production or shortness of breath with exertion Gastrointestinal Gastrointestinal: Denies abdominal pain, nausea or vomiting Genitourinary Genitourinary: Denies dysuria Musculoskeletal Musculoskeletal: Denies joint pain or joint swelling Integumentary Integumentary: Denies rash or wounds Neurologic Neurologic: Denies focal weakness, numbness or tingling Psychiatric Psychiatric: Denies anxiety, auditory hallucinations, depression, homicidal ideation or suicidal ideation Vital Signs Vital Signs Vital Signs: 10/18/24 16:13 10/18/24 16:13 Temperature 97.4 F L Temperature Source Temporal Pulse Rate 71 Pulse Rhythm Regular Pulse Strength Normal (2+) Respiratory Rate 18 Respiratory Effort Normal Non-Labored Respiratory Depth Normal Respiratory Pattern Normal Blood Pressure 146/82 H Blood Pressure Mean 103 Blood Pressure Source Monitor Pulse Ox 100 Oxygen Delivery Method Room Air Room Air Weight Weight: 51.437 kg Body Mass Index (BMI) 22.1 Physical Exam Const alert General Appearance: cooperative HEENT normocephalic Eyes PERRL and EOMs intact bilaterally Neck supple, no JVD and no carotid bruits Resp normal respiratory effort, normal air movement and clear to auscultation bilaterally Cardio regular rate and regular rhythm GI normal to inspection, nondistended, normoactive bowel sounds, non-tender and non-distended Extremity normal capillary refill General Extremity: Negative for edema Skin no rashes or lesions noted General Skin Exam: no breakdown Psych affect normal Appearance: appropriate Assessment & Plan Assessment/Plan (1) Debility: (2) Fall: (3) Inability to ambulate due to hip: (4) Contusion of right hip and thigh: (5) Osteoporosis: (6) Vitamin C deficiency: (7) Osteoarthritis: (8) GERD (gastroesophageal reflux disease): (9) Rheumatoid arthritis: (10) Muscle spasm: (11) Vitamin D deficiency: PLAN: Plan 84 year old female with below past medical history hospitalized for fall, inability to walk 2/2 right shoulder contusion, right hip contusion, right thigh contusion, admitted to TCU with debility, here for rehabilitation, strengthening, prior to discharge home with grandson. * Debility - PT/OT. * Pain - Tramadol 50mg bid, Butrans 5mcg 1 patch td qweek. * Bowel - Miralax 17gm daily, senna/colace 2 tablets bid, Magnesium citrate 300mL daily prn. * Adult immunization - Administer pneumonia vaccine, covid vaccine, flu vaccine as appropriate. * DVT prophylaxis - Lovenox 40mg sc daily. * Osteoporosis - Fosamax 70mg qweek. * Vitamin C deficiency - Vitamin C 500mg daily. * Vitamin D deficiency - Vitamin D 125mg daily. * Rheumatoid arthritis - MTX 75mg im qweek, Xeljanz 5mg bid, Prednisone 5mg daily, Folic acid 1mg daily. * Hypomagnesemia - Magnesium chloride 128mg bid. * Nutrition - MVI 1 tablet daily. * GERD/Zenker's diverticulum - Pantoprazole 40mg bid.
[2024-10-18] MEDS: Pantoprazole Sodium 40 MG Tablet PO (21:25)
[2024-10-18] MEDS: traMADol 50 MG Tablet PO (21:25)
[2024-10-18] MEDS: TOFACITINIB CITRATE 5 MG PO (21:27)
[2024-10-18] MEDS: Magnesium Chloride 64 MG Delay Rel.Tablet 128 MG PO (21:29)
[2024-10-19] MEDS: Enoxaparin 40 MG/0.4 ML Syringe SC (05:13)
[2024-10-19] MEDS: Alendronate Sodium 70 MG Tablet PO (05:13)
[2024-10-19 06:00] LABS: Absolute Neutrophil Count 6.4 X10^3/uL (2.0-7.7); Basophil# 0.07 X10^3/uL; Basophil% 0.8 % (0-1); Eosinophil# 0.28 X10^3/uL; Eosinophils% 3.1 % (0-5); Hemoglobin 10.9 g/dL (12.0-15.0); Lymphocyte % 11.1 % (19-41); Mean Corp Hgb Conc 32.1 g/dL (32-36); Mean Corpuscular Hgb 31.5 pg (27.0-32.0); Mean Corpuscular Volume 98.3 fL (81-99); Mean Platelet Vol. 11.7 fl (6.2-12.0); Monocyte# 1.12 X10^3/uL; Monocyte% 12.5 % (0-10); NRBC Flagged by Analyzer 0 % (0-5); Neutrophil # 6.43 X10^3/uL (2.7-7.7); Neutrophil % 71.7 % (47-70); Platelet Count 299 K/mm3 (150-450); RBC Distribution Width CV 15.9 % (11.6-14.6); RBC Distribution Width SD 57.3 fl (35.1-43.9); Red Blood Count 3.46 M/mm3 (4.2-5.4)
[2024-10-19 06:32] LABS: Anion Gap 8 (5-15); BUN 13 mg/dL (4-19); BUN/Creat Ratio 18.6 RATIO (10-20); Calcium,Total 9.7 mg/dL (7.6-11.0); Carbon Dioxide 28.1 mmol/L (21.0-32.0); Chloride 106 mmol/L (98-108); Creatinine, Serum 0.71 mg/dL (0.70-1.20); EST Glomerular Filtration Rate 82 (>60); Estimated Creatinine Clearance 36.26 ml/min (50-250); Glucose 84 mg/dL (70-99); Potassium 4.8 mmol/L (3.3-5.1); Sodium Level 142 mmol/L (133-145)
[2024-10-19] MEDS: Folic Acid 1 MG Tablet PO (09:04)
[2024-10-19] MEDS: Multivitamins,Therapeutic Tablet 1 TABLET PO (09:05)
[2024-10-19] MEDS: Cholecalciferol (Vit D3) 125 MCG CAPSULE (5,000 UNITS) PO (09:05)
[2024-10-19] MEDS: Pantoprazole Sodium 40 MG Tablet PO ×2 (09:05→20:28)
[2024-10-19] MEDS: predniSONE 5 MG Tablet PO (09:05)
[2024-10-19] MEDS: Ascorbic Acid 500 MG Tablet PO (09:05)
[2024-10-19] MEDS: TOFACITINIB CITRATE 5 MG PO ×2 (09:06→20:29)
[2024-10-19] MEDS: Magnesium Chloride 64 MG Delay Rel.Tablet 128 MG PO ×2 (09:09→20:28)
[2024-10-19] MEDS: traMADol 50 MG Tablet PO ×2 (09:10→20:28)
[2024-10-19 09:15] VITALS: BP 109/65; PULSE 87; RESP 17; TEMP 36.8; O2SAT 96
--- NOTE | 2024-10-19 11:35 | NURSING ---
Forest Aide Note; Activity Asset: Roxana Matson is independent in her choice of daily activities. She enjoys reading on her down time. she will watch tv and welcomes visits from the [employer] and therapy dog when available. Family will visit and bring items she may need or want. Staff will encourage social activities, remind her of weekly activities and respect her right to say no.
--- NOTE | 2024-10-19 13:01 | PCM.PN.DRR ---
Documented by User: Jordyn Muro 10/19/24 14:04 TCU RX Drug Regimen Review Subjective/Objective Subjective/Objective Subjective: 84 YOF admitted to TCU s/p hospitalization at [facility] secondary to a fall. The patient was unable to walk and go home due to her fall. Admitted to TCU for strengthening and rehabilitation prior to discharge home where she resides with a grandson. Objective: Allergies amoxicillin trihydrate (From Trimox) Allergy (Intermediate, Verified 03/29/24 13:59) Rash Penicillins Allergy (Verified 03/29/24 13:59) Swelling Current Medications Generic Name Dose Route Start Last Admin Trade Name Freq PRN Reason Stop Dose Admin Alendronate Sodium 70 mg 10/19/24 06:30 10/19/24 05:13 Alendronate Sodium 70 Mg Tablet PO 70 mg QWEEK KALI Administration Ascorbic Acid 500 mg 10/19/24 10:00 10/19/24 09:05 Ascorbic Acid 500 Mg Tablet PO 500 mg DAILY KALI Administration Buprenorphine 1 patch 10/23/24 10:00 Buprenorphine 5 Mcg Patch.Tdwk TD QWEEK [facility] Cholecalciferol 125 mcg 10/19/24 10:00 10/19/24 09:05 Cholecalciferol (Vit D3) 125 Mcg Capsule (5,000 Units) PO 125 mcg DAILY KALI Administration Enoxaparin Sodium 40 mg 10/19/24 06:00 10/19/24 05:13 Enoxaparin 40 Mg/0.4 Ml Syringe SC 40 mg DAILY@0600 KALI Administration Folic Acid 1 mg 10/19/24 08:00 10/19/24 09:04 Folic Acid 1 Mg Tablet PO 1 mg DAILY@0800 [facility] Administration Magnesium Chloride 128 mg 10/18/24 22:00 10/19/24 09:09 Magnesium Chloride 64 Mg Delay Rel.Tablet PO 128 mg BID KALI Administration Magnesium Citrate 300 ml 10/18/24 20:49 Magnesium Citrate 300 Ml PO DAILY PRN Constipation Methotrexate Sodium 75 mg 10/20/24 06:00 Methotrexate Pf 50 Mg/2ml Vial IM TH [facility] Multivitamins 1 tablet 10/19/24 10:00 10/19/24 09:05 Multivitamins,Therapeutic Tablet PO 1 tablet DAILY KALI Administration Pantoprazole Sodium 40 mg 10/18/24 22:00 10/19/24 09:05 Pantoprazole Sodium 40 Mg Tablet PO 40 mg BID KALI Administration Polyethylene Glycol 17 gm 10/19/24 10:00 10/19/24 09:05 Polyethylene Glycol 3350 17 Gm Packet PO Not Given DAILY KALI Prednisone 5 mg 10/19/24 10:00 10/19/24 09:05 Prednisone 5 Mg Tablet PO 5 mg DAILY KALI Administration Senna/Docusate Sodium 2 tablet 10/18/24 22:00 10/19/24 09:05 Senna/Docusate Sodium 1 Tablet PO Not Given BID KALI Sodium Chloride 10 - 40 ml 10/18/24 16:26 0.9% Saline Lock 10 Ml Syringe IV UD PRN SALINE FLUSH Tramadol HCl 50 mg 10/18/24 22:00 10/19/24 09:10 Tramadol 50 Mg Tablet PO 50 mg BID KALI Administration Tuberculin PPD 0.1 ml 10/26/24 10:00 Tuberculin,Purif.Prot.Deriv. 50 Tu/Ml Vial ID 10/26/24 10:01 X1 ONE Problem List Vitamin D deficiency (Acute) Muscle spasm (Acute) Vitamin C deficiency (Acute) Inability to ambulate due to hip (Acute) Contusion of right hip and thigh (Acute) GERD (gastroesophageal reflux disease) (Acute) Osteoarthritis (Acute) Osteoporosis (Acute) Rheumatoid arthritis (Acute) Debility (Acute) Vital Signs Temp Pulse Resp BP Pulse Ox O2 Del Method 98.2 F 87 17 109/65 96 Room Air 10/19/24 09:15 10/19/24 09:15 10/19/24 09:15 10/19/24 09:15 10/19/24 09:15 10/19/24 09:15 Oxygen Delivery Method Room Air Weight: 51.437 kg Body Mass Index (BMI) 22.1 Sodium 142 mmol/L (133-145) 10/19/24 05:06 Potassium 4.8 mmol/L (3.3-5.1) 10/19/24 05:06 Chloride 106 mmol/L (98-108) 10/19/24 05:06 Carbon Dioxide 28.1 mmol/L (21.0-32.0) 10/19/24 05:06 Anion Gap 8 (5-15) 10/19/24 05:06 BUN 13 mg/dL (4-19) 10/19/24 05:06 Creatinine 0.71 mg/dL (0.70-1.20) 10/19/24 05:06 Est GFR (MDRD) Non-Af 82 (>60) 10/19/24 05:06 BUN/Creatinine Ratio 18.6 RATIO (10-20) 10/19/24 05:06 Glucose 84 mg/dL (70-99) 10/19/24 05:06 Assessment/Plan: 1. Pain: Buprenorphine 5mcg patch weekly, tramadol 50mg PO BID. Please continue to monitor for respiratory depression/oversedation, constipation, local site irritation at patch site, renal function (SCr 0.82 on 10/19). 2. Rheumatoid Arthritis: Methotrexate 75mg IM weekly, Xeljanz 5mg PO BID, prednisone 5mg PO daily, folic acid 1mg PO Daily. Please continue to monitor CBC (last completed 10/19), SCr (0.71 10/19), lipid panel annually (last completed in 2013), S/S GI toxicity, LFTs (last completed in 2022), glucose levels (last 84 on 10/19), insomnia, aggitation. 3. GERD/ Zenker's Diverticulum: Protonix 40mg PO BID. Please continue to monitor for headache, stomach upset, S/S GERD flare-up. Please also encourage non-pharmacologic therapies to help minimize GERD exacerbations. 4. Osteoporosis: Fosamax 70mg PO Weekly. Please continue to monitor calcium (last 9.7 on 10/19), phosphorus (last 1.9 in 2022), abdominal pain, headache, GERD symptoms. Please administer first thing in the morning without other medications. Have patient sit upright at least 30min after administration. 5. General Wellness: Ascorbic Acid 500mg PO daily, Cholecalciferol 125mcg PO Daily, Magnesium Chloride 128mg PO BID, MVI 1 tab PO Daily. 6. DVT Prophylaxis: Lovenox 40mg SC Daily. Please continue to monitor for S/S bleeding/bruising, H/H (hgb 10.9, hct 34 on 10/19), platelet (299 on 10/19), CrCl (36 mL/min 10/19). 7. Bowel: Miralax 17g PO Daily, Senna/docusate 2 tab PO BID, Magnesium Citrate 300mL PO daily PRN. Please continue to monitor for increased/decreased constipation and/or diarrhea. - The patient has not had a documented BM since admission. If no BM in the next 48-72hrs, please consider giving PRN medication to help facilitate a BM, thank you. Assessment/Plan for indications treated with psychotropic medications: -n/a Medical chart and medication regimen reviewed. The following medication irregularities or issues were identified: 1. The patient is on Xeljanz for rheumatoid arthritis. It is recommended to monitor lipid panels in patients on this medication due to risk of cardiovascular morbidity/mortality. Please consider obtaining a lipid panel as the last one on file was in 2013, thank you. 2. Please consider obtaining LFTs for this patient since they are on methotrexate for rheumatoid arthritis if clinically indicated. Last levels on file are from 2022, and were marginally elevated, thank you. Date Date of Note: 10/19/24 Documented by User: Dr. Adalberto Willingham MD 10/19/24 17:16 TCU RX Drug Regimen Review Provider Comments Provider responsibility Provider Comments to Recommendations by Pharmacy Agree
[2024-10-19] MEDS: Tuberculin,Purif.prot.deriv. 50 TU/ML Vial 0.1 ML ID (15:51)
[2024-10-19] MEDS: 0.9% Saline Lock 10 ML Syringe IV (18:55)
[2024-10-19] MEDS: Acetaminophen 500 MG Tablet 1000 MG PO (18:55)
[2024-10-20] MEDS: Enoxaparin 40 MG/0.4 ML Syringe SC (05:31)
[2024-10-20 06:15] LABS: ALB/GLOB Ratio 1.6 RATIO (0.9-2.4); AST(SGOT) 35 U/L (<=31); Alanine Aminotransfer ALT/SGPT 10 U/L (<=34); Albumin, Serum 3.5 g/dL (3.4-4.8); Alkaline Phosphatase 111 U/L (35-104); Anion Gap 10 (5-15); BUN 15 mg/dL (4-19); BUN/Creat Ratio 19.8 RATIO (10-20); Calcium,Total 9.6 mg/dL (7.6-11.0); Carbon Dioxide 27.4 mmol/L (21.0-32.0); Chloride 105 mmol/L (98-108); Cholesterol 196 mg/dL (<=200); Creatinine, Serum 0.78 mg/dL (0.70-1.20); EST Glomerular Filtration Rate 74 (>60); Estimated Creatinine Clearance 36.26 ml/min (50-250); Globulin 2.3 g/dL (2.2-4.2); Glucose 89 mg/dL (70-99); High Density Lipoprotein 80 mg/dL; Low Density Lipoprotein Calc. 92 mg/dL; Potassium 5.2 mmol/L (3.3-5.1); Protein, Total 5.8 g/dL (5.9-8.4); Sodium Level 143 mmol/L (133-145); Total Bilirubin 0.51 mg/dL (0.00-1.30); Triglycerides 121 mg/dL; Very Low Density Lipoprotein 24 mg/dL (5-40); cholesterol:hdl ratio screen 2.44
[2024-10-20] MEDS: Multivitamins,Therapeutic Tablet 1 TABLET PO (09:44)
[2024-10-20] MEDS: Magnesium Chloride 64 MG Delay Rel.Tablet 128 MG PO ×2 (09:44→20:00)
[2024-10-20] MEDS: Folic Acid 1 MG Tablet PO (09:44)
[2024-10-20] MEDS: Ascorbic Acid 500 MG Tablet PO (09:45)
[2024-10-20] MEDS: Pantoprazole Sodium 40 MG Tablet PO ×2 (09:45→20:01)
[2024-10-20] MEDS: predniSONE 5 MG Tablet PO (09:45)
[2024-10-20] MEDS: TOFACITINIB CITRATE 5 MG PO ×2 (09:45→20:00)
[2024-10-20] MEDS: Cholecalciferol (Vit D3) 125 MCG CAPSULE (5,000 UNITS) PO (09:45)
[2024-10-20] MEDS: traMADol 50 MG Tablet PO ×2 (09:48→20:00)
[2024-10-20] MEDS: 0.9% Saline Lock 10 ML Syringe IV (09:57)
--- NOTE | 2024-10-20 10:11 | NURSING ---
PT HAS HOME MED OF METHOTREXATE 2 VIALS LOCKED UP. DAUGHTER MARY CAME IN AND MED WAS SENT HOME WITH HER. RN AWARE
[2024-10-20] MEDS: Sodium Polystyrene Sulfonate 15 GM/60 ML UDC 30 GM PO (11:41)
--- NOTE | 2024-10-20 12:10 | NURSING ---
Addendum entered by Leroy Prater 10/20/24 16:31: PT HAD POSITIVE RESULTS OF A MEDUIM Original Note: KAYEXALATE GIVEN DUE TO PT POTASSIUM 5.2.
--- NOTE | 2024-10-20 12:26 | NURSING ---
Resident reports she only takes 0.75ml of methotrexate IM dose, questions the amount to be given. This RN called her [facility] pharmacy where she gets her meds, they confirmed she has been taking 18.75mg IM weekly. Updated Dr. Willingham, verbal order to change dose to dose [facility] pharmacy confirmed as home dose.
[2024-10-20] MEDS: Methotrexate Pf 50 MG/2ML VIAL 18.75 MG IM (14:00)
--- NOTE | 2024-10-20 17:08 | CASEMGMT ---
Social Work SW met with patient to complete initial assessment. Introduced self and role. Verified/updated contacts. Pt noted son, Alan, is HCPOA, but lives in [place] and dtr doesn't know that. SW requested to have copies provided to place on file, but pt stated her corporate associate attorney would have the copies and agreed for this worker to contact office. [employer] is [facility] in [place] ([phone] ext [phone]). SW left requesting return call. SW and pt discussed SDOH concerns and pt agreeable to apply for Medicaid and referral to Care Coordination program. SW provided resources. See SW assessment for details. SW sent referral to [facility]. SW completed [facility] referral via website. Pt's goal is to return home with grandson. SW will continue to follow for DC planning. Belkis HOFFMANW
[2024-10-21] MEDS: Enoxaparin 40 MG/0.4 ML Syringe SC (05:15)
[2024-10-21 06:32] LABS: Anion Gap 9 (5-15); BUN 18 mg/dL (4-19); BUN/Creat Ratio 23.4 RATIO (10-20); Calcium,Total 9.5 mg/dL (7.6-11.0); Carbon Dioxide 28.1 mmol/L (21.0-32.0); Chloride 105 mmol/L (98-108); Creatinine, Serum 0.76 mg/dL (0.70-1.20); EST Glomerular Filtration Rate 77 (>60); Estimated Creatinine Clearance 36.26 ml/min (50-250); Glucose 93 mg/dL (70-99); Potassium 4.6 mmol/L (3.3-5.1); Sodium Level 142 mmol/L (133-145)
[2024-10-21 08:53] VITALS: BP 122/67; PULSE 87; RESP 16; TEMP 36.9; O2SAT 96
[2024-10-21] MEDS: Multivitamins,Therapeutic Tablet 1 TABLET PO (08:55)
[2024-10-21] MEDS: predniSONE 5 MG Tablet PO (08:56)
[2024-10-21] MEDS: Pantoprazole Sodium 40 MG Tablet PO ×2 (08:56→21:55)
[2024-10-21] MEDS: Magnesium Chloride 64 MG Delay Rel.Tablet 128 MG PO ×2 (08:56→21:55)
[2024-10-21] MEDS: Folic Acid 1 MG Tablet PO (08:56)
[2024-10-21] MEDS: Ascorbic Acid 500 MG Tablet PO (08:56)
[2024-10-21] MEDS: TOFACITINIB CITRATE 5 MG PO ×2 (08:57→21:55)
[2024-10-21] MEDS: Cholecalciferol (Vit D3) 125 MCG CAPSULE (5,000 UNITS) PO (08:57)
[2024-10-21] MEDS: traMADol 50 MG Tablet PO ×2 (08:58→21:55)
[2024-10-21 22:15] VITALS: PULSE 79; O2SAT 95
[2024-10-22 04:30] VITALS: PULSE 72; O2SAT 93
[2024-10-22] MEDS: Enoxaparin 40 MG/0.4 ML Syringe SC (05:43)
[2024-10-22] MEDS: Folic Acid 1 MG Tablet PO (09:00)
[2024-10-22] MEDS: Magnesium Chloride 64 MG Delay Rel.Tablet 128 MG PO ×2 (09:51→21:53)
[2024-10-22] MEDS: Multivitamins,Therapeutic Tablet 1 TABLET PO (09:51)
[2024-10-22] MEDS: Ascorbic Acid 500 MG Tablet PO (09:52)
[2024-10-22] MEDS: Pantoprazole Sodium 40 MG Tablet PO ×2 (09:52→21:52)
[2024-10-22] MEDS: Cholecalciferol (Vit D3) 125 MCG CAPSULE (5,000 UNITS) PO (09:52)
[2024-10-22] MEDS: predniSONE 5 MG Tablet PO (09:52)
[2024-10-22] MEDS: TOFACITINIB CITRATE 5 MG PO ×2 (09:53→21:53)
[2024-10-22] MEDS: traMADol 50 MG Tablet PO ×2 (10:00→21:52)
[2024-10-22 15:26] VITALS: BP 105/64; PULSE 79; RESP 16; TEMP 36.9; O2SAT 92
[2024-10-22] MEDS: Acetaminophen 500 MG Tablet 1000 MG PO (17:39)
[2024-10-23 03:59] VITALS: RESP 16
[2024-10-23 08:35] VITALS: BP 115/71; PULSE 86; RESP 14; TEMP 37.2; O2SAT 97
[2024-10-23] MEDS: Magnesium Chloride 64 MG Delay Rel.Tablet 128 MG PO ×2 (08:37→22:02)
[2024-10-23] MEDS: Senna/Docusate Sodium 1 Tablet 2 TABLET PO (08:37)
[2024-10-23] MEDS: predniSONE 5 MG Tablet PO (08:38)
[2024-10-23] MEDS: Cholecalciferol (Vit D3) 125 MCG CAPSULE (5,000 UNITS) PO (08:38)
[2024-10-23] MEDS: Pantoprazole Sodium 40 MG Tablet PO ×2 (08:38→22:02)
[2024-10-23] MEDS: Ascorbic Acid 500 MG Tablet PO (08:38)
[2024-10-23] MEDS: Folic Acid 1 MG Tablet PO (08:38)
[2024-10-23] MEDS: TOFACITINIB CITRATE 5 MG PO ×2 (08:39→22:01)
[2024-10-23] MEDS: Multivitamins,Therapeutic Tablet 1 TABLET PO (08:39)
[2024-10-23] MEDS: Enoxaparin 40 MG/0.4 ML Syringe SC (08:39)
[2024-10-23] MEDS: traMADol 50 MG Tablet PO ×2 (08:46→22:04)
[2024-10-23] MEDS: Buprenorphine 5 MCG PATCH.TDWK 1 PATCH TD (11:03)
[2024-10-24] MEDS: Acetaminophen 500 MG Tablet 1000 MG PO (03:59)
--- NOTE | 2024-10-24 08:52 | NURSING ---
Offered covid vaccine, VIS provided. Resident declines.
[2024-10-24] MEDS: Enoxaparin 40 MG/0.4 ML Syringe SC (09:06)
[2024-10-24] MEDS: Folic Acid 1 MG Tablet PO (09:06)
[2024-10-24] MEDS: Magnesium Chloride 64 MG Delay Rel.Tablet 128 MG PO ×2 (09:07→19:52)
[2024-10-24] MEDS: Multivitamins,Therapeutic Tablet 1 TABLET PO (09:09)
[2024-10-24] MEDS: Pantoprazole Sodium 40 MG Tablet PO ×2 (09:09→19:52)
[2024-10-24] MEDS: predniSONE 5 MG Tablet PO (09:09)
[2024-10-24] MEDS: TOFACITINIB CITRATE 5 MG PO ×2 (09:10→19:53)
[2024-10-24] MEDS: Ascorbic Acid 500 MG Tablet PO (09:10)
[2024-10-24] MEDS: Cholecalciferol (Vit D3) 125 MCG CAPSULE (5,000 UNITS) PO (09:10)
[2024-10-24 09:18] VITALS: BP 117/65; PULSE 77; RESP 16; TEMP 36.8; O2SAT 95
[2024-10-24] MEDS: traMADol 50 MG Tablet PO ×2 (09:20→19:56)
--- NOTE | 2024-10-24 10:53 | CASEMGMT ---
Social Work SW recieved call from [facility]. Referral had been made for assessment. Pt lives in [facility] which is not covered by [facility]. will send referral to [facility] who will follow up with pt once pt returns home. Pt has been assessed by Karen from [facility] and Karen applied for Medicaid for pt. KEANU Doan
--- NOTE | 2024-10-24 11:06 | NURSING ---
Resident having increased pain to right hip, Dr. Willingham ordered CT. Per insurance no auth needed, order faxed to [place]. Resident updated.
--- NOTE | 2024-10-24 13:46 | NURSING ---
Addendum entered by Bernie Manjarrez 10/25/24 14:32: Called office to f/u. Dr. Preston wants her seen in office, appt scheduled for 10/27/24 at 1445 with Yesi NELSON. Friend will transport to [facility], dtr will meet her at [facility] and bring her back to TCU. Friend will call when downstairs and ready, requesting staff then bring her down and send WC with her. Addendum entered by Bernie Manjarrez 10/24/24 14:34: Call from Dr. Bergeron that because Dr. Preston did hip surgery he needs to be the one to see her. Left clinical staff at [facility] to see if Dr. Preston will come here or appt needs made for office. Addendum entered by Bernie Manjarrez 10/24/24 14:27: Called [facility], spoke with Kiana who discussed with Dr. Bergeron and he will come to TCU to see resident after clinic today. Updated resident and dtr Cassy. Original Note: Reviewed results of CT scan with Dr. Willingham via phone, order to set up [facility] appt. LIZ. Updated resident.
[2024-10-24] MEDS: Senna/Docusate Sodium 1 Tablet 2 TABLET PO (19:52)
[2024-10-25 06:36] VITALS: BP 136/92; PULSE 82; RESP 18; TEMP 36.4; O2SAT 98
[2024-10-25] MEDS: Acetaminophen 500 MG Tablet 1000 MG PO (06:50)
[2024-10-25] MEDS: predniSONE 5 MG Tablet PO (09:51)
[2024-10-25] MEDS: Folic Acid 1 MG Tablet PO (09:51)
[2024-10-25] MEDS: Multivitamins,Therapeutic Tablet 1 TABLET PO (09:51)
[2024-10-25] MEDS: Magnesium Chloride 64 MG Delay Rel.Tablet 128 MG PO ×2 (09:51→21:18)
[2024-10-25] MEDS: Pantoprazole Sodium 40 MG Tablet PO ×2 (09:52→21:18)
[2024-10-25] MEDS: TOFACITINIB CITRATE 5 MG PO ×2 (09:52→21:18)
[2024-10-25] MEDS: Cholecalciferol (Vit D3) 125 MCG CAPSULE (5,000 UNITS) PO (09:52)
[2024-10-25] MEDS: Ascorbic Acid 500 MG Tablet PO (09:52)
[2024-10-25] MEDS: traMADol 50 MG Tablet PO ×2 (09:55→21:18)
[2024-10-25] MEDS: Enoxaparin 40 MG/0.4 ML Syringe SC (09:56)
[2024-10-25 12:53] VITALS: BP 106/60; PULSE 84; RESP 16; TEMP 36.4; O2SAT 96
--- NOTE | 2024-10-25 14:46 | CASEMGMT ---
BIMS () and PHQ2 (0) interviews completed on this date for MDS assessment. KEANU Doan
[2024-10-25 15:06] VITALS: BMI 22.5
[2024-10-25] MEDS: Glycerin/Hypromellose/PEG400 15 ml Bottle 2 DRP EACH EYE (18:28)
[2024-10-26 05:39] LABS: Absolute Lymphocyte Count 0.91 X10^3/uL (0.83-4.51); Absolute Neutrophil Count 5.2 X10^3/uL (2.0-7.7); Basophil# 0.06 X10^3/uL; Basophil% 0.8 % (0-1); Eosinophil# 0.21 X10^3/uL; Eosinophils% 2.8 % (0-5); Hematocrit 31.1 % (37-47); Hemoglobin 10.1 g/dL (12.0-15.0); Lymphocyte # 0.91 X10^3/ul (0.83-4.51); Lymphocyte % 12.2 % (19-41); Mean Corp Hgb Conc 32.5 g/dL (32-36); Mean Corpuscular Hgb 32.1 pg (27.0-32.0); Mean Corpuscular Volume 98.7 fL (81-99); Monocyte# 1.07 X10^3/uL; Monocyte% 14.4 % (0-10); NRBC Flagged by Analyzer 0 % (0-5); Neutrophil # 5.15 X10^3/uL (2.7-7.7); Neutrophil % 69.1 % (47-70); Platelet Count 357 K/mm3 (150-450); RBC Distribution Width CV 15.7 % (11.6-14.6); RBC Distribution Width SD 55.8 fl (35.1-43.9); Red Blood Count 3.15 M/mm3 (4.2-5.4); White Blood Count 7.5 K/mm3 (4.4-11.0)
[2024-10-26 06:08] LABS: Anion Gap 9 (5-15); BUN 17 mg/dL (4-19); BUN/Creat Ratio 22.4 RATIO (10-20); Carbon Dioxide 25.1 mmol/L (21.0-32.0); Chloride 105 mmol/L (98-108); Creatinine, Serum 0.77 mg/dL (0.70-1.20); EST Glomerular Filtration Rate 75 (>60); Estimated Creatinine Clearance 36.26 ml/min (50-250); Glucose 88 mg/dL (70-99); Potassium 4.4 mmol/L (3.3-5.1); Sodium Level 139 mmol/L (133-145)
[2024-10-26] MEDS: Alendronate Sodium 70 MG Tablet PO (06:10)
[2024-10-26] MEDS: oxyCODONE 5 MG Tablet PO (06:10)
--- NOTE | 2024-10-26 08:39 | NURSING ---
Sheriffs Note; MDS for 10/25/2024 complete
[2024-10-26] MEDS: Folic Acid 1 MG Tablet PO (08:41)
[2024-10-26] MEDS: Magnesium Chloride 64 MG Delay Rel.Tablet 128 MG PO ×2 (08:41→21:22)
[2024-10-26] MEDS: Cholecalciferol (Vit D3) 125 MCG CAPSULE (5,000 UNITS) PO (08:42)
[2024-10-26] MEDS: Multivitamins,Therapeutic Tablet 1 TABLET PO (08:42)
[2024-10-26] MEDS: TOFACITINIB CITRATE 5 MG PO ×2 (08:42→21:22)
[2024-10-26] MEDS: Pantoprazole Sodium 40 MG Tablet PO ×2 (08:42→21:22)
[2024-10-26] MEDS: Ascorbic Acid 500 MG Tablet PO (08:42)
[2024-10-26] MEDS: predniSONE 5 MG Tablet PO (08:42)
[2024-10-26] MEDS: traMADol 50 MG Tablet PO ×2 (08:46→21:22)
[2024-10-26] MEDS: Enoxaparin 40 MG/0.4 ML Syringe SC (08:48)
--- NOTE | 2024-10-26 10:26 | CASEMGMT ---
Plan of care meeting held with pt present and pt's children Rashmi and Alan on speaker phone. Therapy/Nutrition/Activities provided update on pt current progress. Pt had been making progress with therapy. New imaging showing fracture and pt to see orthopedic surgeon tomorrow for consultation. Pain is now a limiting factor with therapy. VICENTA educated pt and family on [facility] MCR benefit with NRD on 10/28 and expected dc on 11/01. SW provided written communication on insurance process. Pt lives home with a grandson, however grandson works and is not able to provide assistance at home. Pt does not feel she is ready to dc on 11/01, but also does not want to go to [facility] or SNF. VICENTA will follow up with pt for continued discharge planning after pt is seen by orthopedics. KEANU Doan
[2024-10-26 16:00] VITALS: BP 116/56; PULSE 91; RESP 18; TEMP 36.7; O2SAT 94
[2024-10-26] MEDS: Tuberculin,Purif.prot.deriv. 50 TU/ML Vial 0.1 ML ID (16:53)
[2024-10-26 19:35] VITALS: RESP 16
[2024-10-27] MEDS: Glycerin/Hypromellose/PEG400 15 ml Bottle 2 DRP EACH EYE (08:54)
[2024-10-27 08:55] VITALS: BP 104/65; PULSE 100; RESP 16; TEMP 36.9; O2SAT 95
[2024-10-27] MEDS: Cholecalciferol (Vit D3) 125 MCG CAPSULE (5,000 UNITS) PO (08:55)
[2024-10-27] MEDS: Ascorbic Acid 500 MG Tablet PO (08:55)
[2024-10-27] MEDS: Multivitamins,Therapeutic Tablet 1 TABLET PO (08:55)
[2024-10-27] MEDS: predniSONE 5 MG Tablet PO (08:55)
[2024-10-27] MEDS: Enoxaparin 40 MG/0.4 ML Syringe SC (08:55)
[2024-10-27] MEDS: Magnesium Chloride 64 MG Delay Rel.Tablet 128 MG PO ×2 (08:55→21:56)
[2024-10-27] MEDS: Folic Acid 1 MG Tablet PO (08:55)
[2024-10-27] MEDS: Pantoprazole Sodium 40 MG Tablet PO ×2 (08:55→21:56)
[2024-10-27] MEDS: TOFACITINIB CITRATE 5 MG PO ×2 (08:56→21:56)
[2024-10-27] MEDS: traMADol 50 MG Tablet PO ×2 (08:59→21:55)
[2024-10-27] MEDS: oxyCODONE 5 MG Tablet PO (13:17)
--- NOTE | 2024-10-27 14:00 | NURSING ---
pt left unit for appt
--- NOTE | 2024-10-27 16:04 | NURSING ---
pt returned from appt
[2024-10-27] MEDS: Methotrexate Pf 50 MG/2ML VIAL 18.75 MG IM (16:14)
[2024-10-28] MEDS: Magnesium Chloride 64 MG Delay Rel.Tablet 128 MG PO ×2 (09:08→20:53)
[2024-10-28] MEDS: Multivitamins,Therapeutic Tablet 1 TABLET PO (09:08)
[2024-10-28] MEDS: Ascorbic Acid 500 MG Tablet PO (09:08)
[2024-10-28] MEDS: predniSONE 5 MG Tablet PO (09:08)
[2024-10-28] MEDS: Pantoprazole Sodium 40 MG Tablet PO ×2 (09:08→20:53)
[2024-10-28] MEDS: Cholecalciferol (Vit D3) 125 MCG CAPSULE (5,000 UNITS) PO (09:08)
[2024-10-28] MEDS: traMADol 50 MG Tablet PO ×2 (09:08→20:52)
[2024-10-28] MEDS: TOFACITINIB CITRATE 5 MG PO ×2 (09:09→20:52)
[2024-10-28] MEDS: Enoxaparin 40 MG/0.4 ML Syringe SC (09:09)
[2024-10-28] MEDS: Folic Acid 1 MG Tablet PO (09:09)
--- NOTE | 2024-10-28 11:38 | NURSING ---
Called and spoke with clinical staff at Dr. Preston's office, they confirmed resident to be [facility] RLE, will fax note over from Yesi NELSON.
[2024-10-28] MEDS: oxyCODONE 5 MG Tablet PO (13:18)
[2024-10-28 14:47] VITALS: BP 114/68; PULSE 88; RESP 16; TEMP 36.2; O2SAT 93
--- NOTE | 2024-10-28 14:55 | CASEMGMT ---
Social Work NRD with insurance issued for 11/02. Pt notified and appreciative of information. Pt requesting SW update dgt. VM left with pt dgt Cassy updated with the same information. SW will continue to follow for dc planning. KEANU Washburn
[2024-10-29] MEDS: Enoxaparin 40 MG/0.4 ML Syringe SC (08:58)
[2024-10-29] MEDS: Folic Acid 1 MG Tablet PO (08:58)
[2024-10-29] MEDS: Pantoprazole Sodium 40 MG Tablet PO ×2 (08:59→21:03)
[2024-10-29] MEDS: Cholecalciferol (Vit D3) 125 MCG CAPSULE (5,000 UNITS) PO (08:59)
[2024-10-29] MEDS: Ascorbic Acid 500 MG Tablet PO (09:00)
[2024-10-29] MEDS: Magnesium Chloride 64 MG Delay Rel.Tablet 128 MG PO ×2 (09:00→21:03)
[2024-10-29] MEDS: predniSONE 5 MG Tablet PO (09:01)
[2024-10-29] MEDS: Multivitamins,Therapeutic Tablet 1 TABLET PO (09:01)
[2024-10-29] MEDS: TOFACITINIB CITRATE 5 MG PO ×2 (09:05→21:04)
[2024-10-29] MEDS: traMADol 50 MG Tablet PO ×2 (09:05→21:04)
[2024-10-29 10:00] VITALS: PULSE 87; RESP 16; O2SAT 98
[2024-10-29 16:00] VITALS: BP 110/77; PULSE 72; RESP 18; TEMP 36.5; O2SAT 96
[2024-10-29] MEDS: oxyCODONE 5 MG Tablet PO (21:05)
[2024-10-30 09:02] VITALS: BP 103/64; PULSE 73; RESP 16; TEMP 36.7; O2SAT 96
[2024-10-30] MEDS: TOFACITINIB CITRATE 5 MG PO ×2 (09:08→22:28)
[2024-10-30] MEDS: Magnesium Chloride 64 MG Delay Rel.Tablet 128 MG PO ×2 (09:09→22:21)
[2024-10-30] MEDS: Folic Acid 1 MG Tablet PO (09:09)
[2024-10-30] MEDS: predniSONE 5 MG Tablet PO (09:09)
[2024-10-30] MEDS: Multivitamins,Therapeutic Tablet 1 TABLET PO (09:09)
[2024-10-30] MEDS: Enoxaparin 40 MG/0.4 ML Syringe SC (09:09)
[2024-10-30] MEDS: Ascorbic Acid 500 MG Tablet PO (09:10)
[2024-10-30] MEDS: Pantoprazole Sodium 40 MG Tablet PO ×2 (09:10→22:21)
[2024-10-30] MEDS: Cholecalciferol (Vit D3) 125 MCG CAPSULE (5,000 UNITS) PO (09:10)
[2024-10-30] MEDS: traMADol 50 MG Tablet PO ×2 (09:20→22:30)
[2024-10-30] MEDS: Senna/Docusate Sodium 1 Tablet 2 TABLET PO ×2 (09:20→22:23)
[2024-10-30] MEDS: Buprenorphine 5 MCG PATCH.TDWK 1 PATCH TD (09:27)
--- NOTE | 2024-10-30 09:34 | NURSING ---
New butrans patch applied to right chest, old patch removed from left chest and wasted with Radha Odnonell RN
--- NOTE | 2024-10-30 16:42 | NURSING ---
No Bm since 10/27, resident refused miralax this morning, agreed to take senna, still no BM does not want prn mag citrate or enema, is agreeable to gagan, Dr. Willingham updated N.O. milk of mag 30ml PO QD PRN
[2024-10-31] MEDS: traMADol 50 MG Tablet PO ×2 (08:01→22:48)
[2024-10-31] MEDS: Enoxaparin 40 MG/0.4 ML Syringe SC (08:01)
[2024-10-31] MEDS: Pantoprazole Sodium 40 MG Tablet PO ×2 (08:02→22:47)
[2024-10-31] MEDS: Magnesium Chloride 64 MG Delay Rel.Tablet 128 MG PO ×2 (08:02→22:45)
[2024-10-31] MEDS: Multivitamins,Therapeutic Tablet 1 TABLET PO (08:02)
[2024-10-31] MEDS: Folic Acid 1 MG Tablet PO (08:02)
[2024-10-31] MEDS: predniSONE 5 MG Tablet PO (08:02)
[2024-10-31] MEDS: TOFACITINIB CITRATE 5 MG PO ×2 (08:03→22:48)
[2024-10-31] MEDS: Ascorbic Acid 500 MG Tablet PO (08:03)
--- NOTE | 2024-10-31 09:45 | MDS.RN ---
Information for the MDS was obtained from review of the clinical record, interview of resident, staff, and direct observation of resident?s care.
[2024-10-31] MEDS: Cholecalciferol (Vit D3) 125 MCG CAPSULE (5,000 UNITS) PO (10:06)
[2024-10-31 15:20] VITALS: BP 124/74; PULSE 87; RESP 16; TEMP 37; O2SAT 96
[2024-11-01 08:01] VITALS: BP 130/72; PULSE 74; RESP 16; TEMP 36.9; O2SAT 95
[2024-11-01] MEDS: Glycerin/Hypromellose/PEG400 15 ml Bottle 2 DRP EACH EYE (08:02)
[2024-11-01] MEDS: Enoxaparin 40 MG/0.4 ML Syringe SC (08:04)
[2024-11-01] MEDS: Folic Acid 1 MG Tablet PO (08:04)
[2024-11-01] MEDS: Magnesium Chloride 64 MG Delay Rel.Tablet 128 MG PO ×2 (08:04→23:14)
[2024-11-01] MEDS: TOFACITINIB CITRATE 5 MG PO ×2 (08:05→23:16)
[2024-11-01] MEDS: Pantoprazole Sodium 40 MG Tablet PO ×2 (08:05→23:15)
[2024-11-01] MEDS: predniSONE 5 MG Tablet PO (08:05)
[2024-11-01] MEDS: Cholecalciferol (Vit D3) 125 MCG CAPSULE (5,000 UNITS) PO (08:05)
[2024-11-01] MEDS: Ascorbic Acid 500 MG Tablet PO (08:05)
[2024-11-01] MEDS: Multivitamins,Therapeutic Tablet 1 TABLET PO (08:05)
[2024-11-01] MEDS: traMADol 50 MG Tablet PO ×2 (08:07→23:15)
[2024-11-01 13:39] VITALS: BMI 22.2
--- NOTE | 2024-11-01 14:42 | CASEMGMT ---
Social Work SW received call from dtr, Rashmi, stating she has arranged pt to have caregivers during the day with pt while grandson is working, thus pt will have 24/7 care at time of DC. Dtr is completing additional tasks in the home to ensure safety, such as grab bars and handrails. SW to notify pt/dtr once insurance issues LCD. Will continue to follow. Belkis Reaves [employer]TY SERVICES MANAGER MEDICAL CLAIMS ASSISTANT
--- NOTE | 2024-11-01 17:46 | NURSING ---
butrans patch intact to RT chest
[2024-11-01] MEDS: Senna/Docusate Sodium 1 Tablet 2 TABLET PO (23:15)
[2024-11-02 05:50] LABS: Absolute Neutrophil Count 4.3 X10^3/uL (2.0-7.7); Basophil# 0.08 X10^3/uL; Basophil% 1.3 % (0-1); Eosinophil# 0.16 X10^3/uL; Eosinophils% 2.5 % (0-5); Hematocrit 32.1 % (37-47); Hemoglobin 9.8 g/dL (12.0-15.0); Lymphocyte % 14.2 % (19-41); Mean Corp Hgb Conc 30.5 g/dL (32-36); Mean Corpuscular Hgb 31.2 pg (27.0-32.0); Mean Corpuscular Volume 102.2 fL (81-99); Mean Platelet Vol. 11.3 fl (6.2-12.0); Monocyte# 0.92 X10^3/uL; Monocyte% 14.5 % (0-10); NRBC Flagged by Analyzer 0 % (0-5); Neutrophil # 4.26 X10^3/uL (2.7-7.7); Neutrophil % 66.9 % (47-70); Platelet Count 408 K/mm3 (150-450); RBC Distribution Width CV 15.4 % (11.6-14.6); Red Blood Count 3.14 M/mm3 (4.2-5.4); White Blood Count 6.4 K/mm3 (4.4-11.0)
[2024-11-02] MEDS: Alendronate Sodium 70 MG Tablet PO (06:24)
[2024-11-02 06:39] LABS: Anion Gap 11 (5-15); BUN 16 mg/dL (4-19); BUN/Creat Ratio 18.8 RATIO (10-20); Calcium,Total 8.8 mg/dL (7.6-11.0); Carbon Dioxide 24.8 mmol/L (21.0-32.0); Chloride 104 mmol/L (98-108); Creatinine, Serum 0.83 mg/dL (0.70-1.20); EST Glomerular Filtration Rate 69 (>60); Estimated Creatinine Clearance 34.95 ml/min (50-250); Glucose 89 mg/dL (70-99); Potassium 4.3 mmol/L (3.3-5.1); Sodium Level 140 mmol/L (133-145)
[2024-11-02 08:20] VITALS: BP 100/54; PULSE 80; RESP 17; TEMP 36.7; O2SAT 95
[2024-11-02] MEDS: TOFACITINIB CITRATE 5 MG PO ×2 (09:35→21:09)
[2024-11-02] MEDS: Cholecalciferol (Vit D3) 125 MCG CAPSULE (5,000 UNITS) PO (09:35)
[2024-11-02] MEDS: Ascorbic Acid 500 MG Tablet PO (09:35)
[2024-11-02] MEDS: predniSONE 5 MG Tablet PO (09:36)
[2024-11-02] MEDS: Folic Acid 1 MG Tablet PO (09:36)
[2024-11-02] MEDS: Pantoprazole Sodium 40 MG Tablet PO ×2 (09:36→21:08)
[2024-11-02] MEDS: Magnesium Chloride 64 MG Delay Rel.Tablet 128 MG PO ×2 (09:36→21:08)
[2024-11-02] MEDS: Multivitamins,Therapeutic Tablet 1 TABLET PO (09:36)
[2024-11-02] MEDS: Enoxaparin 40 MG/0.4 ML Syringe SC (09:36)
[2024-11-02] MEDS: traMADol 50 MG Tablet PO ×2 (09:39→21:08)
[2024-11-02 10:00] VITALS: PULSE 83; RESP 16; O2SAT 95
--- NOTE | 2024-11-02 16:28 | CASEMGMT ---
Social Work Insurance issued LCD 11/04, DC 11/05 SW spoke with pt at bedside while dtr was on conference call. Informed of DC date 11/05. SW provided [facility] to pt and educated to appeal rights. Pt verbalized understanding and denied appeal. Pt and dtr is agreeable to DC. SW confirmed pt's wish to have [facility] for skilled services. pt confirmed. Pt denied any DME needs. Dtr to transport at [facility]. - VICENTA phoned referral to [facility] for PT/OT/SN Plan: DC home with grandson 11/05, [facility] PT/OT/SN Belkis Reaves MSW DOPE MAINTENANCE WORKER
--- NOTE | 2024-11-02 20:38 | DS.PCM_ITS ---
Providers Date of Admission: 10/18/24 Primary Care Physician: Milagros Aguirre NP-C Reason For Visit: FALL Diagnosis Discharge Diagnosis (1) Debility: Status: Inactive Code(s): R53.81 - Other malaise (2) Fall: Status: Resolved Code(s): W19.XXXA - Unspecified fall, initial encounter (3) Inability to ambulate due to hip: Status: Inactive Code(s): R26.2 - Difficulty in walking, not elsewhere classified (4) Contusion of right hip and thigh: Status: Inactive Code(s): S70.01XA - Contusion of right hip, initial encounter; S70.11XA - Contusion of right thigh, initial encounter (5) Osteoporosis: Status: Acute Code(s): M81.0 - Age-related osteoporosis without current pathological fracture (6) Vitamin C deficiency: Status: Acute Code(s): E54 - Ascorbic acid deficiency (7) Osteoarthritis: Status: Acute Code(s): M19.90 - Unspecified osteoarthritis, unspecified site (8) GERD (gastroesophageal reflux disease): Status: Acute Code(s): K21.9 - Gastro-esophageal reflux disease without esophagitis (9) Rheumatoid arthritis: Status: Acute Code(s): M06.9 - Rheumatoid arthritis, unspecified (10) Muscle spasm: Status: Acute Code(s): M62.838 - Other muscle spasm (11) Vitamin D deficiency: Status: Acute Code(s): E55.9 - Vitamin D deficiency, unspecified Plan 84 year old female with below past medical history hospitalized for fall, inability to walk 2/2 right shoulder contusion, right hip contusion, right thigh contusion, admitted to TCU with debility, here for rehabilitation, strengthening, prior to discharge home with grandson. * Debility - PT/OT. * Pain - Tramadol 50mg bid, Butrans 5mcg 1 patch td qweek. * Bowel - Miralax 17gm daily, senna/colace 2 tablets bid, Magnesium citrate 300mL daily prn. * Adult immunization - Administer pneumonia vaccine, covid vaccine, flu vaccine as appropriate. * DVT prophylaxis - Lovenox 40mg sc daily. * Osteoporosis - Fosamax 70mg qweek. * Vitamin C deficiency - Vitamin C 500mg daily. * Vitamin D deficiency - Vitamin D 125mg daily. * Rheumatoid arthritis - MTX 75mg im qweek, Xeljanz 5mg bid, Prednisone 5mg daily, Folic acid 1mg daily. * Hypomagnesemia - Magnesium chloride 128mg bid. * Nutrition - MVI 1 tablet daily. * GERD/Zenker's diverticulum - Pantoprazole 40mg bid. Medications at Discharge Home Medications prednisone 5 mg tablet 5 mg PO DAILY Check with primary doctor 11/29/13 alendronate 70 mg tablet (Fosamax) 70 mg PO QWEEK Check with primary doctor 11/10/18 folic acid 400 mcg tablet 0.8 mg PO DAILY@0800 Supplement 11/10/18 multivitamin 3 tab PO DAILY Supplement 06/25/21 tofacitinib 5 mg tablet (Xeljanz) 5 mg PO BID Check with primary doctor 06/25/21 ascorbic acid (vitamin C) 500 mg capsule 500 mg PO DAILY Supplement 05/27/22 cholecalciferol (vitamin D3) 50 mcg (2,000 unit) capsule 125 mcg PO DAILY Supplement 03/17/23 buprenorphine 5 mcg/hour weekly transdermal patch (Butrans) 1 patch transdermal QWEEK pain 03/15/24 tramadol 50 mg tablet 50 mg PO BID pain 03/15/24 pantoprazole 40 mg tablet,delayed release 40 mg PO BID acid reflux #60 tabs 03/29/24 magnesium 200 mg tablet 400 mg PO BID supplement 10/15/24 acetaminophen 500 mg tablet 1,000 mg (2 x 500 mg) PO Q6H PRN PRN Pain Score 1-3 #0 tabs 11/02/24 methotrexate sodium (PF) 25 mg/mL injection solution 18.75 mg (0.75 mL) IM TH #0 mL 11/02/24 Hospital Course Operations None Procedures None Summary of Care Provided Minutes Spent on Discharge: 35 Hospital Course: 84 year old female with below past medical history hospitalized for fall, inability to walk 2/2 right shoulder contusion, right hip contusion, right thigh contusion, admitted to TCU with debility, here for rehabilitation, strengthening, prior to discharge home with grandson. Discharge home with grandson 11/05/2024, [facility] PT/OT/SN. Physical Exam Const alert General Appearance: cooperative HEENT normocephalic Eyes PERRL and EOMs intact bilaterally Neck supple, no JVD and no carotid bruits Resp normal respiratory effort, normal air movement and clear to auscultation bilaterally Cardio regular rate and regular rhythm GI normal to inspection, nondistended, normoactive bowel sounds, non-tender and non-distended Extremity normal capillary refill General Extremity: Negative for edema Skin no rashes or lesions noted General Skin Exam: no breakdown Psych affect normal Appearance: appropriate Weight / BMI Weight Weight: 51.619 kg Body Mass Index (BMI) 22.2 ABG / Lab / Microbiology Data 11/02/24 05:19 11/02/24 05:19 Laboratory: Laboratory Results - last 24 hr 11/02/24 05:19: WBC 6.4, RBC 3.14 L, Hgb 9.8 L, Hct 32.1 L, MCV 102.2 H, MCH 31.2, MCHC 30.5 L, RDW Std Deviation 57.0 H, RDW Coeff of Eusebio 15.4 H, Plt Count 408, MPV 11.3, Immature Gran % (Auto) 0.600, Neut % (Auto) 66.9, Lymph % (Auto) 14.2 L, Cross % (Auto) 14.5 H, Eos % (Auto) 2.5, Baso % (Auto) 1.3 H, Absolute Neuts (auto) 4.3, Absolute Lymphs (auto) 0.90, Nucleated RBC % 0, Sodium 140, Potassium 4.3, Chloride 104, Carbon Dioxide 24.8, Anion Gap 11, BUN 16, Creatinine 0.83, Estim Creat Clear Calc 34.95 L, Est GFR (MDRD) Non-Af 69, BUN/Creatinine Ratio 18.8, Glucose 89, Calcium 8.8 D/C Instructions Discharge Diet: No restrictions Discharge Activity: Return to Normal Activity, May Shower and Use Walker Weight Bearing Status: Weight bearing as tolerated Call your doctor if you observe: Fever of 101 or Higher, Inability to urinate, Inability to have a bowel movement, Shortness of breath, Dizziness, Fainting spells, Swelling in the ankles, Chest pain and Uncontrolled pain DC O2, CPAP, BIPAP Needs Home O2 Discharge instructions: No Additional Instructions: Discharge home with jack 11/05/2024, [facility] PT/OT/SN. Please Follow Up With: Yesi NELSON When: As scheduled. Meaningful Use Info Meaningful Use Meaningful Use Diagnoses (Choose all that apply): None applicable Ischemic Stroke Statin Dosing Therapy Reference: STATIN DOSE THERAPY REFERENCE: * Patients > 75 years receive moderate or high dose statin therapy. * Patients 75 years or YOUNGER should receive HIGH intensity statin dose unless contraindicated. You will be required to document reason for non-treatment if statin daily dose does not meet guidelines. HIGH DOSE STATIN THERAPY DAILY Atorvastatin > than or = to 40 mg Rosuvastatin > than or = to 20 mg Amlodipine + Atorvastatin > than or = to 2.5/40 mg Ezetimibe + Simvastatin 10/80 mg Simvastatin 80mg Discharge Plan Admission Admit Date/Time: 10/18/24 16:07 Primary Reason for Your Visit: Debility. Attending Provider: Adalberto Willingham Chi Primary Care Provider: Milagros Aguirre NP Instructions Additional Instructions / Restrictions: Discharge home with jack 11/05/2024, [facility] PT/OT/SN. Discharge Orders/Prescriptions Prescriptions: New acetaminophen 500 mg Tablet 1,000 mg PO Q6H PRN PRN (Reason: Pain Score 1-3) Qty: 0 0RF methotrexate sodium (PF) 25 mg/mL Solution 18.75 mg IM TH Qty: 0 0RF Continued alendronate [Fosamax] 70 mg tablet 70 mg PO QWEEK ascorbic acid (vitamin C) 500 mg capsule 500 mg PO DAILY cholecalciferol (vitamin D3) 50 mcg (2,000 unit) capsule 125 mcg PO DAILY buprenorphine [Butrans] 5 mcg/hour patch weekly 1 patch transdermal QWEEK Patient Comments: pt takes on thursday tramadol 50 mg tablet 50 mg PO BID pantoprazole 40 mg tablet,delayed release (DR/EC) 40 mg PO BID Qty: 60 2RF prednisone 5 MG tablet 5 mg PO DAILY folic acid 400 mcg tablet 0.8 mg PO DAILY@0800 multivitamin Tablet 3 tab PO DAILY Xeljanz 5 mg tablet 5 mg PO BID magnesium 200 mg tablet 400 mg PO BID Discontinued methotrexate sodium (PF) 25 MG/ML solution 75 mg IM TH Referrals / Follow Up: Milagros Aguirre NP, PATIENT ACCOUNTING REPRESENTATIVE-C [Primary Care Provider] - Yesi Shirley PA [Med Staff - [facility]] - 11/18/24 2:00 pm Disposition Disposition (needs filled in before D/C Order can be placed): Home Health Service
[2024-11-02] MEDS: Senna/Docusate Sodium 1 Tablet 2 TABLET PO (21:08)
[2024-11-03 08:46] VITALS: BP 103/65; PULSE 89; RESP 16; TEMP 37.7; O2SAT 92
[2024-11-03] MEDS: TOFACITINIB CITRATE 5 MG PO ×2 (08:50→21:48)
[2024-11-03] MEDS: Magnesium Chloride 64 MG Delay Rel.Tablet 128 MG PO ×2 (08:51→21:47)
[2024-11-03] MEDS: Pantoprazole Sodium 40 MG Tablet PO ×2 (08:51→21:47)
[2024-11-03] MEDS: Enoxaparin 40 MG/0.4 ML Syringe SC (08:51)
[2024-11-03] MEDS: Folic Acid 1 MG Tablet PO (08:51)
[2024-11-03] MEDS: Cholecalciferol (Vit D3) 125 MCG CAPSULE (5,000 UNITS) PO (08:51)
[2024-11-03] MEDS: Multivitamins,Therapeutic Tablet 1 TABLET PO (08:51)
[2024-11-03] MEDS: predniSONE 5 MG Tablet PO (08:51)
[2024-11-03] MEDS: Ascorbic Acid 500 MG Tablet PO (08:51)
[2024-11-03] MEDS: traMADol 50 MG Tablet PO ×2 (09:00→21:47)
[2024-11-03] MEDS: Methotrexate Pf 50 MG/2ML VIAL 18.75 MG IM (14:54)
--- NOTE | 2024-11-03 15:31 | CASEMGMT ---
Social Work SW completed BIMS () and PHQ-2 () for MDS assessment. Belkis Reaves LEARNING ADMINISTRATOR RED LEAD BURNER
[2024-11-04 05:54] LABS: Hemoglobin 9.9 g/dL (12.0-15.0)
[2024-11-04] MEDS: Folic Acid 1 MG Tablet PO (08:48)
[2024-11-04] MEDS: Cholecalciferol (Vit D3) 125 MCG CAPSULE (5,000 UNITS) PO (08:49)
[2024-11-04] MEDS: Ascorbic Acid 500 MG Tablet PO (08:49)
[2024-11-04] MEDS: TOFACITINIB CITRATE 5 MG PO ×2 (08:49→21:21)
[2024-11-04] MEDS: Magnesium Chloride 64 MG Delay Rel.Tablet 128 MG PO ×2 (08:49→21:20)
[2024-11-04] MEDS: Multivitamins,Therapeutic Tablet 1 TABLET PO (08:49)
[2024-11-04] MEDS: Pantoprazole Sodium 40 MG Tablet PO ×2 (08:50→21:20)
[2024-11-04] MEDS: predniSONE 5 MG Tablet PO (08:50)
[2024-11-04] MEDS: traMADol 50 MG Tablet PO ×2 (08:52→21:18)
[2024-11-04] MEDS: Enoxaparin 40 MG/0.4 ML Syringe SC (08:54)
[2024-11-04 10:54] VITALS: BP 102/61; PULSE 83; RESP 16; TEMP 36.6; O2SAT 97
--- NOTE | 2024-11-04 11:21 | MDS.RN ---
Pain assessment for MDS complete.
[2024-11-04] MEDS: Senna/Docusate Sodium 1 Tablet 2 TABLET PO (21:21)
[2024-11-05 07:02] VITALS: PULSE 76; RESP 16; O2SAT 97
[2024-11-05 08:57] VITALS: BP 104/63; PULSE 106; RESP 16; TEMP 36.3; O2SAT 96
[2024-11-05] MEDS: Magnesium Chloride 64 MG Delay Rel.Tablet 128 MG PO (09:04)
[2024-11-05] MEDS: Multivitamins,Therapeutic Tablet 1 TABLET PO (09:04)
[2024-11-05] MEDS: Folic Acid 1 MG Tablet PO (09:04)
[2024-11-05] MEDS: Pantoprazole Sodium 40 MG Tablet PO (09:05)
[2024-11-05] MEDS: predniSONE 5 MG Tablet PO (09:05)
[2024-11-05] MEDS: Ascorbic Acid 500 MG Tablet PO (09:05)
[2024-11-05] MEDS: Cholecalciferol (Vit D3) 125 MCG CAPSULE (5,000 UNITS) PO (09:05)
[2024-11-05] MEDS: traMADol 50 MG Tablet PO (09:05)
[2024-11-05] MEDS: TOFACITINIB CITRATE 5 MG PO (09:06)
== END 2024-11-05 12:16 | disposition home health service (06) | DRG 547 ==
PROVIDERS: Admitting Provider Family Medicine Geriatric Medicine; PCP Registered Nurse; Referring Provider Family Medicine Geriatric Medicine; Visit Provider Family Medicine Geriatric Medicine
DX: M06.9 Rheumatoid arthritis, unspecified (principal); E55.9 Vitamin D deficiency, unspecified; K21.9 Gastro-esophageal reflux disease without esophagitis; K22.5 Diverticulum of esophagus, acquired; M19.90 Unspecified osteoarthritis, unspecified site; W06.XXXD Fall from bed, subsequent encounter; E83.42 Hypomagnesemia; M81.0 Age-related osteoporosis without current pathological fracture; S40.011D Contusion of right shoulder, subsequent encounter; S70.01XD Contusion of right hip, subsequent encounter; S70.11XD Contusion of right thigh, subsequent encounter; G89.29 Other chronic pain; Z79.899 Other long term (current) drug therapy; Z79.52 Long term (current) use of systemic steroids; Z79.891 Long term (current) use of opiate analgesic
CPT/HCPCS: 36415; 80048; 80053; 80061; 85014; 85018; 85025; 97110; 97116; 97162; 97166; 97530; 97535; 97802; A4216; J9260

== ENCOUNTER → 2024-10-24 | Outpatient (CLI) | payer MEDICARE, SELFPAY ==
--- NOTE | 2024-10-24 11:25 | CT_ITS ---
PROCEDURE: EXTREMITY LOWER WITHOUT CONTRA 10/24/2024 REASON FOR EXAM: RIGHT HIP PAIN TECHNIQUE: EXTREMITY LOWER WITHOUT CONTRA Coronal and Sagittal reconstruction series were provided. CONTRAST: None One or more dose reduction techniques were used (e.g., Automated exposure control, adjustment of the mA and/or kV according to patient size, use of iterative reconstruction technique). RADIATION DOSE SUMMARY: DLP: 485.15 mGycm COMPARISON: October 15 2024 x-ray FINDINGS: There is a total hip prosthesis in position with an intact acetabular component and intact distal femoral component. There is a comminuted fracture of the greater trochanter, similar to the recent x-ray. The included portion of the pelvis appears intact. Calcified fibroids are noted and incompletely visualized. Vascular calcifications are present. There is a trace amount of soft tissue air visible in the proximal lateral thigh at the level of the distal aspect of the prosthesis, which may represent recent injection or laceration. CT/Extremity Lower without Contra IMPRESSION: There is a total hip prosthesis in position with an intact acetabular component and intact distal femoral component. There is a comminuted fracture of the greater trochanter, similar to the recent x-ray, with no visible bridging callus. There is a trace amount of soft tissue air visible in the proximal lateral thig h at the level of the distal aspect of the prosthesis, which may represent recent injection or laceration. Reading Location: [place]
== END | disposition home or self-care (01) ==
PROVIDERS: PCP Registered Nurse; Referring Provider Family Medicine Geriatric Medicine; Visit Provider Family Medicine Geriatric Medicine
DX: M25.551 Pain in right hip (principal)
CPT/HCPCS: 73700

== ENCOUNTER → 2024-12-29 | Outpatient (CLI) | payer MEDICARE, SELFPAY ==
--- NOTE | 2024-12-29 12:56 | RAD_ITS ---
PROCEDURE: THORACIC SPINE 2 VIEWS 12/29/2024 REASON FOR EXAM: SPONDYLOSIS WITHOUT MYELOPATHY OR RADICULOPATHY, CERVICAL REGION TECHNIQUE: THORACIC SPINE 2 VIEWS COMPARISON: 07/05/2024 FINDINGS: BONES: Chronic vertebral plana type compression deformities of the T7 and T8 vertebral bodies, status post vertebroplasty at T7. Chronic mild superior compression deformity of the T9 vertebral body. No acute fracture or focal osseous lesion. Anatomic spinal alignment. Generalized osteopenia. S shaped thoracolumbar scoliosis with prominent thoracic kyphosis. Extensive degenerative changes in the lumbar spine. DISC/DEGENERATIVE CHANGES: Mild disc space narrowing at multiple levels. SOFT TISSUES: No acute abnormality seen. RAD/Thoracic Spine 2 Views IMPRESSION: 1. No acute osseous abnormality seen. 2. Chronic T7, T8 and T9 vertebral body compression deformities as above. Reading Location: [id number]
--- NOTE | 2024-12-29 12:56 | RAD_ITS ---
PROCEDURE: CERV SPINE 2 OR 3 VIEWS 12/29/2024 REASON FOR EXAM: SPONDYLOSIS WITHOUT MYELOPATHY OR RADICULOPATHY, CERVICAL REGION TECHNIQUE: CERV SPINE 2 OR 3 VIEWS COMPARISON: 09/15/2024 FINDINGS: BONES: No fracture or focal osseous lesion. Grade 1 anterolisthesis of C7 on T1. Generalized decrease in bone density. DISC/DEGENERATIVE CHANGES: C3-C4 to C6-C7 disc space narrowing again seen, greatest at C6-C7. Small vertebral endplate osteophytes at a few levels. Multilevel facet arthropathy. SOFT TISSUES: No acute abnormality seen. RAD/Cerv Spine 2 or 3 Views IMPRESSION: 1. No acute osseous abnormality. 2. Spondylosis and degenerative disc disease, without significant interval franco nge. Reading Location: [id number]
== END | disposition home or self-care (01) ==
LOC: RAD 12:55
PROVIDERS: PCP Registered Nurse; Referring Provider Anesthesiology Pain Medicine; Visit Provider Anesthesiology Pain Medicine
DX: M47.812 Spondylosis without myelopathy or radiculopathy, cervical region (principal)
CPT/HCPCS: 72040; 72070

== ENCOUNTER 2025-04-13 11:28 | Emergency (ER) | payer MEDICARE, SELFPAY ==
[2025-04-13 11:29] VITALS: BP 155/96; PULSE 89; RESP 18; TEMP 36.6; O2SAT 99
--- NOTE | 2025-04-13 11:52 | CT_ITS ---
PROCEDURE: ABDOMEN/PELVIS WITHOUT CONT 04/13/2025 REASON FOR EXAM: LEFT SIDED FLANK PAIN TECHNIQUE: Procedure Code: [id number] Modality: CT Procedure: ABDOMEN/PELVIS WITHOUT CONT Noncontrast technique limits evaluation of the abdominal and pelvic viscera. Coronal and Sagittal reconstruction series were provided. One or more dose reduction techniques were used (e.g., Automated exposure control, adjustment of the mA and/or kV according to patient size, use of iterative reconstruction technique). COMPARISON: Thoracic spine x-ray 12/29/2024 FINDINGS: Lung bases: Mild dependent atelectasis Liver: Normal size. No obvious mass. Gallbladder: Surgically absent. Spleen: Normal size. Pancreas: Normal size. No surrounding inflammation. Adrenals: No adrenal masses. Kidneys: No urolithiasis. No hydronephrosis. Bladder: Unremarkable. Reproductive Organs: Calcified uterine fibroids. Stomach/duodenum: Moderate hiatal hernia. Bowel: No bowel obstruction. No inflammatory changes. Moderate colonic stool burden suggesting constipation. Appendix: The appendix is not identified. There is no inflammatory process identified in the right lower quadrant to suggest appendicitis. Lymph nodes: Unremarkable. Vasculature: Moderate atherosclerotic calcifications. Peritoneum / Retroperitoneum: No free fluid or air. Bones: Moderate degenerate changes of the visualized spine. Chronic compression deformity of T11 with approximately 50% height loss. Grade 1 retrolisthesis of L5 on L4 by approximately 7 mm. Right hip arthroplasty. CT/Abdomen/Pelvis without Cont IMPRESSION: 1. No acute findings in the abdomen or pelvis. 2. Moderate hiatal hernia. 3. Colonic stool burden suggesting constipation. 4. Chronic compression deformity of T11 with 50% height loss. 5. Grade 1 retrolisthesis of L5 on L4 by 7 mm. Reading Location: [facility]
--- NOTE | 2025-04-13 11:54 | EDS_ITS ---
HPI History of Present Illness Chief Complaint: Back Narrative Narrative: Patient is a 84-year-old female presenting to the emergency department for left- sided back pain for the past week. Patient has a past medical history of rheumatoid arthritis on methotrexate, chronic back pain on tramadol and pain patches, PACs, PVCs, mitral valve prolapse, chronic diarrhea. Patient states that years ago she had severe back pain daily but actually had a fall 2 years ago that improved her back pain. She states that she is on tramadol and pain patches daily for back pain. States that over the past week she has had significantly worsening back pain that feels different. She states it is left- sided. It worsens with turning or bending motions. States that it is constant. She denies any recent falls or trauma to the back that could have worsened this. Denies any chest pain or shortness of breath that is new. Denies any abdominal pain that is new. Denies any numbness or weakness in her legs. Denies any saddle anesthesia, bowel or bladder incontinence or retention, IV drug use, fevers, chills, diabetes, recent weight loss. She is not on any daily steroid therapy. She denies any dysuria or hematuria. States she does have a past history of kidney stones but this was years ago and feels different. [facility] Medical History Inability to ambulate due to knee Inability to ambulate due to hip Injury due to fall Contusion of right hip and thigh Debility History of fall Zenkers diverticulum Back pain Kidney stones Irregular heart beat Closed head injury Fracture of hip, right, closed Wears glasses Wears contact lenses Post-menopausal History of steroid therapy Arthritis Rheumatoid arthritis Easy bruising Injury of back Back pain History of hiatal hernia Gastric reflux Sleep apnea History of pain when walking Normal stress echocardiogram Cardiology follow-up encounter History of irregular heartbeat MVP (mitral valve prolapse) Premature ventricular contraction Premature atrial contraction Supraventricular tachycardia Home Medications ?Medication ?Instructions ?Recorded ?Last Taken ?Type prednisone 5 mg tablet 5 mg PO DAILY Check with nikko urena 11/29/13 03/07/24 History doctor alendronate 70 mg tablet (Fosamax) 70 mg PO QWEEK Che k with [facility] 11/10/18 03/02/24 History doctor folic acid 400 mcg tablet 0.8 mg PO DAILY@0800 Supplem ent 11/10/18 03/07/24 History multivitamin 3 tab PO DAILY Supplement 03/07/24 History tofacitinib 5 mg tablet (Xeljanz) 5 mg PO BID Check wi th primary 06/25/21 03/08/24 History doctor ascorbic acid (vitamin C) 500 mg 500 mg PO DAILY Suppl ement 05/27/22 03/07/24 History capsule cholecalciferol (vitamin D3) 50 125 mcg PO DAILY Suppl ement 03/17/23 03/07/24 History mcg (2,000 unit) capsule buprenorphine 5 mcg/hour weekly 1 patch transdermal QW HUGHES pain 03/15/24 Unknown History transdermal patch (Butrans) tramadol 50 mg tablet 50 mg PO BID pain 03/15/24 U nknown History pantoprazole 40 mg tablet,delayed 40 mg PO BID acid re flux #60 tabs 03/29/24 Unknown Rx release magnesium 200 mg tablet 400 mg PO BID supplement 12/02 Unknown History acetaminophen 500 mg tablet 1,000 mg (2 x 500 mg) PO Q 6H PRN 11/02/24 Unknown Rx PRN Pain Score 1-3 #0 tabs methotrexate sodium (PF) 25 mg/mL 18.75 mg (0.75 mL) I M TH #0 mL 11/02/24 Unknown Rx injection solution lidocaine 5 % topical patch 1 patch topical DAILY #15 ea 04/13/25 Unknown Rx (Lidoderm) Allergy/AdvReac Type Severity Reaction Status Date / Time amoxicillin trihydrate (From Allergy Intermediate Rash Verified 04/13/25 11:31 Trimox) Penicillins Allergy Swelling Verified 04/13/25 11:31 Family History Father CAD (coronary artery disease) CVA (cerebral vascular accident) Hypertension Heart disease Brother CAD (coronary artery disease) Mother Osteoporosis Surgical History History of Zenker's diverticulum removal History of esophagogastroduodenoscopy (EGD) History of right hip hemiarthroplasty History of removal of ovarian cyst History of incisional hernia repair Hx of kyphoplasty History of cardiac radiofrequency ablation (~2000) Hx of cataract surgery Hx of hernia repair H/O total knee replacement Social History household members: family and other details: Grandson lives with her, but he works weekdays. Smoking Status: Never smoker alcohol intake: never substance use type: does not use what type of physical activity do you participate in: none ROS ROS ED ROS Narrative See HPI EXAM Physical Exam Narrative Exam Narrative: Vital signs: Reviewed General: Alert and oriented x 3. No acute distress. Chronically ill-appearing, nontoxic. HEENT: Head is normocephalic and atraumatic, sinuses nontender, pupils equal round and reactive. Nares are patent. Oropharynx and throat exams normal. Neck: Supple without lymphadenopathy nontender Cardiovascular: Regular rate and rhythm, no murmurs. No rubs or gallops. Normal S1 and S2 Respiratory: Clear to auscultation bilaterally. No wheezes, rales, rhonchi Abdominal: Soft and nontender. Normal bowel sounds. No guarding or rebound. Nonsurgical abdomen Back: No midline cervical, thoracic or lumbar spinal tenderness to palpation. No step-offs or deformities. No rashes, erythema or ecchymosis to the back. There is left paraspinal thoracic tenderness to palpation. Extremities: No tenderness. No bruising. Normal range of motion. Normal sensation. Skin: No rash or redness. Neurological: Cranial nerves II through XII are grossly intact. Normal strength and sensation in bilateral lower extremities. Normal cerebellar function The rest of the physical exam is unremarkable Const Vital Signs: 04/13/25 11:29 04/13/25 14:26 04/13/25 14:34 Temperature 97.8 F 99 F Temperature Source Oral Pulse Rate 89 67 98 Respiratory Rate 18 13 18 Blood Pressure 155/96 H 148/86 H 134/63 H Blood Pressure Mean 115 106 86 Pulse Ox 99 96 99 Oxygen Delivery Method Room Air MDM MDM MDM Narrative Medical decision making narrative: Patient is a 84-year-old female presenting to the emergency department for left- sided back pain for the past week. Patient was seen and examined. Vitals are stable. Patient resting in bed comfortably no acute distress. Differential includes but is not limited to: Musculoskeletal back pain, nephrolithiasis, pyelonephritis, UTI Patient given Toradol and a Lidoderm patch was placed. Patient states she took Tylenol and tramadol this morning for pain control. She has no midline back pain on exam all of the pain is left mid thoracic paraspinal. This is also very similar to CVA tenderness to palpation. With the patient stating that it worsens with any bending or twisting movements I think this is likely musculoskeletal but given her age I will rule out nephrolithiasis or pyelonephritis with a CT scan, basic labs and urinalysis. Do not think patient needs any imaging of her vertebrae or spinal cord, has no red flag back pain signs and has no midline tenderness on exam. Had no trauma to her back. CBC with no leukocytosis and chronic anemia of 11.6?improved from baseline. BMP with no significant abnormalities. Urinalysis with no evidence of urinary tract infection. CT abdomen pelvis shows no acute findings in the abdomen or pelvis. Moderate hiatal hernia. Colonic stool burden suggesting constipation. Chronic compression deformity of T11 with 50% height loss. Grade 1 retrolisthesis of L5 on L4. Patient and daughter updated on the negative workup. With the negative findings I do think it is musculoskeletal in nature. Recommended Motrin and Tylenol at home for pain control as well as Lidoderm patch and Flexeril as needed. I explained that the Flexeril can cause GI upset and lightheadedness/dizziness. Patient ambulated here without difficulty. Patient discharged from the Emergency Department. I do not feel that the patient's evaluation reveals any acute reason for admission at this time. I instructed them to either follow-up with their primary care physician or promptly return to the Emergency Department for reevaluation should symptoms worsen or new symptoms develop. I explained what symptoms would indicate the need to return to the emergency department. Shared decision making was used. The patient voiced u nderstanding of the treatment plan and is agreeable with it. Clinical impression Musculoskeletal back pain History & Record Review Discussion w/independent historian: Patient and Family Lab Data Attestation: I reviewed the patient's lab results. Labs: Laboratory Results - last 24 hr 04/13/25 04/13/25 11:58 13:40 WBC 8.7 RBC 3.76 L Hgb 11.6 L Hct 37.6 MCV 100.0 H MCH 30.9 MCHC 30.9 L RDW Std Deviation 57.1 H RDW Coeff of Eusebio 15.7 H Plt Count 334 MPV 11.3 Immature Gran % (Auto) 0.800 Neut % (Auto) 80.9 H Lymph % (Auto) 5.7 L [place] % (Auto) 11.1 H Eos % (Auto) 0.8 Baso % (Auto) 0.7 Absolute Neuts (auto) 7.1 Absolute Lymphs (auto) 0.50 L Nucleated RBC % 0 Sodium 142 Potassium 4.0 Chloride 104 Carbon Dioxide 29.2 Anion Gap 9 BUN 20 H Creatinine 0.92 Estim Creat Clear Calc 34.49 L Est GFR (MDRD) Non-Af 61 BUN/Creatinine Ratio 21.6 H Glucose 97 Calcium 9.6 Urine Color Yellow Urine Clarity Clear Urine pH 7.0 Ur Specific Pooler 1.015 Urine Protein 15 H Urine Glucose (UA) Normal Urine Ketones Negative Urine Occult Blood Negative Urine Nitrite Negative Urine Bilirubin Negative Urine Urobilinogen Normal Ur Leukocyte Esterase Negative Urine RBC 0 SEEN Urine WBC 0 SEEN Ur Squamous Epith Cells 0-5 SEEN Urine Bacteria 0 SEEN Urine Mucus 0 SEEN Radiography Diagnostic Testing: Clinical Impression(s) from Imaging Studies Abdomen/Pelvis CT 04/13/25 11:52 IMPRESSION: 1. No acute findings in the abdomen or pelvis. 2. Moderate hiatal hernia. 3. Colonic stool burden suggesting constipation. 4. Chronic compression deformity of T11 with 50% height loss. 5. Grade 1 retrolisthesis of L5 on L4 by 7 mm. Reading Location: [facility] Discharge Plan Triage Chief Complaint: Back ED Provider: Shirley Doshi Dx/Rx/DC Orders Clinical Impression: Musculoskeletal back pain Instructions: ED Back Pain (Acute or Chronic), ED Back Sprain/Strain Prescriptions: New lidocaine [Lidoderm] 5 % adhesive patch,medicated 1 patch topical DAILY Qty: 15 0RF Rx Instructions: leave on most painful area for up to 12 hrs No Action alendronate [Fosamax] 70 mg tablet 70 mg PO QWEEK ascorbic acid (vitamin C) 500 mg capsule 500 mg PO DAILY cholecalciferol (vitamin D3) 50 mcg (2,000 unit) capsule 125 mcg PO DAILY buprenorphine [Butrans] 5 mcg/hour patch weekly 1 patch transdermal QWEEK Patient Comments: pt takes on thursday tramadol 50 mg tablet 50 mg PO BID pantoprazole 40 mg tablet,delayed release (DR/EC) 40 mg PO BID Qty: 60 2RF prednisone 5 MG tablet 5 mg PO DAILY folic acid 400 mcg tablet 0.8 mg PO DAILY@0800 multivitamin Tablet 3 tab PO DAILY Xeljanz 5 mg tablet 5 mg PO BID magnesium 200 mg tablet 400 mg PO BID acetaminophen 500 mg Tablet 1,000 mg PO Q6H PRN PRN (Reason: Pain Score 1-3) Qty: 0 0RF methotrexate sodium (PF) 25 mg/mL Solution 18.75 mg IM TH Qty: 0 0RF Primary Care Provider: Milagros Aguirre NP Referrals: Milagros Aguirre NP, [employer]GER[facility] [Primary Care Provider, Family Practice] - As soon as possible Activity Restrictions/Additional Instructions: Take Tylenol and Motrin for pain control. You can apply a lidocaine patch to your left sided back make sure you remove after 12 hours. You can use heat or ice whichever 1 feels better. Your evaluation in the Emergency Department did not reveal any acute reason for admission. However, I want to emphasize that you may be early in the course of a disease process or illness even if it is not present. For this reason you should follow-up within 24 hours for reevaluation with either your primary care physician or if necessary back here in the [facility]. You should return to the Emergency Department immediately if your symptoms worsen or new symptoms develop. Print Language: Faroese Disposition Disposition: Home, Self Care Discharge Date/Time: 04/13/25 14:35
[2025-04-13 12:10] LABS: Hematocrit 37.6 % (37-47); Hemoglobin 11.6 g/dL (12.0-15.0); Immature Granulocytes Count 0.070 X10^3/uL (0.0-0.0); Mean Corp Hgb Conc 30.9 g/dL (32-36); Mean Corpuscular Volume 100.0 fL (81-99); Mean Platelet Vol. 11.3 fl (6.2-12.0); NRBC Flagged by Analyzer 0 % (0-5); POSITIVE DIFFERENTIAL YES; Platelet Count 334 K/mm3 (150-450); RBC Distribution Width CV 15.7 % (11.6-14.6); RBC Distribution Width SD 57.1 fl (35.1-43.9); Red Blood Count 3.76 M/mm3 (4.2-5.4); White Blood Count 8.7 K/mm3 (4.4-11.0)
[2025-04-13 12:27] VITALS: BMI 24.2
[2025-04-13] MEDS: Lidocaine 5% Patch 1 PATCH TOPICAL (12:32)
[2025-04-13 12:43] LABS: Anion Gap 9 (5-15); BUN 20 mg/dL (4-19); BUN/Creat Ratio 21.6 RATIO (10-20); Calcium,Total 9.6 mg/dL (7.6-11.0); Carbon Dioxide 29.2 mmol/L (21.0-32.0); Chloride 104 mmol/L (98-108); Estimated Creatinine Clearance 34.49 ml/min (50-250); Glucose 97 mg/dL (70-99); Potassium 4.0 mmol/L (3.3-5.1)
[2025-04-13 13:46] LABS: Mucous, Urine 0 SEEN /hpf (<or=2+); Red Blood Cells-Urine 0 SEEN /hpf (0-5)
[2025-04-13 13:51] LABS: Color, Urine Yellow (Yellow); Glucose, Dipstick Normal (Normal); Ketone-Dipstick Negative (Negative); Leukocyte Esterase-Dipstick Negative /ul (Negative); Nitrite-Dipstick Negative (Negative); Occult Blood-Urine Negative /ul (Negative); Protein-Dipstick 15 mg/dl (Negative); Specific Gravity, Urine 1.015 (1.002-1.030); Urine Bilirubin Dipstick Negative (Negative)
[2025-04-13 14:04] LABS: Squamous Epithelial Cells - UA 0-5 SEEN /hpf (5-10)
[2025-04-13 14:26] VITALS: BP 148/86; PULSE 67; RESP 13; O2SAT 96
[2025-04-13 14:34] VITALS: BP 134/63; PULSE 98; RESP 18; TEMP 37.2; O2SAT 99
== END 2025-04-13 14:35 | disposition home or self-care (01) ==
PROVIDERS: Emergency Provider Student in an Organized Health Care Education/Training Program; PCP Registered Nurse; Visit Provider Student in an Organized Health Care Education/Training Program
DX: M54.9 Dorsalgia, unspecified (principal); G89.29 Other chronic pain; Z79.899 Other long term (current) drug therapy
CPT/HCPCS: 74176; 80048; 81001; 85025; 96374; 99285; A4216